=== PATIENT | male | born 1955 | race Caucasian/White ===

== ENCOUNTER 2017-04-17 09:25 | Inpatient (IN) ==
--- NOTE | 2017-04-17 09:52 | Emergency Department Report ---
SOB HPI - General Chief Complaint: Shortness of Breath/Dyspnea Stated Complaint: cp, soa Time Seen by Provider: 04/17/17 09:52 - Related Data Home Medications Medication Instructions Recorded Confirmed Gabapentin 300 mg PO TID #0 cap 06/19/15 04/17/17 Omeprazole 40 mg PO DAILY #0 cap 06/19/15 04/17/17 Albuterol/Ipratropium [Duoneb] 1 unit AEROSOL QID 04/17/17 04/17/17 Aspirin 81 mg PO DAILY 04/17/17 04/17/17 Atenolol [Tenormin] 25 mg PO DAILY 04/17/17 04/17/17 Citalopram [Celexa] 40 mg PO DAILY 04/17/17 04/17/17 Furosemide [Lasix] 20 mg PO DAILY 04/17/17 04/17/17 Hydrocodone/APAP 7.5/325 [[place] 1 tab PO BID 04/17/17 04/17/17 7.5/325] Itraconazole [Itraconazole] 200 mg PO BID 04/17/17 04/17/17 Metformin [Glucophage] 500 mg PO BIDWM 04/17/17 04/17/17 Nitroglycerin [Nitrostat] 0.4 mg SL Q5MIN3 PRN 04/17/17 04/17/17 Simvastatin [Simvastatin] 20 mg PO HS 04/17/17 04/17/17 buPROPion HCl [Bupropion HCl Sr] 150 mg PO BID 04/17/17 04/17/17 Allergies Allergy/AdvReac Type Severity Reaction Status Date / Time No Known Allergies Allergy Verified 04/17/17 10:12 [facility] Patient Stated Medical History Alzheimer's Disease Yes: "early per patient" Angina Yes Coronary Artery Disease Yes Hypertension Yes Myocardial Infarction Yes Chronic Obstructive Pulmonary Yes Disease (COPD) Sleep Apnea Yes Diabetes Mellitus Type 2 Yes Gastroesophageal Reflux Yes Disease Osteoarthritis Yes: DJD Other Musculoskeletal Yes: PERIPHERAL NEUROPATHY, FIBROMYALGIA Course Vital Signs Temperature 98.2 F 04/17/17 09:25 Pulse Rate 112 H 04/17/17 09:25 Respiratory Rate 15 04/17/17 09:25 Blood Pressure 138/92 H 04/17/17 09:25 Pulse Oximetry 68 L 04/17/17 09:25 Temperature 98.2 F 04/17/17 09:25 Pulse Rate 112 H 04/17/17 11:04 Respiratory Rate 27 H 04/17/17 11:04 Blood Pressure 130/69 04/17/17 11:04 Pulse Oximetry 90 04/17/17 11:04 Shortness of Breath/Dyspnea - Lab Data Result diagrams: 04/17/17 10:16 04/17/17 10:15 Lab Results 04/17/17 04/17/17 04/17/17 Range/Units 10:15 10:15 10:16 WBC 9.1 (4.5-11.0) T/MM3 RBC 3.99 L (4.50-5.90) M/MM3 Hgb 12.0 L (13.5-17.5) GM/DL Hct 40.7 L (41-53) % MCV 102.0 H (80-100) UM3 MCH 30.1 (26-34) UUG MCHC 29.5 L (31-37) GM/DL RDW Std Deviation 47.2 (36.9-50.2) FL Plt Count 189 (130-400) T/MM3 MPV 12.8 H (9.4-12.4) UM3 Immature Gran % (Auto) 0.4 (0.0-0.5) % Neut % (Auto) 84.5 H (33-66) % Lymph % (Auto) 8.8 L (23-45) % [place] % (Auto) 5.0 (0-9.0) % Eos % (Auto) 1.1 (0-4) % Baso % (Auto) 0.2 (0-2) % Neut # (Auto) 7.7 (1.8-7.7) T/MM3 Lymph # (Auto) 0.8 L (1-4.8) T/MM3 [place] # (Auto) 0.5 (0-0.8) T/MM3 Eos # (Auto) 0.1 (0-0.5) T/MM3 Baso # (Auto) 0.0 (0-0.2) T/MM3 Abs Immat Gran (auto) 0.04 H (0.00-0.03) T/MM3 D-Dimer 280 H (0-230) NG/ML Turbidity < 20 (0-20) Sodium 143 (134-144) MEQ/L Potassium 4.5 (3.6-5) MEQ/L Chloride 94 L (98-107) MEQ/L Carbon Dioxide 39 H (22-30) MEQ/L Anion Gap 10 (5-15) MEQ/L BUN 28.0 H (9-20) MG/DL Creatinine 0.9 (0.8-1.5) MG/DL GFR Calculation 86 BUN/Creatinine Ratio 31 H (6-26) RATIO Glucose 163 H (75-110) MG/DL Calculated Osmolality 285 H (261-280) MOSM/KG Calcium 9.1 (8.4-10.2) MG/DL Total Bilirubin 0.30 (0.20-1.30) MG/DL Icterus Index < 2 (0-7) AST 17 (17-59) U/L ALT 25 (21-72) U/L Alkaline Phosphatase 89 (38-126) U/L Troponin I 0.025 (0-0.12) ng/ml B-Natriuretic Peptide 253 H (0-175) pg/mL Total Protein 7.4 (6.3-8.2) G/DL Albumin 4.1 (3.5-5.0) G/DL Globulin 3.3 (2.4-3.6) G/DL Albumin/Globulin Ratio 1.2 (1.1-2.2) RATIO Specimen Hemolysis < 15 (0-25) Disposition Clinical Impression: Acute exacerbation of chronic obstructive airways disease Community acquired pneumonia Qualifiers: Laterality: left Lung location: unspecified part of lung Qualified Code(s): J18.9 - Pneumonia, unspecified organism Disposition: Discharged Home, Self-Care Condition: Stable Prescriptions: No Action Gabapentin 300 mg PO TID #0 cap Omeprazole 40 mg PO DAILY #0 cap Hydrocodone/APAP 7.5/325 [[place] 7.5/325] 1 tab PO BID Simvastatin [Simvastatin] 20 mg PO HS Itraconazole [Itraconazole] 200 mg PO BID Nitroglycerin [Nitrostat] 0.4 mg SL Q5MIN3 PRN PRN Reason: CHEST PAIN Albuterol/Ipratropium [Duoneb] 1 unit AEROSOL QID Metformin [Glucophage] 500 mg PO BIDWM Furosemide [Lasix] 20 mg PO DAILY buPROPion HCl [Bupropion HCl Sr] 150 mg PO BID Atenolol [Tenormin] 25 mg PO DAILY Aspirin 81 mg PO DAILY Citalopram [Celexa] 40 mg PO DAILY Referrals: Zak Odom MD [Family Provider] - Time of Disposition: 11:21 - Seen By: physician
[2017-04-17] MEDS ORDERED: ALBUTEROL/IPRATROPIUM 2.5mg-0.5mg/3ml NEB AEROSOL ONE (10:02)
--- OUTSIDE RECORDS SUMMARY | 2017-04-17 10:13 | External Medical Summary | CCD ---
:1955 Author Name JOSSY SEGOVIA Address [address] [facility] [address] [facility] Unavailable [place], [place] [id number] Care Team Providers Name Role Phone AYO SALGUERO Attending Physician Unavailable AYO SALGUERO Er Physician 1 Unavailable Vital Signs Vital Sign Value Unit Date/Time Recent/Initial? Weight Measured 328 lbs 03/07/2015 18:36 Initial VS Height 74 in 03/07/2015 18:36 Initial VS BMI (Body Mass 42.11 kg/m^2 03/07/2015 18:36 Initial VS Index) BSA (Body Surface 2.79 m^2 03/07/2015 18:36 Initial VS Area) Allergies Allergy Code Allergy Type Reaction Status No Known Drug 0 No known drug Active Allergies allergies Procedures Unknown or Not Available. History of Immunizations Unknown or Not Available. Problems Unknown or Not Available. Results Unknown or Not Available. Active Medications Unknown or Not Available. Medications Administered During Visit Unknown or Not Available. Encounters Unknown or Not Available. Social History Smoking Status Code Start Date End Date Current every day [id number] smoker Patient Decision Aids Unknown or Not Available. Discharge Instructions You were admitted to [facility] on 03/07/2015. You were discharged from [facility] on 03/07/2015. Should you have any questions prior to discharge, please contact a member of your healthcare team. If you have left the hospital and have any questions, please contact your primary care physician. Chief Complaint and Reason For Visit Unknown or Not Available. Function Status Unknown or Not Available. Plan of Care Unknown or Not Available. Referral/Transition of Care Unknown or Not Available.
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
--- OUTSIDE RECORDS SUMMARY | 2017-04-17 10:14 | External Medical Summary | Referral Summary ---
:1955 Author Organization [facility] Address [address] [place] [address] Care Team Providers Name Role Phone Zak Odom Primary Care Physician Unavailable Encounter [facility] [id number] Date(s): 03/07/15 - 03/08/15 [facility] [address] [place] [address] [phone] Discharge Disposition: 06-Home with Home Health Care Attending Physician: Oswald Walsh MD Admitting Physician: Oswald Walsh MD Vital Signs Most recent to oldest [Reference Range]: 1 Temperature Oral [35.8-37.3 degC] 36.2 degC (03/07/15 9:51 PM) Temperature Temporal Artery [36.3-37.8 degC] 37 degC (03/08/15 12:00 PM) Peripheral Pulse Rate [60-100 bpm] 101 bpm *HI* (03/07/15 9:51 PM) Heart Rate Monitored [60-100 bpm] 101 bpm *HI* (03/08/15 12:00 PM) Respiratory Rate [14-20 br/min] 16 br/min (03/08/15 8:54 AM) Blood Pressure [90-140/60-90 mmHg] 117/66 mmHg (03/08/15 12:00 PM) Mean Arterial Pressure, Cuff 77 mmHg (03/08/15 12:00 PM) SpO2 95 % (03/08/15 12:00 PM) Problem List Condition Effective Dates Status [...] At Risk for Activity Intolerance Plan of [id number] added automatically by system based on initiation of Risk for Injury Plan of [id number] added automatically by system based on initiation of Cardiac Output/Ineffective Cardiac Perfusion Plan of Alzu4Prkcumt added automatically by system based on initiation of Impaired Gas Exchange Plan of Otcn2Aqyjrgg added automatically by system based on initiation of Impaired Skin Integrity Plan of [id number] IN LEG [id number] added automatically by system based on initiation of Knowledge Deficit Plan of [id number] added automatically by system based on initiation of Self Care Deficit Plan of [id number] added automatically by system based on initiation [...] Refill(s) Start Date: 10/08/14 Status: Ordered Results Chemistry Most recent to oldest [Reference Range]: 1 Blood Glucose, Capillary [74-106 mg/dL] 179 mg/dL *HI* (03/08/15 10:18 AM) Immunizations No data available for this section Procedures Procedure Date Related Diagnosis Body Site Removal of pilonidal cyst Social History Social History Type Response Smoking Status Current every day smoker; Type: Cigarettes; Tobacco use per day : 1 Pack Assessment and Plan No data available for this section
--- NOTE | 2017-04-17 11:02 | XRay Report ---
INDICATION: Chest Pain PROCEDURE: CHEST 2-VIEWS UPRIGHT (PA & LAT) Encounter: Initial COMPARISON: June 25, 2015 FINDINGS: There is airspace opacity along the left heart border possibly within the lingula. This is difficult to confirm on the lateral view. The right lung appears clear. There is no pleural effusion or pneumothorax. The heart size, mediastinal contours and pulmonary vascularity are within normal limits. There is no significant skeletal abnormality. IMPRESSION: Lingular atelectasis or pneumonia. .
[2017-04-17] MEDS: CEFTRIAXONE 1 G in NS 100 ML IV SCH (11:38)
[2017-04-17] MEDS: SALINE FLUSH 10ml SYRINGE IVF PRN (11:39)
[2017-04-17] MEDS ORDERED: ALBUTEROL/IPRATROPIUM 2.5mg-0.5mg/3ml NEB AEROSOL PRN (12:03)
[2017-04-17] MEDS ORDERED: BISACODYL 10 MG SUPPOSITORY RECTALLY PRN (12:03)
[2017-04-17] MEDS ORDERED: ONDANSETRON 4 MG/2 ML INJECTION IVP PRN (12:03)
[2017-04-17] MEDS ORDERED: MENTHOL COUGH DROPS (RICOLA) MM PRN (12:03)
--- NOTE | 2017-04-17 12:13 | History & Physical Report ---
History of Present Illness Date: 04/17/17 Chief complaint: Sepsis, Pneumonia, COPD HPI: Chaz is a 61 yr old male who has been under the [place] care of Dr. Biswas. Patient has underlying COPD and chronically uses oxygen at 5 liters. He reports he has not felt well for approximately 1 month,however he has become acutely more short of breath over the last several days. He's noticed things "flying in his vision" accompanied with his increased shortness of breath. He feels at times he has had fevers and chills, however, cannot confirm this. Today he presented to the emergency room for acute evaluation and treatment. He was tachycardic on arrival to ER at 112, and tachypnea at 35 breathes per min. He was hypoxic and quite greater than 5 liters to maintain saturations. Initially was at 90% on 6 liters, however, then was placed on BiPAP. Chest xray revels lingular airspace opacity. ABG on 6 liters-pH 7.3, CO2 Ewy, pCO2 59, bicarbonate 46. Initial lactate was normal at 1.4. WBC count normal at 9.1, 84% neutrophils. Given worsening SIRS criteria , accompanied with increased hypoxia from baseline and probable pneumonia. The hospitalist services were contacted and accepted patient for inpatient admission for further evaluation and treatment. He requests to be a Full Code. Review of Systems All systems PM: 10-point ROS was reviewed, no additional remarkable complaints except - Constitutional Constitutional: Present: chills, fever(s) - EENMT Eyes: Present: as per HPI - Cardiovascular Cardiovascular: Present: dyspnea on exertion - Respiratory Respiratory: Present: dyspnea Past Medical History COPD-baseline oxygen 5 liters chronically Sol-bqnfagg-dcuxtorwz diabetes Hypertension Coronary artery disease Peripheral vascular disease GERD Peripheral neuropathy Fibromyalgia Sleep apnea Morbid obesity Surgical History: No surgical hx other than pilonidal cyst Family History Updates: Mother and siblings with CVA. Father from an CA - Social History Smoking status: Current every day smoker Substance use type: does not use Alcohol intake frequency: does not drink Household members: spouse Current residence: Apartment/Private Home Social history: Primary care provider, Dr. Ricardo Odom Medications Home Medications Medication Instructions Recorded Confirmed Type Gabapentin 300 mg PO TID #0 cap 06/19/15 04/17/17 History Omeprazole 40 mg PO DAILY #0 cap 06/19/15 04/17/17 History Albuterol/Ipratropium [Duoneb] 1 unit AEROSOL QID 04/17/17 04/17/17 History Aspirin 81 mg PO DAILY 04/17/17 04/17/17 History Atenolol [Tenormin] 25 mg PO DAILY 04/17/17 04/17/17 History Citalopram [Celexa] 40 mg PO DAILY 04/17/17 04/17/17 History Furosemide [Lasix] 20 mg PO DAILY 04/17/17 04/17/17 History Hydrocodone/APAP 7.5/325 [[place] 1 tab PO BID 04/17/17 04/17/17 History 7.5/325] Itraconazole [Itraconazole] 200 mg PO BID 04/17/17 04/17/17 History Metformin [Glucophage] 500 mg PO BIDWM 04/17/17 04/17/17 History Nitroglycerin [Nitrostat] 0.4 mg SL Q5MIN3 PRN 04/17/17 04/17/17 History Simvastatin [Simvastatin] 20 mg PO HS 04/17/17 04/17/17 History buPROPion HCl [Bupropion HCl Sr] 150 mg PO BID 04/17/17 04/17/17 History Allergies Allergy/AdvReac Type Severity Reaction Status Date / Time No Known Allergies Allergy Verified 04/17/17 10:12 Exam Vital Signs: Temperature 98.2 F 04/17/17 09:25 Pulse Rate 112 H 04/17/17 11:04 Respiratory Rate 27 H 04/17/17 11:04 Blood Pressure 130/69 04/17/17 11:04 Pulse Oximetry 90 04/17/17 11:04 - Constitutional Present: mild distress, well nourished, well developed - Routine HEENT Exam Eye: Present: EOMI ENT: Present: mucous membranes moist, dentition normal - Routine Respiratory Exam Present: diminished air movement - Routine Cardiovascular Exam Present: RRR, S1, S2. Absent: murmur - Routine Abdominal Exam Present: soft, normoactive bowel sounds, non distended. Absent: tenderness - Routine Extremities Exam Present: edema - Routine Skin Exam Present: intact, dry, warm - Routine Neurological Exam Present: alert, oriented X3, CN II-XII intact, moving all extremities - Routine Psychiatric Exam Present: cooperative Results - Labs CBC & Chem 7: 04/17/17 10:16 04/17/17 10:15 Microbiology Results: Microbiology 04/17/17 11:23 Peripheral/Iv Start Blood Culture - Preliminary Culture Initiated - Results Pending 04/17/17 11:27 Peripheral/Iv Start Blood Culture - Preliminary Culture Initiated - Results Pending Assessment and Plan (1) Sepsis Current visit: Yes Status: Acute (2) Community acquired pneumonia Current visit: Yes Status: Acute Assessment and Plan: Impression Sepsis- SIRS criteria- Tachycardia, tachypnea, suspected pneumonia Community acquired pneumonia Hypercapnic/Hypoxic respiratory failure -baseline 5 liters, now requiring > 6L + BiPAP COPD exacerbation HTN DM Coronary artery disease Peripheral vascular disease/neuropathy GERD Fibromyalgia Tobacco dependence Morbid obesity Plan Admit as a inpatient under the care of Dr Lopez for sepsis, CAD and increased hypoxia Sepsis work up initiated in the ER. Initial Lactate was normal. Blood cultures were obtained and he was started on Rocephin for antimicrobial coverage. Will also add IV Azithromycin to cover CAP. Scheduled Duoneb and Pulmicort Nebs scheduled Given ABG and presence of Hypercapnic respiratory failure requiring greater than [address] patient on Bi-pap. May use Ativan as needed with bipap. Obtain respiratory panel to rule out respiratory viruses Monitor on cardiac telemetry given tachycardia Monitor Accu-Cheks, encourage carb consistent diet. Will obtain a hemoglobin A1c on admission Lovenox and SCDs to bilateral lower ext for DVT prophylaxis Check CBC and BMP tomorrow morning to follow blood counts, renal function and electrolytes Patient does wish to be a full code and this orders written Case discussed with attending, Dr. Lopez. At time of discharge medical care will return to primary care provider, Dr. Biswas DVT Prophylaxis: SCD's, Lovenox Resuscitation Status: Full Code - Physician Narrative Physician: Michael Lopez MD Narrative: Date: 04/17/17 Time: 1520 Have independently interviewed and examined pt. Chart reviewed. Case discussed with ED physician and my [employer]. Care plan developed with my supervision; agree with above. Increasing difficulty breathing since [place], very somnolent and not able to interact with others. Resistant at that time to be evaluated. Still having significant cough and congestion, sputum thick and hard to clear. Not getting air in well. Increased nasal congestion. Appetite stable. No diarrhea-stools slow at times. With persistent breathing difficulty, present to ED. CXR showing pneumonia. pCO2 elevated. Patient admitted for respiratory treatment. Lungs: decreased, very little air movement. CV: regular AB: soft obese BS decreased MSE: somnolent, will answer short questions. Plan: Inpatient admission secondary to acute hypercapnic/hypoxic respiratory failure. BIPAP to help respiratory support. Rocephin/azithromycin for pulm coverage of infiltrate. Solu-Medrol to help decrease pulmonary inflammation and reactivity. Neb treatments of DuoNeb and budesonide. Mucinex DM and acapella. Will consult with Dr Ashby for pulmonary evaluation as likely patient would benefit from home ventilatory. Monitor sugars - anticipate elevation due to steroids and his acute illness. SCD and Lovenox for DVT prevention. Monitor lab. Care to return to Dr Odom at time of discharge from [facility]. Hospital Course Summary Disclaimer: The visit summary below is not to be considered part of the above Progress Note. Hospital Course: Impression Sepsis- SIRS criteria- Tachycardia, tachypnea, suspected pneumonia Community acquired pneumonia Hypercapnic respiratory failure -baseline 5 liters, now requiring > 6L + BiPAP COPD exacerbation HTN DM Coronary artery disease Peripheral vascular disease/neuropathy GERD Fibromyalgia Tobacco dependence Morbid obesity Plan Admit as a inpatient under the care of Dr Lopez for sepsis, CAD and increased hypoxia Sepsis work up initiated in the ER. Initial Lactate was normal. Blood cultures were obtained and he was started on Rocephin for antimicrobial coverage. Will also add IV Azithromycin to cover CAP. Scheduled Duoneb and Pulmicort Nebs scheduled Given ABG and presence of Hypercapnic respiratory failure requiring greater than [address] patient on Bi-pap. May use Ativan as needed with bipap. Obtain respiratory panel to rule out respiratory viruses Monitor on cardiac telemetry given tachycardia Monitor Accu-Cheks, encourage carb consistent diet. Will obtain a hemoglobin A1c on admission Lovenox and SCDs to bilateral lower ext for DVT prophylaxis Check CBC and BMP tomorrow morning to follow blood counts, renal function and electrolytes Patient does wish to be a full code and this orders written Case discussed with attending, Dr. Lopez. At time of discharge medical care will return to primary care provider, Dr. Biswas
[2017-04-17 12:19] VITALS: BMI 40.2
[2017-04-17] MEDS ORDERED: FALL RISK - PHARMACY CONSULT MC ONE (12:19)
[2017-04-17] MEDS: ENOXAPARIN 40 MG/0.4 ML INJECTION SQ SCH (12:50)
[2017-04-17] MEDS: AZITHROMYCIN IV 500 MG in NS 250ml 250 ML IV SCH (13:16)
[2017-04-17] MEDS: ALBUTEROL/IPRATROPIUM 2.5mg-0.5mg/3ml NEB AEROSOL SCH (14:58)
[2017-04-17] MEDS ORDERED: MORPHINE SULFATE 2mg INJECTION IVP PRN (15:33)
[2017-04-17] MEDS: METHYLPREDNISOLONE SOD SUCC 125mg/2ml INJECTION IVP SCH ×2 (16:21→20:58)
[2017-04-17] MEDS: GABAPENTIN 300 MG CAPSULE PO SCH ×2 (16:21→20:58)
--- NOTE | 2017-04-17 18:28 | Pulmonology Consult Note ---
<SandraAriane D - Last Filed: 04/17/17 18:29> History of Present Illness Consult date: 04/17/17 Requesting physician: Michael Lopez Reason for consult: dyspnea, hypoxemia Chief complaint: SOB, CP History of present illness: This is a 61 yo male with a Hx of COPD uses O2 at 5L per NC, ANGELLA, DM and morbid obesity who is very noncompliant in his therapies. Family states he has not been feeling well for the past month but noticed increased SOB, CP and sleepiness here recently. Family states he has been having some hallucinations lately and more sleepy. He presented to the [facility] ER secondary to his complaints. On admit he was noted with hypoxia, tachycardia and was tachypneic. O2 increased to 6L but was started on Bipap for ABG of 7.37/80/59. WBC normal 9.1, Cr normal 0.9, CXR with LLL infiltrate, cardiomegaly and congestion. Currently he is on the floor and refuses to use bipap and has been noncompliant with most therapies. We have been consulted for his respiratory failure and appreciate the consult. Review of Systems - Constitutional Constitutional: Present: fatigue - EENT Eyes: Present: as per HPI Ears: Present: as per HPI Nose: Present: as per HPI - Cardiovascular Cardiovascular: Present: chest pain - Respiratory Respiratory: Present: cough, dyspnea - Gastrointestinal Gastrointestinal: Present: as per HPI - Genitourinary Genitourinary: Present: as per HPI - Musculoskeletal Musculoskeletal: Present: as per HPI - Integumentary/Breasts Integumentary: Present: as per HPI - Neurological Neurological: Present: as per HPI - Psychiatric Psychiatric: Present: as per HPI - Endocrine Endocrine: Present: as per HPI - Hematologic/Lymphatic Hematologic/Lymphatic: Present: as per HPI - Allergic/Immunologic Allergic/Immunologic: Present: as per HPI PFS Patient Stated Medical History Alzheimer's Disease Yes: "early per patient" Angina Yes Coronary Artery Disease Yes Hypertension Yes Myocardial Infarction Yes Chronic Obstructive Pulmonary Yes Disease (COPD) Sleep Apnea Yes Diabetes Mellitus Type 2 Yes Gastroesophageal Reflux Yes Disease Osteoarthritis Yes: DJD Other Musculoskeletal Yes: PERIPHERAL NEUROPATHY, FIBROMYALGIA Surgical History: No surgical hx other than pilonidal cyst - Social History Smoking status: Current every day smoker Housing: house Household members: spouse Current residence: Apartment/Private Home Medications Home Medications Medication Instructions Recorded Confirmed Type Gabapentin 300 mg PO TID #0 cap 06/19/15 04/17/17 History Omeprazole 40 mg PO DAILY #0 cap 06/19/15 04/17/17 History Albuterol/Ipratropium [Duoneb] 1 unit AEROSOL QID 04/17/17 04/17/17 History Aspirin 81 mg PO DAILY 04/17/17 04/17/17 History Atenolol [Tenormin] 25 mg PO DAILY 04/17/17 04/17/17 History Citalopram [Celexa] 40 mg PO DAILY 04/17/17 04/17/17 History Furosemide [Lasix] 20 mg PO DAILY 04/17/17 04/17/17 History Hydrocodone/APAP 7.5/325 [[place] 1 tab PO BID 04/17/17 04/17/17 History 7.5/325] Itraconazole [Itraconazole] 200 mg PO BID 04/17/17 04/17/17 History Metformin [Glucophage] 500 mg PO BIDWM 04/17/17 04/17/17 History Nitroglycerin [Nitrostat] 0.4 mg SL Q5MIN3 PRN 04/17/17 04/17/17 History Simvastatin [Simvastatin] 20 mg PO HS 04/17/17 04/17/17 History buPROPion HCl [Bupropion HCl Sr] 150 mg PO BID 04/17/17 04/17/17 History Allergies Allergy/AdvReac Type Severity Reaction Status Date / Time No Known Allergies Allergy Verified 04/17/17 10:12 Exam Vital signs: Temperature 97.5 F 04/17/17 11:48 Pulse Rate 104 H 04/17/17 15:46 Respiratory Rate 22 04/17/17 15:46 Blood Pressure 141/62 H 04/17/17 12:00 Pulse Oximetry 92 04/17/17 15:46 - Constitutional no acute distress, morbidly obese - Routine HEENT Exam Head: Present: normocephalic, atraumatic Eye: Present: EOMI, PERRL ENT: Present: mucous membranes moist - Routine Neck Exam Present: supple, full ROM, trachea midline - Routine Respiratory Exam Present: decreased breath sounds, rhonchi - Routine Cardiovascular Exam Present: RRR, S1, S2, no murmur - Routine Abdominal Exam Present: soft, normoactive bowel sounds - Routine Extremities Exam Present: no edema, non tender, full ROM - Routine Back/Spine/Pelvis Exam Back/Spine: Present: full ROM - Routine Skin Exam Present: intact, dry - Routine Neurological Exam Present: CN II-XII intact sleepy but wakes and answers questions to voice - Routine Psychiatric Exam Present: normal affect, normal thought process Results - Laboratory Findings CBC and BMP: 04/17/17 10:16 04/17/17 10:15 ABG ABG pH 7.370 (7.350-7.450) 04/17/17 10:30 ABG pCO2 80 MMHG (34-45) H* 04/17/17 10:30 ABG pO2 59 MMHG (80-100) L 04/17/17 10:30 ABG O2 Saturation 89.0 % (95.0-98.0) L 04/17/17 10:30 PT/INR, D-dimer D-Dimer 280 NG/ML (0-230) H 04/17/17 10:15 Abnormal lab findings: Abnormal Labs 04/17/17 16:16 Plasma Lactate 3.0 H - Diagnostic Findings Chest x-ray: image reviewed (as noted in HPI) Assessment and Plan - Assessment and Plan Acute on Chronic Hypoxic Hypercapnic Respiratory Failure COPD exacerbation CAP ANGELLA/OHS Morbid Obesity DM Pt currently on 6L O2 per [place], sats stable. Wanting pressures decreased to tarik Bipap. Changed bipap to 16 10/5, Vt 400's. Instructed to use unless eating, if unable to comply needs to use at least 4 hrs tonight. Cont on Bt's with pulmicort BID, A/A QID and solumedrol 125 q6. CXR with LLL infiltrate on Rocephin/azithro for CAP. Will follow closely, would likely need a home vent to mask at discharge but wont order unless he will comply with usage. - Time Spent With Patient Total time spent is greater than 50% in coordination of care (as documented) at patient's floor/unit and/or counseling patient: less than 15 minutes <Donny Ashby - Last Filed: 04/18/17 18:26> [facility] Patient Stated Medical History Alzheimer's Disease Yes: "early per patient" Angina Yes Coronary Artery Disease Yes Hypertension Yes Myocardial Infarction Yes Chronic Obstructive Pulmonary Yes Disease (COPD) Sleep Apnea Yes Diabetes Mellitus Type 2 Yes Gastroesophageal Reflux Yes Disease Osteoarthritis Yes: DJD Other Musculoskeletal Yes: PERIPHERAL NEUROPATHY, FIBROMYALGIA Exam Vital signs: Temperature 97.8 F 04/18/17 15:21 Pulse Rate 103 H 04/18/17 15:21 Respiratory Rate 20 04/18/17 15:21 Blood Pressure 138/71 04/18/17 15:21 Pulse Oximetry 94 04/18/17 15:21 Results - Laboratory Findings CBC and BMP: 04/18/17 05:09 04/18/17 05:09 ABG ABG pH 7.370 (7.350-7.450) 04/17/17 10:30 ABG pCO2 80 MMHG (34-45) H* 04/17/17 10:30 ABG pO2 59 MMHG (80-100) L 04/17/17 10:30 ABG O2 Saturation 89.0 % (95.0-98.0) L 04/17/17 10:30 PT/INR, D-dimer D-Dimer 280 NG/ML (0-230) H 04/17/17 10:15 Abnormal lab findings: Abnormal Labs 04/17/17 04/18/17 04/18/17 16:16 05:09 05:09 RBC 3.72 L Hgb 11.3 L Hct 36.8 L MCHC 30.7 L MPV 13.5 H Neutrophils % (Manual) 87.0 H Lymphocytes % (Manual) 10.0 L Lymphocytes # (Manual) 0.6 L Carbon Dioxide 38 H BUN 25.0 H Creatinine 0.7 L D BUN/Creatinine Ratio 36 H Glucose 188 H Calculated Osmolality 284 H Plasma Lactate 3.0 H Specimen Hemolysis 35 H 04/18/17 04/18/17 11:43 15:53 RBC Hgb Hct MCHC MPV Neutrophils % (Manual) Lymphocytes % (Manual) Lymphocytes # (Manual) Carbon Dioxide BUN Creatinine BUN/Creatinine Ratio Glucose Calculated Osmolality Plasma Lactate 3.9 H 2.5 H Specimen Hemolysis Assessment and Plan (1) Acute and chronic respiratory failure with hypercapnia Status: Acute Assessment and plan: Currently tolerating NIPPV> Baseline PCO2 to 80. Patient meets criteria for home ventilation by mask for chronic hypercapnic respiratory failure in the setting of COPD. Use of NIPPV vent -to -mask would improve his hypercapnia and reduce the risk hospitalization and . He has been non-compliant with these types of modalities in the past. Current Visit: Yes (2) Acute exacerbation of chronic obstructive airways disease Status: Acute Assessment and plan: IV corticosteroids and nebulized bronchodilators. Use O2 at 6 lpm to maintain sat >90%. Recommend OP PFT and followup for optimization of regimen per GOLD guidelines Current Visit: Yes (3) Community acquired pneumonia Status: Acute Assessment and plan: Blood cultures are neg to date. He is being managed on IV [place], Azithromycin Unable to produce sputum for culture Recommend repeat of CXR. If lingular infiltrate is not improving I recommend CT chest. Current Visit: Yes - Time Spent With Patient Total time spent is greater than 50% in coordination of care (as documented) at patient's floor/unit and/or counseling patient: 25 - 35 minutes
[2017-04-17] MEDS: METFORMIN 500 MG TABLET PO SCH (18:37)
[2017-04-17] MEDS: SALINE 0.65% NASAL SPRAY 44 ML BOTTLE EA NOSTRIL SCH ×2 (18:37→20:57)
[2017-04-17] MEDS: BUDESONIDE INH.SOLN 0.5mg/2ml NEB AEROSOL SCH (20:27)
[2017-04-17] MEDS: BuPROPion SR 150mg (12HR) TABLET PO SCH (20:58)
[2017-04-17] MEDS: SIMVASTATIN 20 MG TABLET PO SCH (20:58)
[2017-04-17] MEDS: GUAIFENESIN/D-METHORPHAN 600mg/30mg TABLET PO SCH (20:58)
[2017-04-18] MEDS: ALBUTEROL/IPRATROPIUM 2.5mg-0.5mg/3ml NEB AEROSOL SCH ×5 (02:12→19:17)
[2017-04-18] MEDS: METHYLPREDNISOLONE SOD SUCC 125mg/2ml INJECTION IVP SCH ×4 (03:34→21:50)
[2017-04-18] MEDS: INSULIN REGULAR, HUMAN 100 UNIT/ML INJECTION SQ PRN ×3 (06:27→22:02)
[2017-04-18] MEDS: OMEPRAZOLE 20 MG CAPSULE PO SCH (06:27)
[2017-04-18] MEDS: BUDESONIDE INH.SOLN 0.5mg/2ml NEB AEROSOL SCH ×2 (07:57→19:17)
[2017-04-18] MEDS: GABAPENTIN 300 MG CAPSULE PO SCH ×3 (08:34→21:50)
[2017-04-18] MEDS: METFORMIN 500 MG TABLET PO SCH (08:34)
[2017-04-18] MEDS: CITALOPRAM 40 MG TABLET PO SCH (08:34)
[2017-04-18] MEDS: BuPROPion SR 150mg (12HR) TABLET PO SCH ×2 (08:35→21:50)
[2017-04-18] MEDS: SALINE 0.65% NASAL SPRAY 44 ML BOTTLE EA NOSTRIL SCH ×4 (08:35→21:52)
[2017-04-18] MEDS: ENOXAPARIN 40 MG/0.4 ML INJECTION SQ SCH (08:35)
[2017-04-18] MEDS: GUAIFENESIN/D-METHORPHAN 600mg/30mg TABLET PO SCH ×2 (08:35→21:51)
[2017-04-18] MEDS: ASPIRIN 81 MG CHEWABLE TABLET PO SCH (08:35)
[2017-04-18] MEDS: SALINE FLUSH 10ml SYRINGE IVF PRN ×2 (09:08→16:34)
--- NOTE | 2017-04-18 11:06 | Progress Note ---
- Date 04/18/17 Subjective: Howard is seen today in follow up. He is up in the chair on 6 liters of oxygen by n/c. He continues to have difficulty using the bipap. He states he used it for 2 hours and then 20 minutes overnight. We discussed goal of at least 4 hours at night. Denies having pain. Poor hygiene and body odor presence. Noted toenails are long and curling. Objective Vital signs: Temperature 96.2 F L 04/18/17 07:27 Pulse Rate 81 04/18/17 07:27 Respiratory Rate 20 04/18/17 07:27 Blood Pressure 143/76 H 04/18/17 07:27 Pulse Oximetry 95 04/18/17 07:27 Height/Weight/BMI: Height 1.88 m Weight 142.12 kg Body Mass Index 40.2 - Constitutional Present: no acute distress, well nourished, well developed - Routine HEENT Exam Eye: Present: EOMI ENT: Present: mucous membranes moist, dentition normal - Routine Respiratory Exam Present: CTA bilaterally. Absent: wheezes Comments: diminished bases - Routine Cardiovascular Exam Present: RRR, S1, S2. Absent: murmur - Routine Abdominal Exam Present: soft, normoactive bowel sounds, non distended. Absent: tenderness - Routine Extremities Exam Present: normal capillary refill - Routine Skin Exam Present: dry, warm - Routine Neurological Exam Present: alert, oriented X3, CN II-XII intact - Routine Lymphatic Exam Lymphatic: Absent: adenopathy - Routine Psychiatric Exam Present: normal affect Results - Labs CBC & Chem 7: 04/18/17 05:09 04/18/17 05:09 Microbiology Results: Microbiology 04/17/17 11:23 Peripheral/Iv Start Blood Culture - Preliminary Culture Initiated - Results Pending 04/17/17 11:27 Peripheral/Iv Start Blood Culture - Preliminary Culture Initiated - Results Pending Assessment and Plan (1) Community acquired pneumonia Current visit: Yes Status: Acute (2) Sepsis Current visit: Yes Status: Acute Assessment and Plan: Impression Sepsis- SIRS criteria- Tachycardia, tachypnea, suspected pneumonia Community acquired pneumonia Hypercapnic/Hypoxic respiratory failure -baseline 5 liters, now requiring > 6L + BiPAP COPD exacerbation Poor personal hygiene HTN DM Coronary artery disease Peripheral vascular disease/neuropathy GERD Fibromyalgia Tobacco dependence Morbid obesity Plan Venous lactated did increase to 3.0 confirming sepsis process. Will recheck to assure lactate is trending down as per sepsis guidelines Continue with Azithromycin and Rocephin. Preliminary Blood cultures remain negative. Appreciate pulmonary consultation by Dr Ashby. Encourage use of Bipap. Scheduled Duoneb and Pulmicort Nebs scheduled Monitor Accu-Cheks,Fasting BGM this morning was 188. Encourage carb consistent diet. A1 C on admission 6.4. Overall personal hygiene is poor. Lovenox and SCDs to bilateral lower ext for DVT prophylaxis Follow daily CBC and BMP to monitor blood counts, renal function and electrolytes John Will add lisinopril 10mg nightly to help BP control. Hold metformin due to elevation of lactic acid. Most likely lactic acid elevation due to metformin and not sepsis. DVT Prophylaxis: SCD's, Lovenox Resuscitation Status: Full Code - Time spent with patient Time with patient PN: 25 minutes - Physician Narrative Physician: Michael Lopez MD Narrative: Date: 04/18/17 Time: 1505 Have independently interviewed and examined pt. Chart reviewed. Case discussed with CM, RT, and my HELPER DRIVER. Care plan developed with my supervision; agree with above. Feels breathing is improving. Educated on Acapella use and finds it does help loosen up his secretions. Mobilizing sputum. Less SOA. Working on using BiPAP more-able to wear it longer at a time. Working on not smoking. Eating well. No ab pain. Lungs: decreased, little air movement. CV: regular AB: soft obese nt MSE: awake alert Plan: Continue with Rocephin/azithromycin for antimicrobial coverage. Will continue with Solu-Medrol at 125mg IV q 6hr to decrease inflammation. Encourage continued use of acapella to help loosen his secretions; I'm encouraged he feels it is helpful. Stressed the importance of BiPAP to help his respiratory status. With blood pressure showing elevation and underlying DM, will start lisinopril 10mg at night. Will Hold metformin due to increased lactic acid - suspect lactic acid elevation due to metformin use and not sepsis. Continue with supportive care. Hospital Course Summary Disclaimer: The visit summary below is not to be considered part of the above Progress Note. Hospital Course: Impression Sepsis- SIRS criteria- Tachycardia, tachypnea, suspected pneumonia Community acquired pneumonia Hypercapnic respiratory failure -baseline 5 liters, now requiring > 6L + BiPAP COPD exacerbation HTN DM Coronary artery disease Peripheral vascular disease/neuropathy GERD Fibromyalgia Tobacco dependence Morbid obesity Plan Admit as a inpatient under the care of Dr Lopez for sepsis, CAD and increased hypoxia Sepsis work up initiated in the ER. Initial Lactate was normal. Blood cultures were obtained and he was started on Rocephin for antimicrobial coverage. Will also add IV Azithromycin to cover CAP. Scheduled Duoneb and Pulmicort Nebs scheduled Given ABG and presence of Hypercapnic respiratory failure requiring greater than [address] patient on Bi-pap. May use Ativan as needed with bipap. Obtain respiratory panel to rule out respiratory viruses Monitor on cardiac telemetry given tachycardia Monitor Accu-Cheks, encourage carb consistent diet. Will obtain a hemoglobin A1c on admission Lovenox and SCDs to bilateral lower ext for DVT prophylaxis Check CBC and BMP tomorrow morning to follow blood counts, renal function and electrolytes Patient does wish to be a full code and this orders written Case discussed with attending, Dr. Lopez. At time of discharge medical care will return to primary care provider, Dr. Biswas 04/18/17 Venous lactated did increase to 3.0 confirming sepsis process. Will recheck to assure lactate is trending down as per sepsis guidelines Continue with Azithromycin and Rocephin. Preliminary Blood cultures remain negative. Appreciate pulmonary consultation by Dr Ashby. Encourage use of Bipap. Scheduled Duoneb and Pulmicort Nebs scheduled Monitor Accu-Cheks,Fasting BGM this morning was 188. Encourage carb consistent diet. A1 C on admission 6.4. Overall personal hygiene is poor. Lovenox and SCDs to bilateral lower ext for DVT prophylaxis Follow daily CBC and BMP to monitor blood counts, renal function and electrolytes
[2017-04-18] MEDS: CEFTRIAXONE 1 G in NS 100 ML IV SCH ×2 (11:45→12:39)
[2017-04-18] MEDS: AZITHROMYCIN IV 500 MG in NS 250ml 250 ML IV SCH (13:15)
[2017-04-18] MEDS: LISINOPRIL 10 MG TABLET PO SCH (21:50)
[2017-04-18] MEDS: SIMVASTATIN 20 MG TABLET PO SCH (21:50)
[2017-04-19] MEDS: METHYLPREDNISOLONE SOD SUCC 125mg/2ml INJECTION IVP SCH ×4 (03:07→21:26)
[2017-04-19] MEDS: INSULIN REGULAR, HUMAN 100 UNIT/ML INJECTION SQ PRN ×4 (06:16→21:27)
[2017-04-19] MEDS: OMEPRAZOLE 20 MG CAPSULE PO SCH (06:17)
[2017-04-19] MEDS: BUDESONIDE INH.SOLN 0.5mg/2ml NEB AEROSOL SCH ×2 (08:20→20:27)
[2017-04-19] MEDS: ALBUTEROL/IPRATROPIUM 2.5mg-0.5mg/3ml NEB AEROSOL SCH ×4 (08:20→20:27)
[2017-04-19] MEDS: SALINE FLUSH 10ml SYRINGE IVF PRN (09:08)
[2017-04-19] MEDS: PROMETHAZINE/CODEINE ORAL LIQUID 5ml PO PRN (09:09)
[2017-04-19] MEDS: ENOXAPARIN 40 MG/0.4 ML INJECTION SQ SCH (09:09)
[2017-04-19] MEDS: CITALOPRAM 40 MG TABLET PO SCH (09:10)
[2017-04-19] MEDS: SALINE 0.65% NASAL SPRAY 44 ML BOTTLE EA NOSTRIL SCH ×4 (09:10→21:26)
[2017-04-19] MEDS: BuPROPion SR 150mg (12HR) TABLET PO SCH ×2 (09:10→21:24)
[2017-04-19] MEDS: ASPIRIN 81 MG CHEWABLE TABLET PO SCH (09:10)
[2017-04-19] MEDS: GUAIFENESIN/D-METHORPHAN 600mg/30mg TABLET PO SCH ×2 (09:10→21:24)
[2017-04-19] MEDS: GABAPENTIN 300 MG CAPSULE PO SCH ×3 (09:10→21:24)
[2017-04-19] MEDS: CEFTRIAXONE 1 G in NS 100 ML IV SCH (11:20)
--- NOTE | 2017-04-19 11:51 | Progress Note ---
- Date 04/19/17 Subjective: Chaz is seen today in follow up, he continues to require 6 liters of oxygen. He reports has used Bipap 2 hours today. Has been more aggressive using acapella and is not having increased cough production. Appetite good. Denies having pain. Continued poor hygiene. Objective Vital signs: Temperature 98.1 F 04/19/17 08:33 Pulse Rate 96 04/19/17 08:33 Respiratory Rate 22 04/19/17 08:33 Blood Pressure 161/72 H 04/19/17 08:33 Pulse Oximetry 94 04/19/17 08:33 Height/Weight/BMI: Height 1.88 m Weight 140.9 kg Body Mass Index 40.2 - Constitutional Present: no acute distress, well nourished, well developed - Routine HEENT Exam Eye: Present: EOMI ENT: Present: mucous membranes moist, dentition normal - Routine Respiratory Exam Present: CTA bilaterally. Absent: wheezes - Routine Cardiovascular Exam Present: RRR, S1, S2. Absent: murmur - Routine Abdominal Exam Present: soft, normoactive bowel sounds, non distended. Absent: tenderness - Routine Extremities Exam Present: edema Comments: chronic lower ext vascular disease - Routine Skin Exam Present: intact, dry, warm - Routine Neurological Exam Present: alert, oriented X3, CN II-XII intact - Routine Lymphatic Exam Lymphatic: Absent: adenopathy - Routine Psychiatric Exam Present: cooperative Results - Labs CBC & Chem 7: 04/19/17 04:54 04/19/17 04:54 Microbiology Results: Microbiology 04/17/17 11:23 Peripheral/Iv Start Blood Culture - Preliminary No Growth After 2 Days 04/17/17 11:27 Peripheral/Iv Start Blood Culture - Preliminary No Growth After 2 Days Assessment and Plan (1) Community acquired pneumonia Current visit: Yes Status: Acute (2) Sepsis Current visit: Yes Status: Acute Assessment and Plan: Impression Sepsis- SIRS criteria- Tachycardia, tachypnea, suspected pneumonia Community acquired pneumonia Hypercapnic/Hypoxic respiratory failure -baseline 5 liters, now requiring > 6L + BiPAP COPD exacerbation Poor personal hygiene HTN DM Coronary artery disease Peripheral vascular disease/neuropathy GERD Fibromyalgia Tobacco dependence Morbid obesity Plan Continue with Azithromycin and Rocephin. Preliminary Blood cultures remain negative. Appreciate pulmonary consultation by Dr Ashby. Encourage use of Bipap. Scheduled Duoneb and Pulmicort Nebs scheduled. Recheck Chest xray today as recommended by Dr Ashby Given continued increase in lactate Metformin was placed on hold. Lactate did trend down Continue to monitor Accu-Cheks,Fasting BGM this morning was 188. Monitor BP and renal function on added Lisinopril Overall personal hygiene is poor. Lovenox and SCDs to bilateral lower ext for DVT prophylaxis DVT Prophylaxis: SCD's, Lovenox Resuscitation Status: Full Code - Time spent with patient Time with patient PN: 25 minutes - Physician Narrative Physician: Michael Lopez MD Narrative: Date: 04/19/17 Time: 1147 Have independently interviewed and examined pt. Chart reviewed. Case discussed with my [employer]A DEVELOPMENT MANAGER. Care plan developed with my supervision; agree with above. Dong about the same. Feels breathing a little better. Less congestion. Tolerating BIPAP-trying to wear for longer time intervals. Eating well. No f/c. Lungs: decreased air movement-slightly improved from yesterday. CV: regular AB : soft nt/nd MSE: awake alert Plan: Continue with Rocephin and azithromycin. Continue Solu-Medrol and neb treatment. Encourage BIPAP use. Clinically making slow gains. Hospital Course Summary Disclaimer: The visit summary below is not to be considered part of the above Progress Note. Hospital Course: Impression Sepsis- SIRS criteria- Tachycardia, tachypnea, suspected pneumonia Community acquired pneumonia Hypercapnic respiratory failure -baseline 5 liters, now requiring > 6L + BiPAP COPD exacerbation HTN DM Coronary artery disease Peripheral vascular disease/neuropathy GERD Fibromyalgia Tobacco dependence Morbid obesity Plan Admit as a inpatient under the care of Dr Lopez for sepsis, CAD and increased hypoxia Sepsis work up initiated in the ER. Initial Lactate was normal. Blood cultures were obtained and he was started on Rocephin for antimicrobial coverage. Will also add IV Azithromycin to cover CAP. Scheduled Duoneb and Pulmicort Nebs scheduled Given ABG and presence of Hypercapnic respiratory failure requiring greater than [address] patient on Bi-pap. May use Ativan as needed with bipap. Obtain respiratory panel to rule out respiratory viruses Monitor on cardiac telemetry given tachycardia Monitor Accu-Cheks, encourage carb consistent diet. Will obtain a hemoglobin A1c on admission Lovenox and SCDs to bilateral lower ext for DVT prophylaxis Check CBC and BMP tomorrow morning to follow blood counts, renal function and electrolytes Patient does wish to be a full code and this orders written Case discussed with attending, Dr. Lopez. At time of discharge medical care will return to primary care provider, Dr. Biswas 04/18/17 Venous lactated did increase to 3.0 confirming sepsis process. Will recheck to assure lactate is trending down as per sepsis guidelines Continue with Azithromycin and Rocephin. Preliminary Blood cultures remain negative. Appreciate pulmonary consultation by Dr Ashby. Encourage use of Bipap. Scheduled Duoneb and Pulmicort Nebs scheduled Monitor Accu-Cheks,Fasting BGM this morning was 188. Encourage carb consistent diet. A1 C on admission 6.4. Overall personal hygiene is poor. Lovenox and SCDs to bilateral lower ext for DVT prophylaxis Follow daily CBC and BMP to monitor blood counts, renal function and electrolytes 04/19- Continue with Azithromycin and Rocephin. Appreciate pulmonary consultation by Dr Ashby, Encourage use of Bipap, Scheduled Duoneb and Pulmicort Nebs scheduled. Recheck CXR today. Montior BGM as metformin was placed on hold due to elevated lactate. Monitor blood pressure and renal function given addition of lisinopril
[2017-04-19] MEDS: AZITHROMYCIN IV 500 MG in NS 250ml 250 ML IV SCH (12:06)
--- NOTE | 2017-04-19 12:08 | XRay Report ---
INDICATION: monitoring of pneumonia, continued hypoxia PROCEDURE: CHEST 2-VIEWS UPRIGHT (PA & LAT) Encounter: Initial COMPARISON: April 17, 2017 and June 25, 2015 FINDINGS: Persistent linear type airspace opacity in the lingula without significant change. The remaining lung valiente are clear. No pleural effusion or pneumothorax. Heart size and mediastinal contours are within normal limits. Pulmonary vascularity is normal. Impression: Stable area of linear opacity in the lingula could represent atelectasis, pneumonia or scar. .
[2017-04-19] MEDS: SIMVASTATIN 20 MG TABLET PO SCH (21:24)
[2017-04-19] MEDS: LISINOPRIL 10 MG TABLET PO SCH (21:24)
--- NOTE | 2017-04-19 23:03 | Pulmonology Progress Note ---
Subjective Interval history: Pt up in the chair. States he is feeling better and less SOB noted. Still with some cough noted. States he is tolerating the bipap a couple hours at a time during the day. Exam Vital signs: Temperature 97.7 F 04/19/17 16:00 Pulse Rate 95 04/19/17 16:00 Respiratory Rate 26 H 04/19/17 20:28 Blood Pressure 140/76 H 04/19/17 16:00 Pulse Oximetry 97 04/19/17 20:28 - Constitutional no acute distress, morbidly obese - Routine HEENT Exam Head: Present: normocephalic, atraumatic Eye: Present: EOMI, PERRL ENT: Present: mucous membranes moist - Routine Neck Exam Present: supple, full ROM - Routine Respiratory Exam Present: decreased breath sounds, wheezes Comments: faint exp wheezes - Routine Cardiovascular Exam Present: RRR, S1, S2, no murmur - Routine Abdominal Exam Present: soft, normoactive bowel sounds - Routine Extremities Exam Present: edema, non tender, full ROM - Routine Back/Spine/Pelvis Exam Back/Spine: Present: full ROM - Routine Skin Exam Present: intact, dry - Routine Neurological Exam Present: alert, oriented X3, CN II-XII intact, normal reflexes - Routine Psychiatric Exam Present: normal affect, normal thought process Assessment and Plan - Assessment and Plan Acute on Chronic Hypoxic Hypercapnic Respiratory Failure COPD exacerbation CAP ANGELLA/OHS Morbid Obesity DM Pt currently on 6L O2 per NC, sats stable. Using bipap f16, 15/5 and tarik for a few hours at a time. Encouraged use at noc for at least 6 hrs. Cont on Bt's with pulmicort BID, A/A QID and wean solumedrol to 60 q8. On Rocephin/azithro for CAP. Will follow closely, will need a home vent to mask at discharge for chronic hypercapnic failure secondary to COPD to reduce incidence of decompensation and even . Bipap ruled out. - Time Spent With Patient Total time spent is greater than 50% in coordination of care (as documented) at patient's floor/unit and/or counseling patient: less than 15 minutes
[2017-04-20] MEDS: METHYLPREDNISOLONE SOD SUCC 125mg/2ml INJECTION IVP SCH ×3 (01:19→19:06)
[2017-04-20] MEDS: OMEPRAZOLE 20 MG CAPSULE PO SCH (05:39)
[2017-04-20] MEDS: INSULIN REGULAR, HUMAN 100 UNIT/ML INJECTION SQ PRN ×3 (05:45→21:35)
[2017-04-20] MEDS: ALBUTEROL/IPRATROPIUM 2.5mg-0.5mg/3ml NEB AEROSOL SCH ×4 (07:36→19:01)
[2017-04-20] MEDS: ASPIRIN 81 MG CHEWABLE TABLET PO SCH (08:59)
[2017-04-20] MEDS: PROMETHAZINE/CODEINE ORAL LIQUID 5ml PO PRN (08:59)
[2017-04-20] MEDS: BuPROPion SR 150mg (12HR) TABLET PO SCH ×2 (09:00→21:30)
[2017-04-20] MEDS: ENOXAPARIN 40 MG/0.4 ML INJECTION SQ SCH (09:00)
[2017-04-20] MEDS: GABAPENTIN 300 MG CAPSULE PO SCH ×3 (09:00→21:30)
[2017-04-20] MEDS: CITALOPRAM 40 MG TABLET PO SCH (09:00)
[2017-04-20] MEDS: GUAIFENESIN/D-METHORPHAN 600mg/30mg TABLET PO SCH ×2 (09:00→21:31)
[2017-04-20] MEDS: SALINE 0.65% NASAL SPRAY 44 ML BOTTLE EA NOSTRIL SCH ×4 (09:03→21:41)
[2017-04-20] MEDS ORDERED: acetaZOLAMIDE 250 MG TABLET PO ONE (11:01)
--- NOTE | 2017-04-20 11:22 | Progress Note ---
- Date 04/20/17 Subjective: F/U: Community acquired pneumonia, Hypercapnic/Hypoxic respiratory failure, COPD exacerbation Feels like he is improving. Does feel strength better-able to walk to bathroom without becoming completely winded (not able to move any at admit). Wearing BIPAP more (indeed, was wearing when I came in room to see him)-tolerating. Less cough and sputum; less congestion. Eating well. No nausea. Concerned that blood sugars are high-discussed how steroids will do that and why metformin was placed on hold. Urinating well. No f/c. No mouth pain-throat sore/dry this am. Objective Vital signs: Temperature 97.5 F 04/20/17 08:00 Pulse Rate 66 04/20/17 08:00 Respiratory Rate 12 04/20/17 08:00 Blood Pressure 159/76 H 04/20/17 08:00 Pulse Oximetry 92 04/20/17 08:00 Height/Weight/BMI: Height 1.88 m Weight 141.2 kg Body Mass Index 40.2 - Constitutional Present: well nourished, well developed, morbidly obese, cooperative. Absent: combative, agitated, somnolent, obtunded - Routine HEENT Exam Head: Present: normocephalic, atraumatic Eye: Present: EOMI, PERRL ENT: Present: mucous membranes moist - Routine Respiratory Exam Present: decreased breath sounds, distant breath sounds, diminished air movement. Absent: rales, respiratory distress, rhonchi, stridor, wheezes, crackles - Routine Cardiovascular Exam Present: RRR, no murmur - Routine Abdominal Exam Present: soft, non distended, non tender. Absent: guarding - Routine Extremities Exam Present: edema (+3 BLE ). Absent: cyanosis, clubbing - Routine Musculoskeletal Exam Musculoskeletal: Present: no clubbing or cyanosis, normal strength - Routine Skin Exam Present: dry, warm - Routine Neurological Exam Present: alert, oriented X3, CN II-XII intact, moving all extremities, vision grossly intact, hearing grossly intact, normal speech. Absent: motor deficit, altered mental status - Routine Psychiatric Exam Present: normal affect, normal thought process, cooperative. Absent: anxious, agitated, paranoid Results - Labs CBC & Chem 7: 04/20/17 05:04 04/20/17 05:04 Microbiology Results: Microbiology 04/17/17 11:23 Peripheral/Iv Start Blood Culture - Preliminary No Growth After 2 Days 04/17/17 11:27 Peripheral/Iv Start Blood Culture - Preliminary No Growth After 2 Days Assessment and Plan (1) Community acquired pneumonia Current visit: Yes Status: Acute (2) Sepsis Current visit: Yes Status: Acute Assessment and Plan: Impression Sepsis - SIRS criteria- Tachycardia, tachypnea, suspected pneumonia Community acquired pneumonia Hypercapnic/Hypoxic respiratory failure - baseline 5 liters COPD exacerbation Poor personal hygiene HTN DM Coronary artery disease Peripheral vascular disease/neuropathy GERD Fibromyalgia Tobacco dependence Morbid obesity BMI 40.0 Plan Continue with Azithromycin and Rocephin (Day #4). Solu-Medrol decreased to 60mg q8hr by pulm. Continue Duoneb/ Pulmicort Neb treatment, acapella, Mucinex DM. Encourage deep breathing. Encouraged continued use of BIPAP - very encouraging that patient is tolerating this well. Advised will significantly help his respiratory status. With elevation of blood sugars secondary to steroid, will start Lantus 15 units at night. Septic markers resolved-can restart metformin. Continue lisinopril for HTN - creatinine and potassium stable. Will give Diamox 500mg x1 to help decreased edema. Recheck BMP in am secondary to medication use. Will repeat CBC secondary to resolving pneumonia/sepsis. Case discussed with CM and patient's . Time spent with patient care 25 minutes. DVT Prophylaxis: SCD's, Lovenox Resuscitation Status: Full Code - Time spent with patient Time with patient PN: 25 minutes - Physician Narrative Physician: Michael Lopez MD Narrative: Date: 04/20/17 Time: 1119 Hospital Course Summary Disclaimer: The visit summary below is not to be considered part of the above Progress Note. Hospital Course: Impression Sepsis- SIRS criteria- Tachycardia, tachypnea, suspected pneumonia Community acquired pneumonia Hypercapnic respiratory failure -baseline 5 liters, now requiring > 6L + BiPAP COPD exacerbation HTN DM Coronary artery disease Peripheral vascular disease/neuropathy GERD Fibromyalgia Tobacco dependence Morbid obesity 04/17/17 - Admission -- Plan Admit as a inpatient under the care of Dr Lopez for sepsis, CAD and increased hypoxia. Sepsis work up initiated in the ER. Initial Lactate was normal. Blood cultures were obtained and he was started on Rocephin for antimicrobial coverage. Will also add IV Azithromycin to cover CAP. Scheduled Duoneb and Pulmicort Nebs scheduled. Given ABG and presence of Hypercapnic respiratory failure requiring greater than [address] patient on Bi-pap. May use Ativan as needed with bipap. Obtain respiratory panel to rule out respiratory viruses - negative. Monitor on cardiac telemetry given tachycardia. Monitor Accu-Cheks, encourage carb consistent diet. Will obtain a hemoglobin A1c on admission. Lovenox and SCDs to bilateral lower ext for DVT prophylaxis. Check CBC and BMP tomorrow morning to follow blood counts, renal function and electrolytes Patient does wish to be a full code and this orders written. At time of discharge medical care will return to primary care provider, Dr. Odom. 04/18/17 Venous lactated did increase to 3.0 confirming sepsis process. Will recheck to assure lactate is trending down as per sepsis guidelines. Continue with Azithromycin and Rocephin. Preliminary Blood cultures remain negative. Appreciate pulmonary consultation by Dr Ashby. Encourage use of Bipap. Scheduled Duoneb and Pulmicort Nebs scheduled. Monitor Accu-Cheks,Fasting BGM this morning was 188. Encourage carb consistent diet. A1 C on admission 6.4. 04/19/17 Continue with Azithromycin and Rocephin. Appreciate pulmonary consultation by Dr Ashby. Encourage use of Bipap. Scheduled Duoneb and Pulmicort Nebs scheduled. Recheck CXR today. Montior BGM as metformin was placed on hold due to elevated lactate. Monitor blood pressure and renal function given addition of lisinopril 04/20/17 Continue with Azithromycin and Rocephin (Day #4). Solu-Medrol decreased to 60mg q8hr by pulm. Continue Duoneb/ Pulmicort Neb treatment, acapella, Mucinex DM. Encourage deep breathing. Encouraged continued use of BIPAP - very encouraging that patient is tolerating this well. Advised will significantly help his respiratory status. With elevation of blood sugars secondary to steroid, will start Lantus 15 units at night. Septic markers resolved-can restart metformin. Continue lisinopril for HTN - creatinine and potassium stable. Will give Diamox 500mg x1 to help decreased edema.
[2017-04-20] MEDS: BUDESONIDE INH.SOLN 0.5mg/2ml NEB AEROSOL SCH ×2 (11:26→19:01)
[2017-04-20] MEDS: CEFTRIAXONE 1 G in NS 100 ML IV SCH (14:43)
[2017-04-20] MEDS: HYDROCODONE/APAP 7.5 MG/325 MG TABLET PO PRN (14:44)
[2017-04-20] MEDS: AZITHROMYCIN IV 500 MG in NS 250ml 250 ML IV SCH (15:42)
[2017-04-20] MEDS: METFORMIN 500 MG TABLET PO SCH (19:24)
[2017-04-20] MEDS ORDERED: INSULIN GLARGINE 100unit/ml INJECTION SQ SCH (21:00)
[2017-04-20] MEDS: LISINOPRIL 10 MG TABLET PO SCH (21:30)
[2017-04-20] MEDS: SIMVASTATIN 20 MG TABLET PO SCH (21:30)
[2017-04-21] MEDS: METHYLPREDNISOLONE SOD SUCC 125mg/2ml INJECTION IVP SCH ×3 (05:56→18:44)
[2017-04-21] MEDS: OMEPRAZOLE 20 MG CAPSULE PO SCH (05:56)
[2017-04-21] MEDS: INSULIN REGULAR, HUMAN 100 UNIT/ML INJECTION SQ PRN ×3 (06:02→21:32)
[2017-04-21] MEDS: ALBUTEROL/IPRATROPIUM 2.5mg-0.5mg/3ml NEB AEROSOL SCH ×4 (07:40→19:56)
[2017-04-21] MEDS: BUDESONIDE INH.SOLN 0.5mg/2ml NEB AEROSOL SCH ×2 (07:40→19:56)
[2017-04-21] MEDS: ENOXAPARIN 40 MG/0.4 ML INJECTION SQ SCH (08:17)
[2017-04-21] MEDS: ASPIRIN 81 MG CHEWABLE TABLET PO SCH (08:17)
[2017-04-21] MEDS: BuPROPion SR 150mg (12HR) TABLET PO SCH ×2 (08:17→21:33)
[2017-04-21] MEDS: METFORMIN 500 MG TABLET PO SCH ×2 (08:17→18:44)
[2017-04-21] MEDS: GABAPENTIN 300 MG CAPSULE PO SCH ×3 (08:17→21:33)
[2017-04-21] MEDS: CITALOPRAM 40 MG TABLET PO SCH (08:17)
[2017-04-21] MEDS: GUAIFENESIN/D-METHORPHAN 600mg/30mg TABLET PO SCH ×2 (08:17→21:34)
[2017-04-21] MEDS: SALINE 0.65% NASAL SPRAY 44 ML BOTTLE EA NOSTRIL SCH ×4 (08:30→22:29)
--- NOTE | 2017-04-21 11:53 | Progress Note ---
- Date 04/21/17 Subjective: F/U: Community acquired pneumonia, Hypercapnic/Hypoxic respiratory failure, COPD exacerbation Feeling better. Breathing is improving-can move more without getting SOA. Less cough and congestion. Not hurting with breathing. Tolerating BIPAP-does feel helpful; using lorazepam to help decrease anxiety with BIPAP. Not having nasal congestion. Mouth feel dry but not having pain. Eating well. No nausea or ab pain. Urinating well. Strength and stability improving. Objective Vital signs: Temperature 98 F 04/21/17 08:00 Pulse Rate 82 04/21/17 09:56 Respiratory Rate 18 04/21/17 08:00 Blood Pressure 167/88 H 04/21/17 08:00 Pulse Oximetry 92 04/21/17 08:00 Height/Weight/BMI: Height 1.88 m Weight 141.2 kg Body Mass Index 40.2 - Constitutional Present: well nourished, well developed, morbidly obese, cooperative. Absent: combative, agitated, somnolent - Routine HEENT Exam Head: Present: normocephalic, atraumatic Eye: Present: EOMI, PERRL ENT: Present: mucous membranes moist - Routine Respiratory Exam Present: decreased breath sounds, prolonged expiratory phase, distant breath sounds, diminished air movement. Absent: rhonchi, stridor, wheezes, crackles - Routine Cardiovascular Exam Present: RRR, no murmur - Routine Abdominal Exam Present: soft, normoactive bowel sounds, non distended, non tender. Absent: guarding - Routine Extremities Exam Present: edema (+2BLE ), pulses intact. Absent: cyanosis, clubbing - Routine Musculoskeletal Exam Musculoskeletal: Present: no clubbing or cyanosis, normal strength - Routine Skin Exam Present: dry, warm - Routine Neurological Exam Present: alert, oriented X3, CN II-XII intact, moving all extremities, vision grossly intact, hearing grossly intact, normal speech. Absent: motor deficit, altered mental status - Routine Psychiatric Exam Present: normal affect, cooperative. Absent: anxious, agitated Results - Labs CBC & Chem 7: 04/21/17 04:37 04/21/17 04:37 Microbiology Results: Microbiology 04/17/17 11:23 Peripheral/Iv Start Blood Culture - Preliminary No Growth After 4 Days 04/17/17 11:27 Peripheral/Iv Start Blood Culture - Preliminary No Growth After 4 Days Assessment and Plan (1) Community acquired pneumonia Current visit: Yes Status: Acute (2) Sepsis Current visit: Yes Status: Acute Assessment and Plan: Impression Sepsis - SIRS criteria- Tachycardia, tachypnea, suspected pneumonia Community acquired pneumonia Hypercapnic/Hypoxic respiratory failure - baseline 5 liters COPD exacerbation Poor personal hygiene HTN DM Coronary artery disease Peripheral vascular disease/neuropathy GERD Fibromyalgia Tobacco dependence Morbid obesity BMI 40.0 Plan Continue with Rocephin for pulmonary coverage; can stop azithromycin after today 's dose as course completed. Day #5 of antibiotics. Continue Solu-Medrol at 60mg q8hr. Continue Duoneb/ Pulmicort Neb treatment, acapella, Mucinex DM. Encourage deep breathing. Encouraged continued use of BIPAP - very encouraging that patient is tolerating this well. Advised will significantly help his respiratory status. Restart home Lasix 20mg daily. Will start potassium 20mEq daily with food. Atenolol not restarted secondary to respiratory status - feel can hold on restarting this medication. With elevation of blood sugars secondary to steroids, will increase Lantus to 20 units at night. Continue metformin. PT/OT to see patient in am due to pulmonary debility. Recheck BMP and Mg in am secondary to medication use. Will repeat CBC secondary to resolving pneumonia/sepsis. Case discussed patient's . Time spent with patient care 25 minutes. DVT Prophylaxis: SCD's, Lovenox Resuscitation Status: Full Code - Time spent with patient Time with patient PN: 25 minutes - Physician Narrative Physician: Michael Lopez MD Narrative: Date: 04/21/17 Time: 1149 Hospital Course Summary Disclaimer: The visit summary below is not to be considered part of the above Progress Note. Hospital Course: Impression Sepsis- SIRS criteria- Tachycardia, tachypnea, suspected pneumonia Community acquired pneumonia Hypercapnic respiratory failure -baseline 5 liters, now requiring > 6L + BiPAP COPD exacerbation HTN DM Coronary artery disease Peripheral vascular disease/neuropathy GERD Fibromyalgia Tobacco dependence Morbid obesity 04/17/17 - Admission -- Plan Admit as a inpatient under the care of Dr Lopez for sepsis, CAD and increased hypoxia. Sepsis work up initiated in the ER. Initial Lactate was normal. Blood cultures were obtained and he was started on Rocephin for antimicrobial coverage. Will also add IV Azithromycin to cover CAP. Scheduled Duoneb and Pulmicort Nebs scheduled. Given ABG and presence of Hypercapnic respiratory failure requiring greater than [address] patient on Bi-pap. May use Ativan as needed with bipap. Obtain respiratory panel to rule out respiratory viruses - negative. Monitor on cardiac telemetry given tachycardia. Monitor Accu-Cheks, encourage carb consistent diet. Will obtain a hemoglobin A1c on admission. Lovenox and SCDs to bilateral lower ext for DVT prophylaxis. Check CBC and BMP tomorrow morning to follow blood counts, renal function and electrolytes Patient does wish to be a full code and this orders written. At time of discharge medical care will return to primary care provider, Dr. Odom. 04/18/17 Venous lactated did increase to 3.0 confirming sepsis process. Will recheck to assure lactate is trending down as per sepsis guidelines. Continue with Azithromycin and Rocephin. Preliminary Blood cultures remain negative. Appreciate pulmonary consultation by Dr Ashby. Encourage use of Bipap. Scheduled Duoneb and Pulmicort Nebs scheduled. Monitor Accu-Cheks,Fasting BGM this morning was 188. Encourage carb consistent diet. A1 C on admission 6.4. 04/19/17 Continue with Azithromycin and Rocephin. Appreciate pulmonary consultation by Dr Ashby. Encourage use of Bipap. Scheduled Duoneb and Pulmicort Nebs scheduled. Recheck CXR today. Montior BGM as metformin was placed on hold due to elevated lactate. Monitor blood pressure and renal function given addition of lisinopril 04/20/17 Continue with Azithromycin and Rocephin (Day #4). Solu-Medrol decreased to 60mg q8hr by pulm. Continue Duoneb/ Pulmicort Neb treatment, acapella, Mucinex DM. Encourage deep breathing. Encouraged continued use of BIPAP - very encouraging that patient is tolerating this well. Advised will significantly help his respiratory status. With elevation of blood sugars secondary to steroid, will start Lantus 15 units at night. Septic markers resolved-can restart metformin. Continue lisinopril for HTN - creatinine and potassium stable. Will give Diamox 500mg x1 to help decreased edema. 04/21/17 Continue with Rocephin for pulmonary coverage; can stop azithromycin after today 's dose as course completed. Day #5 of antibiotics. Continue Solu-Medrol at 60mg q8hr. Continue Duoneb/ Pulmicort Neb treatment, acapella, Mucinex DM. Encourage deep breathing. Encouraged continued use of BIPAP - very encouraging that patient is tolerating this well. Advised will significantly help his respiratory status. Restart home Lasix 20mg daily. Will start potassium 20mEq daily with food. Atenolol not restarted secondary to respiratory status - feel can hold on restarting this medication. With elevation of blood sugars secondary to steroids, will increase Lantus to 20 units at night. Continue metformin. PT/OT to see patient in am due to pulmonary debility.
[2017-04-21] MEDS: HYDROCODONE/APAP 7.5 MG/325 MG TABLET PO PRN (12:00)
[2017-04-21] MEDS: CEFTRIAXONE 1 G in NS 100 ML IV SCH (12:19)
[2017-04-21] MEDS: FUROSEMIDE 20 MG TABLET PO SCH (12:58)
[2017-04-21] MEDS: AZITHROMYCIN IV 500 MG in NS 250ml 250 ML IV SCH (12:59)
[2017-04-21] MEDS ORDERED: INSULIN GLARGINE 100unit/ml INJECTION SQ SCH (21:00)
[2017-04-21] MEDS: SIMVASTATIN 20 MG TABLET PO SCH (21:33)
[2017-04-21] MEDS: LISINOPRIL 10 MG TABLET PO SCH (21:33)
[2017-04-22 00:11] VITALS: O2SAT 96
[2017-04-22] MEDS: METHYLPREDNISOLONE SOD SUCC 125mg/2ml INJECTION IVP SCH ×2 (00:12→08:19)
[2017-04-22] MEDS: OMEPRAZOLE 20 MG CAPSULE PO SCH (06:00)
[2017-04-22] MEDS: INSULIN REGULAR, HUMAN 100 UNIT/ML INJECTION SQ PRN ×2 (06:00→10:45)
[2017-04-22] MEDS: BUDESONIDE INH.SOLN 0.5mg/2ml NEB AEROSOL SCH (07:02)
[2017-04-22] MEDS: ALBUTEROL/IPRATROPIUM 2.5mg-0.5mg/3ml NEB AEROSOL SCH ×2 (07:02→13:41)
[2017-04-22 08:09] VITALS: BP 167/84; PULSE 76; TEMP 97.9
[2017-04-22] MEDS: ENOXAPARIN 40 MG/0.4 ML INJECTION SQ SCH (08:19)
[2017-04-22] MEDS: SALINE FLUSH 10ml SYRINGE IVF PRN (08:19)
[2017-04-22] MEDS: BuPROPion SR 150mg (12HR) TABLET PO SCH (08:19)
[2017-04-22] MEDS: CITALOPRAM 40 MG TABLET PO SCH (08:20)
[2017-04-22] MEDS: FUROSEMIDE 20 MG TABLET PO SCH (08:20)
[2017-04-22] MEDS: METFORMIN 500 MG TABLET PO SCH (08:20)
[2017-04-22] MEDS: SALINE 0.65% NASAL SPRAY 44 ML BOTTLE EA NOSTRIL SCH ×2 (08:20→12:24)
[2017-04-22] MEDS: GUAIFENESIN/D-METHORPHAN 600mg/30mg TABLET PO SCH (08:20)
[2017-04-22] MEDS: ASPIRIN 81 MG CHEWABLE TABLET PO SCH (08:20)
[2017-04-22] MEDS: GABAPENTIN 300 MG CAPSULE PO SCH ×2 (08:20→15:00)
--- NOTE | 2017-04-22 10:36 | Discharge Summary ---
Discharge Information Date of admission: 04/17/17 11:12 Anticipated date of discharge: 04/22/17 Attending Physician: Michael Lopez MD Primary care physician: Zak Odom MD Consults: Dr. Ashby-layer out plate glass - Discharge Diagnosis (1) Community acquired pneumonia Status: Acute (2) Sepsis Status: Acute Discharge diagnosis Sepsis - SIRS criteria- Tachycardia, tachypnea, suspected pneumonia Community acquired pneumonia Hypercapnic/Hypoxic respiratory failure - baseline 5 liters COPD exacerbation Poor personal hygiene HTN DM Coronary artery disease Peripheral vascular disease/neuropathy GERD Fibromyalgia Tobacco dependence Morbid obesity BMI 40.0 - Procedures Procedures: None - Laboratory Labs: 04/22/17 03:57 04/22/17 03:57 - Microbiology Microbiology 04/17/17 11:23 Peripheral/Iv Start Blood Culture - Preliminary No Growth After 4 Days 04/17/17 11:27 Peripheral/Iv Start Blood Culture - Preliminary No Growth After 4 Days - Radiology Radiology: 04/17/17- Impression: Lingular atelectasis or pneumonia. 04/19/17- Impression: Stable area of linear opacity in the lingula could represent atelectasis, pneumonia or scar. - Pathology None History of Present Illness HPI: Chaz is a 61 yr old male who has been under the [place] care of Dr. Biswas. Patient has underlying COPD and chronically uses oxygen at 5 liters. He reports he has not felt well for approximately 1 month,however he has become acutely more short of breath over the last several days. He's noticed things "flying in his vision" accompanied with his increased shortness of breath. He feels at times he has had fevers and chills, however, cannot confirm this. Today he presented to the emergency room for acute evaluation and treatment. He was tachycardic on arrival to ER at 112, and tachypnea at 35 breathes per min. He was hypoxic and quite greater than 5 liters to maintain saturations. Initially was at 90% on 6 liters, however, then was placed on BiPAP. Chest xray revels lingular airspace opacity. ABG on 6 liters-pH 7.3, CO2 Ewy, pCO2 59, bicarbonate 46. Initial lactate was normal at 1.4. WBC count normal at 9.1, 84% neutrophils. Given worsening SIRS criteria , accompanied with increased hypoxia from baseline and probable pneumonia. The hospitalist services were contacted and accepted patient for inpatient admission for further evaluation and treatment. He requests to be a Full Code. Objective Vital signs: Temperature 97.9 F 04/22/17 08:00 Pulse Rate 76 04/22/17 08:00 Respiratory Rate 20 04/22/17 08:00 Blood Pressure 167/84 H 04/22/17 08:00 Pulse Oximetry 96 04/22/17 08:00 Height/Weight/BMI: Height 1.88 m Weight 140.2 kg Body Mass Index 40.2 - Constitutional Present: no acute distress, well nourished, well developed - Routine HEENT Exam Eye: Present: EOMI ENT: Present: mucous membranes moist, dentition normal - Routine Respiratory Exam Present: diminished air movement - Routine Cardiovascular Exam Present: RRR, S1, S2. Absent: murmur - Routine Abdominal Exam Present: soft, normoactive bowel sounds, non distended. Absent: tenderness - Routine Extremities Exam Present: full ROM, normal capillary refill - Routine Back/Spine/Pelvis Exam Back/Spine: Present: full ROM - Routine Skin Exam Present: intact, dry, warm - Routine Neurological Exam Present: alert, oriented X3, CN II-XII intact, moving all extremities - Routine Lymphatic Exam Lymphatic: Absent: adenopathy - Routine Psychiatric Exam Present: normal affect, cooperative Hospital Course This is a general summary of the patient's hospital course. For more details refer to the complete medical record. Hospital course: Impression Sepsis- SIRS criteria- Tachycardia, tachypnea, suspected pneumonia Community acquired pneumonia Hypercapnic respiratory failure -baseline 5 liters, now requiring > 6L + BiPAP COPD exacerbation HTN DM Coronary artery disease Peripheral vascular disease/neuropathy GERD Fibromyalgia Tobacco dependence Morbid obesity 04/17/17 - Admission -- Plan Admit as a inpatient under the care of Dr Lopez for sepsis, CAD and increased hypoxia. Sepsis work up initiated in the ER. Initial Lactate was normal. Blood cultures were obtained and he was started on Rocephin for antimicrobial coverage. Will also add IV Azithromycin to cover CAP. Scheduled Duoneb and Pulmicort Nebs scheduled. Given ABG and presence of Hypercapnic respiratory failure requiring greater than [address] patient on Bi-pap. May use Ativan as needed with bipap. Obtain respiratory panel to rule out respiratory viruses - negative. Monitor on cardiac telemetry given tachycardia. Monitor Accu-Cheks, encourage carb consistent diet. Will obtain a hemoglobin A1c on admission. Lovenox and SCDs to bilateral lower ext for DVT prophylaxis. Check CBC and BMP tomorrow morning to follow blood counts, renal function and electrolytes Patient does wish to be a full code and this orders written. At time of discharge medical care will return to primary care provider, Dr. Odom. 04/18/17 Venous lactated did increase to 3.0 confirming sepsis process. Will recheck to assure lactate is trending down as per sepsis guidelines. Continue with Azithromycin and Rocephin. Preliminary Blood cultures remain negative. Appreciate pulmonary consultation by Dr Ashby. Encourage use of Bipap. Scheduled Duoneb and Pulmicort Nebs scheduled. Monitor Accu-Cheks,Fasting BGM this morning was 188. Encourage carb consistent diet. A1 C on admission 6.4. 04/19/17 Continue with Azithromycin and Rocephin. Appreciate pulmonary consultation by Dr Ashby. Encourage use of Bipap. Scheduled Duoneb and Pulmicort Nebs scheduled. Recheck CXR today. Montior BGM as metformin was placed on hold due to elevated lactate. Monitor blood pressure and renal function given addition of lisinopril 04/20/17 Continue with Azithromycin and Rocephin (Day #4). Solu-Medrol decreased to 60mg q8hr by pulm. Continue Duoneb/ Pulmicort Neb treatment, acapella, Mucinex DM. Encourage deep breathing. Encouraged continued use of BIPAP - very encouraging that patient is tolerating this well. Advised will significantly help his respiratory status. With elevation of blood sugars secondary to steroid, will start Lantus 15 units at night. Septic markers resolved-can restart metformin. Continue lisinopril for HTN - creatinine and potassium stable. Will give Diamox 500mg x1 to help decreased edema. 04/21/17 Continue with Rocephin for pulmonary coverage; can stop azithromycin after today 's dose as course completed. Day #5 of antibiotics. Continue Solu-Medrol at 60mg q8hr. Continue Duoneb/ Pulmicort Neb treatment, acapella, Mucinex DM. Encourage deep breathing. Encouraged continued use of BIPAP - very encouraging that patient is tolerating this well. Advised will significantly help his respiratory status. Restart home Lasix 20mg daily. Will start potassium 20mEq daily with food. Atenolol not restarted secondary to respiratory status - feel can hold on restarting this medication. With elevation of blood sugars secondary to steroids, will increase Lantus to 20 units at night. Continue metformin. PT/OT to see patient in am due to pulmonary debility. 04/22/17- Discharge Chaz is seen and examined on day of discharge. He is up in the chair utilizing his BiPAP, is at the bedside. Overall, he states that he is feeling much better. He is able to utilize his baseline oxygen of 5 liters. We did discuss the importance of continued BiPAP use at home. Home BiPAP is being set up with case management and pulmonology team. They recommend that he utilize this. While at sleep with a goal of 6-8 hours per day. The remaining time he needs to continue on his chronic oxygen at 5 liters. His completed all antibiotic therapy for treatment of pneumonia. Will continue on prednisone taper starting with 40 milligrams daily 3 days and taper down every 3 days until gone. Encourage patient to follow-up with his primary care provider, Dr. Odom in one week. Time spent with patient: discharge greater than 30 minutes Discharge Plan - Discharge Disposition Discharge Date: 04/22/17 Disposition: 01 Discharged Home, Self-Care *Condition: Stable Reason For Visit (Visit label in EMR): Acute hypoxic/hypercapnic resp failure, sepsis - Discharge Medications *Discharge Medications: New predniSONE [Prednisone] 10 mg PO TAPERQD #18 tab LORazepam [Ativan] 0.5 mg PO Q4HR PRN #30 tab PRN Reason: Air Hunger/Anxiety Hydrocodone/APAP 7.5/325 [[place] 7.5/325] 1 tab PO Q6H PRN #10 tab PRN Reason: Pain Continue Gabapentin 300 mg PO TID #0 cap Omeprazole 40 mg PO DAILY #0 cap Hydrocodone/APAP 7.5/325 [[place] 7.5/325] 1 tab PO BID Simvastatin 20 mg PO HS Itraconazole 200 mg PO BID Nitroglycerin [Nitrostat] 0.4 mg SL Q5MIN3 PRN PRN Reason: CHEST PAIN Albuterol/Ipratropium [Duoneb] 1 unit AEROSOL QID Metformin [Glucophage] 500 mg PO BIDWM Furosemide [Lasix] 20 mg PO DAILY buPROPion HCl [Bupropion HCl Sr] 150 mg PO BID Atenolol [Tenormin] 25 mg PO DAILY Aspirin 81 mg PO DAILY Citalopram [Celexa] 40 mg PO DAILY - Discharge Packet/Instructions *Diet: Carb consistent diet *Activity: Activity as tolerated *Pain Management/Treatment: [place] as needed for pain *Wound Care: None Additional Instructions: Use Bi-pap at night with any sleeping. Goal Bipap use is 6-8 hours a day. Continue to use oxygen at chronic 5 liters. *Expected Signs/Symptoms: Improvement in breathing *Notify Physician if: Breathing worsens *During Business Hours Contact: Contact Dr. Odom *After Business Hours Contact: Contact Dr Beck *Pending Lab/Results: Follow up w/Provider - Referrals/Follow Up *Referrals/Follow Up: Zak Odom MD [Family Provider] - (Please schedule follow up for 1 week APPOINTMENT ON 05/01 1:30.) - Patient Handouts Patient Handouts: Hypoxia (GEN), BiPAP (GEN) Physician Narrative - Narrative Physician: Michael Lopez MD Attestation Narrative: Date: 04/22/17 Time: 1515 Have independently interviewed and examined pt prior to discharge. Chart reviewed. Case discussed with my [employer]. Care plan developed with my supervision; agree with above. Doing well today. Breathing stable. Eating well. No n/v. Ambulating well. Lungs: decreased, no distress CV: regular AB: soft obese nt/nd MSE: awake alert appropriate Plan: Medically stable for discharge to home. Home vent being set up. Continue Acapella. Encourage NO SMOKING. F/U with Dr Odom in 1 week. See orders for details.
[2017-04-22] MEDS: CEFTRIAXONE 1 G in NS 100 ML IV SCH (10:45)
[2017-04-22 13:42] VITALS: RESP 18
== END 2017-04-22 16:40 | disposition home or self-care (01) | DRG 871 ==
LOC: ED 09:25 → MED 11:12
PROVIDERS: ADMIT Hospitalist; ATTEND Hospitalist

== ENCOUNTER 2017-05-17 05:12 | Inpatient (IN) ==
[2017-05-17] MEDS ORDERED: ALBUTEROL/IPRATROPIUM 2.5mg-0.5mg/3ml NEB AEROSOL ONE (05:19)
--- NOTE | 2017-05-17 05:29 | Emergency Department Report ---
Asthma HPI - General Stated Complaint: CP <Bhargav Cohen - 05/17/17 09:16> Time Seen by Provider: 05/17/17 05:12 <Bhargav Cohen - 05/17/17 09:16> Source: patient, family, EMS <Teodoro Duffy - 05/17/17 05:32> Mode of arrival: EMS <Teodoro Duffy 05/17/17 05:32> Limitations: no limitations <Teodoro Duffy 05/17/17 05:32> - History of Present Illness HPI Narrative: Patient presents with complaints of dyspnea ongoing for several hours tonight. Patient was seen one month ago, diagnosed with pneumonia, COPD exacerbation, and SIRS/Sepsis. Dismissed on April 22 the patient went home and resumed his normal 5 L of oxygen, heavy smoking, and routine medications with occasional breathing treatments for his COPD. Home health and occupational health were set up, the patient rehabed at home well until yesterday. Yesterday his home health nurse found the patient to be experiencing dyspnea, chest pain, increasing oxygen needs, and having a heart rate in the 140s to 150s. At that time the patient refused to be transferred to the hospital, stating that he would prefer to treat himself at home. Patient tried several breathing treatments at home, but admits he has not had much to drink in the past few days. Patient came to the ER this morning because he woke up "and I couldn't breathe. " Patient is breathing, but states that he is having increasing dyspnea, and his 5 L of oxygen at home don't seem to be helping. Patient was complaining of chest pain when EMS picked him up, he was given 2 sublingual nitroglycerin and 4 baby aspirin to relief of his chest pain, but no help with his dyspnea. Patient's past medical history includes morbid obesity, severe COPD, tobacco abuse, angina/coronary artery disease, chronic recurrent chest pain, and severe debility and inability to take care of himself. With home health and his 's assistance, most of the patient's ADLs are met. However patient continues to have significant hygiene issues as well as moderately health maintenance with poor daily washing, and no care whatsoever to the patient's profound heavy and disfigured toenails. <Teodoro Duffy - 05/17/17 05:32> - Related Data Home Medications Medication Instructions Recorded Confirmed Gabapentin 300 mg PO TID #0 cap 06/19/15 05/17/17 Omeprazole 40 mg PO DAILY #0 cap 06/19/15 05/17/17 Albuterol/Ipratropium [Duoneb] 1 unit AEROSOL QID 04/17/17 05/17/17 Aspirin 81 mg PO DAILY 04/17/17 05/17/17 Atenolol [Tenormin] 25 mg PO DAILY 04/17/17 05/17/17 Citalopram [Celexa] 40 mg PO DAILY 04/17/17 05/17/17 Furosemide [Lasix] 20 mg PO DAILY 04/17/17 05/17/17 Hydrocodone/APAP 7.5/325 [[place] 1 tab PO BID 04/17/17 05/17/17 7.5/325] Itraconazole 200 mg PO BID 04/17/17 05/17/17 Metformin [Glucophage] 500 mg PO BIDWM 04/17/17 05/17/17 Nitroglycerin [Nitrostat] 0.4 mg SL Q5MIN3 PRN 04/17/17 05/17/17 Simvastatin 20 mg PO HS 04/17/17 05/17/17 buPROPion HCl [Bupropion HCl Sr] 150 mg PO BID 04/17/17 05/17/17 Previous Rx's Medication Instructions Recorded Hydrocodone/APAP 7.5/325 [[place] 1 tab PO Q6H PRN #10 tab 04/22/17 7.5/325] LORazepam [Ativan] 0.5 mg PO Q4HR PRN #30 tab 04/22/17 predniSONE [Prednisone] 10 mg PO TAPERQD #18 tab 04/22/17 <Bhargav Cohen - 05/17/17 09:16> Allergies Allergy/AdvReac Type Severity Reaction Status Date / Time No Known Allergies Allergy Verified 04/17/17 10:12 <Bhargav Cohen - 05/17/17 09:16> PFSH Patient Stated Medical History Alzheimer's Disease Yes: "early per patient" Angina Yes Coronary Artery Disease Yes Hypertension Yes Myocardial Infarction Yes Chronic Obstructive Pulmonary Yes Disease (COPD) Sleep Apnea Yes Diabetes Mellitus Type 2 Yes Gastroesophageal Reflux Yes Disease Hx Renal Disease No Osteoarthritis Yes: DJD Other Musculoskeletal Yes: PERIPHERAL NEUROPATHY, FIBROMYALGIA <Bhargav Cohen Brendan 05/17/17 09:16> Surgical History: No surgical hx other than pilonidal cyst <CliveTeodoro 05/17/17 05:32> - Social History Current residence: Apartment/Private Home <CliveTeodoro 05/17/17 05:32> Physical Exam - Limitations Limitations: no limitations <CliveTeodoro 05/17/17 05:32> - General General appearance: alert, in distress (patient appears in some respiratory distress, as he refuses to lie even with the head elevated on the gurney, but instead inched himself down to the end of the bed so that he could sit upright.) <CliveTeodoro 05/17/17 05:32> - Normal Exams: Head:: Normocephalic without trauma <[facility] 05/17/17 05:32> Eyes:: Pupils are PERRLA w/ EOMI, No scleral icterus, irritation, or foreign bodies noted <[facility] 05/17/17 05:32> ENMT:: No facial trauma, nasal exudates, pharyngeal erythema, or exudates are noted <[facility] 05/17/17 05:32> Neck:: Full range of motion, without adenopathy, JVD, bruits or thyromegaly < [facility] 05/17/17 05:32> Abdomen:: Bowel sounds positive, soft, non-tender, non-distended, no hepatosplenomegaly, masses or bruits noted <[facility] 05/17/17 05:32> Lymphatic:: No lymphadenopathy, or lymphedema noted <[facility] 05:32> Musculoskeletal:: No tenderness, or deformity noted, good range of motion, all extremities <[facility] 05/17/17 05:32> Integumentary:: No rashes, hives, or bruising noted, hair and nails, without abnormality <[facility] 05/17/17 05:32> Neurological:: Patient is alert, and oriented, cranial nerves, motor/sensory/ cerebellar, exams w/o gross deficits, to observation <Teodoro Duffy 05/17 05:32> Psychiatric:: Patient exhibits, appropriate attention, emotion and affect < Teodoro Duffy 05/17/17 05:32> - Chest Chest inspection: Present: normal inspection, symmetric chest wall rise. Absent : tenderness <Teodoro Duffy 05/17/17 05:32> - Respiratory Respiratory exam: Present: wheezes, accessory muscle use, prolonged expiratory phase. Absent: normal lung sounds bilaterally (course breath sounds bilaterally ) <DuffyTeodoro 05/17/17 05:32> - Cardiovascular Cardiovascular exam: Present: tachycardia, normal heart sounds <Teodoro Duffy 05/17/17 05:32> Course Vital Signs Temperature 99.7 F 05/17/17 05:14 Pulse Rate 130 H 05/17/17 05:14 Respiratory Rate 28 H 05/17/17 05:14 Blood Pressure 160/72 H 05/17/17 05:14 Pulse Oximetry 92 05/17/17 05:14 Temperature 99.7 F 05/17/17 05:14 Pulse Rate 133 H 05/17/17 07:30 Respiratory Rate 28 H 05/17/17 05:34 Blood Pressure 137/71 05/17/17 07:30 Pulse Oximetry 91 05/17/17 07:30 <Bhargav Cohen E - 05/17/17 09:16> Vital Signs Temperature 99.7 F 05/17/17 05:14 Pulse Rate 130 H 05/17/17 05:14 Respiratory Rate 28 H 05/17/17 05:14 Blood Pressure 160/72 H 05/17/17 05:14 Pulse Oximetry 92 05/17/17 05:14 Temperature 99.7 F 05/17/17 05:14 Pulse Rate 133 H 05/17/17 07:30 Respiratory Rate 28 H 05/17/17 05:34 Blood Pressure 137/71 05/17/17 07:30 Pulse Oximetry 91 05/17/17 07:30 <Teodoro Duffy 05/17/17 05:50> Dyspnea - MDM Narrative Medical decision making narrative: Labs reviewed, white count is 5.0, CMP within reason, lactate 1.3 with BNP greater than 600. Patient respirations increased to 45 with pulse of 140. He was requiring 6 L of oxygen. Albuterol nebulizer and Ativan did not resolve issues. He was given Solu-Medrol 125 mg IV. He became more short of breath and respiratory was consult with BiPAP being started. Patient's symptoms improved dramatically with BiPAP. Respiratory viral panel negative. Chest x-ray shows no active pneumonia. Blood cultures were obtained and patient has been given IV fluid bolus. Hospitalist consultation and patient will be admitted for observation.. <Bhargav Cohen - 05/17/17 09:16> Patient given DuoNeb 2 - oxygenation and dyspnea improving EKG - Pt disposed to Dr. Cohen at 0600 Pending: CBC - CMP - Troponin - Lactate - Pro BNP - CXR - <Teodoro Duffy - 05/17/17 05:50> - Differential Diagnosis Differential diagnosis: Likely: Acute exacerbation, PE, Pneumonia, COPD exacerbation, Pulmonary edema systolic, Pulmonary edema dystolic, ARDS, Foreign body in trachea <Bhargav Cohen - 05/17/17 09:16> - Medical Records Attestation: I reviewed the patient's medical records. <Bhargav Cohen - 05/17 09:16> - Lab Data Attestation: I reviewed the patient's lab results. <Bhargav Cohen - 05/17/17 09:16> Result diagrams: 05/17/17 06:10 05/17/17 06:10 <Bhargav Cohen - 05/17/17 09:16> Lab Results 05/17/17 05/17/17 05/17/17 Range/Units 06:10 06:10 06:52 WBC 5.0 (4.5-11.0) T/MM3 RBC 4.08 L (4.50-5.90) M/MM3 Hgb 12.3 L (13.5-17.5) GM/DL Hct 40.8 L (41-53) % MCV 100.0 (80-100) UM3 MCH 30.1 (26-34) UUG MCHC 30.1 L (31-37) GM/DL RDW Std Deviation 47.4 (36.9-50.2) FL Plt Count 189 (130-400) T/MM3 MPV 12.3 (9.4-12.4) UM3 Immature Gran % (Auto) Not performed Neut % (Auto) Not performed Lymph % (Auto) Not performed [place] % (Auto) Not performed Eos % (Auto) Not performed Baso % (Auto) Not performed Neut # (Auto) Not performed Lymph # (Auto) Not performed [place] # (Auto) Not performed Eos # (Auto) Not performed Baso # (Auto) Not performed Abs Immat Gran (auto) Not performed Neutrophils % (Manual) 71.0 H (33-66) % Band Neutrophils % 3.0 (0-6) % Lymphocytes % (Manual) 11.0 L (23-45) % Reactive Lymphs % 1.0 H (0-0) % Monocytes % (Manual) 9.0 (0-9.0) % Eosinophils % (Manual) 1.0 (0-4) % Metamyelocytes % 4.0 H (0-0) % Neutrophils # (Manual) 3.6 (1.8-7.7) T/MM3 Band Neutrophils # 0.2 T/MM3 Lymphocytes # (Manual) 0.6 L (1-4.8) T/MM3 Abs React Lymphs (Man) 0.1 H (0-0) T/MM3 Monocytes # (Manual) 0.5 (0-0.8) T/MM3 Eosinophils # (Manual) 0.1 (0-0.5) T/MM3 Metamyelocytes # 0.2 T/MM3 RBC Morph Comment Normal Turbidity < 20 (0-20) Sodium 141 (134-144) MEQ/L Potassium 4.2 (3.6-5) MEQ/L Chloride 96 L (98-107) MEQ/L Carbon Dioxide 37 H (22-30) MEQ/L Anion Gap 8 (5-15) MEQ/L BUN 23.0 H (9-20) MG/DL Creatinine 0.8 (0.8-1.5) MG/DL GFR Calculation 98 BUN/Creatinine Ratio 29 H (6-26) RATIO Glucose 164 H (75-110) MG/DL Calculated Osmolality 279 (261-280) MOSM/KG Calcium 9.4 (8.4-10.2) MG/DL Total Bilirubin 0.20 (0.20-1.30) MG/DL Conjugated Bilirubin 0.00 (0.00-0.30) MG/DL Unconjugated Bilirubin 0.00 (0.00-1.1) MG/DL Icterus Index < 2 (0-7) AST 20 (17-59) U/L ALT 29 (21-72) U/L Alkaline Phosphatase 80 (38-126) U/L Troponin I 0.015 (0-0.12) ng/ml B-Natriuretic Peptide 633 H (0-175) pg/mL Total Protein 7.1 (6.3-8.2) G/DL Albumin 4.2 (3.5-5.0) G/DL Globulin 2.9 (2.4-3.6) G/DL Albumin/Globulin Ratio 1.4 (1.1-2.2) RATIO Plasma Lactate 1.3 (0.6-2.2) MMOL/L Specimen Hemolysis < 15 (0-25) Adenovirus (PCR) Negative (Negative) B.parapertussis DNA PCR Negative (Negative) C. pneumoniae DNA (PCR) Negative (Negative) Coronavirus OC43 (PCR) Negative (Negative) Coronavirus HKU1 (PCR) Negative (Negative) Coronavirus 229E (PCR) Negative (Negative) Coronavirus NL63 (PCR) Negative (Negative) Human Metapneumovir PCR Negative (Negative) Influenza Type B (PCR) Negative (Negative) M. pneumoniae (PCR) Negative (Negative) Parainfluenza 1 (PCR) Negative (Negative) Parainfluenza 2 (PCR) Negative (Negative) Parainfluenza 3 (PCR) Negative (Negative) Parainfluenza 4 (PCR) Negative (Negative) RSV (PCR) Negative (Negative) Entero/Rhino (PCR) Negative (Negative) <Bhargav Cohen E - 05/17/17 09:16> Lab Results 05/17/17 05/17/17 05/17/17 Range/Units 06:10 06:10 06:52 WBC 5.0 (4.5-11.0) T/MM3 RBC 4.08 L (4.50-5.90) M/MM3 Hgb 12.3 L (13.5-17.5) GM/DL Hct 40.8 L (41-53) % MCV 100.0 (80-100) UM3 MCH 30.1 (26-34) UUG MCHC 30.1 L (31-37) GM/DL RDW Std Deviation 47.4 (36.9-50.2) FL Plt Count 189 (130-400) T/MM3 MPV 12.3 (9.4-12.4) UM3 Immature Gran % (Auto) Not performed Neut % (Auto) Not performed Lymph % (Auto) Not performed [place] % (Auto) Not performed Eos % (Auto) Not performed Baso % (Auto) Not performed Neut # (Auto) Not performed Lymph # (Auto) Not performed [place] # (Auto) Not performed Eos # (Auto) Not performed Baso # (Auto) Not performed Abs Immat Gran (auto) Not performed Neutrophils % (Manual) 71.0 H (33-66) % Band Neutrophils % 3.0 (0-6) % Lymphocytes % (Manual) 11.0 L (23-45) % Reactive Lymphs % 1.0 H (0-0) % Monocytes % (Manual) 9.0 (0-9.0) % Eosinophils % (Manual) 1.0 (0-4) % Metamyelocytes % 4.0 H (0-0) % Neutrophils # (Manual) 3.6 (1.8-7.7) T/MM3 Band Neutrophils # 0.2 T/MM3 Lymphocytes # (Manual) 0.6 L (1-4.8) T/MM3 Abs React Lymphs (Man) 0.1 H (0-0) T/MM3 Monocytes # (Manual) 0.5 (0-0.8) T/MM3 Eosinophils # (Manual) 0.1 (0-0.5) T/MM3 Metamyelocytes # 0.2 T/MM3 RBC Morph Comment Normal Turbidity < 20 (0-20) Sodium 141 (134-144) MEQ/L Potassium 4.2 (3.6-5) MEQ/L Chloride 96 L (98-107) MEQ/L Carbon Dioxide 37 H (22-30) MEQ/L Anion Gap 8 (5-15) MEQ/L BUN 23.0 H (9-20) MG/DL Creatinine 0.8 (0.8-1.5) MG/DL GFR Calculation 98 BUN/Creatinine Ratio 29 H (6-26) RATIO Glucose 164 H (75-110) MG/DL Calculated Osmolality 279 (261-280) MOSM/KG Calcium 9.4 (8.4-10.2) MG/DL Total Bilirubin 0.20 (0.20-1.30) MG/DL Conjugated Bilirubin 0.00 (0.00-0.30) MG/DL Unconjugated Bilirubin 0.00 (0.00-1.1) MG/DL Icterus Index < 2 (0-7) AST 20 (17-59) U/L ALT 29 (21-72) U/L Alkaline Phosphatase 80 (38-126) U/L Troponin I 0.015 (0-0.12) ng/ml B-Natriuretic Peptide 633 H (0-175) pg/mL Total Protein 7.1 (6.3-8.2) G/DL Albumin 4.2 (3.5-5.0) G/DL Globulin 2.9 (2.4-3.6) G/DL Albumin/Globulin Ratio 1.4 (1.1-2.2) RATIO Plasma Lactate 1.3 (0.6-2.2) MMOL/L Specimen Hemolysis < 15 (0-25) Adenovirus (PCR) Negative (Negative) B.parapertussis DNA PCR Negative (Negative) C. pneumoniae DNA (PCR) Negative (Negative) Coronavirus OC43 (PCR) Negative (Negative) Coronavirus HKU1 (PCR) Negative (Negative) Coronavirus 229E (PCR) Negative (Negative) Coronavirus NL63 (PCR) Negative (Negative) Human Metapneumovir PCR Negative (Negative) Influenza Type B (PCR) Negative (Negative) M. pneumoniae (PCR) Negative (Negative) Parainfluenza 1 (PCR) Negative (Negative) Parainfluenza 2 (PCR) Negative (Negative) Parainfluenza 3 (PCR) Negative (Negative) Parainfluenza 4 (PCR) Negative (Negative) RSV (PCR) Negative (Negative) Entero/Rhino (PCR) Negative (Negative) <Teodoro Duffy - 05/17/17 05:50> - Radiology Data Attestation: I reviewed the patient's radiology results. <Bhargav Cohen 12/24 09:16> Disposition Clinical Impression: Acute exacerbation of chronic obstructive airways disease , Acute and chronic respiratory failure with hypercapnia <Bhargav Cohen 05/17/17 09:16> Disposition: 01 Discharged Home, Self-Care <Bhargav Cohen 05/17/17 09:16> Condition: Stable <Bhargav Cohen 05/17/17 09:16> Instructions: <Bhargav Cohen - 05/17/17 09:16> Prescriptions: No Action Gabapentin 300 mg PO TID #0 cap Omeprazole 40 mg PO DAILY #0 cap Hydrocodone/APAP 7.5/325 [[place] 7.5/325] 1 tab PO BID Simvastatin 20 mg PO HS Itraconazole 200 mg PO BID Nitroglycerin [Nitrostat] 0.4 mg SL Q5MIN3 PRN PRN Reason: CHEST PAIN Albuterol/Ipratropium [Duoneb] 1 unit AEROSOL QID Metformin [Glucophage] 500 mg PO BIDWM Furosemide [Lasix] 20 mg PO DAILY buPROPion HCl [Bupropion HCl Sr] 150 mg PO BID Atenolol [Tenormin] 25 mg PO DAILY Aspirin 81 mg PO DAILY predniSONE [Prednisone] 10 mg PO TAPERQD #18 tab LORazepam [Ativan] 0.5 mg PO Q4HR PRN #30 tab PRN Reason: Air Hunger/Anxiety Citalopram [Celexa] 40 mg PO DAILY Hydrocodone/APAP 7.5/325 [[place] 7.5/325] 1 tab PO Q6H PRN #10 tab PRN Reason: Pain <Bhargav Cohen - 05/17/17 09:16> Referrals: Zak Odom MD [Family Provider] - <Bhargav Cohen - 05/17 09:16> Forms: <Bhargav Cohen - 05/17/17 09:16> Time of Disposition: 09:16 <Bhargav Cohen - 05/17/17 09:16> - Seen By: physician <Bhargav Cohen - 05/17/17 09:16>
[2017-05-17] MEDS ORDERED: NS 1,000 ML IV ONE (05:44)
[2017-05-17] MEDS ORDERED: LORazepam 1 MG TABLET PO ONE (06:16)
[2017-05-17] MEDS ORDERED: METHYLPREDNISOLONE SOD SUCC 125mg/2ml INJECTION IM ONE (06:26)
--- NOTE | 2017-05-17 07:41 | XRay Report ---
INDICATION: dyspnea with tachycardia PROCEDURE: CHEST 2-VIEWS UPRIGHT (PA & LAT) Encounter: Initial COMPARISON: April 19, 2017 and June 25, 2015 FINDINGS: Persistent area of probable scarring in the lingula. Lungs are otherwise clear. No pleural effusion or pneumothorax. Heart size and mediastinal contours are stable. Pulmonary vascularity is normal. Impression: Stable chest with left basilar scarring but no focal pneumonia. .
[2017-05-17] MEDS ORDERED: ONDANSETRON 4 MG/2 ML INJECTION IVP PRN (10:08)
[2017-05-17] MEDS ORDERED: ALBUTEROL/IPRATROPIUM 2.5mg-0.5mg/3ml NEB AEROSOL PRN (10:11)
[2017-05-17] MEDS ORDERED: GLUCOSE ORAL GEL 40% 37.5gm PO PRN (10:12)
[2017-05-17] MEDS: SALINE FLUSH 10ml SYRINGE IVF PRN ×3 (10:15→17:50)
[2017-05-17] MEDS ORDERED: FALL RISK - PHARMACY CONSULT XX ONE (10:32)
[2017-05-17] MEDS: ALBUTEROL/IPRATROPIUM 2.5mg-0.5mg/3ml NEB AEROSOL SCH ×3 (11:05→18:57)
[2017-05-17] MEDS: NS 1,000 ML IV SCH ×2 (11:20→22:42)
[2017-05-17] MEDS ORDERED: IOHEXOL 350mg/ml 75ml INJECTION ONE (11:58)
[2017-05-17] MEDS ORDERED: SALINE FLUSH 10ml SYRINGE ONE (11:58)
--- NOTE | 2017-05-17 14:02 | History & Physical Report ---
History of Present Illness Date: 05/17/17 Chief complaint: dyspnea, acute on chronic hypoxia, COPD exacerbation HPI: oHward Moreno (Don) is a 61-year-old male patient of Dr. Zak Odom who has a significant history of COPD with chronic home oxygen use at 5L. He presented to [facility] [place] [facility] ED today, 05/17/17, via EMS with his , Leticia, for evaluation of sudden acute dyspnea. As he is on BiPAP at the time of exam, his history is obtained from his in addition to his prior medical records, nursing notes and ED records. Chaz was recently admitted to [facility] on 04/17/17 for pneumonia and was discharged home on 04/22/17. His reports that he had been doing well and was even able to reduce his home oxygen to 4.5L instead of his typical 5L. He continues to receive home health but had been released from the care of his physical therapist and the occupational therapist since he was functioning so well. His reports that yesterday, 05/16/17, he started to complain of not feeling well. His home health nurse took his vitals which were reportedly "jenniffer high" per his and he was noted to be febrile at that time with a temperature of 103 with a heart rate between 140-150. He also complained of increased dyspnea requiring him to sit in his scooter all night. His home health nurse has recommended and encouraged that he come to the ED yesterday but he refused. Throughout the night he became increasingly more short of breath and finally consented to being evaluated in the ED this morning. Upon arrival to the ED, his temperature was elevated at 99.7, heart rate 130, respiratory rate 28, blood pressure 160/72 and pulse ox 92% on 5L NC. Labs were obtained and revealed WBC 5.0 with 71% neutrophils and 3% bands. Mild anemia noted with hemoglobin at 12.3. CMP was stable and troponin was 0.015. BNP was slightly elevated at 633. Initial lactate was 1.3 and decreased to 0.9 prior to admission. Respiratory panel was negative. CXR revealed a stable chest with left basilar scarring but no focal pneumonia. Due to his respiratory distress, he was given DuoNeb treatments, Solu-Medrol 125mg IV and ativan and placed on BiPAP with some improvement. Dr. Lopez was consulted and he was admitted into observation status for further evaluation and treatment. Review of Systems All systems PM: 10-point ROS was reviewed, no additional remarkable complaints except - Constitutional Constitutional: Present: fatigue, fever(s), weakness. Absent: chills, night sweats - EENMT Eyes: Absent: change in vision, photophobia Ears: Absent: ear pain Balance: Absent: falling to one side Nose: Absent: nosebleeds Mouth/Throat: Present: dry mouth. Absent: sore throat - Cardiovascular Cardiovascular: Present: dyspnea on exertion, orthopnea, edema. Absent: chest pain, palpitations, syncope Rhythm: Present: regular rhythm Vascular: Present: pedal edema. Absent: pallor of an extermity, unilateral swelling - Respiratory Respiratory: Present: dyspnea, dyspnea on exertion, wheezing. Absent: cough, hemoptysis - Gastrointestinal Gastrointestinal: Absent: abdominal pain, diarrhea, nausea, vomiting - Genitourinary Genitourinary: Absent: dysuria, flank pain, hematuria - Musculoskeletal Musculoskeletal: Present: muscle weakness. Absent: deformity - Integumentary/Breasts Integumentary: Absent: rash - Neurological Neurological: Present: weakness. Absent: confusion, convulsions, dizziness - Psychiatric Psychiatric: Present: anxiety - Endocrine Endocrine: Absent: heat intolerance, polydipsia - Hematologic/Lymphatic Hematologic/Lymphatic: Absent: easy bleeding - Allergic/Immunologic Allergic/Immunologic: Absent: seasonal rhinorrhea Past Medical History Patient Stated Medical History Alzheimer's Disease Angina Coronary Artery Disease Hypertension Myocardial Infarction COPD Sleep Apnea Diabetes Mellitus Type 2 GERD Osteoarthritis Peripheral neuropathy. Fibromyalgia Depression Chronic hypoxia with home oxygen dependence at 5L. Tobacco dependency. Peripheral vascular disease. Morbid obesity - BMI >40. Surgical History: No surgical hx other than pilonidal cyst. Family History Updates: Unable to obtain as patient is on BiPAP. - Social History Smoking status: Current every day smoker Packs per day: 1 Packs-years: 50 Substance use type: does not use Alcohol intake frequency: does not drink Housing: house Household members: spouse (Leticia) Does patient use chewing tobacco?: No Current residence: Apartment/Private Home Social history: PCP - Dr. Odom. Medications Home Medications Medication Instructions Recorded Confirmed Type Gabapentin 300 mg PO TID #0 cap 06/19/15 05/17/17 History Omeprazole 40 mg PO DAILY #0 cap 06/19/15 05/17/17 History Albuterol/Ipratropium [Duoneb] 1 unit AEROSOL QID 04/17/17 05/17/17 History Aspirin 81 mg PO DAILY 04/17/17 05/17/17 History Atenolol [Tenormin] 25 mg PO DAILY 04/17/17 05/17/17 History Citalopram [Celexa] 40 mg PO DAILY 04/17/17 05/17/17 History Furosemide [Lasix] 20 mg PO DAILY 04/17/17 05/17/17 History Hydrocodone/APAP 7.5/325 [[place] 1 tab PO BID 04/17/17 05/17/17 History 7.5/325] Itraconazole 200 mg PO BID 04/17/17 05/17/17 History Metformin [Glucophage] 500 mg PO BIDWM 04/17/17 05/17/17 History Nitroglycerin [Nitrostat] 0.4 mg SL Q5MIN3 PRN 04/17/17 05/17/17 History Simvastatin 20 mg PO HS 04/17/17 05/17/17 History buPROPion HCl [Bupropion HCl Sr] 150 mg PO BID 04/17/17 05/17/17 History Allergies Allergy/AdvReac Type Severity Reaction Status Date / Time No Known Allergies Allergy Verified 04/17/17 10:12 Exam Vital Signs: Temperature 97.3 F 05/17/17 10:09 Pulse Rate 110 H 05/17/17 13:02 Respiratory Rate 37 H 05/17/17 13:02 Blood Pressure 141/64 H 05/17/17 10:09 Pulse Oximetry 95 05/17/17 13:02 Telemetry Rhythm: Sinus Tachycardia Height/Weight/BMI: Height 6 ft 1 in Weight 305 lb 5.443 oz Body Mass Index 40.2 Comments: Patient is seen in the ED, trauma room A, with his at the bedside. Currently resting with BiPAP in place and awakens easily with soft touch/voice stimuli. - Constitutional Present: mild distress, well nourished, well developed, morbidly obese, cooperative - Routine HEENT Exam Head: Present: normocephalic, atraumatic Eye: Present: PERRL. Absent: conjunctival icterus Comments: unable to fully assess mouth due to BiPAP. - Routine Neck Exam Present: supple, full ROM, trachea midline - Routine Chest/Breast/Axilla Exam Chest wall: Absent: pacemaker - Routine Respiratory Exam Present: accessory muscle use, dyspnea, decreased breath sounds, respiratory distress (moderate on BiPAP), diminished air movement Comments: course breath sounds bilaterally. - Routine Cardiovascular Exam Present: S1, S2, tachycardia - Routine Abdominal Exam Present: soft, normoactive bowel sounds, non distended, non tender. Absent: rebound, guarding Comments: area of ecchymosis noted to abdomen which reports is from previous admission and Lovenox shots. - Routine Extremities Exam Present: edema (2-3+ bilaterally), non tender, pulses intact - Routine Back/Spine/Pelvis Exam Back/Spine: Absent: vertebral tenderness Comments: limited exam as patient is on bipap. - Routine Skin Exam Present: dry, warm. Absent: jaundice Comments: afebrile on exam with tylenol and ASA prior to arrival to hospital. Skin changes to lower extremities consistent with PVD including darkening of skin and scaling. - Routine Neurological Exam Present: alert, moving all extremities, normal speech - Routine Psychiatric Exam Present: cooperative Results - Labs CBC & Chem 7: 05/17/17 06:10 05/17/17 06:10 Microbiology Results: Microbiology 05/17/17 09:59 Peripheral/Iv Start Blood Culture - Preliminary Culture Initiated - Results Pending 05/17/17 09:49 Peripheral/Iv Start Blood Culture - Preliminary Culture Initiated - Results Pending - Imaging and Cardiology Chest x-ray Status: image reviewed by me Additional comments: Date of Exam: 05/17/17 Type of Exam(s): XR chest 2V Reason for Exam(s): dyspnea with tachycardia FINDINGS: Persistent area of probable scarring in the lingula. Lungs are otherwise clear. No pleural effusion or pneumothorax. Heart size and mediastinal contours are stable. Pulmonary vascularity is normal. Impression: Stable chest with left basilar scarring but no focal pneumonia. Assessment and Plan (1) Acute and chronic respiratory failure with hypercapnia Current visit: Yes Status: Acute (2) Acute exacerbation of chronic obstructive airways disease Current visit: Yes Status: Acute Assessment and Plan: Assessment: SIRS criteria - tachycardia, tachypnea, reported fever at home. Acute on chronic respiratory failure with hypercapnia and hypoxia - baseline home oxygen at 5L. COPD exacerbation. Coronary Artery Disease. Hypertension. Sleep Apnea. Diabetes Mellitus Type 2 - A1c on 04/17/17 was 6.4%. GERD. Osteoarthritis. Peripheral neuropathy. Fibromyalgia. Depression. Tobacco dependency. Peripheral vascular disease. Morbid obesity - BMI >40. Plan - 05/17/17 (Admission) Admit to observation status under the care of Dr. Lopez. Sepsis work up initiated in ED. Patient meeting SIRS criteria based on tachycardia, tachypnea and reported fevers at home without obvious source. Initial lactate was 1.4 with repeat lactate decreased to 0.9. Blood cultures pending. WBC stable at 5.0. CXR revealed left basilar scarring without focal pneumonia. Respiratory panel was negative. Patient was given DuoNeb treatments and Solu-Medrol 125mg IV in ED. Will continue respiratory care with DuoNeb treatments QID and Q6H PRN as well as Solu -Medrol 125mg IV Q6H. History of diabetes with A1c on 04/17/17 at 6.4%. Continue home medications and monitor blood sugars closely given treatment with steroids. Sliding scale insulin as indicated for hyperglycemia. Patient was placed on BiPAP in ED with improvement. Continue BiPAP as indicated. Ativan as needed for anxiety and agitation while on BiPAP. Will monitor closely on telemetry with continuous pulse oximetry. Oxygen as needed to maintain SAO2 between 90-95%, weaning as able to baseline of 5L. SCDs for DVT prophylaxis. Given sudden onset of dyspnea, will obtain CT angio chest for further evaluation of PE - results pending. NS at 100cc/hr for hydration given decreased oral intake as on BiPAP. Monitor daily weight closely for signs of fluid overload. Recheck labs in AM to monitor blood counts, electrolytes and renal function. Patient wishes to maintain FULL CODE status. Upon discharge, patient's care will be returned to his PCP, Dr. Odom. John Assessment as above with: Irregular 2.2 cm left lower lobe pulmonary nodule DVT Prophylaxis: SCD's GI Prophylaxis: other (Prilosec) Resuscitation Status: Full Code - Time spent with patient Time with patient PN: 70 minutes - Physician Narrative Physician: Michael Lopez MD Narrative: Date: 05/17/17 Time: 1349 Have independently interviewed and examined pt. Chart reviewed. Case discussed with ED provider and my PA. Care plan developed with my supervision; agree with above. Presents to ED secondary to increasing SOA and difficulty breathing. Symptoms onset yesterday, but reluctant for evaluation at that time. Work this morning so SOA that he knew he needed to seek help. Still smoking. Evaluated in ED. CXR without acute changes. Needing BiPAP for respiratory support. Placed in OBS for further evaluation and treatment. Lungs: decreased CV: tachy, regular Plan: OBS admission. BIPAP for respiratory support-patient is to have home trilogy vent. Solu-Medrol. Neb Treatments. Continued smoking is not a option. Sepsis Assessment - Evaluation SIRS Criteria: pulse > 90 beats/minute, RR > 20 Hospital Course Summary Disclaimer: The visit summary below is not to be considered part of the above Progress Note. Hospital Course: Plan - 05/17/17 (Admission) Admit to observation status under the care of Dr. Lopez. Sepsis work up initiated in ED. Patient meeting SIRS criteria based on tachycardia, tachypnea and reported fevers at home without obvious source. Initial lactate was 1.4 with repeat lactate decreased to 0.9. Blood cultures pending. WBC stable at 5.0. CXR revealed left basilar scarring without focal pneumonia. Respiratory panel was negative. Patient was given DuoNeb treatments and Solu-Medrol 125mg IV in ED. Will continue respiratory care with DuoNeb treatments QID and Q6H PRN as well as Solu -Medrol 125mg IV Q6H. History of diabetes with A1c on 04/17/17 at 6.4%. Continue home medications and monitor blood sugars closely given treatment with steroids. Sliding scale insulin as indicated for hyperglycemia. Patient was placed on BiPAP in ED with improvement. Continue BiPAP as indicated. Ativan as needed for anxiety and agitation while on BiPAP. Will monitor closely on telemetry with continuous pulse oximetry. Oxygen as needed to maintain SAO2 between 90-95%, weaning as able to baseline of 5L. SCDs for DVT prophylaxis. Given sudden onset of dyspnea, will obtain CT angio chest for further evaluation of PE - results pending. NS at 100cc/hr for hydration given decreased oral intake as on BiPAP. Monitor daily weight closely for signs of fluid overload. Recheck labs in AM to monitor blood counts, electrolytes and renal function. Patient wishes to maintain FULL CODE status. Upon discharge, patient's care will be returned to his PCP, Dr. Odom.
[2017-05-17] MEDS ORDERED: IOHEXOL 350mg/ml 100ml INJECTION ONE (14:39)
--- NOTE | 2017-05-17 14:58 | CT Scan Report ---
Indication: acute dyspnea/hypoxia PROCEDURE: CT angio pulm emboli: Encounter: Initial Comparison: Chest x-ray from today Technique: Axial CT pulmonary angiographic phase images were performed through the chest after the administration of intravenous contrast. Coronal and Sagittal MIP reconstructed images were created and reviewed. Automated Exposure Control and Iterative Reconstruction dose reducing techniques were utilized. Contrast: Omnipaque 350 145 mL Findings: Pulmonary arteries: Initial contrast was injection was nondiagnostic so repeat injection was performed. Exam is diagnostic to the segmental pulmonary arterial level. There are no defects identified to confirm a pulmonary embolus. Subsegmental pulmonary arteries cannot be well evaluated due to contrast bolus. Other findings: Significant respiratory motion artifact. There is bilateral lower lobe atelectasis. Irregular somewhat spiculated 2.2 cm left lower lobe pulmonary nodule on axial image #42. No additional discrete pulmonary nodules or masses. Linear scarring within the lingula with areas of right basilar atelectasis or scar. No pleural effusion or pneumothorax. The central airways are patent. No axillary or mediastinal lymphadenopathy. Heart size is mildly enlarged. No pericardial effusion. The upper abdomen shows no acute findings. Possible left renal cyst, incompletely evaluated. Impression: 1. No pulmonary embolus. 2. Irregular 2.2 cm left lower lobe pulmonary nodule raising concern for a primary lung malignancy. Recommend further evaluation with PET/CT or biopsy. .
[2017-05-17] MEDS: METHYLPREDNISOLONE SOD SUCC 125mg/2ml INJECTION IVP SCH ×2 (15:04→21:35)
[2017-05-17] MEDS: GABAPENTIN 300 MG CAPSULE PO SCH ×2 (15:04→21:35)
[2017-05-17] MEDS: INSULIN ASPART 100unit/ml INJECTION SQ PRN ×2 (15:15→21:40)
[2017-05-17] MEDS: --POM--METFORMIN 500 MG TABLET PO SCH (16:35)
[2017-05-17] MEDS: MORPHINE SULFATE 4mg INJECTION IVP PRN (17:49)
[2017-05-17] MEDS: BUDESONIDE INH.SOLN 0.5mg/2ml NEB AEROSOL SCH (18:57)
[2017-05-17] MEDS: SIMVASTATIN 20 MG TABLET PO SCH (21:35)
[2017-05-17] MEDS: BuPROPion SR 150mg (12HR) TABLET PO SCH (21:35)
[2017-05-17] MEDS: ITRACONAZOLE 200 MG PO SCH (21:36)
[2017-05-17] MEDS: HYDROCODONE/APAP 7.5 MG/325 MG TABLET PO SCH (21:37)
[2017-05-18] MEDS ORDERED: CEFTRIAXONE 2 GM in NS 100 ML IV SCH (01:15)
[2017-05-18] MEDS: METHYLPREDNISOLONE SOD SUCC 125mg/2ml INJECTION IVP SCH ×4 (02:55→20:55)
[2017-05-18] MEDS: NITROGLYCERIN 0.4 MG SUBLINGUAL TABLET SL PRN (04:53)
[2017-05-18] MEDS: INSULIN ASPART 100unit/ml INJECTION SQ PRN ×4 (06:06→22:02)
[2017-05-18] MEDS: OMEPRAZOLE 20 MG CAPSULE PO SCH (06:06)
[2017-05-18] MEDS ORDERED: MENTHOL COUGH DROPS (RICOLA) MM PRN (08:19)
[2017-05-18] MEDS: GUAIFENESIN LA 600 MG TABLET PO SCH ×2 (09:01→20:52)
[2017-05-18] MEDS: HYDROCODONE/APAP 7.5 MG/325 MG TABLET PO SCH ×2 (09:03→21:07)
[2017-05-18] MEDS: NS 1,000 ML IV SCH ×3 (09:04→21:55)
[2017-05-18] MEDS: ASPIRIN 81 MG CHEWABLE TABLET PO SCH (09:04)
[2017-05-18] MEDS: BuPROPion SR 150mg (12HR) TABLET PO SCH ×2 (09:05→20:54)
[2017-05-18] MEDS: GABAPENTIN 300 MG CAPSULE PO SCH ×3 (09:05→20:54)
[2017-05-18] MEDS: FUROSEMIDE 20 MG TABLET PO SCH (09:05)
[2017-05-18] MEDS: ITRACONAZOLE 200 MG PO SCH ×2 (09:05→20:55)
[2017-05-18] MEDS: ATENOLOL 25 MG TABLET PO SCH (09:05)
[2017-05-18] MEDS: CITALOPRAM 40 MG TABLET PO SCH (09:05)
[2017-05-18] MEDS: ALBUTEROL/IPRATROPIUM 2.5mg-0.5mg/3ml NEB AEROSOL SCH ×4 (09:31→19:51)
--- NOTE | 2017-05-18 09:35 | Progress Note ---
- Date 05/18/17 Subjective: Chaz is seen today in follow up for his COPD exacerbation with acute on chronic respiratory failure, hypoxia and hypercapnia. He is seen while sitting up in his recliner watching TV with his resting in the bed. He reports that he is feeling better and is much more alert today. He complains of increased cough with new sputum production today. No known fevers or chills though his reports that he had a fever at home prior to admission. No chest pain, abdominal pain, nausea, vomiting or dysuria. He feels that his breathing is a little better today, though he admits that he does not recall most of yesterday. He is currently on 6L NC with some mild conversational dyspnea at 4- 5 words. His appetite is good and bowels are moving. Repeat labs this morning revealed a new leukopenia at 3.1 and slight increase in bands at 5%. 1 of the 2 blood cultures obtained on admission is positive for streptococcus with sensitivities pending. The telehospitalist doctor was notified over night and Rocephin 2g IV daily was initiated. Blood sugars remain elevated, ranging from 168-211. Troponins continue to trend up slowing - 0.015, 0.017, 0.029, 0.045 and 0.048 this morning. He continues to be slightly tachycardic with tachypnea. Urinary output is stable. He expresses frustration and confusion as to why he continues to have difficulty breathing. Discussed at length the importance of smoking cessation which he is open to doing. He states that he was successful with smoking cessation about 3 years ago but his "doctor won't keep giving him Chantix". He inquires about restarting Chantix to assist with his smoking cessation. Objective Vital signs: Temperature 96.0 F L 05/18/17 08:36 Pulse Rate 101 H 05/18/17 08:36 Respiratory Rate 16 05/18/17 08:36 Blood Pressure 157/91 H 05/18/17 08:36 Pulse Oximetry 94 05/18/17 00:18 Rhythm: Sinus Tachycardia Height/Weight/BMI: Height 6 ft 1 in Weight 305 lb 5.443 oz Body Mass Index 40.2 Comments: Patient sitting up in recliner with his resting the bed. Mild conversational dyspnea at 4-5 words with noted tachypnea and cough. - Constitutional Present: no acute distress, well nourished, well developed, morbidly obese, cooperative - Routine HEENT Exam Head: Present: normocephalic, atraumatic Eye: Present: PERRL. Absent: conjunctival icterus ENT: Present: mucous membranes moist - Routine Respiratory Exam Present: dyspnea, decreased breath sounds, diminished air movement Comments: minimal air movement bilaterally; productive cough on exam; mild conversational dyspnea at 4-5 words. - Routine Cardiovascular Exam Present: S1, S2, tachycardia - Routine Abdominal Exam Present: soft, normoactive bowel sounds, non tender, distended (mild) Comments: obese. - Routine Extremities Exam Present: edema (2+ bilaterally), non tender, full ROM, pulses intact Comments: bilateral lower extremity skin changes consistent with PVD including darkening and scaling of skin; no open lesions or wounds noted. - Routine Back/Spine/Pelvis Exam Back/Spine: Present: full ROM. Absent: vertebral tenderness - Routine Musculoskeletal Exam Musculoskeletal: Present: moving extremities well - Routine Skin Exam Present: dry, warm. Absent: jaundice Comments: afebrile. - Routine Neurological Exam Present: alert, oriented X3, CN II-XII intact, moving all extremities, normal speech. Absent: facial asymmetry - Routine Lymphatic Exam Lymphatic: Absent: lymphedema - Routine Psychiatric Exam Present: normal affect, cooperative Results - Labs CBC & Chem 7: 05/18/17 04:23 05/18/17 04:22 Microbiology Results: Microbiology 05/17/17 09:59 Peripheral/Iv Start Blood Culture - Preliminary Culture Initiated - Results Pending 05/17/17 09:49 Peripheral/Iv Start Gram Stain - Final 05/17/17 09:49 Peripheral/Iv Start Blood Culture - Preliminary Streptococcus species - Imaging and Cardiology CT scan - chest Status: image reviewed by me Additional comments: Date of Exam: 05/17/17 Type of Exam(s): CT angio pulm emboli Reason for Exam(s): acute dyspnea/hypoxia Comparison: Chest x-ray from today Technique: Axial CT pulmonary angiographic phase images were performed through the chest after the administration of intravenous contrast. Coronal and Sagittal MIP reconstructed images were created and reviewed. Automated Exposure Control and Iterative Reconstruction dose reducing techniques were utilized. Contrast: Omnipaque 350 145 mL Findings: Pulmonary arteries: Initial contrast was injection was nondiagnostic so repeat injection was performed. Exam is diagnostic to the segmental pulmonary arterial level. There are no defects identified to confirm a pulmonary embolus. Subsegmental pulmonary arteries cannot be well evaluated due to contrast bolus. Other findings: Significant respiratory motion artifact. There is bilateral lower lobe atelectasis. Irregular somewhat spiculated 2.2 cm left lower lobe pulmonary nodule on axial image #42. No additional discrete pulmonary nodules or masses. Linear scarring within the lingula with areas of right basilar atelectasis or scar. No pleural effusion or pneumothorax. The central airways are patent. No axillary or mediastinal lymphadenopathy. Heart size is mildly enlarged. No pericardial effusion. The upper abdomen shows no acute findings. Possible left renal cyst, incompletely evaluated. Impression: 1. No pulmonary embolus. 2. Irregular 2.2 cm left lower lobe pulmonary nodule raising concern for a primary lung malignancy. Recommend further evaluation with PET/CT or biopsy. Chest x-ray Status: image reviewed by me Additional comments: Date of Exam: 05/17/17 Type of Exam(s): XR chest 2V Reason for Exam(s): dyspnea with tachycardia FINDINGS: Persistent area of probable scarring in the lingula. Lungs are otherwise clear. No pleural effusion or pneumothorax. Heart size and mediastinal contours are stable. Pulmonary vascularity is normal. Impression: Stable chest with left basilar scarring but no focal pneumonia. Assessment and Plan (1) Acute exacerbation of chronic obstructive airways disease Current visit: Yes Status: Acute (2) Acute and chronic respiratory failure with hypercapnia Current visit: Yes Status: Acute Assessment and Plan: Assessment: Bacteremia secondary to streptococcus, acute - NEW DIAGNOSIS 05/18/10. Leukopenia, WBC 3.1 - NEW DIAGNOSIS 05/18/10. Irregular 2.2cm left lower lobe pulmonary nodule - NEW DIAGNOSIS 05/18/10. SIRS criteria - tachycardia, tachypnea, reported fever at home. Acute on chronic respiratory failure with hypercapnia and hypoxia - baseline home oxygen at 5L. COPD exacerbation. Anemia, unspecified, stable. Coronary Artery Disease. Hypertension. Sleep Apnea. Diabetes Mellitus Type 2 - A1c on 04/17/17 was 6.4%. GERD. Osteoarthritis. Peripheral neuropathy. Fibromyalgia. Depression. Tobacco dependency. Peripheral vascular disease. Morbid obesity - BMI >40. Plan - 05/18/17. Don reports that his breathing is a little better today and is he is more alert. New cough with sputum production. 1 of the 2 blood cultures obtained on admission is POSITIVE for Streptococcus. Night telehospitalist was notified and Rocephin 2g IV Q24 hours was initiated for antimicrobial coverage. Given new cough, will try and obtain a sputum culture. Mucinex for mucolytic effect. Ricola for cough. Continue respiratory care including nebulized treatments. Continue to encourage BiPAP as indicated and supplemental oxygen to maintain SAO2 between 90 -95%. Wean oxygen to baseline of 5L as able. Given sudden onset of dyspnea, CT angio chest was obtained and revealed no PE but did note 2.2cm left lower lobe pulmonary nodule raising concern for primary lung malignancy and recommended further evaluation. Will discuss consideration of pulmonary consult for further evaluation. Continue Solu-Medrol 125mg IV Q6 hours. Anticipate initiation of tapering in near future. Blood sugars remain elevated, most likely steroid effect, ranging from 160's-> 200. Continue sliding scale insulin. Given recent CT with contrast, will hold metformin and restart 05/19/17. Continue NS at 75cc/hr for hydration. Monitor urinary output and daily weight closely for signs of fluid over load. Oral intake is good. Consider discontinuation of fluids this afternoon. Ativan as needed for anxiety and agitation while on BiPAP. Troponins continue to trend up slowing - 0.015, 0.017, 0.029, 0.045 and 0.048 this morning. Will recheck troponin at 1030 and continue to monitor closely on telemetry. Patient denies chest pain. SCDs for DVT prophylaxis. Recheck labs in AM to monitor blood counts, electrolytes and renal function. Discussed at length with patient and family the importance of smoking cessation. He admits to wanting to stop smoking and inquired about initiation of Chantix. Continue Wellbutrin for smoking cessation. John With BC positive and starting IV antibiotics, will change admission status to inpatient. Anticipate greater than 2 midnights of care needed. DVT Prophylaxis: SCD's GI Prophylaxis: other (Prilosec) Resuscitation Status: Full Code - Time spent with patient Time with patient PN: 35 minutes Coordination of Care: >50% of visit spent providing counseling/coordination of care - Physician Narrative Physician: Michael Lopez MD Narrative: Date: 05/18/17 Time: 1400 Have independently interviewed and examined pt. Chart reviewed. Case discussed with my PA. Care plan developed with my supervision; agree with above. Doing alittle better. Breathing still short and congested, but not as dire and severe as yesterday. Trying to use BIPAP often. Eating okay. Lungs: decreased, little air movement. CV: regular AB: soft nt MSE: awake alert Plan: Change to inpatient admission due to positive BC, leukopenia, and persistence of symptoms--anticipate greater than 2 midnights of care needed. Rocephin initiated-check sensitivities. Stress the important of BiPAP vent use at home. STRESSED the critical need to NOT SMOKE!! Will continue steroids, possible decrease tomorrow. Continue with supportive care. Hospital Course Summary Disclaimer: The visit summary below is not to be considered part of the above Progress Note. Hospital Course: 05/17/17 Admission Admit to observation status under the care of Dr. Lopez. Sepsis work up initiated in ED. Patient meeting SIRS criteria based on tachycardia, tachypnea and reported fevers at home without obvious source. Initial lactate was 1.4 with repeat lactate decreased to 0.9. Blood cultures pending. WBC stable at 5.0. CXR revealed left basilar scarring without focal pneumonia. Respiratory panel was negative. Patient was given DuoNeb treatments and Solu-Medrol 125mg IV in ED. Will continue respiratory care with DuoNeb treatments QID and Q6H PRN as well as Solu -Medrol 125mg IV Q6H. History of diabetes with A1c on 04/17/17 at 6.4%. Continue home medications and monitor blood sugars closely given treatment with steroids. Sliding scale insulin as indicated for hyperglycemia. Patient was placed on BiPAP in ED with improvement. Continue BiPAP as indicated. Ativan as needed for anxiety and agitation while on BiPAP. Will monitor closely on telemetry with continuous pulse oximetry. Oxygen as needed to maintain SAO2 between 90-95%, weaning as able to baseline of 5L. SCDs for DVT prophylaxis. Given sudden onset of dyspnea, will obtain CT angio chest for further evaluation of PE - results pending. NS at 100cc/hr for hydration given decreased oral intake as on BiPAP. Monitor daily weight closely for signs of fluid overload. Recheck labs in AM to monitor blood counts, electrolytes and renal function. Patient wishes to maintain FULL CODE status. Upon discharge, patient's care will be returned to his PCP, Dr. Odom. 05/18/17 Don reports that his breathing is a little better today and is he is more alert. New cough with sputum production. 1 of the 2 blood cultures obtained on admission is POSITIVE for Streptococcus. Night telehospitalist was notified and Rocephin 2g IV Q24 hours was initiated for antimicrobial coverage. Given new cough, will try and obtain a sputum culture. Mucinex for mucolytic effect. Ricola for cough. Continue respiratory care including nebulized treatments. Continue to encourage BiPAP as indicated and supplemental oxygen to maintain SAO2 between 90 -95%. Wean oxygen to baseline of 5L as able. Given sudden onset of dyspnea, CT angio chest was obtained and revealed no PE but did note 2.2cm left lower lobe pulmonary nodule raising concern for primary lung malignancy and recommended further evaluation. Will discuss consideration of pulmonary consult for further evaluation. Continue Solu-Medrol 125mg IV Q6 hours. Anticipate initiation of tapering in near future. Blood sugars remain elevated, most likely steroid effect, ranging from 160's-> 200. Continue sliding scale insulin. Given recent CT with contrast, will hold metformin and restart 05/19/17. Continue NS at 75cc/hr for hydration. Monitor urinary output and daily weight closely for signs of fluid over load. Oral intake is good. Consider discontinuation of fluids this afternoon. Ativan as needed for anxiety and agitation while on BiPAP. Troponins continue to trend up slowing - 0.015, 0.017, 0.029, 0.045 and 0.048 this morning. Will recheck troponin at 1030 and continue to monitor closely on telemetry. Patient denies chest pain. SCDs for DVT prophylaxis. Recheck labs in AM to monitor blood counts, electrolytes and renal function. Discussed at length with patient and family the importance of smoking cessation. He admits to wanting to stop smoking and inquired about initiation of Chantix. Continue Wellbutrin for smoking cessation. With BC positive and starting IV antibiotics, will change admission status to inpatient. Anticipate greater than 2 midnights of care needed. Addendum entered and electronically signed by MARTITA Johnston 05/18/17 10: 47: Due to the patient's new bacteremia and sepsis as indicated by leukopenia, tachycardia and tachypnea as well as acute on chronic respiratory failure requiring BiPAP and increased oxygen demands, the patient's hospital admission status was changed to inpatient. He was started on Lovenox for additional DVT prophylaxis with pharmacy to manage.
[2017-05-18] MEDS: --POM--METFORMIN 500 MG TABLET PO SCH (10:00)
[2017-05-18] MEDS ORDERED: ENOXAPARIN - PHARMACY CONSULT MC ONE (10:47)
--- NOTE | 2017-05-18 11:39 | Pharmacy Consult ---
Pharmacy Consult-Lovenox - Consult Information ENOXAPARIN CONSULT: Today's SCr = 0.6 mg/dl. Calculated CrCl = 111 mL/min. Dosed for DVT prophylaxis (with 30% added to dose for morbidly-obese. This patient has a BMI of 39.7 kg/M2). Dosing for prophylaxis recommends adding 30% to dose for those with = or > 40 kg/M2. I decided to dose enoxaparin for obesity. Start Enoxaparin @ 50mg SQ q24h. Thank you.
[2017-05-18] MEDS: ENOXAPARIN 60 MG/0.6 ML INJECTION SQ SCH (13:02)
[2017-05-18] MEDS: BUDESONIDE INH.SOLN 0.5mg/2ml NEB AEROSOL SCH ×2 (13:17→19:51)
[2017-05-18] MEDS: SALINE FLUSH 10ml SYRINGE IVF PRN (20:53)
[2017-05-18] MEDS: CEFTRIAXONE 2 GM in NS 50 ML IV SCH (20:54)
[2017-05-18] MEDS: SIMVASTATIN 20 MG TABLET PO SCH (20:56)
[2017-05-19] MEDS: NITROGLYCERIN 0.4 MG SUBLINGUAL TABLET SL PRN ×3 (02:38→11:18)
[2017-05-19] MEDS: METHYLPREDNISOLONE SOD SUCC 125mg/2ml INJECTION IVP SCH ×4 (03:00→21:02)
[2017-05-19] MEDS: OMEPRAZOLE 20 MG CAPSULE PO SCH (06:30)
[2017-05-19] MEDS: BUDESONIDE INH.SOLN 0.5mg/2ml NEB AEROSOL SCH ×2 (06:57→19:26)
[2017-05-19] MEDS: ALBUTEROL/IPRATROPIUM 2.5mg-0.5mg/3ml NEB AEROSOL SCH ×4 (06:57→19:26)
[2017-05-19] MEDS: NS 1,000 ML IV SCH (10:07)
[2017-05-19] MEDS: ENOXAPARIN 60 MG/0.6 ML INJECTION SQ SCH (10:08)
[2017-05-19] MEDS: HYDROCODONE/APAP 7.5 MG/325 MG TABLET PO SCH ×3 (10:46→20:46)
[2017-05-19] MEDS ORDERED: acetaZOLAMIDE 250 MG TABLET PO ONE (10:51)
[2017-05-19] MEDS: GABAPENTIN 300 MG CAPSULE PO SCH ×3 (11:25→20:47)
[2017-05-19] MEDS: ASPIRIN 81 MG CHEWABLE TABLET PO SCH (11:25)
[2017-05-19] MEDS: FUROSEMIDE 20 MG TABLET PO SCH (11:25)
[2017-05-19] MEDS: BuPROPion SR 150mg (12HR) TABLET PO SCH ×2 (11:26→20:47)
[2017-05-19] MEDS: ATENOLOL 25 MG TABLET PO SCH (11:26)
[2017-05-19] MEDS: CITALOPRAM 40 MG TABLET PO SCH (11:26)
[2017-05-19] MEDS: METFORMIN 500 MG TABLET PO SCH ×2 (11:26→17:32)
[2017-05-19] MEDS: INSULIN ASPART 100unit/ml INJECTION SQ PRN ×3 (11:28→20:51)
[2017-05-19] MEDS: ITRACONAZOLE 200 MG PO SCH ×2 (11:28→20:47)
[2017-05-19] MEDS: GUAIFENESIN LA 600 MG TABLET PO SCH ×2 (11:34→20:46)
[2017-05-19] MEDS ORDERED: SALINE 0.65% NASAL SPRAY 44 ML BOTTLE EA NOSTRIL PRN (11:42)
--- NOTE | 2017-05-19 18:07 | Progress Note ---
- Date 05/19/17 Subjective: F/U: Acute on chronic respiratory failure with hypercapnia and hypoxia, COPD exacerbation. Sleeping soundly in chair this evening. Will waken briefly to verbal stimuli. at bedside and discussed case with her. Reports he has been wearing BIPAP more today. She notes he has some cough, but not moving sputum. Eating well. She reports that he told his son to get rid of all his cigarette and also to pull any cigarette out of patient's mouth if he would smoke again. understands importance of him not smoking. Objective Vital signs: Temperature 97.6 F 05/19/17 15:18 Pulse Rate 75 05/19/17 15:49 Respiratory Rate 18 05/19/17 15:36 Blood Pressure 151/75 H 05/19/17 15:18 Pulse Oximetry 94 05/19/17 15:36 Rhythm: Sinus Tachycardia Height/Weight/BMI: Weight 136.8 kg - Constitutional Present: well nourished, well developed, obese, somnolent - Routine HEENT Exam Head: Present: normocephalic, atraumatic - Routine Respiratory Exam Present: decreased breath sounds, prolonged expiratory phase, distant breath sounds, diminished air movement - Routine Cardiovascular Exam Present: RRR, no murmur - Routine Abdominal Exam Present: soft, non distended, non tender. Absent: normoactive bowel sounds - Routine Extremities Exam Present: edema (+2 chronic LE edema ). Absent: cyanosis, clubbing - Routine Musculoskeletal Exam Musculoskeletal: Present: no clubbing or cyanosis - Routine Skin Exam Present: dry, warm - Routine Neurological Exam Somnolent - Routine Psychiatric Exam Comments: Somnolent Results - Labs CBC & Chem 7: 05/19/17 04:33 05/19/17 04:33 - ABG Interpretation ABG results: 05/19/17 08:55 ABG pH 7.300 L ABG pCO2 83 H* ABG pO2 77 L ABG HCO3 41 H ABG Total CO2 43.3 H ABG O2 Saturation 94.0 L ABG Base Excess 11.1 H Assessment and Plan (1) Acute exacerbation of chronic obstructive airways disease Current visit: Yes Status: Acute (2) Acute and chronic respiratory failure with hypercapnia Current visit: Yes Status: Acute Assessment and Plan: Assessment Acute on chronic respiratory failure with hypercapnia and hypoxia - baseline home oxygen at 5L. COPD exacerbation. Bacteremia secondary to streptococcus viridans (1 of 2 BC from admission positive) Pulmonary nodule - Irregular 2.2cm left lower lobe pulmonary nodule Anemia, unspecified, stable Coronary Artery Disease Hypertension Sleep Apnea Diabetes Mellitus Type 2 - A1c on 04/17/17 was 6.4% GERD Osteoarthritis Peripheral neuropathy Fibromyalgia Depression Tobacco dependency Peripheral vascular disease Morbid obesity - BMI >40 Plan Continue with Rocephin for antimicrobial coverage. With lungs still very tight and congested, will continue with Solu-Medrol 125mg IV q 6 hours. Continue Neb treatments and acapella. Encourage use of BiPAP as much as able to help his chronic hypercapnea. Stressed with about the importance of him not smoking. She understand. Will consult with Dr Ashby for pulm evaluation. Will discontinue IVF. May restart metformin this evening. Sugars with elevation secondary to steroids. Did give Diamox 500mg x1 this am for fluid motivation and to help minimize contraction alkalosis. PT/OT to evaluate and initiate treatment tomorrow for his significant pulmonary debility. Monitor lab. Time spent with patient care 25 minutes. - Physician Narrative Narrative: Date: 05/19/17 Time: 1801 Hospital Course Summary Disclaimer: The visit summary below is not to be considered part of the above Progress Note. Hospital Course: 05/17/17 Admission Admit to observation status under the care of Dr. Lopez. Sepsis work up initiated in ED. Patient meeting SIRS criteria based on tachycardia, tachypnea and reported fevers at home without obvious source. Initial lactate was 1.4 with repeat lactate decreased to 0.9. Blood cultures pending. WBC stable at 5.0. CXR revealed left basilar scarring without focal pneumonia. Respiratory panel was negative. Patient was given DuoNeb treatments and Solu-Medrol 125mg IV in ED. Will continue respiratory care with DuoNeb treatments QID and Q6H PRN as well as Solu -Medrol 125mg IV Q6H. History of diabetes with A1c on 04/17/17 at 6.4%. Continue home medications and monitor blood sugars closely given treatment with steroids. Sliding scale insulin as indicated for hyperglycemia. Patient was placed on BiPAP in ED with improvement. Continue BiPAP as indicated. Ativan as needed for anxiety and agitation while on BiPAP. Will monitor closely on telemetry with continuous pulse oximetry. Oxygen as needed to maintain SAO2 between 90-95%, weaning as able to baseline of 5L. SCDs for DVT prophylaxis. Given sudden onset of dyspnea, will obtain CT angio chest for further evaluation of PE - results pending. NS at 100cc/hr for hydration given decreased oral intake as on BiPAP. Monitor daily weight closely for signs of fluid overload. Recheck labs in AM to monitor blood counts, electrolytes and renal function. Patient wishes to maintain FULL CODE status. Upon discharge, patient's care will be returned to his PCP, Dr. Odom. 05/18/17 Don reports that his breathing is a little better today and is he is more alert. New cough with sputum production. 1 of the 2 blood cultures obtained on admission is POSITIVE for Streptococcus. Night telehospitalist was notified and Rocephin 2g IV Q24 hours was initiated for antimicrobial coverage. Given new cough, will try and obtain a sputum culture. Mucinex for mucolytic effect. Ricola for cough. Continue respiratory care including nebulized treatments. Continue to encourage BiPAP as indicated and supplemental oxygen to maintain SAO2 between 90 -95%. Wean oxygen to baseline of 5L as able. Given sudden onset of dyspnea, CT angio chest was obtained and revealed no PE but did note 2.2cm left lower lobe pulmonary nodule raising concern for primary lung malignancy and recommended further evaluation. Will discuss consideration of pulmonary consult for further evaluation. Continue Solu-Medrol 125mg IV Q6 hours. Anticipate initiation of tapering in near future. Blood sugars remain elevated, most likely steroid effect, ranging from 160's-> 200. Continue sliding scale insulin. Given recent CT with contrast, will hold metformin and restart 05/19/17. Continue NS at 75cc/hr for hydration. Monitor urinary output and daily weight closely for signs of fluid over load. Oral intake is good. Consider discontinuation of fluids this afternoon. Ativan as needed for anxiety and agitation while on BiPAP. Troponins continue to trend up slowing - 0.015, 0.017, 0.029, 0.045 and 0.048 this morning. Will recheck troponin at 1030 and continue to monitor closely on telemetry. Patient denies chest pain. SCDs for DVT prophylaxis. Recheck labs in AM to monitor blood counts, electrolytes and renal function. Discussed at length with patient and family the importance of smoking cessation. He admits to wanting to stop smoking and inquired about initiation of Chantix. Continue Wellbutrin for smoking cessation. With BC positive and starting IV antibiotics, will change admission status to inpatient. Anticipate greater than 2 midnights of care needed. 05/19/17 Continue with Rocephin for antimicrobial coverage. With lungs still very tight and congested, will continue with Solu-Medrol 125mg IV q 6 hours. Continue Neb treatments and acapella. Encourage use of BiPAP as much as able to help his chronic hypercapnea. Stressed with about the importance of him not smoking. She understand. Will consult with Dr Ashby for pulm evaluation. Will discontinue IVF. May restart metformin this evening. Sugars with elevation secondary to steroids. Did give Diamox 500mg x1 this am for fluid motivation and to help minimize contraction alkalosis. PT/OT to evaluate and initiate treatment tomorrow for his significant pulmonary debility.
[2017-05-19] MEDS: CEFTRIAXONE 2 GM in NS 50 ML IV SCH (21:00)
[2017-05-19] MEDS: SIMVASTATIN 20 MG TABLET PO SCH (21:01)
[2017-05-20] MEDS: METHYLPREDNISOLONE SOD SUCC 125mg/2ml INJECTION IVP SCH ×4 (03:30→21:22)
[2017-05-20] MEDS: OMEPRAZOLE 20 MG CAPSULE PO SCH (06:48)
[2017-05-20] MEDS: INSULIN ASPART 100unit/ml INJECTION SQ PRN ×3 (06:55→21:23)
[2017-05-20] MEDS: ALBUTEROL/IPRATROPIUM 2.5mg-0.5mg/3ml NEB AEROSOL SCH ×4 (07:08→19:24)
[2017-05-20] MEDS: BUDESONIDE INH.SOLN 0.5mg/2ml NEB AEROSOL SCH ×2 (07:08→19:24)
[2017-05-20] MEDS: FUROSEMIDE 20 MG TABLET PO SCH (08:37)
[2017-05-20] MEDS: ENOXAPARIN 60 MG/0.6 ML INJECTION SQ SCH (08:37)
[2017-05-20] MEDS: HYDROCODONE/APAP 7.5 MG/325 MG TABLET PO SCH ×2 (08:37→21:23)
[2017-05-20] MEDS: ATENOLOL 25 MG TABLET PO SCH (08:38)
[2017-05-20] MEDS: BuPROPion SR 150mg (12HR) TABLET PO SCH ×2 (08:38→21:24)
[2017-05-20] MEDS: GABAPENTIN 300 MG CAPSULE PO SCH ×3 (08:38→21:23)
[2017-05-20] MEDS: CITALOPRAM 40 MG TABLET PO SCH (08:38)
[2017-05-20] MEDS: GUAIFENESIN LA 600 MG TABLET PO SCH ×2 (08:38→21:24)
[2017-05-20] MEDS: METFORMIN 500 MG TABLET PO SCH ×2 (08:38→18:08)
[2017-05-20] MEDS: ASPIRIN 81 MG CHEWABLE TABLET PO SCH (08:38)
[2017-05-20] MEDS: ITRACONAZOLE 200 MG PO SCH (08:41)
[2017-05-20] MEDS ORDERED: INSULIN ASPART 100unit/ml INJECTION SQ ONE (10:32)
--- NOTE | 2017-05-20 10:50 | Pulmonology Consult Note ---
<Sandra,Erica Alireza - Last Filed: 05/20/17 10:43> History of Present Illness Consult date: 05/20/17 Reason for consult: dyspnea, COPD Chief complaint: SOB History of present illness: This is a 61 yo male with a Hx of Hypercapnic hypoxic respiratory failure, ANGELLA, COPD, PVD, and CAD. Was in the Hospital in April for Respiratory Failure, COPD exacerbation and pneumonia. He presented to the ED on 05/17/17 for sudden SOB , per his till then he had been doing well on 4.5L per NC and home vent to mask. The day before admit he complained of not feeling well, he was seen by his home health nurse. He was noted to be tachycardic HR 140's and had a temp 103 per his . He also complained of increased dyspnea that day requiring him to sit in his scooter all night. The nurse recommended and encouraged that he come to the ED but he refused. Throughout the night he became increasingly more short of breath and finally consented to being evaluated in the ED on . Upon arrival to the ED, his temperature was elevated at 99.7, heart rate 130, respiratory rate 28, blood pressure 160/72 and pulse ox 92% on 5L NC. CXR was negative for acute findings, CTA chest was completed and was negative for PE but did show some basilar atelectasis infiltrates with a left lower lobe mass measuring 2.2cm. We have been consulted for his respiratory issues and mass , we appreciate the consult. Review of Systems - Constitutional Constitutional: Present: fatigue, fever(s) - EENT Eyes: Absent: blurry vision, change in vision Nose: Absent: change in smell, pain Mouth/Throat: Absent: mucosa dry - Cardiovascular Cardiovascular: Present: dyspnea on exertion. Absent: chest pain, palpitations - Respiratory Respiratory: Present: cough, dyspnea, dyspnea on exertion - Gastrointestinal Gastrointestinal: Absent: abdominal pain, change in bowel habits - Musculoskeletal Musculoskeletal: Absent: abnormal gait, arthralgias - Integumentary/Breasts Integumentary: Absent: alopecia, change in hair - Neurological Neurological: Absent: abnormal gait, abnormal movements - Psychiatric Psychiatric: Absent: abnormal sleep pattern, anhedonia - Hematologic/Lymphatic Hematologic/Lymphatic: Absent: easy bleeding, easy bruising - Allergic/Immunologic Allergic/Immunologic: Absent: tongue swelling, throat swelling PFSH Surgical History: No surgical hx other than pilonidal cyst. - Social History Smoking status: Current every day smoker Housing: house Does patient use chewing tobacco?: No Current residence: Apartment/Private Home Medications Home Medications Medication Instructions Recorded Confirmed Type Gabapentin 300 mg PO TID #0 cap 06/19/15 05/17/17 History Omeprazole 40 mg PO DAILY #0 cap 06/19/15 05/17/17 History Albuterol/Ipratropium [Duoneb] 1 unit AEROSOL QID 04/17/17 05/17/17 History Aspirin 81 mg PO DAILY 04/17/17 05/17/17 History Atenolol [Tenormin] 25 mg PO DAILY 04/17/17 05/17/17 History Citalopram [Celexa] 40 mg PO DAILY 04/17/17 05/17/17 History Furosemide [Lasix] 20 mg PO DAILY 04/17/17 05/17/17 History Hydrocodone/APAP 7.5/325 [[place] 1 tab PO BID 04/17/17 05/17/17 History 7.5/325] Itraconazole 200 mg PO BID 04/17/17 05/17/17 History Metformin [Glucophage] 500 mg PO BIDWM 04/17/17 05/17/17 History Nitroglycerin [Nitrostat] 0.4 mg SL Q5MIN3 PRN 04/17/17 05/17/17 History Simvastatin 20 mg PO HS 04/17/17 05/17/17 History buPROPion HCl [Bupropion HCl Sr] 150 mg PO BID 04/17/17 05/17/17 History Allergies Allergy/AdvReac Type Severity Reaction Status Date / Time No Known Allergies Allergy Verified 04/17/17 10:12 Exam Vital signs: Temperature 95.3 F L 05/20/17 07:00 Pulse Rate 90 05/20/17 07:00 Respiratory Rate 18 05/20/17 07:08 Blood Pressure 156/103 H 05/20/17 07:00 Pulse Oximetry 95 05/20/17 07:10 - Constitutional no acute distress, morbidly obese, cooperative - Routine HEENT Exam Head: Present: normocephalic, atraumatic Eye: Present: EOMI, PERRL ENT: Present: mucous membranes moist Nose: moist mucous membranes - Routine Neck Exam Present: supple, full ROM, trachea midline - Routine Respiratory Exam Present: decreased breath sounds, crackles Comments: crackles bases - Routine Cardiovascular Exam Present: RRR, S1, S2, no murmur - Routine Abdominal Exam Present: soft, normoactive bowel sounds - Routine Extremities Exam Present: edema, non tender, full ROM - Routine Back/Spine/Pelvis Exam Back/Spine: Present: full ROM - Routine Skin Exam Present: intact, dry - Routine Neurological Exam Present: alert, oriented X3, CN II-XII intact - Routine Psychiatric Exam Present: normal affect, normal thought process Results - Laboratory Findings CBC and BMP: 05/20/17 04:36 05/20/17 06:01 ABG ABG pH 7.300 (7.350-7.450) L 05/19/17 08:55 ABG pCO2 83 MMHG (34-45) H* 05/19/17 08:55 ABG pO2 77 MMHG (80-100) L 05/19/17 08:55 ABG O2 Saturation 94.0 % (95.0-98.0) L 05/19/17 08:55 Abnormal lab findings: Abnormal Labs 05/19/17 05/19/17 05/19/17 04:33 04:33 08:55 RBC 4.17 L Hgb 12.4 L Hct MCV 101.0 H MCHC 29.5 L MPV Neutrophils % (Manual) 71.0 H Band Neutrophils % 17.0 H D Lymphocytes % (Manual) 5.0 L Monocytes % (Manual) Metamyelocytes % 2.0 H Lymphocytes # (Manual) 0.4 L ABG pH 7.300 L ABG pCO2 83 H* ABG pO2 77 L ABG HCO3 41 H ABG Total CO2 43.3 H ABG O2 Saturation 94.0 L ABG Base Excess 11.1 H Sodium 145 H Carbon Dioxide 36 H BUN 28.0 H D Creatinine 0.7 L BUN/Creatinine Ratio 40 H Glucose 212 H Calculated Osmolality 291 H 05/20/17 05/20/17 04:36 06:01 RBC 3.97 L Hgb 12.0 L Hct 40.0 L MCV 100.8 H MCHC 30.0 L MPV 13.3 H Neutrophils % (Manual) 79.0 H Band Neutrophils % Lymphocytes % (Manual) 6.0 L Monocytes % (Manual) 10.0 H Metamyelocytes % Lymphocytes # (Manual) 0.5 L ABG pH ABG pCO2 ABG pO2 ABG HCO3 ABG Total CO2 ABG O2 Saturation ABG Base Excess Sodium Carbon Dioxide 36 H BUN 40.0 H Creatinine BUN/Creatinine Ratio 36 H Glucose 194 H Calculated Osmolality 292 H - Diagnostic Findings Chest x-ray: image reviewed (as noted in HPI) Assessment and Plan - Assessment and Plan Acute on Chronic Hypoxic Hypercapnic Respiratory Failure LLL mass 2.2 cm COPD exacerbation Bacteremia + BC x 1 with strep ANGELLA/OHS Morbid Obesity DM Plan: Pt currently on his home O2 of 5L per NC and tolerating. Using bipap qHs and prn f12, 20/5, Vt 500's. On pulmicort BID, A/A QID, solumedrol 125q6, will start to wean. Encouraged use of acapella and smoking cessation. + BC x 1 on rocephin, afebrile and no leukocytosis, repeat BC pending. CT chest with basilar infiltrates/atelectasis and LLL mass, likely to require CT guided bx rather then a bronchoscopy, currently on lovenox 50mg daily, would need to hold prior to procedure, last dose today at 0830. Will follow. - Time Spent With Patient Total time spent is greater than 50% in coordination of care (as documented) at patient's floor/unit and/or counseling patient: 25 - 35 minutes <Donny Ashby - Last Filed: 05/20/17 15:53> Exam Vital signs: Temperature 95.3 F L 05/20/17 07:00 Pulse Rate 75 05/20/17 15:00 Respiratory Rate 18 05/20/17 15:31 Blood Pressure 159/82 H 05/20/17 15:00 Pulse Oximetry 97 05/20/17 15:42 Results - Laboratory Findings CBC and BMP: 05/20/17 04:36 05/20/17 06:01 ABG ABG pH 7.300 (7.350-7.450) L 05/19/17 08:55 ABG pCO2 83 MMHG (34-45) H* 05/19/17 08:55 ABG pO2 77 MMHG (80-100) L 05/19/17 08:55 ABG O2 Saturation 94.0 % (95.0-98.0) L 05/19/17 08:55 Abnormal lab findings: Abnormal Labs 05/19/17 05/19/17 05/19/17 04:33 04:33 08:55 RBC 4.17 L Hgb 12.4 L Hct MCV 101.0 H MCHC 29.5 L MPV Neutrophils % (Manual) 71.0 H Band Neutrophils % 17.0 H D Lymphocytes % (Manual) 5.0 L Monocytes % (Manual) Metamyelocytes % 2.0 H Lymphocytes # (Manual) 0.4 L ABG pH 7.300 L ABG pCO2 83 H* ABG pO2 77 L ABG HCO3 41 H ABG Total CO2 43.3 H ABG O2 Saturation 94.0 L ABG Base Excess 11.1 H Sodium 145 H Carbon Dioxide 36 H BUN 28.0 H D Creatinine 0.7 L BUN/Creatinine Ratio 40 H Glucose 212 H Calculated Osmolality 291 H 05/20/17 05/20/17 04:36 06:01 RBC 3.97 L Hgb 12.0 L Hct 40.0 L MCV 100.8 H MCHC 30.0 L MPV 13.3 H Neutrophils % (Manual) 79.0 H Band Neutrophils % Lymphocytes % (Manual) 6.0 L Monocytes % (Manual) 10.0 H Metamyelocytes % Lymphocytes # (Manual) 0.5 L ABG pH ABG pCO2 ABG pO2 ABG HCO3 ABG Total CO2 ABG O2 Saturation ABG Base Excess Sodium Carbon Dioxide 36 H BUN 40.0 H Creatinine BUN/Creatinine Ratio 36 H Glucose 194 H Calculated Osmolality 292 H Assessment and Plan (1) Lung mass Status: Acute Current Visit: Yes (2) Acute exacerbation of chronic obstructive airways disease Status: Acute Current Visit: Yes (3) Acute and chronic respiratory failure with hypercapnia Status: Acute Current Visit: Yes - Time Spent With Patient Total time spent is greater than 50% in coordination of care (as documented) at patient's floor/unit and/or counseling patient: - Attestation Attestation Narrative: I have seen and examined this patient. I have reviewed all pertinent data. I agree with the notes written by the [employer].
--- NOTE | 2017-05-20 12:59 | Progress Note ---
- Date 05/20/17 Subjective: Chaz is seen today in follow up. He is sleeping in the chair and does not arouse during exam. All information is obtained from his at the beside. Overall she feels that his breathing is about the same. He complains of significant dry mouth and throat while using the Bi-pap and requests lozenges. Otherwise she denies him having any other difficulties. He is currently on 5 liters of oxygen and does not appear to be in any distress. Objective Vital signs: Temperature 95.3 F L 05/20/17 07:00 Pulse Rate 90 05/20/17 07:00 Respiratory Rate 18 05/20/17 10:55 Blood Pressure 156/103 H 05/20/17 07:00 Pulse Oximetry 96 05/20/17 10:55 Rhythm: Sinus Tachycardia Height/Weight/BMI: Height 1.85 m Weight 136.8 kg Body Mass Index 39.7 - Constitutional Present: well nourished, well developed - Routine HEENT Exam Eye: Present: EOMI ENT: Present: mucous membranes moist, dentition normal - Routine Respiratory Exam Present: diminished air movement - Routine Cardiovascular Exam Present: RRR, S1, S2. Absent: murmur - Routine Abdominal Exam Present: soft, normoactive bowel sounds, non distended. Absent: tenderness - Routine Extremities Exam Present: pulses intact - Routine Skin Exam Present: intact, dry, warm - Routine Lymphatic Exam Lymphatic: Absent: adenopathy - Routine Psychiatric Exam Present: cooperative Results - Labs CBC & Chem 7: 05/20/17 04:36 05/20/17 06:01 Microbiology Results: Microbiology 05/20/17 04:36 Midline Blood Culture - Preliminary Culture Initiated - Results Pending 05/20/17 04:36 Midline Blood Culture - Preliminary Culture Initiated - Results Pending - ABG Interpretation ABG results: 05/19/17 08:55 ABG pH 7.300 L ABG pCO2 83 H* ABG pO2 77 L ABG HCO3 41 H ABG Total CO2 43.3 H ABG O2 Saturation 94.0 L ABG Base Excess 11.1 H Assessment and Plan (1) Acute exacerbation of chronic obstructive airways disease Current visit: Yes Status: Acute (2) Acute and chronic respiratory failure with hypercapnia Current visit: Yes Status: Acute Assessment and Plan: Assessment Acute on chronic respiratory failure with hypercapnia and hypoxia - baseline home oxygen at 5L. COPD exacerbation. Bacteremia secondary to streptococcus viridans (1 of 2 BC from admission positive) Pulmonary nodule - Irregular 2.2cm left lower lobe pulmonary nodule Anemia, unspecified, stable Coronary Artery Disease Hypertension Sleep Apnea Diabetes Mellitus Type 2 - A1c on 04/17/17 was 6.4% GERD Osteoarthritis Peripheral neuropathy Fibromyalgia Depression Tobacco dependency Peripheral vascular disease Morbid obesity - BMI >40 Plan Continue with Rocephin for antimicrobial coverage. One blood culture was positive with streptococcus Viridans, Repeat BC were drawn this morning. Scheduled breathing tx, IV solu-medrol, as well as oxygen and Bipap Appreciate Dr Ashby consultation. Likely require bronchoscopy for biopsy of lung mass. Continue to monitor BGM remain elevated. Metformin was resumed as well as sliding scale insulin. Encourage PT/OT for strengthening DVT Prophylaxis: SCD's, Lovenox Resuscitation Status: Full Code - Time spent with patient Time with patient PN: 25 minutes - Physician Narrative Physician: Michael Lopez MD Narrative: Date: 05/20/17 Time: 1854 Have independently interviewed and examined pt. Chart reviewed. Case discussed with my AEROBICS INSTRUCTOR and Dr Ashby. Care plan developed with my supervision; agree with above. Was sleeping with BIPAP on earlier when I came by. Sleeping with O2 at my return visit, but about ready to put BIPAP back on. Can tolerate for about 3 hours, and then mouth and throat gets very dry and uncomfortable. Breathing feeling about the same. Eating well. No nausea or ab pain. Lungs: decrease, improving air movement. Not having conversational dyspnea. CV : regular MSE: awake alert Plan: Continue Rocephin-recheck on repeat BC. Pulm tapered Solu-Medrol. Encourage activities-PT/OT to help. Encourage Bipap use. Hospital Course Summary Disclaimer: The visit summary below is not to be considered part of the above Progress Note. Hospital Course: 05/17/17 Admission Admit to observation status under the care of Dr. Lopez. Sepsis work up initiated in ED. Patient meeting SIRS criteria based on tachycardia, tachypnea and reported fevers at home without obvious source. Initial lactate was 1.4 with repeat lactate decreased to 0.9. Blood cultures pending. WBC stable at 5.0. CXR revealed left basilar scarring without focal pneumonia. Respiratory panel was negative. Patient was given DuoNeb treatments and Solu-Medrol 125mg IV in ED. Will continue respiratory care with DuoNeb treatments QID and Q6H PRN as well as Solu -Medrol 125mg IV Q6H. History of diabetes with A1c on 04/17/17 at 6.4%. Continue home medications and monitor blood sugars closely given treatment with steroids. Sliding scale insulin as indicated for hyperglycemia. Patient was placed on BiPAP in ED with improvement. Continue BiPAP as indicated. Ativan as needed for anxiety and agitation while on BiPAP. Will monitor closely on telemetry with continuous pulse oximetry. Oxygen as needed to maintain SAO2 between 90-95%, weaning as able to baseline of 5L. SCDs for DVT prophylaxis. Given sudden onset of dyspnea, will obtain CT angio chest for further evaluation of PE - results pending. NS at 100cc/hr for hydration given decreased oral intake as on BiPAP. Monitor daily weight closely for signs of fluid overload. Recheck labs in AM to monitor blood counts, electrolytes and renal function. Patient wishes to maintain FULL CODE status. Upon discharge, patient's care will be returned to his PCP, Dr. Odom. 05/18/17 Don reports that his breathing is a little better today and is he is more alert. New cough with sputum production. 1 of the 2 blood cultures obtained on admission is POSITIVE for Streptococcus. Night telehospitalist was notified and Rocephin 2g IV Q24 hours was initiated for antimicrobial coverage. Given new cough, will try and obtain a sputum culture. Mucinex for mucolytic effect. Ricola for cough. Continue respiratory care including nebulized treatments. Continue to encourage BiPAP as indicated and supplemental oxygen to maintain SAO2 between 90 -95%. Wean oxygen to baseline of 5L as able. Given sudden onset of dyspnea, CT angio chest was obtained and revealed no PE but did note 2.2cm left lower lobe pulmonary nodule raising concern for primary lung malignancy and recommended further evaluation. Will discuss consideration of pulmonary consult for further evaluation. Continue Solu-Medrol 125mg IV Q6 hours. Anticipate initiation of tapering in near future. Blood sugars remain elevated, most likely steroid effect, ranging from 160's-> 200. Continue sliding scale insulin. Given recent CT with contrast, will hold metformin and restart 05/19/17. Continue NS at 75cc/hr for hydration. Monitor urinary output and daily weight closely for signs of fluid over load. Oral intake is good. Consider discontinuation of fluids this afternoon. Ativan as needed for anxiety and agitation while on BiPAP. Troponins continue to trend up slowing - 0.015, 0.017, 0.029, 0.045 and 0.048 this morning. Will recheck troponin at 1030 and continue to monitor closely on telemetry. Patient denies chest pain. SCDs for DVT prophylaxis. Recheck labs in AM to monitor blood counts, electrolytes and renal function. Discussed at length with patient and family the importance of smoking cessation. He admits to wanting to stop smoking and inquired about initiation of Chantix. Continue Wellbutrin for smoking cessation. With BC positive and starting IV antibiotics, will change admission status to inpatient. Anticipate greater than 2 midnights of care needed. 05/19/17 Continue with Rocephin for antimicrobial coverage. With lungs still very tight and congested, will continue with Solu-Medrol 125mg IV q 6 hours. Continue Neb treatments and acapella. Encourage use of BiPAP as much as able to help his chronic hypercapnea. Stressed with about the importance of him not smoking. She understand. Will consult with Dr Ashby for pulm evaluation. Will discontinue IVF. May restart metformin this evening. Sugars with elevation secondary to steroids. Did give Diamox 500mg x1 this am for fluid motivation and to help minimize contraction alkalosis. PT/OT to evaluate and initiate treatment tomorrow for his significant pulmonary debility. 05/20 Continue with Rocephin for antimicrobial coverage. One blood culture was positive with streptococcus Viridans, Repeat BC were drawn this morning. Scheduled breathing tx, IV solu-medrol, as well as oxygen and Bipap Appreciate Dr Ashby consultation. Likely require bronchoscopy for biopsy of lung mass. Continue to monitor BGM remain elevated. Metformin was resumed as well as sliding scale insulin. Encourage PT/OT for strengthening
[2017-05-20] MEDS ORDERED: BENZOCAINE/MENTHOL SORE THROAT LOZENGE MM PRN (18:54)
[2017-05-20] MEDS: SIMVASTATIN 20 MG TABLET PO SCH (21:23)
[2017-05-20] MEDS: CEFTRIAXONE 2 GM in NS 50 ML IV SCH (21:25)
[2017-05-21] MEDS: ITRACONAZOLE 200 MG PO SCH ×2 (00:51→10:56)
[2017-05-21] MEDS: METHYLPREDNISOLONE SOD SUCC 125mg/2ml INJECTION IVP SCH ×4 (03:00→20:20)
[2017-05-21] MEDS: OMEPRAZOLE 20 MG CAPSULE PO SCH (06:27)
[2017-05-21] MEDS: BUDESONIDE INH.SOLN 0.5mg/2ml NEB AEROSOL SCH ×2 (07:01→18:54)
[2017-05-21] MEDS: ALBUTEROL/IPRATROPIUM 2.5mg-0.5mg/3ml NEB AEROSOL SCH ×6 (07:01→23:15)
[2017-05-21] MEDS: INSULIN ASPART 100unit/ml INJECTION SQ PRN ×4 (07:30→20:13)
[2017-05-21] MEDS: NITROGLYCERIN 0.4 MG SUBLINGUAL TABLET SL PRN ×2 (07:57→08:35)
--- NOTE | 2017-05-21 08:45 | Progress Note ---
- Date 05/21/17 Subjective: I was called to urgently assess Howard. He stood up to get a weight, and after he sat back down in the chair, he began complaining of severe chest pain -- the worst chest pain he's ever had per his . He had been off Bipap x 3 hours, and was just on [place] oxygen. He was given 1 NTG prior to my arrival. He was obtunded and could not answer questions. His color was johnson and he was gasping for breath. He was extremely diaphoretic. After going back on Bipap his color began to improve, and he was able to deny chest pain, but mostly remained obtunded. Rapid response was activated and he was transferred to the CCU. Objective Vital signs: Temperature 96.7 F L 05/21/17 07:00 Pulse Rate 84 05/21/17 07:00 Respiratory Rate 18 05/21/17 07:00 Blood Pressure 151/89 H 05/21/17 07:00 Pulse Oximetry 96 05/21/17 07:03 Height/Weight/BMI: Height 1.85 m Weight 134.8 kg Body Mass Index 39.7 - Constitutional Present: severe distress, obese, diaphoretic, obtunded - Routine HEENT Exam Head: Present: normocephalic Eye: Absent: conjunctival icterus, scleral injection - Routine Respiratory Exam Present: decreased breath sounds, diminished air movement - Routine Cardiovascular Exam Present: tachycardia, irregular rhythm - Routine Abdominal Exam Comments: ecchymosis to lower abdomen - Routine Extremities Exam Present: edema (b/l lower ext), pulses intact (radial pulses readily palpable) - Routine Skin Exam Absent: dry - Routine Neurological Exam Absent: alert, oriented X3 - Routine Psychiatric Exam Present: unable to assess Results - Labs CBC & Chem 7: 05/21/17 03:27 05/21/17 03:27 Microbiology Results: Microbiology 05/20/17 04:36 Midline Blood Culture - Preliminary No Growth After 1 Day 05/20/17 04:36 Midline Blood Culture - Preliminary No Growth After 1 Day - ABG Interpretation ABG results: 05/19/17 05/21/17 08:55 08:15 ABG pH 7.300 L 7.119 L* ABG pCO2 83 H* 106 H* ABG pO2 77 L 39 L* ABG HCO3 41 H 34.2 H ABG Total CO2 43.3 H 37.0 H ABG O2 Saturation 94.0 L 52.0 L ABG Base Excess 11.1 H 1.0 Assessment and Plan (1) Acute exacerbation of chronic obstructive airways disease Current visit: Yes Status: Acute (2) Acute and chronic respiratory failure with hypercapnia Current visit: Yes Status: Acute Assessment and Plan: Assessment Acute on chronic respiratory failure with hypercapnia and hypoxia - baseline home oxygen at 5L. Chest pain with EKG changes Wide complex tachycardia; s/p cardioversion with return to sinus tach-[facility] 05/1317 COPD exacerbation. Bacteremia secondary to streptococcus viridans (1 of 2 BC from admission positive) Pulmonary nodule - Irregular 2.2cm left lower lobe pulmonary nodule Anemia, unspecified, stable Coronary Artery Disease Hypertension Sleep Apnea Diabetes Mellitus Type 2 - A1c on 04/17/17 was 6.4% GERD Osteoarthritis Peripheral neuropathy Fibromyalgia Depression Tobacco dependency Peripheral vascular disease Morbid obesity - BMI >40 Plan Resp failure --> ABG shows resp acidosis and he was placed on BiPAP with improvement in color. Repeat ABG shows pH 7.12, pCO2 106, pO2 185. CXR ordered. BG 230. Chest pain --> EKG shows ST changes and widened QRS, poss a-flutter; troponin pending. Dr. Govea consulted. He's had 2 NTG but remains very hypertensive with SBP 220s. Pt failed to respond to adenosine, and subseqently was cardioverted with conversion to sinus tach. Rapid response activated and Dr. Ramírez was at bedside x20 min. Transferred to CCU, where pt was met by Dr. Govea for evaluation. Continue treatment for resp status including steroids and Rocephin. Discussed with Dr. Luque and with Dr. Ashby. Pt is critically ill. approves intubation if necessary; he is a full code. Time spent at bedside, discussing with physicians and care team = 64 minutes. DVT Prophylaxis: Lovenox Resuscitation Status: Full Code - Physician Narrative Physician: Sarahi Luque MD Narrative: Date: 05/21/17 Time: 1450 I have independently evaluated and examined this patient. I reviewed the chart, the patient's history, and the MACHINE [employer]CH[employer]IC/PA's documented findings as above. We discussed and formulated the assessment and plan as above with additions as below: Mr. Moreno became acutely unstable this morning with onset of chest pain followed by wide complex tachycardia with respiratory distress, johnson discoloration, clammy skin, and hypertensive response. He was transferred to the intensive care unit where he was treated with adenosine without change in cardiac rhythm followed by cardioversion with 360 J without effect followed by administration of IV metoprolol twice with slowing of the heart rate. Initial troponins were unremarkable however the troponin at 2 PM has increased 1.5. EKG changes were present with lateral ST depression and possible slight inferior ST elevation while tachycardic. The patient was profoundly hypercarbic and acidotic which did not respond to BiPAP resulting in intubation and sedation late this morning. He was initially hypertensive but has subsequently dropped his pressures requiring fluid bolus and change from propofol to fentanyl infusion to try to stabilize blood pressures. Respiratory therapy reports sputum plugging when they initially suctioned his airway with subsequent thin secretions; chest x-ray and CT reveal significant right > left lower lobe infiltrates-increased from prior films. On examination the patient was drowsy, prior to intubation he occasionally reached for the BiPAP mask attempt to dislodge it. Pupils are round and react to light, gaze is conjugate Cardiac rhythm is regular and heart tones could not be heard due to excessive wheezing Diffuse wheezing throughout the lung valiente both anteriorly and posteriorly Abdomen soft, obese, and nontender Stasis changes mid-distal lower extremities, dorsalis pedis pulses but nonpalpable Patient withdraws lower extremities to stimulation and moves upper extremities spontaneously Acute hypoxic/hypercarbic respiratory failure Pneumonia Chest pain Wide complex tachycardia Hemodynamic instability-hypertensive and hypotensive this morning Bilateral lower lobe pneumonia Diabetes mellitus, uncontrolled Clinical status has been discussed with Dr. Govea and Dr. Ashby; discussed with Dr. Ramírez and nurse practitioners for all groups involved. Patient was intubated shortly after I saw him initially this morning due to persistent hypercarbia and acidosis. I sense reviewed the CTA demonstrating increased infiltrates/no PE. Sputum culture has been sent-Gram stain has not yet been reported but will empirically expand antibiotics pending further data. Given progression of pneumonia while hospitalized will convert to combined coverage with vancomycin/cefepime/ Levaquin and discontinue ceftriaxone. Possible aspiration-speech therapy will need to reevaluate following extubation. Repeat blood cultures remain negative for strep viridans-1/4 positive. PICC line placed Add basal insulin; corrective scale adjusted for persistent hyperglycemia. Metformin on hold. Critically ill--[id number], [id number], [id number]; additional 20 minutes critical care time spent at bedside by my partner Dr. Ramírez during the rapid response prior to transfer to the ICU. Hospital Course Summary Disclaimer: The visit summary below is not to be considered part of the above Progress Note. Hospital Course: 05/17/17 Admission Admit to observation status under the care of Dr. Lopez. Sepsis work up initiated in ED. Patient meeting SIRS criteria based on tachycardia, tachypnea and reported fevers at home without obvious source. Initial lactate was 1.4 with repeat lactate decreased to 0.9. Blood cultures pending. WBC stable at 5.0. CXR revealed left basilar scarring without focal pneumonia. Respiratory panel was negative. Patient was given DuoNeb treatments and Solu-Medrol 125mg IV in ED. Will continue respiratory care with DuoNeb treatments QID and Q6H PRN as well as Solu -Medrol 125mg IV Q6H. History of diabetes with A1c on 04/17/17 at 6.4%. Continue home medications and monitor blood sugars closely given treatment with steroids. Sliding scale insulin as indicated for hyperglycemia. Patient was placed on BiPAP in ED with improvement. Continue BiPAP as indicated. Ativan as needed for anxiety and agitation while on BiPAP. Will monitor closely on telemetry with continuous pulse oximetry. Oxygen as needed to maintain SAO2 between 90-95%, weaning as able to baseline of 5L. SCDs for DVT prophylaxis. Given sudden onset of dyspnea, will obtain CT angio chest for further evaluation of PE - results pending. NS at 100cc/hr for hydration given decreased oral intake as on BiPAP. Monitor daily weight closely for signs of fluid overload. Recheck labs in AM to monitor blood counts, electrolytes and renal function. Patient wishes to maintain FULL CODE status. Upon discharge, patient's care will be returned to his PCP, Dr. Odom. 05/18/17 Don reports that his breathing is a little better today and is he is more alert. New cough with sputum production. 1 of the 2 blood cultures obtained on admission is POSITIVE for Streptococcus. Night telehospitalist was notified and Rocephin 2g IV Q24 hours was initiated for antimicrobial coverage. Given new cough, will try and obtain a sputum culture. Mucinex for mucolytic effect. Ricola for cough. Continue respiratory care including nebulized treatments. Continue to encourage BiPAP as indicated and supplemental oxygen to maintain SAO2 between 90 -95%. Wean oxygen to baseline of 5L as able. Given sudden onset of dyspnea, CT angio chest was obtained and revealed no PE but did note 2.2cm left lower lobe pulmonary nodule raising concern for primary lung malignancy and recommended further evaluation. Will discuss consideration of pulmonary consult for further evaluation. Continue Solu-Medrol 125mg IV Q6 hours. Anticipate initiation of tapering in near future. Blood sugars remain elevated, most likely steroid effect, ranging from 160's-> 200. Continue sliding scale insulin. Given recent CT with contrast, will hold metformin and restart 05/19/17. Continue NS at 75cc/hr for hydration. Monitor urinary output and daily weight closely for signs of fluid over load. Oral intake is good. Consider discontinuation of fluids this afternoon. Ativan as needed for anxiety and agitation while on BiPAP. Troponins continue to trend up slowing - 0.015, 0.017, 0.029, 0.045 and 0.048 this morning. Will recheck troponin at 1030 and continue to monitor closely on telemetry. Patient denies chest pain. SCDs for DVT prophylaxis. Recheck labs in AM to monitor blood counts, electrolytes and renal function. Discussed at length with patient and family the importance of smoking cessation. He admits to wanting to stop smoking and inquired about initiation of Chantix. Continue Wellbutrin for smoking cessation. With BC positive and starting IV antibiotics, will change admission status to inpatient. Anticipate greater than 2 midnights of care needed. 05/19/17 Continue with Rocephin for antimicrobial coverage. With lungs still very tight and congested, will continue with Solu-Medrol 125mg IV q 6 hours. Continue Neb treatments and acapella. Encourage use of BiPAP as much as able to help his chronic hypercapnea. Stressed with about the importance of him not smoking. She understand. Will consult with Dr Ashby for pulm evaluation. Will discontinue IVF. May restart metformin this evening. Sugars with elevation secondary to steroids. Did give Diamox 500mg x1 this am for fluid motivation and to help minimize contraction alkalosis. PT/OT to evaluate and initiate treatment tomorrow for his significant pulmonary debility. 05/20 Continue with Rocephin for antimicrobial coverage. One blood culture was positive with streptococcus Viridans, Repeat BC were drawn this morning. Scheduled breathing tx, IV solu-medrol, as well as oxygen and Bipap Appreciate Dr Ashby consultation. Likely require bronchoscopy for biopsy of lung mass. Continue to monitor BGM remain elevated. Metformin was resumed as well as sliding scale insulin. Encourage PT/OT for strengthening 05/21 Resp failure --> ABG shows resp acidosis and he was placed on BiPAP with improvement in color. Repeat ABG shows pH 7.12, pCO2 106, pO2 185. CXR ordered. BG 230. Chest pain --> EKG shows ST changes and widened QRS, poss a-flutter; troponin pending. Dr. Govea consulted. He's had 2 NTG but remains very hypertensive with SBP 220s. Pt failed to respond to adenosine, and subseqently was cardioverted with conversion to sinus tach. 6 hr troponin 1.5 (after cardioversion). Heparin drip initiated. Rapid response activated and Dr. Ramírez was at bedside x20 min. Transferred to CCU, where pt was met by Dr. Govea for evaluation. Continue treatment for resp status including steroids and Rocephin. CTA of the lungs with extensive bilateral lower lobe pneumonia R.L--> antibiotics expanded to cefepime, Levaquin, vancomycin for healthcare associated pathogens; ceftriaxone discontinued.
[2017-05-21] MEDS: SALINE FLUSH 10ml SYRINGE IVF PRN ×3 (08:48→09:27)
[2017-05-21] MEDS ORDERED: HEPARIN - PHARMACY CONSULT MC ONE (09:08)
[2017-05-21] MEDS ORDERED: ADENOSINE 6mg/2ml INJECTION IVP ONE ×2 (09:17→09:18)
[2017-05-21] MEDS ORDERED: METOPROLOL 5mg/5ml INJECTION IVP ONE (09:18)
[2017-05-21] MEDS ORDERED: HEPARIN 1,000unit/ml INJECTION 10ml IVP ONE ×2 (09:23→17:45)
[2017-05-21] MEDS ORDERED: FUROSEMIDE 20 MG/2 ML INJECTION IVP ONE (09:37)
[2017-05-21] MEDS ORDERED: IOHEXOL 350mg/ml 100ml INJECTION ONE (09:37)
[2017-05-21] MEDS ORDERED: SALINE FLUSH 10ml SYRINGE ONE ×2 (09:38→14:14)
--- NOTE | 2017-05-21 09:45 | Cardiology Consult Note ---
<Andreina Grijalva - Last Filed: 05/22/17 09:54> History of Present Illness Consult date: 05/21/17 Requesting physician: Sarahi Luque Consult reason: chest pain Chief complaint: chest pain History of present illness: Howard is a 61 year old male with a known history of CAD, HTN, DM, Obesity, ANGELLA , and tobacco use who reportedly got up to be weighed this morning and immediately reported severe chest pain, reportedly was johnson and diaphoretic as well as tachypneic and with decreased LOC. Rapid response was activated and he was transferred to the CCU. We were consulted for further evaluation of chest pain. He was found to be tachycardic, rate 140s. Unable to tell if Sinus or not. Given Adenosine 6mg IVP, followed by 12mg X2 without slowing HR. Sedation was given and attempted DCCV which was unsuccessful. Following 2nd dose of Metoprolol 5mg IV heart rate slowed enough to confirm it is Sinus tachycardia. Repeat EKG obtained, started on Heparin drip Review of Systems ROS unobtainable: due to mental status (obtunded) [facility] Alzheimer's Disease Angina Coronary Artery Disease Hypertension Myocardial Infarction COPD Sleep Apnea Diabetes Mellitus Type 2 GERD Osteoarthritis Peripheral neuropathy. Fibromyalgia Depression Chronic hypoxia with home oxygen dependence at 5L. Tobacco dependency. Peripheral vascular disease. Morbid obesity - BMI >40. Surgical History: pilonidal cyst. Family History: Unable to obtain as patient is obtunded on BiPAP. - Social History Smoking status: Current every day smoker Does patient use chewing tobacco?: No Current residence: Apartment/Private Home Medications Home Medications Medication Instructions Recorded Confirmed Type Gabapentin 300 mg PO TID #0 cap 06/19/15 05/17/17 History Omeprazole 40 mg PO DAILY #0 cap 06/19/15 05/17/17 History Albuterol/Ipratropium [Duoneb] 1 unit AEROSOL QID 04/17/17 05/17/17 History Aspirin 81 mg PO DAILY 04/17/17 05/17/17 History Atenolol [Tenormin] 25 mg PO DAILY 04/17/17 05/17/17 History Citalopram [Celexa] 40 mg PO DAILY 04/17/17 05/17/17 History Furosemide [Lasix] 20 mg PO DAILY 04/17/17 05/17/17 History Hydrocodone/APAP 7.5/325 [[place] 1 tab PO BID 04/17/17 05/17/17 History 7.5/325] Itraconazole 200 mg PO BID 04/17/17 05/17/17 History Metformin [Glucophage] 500 mg PO BIDWM 04/17/17 05/17/17 History Nitroglycerin [Nitrostat] 0.4 mg SL Q5MIN3 PRN 04/17/17 05/17/17 History Simvastatin 20 mg PO HS 04/17/17 05/17/17 History buPROPion HCl [Bupropion HCl Sr] 150 mg PO BID 04/17/17 05/17/17 History Allergies Allergy/AdvReac Type Severity Reaction Status Date / Time No Known Allergies Allergy Verified 04/17/17 10:12 Exam Vital signs: Temperature 96.7 F L 05/21/17 07:00 Pulse Rate 140 H 05/21/17 09:23 Respiratory Rate 26 H 05/21/17 08:30 Blood Pressure 151/89 H 05/21/17 07:00 Pulse Oximetry 96 05/21/17 08:30 - Constitutional severe distress, morbidly obese, diaphoretic, obtunded - Routine HEENT Exam Head: Present: normocephalic ENT: Present: mucous membranes moist - Routine Neck Exam Absent: JVD, carotid bruit - Routine Respiratory Exam Present: decreased breath sounds, diminished air movement - Routine Cardiovascular Exam Present: tachycardia, irregularly irregular - Routine Abdominal Exam Present: distended - Routine Extremities Exam Present: edema - Routine Skin Exam Present: intact - Routine Psychiatric Exam Present: unable to assess Results 05/22/17 02:23 05/22/17 02:23 Cardiac Enzymes 05/21/17 05/21/17 Range/Units 03:27 08:35 Troponin I < 0.012 D 0.015 (0-0.12) ng/ml CBC 05/21/17 Range/Units 03:27 WBC 7.9 (4.5-11.0) T/MM3 RBC 4.15 L (4.50-5.90) M/MM3 Hgb 12.3 L (13.5-17.5) GM/DL Hct 41.5 (41-53) % Plt Count 217 (130-400) T/MM3 Neut # (Auto) Not performed Lymph # (Auto) Not performed [place] # (Auto) Not performed Eos # (Auto) Not performed Baso # (Auto) Not performed Comprehensive Metabolic Panel 05/21/17 Range/Units 03:27 Sodium 143 (134-144) MEQ/L Potassium 3.7 (3.6-5) MEQ/L Chloride 100 (98-107) MEQ/L Carbon Dioxide 35 H (22-30) MEQ/L BUN 40.0 H (9-20) MG/DL Creatinine 0.9 D (0.8-1.5) MG/DL Glucose 224 H (75-110) MG/DL Calcium 9.1 (8.4-10.2) MG/DL Intake and Output 05/20/17 05/21/17 05/21/17 22:59 06:59 14:59 Intake Total 50 / 50 400 / 400 420 / 420 Output Total 600 / 600 1200 / 1200 Balance -550 / -550 -800 / -800 420 / 420 Intake: IV 50 / 50 Ceftriaxone 2 gm In Ns 50 ml @ 50 / 50 100 mls/hr IV Q24H KSENIA Rx#: [id number] Oral 400 / 400 420 / 420 Output: Urine 600 / 600 1200 / 1200 Other: Urine Appearance Clear Clear Urine Color Yellow Straw Urine Odor Strong Weight 291 lb 10.745 oz Patient Weight 05/22/17 06:59 Weight 291 lb 10.745 oz - Imaging and Cardiology EKG results: image reviewed Imaging & Cardiology Narrative: Date of Exam: 05/21/17 Type of Exam(s): US echo doppler complete DATE OF PROCEDURE May 21, [address] Sarahi Luque This is a two-dimensional echo with spectral Doppler, color-flow and M-mode. It was obtained in a patient with shortness of breath and respiratory failure. This was a technically very difficult study. Left atrial dimension is at the upper limits of normal. Left ventricular end- diastolic dimension is normal. Left ventricle wall thickness is increased. LV systolic function is reduced with global hypokinesia with ejection fraction of about 30%. Right atrium is normal. Right ventricle is normal. Aortic root dimension is normal. Mitral valve is morphologically normal with trace of mitral regurgitation. Aortic valve was not visualized well. However, Doppler studies indicate no stenosis. Mild aortic insufficiency is present. Tricuspid valve shows trace of tricuspid regurgitation with normal estimated pulmonary artery systolic pressure of 28. Pulmonary valve was not visualized well but Doppler studies indicate no stenosis or insufficiency. There is no pericardial effusion. IMPRESSION 1. Technically difficult study. 2. Global hypokinesia with ejection fraction of about 30%. 3. Trace of mitral regurgitation. 4. Mild aortic insufficiency. 5. Mild tricuspid regurgitation with normal estimated pulmonary artery systolic pressure of 28. 6. Mild left ventricular hypertrophy. 05/22/17 09:58 EKG interpretations - Dysrhythmias Sinus rhythms and dysrhythmias: sinus tachycardia Supraventricular dysrhythmia: atrial flutter - Blocks, axis, hypertrophy, ST abn QRS axis and voltage: left axis deviation (-30 to -90) Assessment and Plan - Assessment and Plan (1) Chest pain Current visit: Yes Status: Acute Reportedly had severe chest pain, was johnson and diaphoretic as well as tachypneic followed by decreased LOC. - HR 140s, sinus tach vs. A flutter - Given Adenosine 6mg IVP, followed by 12mg X2 without slowing HR. - Sedation given and attempted DCCV which was unsuccessful. - Following 2nd dose of Metoprolol 5mg IV heart rate slowed enough to confirm it is Sinus tachycardia. - Repeat EKG obtained, started on Heparin drip. - Trend Troponin - 2D echo - CTA for emboli/ dissection (2) Community acquired pneumonia Current visit: No Status: Acute per attending (3) Acute and chronic respiratory failure with hypercapnia Current visit: Yes Status: Acute Bi-PAP initially - later intubated (4) Atherosclerotic heart disease of [place] coronary artery without angina pectoris Current visit: Yes Status: Chronic will likely need Heart cath when more stabilized. (5) Essential (primary) hypertension Current visit: Yes Status: Chronic Improved with IV Metoprolol - Continue to monitor (6) Type 2 diabetes mellitus without complications Current visit: Yes Status: Chronic per attending (7) Obesity (BMI 30-39.9) Current visit: Yes Status: Chronic (8) ANGELLA (obstructive sleep apnea) Current visit: Yes Status: Chronic currently ventilated - Assessment and Plan Reportedly had severe chest pain, was johnson and diaphoretic as well as tachypneic followed by decreased LOC. - HR 140s, sinus tach vs. A flutter - Given Adenosine 6mg IVP, followed by 12mg X2 without slowing HR. - Sedation given and attempted DCCV which was unsuccessful. - Following 2nd dose of Metoprolol 5mg IV heart rate slowed enough to confirm it is Sinus tachycardia. - Repeat EKG obtained, started on Heparin drip. - Trend Troponin - 2D echo - CTA for emboli/ dissection Thank you for allowing us to participate in the care of this patient, we will follow along with you. Hospital Course Summary Disclaimer: The visit summary below is not to be considered part of the above Progress Note. Hospital Course: 05/17/17 Admission Admit to observation status under the care of Dr. Lopez. Sepsis work up initiated in ED. Patient meeting SIRS criteria based on tachycardia, tachypnea and reported fevers at home without obvious source. Initial lactate was 1.4 with repeat lactate decreased to 0.9. Blood cultures pending. WBC stable at 5.0. CXR revealed left basilar scarring without focal pneumonia. Respiratory panel was negative. Patient was given DuoNeb treatments and Solu-Medrol 125mg IV in ED. Will continue respiratory care with DuoNeb treatments QID and Q6H PRN as well as Solu -Medrol 125mg IV Q6H. History of diabetes with A1c on 04/17/17 at 6.4%. Continue home medications and monitor blood sugars closely given treatment with steroids. Sliding scale insulin as indicated for hyperglycemia. Patient was placed on BiPAP in ED with improvement. Continue BiPAP as indicated. Ativan as needed for anxiety and agitation while on BiPAP. Will monitor closely on telemetry with continuous pulse oximetry. Oxygen as needed to maintain SAO2 between 90-95%, weaning as able to baseline of 5L. SCDs for DVT prophylaxis. Given sudden onset of dyspnea, will obtain CT angio chest for further evaluation of PE - results pending. NS at 100cc/hr for hydration given decreased oral intake as on BiPAP. Monitor daily weight closely for signs of fluid overload. Recheck labs in AM to monitor blood counts, electrolytes and renal function. Patient wishes to maintain FULL CODE status. Upon discharge, patient's care will be returned to his PCP, Dr. Odom. 05/18/17 Don reports that his breathing is a little better today and is he is more alert. New cough with sputum production. 1 of the 2 blood cultures obtained on admission is POSITIVE for Streptococcus. Night telehospitalist was notified and Rocephin 2g IV Q24 hours was initiated for antimicrobial coverage. Given new cough, will try and obtain a sputum culture. Mucinex for mucolytic effect. Ricola for cough. Continue respiratory care including nebulized treatments. Continue to encourage BiPAP as indicated and supplemental oxygen to maintain SAO2 between 90 -95%. Wean oxygen to baseline of 5L as able. Given sudden onset of dyspnea, CT angio chest was obtained and revealed no PE but did note 2.2cm left lower lobe pulmonary nodule raising concern for primary lung malignancy and recommended further evaluation. Will discuss consideration of pulmonary consult for further evaluation. Continue Solu-Medrol 125mg IV Q6 hours. Anticipate initiation of tapering in near future. Blood sugars remain elevated, most likely steroid effect, ranging from 160's-> 200. Continue sliding scale insulin. Given recent CT with contrast, will hold metformin and restart 05/19/17. Continue NS at 75cc/hr for hydration. Monitor urinary output and daily weight closely for signs of fluid over load. Oral intake is good. Consider discontinuation of fluids this afternoon. Ativan as needed for anxiety and agitation while on BiPAP. Troponins continue to trend up slowing - 0.015, 0.017, 0.029, 0.045 and 0.048 this morning. Will recheck troponin at 1030 and continue to monitor closely on telemetry. Patient denies chest pain. SCDs for DVT prophylaxis. Recheck labs in AM to monitor blood counts, electrolytes and renal function. Discussed at length with patient and family the importance of smoking cessation. He admits to wanting to stop smoking and inquired about initiation of Chantix. Continue Wellbutrin for smoking cessation. With BC positive and starting IV antibiotics, will change admission status to inpatient. Anticipate greater than 2 midnights of care needed. 05/19/17 Continue with Rocephin for antimicrobial coverage. With lungs still very tight and congested, will continue with Solu-Medrol 125mg IV q 6 hours. Continue Neb treatments and acapella. Encourage use of BiPAP as much as able to help his chronic hypercapnea. Stressed with about the importance of him not smoking. She understand. Will consult with Dr Ashby for pulm evaluation. Will discontinue IVF. May restart metformin this evening. Sugars with elevation secondary to steroids. Did give Diamox 500mg x1 this am for fluid motivation and to help minimize contraction alkalosis. PT/OT to evaluate and initiate treatment tomorrow for his significant pulmonary debility. 05/20 Continue with Rocephin for antimicrobial coverage. One blood culture was positive with streptococcus Viridans, Repeat BC were drawn this morning. Scheduled breathing tx, IV solu-medrol, as well as oxygen and Bipap Appreciate Dr Ashby consultation. Likely require bronchoscopy for biopsy of lung mass. Continue to monitor BGM remain elevated. Metformin was resumed as well as sliding scale insulin. Encourage PT/OT for strengthening 05/21 Resp failure --> ABG shows resp acidosis and he was placed on BiPAP with improvement in color. Repeat ABG shows pH 7.12, pCO2 106, pO2 185. CXR ordered. BG 230. Chest pain --> EKG shows ST changes and widened QRS, poss a-flutter; troponin pending. Dr. Govea consulted. He's had 2 NTG but remains very hypertensive with SBP 220s. Pt failed to respond to adenosine, and subseqently was cardioverted with conversion to sinus tach. Rapid response activated and Dr. Ramírez was at bedside x20 min. Transferred to CCU, where pt was met by Dr. Govea for evaluation. Continue treatment for resp status including steroids and Rocephin. <Francis Govea - Last Filed: 05/27/17 10:08> [facility] Patient Stated Medical History Sleep Apnea Yes Hx Renal Disease No Exam Vital signs: Temperature 101.4 F H 05/27/17 08:00 Pulse Rate 75 05/27/17 09:30 Respiratory Rate 16 05/27/17 09:30 Blood Pressure 141/67 H 05/27/17 09:00 Pulse Oximetry 97 05/27/17 09:30 Results 05/27/17 03:54 05/27/17 03:55 CBC 05/27/17 Range/Units 03:54 WBC 11.4 H (4.5-11.0) T/MM3 RBC 4.16 L (4.50-5.90) M/MM3 Hgb 12.4 L (13.5-17.5) GM/DL Hct 41.4 (41-53) % Plt Count 90 L (130-400) T/MM3 Neut # (Auto) Not performed Lymph # (Auto) Not performed [place] # (Auto) Not performed Eos # (Auto) Not performed Baso # (Auto) Not performed Comprehensive Metabolic Panel 05/27/17 Range/Units 03:55 Sodium 144 (134-144) MEQ/L Potassium 4.5 (3.6-5) MEQ/L Chloride 103 (98-107) MEQ/L Carbon Dioxide 36 H (22-30) MEQ/L BUN 37.0 H (9-20) MG/DL Creatinine 0.7 L (0.8-1.5) MG/DL Glucose 348 H (75-110) MG/DL Calcium 7.5 L (8.4-10.2) MG/DL Intake and Output 05/26/17 05/27/17 05/27/17 22:59 06:59 14:59 Intake Total 2528.160 / 2528.160 1514.590 / 1514.590 436.183 / 436.183 Output Total 1730 / 1730 1974 / 1974 525 / 525 Balance 798.160 / 798.160 -460.410 / -460.410 -88.817 / -88.817 Intake: IV 1688.160 / 1688.160 714.590 / 714.590 96.183 / 96.183 Bivalirudin 250 mg In NS 500ml 718.16 / 718.16 303.84 / 303.84 43.2 / 43.2 500 ml @ 43.2 mls/hr IV . [id number] KSENIA Rx#:[id number] Cefepime 1 gm In Ns 50 ml @ 100 100.000 / 100.000 50.000 / 50.000 mls/hr IV Q6H KSENIA Rx#: [id number] Dexmedetomidine 1,000 mcg In NS 520.00 / 520.00 260.000 / 260.000 37.983 / 37.983 250ml 250 ml @ 0.2 MCG/KG/HR 6 .87 mls/hr IV .Q24H PRN Rx#: [id number] FentaNYL 1,000 mcg In Ns 80 ml 200 / 200 100.750 / 100.750 15 / 15 @ Per Protocol IV .Q0M PRN Rx#: [id number] Levofloxacin Pb 750 mg In 150 150 / 150 ml @ 100 mls/hr IV Q24H KSENIA Rx# :[id number] Tube Feeding 640 / 640 640 / 640 240 / 240 Oral 640 / 640 640 / 640 240 / 240 Intake, Gastric Tube Irrigant 200 / 200 160 / 160 100 / 100 Amount Oral 200 / 200 160 / 160 100 / 100 Output: Urine Amount (Catheter) 1730 / 1730 1974 525 / 525 Other: Urine Appearance Clear Clear Clear Urine Color Yellow Yellow Yellow Weight 142.1 kg Patient Weight 05/28/17 06:59 Weight 142.1 kg Assessment and Plan - Attestation Attestation Narrative: 05/27/17 10:08 Recommendation After examining the patient I agree with the above assessment. I am involved in the formulation of the patient's plan of care. - Assessment and Plan (1) Community acquired pneumonia Current visit: No Status: Acute (2) Acute and chronic respiratory failure with hypercapnia Current visit: Yes Status: Acute (3) Chest pain Current visit: Yes Status: Acute (4) Atherosclerotic heart disease of [place] coronary artery without angina pectoris Current visit: Yes Status: Chronic (5) Essential (primary) hypertension Current visit: Yes Status: Chronic (6) Type 2 diabetes mellitus without complications Current visit: Yes Status: Chronic (7) Obesity (BMI 30-39.9) Current visit: Yes Status: Chronic (8) ANGELLA (obstructive sleep apnea) Current visit: Yes Status: Chronic (9) NSTEMI (non-ST elevated myocardial infarction) Current visit: Yes Status: Acute Hospital Course Summary Disclaimer: The visit summary below is not to be considered part of the above Progress Note.
--- NOTE | 2017-05-21 09:48 | XRay Report ---
Indication: chest pain PROCEDURE: XR chest 1V: Encounter: Initial Comparison: CT angiogram of the chest dated May 17, 2017 Findings: Interval development of right lower lobe airspace consolidation. Left lower lobe pulmonary nodule is better seen by CT. Increasing interstitial prominence. No pneumothorax or significant pleural effusion. Heart size and mediastinal contours are stable. Impression: New right lower lobe atelectasis, pneumonia or aspiration. .
[2017-05-21] MEDS: DEXMEDETOMIDINE 200 MCG in NS 50 ML IV PRN ×2 (10:10→17:01)
[2017-05-21] MEDS: HEPARIN DRIP 20,000 UNIT/500 ML BAG IV SCH (10:11)
--- NOTE | 2017-05-21 10:24 | Pulmonology Progress Note ---
<SandraAriane D - Last Filed: 05/21/17 10:16> Subjective Interval history: Pt. transferred to ICU due to increased dyspnea labored breathing and chest pain. Pt arrived with a wide complex tachycardia was cardioverted, currently ST. Pt. is currently on BiPAP and lethargic and combative at times. Pt's ABG was pH 7.10, pCO2 117, pO2 142, and HCO3 36.3. Due to pt's labs and dyspnea he will need to be intubated. Per nursing staff pt. was having chest pain earlier this am. Exam Vital signs: Temperature 96.7 F L 05/21/17 07:00 Pulse Rate 104 H 05/21/17 09:30 Respiratory Rate 52 H 05/21/17 09:30 Blood Pressure 149/67 H 05/21/17 09:30 Pulse Oximetry 97 05/21/17 09:30 - Constitutional severe distress, morbidly obese, disheveled, combative, agitated, obtunded - Routine HEENT Exam Head: Present: normocephalic, atraumatic ENT: Present: mucous membranes moist - Routine Neck Exam Present: supple. Absent: JVD, tracheal deviation - Routine Respiratory Exam Present: accessory muscle use, decreased breath sounds, respiratory distress, rhonchi, wheezes - Routine Cardiovascular Exam Present: S1, S2, tachycardia. Absent: no murmur, gallop, rubs - Routine Abdominal Exam Present: soft, normoactive bowel sounds - Routine Extremities Exam Present: cyanosis, no edema, pulses intact. Absent: non tender - Routine Skin Exam Present: intact, cyanosis, dry - Routine Neurological Exam Present: altered mental status - Routine Psychiatric Exam Present: unable to assess Assessment and Plan - Assessment and Plan Acute on Chronic Hypoxic Hypercapnic Respiratory Failure LLL mass 2.2 cm COPD exacerbation Chest Pain/Wide complex tachycardia Bacteremia + BC x 1 with strep ANGELLA/OHS Morbid Obesity DM Plan: Pt. is currently on bipap 18. Currently in respiratory distress, ABG 7.10/117/ 142/36.3. Called anesthesia at bedside for intubation, will start vent settings AC/VC, R 18, TV 550, PEEP 5. Place on propofol gtt for sedation. On pulmicort BID, A/A QID, solumedrol 80mg q6. + BC x 1 on rocephin, afebrile and no leukocytosis, repeat BC negative. CT chest with basilar infiltrates/atelectasis and LLL mass, will need CT guided bx after acute issues resolved. Chest pain this am with wide complex tachycardia, s/p cardioversion on heparin gtt. - Time Spent With Patient Total time spent is greater than 50% in coordination of care (as documented) at patient's floor/unit and/or counseling patient: 25 - 35 minutes <Donny Ashby - Last Filed: 05/21/17 14:28> Exam Vital signs: Temperature 96.7 F L 05/21/17 07:00 Pulse Rate 88 05/21/17 11:42 Respiratory Rate 18 05/21/17 11:42 Blood Pressure 149/67 H 05/21/17 09:30 Pulse Oximetry 99 05/21/17 11:42 Assessment and Plan (1) Lung mass Status: Acute Assessment and plan: LLL nodular density. planning outpatient biopsy Current Visit: Yes (2) Acute exacerbation of chronic obstructive airways disease Status: Acute Assessment and plan: complicated by pneumonia (bilateral R>L on CTA today). Current Visit: Yes (3) Acute and chronic respiratory failure with hypercapnia Status: Acute Assessment and plan: Now on vent with AC/VC+ Vt 550, rate 18, Fio2 75%, peep 5 on precedex and fentanyl for comfort Current Visit: Yes - Time Spent With Patient Total time spent is greater than 50% in coordination of care (as documented) at patient's floor/unit and/or counseling patient: - Attestation Attestation Narrative: I have seen and examined this patient. I agree with the notes by the BENNETT Addendum entered and electronically signed by Ariane Flores APRN 10:53: BiPAP settings R 18, 25/12, FiO2 90%
[2017-05-21] MEDS ORDERED: PROPOFOL 1,000 MG/100 ML VIAL IV PRN (10:39)
[2017-05-21] MEDS: ASPIRIN 81 MG CHEWABLE TABLET PO SCH (10:52)
[2017-05-21] MEDS: CITALOPRAM 40 MG TABLET PO SCH (10:52)
[2017-05-21] MEDS: ATENOLOL 25 MG TABLET PO SCH (10:52)
[2017-05-21] MEDS: METFORMIN 500 MG TABLET PO SCH (10:52)
[2017-05-21] MEDS: BuPROPion SR 150mg (12HR) TABLET PO SCH (10:52)
[2017-05-21] MEDS: GUAIFENESIN LA 600 MG TABLET PO SCH (10:53)
[2017-05-21] MEDS: GABAPENTIN 300 MG CAPSULE PO SCH ×2 (10:53→15:49)
[2017-05-21] MEDS: HYDROCODONE/APAP 7.5 MG/325 MG TABLET PO SCH (10:54)
--- NOTE | 2017-05-21 10:57 | XRay Report ---
Indication: post intubation PROCEDURE: XR chest 1V: Encounter: Initial Comparison: May 21, 2017 at 0933 Findings: New endotracheal tube in place with the tip projecting 3.3 cm above the haseeb. Patient is rotated towards the right. Continued bibasilar airspace disease, greater on the right. No gross pneumothorax. Right costophrenic angle is not included in the [id number]. Heart size and mediastinal contours are difficult to evaluate with irritation present. Impression: New endotracheal tube projects in appropriate position. .
--- NOTE | 2017-05-21 11:11 | Anesthesia Procedure Note ---
[facility] ANES Consult Intubation - Date and Time Date and Time: 05/21/17 Diagnosis: COPD Exacerbation/ Respitory Failure Allergies/Adverse Reactions: Allergies Allergy/AdvReac Type Severity Reaction Status Date / Time No Known Allergies Allergy Verified 04/17/17 10:12 - Vital Signs Height: 1.85 m Weight: 132.3 kg Initial Vital Signs: Temperature 99.7 F 05/17/17 05:14 Temperature Source Oral 05/17/17 05:14 Sepsis Recent Fever Within 48 Hours No 05/17/17 05:14 Sepsis Suspicion of Infection Yes 05/17/17 05:14 Sepsis Score/Level No Definite Risk 05/17/17 05:14 Sepsis Action Taken by Nursing No Action 05/17/17 05:14 Pulse Rate 130 H 05/17/17 05:14 Pulse Rhythm 05/17/17 05:14 Respiratory Rate 28 H 05/17/17 05:14 Respiratory Depth Normal 05/17/17 05:14 Blood Pressure 160/72 H 05/17/17 05:14 Blood Pressure Mean 101 05/17/17 05:14 Pulse Oximetry 92 05/17/17 05:14 Oxygen Delivery Method 05/17/17 05:14 Oxygen Flow Rate 5 05/17/17 05:14 Post Vital Signs: Temperature 96.7 F L 05/21/17 07:00 Temperature Source Oral 05/21/17 07:00 Sepsis Recent Fever Within 48 Hours No 05/17/17 05:14 Sepsis Suspicion of Infection Yes 05/17/17 05:14 Sepsis Score/Level No Definite Risk 05/17/17 05:14 Sepsis Action Taken by Nursing No Action 05/17/17 05:14 Pulse Rate 104 H 05/21/17 09:30 Pulse Rhythm 05/17/17 05:14 Respiratory Rate 52 H 05/21/17 09:30 Respiratory Effort Short of Breath 05/21/17 08:30 Respiratory Depth Shallow 05/21/17 08:30 Respiratory Pattern 05/21/17 08:30 Blood Pressure 149/67 H 05/21/17 09:30 Blood Pressure Mean 109 05/21/17 07:00 Blood Pressure Position Sitting 05/21/17 07:00 Pulse Oximetry 97 05/21/17 09:30 Oxygen Delivery Method 05/21/17 10:15 Oxygen Flow Rate 4 05/21/17 07:03 Fraction of Inspired Oxygen 35 05/19/17 15:18 SaO2/FiO2 Ratio 237 05/18/17 19:52 - Medications Inpatient Medications: Acetaminophen (Tylenol) 325 - 650 mg PO Q5H PRN PRN Reason: Discomfort Hydrocodone Bitart/Acetaminophen ([place] 7.5/325) 1 tab PO BID [facility] Last Admin: 05/21/17 10:54 Dose: Not Given Hydrocodone Bitart/Acetaminophen ([place] 7.5/325) 1 tab PO Q6H PRN PRN Reason: Pain Albuterol/Ipratropium (Duoneb) 3 ml AEROSOL RTQID [facility] Last Admin: 05/21/17 07:01 Dose: 3 ml Albuterol/Ipratropium (Duoneb) 3 ml AEROSOL RTQID PRN Aspirin (Asa) 81 mg PO DAILY [facility] Last Admin: 05/21/17 10:52 Dose: Not Given Atenolol (Tenormin) 25 mg PO DAILY [facility] Last Admin: 05/21/17 10:52 Dose: Not Given Benzocaine (Cepacol Sore Throat Lozenge) 1 lozenge MM Q2HR PRN PRN Reason: Sore throat Budesonide (Pulmicort Inhalation) 0.5 mg AEROSOL RTBID [facility] Last Admin: 05/21/17 07:01 Dose: 0.5 mg Bupropion HCl (Wellbutrin Sr) 150 mg PO BID [facility] Last Admin: 05/21/17 10:52 Dose: Not Given Citalopram Hydrobromide (Celexa) 40 mg PO DAILY [facility] Last Admin: 05/21/17 10:52 Dose: Not Given Gabapentin (Neurontin) 300 mg PO TID [facility] Last Admin: 05/21/17 10:53 Dose: Not Given Glucose (Glutose 15) 37.5 gm PO PRN PRN PRN Reason: Hypoglycemia Guaifenesin (Mucinex La) 1,200 mg PO BID [facility] Last Admin: 05/21/17 10:53 Dose: Not Given Ceftriaxone Sodium 2 gm/ (Sodium Chloride) 50 mls @ 100 mls/hr IV Q24H [facility] Last Infusion: 05/20/17 21:55 Dose: Infused Heparin Sodium (Porcine) (Heparin Drip) 20,000 unit in 500 mls @ 25 mls/hr IV .Q20H [facility]; 1,000 UNIT/HR PRN Reason: Protocol Last Admin: 05/21/17 10:11 Dose: 1,000 unit/hr, 25 mls/hr Dexmedetomidine HCl 200 mcg/ (Sodium Chloride) 52 mls @ 6.87 mls/hr IV .Q7H35M PRN; 0.2 MCG/KG/HR PRN Reason: Protocol Last Admin: 05/21/17 10:10 Dose: 0.2 mcg/kg/hr, 6.87 mls/hr Propofol (Diprivan) 1,000 mg in 100 mls @ 3.969 mls/hr IV .Q24H PRN; 5 MCG/KG/ MIN PRN Reason: Protocol Last Admin: 05/21/17 11:00 Dose: 5 mcg/kg/min, 3.969 mls/hr Insulin Aspart (Novolog) 2 - 8 unit SQ SS PRN; Protocol PRN Reason: Hyperglycemia Last Admin: 05/21/17 07:30 Dose: 3 unit Lorazepam (Ativan Inj) 0.5 mg IVP Q6H PRN Last Admin: 05/19/17 02:44 Dose: 0.5 mg Menthol (Ricola Sf) 1 lozenge MM PRN PRN PRN Reason: Cough Metformin HCl (Glucophage) 500 mg PO BIDWM [facility] Last Admin: 05/21/17 10:52 Dose: Not Given Methylprednisolone Sodium Succinate (Solu-Medrol) 80 mg IVP Q6HR [facility] Last Admin: 05/21/17 10:55 Dose: 80 mg Morphine Sulfate (Morphine Sulfate Inj) 1 - 2 mg IVP Q2H PRN PRN Reason: Pain Last Admin: 05/17/17 17:49 Dose: 1 mg Nitroglycerin (Nitrostat) 0.4 mg SL Q5MIN3 PRN PRN Reason: CP Last Admin: 05/21/17 08:35 Dose: 0.4 mg --Pom--(Itraconazole [Itraconazole] 200 Mg) 200 mg PO BID [facility] Last Admin: 05/21/17 10:56 Dose: Not Given Omeprazole (Prilosec) 40 mg PO ACB [facility] Last Admin: 05/21/17 06:27 Dose: 40 mg Ondansetron HCl (Zofran) 4 mg IVP Q6H PRN PRN Reason: Nausea &/or vomiting Last Admin: 05/19/17 02:45 Dose: 4 mg Simvastatin (Zocor) 20 mg PO HS KSENIA Last Admin: 05/20/17 21:23 Dose: 20 mg Sodium Chloride (Iv Flush) 10 - 80 ml IVF PRN PRN PRN Reason: Flushing Last Admin: 05/21/17 09:27 Dose: 30 ml Sodium Chloride (Deep Sea Nasal Moisturizing [place]) 1 spray EA NOSTRIL PRN PRN PRN Reason: Congestion Last Admin: 05/19/17 16:37 Dose: 1 spray - Home Medications Home Medications: Home Medications Medication Instructions Recorded Confirmed Type Gabapentin 300 mg PO TID #0 cap 06/19/15 05/17/17 History Omeprazole 40 mg PO DAILY #0 cap 06/19/15 05/17/17 History Albuterol/Ipratropium [Duoneb] 1 unit AEROSOL QID 04/17/17 05/17/17 History Aspirin 81 mg PO DAILY 04/17/17 05/17/17 History Atenolol [Tenormin] 25 mg PO DAILY 04/17/17 05/17/17 History Citalopram [Celexa] 40 mg PO DAILY 04/17/17 05/17/17 History Furosemide [Lasix] 20 mg PO DAILY 04/17/17 05/17/17 History Hydrocodone/APAP 7.5/325 [[place] 1 tab PO BID 04/17/17 05/17/17 History 7.5/325] Itraconazole 200 mg PO BID 04/17/17 05/17/17 History Metformin [Glucophage] 500 mg PO BIDWM 04/17/17 05/17/17 History Nitroglycerin [Nitrostat] 0.4 mg SL Q5MIN3 PRN 04/17/17 05/17/17 History Simvastatin 20 mg PO HS 04/17/17 05/17/17 History buPROPion HCl [Bupropion HCl Sr] 150 mg PO BID 04/17/17 05/17/17 History - Patient History Patient History: I have evaluated this patient and found no changes in the patient's history. - Pertinent Findings Lab: 05/21/17 03:27 05/21/17 03:27 EKG Rhythm: Sinus Tachycardia - Physical Exam Respiratory: Decreased Breath Sounds L, Decreased Breath Sounds R Cardiovascular: Regular Rate/Rhythm - Procedure Physician: Pérez Mouth: Moist ET Tube Depth at Upper Lip: 24 - ET Tube Placement ET Tube Placement #1 Confirmed ET Tube Placement By: Bilateral Breath Sounds, Equal Chest Rise Procedure: Induction RSI. Propofol 120mg/ Succinylcholine 140mg. Direct view Grade 3 view/ changed to Glidescope LoPro 3. Successful intubation. Vital signs stable BP 106/53, HR 101, SPO2 97%.
[2017-05-21] MEDS ORDERED: SUCCINYLCHOLINE 20mg/mL 10mL INJECTION ONE (11:20)
[2017-05-21] MEDS ORDERED: PROPOFOL 20 ML ONE (11:20)
--- NOTE | 2017-05-21 11:58 | Pharmacy Consult ---
Pharmacy Consult-Heparin - Laboratory Information Heparin Plt Count 217 T/MM3 (130-400) 05/21/17 03:27 - Consult Information Heparin consult: initial 61 y.o. Male started on Heparin per pharmacy consult after Adenosine cardioversion. CTA ordered to rule out PE. Initial dosing per cardiac guidelines Heparin bolus 5,000 units, and drip at 1, 000 units, hr. Will increase to PE dosing if new CTA findings support PE diagnosis. Pharmacy will monitor and adjust as needed. Thank you, Sandhya Vyas RP
[2017-05-21] MEDS ORDERED: MIDAZOLAM 2mg/2ml INJECTION IVP ONE (12:41)
[2017-05-21] MEDS ORDERED: SALINE FLUSH 10ml SYRINGE IV ONE (12:41)
[2017-05-21] MEDS ORDERED: FentaNYL 100 MCG/2 ML INJECTION IVP ONE (12:41)
[2017-05-21] MEDS: FentaNYL 1,000 MCG in NS 80 ML IV PRN (14:24)
--- NOTE | 2017-05-21 14:27 | CT Scan Report ---
Indication: chest pain, resp failure PROCEDURE: CT angio pulm emboli: Encounter: Initial Comparison: CT angiogram of the chest dated May 17, 2017 and chest x-ray from earlier today Technique: Axial CT pulmonary angiographic phase images were performed through the chest after the administration of intravenous contrast. Coronal and Sagittal MIP reconstructed images were created and reviewed. Automated Exposure Control and Iterative Reconstruction dose reducing techniques were utilized. Contrast: Omnipaque 350 55 mL Findings: Pulmonary arteries: Exam is diagnostic to the segmental pulmonary arterial level. No filling defects identified to suggest a pulmonary embolus Other findings: Patient is intubated with the endotracheal tube tip 3 cm above the haseeb. There is new groundglass opacity and consolidation in the right upper lobe with significant new consolidation in both lower lobes, greater on the right. No pneumothorax. Respiratory motion artifact. Continued irregular left lower lobe pulmonary nodule as seen previously. The central airways are patent. No axillary or mediastinal adenopathy. Heart size is stable. No pericardial effusion. The upper abdomen shows no acute findings. Impression: 1. No pulmonary embolus. 2. Bilateral pneumonia, worst in the right lower lobe. .
[2017-05-21] MEDS ORDERED: ACETAMINOPHEN 650 MG SUPPOSITORY PR PRN (15:10)
[2017-05-21] MEDS ORDERED: VANCOMYCIN - PHARMACY CONSULT MC ONE (15:19)
--- NOTE | 2017-05-21 15:19 | DC Cardioversion ---
DATE OF PROCEDURE May 21, [address] Sarahi Luque The patient is a pleasant 61-year-old gentleman who developed arrhythmia that appeared to be atrial flutter this morning and was referred for cardioversion. Informed consent was obtained after explaining the procedure and the potential risks to the patient who agreed to proceed with the procedure. PROCEDURE 1. DC cardioversion. Conscious sedation was performed using Versed and fentanyl. Anterior-lateral Zoll pads were applied. 360 joules of energy was delivered in a synchronized manner. However, the patient did not convert to sinus. He tolerated the procedure well with no complications. IMPRESSION 1. Unsuccessful attempt at cardioversion of atrial flutter into sinus rhythm. Will proceed with rate control and further evaluation. JOSSD
[2017-05-21] MEDS: CEFEPIME 1 GM in NS 50 ML IV SCH ×2 (15:55→20:33)
--- NOTE | 2017-05-21 16:00 | Pharmacy Consult-Antibiotics ---
Pharmacy Consult-Vancomycin - Laboratory Information WBC 7.9 T/MM3 (4.5-11.0) 05/21/17 03:27 BUN 40.0 MG/DL (9-20) H 05/21/17 03:27 Creatinine 0.9 MG/DL (0.8-1.5) D 05/21/17 03:27 - Consult Information Vancomycin consult noted by Dr Luque for Mr Moreno, who is 61 years old and weighs 132.3kg. He has a diagnosis of pneumonia. Since his renal function is good will begin vancomycin 1500mg IV q8h. Will continue to monitor and adjust accordingly. Thank you.
[2017-05-21] MEDS: LEVOFLOXACIN PB 750 MG/150 ML BAG IV SCH (16:12)
--- NOTE | 2017-05-21 17:40 | Pharmacy Consult ---
Pharmacy Consult-Heparin - Laboratory Information Heparin Plt Count 217 T/MM3 (130-400) 05/21/17 03:27 APTT 27.7 SEC (24-36) 05/21/17 16:59 - Consult Information HEPARIN CONSULT (Recurring): Weight based cardiac heparin protocol. PTT = 27.7 Sec. Re-bolus with 3000 units of heparin and increase Heparin Drip to units/hr ( 1400 ml/hr). Will recheck PTT at 0200 and adjust regimen as needed. Thank you.
[2017-05-21] MEDS: NS IV PRN (19:38)
[2017-05-21] MEDS: DEXMEDETOMIDINE IV PRN (19:38)
[2017-05-21] MEDS ORDERED: INSULIN GLARGINE 100unit/ml INJECTION SQ SCH (21:00)
[2017-05-22] MEDS: FentaNYL 1,000 MCG in NS 80 ML IV PRN ×4 (01:12→21:49)
[2017-05-22] MEDS: LABETALOL 100mg/20ml INJECTION IVP PRN ×2 (01:58→06:05)
[2017-05-22] MEDS: HEPARIN DRIP 20,000 UNIT/500 ML BAG IV SCH ×3 (02:49→15:58)
[2017-05-22] MEDS: METHYLPREDNISOLONE SOD SUCC 125mg/2ml INJECTION IVP SCH ×4 (02:49→20:14)
[2017-05-22] MEDS: ALBUTEROL/IPRATROPIUM 2.5mg-0.5mg/3ml NEB AEROSOL SCH ×6 (03:03→23:07)
[2017-05-22] MEDS ORDERED: HEPARIN 1,000unit/ml INJECTION 10ml IVP ONE (03:37)
[2017-05-22] MEDS: MORPHINE SULFATE 4mg INJECTION IVP PRN ×2 (03:45→06:34)
[2017-05-22] MEDS: CEFEPIME 1 GM in NS 50 ML IV SCH ×4 (04:18→21:49)
[2017-05-22] MEDS: INSULIN ASPART 100unit/ml INJECTION SQ PRN ×3 (06:05→20:14)
[2017-05-22] MEDS: BUDESONIDE INH.SOLN 0.5mg/2ml NEB AEROSOL SCH ×2 (06:52→21:32)
[2017-05-22] MEDS: NS IV PRN ×2 (07:29→18:20)
[2017-05-22] MEDS: DEXMEDETOMIDINE IV PRN ×2 (07:29→18:20)
--- NOTE | 2017-05-22 08:39 | Echocardiogram ---
DATE OF PROCEDURE May 21, [address] Sarahi Luque This is a two-dimensional echo with spectral Doppler, color-flow and M-mode. It was obtained in a patient with shortness of breath and respiratory failure. This was a technically very difficult study. Left atrial dimension is at the upper limits of normal. Left ventricular end- diastolic dimension is normal. Left ventricle wall thickness is increased. LV systolic function is reduced with global hypokinesia with ejection fraction of about 30%. Right atrium is normal. Right ventricle is normal. Aortic root dimension is normal. Mitral valve is morphologically normal with trace of mitral regurgitation. Aortic valve was not visualized well. However, Doppler studies indicate no stenosis. Mild aortic insufficiency is present. Tricuspid valve shows trace of tricuspid regurgitation with normal estimated pulmonary artery systolic pressure of 28. Pulmonary valve was not visualized well but Doppler studies indicate no stenosis or insufficiency. There is no pericardial effusion. IMPRESSION 1. Technically difficult study. 2. Global hypokinesia with ejection fraction of about 30%. 3. Trace of mitral regurgitation. 4. Mild aortic insufficiency. 5. Mild tricuspid regurgitation with normal estimated pulmonary artery systolic pressure of 28. 6. Mild left ventricular hypertrophy. MTDD
[2017-05-22] MEDS ORDERED: HYDRALAZINE 20 MG/ML INJECTION IVP PRN (08:47)
[2017-05-22] MEDS: PANTOPRAZOLE 40 MG INJECTION IVP SCH (09:00)
[2017-05-22] MEDS: CLONIDINE 0.1 MG/24 HR PATCH TD SCH (09:51)
--- NOTE | 2017-05-22 10:17 | Cardiology Progress Note ---
<Andreina Grijalva - Last Filed: 05/23/17 13:07> Subjective Principal diagnosis: chest pain Interval history: Howard is seen in follow up for chest pain and NSTEMI. He is sedated on the ventilator. EKG is obtained as has ST depression on telemetry. Exam Vital signs: Temperature 98.7 F 05/22/17 07:30 Pulse Rate 68 05/22/17 10:09 Respiratory Rate 18 05/22/17 09:33 Blood Pressure 202/87 H 05/22/17 10:09 Pulse Oximetry 95 05/22/17 09:33 - Constitutional no acute distress - Routine HEENT Exam Head: Present: normocephalic - Routine Neck Exam Absent: JVD, carotid bruit - Routine Respiratory Exam Present: patient mechanically ventilated, diminished air movement - Routine Cardiovascular Exam Present: RRR - Routine Abdominal Exam Present: soft - Routine Extremities Exam Present: edema - Routine Skin Exam Present: intact, dry - Additional findings Additional findings: Acetaminophen (Tylenol) 325 - 650 mg PO Q5H PRN PRN Reason: Discomfort Acetaminophen (Tylenol Supp) 650 mg HI Q5H PRN PRN Reason: Pain Hydrocodone Bitart/Acetaminophen ([place] 7.5/325) 1 tab PO BID [facility] Last Admin: 05/21/17 10:54 Dose: Not Given Hydrocodone Bitart/Acetaminophen ([place] 7.5/325) 1 tab PO Q6H PRN PRN Reason: Pain Albuterol/Ipratropium (Duoneb) 3 ml AEROSOL RTQID PRN Albuterol/Ipratropium (Duoneb) 3 ml AEROSOL Q4H [facility] Last Admin: 05/22/17 06:52 Dose: 3 ml Aspirin (Asa) 81 mg PO DAILY [facility] Last Admin: 05/21/17 10:52 Dose: Not Given Atenolol (Tenormin) 25 mg PO DAILY [facility] Last Admin: 05/21/17 10:52 Dose: Not Given Benzocaine (Cepacol Sore Throat Lozenge) 1 lozenge MM Q2HR PRN PRN Reason: Sore throat Budesonide (Pulmicort Inhalation) 0.5 mg AEROSOL RTBID [facility] Last Admin: 05/22/17 06:52 Dose: 0.5 mg Bupropion HCl (Wellbutrin Sr) 150 mg PO BID [facility] Last Admin: 05/21/17 10:52 Dose: Not Given Citalopram Hydrobromide (Celexa) 40 mg PO DAILY [facility] Last Admin: 05/21/17 10:52 Dose: Not Given Clonidine HCl (Catapres-Tts 1) 0.1 mg TD Q7D@0900 [facility] Last Admin: 05/22/17 09:51 Dose: 0.1 mg Clonidine HCl (Catapres Patch Removal) 1 removal TD Q7D [facility] Gabapentin (Neurontin) 300 mg PO TID [facility] Last Admin: 05/21/17 15:49 Dose: Not Given Glucose (Glutose 15) 37.5 gm PO PRN PRN PRN Reason: Hypoglycemia Guaifenesin (Mucinex La) 1,200 mg PO BID [facility] Last Admin: 05/21/17 10:53 Dose: Not Given Hydralazine HCl (Apresoline) 5 mg IVP Q6H PRN PRN Reason: Hypertension Last Admin: 05/22/17 10:09 Dose: 5 mg Heparin Sodium (Porcine) (Heparin Drip) 20,000 unit in 500 mls @ 41 mls/hr IV .[id number] [facility] PRN Reason: Protocol Last Admin: 05/22/17 07:24 Dose: Not Given Fentanyl 1,000 mcg/ Sodium (Chloride) 100 mls @ 0 mls/hr IV .Q0M PRN; Per Protocol PRN Reason: Protocol Last Admin: 05/22/17 08:48 Dose: 17.5 mls/hr, 17.5 mls/hr Cefepime HCl 1 gm/ Sodium (Chloride) 50 mls @ 100 mls/hr IV Q6H [facility] Last Admin: 05/22/17 09:09 Dose: 100 mls/hr Levofloxacin/Dextrose (Levaquin Premix) 750 mg in 150 mls @ 100 mls/hr IV Q24H [facility] Last Infusion: 05/21/17 18:00 Dose: Infused Vancomycin HCl 1,500 mg/ (Sodium Chloride) 500 mls @ 250 mls/hr IV Q8H [facility] Last Infusion: 05/22/17 04:18 Dose: Infused Dexmedetomidine HCl 1,000 mcg/ (Sodium Chloride) 260 mls @ 6.87 mls/hr IV .Q24H PRN; 0.2 MCG/KG/HR PRN Reason: Protocol Last Admin: 05/22/17 07:29 Dose: 0.67 mcg/kg/hr, 23.1 mls/hr Insulin Aspart (Novolog) 2 - 14 unit SQ SS PRN; Protocol PRN Reason: Hyperglycemia Last Admin: 05/22/17 06:05 Dose: 7 unit Insulin Glargine (Lantus) 10 unit SQ HS [facility] Last Admin: 05/21/17 20:14 Dose: 10 unit Lorazepam (Ativan Inj) 0.5 mg IVP Q6H PRN Last Admin: 05/22/17 04:59 Dose: 0.5 mg Menthol (Ricola Sf) 1 lozenge MM PRN PRN PRN Reason: Cough Metformin HCl (Glucophage) 500 mg PO BIDWM [facility] Last Admin: 05/21/17 10:52 Dose: Not Given Methylprednisolone Sodium Succinate (Solu-Medrol) 80 mg IVP Q6HR [facility] Last Admin: 05/22/17 09:01 Dose: 80 mg Morphine Sulfate (Morphine Sulfate Inj) 1 - 2 mg IVP Q2H PRN PRN Reason: Pain Last Admin: 05/22/17 06:34 Dose: 2 mg Nitroglycerin (Nitrostat) 0.4 mg SL Q5MIN3 PRN PRN Reason: CP Last Admin: 05/21/17 08:35 Dose: 0.4 mg --Pom--(Itraconazole [Itraconazole] 200 Mg) 200 mg PO BID [facility] Last Admin: 05/21/17 10:56 Dose: Not Given Omeprazole (Prilosec) 40 mg PO ACB [facility] Last Admin: 05/21/17 06:27 Dose: 40 mg Ondansetron HCl (Zofran) 4 mg IVP Q6H PRN PRN Reason: Nausea &/or vomiting Last Admin: 05/19/17 02:45 Dose: 4 mg Pantoprazole Sodium (Protonix Iv) 40 mg IVP DAILY [facility] Last Admin: 05/22/17 09:00 Dose: 40 mg Simvastatin (Zocor) 20 mg PO HS [facility] Last Admin: 05/20/17 21:23 Dose: 20 mg Sodium Chloride (Iv Flush) 10 - 80 ml IVF PRN PRN PRN Reason: Flushing Last Admin: 05/21/17 09:27 Dose: 30 ml Sodium Chloride (Deep Sea Nasal Moisturizing [place]) 1 spray EA NOSTRIL PRN PRN PRN Reason: Congestion Last Admin: 05/19/17 16:37 Dose: 1 spray - Urinary Catheter Management Urethral Cath placed during this visit: yes Insertion date: 05/21/17 Results 05/22/17 02:23 05/22/17 02:23 Cardiac Enzymes 05/21/17 05/21/17 05/22/17 Range/Units 13:57 19:45 02:23 AST 46 (17-59) U/L Troponin I 1.500 H D 3.090 H D (0-0.12) ng/ml 05/22/17 Range/Units 02:23 AST (17-59) U/L Troponin I 2.100 H (0-0.12) ng/ml Coagulation 05/21/17 05/22/17 Range/Units 16:59 02:23 APTT 27.7 40.8 H (24-36) SEC Lipids 05/21/17 05/22/17 Range/Units 03:27 02:23 Triglycerides 300 H 228 H (40-160) MG/DL CBC 05/22/17 Range/Units 02:23 WBC 8.6 (4.5-11.0) T/MM3 RBC 4.20 L (4.50-5.90) M/MM3 Hgb 12.2 L (13.5-17.5) GM/DL Hct 40.9 L (41-53) % Plt Count 178 (130-400) T/MM3 Neut # (Auto) Not performed Lymph # (Auto) Not performed [place] # (Auto) Not performed Eos # (Auto) Not performed Baso # (Auto) Not performed Comprehensive Metabolic Panel 05/21/17 05/22/17 Range/Units 13:55 02:23 Sodium 146 H 144 (134-144) MEQ/L Potassium 3.9 4.0 (3.6-5) MEQ/L Chloride 102 98 (98-107) MEQ/L Carbon Dioxide 33 H 38 H (22-30) MEQ/L BUN 47.0 H 41.0 H (9-20) MG/DL Creatinine 1.3 D 1.1 D (0.8-1.5) MG/DL Glucose 245 H 289 H (75-110) MG/DL Calcium 8.5 8.2 L (8.4-10.2) MG/DL AST 46 (17-59) U/L ALT 92 H (21-72) U/L Alkaline Phosphatase 61 (38-126) U/L Total Protein 5.6 L (6.3-8.2) G/DL Albumin 3.0 L (3.5-5.0) G/DL Intake and Output 05/21/17 05/22/17 05/22/17 22:59 06:59 14:59 Intake Total 1118.637 / 6964.041 2793.985 / 1127.985 91.349 / 91.349 Output Total 965 / 965 595 / 595 430 / 430 Balance 153.637 / 153.637 532.985 / 532.985 -338.651 / -338.651 Intake: IV 1118.637 / 0437.729 2220.985 / 1127.985 91.349 / 91.349 Cefepime 1 gm In Ns 50 ml @ 100 100 / 100 50 / 50 mls/hr IV Q6H [facility] Rx#: [id number] Dexmedetomidine 1,000 mcg In NS 56.966 / 56.966 192.56 / 192.56 10.474 / 10.474 250ml 250 ml @ 0.2 MCG/KG/HR 6 .87 mls/hr IV .Q24H PRN Rx#: [id number] Dexmedetomidine 200 mcg In Ns 47.671 / 47.671 50 ml @ 0.2 MCG/KG/HR 6.87 mls/ hr IV .Q7H35M PRN Rx#:[id number] FentaNYL 1,000 mcg In Ns 80 ml 44.0 / 44.0 92.125 / 92.125 39.875 / 39.875 @ Per Protocol IV .Q0M PRN Rx#: [id number] Heparin Drip 20,000 unit In 500 220 / 220 293.300 / 293.300 41 / 41 ml @ 41 mls/hr IV .[id number] [facility] Rx#:[id number] Levofloxacin Pb 750 mg In 150 150 / 150 ml @ 100 mls/hr IV Q24H [facility] Rx# :[id number] Vancomycin 1,500 mg In NS 500ml 500 / 500 500.0 / 500.0 500 ml @ 250 mls/hr IV Q8H [facility] Rx#:[id number] Output: Urine 470 / 470 Urine Amount (Catheter) 495 / 495 595 / 595 430 / 430 Other: Urine Appearance Clear Clear Clear Urine Color Pale Pale Pale Yellow Yellow Yellow - Imaging and Cardiology Echo: report reviewed EKG results: image reviewed Imaging & Cardiology Narrative: Date of Exam: 05/21/17 Type of Exam(s): US echo doppler complete DATE OF PROCEDURE May 21, [address] Sarahi Luque This is a two-dimensional echo with spectral Doppler, color-flow and M-mode. It was obtained in a patient with shortness of breath and respiratory failure. This was a technically very difficult study. Left atrial dimension is at the upper limits of normal. Left ventricular end- diastolic dimension is normal. Left ventricle wall thickness is increased. LV systolic function is reduced with global hypokinesia with ejection fraction of about 30%. Right atrium is normal. Right ventricle is normal. Aortic root dimension is normal. Mitral valve is morphologically normal with trace of mitral regurgitation. Aortic valve was not visualized well. However, Doppler studies indicate no stenosis. Mild aortic insufficiency is present. Tricuspid valve shows trace of tricuspid regurgitation with normal estimated pulmonary artery systolic pressure of 28. Pulmonary valve was not visualized well but Doppler studies indicate no stenosis or insufficiency. There is no pericardial effusion. IMPRESSION 1. Technically difficult study. 2. Global hypokinesia with ejection fraction of about 30%. 3. Trace of mitral regurgitation. 4. Mild aortic insufficiency. 5. Mild tricuspid regurgitation with normal estimated pulmonary artery systolic pressure of 28. 6. Mild left ventricular hypertrophy. 05/22/17 10:23 05/22/17 10:24 Date of Exam: 05/21/17 Ordering Provider: Ariane Flores APRN Type of Exam(s): XR chest 1V Reason for Exam(s): post intubation Indication: post intubation PROCEDURE: XR chest 1V: Encounter: Initial Comparison: May 21, 2017 at 0933 Findings: New endotracheal tube in place with the tip projecting 3.3 cm above the haseeb. Patient is rotated towards the right. Continued bibasilar airspace disease, greater on the right. No gross pneumothorax. Right costophrenic angle is not included in the [id number]. Heart size and mediastinal contours are difficult to evaluate with irritation present. Impression: New endotracheal tube projects in appropriate position. - EKG Interpretation EKG: sinus rhythm Assessment and Plan - Assessment and Plan (1) Chest pain Current visit: Yes Status: Acute (2) Community acquired pneumonia Current visit: No Status: Acute (3) Acute and chronic respiratory failure with hypercapnia Current visit: Yes Status: Acute (4) Atherosclerotic heart disease of [place] coronary artery without angina pectoris Current visit: Yes Status: Chronic (5) Essential (primary) hypertension Current visit: Yes Status: Chronic (6) Type 2 diabetes mellitus without complications Current visit: Yes Status: Chronic (7) Obesity (BMI 30-39.9) Current visit: Yes Status: Chronic (8) ANGELLA (obstructive sleep apnea) Current visit: Yes Status: Chronic (9) NSTEMI (non-ST elevated myocardial infarction) Current visit: Yes Status: Acute Troponin: 1) 0.015, 2) 1.500, 3) 3.090, 4) 2.100 EKG: SR, anterolateral ischemia V3-V6, inferior ischemia II/aVf Left heart cath when more stable Continue Heparin drip. - Assessment and Plan 05/21/17 Reportedly had severe chest pain, was johnson and diaphoretic as well as tachypneic followed by decreased LOC. - HR 140s, sinus tach vs. A flutter - Given Adenosine 6mg IVP, followed by 12mg X2 without slowing HR. - Sedation given and attempted DCCV which was unsuccessful. - Following 2nd dose of Metoprolol 5mg IV heart rate slowed enough to confirm it is Sinus tachycardia. - Repeat EKG obtained, started on Heparin drip. - Trend Troponin - 2D echo - CTA for emboli/ dissection 05/22/17 NSTEMI: - Troponin: 1) 0.015, 2) 1.500, 3) 3.090, 4) 2.100 - EKG: SR, anterolateral ischemia V3-V6, inferior ischemia II/aVf - Left heart cath when more stable - Continue Heparin drip. HTN: Catapress TTS 1 patch while NPO - Hydralazine prn as ordered - Labetalol prn, hold HR <65 Thank you for allowing us to participate in the care of this patient, we will follow along with you. Hospital Course Summary Disclaimer: The visit summary below is not to be considered part of the above Progress Note. Hospital Course: 05/17/17 Admission Admit to observation status under the care of Dr. Lopez. Sepsis work up initiated in ED. Patient meeting SIRS criteria based on tachycardia, tachypnea and reported fevers at home without obvious source. Initial lactate was 1.4 with repeat lactate decreased to 0.9. Blood cultures pending. WBC stable at 5.0. CXR revealed left basilar scarring without focal pneumonia. Respiratory panel was negative. Patient was given DuoNeb treatments and Solu-Medrol 125mg IV in ED. Will continue respiratory care with DuoNeb treatments QID and Q6H PRN as well as Solu -Medrol 125mg IV Q6H. History of diabetes with A1c on 04/17/17 at 6.4%. Continue home medications and monitor blood sugars closely given treatment with steroids. Sliding scale insulin as indicated for hyperglycemia. Patient was placed on BiPAP in ED with improvement. Continue BiPAP as indicated. Ativan as needed for anxiety and agitation while on BiPAP. Will monitor closely on telemetry with continuous pulse oximetry. Oxygen as needed to maintain SAO2 between 90-95%, weaning as able to baseline of 5L. SCDs for DVT prophylaxis. Given sudden onset of dyspnea, will obtain CT angio chest for further evaluation of PE - results pending. NS at 100cc/hr for hydration given decreased oral intake as on BiPAP. Monitor daily weight closely for signs of fluid overload. Recheck labs in AM to monitor blood counts, electrolytes and renal function. Patient wishes to maintain FULL CODE status. Upon discharge, patient's care will be returned to his PCP, Dr. dOom. 05/18/17 Don reports that his breathing is a little better today and is he is more alert. New cough with sputum production. 1 of the 2 blood cultures obtained on admission is POSITIVE for Streptococcus. Night telehospitalist was notified and Rocephin 2g IV Q24 hours was initiated for antimicrobial coverage. Given new cough, will try and obtain a sputum culture. Mucinex for mucolytic effect. Ricola for cough. Continue respiratory care including nebulized treatments. Continue to encourage BiPAP as indicated and supplemental oxygen to maintain SAO2 between 90 -95%. Wean oxygen to baseline of 5L as able. Given sudden onset of dyspnea, CT angio chest was obtained and revealed no PE but did note 2.2cm left lower lobe pulmonary nodule raising concern for primary lung malignancy and recommended further evaluation. Will discuss consideration of pulmonary consult for further evaluation. Continue Solu-Medrol 125mg IV Q6 hours. Anticipate initiation of tapering in near future. Blood sugars remain elevated, most likely steroid effect, ranging from 160's-> 200. Continue sliding scale insulin. Given recent CT with contrast, will hold metformin and restart 05/19/17. Continue NS at 75cc/hr for hydration. Monitor urinary output and daily weight closely for signs of fluid over load. Oral intake is good. Consider discontinuation of fluids this afternoon. Ativan as needed for anxiety and agitation while on BiPAP. Troponins continue to trend up slowing - 0.015, 0.017, 0.029, 0.045 and 0.048 this morning. Will recheck troponin at 1030 and continue to monitor closely on telemetry. Patient denies chest pain. SCDs for DVT prophylaxis. Recheck labs in AM to monitor blood counts, electrolytes and renal function. Discussed at length with patient and family the importance of smoking cessation. He admits to wanting to stop smoking and inquired about initiation of Chantix. Continue Wellbutrin for smoking cessation. With BC positive and starting IV antibiotics, will change admission status to inpatient. Anticipate greater than 2 midnights of care needed. 05/19/17 Continue with Rocephin for antimicrobial coverage. With lungs still very tight and congested, will continue with Solu-Medrol 125mg IV q 6 hours. Continue Neb treatments and acapella. Encourage use of BiPAP as much as able to help his chronic hypercapnea. Stressed with about the importance of him not smoking. She understand. Will consult with Dr Ashby for pulm evaluation. Will discontinue IVF. May restart metformin this evening. Sugars with elevation secondary to steroids. Did give Diamox 500mg x1 this am for fluid motivation and to help minimize contraction alkalosis. PT/OT to evaluate and initiate treatment tomorrow for his significant pulmonary debility. 05/20 Continue with Rocephin for antimicrobial coverage. One blood culture was positive with streptococcus Viridans, Repeat BC were drawn this morning. Scheduled breathing tx, IV solu-medrol, as well as oxygen and Bipap Appreciate Dr Ashby consultation. Likely require bronchoscopy for biopsy of lung mass. Continue to monitor BGM remain elevated. Metformin was resumed as well as sliding scale insulin. Encourage PT/OT for strengthening 05/21 Resp failure --> ABG shows resp acidosis and he was placed on BiPAP with improvement in color. Repeat ABG shows pH 7.12, pCO2 106, pO2 185. CXR ordered. BG 230. Chest pain --> EKG shows ST changes and widened QRS, poss a-flutter; troponin pending. Dr. Govea consulted. He's had 2 NTG but remains very hypertensive with SBP 220s. Pt failed to respond to adenosine, and subseqently was cardioverted with conversion to sinus tach. Rapid response activated and Dr. Ramírez was at bedside x20 min. Transferred to CCU, where pt was met by Dr. Govea for evaluation. Continue treatment for resp status including steroids and Rocephin. <Francis Govea - Last Filed: 05/27/17 10:13> Exam Vital signs: Temperature 101.4 F H 05/27/17 08:00 Pulse Rate 75 05/27/17 09:30 Respiratory Rate 16 05/27/17 09:30 Blood Pressure 141/67 H 05/27/17 09:00 Pulse Oximetry 97 05/27/17 09:30 - Urinary Catheter Management Urethral Cath placed during this visit: no Results 05/27/17 03:54 05/27/17 03:55 CBC 05/27/17 Range/Units 03:54 WBC 11.4 H (4.5-11.0) T/MM3 RBC 4.16 L (4.50-5.90) M/MM3 Hgb 12.4 L (13.5-17.5) GM/DL Hct 41.4 (41-53) % Plt Count 90 L (130-400) T/MM3 Neut # (Auto) Not performed Lymph # (Auto) Not performed [place] # (Auto) Not performed Eos # (Auto) Not performed Baso # (Auto) Not performed Comprehensive Metabolic Panel 05/27/17 Range/Units 03:55 Sodium 144 (134-144) MEQ/L Potassium 4.5 (3.6-5) MEQ/L Chloride 103 (98-107) MEQ/L Carbon Dioxide 36 H (22-30) MEQ/L BUN 37.0 H (9-20) MG/DL Creatinine 0.7 L (0.8-1.5) MG/DL Glucose 348 H (75-110) MG/DL Calcium 7.5 L (8.4-10.2) MG/DL Intake and Output 05/26/17 05/27/17 05/27/17 22:59 06:59 14:59 Intake Total 2528.160 / 2528.160 1514.590 / 1514.590 436.183 / 436.183 Output Total 1729 525 / 525 Balance 798.160 / 798.160 -460.410 / -460.410 -88.817 / -88.817 Intake: IV 1688.160 / 1688.160 714.590 / 714.590 96.183 / 96.183 Bivalirudin 250 mg In NS 500ml 718.16 / 718.16 303.84 / 303.84 43.2 / 43.2 500 ml @ 43.2 mls/hr IV . [id number] [facility] Rx#:[id number] Cefepime 1 gm In Ns 50 ml @ 100 100.000 / 100.000 50.000 / 50.000 mls/hr IV Q6H [facility] Rx#: [id number] Dexmedetomidine 1,000 mcg In NS 520.00 / 520.00 260.000 / 260.000 37.983 / 37.983 250ml 250 ml @ 0.2 MCG/KG/HR 6 .87 mls/hr IV .Q24H [facility] Rx#: [id number] FentaNYL 1,000 mcg In Ns 80 ml 200 / 200 100.750 / 100.750 15 / 15 @ Per Protocol IV .Q0M PRN Rx#: [id number] Levofloxacin Pb 750 mg In 150 150 / 150 ml @ 100 mls/hr IV Q24H [facility] Rx# :[id number] Tube Feeding 640 / 640 640 / 640 240 / 240 Oral 640 / 640 640 / 640 240 / 240 Intake, Gastric Tube Irrigant 200 / 200 160 / 160 100 / 100 Amount Oral 200 / 200 160 / 160 100 / 100 Output: Urine Amount (Catheter) 1729 525 / 525 Other: Urine Appearance Clear Clear Clear Urine Color Yellow Yellow Yellow Weight 142.1 kg Patient Weight 05/28/17 06:59 Weight 142.1 kg Assessment and Plan - Assessment and Plan (1) Community acquired pneumonia Current visit: No Status: Acute (2) Acute and chronic respiratory failure with hypercapnia Current visit: Yes Status: Acute (3) Chest pain Current visit: Yes Status: Acute (4) Atherosclerotic heart disease of [place] coronary artery without angina pectoris Current visit: Yes Status: Chronic (5) Essential (primary) hypertension Current visit: Yes Status: Chronic (6) Type 2 diabetes mellitus without complications Current visit: Yes Status: Chronic (7) Obesity (BMI 30-39.9) Current visit: Yes Status: Chronic (8) ANGELLA (obstructive sleep apnea) Current visit: Yes Status: Chronic (9) NSTEMI (non-ST elevated myocardial infarction) Current visit: Yes Status: Acute - Attestation Attestation Narrative: 05/27/17 10:13 Recommendation After examining the patient I agree with the above assessment. I am involved in the formulation of the patient's plan of care. Hospital Course Summary Disclaimer: The visit summary below is not to be considered part of the above Progress Note.
--- NOTE | 2017-05-22 10:30 | Progress Note ---
- Date 05/22/17 Subjective: Mr. Moreno remains sedated on the vent. BP has been elevated overnight with no response to IV labetalol. He has remainded in SR without recurrent tachycardia. reports episodic CP prior to yesterday morning but that yesterday was different than usual and pt asked for help which is unusual for him. Some thick sputum when suctioned. Objective Vital signs: Temperature 98.7 F 05/22/17 07:30 Pulse Rate 68 05/22/17 10:09 Respiratory Rate 18 05/22/17 09:33 Blood Pressure 202/87 H 05/22/17 10:09 Pulse Oximetry 95 - 40% 05/22/17 09:33 I/O 3064/2043 Sedated on Precedex/fentanyl Pupils 1 mm bilaterally, conjugate gaze, conjunctiva clear, sclera anicteric; orally intubated Respirations nonlabored, diminished airflow anteriorly, anterior valiente clear Regular rhythm, diminished heart tones Obese abdomen, soft, nontender, diminished bowel sounds Stasis changes bilateral lower extremities, pedal pulses nonpalpable Minor movement bilateral lower extremities with palpation of feet Rhythm: Normal Sinus Rhythm Height/Weight/BMI: Height 1.85 m Weight 132.3 kg Body Mass Index 39.7 Results - Labs CBC & Chem 7: 05/22/17 02:23 05/22/17 02:23 Labs: S79 B8 L10 M3 troponin 1.5-3.09-2.1 accuchecks [phone] past 24 hrs ALT 92, other LTFs nl Microbiology Results: 05/21/17 13:45 Sputum, Expectorated Gram Stain - many WBC, few G+cocci in pairs, few G- rods, few G+rods 05/21/17 13:45 Sputum, Expectorated Sputum Culture - Preliminary Early growth 05/20/17 04:36 Midline Blood Culture - Preliminary No Growth After 2 Days 05/20/17 04:36 Midline Blood Culture - Preliminary No Growth After 2 Days 1/2 BC from 05/17 + Strep viridans - ABG Interpretation ABG results: 7.41/62/59/39 with vent, FiO2 40% this am - ECG Data Tracing #1 I reviewed this ECG and interpreted as documented below: (ECG this am with SR, inf-ant-lat T inversion) - Imaging and Cardiology Chest x-ray Status: image reviewed by me (intubated, lower lobe infiltrates-right greater than left) Assessment and Plan (1) Acute and chronic respiratory failure with hypercapnia Current visit: Yes Status: Acute (2) Acute exacerbation of chronic obstructive airways disease Current visit: Yes Status: Acute (3) NSTEMI (non-ST elevated myocardial infarction) Current visit: Yes Status: Acute Assessment and Plan: Assessment Acute on chronic respiratory failure with hypercapnia and hypoxia - baseline home oxygen at 5L; intubated 05/21. Wide complex tachycardia; s/p cardioversion with return to sinus tach NSTEMI-peak troponin 3.09, diffuse T changes COPD exacerbation. Bilateral lower lobe pneumonia-05/21/17 Bacteremia secondary to streptococcus viridans (1 of 2 BC from admission positive) Pulmonary nodule - Irregular 2.2cm left lower lobe pulmonary nodule Anemia, unspecified, stable Coronary Artery Disease Hypertension Sleep Apnea Diabetes Mellitus Type 2 - A1c on 04/17/17 was 6.4% GERD Osteoarthritis Peripheral neuropathy Fibromyalgia Depression Tobacco dependency Peripheral vascular disease Morbid obesity - BMI >40 Plan Patient remains on a ventilator requiring continuous sedation. Oxygenation borderline on 40% FiO2-oxygen flow increased to 60% by pulmonary earlier today. Continue triple antibiotics (cefepime, Levaquin, vancomycin) pending sputum culture due to extensive pneumonia on CT/chest x-ray yesterday-not present on initial films. Peak troponin 3.09 with diffuse T-wave changes; discussed with Dr. Govea and will require cardiac catheterization in the future. Continue heparin drip. Blood pressure is uncontrolled-clonidine patch initiated earlier, IV hydralazine added as needed for systolic pressures above 180. OG placed-resume statin, SSRI, atenolol, and aspirin. Assess gastric residuals today-anticipate beginning tube feedings tomorrow. Adequate urine output, continue to monitor. Blood sugars remain elevated, off metformin at present. Increase basal insulin. Remains critically ill- [id number], [id number]. DVT Prophylaxis: Heparin drip GI Prophylaxis: Protonix Resuscitation Status: Full Code - Physician Narrative Narrative: Date: 05/22/17 Time: 1021 Hospital Course Summary Disclaimer: The visit summary below is not to be considered part of the above Progress Note. Hospital Course: 05/17/17 Admission Admit to observation status under the care of Dr. Lopez. Sepsis work up initiated in ED. Patient meeting SIRS criteria based on tachycardia, tachypnea and reported fevers at home without obvious source. Initial lactate was 1.4 with repeat lactate decreased to 0.9. Blood cultures pending. WBC stable at 5.0. CXR revealed left basilar scarring without focal pneumonia. Respiratory panel was negative. Patient was given DuoNeb treatments and Solu-Medrol 125mg IV in ED. Will continue respiratory care with DuoNeb treatments QID and Q6H PRN as well as Solu -Medrol 125mg IV Q6H. History of diabetes with A1c on 04/17/17 at 6.4%. Continue home medications and monitor blood sugars closely given treatment with steroids. Sliding scale insulin as indicated for hyperglycemia. Patient was placed on BiPAP in ED with improvement. Continue BiPAP as indicated. Ativan as needed for anxiety and agitation while on BiPAP. Will monitor closely on telemetry with continuous pulse oximetry. Oxygen as needed to maintain SAO2 between 90-95%, weaning as able to baseline of 5L. SCDs for DVT prophylaxis. Given sudden onset of dyspnea, will obtain CT angio chest for further evaluation of PE - results pending. NS at 100cc/hr for hydration given decreased oral intake as on BiPAP. Monitor daily weight closely for signs of fluid overload. Recheck labs in AM to monitor blood counts, electrolytes and renal function. Patient wishes to maintain FULL CODE status. Upon discharge, patient's care will be returned to his PCP, Dr. Odom. 05/18/17 Don reports that his breathing is a little better today and is he is more alert. New cough with sputum production. 1 of the 2 blood cultures obtained on admission is POSITIVE for Streptococcus. Night telehospitalist was notified and Rocephin 2g IV Q24 hours was initiated for antimicrobial coverage. Given new cough, will try and obtain a sputum culture. Mucinex for mucolytic effect. Ricola for cough. Continue respiratory care including nebulized treatments. Continue to encourage BiPAP as indicated and supplemental oxygen to maintain SAO2 between 90 -95%. Wean oxygen to baseline of 5L as able. Given sudden onset of dyspnea, CT angio chest was obtained and revealed no PE but did note 2.2cm left lower lobe pulmonary nodule raising concern for primary lung malignancy and recommended further evaluation. Will discuss consideration of pulmonary consult for further evaluation. Continue Solu-Medrol 125mg IV Q6 hours. Anticipate initiation of tapering in near future. Blood sugars remain elevated, most likely steroid effect, ranging from 160's-> 200. Continue sliding scale insulin. Given recent CT with contrast, will hold metformin and restart 05/19/17. Continue NS at 75cc/hr for hydration. Monitor urinary output and daily weight closely for signs of fluid over load. Oral intake is good. Consider discontinuation of fluids this afternoon. Ativan as needed for anxiety and agitation while on BiPAP. Troponins continue to trend up slowing - 0.015, 0.017, 0.029, 0.045 and 0.048 this morning. Will recheck troponin at 1030 and continue to monitor closely on telemetry. Patient denies chest pain. SCDs for DVT prophylaxis. Recheck labs in AM to monitor blood counts, electrolytes and renal function. Discussed at length with patient and family the importance of smoking cessation. He admits to wanting to stop smoking and inquired about initiation of Chantix. Continue Wellbutrin for smoking cessation. With BC positive and starting IV antibiotics, will change admission status to inpatient. Anticipate greater than 2 midnights of care needed. 05/19/17 Continue with Rocephin for antimicrobial coverage. With lungs still very tight and congested, will continue with Solu-Medrol 125mg IV q 6 hours. Continue Neb treatments and acapella. Encourage use of BiPAP as much as able to help his chronic hypercapnea. Stressed with about the importance of him not smoking. She understand. Will consult with Dr Ashby for pulm evaluation. Will discontinue IVF. May restart metformin this evening. Sugars with elevation secondary to steroids. Did give Diamox 500mg x1 this am for fluid motivation and to help minimize contraction alkalosis. PT/OT to evaluate and initiate treatment tomorrow for his significant pulmonary debility. 05/20 Continue with Rocephin for antimicrobial coverage. One blood culture was positive with streptococcus Viridans, Repeat BC were drawn this morning. Scheduled breathing tx, IV solu-medrol, as well as oxygen and Bipap Appreciate Dr Ashby consultation. Likely require bronchoscopy for biopsy of lung mass. Continue to monitor BGM remain elevated. Metformin was resumed as well as sliding scale insulin. Encourage PT/OT for strengthening 05/21 Resp failure --> ABG shows resp acidosis and he was placed on BiPAP with improvement in color. Repeat ABG shows pH 7.12, pCO2 106, pO2 185. CXR ordered. BG 230. Chest pain --> EKG shows ST changes and widened QRS, poss a-flutter; troponin pending. Dr. Govea consulted. He's had 2 NTG but remains very hypertensive with SBP 220s. Pt failed to respond to adenosine, and subseqently was cardioverted with conversion to sinus tach. Rapid response activated and Dr. Ramírez was at bedside x20 min. Transferred to CCU, where pt was met by Dr. Govea for evaluation. Continue treatment for resp status including steroids and triple antibiotics- cefepime, Levaquin, vancomycin. CTA negative for PE but reveals extensive lower lobe infiltrates. 05/22 Patient remains on a ventilator requiring continuous sedation. Oxygenation borderline on 40% FiO2-oxygen flow increased to 60% by pulmonary earlier today. Continue triple antibiotics (cefepime, Levaquin, vancomycin) pending sputum culture due to extensive pneumonia on CT/chest x-ray yesterday-not present on initial films. Peak troponin 3.09 with diffuse T-wave changes; discussed with Dr. Govea and will require cardiac catheterization in the future. Continue heparin drip. Blood pressure is uncontrolled-clonidine patch initiated earlier, IV hydralazine added as needed for systolic pressures above 180. OG placed-resume statin, SSRI, atenolol, and aspirin. Assess gastric residuals today-anticipate beginning tube feedings tomorrow. Adequate urine output, continue to monitor. Blood sugars remain elevated, off metformin at present. Increase basal insulin.
--- NOTE | 2017-05-22 10:38 | Pulmonology Progress Note ---
<SandraAriane D - Last Filed: 05/22/17 10:34> Subjective Principal diagnosis: chest pain Interval history: Pt currently sedated on the vent with fentanyl and precedex. Issues with HTN today per RN. No other issues, + sputum with suctioning. Exam Vital signs: Temperature 98.7 F 05/22/17 07:30 Pulse Rate 68 05/22/17 10:09 Respiratory Rate 18 05/22/17 09:33 Blood Pressure 202/87 H 05/22/17 10:09 Pulse Oximetry 95 05/22/17 09:33 - Constitutional no acute distress, morbidly obese Comments: sedated - Routine HEENT Exam Head: Present: normocephalic, atraumatic Eye: Present: PERRL ENT: Present: mucous membranes moist - Routine Neck Exam Present: supple, full ROM, trachea midline - Routine Respiratory Exam Present: patient mechanically ventilated, decreased breath sounds, wheezes - Routine Cardiovascular Exam Present: RRR, S1, S2, no murmur - Routine Abdominal Exam Present: soft, normoactive bowel sounds - Routine Extremities Exam Present: no edema, non tender, full ROM - Routine Back/Spine/Pelvis Exam Back/Spine: Present: full ROM - Routine Skin Exam Present: intact, dry - Routine Neurological Exam Present: normal reflexes sedated on vent - Routine Psychiatric Exam Present: unable to assess - Urinary Catheter Management Urethral Cath placed during this visit: yes Insertion date: 05/21/17 Assessment and Plan - Assessment and Plan Acute on Chronic Hypoxic Hypercapnic Respiratory Failure LLL mass 2.2 cm COPD exacerbation Chest Pain/Wide complex tachycardia s/p cardioversion Bacteremia + BC x 1 with strep, repeat NTD ANGELLA/OHS Morbid Obesity DM Plan: Pt. is currently on vent Ac/Vc f18, vt 550, peep 5, 40%, repeat ABG today 7.41/ 62/59. On pulmicort BID, A/A q4hr, solumedrol 80mg q6. + BC x 1 s/p rocephin. New CT 05/21 shows RLL pneumonia with slight LLL infiltrate, still with LLL mass noted. Afebrile and no leukocytosis, ? if pna aspiration as R>L, abx expanded to vanco, cefepime and levaquin. Sputum cx showing early growth GPC, GPR, GNR, follow cx, repeat BC negative. follow daily CXR, cont vent at this time. - Time Spent With Patient Total time spent is greater than 50% in coordination of care (as documented) at patient's floor/unit and/or counseling patient: less than 15 minutes <Donny Ashby - Last Filed: 05/23/17 13:12> Exam Vital signs: Temperature 99.3 F 05/23/17 04:00 Pulse Rate 73 05/23/17 10:27 Respiratory Rate 18 05/23/17 10:44 Blood Pressure 162/72 H 05/23/17 07:00 Pulse Oximetry 92 05/23/17 10:44 - Urinary Catheter Management Urethral Cath placed during this visit: no Assessment and Plan (1) Lung mass Status: Acute Current Visit: Yes (2) Acute exacerbation of chronic obstructive airways disease Status: Acute Current Visit: Yes (3) Acute and chronic respiratory failure with hypercapnia Status: Acute Current Visit: Yes - Time Spent With Patient Total time spent is greater than 50% in coordination of care (as documented) at patient's floor/unit and/or counseling patient: - Attestation Attestation Narrative: I have reviewed the pertinent data and agree with the notes written by the BORDERE[facility] CLERK
[2017-05-22] MEDS: ASPIRIN 81 MG CHEWABLE TABLET PO SCH ×2 (11:17→18:04)
--- NOTE | 2017-05-22 11:35 | XRay Report ---
Indication: resp failure PROCEDURE: XR chest 1V: Encounter: Initial Comparison: May 21, 2017 Findings: Endotracheal tube remains in stable position. New nasogastric tube extending below the diaphragm, the tip is not fully included on this study. Diffuse interstitial prominence is again noted throughout both lungs with more focal areas of consolidation in both lower lobes. Small pleural effusions. No pneumothorax. Heart size and mediastinal contours are stable. Impression: New nasogastric tube, otherwise stable chest. .
--- NOTE | 2017-05-22 12:24 | Pharmacy Consult ---
Pharmacy Consult-Heparin - Laboratory Information Heparin Plt Count 178 T/MM3 (130-400) 05/22/17 02:23 APTT 53.6 SEC (24-36) H 05/22/17 11:51 - Consult Information HEPARIN CONSULT (Recurring): PTT = 53.6 Sec. Will continue Heparin Drip at 1640 units/hr (41 ml/hr). Will recheck PTT at 1800 and adjust regimen as needed. Thank you.
[2017-05-22] MEDS: HYDRALAZINE 20 MG/ML INJECTION IVP PRN ×2 (15:48→19:45)
[2017-05-22] MEDS: ASPIRIN 81 MG CHEWABLE TABLET GT SCH (18:11)
--- NOTE | 2017-05-22 18:32 | Pharmacy Consult ---
Pharmacy Consult-Heparin - Laboratory Information Heparin Plt Count 178 T/MM3 (130-400) 05/22/17 02:23 APTT 52.6 SEC (24-36) H 05/22/17 18:01 - Consult Information HEPARIN CONSULT (Recurring): PTT = 52.6 Sec. Will continue Heparin Drip at 1640 units/hr (41 ml/hr). Will recheck PTT in the a.m. and adjust regimen as needed. Thank you.
[2017-05-22] MEDS: LEVOFLOXACIN PB 750 MG/150 ML BAG IV SCH (20:05)
[2017-05-22] MEDS: SIMVASTATIN 20 MG TABLET PO SCH (20:06)
[2017-05-22] MEDS ORDERED: INSULIN GLARGINE 100unit/ml INJECTION SQ SCH (21:00)
[2017-05-23] MEDS: HYDRALAZINE 20 MG/ML INJECTION IVP PRN ×2 (00:02→03:34)
[2017-05-23] MEDS: ALBUTEROL/IPRATROPIUM 2.5mg-0.5mg/3ml NEB AEROSOL SCH ×6 (02:57→23:11)
[2017-05-23] MEDS: METHYLPREDNISOLONE SOD SUCC 125mg/2ml INJECTION IVP SCH ×4 (03:08→20:10)
[2017-05-23] MEDS: FentaNYL 1,000 MCG in NS 80 ML IV PRN ×4 (04:01→21:01)
[2017-05-23] MEDS: CEFEPIME 1 GM in NS 50 ML IV SCH ×4 (04:26→21:52)
[2017-05-23] MEDS: HEPARIN DRIP 20,000 UNIT/500 ML BAG IV SCH ×2 (04:57→16:34)
[2017-05-23] MEDS: NS IV PRN ×3 (04:58→22:59)
[2017-05-23] MEDS: DEXMEDETOMIDINE IV PRN ×3 (04:58→22:59)
[2017-05-23] MEDS: INSULIN ASPART 100unit/ml INJECTION SQ PRN ×4 (06:07→20:09)
[2017-05-23] MEDS: BUDESONIDE INH.SOLN 0.5mg/2ml NEB AEROSOL SCH ×2 (06:41→19:25)
--- NOTE | 2017-05-23 08:02 | Pharmacy Consult ---
Pharmacy Consult-Heparin - Laboratory Information Heparin Plt Count 172 T/MM3 (130-400) 05/23/17 04:10 APTT 48.4 SEC (24-36) H 05/23/17 04:10 - Consult Information HEPARIN CONSULT (Recurring): PTT = 48.4 Sec. Will adjust Heparin Drip to 1760 units/hr (44 ml/hr). Will recheck PTT at noon and adjust regimen as needed. Thank you.
[2017-05-23] MEDS: MORPHINE SULFATE 4mg INJECTION IVP PRN ×2 (08:10→14:28)
[2017-05-23] MEDS: PANTOPRAZOLE 40 MG INJECTION IVP SCH (08:21)
[2017-05-23] MEDS: ATENOLOL 25 MG TABLET PO SCH (08:26)
[2017-05-23] MEDS: ASPIRIN 81 MG CHEWABLE TABLET PO SCH (08:26)
[2017-05-23] MEDS: ASPIRIN 81 MG CHEWABLE TABLET GT SCH (08:27)
[2017-05-23] MEDS: CITALOPRAM 40 MG TABLET PO SCH (09:13)
[2017-05-23] MEDS: POTASSIUM CHLORIDE PREMIX 10 MEQ/100 ML BAG IV SCH ×4 (10:55→16:29)
--- NOTE | 2017-05-23 12:55 | Pharmacy Consult ---
Pharmacy Consult-Heparin - Laboratory Information Heparin Plt Count 172 T/MM3 (130-400) 05/23/17 04:10 APTT 60.4 SEC (24-36) H 05/23/17 12:00 - Consult Information HEPARIN CONSULT (Recurring): PTT = 60.4 Sec. Will continue Heparin Drip to 1760 units/hr (44ml/hr). Will recheck PTT and adjust regimen as needed. Thank you.
--- NOTE | 2017-05-23 13:18 | Pulmonology Progress Note ---
Subjective Principal diagnosis: chest pain Interval history: remains sedated on the vent with fentanyl and precedex. Appears comfortable. on AC/VC+ Vt 550, FiO2 45%- 60%. Exam Vital signs: Temperature 99.3 F 05/23/17 04:00 Pulse Rate 73 05/23/17 10:27 Respiratory Rate 18 05/23/17 10:44 Blood Pressure 162/72 H 05/23/17 07:00 Pulse Oximetry 92 05/23/17 10:44 - Constitutional Comments: on mechanical ventilation no new issues on sedation - Routine HEENT Exam Head: Present: normocephalic, atraumatic - Routine Neck Exam Present: supple. Absent: JVD - Routine Respiratory Exam Present: decreased breath sounds. Absent: prolonged expiratory phase - Routine Cardiovascular Exam Present: RRR - Routine Abdominal Exam Present: soft - Routine Exam Comments: wiseman cath - Routine Extremities Exam Absent: cyanosis, clubbing - Routine Skin Exam Present: intact. Absent: rash - Routine Neurological Exam Present: alert. Absent: motor deficit - Urinary Catheter Management Urethral Cath placed during this visit: yes Insertion date: 05/21/17 Assessment and Plan (1) Acute exacerbation of chronic obstructive airways disease Status: Acute Assessment and plan: on bronchodilators, ICS. Iv corticosteroids Current Visit: Yes (2) Acute and chronic respiratory failure with hypercapnia Status: Acute Assessment and plan: Intubated on mechanical ventilation due to severe hypercapnia. still requiring 45-60% FiO2. Discussed with RT/Nursing. Not ready for SBT Current Visit: Yes (3) Pneumonia Status: Acute Assessment and plan: Likely aspiration related. Empiric Cefepime/Levaquin/Vanco Current Visit: Yes - Assessment and Plan Acute on Chronic Hypoxic Hypercapnic Respiratory Failure LLL mass 2.2 cm COPD exacerbation Chest Pain/Wide complex tachycardia s/p cardioversion Bacteremia + BC x 1 with strep, repeat NTD ANGELLA/OHS Morbid Obesity DM - Time Spent With Patient Total time spent is greater than 50% in coordination of care (as documented) at patient's floor/unit and/or counseling patient: 25 - 35 minutes
--- NOTE | 2017-05-23 13:25 | Cardiology Progress Note ---
<ValentineAndreina arreola - Last Filed: 05/24/17 16:03> Subjective Principal diagnosis: chest pain Interval history: Howard is seen in follow up for chest pain and NSTEMI. He is sedated on the ventilator. Exam Vital signs: Temperature 99.3 F 05/23/17 04:00 Pulse Rate 73 05/23/17 10:27 Respiratory Rate 18 05/23/17 10:44 Blood Pressure 162/72 H 05/23/17 07:00 Pulse Oximetry 92 05/23/17 10:44 - Constitutional morbidly obese - Routine HEENT Exam Head: Present: normocephalic ENT: Present: mucous membranes moist - Routine Neck Exam Absent: JVD, carotid bruit - Routine Respiratory Exam Present: decreased breath sounds, diminished air movement - Routine Cardiovascular Exam Present: RRR, no murmur - Routine Abdominal Exam Present: soft - Routine Extremities Exam Present: edema - Routine Skin Exam Present: intact, dry, warm - Additional findings Additional findings: Acetaminophen (Tylenol) 325 - 650 mg PO Q5H PRN PRN Reason: Discomfort Acetaminophen (Tylenol Supp) 650 mg [place] Q5H PRN PRN Reason: Pain Hydrocodone Bitart/Acetaminophen ([place] 7.5/325) 1 tab PO BID [facility] Last Admin: 05/21/17 10:54 Dose: Not Given Hydrocodone Bitart/Acetaminophen ([place] 7.5/325) 1 tab PO Q6H PRN PRN Reason: Pain Albuterol/Ipratropium (Duoneb) 3 ml AEROSOL RTQID PRN Albuterol/Ipratropium (Duoneb) 3 ml AEROSOL Q4H [facility] Last Admin: 05/23/17 10:26 Dose: 3 ml Aspirin (Asa) 81 mg PO DAILY [facility] Last Admin: 05/23/17 08:26 Dose: Not Given Aspirin (Asa) 81 mg GT DAILY [facility] Last Admin: 05/23/17 08:27 Dose: 81 mg Atenolol (Tenormin) 25 mg PO DAILY [facility] Last Admin: 05/23/17 08:26 Dose: 25 mg Benzocaine (Cepacol Sore Throat Lozenge) 1 lozenge MM Q2HR PRN PRN Reason: Sore throat Budesonide (Pulmicort Inhalation) 0.5 mg AEROSOL RTBID [facility] Last Admin: 05/23/17 06:41 Dose: 0.5 mg Bupropion HCl (Wellbutrin Sr) 150 mg PO BID [facility] Last Admin: 05/21/17 10:52 Dose: Not Given Citalopram Hydrobromide (Celexa) 40 mg PO DAILY [facility] Last Admin: 05/23/17 09:13 Dose: 40 mg Clonidine HCl (Catapres-Tts 1) 0.1 mg TD Q7D@0900 [facility] Last Admin: 05/22/17 09:51 Dose: 0.1 mg Clonidine HCl (Catapres Patch Removal) 1 removal TD Q7D [facility] Gabapentin (Neurontin) 300 mg PO TID [facility] Last Admin: 05/21/17 15:49 Dose: Not Given Glucose (Glutose 15) 37.5 gm PO PRN PRN PRN Reason: Hypoglycemia Guaifenesin (Mucinex La) 1,200 mg PO BID [facility] Last Admin: 05/21/17 10:53 Dose: Not Given Hydralazine HCl (Apresoline) 10 mg IVP Q4H PRN PRN Reason: Hypertension Last Admin: 05/23/17 03:34 Dose: 10 mg Heparin Sodium (Porcine) (Heparin Drip) 20,000 unit in 500 mls @ 44 mls/hr IV .[id number] [facility] PRN Reason: Protocol Last Titration: 05/23/17 09:00 Dose: 1,760 unit/hr, 44 mls/hr Fentanyl 1,000 mcg/ Sodium (Chloride) 100 mls @ 0 mls/hr IV .Q0M PRN; Per Protocol PRN Reason: Protocol Last Admin: 05/23/17 09:26 Dose: 20 mls/hr, 20 mls/hr Cefepime HCl 1 gm/ Sodium (Chloride) 50 mls @ 100 mls/hr IV Q6H [facility] Last Infusion: 05/23/17 09:00 Dose: Infused Levofloxacin/Dextrose (Levaquin Premix) 750 mg in 150 mls @ 100 mls/hr IV Q24H [facility] Last Infusion: 05/22/17 21:49 Dose: Infused Vancomycin HCl 1,500 mg/ (Sodium Chloride) 500 mls @ 250 mls/hr IV Q8H [facility] Last Admin: 05/23/17 09:16 Dose: 250 mls/hr Dexmedetomidine HCl 1,000 mcg/ (Sodium Chloride) 260 mls @ 6.87 mls/hr IV .Q24H PRN; 0.2 MCG/KG/HR PRN Reason: Protocol Last Titration: 05/23/17 09:00 Dose: 0.9 mcg/kg/hr, 30.95 mls/hr Potassium Chloride (Potassium Chloride Premix) 10 meq in 100 mls @ 100 mls/hr IV Q1H [facility] Stop: 05/23/17 13:44 Last Admin: 05/23/17 12:44 Dose: 100 mls/hr Insulin Aspart (Novolog) 2 - 14 unit SQ SS PRN; Protocol PRN Reason: Hyperglycemia Last Admin: 05/23/17 10:55 Dose: 4 unit Insulin Glargine (Lantus) 20 unit SQ HS [facility] Last Admin: 05/22/17 20:14 Dose: 20 unit Lorazepam (Ativan Inj) 0.5 mg IVP Q6H PRN Last Admin: 05/23/17 08:08 Dose: 0.5 mg Menthol (Ricola Sf) 1 lozenge MM PRN PRN PRN Reason: Cough Metformin HCl (Glucophage) 500 mg PO BIDWM [facility] Last Admin: 05/21/17 10:52 Dose: Not Given Methylprednisolone Sodium Succinate (Solu-Medrol) 80 mg IVP Q6HR [facility] Last Admin: 05/23/17 08:21 Dose: 80 mg Morphine Sulfate (Morphine Sulfate Inj) 1 - 2 mg IVP Q2H PRN PRN Reason: Pain Last Admin: 05/23/17 08:10 Dose: 2 mg Nitroglycerin (Nitrostat) 0.4 mg SL Q5MIN3 PRN PRN Reason: CP Last Admin: 05/21/17 08:35 Dose: 0.4 mg --Pom--(Itraconazole [Itraconazole] 200 Mg) 200 mg PO BID [facility] Last Admin: 05/21/17 10:56 Dose: Not Given Omeprazole (Prilosec) 40 mg PO ACB [facility] Last Admin: 05/21/17 06:27 Dose: 40 mg Ondansetron HCl (Zofran) 4 mg IVP Q6H PRN PRN Reason: Nausea &/or vomiting Last Admin: 05/19/17 02:45 Dose: 4 mg Pantoprazole Sodium (Protonix Iv) 40 mg IVP DAILY [facility] Last Admin: 05/23/17 08:21 Dose: 40 mg Simvastatin (Zocor) 20 mg PO HS [facility] Last Admin: 05/22/17 20:06 Dose: 20 mg Sodium Chloride (Iv Flush) 10 - 80 ml IVF PRN PRN PRN Reason: Flushing Last Admin: 05/21/17 09:27 Dose: 30 ml Sodium Chloride (Deep Sea Nasal Moisturizing [place]) 1 spray EA NOSTRIL PRN PRN PRN Reason: Congestion Last Admin: 05/19/17 16:37 Dose: 1 spray - Urinary Catheter Management Urethral Cath placed during this visit: yes Insertion date: 05/21/17 Results 05/24/17 04:20 05/24/17 04:20 Cardiac Enzymes 05/23/17 Range/Units 04:10 Troponin I 0.715 H D (0-0.12) ng/ml Coagulation 05/22/17 05/23/17 05/23/17 Range/Units 18:01 04:10 12:00 APTT 52.6 H 48.4 H 60.4 H (24-36) SEC CBC 05/23/17 Range/Units 04:10 WBC 9.7 (4.5-11.0) T/MM3 RBC 4.15 L (4.50-5.90) M/MM3 Hgb 12.5 L (13.5-17.5) GM/DL Hct 40.4 L (41-53) % Plt Count 172 (130-400) T/MM3 Neut # (Auto) Not performed Lymph # (Auto) Not performed [place] # (Auto) Not performed Eos # (Auto) Not performed Baso # (Auto) Not performed Comprehensive Metabolic Panel 05/23/17 Range/Units 04:10 Sodium 143 (134-144) MEQ/L Potassium 3.4 L (3.6-5) MEQ/L Chloride 96 L (98-107) MEQ/L Carbon Dioxide 37 H (22-30) MEQ/L BUN 30.0 H (9-20) MG/DL Creatinine 0.8 D (0.8-1.5) MG/DL Glucose 240 H (75-110) MG/DL Calcium 7.6 L (8.4-10.2) MG/DL Albumin 2.9 L (3.5-5.0) G/DL Intake and Output 02/05/23/17 05/23/17 22:59 06:59 14:59 Intake Total 1776.533 / 5491.898 5578.245 / 1185.245 416.317 / 416.317 Output Total 545 / 545 1040 / 1040 140 / 140 Balance 1231.533 / 1231.533 145.245 / 145.245 276.317 / 276.317 Intake: IV 1776.533 / 2570.120 9514.245 / 1185.245 416.317 / 416.317 Cefepime 1 gm In Ns 50 ml @ 100 100.000 / 100.000 50 / 50 50 / 50 mls/hr IV Q6H [facility] Rx#: [id number] Dexmedetomidine 1,000 mcg In NS 341.675 / 341.675 196.137 / 196.137 78.9 / 78.9 250ml 250 ml @ 0.2 MCG/KG/HR 6 .87 mls/hr IV .Q24H PRN Rx#: [id number] FentaNYL 1,000 mcg In Ns 80 ml 103.208 / 103.208 141.375 / 141.375 55.417 / 55.417 @ Per Protocol IV .Q0M PRN Rx#: [id number] Heparin Drip 20,000 unit In 500 581.650 / 581.650 297.733 / 297.733 132 / 132 ml @ 44 mls/hr IV .[id number] [facility] Rx#:[id number] Levofloxacin Pb 750 mg In 150 150.000 / 150.000 ml @ 100 mls/hr IV Q24H [facility] Rx# :[id number] Potassium Chloride Premix 10 100 / 100 meq In 100 ml @ 100 mls/hr IV Q1H [facility] Rx#:[id number] Vancomycin 1,500 mg In NS 500ml 500.0 / 500.0 500.000 / 500.000 500 ml @ 250 mls/hr IV Q8H [facility] Rx#:[id number] Output: Urine Amount (Catheter) 545 / 545 640 / 640 140 / 140 Gastric Drainage 400 / 400 Oral 400 / 400 Other: Urine Appearance Clear Clear Clear Urine Color Pale Pale Yellow Yellow Yellow Assessment and Plan - Assessment and Plan (1) Chest pain Current visit: Yes Status: Acute (2) Community acquired pneumonia Current visit: No Status: Acute (3) Acute and chronic respiratory failure with hypercapnia Current visit: Yes Status: Acute (4) Atherosclerotic heart disease of [place] coronary artery without angina pectoris Current visit: Yes Status: Chronic (5) Essential (primary) hypertension Current visit: Yes Status: Chronic (6) Type 2 diabetes mellitus without complications Current visit: Yes Status: Chronic (7) Obesity (BMI 30-39.9) Current visit: Yes Status: Chronic (8) ANGELLA (obstructive sleep apnea) Current visit: Yes Status: Chronic (9) NSTEMI (non-ST elevated myocardial infarction) Current visit: Yes Status: Acute - Assessment and Plan 05/21/17 Reportedly had severe chest pain, was johnson and diaphoretic as well as tachypneic followed by decreased LOC. - HR 140s, sinus tach vs. A flutter - Given Adenosine 6mg IVP, followed by 12mg X2 without slowing HR. - Sedation given and attempted DCCV which was unsuccessful. - Following 2nd dose of Metoprolol 5mg IV heart rate slowed enough to confirm it is Sinus tachycardia. - Repeat EKG obtained, started on Heparin drip. - Trend Troponin - 2D echo - CTA for emboli/ dissection 05/22/17 NSTEMI: - Troponin: 1) 0.015, 2) 1.500, 3) 3.090, 4) 2.100 - EKG: SR, anterolateral ischemia V3-V6, inferior ischemia II/aVf - Left heart cath when more stable - Continue Heparin drip. HTN: Catapress TTS 1 patch while NPO - Hydralazine prn as ordered - Labetalol prn, hold HR <65 05/23/17 BP improving - EKG now please Thank you for allowing us to participate in the care of this patient, we will follow along with you. Hospital Course Summary Disclaimer: The visit summary below is not to be considered part of the above Progress Note. Hospital Course: 05/17/17 Admission Admit to observation status under the care of Dr. Lopez. Sepsis work up initiated in ED. Patient meeting SIRS criteria based on tachycardia, tachypnea and reported fevers at home without obvious source. Initial lactate was 1.4 with repeat lactate decreased to 0.9. Blood cultures pending. WBC stable at 5.0. CXR revealed left basilar scarring without focal pneumonia. Respiratory panel was negative. Patient was given DuoNeb treatments and Solu-Medrol 125mg IV in ED. Will continue respiratory care with DuoNeb treatments QID and Q6H PRN as well as Solu -Medrol 125mg IV Q6H. History of diabetes with A1c on 04/17/17 at 6.4%. Continue home medications and monitor blood sugars closely given treatment with steroids. Sliding scale insulin as indicated for hyperglycemia. Patient was placed on BiPAP in ED with improvement. Continue BiPAP as indicated. Ativan as needed for anxiety and agitation while on BiPAP. Will monitor closely on telemetry with continuous pulse oximetry. Oxygen as needed to maintain SAO2 between 90-95%, weaning as able to baseline of 5L. SCDs for DVT prophylaxis. Given sudden onset of dyspnea, will obtain CT angio chest for further evaluation of PE - results pending. NS at 100cc/hr for hydration given decreased oral intake as on BiPAP. Monitor daily weight closely for signs of fluid overload. Recheck labs in AM to monitor blood counts, electrolytes and renal function. Patient wishes to maintain FULL CODE status. Upon discharge, patient's care will be returned to his PCP, Dr. Odom. 05/18/17 Don reports that his breathing is a little better today and is he is more alert. New cough with sputum production. 1 of the 2 blood cultures obtained on admission is POSITIVE for Streptococcus. Night telehospitalist was notified and Rocephin 2g IV Q24 hours was initiated for antimicrobial coverage. Given new cough, will try and obtain a sputum culture. Mucinex for mucolytic effect. Ricola for cough. Continue respiratory care including nebulized treatments. Continue to encourage BiPAP as indicated and supplemental oxygen to maintain SAO2 between 90 -95%. Wean oxygen to baseline of 5L as able. Given sudden onset of dyspnea, CT angio chest was obtained and revealed no PE but did note 2.2cm left lower lobe pulmonary nodule raising concern for primary lung malignancy and recommended further evaluation. Will discuss consideration of pulmonary consult for further evaluation. Continue Solu-Medrol 125mg IV Q6 hours. Anticipate initiation of tapering in near future. Blood sugars remain elevated, most likely steroid effect, ranging from 160's-> 200. Continue sliding scale insulin. Given recent CT with contrast, will hold metformin and restart 05/19/17. Continue NS at 75cc/hr for hydration. Monitor urinary output and daily weight closely for signs of fluid over load. Oral intake is good. Consider discontinuation of fluids this afternoon. Ativan as needed for anxiety and agitation while on BiPAP. Troponins continue to trend up slowing - 0.015, 0.017, 0.029, 0.045 and 0.048 this morning. Will recheck troponin at 1030 and continue to monitor closely on telemetry. Patient denies chest pain. SCDs for DVT prophylaxis. Recheck labs in AM to monitor blood counts, electrolytes and renal function. Discussed at length with patient and family the importance of smoking cessation. He admits to wanting to stop smoking and inquired about initiation of Chantix. Continue Wellbutrin for smoking cessation. With BC positive and starting IV antibiotics, will change admission status to inpatient. Anticipate greater than 2 midnights of care needed. 05/19/17 Continue with Rocephin for antimicrobial coverage. With lungs still very tight and congested, will continue with Solu-Medrol 125mg IV q 6 hours. Continue Neb treatments and acapella. Encourage use of BiPAP as much as able to help his chronic hypercapnea. Stressed with about the importance of him not smoking. She understand. Will consult with Dr Ashby for pulm evaluation. Will discontinue IVF. May restart metformin this evening. Sugars with elevation secondary to steroids. Did give Diamox 500mg x1 this am for fluid motivation and to help minimize contraction alkalosis. PT/OT to evaluate and initiate treatment tomorrow for his significant pulmonary debility. 05/20 Continue with Rocephin for antimicrobial coverage. One blood culture was positive with streptococcus Viridans, Repeat BC were drawn this morning. Scheduled breathing tx, IV solu-medrol, as well as oxygen and Bipap Appreciate Dr Ashby consultation. Likely require bronchoscopy for biopsy of lung mass. Continue to monitor BGM remain elevated. Metformin was resumed as well as sliding scale insulin. Encourage PT/OT for strengthening 05/21 Resp failure --> ABG shows resp acidosis and he was placed on BiPAP with improvement in color. Repeat ABG shows pH 7.12, pCO2 106, pO2 185. CXR ordered. BG 230. Chest pain --> EKG shows ST changes and widened QRS, poss a-flutter; troponin pending. Dr. Govea consulted. He's had 2 NTG but remains very hypertensive with SBP 220s. Pt failed to respond to adenosine, and subseqently was cardioverted with conversion to sinus tach. Rapid response activated and Dr. Ramírez was at bedside x20 min. Transferred to CCU, where pt was met by Dr. Govea for evaluation. Continue treatment for resp status including steroids and Rocephin. <Francis Govea - Last Filed: 05/27/17 10:36> Exam Vital signs: Temperature 101.4 F H 05/27/17 08:00 Pulse Rate 75 05/27/17 09:30 Respiratory Rate 16 05/27/17 09:30 Blood Pressure 141/67 H 05/27/17 09:00 Pulse Oximetry 97 05/27/17 09:30 - Urinary Catheter Management Urethral Cath placed during this visit: no Results 05/27/17 03:54 05/27/17 03:55 CBC 05/27/17 Range/Units 03:54 WBC 11.4 H (4.5-11.0) T/MM3 RBC 4.16 L (4.50-5.90) M/MM3 Hgb 12.4 L (13.5-17.5) GM/DL Hct 41.4 (41-53) % Plt Count 90 L (130-400) T/MM3 Neut # (Auto) Not performed Lymph # (Auto) Not performed [place] # (Auto) Not performed Eos # (Auto) Not performed Baso # (Auto) Not performed Comprehensive Metabolic Panel 05/27/17 Range/Units 03:55 Sodium 144 (134-144) MEQ/L Potassium 4.5 (3.6-5) MEQ/L Chloride 103 (98-107) MEQ/L Carbon Dioxide 36 H (22-30) MEQ/L BUN 37.0 H (9-20) MG/DL Creatinine 0.7 L (0.8-1.5) MG/DL Glucose 348 H (75-110) MG/DL Calcium 7.5 L (8.4-10.2) MG/DL Intake and Output 05/26/17 05/27/17 05/27/17 22:59 06:59 14:59 Intake Total 2528.160 / 2528.160 1514.590 / 1514.590 516.183 / 516.183 Output Total 1730 / 1730 1974 / 1974 525 / 525 Balance 798.160 / 798.160 -460.410 / -460.410 -8.817 / -8.817 Intake: IV 1688.160 / 1688.160 714.590 / 714.590 96.183 / 96.183 Bivalirudin 250 mg In NS 500ml 718.16 / 718.16 303.84 / 303.84 43.2 / 43.2 500 ml @ 43.2 mls/hr IV . [id number] [facility] Rx#:[id number] Cefepime 1 gm In Ns 50 ml @ 100 100.000 / 100.000 50.000 / 50.000 mls/hr IV Q6H [facility] Rx#: [id number] Dexmedetomidine 1,000 mcg In NS 520.00 / 520.00 260.000 / 260.000 37.983 / 37.983 250ml 250 ml @ 0.2 MCG/KG/HR 6 .87 mls/hr IV .Q24H PRN Rx#: [id number] FentaNYL 1,000 mcg In Ns 80 ml 200 / 200 100.750 / 100.750 15 / 15 @ Per Protocol IV .Q0M PRN Rx#: [id number] Levofloxacin Pb 750 mg In 150 150 / 150 ml @ 100 mls/hr IV Q24H [facility] Rx# :[id number] Tube Feeding 640 / 640 640 / 640 320 / 320 Oral 640 / 640 640 / 640 320 / 320 Intake, Gastric Tube Irrigant 200 / 200 160 / 160 100 / 100 Amount Oral 200 / 200 160 / 160 100 / 100 Output: Urine Amount (Catheter) 1730 / 1730 1974 / 1974 525 / 525 Other: Urine Appearance Clear Clear Clear Urine Color Yellow Yellow Yellow Weight 142.1 kg Patient Weight 05/28/17 06:59 Weight 142.1 kg Assessment and Plan - Assessment and Plan (1) Community acquired pneumonia Current visit: No Status: Acute (2) Acute and chronic respiratory failure with hypercapnia Current visit: Yes Status: Acute (3) Chest pain Current visit: Yes Status: Acute (4) Atherosclerotic heart disease of [place] coronary artery without angina pectoris Current visit: Yes Status: Chronic (5) Essential (primary) hypertension Current visit: Yes Status: Chronic (6) Type 2 diabetes mellitus without complications Current visit: Yes Status: Chronic (7) Obesity (BMI 30-39.9) Current visit: Yes Status: Chronic (8) ANGELLA (obstructive sleep apnea) Current visit: Yes Status: Chronic (9) NSTEMI (non-ST elevated myocardial infarction) Current visit: Yes Status: Acute - Attestation Attestation Narrative: 05/27/17 10:36 Recommendation After examining the patient I agree with the above assessment. I am involved in the formulation of the patient's plan of care. Hospital Course Summary Disclaimer: The visit summary below is not to be considered part of the above Progress Note.
--- NOTE | 2017-05-23 17:22 | Progress Note ---
- Date 05/23/17 Subjective: Mr. Moreno remains intubated and sedated. Nursing reports frothy sputum is being suctioned from the ET occasionally and that oxygen saturation drops with movement in conjunction with heart rate jumping into the 150s. Blood pressure is improved today and urine output remains good. FiO2 was decreased to 45% overnight but was increased back to 50% due to borderline saturations when patient is more active. was not present provide supplemental history today. Objective Vital signs: Temperature 98.2 F 05/23/17 11:00 Pulse Rate 76 05/23/17 16:00 Respiratory Rate 20 05/23/17 15:51 Blood Pressure 156/70 H 05/23/17 15:45 Pulse Oximetry 95 05/23/17 15:51 I/O 3703/2245 Weight up 5.4 kg over 3 days Sedated, pupils 1 mm, conjugate gaze Over breathes ventilator occasionally Respirations nonlabored with good airflow anteriorly, diminished breath sounds bilateral bases Regular rhythm, S1-S2 Abdomen obese, soft, nontender, diminished bowel sounds No edema at the ankles; stasis changes present Does not withdraw to palpation of extremities currently Rhythm: Normal Sinus Rhythm Height/Weight/BMI: Height 1.85 m Weight 140.2 kg Body Mass Index 39.7 Results - Labs CBC & Chem 7: 05/23/17 04:10 05/23/17 04:10 Labs: S83 B4 L7 M1 Meta3 Myelo 2 PTT 60.4 Phosphorus 2.6, magnesium 2.4 Troponin 0.715 Microbiology Results: 05/21/17 13:45 Sputum, Expectorated Gram Stain - Final 05/21/17 13:45 Sputum, Expectorated Sputum Culture -normal charly Normal Respiratory Charly 05/20/17 04:36 Midline Blood Culture - Preliminary No Growth After 3 Days 05/20/17 04:36 Midline Blood Culture - Preliminary No Growth After 3 Days - ABG Interpretation Attestation: I reviewed and interpreted this ABG. ABG results: 05/22/17 05/23/17 10:28 08:43 ABG pH 7.410 7.350 ABG pCO2 62 H* 69 H* ABG pO2 59 L 66 L ABG HCO3 39.3 H 38.1 H ABG Total CO2 41.2 H 40.2 H ABG O2 Saturation 90.0 L 92.0 L ABG Base Excess 12.2 H 9.9 H Interpretation: respiratory acidosis (compensated, hypoxia) - ECG Data Tracing #2 I reviewed this ECG and interpreted as documented below: (sinus rhythm with diffuse anterolateral T-wave inversion) Assessment and Plan (1) Acute and chronic respiratory failure with hypercapnia Current visit: Yes Status: Acute (2) Acute exacerbation of chronic obstructive airways disease Current visit: Yes Status: Acute (3) NSTEMI (non-ST elevated myocardial infarction) Current visit: Yes Status: Acute Assessment and Plan: Assessment Acute on chronic respiratory failure with hypercapnia and hypoxia - baseline home oxygen at 5L; intubated 05/21. Wide complex tachycardia; s/p cardioversion with return to sinus tach NSTEMI-peak troponin 3.09, diffuse T changes COPD exacerbation. Bilateral lower lobe pneumonia-05/21/17 Bacteremia secondary to streptococcus viridans (1 of 2 BC from admission positive) Hypokalemia-05/23/17 Pulmonary nodule - Irregular 2.2cm left lower lobe pulmonary nodule Anemia, unspecified, stable Coronary Artery Disease Hypertension Sleep Apnea Diabetes Mellitus Type 2 - A1c on 04/17/17 was 6.4% GERD Osteoarthritis Peripheral neuropathy Fibromyalgia Depression Tobacco dependency Peripheral vascular disease Morbid obesity - BMI >40 Plan Patient remains on a ventilator requiring continuous sedation. Continue triple antibiotics (cefepime, Levaquin, vancomycin); suspect aspiration pneumonia-sputum culture normal charly. Extensive infiltrates on CT chest. Repeat chest x-ray in a.m. Fluid balance positive-roughly 5 L over several days, weight up-diuresis today. Potassium supplemented IV earlier today. Peak troponin 3.09 with diffuse T-wave changes; discussed with Dr. Govea and will require cardiac catheterization in the future. Continue heparin drip. Blood pressure remains elevated but improved from yesterday with addition of clonidine patch and resumption of atenolol per OG. IV hydralazine available as needed for systolic pressures above 180. OG placed 05/22-low volume gastric output overnight and tolerating medications per OG. Will initiate tube feedings with low glycemic formula at 20 mL per hour overnight. Nutrition consult. Blood sugars remain elevated, off metformin at present and on steroids. Increase basal insulin to 40 units anticipating further increase in blood sugar with initiation of tube feedings. Discussed with nursing staff. Patient remains critically ill requiring aggressive care for support. 35 minutes spent in care today. DVT Prophylaxis: SCD's, Heparin drip GI Prophylaxis: Protonix Resuscitation Status: Full Code - Physician Narrative Narrative: Date: 05/23/17 Time: 1717 Hospital Course Summary Disclaimer: The visit summary below is not to be considered part of the above Progress Note. Hospital Course: 05/17/17 Admission Admit to observation status under the care of Dr. Lopez. Sepsis work up initiated in ED. Patient meeting SIRS criteria based on tachycardia, tachypnea and reported fevers at home without obvious source. Initial lactate was 1.4 with repeat lactate decreased to 0.9. Blood cultures pending. WBC stable at 5.0. CXR revealed left basilar scarring without focal pneumonia. Respiratory panel was negative. Patient was given DuoNeb treatments and Solu-Medrol 125mg IV in ED. Will continue respiratory care with DuoNeb treatments QID and Q6H PRN as well as Solu -Medrol 125mg IV Q6H. History of diabetes with A1c on 04/17/17 at 6.4%. Continue home medications and monitor blood sugars closely given treatment with steroids. Sliding scale insulin as indicated for hyperglycemia. Patient was placed on BiPAP in ED with improvement. Continue BiPAP as indicated. Ativan as needed for anxiety and agitation while on BiPAP. Will monitor closely on telemetry with continuous pulse oximetry. Oxygen as needed to maintain SAO2 between 90-95%, weaning as able to baseline of 5L. SCDs for DVT prophylaxis. Given sudden onset of dyspnea, will obtain CT angio chest for further evaluation of PE - results pending. NS at 100cc/hr for hydration given decreased oral intake as on BiPAP. Monitor daily weight closely for signs of fluid overload. Recheck labs in AM to monitor blood counts, electrolytes and renal function. Patient wishes to maintain FULL CODE status. Upon discharge, patient's care will be returned to his PCP, Dr. Odom. 05/18/17 Don reports that his breathing is a little better today and is he is more alert. New cough with sputum production. 1 of the 2 blood cultures obtained on admission is POSITIVE for Streptococcus. Night telehospitalist was notified and Rocephin 2g IV Q24 hours was initiated for antimicrobial coverage. Given new cough, will try and obtain a sputum culture. Mucinex for mucolytic effect. Ricola for cough. Continue respiratory care including nebulized treatments. Continue to encourage BiPAP as indicated and supplemental oxygen to maintain SAO2 between 90 -95%. Wean oxygen to baseline of 5L as able. Given sudden onset of dyspnea, CT angio chest was obtained and revealed no PE but did note 2.2cm left lower lobe pulmonary nodule raising concern for primary lung malignancy and recommended further evaluation. Will discuss consideration of pulmonary consult for further evaluation. Continue Solu-Medrol 125mg IV Q6 hours. Anticipate initiation of tapering in near future. Blood sugars remain elevated, most likely steroid effect, ranging from 160's-> 200. Continue sliding scale insulin. Given recent CT with contrast, will hold metformin and restart 05/19/17. Continue NS at 75cc/hr for hydration. Monitor urinary output and daily weight closely for signs of fluid over load. Oral intake is good. Consider discontinuation of fluids this afternoon. Ativan as needed for anxiety and agitation while on BiPAP. Troponins continue to trend up slowing - 0.015, 0.017, 0.029, 0.045 and 0.048 this morning. Will recheck troponin at 1030 and continue to monitor closely on telemetry. Patient denies chest pain. SCDs for DVT prophylaxis. Recheck labs in AM to monitor blood counts, electrolytes and renal function. Discussed at length with patient and family the importance of smoking cessation. He admits to wanting to stop smoking and inquired about initiation of Chantix. Continue Wellbutrin for smoking cessation. With BC positive and starting IV antibiotics, will change admission status to inpatient. Anticipate greater than 2 midnights of care needed. 05/19/17 Continue with Rocephin for antimicrobial coverage. With lungs still very tight and congested, will continue with Solu-Medrol 125mg IV q 6 hours. Continue Neb treatments and acapella. Encourage use of BiPAP as much as able to help his chronic hypercapnea. Stressed with about the importance of him not smoking. She understand. Will consult with Dr Ashby for pulm evaluation. Will discontinue IVF. May restart metformin this evening. Sugars with elevation secondary to steroids. Did give Diamox 500mg x1 this am for fluid motivation and to help minimize contraction alkalosis. PT/OT to evaluate and initiate treatment tomorrow for his significant pulmonary debility. 05/20 Continue with Rocephin for antimicrobial coverage. One blood culture was positive with streptococcus Viridans, Repeat BC were drawn this morning. Scheduled breathing tx, IV solu-medrol, as well as oxygen and Bipap Appreciate Dr Ashby consultation. Likely require bronchoscopy for biopsy of lung mass. Continue to monitor BGM remain elevated. Metformin was resumed as well as sliding scale insulin. Encourage PT/OT for strengthening 05/21 Resp failure --> ABG shows resp acidosis and he was placed on BiPAP with improvement in color. Repeat ABG shows pH 7.12, pCO2 106, pO2 185. CXR ordered. BG 230. Chest pain --> EKG shows ST changes and widened QRS, poss a-flutter; troponin pending. Dr. Govea consulted. He's had 2 NTG but remains very hypertensive with SBP 220s. Pt failed to respond to adenosine, and subseqently was cardioverted with conversion to sinus tach. Rapid response activated and Dr. Ramírez was at bedside x20 min. Transferred to CCU, where pt was met by Dr. Govea for evaluation. Continue treatment for resp status including steroids and Rocephin. 05/22 Patient remains on a ventilator requiring continuous sedation. Oxygenation borderline on 40% FiO2-oxygen flow increased to 60% by pulmonary earlier today. Continue triple antibiotics (cefepime, Levaquin, vancomycin) pending sputum culture due to extensive pneumonia on CT/chest x-ray yesterday-not present on initial films. Peak troponin 3.09 with diffuse T-wave changes; discussed with Dr. Govea and will require cardiac catheterization in the future. Continue heparin drip. Blood pressure is uncontrolled-clonidine patch initiated earlier, IV hydralazine added as needed for systolic pressures above 180. OG placed-resume statin, SSRI, atenolol, and aspirin. Assess gastric residuals today-anticipate beginning tube feedings tomorrow. Adequate urine output, continue to monitor. Blood sugars remain elevated, off metformin at present. Increase basal insulin. 05/23 Patient remains on a ventilator requiring continuous sedation. Continue triple antibiotics (cefepime, Levaquin, vancomycin); suspect aspiration pneumonia-sputum culture normal charly. Extensive infiltrates on CT chest. Repeat chest x-ray in a.m. Fluid balance positive-roughly 5 L over several days, weight up-diuresis today. Potassium supplemented IV earlier today. Peak troponin 3.09 with diffuse T-wave changes; discussed with Dr. Govea and will require cardiac catheterization in the future. Continue heparin drip. Blood pressure remains elevated but improved from yesterday with addition of clonidine patch and resumption of atenolol per OG. IV hydralazine available as needed for systolic pressures above 180. OG placed 05/22-low volume gastric output overnight and tolerating medications per OG. Will initiate tube feedings with low glycemic formula at 20 mL per hour overnight. Nutrition consult. Blood sugars remain elevated, off metformin at present and on steroids. Increase basal insulin to 40 units anticipating further increase in blood sugar with initiation of tube feedings.
[2017-05-23] MEDS: LEVOFLOXACIN PB 750 MG/150 ML BAG IV SCH (17:34)
--- NOTE | 2017-05-23 18:54 | Pharmacy Consult ---
Pharmacy Consult-Heparin - Laboratory Information Heparin Plt Count 172 T/MM3 (130-400) 05/23/17 04:10 APTT 59.9 SEC (24-36) H 05/23/17 18:17 - Consult Information HEPARIN CONSULT (Recurring): PTT = 59 Sec. Will continue Heparin Drip at 1,760 units/hr (44 ml/hr). Will recheck PTT and adjust regimen as needed. Thank you.
[2017-05-23] MEDS: METOCLOPRAMIDE 10mg/10ml ORAL LIQUID GT SCH ×2 (19:43→22:58)
[2017-05-23] MEDS: INSULIN GLARGINE 100unit/ml INJECTION SQ SCH (20:09)
[2017-05-23] MEDS: SIMVASTATIN 20 MG TABLET PO SCH (20:09)
[2017-05-23] MEDS: FUROSEMIDE 20 MG/2 ML INJECTION IVP SCH (20:10)
[2017-05-24] MEDS: INSULIN ASPART 100unit/ml INJECTION SQ PRN ×3 (00:01→12:12)
[2017-05-24] MEDS: HYDRALAZINE 20 MG/ML INJECTION IVP PRN ×3 (00:03→13:46)
[2017-05-24] MEDS: MORPHINE SULFATE 4mg INJECTION IVP PRN ×3 (01:37→17:56)
[2017-05-24] MEDS: ALBUTEROL/IPRATROPIUM 2.5mg-0.5mg/3ml NEB AEROSOL SCH ×6 (02:45→22:34)
[2017-05-24] MEDS: METHYLPREDNISOLONE SOD SUCC 125mg/2ml INJECTION IVP SCH ×3 (03:00→18:12)
[2017-05-24] MEDS: FentaNYL 1,000 MCG in NS 80 ML IV PRN ×5 (03:05→22:44)
[2017-05-24] MEDS: HEPARIN DRIP 20,000 UNIT/500 ML BAG IV SCH (04:03)
[2017-05-24] MEDS: CEFEPIME 1 GM in NS 50 ML IV SCH ×4 (04:21→21:45)
[2017-05-24] MEDS: METOCLOPRAMIDE 10mg/10ml ORAL LIQUID GT SCH ×3 (04:54→18:12)
[2017-05-24] MEDS: BUDESONIDE INH.SOLN 0.5mg/2ml NEB AEROSOL SCH ×2 (06:28→18:50)
[2017-05-24] MEDS: DEXMEDETOMIDINE IV PRN ×3 (06:45→21:16)
[2017-05-24] MEDS: NS IV PRN ×3 (06:45→21:16)
--- NOTE | 2017-05-24 07:35 | Pharmacy Consult ---
Pharmacy Consult-Heparin - Laboratory Information Heparin Plt Count 120 T/MM3 (130-400) L 05/24/17 04:20 APTT 54.8 SEC (24-36) H 05/24/17 04:20 - Consult Information HEPARIN CONSULT (Recurring): PTT = 54.8 Sec. Platelet count = 120 T/mm3. Will adjust Heparin Drip to 1,800 units/hr (45 ml/hr). Will recheck PTT and adjust regimen as needed. Thank you.
--- NOTE | 2017-05-24 08:29 | XRay Report ---
Indication: f/u infiltrates PROCEDURE: XR chest 1V: Encounter: Initial Comparison: March 21, 2018 Findings: Endotracheal and nasogastric tubes remain in place. Left PICC line. Aeration of the right lower lobe has slightly improved. Small pleural effusions remain. No new or worsening airspace disease. No pneumothorax. Heart size and mediastinal contours are stable. Impression: Improving right basilar infiltrate. .
[2017-05-24] MEDS: PANTOPRAZOLE 40 MG INJECTION IVP SCH (08:57)
[2017-05-24] MEDS: ASPIRIN 81 MG CHEWABLE TABLET GT SCH (08:58)
[2017-05-24] MEDS: ATENOLOL 25 MG TABLET PO SCH (08:58)
[2017-05-24] MEDS: CITALOPRAM 40 MG TABLET PO SCH (08:58)
[2017-05-24] MEDS: FUROSEMIDE 20 MG/2 ML INJECTION IVP SCH ×2 (08:59→18:11)
--- NOTE | 2017-05-24 09:01 | Pulmonology Progress Note ---
<SandraAriane D - Last Filed: 05/24/17 08:57> Subjective Principal diagnosis: chest pain Interval history: Pt continues to be sedated on the vent with fentanyl and precedex. On AC/VC+ Vt 550, FiO2 60%, no issues per staff. Exam Vital signs: Temperature 99.8 F 05/24/17 04:00 Pulse Rate 80 05/24/17 07:15 Respiratory Rate 18 05/24/17 07:15 Blood Pressure 183/75 H 05/24/17 07:15 Pulse Oximetry 93 05/24/17 07:15 - Constitutional no acute distress, morbidly obese Comments: sedated - Routine HEENT Exam Head: Present: normocephalic, atraumatic Eye: Present: EOMI, PERRL ENT: Present: mucous membranes moist - Routine Neck Exam Present: supple, full ROM - Routine Respiratory Exam Present: patient mechanically ventilated, decreased breath sounds, rhonchi. Absent: accessory muscle use - Routine Cardiovascular Exam Present: RRR, S1, S2, no murmur - Routine Abdominal Exam Present: soft, normoactive bowel sounds - Routine Extremities Exam Present: no edema, non tender, full ROM. Absent: cyanosis, clubbing - Routine Back/Spine/Pelvis Exam Back/Spine: Present: full ROM - Routine Skin Exam Present: intact, dry - Routine Neurological Exam Present: altered mental status sedated on vent - Routine Psychiatric Exam Present: unable to assess - Urinary Catheter Management Urethral Cath placed during this visit: yes Insertion date: 05/21/17 Assessment and Plan - Assessment and Plan Acute on Chronic Hypoxic Hypercapnic Respiratory Failure LLL mass 2.2 cm COPD exacerbation Chest Pain/Wide complex tachycardia s/p cardioversion Bacteremia + BC x 1 with strep, repeat NTD ANGELLA/OHS Morbid Obesity DM Plan Pt currently on the vent AC/VC+ F18, Vt 550, peep5, FiO2 60%, wean to keep sats 90-95%, currently 98%. Appears comfortable at this time. Continues on abx with cefepime, levaquin and vanco, ? aspiration pna, CXR with improving RLL infiltrates otherwise still with congestion noted. Sputum stain with + growth, cx NF with mod growth. Will need to wean Fio2 prior to SBT, cont to follow closely. Still on solumedrol 80mg q6hr, A/A q4, pulmicort BID, minimal wheezing , will change steroids to q8 - Time Spent With Patient Total time spent is greater than 50% in coordination of care (as documented) at patient's floor/unit and/or counseling patient: less than 15 minutes <Donny Ashby - Last Filed: 05/25/17 10:32> Exam Vital signs: Temperature 101.2 F H 05/25/17 07:44 Pulse Rate 68 05/25/17 10:07 Respiratory Rate 18 05/25/17 10:07 Blood Pressure 168/76 H 05/25/17 07:44 Pulse Oximetry 93 05/25/17 10:07 - Urinary Catheter Management Urethral Cath placed during this visit: no Assessment and Plan (1) Acute exacerbation of chronic obstructive airways disease Status: Acute Current Visit: Yes (2) Acute and chronic respiratory failure with hypercapnia Status: Acute Current Visit: Yes (3) Pneumonia Status: Acute Current Visit: Yes - Time Spent With Patient Total time spent is greater than 50% in coordination of care (as documented) at patient's floor/unit and/or counseling patient: - Attestation Attestation Narrative: I have reviewed all pertinent data and the notes written by the SENIOR [employer]DFUS[employer] DEVELOPER. I wale withe the above
[2017-05-24] MEDS ORDERED: ATENOLOL 25 MG TABLET PO ONE (09:40)
--- NOTE | 2017-05-24 11:00 | Pharmacy Consult-Antibiotics ---
Pharmacy Consult-Vancomycin - Laboratory Information WBC 7.5 T/MM3 (4.5-11.0) 05/24/17 04:20 BUN 24.0 MG/DL (9-20) H 05/24/17 04:20 Creatinine 0.7 MG/DL (0.8-1.5) L 05/24/17 04:20 Vancomycin Trough 18.47 UG/ML (15-20) 05/24/17 09:46 - Consult Information Vancomycin trough is in target range of 15-20 mcg/ml. Will continue same dose of vancomycin 1500mg IV q8h. Thank you.
[2017-05-24] MEDS: POTASSIUM CHLORIDE PREMIX 10 MEQ/100 ML BAG IV SCH ×5 (12:00→15:56)
[2017-05-24] MEDS: POTASSIUM CHLORIDE INJ 10 MEQ in NS 100 ML IV SCH ×4 (12:01→15:55)
[2017-05-24] MEDS ORDERED: BIVALIRUDIN 250 MG VIAL IV SCH (14:15)
[2017-05-24] MEDS: NS IV SCH (15:29)
[2017-05-24] MEDS: BIVALIRUDIN IV SCH (15:29)
--- NOTE | 2017-05-24 15:56 | Progress Note ---
- Date 05/24/17 Subjective: Mr. Moreno remains sedated on a ventilator. His reports that he typically sleeps during the day and is awake at night and she has noted he is more active at night while on the ventilator with increased arm flailing and agitation than during the day. He is tolerated G-tube feedings with minimal residuals per nursing. Oxygen concentration has fluctuated ranging between 45-60 % over the past 24 hours. No arrhythmias have been reported and with repositioning heart rate is not accelerating as it did yesterday. He's not had a bowel movement since transfer to the unit and urine output is up with initiation of diuretics. Elevated blood pressures have again required administration of IV hydralazine a number of times in the past 24 hours. Objective Vital signs: Temperature 99.2 F 05/24/17 08:00 Pulse Rate 71 05/24/17 15:00 Respiratory Rate 18 05/24/17 15:00 Blood Pressure 155/66 H 05/24/17 14:15 Pulse Oximetry 95 -50% 05/24/17 15:00 I/O 4113/4095 Sedated, some spontaneous movement in the extremities Pupils round, 1.5 mm bilaterally, conjugate gaze, conjunctiva clear, sclera anicteric Respirations nonlabored, decreased airflow throughout, breath sounds clear Regular rhythm, S1-S2 Abdomen soft, nontender, bowel sounds minimal, obese +1-2 bilateral upper extremity edema, no lower extremity edema, stasis changes bilateral lower extremities Withdraws all extremities briskly to stimulation Rhythm: Normal Sinus Rhythm Height/Weight/BMI: Height 1.85 m Weight 144.2 kg Body Mass Index 39.7 Results - Labs CBC & Chem 7: 05/24/17 04:20 05/24/17 04:20 Labs: S81 B4 L8 M4 Meta2 Myelo1 PTT 54.8 proBNP 7410 Microbiology Results: Microbiology 05/21/17 13:45 Sputum, Expectorated Gram Stain - Final 05/21/17 13:45 Sputum, Expectorated Sputum Culture - Final Yeast, not C. albicans Normal Respiratory Charly 05/20/17 04:36 Midline Blood Culture - Preliminary No Growth After 4 Days 05/20/17 04:36 Midline Blood Culture - Preliminary No Growth After 4 Days - ABG Interpretation ABG results: 05/23/17 08:43 ABG pH 7.350 ABG pCO2 69 H* ABG pO2 66 L ABG HCO3 38.1 H ABG Total CO2 40.2 H ABG O2 Saturation 92.0 L ABG Base Excess 9.9 H - Imaging and Cardiology Chest x-ray Status: image reviewed by me (ET tube OK, decreasing infiltrates, improved aeration) Assessment and Plan (1) Acute and chronic respiratory failure with hypercapnia Current visit: Yes Status: Acute (2) Acute exacerbation of chronic obstructive airways disease Current visit: Yes Status: Acute (3) NSTEMI (non-ST elevated myocardial infarction) Current visit: Yes Status: Acute Assessment and Plan: Assessment Acute on chronic respiratory failure with hypercapnia and hypoxia - baseline home oxygen at 5L; intubated 05/21. Wide complex tachycardia; s/p cardioversion with return to sinus tach NSTEMI-peak troponin 3.09, diffuse T changes Thrombocytopenia-05/24/17 COPD exacerbation Bilateral lower lobe pneumonia-05/21/17 Bacteremia secondary to streptococcus viridans (1 of 2 BC from 05/17/17 positive) Hypokalemia-05/23/17 Cardiomyopathy-EF 30% by echo 05/21/17 Pulmonary nodule - Irregular 2.2cm left lower lobe pulmonary nodule Anemia, unspecified, stable Coronary Artery Disease Hypertension Sleep Apnea Diabetes Mellitus Type 2 - A1c on 04/17/17 was 6.4% GERD Osteoarthritis Peripheral neuropathy Fibromyalgia Depression Tobacco dependency Peripheral vascular disease Morbid obesity - BMI >40 Plan Patient remains on a ventilator requiring continuous sedation. Sputum culture normal charly with yeast, evidence of radiographic improvement-- discontinue vancomycin as aspiration suspected. Continue cefepime/Levaquin at present for pneumonia and prior strep viridans positive blood culture. Steroid dose decreased slightly; continues to require ventilatory support. Diuresing with Lasix-continue, weight up significantly since transfer to ICU. Potassium supplemented IV earlier today. Peak troponin 3.09 with diffuse T-wave changes; will require cardiac catheterization in the future. Platelet count dropping on heparin drip from 231--> 120 today. HIT Ab ordered, heparin discontinued and bivalirudin initiated per cardiology. Blood pressure remains elevated-atenolol increased to 50 mg daily. Add lisinopril for dual blood pressure/renal protection and diabetic. IV hydralazine available as needed for systolic pressures above 180. OG placed 05/22-tolerating medications low-volume tube feedings. Dietary is recommended converting to pulmonary formula with goal rate 80 mL per hour. Blood sugars remain elevated, off metformin at present and on steroids. Increase basal insulin to 40 units anticipating further increase in blood sugar with initiation of tube feedings. Discussed with nursing staff, , pulmonary. Patient remains critically ill requiring aggressive care for support. 45 minutes spent in care today. - Physician Narrative Narrative: Date: 05/24/17 Time: 1551 Hospital Course Summary Disclaimer: The visit summary below is not to be considered part of the above Progress Note. Hospital Course: 05/17/17 Admission Admit to observation status under the care of Dr. Lopez. Sepsis work up initiated in ED. Patient meeting SIRS criteria based on tachycardia, tachypnea and reported fevers at home without obvious source. Initial lactate was 1.4 with repeat lactate decreased to 0.9. Blood cultures pending. WBC stable at 5.0. CXR revealed left basilar scarring without focal pneumonia. Respiratory panel was negative. Patient was given DuoNeb treatments and Solu-Medrol 125mg IV in ED. Will continue respiratory care with DuoNeb treatments QID and Q6H PRN as well as Solu -Medrol 125mg IV Q6H. History of diabetes with A1c on 04/17/17 at 6.4%. Continue home medications and monitor blood sugars closely given treatment with steroids. Sliding scale insulin as indicated for hyperglycemia. Patient was placed on BiPAP in ED with improvement. Continue BiPAP as indicated. Ativan as needed for anxiety and agitation while on BiPAP. Will monitor closely on telemetry with continuous pulse oximetry. Oxygen as needed to maintain SAO2 between 90-95%, weaning as able to baseline of 5L. SCDs for DVT prophylaxis. Given sudden onset of dyspnea, will obtain CT angio chest for further evaluation of PE - results pending. NS at 100cc/hr for hydration given decreased oral intake as on BiPAP. Monitor daily weight closely for signs of fluid overload. Recheck labs in AM to monitor blood counts, electrolytes and renal function. Patient wishes to maintain FULL CODE status. Upon discharge, patient's care will be returned to his PCP, Dr. Odom. 05/18/17 Don reports that his breathing is a little better today and is he is more alert. New cough with sputum production. 1 of the 2 blood cultures obtained on admission is POSITIVE for Streptococcus. Night telehospitalist was notified and Rocephin 2g IV Q24 hours was initiated for antimicrobial coverage. Given new cough, will try and obtain a sputum culture. Mucinex for mucolytic effect. Ricola for cough. Continue respiratory care including nebulized treatments. Continue to encourage BiPAP as indicated and supplemental oxygen to maintain SAO2 between 90 -95%. Wean oxygen to baseline of 5L as able. Given sudden onset of dyspnea, CT angio chest was obtained and revealed no PE but did note 2.2cm left lower lobe pulmonary nodule raising concern for primary lung malignancy and recommended further evaluation. Will discuss consideration of pulmonary consult for further evaluation. Continue Solu-Medrol 125mg IV Q6 hours. Anticipate initiation of tapering in near future. Blood sugars remain elevated, most likely steroid effect, ranging from 160's-> 200. Continue sliding scale insulin. Given recent CT with contrast, will hold metformin and restart 05/19/17. Continue NS at 75cc/hr for hydration. Monitor urinary output and daily weight closely for signs of fluid over load. Oral intake is good. Consider discontinuation of fluids this afternoon. Ativan as needed for anxiety and agitation while on BiPAP. Troponins continue to trend up slowing - 0.015, 0.017, 0.029, 0.045 and 0.048 this morning. Will recheck troponin at 1030 and continue to monitor closely on telemetry. Patient denies chest pain. SCDs for DVT prophylaxis. Recheck labs in AM to monitor blood counts, electrolytes and renal function. Discussed at length with patient and family the importance of smoking cessation. He admits to wanting to stop smoking and inquired about initiation of Chantix. Continue Wellbutrin for smoking cessation. With BC positive and starting IV antibiotics, will change admission status to inpatient. Anticipate greater than 2 midnights of care needed. 05/19/17 Continue with Rocephin for antimicrobial coverage. With lungs still very tight and congested, will continue with Solu-Medrol 125mg IV q 6 hours. Continue Neb treatments and acapella. Encourage use of BiPAP as much as able to help his chronic hypercapnea. Stressed with about the importance of him not smoking. She understand. Will consult with Dr Ashby for pulm evaluation. Will discontinue IVF. May restart metformin this evening. Sugars with elevation secondary to steroids. Did give Diamox 500mg x1 this am for fluid motivation and to help minimize contraction alkalosis. PT/OT to evaluate and initiate treatment tomorrow for his significant pulmonary debility. 05/20 Continue with Rocephin for antimicrobial coverage. One blood culture was positive with streptococcus Viridans, Repeat BC were drawn this morning. Scheduled breathing tx, IV solu-medrol, as well as oxygen and Bipap Appreciate Dr Ashby consultation. Likely require bronchoscopy for biopsy of lung mass. Continue to monitor BGM remain elevated. Metformin was resumed as well as sliding scale insulin. Encourage PT/OT for strengthening 05/21 Resp failure --> ABG shows resp acidosis and he was placed on BiPAP with improvement in color. Repeat ABG shows pH 7.12, pCO2 106, pO2 185. CXR ordered. BG 230. Chest pain --> EKG shows ST changes and widened QRS, poss a-flutter; troponin pending. Dr. Govea consulted. He's had 2 NTG but remains very hypertensive with SBP 220s. Pt failed to respond to adenosine, and subseqently was cardioverted with conversion to sinus tach. Rapid response activated and Dr. Ramírez was at bedside x20 min. Transferred to CCU, where pt was met by Dr. Govea for evaluation. Continue treatment for resp status including steroids and Rocephin. 05/22 Patient remains on a ventilator requiring continuous sedation. Oxygenation borderline on 40% FiO2-oxygen flow increased to 60% by pulmonary earlier today. Continue triple antibiotics (cefepime, Levaquin, vancomycin) pending sputum culture due to extensive pneumonia on CT/chest x-ray yesterday-not present on initial films. Peak troponin 3.09 with diffuse T-wave changes; discussed with Dr. Govea and will require cardiac catheterization in the future. Continue heparin drip. Blood pressure is uncontrolled-clonidine patch initiated earlier, IV hydralazine added as needed for systolic pressures above 180. OG placed-resume statin, SSRI, atenolol, and aspirin. Assess gastric residuals today-anticipate beginning tube feedings tomorrow. Adequate urine output, continue to monitor. Blood sugars remain elevated, off metformin at present. Increase basal insulin. 05/23 Patient remains on a ventilator requiring continuous sedation. Continue triple antibiotics (cefepime, Levaquin, vancomycin); suspect aspiration pneumonia-sputum culture normal charly. Extensive infiltrates on CT chest. Repeat chest x-ray in a.m. Fluid balance positive-roughly 5 L over several days, weight up-diuresis today. Potassium supplemented IV earlier today. Peak troponin 3.09 with diffuse T-wave changes; discussed with Dr. Govea and will require cardiac catheterization in the future. Continue heparin drip. Blood pressure remains elevated but improved from yesterday with addition of clonidine patch and resumption of atenolol per OG. IV hydralazine available as needed for systolic pressures above 180. OG placed 05/22-low volume gastric output overnight and tolerating medications per OG. Will initiate tube feedings with low glycemic formula at 20 mL per hour overnight. Nutrition consult. Blood sugars remain elevated, off metformin at present and on steroids. Increase basal insulin to 40 units anticipating further increase in blood sugar with initiation of tube feedings. 05/24 Remains ventilator dependent. Steroids decreased. Vancomycin discontinued, continue Levaquin and cefepime for probable aspiration pneumonia and Streptococcus viridans positive blood culture. Continue diuresis, blood pressures elevated-atenolol increased and lisinopril initiated to improve control. Tolerating tube feedings at low-volume, converted pulmonary formula with goal of 80 mL per hour. Platelet count dropping, heparin discontinued and bivalirudin initiated.
[2017-05-24] MEDS: AMLODIPINE 10 MG TABLET PO SCH (15:57)
--- NOTE | 2017-05-24 16:07 | Cardiology Progress Note ---
<Andreina Grijalva - Last Filed: 05/24/17 16:04> Subjective Principal diagnosis: chest pain Interval history: Howard is seen in follow up for chest pain and NSTEMI. He is sedated on the ventilator. His is at the bedside and states she is hopeful that he will stop smoking after this hospitalization. Exam Vital signs: Temperature 99.2 F 05/24/17 08:00 Pulse Rate 71 05/24/17 15:00 Respiratory Rate 18 05/24/17 15:00 Blood Pressure 155/66 H 05/24/17 14:15 Pulse Oximetry 95 05/24/17 15:00 - Constitutional no acute distress, obese - Routine HEENT Exam Head: Present: normocephalic - Routine Respiratory Exam Present: patient mechanically ventilated, diminished air movement - Routine Cardiovascular Exam Present: RRR, no murmur - Routine Abdominal Exam Present: soft - Routine Extremities Exam Present: edema - Routine Skin Exam Present: intact, dry, warm - Additional findings Additional findings: Acetaminophen (Tylenol) 325 - 650 mg PO Q5H PRN PRN Reason: Discomfort Acetaminophen (Tylenol Supp) 650 mg CO Q5H PRN PRN Reason: Pain Hydrocodone Bitart/Acetaminophen ([place] 7.5/325) 1 tab PO BID [facility] Last Admin: 05/21/17 10:54 Dose: Not Given Hydrocodone Bitart/Acetaminophen ([place] 7.5/325) 1 tab PO Q6H PRN PRN Reason: Pain Albuterol/Ipratropium (Duoneb) 3 ml AEROSOL RTQID PRN Albuterol/Ipratropium (Duoneb) 3 ml AEROSOL Q4H [facility] Last Admin: 05/24/17 14:50 Dose: 3 ml Amlodipine Besylate (Norvasc) 10 mg PO DAILY [facility] Last Admin: 05/24/17 15:57 Dose: 10 mg Aspirin (Asa) 81 mg GT DAILY [facility] Last Admin: 05/24/17 08:58 Dose: 81 mg Atenolol (Tenormin) 50 mg PO DAILY [facility] Benzocaine (Cepacol Sore Throat Lozenge) 1 lozenge MM Q2HR PRN PRN Reason: Sore throat Budesonide (Pulmicort Inhalation) 0.5 mg AEROSOL RTBID [facility] Last Admin: 05/24/17 06:28 Dose: 0.5 mg Bupropion HCl (Wellbutrin Sr) 150 mg PO BID [facility] Last Admin: 05/21/17 10:52 Dose: Not Given Citalopram Hydrobromide (Celexa) 40 mg PO DAILY [facility] Last Admin: 05/24/17 08:58 Dose: 40 mg Clonidine HCl (Catapres-Tts 1) 0.1 mg TD Q7D@0900 [facility] Last Admin: 05/22/17 09:51 Dose: 0.1 mg Clonidine HCl (Catapres Patch Removal) 1 removal TD Q7D [facility] Furosemide (Lasix) 20 mg IVP Q8HR [facility] Gabapentin (Neurontin) 300 mg PO TID [facility] Last Admin: 05/21/17 15:49 Dose: Not Given Glucose (Glutose 15) 37.5 gm PO PRN PRN PRN Reason: Hypoglycemia Guaifenesin (Mucinex La) 1,200 mg PO BID [facility] Last Admin: 05/21/17 10:53 Dose: Not Given Hydralazine HCl (Apresoline) 10 mg IVP Q4H PRN PRN Reason: Hypertension Last Admin: 05/24/17 13:46 Dose: 10 mg Fentanyl 1,000 mcg/ Sodium (Chloride) 100 mls @ 0 mls/hr IV .Q0M PRN; Per Protocol PRN Reason: Protocol Last Admin: 05/24/17 15:06 Dose: 20 mls/hr, 20 mls/hr Cefepime HCl 1 gm/ Sodium (Chloride) 50 mls @ 100 mls/hr IV Q6H [facility] Last Admin: 05/24/17 09:00 Dose: 100 mls/hr Levofloxacin/Dextrose (Levaquin Premix) 750 mg in 150 mls @ 100 mls/hr IV Q24H [facility] Last Infusion: 05/23/17 19:43 Dose: Infused Dexmedetomidine HCl 1,000 mcg/ (Sodium Chloride) 260 mls @ 6.87 mls/hr IV .Q24H PRN; 0.2 MCG/KG/HR PRN Reason: Protocol Last Admin: 05/24/17 14:42 Dose: 1 mcg/kg/hr, 34.39 mls/hr Bivalirudin 250 mg/ Sodium (Chloride) 500 mls @ 43.2 mls/hr IV .[id number] [facility] Last Admin: 05/24/17 15:29 Dose: 43.2 mls/hr Insulin Aspart (Novolog) 2 - 14 unit SQ SS PRN; Protocol PRN Reason: Hyperglycemia Last Admin: 05/24/17 12:12 Dose: 7 unit Insulin Glargine (Lantus) 40 unit SQ HS [facility] Last Admin: 05/23/17 20:09 Dose: 40 unit Lorazepam (Ativan Inj) 0.5 mg IVP Q6H PRN Last Admin: 05/24/17 15:55 Dose: 0.5 mg Menthol (Ricola Sf) 1 lozenge MM PRN PRN PRN Reason: Cough Metformin HCl (Glucophage) 500 mg PO BIDWM [facility] Last Admin: 05/21/17 10:52 Dose: Not Given Methylprednisolone Sodium Succinate (Solu-Medrol) 80 mg IVP Q8HR [facility] Metoclopramide HCl (Reglan) 5 mg GT Q6H [facility] Last Admin: 05/24/17 11:09 Dose: 5 mg Morphine Sulfate (Morphine Sulfate Inj) 1 - 2 mg IVP Q2H PRN PRN Reason: Pain Last Admin: 05/24/17 08:20 Dose: 2 mg Nitroglycerin (Nitrostat) 0.4 mg SL Q5MIN3 PRN PRN Reason: CP Last Admin: 05/21/17 08:35 Dose: 0.4 mg --Pom--(Itraconazole [Itraconazole] 200 Mg) 200 mg PO BID [facility] Last Admin: 05/21/17 10:56 Dose: Not Given Omeprazole (Prilosec) 40 mg PO ACB [facility] Last Admin: 05/21/17 06:27 Dose: 40 mg Ondansetron HCl (Zofran) 4 mg IVP Q6H PRN PRN Reason: Nausea &/or vomiting Last Admin: 05/19/17 02:45 Dose: 4 mg Pantoprazole Sodium (Protonix Iv) 40 mg IVP DAILY [facility] Last Admin: 05/24/17 08:57 Dose: 40 mg Simvastatin (Zocor) 20 mg PO HS [facility] Last Admin: 05/23/17 20:09 Dose: 20 mg Sodium Chloride (Iv Flush) 10 - 80 ml IVF PRN PRN PRN Reason: Flushing Last Admin: 05/21/17 09:27 Dose: 30 ml Sodium Chloride ([place] Sea Nasal Moisturizing [place]) 1 spray EA NOSTRIL PRN PRN PRN Reason: Congestion Last Admin: 05/19/17 16:37 Dose: 1 spray - Urinary Catheter Management Urethral Cath placed during this visit: yes Insertion date: 05/21/17 Results 05/24/17 04:20 05/24/17 04:20 Cardiac Enzymes 05/24/17 Range/Units 04:20 B-Natriuretic Peptide 7410 H (0-175) pg/mL Coagulation 05/23/17 05/24/17 05/24/17 Range/Units 18:17 04:20 04:20 APTT 59.9 H 54.8 H (24-36) SEC B-Natriuretic Peptide 7410 H (0-175) pg/mL CBC 05/24/17 Range/Units 04:20 WBC 7.5 (4.5-11.0) T/MM3 RBC 4.05 L (4.50-5.90) M/MM3 Hgb 11.9 L (13.5-17.5) GM/DL Hct 39.2 L (41-53) % Plt Count 120 L (130-400) T/MM3 Neut # (Auto) Not performed Lymph # (Auto) Not performed [place] # (Auto) Not performed Eos # (Auto) Not performed Baso # (Auto) Not performed Comprehensive Metabolic Panel 05/24/17 Range/Units 04:20 Sodium 142 (134-144) MEQ/L Potassium 3.2 L (3.6-5) MEQ/L Chloride 97 L (98-107) MEQ/L Carbon Dioxide 39 H (22-30) MEQ/L BUN 24.0 H (9-20) MG/DL Creatinine 0.7 L (0.8-1.5) MG/DL Glucose 275 H (75-110) MG/DL Calcium 7.3 L (8.4-10.2) MG/DL Intake and Output 05/24/17 05/24/17 05/24/17 06:59 14:59 22:59 Intake Total 1247.479 / 1247.479 772.792 / 772.792 105 / 105 Output Total 1265 / 1265 2350 / 2350 Balance -17.521 / -17.521 -1577.208 / -1577.208 105 / 105 Intake: IV 957.479 / 957.479 612.792 / 612.792 105 / 105 Cefepime 1 gm In Ns 50 ml @ 100 50 / 50 mls/hr IV Q6H [facility] Rx#: [id number] Dexmedetomidine 1,000 mcg In NS 260.000 / 260.000 260.000 / 260.000 250ml 250 ml @ 0.2 MCG/KG/HR 6 .87 mls/hr IV .Q24H PRN Rx#: [id number] FentaNYL 1,000 mcg In Ns 80 ml 138.666 / 138.666 141.667 / 141.667 @ Per Protocol IV .Q0M PRN Rx#: [id number] Heparin Drip 20,000 unit In 500 8.813 / 8.813 1.125 / 1.125 ml @ 45 mls/hr IV .Q11H7M [facility] Rx#:[id number] Potassium Chloride Inj 10 meq 210 / 210 105 / 105 In Ns 100 ml @ 105 mls/hr IV Q1H [facility] Rx#:[id number] Vancomycin 1,500 mg In NS 500ml 500.000 / 500.000 500 ml @ 250 mls/hr IV Q8H [facility] Rx#:[id number] Tube Feeding 160 / 160 160 / 160 Oral 160 / 160 160 / 160 Intake, Gastric Tube Irrigant 130 / 130 Amount Oral 130 / 130 Output: Urine Amount (Catheter) 1265 / 1265 2350 / 2350 Other: Urine Appearance Clear Clear Urine Color Pale Pale Yellow Yellow Weight 317 lb 14.505 oz Patient Weight 05/25/17 06:59 Weight 317 lb 14.505 oz - Imaging and Cardiology EKG results: image reviewed Imaging & Cardiology Narrative: Date of Exam: 05/24/17 Ordering Provider: Ariane Flores APRN Type of Exam(s): XR chest 1V Reason for Exam(s): f/u infiltrates Indication: f/u infiltrates PROCEDURE: XR chest 1V: Encounter: Initial Comparison: March 21, 2018 Findings: Endotracheal and nasogastric tubes remain in place. Left PICC line. Aeration of the right lower lobe has slightly improved. Small pleural effusions remain. No new or worsening airspace disease. No pneumothorax. Heart size and mediastinal contours are stable. Impression: Improving right basilar infiltrate. 05/24/17 16:08 - EKG Interpretation EKG: sinus rhythm (ST depression indicative of ischemia) Assessment and Plan - Assessment and Plan (1) Chest pain Current visit: Yes Status: Acute (2) Community acquired pneumonia Current visit: No Status: Acute (3) Acute and chronic respiratory failure with hypercapnia Current visit: Yes Status: Acute (4) Atherosclerotic heart disease of [place] coronary artery without angina pectoris Current visit: Yes Status: Chronic (5) Essential (primary) hypertension Current visit: Yes Status: Chronic (6) Type 2 diabetes mellitus without complications Current visit: Yes Status: Chronic (7) Obesity (BMI 30-39.9) Current visit: Yes Status: Chronic (8) ANGELLA (obstructive sleep apnea) Current visit: Yes Status: Chronic (9) NSTEMI (non-ST elevated myocardial infarction) Current visit: Yes Status: Acute - Assessment and Plan 05/21/17 Reportedly had severe chest pain, was johnson and diaphoretic as well as tachypneic followed by decreased LOC. - HR 140s, sinus tach vs. A flutter - Given Adenosine 6mg IVP, followed by 12mg X2 without slowing HR. - Sedation given and attempted DCCV which was unsuccessful. - Following 2nd dose of Metoprolol 5mg IV heart rate slowed enough to confirm it is Sinus tachycardia. - Repeat EKG obtained, started on Heparin drip. - Trend Troponin - 2D echo - CTA for emboli/ dissection 05/22/17 NSTEMI: - Troponin: 1) 0.015, 2) 1.500, 3) 3.090, 4) 2.100 - EKG: SR, anterolateral ischemia V3-V6, inferior ischemia II/aVf - Left heart cath when more stable - Continue Heparin drip. HTN: Catapress TTS 1 patch while NPO - Hydralazine prn as ordered - Labetalol prn, hold HR <65 05/23/17 BP improving - EKG now please 05/24/17 Stop Heparin drip, get HIT panel Spoke with pharmacy, start Angiomax at 0.15mg/kg/hr (21.6mg/hr) until HIT panel resulted. Continues to have ST depression on Telemetry and EKG. Add Amlodipine 10mg per OG tube for better BP control Thank you for allowing us to participate in the care of this patient, we will follow along with you. Hospital Course Summary Disclaimer: The visit summary below is not to be considered part of the above Progress Note. Hospital Course: 05/17/17 Admission Admit to observation status under the care of Dr. Lopez. Sepsis work up initiated in ED. Patient meeting SIRS criteria based on tachycardia, tachypnea and reported fevers at home without obvious source. Initial lactate was 1.4 with repeat lactate decreased to 0.9. Blood cultures pending. WBC stable at 5.0. CXR revealed left basilar scarring without focal pneumonia. Respiratory panel was negative. Patient was given DuoNeb treatments and Solu-Medrol 125mg IV in ED. Will continue respiratory care with DuoNeb treatments QID and Q6H PRN as well as Solu -Medrol 125mg IV Q6H. History of diabetes with A1c on 04/17/17 at 6.4%. Continue home medications and monitor blood sugars closely given treatment with steroids. Sliding scale insulin as indicated for hyperglycemia. Patient was placed on BiPAP in ED with improvement. Continue BiPAP as indicated. Ativan as needed for anxiety and agitation while on BiPAP. Will monitor closely on telemetry with continuous pulse oximetry. Oxygen as needed to maintain SAO2 between 90-95%, weaning as able to baseline of 5L. SCDs for DVT prophylaxis. Given sudden onset of dyspnea, will obtain CT angio chest for further evaluation of PE - results pending. NS at 100cc/hr for hydration given decreased oral intake as on BiPAP. Monitor daily weight closely for signs of fluid overload. Recheck labs in AM to monitor blood counts, electrolytes and renal function. Patient wishes to maintain FULL CODE status. Upon discharge, patient's care will be returned to his PCP, Dr. Odom. 05/18/17 Don reports that his breathing is a little better today and is he is more alert. New cough with sputum production. 1 of the 2 blood cultures obtained on admission is POSITIVE for Streptococcus. Night telehospitalist was notified and Rocephin 2g IV Q24 hours was initiated for antimicrobial coverage. Given new cough, will try and obtain a sputum culture. Mucinex for mucolytic effect. Ricola for cough. Continue respiratory care including nebulized treatments. Continue to encourage BiPAP as indicated and supplemental oxygen to maintain SAO2 between 90 -95%. Wean oxygen to baseline of 5L as able. Given sudden onset of dyspnea, CT angio chest was obtained and revealed no PE but did note 2.2cm left lower lobe pulmonary nodule raising concern for primary lung malignancy and recommended further evaluation. Will discuss consideration of pulmonary consult for further evaluation. Continue Solu-Medrol 125mg IV Q6 hours. Anticipate initiation of tapering in near future. Blood sugars remain elevated, most likely steroid effect, ranging from 160's-> 200. Continue sliding scale insulin. Given recent CT with contrast, will hold metformin and restart 05/19/17. Continue NS at 75cc/hr for hydration. Monitor urinary output and daily weight closely for signs of fluid over load. Oral intake is good. Consider discontinuation of fluids this afternoon. Ativan as needed for anxiety and agitation while on BiPAP. Troponins continue to trend up slowing - 0.015, 0.017, 0.029, 0.045 and 0.048 this morning. Will recheck troponin at 1030 and continue to monitor closely on telemetry. Patient denies chest pain. SCDs for DVT prophylaxis. Recheck labs in AM to monitor blood counts, electrolytes and renal function. Discussed at length with patient and family the importance of smoking cessation. He admits to wanting to stop smoking and inquired about initiation of Chantix. Continue Wellbutrin for smoking cessation. With BC positive and starting IV antibiotics, will change admission status to inpatient. Anticipate greater than 2 midnights of care needed. 05/19/17 Continue with Rocephin for antimicrobial coverage. With lungs still very tight and congested, will continue with Solu-Medrol 125mg IV q 6 hours. Continue Neb treatments and acapella. Encourage use of BiPAP as much as able to help his chronic hypercapnea. Stressed with about the importance of him not smoking. She understand. Will consult with Dr Ashby for pulm evaluation. Will discontinue IVF. May restart metformin this evening. Sugars with elevation secondary to steroids. Did give Diamox 500mg x1 this am for fluid motivation and to help minimize contraction alkalosis. PT/OT to evaluate and initiate treatment tomorrow for his significant pulmonary debility. 05/20 Continue with Rocephin for antimicrobial coverage. One blood culture was positive with streptococcus Viridans, Repeat BC were drawn this morning. Scheduled breathing tx, IV solu-medrol, as well as oxygen and Bipap Appreciate Dr Ashby consultation. Likely require bronchoscopy for biopsy of lung mass. Continue to monitor BGM remain elevated. Metformin was resumed as well as sliding scale insulin. Encourage PT/OT for strengthening 05/21 Resp failure --> ABG shows resp acidosis and he was placed on BiPAP with improvement in color. Repeat ABG shows pH 7.12, pCO2 106, pO2 185. CXR ordered. BG 230. Chest pain --> EKG shows ST changes and widened QRS, poss a-flutter; troponin pending. Dr. Govea consulted. He's had 2 NTG but remains very hypertensive with SBP 220s. Pt failed to respond to adenosine, and subseqently was cardioverted with conversion to sinus tach. Rapid response activated and Dr. Ramírez was at bedside x20 min. Transferred to CCU, where pt was met by Dr. Govea for evaluation. Continue treatment for resp status including steroids and Rocephin. <Francis Govea - Last Filed: 05/27/17 10:49> Exam Vital signs: Temperature 101.4 F H 05/27/17 08:00 Pulse Rate 75 05/27/17 09:30 Respiratory Rate 16 05/27/17 09:30 Blood Pressure 141/67 H 05/27/17 09:00 Pulse Oximetry 97 05/27/17 09:30 - Urinary Catheter Management Urethral Cath placed during this visit: no Results 05/27/17 03:54 05/27/17 03:55 CBC 05/27/17 Range/Units 03:54 WBC 11.4 H (4.5-11.0) T/MM3 RBC 4.16 L (4.50-5.90) M/MM3 Hgb 12.4 L (13.5-17.5) GM/DL Hct 41.4 (41-53) % Plt Count 90 L (130-400) T/MM3 Neut # (Auto) Not performed Lymph # (Auto) Not performed [place] # (Auto) Not performed Eos # (Auto) Not performed Baso # (Auto) Not performed Comprehensive Metabolic Panel 05/27/17 Range/Units 03:55 Sodium 144 (134-144) MEQ/L Potassium 4.5 (3.6-5) MEQ/L Chloride 103 (98-107) MEQ/L Carbon Dioxide 36 H (22-30) MEQ/L BUN 37.0 H (9-20) MG/DL Creatinine 0.7 L (0.8-1.5) MG/DL Glucose 348 H (75-110) MG/DL Calcium 7.5 L (8.4-10.2) MG/DL Intake and Output 05/26/17 05/27/17 05/27/17 22:59 06:59 14:59 Intake Total 2528.160 / 2528.160 1514.590 / 1514.590 516.183 / 516.183 Output Total 1729 525 / 525 Balance 798.160 / 798.160 -460.410 / -460.410 -8.817 / -8.817 Intake: IV 1688.160 / 1688.160 714.590 / 714.590 96.183 / 96.183 Bivalirudin 250 mg In NS 500ml 718.16 / 718.16 303.84 / 303.84 43.2 / 43.2 500 ml @ 43.2 mls/hr IV . [id number] [facility] Rx#:[id number] Cefepime 1 gm In Ns 50 ml @ 100 100.000 / 100.000 50.000 / 50.000 mls/hr IV Q6H [facility] Rx#: [id number] Dexmedetomidine 1,000 mcg In NS 520.00 / 520.00 260.000 / 260.000 37.983 / 37.983 250ml 250 ml @ 0.2 MCG/KG/HR 6 .87 mls/hr IV .Q24H PRN Rx#: [id number] FentaNYL 1,000 mcg In Ns 80 ml 200 / 200 100.750 / 100.750 15 / 15 @ Per Protocol IV .Q0M PRN Rx#: [id number] Levofloxacin Pb 750 mg In 150 150 / 150 ml @ 100 mls/hr IV Q24H [facility] Rx# :[id number] Tube Feeding 640 / 640 640 / 640 320 / 320 Oral 640 / 640 640 / 640 320 / 320 Intake, Gastric Tube Irrigant 200 / 200 160 / 160 100 / 100 Amount Oral 200 / 200 160 / 160 100 / 100 Output: Urine Amount (Catheter) 1729 525 / 525 Other: Urine Appearance Clear Clear Clear Urine Color Yellow Yellow Yellow Weight 142.1 kg Patient Weight 05/28/17 06:59 Weight 142.1 kg Assessment and Plan - Assessment and Plan (1) Community acquired pneumonia Current visit: No Status: Acute (2) Acute and chronic respiratory failure with hypercapnia Current visit: Yes Status: Acute (3) Chest pain Current visit: Yes Status: Acute (4) Atherosclerotic heart disease of [place] coronary artery without angina pectoris Current visit: Yes Status: Chronic (5) Essential (primary) hypertension Current visit: Yes Status: Chronic (6) Type 2 diabetes mellitus without complications Current visit: Yes Status: Chronic (7) Obesity (BMI 30-39.9) Current visit: Yes Status: Chronic (8) ANGELLA (obstructive sleep apnea) Current visit: Yes Status: Chronic (9) NSTEMI (non-ST elevated myocardial infarction) Current visit: Yes Status: Acute - Attestation Attestation Narrative: 05/27/17 10:49 Recommendation After examining the patient I agree with the above assessment. I am involved in the formulation of the patient's plan of care. Hospital Course Summary Disclaimer: The visit summary below is not to be considered part of the above Progress Note.
[2017-05-24] MEDS: LEVOFLOXACIN PB 750 MG/150 ML BAG IV SCH (16:16)
[2017-05-24] MEDS: LISINOPRIL 10 MG TABLET PO SCH (18:11)
[2017-05-24] MEDS: POTASSIUM CHLORIDE 20 MEQ/15 ML ORAL LIQUID PO SCH (19:21)
[2017-05-24] MEDS: INSULIN GLARGINE 100unit/ml INJECTION SQ SCH (21:45)
[2017-05-24] MEDS: SIMVASTATIN 20 MG TABLET PO SCH (21:45)
[2017-05-25] MEDS: METOCLOPRAMIDE 10mg/10ml ORAL LIQUID GT SCH ×5 (00:15→23:55)
[2017-05-25] MEDS: INSULIN ASPART 100unit/ml INJECTION SQ PRN ×4 (00:47→18:05)
[2017-05-25] MEDS: METHYLPREDNISOLONE SOD SUCC 125mg/2ml INJECTION IVP SCH ×3 (01:06→17:09)
[2017-05-25] MEDS: FUROSEMIDE 20 MG/2 ML INJECTION IVP SCH ×3 (01:07→17:10)
[2017-05-25] MEDS: FentaNYL 1,000 MCG in NS 80 ML IV PRN ×5 (01:42→18:00)
[2017-05-25] MEDS: DEXMEDETOMIDINE IV PRN ×5 (02:51→20:57)
[2017-05-25] MEDS: NS IV PRN ×5 (02:51→20:57)
[2017-05-25] MEDS: BIVALIRUDIN IV SCH ×2 (02:58→15:55)
[2017-05-25] MEDS: NS IV SCH ×2 (02:58→15:55)
[2017-05-25] MEDS: CEFEPIME 1 GM in NS 50 ML IV SCH ×4 (03:03→21:40)
[2017-05-25] MEDS: ALBUTEROL/IPRATROPIUM 2.5mg-0.5mg/3ml NEB AEROSOL SCH ×6 (03:10→23:20)
[2017-05-25] MEDS: HYDRALAZINE 20 MG/ML INJECTION IVP PRN (05:10)
[2017-05-25] MEDS: BUDESONIDE INH.SOLN 0.5mg/2ml NEB AEROSOL SCH ×2 (07:00→18:40)
[2017-05-25] MEDS: PANTOPRAZOLE 40 MG INJECTION IVP SCH (08:32)
[2017-05-25] MEDS: CITALOPRAM 40 MG TABLET PO SCH (08:32)
[2017-05-25] MEDS: AMLODIPINE 10 MG TABLET PO SCH (08:33)
[2017-05-25] MEDS: LISINOPRIL 10 MG TABLET PO SCH (08:33)
[2017-05-25] MEDS: ATENOLOL 50 MG TABLET PO SCH (08:33)
[2017-05-25] MEDS: ASPIRIN 81 MG CHEWABLE TABLET GT SCH (08:35)
[2017-05-25] MEDS: POTASSIUM CHLORIDE 20 MEQ/15 ML ORAL LIQUID PO SCH ×4 (10:09→20:00)
--- NOTE | 2017-05-25 10:35 | Pulmonology Progress Note ---
Subjective Principal diagnosis: SOB, respiratory failure Interval history: sedated on the vent with fentanyl and precedex, prn Ativan On AC/VC+ Vt 550, FiO2 450%, rate 16, SpO2 92%. Exam Vital signs: Temperature 101.2 F H 05/25/17 07:44 Pulse Rate 68 05/25/17 10:07 Respiratory Rate 18 05/25/17 10:07 Blood Pressure 168/76 H 05/25/17 07:44 Pulse Oximetry 93 05/25/17 10:07 - Constitutional no acute distress, obese Comments: sedated on vent - Routine HEENT Exam Head: Present: normocephalic, atraumatic Eye: Absent: conjunctival icterus ENT: Present: mucous membranes moist, external ear normal Comments: ETT in good position. Oral cares being done - Routine Neck Exam Present: supple - Routine Respiratory Exam Present: patient mechanically ventilated, decreased breath sounds, rhonchi. Absent: accessory muscle use, wheezes - Routine Cardiovascular Exam Present: RRR - Routine Abdominal Exam Present: soft. Absent: guarding - Routine Exam Comments: wiseman cath - Routine Extremities Exam Absent: cyanosis Comments: edema improved. - Routine Skin Exam Present: intact. Absent: rash - Urinary Catheter Management Urethral Cath placed during this visit: yes Insertion date: 05/21/17 Assessment and Plan (1) Acute exacerbation of chronic obstructive airways disease Status: Acute Assessment and plan: wean methylpred to 40 q12. monitor for wheeze or bronchospasm. continue neb A/ A q4h Current Visit: Yes (2) Acute and chronic respiratory failure with hypercapnia Status: Acute Assessment and plan: on [facility] vent, AC/VC+ Vt 550, rate 18, FIO2 45%, peep 5 I would favor holding fentanyl/Ativan (continue Precedex) and try SBT on PSV 8/5 , Fio2 45%. If his RSBI is excellent we could consider extubation. I would like to see an ABG on the SBT to see if he is having issues with hypercapnia Current Visit: Yes (3) Pneumonia Status: Acute Assessment and plan: on cefepime/levaquin. new fever in the last 24 hours. monitor cultures. no signs of diarrhea. WBC's are stable, WNL CXR shows no new infiltrates Current Visit: Yes - Assessment and Plan Acute on Chronic Hypoxic Hypercapnic Respiratory Failure LLL mass 2.2 cm - plan OP biopsy COPD exacerbation Chest Pain/Wide complex tachycardia s/p cardioversion Bacteremia likely contaminant ANGELLA/OHS Morbid Obesity DM Thrombocytopenia - off heparin, on bivalirudin - Time Spent With Patient Total time spent is greater than 50% in coordination of care (as documented) at patient's floor/unit and/or counseling patient: less than 15 minutes
--- NOTE | 2017-05-25 12:30 | Progress Note ---
- Date 05/25/17 Subjective: Mr. Mar rested well overnight according to his . He developed fever last night with maximum 102.5. His tolerating tube feedings without residuals and has not yet had a bowel movement. Nursing reports no skin breakdown and no recurrent tachyarrhythmias at rest or with activities. FiO2 titrated to 40% overnight but has increased 45% this morning. Spontaneous breathing trial tolerated well this morning for 30 minutes. Objective Vital signs: Temperature 101.2 F H 05/25/17 07:44 Pulse Rate 71 05/25/17 12:03 Respiratory Rate 15 05/25/17 12:03 Blood Pressure 168/76 H 05/25/17 07:44 Pulse Oximetry 95 -45% 05/25/17 12:03 I/O 3413/5055 Weight down 4 kg past 24 hours Sedated, opens eyes to stimulation Conjugate gaze, pupils 1.5 mm symmetrically, conjunctiva clear, sclera anicteric ; orally intubated Respirations nonlabored, decreased air flow bilateral lung valiente, anterior lung valiente slightly coarse Regular rhythm, S1 and S2 Abdomen soft, nontender, obese, diminished bowel sounds No edema lower extremities, trace edema bilateral hands-improved from yesterday Skin without generalized rash, superficial abrasion right wrist but skin is not open Rhythm: Normal Sinus Rhythm Height/Weight/BMI: Height 1.85 m Weight 140.2 kg Body Mass Index 39.7 Results - Labs CBC & Chem 7: 05/25/17 04:08 05/25/17 04:08 Labs: S89 L10 M1 AST 108, ALT 169, bilirubin 1.0 Magnesium 2.4 UA-+3 glucose, +2 occult blood, 30-50 RBCs, sero-1 WBC HIT Ab pending Microbiology Results: Microbiology 05/20/17 04:36 Midline Blood Culture - Final No Growth After 5 Days 05/20/17 04:36 Midline Blood Culture - Final No Growth After 5 Days 05/21/17 13:45 Sputum, Expectorated Gram Stain - Final 05/21/17 13:45 Sputum, Expectorated Sputum Culture - Final Yeast, not C. albicans Normal Respiratory Charly - ABG Interpretation Attestation: I reviewed and interpreted this ABG. (improving hypercarbia, persistent hypoxia) ABG results: 05/25/17 11:25 ABG pH 7.490 H ABG pCO2 54 H ABG pO2 67 L ABG HCO3 41.2 H ABG Total CO2 42.9 H ABG O2 Saturation 94.0 L ABG Base Excess 15.4 H - Imaging and Cardiology Chest x-ray Status: image reviewed by me (hypoventilation, residual bilateral lower lobe infiltrates) Assessment and Plan (1) Acute and chronic respiratory failure with hypercapnia Current visit: Yes Status: Acute (2) Acute exacerbation of chronic obstructive airways disease Current visit: Yes Status: Acute (3) NSTEMI (non-ST elevated myocardial infarction) Current visit: Yes Status: Acute Assessment and Plan: Assessment Acute on chronic respiratory failure with hypercapnia and hypoxia - baseline home oxygen at 5L; intubated 05/21. Wide complex tachycardia; s/p cardioversion with return to sinus tach NSTEMI-peak troponin 3.09, diffuse T changes Thrombocytopenia-05/24/17 COPD exacerbation Bilateral lower lobe pneumonia-05/21/17 Bacteremia secondary to streptococcus viridans (1 of 2 BC from 05/17/17 positive) Hypokalemia-05/23/17 Recurrent fever-05/24/17 Transaminitis Chronic Medical: Cardiomyopathy-EF 30% by echo 05/21/17 Pulmonary nodule - Irregular 2.2cm left lower lobe pulmonary nodule Anemia, unspecified, stable Coronary Artery Disease Hypertension Sleep Apnea Diabetes Mellitus Type 2 - A1c on 04/17/17 was 6.4% GERD Osteoarthritis Peripheral neuropathy Fibromyalgia Depression Tobacco dependency Peripheral vascular disease Morbid obesity - BMI >40 Plan Patient remains on a ventilator requiring continuous sedation-tolerated spontaneous breathing trial; steroids reduced per Dr. Ashby-discussed with Dr. Ashby earlier today. Has developed recurrent fever in the past 24 hours, cultures were not drawn last night but will request that blood cultures today. White count stable and left shift has resolved despite development of fever. Urine unremarkable, PICC and midline sites without inflammation and no other skin sources evident, sputum unremarkable. Has PICC and midline as possible sources-both to be cultured. Continue cefepime and Levaquin pending additional data requiring alternate antibiotics. Vancomycin discontinued 05/24/17. Diuresing with Lasix-continue aggressive diuresis today to facilitate extubation in the near future. Potassium supplementation increased per OG, recheck this afternoon. Peak troponin 3.09 with diffuse T-wave changes; will require cardiac catheterization in the future. Platelet count dropping on heparin drip from 231--> 120-->100 today. HIT Ab pending, heparin discontinued 05/24 and bivalirudin initiated per cardiology. Blood pressure remains elevated-atenolol increased to 50 mg daily. Lisinopril started yesterday, dose will be increased to 20 mg daily today. IV hydralazine available as needed for systolic pressures above 180. OG placed 05/22-tolerating medications low-volume tube feedings. Dietary is recommended converting to pulmonary formula with goal rate 80 mL per hour-at 30 ml/hr currently. Persistent hyperglycemia, no change in insulin today given reduction in steroid dose. AST and ALT both elevated, previously suggested with minor elevation and ALT immediately after acute hypoxemia several days ago. Likely due to hypoxic insult. Continue to monitor intermittently. Discussed with nursing staff, , pulmonary. Patient remains critically ill requiring aggressive care for support. 25 minutes spent in care today. - Physician Narrative Narrative: Date: 05/25/17 Time: 1225 Hospital Course Summary Disclaimer: The visit summary below is not to be considered part of the above Progress Note. Hospital Course: 05/17/17 Admission Admit to observation status under the care of Dr. Lopez. Sepsis work up initiated in ED. Patient meeting SIRS criteria based on tachycardia, tachypnea and reported fevers at home without obvious source. Initial lactate was 1.4 with repeat lactate decreased to 0.9. Blood cultures pending. WBC stable at 5.0. CXR revealed left basilar scarring without focal pneumonia. Respiratory panel was negative. Patient was given DuoNeb treatments and Solu-Medrol 125mg IV in ED. Will continue respiratory care with DuoNeb treatments QID and Q6H PRN as well as Solu -Medrol 125mg IV Q6H. History of diabetes with A1c on 04/17/17 at 6.4%. Continue home medications and monitor blood sugars closely given treatment with steroids. Sliding scale insulin as indicated for hyperglycemia. Patient was placed on BiPAP in ED with improvement. Continue BiPAP as indicated. Ativan as needed for anxiety and agitation while on BiPAP. Will monitor closely on telemetry with continuous pulse oximetry. Oxygen as needed to maintain SAO2 between 90-95%, weaning as able to baseline of 5L. SCDs for DVT prophylaxis. Given sudden onset of dyspnea, will obtain CT angio chest for further evaluation of PE - results pending. NS at 100cc/hr for hydration given decreased oral intake as on BiPAP. Monitor daily weight closely for signs of fluid overload. Recheck labs in AM to monitor blood counts, electrolytes and renal function. Patient wishes to maintain FULL CODE status. Upon discharge, patient's care will be returned to his PCP, Dr. Odom. 05/18/17 Don reports that his breathing is a little better today and is he is more alert. New cough with sputum production. 1 of the 2 blood cultures obtained on admission is POSITIVE for Streptococcus. Night telehospitalist was notified and Rocephin 2g IV Q24 hours was initiated for antimicrobial coverage. Given new cough, will try and obtain a sputum culture. Mucinex for mucolytic effect. Ricola for cough. Continue respiratory care including nebulized treatments. Continue to encourage BiPAP as indicated and supplemental oxygen to maintain SAO2 between 90 -95%. Wean oxygen to baseline of 5L as able. Given sudden onset of dyspnea, CT angio chest was obtained and revealed no PE but did note 2.2cm left lower lobe pulmonary nodule raising concern for primary lung malignancy and recommended further evaluation. Will discuss consideration of pulmonary consult for further evaluation. Continue Solu-Medrol 125mg IV Q6 hours. Anticipate initiation of tapering in near future. Blood sugars remain elevated, most likely steroid effect, ranging from 160's-> 200. Continue sliding scale insulin. Given recent CT with contrast, will hold metformin and restart 05/19/17. Continue NS at 75cc/hr for hydration. Monitor urinary output and daily weight closely for signs of fluid over load. Oral intake is good. Consider discontinuation of fluids this afternoon. Ativan as needed for anxiety and agitation while on BiPAP. Troponins continue to trend up slowing - 0.015, 0.017, 0.029, 0.045 and 0.048 this morning. Will recheck troponin at 1030 and continue to monitor closely on telemetry. Patient denies chest pain. SCDs for DVT prophylaxis. Recheck labs in AM to monitor blood counts, electrolytes and renal function. Discussed at length with patient and family the importance of smoking cessation. He admits to wanting to stop smoking and inquired about initiation of Chantix. Continue Wellbutrin for smoking cessation. With BC positive and starting IV antibiotics, will change admission status to inpatient. Anticipate greater than 2 midnights of care needed. 05/19/17 Continue with Rocephin for antimicrobial coverage. With lungs still very tight and congested, will continue with Solu-Medrol 125mg IV q 6 hours. Continue Neb treatments and acapella. Encourage use of BiPAP as much as able to help his chronic hypercapnea. Stressed with about the importance of him not smoking. She understand. Will consult with Dr Ashby for pulm evaluation. Will discontinue IVF. May restart metformin this evening. Sugars with elevation secondary to steroids. Did give Diamox 500mg x1 this am for fluid motivation and to help minimize contraction alkalosis. PT/OT to evaluate and initiate treatment tomorrow for his significant pulmonary debility. 05/20 Continue with Rocephin for antimicrobial coverage. One blood culture was positive with streptococcus Viridans, Repeat BC were drawn this morning. Scheduled breathing tx, IV solu-medrol, as well as oxygen and Bipap Appreciate Dr Ashby consultation. Likely require bronchoscopy for biopsy of lung mass. Continue to monitor BGM remain elevated. Metformin was resumed as well as sliding scale insulin. Encourage PT/OT for strengthening 05/21 Resp failure --> ABG shows resp acidosis and he was placed on BiPAP with improvement in color. Repeat ABG shows pH 7.12, pCO2 106, pO2 185. CXR ordered. BG 230. Chest pain --> EKG shows ST changes and widened QRS, poss a-flutter; troponin pending. Dr. Govea consulted. He's had 2 NTG but remains very hypertensive with SBP 220s. Pt failed to respond to adenosine, and subseqently was cardioverted with conversion to sinus tach. Rapid response activated and Dr. Ramírez was at bedside x20 min. Transferred to CCU, where pt was met by Dr. Govea for evaluation. Continue treatment for resp status including steroids and Rocephin. 05/22 Patient remains on a ventilator requiring continuous sedation. Oxygenation borderline on 40% FiO2-oxygen flow increased to 60% by pulmonary earlier today. Continue triple antibiotics (cefepime, Levaquin, vancomycin) pending sputum culture due to extensive pneumonia on CT/chest x-ray yesterday-not present on initial films. Peak troponin 3.09 with diffuse T-wave changes; discussed with Dr. Govea and will require cardiac catheterization in the future. Continue heparin drip. Blood pressure is uncontrolled-clonidine patch initiated earlier, IV hydralazine added as needed for systolic pressures above 180. OG placed-resume statin, SSRI, atenolol, and aspirin. Assess gastric residuals today-anticipate beginning tube feedings tomorrow. Adequate urine output, continue to monitor. Blood sugars remain elevated, off metformin at present. Increase basal insulin. 05/23 Patient remains on a ventilator requiring continuous sedation. Continue triple antibiotics (cefepime, Levaquin, vancomycin); suspect aspiration pneumonia-sputum culture normal charly. Extensive infiltrates on CT chest. Repeat chest x-ray in a.m. Fluid balance positive-roughly 5 L over several days, weight up-diuresis today. Potassium supplemented IV earlier today. Peak troponin 3.09 with diffuse T-wave changes; discussed with Dr. Govea and will require cardiac catheterization in the future. Continue heparin drip. Blood pressure remains elevated but improved from yesterday with addition of clonidine patch and resumption of atenolol per OG. IV hydralazine available as needed for systolic pressures above 180. OG placed 05/22-low volume gastric output overnight and tolerating medications per OG. Will initiate tube feedings with low glycemic formula at 20 mL per hour overnight. Nutrition consult. Blood sugars remain elevated, off metformin at present and on steroids. Increase basal insulin to 40 units anticipating further increase in blood sugar with initiation of tube feedings. 05/24 Remains ventilator dependent. Steroids decreased. Vancomycin discontinued, continue Levaquin and cefepime for probable aspiration pneumonia and Streptococcus viridans positive blood culture. Continue diuresis, blood pressures elevated-atenolol increased and lisinopril initiated to improve control. Tolerating tube feedings at low-volume, converted pulmonary formula with goal of 80 mL per hour. Platelet count dropping, heparin discontinued and bivalirudin initiated. 05/25 Tolerating spontaneous breathing trial, steroids decreased. Continues to require continuous sedation. Lisinopril increased to 20 mg to improve blood pressure control. Platelet count down to 100K; HIT Ab pending. Fevers overnight without evidence source, leukocytosis/left shift resolved improved. Lines to be cultured.
[2017-05-25] MEDS: LEVOFLOXACIN PB 750 MG/150 ML BAG IV SCH (16:33)
[2017-05-25] MEDS: SIMVASTATIN 20 MG TABLET PO SCH (20:01)
[2017-05-25] MEDS: INSULIN GLARGINE 100unit/ml INJECTION SQ SCH (20:01)
[2017-05-25] MEDS: SALINE FLUSH 10ml SYRINGE IVF PRN ×2 (20:57→21:40)
[2017-05-25] MEDS ORDERED: NS FLUSH BAG 500ml IV PRN (21:40)
[2017-05-26] MEDS: FentaNYL 1,000 MCG in NS 80 ML IV PRN ×5 (00:03→23:43)
[2017-05-26] MEDS: INSULIN ASPART 100unit/ml INJECTION SQ PRN ×5 (00:21→23:37)
[2017-05-26] MEDS: FUROSEMIDE 20 MG/2 ML INJECTION IVP SCH ×3 (01:47→16:31)
[2017-05-26] MEDS: METHYLPREDNISOLONE SOD SUCC 125mg/2ml INJECTION IVP SCH ×3 (01:48→20:55)
[2017-05-26] MEDS: SALINE FLUSH 10ml SYRINGE IVF PRN (01:54)
[2017-05-26] MEDS: ALBUTEROL/IPRATROPIUM 2.5mg-0.5mg/3ml NEB AEROSOL SCH ×6 (02:45→22:51)
[2017-05-26] MEDS: NS IV PRN ×4 (03:12→23:14)
[2017-05-26] MEDS: DEXMEDETOMIDINE IV PRN ×4 (03:12→23:14)
[2017-05-26] MEDS: CEFEPIME 1 GM in NS 50 ML IV SCH ×4 (03:14→20:58)
[2017-05-26] MEDS: NS IV SCH ×3 (04:21→16:18)
[2017-05-26] MEDS: BIVALIRUDIN IV SCH ×3 (04:21→16:18)
[2017-05-26] MEDS: METOCLOPRAMIDE 10mg/10ml ORAL LIQUID GT SCH ×4 (04:45→23:37)
[2017-05-26] MEDS: POTASSIUM CHLORIDE 20 MEQ/15 ML ORAL LIQUID PO SCH ×4 (06:13→16:34)
[2017-05-26] MEDS: HEPARIN DRIP 20,000 UNIT/500 ML BAG IV SCH ×2 (06:16→06:17)
[2017-05-26] MEDS: BUDESONIDE INH.SOLN 0.5mg/2ml NEB AEROSOL SCH ×2 (06:35→18:50)
[2017-05-26] MEDS: HYDRALAZINE 20 MG/ML INJECTION IVP PRN (07:06)
[2017-05-26] MEDS: LISINOPRIL 10 MG TABLET PO SCH (08:21)
[2017-05-26] MEDS: AMLODIPINE 10 MG TABLET PO SCH (08:21)
[2017-05-26] MEDS: ASPIRIN 81 MG CHEWABLE TABLET GT SCH (08:22)
[2017-05-26] MEDS: CITALOPRAM 40 MG TABLET PO SCH (08:22)
[2017-05-26] MEDS: ATENOLOL 50 MG TABLET PO SCH (08:22)
[2017-05-26] MEDS: PANTOPRAZOLE 40 MG INJECTION IVP SCH (08:23)
--- NOTE | 2017-05-26 10:18 | XRay Report ---
Indication: f/u infiltrates PROCEDURE: XR chest 1V: Encounter: Initial Comparison: May 24, 2017 Findings: Tube lines are stable. Increasing airspace disease in the right upper lobe with persistent bilateral lower lobe airspace consolidation. Small pleural effusions. No pneumothorax. Heart and mediastinal contours are stable. Impression: Increasing right upper lobe airspace consolidation. .
--- NOTE | 2017-05-26 10:39 | XRay Report ---
Indication: f/u infiltrates PROCEDURE: XR chest 1V: Encounter: Initial Comparison: May 25, 2017 Findings: Tubes and lines are stable. Improving aeration of the lungs with decreasing bilateral airspace disease. Small effusions. No pneumothorax. Heart size and mediastinal contours are stable. Pulmonary vascularity is unchanged. Impression: Improving appearance of the lungs. .
--- NOTE | 2017-05-26 11:56 | Pulmonology Progress Note ---
Subjective Principal diagnosis: SOB, respiratory failure Interval history: Pt currently on the vent, tolerating On AC/VC+ Vt 550, FiO2 40%, rate 12, SpO2 95%. No issues per staff. Exam Vital signs: Temperature 99.2 F 05/26/17 08:00 Pulse Rate 69 05/26/17 10:00 Respiratory Rate 15 05/26/17 09:46 Blood Pressure 141/67 H 05/26/17 09:00 Pulse Oximetry 95 05/26/17 09:46 - Constitutional no acute distress, morbidly obese - Routine HEENT Exam Head: Present: normocephalic, atraumatic Eye: Present: EOMI, PERRL ENT: Present: mucous membranes moist - Routine Neck Exam Present: supple, full ROM, trachea midline - Routine Respiratory Exam Present: patient mechanically ventilated, decreased breath sounds - Routine Cardiovascular Exam Present: RRR, S1, S2, no murmur - Routine Abdominal Exam Present: soft, normoactive bowel sounds - Routine Extremities Exam Present: no edema, non tender, full ROM - Routine Back/Spine/Pelvis Exam Back/Spine: Present: full ROM - Routine Skin Exam Present: intact, dry - Routine Neurological Exam Present: altered mental status sedated on the vent - Routine Psychiatric Exam Present: unable to assess - Urinary Catheter Management Urethral Cath placed during this visit: yes Insertion date: 05/21/17 Assessment and Plan - Assessment and Plan Acute on Chronic Hypoxic Hypercapnic Respiratory Failure LLL mass 2.2 cm - plan OP biopsy COPD exacerbation Chest Pain/Wide complex tachycardia s/p cardioversion Bacteremia likely contaminant ANGELLA/OHS Morbid Obesity DM Thrombocytopenia - off heparin, on bivalirudin Plan: Pt currently on the Ac/Vc f12, Vt 50, peep 5, 40% and tolerating. Still on BT's with a/a q4, pulmicort BID and solum 80 q8, cont to wean, no wheezing. On cefepime, levaquin for pna, still on lasix 20 q8, improving CXR with less congestion and improving LLL infiltrate. Afebrile, no leukocytosis, plts 80, primary following. Will do SBT in am with sedation vacation. - Time Spent With Patient Total time spent is greater than 50% in coordination of care (as documented) at patient's floor/unit and/or counseling patient: less than 15 minutes
[2017-05-26] MEDS ORDERED: INSULIN ASPART 100unit/ml INJECTION SQ SCH (12:00)
--- NOTE | 2017-05-26 12:46 | Progress Note ---
- Date 05/26/17 Subjective: Mr. Moreno remains intubated and sedated. Tube feedings have been increased to goal rate of 80 mL per hour with good tolerance. He has not yet had a bowel movement. Nursing reports less agitation overnight although blood pressure was up requiring administration of hydralazine once early this morning. Blood sugars are higher with increased tube feedings. Urine output remains good and edema improving. Objective Vital signs: Temperature 99.2 F 05/26/17 08:00 Pulse Rate 72 05/26/17 11:45 Respiratory Rate 15 05/26/17 11:45 Blood Pressure 141/67 H 05/26/17 09:00 Pulse Oximetry 95 - 40% 05/26/17 11:45 I/O 4380/4290 EXAM General-sedated, does not respond to voice or palpation HEENT-conjugate gaze, pupils 2 mm bilaterally, conjunctiva clear, sclera anicteric, orally intubated Lungs-respirations nonlabored, good airflow anteriorly, breath sounds clear Cardiac-regular rhythm, S1-S2 Abd-soft, nontender, diminished bowel sounds Ext-+1 edema right upper extremity, trace edema left upper extremity; no lower extremity edema; stasis changes bilateral ankles/feet Neuro-withdraws all 4 extremity to painful stimuli Psych-sedated on Precedex/fentanyl - Rhythm: Normal Sinus Rhythm Height/Weight/BMI: Height 1.85 m Weight 140.7 kg Body Mass Index 39.7 Results - Labs CBC & Chem 7: 05/26/17 04:10 05/26/17 04:09 Labs: S89 B1 L9 M1 Microbiology Results: Microbiology 05/25/17 15:49 Midline Blood Culture - Preliminary Culture Initiated - Results Pending 05/25/17 15:43 Port/Picc Blood Culture - Preliminary Culture Initiated - Results Pending 05/20/17 04:36 Midline Blood Culture - Final No Growth After 5 Days 05/20/17 04:36 Midline Blood Culture - Final No Growth After 5 Days 05/21/17 13:45 Sputum, Expectorated Gram Stain - Final 05/21/17 13:45 Sputum, Expectorated Sputum Culture - Final Yeast, not C. albicans Normal Respiratory Charly - ABG Interpretation ABG results: 05/25/17 11:25 ABG pH 7.490 H ABG pCO2 54 H ABG pO2 67 L ABG HCO3 41.2 H ABG Total CO2 42.9 H ABG O2 Saturation 94.0 L ABG Base Excess 15.4 H - Imaging and Cardiology Chest x-ray Status: image reviewed by me (chest x-ray improving with near resolution of infiltrates previously described; ETT well-positioned) Assessment and Plan (1) Acute and chronic respiratory failure with hypercapnia Current visit: Yes Status: Acute (2) Acute exacerbation of chronic obstructive airways disease Current visit: Yes Status: Acute (3) NSTEMI (non-ST elevated myocardial infarction) Current visit: Yes Status: Acute Assessment and Plan: Assessment Acute on chronic respiratory failure with hypercapnia and hypoxia - baseline home oxygen at 5L; intubated 05/21. Wide complex tachycardia; s/p cardioversion with return to sinus tach NSTEMI-peak troponin 3.09, diffuse T changes Thrombocytopenia-05/24/17 COPD exacerbation Bilateral lower lobe pneumonia-05/21/17 Bacteremia secondary to streptococcus viridans (1 of 2 BC from 05/17/17 positive) Hypokalemia-05/23/17 Recurrent fever-05/24/17 Transaminitis Chronic Medical: Cardiomyopathy-EF 30% by echo 05/21/17 Pulmonary nodule - Irregular 2.2cm left lower lobe pulmonary nodule Anemia, unspecified, stable Coronary Artery Disease Hypertension Sleep Apnea Diabetes Mellitus Type 2 - A1c on 04/17/17 was 6.4% GERD Osteoarthritis Peripheral neuropathy Fibromyalgia Depression Tobacco dependency Peripheral vascular disease Morbid obesity - BMI >40 Plan Patient remains on a ventilator requiring continuous sedation-tolerated spontaneous breathing trial yesterday, discussed with Ariane-additional spontaneous trial tomorrow morning with possible extubation. Continues to have low-grade fevers-100.5 maximum overnight, no leukocytosis however and chest x-ray/urine unremarkable. Blood cultures drawn through both lines yesterday-results pending. On cefepime and Levaquin for aspiration pneumonia and previously reported positive blood culture-strep viridans. Vancomycin discontinued 05/24/17. Diuresing with Lasix-continue aggressive diuresis today to facilitate extubation in the near future. Potassium adequately supplemented. Supplement continued in conjunction with diuresis. Peak troponin 3.09 several days ago with diffuse T-wave changes; discussed with Dr. Govea and will require cardiac catheterization in the future. Platelet count dropping on heparin drip from 231--> 120-->100-->86 today. HIT Ab pending, heparin discontinued 05/24 and bivalirudin initiated per cardiology. Blood pressure trend appears to be improving on lisinopril/atenolol-may eventually require increased dose lisinopril or addition of amlodipine but do not plan additional changes today. Tolerating G-tube feedings at goal, scheduled NovoLog 10 units every 6 hours added to improve blood sugar control in the short run. AST and ALT both elevated, likely due to hypoxic insult. Continue to monitor intermittently. No further tachyarrhythmias. Discussed with nursing staff, , pulmonary. DVT Prophylaxis: other (bivalirudin) GI Prophylaxis: Protonix Resuscitation Status: Full Code - Physician Narrative Narrative: Date: 05/26/17 Time: 1242 Hospital Course Summary Disclaimer: The visit summary below is not to be considered part of the above Progress Note. Hospital Course: 05/17/17 Admission Admit to observation status under the care of Dr. Lopez. Sepsis work up initiated in ED. Patient meeting SIRS criteria based on tachycardia, tachypnea and reported fevers at home without obvious source. Initial lactate was 1.4 with repeat lactate decreased to 0.9. Blood cultures pending. WBC stable at 5.0. CXR revealed left basilar scarring without focal pneumonia. Respiratory panel was negative. Patient was given DuoNeb treatments and Solu-Medrol 125mg IV in ED. Will continue respiratory care with DuoNeb treatments QID and Q6H PRN as well as Solu -Medrol 125mg IV Q6H. History of diabetes with A1c on 04/17/17 at 6.4%. Continue home medications and monitor blood sugars closely given treatment with steroids. Sliding scale insulin as indicated for hyperglycemia. Patient was placed on BiPAP in ED with improvement. Continue BiPAP as indicated. Ativan as needed for anxiety and agitation while on BiPAP. Will monitor closely on telemetry with continuous pulse oximetry. Oxygen as needed to maintain SAO2 between 90-95%, weaning as able to baseline of 5L. SCDs for DVT prophylaxis. Given sudden onset of dyspnea, will obtain CT angio chest for further evaluation of PE - results pending. NS at 100cc/hr for hydration given decreased oral intake as on BiPAP. Monitor daily weight closely for signs of fluid overload. Recheck labs in AM to monitor blood counts, electrolytes and renal function. Patient wishes to maintain FULL CODE status. Upon discharge, patient's care will be returned to his PCP, Dr. Odom. 05/18/17 Don reports that his breathing is a little better today and is he is more alert. New cough with sputum production. 1 of the 2 blood cultures obtained on admission is POSITIVE for Streptococcus. Night telehospitalist was notified and Rocephin 2g IV Q24 hours was initiated for antimicrobial coverage. Given new cough, will try and obtain a sputum culture. Mucinex for mucolytic effect. Ricola for cough. Continue respiratory care including nebulized treatments. Continue to encourage BiPAP as indicated and supplemental oxygen to maintain SAO2 between 90 -95%. Wean oxygen to baseline of 5L as able. Given sudden onset of dyspnea, CT angio chest was obtained and revealed no PE but did note 2.2cm left lower lobe pulmonary nodule raising concern for primary lung malignancy and recommended further evaluation. Will discuss consideration of pulmonary consult for further evaluation. Continue Solu-Medrol 125mg IV Q6 hours. Anticipate initiation of tapering in near future. Blood sugars remain elevated, most likely steroid effect, ranging from 160's-> 200. Continue sliding scale insulin. Given recent CT with contrast, will hold metformin and restart 05/19/17. Continue NS at 75cc/hr for hydration. Monitor urinary output and daily weight closely for signs of fluid over load. Oral intake is good. Consider discontinuation of fluids this afternoon. Ativan as needed for anxiety and agitation while on BiPAP. Troponins continue to trend up slowing - 0.015, 0.017, 0.029, 0.045 and 0.048 this morning. Will recheck troponin at 1030 and continue to monitor closely on telemetry. Patient denies chest pain. SCDs for DVT prophylaxis. Recheck labs in AM to monitor blood counts, electrolytes and renal function. Discussed at length with patient and family the importance of smoking cessation. He admits to wanting to stop smoking and inquired about initiation of Chantix. Continue Wellbutrin for smoking cessation. With BC positive and starting IV antibiotics, will change admission status to inpatient. Anticipate greater than 2 midnights of care needed. 05/19/17 Continue with Rocephin for antimicrobial coverage. With lungs still very tight and congested, will continue with Solu-Medrol 125mg IV q 6 hours. Continue Neb treatments and acapella. Encourage use of BiPAP as much as able to help his chronic hypercapnea. Stressed with about the importance of him not smoking. She understand. Will consult with Dr Ashby for pulm evaluation. Will discontinue IVF. May restart metformin this evening. Sugars with elevation secondary to steroids. Did give Diamox 500mg x1 this am for fluid motivation and to help minimize contraction alkalosis. PT/OT to evaluate and initiate treatment tomorrow for his significant pulmonary debility. 05/20 Continue with Rocephin for antimicrobial coverage. One blood culture was positive with streptococcus Viridans, Repeat BC were drawn this morning. Scheduled breathing tx, IV solu-medrol, as well as oxygen and Bipap Appreciate Dr Ashby consultation. Likely require bronchoscopy for biopsy of lung mass. Continue to monitor BGM remain elevated. Metformin was resumed as well as sliding scale insulin. Encourage PT/OT for strengthening 05/21 Resp failure --> ABG shows resp acidosis and he was placed on BiPAP with improvement in color. Repeat ABG shows pH 7.12, pCO2 106, pO2 185. CXR ordered. BG 230. Chest pain --> EKG shows ST changes and widened QRS, poss a-flutter; troponin pending. Dr. Govea consulted. He's had 2 NTG but remains very hypertensive with SBP 220s. Pt failed to respond to adenosine, and subseqently was cardioverted with conversion to sinus tach. Rapid response activated and Dr. Ramírez was at bedside x20 min. Transferred to CCU, where pt was met by Dr. Govea for evaluation. Continue treatment for resp status including steroids and Rocephin. 05/22 Patient remains on a ventilator requiring continuous sedation. Oxygenation borderline on 40% FiO2-oxygen flow increased to 60% by pulmonary earlier today. Continue triple antibiotics (cefepime, Levaquin, vancomycin) pending sputum culture due to extensive pneumonia on CT/chest x-ray yesterday-not present on initial films. Peak troponin 3.09 with diffuse T-wave changes; discussed with Dr. Govea and will require cardiac catheterization in the future. Continue heparin drip. Blood pressure is uncontrolled-clonidine patch initiated earlier, IV hydralazine added as needed for systolic pressures above 180. OG placed-resume statin, SSRI, atenolol, and aspirin. Assess gastric residuals today-anticipate beginning tube feedings tomorrow. Adequate urine output, continue to monitor. Blood sugars remain elevated, off metformin at present. Increase basal insulin. 05/23 Patient remains on a ventilator requiring continuous sedation. Continue triple antibiotics (cefepime, Levaquin, vancomycin); suspect aspiration pneumonia-sputum culture normal charly. Extensive infiltrates on CT chest. Repeat chest x-ray in a.m. Fluid balance positive-roughly 5 L over several days, weight up-diuresis today. Potassium supplemented IV earlier today. Peak troponin 3.09 with diffuse T-wave changes; discussed with Dr. Govea and will require cardiac catheterization in the future. Continue heparin drip. Blood pressure remains elevated but improved from yesterday with addition of clonidine patch and resumption of atenolol per OG. IV hydralazine available as needed for systolic pressures above 180. OG placed 05/22-low volume gastric output overnight and tolerating medications per OG. Will initiate tube feedings with low glycemic formula at 20 mL per hour overnight. Nutrition consult. Blood sugars remain elevated, off metformin at present and on steroids. Increase basal insulin to 40 units anticipating further increase in blood sugar with initiation of tube feedings. 05/24 Remains ventilator dependent. Steroids decreased. Vancomycin discontinued, continue Levaquin and cefepime for probable aspiration pneumonia and Streptococcus viridans positive blood culture. Continue diuresis, blood pressures elevated-atenolol increased and lisinopril initiated to improve control. Tolerating tube feedings at low-volume, converted pulmonary formula with goal of 80 mL per hour. Platelet count dropping, heparin discontinued and bivalirudin initiated. 05/25 Tolerating spontaneous breathing trial, steroids decreased. Continues to require continuous sedation. Lisinopril increased to 20 mg to improve blood pressure control. Platelet count down to 100K; HIT Ab pending. Fevers overnight without evidence source, leukocytosis/left shift resolved improved. Lines to be cultured. 05/26 FiO2 titrated to 40%; diuresing well-continue same. Spontaneous breathing trial planned for the morning with possible extubation at that time. Cardiac status stable, no further tachyarrhythmias. Trend to improved blood pressures. Cardiac catheterization planned in the future. Remains on bivalirudin. Platelet count 86K today, HIT Ab pending. Tube feedings at goal, blood sugars significantly elevated-NovoLog scheduled every 6 hours and when necessary. Chest x-ray improved, remains on Levaquin and cefepime for probable aspiration pneumonia. Blood cultures drawn yesterday negative thus far.
[2017-05-26] MEDS: INSULIN ASPART 100unit/ml INJECTION SQ SCH ×2 (14:54→20:52)
[2017-05-26] MEDS: LEVOFLOXACIN PB 750 MG/150 ML BAG IV SCH (15:40)
[2017-05-26] MEDS: INSULIN GLARGINE 100unit/ml INJECTION SQ SCH (20:53)
[2017-05-26] MEDS: ACETAMINOPHEN 325 MG TABLET PO PRN (20:58)
[2017-05-26] MEDS: SIMVASTATIN 20 MG TABLET PO SCH (20:58)
[2017-05-27] MEDS: FUROSEMIDE 20 MG/2 ML INJECTION IVP SCH ×3 (01:30→20:07)
[2017-05-27] MEDS: SALINE FLUSH 10ml SYRINGE IVF PRN (01:31)
[2017-05-27] MEDS: ALBUTEROL/IPRATROPIUM 2.5mg-0.5mg/3ml NEB AEROSOL SCH ×6 (03:05→23:20)
[2017-05-27] MEDS: INSULIN ASPART 100unit/ml INJECTION SQ SCH ×3 (03:34→21:06)
[2017-05-27] MEDS: CEFEPIME 1 GM in NS 50 ML IV SCH ×4 (03:35→21:03)
[2017-05-27] MEDS: BIVALIRUDIN IV SCH ×2 (04:58→17:34)
[2017-05-27] MEDS: NS IV SCH ×2 (04:58→17:34)
[2017-05-27] MEDS: METOCLOPRAMIDE 10mg/10ml ORAL LIQUID GT SCH ×4 (05:00→22:33)
[2017-05-27] MEDS: FentaNYL 1,000 MCG in NS 80 ML IV PRN (05:57)
[2017-05-27] MEDS: NS IV PRN (06:07)
[2017-05-27] MEDS: DEXMEDETOMIDINE IV PRN (06:07)
[2017-05-27] MEDS: INSULIN ASPART 100unit/ml INJECTION SQ PRN ×3 (06:14→23:36)
[2017-05-27] MEDS: BUDESONIDE INH.SOLN 0.5mg/2ml NEB AEROSOL SCH ×2 (07:03→19:07)
--- NOTE | 2017-05-27 07:32 | XRay Report ---
EXAM: XR chest 1V LOCATION OF DICTATION: [facility] HISTORY: f/u infiltrates COMPARISON: May 26, 2017 FINDINGS: The heart size is upper limits normal. The mediastinal configuration is within normal limits. There is some bibasal atelectasis or scarring suggested. There are no pleural effusions. There is no pneumothorax. Endotracheal tube positioned 2.6 cm above the haseeb. Nasoenteric catheter extends in the stomach. Several leads overlie the patient. The osseous structures are within normal limits for the patient's age. IMPRESSION: 1. Limited depth of inspiration with bibasilar atelectasis. 2. Heart size is upper limits normal. 3. Endotracheal tube is in stable position. Nasoenteric catheter extends into the stomach. .
[2017-05-27] MEDS: POTASSIUM CHLORIDE 20 MEQ/15 ML ORAL LIQUID PO SCH ×3 (08:05→17:13)
[2017-05-27] MEDS: ASPIRIN 81 MG CHEWABLE TABLET GT SCH (09:12)
[2017-05-27] MEDS: LISINOPRIL 10 MG TABLET PO SCH (09:12)
[2017-05-27] MEDS: AMLODIPINE 10 MG TABLET PO SCH (09:12)
[2017-05-27] MEDS: CITALOPRAM 40 MG TABLET PO SCH (09:12)
[2017-05-27] MEDS: ATENOLOL 50 MG TABLET PO SCH (09:12)
[2017-05-27] MEDS: PANTOPRAZOLE 40 MG INJECTION IVP SCH (09:12)
[2017-05-27] MEDS: METHYLPREDNISOLONE SOD SUCC 125mg/2ml INJECTION IVP SCH ×2 (09:13→20:07)
--- NOTE | 2017-05-27 09:14 | Pulmonology Progress Note ---
Subjective Principal diagnosis: SOB, respiratory failure Interval history: Pt currently on the vent, tolerating On AC/VC+ Vt 550, FiO2 40%, rate 12, SpO2 96%. No issues per staff. Turning off sedation to start SBT soon. Exam Vital signs: Temperature 99.9 F 05/27/17 04:00 Pulse Rate 75 05/27/17 08:58 Respiratory Rate 16 05/27/17 08:58 Blood Pressure 156/73 H 05/27/17 07:00 Pulse Oximetry 96 05/27/17 08:58 - Constitutional no acute distress, morbidly obese Comments: sedated - Routine HEENT Exam Head: Present: normocephalic, atraumatic Eye: Present: EOMI, PERRL ENT: Present: mucous membranes moist - Routine Neck Exam Present: supple, full ROM, trachea midline - Routine Respiratory Exam Present: patient mechanically ventilated, decreased breath sounds. Absent: accessory muscle use - Routine Cardiovascular Exam Present: RRR, S1, S2, no murmur - Routine Abdominal Exam Present: soft, normoactive bowel sounds - Routine Extremities Exam Present: no edema, non tender, full ROM - Routine Back/Spine/Pelvis Exam Back/Spine: Present: full ROM - Routine Skin Exam Present: intact, dry - Routine Neurological Exam sedated on the vent - Routine Psychiatric Exam Present: unable to assess - Urinary Catheter Management Urethral Cath placed during this visit: yes Insertion date: 05/21/17 Assessment and Plan - Assessment and Plan Acute on Chronic Hypoxic Hypercapnic Respiratory Failure LLL mass 2.2 cm - plan OP biopsy COPD exacerbation Chest Pain/Wide complex tachycardia s/p cardioversion Bacteremia likely contaminant ANGELLA/OHS Morbid Obesity DM Thrombocytopenia - off heparin, on bivalirudin Plan: Pt currently on the Ac/Vc f12, Vt 50, peep 5, 40% and tolerating. Still on BT's with a/a q4, pulmicort BID and solum 80 q12, weaned 05/26, cont to wean as able. On cefepime, levaquin for pna, still on lasix 20 q8, istable CXR with less congestion and improving LLL infiltrate. Afebrile, no leukocytosis, plts 90, primary following. off fentanyl and precedex decreased to 1, will do SBT once he wakes up. - Time Spent With Patient Total time spent is greater than 50% in coordination of care (as documented) at patient's floor/unit and/or counseling patient: less than 15 minutes
[2017-05-27] MEDS ORDERED: FALL RISK - PHARMACY CONSULT XX ONE (10:17)
[2017-05-27 11:57] VITALS: BMI 41.5
[2017-05-27] MEDS ORDERED: BISACODYL 10 MG SUPPOSITORY RECTALLY PRN (15:11)
--- NOTE | 2017-05-27 15:34 | Progress Note ---
- Date 05/27/17 Subjective: Mr. Moreno did well with spontaneous breathing trial and was being extubated at the time of my visit earlier this afternoon. Immediately after extubation he denied dyspnea, chest pain, nausea, or generalized pain. Nursing report he passed a smear of stool but has really not had a bowel movement following administration of milk of magnesia yesterday. OG was removed in conjunction with extubation. Blood sugars have remained elevated. He continues to have intermittent fever with maximum 101.4 last night. Family members are at bedside and did not report additional concerns. Objective Vital signs: Temperature 99.2 F 05/27/17 12:00 Pulse Rate 80 05/27/17 14:56 Respiratory Rate 22 05/27/17 14:59 Blood Pressure 134/63 05/27/17 13:00 Pulse Oximetry 95 05/27/17 14:59 I/O 5214/5500 EXAM General-nods yes no to questions; response to his 's voice better than other examiners in the room HEENT-conjugate gaze, sclera anicteric, mild conjunctival injection, some white plaques in the oropharynx on both the tongue and the perkins Lungs-respirations nonlabored, good airflow, anterior breath sounds are clear bilaterally, no wheezing present Cardiac-regular rhythm, S1-S2 Abd-soft, moderately distended/obese, nontender, active bowel sounds Ext-without edema in the lower extremities, trace edema upper extremities/ dorsal hands bilaterally Neuro-moving upper extremities spontaneously and flight engineer helicopter to command, lower extremities not assessed at this time Psych-calm - Rhythm: Normal Sinus Rhythm Height/Weight/BMI: Height 1.85 m Weight 142.1 kg Body Mass Index 41.5 Results - Labs CBC & Chem 7: 05/27/17 03:54 05/27/17 03:55 Labs: S83 B2 L11 M3 reactive lymph1 Microbiology Results: Microbiology 05/25/17 15:43 Port/Picc Blood Culture - Preliminary No Growth After 1 Day 05/25/17 15:49 Midline Blood Culture - Preliminary No Growth After 1 Day 05/20/17 04:36 Midline Blood Culture - Final No Growth After 5 Days 05/20/17 04:36 Midline Blood Culture - Final No Growth After 5 Days 05/21/17 13:45 Sputum, Expectorated Gram Stain - Final 05/21/17 13:45 Sputum, Expectorated Sputum Culture - Final Yeast, not C. albicans Normal Respiratory Charly - ABG Interpretation ABG results: 05/27/17 12:50 ABG pH 7.450 ABG pCO2 53 H ABG pO2 61 L ABG HCO3 36.8 H ABG Total CO2 38.4 H ABG O2 Saturation 92.0 L ABG Base Excess 11.0 H - Imaging and Cardiology CT scan - abdomen Status: image reviewed by me (ET position stable, atelectasis left base) Assessment and Plan (1) Acute and chronic respiratory failure with hypercapnia Current visit: Yes Status: Acute (2) Acute exacerbation of chronic obstructive airways disease Current visit: Yes Status: Acute (3) NSTEMI (non-ST elevated myocardial infarction) Current visit: Yes Status: Acute Assessment and Plan: Assessment Acute on chronic respiratory failure with hypercapnia and hypoxia - baseline home oxygen at 5L; intubated 05/21. Wide complex tachycardia; s/p cardioversion with return to sinus tach NSTEMI-peak troponin 3.09, diffuse T changes Thrombocytopenia-05/24/17 COPD exacerbation Bilateral lower lobe pneumonia-05/21/17 Bacteremia secondary to streptococcus viridans (1 of 2 BC from 05/17/17 positive) Hypokalemia-05/23/17 Recurrent fever-05/24/17 Transaminitis Chronic Medical: Cardiomyopathy-EF 30% by echo 05/21/17 Pulmonary nodule - Irregular 2.2cm left lower lobe pulmonary nodule Anemia, unspecified, stable Coronary Artery Disease Hypertension Sleep Apnea Diabetes Mellitus Type 2 - A1c on 04/17/17 was 6.4% GERD Osteoarthritis Peripheral neuropathy Fibromyalgia Depression Tobacco dependency Peripheral vascular disease Morbid obesity - BMI >40 Plan Patient did well with second spontaneous trial today and subsequently extubated. Placed on CPAP with home equipment immediately postextubation with intent of continuing CPAP overnight. Speech therapy evaluation of swallow in the morning, PT/OT evaluations tomorrow- will benefit from increased activity and getting out of bed. Chest x-ray clearing well, remains on cefepime and Levaquin for aspiration pneumonia and previously reported positive blood culture-strep viridans. Vancomycin discontinued 05/24/17. Intermittent fevers, repeat blood cultures negative thus far. White count slightly higher today with 2% bands continue to monitor closely. Diuresing well with Lasix- frequency decreased to every 12 hours with reduction in anticipated fluid intake of Precedex and fentanyl drips and discontinuation of tube feedings. Peak troponin 3.09 on 05/21/17 with diffuse T-wave changes; discussed with Dr. Govea and will require cardiac catheterization in the future. Platelet count dropped on heparin drip from 231--> 120. Heparin discontinued and bivalirudin initiated per cardiology: HIT Ab negative. Platelet count dropped to a low of 86K yesterday and is up slightly to 90K today. Blood pressure trend appears to be improving on lisinopril/atenolol-may eventually require increased dose lisinopril or addition of amlodipine but do not plan additional changes today. Was tolerating G-tube feedings while intubated although blood sugar control deteriorated; OG out and tube feedings discontinued. Scheduled short acting insulin discontinued with discontinuation of tube feedings. Continue basal insulin and corrective scale. AST and ALT both elevated, likely due to hypoxic insult. Continue to monitor intermittently. No further tachyarrhythmias. Discussed with nursing staff, , pulmonary, cardiology. - Physician Narrative Narrative: Date: 05/27/17 Time: 1528 Hospital Course Summary Disclaimer: The visit summary below is not to be considered part of the above Progress Note. Hospital Course: 05/17/17 Admission Admit to observation status under the care of Dr. Lopez. Sepsis work up initiated in ED. Patient meeting SIRS criteria based on tachycardia, tachypnea and reported fevers at home without obvious source. Initial lactate was 1.4 with repeat lactate decreased to 0.9. Blood cultures pending. WBC stable at 5.0. CXR revealed left basilar scarring without focal pneumonia. Respiratory panel was negative. Patient was given DuoNeb treatments and Solu-Medrol 125mg IV in ED. Will continue respiratory care with DuoNeb treatments QID and Q6H PRN as well as Solu -Medrol 125mg IV Q6H. History of diabetes with A1c on 04/17/17 at 6.4%. Continue home medications and monitor blood sugars closely given treatment with steroids. Sliding scale insulin as indicated for hyperglycemia. Patient was placed on BiPAP in ED with improvement. Continue BiPAP as indicated. Ativan as needed for anxiety and agitation while on BiPAP. Will monitor closely on telemetry with continuous pulse oximetry. Oxygen as needed to maintain SAO2 between 90-95%, weaning as able to baseline of 5L. SCDs for DVT prophylaxis. Given sudden onset of dyspnea, will obtain CT angio chest for further evaluation of PE - results pending. NS at 100cc/hr for hydration given decreased oral intake as on BiPAP. Monitor daily weight closely for signs of fluid overload. Recheck labs in AM to monitor blood counts, electrolytes and renal function. Patient wishes to maintain FULL CODE status. Upon discharge, patient's care will be returned to his PCP, Dr. Odom. 05/18/17 Don reports that his breathing is a little better today and is he is more alert. New cough with sputum production. 1 of the 2 blood cultures obtained on admission is POSITIVE for Streptococcus. Night telehospitalist was notified and Rocephin 2g IV Q24 hours was initiated for antimicrobial coverage. Given new cough, will try and obtain a sputum culture. Mucinex for mucolytic effect. Ricola for cough. Continue respiratory care including nebulized treatments. Continue to encourage BiPAP as indicated and supplemental oxygen to maintain SAO2 between 90 -95%. Wean oxygen to baseline of 5L as able. Given sudden onset of dyspnea, CT angio chest was obtained and revealed no PE but did note 2.2cm left lower lobe pulmonary nodule raising concern for primary lung malignancy and recommended further evaluation. Will discuss consideration of pulmonary consult for further evaluation. Continue Solu-Medrol 125mg IV Q6 hours. Anticipate initiation of tapering in near future. Blood sugars remain elevated, most likely steroid effect, ranging from 160's-> 200. Continue sliding scale insulin. Given recent CT with contrast, will hold metformin and restart 05/19/17. Continue NS at 75cc/hr for hydration. Monitor urinary output and daily weight closely for signs of fluid over load. Oral intake is good. Consider discontinuation of fluids this afternoon. Ativan as needed for anxiety and agitation while on BiPAP. Troponins continue to trend up slowing - 0.015, 0.017, 0.029, 0.045 and 0.048 this morning. Will recheck troponin at 1030 and continue to monitor closely on telemetry. Patient denies chest pain. SCDs for DVT prophylaxis. Recheck labs in AM to monitor blood counts, electrolytes and renal function. Discussed at length with patient and family the importance of smoking cessation. He admits to wanting to stop smoking and inquired about initiation of Chantix. Continue Wellbutrin for smoking cessation. With BC positive and starting IV antibiotics, will change admission status to inpatient. Anticipate greater than 2 midnights of care needed. 05/19/17 Continue with Rocephin for antimicrobial coverage. With lungs still very tight and congested, will continue with Solu-Medrol 125mg IV q 6 hours. Continue Neb treatments and acapella. Encourage use of BiPAP as much as able to help his chronic hypercapnea. Stressed with about the importance of him not smoking. She understand. Will consult with Dr Ashby for pulm evaluation. Will discontinue IVF. May restart metformin this evening. Sugars with elevation secondary to steroids. Did give Diamox 500mg x1 this am for fluid motivation and to help minimize contraction alkalosis. PT/OT to evaluate and initiate treatment tomorrow for his significant pulmonary debility. 05/20 Continue with Rocephin for antimicrobial coverage. One blood culture was positive with streptococcus Viridans, Repeat BC were drawn this morning. Scheduled breathing tx, IV solu-medrol, as well as oxygen and Bipap Appreciate Dr Ashby consultation. Likely require bronchoscopy for biopsy of lung mass. Continue to monitor BGM remain elevated. Metformin was resumed as well as sliding scale insulin. Encourage PT/OT for strengthening 05/21 Resp failure --> ABG shows resp acidosis and he was placed on BiPAP with improvement in color. Repeat ABG shows pH 7.12, pCO2 106, pO2 185. CXR ordered. BG 230. Chest pain --> EKG shows ST changes and widened QRS, poss a-flutter; troponin pending. Dr. Govea consulted. He's had 2 NTG but remains very hypertensive with SBP 220s. Pt failed to respond to adenosine, and subseqently was cardioverted with conversion to sinus tach. Rapid response activated and Dr. Ramírez was at bedside x20 min. Transferred to CCU, where pt was met by Dr. Govea for evaluation. Continue treatment for resp status including steroids and Rocephin. 05/22 Patient remains on a ventilator requiring continuous sedation. Oxygenation borderline on 40% FiO2-oxygen flow increased to 60% by pulmonary earlier today. Continue triple antibiotics (cefepime, Levaquin, vancomycin) pending sputum culture due to extensive pneumonia on CT/chest x-ray yesterday-not present on initial films. Peak troponin 3.09 with diffuse T-wave changes; discussed with Dr. Govea and will require cardiac catheterization in the future. Continue heparin drip. Blood pressure is uncontrolled-clonidine patch initiated earlier, IV hydralazine added as needed for systolic pressures above 180. OG placed-resume statin, SSRI, atenolol, and aspirin. Assess gastric residuals today-anticipate beginning tube feedings tomorrow. Adequate urine output, continue to monitor. Blood sugars remain elevated, off metformin at present. Increase basal insulin. 05/23 Patient remains on a ventilator requiring continuous sedation. Continue triple antibiotics (cefepime, Levaquin, vancomycin); suspect aspiration pneumonia-sputum culture normal charly. Extensive infiltrates on CT chest. Repeat chest x-ray in a.m. Fluid balance positive-roughly 5 L over several days, weight up-diuresis today. Potassium supplemented IV earlier today. Peak troponin 3.09 with diffuse T-wave changes; discussed with Dr. Govea and will require cardiac catheterization in the future. Continue heparin drip. Blood pressure remains elevated but improved from yesterday with addition of clonidine patch and resumption of atenolol per OG. IV hydralazine available as needed for systolic pressures above 180. OG placed 05/22-low volume gastric output overnight and tolerating medications per OG. Will initiate tube feedings with low glycemic formula at 20 mL per hour overnight. Nutrition consult. Blood sugars remain elevated, off metformin at present and on steroids. Increase basal insulin to 40 units anticipating further increase in blood sugar with initiation of tube feedings. 05/24 Remains ventilator dependent. Steroids decreased. Vancomycin discontinued, continue Levaquin and cefepime for probable aspiration pneumonia and Streptococcus viridans positive blood culture. Continue diuresis, blood pressures elevated-atenolol increased and lisinopril initiated to improve control. Tolerating tube feedings at low-volume, converted pulmonary formula with goal of 80 mL per hour. Platelet count dropping, heparin discontinued and bivalirudin initiated. 05/25 Tolerating spontaneous breathing trial, steroids decreased. Continues to require continuous sedation. Lisinopril increased to 20 mg to improve blood pressure control. Platelet count down to 100K; HIT Ab pending. Fevers overnight without evidence source, leukocytosis/left shift resolved improved. Lines to be cultured. 05/26 FiO2 titrated to 40%; diuresing well-continue same. Spontaneous breathing trial planned for the morning with possible extubation at that time. Cardiac status stable, no further tachyarrhythmias. Trend to improved blood pressures. Cardiac catheterization planned in the future. Remains on bivalirudin. Platelet count 86K today, HIT Ab pending. Tube feedings at goal, blood sugars significantly elevated-NovoLog scheduled every 6 hours and when necessary. Chest x-ray improved, remains on Levaquin and cefepime for probable aspiration pneumonia. Blood cultures drawn yesterday negative thus far. 05/27 Extubated this afternoon, OG discontinued in conjunction with extubation. CPAP initiated for respiratory support. Speech therapy, PT, OT consultations tomorrow. Anticipate significant reduction in fluid volume off sedating medications and tube feedings--> Lasix dose decreased to twice daily administration. Platelet count stabilizing, HIT Ab negative. Intermittent fever, remains on antibiotics for possible aspiration pneumonia. Repeat blood cultures negative.
--- NOTE | 2017-05-27 16:06 | Cardiology Progress Note ---
<Andreina Grijalva - Last Filed: 05/28/17 07:48> Subjective Principal diagnosis: SOB, respiratory failure Interval history: Howard is seen in follow up for chest pain and NSTEMI. He is extubated and wearing his home c pap. His is at the bedside and we discussed with her the need for heart cath as soon as possible. Chaz does not respond. Exam Vital signs: Temperature 99.2 F 05/27/17 12:00 Pulse Rate 80 05/27/17 14:56 Respiratory Rate 22 05/27/17 14:59 Blood Pressure 134/63 05/27/17 13:00 Pulse Oximetry 95 05/27/17 14:59 - Constitutional no acute distress, morbidly obese - Routine HEENT Exam Head: Present: normocephalic ENT: Present: mucous membranes moist - Routine Neck Exam Absent: JVD, carotid bruit - Routine Respiratory Exam Present: decreased breath sounds (anteriorly) - Routine Cardiovascular Exam Present: RRR, no murmur. Absent: JVD - Routine Abdominal Exam Present: soft - Routine Extremities Exam Present: edema - Routine Skin Exam Present: intact, dry, warm - Additional findings Additional findings: Acetaminophen (Tylenol) 325 - 650 mg PO Q5H PRN PRN Reason: Discomfort Last Admin: 05/26/17 20:58 Dose: 650 mg Acetaminophen (Tylenol Supp) 650 mg MT Q5H PRN PRN Reason: Pain Hydrocodone Bitart/Acetaminophen ([place] 7.5/325) 1 tab PO BID [facility] Last Admin: 05/21/17 10:54 Dose: Not Given Hydrocodone Bitart/Acetaminophen ([place] 7.5/325) 1 tab PO Q6H PRN PRN Reason: Pain Albuterol/Ipratropium (Duoneb) 3 ml AEROSOL RTQID PRN Albuterol/Ipratropium (Duoneb) 3 ml AEROSOL Q4H [facility] Last Admin: 05/27/17 14:55 Dose: 3 ml Amlodipine Besylate (Norvasc) 10 mg PO DAILY [facility] Last Admin: 05/27/17 09:12 Dose: 10 mg Aspirin (Asa) 81 mg GT DAILY [facility] Last Admin: 05/27/17 09:12 Dose: 81 mg Atenolol (Tenormin) 50 mg PO DAILY [facility] Last Admin: 05/27/17 09:12 Dose: 50 mg Benzocaine (Cepacol Sore Throat Lozenge) 1 lozenge MM Q2HR PRN PRN Reason: Sore throat Bisacodyl (Dulcolax) 10 mg RECTALLY DAILY PRN PRN Reason: Constipation Budesonide (Pulmicort Inhalation) 0.5 mg AEROSOL RTBID [facility] Last Admin: 05/27/17 07:03 Dose: 0.5 mg Bupropion HCl (Wellbutrin Sr) 150 mg PO BID [facility] Last Admin: 05/21/17 10:52 Dose: Not Given Citalopram Hydrobromide (Celexa) 40 mg PO DAILY [facility] Last Admin: 05/27/17 09:12 Dose: 40 mg Clonidine HCl (Catapres-Tts 1) 0.1 mg TD Q7D@0900 [facility] Last Admin: 05/22/17 09:51 Dose: 0.1 mg Clonidine HCl (Catapres Patch Removal) 1 removal TD Q7D [facility] Furosemide (Lasix) 20 mg IVP Q12H [facility] Gabapentin (Neurontin) 300 mg PO TID [facility] Last Admin: 05/21/17 15:49 Dose: Not Given Glucose (Glutose 15) 37.5 gm PO PRN PRN PRN Reason: Hypoglycemia Guaifenesin (Mucinex La) 1,200 mg PO BID [facility] Last Admin: 05/21/17 10:53 Dose: Not Given Hydralazine HCl (Apresoline) 10 mg IVP Q4H PRN PRN Reason: Hypertension Last Admin: 05/26/17 07:06 Dose: 10 mg Fentanyl 1,000 mcg/ Sodium (Chloride) 100 mls @ 0 mls/hr IV .Q0M PRN; Per Protocol PRN Reason: Protocol Last Titration: 05/27/17 07:00 Dose: 15 mls/hr, 15 mls/hr Cefepime HCl 1 gm/ Sodium (Chloride) 50 mls @ 100 mls/hr IV Q6H [facility] Last Infusion: 05/27/17 09:44 Dose: Infused Levofloxacin/Dextrose (Levaquin Premix) 750 mg in 150 mls @ 100 mls/hr IV Q24H [facility] Last Infusion: 05/26/17 17:10 Dose: Infused Dexmedetomidine HCl 1,000 mcg/ (Sodium Chloride) 260 mls @ 6.87 mls/hr IV .Q24H PRN; 0.2 MCG/KG/HR PRN Reason: Protocol Last Titration: 05/27/17 07:00 Dose: 1.25 mcg/kg/hr, 43 mls/hr Bivalirudin 250 mg/ Sodium (Chloride) 500 mls @ 43.2 mls/hr IV .[id number] [facility] Last Infusion: 05/27/17 07:00 Dose: 43.2 mls/hr Insulin Aspart (Novolog) 2 - 14 unit SQ SS PRN; Protocol PRN Reason: Hyperglycemia Last Admin: 05/27/17 06:14 Dose: 10 unit Insulin Glargine (Lantus) 40 unit SQ HS [facility] Last Admin: 05/26/17 20:53 Dose: 40 unit Lisinopril (Prinivil) 10 mg PO DAILY [facility] Last Admin: 05/27/17 09:12 Dose: 10 mg Lorazepam (Ativan Inj) 1 mg IVP Q2H PRN PRN Reason: Agitation/Air hunger/Pain Last Admin: 05/26/17 05:02 Dose: 1 mg Menthol (Ricola Sf) 1 lozenge MM PRN PRN PRN Reason: Cough Metformin HCl (Glucophage) 500 mg PO BIDWM [facility] Last Admin: 05/21/17 10:52 Dose: Not Given Methylprednisolone Sodium Succinate (Solu-Medrol) 80 mg IVP Q12HR [facility] Last Admin: 05/27/17 09:13 Dose: 80 mg Metoclopramide HCl (Reglan) 5 mg GT Q6H [facility] Last Admin: 05/27/17 12:03 Dose: 5 mg Nitroglycerin (Nitrostat) 0.4 mg SL Q5MIN3 PRN PRN Reason: CP Last Admin: 05/21/17 08:35 Dose: 0.4 mg --Pom--(Itraconazole [Itraconazole] 200 Mg) 200 mg PO BID [facility] Last Admin: 05/21/17 10:56 Dose: Not Given Omeprazole (Prilosec) 40 mg PO ACB [facility] Last Admin: 05/21/17 06:27 Dose: 40 mg Ondansetron HCl (Zofran) 4 mg IVP Q6H PRN PRN Reason: Nausea &/or vomiting Last Admin: 05/19/17 02:45 Dose: 4 mg Pantoprazole Sodium (Protonix Iv) 40 mg IVP DAILY [facility] Last Admin: 05/27/17 09:12 Dose: 40 mg Potassium Chloride (Kcl Oral Liq 20 Meq/15 Ml) 40 meq PO BIDWM [facility] Simvastatin (Zocor) 20 mg PO HS [facility] Last Admin: 05/26/17 20:58 Dose: 20 mg Sodium Chloride (Iv Flush) 10 - 80 ml IVF PRN PRN PRN Reason: Flushing Last Admin: 05/27/17 01:31 Dose: 50 ml Sodium Chloride ([place] Nasal [employer]ist[employer] [place]) 1 spray EA NOSTRIL PRN PRN PRN Reason: Congestion Last Admin: 05/19/17 16:37 Dose: 1 spray Sodium Chloride (Normal Saline) 500 ml IV PRN PRN Last Admin: 05/25/17 21:52 Dose: 500 ml - Urinary Catheter Management Urethral Cath placed during this visit: yes Insertion date: 05/21/17 Results 05/28/17 04:00 05/28/17 04:00 CBC 05/27/17 Range/Units 03:54 WBC 11.4 H (4.5-11.0) T/MM3 RBC 4.16 L (4.50-5.90) M/MM3 Hgb 12.4 L (13.5-17.5) GM/DL Hct 41.4 (41-53) % Plt Count 90 L (130-400) T/MM3 Neut # (Auto) Not performed Lymph # (Auto) Not performed [place] # (Auto) Not performed Eos # (Auto) Not performed Baso # (Auto) Not performed Comprehensive Metabolic Panel 05/27/17 Range/Units 03:55 Sodium 144 (134-144) MEQ/L Potassium 4.5 (3.6-5) MEQ/L Chloride 103 (98-107) MEQ/L Carbon Dioxide 36 H (22-30) MEQ/L BUN 37.0 H (9-20) MG/DL Creatinine 0.7 L (0.8-1.5) MG/DL Glucose 348 H (75-110) MG/DL Calcium 7.5 L (8.4-10.2) MG/DL Intake and Output 05/27/17 05/27/17 05/27/17 06:59 14:59 22:59 Intake Total 1514.590 / 1514.590 886.183 / 886.183 Output Total 1974 1625 / 1625 Balance -460.410 / -460.410 -738.817 / -738.817 Intake: IV 714.590 / 714.590 146.183 / 146.183 Bivalirudin 250 mg In NS 500ml 303.84 / 303.84 43.2 / 43.2 500 ml @ 43.2 mls/hr IV . [id number] [facility] Rx#:[id number] Cefepime 1 gm In Ns 50 ml @ 100 50.000 / 50.000 50 / 50 mls/hr IV Q6H [facility] Rx#: [id number] Dexmedetomidine 1,000 mcg In NS 260.000 / 260.000 37.983 / 37.983 250ml 250 ml @ 0.2 MCG/KG/HR 6 .87 mls/hr IV .Q24H PRN Rx#: [id number] FentaNYL 1,000 mcg In Ns 80 ml 100.750 / 100.750 15 / 15 @ Per Protocol IV .Q0M PRN Rx#: [id number] Tube Feeding 640 / 640 640 / 640 Oral 640 / 640 640 / 640 Intake, Gastric Tube Irrigant 160 / 160 100 / 100 Amount Oral 160 / 160 100 / 100 Output: Urine Amount (Catheter) 1974 1625 / 1625 Other: Urine Appearance Clear Clear Urine Color Yellow Yellow Weight 313 lb 4.43 oz Patient Weight 05/28/17 06:59 Weight 313 lb 4.43 oz Assessment and Plan - Assessment and Plan (1) Chest pain Current visit: Yes Status: Acute (2) Community acquired pneumonia Current visit: No Status: Acute (3) Acute and chronic respiratory failure with hypercapnia Current visit: Yes Status: Acute (4) Atherosclerotic heart disease of [place] coronary artery without angina pectoris Current visit: Yes Status: Chronic (5) Essential (primary) hypertension Current visit: Yes Status: Chronic (6) Type 2 diabetes mellitus without complications Current visit: Yes Status: Chronic (7) Obesity (BMI 30-39.9) Current visit: Yes Status: Chronic (8) ANGELLA (obstructive sleep apnea) Current visit: Yes Status: Chronic (9) NSTEMI (non-ST elevated myocardial infarction) Current visit: Yes Status: Acute - Assessment and Plan 05/21/17 Reportedly had severe chest pain, was johnson and diaphoretic as well as tachypneic followed by decreased LOC. - HR 140s, sinus tach vs. A flutter - Given Adenosine 6mg IVP, followed by 12mg X2 without slowing HR. - Sedation given and attempted DCCV which was unsuccessful. - Following 2nd dose of Metoprolol 5mg IV heart rate slowed enough to confirm it is Sinus tachycardia. - Repeat EKG obtained, started on Heparin drip. - Trend Troponin - 2D echo - CTA for emboli/ dissection 05/22/17 NSTEMI: - Troponin: 1) 0.015, 2) 1.500, 3) 3.090, 4) 2.100 - EKG: SR, anterolateral ischemia V3-V6, inferior ischemia II/aVf - Left heart cath when more stable - Continue Heparin drip. HTN: Catapress TTS 1 patch while NPO - Hydralazine prn as ordered - Labetalol prn, hold HR <65 05/23/17 BP improving - EKG now please 05/24/17 Stop Heparin drip, get HIT panel Spoke with pharmacy, start Angiomax at 0.15mg/kg/hr (21.6mg/hr) until HIT panel resulted. Continues to have ST depression on Telemetry and EKG. Add Amlodipine 10mg per OG tube for better BP control 05/27/17 - Plan left heart cath with possible PCI in the am - Stop Angiomax drip - Give Lovenox 1mg/kg SQ tonight - Watch platelets closely Thank you for allowing us to participate in the care of this patient, we will follow along with you. Hospital Course Summary Disclaimer: The visit summary below is not to be considered part of the above Progress Note. Hospital Course: 05/17/17 Admission Admit to observation status under the care of Dr. Lopez. Sepsis work up initiated in ED. Patient meeting SIRS criteria based on tachycardia, tachypnea and reported fevers at home without obvious source. Initial lactate was 1.4 with repeat lactate decreased to 0.9. Blood cultures pending. WBC stable at 5.0. CXR revealed left basilar scarring without focal pneumonia. Respiratory panel was negative. Patient was given DuoNeb treatments and Solu-Medrol 125mg IV in ED. Will continue respiratory care with DuoNeb treatments QID and Q6H PRN as well as Solu -Medrol 125mg IV Q6H. History of diabetes with A1c on 04/17/17 at 6.4%. Continue home medications and monitor blood sugars closely given treatment with steroids. Sliding scale insulin as indicated for hyperglycemia. Patient was placed on BiPAP in ED with improvement. Continue BiPAP as indicated. Ativan as needed for anxiety and agitation while on BiPAP. Will monitor closely on telemetry with continuous pulse oximetry. Oxygen as needed to maintain SAO2 between 90-95%, weaning as able to baseline of 5L. SCDs for DVT prophylaxis. Given sudden onset of dyspnea, will obtain CT angio chest for further evaluation of PE - results pending. NS at 100cc/hr for hydration given decreased oral intake as on BiPAP. Monitor daily weight closely for signs of fluid overload. Recheck labs in AM to monitor blood counts, electrolytes and renal function. Patient wishes to maintain FULL CODE status. Upon discharge, patient's care will be returned to his PCP, Dr. Odom. 05/18/17 Don reports that his breathing is a little better today and is he is more alert. New cough with sputum production. 1 of the 2 blood cultures obtained on admission is POSITIVE for Streptococcus. Night telehospitalist was notified and Rocephin 2g IV Q24 hours was initiated for antimicrobial coverage. Given new cough, will try and obtain a sputum culture. Mucinex for mucolytic effect. Ricola for cough. Continue respiratory care including nebulized treatments. Continue to encourage BiPAP as indicated and supplemental oxygen to maintain SAO2 between 90 -95%. Wean oxygen to baseline of 5L as able. Given sudden onset of dyspnea, CT angio chest was obtained and revealed no PE but did note 2.2cm left lower lobe pulmonary nodule raising concern for primary lung malignancy and recommended further evaluation. Will discuss consideration of pulmonary consult for further evaluation. Continue Solu-Medrol 125mg IV Q6 hours. Anticipate initiation of tapering in near future. Blood sugars remain elevated, most likely steroid effect, ranging from 160's-> 200. Continue sliding scale insulin. Given recent CT with contrast, will hold metformin and restart 05/19/17. Continue NS at 75cc/hr for hydration. Monitor urinary output and daily weight closely for signs of fluid over load. Oral intake is good. Consider discontinuation of fluids this afternoon. Ativan as needed for anxiety and agitation while on BiPAP. Troponins continue to trend up slowing - 0.015, 0.017, 0.029, 0.045 and 0.048 this morning. Will recheck troponin at 1030 and continue to monitor closely on telemetry. Patient denies chest pain. SCDs for DVT prophylaxis. Recheck labs in AM to monitor blood counts, electrolytes and renal function. Discussed at length with patient and family the importance of smoking cessation. He admits to wanting to stop smoking and inquired about initiation of Chantix. Continue Wellbutrin for smoking cessation. With BC positive and starting IV antibiotics, will change admission status to inpatient. Anticipate greater than 2 midnights of care needed. 05/19/17 Continue with Rocephin for antimicrobial coverage. With lungs still very tight and congested, will continue with Solu-Medrol 125mg IV q 6 hours. Continue Neb treatments and acapella. Encourage use of BiPAP as much as able to help his chronic hypercapnea. Stressed with about the importance of him not smoking. She understand. Will consult with Dr Ashby for pulm evaluation. Will discontinue IVF. May restart metformin this evening. Sugars with elevation secondary to steroids. Did give Diamox 500mg x1 this am for fluid motivation and to help minimize contraction alkalosis. PT/OT to evaluate and initiate treatment tomorrow for his significant pulmonary debility. 05/20 Continue with Rocephin for antimicrobial coverage. One blood culture was positive with streptococcus Viridans, Repeat BC were drawn this morning. Scheduled breathing tx, IV solu-medrol, as well as oxygen and Bipap Appreciate Dr Ashby consultation. Likely require bronchoscopy for biopsy of lung mass. Continue to monitor BGM remain elevated. Metformin was resumed as well as sliding scale insulin. Encourage PT/OT for strengthening 05/21 Resp failure --> ABG shows resp acidosis and he was placed on BiPAP with improvement in color. Repeat ABG shows pH 7.12, pCO2 106, pO2 185. CXR ordered. BG 230. Chest pain --> EKG shows ST changes and widened QRS, poss a-flutter; troponin pending. Dr. Govea consulted. He's had 2 NTG but remains very hypertensive with SBP 220s. Pt failed to respond to adenosine, and subseqently was cardioverted with conversion to sinus tach. Rapid response activated and Dr. Ramírez was at bedside x20 min. Transferred to CCU, where pt was met by Dr. Govea for evaluation. Continue treatment for resp status including steroids and Rocephin. 05/22 Patient remains on a ventilator requiring continuous sedation. Oxygenation borderline on 40% FiO2-oxygen flow increased to 60% by pulmonary earlier today. Continue triple antibiotics (cefepime, Levaquin, vancomycin) pending sputum culture due to extensive pneumonia on CT/chest x-ray yesterday-not present on initial films. Peak troponin 3.09 with diffuse T-wave changes; discussed with Dr. Govea and will require cardiac catheterization in the future. Continue heparin drip. Blood pressure is uncontrolled-clonidine patch initiated earlier, IV hydralazine added as needed for systolic pressures above 180. OG placed-resume statin, SSRI, atenolol, and aspirin. Assess gastric residuals today-anticipate beginning tube feedings tomorrow. Adequate urine output, continue to monitor. Blood sugars remain elevated, off metformin at present. Increase basal insulin. 05/23 Patient remains on a ventilator requiring continuous sedation. Continue triple antibiotics (cefepime, Levaquin, vancomycin); suspect aspiration pneumonia-sputum culture normal charly. Extensive infiltrates on CT chest. Repeat chest x-ray in a.m. Fluid balance positive-roughly 5 L over several days, weight up-diuresis today. Potassium supplemented IV earlier today. Peak troponin 3.09 with diffuse T-wave changes; discussed with Dr. Govea and will require cardiac catheterization in the future. Continue heparin drip. Blood pressure remains elevated but improved from yesterday with addition of clonidine patch and resumption of atenolol per OG. IV hydralazine available as needed for systolic pressures above 180. OG placed 05/22-low volume gastric output overnight and tolerating medications per OG. Will initiate tube feedings with low glycemic formula at 20 mL per hour overnight. Nutrition consult. Blood sugars remain elevated, off metformin at present and on steroids. Increase basal insulin to 40 units anticipating further increase in blood sugar with initiation of tube feedings. 05/24 Remains ventilator dependent. Steroids decreased. Vancomycin discontinued, continue Levaquin and cefepime for probable aspiration pneumonia and Streptococcus viridans positive blood culture. Continue diuresis, blood pressures elevated-atenolol increased and lisinopril initiated to improve control. Tolerating tube feedings at low-volume, converted pulmonary formula with goal of 80 mL per hour. Platelet count dropping, heparin discontinued and bivalirudin initiated. 05/25 Tolerating spontaneous breathing trial, steroids decreased. Continues to require continuous sedation. Lisinopril increased to 20 mg to improve blood pressure control. Platelet count down to 100K; HIT Ab pending. Fevers overnight without evidence source, leukocytosis/left shift resolved improved. Lines to be cultured. 05/26 FiO2 titrated to 40%; diuresing well-continue same. Spontaneous breathing trial planned for the morning with possible extubation at that time. Cardiac status stable, no further tachyarrhythmias. Trend to improved blood pressures. Cardiac catheterization planned in the future. Remains on bivalirudin. Platelet count 86K today, HIT Ab pending. Tube feedings at goal, blood sugars significantly elevated-NovoLog scheduled every 6 hours and when necessary. Chest x-ray improved, remains on Levaquin and cefepime for probable aspiration pneumonia. Blood cultures drawn yesterday negative thus far. 05/27 Extubated this afternoon, OG discontinued in conjunction with extubation. CPAP initiated for respiratory support. Speech therapy, PT, OT consultations tomorrow. Anticipate significant reduction in fluid volume off sedating medications and tube feedings--> Lasix dose decreased to twice daily administration. Platelet count stabilizing, HIT Ab negative. Intermittent fever, remains on antibiotics for possible aspiration pneumonia. Repeat blood cultures negative. <Francis Govea - Last Filed: 05/28/17 07:59> Exam Vital signs: Temperature 97.7 F 05/28/17 02:59 Pulse Rate 88 05/28/17 06:06 Respiratory Rate 27 H 05/28/17 06:35 Blood Pressure 187/83 H 05/28/17 06:06 Pulse Oximetry 92 05/28/17 06:35 - Urinary Catheter Management Urethral Cath placed during this visit: no Results 05/28/17 04:00 05/28/17 04:00 Cardiac Enzymes 05/27/17 05/28/17 Range/Units 03:55 04:00 AST 24 D (17-59) U/L Troponin I 0.135 H (0-0.12) ng/ml CBC 05/28/17 Range/Units 04:00 WBC 19.3 H D (4.5-11.0) T/MM3 RBC 4.78 (4.50-5.90) M/MM3 Hgb 14.3 D (13.5-17.5) GM/DL Hct 47.3 D (41-53) % Plt Count 133 D (130-400) T/MM3 Neut # (Auto) Not performed Lymph # (Auto) Not performed [place] # (Auto) Not performed Eos # (Auto) Not performed Baso # (Auto) Not performed Comprehensive Metabolic Panel 05/28/17 Range/Units 04:00 Sodium 148 H (134-144) MEQ/L Potassium 4.6 (3.6-5) MEQ/L Chloride 103 (98-107) MEQ/L Carbon Dioxide 39 H (22-30) MEQ/L BUN 39.0 H (9-20) MG/DL Creatinine 0.6 L (0.8-1.5) MG/DL Glucose 236 H (75-110) MG/DL Calcium 8.0 L (8.4-10.2) MG/DL AST 24 D (17-59) U/L ALT 125 H (21-72) U/L Alkaline Phosphatase 78 D (38-126) U/L Total Protein 5.9 L (6.3-8.2) G/DL Albumin 3.2 L (3.5-5.0) G/DL Intake and Output 05/27/17 05/28/17 05/28/17 22:59 06:59 14:59 Intake Total 359.76 / 359.76 50 / 50 Output Total 1935 / 1935 870 / 870 130 / 130 Balance -1575.24 / -1575.24 -820 / -820 -130 / -130 Intake: IV 359.76 / 359.76 50 / 50 Bivalirudin 250 mg In NS 500ml 109.76 / 109.76 500 ml @ 43.2 mls/hr IV . [id number] [facility] Rx#:[id number] Cefepime 1 gm In Ns 50 ml @ 100 100 / 100 50 / 50 mls/hr IV Q6H [facility] Rx#: [id number] Levofloxacin Pb 750 mg In 150 150 / 150 ml @ 100 mls/hr IV Q24H [facility] Rx# :[id number] Output: Urine 175 / 175 Urine Amount (Catheter) 1760 / 1760 870 / 870 130 / 130 Other: Urine Appearance Clear Urine Color Yellow Assessment and Plan - Assessment and Plan (1) Community acquired pneumonia Current visit: No Status: Acute (2) Acute and chronic respiratory failure with hypercapnia Current visit: Yes Status: Acute (3) Chest pain Current visit: Yes Status: Acute (4) Atherosclerotic heart disease of [place] coronary artery without angina pectoris Current visit: Yes Status: Chronic (5) Essential (primary) hypertension Current visit: Yes Status: Chronic (6) Type 2 diabetes mellitus without complications Current visit: Yes Status: Chronic (7) Obesity (BMI 30-39.9) Current visit: Yes Status: Chronic (8) ANGELLA (obstructive sleep apnea) Current visit: Yes Status: Chronic (9) NSTEMI (non-ST elevated myocardial infarction) Current visit: Yes Status: Acute - Attestation Attestation Narrative: 05/28/17 07:59 Recommendation After examining the patient I agree with the above assessment. I am involved in the formulation of the patient's plan of care. Hospital Course Summary Disclaimer: The visit summary below is not to be considered part of the above Progress Note.
[2017-05-27] MEDS: LEVOFLOXACIN PB 750 MG/150 ML BAG IV SCH (16:13)
[2017-05-27] MEDS: ENOXAPARIN 150 MG/ML INJECTION SQ SCH (18:39)
[2017-05-27] MEDS: INSULIN GLARGINE 100unit/ml INJECTION SQ SCH (20:06)
[2017-05-27] MEDS: SIMVASTATIN 20 MG TABLET PO SCH (20:36)
[2017-05-28] MEDS: CEFEPIME 1 GM in NS 50 ML IV SCH ×4 (03:10→20:49)
[2017-05-28] MEDS: ALBUTEROL/IPRATROPIUM 2.5mg-0.5mg/3ml NEB AEROSOL SCH ×6 (03:20→23:14)
[2017-05-28] MEDS: METOCLOPRAMIDE 10mg/10ml ORAL LIQUID GT SCH ×4 (05:39→23:20)
[2017-05-28] MEDS: INSULIN ASPART 100unit/ml INJECTION SQ PRN ×3 (05:48→23:32)
[2017-05-28] MEDS: HYDRALAZINE 20 MG/ML INJECTION IVP PRN (06:06)
[2017-05-28] MEDS: BUDESONIDE INH.SOLN 0.5mg/2ml NEB AEROSOL SCH ×2 (06:35→19:29)
[2017-05-28] MEDS ORDERED: MIDAZOLAM 2mg/2ml INJECTION ONE (07:41)
[2017-05-28] MEDS ORDERED: FentaNYL 100 MCG/2 ML INJECTION ONE (07:41)
[2017-05-28] MEDS ORDERED: Verapamil 5 MG/2 ML VIAL ONE (07:41)
[2017-05-28] MEDS ORDERED: NITROGLYCERIN 50MG INJECTION IV ONE (07:41)
[2017-05-28] MEDS ORDERED: HEPARIN 1,000unit/ml INJECTION 10ml ONE ×2 (07:42→08:45)
[2017-05-28] MEDS ORDERED: LIDOCAINE 1% (10mg/ml) 30ml SDV INJ ONE (07:42)
[2017-05-28] MEDS ORDERED: HEPARIN 1,000 UNITS/500 ML PREMIX (*CVL ONLY*) IV ONE (07:42)
[2017-05-28] MEDS ORDERED: NS 1,000 ML IV SCH (07:45)
[2017-05-28] MEDS ORDERED: TICAGRELOR 90 MG TABLET ONE (08:52)
[2017-05-28] MEDS ORDERED: ASPIRIN 81 MG CHEWABLE TABLET ONE (08:54)
--- NOTE | 2017-05-28 09:07 | XRay Report ---
Indication: f/u infiltrates PROCEDURE: XR chest 1V: Encounter: Initial Comparison: May 27, 2017 Findings: Endotracheal and nasogastric tubes have been removed. The left PICC line has changed in position with the tip now projecting over the azygos vein. Slight improvement in aeration of the lung bases with small left effusion. No pneumothorax. Heart size and mediastinal contours are stable. Pulmonary vascularity is normal. Impression: The left PICC line tip is now in the azygos vein. Recommend repositioning prior to usage. These results were called to the Ty Renner in the compounding assistant where the patient was for a procedure. .
[2017-05-28] MEDS ORDERED: MORPHINE SULFATE 4mg INJECTION IVP PRN (09:24)
[2017-05-28] MEDS ORDERED: MAG-AL + SIM ORAL LIQUID 30ml PO PRN (09:24)
[2017-05-28] MEDS ORDERED: METOCLOPRAMIDE 10mg/2ml INJECTION IVP PRN (09:24)
[2017-05-28] MEDS ORDERED: HYDROCODONE/APAP 5mg/325mg TABLET PO PRN (09:24)
[2017-05-28] MEDS ORDERED: PROMETHAZINE 25 MG INJECTION IVP PRN (09:24)
[2017-05-28] MEDS ORDERED: NITROGLYCERIN 0.4 MG SUBLINGUAL TABLET SL PRN (09:24)
[2017-05-28] MEDS ORDERED: ACETAMINOPHEN 325 MG TABLET PO PRN (09:24)
[2017-05-28] MEDS ORDERED: ATROPINE 1 MG/ML INJECTION IVP PRN (09:24)
[2017-05-28] MEDS ORDERED: BISACODYL 10 MG SUPPOSITORY RECTALLY PRN (09:24)
[2017-05-28] MEDS ORDERED: Bisacodyl EC TAB 5 MG TABLET PO PRN (09:24)
[2017-05-28] MEDS ORDERED: ONDANSETRON 4 MG/2 ML INJECTION IVP PRN (09:24)
[2017-05-28] MEDS: ENOXAPARIN 150 MG/ML INJECTION SQ SCH (09:34)
[2017-05-28] MEDS: FUROSEMIDE 20 MG/2 ML INJECTION IVP SCH ×2 (09:35→20:48)
[2017-05-28] MEDS: METHYLPREDNISOLONE SOD SUCC 125mg/2ml INJECTION IVP SCH ×2 (09:35→20:49)
[2017-05-28] MEDS: PANTOPRAZOLE 40 MG INJECTION IVP SCH (09:36)
[2017-05-28] MEDS: ASPIRIN *EC* 81 MG TABLET PO SCH (09:36)
[2017-05-28] MEDS ORDERED: METOPROLOL 5mg/5ml INJECTION IVP ONE (10:01)
--- NOTE | 2017-05-28 11:56 | XRay Report ---
Indication: feeding tube placement PROCEDURE: XR abdomen 1V: Encounter: Initial Comparison: None Findings/ Impression: Dobbhoff tube in place with the tip projecting over the pyloric region or possibly first portion of the duodenum. Visualized bowel gas pattern is nonobstructive and nonspecific. .
--- NOTE | 2017-05-28 11:56 | XRay Report ---
Indication: PICC PLACEMENT PROCEDURE: XR chest 1V: Encounter: Initial Comparison: May 28, 2017 at 0532 Findings: New Dobbhoff tube in place extending below the diaphragm, the tip is not included on this image. The left PICC line has been repositioned with the tip now projecting over the lower SVC. Lungs are stable. No pneumothorax. Heart size and mediastinal contours are stable. Impression: 1. Interval repositioning of the left PICC line which now projects over the lower SVC. 2. New Dobbhoff tube. .
--- NOTE | 2017-05-28 12:25 | Progress Note ---
- Date 05/28/17 Subjective: Patient extubated yesterday. He was seen by speech this am and failed. Went to heart cath this am, 2 stents were placed. Objective Vital signs: Temperature 98 F 05/28/17 09:30 Pulse Rate 101 H 05/28/17 10:31 Respiratory Rate 33 H 05/28/17 11:05 Blood Pressure 136/63 05/28/17 10:31 Pulse Oximetry 94 05/28/17 11:05 Rhythm: Normal Sinus Rhythm Height/Weight/BMI: Height 6 ft 0.83 in Weight 135.5 kg Body Mass Index 41.5 - Constitutional Present: no acute distress, obese - Routine HEENT Exam Eye: Present: EOMI ENT: Present: mucous membranes moist Comments: small but reactive pupils - Routine Respiratory Exam Present: distant breath sounds, diminished air movement - Routine Cardiovascular Exam Present: RRR - Routine Abdominal Exam Present: soft, normoactive bowel sounds Comments: obese - Routine Extremities Exam Comments: no edema, chronic venous stasis changes - Routine Musculoskeletal Exam Musculoskeletal: Present: no clubbing or cyanosis - Routine Skin Exam Present: intact, dry - Routine Neurological Exam opens eyes but does not communicate or follow commands at this time - Routine Psychiatric Exam Present: unable to assess Results - Labs CBC & Chem 7: 05/28/17 04:00 05/28/17 04:00 Microbiology Results: Microbiology 05/25/17 15:43 Port/Picc Blood Culture - Preliminary No Growth After 2 Days 05/25/17 15:49 Midline Blood Culture - Preliminary No Growth After 2 Days 05/20/17 04:36 Midline Blood Culture - Final No Growth After 5 Days 05/20/17 04:36 Midline Blood Culture - Final No Growth After 5 Days 05/21/17 13:45 Sputum, Expectorated Gram Stain - Final 05/21/17 13:45 Sputum, Expectorated Sputum Culture - Final Yeast, not C. albicans Normal Respiratory Charly - ABG Interpretation ABG results: 05/27/17 12:50 ABG pH 7.450 ABG pCO2 53 H ABG pO2 61 L ABG HCO3 36.8 H ABG Total CO2 38.4 H ABG O2 Saturation 92.0 L ABG Base Excess 11.0 H Assessment and Plan Assessment and Plan: Assessment Acute on chronic respiratory failure with hypercapnia and hypoxia - baseline home oxygen at 5L; intubated 05/21-extubated on 05/27 Leukocytosis Wide complex tachycardia; s/p cardioversion with return to sinus tach NSTEMI-peak troponin 3.09, diffuse T changes, s/p heart cath with 2 stents this am, ASA Thrombocytopenia-05/24/17 COPD exacerbation Bilateral lower lobe pneumonia-05/21/17 Bacteremia secondary to streptococcus viridans (1 of 2 BC from 05/17/17 positive) Hypokalemia-05/23/17 Recurrent fever-05/24/17 Transaminitis Chronic Medical: Cardiomyopathy-EF 30% by echo 05/21/17 Pulmonary nodule - Irregular 2.2cm left lower lobe pulmonary nodule Anemia, unspecified, stable Coronary Artery Disease Hypertension Sleep Apnea Diabetes Mellitus Type 2 - A1c on 04/17/17 was 6.4% GERD Osteoarthritis Peripheral neuropathy Fibromyalgia Depression Tobacco dependency Peripheral vascular disease Morbid obesity - BMI >40 Plan Extubated yesterday Placed on CPAP with home equipment. Baseline 5L, currently on 8L. CXR-stable, with increase in WBC, will trend and change abx if continuing to trend up. Suspect component of concentration as well as steroid effect. Cefepime and Levaquin currently. Vanc discontinued 05/24 Failed speech therapy, will place dobhoff. Restart tube feedings and stop IVF Monitor fluid status today, appears concentrated overnight but received a lot of fluids this am. Peak troponin 3.09 on 05/21/17 with diffuse T-wave changes; heart cath this am- now on ASA and Bivalirudin Monitor platelet count Monitor BP, adjust medications as needed Monitor glucose. Will Schedule short acting insulin since continuing tube feedings. Continue basal insulin and corrective scale. AST and ALT both elevated, likely due to hypoxic insult. Continue to monitor intermittently. No further tachyarrhythmias. Discussed with nursing staff, . Resuscitation Status: Full Code - Physician Narrative Physician: other (Amber Benitez MD) Narrative: Date: 05/28/17 Time: 1221 Hospital Course Summary Disclaimer: The visit summary below is not to be considered part of the above Progress Note. Hospital Course: 05/17/17 Admission Admit to observation status under the care of Dr. Lopez. Sepsis work up initiated in ED. Patient meeting SIRS criteria based on tachycardia, tachypnea and reported fevers at home without obvious source. Initial lactate was 1.4 with repeat lactate decreased to 0.9. Blood cultures pending. WBC stable at 5.0. CXR revealed left basilar scarring without focal pneumonia. Respiratory panel was negative. Patient was given DuoNeb treatments and Solu-Medrol 125mg IV in ED. Will continue respiratory care with DuoNeb treatments QID and Q6H PRN as well as Solu -Medrol 125mg IV Q6H. History of diabetes with A1c on 04/17/17 at 6.4%. Continue home medications and monitor blood sugars closely given treatment with steroids. Sliding scale insulin as indicated for hyperglycemia. Patient was placed on BiPAP in ED with improvement. Continue BiPAP as indicated. Ativan as needed for anxiety and agitation while on BiPAP. Will monitor closely on telemetry with continuous pulse oximetry. Oxygen as needed to maintain SAO2 between 90-95%, weaning as able to baseline of 5L. SCDs for DVT prophylaxis. Given sudden onset of dyspnea, will obtain CT angio chest for further evaluation of PE - results pending. NS at 100cc/hr for hydration given decreased oral intake as on BiPAP. Monitor daily weight closely for signs of fluid overload. Recheck labs in AM to monitor blood counts, electrolytes and renal function. Patient wishes to maintain FULL CODE status. Upon discharge, patient's care will be returned to his PCP, Dr. Odom. 05/18/17 Don reports that his breathing is a little better today and is he is more alert. New cough with sputum production. 1 of the 2 blood cultures obtained on admission is POSITIVE for Streptococcus. Night telehospitalist was notified and Rocephin 2g IV Q24 hours was initiated for antimicrobial coverage. Given new cough, will try and obtain a sputum culture. Mucinex for mucolytic effect. Ricola for cough. Continue respiratory care including nebulized treatments. Continue to encourage BiPAP as indicated and supplemental oxygen to maintain SAO2 between 90 -95%. Wean oxygen to baseline of 5L as able. Given sudden onset of dyspnea, CT angio chest was obtained and revealed no PE but did note 2.2cm left lower lobe pulmonary nodule raising concern for primary lung malignancy and recommended further evaluation. Will discuss consideration of pulmonary consult for further evaluation. Continue Solu-Medrol 125mg IV Q6 hours. Anticipate initiation of tapering in near future. Blood sugars remain elevated, most likely steroid effect, ranging from 160's-> 200. Continue sliding scale insulin. Given recent CT with contrast, will hold metformin and restart 05/19/17. Continue NS at 75cc/hr for hydration. Monitor urinary output and daily weight closely for signs of fluid over load. Oral intake is good. Consider discontinuation of fluids this afternoon. Ativan as needed for anxiety and agitation while on BiPAP. Troponins continue to trend up slowing - 0.015, 0.017, 0.029, 0.045 and 0.048 this morning. Will recheck troponin at 1030 and continue to monitor closely on telemetry. Patient denies chest pain. SCDs for DVT prophylaxis. Recheck labs in AM to monitor blood counts, electrolytes and renal function. Discussed at length with patient and family the importance of smoking cessation. He admits to wanting to stop smoking and inquired about initiation of Chantix. Continue Wellbutrin for smoking cessation. With BC positive and starting IV antibiotics, will change admission status to inpatient. Anticipate greater than 2 midnights of care needed. 05/19/17 Continue with Rocephin for antimicrobial coverage. With lungs still very tight and congested, will continue with Solu-Medrol 125mg IV q 6 hours. Continue Neb treatments and acapella. Encourage use of BiPAP as much as able to help his chronic hypercapnea. Stressed with about the importance of him not smoking. She understand. Will consult with Dr Ashby for pulm evaluation. Will discontinue IVF. May restart metformin this evening. Sugars with elevation secondary to steroids. Did give Diamox 500mg x1 this am for fluid motivation and to help minimize contraction alkalosis. PT/OT to evaluate and initiate treatment tomorrow for his significant pulmonary debility. 05/20 Continue with Rocephin for antimicrobial coverage. One blood culture was positive with streptococcus Viridans, Repeat BC were drawn this morning. Scheduled breathing tx, IV solu-medrol, as well as oxygen and Bipap Appreciate Dr Ashby consultation. Likely require bronchoscopy for biopsy of lung mass. Continue to monitor BGM remain elevated. Metformin was resumed as well as sliding scale insulin. Encourage PT/OT for strengthening 05/21 Resp failure --> ABG shows resp acidosis and he was placed on BiPAP with improvement in color. Repeat ABG shows pH 7.12, pCO2 106, pO2 185. CXR ordered. BG 230. Chest pain --> EKG shows ST changes and widened QRS, poss a-flutter; troponin pending. Dr. Govea consulted. He's had 2 NTG but remains very hypertensive with SBP 220s. Pt failed to respond to adenosine, and subseqently was cardioverted with conversion to sinus tach. Rapid response activated and Dr. Ramírez was at bedside x20 min. Transferred to CCU, where pt was met by Dr. Govea for evaluation. Continue treatment for resp status including steroids and Rocephin. 05/22 Patient remains on a ventilator requiring continuous sedation. Oxygenation borderline on 40% FiO2-oxygen flow increased to 60% by pulmonary earlier today. Continue triple antibiotics (cefepime, Levaquin, vancomycin) pending sputum culture due to extensive pneumonia on CT/chest x-ray yesterday-not present on initial films. Peak troponin 3.09 with diffuse T-wave changes; discussed with Dr. Govea and will require cardiac catheterization in the future. Continue heparin drip. Blood pressure is uncontrolled-clonidine patch initiated earlier, IV hydralazine added as needed for systolic pressures above 180. OG placed-resume statin, SSRI, atenolol, and aspirin. Assess gastric residuals today-anticipate beginning tube feedings tomorrow. Adequate urine output, continue to monitor. Blood sugars remain elevated, off metformin at present. Increase basal insulin. 05/23 Patient remains on a ventilator requiring continuous sedation. Continue triple antibiotics (cefepime, Levaquin, vancomycin); suspect aspiration pneumonia-sputum culture normal charly. Extensive infiltrates on CT chest. Repeat chest x-ray in a.m. Fluid balance positive-roughly 5 L over several days, weight up-diuresis today. Potassium supplemented IV earlier today. Peak troponin 3.09 with diffuse T-wave changes; discussed with Dr. Govea and will require cardiac catheterization in the future. Continue heparin drip. Blood pressure remains elevated but improved from yesterday with addition of clonidine patch and resumption of atenolol per OG. IV hydralazine available as needed for systolic pressures above 180. OG placed 05/22-low volume gastric output overnight and tolerating medications per OG. Will initiate tube feedings with low glycemic formula at 20 mL per hour overnight. Nutrition consult. Blood sugars remain elevated, off metformin at present and on steroids. Increase basal insulin to 40 units anticipating further increase in blood sugar with initiation of tube feedings. 05/24 Remains ventilator dependent. Steroids decreased. Vancomycin discontinued, continue Levaquin and cefepime for probable aspiration pneumonia and Streptococcus viridans positive blood culture. Continue diuresis, blood pressures elevated-atenolol increased and lisinopril initiated to improve control. Tolerating tube feedings at low-volume, converted pulmonary formula with goal of 80 mL per hour. Platelet count dropping, heparin discontinued and bivalirudin initiated. 05/25 Tolerating spontaneous breathing trial, steroids decreased. Continues to require continuous sedation. Lisinopril increased to 20 mg to improve blood pressure control. Platelet count down to 100K; HIT Ab pending. Fevers overnight without evidence source, leukocytosis/left shift resolved improved. Lines to be cultured. 05/26 FiO2 titrated to 40%; diuresing well-continue same. Spontaneous breathing trial planned for the morning with possible extubation at that time. Cardiac status stable, no further tachyarrhythmias. Trend to improved blood pressures. Cardiac catheterization planned in the future. Remains on bivalirudin. Platelet count 86K today, HIT Ab pending. Tube feedings at goal, blood sugars significantly elevated-NovoLog scheduled every 6 hours and when necessary. Chest x-ray improved, remains on Levaquin and cefepime for probable aspiration pneumonia. Blood cultures drawn yesterday negative thus far. 05/27 Extubated this afternoon, OG discontinued in conjunction with extubation. CPAP initiated for respiratory support. Speech therapy, PT, OT consultations tomorrow. Anticipate significant reduction in fluid volume off sedating medications and tube feedings--> Lasix dose decreased to twice daily administration. Platelet count stabilizing, HIT Ab negative. Intermittent fever, remains on antibiotics for possible aspiration pneumonia. Repeat blood cultures negative.
[2017-05-28] MEDS: ASPIRIN 81 MG CHEWABLE TABLET GT SCH (12:30)
[2017-05-28] MEDS: AMLODIPINE 10 MG TABLET PO SCH (12:30)
[2017-05-28] MEDS: CITALOPRAM 40 MG TABLET PO SCH (12:30)
[2017-05-28] MEDS: POTASSIUM CHLORIDE 20 MEQ/15 ML ORAL LIQUID PO SCH ×2 (12:30→17:21)
[2017-05-28] MEDS: ATENOLOL 50 MG TABLET PO SCH (12:30)
[2017-05-28] MEDS: LISINOPRIL 10 MG TABLET PO SCH (12:31)
[2017-05-28] MEDS: GABAPENTIN 300 MG CAPSULE PO SCH ×2 (14:14→23:15)
--- NOTE | 2017-05-28 14:30 | Cardiac Catheterization Report ---
DATE OF PROCEDURE May 28, [address] Zak Odom The patient is a pleasant 61-year-old gentleman who was admitted with respiratory failure and acute worsening of respiratory failure and is ruled in for tbx-US-wresvjphu myocardial infarction with EKG changes suggestive of ischemia versus subendocardial injury and was referred for further evaluation by cardiac catheterization and possible intervention after respiratory status was stabilized and extubated. Informed consent was obtained after explaining the procedure and the potential risks to the patient who agreed to proceed with the procedure. PROCEDURE 1. Left heart catheterization. 2. Coronary angiography. 3. Primary stent of LAD using a 2.75 x 18 and another 2.75 x 18 drug-eluting Resolute [place] stents. TECHNIQUE He was prepped and draped in the usual sterile techniques. 1% lidocaine was used for local anesthesia. Using modified Seldinger technique, arterial access was obtained into the right radial artery with placement of a 6-Irish arterial sheath. 3,000 units of heparin, 300 mcg of nitroglycerin and 2.5 mg of verapamil were given through the arterial sheath. Prior to intervention patient received additional 8000 units of heparin. He also received 180 mg of Brilinta and 81 mg of aspirin in laboratory apparatus glass blower. CORONARY ANGIOGRAPHY Left main was free of significant lesions. Left anterior descending artery had 90% stenosis after the first diagonal. First diagonal also has about 80-90% ostial stenosis. Left circumflex artery had proximal 50-60% stenosis. Obtuse marginal has 80% eccentric stenosis. Right coronary artery is small with about 30-40% stenosis. After reviewing the images we decided to proceed with intervention on LAD. A 6 -Irish Qikari left guide was advanced to the ostium of left main. A Runthrough wire was used to cross the lesion into distal LAD. A 2.75 x 18 drug-eluting Resolute [place] stent was delivered to the lesion site where it was deployed by inflating the balloon to 18 atmospheres. Next, we used another 2.75 x 18 drug- eluting Resolute [place] stent which was delivered distal to the previous stent with minimal overlap and deployed by inflating the balloon to 18 atmospheres. Next, angiogram showed excellent results with no residual stenosis. Due to patient's medical condition we did not wish to proceed with any further intervention at this time. The patient tolerated the procedure well with no complications. IMPRESSION 1. Coronary artery disease as described above. 2. Successful primary stent of LAD using a 2.75 x 18 and another 2.75 x 18 drug -eluting Resolute [place] stents. PLAN Will continue dual antiplatelet therapy and risk modification. Since the patient's medical condition is somewhat tenuous, we did not wish to proceed with any further intervention. The patient was somewhat agitated on table. I think this should stabilize the patient's cardiac condition at this point. One might consider diagonal artery and obtuse marginal percutaneous intervention in future, possibly femoral approach. JOAQUIM
[2017-05-28] MEDS ORDERED: INSULIN ASPART 100unit/ml INJECTION SQ SCH (15:00)
[2017-05-28] MEDS: LEVOFLOXACIN PB 750 MG/150 ML BAG IV SCH (15:45)
--- NOTE | 2017-05-28 15:54 | Pulmonology Progress Note ---
Subjective Principal diagnosis: SOB, respiratory failure Interval history: extubated yesterday. at bedside, states he has been on continuous NIPPV home machine with AVAPS- AE via full facemask Nursing states he has been fairly obtunded today. Had a HC today, did not receive sedation Exam Vital signs: Temperature 97 F 05/28/17 12:00 Pulse Rate 101 H 05/28/17 14:15 Respiratory Rate 28 H 05/28/17 14:45 Blood Pressure 113/58 05/28/17 14:15 Pulse Oximetry 95 05/28/17 14:45 - Constitutional no acute distress, obese, obtunded - Routine HEENT Exam Head: Present: normocephalic, atraumatic Eye: Absent: conjunctival icterus - Routine Neck Exam Present: supple. Absent: lymphadenopathy - Routine Respiratory Exam Present: decreased breath sounds, wheezes. Absent: accessory muscle use - Routine Cardiovascular Exam Present: RRR. Absent: murmur - Routine Abdominal Exam Present: soft. Absent: guarding - Routine Extremities Exam Absent: cyanosis, clubbing - Urinary Catheter Management Urethral Cath placed during this visit: yes Insertion date: 05/21/17 Assessment and Plan (1) Acute exacerbation of chronic obstructive airways disease Status: Acute Assessment and plan: continue methylpred 80 q12 A and A nebs q4h. status remains tenuous. Current Visit: Yes (2) Acute and chronic respiratory failure with hypercapnia Status: Acute Assessment and plan: Patient is extubated (PCO2 53 last checked) and has been on NIPPV AVAPS-AE since yesterday He is fairly somnolent and we will recheck an ABG today Additionally, his home vent has minimal observable monitors and alarms are all off. I would favor using a [facility] BIPAP ST for support and monitoring. Current Visit: Yes (3) Pneumonia Status: Acute Assessment and plan: remains on empiric antibiotics. Current Visit: Yes - Assessment and Plan Acute on Chronic Hypoxic Hypercapnic Respiratory Failure LLL mass 2.2 cm - plan OP biopsy COPD exacerbation Chest Pain/Wide complex tachycardia s/p cardioversion Bacteremia likely contaminant ANGELLA/OHS Morbid Obesity DM Thrombocytopenia - off heparin, on bivalirudin - Time Spent With Patient Total time spent is greater than 50% in coordination of care (as documented) at patient's floor/unit and/or counseling patient: 25 - 35 minutes
[2017-05-28] MEDS: INSULIN ASPART 100unit/ml INJECTION SQ SCH ×2 (18:03→23:31)
[2017-05-28] MEDS: ATORVASTATIN 40 MG TABLET PO SCH (20:48)
[2017-05-28] MEDS: TICAGRELOR 90 MG TABLET PO SCH (20:48)
[2017-05-28] MEDS: HYDROCODONE/APAP 7.5 MG/325 MG TABLET PO SCH (21:00)
[2017-05-28] MEDS: INSULIN GLARGINE 100unit/ml INJECTION SQ SCH (21:03)
[2017-05-28] MEDS: GUAIFENESIN LA 600 MG TABLET PO SCH (23:05)
[2017-05-28] MEDS: BuPROPion SR 150mg (12HR) TABLET PO SCH (23:06)
[2017-05-28] MEDS: ITRACONAZOLE 200 MG PO SCH (23:12)
[2017-05-29] MEDS: CEFEPIME 1 GM in NS 50 ML IV SCH ×2 (02:39→10:16)
[2017-05-29] MEDS: ALBUTEROL/IPRATROPIUM 2.5mg-0.5mg/3ml NEB AEROSOL SCH ×6 (02:48→23:02)
[2017-05-29] MEDS: INSULIN ASPART 100unit/ml INJECTION SQ SCH ×4 (05:54→23:47)
[2017-05-29] MEDS: INSULIN ASPART 100unit/ml INJECTION SQ PRN ×4 (05:55→23:47)
[2017-05-29] MEDS: BUDESONIDE INH.SOLN 0.5mg/2ml NEB AEROSOL SCH ×2 (06:52→19:30)
[2017-05-29] MEDS: OMEPRAZOLE 20 MG CAPSULE PO SCH (07:07)
[2017-05-29] MEDS: METOCLOPRAMIDE 10mg/10ml ORAL LIQUID GT SCH ×4 (07:27→19:52)
[2017-05-29] MEDS: POTASSIUM CHLORIDE 20 MEQ/15 ML ORAL LIQUID PO SCH ×2 (07:59→09:40)
[2017-05-29] MEDS: CLONIDINE 0.1 MG/24 HR PATCH TD SCH (08:01)
[2017-05-29] MEDS: ASPIRIN 81 MG CHEWABLE TABLET GT SCH (08:05)
[2017-05-29] MEDS: GABAPENTIN 300 MG CAPSULE PO SCH ×3 (08:06→20:15)
[2017-05-29] MEDS: TICAGRELOR 90 MG TABLET PO SCH ×2 (08:06→20:01)
[2017-05-29] MEDS: LISINOPRIL 10 MG TABLET PO SCH (08:07)
[2017-05-29] MEDS: CITALOPRAM 40 MG TABLET PO SCH (08:08)
[2017-05-29] MEDS: AMLODIPINE 10 MG TABLET PO SCH (08:08)
[2017-05-29] MEDS: FUROSEMIDE 20 MG/2 ML INJECTION IVP SCH (08:09)
[2017-05-29] MEDS: CLONIDINE PATCH REMOVAL TD SCH (08:13)
[2017-05-29] MEDS: BuPROPion SR 150mg (12HR) TABLET PO SCH ×2 (08:13→20:14)
[2017-05-29] MEDS: GUAIFENESIN LA 600 MG TABLET PO SCH (08:14)
[2017-05-29] MEDS: METHYLPREDNISOLONE SOD SUCC 125mg/2ml INJECTION IVP SCH ×2 (08:15→20:05)
[2017-05-29] MEDS: PANTOPRAZOLE 40 MG INJECTION IVP SCH (08:16)
[2017-05-29] MEDS ORDERED: FUROSEMIDE 20 MG/2 ML INJECTION IVP SCH (09:00)
--- NOTE | 2017-05-29 09:21 | Cardiology Progress Note ---
<ValentineAndreina chen - Last Filed: 05/29/17 09:32> Subjective Principal diagnosis: SOB, respiratory failure Interval history: Howard is seen in follow up for chest pain and NSTEMI. He had a left heart cath yesterday with successful primary stents of LAD using a 2.75 x 18 and another 2.75 x 18 drug-eluting Resolute [place] stents. He tolerated the procedure well. He had some chest pain initially post procedure but denies chest pain this morning. Exam Vital signs: Temperature 98.5 F 05/29/17 07:01 Pulse Rate 119 H 05/29/17 07:30 Respiratory Rate 32 H 05/29/17 07:30 Blood Pressure 151/78 H 05/29/17 07:01 Pulse Oximetry 94 05/29/17 07:30 - Constitutional mild distress, morbidly obese, cooperative - Routine HEENT Exam Head: Present: normocephalic ENT: Present: mucous membranes moist - Routine Neck Exam Absent: JVD, carotid bruit - Routine Chest/Breast/Axilla Exam Chest wall: Present: tenderness - Routine Respiratory Exam Present: decreased breath sounds, wheezes - Routine Cardiovascular Exam Present: no murmur, tachycardia - Routine Abdominal Exam Present: soft - Routine Extremities Exam Present: edema - Routine Skin Exam Present: intact, dry, warm - Routine Neurological Exam Present: alert - Routine Psychiatric Exam Present: normal affect - Additional findings Additional findings: Acetaminophen (Tylenol) 325 - 650 mg PO Q5H PRN PRN Reason: Discomfort Last Admin: 05/26/17 20:58 Dose: 650 mg Acetaminophen (Tylenol Supp) 650 mg IN Q5H PRN PRN Reason: Pain Acetaminophen (Tylenol) 325 - 650 mg PO Q5H PRN PRN Reason: Pain Hydrocodone Bitart/Acetaminophen ([place] 7.5/325) 1 tab PO BID KSENIA Last Admin: 05/28/17 21:00 Dose: 1 tab Hydrocodone Bitart/Acetaminophen ([place] 7.5/325) 1 tab PO Q6H PRN PRN Reason: Pain Hydrocodone Bitart/Acetaminophen ([place] 5/325) 1 - 2 tab PO Q5H PRN PRN Reason: Pain Al Hydroxide/Mg Hydroxide (Maalox Plus) 30 ml PO Q3H PRN PRN Reason: Indigestion Albuterol/Ipratropium (Duoneb) 3 ml AEROSOL RTQID PRN Albuterol/Ipratropium (Duoneb) 3 ml AEROSOL Q4H [facility] Last Admin: 05/29/17 06:52 Dose: 3 ml Amlodipine Besylate (Norvasc) 10 mg PO DAILY [facility] Last Admin: 05/29/17 08:08 Dose: 10 mg Aspirin (Asa) 81 mg GT DAILY [facility] Last Admin: 05/29/17 08:05 Dose: 81 mg Aspirin (Ecotrin) 81 mg PO DAILY [facility] Last Admin: 05/28/17 09:36 Dose: Not Given Atenolol (Tenormin) 25 mg PO BID [facility] Atorvastatin Calcium (Lipitor) 80 mg PO HS [facility] Last Admin: 05/28/17 20:48 Dose: 80 mg Atropine Sulfate (Atropine) 0.5 mg IVP Q5M PRN PRN Reason: Bradycardia Benzocaine (Cepacol Sore Throat Lozenge) 1 lozenge MM Q2HR PRN PRN Reason: Sore throat Bisacodyl (Dulcolax) 10 mg RECTALLY DAILY PRN PRN Reason: Constipation Bisacodyl (Dulcolax) 5 - 10 mg PO DAILY PRN PRN Reason: Constipation Bisacodyl (Dulcolax) 10 mg RECTALLY DAILY PRN PRN Reason: Constipation Budesonide (Pulmicort Inhalation) 0.5 mg AEROSOL RTBID [facility] Last Admin: 05/29/17 06:52 Dose: 0.5 mg Bupropion HCl (Wellbutrin Sr) 150 mg PO BID [facility] Last Admin: 05/29/17 08:13 Dose: Not Given Citalopram Hydrobromide (Celexa) 40 mg PO DAILY [facility] Last Admin: 05/29/17 08:08 Dose: 40 mg Clonidine HCl (Catapres-Tts 1) 0.1 mg TD Q7D@0900 [facility] Last Admin: 05/29/17 08:01 Dose: 0.1 mg Clonidine HCl (Catapres Patch Removal) 1 removal TD Q7D [facility] Last Admin: 05/29/17 08:13 Dose: 1 removal Furosemide (Lasix) 20 mg IVP DAILY [facility] Gabapentin (Neurontin) 300 mg PO TID [facility] Last Admin: 05/29/17 08:06 Dose: 300 mg Glucose (Glutose 15) 37.5 gm PO PRN PRN PRN Reason: Hypoglycemia Guaifenesin (Mucinex La) 1,200 mg PO BID [facility] Last Admin: 05/29/17 08:14 Dose: Not Given Hydralazine HCl (Apresoline) 10 mg IVP Q4H PRN PRN Reason: Hypertension Last Admin: 05/28/17 06:06 Dose: 10 mg Cefepime HCl 1 gm/ Sodium (Chloride) 50 mls @ 100 mls/hr IV Q6H [facility] Last Infusion: 05/29/17 03:09 Dose: Infused Levofloxacin/Dextrose (Levaquin Premix) 750 mg in 150 mls @ 100 mls/hr IV Q24H [facility] Last Infusion: 05/28/17 17:15 Dose: Infused Insulin Aspart (Novolog) 2 - 14 unit SQ SS PRN; Protocol PRN Reason: Hyperglycemia Last Admin: 05/29/17 05:55 Dose: 7 unit Insulin Aspart (Novolog) 10 unit SQ Q6H [facility] Last Admin: 05/29/17 05:54 Dose: 10 unit Insulin Glargine (Lantus) 40 unit SQ HS [facility] Last Admin: 05/28/17 21:03 Dose: 40 unit Lisinopril (Prinivil) 10 mg PO DAILY [facility] Last Admin: 05/29/17 08:07 Dose: 10 mg Lorazepam (Ativan Inj) 1 mg IVP Q2H PRN PRN Reason: Agitation/Air hunger/Pain Last Admin: 05/26/17 05:02 Dose: 1 mg Lorazepam (Ativan) 0.5 - 1 mg PO Q4H PRN PRN Reason: Anxiety Lorazepam (Ativan Inj) 0.5 - 1 mg IVP Q4H PRN PRN Reason: Anxiety Magnesium Hydroxide (Mom) 30 ml PO DAILY PRN PRN Reason: Constipation Menthol (Ricola Sf) 1 lozenge MM PRN PRN PRN Reason: Cough Methylprednisolone Sodium Succinate (Solu-Medrol) 80 mg IVP Q12HR [facility] Last Admin: 05/29/17 08:15 Dose: 80 mg Metoclopramide HCl (Reglan) 5 mg GT Q6H [facility] Last Admin: 05/29/17 08:17 Dose: 5 mg Metoclopramide HCl (Reglan) 5 - 10 mg IVP Q6H PRN PRN Reason: Nausea &/or vomiting Morphine Sulfate (Morphine Sulfate Inj) 2 - 4 mg IVP Q2H PRN PRN Reason: Pain Stop: 05/29/17 09:23 Last Admin: 05/28/17 10:17 Dose: 4 mg Morphine Sulfate (Morphine Sulfate Inj) 2 - 4 mg IVP Q5M PRN PRN Reason: Angina Nitroglycerin (Nitrostat) 0.4 mg SL Q5MIN3 PRN PRN Reason: CP Last Admin: 05/21/17 08:35 Dose: 0.4 mg Nitroglycerin (Nitrostat) 0.4 mg SL Q5M PRN PRN Reason: Angina --Pom--(Itraconazole [Itraconazole] 200 Mg) 200 mg PO BID [facility] Last Admin: 05/28/17 23:12 Dose: Not Given Omeprazole (Prilosec) 40 mg PO ACB [facility] Last Admin: 05/29/17 07:07 Dose: Not Given Ondansetron HCl (Zofran) 4 mg IVP Q6H PRN PRN Reason: Nausea &/or vomiting Last Admin: 05/19/17 02:45 Dose: 4 mg Ondansetron HCl (Zofran) 4 mg IVP Q6H PRN PRN Reason: Nausea &/or vomiting Pantoprazole Sodium (Protonix Iv) 40 mg IVP DAILY [facility] Last Admin: 05/29/17 08:16 Dose: 40 mg Potassium Chloride (Kcl Oral Liq 20 Meq/15 Ml) 40 meq PO DAILY [facility] Promethazine HCl (Phenergan Inj) 12.5 - 25 mg IVP Q6HR PRN PRN Reason: Nausea &/or vomiting Sodium Chloride (Iv Flush) 10 - 80 ml IVF PRN PRN PRN Reason: Flushing Last Admin: 05/27/17 01:31 Dose: 50 ml Sodium Chloride (Deep Sea Nasal Moisturizing [place]) 1 spray EA NOSTRIL PRN PRN PRN Reason: Congestion Last Admin: 05/19/17 16:37 Dose: 1 spray Sodium Chloride (Normal Saline) 500 ml IV PRN PRN Last Admin: 05/25/17 21:52 Dose: 500 ml Ticagrelor (Brilinta) 90 mg PO Q12H [facility] Last Admin: 05/29/17 08:06 Dose: 90 mg - Urinary Catheter Management Urethral Cath placed during this visit: yes Insertion date: 05/21/17 Results 05/29/17 03:47 05/29/17 03:47 CBC 05/29/17 Range/Units 03:47 WBC 20.4 H (4.5-11.0) T/MM3 RBC 4.66 (4.50-5.90) M/MM3 Hgb 13.9 (13.5-17.5) GM/DL Hct 45.6 (41-53) % Plt Count 138 (130-400) T/MM3 Neut # (Auto) Not performed Lymph # (Auto) Not performed [place] # (Auto) Not performed Eos # (Auto) Not performed Baso # (Auto) Not performed Comprehensive Metabolic Panel 05/29/17 Range/Units 03:47 Sodium 147 H (134-144) MEQ/L Potassium 4.1 (3.6-5) MEQ/L Chloride 103 (98-107) MEQ/L Carbon Dioxide 36 H (22-30) MEQ/L BUN 44.0 H (9-20) MG/DL Creatinine 0.6 L (0.8-1.5) MG/DL Glucose 308 H (75-110) MG/DL Calcium 8.6 (8.4-10.2) MG/DL Intake and Output 05/28/17 05/29/17 05/29/17 22:59 06:59 14:59 Intake Total 660 / 660 335 / 335 20 / 20 Output Total 1500 / 1500 965 / 965 520 / 520 Balance -840 / -840 -630 / -630 -500 / -500 Intake: IV 250 / 250 50 / 50 Cefepime 1 gm In Ns 50 ml @ 100 100 / 100 50 / 50 mls/hr IV Q6H [facility] Rx#: [id number] Levofloxacin Pb 750 mg In 150 150 / 150 ml @ 100 mls/hr IV Q24H [facility] Rx# :[id number] Tube Feeding 160 / 160 160 / 160 20 / 20 Oral 160 / 160 160 / 160 20 / 20 Intake, Gastric Tube Irrigant 250 / 250 125 / 125 Amount Oral 250 / 250 125 / 125 Output: Urine Amount (Catheter) 1500 / 1500 965 / 965 520 / 520 Other: Urine Appearance Clear Urine Color Yellow Weight 315 lb 7.704 oz Patient Weight 05/30/17 06:59 Weight 315 lb 7.704 oz - Imaging and Cardiology Imaging & Cardiology Narrative: Date of Exam: 05/28/17 Type of Exam(s): CA heart cath LT DATE OF PROCEDURE May 28, [address] Zak Odom The patient is a pleasant 61-year-old gentleman who was admitted with respiratory failure and acute worsening of respiratory failure and is ruled in for [id number] myocardial infarction with EKG changes suggestive of ischemia versus subendocardial injury and was referred for further evaluation by cardiac catheterization and possible intervention after respiratory status was stabilized and extubated. Informed consent was obtained after explaining the procedure and the potential risks to the patient who agreed to proceed with the procedure. PROCEDURE 1. Left heart catheterization. 2. Coronary angiography. 3. Primary stent of LAD using a 2.75 x 18 and another 2.75 x 18 drug-eluting Resolute [place] stents. TECHNIQUE He was prepped and draped in the usual sterile techniques. 1% lidocaine was used for local anesthesia. Using modified Seldinger technique, arterial access was obtained into the right radial artery with placement of a 6-[place] arterial sheath. 3,000 units of heparin, 300 mcg of nitroglycerin and 2.5 mg of verapamil were given through the arterial sheath. Prior to intervention patient received additional 8000 units of heparin. He also received 180 mg of Brilinta and 81 mg of aspirin in [facility] laboratory. CORONARY ANGIOGRAPHY Left main was free of significant lesions. Left anterior descending artery had 90% stenosis after the first diagonal. First diagonal also has about 80-90% ostial stenosis. Left circumflex artery had proximal 50-60% stenosis. Obtuse marginal has 80% eccentric stenosis. Right coronary artery is small with about 30-40% stenosis. After reviewing the images we decided to proceed with intervention on LAD. A 6 -[place] Islander [employer] left guide was advanced to the ostium of left main. A Runthrough wire was used to cross the lesion into distal LAD. A 2.75 x 18 drug-eluting Resolute [place] stent was delivered to the lesion site where it was deployed by inflating the balloon to 18 atmospheres. Next, we used another 2.75 x 18 drug- eluting Resolute [place] stent which was delivered distal to the previous stent with minimal overlap and deployed by inflating the balloon to 18 atmospheres. Next, angiogram showed excellent results with no residual stenosis. Due to patient's medical condition we did not wish to proceed with any further intervention at this time. The patient tolerated the procedure well with no complications. IMPRESSION 1. Coronary artery disease as described above. 2. Successful primary stent of LAD using a 2.75 x 18 and another 2.75 x 18 drug -eluting Resolute [place] stents. PLAN Will continue dual antiplatelet therapy and risk modification. Since the patient's medical condition is somewhat tenuous, we did not wish to proceed with any further intervention. The patient was somewhat agitated on table. I think this should stabilize the patient's cardiac condition at this point. One might consider diagonal artery and obtuse marginal percutaneous intervention in future, possibly femoral approach. Date of Exam: 05/28/17 Ordering Provider: Sarahi Luque MD Type of Exam(s): XR chest 1V Reason for Exam(s): PICC PLACEMENT Indication: PICC PLACEMENT PROCEDURE: XR chest 1V: Encounter: Initial Comparison: May 28, 2017 at 0532 Findings: New Dobbhoff tube in place extending below the diaphragm, the tip is not included on this image. The left PICC line has been repositioned with the tip now projecting over the lower SVC. Lungs are stable. No pneumothorax. Heart size and mediastinal contours are stable. Impression: 1. Interval repositioning of the left PICC line which now projects over the lower SVC. 2. New Dobbhoff tube. - EKG Interpretation EKG: sinus rhythm EKG shows: tachycardia (NSSTT changes) Assessment and Plan - Assessment and Plan (1) Chest pain Current visit: Yes Status: Acute (2) Community acquired pneumonia Current visit: No Status: Acute (3) Acute and chronic respiratory failure with hypercapnia Current visit: Yes Status: Acute (4) Atherosclerotic heart disease of [place] coronary artery without angina pectoris Current visit: Yes Status: Chronic (5) Essential (primary) hypertension Current visit: Yes Status: Chronic (6) Type 2 diabetes mellitus without complications Current visit: Yes Status: Chronic (7) Obesity (BMI 30-39.9) Current visit: Yes Status: Chronic (8) ANGELLA (obstructive sleep apnea) Current visit: Yes Status: Chronic (9) NSTEMI (non-ST elevated myocardial infarction) Current visit: Yes Status: Acute - Assessment and Plan 05/21/17 Reportedly had severe chest pain, was johnson and diaphoretic as well as tachypneic followed by decreased LOC. - HR 140s, sinus tach vs. A flutter - Given Adenosine 6mg IVP, followed by 12mg X2 without slowing HR. - Sedation given and attempted DCCV which was unsuccessful. - Following 2nd dose of Metoprolol 5mg IV heart rate slowed enough to confirm it is Sinus tachycardia. - Repeat EKG obtained, started on Heparin drip. - Trend Troponin - 2D echo - CTA for emboli/ dissection 05/22/17 NSTEMI: - Troponin: 1) 0.015, 2) 1.500, 3) 3.090, 4) 2.100 - EKG: SR, anterolateral ischemia V3-V6, inferior ischemia II/aVf - Left heart cath when more stable - Continue Heparin drip. HTN: Catapress TTS 1 patch while NPO - Hydralazine prn as ordered - Labetalol prn, hold HR <65 05/23/17 BP improving - EKG now please 05/24/17 Stop Heparin drip, get HIT panel Spoke with pharmacy, start Angiomax at 0.15mg/kg/hr (21.6mg/hr) until HIT panel resulted. Continues to have ST depression on Telemetry and EKG. Add Amlodipine 10mg per OG tube for better BP control 05/27/17 - Plan left heart cath with possible PCI in the am - Stop Angiomax drip - Give Lovenox 1mg/kg SQ tonight - Watch platelets closely 05/29/17 He had a left heart cath yesterday with successful primary stents of LAD using a 2.75 x 18 and another 2.75 x 18 drug-eluting Resolute [place] stents. - Aspirin 81mg daily, Brilinta 90mg BID for dual antiplatelet therapy - Change Simvastatin to Atorvastatin 80mg at HS - Continue to Hold Metformin - Change Atenolol 50mg daily to 25mg BID - Decrease IV Lasix to daily and K+ to daily as BUN is rising and is post cath. Thank you for allowing us to participate in the care of this patient, we will follow along with you. Hospital Course Summary Disclaimer: The visit summary below is not to be considered part of the above Progress Note. Hospital Course: 05/17/17 Admission Admit to observation status under the care of Dr. Lopez. Sepsis work up initiated in ED. Patient meeting SIRS criteria based on tachycardia, tachypnea and reported fevers at home without obvious source. Initial lactate was 1.4 with repeat lactate decreased to 0.9. Blood cultures pending. WBC stable at 5.0. CXR revealed left basilar scarring without focal pneumonia. Respiratory panel was negative. Patient was given DuoNeb treatments and Solu-Medrol 125mg IV in ED. Will continue respiratory care with DuoNeb treatments QID and Q6H PRN as well as Solu -Medrol 125mg IV Q6H. History of diabetes with A1c on 04/17/17 at 6.4%. Continue home medications and monitor blood sugars closely given treatment with steroids. Sliding scale insulin as indicated for hyperglycemia. Patient was placed on BiPAP in ED with improvement. Continue BiPAP as indicated. Ativan as needed for anxiety and agitation while on BiPAP. Will monitor closely on telemetry with continuous pulse oximetry. Oxygen as needed to maintain SAO2 between 90-95%, weaning as able to baseline of 5L. SCDs for DVT prophylaxis. Given sudden onset of dyspnea, will obtain CT angio chest for further evaluation of PE - results pending. NS at 100cc/hr for hydration given decreased oral intake as on BiPAP. Monitor daily weight closely for signs of fluid overload. Recheck labs in AM to monitor blood counts, electrolytes and renal function. Patient wishes to maintain FULL CODE status. Upon discharge, patient's care will be returned to his PCP, Dr. Odom. 05/18/17 Don reports that his breathing is a little better today and is he is more alert. New cough with sputum production. 1 of the 2 blood cultures obtained on admission is POSITIVE for Streptococcus. Night telehospitalist was notified and Rocephin 2g IV Q24 hours was initiated for antimicrobial coverage. Given new cough, will try and obtain a sputum culture. Mucinex for mucolytic effect. Ricola for cough. Continue respiratory care including nebulized treatments. Continue to encourage BiPAP as indicated and supplemental oxygen to maintain SAO2 between 90 -95%. Wean oxygen to baseline of 5L as able. Given sudden onset of dyspnea, CT angio chest was obtained and revealed no PE but did note 2.2cm left lower lobe pulmonary nodule raising concern for primary lung malignancy and recommended further evaluation. Will discuss consideration of pulmonary consult for further evaluation. Continue Solu-Medrol 125mg IV Q6 hours. Anticipate initiation of tapering in near future. Blood sugars remain elevated, most likely steroid effect, ranging from 160's-> 200. Continue sliding scale insulin. Given recent CT with contrast, will hold metformin and restart 05/19/17. Continue NS at 75cc/hr for hydration. Monitor urinary output and daily weight closely for signs of fluid over load. Oral intake is good. Consider discontinuation of fluids this afternoon. Ativan as needed for anxiety and agitation while on BiPAP. Troponins continue to trend up slowing - 0.015, 0.017, 0.029, 0.045 and 0.048 this morning. Will recheck troponin at 1030 and continue to monitor closely on telemetry. Patient denies chest pain. SCDs for DVT prophylaxis. Recheck labs in AM to monitor blood counts, electrolytes and renal function. Discussed at length with patient and family the importance of smoking cessation. He admits to wanting to stop smoking and inquired about initiation of Chantix. Continue Wellbutrin for smoking cessation. With BC positive and starting IV antibiotics, will change admission status to inpatient. Anticipate greater than 2 midnights of care needed. 05/19/17 Continue with Rocephin for antimicrobial coverage. With lungs still very tight and congested, will continue with Solu-Medrol 125mg IV q 6 hours. Continue Neb treatments and acapella. Encourage use of BiPAP as much as able to help his chronic hypercapnea. Stressed with about the importance of him not smoking. She understand. Will consult with Dr Ashby for pulm evaluation. Will discontinue IVF. May restart metformin this evening. Sugars with elevation secondary to steroids. Did give Diamox 500mg x1 this am for fluid motivation and to help minimize contraction alkalosis. PT/OT to evaluate and initiate treatment tomorrow for his significant pulmonary debility. 05/20 Continue with Rocephin for antimicrobial coverage. One blood culture was positive with streptococcus Viridans, Repeat BC were drawn this morning. Scheduled breathing tx, IV solu-medrol, as well as oxygen and Bipap Appreciate Dr Ashby consultation. Likely require bronchoscopy for biopsy of lung mass. Continue to monitor BGM remain elevated. Metformin was resumed as well as sliding scale insulin. Encourage PT/OT for strengthening 05/21 Resp failure --> ABG shows resp acidosis and he was placed on BiPAP with improvement in color. Repeat ABG shows pH 7.12, pCO2 106, pO2 185. CXR ordered. BG 230. Chest pain --> EKG shows ST changes and widened QRS, poss a-flutter; troponin pending. Dr. Govea consulted. He's had 2 NTG but remains very hypertensive with SBP 220s. Pt failed to respond to adenosine, and subseqently was cardioverted with conversion to sinus tach. Rapid response activated and Dr. Ramírez was at bedside x20 min. Transferred to CCU, where pt was met by Dr. Govea for evaluation. Continue treatment for resp status including steroids and Rocephin. 05/22 Patient remains on a ventilator requiring continuous sedation. Oxygenation borderline on 40% FiO2-oxygen flow increased to 60% by pulmonary earlier today. Continue triple antibiotics (cefepime, Levaquin, vancomycin) pending sputum culture due to extensive pneumonia on CT/chest x-ray yesterday-not present on initial films. Peak troponin 3.09 with diffuse T-wave changes; discussed with Dr. Govea and will require cardiac catheterization in the future. Continue heparin drip. Blood pressure is uncontrolled-clonidine patch initiated earlier, IV hydralazine added as needed for systolic pressures above 180. OG placed-resume statin, SSRI, atenolol, and aspirin. Assess gastric residuals today-anticipate beginning tube feedings tomorrow. Adequate urine output, continue to monitor. Blood sugars remain elevated, off metformin at present. Increase basal insulin. 05/23 Patient remains on a ventilator requiring continuous sedation. Continue triple antibiotics (cefepime, Levaquin, vancomycin); suspect aspiration pneumonia-sputum culture normal charly. Extensive infiltrates on CT chest. Repeat chest x-ray in a.m. Fluid balance positive-roughly 5 L over several days, weight up-diuresis today. Potassium supplemented IV earlier today. Peak troponin 3.09 with diffuse T-wave changes; discussed with Dr. Govea and will require cardiac catheterization in the future. Continue heparin drip. Blood pressure remains elevated but improved from yesterday with addition of clonidine patch and resumption of atenolol per OG. IV hydralazine available as needed for systolic pressures above 180. OG placed 05/22-low volume gastric output overnight and tolerating medications per OG. Will initiate tube feedings with low glycemic formula at 20 mL per hour overnight. Nutrition consult. Blood sugars remain elevated, off metformin at present and on steroids. Increase basal insulin to 40 units anticipating further increase in blood sugar with initiation of tube feedings. 05/24 Remains ventilator dependent. Steroids decreased. Vancomycin discontinued, continue Levaquin and cefepime for probable aspiration pneumonia and Streptococcus viridans positive blood culture. Continue diuresis, blood pressures elevated-atenolol increased and lisinopril initiated to improve control. Tolerating tube feedings at low-volume, converted pulmonary formula with goal of 80 mL per hour. Platelet count dropping, heparin discontinued and bivalirudin initiated. 05/25 Tolerating spontaneous breathing trial, steroids decreased. Continues to require continuous sedation. Lisinopril increased to 20 mg to improve blood pressure control. Platelet count down to 100K; HIT Ab pending. Fevers overnight without evidence source, leukocytosis/left shift resolved improved. Lines to be cultured. 05/26 FiO2 titrated to 40%; diuresing well-continue same. Spontaneous breathing trial planned for the morning with possible extubation at that time. Cardiac status stable, no further tachyarrhythmias. Trend to improved blood pressures. Cardiac catheterization planned in the future. Remains on bivalirudin. Platelet count 86K today, HIT Ab pending. Tube feedings at goal, blood sugars significantly elevated-NovoLog scheduled every 6 hours and when necessary. Chest x-ray improved, remains on Levaquin and cefepime for probable aspiration pneumonia. Blood cultures drawn yesterday negative thus far. 05/27 Extubated this afternoon, OG discontinued in conjunction with extubation. CPAP initiated for respiratory support. Speech therapy, PT, OT consultations tomorrow. Anticipate significant reduction in fluid volume off sedating medications and tube feedings--> Lasix dose decreased to twice daily administration. Platelet count stabilizing, HIT Ab negative. Intermittent fever, remains on antibiotics for possible aspiration pneumonia. Repeat blood cultures negative. <Francis Govea - Last Filed: 05/31/17 15:37> Exam Vital signs: Temperature 97.0 F 05/31/17 15:25 Pulse Rate 91 05/31/17 15:25 Respiratory Rate 28 H 05/31/17 15:25 Blood Pressure 142/63 H 05/31/17 15:25 Pulse Oximetry 96 05/31/17 15:25 Inpatient Medications: Generic Name Dose Route Start Last Admin Trade Name Freq PRN Reason Stop Dose Admin Acetaminophen 325 - 650 mg 05/17/17 10:08 05/26/17 20:58 Tylenol PO 650 mg Q5H PRN Administration Discomfort Hydrocodone Bitart/Acetaminophen 1 tab 05/17/17 10:14 [place] 7.5/325 PO Q6H PRN Pain Al Hydroxide/Mg Hydroxide 30 ml 05/28/17 09:24 Maalox Plus PO Q3H PRN Indigestion Albuterol/Ipratropium 3 ml 05/17/17 10:11 Duoneb AEROSOL RTQID PRN Albuterol/Ipratropium 3 ml 05/21/17 15:15 05/31/17 11:28 Duoneb AEROSOL 3 ml Q4H KSENIA Administration Amlodipine Besylate 10 mg 05/24/17 13:46 05/31/17 08:42 Norvasc PO 10 mg DAILY KSENIA Administration Aspirin 81 mg 05/28/17 09:24 05/31/17 08:46 Ecotrin PO Not Given DAILY KSENIA Atenolol 25 mg 05/29/17 09:00 05/31/17 08:42 Tenormin PO 25 mg BID KSENIA Administration Atorvastatin Calcium 80 mg 05/28/17 21:00 05/30/17 21:20 Lipitor PO 80 mg HS KSENIA Administration Bisacodyl 10 mg 05/27/17 15:11 Dulcolax RECTALLY DAILY PRN Constipation Bisacodyl 5 - 10 mg 05/28/17 09:24 Dulcolax PO DAILY PRN Constipation Budesonide 0.5 mg 05/17/17 19:00 05/31/17 07:30 Pulmicort Inhalation AEROSOL 0.5 mg RTBID KSENIA Administration Bupropion HCl 150 mg 05/17/17 21:00 05/31/17 08:41 Wellbutrin Sr PO 150 mg BID KSENIA Administration Citalopram Hydrobromide 40 mg 05/18/17 09:00 05/31/17 08:43 Celexa PO 40 mg DAILY KSENIA Administration Clonidine HCl 0.1 mg 05/22/17 09:00 05/29/17 08:01 Catapres-Tts 1 TD 0.1 mg Q7D@0900 KSENIA Administration Clonidine HCl 1 removal 05/29/17 08:59 05/29/17 08:13 Catapres Patch Removal TD 1 removal Q7D KSENIA Administration Gabapentin 300 mg 05/17/17 15:00 05/31/17 08:43 Neurontin PO 300 mg TID KSENIA Administration Glucose 37.5 gm 05/17/17 10:12 Glutose 15 PO PRN PRN Hypoglycemia Guaifenesin 400 mg 05/29/17 12:00 05/31/17 12:55 Robitussin Liq PO 400 mg Q6H KSENIA Administration Hydralazine HCl 10 mg 05/22/17 15:01 05/28/17 06:06 Apresoline IVP 10 mg Q4H PRN Administration Hypertension Insulin Aspart 2 - 14 unit 05/21/17 11:43 05/31/17 12:37 Novolog SQ 4 unit SS PRN Administration Hyperglycemia Protocol Insulin Aspart 12 unit 05/31/17 08:41 05/31/17 10:50 Novolog SQ 12 unit Q6H KSENIA Administration Insulin Glargine 50 unit 05/31/17 08:41 Lantus SQ HS KSENIA Lisinopril 10 mg 05/31/17 15:18 Prinivil PO 05/31/17 15:19 O ONE Lisinopril 20 mg 06/01/17 09:00 Prinivil PO DAILY [facility] Lorazepam 0.5 - 1 mg 05/28/17 09:24 Ativan PO Q4H PRN Anxiety Magnesium Hydroxide 30 ml 05/28/17 09:24 Mom PO DAILY PRN Constipation Methylprednisolone Sodium Succinate 60 mg 05/29/17 21:00 05/31/17 08:43 Solu-Medrol IVP 60 mg Q12HR KS[place]IA Administration Metoclopramide HCl 5 mg 05/30/17 14:00 05/31/17 08:41 Reglan GT 5 mg Q6H KSENIA Administration Morphine Sulfate 2 - 4 mg 05/28/17 09:24 Morphine Sulfate Inj IVP Q5M PRN Angina Omeprazole 40 mg 05/18/17 06:30 05/31/17 06:16 Prilosec PO 40 mg ACB KSENIA Administration Ondansetron HCl 4 mg 05/28/17 09:24 Zofran IVP Q6H PRN Nausea &/or vomiting Oseltamivir Phosphate 75 mg 05/29/17 21:00 05/31/17 08:44 Tamiflu 06/03/17 09:01 75 mg BID KSENIA Administration Sodium Chloride 10 - 80 ml 05/17/17 05:20 05/30/17 21:35 Iv Flush IVF 10 ml PRN PRN Administration Flushing Sodium Chloride 1 spray 05/19/17 11:42 05/19/17 16:37 [place] Nasal Moisturizing [place] EA NOSTRIL 1 spray PRN PRN Administration Congestion Sodium Chloride 500 ml 05/25/17 21:40 05/25/17 21:52 Normal Saline IV 500 ml PRN PRN Administration Ticagrelor 90 mg 05/28/17 21:01 05/31/17 08:41 Brilinta PO 90 mg Q12H KSENIA Administration Discontinued Medications Generic Name Dose Route Start Last Admin Trade Name Freq PRN Reason Stop Dose Admin Acetaminophen 650 mg 05/21/17 15:10 Tylenol Supp IN Q5H PRN Pain Acetaminophen 325 - 650 mg 05/28/17 09:24 Tylenol PO Q5H PRN Pain Hydrocodone Bitart/Acetaminophen 1 tab 05/17/17 21:00 05/31/17 08:42 [place] 7.5/325 PO 1 tab BID KSENIA Administration Hydrocodone Bitart/Acetaminophen 1 - 2 tab 05/28/17 09:24 [place] 5/325 PO Q5H PRN Pain Acetazolamide 500 mg 05/19/17 10:51 05/19/17 11:25 Diamox PO 05/19/17 10:52 500 mg O ONE Administration Adenosine 12 mg 05/21/17 09:17 05/21/17 08:50 Adenocard IVP 05/21/17 09:18 12 mg O ONE Administration Adenosine 6 mg 05/21/17 09:18 05/21/17 09:23 Adenocard IVP 05/21/17 09:19 6 mg O ONE Administration Albuterol/Ipratropium 6 ml 05/17/17 05:19 05/17/17 05:33 Duoneb AEROSOL 05/17/17 05:20 6 ml O ONE Administration Albuterol/Ipratropium 3 ml 05/17/17 11:00 05/21/17 18:22 Duoneb AEROSOL Not Given RTQID KSENIA Aspirin 81 mg 05/18/17 09:00 05/23/17 08:26 Asa PO Not Given DAILY KSENIA Aspirin 81 mg 05/22/17 16:00 05/31/17 08:42 Asa GT 81 mg DAILY KS[place]IA Administration Atenolol 25 mg 05/18/17 09:00 05/24/17 08:58 Tenormin PO 25 mg DAILY [facility] Administration Atenolol 50 mg 05/25/17 09:00 05/28/17 12:30 Tenormin PO Not Given DAILY [facility] Atenolol 25 mg 05/24/17 09:40 05/24/17 11:09 Tenormin PO 05/24/17 09:41 25 mg O ONE Administration Atropine Sulfate 0.5 mg 05/28/17 09:24 Atropine IVP Q5M PRN Bradycardia Benzocaine 1 lozenge 05/20/17 18:54 Cepacol Sore Throat Lozenge MM Q2HR PRN Sore throat Bisacodyl 10 mg 05/28/17 09:24 Dulcolax RECTALLY DAILY PRN Constipation Bivalirudin 250 mg 05/24/17 14:15 Angiomax IV NOW [facility] Enoxaparin Sodium 1 each 05/18/17 10:47 05/18/17 12:54 Pharmacy Consult - Lovenox MC 05/18/17 10:48 1 each O ONE Administration Enoxaparin Sodium 50 mg 05/18/17 11:45 05/20/17 08:37 Lovenox SQ 50 mg DAILY [facility] Administration Enoxaparin Sodium 142 mg 05/27/17 17:00 05/28/17 09:34 Lovenox SQ 142 mg DAILY [facility] Administration Furosemide 20 mg 05/18/17 09:00 05/20/17 08:37 Lasix PO 20 mg DAILY [facility] Administration Furosemide 40 mg 05/21/17 09:37 05/21/17 09:45 Lasix IVP 05/21/17 09:38 40 mg ONCE ONE Administration Furosemide 20 mg 05/23/17 21:00 05/24/17 08:59 Lasix IVP 20 mg Q12HR [facility] Administration Furosemide 20 mg 05/24/17 17:00 05/27/17 09:31 Lasix IVP 20 mg Q8HR [facility] Administration Furosemide 20 mg 05/27/17 21:00 05/29/17 08:09 Lasix IVP 20 mg Q12H [facility] Administration Furosemide 20 mg 05/29/17 09:00 Lasix IVP DAILY [facility] Guaifenesin 1,200 mg 05/18/17 09:00 05/29/17 08:14 Mucinex La PO Not Given BID [facility] Heparin Sodium (Beef Lung) 5,000 unit 05/21/17 09:23 05/21/17 10:07 Heparin Bolus IVP 05/21/17 09:24 5,000 unit O ONE Administration Heparin Sodium (Beef Lung) 3,000 unit 05/21/17 17:45 05/21/17 17:53 Heparin Bolus IVP 05/21/17 17:46 3,000 unit O ONE Administration Heparin Sodium (Beef Lung) 3,000 unit 05/22/17 03:37 05/22/17 03:46 Heparin Bolus IVP 05/22/17 03:38 3,000 unit O ONE Administration Heparin Sodium (Porcine) 1 each 05/21/17 09:08 Pharmacy Consult - Heparin 05/21/17 09:09 ONE TIME ONE Hydralazine HCl 5 mg 05/22/17 08:47 05/22/17 10:09 Apresoline IVP 5 mg Q6H PRN Administration Hypertension Sodium Chloride 1,000 mls @ 999.9 mls/hr 05/17/17 05:44 05/17/17 11:20 Normal Saline IV 05/17/17 06:43 Infused .Q1H ONE Infusion Sodium Chloride 1,000 mls @ 75 mls/hr 05/17/17 10:08 05/19/17 11:19 Normal Saline IV Infused .[id number] KSENIA Infusion Ceftriaxone Sodium 2 gm/ 100 mls @ 200 mls/hr 05/18/17 01:15 05/18/17 01:50 Sodium Chloride IV Infused Q24H KSENIA Infusion Ceftriaxone Sodium 2 gm/ 50 mls @ 100 mls/hr 05/18/17 21:00 05/20/17 21:55 Sodium Chloride IV Infused Q24H KSENIA Infusion Heparin Sodium (Porcine) 20,000 unit in 500 mls @ 44 mls/hr 05/21/17 09:30 13:17 Heparin Drip IV Infused .[id number] KSENIA Titration Protocol Dexmedetomidine HCl 200 mcg/ 52 mls @ 6.87 mls/hr 05/21/17 09:52 05/21/17 20: 00 Sodium Chloride IV 05/21/17 20:29 0 mcg/kg/hr .Q7H35M PRN 0 mls/hr Protocol Titration 0.2 MCG/KG/HR Propofol 1,000 mg in 100 mls @ 3.969 mls/hr 05/21/17 10:39 05/21/17 14:28 Diprivan IV 0 mcg/kg/min .Q24H PRN 0 mls/hr Protocol Infusion 5 MCG/KG/MIN Fentanyl 1,000 mcg/ Sodium 100 mls @ 0 mls/hr 05/21/17 13:02 05/27/17 14:45 Chloride IV Infused .Q0M PRN Titration Protocol Per Protocol Sodium Chloride 250 mls @ 999.9 mls/hr 05/21/17 13:15 05/21/17 14:28 Normal Saline IV 05/21/17 13:29 Infused .Q15M KSENIA Infusion Cefepime HCl 1 gm/ Sodium 50 mls @ 100 mls/hr 05/21/17 15:30 05/29/17 10:46 Chloride IV Infused Q6H KSENIA Infusion Levofloxacin/Dextrose 750 mg in 150 mls @ 100 mls/hr 05/21/17 16:00 05/28/17 17:15 Levaquin Premix IV Infused Q24H KSENIA Infusion Vancomycin HCl 1,500 mg/ 500 mls @ 250 mls/hr 05/21/17 18:00 05/24/17 12:15 Sodium Chloride IV Infused Q8H KSENIA Infusion Dexmedetomidine HCl 1,000 mcg/ 260 mls @ 6.87 mls/hr 05/21/17 20:30 05/27/17 14:45 Sodium Chloride IV 05/27/17 14:45 Infused .Q24H PRN Titration Protocol 0.2 MCG/KG/HR Potassium Chloride 10 meq in 100 mls @ 100 mls/hr 05/23/17 09:45 05/23/17 17: 34 Potassium Chloride Premix IV 05/23/17 13:44 Infused Q1H KSENIA Infusion Heparin Sodium (Porcine) 20,000 unit in 500 mls @ 45 mls/hr 05/23/17 16:00 06:16 Heparin Drip IV Not Given .Q11H7M KSENIA Protocol Potassium Chloride 10 meq in 100 mls @ 100 mls/hr 05/24/17 09:45 05/24/17 15: 56 Potassium Chloride Premix IV 05/24/17 13:44 Not Given Q1H KSENIA Potassium Chloride 10 meq/ 105 mls @ 105 mls/hr 05/24/17 11:45 05/24/17 17:00 Sodium Chloride IV 05/24/17 15:44 Infused Q1H KSENIA Infusion Bivalirudin 250 mg/ Sodium 500 mls @ 43.2 mls/hr 05/24/17 15:15 05/27/17 17: 34 Chloride IV Not Given .[id number] KSENIA Sodium Chloride 1,000 mls @ 75 mls/hr 05/28/17 07:45 05/28/17 14:00 Normal Saline IV Infused .[id number] KSENIA Infusion Sodium Chloride 1,000 mls @ 500 mls/hr 05/30/17 10:14 05/30/17 10:41 Normal Saline IV 05/30/17 12:13 500 mls/hr .Q2H ONE Administration Sodium Chloride 1,000 mls @ 60 mls/hr 05/30/17 17:00 05/31/17 06:00 Normal Saline IV 05/31/17 09:39 60 mls/hr .[id number] KSENIA Infusion Insulin Aspart 1 - 5 unit 05/17/17 10:12 05/18/17 06:06 Novolog SQ 2 unit SS PRN Administration Hyperglycemia Protocol Insulin Aspart 2 - 8 unit 05/18/17 08:22 05/21/17 07:30 Novolog SQ 3 unit SS PRN Administration Hyperglycemia Protocol Insulin Aspart 15 unit 05/20/17 10:32 05/20/17 10:36 Novolog SQ 05/20/17 10:33 15 unit ONE TIME ONE Administration Insulin Aspart 10 unit 05/26/17 12:00 05/26/17 13:54 Novolog SQ Not Given Q6H KSENIA Insulin Aspart 10 unit 05/26/17 15:00 05/27/17 21:06 Novolog SQ Not Given 0300,0900,1500,2100 KSENIA Insulin Aspart 10 unit 05/28/17 15:00 Novolog SQ Q6HR KSENIA Insulin Aspart 10 unit 05/28/17 18:00 05/31/17 06:11 Novolog SQ 10 unit Q6H KSENIA Administration Insulin Glargine 10 unit 05/21/17 21:00 05/21/17 20:14 Lantus SQ 10 unit HS KSENIA Administration Insulin Glargine 20 unit 05/22/17 21:00 05/22/17 20:14 Lantus SQ 20 unit HS KSENIA Administration Insulin Glargine 40 unit 05/23/17 21:00 05/30/17 21:34 Lantus SQ 40 unit HS KSENIA Administration Labetalol HCl 10 mg 05/21/17 20:40 05/22/17 06:05 Trandate IVP 10 mg Q4H PRN Administration INCREASED blood pressure Lisinopril 10 mg 05/24/17 16:15 05/31/17 08:42 Prinivil PO 10 mg DAILY KSENIA Administration Lorazepam 1 mg 05/17/17 06:16 05/17/17 06:56 Ativan PO 05/17/17 06:17 1 mg O ONE Administration Lorazepam 0.5 mg 05/17/17 10:13 05/24/17 15:55 Ativan Inj IVP 0.5 mg Q6H PRN Administration Lorazepam 1 mg 05/24/17 19:46 05/31/17 01:43 Ativan Inj IVP 1 mg Q2H PRN Administration Agitation/Air hunger/Pain Lorazepam 0.5 - 1 mg 05/28/17 09:24 Ativan Inj IVP Q4H PRN Anxiety Magnesium Hydroxide 30 ml 05/26/17 12:41 05/26/17 13:53 Mom GT 05/26/17 12:42 30 ml O ONE Administration Menthol 1 lozenge 05/18/17 08:19 Ricola Sf MM PRN PRN Cough Metformin HCl 500 mg 05/17/17 17:30 05/18/17 10:00 Glucophage PO Not Given BIDWM KSENIA Metformin HCl 500 mg 05/19/17 09:00 05/21/17 10:52 Glucophage PO Not Given BIDWM KSENIA Methylprednisolone Sodium Succinate 125 mg 05/17/17 06:26 05/17/17 06:53 Solu-Medrol IM 05/17/17 06:27 125 mg O ONE Administration Methylprednisolone Sodium Succinate 125 mg 05/17/17 15:00 05/20/17 08:37 Solu-Medrol IVP 125 mg Q6HR KSENIA Administration Methylprednisolone Sodium Succinate 80 mg 05/20/17 15:00 05/24/17 08:57 Solu-Medrol IVP 80 mg Q6HR KSENIA Administration Methylprednisolone Sodium Succinate 80 mg 05/24/17 17:00 05/26/17 08:23 Solu-Medrol IVP 80 mg Q8HR KSENIA Administration Methylprednisolone Sodium Succinate 80 mg 05/26/17 21:00 05/29/17 08:15 Solu-Medrol IVP 80 mg Q12HR KSENIA Administration Metoclopramide HCl 5 mg 05/23/17 17:30 05/30/17 10:42 Reglan GT 5 mg Q6H KSENIA Administration Metoclopramide HCl 5 - 10 mg 05/28/17 09:24 Reglan IVP Q6H PRN Nausea &/or vomiting Metoprolol Tartrate 15 mg 05/21/17 09:18 05/21/17 09:05 Lopressor IVP 05/21/17 09:19 15 mg ONCE ONE Administration Metoprolol Tartrate 5 mg 05/28/17 10:01 05/28/17 10:00 Lopressor IVP 05/28/17 10:02 5 mg ONCE ONE Administration Morphine Sulfate 1 - 2 mg 05/17/17 10:08 05/24/17 17:56 Morphine Sulfate Inj IVP 2 mg Q2H PRN Administration Pain Morphine Sulfate 2 - 4 mg 05/28/17 09:24 05/28/17 10:17 Morphine Sulfate Inj IVP 05/29/17 09:23 4 mg Q2H PRN Administration Pain Nitroglycerin 0.4 mg 05/17/17 10:14 05/21/17 08:35 Nitrostat SL 0.4 mg Q5MIN3 PRN Administration CP Nitroglycerin 0.4 mg 05/28/17 09:24 Nitrostat SL Q5M PRN Angina --Pom--(Itraconazole 200 mg 05/17/17 21:00 05/29/17 09:39 [Itraconazole] 200 PO Not Given Mg) BID KSENIA Ondansetron HCl 4 mg 05/17/17 10:08 05/19/17 02:45 Zofran IVP 4 mg Q6H PRN Administration Nausea &/or vomiting Pantoprazole Sodium 40 mg 05/22/17 09:00 05/31/17 08:44 Protonix Iv IVP 40 mg DAILY KSENIA Administration Pharmacy Consult 1 each 05/17/17 10:32 Pharmacy Consult - Fall Risk XX 05/17/17 10:33 ONE TIME ONE Pharmacy Consult 1 each 05/27/17 10:17 Pharmacy Consult - Fall Risk XX 05/27/17 10:18 ONE TIME ONE Potassium Chloride 40 meq 05/24/17 18:10 05/26/17 06:13 Kcl Oral Liq 20 Meq/15 Ml PO Not Given BIDWM KSENIA Potassium Chloride 40 meq 05/25/17 13:00 05/26/17 08:22 Kcl Oral Liq 20 Meq/15 Ml PO 40 meq QID KSENIA Administration Potassium Chloride 40 meq 05/26/17 12:00 05/27/17 12:04 Kcl Oral Liq 20 Meq/15 Ml PO 40 meq TIDWM KSENIA Administration Potassium Chloride 40 meq 05/27/17 17:30 05/29/17 07:59 Kcl Oral Liq 20 Meq/15 Ml PO 40 meq BIDWM KSENIA Administration Potassium Chloride 40 meq 05/29/17 09:00 05/30/17 08:42 Kcl Oral Liq 20 Meq/15 Ml PO 40 meq DAILY KSENIA Administration Promethazine HCl 12.5 - 25 mg 05/28/17 09:24 Phenergan Inj IVP Q6HR PRN Nausea &/or vomiting Simvastatin 20 mg 05/17/17 21:00 05/27/17 20:36 Zocor PO Not Given HS KSENIA Vancomycin HCl 1 each 05/21/17 15:19 05/21/17 15:53 Pharmacy Consult - Vancomycin 05/21/17 15:20 1 each O ONE Administration - Urinary Catheter Management Urethral Cath placed during this visit: no Results 05/31/17 04:44 05/31/17 04:44 CBC 05/31/17 Range/Units 04:44 WBC 13.5 H (4.5-11.0) T/MM3 RBC 3.90 L (4.50-5.90) M/MM3 Hgb 11.6 L (13.5-17.5) GM/DL Hct 38.0 L (41-53) % Plt Count 87 L (130-400) T/MM3 Neut # (Auto) Not performed Lymph # (Auto) Not performed [place] # (Auto) Not performed Eos # (Auto) Not performed Baso # (Auto) Not performed Comprehensive Metabolic Panel 05/31/17 Range/Units 04:44 Sodium 143 (134-144) MEQ/L Potassium 4.7 (3.6-5) MEQ/L Chloride 107 (98-107) MEQ/L Carbon Dioxide 31 H (22-30) MEQ/L BUN 48.0 H (9-20) MG/DL Creatinine 0.6 L (0.8-1.5) MG/DL Glucose 292 H (75-110) MG/DL Calcium 8.0 L (8.4-10.2) MG/DL Albumin 2.5 L (3.5-5.0) G/DL Intake and Output 05/31/17 05/31/17 05/31/17 06:59 14:59 22:59 Intake Total 1490 / 1490 790 / 790 Output Total 595 / 595 525 / 525 Balance 895 / 895 265 / 265 Intake: IV 480 / 480 Ns 1,000 ml @ 60 mls/hr IV . 480 / 480 [id number] [facility] Rx#:[id number] Oral 60 / 60 Tube Feeding 480 / 480 420 / 420 Oral 480 / 480 420 / 420 Intake, Gastric Tube Irrigant 530 / 530 310 / 310 Amount Oral 530 / 530 310 / 310 Output: Urine Amount (Catheter) 595 / 595 525 / 525 Other: Urine Appearance Clear Clear Urine Color Light [place] Yellow Weight 133.3 kg Patient Weight 06/01/17 06:59 Weight 133.3 kg Assessment and Plan - Assessment and Plan (1) Community acquired pneumonia Current visit: No Status: Acute (2) Acute and chronic respiratory failure with hypercapnia Current visit: Yes Status: Acute (3) Chest pain Current visit: Yes Status: Acute (4) Atherosclerotic heart disease of [place] coronary artery without angina pectoris Current visit: Yes Status: Chronic (5) Essential (primary) hypertension Current visit: Yes Status: Chronic (6) Type 2 diabetes mellitus without complications Current visit: Yes Status: Chronic (7) Obesity (BMI 30-39.9) Current visit: Yes Status: Chronic (8) ANGELLA (obstructive sleep apnea) Current visit: Yes Status: Chronic (9) NSTEMI (non-ST elevated myocardial infarction) Current visit: Yes Status: Acute - Attestation Attestation Narrative: 05/31/17 15:37 Recommendation After examining the patient I agree with the above assessment. I am involved in the formulation of the patient's plan of care. Hospital Course Summary Disclaimer: The visit summary below is not to be considered part of the above Progress Note.
[2017-05-29] MEDS: ASPIRIN *EC* 81 MG TABLET PO SCH ×2 (09:37→16:57)
[2017-05-29] MEDS: HYDROCODONE/APAP 7.5 MG/325 MG TABLET PO SCH ×2 (09:38→20:07)
[2017-05-29] MEDS: ITRACONAZOLE 200 MG PO SCH (09:39)
--- NOTE | 2017-05-29 10:05 | Progress Note ---
- Date 05/29/17 Subjective: Patient is more responsive today. Shakes his head "no" to most questions. Working with OT at the time of exam. He is on NC currently and appears to be tolerating. No significant events overnight. Has been afebrile x48 hours. Objective Vital signs: Temperature 98.5 F 05/29/17 07:01 Pulse Rate 119 H 05/29/17 07:30 Respiratory Rate 32 H 05/29/17 07:30 Blood Pressure 151/78 H 05/29/17 07:01 Pulse Oximetry 94 05/29/17 07:30 Rhythm: Normal Sinus Rhythm Height/Weight/BMI: Height 6 ft 0.83 in Weight 143.1 kg Body Mass Index 41.5 - Constitutional Present: no acute distress, morbidly obese - Routine HEENT Exam Head: Present: normocephalic, atraumatic Eye: Present: EOMI, conjunctivae pink ENT: Present: mucous membranes moist, nares patent - Routine Respiratory Exam Present: decreased breath sounds, distant breath sounds. Absent: respiratory distress - Routine Cardiovascular Exam Present: no murmur, tachycardia - Routine Abdominal Exam Present: soft, normoactive bowel sounds. Absent: tenderness - Routine Extremities Exam Present: normal capillary refill. Absent: cyanosis, clubbing - Routine Musculoskeletal Exam Musculoskeletal: Present: no clubbing or cyanosis, no erythema - Routine Skin Exam Present: dry, warm - Routine Neurological Exam Present: altered mental status more alert and fixes gaze to voice, shakes head "no" to most questions. Not following commands for OT - Routine Psychiatric Exam Present: unable to assess Results - Labs CBC & Chem 7: 05/29/17 03:47 05/29/17 03:47 Microbiology Results: Microbiology 05/25/17 15:49 Midline Blood Culture - Preliminary No Growth After 3 Days 05/25/17 15:43 Port/Picc Blood Culture - Preliminary No Growth After 3 Days 05/20/17 04:36 Midline Blood Culture - Final No Growth After 5 Days 05/20/17 04:36 Midline Blood Culture - Final No Growth After 5 Days 05/21/17 13:45 Sputum, Expectorated Gram Stain - Final 05/21/17 13:45 Sputum, Expectorated Sputum Culture - Final Yeast, not C. albicans Normal Respiratory Charly - ABG Interpretation ABG results: 05/27/17 05/28/17 12:50 16:45 ABG pH 7.450 7.477 H ABG pCO2 53 H 45 ABG pO2 61 L 70 L ABG HCO3 36.8 H 33.0 H ABG Total CO2 38.4 H 35.0 H ABG O2 Saturation 92.0 L 95.0 ABG Base Excess 11.0 H 9.0 H Assessment and Plan Assessment and Plan: Assessment Acute on chronic respiratory failure with hypercapnia and hypoxia - baseline home oxygen at 5L; intubated 05/21-extubated on 05/27 Leukocytosis Wide complex tachycardia; s/p cardioversion with return to sinus tach NSTEMI-peak troponin 3.09, diffuse T changes, s/p heart cath with 2 stents 05/28 Thrombocytopenia-05/24/17 COPD exacerbation Bilateral lower lobe pneumonia-05/21/17 Bacteremia secondary to streptococcus viridans (1 of 2 BC from 05/17/17 positive) Hypokalemia-05/23/17 Recurrent fever, afebrile x48 hours Transaminitis Chronic Medical: Cardiomyopathy-EF 30% by echo 05/21/17 Pulmonary nodule - Irregular 2.2cm left lower lobe pulmonary nodule Anemia, unspecified, stable Coronary Artery Disease Hypertension Sleep Apnea Diabetes Mellitus Type 2 - A1c on 04/17/17 was 6.4% GERD Osteoarthritis Peripheral neuropathy Fibromyalgia Depression Tobacco dependency Peripheral vascular disease Morbid obesity - BMI >40 Plan Extubated 05/27 Placed on CPAP with home equipment. Baseline 5L Currently tolerating NC, oxygen support as needed to maintain sats and mentation , pulm consulted and following CXR-stable Leukocytosis-likely 2/2 steroid effect, PCT negative, no fever x48 hours Cefepime and Levaquin currently. Vanc discontinued 05/24. Likely d/c abx today. Will consult ID for abx recs Failed speech therapy Continue tube feeds and meds via [facility] Monitor fluid status-hold evening dose of lasix Peak troponin 3.09 on 05/21/17 with diffuse T-wave changes; heart cath 05/28-now on ASA and Bivalirudin Monitor platelet count-currently WNL Monitor BP, adjust medications as needed Monitor glucose and continue insulin as ordered Discussed with nursing staff, and infectious disease - Physician Narrative Physician: other Narrative: Date: 05/29/17 Time: 1002 Hospital Course Summary Disclaimer: The visit summary below is not to be considered part of the above Progress Note. Hospital Course: 05/17/17 Admission Admit to observation status under the care of Dr. Lopez. Sepsis work up initiated in ED. Patient meeting SIRS criteria based on tachycardia, tachypnea and reported fevers at home without obvious source. Initial lactate was 1.4 with repeat lactate decreased to 0.9. Blood cultures pending. WBC stable at 5.0. CXR revealed left basilar scarring without focal pneumonia. Respiratory panel was negative. Patient was given DuoNeb treatments and Solu-Medrol 125mg IV in ED. Will continue respiratory care with DuoNeb treatments QID and Q6H PRN as well as Solu -Medrol 125mg IV Q6H. History of diabetes with A1c on 04/17/17 at 6.4%. Continue home medications and monitor blood sugars closely given treatment with steroids. Sliding scale insulin as indicated for hyperglycemia. Patient was placed on BiPAP in ED with improvement. Continue BiPAP as indicated. Ativan as needed for anxiety and agitation while on BiPAP. Will monitor closely on telemetry with continuous pulse oximetry. Oxygen as needed to maintain SAO2 between 90-95%, weaning as able to baseline of 5L. SCDs for DVT prophylaxis. Given sudden onset of dyspnea, will obtain CT angio chest for further evaluation of PE - results pending. NS at 100cc/hr for hydration given decreased oral intake as on BiPAP. Monitor daily weight closely for signs of fluid overload. Recheck labs in AM to monitor blood counts, electrolytes and renal function. Patient wishes to maintain FULL CODE status. Upon discharge, patient's care will be returned to his PCP, Dr. Odom. 05/18/17 Don reports that his breathing is a little better today and is he is more alert. New cough with sputum production. 1 of the 2 blood cultures obtained on admission is POSITIVE for Streptococcus. Night telehospitalist was notified and Rocephin 2g IV Q24 hours was initiated for antimicrobial coverage. Given new cough, will try and obtain a sputum culture. Mucinex for mucolytic effect. Ricola for cough. Continue respiratory care including nebulized treatments. Continue to encourage BiPAP as indicated and supplemental oxygen to maintain SAO2 between 90 -95%. Wean oxygen to baseline of 5L as able. Given sudden onset of dyspnea, CT angio chest was obtained and revealed no PE but did note 2.2cm left lower lobe pulmonary nodule raising concern for primary lung malignancy and recommended further evaluation. Will discuss consideration of pulmonary consult for further evaluation. Continue Solu-Medrol 125mg IV Q6 hours. Anticipate initiation of tapering in near future. Blood sugars remain elevated, most likely steroid effect, ranging from 160's-> 200. Continue sliding scale insulin. Given recent CT with contrast, will hold metformin and restart 05/19/17. Continue NS at 75cc/hr for hydration. Monitor urinary output and daily weight closely for signs of fluid over load. Oral intake is good. Consider discontinuation of fluids this afternoon. Ativan as needed for anxiety and agitation while on BiPAP. Troponins continue to trend up slowing - 0.015, 0.017, 0.029, 0.045 and 0.048 this morning. Will recheck troponin at 1030 and continue to monitor closely on telemetry. Patient denies chest pain. SCDs for DVT prophylaxis. Recheck labs in AM to monitor blood counts, electrolytes and renal function. Discussed at length with patient and family the importance of smoking cessation. He admits to wanting to stop smoking and inquired about initiation of Chantix. Continue Wellbutrin for smoking cessation. With BC positive and starting IV antibiotics, will change admission status to inpatient. Anticipate greater than 2 midnights of care needed. 05/19/17 Continue with Rocephin for antimicrobial coverage. With lungs still very tight and congested, will continue with Solu-Medrol 125mg IV q 6 hours. Continue Neb treatments and acapella. Encourage use of BiPAP as much as able to help his chronic hypercapnea. Stressed with about the importance of him not smoking. She understand. Will consult with Dr Ashby for pulm evaluation. Will discontinue IVF. May restart metformin this evening. Sugars with elevation secondary to steroids. Did give Diamox 500mg x1 this am for fluid motivation and to help minimize contraction alkalosis. PT/OT to evaluate and initiate treatment tomorrow for his significant pulmonary debility. 05/20 Continue with Rocephin for antimicrobial coverage. One blood culture was positive with streptococcus Viridans, Repeat BC were drawn this morning. Scheduled breathing tx, IV solu-medrol, as well as oxygen and Bipap Appreciate Dr Ashby consultation. Likely require bronchoscopy for biopsy of lung mass. Continue to monitor BGM remain elevated. Metformin was resumed as well as sliding scale insulin. Encourage PT/OT for strengthening 05/21 Resp failure --> ABG shows resp acidosis and he was placed on BiPAP with improvement in color. Repeat ABG shows pH 7.12, pCO2 106, pO2 185. CXR ordered. BG 230. Chest pain --> EKG shows ST changes and widened QRS, poss a-flutter; troponin pending. Dr. Govea consulted. He's had 2 NTG but remains very hypertensive with SBP 220s. Pt failed to respond to adenosine, and subseqently was cardioverted with conversion to sinus tach. Rapid response activated and Dr. Ramírez was at bedside x20 min. Transferred to CCU, where pt was met by Dr. Govea for evaluation. Continue treatment for resp status including steroids and Rocephin. 05/22 Patient remains on a ventilator requiring continuous sedation. Oxygenation borderline on 40% FiO2-oxygen flow increased to 60% by pulmonary earlier today. Continue triple antibiotics (cefepime, Levaquin, vancomycin) pending sputum culture due to extensive pneumonia on CT/chest x-ray yesterday-not present on initial films. Peak troponin 3.09 with diffuse T-wave changes; discussed with Dr. Govea and will require cardiac catheterization in the future. Continue heparin drip. Blood pressure is uncontrolled-clonidine patch initiated earlier, IV hydralazine added as needed for systolic pressures above 180. OG placed-resume statin, SSRI, atenolol, and aspirin. Assess gastric residuals today-anticipate beginning tube feedings tomorrow. Adequate urine output, continue to monitor. Blood sugars remain elevated, off metformin at present. Increase basal insulin. 05/23 Patient remains on a ventilator requiring continuous sedation. Continue triple antibiotics (cefepime, Levaquin, vancomycin); suspect aspiration pneumonia-sputum culture normal charly. Extensive infiltrates on CT chest. Repeat chest x-ray in a.m. Fluid balance positive-roughly 5 L over several days, weight up-diuresis today. Potassium supplemented IV earlier today. Peak troponin 3.09 with diffuse T-wave changes; discussed with Dr. Govea and will require cardiac catheterization in the future. Continue heparin drip. Blood pressure remains elevated but improved from yesterday with addition of clonidine patch and resumption of atenolol per OG. IV hydralazine available as needed for systolic pressures above 180. OG placed 05/22-low volume gastric output overnight and tolerating medications per OG. Will initiate tube feedings with low glycemic formula at 20 mL per hour overnight. Nutrition consult. Blood sugars remain elevated, off metformin at present and on steroids. Increase basal insulin to 40 units anticipating further increase in blood sugar with initiation of tube feedings. 05/24 Remains ventilator dependent. Steroids decreased. Vancomycin discontinued, continue Levaquin and cefepime for probable aspiration pneumonia and Streptococcus viridans positive blood culture. Continue diuresis, blood pressures elevated-atenolol increased and lisinopril initiated to improve control. Tolerating tube feedings at low-volume, converted pulmonary formula with goal of 80 mL per hour. Platelet count dropping, heparin discontinued and bivalirudin initiated. 05/25 Tolerating spontaneous breathing trial, steroids decreased. Continues to require continuous sedation. Lisinopril increased to 20 mg to improve blood pressure control. Platelet count down to 100K; HIT Ab pending. Fevers overnight without evidence source, leukocytosis/left shift resolved improved. Lines to be cultured. 05/26 FiO2 titrated to 40%; diuresing well-continue same. Spontaneous breathing trial planned for the morning with possible extubation at that time. Cardiac status stable, no further tachyarrhythmias. Trend to improved blood pressures. Cardiac catheterization planned in the future. Remains on bivalirudin. Platelet count 86K today, HIT Ab pending. Tube feedings at goal, blood sugars significantly elevated-NovoLog scheduled every 6 hours and when necessary. Chest x-ray improved, remains on Levaquin and cefepime for probable aspiration pneumonia. Blood cultures drawn yesterday negative thus far. 05/27 Extubated this afternoon, OG discontinued in conjunction with extubation. CPAP initiated for respiratory support. Speech therapy, PT, OT consultations tomorrow. Anticipate significant reduction in fluid volume off sedating medications and tube feedings--> Lasix dose decreased to twice daily administration. Platelet count stabilizing, HIT Ab negative. Intermittent fever, remains on antibiotics for possible aspiration pneumonia. Repeat blood cultures negative. 05/29 Extubated 05/27 Placed on CPAP with home equipment. Baseline 5L Currently tolerating NC, oxygen support as needed to maintain sats and mentation , pulm consulted and following CXR-stable Leukocytosis-likely 2/2 steroid effect, PCT negative, no fever x48 hours Cefepime and Levaquin currently. Vanc discontinued 05/24. Likely d/c abx today. Will consult ID for abx recs Failed speech therapy Continue tube feeds and meds via [place] Monitor fluid status-hold evening dose of lasix Peak troponin 3.09 on 05/21/17 with diffuse T-wave changes; heart cath 05/28-now on ASA and Bivalirudin Monitor platelet count-currently WNL Monitor BP, adjust medications as needed Monitor glucose and continue insulin as ordered Discussed with nursing staff, and infectious disease
[2017-05-29] MEDS: ATENOLOL 25 MG TABLET PO SCH ×2 (10:16→20:20)
--- NOTE | 2017-05-29 11:07 | Pulmonology Progress Note ---
<SandraAriane D - Last Filed: 05/29/17 11:03> Subjective Principal diagnosis: SOB, respiratory failure Interval history: Pt currently in bed and awake, still slightly confused. Currently on O2 at 5L per NC and tolerating, sats 93%. Exam Vital signs: Temperature 98.5 F 05/29/17 07:01 Pulse Rate 100 05/29/17 10:45 Respiratory Rate 31 H 05/29/17 10:45 Blood Pressure 106/69 05/29/17 10:00 Pulse Oximetry 93 05/29/17 10:45 Inpatient Medications: Generic Name Dose Route Start Last Admin Trade Name Freq PRN Reason Stop Dose Admin Acetaminophen 325 - 650 mg 05/17/17 10:08 05/26/17 20:58 Tylenol PO 650 mg Q5H PRN Administration Discomfort Acetaminophen 650 mg 05/21/17 15:10 Tylenol Supp DC Q5H PRN Pain Acetaminophen 325 - 650 mg 05/28/17 09:24 Tylenol PO Q5H PRN Pain Hydrocodone Bitart/Acetaminophen 1 tab 05/17/17 21:00 05/29/17 09:38 [place] 7.5/325 PO 1 tab BID KSENIA Administration Hydrocodone Bitart/Acetaminophen 1 tab 05/17/17 10:14 [place] 7.5/325 PO Q6H PRN Pain Hydrocodone Bitart/Acetaminophen 1 - 2 tab 05/28/17 09:24 [place] 5/325 PO Q5H PRN Pain Al Hydroxide/Mg Hydroxide 30 ml 05/28/17 09:24 Maalox Plus PO Q3H PRN Indigestion Albuterol/Ipratropium 3 ml 05/17/17 10:11 Duoneb AEROSOL RTQID PRN Albuterol/Ipratropium 3 ml 05/21/17 15:15 05/29/17 10:39 Duoneb AEROSOL 3 ml Q4H KSENIA Administration Amlodipine Besylate 10 mg 05/24/17 13:46 05/29/17 08:08 Norvasc PO 10 mg DAILY KSENIA Administration Aspirin 81 mg 05/22/17 16:00 05/29/17 08:05 Asa GT 81 mg DAILY KSENIA Administration Aspirin 81 mg 05/28/17 09:24 05/29/17 09:37 Ecotrin PO 81 mg DAILY KSENIA Administration Atenolol 25 mg 05/29/17 09:00 05/29/17 10:16 Tenormin PO 25 mg BID KSENIA Administration Atorvastatin Calcium 80 mg 05/28/17 21:00 05/28/17 20:48 Lipitor PO 80 mg HS KSENIA Administration Atropine Sulfate 0.5 mg 05/28/17 09:24 Atropine IVP Q5M PRN Bradycardia Benzocaine 1 lozenge 05/20/17 18:54 Cepacol Sore Throat Lozenge MM Q2HR PRN Sore throat Bisacodyl 10 mg 05/27/17 15:11 Dulcolax RECTALLY DAILY PRN Constipation Bisacodyl 5 - 10 mg 05/28/17 09:24 Dulcolax PO DAILY PRN Constipation Bisacodyl 10 mg 05/28/17 09:24 Dulcolax RECTALLY DAILY PRN Constipation Budesonide 0.5 mg 05/17/17 19:00 05/29/17 06:52 Pulmicort Inhalation AEROSOL 0.5 mg RTBID [facility] Administration Bupropion HCl 150 mg 05/17/17 21:00 05/29/17 08:13 Wellbutrin Sr PO Not Given BID [facility] Citalopram Hydrobromide 40 mg 05/18/17 09:00 05/29/17 08:08 Celexa PO 40 mg DAILY [facility] Administration Clonidine HCl 0.1 mg 05/22/17 09:00 05/29/17 08:01 Catapres-Tts 1 TD 0.1 mg Q7D@0900 [facility] Administration Clonidine HCl 1 removal 05/29/17 08:59 05/29/17 08:13 Catapres Patch Removal TD 1 removal Q7D [facility] Administration Furosemide 20 mg 05/29/17 09:00 Lasix IVP DAILY [facility] Gabapentin 300 mg 05/17/17 15:00 05/29/17 08:06 Neurontin PO 300 mg TID [facility] Administration Glucose 37.5 gm 05/17/17 10:12 Glutose 15 PO PRN PRN Hypoglycemia Guaifenesin 400 mg 05/29/17 12:00 Robitussin Liq PO Q6H [facility] Hydralazine HCl 10 mg 05/22/17 15:01 05/28/17 06:06 Apresoline IVP 10 mg Q4H PRN Administration Hypertension Cefepime HCl 1 gm/ Sodium 50 mls @ 100 mls/hr 05/21/17 15:30 05/29/17 10:16 Chloride IV 100 mls/hr Q6H [facility] Administration Levofloxacin/Dextrose 750 mg in 150 mls @ 100 mls/hr 05/21/17 16:00 05/28/17 17:15 Levaquin Premix IV Infused Q24H KSENIA Infusion Insulin Aspart 2 - 14 unit 05/21/17 11:43 05/29/17 05:55 Novolog SQ 7 unit SS PRN Administration Hyperglycemia Protocol Insulin Aspart 10 unit 05/28/17 18:00 05/29/17 05:54 Novolog SQ 10 unit Q6H KSENIA Administration Insulin Glargine 40 unit 05/23/17 21:00 05/28/17 21:03 Lantus SQ 40 unit HS [facility] Administration Lisinopril 10 mg 05/24/17 16:15 05/29/17 08:07 Prinivil PO 10 mg DAILY [facility] Administration Lorazepam 1 mg 05/24/17 19:46 05/26/17 05:02 Ativan Inj IVP 1 mg Q2H PRN Administration Agitation/Air hunger/Pain Lorazepam 0.5 - 1 mg 05/28/17 09:24 Ativan PO Q4H PRN Anxiety Lorazepam 0.5 - 1 mg 05/28/17 09:24 Ativan Inj IVP Q4H PRN Anxiety Magnesium Hydroxide 30 ml 05/28/17 09:24 Mom PO DAILY PRN Constipation Menthol 1 lozenge 05/18/17 08:19 Ricola Sf MM PRN PRN Cough Methylprednisolone Sodium Succinate 80 mg 05/26/17 21:00 05/29/17 08:15 Solu-Medrol IVP 80 mg Q12HR [facility] Administration Metoclopramide HCl 5 mg 05/23/17 17:30 05/29/17 08:17 Reglan GT 5 mg Q6H [facility] Administration Metoclopramide HCl 5 - 10 mg 05/28/17 09:24 Reglan IVP Q6H PRN Nausea &/or vomiting Morphine Sulfate 2 - 4 mg 05/28/17 09:24 Morphine Sulfate Inj IVP Q5M PRN Angina Nitroglycerin 0.4 mg 05/17/17 10:14 05/21/17 08:35 Nitrostat SL 0.4 mg Q5MIN3 PRN Administration CP Nitroglycerin 0.4 mg 05/28/17 09:24 Nitrostat SL Q5M PRN Angina Omeprazole 40 mg 05/18/17 06:30 05/29/17 07:07 Prilosec PO Not Given ACB KSENIA Ondansetron HCl 4 mg 05/17/17 10:08 05/19/17 02:45 Zofran IVP 4 mg Q6H PRN Administration Nausea &/or vomiting Ondansetron HCl 4 mg 05/28/17 09:24 Zofran IVP Q6H PRN Nausea &/or vomiting Pantoprazole Sodium 40 mg 05/22/17 09:00 05/29/17 08:16 Protonix Iv IVP 40 mg DAILY KSENIA Administration Potassium Chloride 40 meq 05/29/17 09:00 05/29/17 09:40 Kcl Oral Liq 20 Meq/15 Ml PO 40 meq DAILY KSENIA Administration Promethazine HCl 12.5 - 25 mg 05/28/17 09:24 Phenergan Inj IVP Q6HR PRN Nausea &/or vomiting Sodium Chloride 10 - 80 ml 05/17/17 05:20 05/27/17 01:31 Iv Flush IVF 50 ml PRN PRN Administration Flushing Sodium Chloride 1 spray 05/19/17 11:42 05/19/17 16:37 [place] Nasal Moisturizing [place] NOSTRIL 1 spray PRN PRN Administration Congestion Sodium Chloride 500 ml 05/25/17 21:40 05/25/17 21:52 Normal Saline IV 500 ml PRN PRN Administration Ticagrelor 90 mg 05/28/17 21:01 05/29/17 08:06 Brilinta PO 90 mg Q12H KSENIA Administration Discontinued Medications Generic Name Dose Route Start Last Admin Trade Name Freq PRN Reason Stop Dose Admin Acetazolamide 500 mg 05/19/17 10:51 05/19/17 11:25 Diamox PO 05/19/17 10:52 500 mg O ONE Administration Adenosine 12 mg 05/21/17 09:17 05/21/17 08:50 Adenocard IVP 05/21/17 09:18 12 mg O ONE Administration Adenosine 6 mg 05/21/17 09:18 05/21/17 09:23 Adenocard IVP 05/21/17 09:19 6 mg O ONE Administration Albuterol/Ipratropium 6 ml 05/17/17 05:19 05/17/17 05:33 Duoneb AEROSOL 05/17/17 05:20 6 ml O ONE Administration Albuterol/Ipratropium 3 ml 05/17/17 11:00 05/21/17 18:22 Duoneb AEROSOL Not Given RTQID [facility] Aspirin 81 mg 05/18/17 09:00 05/23/17 08:26 Asa PO Not Given DAILY [facility] Atenolol 25 mg 05/18/17 09:00 05/24/17 08:58 Tenormin PO 25 mg DAILY KSENIA Administration Atenolol 50 mg 05/25/17 09:00 05/28/17 12:30 Tenormin PO Not Given DAILY [facility] Atenolol 25 mg 05/24/17 09:40 05/24/17 11:09 Tenormin PO 05/24/17 09:41 25 mg O ONE Administration Bivalirudin 250 mg 05/24/17 14:15 Angiomax IV NOW [facility] Enoxaparin Sodium 1 each 05/18/17 10:47 05/18/17 12:54 Pharmacy Consult - Lovenox 05/18/17 10:48 1 each O ONE Administration Enoxaparin Sodium 50 mg 05/18/17 11:45 05/20/17 08:37 Lovenox SQ 50 mg DAILY [facility] Administration Enoxaparin Sodium 142 mg 05/27/17 17:00 05/28/17 09:34 Lovenox SQ 142 mg DAILY [facility] Administration Furosemide 20 mg 05/18/17 09:00 05/20/17 08:37 Lasix PO 20 mg DAILY KSENIA Administration Furosemide 40 mg 05/21/17 09:37 05/21/17 09:45 Lasix IVP 05/21/17 09:38 40 mg ONCE ONE Administration Furosemide 20 mg 05/23/17 21:00 05/24/17 08:59 Lasix IVP 20 mg Q12HR KSENIA Administration Furosemide 20 mg 05/24/17 17:00 05/27/17 09:31 Lasix IVP 20 mg Q8HR [facility] Administration Furosemide 20 mg 05/27/17 21:00 05/29/17 08:09 Lasix IVP 20 mg Q12H KSENIA Administration Guaifenesin 1,200 mg 05/18/17 09:00 05/29/17 08:14 Mucinex [place] PO Not Given BID KSENIA Heparin Sodium (Beef Lung) 5,000 unit 05/21/17 09:23 05/21/17 10:07 Heparin Bolus IVP 05/21/17 09:24 5,000 unit O ONE Administration Heparin Sodium (Beef Lung) 3,000 unit 05/21/17 17:45 05/21/17 17:53 Heparin Bolus IVP 05/21/17 17:46 3,000 unit O ONE Administration Heparin Sodium (Beef Lung) 3,000 unit 05/22/17 03:37 05/22/17 03:46 Heparin Bolus IVP 05/22/17 03:38 3,000 unit O ONE Administration Heparin Sodium (Porcine) 1 each 05/21/17 09:08 Pharmacy Consult - Heparin MC 05/21/17 09:09 ONE TIME ONE Hydralazine HCl 5 mg 05/22/17 08:47 05/22/17 10:09 Apresoline IVP 5 mg Q6H PRN Administration Hypertension Sodium Chloride 1,000 mls @ 999.9 mls/hr 05/17/17 05:44 05/17/17 11:20 Normal Saline IV 05/17/17 06:43 Infused .Q1H ONE Infusion Sodium Chloride 1,000 mls @ 75 mls/hr 05/17/17 10:08 05/19/17 11:19 Normal Saline IV Infused .[id number] KSENIA Infusion Ceftriaxone Sodium 2 gm/ 100 mls @ 200 mls/hr 05/18/17 01:15 05/18/17 01:50 Sodium Chloride IV Infused Q24H KSENIA Infusion Ceftriaxone Sodium 2 gm/ 50 mls @ 100 mls/hr 05/18/17 21:00 05/20/17 21:55 Sodium Chloride IV Infused Q24H KSENIA Infusion Heparin Sodium (Porcine) 20,000 unit in 500 mls @ 44 mls/hr 05/21/17 09:30 13:17 Heparin Drip IV Infused .[id number] KSENIA Titration Protocol Dexmedetomidine HCl 200 mcg/ 52 mls @ 6.87 mls/hr 05/21/17 09:52 05/21/17 20: 00 Sodium Chloride IV 05/21/17 20:29 0 mcg/kg/hr .Q7H35M PRN 0 mls/hr Protocol Titration 0.2 MCG/KG/HR Propofol 1,000 mg in 100 mls @ 3.969 mls/hr 05/21/17 10:39 05/21/17 14:28 Diprivan IV 0 mcg/kg/min .Q24H PRN 0 mls/hr Protocol Infusion 5 MCG/KG/MIN Fentanyl 1,000 mcg/ Sodium 100 mls @ 0 mls/hr 05/21/17 13:02 05/27/17 14:45 Chloride IV Infused .Q0M PRN Titration Protocol Per Protocol Sodium Chloride 250 mls @ 999.9 mls/hr 05/21/17 13:15 05/21/17 14:28 Normal Saline IV 05/21/17 13:29 Infused .Q15M KSENIA Infusion Vancomycin HCl 1,500 mg/ 500 mls @ 250 mls/hr 05/21/17 18:00 05/24/17 12:15 Sodium Chloride IV Infused Q8H KSENIA Infusion Dexmedetomidine HCl 1,000 mcg/ 260 mls @ 6.87 mls/hr 05/21/17 20:30 05/27/17 14:45 Sodium Chloride IV 05/27/17 14:45 Infused .Q24H PRN Titration Protocol 0.2 MCG/KG/HR Potassium Chloride 10 meq in 100 mls @ 100 mls/hr 05/23/17 09:45 05/23/17 17: 34 Potassium Chloride Premix IV 05/23/17 13:44 Infused Q1H KSENIA Infusion Heparin Sodium (Porcine) 20,000 unit in 500 mls @ 45 mls/hr 05/23/17 16:00 06:16 Heparin Drip IV Not Given .Q11H7M KSENIA Protocol Potassium Chloride 10 meq in 100 mls @ 100 mls/hr 05/24/17 09:45 05/24/17 15: 56 Potassium Chloride Premix IV 05/24/17 13:44 Not Given Q1H KSENIA Potassium Chloride 10 meq/ 105 mls @ 105 mls/hr 05/24/17 11:45 05/24/17 17:00 Sodium Chloride IV 05/24/17 15:44 Infused Q1H KSENIA Infusion Bivalirudin 250 mg/ Sodium 500 mls @ 43.2 mls/hr 05/24/17 15:15 05/27/17 17: 34 Chloride IV Not Given .[id number] KSENIA Sodium Chloride 1,000 mls @ 75 mls/hr 05/28/17 07:45 05/28/17 14:00 Normal Saline IV Infused .[id number] KSENIA Infusion Insulin Aspart 1 - 5 unit 05/17/17 10:12 05/18/17 06:06 Novolog SQ 2 unit SS PRN Administration Hyperglycemia Protocol Insulin Aspart 2 - 8 unit 05/18/17 08:22 05/21/17 07:30 Novolog SQ 3 unit SS PRN Administration Hyperglycemia Protocol Insulin Aspart 15 unit 05/20/17 10:32 05/20/17 10:36 Novolog SQ 05/20/17 10:33 15 unit ONE TIME ONE Administration Insulin Aspart 10 unit 05/26/17 12:00 05/26/17 13:54 Novolog SQ Not Given Q6H KSENIA Insulin Aspart 10 unit 05/26/17 15:00 05/27/17 21:06 Novolog SQ Not Given 0300,0900,1500,2100 KSENIA Insulin Aspart 10 unit 05/28/17 15:00 Novolog SQ Q6HR KSENIA Insulin Glargine 10 unit 05/21/17 21:00 05/21/17 20:14 Lantus SQ 10 unit HS KSENIA Administration Insulin Glargine 20 unit 05/22/17 21:00 05/22/17 20:14 Lantus SQ 20 unit HS KSENIA Administration Labetalol HCl 10 mg 05/21/17 20:40 05/22/17 06:05 Trandate IVP 10 mg Q4H PRN Administration INCREASED blood pressure Lorazepam 1 mg 05/17/17 06:16 05/17/17 06:56 Ativan PO 05/17/17 06:17 1 mg O ONE Administration Lorazepam 0.5 mg 05/17/17 10:13 05/24/17 15:55 Ativan Inj IVP 0.5 mg Q6H PRN Administration Magnesium Hydroxide 30 ml 05/26/17 12:41 05/26/17 13:53 Mom GT 05/26/17 12:42 30 ml O ONE Administration Metformin HCl 500 mg 05/17/17 17:30 05/18/17 10:00 Glucophage PO Not Given BIDWM KSENIA Metformin HCl 500 mg 05/19/17 09:00 05/21/17 10:52 Glucophage PO Not Given BIDWM [facility] Methylprednisolone Sodium Succinate 125 mg 05/17/17 06:26 05/17/17 06:53 Solu-Medrol IM 05/17/17 06:27 125 mg O ONE Administration Methylprednisolone Sodium Succinate 125 mg 05/17/17 15:00 05/20/17 08:37 Solu-Medrol IVP 125 mg Q6HR KSENIA Administration Methylprednisolone Sodium Succinate 80 mg 05/20/17 15:00 05/24/17 08:57 Solu-Medrol IVP 80 mg Q6HR KSENIA Administration Methylprednisolone Sodium Succinate 80 mg 05/24/17 17:00 05/26/17 08:23 Solu-Medrol IVP 80 mg Q8HR KSENIA Administration Metoprolol Tartrate 15 mg 05/21/17 09:18 05/21/17 09:05 Lopressor IVP 05/21/17 09:19 15 mg ONCE ONE Administration Metoprolol Tartrate 5 mg 05/28/17 10:01 05/28/17 10:00 Lopressor IVP 05/28/17 10:02 5 mg ONCE ONE Administration Morphine Sulfate 1 - 2 mg 05/17/17 10:08 05/24/17 17:56 Morphine Sulfate Inj IVP 2 mg Q2H PRN Administration Pain Morphine Sulfate 2 - 4 mg 05/28/17 09:24 05/28/17 10:17 Morphine Sulfate Inj IVP 05/29/17 09:23 4 mg Q2H PRN Administration Pain --Pom--(Itraconazole 200 mg 05/17/17 21:00 05/29/17 09:39 [Itraconazole] 200 PO Not Given Mg) BID [facility] Pharmacy Consult 1 each 05/17/17 10:32 Pharmacy Consult - Fall Risk XX 05/17/17 10:33 ONE TIME ONE Pharmacy Consult 1 each 05/27/17 10:17 Pharmacy Consult - Fall Risk XX 05/27/17 10:18 ONE TIME ONE Potassium Chloride 40 meq 05/24/17 18:10 05/26/17 06:13 Kcl Oral Liq 20 Meq/15 Ml PO Not Given BIDWM KSENIA Potassium Chloride 40 meq 05/25/17 13:00 05/26/17 08:22 Kcl Oral Liq 20 Meq/15 Ml PO 40 meq QID KSENIA Administration Potassium Chloride 40 meq 05/26/17 12:00 05/27/17 12:04 Kcl Oral Liq 20 Meq/15 Ml PO 40 meq TIDWM KSENIA Administration Potassium Chloride 40 meq 05/27/17 17:30 05/29/17 07:59 Kcl Oral Liq 20 Meq/15 Ml PO 40 meq BIDWM KSENIA Administration Simvastatin 20 mg 05/17/17 21:00 05/27/17 20:36 Zocor PO Not Given HS KSENIA Vancomycin HCl 1 each 05/21/17 15:19 05/21/17 15:53 Pharmacy Consult - Vancomycin 05/21/17 15:20 1 each O ONE Administration - Constitutional no acute distress, morbidly obese, cooperative Comments: slightly confused - Routine HEENT Exam Head: Present: normocephalic, atraumatic Eye: Present: EOMI, PERRL ENT: Present: mucous membranes moist - Routine Neck Exam Present: supple, full ROM, trachea midline - Routine Respiratory Exam Present: decreased breath sounds, rhonchi. Absent: accessory muscle use, patient mechanically ventilated - Routine Cardiovascular Exam Present: RRR, S1, S2, no murmur - Routine Abdominal Exam Present: soft, normoactive bowel sounds - Routine Extremities Exam Present: no edema, non tender, full ROM Comments: weak - Routine Back/Spine/Pelvis Exam Back/Spine: Present: full ROM - Routine Skin Exam Present: intact, dry - Routine Neurological Exam Present: alert, CN II-XII intact - Routine Psychiatric Exam Present: normal affect, cooperative - Urinary Catheter Management Urethral Cath placed during this visit: yes Insertion date: 05/21/17 Results - Laboratory Findings Laboratory: Laboratory Results - last 48 hr 05/24/17 05/27/17 05/27/17 13:58 03:55 12:12 WBC RBC Hgb Hct MCV MCH MCHC RDW Std Deviation Plt Count MPV Immature Gran % (Auto) Neut % (Auto) Lymph % (Auto) [place] % (Auto) Eos % (Auto) Baso % (Auto) Neut # (Auto) Lymph # (Auto) [place] # (Auto) Eos # (Auto) Baso # (Auto) Abs Immat Gran (auto) Neutrophils % (Manual) Band Neutrophils % Lymphocytes % (Manual) Reactive Lymphs % Monocytes % (Manual) Neutrophils # (Manual) Band Neutrophils # Lymphocytes # (Manual) Abs React Lymphs (Man) Monocytes # (Manual) RBC Morph Comment ABG pH ABG pCO2 ABG pO2 ABG HCO3 ABG Total CO2 ABG O2 Saturation ABG Base Excess O2 Delivery Method FiO2 % FiO2 (liters per min) Turbidity Sodium Potassium Chloride Carbon Dioxide Anion Gap BUN Creatinine GFR Calculation BUN/Creatinine Ratio Glucose Glucometer 279 Calculated Osmolality Calcium Total Bilirubin Icterus Index AST ALT Alkaline Phosphatase Troponin I 0.135 H Total Protein Albumin Globulin Albumin/Globulin Ratio Procalcitonin Specimen Hemolysis < 15 Heparin Dep Plt Ab OD 0.198 Hep-Induced Plt Ab Gege Negative 05/27/17 05/27/17 05/27/17 12:50 17:49 23:25 WBC RBC Hgb Hct MCV MCH MCHC RDW Std Deviation Plt Count MPV Immature Gran % (Auto) Neut % (Auto) Lymph % (Auto) [place] % (Auto) Eos % (Auto) Baso % (Auto) Neut # (Auto) Lymph # (Auto) [place] # (Auto) Eos # (Auto) Baso # (Auto) Abs Immat Gran (auto) Neutrophils % (Manual) Band Neutrophils % Lymphocytes % (Manual) Reactive Lymphs % Monocytes % (Manual) Neutrophils # (Manual) Band Neutrophils # Lymphocytes # (Manual) Abs React Lymphs (Man) Monocytes # (Manual) RBC Morph Comment ABG pH 7.450 ABG pCO2 53 H ABG pO2 61 L ABG HCO3 36.8 H ABG Total CO2 38.4 H ABG O2 Saturation 92.0 L ABG Base Excess 11.0 H O2 Delivery Method Vent, adult % FiO2 % 40.0 FiO2 (liters per min) Turbidity Sodium Potassium Chloride Carbon Dioxide Anion Gap BUN Creatinine GFR Calculation BUN/Creatinine Ratio Glucose Glucometer 292 231 Calculated Osmolality Calcium Total Bilirubin Icterus Index AST ALT Alkaline Phosphatase Troponin I Total Protein Albumin Globulin Albumin/Globulin Ratio Procalcitonin Specimen Hemolysis Heparin Dep Plt Ab OD Hep-Induced Plt Ab Gege 05/28/17 05/28/17 05/28/17 04:00 04:00 04:00 WBC 19.3 H D RBC 4.78 Hgb 14.3 D Hct 47.3 D MCV 99.0 MCH 29.9 MCHC 30.2 L RDW Std Deviation 48.4 Plt Count 133 D MPV Not performed Immature Gran % (Auto) Not performed Neut % (Auto) Not performed Lymph % (Auto) Not performed [place] % (Auto) Not performed Eos % (Auto) Not performed Baso % (Auto) Not performed Neut # (Auto) Not performed Lymph # (Auto) Not performed [place] # (Auto) Not performed Eos # (Auto) Not performed Baso # (Auto) Not performed Abs Immat Gran (auto) Not performed Neutrophils % (Manual) 97.0 H Band Neutrophils % Lymphocytes % (Manual) 1.0 L Reactive Lymphs % Monocytes % (Manual) 2.0 Neutrophils # (Manual) 18.7 H Band Neutrophils # Lymphocytes # (Manual) 0.2 L Abs React Lymphs (Man) Monocytes # (Manual) 0.4 RBC Morph Comment Normal ABG pH ABG pCO2 ABG pO2 ABG HCO3 ABG Total CO2 ABG O2 Saturation ABG Base Excess O2 Delivery Method FiO2 % FiO2 (liters per min) Turbidity < 20 Sodium 148 H Potassium 4.6 Chloride 103 Carbon Dioxide 39 H Anion Gap 6 BUN 39.0 H Creatinine 0.6 L GFR Calculation 137 BUN/Creatinine Ratio 65 H Glucose 236 H Glucometer Calculated Osmolality 301 H Calcium 8.0 L Total Bilirubin 0.80 Icterus Index < 2 AST 24 D ALT 125 H Alkaline Phosphatase 78 D Troponin I Total Protein 5.9 L Albumin 3.2 L Globulin 2.7 Albumin/Globulin Ratio 1.2 Procalcitonin < 0.05 Specimen Hemolysis < 15 Heparin Dep Plt Ab OD Hep-Induced Plt Ab Gege 05/28/17 05/28/17 05/28/17 05:44 12:15 16:45 WBC RBC Hgb Hct MCV MCH MCHC RDW Std Deviation Plt Count MPV Immature Gran % (Auto) Neut % (Auto) Lymph % (Auto) [place] % (Auto) Eos % (Auto) Baso % (Auto) Neut # (Auto) Lymph # (Auto) [place] # (Auto) Eos # (Auto) Baso # (Auto) Abs Immat Gran (auto) Neutrophils % (Manual) Band Neutrophils % Lymphocytes % (Manual) Reactive Lymphs % Monocytes % (Manual) Neutrophils # (Manual) Band Neutrophils # Lymphocytes # (Manual) Abs React Lymphs (Man) Monocytes # (Manual) RBC Morph Comment ABG pH 7.477 H ABG pCO2 45 ABG pO2 70 L ABG HCO3 33.0 H ABG Total CO2 35.0 H ABG O2 Saturation 95.0 ABG Base Excess 9.0 H O2 Delivery Method Bipap FiO2 % FiO2 (liters per min) 8 Turbidity Sodium Potassium Chloride Carbon Dioxide Anion Gap BUN Creatinine GFR Calculation BUN/Creatinine Ratio Glucose Glucometer 212 261 Calculated Osmolality Calcium Total Bilirubin Icterus Index AST ALT Alkaline Phosphatase Troponin I Total Protein Albumin Globulin Albumin/Globulin Ratio Procalcitonin Specimen Hemolysis Heparin Dep Plt Ab OD Hep-Induced Plt Ab Gege 05/28/17 05/28/17 05/29/17 17:58 23:28 03:47 WBC 20.4 H RBC 4.66 Hgb 13.9 Hct 45.6 MCV 97.9 MCH 29.8 MCHC 30.5 L RDW Std Deviation 48.2 Plt Count 138 MPV 14.2 H Immature Gran % (Auto) Not performed Neut % (Auto) Not performed Lymph % (Auto) Not performed [place] % (Auto) Not performed Eos % (Auto) Not performed Baso % (Auto) Not performed Neut # (Auto) Not performed Lymph # (Auto) Not performed [place] # (Auto) Not performed Eos # (Auto) Not performed Baso # (Auto) Not performed Abs Immat Gran (auto) Not performed Neutrophils % (Manual) 88.0 H Band Neutrophils % 1.0 Lymphocytes % (Manual) 2.0 L Reactive Lymphs % 2.0 H Monocytes % (Manual) 7.0 Neutrophils # (Manual) 18.0 H Band Neutrophils # 0.2 Lymphocytes # (Manual) 0.4 L Abs React Lymphs (Man) 0.4 H Monocytes # (Manual) 1.4 H RBC Morph Comment Normal ABG pH ABG pCO2 ABG pO2 ABG HCO3 ABG Total CO2 ABG O2 Saturation ABG Base Excess O2 Delivery Method FiO2 % FiO2 (liters per min) Turbidity Sodium Potassium Chloride Carbon Dioxide Anion Gap BUN Creatinine GFR Calculation BUN/Creatinine Ratio Glucose Glucometer 291 255 Calculated Osmolality Calcium Total Bilirubin Icterus Index AST ALT Alkaline Phosphatase Troponin I Total Protein Albumin Globulin Albumin/Globulin Ratio Procalcitonin Specimen Hemolysis Heparin Dep Plt Ab OD Hep-Induced Plt Ab Gege 05/29/17 05/29/17 03:47 05:48 WBC RBC Hgb Hct MCV MCH MCHC RDW Std Deviation Plt Count MPV Immature Gran % (Auto) Neut % (Auto) Lymph % (Auto) [place] % (Auto) Eos % (Auto) Baso % (Auto) Neut # (Auto) Lymph # (Auto) [place] # (Auto) Eos # (Auto) Baso # (Auto) Abs Immat Gran (auto) Neutrophils % (Manual) Band Neutrophils % Lymphocytes % (Manual) Reactive Lymphs % Monocytes % (Manual) Neutrophils # (Manual) Band Neutrophils # Lymphocytes # (Manual) Abs React Lymphs (Man) Monocytes # (Manual) RBC Morph Comment ABG pH ABG pCO2 ABG pO2 ABG HCO3 ABG Total CO2 ABG O2 Saturation ABG Base Excess O2 Delivery Method FiO2 % FiO2 (liters per min) Turbidity < 20 Sodium 147 H Potassium 4.1 Chloride 103 Carbon Dioxide 36 H Anion Gap 8 BUN 44.0 H Creatinine 0.6 L GFR Calculation 137 BUN/Creatinine Ratio 73 H Glucose 308 H Glucometer 289 Calculated Osmolality 305 H Calcium 8.6 Total Bilirubin Icterus Index < 2 AST ALT Alkaline Phosphatase Troponin I Total Protein Albumin Globulin Albumin/Globulin Ratio Procalcitonin Specimen Hemolysis < 15 Heparin Dep Plt Ab OD Hep-Induced Plt Ab Gege - Diagnostic Findings Chest x-ray: image reviewed (no new CXR) Assessment and Plan - Assessment and Plan Acute on Chronic Hypoxic Hypercapnic Respiratory Failure LLL mass 2.2 cm - plan OP biopsy COPD exacerbation Chest Pain/Wide complex tachycardia s/p cardioversion CAD s/p stent ANGELLA/OHS Morbid Obesity Thrombocytopenia - resolved Plan: Pt currently on O2 at 5L per [place] (home O2), bipap q HS and prn f15, 01/12, ABG yesterday 7.4/. Cont on BT's with a/a q4hr, pulmicort BID, solumedrol 80 q12. On cefepime and levaquin for pna, no CXR today. Afebrile, WBC 19.3>20.4 today, follow, 1% bands today. Did undergo stent placement now on brillanta - Time Spent With Patient Total time spent is greater than 50% in coordination of care (as documented) at patient's floor/unit and/or counseling patient: less than 15 minutes <Donny Ashby - Last Filed: 05/30/17 15:28> Exam Vital signs: Temperature 97.9 F 05/29/17 23:12 Pulse Rate 83 05/30/17 12:00 Respiratory Rate 25 H 05/30/17 10:52 Blood Pressure 90/66 05/30/17 08:00 Pulse Oximetry 94 05/30/17 10:52 Inpatient Medications: Generic Name Dose Route Start Last Admin Trade Name Freq PRN Reason Stop Dose Admin Acetaminophen 325 - 650 mg 05/17/17 10:08 05/26/17 20:58 Tylenol PO 650 mg Q5H PRN Administration Discomfort Acetaminophen 650 mg 05/21/17 15:10 Tylenol Supp DC Q5H PRN Pain Acetaminophen 325 - 650 mg 05/28/17 09:24 Tylenol PO Q5H PRN Pain Hydrocodone Bitart/Acetaminophen 1 tab 05/17/17 21:00 05/30/17 08:36 [place] 7.5/325 PO 1 tab BID KSENIA Administration Hydrocodone Bitart/Acetaminophen 1 tab 05/17/17 10:14 [place] 7.5/325 PO Q6H PRN Pain Hydrocodone Bitart/Acetaminophen 1 - 2 tab 05/28/17 09:24 [place] 5/325 PO Q5H PRN Pain Al Hydroxide/Mg Hydroxide 30 ml 05/28/17 09:24 Maalox Plus PO Q3H PRN Indigestion Albuterol/Ipratropium 3 ml 05/17/17 10:11 Duoneb AEROSOL RTQID PRN Albuterol/Ipratropium 3 ml 05/21/17 15:15 05/30/17 10:51 Duoneb AEROSOL 3 ml Q4H KSENIA Administration Amlodipine Besylate 10 mg 05/24/17 13:46 05/30/17 08:38 Norvasc PO 10 mg DAILY [facility] Administration Aspirin 81 mg 05/22/17 16:00 05/30/17 08:36 Asa GT 81 mg DAILY [facility] Administration Aspirin 81 mg 05/28/17 09:24 05/30/17 10:42 Ecotrin PO Not Given DAILY KSENIA Atenolol 25 mg 05/29/17 09:00 05/30/17 08:37 Tenormin PO 25 mg BID KSENIA Administration Atorvastatin Calcium 80 mg 05/28/17 21:00 05/29/17 20:01 Lipitor PO 80 mg HS [facility] Administration Atropine Sulfate 0.5 mg 05/28/17 09:24 Atropine IVP Q5M PRN Bradycardia Benzocaine 1 lozenge 05/20/17 18:54 Cepacol Sore Throat Lozenge MM Q2HR PRN Sore throat Bisacodyl 10 mg 05/27/17 15:11 Dulcolax RECTALLY DAILY PRN Constipation Bisacodyl 5 - 10 mg 05/28/17 09:24 Dulcolax PO DAILY PRN Constipation Bisacodyl 10 mg 05/28/17 09:24 Dulcolax RECTALLY DAILY PRN Constipation Budesonide 0.5 mg 05/17/17 19:00 05/30/17 07:13 Pulmicort Inhalation AEROSOL 0.5 mg RTBID KSENIA Administration Bupropion HCl 150 mg 05/17/17 21:00 05/30/17 08:36 Wellbutrin Sr PO 150 mg BID KSENIA Administration Citalopram Hydrobromide 40 mg 05/18/17 09:00 05/30/17 08:37 Celexa PO 40 mg DAILY KSENIA Administration Clonidine HCl 0.1 mg 05/22/17 09:00 05/29/17 08:01 Catapres-Tts 1 TD 0.1 mg Q7D@0900 KSENIA Administration Clonidine HCl 1 removal 05/29/17 08:59 05/29/17 08:13 Catapres Patch Removal TD 1 removal Q7D KSENIA Administration Furosemide 20 mg 05/29/17 09:00 Lasix IVP DAILY KSENIA Gabapentin 300 mg 05/17/17 15:00 05/30/17 08:36 Neurontin PO 300 mg TID KSENIA Administration Glucose 37.5 gm 05/17/17 10:12 Glutose 15 PO PRN PRN Hypoglycemia Guaifenesin 400 mg 05/29/17 12:00 05/30/17 12:51 Robitussin Liq PO 400 mg Q6H KSENIA Administration Hydralazine HCl 10 mg 05/22/17 15:01 05/28/17 06:06 Apresoline IVP 10 mg Q4H PRN Administration Hypertension Insulin Aspart 2 - 14 unit 05/21/17 11:43 05/30/17 11:36 Novolog SQ 7 unit SS PRN Administration Hyperglycemia Protocol Insulin Aspart 10 unit 05/28/17 18:00 05/30/17 12:51 Novolog SQ 10 unit Q6H KSENIA Administration Insulin Glargine 40 unit 05/23/17 21:00 05/29/17 20:05 Lantus SQ 40 unit HS KSENIA Administration Lisinopril 10 mg 05/24/17 16:15 05/30/17 08:36 Prinivil PO 10 mg DAILY KSENIA Administration Lorazepam 1 mg 05/24/17 19:46 05/26/17 05:02 Ativan Inj IVP 1 mg Q2H PRN Administration Agitation/Air hunger/Pain Lorazepam 0.5 - 1 mg 05/28/17 09:24 Ativan PO Q4H PRN Anxiety Lorazepam 0.5 - 1 mg 05/28/17 09:24 Ativan Inj IVP Q4H PRN Anxiety Magnesium Hydroxide 30 ml 05/28/17 09:24 Mom PO DAILY PRN Constipation Menthol 1 lozenge 05/18/17 08:19 Ricola Sf MM PRN PRN Cough Methylprednisolone Sodium Succinate 60 mg 05/29/17 21:00 05/30/17 08:38 Solu-Medrol IVP 60 mg Q12HR [facility] Administration Metoclopramide HCl 5 - 10 mg 05/28/17 09:24 Reglan IVP Q6H PRN Nausea &/or vomiting Metoclopramide HCl 5 mg 05/30/17 14:00 Reglan GT Q6H KSENIA Morphine Sulfate 2 - 4 mg 05/28/17 09:24 Morphine Sulfate Inj IVP Q5M PRN Angina Nitroglycerin 0.4 mg 05/17/17 10:14 05/21/17 08:35 Nitrostat SL 0.4 mg Q5MIN3 PRN Administration CP Nitroglycerin 0.4 mg 05/28/17 09:24 Nitrostat SL Q5M PRN Angina Omeprazole 40 mg 05/18/17 06:30 05/30/17 05:45 Prilosec PO Not Given ACB [facility] Ondansetron HCl 4 mg 05/28/17 09:24 Zofran IVP Q6H PRN Nausea &/or vomiting Oseltamivir Phosphate 75 mg 05/29/17 21:00 05/30/17 08:42 Tamiflu 06/03/17 09:01 75 mg BID [facility] Administration Pantoprazole Sodium 40 mg 05/22/17 09:00 05/30/17 08:40 Protonix Iv IVP 40 mg DAILY [facility] Administration Promethazine HCl 12.5 - 25 mg 05/28/17 09:24 Phenergan Inj IVP Q6HR PRN Nausea &/or vomiting Sodium Chloride 10 - 80 ml 05/17/17 05:20 05/27/17 01:31 Iv Flush IVF 50 ml PRN PRN Administration Flushing Sodium Chloride 1 spray 05/19/17 11:42 05/19/17 16:37 [place] Nasal Moisturizing [place] EA NOSTRIL 1 spray PRN PRN Administration Congestion Sodium Chloride 500 ml 05/25/17 21:40 05/25/17 21:52 Normal Saline IV 500 ml PRN PRN Administration Ticagrelor 90 mg 05/28/17 21:01 05/30/17 08:36 Brilinta PO 90 mg Q12H KSENIA Administration Discontinued Medications Generic Name Dose Route Start Last Admin Trade Name Freq PRN Reason Stop Dose Admin Acetazolamide 500 mg 05/19/17 10:51 05/19/17 11:25 Diamox PO 05/19/17 10:52 500 mg O ONE Administration Adenosine 12 mg 05/21/17 09:17 05/21/17 08:50 Adenocard IVP 05/21/17 09:18 12 mg O ONE Administration Adenosine 6 mg 05/21/17 09:18 05/21/17 09:23 Adenocard IVP 05/21/17 09:19 6 mg O ONE Administration Albuterol/Ipratropium 6 ml 05/17/17 05:19 05/17/17 05:33 Duoneb AEROSOL 05/17/17 05:20 6 ml O ONE Administration Albuterol/Ipratropium 3 ml 05/17/17 11:00 05/21/17 18:22 Duoneb AEROSOL Not Given RTQID [facility] Aspirin 81 mg 05/18/17 09:00 05/23/17 08:26 Asa PO Not Given DAILY [facility] Atenolol 25 mg 05/18/17 09:00 05/24/17 08:58 Tenormin PO 25 mg DAILY [facility] Administration Atenolol 50 mg 05/25/17 09:00 05/28/17 12:30 Tenormin PO Not Given DAILY [facility] Atenolol 25 mg 05/24/17 09:40 05/24/17 11:09 Tenormin PO 05/24/17 09:41 25 mg O ONE Administration Bivalirudin 250 mg 05/24/17 14:15 Angiomax IV NOW [facility] Enoxaparin Sodium 1 each 05/18/17 10:47 05/18/17 12:54 Pharmacy Consult - Lovenox MC 05/18/17 10:48 1 each O ONE Administration Enoxaparin Sodium 50 mg 05/18/17 11:45 05/20/17 08:37 Lovenox SQ 50 mg DAILY [facility] Administration Enoxaparin Sodium 142 mg 05/27/17 17:00 05/28/17 09:34 Lovenox SQ 142 mg DAILY KSENIA Administration Furosemide 20 mg 05/18/17 09:00 05/20/17 08:37 Lasix PO 20 mg DAILY KSENIA Administration Furosemide 40 mg 05/21/17 09:37 05/21/17 09:45 Lasix IVP 05/21/17 09:38 40 mg ONCE ONE Administration Furosemide 20 mg 05/23/17 21:00 05/24/17 08:59 Lasix IVP 20 mg Q12HR KSENIA Administration Furosemide 20 mg 05/24/17 17:00 05/27/17 09:31 Lasix IVP 20 mg Q8HR KSENIA Administration Furosemide 20 mg 05/27/17 21:00 05/29/17 08:09 Lasix IVP 20 mg Q12H KSENIA Administration Guaifenesin 1,200 mg 05/18/17 09:00 05/29/17 08:14 Mucinex [place] PO Not Given BID KSENIA Heparin Sodium (Beef Lung) 5,000 unit 05/21/17 09:23 05/21/17 10:07 Heparin Bolus IVP 05/21/17 09:24 5,000 unit O ONE Administration Heparin Sodium (Beef Lung) 3,000 unit 05/21/17 17:45 05/21/17 17:53 Heparin Bolus IVP 05/21/17 17:46 3,000 unit O ONE Administration Heparin Sodium (Beef Lung) 3,000 unit 05/22/17 03:37 05/22/17 03:46 Heparin Bolus IVP 05/22/17 03:38 3,000 unit O ONE Administration Heparin Sodium (Porcine) 1 each 05/21/17 09:08 Pharmacy Consult - Heparin MC 05/21/17 09:09 ONE TIME ONE Hydralazine HCl 5 mg 05/22/17 08:47 05/22/17 10:09 Apresoline IVP 5 mg Q6H PRN Administration Hypertension Sodium Chloride 1,000 mls @ 999.9 mls/hr 05/17/17 05:44 05/17/17 11:20 Normal Saline IV 05/17/17 06:43 Infused .Q1H ONE Infusion Sodium Chloride 1,000 mls @ 75 mls/hr 05/17/17 10:08 05/19/17 11:19 Normal Saline IV Infused .[id number] KSENIA Infusion Ceftriaxone Sodium 2 gm/ 100 mls @ 200 mls/hr 05/18/17 01:15 05/18/17 01:50 Sodium Chloride IV Infused Q24H KSENIA Infusion Ceftriaxone Sodium 2 gm/ 50 mls @ 100 mls/hr 05/18/17 21:00 05/20/17 21:55 Sodium Chloride IV Infused Q24H KSENIA Infusion Heparin Sodium (Porcine) 20,000 unit in 500 mls @ 44 mls/hr 05/21/17 09:30 13:17 Heparin Drip IV Infused .[id number] KSENIA Titration Protocol Dexmedetomidine HCl 200 mcg/ 52 mls @ 6.87 mls/hr 05/21/17 09:52 05/21/17 20: 00 Sodium Chloride IV 05/21/17 20:29 0 mcg/kg/hr .Q7H35M PRN 0 mls/hr Protocol Titration 0.2 MCG/KG/HR Propofol 1,000 mg in 100 mls @ 3.969 mls/hr 05/21/17 10:39 05/21/17 14:28 Diprivan IV 0 mcg/kg/min .Q24H PRN 0 mls/hr Protocol Infusion 5 MCG/KG/MIN Fentanyl 1,000 mcg/ Sodium 100 mls @ 0 mls/hr 05/21/17 13:02 05/27/17 14:45 Chloride IV Infused .Q0M PRN Titration Protocol Per Protocol Sodium Chloride 250 mls @ 999.9 mls/hr 05/21/17 13:15 05/21/17 14:28 Normal Saline IV 05/21/17 13:29 Infused .Q15M KSENIA Infusion Cefepime HCl 1 gm/ Sodium 50 mls @ 100 mls/hr 05/21/17 15:30 05/29/17 10:46 Chloride IV Infused Q6H KSENIA Infusion Levofloxacin/Dextrose 750 mg in 150 mls @ 100 mls/hr 05/21/17 16:00 05/28/17 17:15 Levaquin Premix IV Infused Q24H KSENIA Infusion Vancomycin HCl 1,500 mg/ 500 mls @ 250 mls/hr 05/21/17 18:00 05/24/17 12:15 Sodium Chloride IV Infused Q8H KSENIA Infusion Dexmedetomidine HCl 1,000 mcg/ 260 mls @ 6.87 mls/hr 05/21/17 20:30 05/27/17 14:45 Sodium Chloride IV 05/27/17 14:45 Infused .Q24H PRN Titration Protocol 0.2 MCG/KG/HR Potassium Chloride 10 meq in 100 mls @ 100 mls/hr 05/23/17 09:45 05/23/17 17: 34 Potassium Chloride Premix IV 05/23/17 13:44 Infused Q1H KSENIA Infusion Heparin Sodium (Porcine) 20,000 unit in 500 mls @ 45 mls/hr 05/23/17 16:00 06:16 Heparin Drip IV Not Given .Q11H7M KSENIA Protocol Potassium Chloride 10 meq in 100 mls @ 100 mls/hr 05/24/17 09:45 05/24/17 15: 56 Potassium Chloride Premix IV 05/24/17 13:44 Not Given Q1H KSENIA Potassium Chloride 10 meq/ 105 mls @ 105 mls/hr 05/24/17 11:45 05/24/17 17:00 Sodium Chloride IV 05/24/17 15:44 Infused Q1H KSENIA Infusion Bivalirudin 250 mg/ Sodium 500 mls @ 43.2 mls/hr 05/24/17 15:15 05/27/17 17: 34 Chloride IV Not Given .[id number] KSENIA Sodium Chloride 1,000 mls @ 75 mls/hr 05/28/17 07:45 05/28/17 14:00 Normal Saline IV Infused .[id number] KSENIA Infusion Sodium Chloride 1,000 mls @ 500 mls/hr 05/30/17 10:14 05/30/17 10:41 Normal Saline IV 05/30/17 12:13 500 mls/hr .Q2H ONE Administration Insulin Aspart 1 - 5 unit 05/17/17 10:12 05/18/17 06:06 Novolog SQ 2 unit SS PRN Administration Hyperglycemia Protocol Insulin Aspart 2 - 8 unit 05/18/17 08:22 05/21/17 07:30 Novolog SQ 3 unit SS PRN Administration Hyperglycemia Protocol Insulin Aspart 15 unit 05/20/17 10:32 05/20/17 10:36 Novolog SQ 05/20/17 10:33 15 unit ONE TIME ONE Administration Insulin Aspart 10 unit 05/26/17 12:00 05/26/17 13:54 Novolog SQ Not Given Q6H [facility] Insulin Aspart 10 unit 05/26/17 15:00 05/27/17 21:06 Novolog SQ Not Given 0300,0900,1500,2100 KSENIA Insulin Aspart 10 unit 05/28/17 15:00 Novolog SQ Q6HR KSENIA Insulin Glargine 10 unit 05/21/17 21:00 05/21/17 20:14 Lantus SQ 10 unit HS KSENIA Administration Insulin Glargine 20 unit 05/22/17 21:00 05/22/17 20:14 Lantus SQ 20 unit HS KSENAI Administration Labetalol HCl 10 mg 05/21/17 20:40 05/22/17 06:05 Trandate IVP 10 mg Q4H PRN Administration INCREASED blood pressure Lorazepam 1 mg 05/17/17 06:16 05/17/17 06:56 Ativan PO 05/17/17 06:17 1 mg O ONE Administration Lorazepam 0.5 mg 05/17/17 10:13 05/24/17 15:55 Ativan Inj IVP 0.5 mg Q6H PRN Administration Magnesium Hydroxide 30 ml 05/26/17 12:41 05/26/17 13:53 Mom GT 05/26/17 12:42 30 ml O ONE Administration Metformin HCl 500 mg 05/17/17 17:30 05/18/17 10:00 Glucophage PO Not Given BIDWM KSENIA Metformin HCl 500 mg 05/19/17 09:00 05/21/17 10:52 Glucophage PO Not Given BIDWM KSENIA Methylprednisolone Sodium Succinate 125 mg 05/17/17 06:26 05/17/17 06:53 Solu-Medrol IM 05/17/17 06:27 125 mg O ONE Administration Methylprednisolone Sodium Succinate 125 mg 05/17/17 15:00 05/20/17 08:37 Solu-Medrol IVP 125 mg Q6HR KSENIA Administration Methylprednisolone Sodium Succinate 80 mg 05/20/17 15:00 05/24/17 08:57 Solu-Medrol IVP 80 mg Q6HR KSENIA Administration Methylprednisolone Sodium Succinate 80 mg 05/24/17 17:00 05/26/17 08:23 Solu-Medrol IVP 80 mg Q8HR KSENIA Administration Methylprednisolone Sodium Succinate 80 mg 05/26/17 21:00 05/29/17 08:15 Solu-Medrol IVP 80 mg Q12HR KSENIA Administration Metoclopramide HCl 5 mg 05/23/17 17:30 05/30/17 10:42 Reglan GT 5 mg Q6H KSENIA Administration Metoprolol Tartrate 15 mg 05/21/17 09:18 05/21/17 09:05 Lopressor IVP 05/21/17 09:19 15 mg ONCE ONE Administration Metoprolol Tartrate 5 mg 05/28/17 10:01 05/28/17 10:00 Lopressor IVP 05/28/17 10:02 5 mg ONCE ONE Administration Morphine Sulfate 1 - 2 mg 05/17/17 10:08 05/24/17 17:56 Morphine Sulfate Inj IVP 2 mg Q2H PRN Administration Pain Morphine Sulfate 2 - 4 mg 05/28/17 09:24 05/28/17 10:17 Morphine Sulfate Inj IVP 05/29/17 09:23 4 mg Q2H PRN Administration Pain --Pom--(Itraconazole 200 mg 05/17/17 21:00 05/29/17 09:39 [Itraconazole] 200 PO Not Given Mg) BID KSENIA Ondansetron HCl 4 mg 05/17/17 10:08 05/19/17 02:45 Zofran IVP 4 mg Q6H PRN Administration Nausea &/or vomiting Pharmacy Consult 1 each 05/17/17 10:32 Pharmacy Consult - Fall Risk XX 05/17/17 10:33 ONE TIME ONE Pharmacy Consult 1 each 05/27/17 10:17 Pharmacy Consult - Fall Risk XX 05/27/17 10:18 ONE TIME ONE Potassium Chloride 40 meq 05/24/17 18:10 05/26/17 06:13 Kcl Oral Liq 20 Meq/15 Ml PO Not Given BIDWM [facility] Potassium Chloride 40 meq 05/25/17 13:00 05/26/17 08:22 Kcl Oral Liq 20 Meq/15 Ml PO 40 meq QID KSENIA Administration Potassium Chloride 40 meq 05/26/17 12:00 05/27/17 12:04 Kcl Oral Liq 20 Meq/15 Ml PO 40 meq TIDWM KSENIA Administration Potassium Chloride 40 meq 05/27/17 17:30 05/29/17 07:59 Kcl Oral Liq 20 Meq/15 Ml PO 40 meq BIDWM KSENIA Administration Potassium Chloride 40 meq 05/29/17 09:00 05/30/17 08:42 Kcl Oral Liq 20 Meq/15 Ml PO 40 meq DAILY KSENIA Administration Simvastatin 20 mg 05/17/17 21:00 05/27/17 20:36 Zocor PO Not Given HS KSENIA Vancomycin HCl 1 each 05/21/17 15:19 05/21/17 15:53 Pharmacy Consult - Vancomycin 05/21/17 15:20 1 each O ONE Administration - Urinary Catheter Management Urethral Cath placed during this visit: no Results - Laboratory Findings Laboratory: Laboratory Results - last 48 hr 05/28/17 05/28/17 05/28/17 16:45 17:58 23:28 WBC RBC Hgb Hct MCV MCH MCHC RDW Std Deviation Plt Count MPV Immature Gran % (Auto) Neut % (Auto) Lymph % (Auto) [place] % (Auto) Eos % (Auto) Baso % (Auto) Neut # (Auto) Lymph # (Auto) [place] # (Auto) Eos # (Auto) Baso # (Auto) Abs Immat Gran (auto) Neutrophils % (Manual) Band Neutrophils % Lymphocytes % (Manual) Reactive Lymphs % Monocytes % (Manual) Neutrophils # (Manual) Band Neutrophils # Lymphocytes # (Manual) Abs React Lymphs (Man) Monocytes # (Manual) RBC Morph Comment ABG pH 7.477 H ABG pCO2 45 ABG pO2 70 L ABG HCO3 33.0 H ABG Total CO2 35.0 H ABG O2 Saturation 95.0 ABG Base Excess 9.0 H O2 Delivery Method Bipap FiO2 (liters per min) 8 Turbidity Sodium Potassium Chloride Carbon Dioxide Anion Gap BUN Creatinine GFR Calculation BUN/Creatinine Ratio Glucose Glucometer 291 255 Calculated Osmolality Calcium Total Bilirubin Icterus Index AST ALT Alkaline Phosphatase Total Protein Albumin Globulin Albumin/Globulin Ratio Specimen Hemolysis Adenovirus (PCR) B.parapertussis DNA PCR C. pneumoniae DNA (PCR) Coronavirus OC43 (PCR) Coronavirus HKU1 (PCR) Coronavirus 229E (PCR) Coronavirus NL63 (PCR) Human Metapneumovir PCR Influenza A (H3) PCR Influenza Type B (PCR) M. pneumoniae (PCR) Parainfluenza 1 (PCR) Parainfluenza 2 (PCR) Parainfluenza 3 (PCR) Parainfluenza 4 (PCR) RSV (PCR) Entero/Rhino (PCR) 05/29/17 05/29/17 05/29/17 03:47 03:47 05:48 WBC 20.4 H RBC 4.66 Hgb 13.9 Hct 45.6 MCV 97.9 MCH 29.8 MCHC 30.5 L RDW Std Deviation 48.2 Plt Count 138 MPV 14.2 H Immature Gran % (Auto) Not performed Neut % (Auto) Not performed Lymph % (Auto) Not performed [place] % (Auto) Not performed Eos % (Auto) Not performed Baso % (Auto) Not performed Neut # (Auto) Not performed Lymph # (Auto) Not performed [place] # (Auto) Not performed Eos # (Auto) Not performed Baso # (Auto) Not performed Abs Immat Gran (auto) Not performed Neutrophils % (Manual) 88.0 H Band Neutrophils % 1.0 Lymphocytes % (Manual) 2.0 L Reactive Lymphs % 2.0 H Monocytes % (Manual) 7.0 Neutrophils # (Manual) 18.0 H Band Neutrophils # 0.2 Lymphocytes # (Manual) 0.4 L Abs React Lymphs (Man) 0.4 H Monocytes # (Manual) 1.4 H RBC Morph Comment Normal ABG pH ABG pCO2 ABG pO2 ABG HCO3 ABG Total CO2 ABG O2 Saturation ABG Base Excess O2 Delivery Method FiO2 (liters per min) Turbidity < 20 Sodium 147 H Potassium 4.1 Chloride 103 Carbon Dioxide 36 H Anion Gap 8 BUN 44.0 H Creatinine 0.6 L GFR Calculation 137 BUN/Creatinine Ratio 73 H Glucose 308 H Glucometer 289 Calculated Osmolality 305 H Calcium 8.6 Total Bilirubin Icterus Index < 2 AST ALT Alkaline Phosphatase Total Protein Albumin Globulin Albumin/Globulin Ratio Specimen Hemolysis < 15 Adenovirus (PCR) B.parapertussis DNA PCR C. pneumoniae DNA (PCR) Coronavirus OC43 (PCR) Coronavirus HKU1 (PCR) Coronavirus 229E (PCR) Coronavirus NL63 (PCR) Human Metapneumovir PCR Influenza A (H3) PCR Influenza Type B (PCR) M. pneumoniae (PCR) Parainfluenza 1 (PCR) Parainfluenza 2 (PCR) Parainfluenza 3 (PCR) Parainfluenza 4 (PCR) RSV (PCR) Entero/Rhino (PCR) 05/29/17 05/29/17 05/29/17 11:44 13:13 17:47 WBC RBC Hgb Hct MCV MCH MCHC RDW Std Deviation Plt Count MPV Immature Gran % (Auto) Neut % (Auto) Lymph % (Auto) [place] % (Auto) Eos % (Auto) Baso % (Auto) Neut # (Auto) Lymph # (Auto) [place] # (Auto) Eos # (Auto) Baso # (Auto) Abs Immat Gran (auto) Neutrophils % (Manual) Band Neutrophils % Lymphocytes % (Manual) Reactive Lymphs % Monocytes % (Manual) Neutrophils # (Manual) Band Neutrophils # Lymphocytes # (Manual) Abs React Lymphs (Man) Monocytes # (Manual) RBC Morph Comment ABG pH ABG pCO2 ABG pO2 ABG HCO3 ABG Total CO2 ABG O2 Saturation ABG Base Excess O2 Delivery Method FiO2 (liters per min) Turbidity Sodium Potassium Chloride Carbon Dioxide Anion Gap BUN Creatinine GFR Calculation BUN/Creatinine Ratio Glucose Glucometer 258 239 Calculated Osmolality Calcium Total Bilirubin Icterus Index AST ALT Alkaline Phosphatase Total Protein Albumin Globulin Albumin/Globulin Ratio Specimen Hemolysis Adenovirus (PCR) Negative B.parapertussis DNA PCR Negative C. pneumoniae DNA (PCR) Negative Coronavirus OC43 (PCR) Negative Coronavirus HKU1 (PCR) Negative Coronavirus 229E (PCR) Negative Coronavirus NL63 (PCR) Negative Human Metapneumovir PCR Negative Influenza A (H3) PCR Detected A* Influenza Type B (PCR) Negative M. pneumoniae (PCR) Negative Parainfluenza 1 (PCR) Negative Parainfluenza 2 (PCR) Negative Parainfluenza 3 (PCR) Negative Parainfluenza 4 (PCR) Negative RSV (PCR) Negative Entero/Rhino (PCR) Negative 05/29/17 05/30/17 05/30/17 23:43 04:54 04:54 WBC 16.7 H RBC 4.29 L Hgb 12.9 L Hct 42.0 MCV 97.9 MCH 30.1 MCHC 30.7 L RDW Std Deviation 47.6 Plt Count 110 L MPV TNP Immature Gran % (Auto) Not performed Neut % (Auto) Not performed Lymph % (Auto) Not performed [place] % (Auto) Not performed Eos % (Auto) Not performed Baso % (Auto) Not performed Neut # (Auto) Not performed Lymph # (Auto) Not performed [place] # (Auto) Not performed Eos # (Auto) Not performed Baso # (Auto) Not performed Abs Immat Gran (auto) Not performed Neutrophils % (Manual) 96.0 H Band Neutrophils % Lymphocytes % (Manual) 3.0 L Reactive Lymphs % Monocytes % (Manual) 1.0 Neutrophils # (Manual) 16.0 H Band Neutrophils # Lymphocytes # (Manual) 0.5 L Abs React Lymphs (Man) Monocytes # (Manual) 0.2 RBC Morph Comment Normal ABG pH ABG pCO2 ABG pO2 ABG HCO3 ABG Total CO2 ABG O2 Saturation ABG Base Excess O2 Delivery Method FiO2 (liters per min) Turbidity < 20 Sodium 146 H Potassium 4.3 Chloride 106 Carbon Dioxide 34 H Anion Gap 6 BUN 52.0 H* Creatinine 0.6 L GFR Calculation 137 BUN/Creatinine Ratio 87 H Glucose 308 H Glucometer 260 Calculated Osmolality 307 H Calcium 8.5 Total Bilirubin 0.80 Icterus Index < 2 AST 30 ALT 75 H Alkaline Phosphatase 79 Total Protein 5.2 L Albumin 2.8 L Globulin 2.4 Albumin/Globulin Ratio 1.2 Specimen Hemolysis < 15 Adenovirus (PCR) B.parapertussis DNA PCR C. pneumoniae DNA (PCR) Coronavirus OC43 (PCR) Coronavirus HKU1 (PCR) Coronavirus 229E (PCR) Coronavirus NL63 (PCR) Human Metapneumovir PCR Influenza A (H3) PCR Influenza Type B (PCR) M. pneumoniae (PCR) Parainfluenza 1 (PCR) Parainfluenza 2 (PCR) Parainfluenza 3 (PCR) Parainfluenza 4 (PCR) RSV (PCR) Entero/Rhino (PCR) 05/30/17 05/30/17 04:57 11:16 WBC RBC Hgb Hct MCV MCH MCHC RDW Std Deviation Plt Count MPV Immature Gran % (Auto) Neut % (Auto) Lymph % (Auto) [place] % (Auto) Eos % (Auto) Baso % (Auto) Neut # (Auto) Lymph # (Auto) [place] # (Auto) Eos # (Auto) Baso # (Auto) Abs Immat Gran (auto) Neutrophils % (Manual) Band Neutrophils % Lymphocytes % (Manual) Reactive Lymphs % Monocytes % (Manual) Neutrophils # (Manual) Band Neutrophils # Lymphocytes # (Manual) Abs React Lymphs (Man) Monocytes # (Manual) RBC Morph Comment ABG pH ABG pCO2 ABG pO2 ABG HCO3 ABG Total CO2 ABG O2 Saturation ABG Base Excess O2 Delivery Method FiO2 (liters per min) Turbidity Sodium Potassium Chloride Carbon Dioxide Anion Gap BUN Creatinine GFR Calculation BUN/Creatinine Ratio Glucose Glucometer 270 275 Calculated Osmolality Calcium Total Bilirubin Icterus Index AST ALT Alkaline Phosphatase Total Protein Albumin Globulin Albumin/Globulin Ratio Specimen Hemolysis Adenovirus (PCR) B.parapertussis DNA PCR C. pneumoniae DNA (PCR) Coronavirus OC43 (PCR) Coronavirus HKU1 (PCR) Coronavirus 229E (PCR) Coronavirus NL63 (PCR) Human Metapneumovir PCR Influenza A (H3) PCR Influenza Type B (PCR) M. pneumoniae (PCR) Parainfluenza 1 (PCR) Parainfluenza 2 (PCR) Parainfluenza 3 (PCR) Parainfluenza 4 (PCR) RSV (PCR) Entero/Rhino (PCR) Assessment and Plan (1) Acute exacerbation of chronic obstructive airways disease Status: Acute Current Visit: Yes (2) Acute and chronic respiratory failure with hypercapnia Status: Acute Current Visit: Yes (3) Pneumonia Status: Acute Current Visit: Yes - Time Spent With Patient Total time spent is greater than 50% in coordination of care (as documented) at patient's floor/unit and/or counseling patient:
[2017-05-29] MEDS: GUAIFENESIN 200mg/10ml ORAL LIQUID PO SCH ×3 (12:20→23:48)
--- NOTE | 2017-05-29 13:39 | Infectious Disease Consult ---
Infectious Disease Consult Date of Consultation: 05/29/17 Requesting Physician: Amber Benitez Reason for Consultation: antibiotic recs History of Present Illness: Mr. Moreno is a 61-year-old smoker who was recently hospitalized on April 17 for about 5 days for pneumonia. He is chronically on 5 L of oxygen at home. Blood cultures from admission were negative. He had been doing well at home until May 16, when he started to complain of not feeling well. His home health nurse took his vitals which were reportedly "jenniffer high" per his and he was noted to be febrile at that time with a temperature of 103 with a heart rate between 140-150. He also complained of increased dyspnea requiring him to sit in his scooter all night. His home health nurse has recommended and encouraged that he come to the ED yesterday but he refused. Throughout the night he became increasingly more short of breath and finally consented to being evaluated in the ED the next morning (May.17). Upon arrival to the ED, his temperature was elevated at 99.7, heart rate 130, respiratory rate 28, blood pressure 160/72 and pulse ox 92% on 5L NC. Labs were obtained and revealed WBC 5.0 with 71% neutrophils and 3% bands. Mild anemia noted with hemoglobin at 12.3. CMP was stable and troponin was 0.015. BNP was slightly elevated at 633. Initial lactate was 1.3 and decreased to 0.9 prior to admission. Respiratory panel was negative. CXR revealed a stable chest with left basilar scarring but no focal pneumonia. Due to his respiratory distress, he was given DuoNeb treatments, Solu-Medrol 125mg IV and ativan and placed on BiPAP with some improvement. One of 2 blood cultures drawn on admission was positive for strep viridans. He received some Rocephin. CTA on admission was negative for pulmonary embolus but did show a spiculated 2.2 cm nodule in the left lower lobe. It also showed bibasilar atelectasis. Respiratory viral panel on May 17 was negative. On May 21 he had an episode of chest pain. He also had atrial flutter. Cardiology was consulted and he was started on heparin drip. He was started on cefepime and Levaquin and vancomycin on May 21. Sputum culture from May 21 had a somewhat polymicrobial Gram stain however the culture grew normal charly and light growth of Kate albicans. He was requiring BiPAP however on May 21 he was intubated for respiratory failure. Vancomycin was discontinued on the . He has remained on IV Solu- Medrol although I believe the dose has been decreased slightly however he has been on that since admission. White blood cell count on admission was normal but it has been increasing over the past few days and is now up to 20,000. He did have fever May 24 through the . He underwent cardiac catheterization yesterday with 2 stents placed. He was extubated yesterday. Today his oxygen has been weaned down to 5 L which is his baseline. He remains on cefepime and Levaquin. A pro calcitonin obtained yesterday was completely negative. Chest x-rays have documented improvement in aeration of his lungs. He does have a Dobbhoff in and failed his swallow eval today Medications Home Medications Medication Instructions Recorded Confirmed Type Gabapentin 300 mg PO TID #0 cap 06/19/15 05/17/17 History Omeprazole 40 mg PO DAILY #0 cap 06/19/15 05/17/17 History Albuterol/Ipratropium [Duoneb] 1 unit AEROSOL QID 04/17/17 05/17/17 History Aspirin 81 mg PO DAILY 04/17/17 05/17/17 History Atenolol [Tenormin] 25 mg PO DAILY 04/17/17 05/17/17 History Citalopram [Celexa] 40 mg PO DAILY 04/17/17 05/17/17 History Furosemide [Lasix] 20 mg PO DAILY 04/17/17 05/17/17 History Hydrocodone/APAP 7.5/325 [[place] 1 tab PO BID 04/17/17 05/17/17 History 7.5/325] Itraconazole 200 mg PO BID 04/17/17 05/17/17 History Metformin [Glucophage] 500 mg PO BIDWM 04/17/17 05/17/17 History Nitroglycerin [Nitrostat] 0.4 mg SL Q5MIN3 PRN 04/17/17 05/17/17 History Simvastatin 20 mg PO HS 04/17/17 05/17/17 History buPROPion HCl [Bupropion HCl Sr] 150 mg PO BID 04/17/17 05/17/17 History Allergies Allergy/AdvReac Type Severity Reaction Status Date / Time No Known Allergies Allergy Verified 04/17/17 10:12 [facility] Patient Stated Medical History Sleep Apnea Yes Hx Renal Disease No Alzheimer's Disease Angina Coronary Artery Disease Hypertension Myocardial Infarction COPD Sleep Apnea Diabetes Mellitus Type 2 GERD Osteoarthritis Peripheral neuropathy. Fibromyalgia Depression Chronic hypoxia with home oxygen dependence at 5L. Tobacco dependency. Peripheral vascular disease. Morbid obesity - BMI >40. Surgical History: pilonidal cyst. Family History: Reviewed and noncontributory - Social History Smoking status: Current every day smoker Alcohol intake frequency: does not drink Household members: spouse Current residence: Apartment/Private Home Review of Systems ROS unobtainable: due to mental status (patient is sleepy, he denies pain) - Respiratory Respiratory: Present: cough. Absent: dyspnea Exam Vital Signs: Temperature 97.1 F 05/29/17 12:00 Pulse Rate 80 05/29/17 12:30 Respiratory Rate 31 H 05/29/17 12:30 Blood Pressure 93/49 05/29/17 12:01 Pulse Oximetry 96 05/29/17 12:30 Height/Weight/BMI: Height 1.85 m Weight 143.1 kg Body Mass Index 41.5 - Constitutional Present: no acute distress, well nourished, well developed, obese - Routine HEENT Exam Head: Present: normocephalic, atraumatic Eye: Present: EOMI ENT: Present: mucous membranes dry Comments: Dobhoff in place - Routine Neck Exam Present: supple - Routine Respiratory Exam Present: CTA bilaterally (with few slight wheezes), diminished air movement Comments: On O2 by NC - Routine Cardiovascular Exam Present: RRR - Routine Abdominal Exam Present: soft, normoactive bowel sounds, non distended, non tender - Routine Extremities Exam Absent: cyanosis, clubbing, edema - Routine Skin Exam Present: intact. Absent: rash Comments: LUE PICC, RUE midline - Routine Neurological Exam Present: alert (but sleepy), CN II-XII intact. Absent: motor deficit - Routine Psychiatric Exam Present: unable to assess Results - Labs CBC & Chem 7: 05/29/17 03:47 05/29/17 03:47 Microbiology Results: Microbiology 05/25/17 15:49 Midline Blood Culture - Preliminary No Growth After 3 Days 05/25/17 15:43 Port/Picc Blood Culture - Preliminary No Growth After 3 Days 05/20/17 04:36 Midline Blood Culture - Final No Growth After 5 Days 05/20/17 04:36 Midline Blood Culture - Final No Growth After 5 Days 05/21/17 13:45 Sputum, Expectorated Gram Stain - Final 05/21/17 13:45 Sputum, Expectorated Sputum Culture - Final Yeast, not C. albicans Normal Respiratory Charly - ABG Interpretation ABG results: 05/28/17 16:45 ABG pH 7.477 H ABG pCO2 45 ABG pO2 70 L ABG HCO3 33.0 H ABG Total CO2 35.0 H ABG O2 Saturation 95.0 ABG Base Excess 9.0 H Impression: Leukocytosis, suspect secondary to steroids Acute hypoxic and hypercapnic respiratory failure, s/p MV Chest pain/NSTEMI, s/p cath with stenting x 2 on 05/28/17 COPD on chronic home O2 at 5L One of two blood cultures with S. viridans, likely contaminant Wide complex tachycardia; s/p cardioversion with return to sinus tach Cardiomyopathy-EF 30% by echo 05/21/17 Pulmonary nodule - Irregular 2.2cm left lower lobe pulmonary nodule Hypertension Sleep Apnea Diabetes Mellitus Type 2 - A1c on 04/17/17 was 6.4%, with peripheral neuropathy GERD Osteoarthritis Fibromyalgia Depression Tobacco dependency Peripheral vascular disease Morbid obesity - BMI >40 Recommendation: He has had about 9 days of broad-spectrum antibiotics. His respiratory status and his chest x-ray have improved. Pro-calcitonin is completely negative. I recommend stopping his antibiotics and observing. I think that the leukocytosis is secondary to the steroids. I would recommend tapering the steroids as soon as it is feasible. I would recommend immunizing him against influenza and giving him the Pneumovax if he is agreeable. Thanks.
[2017-05-29] MEDS: OSELTAMIVIR 30mg/5ml ORAL LIQUID DOB SCH (20:01)
[2017-05-29] MEDS: ATORVASTATIN 40 MG TABLET PO SCH (20:01)
[2017-05-29] MEDS: INSULIN GLARGINE 100unit/ml INJECTION SQ SCH (20:05)
[2017-05-30] MEDS: METOCLOPRAMIDE 10mg/10ml ORAL LIQUID GT SCH ×5 (02:14→21:21)
[2017-05-30] MEDS: ALBUTEROL/IPRATROPIUM 2.5mg-0.5mg/3ml NEB AEROSOL SCH ×5 (03:10→20:52)
[2017-05-30] MEDS: OMEPRAZOLE 20 MG CAPSULE PO SCH (05:45)
[2017-05-30] MEDS: GUAIFENESIN 200mg/10ml ORAL LIQUID PO SCH ×3 (05:50→18:09)
[2017-05-30] MEDS: INSULIN ASPART 100unit/ml INJECTION SQ SCH ×3 (05:50→18:09)
[2017-05-30] MEDS: INSULIN ASPART 100unit/ml INJECTION SQ PRN ×3 (05:51→19:22)
[2017-05-30] MEDS: BUDESONIDE INH.SOLN 0.5mg/2ml NEB AEROSOL SCH ×2 (07:13→20:52)
--- NOTE | 2017-05-30 08:33 | XRay Report ---
Indication: f/u pna PROCEDURE: XR chest 1V: Encounter: Initial Comparison: May 28, 2017 Findings: Enteric tube and left PICC line remain in place. Improving aeration of the right lower lobe. Residual linear atelectasis in the left lower lobe. Small right effusion. No pneumothorax. Heart size and mediastinal contours are stable. Pulmonary vascularity is grossly normal. Impression: Improving aeration of the right base. .
[2017-05-30] MEDS: ASPIRIN 81 MG CHEWABLE TABLET GT SCH (08:36)
[2017-05-30] MEDS: HYDROCODONE/APAP 7.5 MG/325 MG TABLET PO SCH ×2 (08:36→21:21)
[2017-05-30] MEDS: BuPROPion SR 150mg (12HR) TABLET PO SCH ×2 (08:36→21:21)
[2017-05-30] MEDS: TICAGRELOR 90 MG TABLET PO SCH ×2 (08:36→21:21)
[2017-05-30] MEDS: GABAPENTIN 300 MG CAPSULE PO SCH ×3 (08:36→21:20)
[2017-05-30] MEDS: LISINOPRIL 10 MG TABLET PO SCH (08:36)
[2017-05-30] MEDS: ATENOLOL 25 MG TABLET PO SCH ×2 (08:37→21:20)
[2017-05-30] MEDS: CITALOPRAM 40 MG TABLET PO SCH (08:37)
[2017-05-30] MEDS: METHYLPREDNISOLONE SOD SUCC 125mg/2ml INJECTION IVP SCH ×2 (08:38→21:34)
[2017-05-30] MEDS: AMLODIPINE 10 MG TABLET PO SCH (08:38)
[2017-05-30] MEDS: PANTOPRAZOLE 40 MG INJECTION IVP SCH (08:40)
[2017-05-30] MEDS: POTASSIUM CHLORIDE 20 MEQ/15 ML ORAL LIQUID PO SCH (08:42)
[2017-05-30] MEDS: OSELTAMIVIR 30mg/5ml ORAL LIQUID DOB SCH ×2 (08:42→21:22)
[2017-05-30] MEDS ORDERED: NS 1,000 ML IV ONE (10:14)
--- NOTE | 2017-05-30 10:18 | Progress Note ---
- Date 05/30/17 Subjective: Patient with no significant changes overnight. Is on Bipap alternating with NC as tolerated. Working with PT/OT but not participating much at this point-did get to the edge of the bed today with assistance. Patient started on Tamiflu yesterday due to Influenza A +. Objective Vital signs: Temperature 97.9 F 05/29/17 23:12 Pulse Rate 81 05/30/17 09:45 Respiratory Rate 33 H 05/30/17 09:45 Blood Pressure 90/66 05/30/17 08:00 Pulse Oximetry 95 05/30/17 09:45 Rhythm: Normal Sinus Rhythm Height/Weight/BMI: Height 6 ft 0.83 in Weight 143.1 kg Body Mass Index 41.5 - Constitutional Present: no acute distress, morbidly obese - Routine HEENT Exam Head: Present: normocephalic, atraumatic Eye: Present: EOMI, conjunctivae pink - Routine Respiratory Exam Present: decreased breath sounds, distant breath sounds, diminished air movement - Routine Cardiovascular Exam Present: tachycardia - Routine Abdominal Exam Present: soft, non distended, non tender. Absent: tenderness - Routine Exam Penile: Absent: swelling, erythema Scrotal: Absent: swelling, erythema - Routine Extremities Exam Present: no edema. Absent: cyanosis, clubbing - Routine Musculoskeletal Exam Musculoskeletal: Present: no tenderness, no erythema. Absent: normal strength - Routine Skin Exam Present: intact, warm Comments: chronic venous stasis changes of lower ext - Routine Neurological Exam Present: altered mental status - Routine Psychiatric Exam Present: unable to assess Results - Labs CBC & Chem 7: 05/30/17 04:54 05/30/17 04:54 Microbiology Results: Microbiology 05/25/17 15:49 Midline Blood Culture - Preliminary No Growth After 4 Days 05/25/17 15:43 Port/Picc Blood Culture - Preliminary No Growth After 4 Days 05/20/17 04:36 Midline Blood Culture - Final No Growth After 5 Days 05/20/17 04:36 Midline Blood Culture - Final No Growth After 5 Days 05/21/17 13:45 Sputum, Expectorated Gram Stain - Final 05/21/17 13:45 Sputum, Expectorated Sputum Culture - Final Yeast, not C. albicans Normal Respiratory Charly - ABG Interpretation ABG results: 05/28/17 16:45 ABG pH 7.477 H ABG pCO2 45 ABG pO2 70 L ABG HCO3 33.0 H ABG Total CO2 35.0 H ABG O2 Saturation 95.0 ABG Base Excess 9.0 H Assessment and Plan (1) Acute exacerbation of chronic obstructive airways disease Current visit: Yes Status: Acute (2) Acute and chronic respiratory failure with hypercapnia Current visit: Yes Status: Acute (3) NSTEMI (non-ST elevated myocardial infarction) Current visit: Yes Status: Acute Assessment and Plan: Assessment Acute on chronic respiratory failure with hypercapnia and hypoxia - baseline home oxygen at 5L; intubated 05/21-extubated on 05/27, now on Bipap/NC Leukocytosis-trending down Dehydration NSTEMI-peak troponin 3.09, diffuse T changes, s/p heart cath with 2 stents 05/28 COPD exacerbation Transaminitis Resolved Thrombocytopenia Bilateral lower lobe pneumonia Bacteremia Fever Hypokalemia Wide complex tachycardia s/p cardioversion Chronic Medical: Cardiomyopathy-EF 30% by echo 05/21/17 Pulmonary nodule - Irregular 2.2cm left lower lobe pulmonary nodule Anemia, unspecified, stable Coronary Artery Disease Hypertension Sleep Apnea Diabetes Mellitus Type 2 - A1c on 04/17/17 was 6.4% GERD Osteoarthritis Peripheral neuropathy Fibromyalgia Depression Tobacco dependency Peripheral vascular disease Morbid obesity - BMI >40 Plan Extubated 05/27, continue Bipap/NC as per pulm Weaning steroids CXR-improving Leukocytosis Cefepime, Levaquin, Vanc discontinued Continue Tamiflu Failed speech therapy, continue to re-eval Continue tube feeds and meds via Dobhoff, feeds at 40ml/hr, goal of 80ml/hr Discontinue lasix, give 1L NS and re-eval fluid status Continue ASA and Bivalirudin per cardiology Trend labs - Physician Narrative Narrative: Date: 05/30/17 Time: 1015 Hospital Course Summary Disclaimer: The visit summary below is not to be considered part of the above Progress Note. Hospital Course: 05/17/17 Admission Admit to observation status under the care of Dr. Lopez. Sepsis work up initiated in ED. Patient meeting SIRS criteria based on tachycardia, tachypnea and reported fevers at home without obvious source. Initial lactate was 1.4 with repeat lactate decreased to 0.9. Blood cultures pending. WBC stable at 5.0. CXR revealed left basilar scarring without focal pneumonia. Respiratory panel was negative. Patient was given DuoNeb treatments and Solu-Medrol 125mg IV in ED. Will continue respiratory care with DuoNeb treatments QID and Q6H PRN as well as Solu -Medrol 125mg IV Q6H. History of diabetes with A1c on 04/17/17 at 6.4%. Continue home medications and monitor blood sugars closely given treatment with steroids. Sliding scale insulin as indicated for hyperglycemia. Patient was placed on BiPAP in ED with improvement. Continue BiPAP as indicated. Ativan as needed for anxiety and agitation while on BiPAP. Will monitor closely on telemetry with continuous pulse oximetry. Oxygen as needed to maintain SAO2 between 90-95%, weaning as able to baseline of 5L. SCDs for DVT prophylaxis. Given sudden onset of dyspnea, will obtain CT angio chest for further evaluation of PE - results pending. NS at 100cc/hr for hydration given decreased oral intake as on BiPAP. Monitor daily weight closely for signs of fluid overload. Recheck labs in AM to monitor blood counts, electrolytes and renal function. Patient wishes to maintain FULL CODE status. Upon discharge, patient's care will be returned to his PCP, Dr. Odom. 05/18/17 Don reports that his breathing is a little better today and is he is more alert. New cough with sputum production. 1 of the 2 blood cultures obtained on admission is POSITIVE for Streptococcus. Night telehospitalist was notified and Rocephin 2g IV Q24 hours was initiated for antimicrobial coverage. Given new cough, will try and obtain a sputum culture. Mucinex for mucolytic effect. Ricola for cough. Continue respiratory care including nebulized treatments. Continue to encourage BiPAP as indicated and supplemental oxygen to maintain SAO2 between 90 -95%. Wean oxygen to baseline of 5L as able. Given sudden onset of dyspnea, CT angio chest was obtained and revealed no PE but did note 2.2cm left lower lobe pulmonary nodule raising concern for primary lung malignancy and recommended further evaluation. Will discuss consideration of pulmonary consult for further evaluation. Continue Solu-Medrol 125mg IV Q6 hours. Anticipate initiation of tapering in near future. Blood sugars remain elevated, most likely steroid effect, ranging from 160's-> 200. Continue sliding scale insulin. Given recent CT with contrast, will hold metformin and restart 05/19/17. Continue NS at 75cc/hr for hydration. Monitor urinary output and daily weight closely for signs of fluid over load. Oral intake is good. Consider discontinuation of fluids this afternoon. Ativan as needed for anxiety and agitation while on BiPAP. Troponins continue to trend up slowing - 0.015, 0.017, 0.029, 0.045 and 0.048 this morning. Will recheck troponin at 1030 and continue to monitor closely on telemetry. Patient denies chest pain. SCDs for DVT prophylaxis. Recheck labs in AM to monitor blood counts, electrolytes and renal function. Discussed at length with patient and family the importance of smoking cessation. He admits to wanting to stop smoking and inquired about initiation of Chantix. Continue Wellbutrin for smoking cessation. With BC positive and starting IV antibiotics, will change admission status to inpatient. Anticipate greater than 2 midnights of care needed. 05/19/17 Continue with Rocephin for antimicrobial coverage. With lungs still very tight and congested, will continue with Solu-Medrol 125mg IV q 6 hours. Continue Neb treatments and acapella. Encourage use of BiPAP as much as able to help his chronic hypercapnea. Stressed with about the importance of him not smoking. She understand. Will consult with Dr Ashby for pulm evaluation. Will discontinue IVF. May restart metformin this evening. Sugars with elevation secondary to steroids. Did give Diamox 500mg x1 this am for fluid motivation and to help minimize contraction alkalosis. PT/OT to evaluate and initiate treatment tomorrow for his significant pulmonary debility. 05/20 Continue with Rocephin for antimicrobial coverage. One blood culture was positive with streptococcus Viridans, Repeat BC were drawn this morning. Scheduled breathing tx, IV solu-medrol, as well as oxygen and Bipap Appreciate Dr Ashby consultation. Likely require bronchoscopy for biopsy of lung mass. Continue to monitor BGM remain elevated. Metformin was resumed as well as sliding scale insulin. Encourage PT/OT for strengthening 05/21 Resp failure --> ABG shows resp acidosis and he was placed on BiPAP with improvement in color. Repeat ABG shows pH 7.12, pCO2 106, pO2 185. CXR ordered. BG 230. Chest pain --> EKG shows ST changes and widened QRS, poss a-flutter; troponin pending. Dr. Govea consulted. He's had 2 NTG but remains very hypertensive with SBP 220s. Pt failed to respond to adenosine, and subseqently was cardioverted with conversion to sinus tach. Rapid response activated and Dr. Ramírez was at bedside x20 min. Transferred to CCU, where pt was met by Dr. Govea for evaluation. Continue treatment for resp status including steroids and Rocephin. 05/22 Patient remains on a ventilator requiring continuous sedation. Oxygenation borderline on 40% FiO2-oxygen flow increased to 60% by pulmonary earlier today. Continue triple antibiotics (cefepime, Levaquin, vancomycin) pending sputum culture due to extensive pneumonia on CT/chest x-ray yesterday-not present on initial films. Peak troponin 3.09 with diffuse T-wave changes; discussed with Dr. Govea and will require cardiac catheterization in the future. Continue heparin drip. Blood pressure is uncontrolled-clonidine patch initiated earlier, IV hydralazine added as needed for systolic pressures above 180. OG placed-resume statin, SSRI, atenolol, and aspirin. Assess gastric residuals today-anticipate beginning tube feedings tomorrow. Adequate urine output, continue to monitor. Blood sugars remain elevated, off metformin at present. Increase basal insulin. 05/23 Patient remains on a ventilator requiring continuous sedation. Continue triple antibiotics (cefepime, Levaquin, vancomycin); suspect aspiration pneumonia-sputum culture normal charly. Extensive infiltrates on CT chest. Repeat chest x-ray in a.m. Fluid balance positive-roughly 5 L over several days, weight up-diuresis today. Potassium supplemented IV earlier today. Peak troponin 3.09 with diffuse T-wave changes; discussed with Dr. Govea and will require cardiac catheterization in the future. Continue heparin drip. Blood pressure remains elevated but improved from yesterday with addition of clonidine patch and resumption of atenolol per OG. IV hydralazine available as needed for systolic pressures above 180. OG placed 05/22-low volume gastric output overnight and tolerating medications per OG. Will initiate tube feedings with low glycemic formula at 20 mL per hour overnight. Nutrition consult. Blood sugars remain elevated, off metformin at present and on steroids. Increase basal insulin to 40 units anticipating further increase in blood sugar with initiation of tube feedings. 05/24 Remains ventilator dependent. Steroids decreased. Vancomycin discontinued, continue Levaquin and cefepime for probable aspiration pneumonia and Streptococcus viridans positive blood culture. Continue diuresis, blood pressures elevated-atenolol increased and lisinopril initiated to improve control. Tolerating tube feedings at low-volume, converted pulmonary formula with goal of 80 mL per hour. Platelet count dropping, heparin discontinued and bivalirudin initiated. 05/25 Tolerating spontaneous breathing trial, steroids decreased. Continues to require continuous sedation. Lisinopril increased to 20 mg to improve blood pressure control. Platelet count down to 100K; HIT Ab pending. Fevers overnight without evidence source, leukocytosis/left shift resolved improved. Lines to be cultured. 05/26 FiO2 titrated to 40%; diuresing well-continue same. Spontaneous breathing trial planned for the morning with possible extubation at that time. Cardiac status stable, no further tachyarrhythmias. Trend to improved blood pressures. Cardiac catheterization planned in the future. Remains on bivalirudin. Platelet count 86K today, HIT Ab pending. Tube feedings at goal, blood sugars significantly elevated-NovoLog scheduled every 6 hours and when necessary. Chest x-ray improved, remains on Levaquin and cefepime for probable aspiration pneumonia. Blood cultures drawn yesterday negative thus far. 05/27 Extubated this afternoon, OG discontinued in conjunction with extubation. CPAP initiated for respiratory support. Speech therapy, PT, OT consultations tomorrow. Anticipate significant reduction in fluid volume off sedating medications and tube feedings--> Lasix dose decreased to twice daily administration. Platelet count stabilizing, HIT Ab negative. Intermittent fever, remains on antibiotics for possible aspiration pneumonia. Repeat blood cultures negative. 05/29 Extubated 05/27 Placed on CPAP with home equipment. Baseline 5L Currently tolerating NC, oxygen support as needed to maintain sats and mentation , pulm consulted and following CXR-stable Leukocytosis-likely 2/2 steroid effect, PCT negative, no fever x48 hours Cefepime and Levaquin currently. Vanc discontinued 05/24. Likely d/c abx today. Will consult ID for abx recs Failed speech therapy Continue tube feeds and meds via Dobhoff Monitor fluid status-hold evening dose of lasix Peak troponin 3.09 on 05/21/17 with diffuse T-wave changes; heart cath 05/28-now on ASA and Bivalirudin Monitor platelet count-currently WNL Monitor BP, adjust medications as needed Monitor glucose and continue insulin as ordered Discussed with nursing staff, and infectious disease 05/30 Extubated 05/27, continue Bipap/NC as per pulm Weaning steroids CXR-improving Leukocytosis Cefepime, Levaquin, Vanc discontinued Continue Tamiflu Failed speech therapy, continue to re-eval Continue tube feeds and meds via Dobhoff, feeds at 40ml/hr, goal of 80ml/hr Discontinue lasix, give 1L NS and re-eval fluid status Continue ASA and Bivalirudin per cardiology Trend labs
[2017-05-30] MEDS: ASPIRIN *EC* 81 MG TABLET PO SCH (10:42)
--- NOTE | 2017-05-30 15:02 | Cardiology Progress Note ---
<Andreina Grijalva M - Last Filed: 05/31/17 11:13> Subjective Principal diagnosis: SOB, respiratory failure Interval history: Howard is seen in follow up for chest pain and NSTEMI. He is alert and sitting up in bed, able to converse with family and staff. He denies chest pain, palpitations, or other cardiac complaints. Exam Vital signs: Temperature 97.9 F 05/29/17 23:12 Pulse Rate 83 05/30/17 12:00 Respiratory Rate 25 H 05/30/17 10:52 Blood Pressure 90/66 05/30/17 08:00 Pulse Oximetry 94 05/30/17 10:52 Inpatient Medications: Generic Name Dose Route Start Last Admin Trade Name Freq PRN Reason Stop Dose Admin Acetaminophen 325 - 650 mg 05/17/17 10:08 05/26/17 20:58 Tylenol PO 650 mg Q5H PRN Administration Discomfort Acetaminophen 650 mg 05/21/17 15:10 Tylenol Supp [place] Q5H PRN Pain Acetaminophen 325 - 650 mg 05/28/17 09:24 Tylenol PO Q5H PRN Pain Hydrocodone Bitart/Acetaminophen 1 tab 05/17/17 21:00 05/30/17 08:36 New Site 7.5/325 PO 1 tab BID KSENIA Administration Hydrocodone Bitart/Acetaminophen 1 tab 05/17/17 10:14 New Site 7.5/325 PO Q6H PRN Pain Hydrocodone Bitart/Acetaminophen 1 - 2 tab 05/28/17 09:24 New Site 5/325 PO Q5H PRN Pain Al Hydroxide/Mg Hydroxide 30 ml 05/28/17 09:24 Maalox Plus PO Q3H PRN Indigestion Albuterol/Ipratropium 3 ml 05/17/17 10:11 Duoneb AEROSOL RTQID PRN Albuterol/Ipratropium 3 ml 05/21/17 15:15 05/30/17 10:51 Duoneb AEROSOL 3 ml Q4H KSENIA Administration Amlodipine Besylate 10 mg 05/24/17 13:46 05/30/17 08:38 Norvasc PO 10 mg DAILY KSENIA Administration Aspirin 81 mg 05/22/17 16:00 05/30/17 08:36 Asa GT 81 mg DAILY KSENIA Administration Aspirin 81 mg 05/28/17 09:24 05/30/17 10:42 Ecotrin PO Not Given DAILY [facility] Atenolol 25 mg 05/29/17 09:00 05/30/17 08:37 Tenormin PO 25 mg BID KSENIA Administration Atorvastatin Calcium 80 mg 05/28/17 21:00 05/29/17 20:01 Lipitor PO 80 mg HS KSENIA Administration Atropine Sulfate 0.5 mg 05/28/17 09:24 Atropine IVP Q5M PRN Bradycardia Benzocaine 1 lozenge 05/20/17 18:54 Cepacol Sore Throat Lozenge MM Q2HR PRN Sore throat Bisacodyl 10 mg 05/27/17 15:11 Dulcolax RECTALLY DAILY PRN Constipation Bisacodyl 5 - 10 mg 05/28/17 09:24 Dulcolax PO DAILY PRN Constipation Bisacodyl 10 mg 05/28/17 09:24 Dulcolax RECTALLY DAILY PRN Constipation Budesonide 0.5 mg 05/17/17 19:00 05/30/17 07:13 Pulmicort Inhalation AEROSOL 0.5 mg RTBID KSENIA Administration Bupropion HCl 150 mg 05/17/17 21:00 05/30/17 08:36 Wellbutrin Sr PO 150 mg BID [facility] Administration Citalopram Hydrobromide 40 mg 05/18/17 09:00 05/30/17 08:37 Celexa PO 40 mg DAILY KSENIA Administration Clonidine HCl 0.1 mg 05/22/17 09:00 05/29/17 08:01 Catapres-Tts 1 TD 0.1 mg Q7D@0900 KSENIA Administration Clonidine HCl 1 removal 05/29/17 08:59 05/29/17 08:13 Catapres Patch Removal TD 1 removal Q7D KSENIA Administration Furosemide 20 mg 05/29/17 09:00 Lasix IVP DAILY [facility] Gabapentin 300 mg 05/17/17 15:00 05/30/17 08:36 Neurontin PO 300 mg TID KSENIA Administration Glucose 37.5 gm 05/17/17 10:12 Glutose 15 PO PRN PRN Hypoglycemia Guaifenesin 400 mg 05/29/17 12:00 05/30/17 12:51 Robitussin Liq PO 400 mg Q6H KSENIA Administration Hydralazine HCl 10 mg 05/22/17 15:01 05/28/17 06:06 Apresoline IVP 10 mg Q4H PRN Administration Hypertension Insulin Aspart 2 - 14 unit 05/21/17 11:43 05/30/17 11:36 Novolog SQ 7 unit SS PRN Administration Hyperglycemia Protocol Insulin Aspart 10 unit 05/28/17 18:00 05/30/17 12:51 Novolog SQ 10 unit Q6H KSENIA Administration Insulin Glargine 40 unit 05/23/17 21:00 05/29/17 20:05 Lantus SQ 40 unit HS KSENIA Administration Lisinopril 10 mg 05/24/17 16:15 05/30/17 08:36 Prinivil PO 10 mg DAILY [facility] Administration Lorazepam 1 mg 05/24/17 19:46 05/26/17 05:02 Ativan Inj IVP 1 mg Q2H PRN Administration Agitation/Air hunger/Pain Lorazepam 0.5 - 1 mg 05/28/17 09:24 Ativan PO Q4H PRN Anxiety Lorazepam 0.5 - 1 mg 05/28/17 09:24 Ativan Inj IVP Q4H PRN Anxiety Magnesium Hydroxide 30 ml 05/28/17 09:24 Mom PO DAILY PRN Constipation Menthol 1 lozenge 05/18/17 08:19 Ricola Sf MM PRN PRN Cough Methylprednisolone Sodium Succinate 60 mg 05/29/17 21:00 05/30/17 08:38 Solu-Medrol IVP 60 mg Q12HR KSENIA Administration Metoclopramide HCl 5 - 10 mg 05/28/17 09:24 Reglan IVP Q6H PRN Nausea &/or vomiting Metoclopramide HCl 5 mg 05/30/17 14:00 Reglan GT Q6H [facility] Morphine Sulfate 2 - 4 mg 05/28/17 09:24 Morphine Sulfate Inj IVP Q5M PRN Angina Nitroglycerin 0.4 mg 05/17/17 10:14 05/21/17 08:35 Nitrostat SL 0.4 mg Q5MIN3 PRN Administration CP Nitroglycerin 0.4 mg 05/28/17 09:24 Nitrostat SL Q5M PRN Angina Omeprazole 40 mg 05/18/17 06:30 05/30/17 05:45 Prilosec PO Not Given ACB KSENIA Ondansetron HCl 4 mg 05/28/17 09:24 Zofran IVP Q6H PRN Nausea &/or vomiting Oseltamivir Phosphate 75 mg 05/29/17 21:00 05/30/17 08:42 Tamiflu 06/03/17 09:01 75 mg BID KSENIA Administration Pantoprazole Sodium 40 mg 05/22/17 09:00 05/30/17 08:40 Protonix Iv IVP 40 mg DAILY KSENIA Administration Promethazine HCl 12.5 - 25 mg 05/28/17 09:24 Phenergan Inj IVP Q6HR PRN Nausea &/or vomiting Sodium Chloride 10 - 80 ml 05/17/17 05:20 05/27/17 01:31 Iv Flush IVF 50 ml PRN PRN Administration Flushing Sodium Chloride 1 spray 05/19/17 11:42 05/19/17 16:37 Deep Sea Nasal Moisturizing [place] EA NOSTRIL 1 spray PRN PRN Administration Congestion Sodium Chloride 500 ml 05/25/17 21:40 05/25/17 21:52 Normal Saline IV 500 ml PRN PRN Administration Ticagrelor 90 mg 05/28/17 21:01 05/30/17 08:36 Brilinta PO 90 mg Q12H KSENIA Administration Discontinued Medications Generic Name Dose Route Start Last Admin Trade Name Freq PRN Reason Stop Dose Admin Acetazolamide 500 mg 05/19/17 10:51 05/19/17 11:25 Diamox PO 05/19/17 10:52 500 mg O ONE Administration Adenosine 12 mg 05/21/17 09:17 05/21/17 08:50 Adenocard IVP 05/21/17 09:18 12 mg O ONE Administration Adenosine 6 mg 05/21/17 09:18 05/21/17 09:23 Adenocard IVP 05/21/17 09:19 6 mg O ONE Administration Albuterol/Ipratropium 6 ml 05/17/17 05:19 05/17/17 05:33 Duoneb AEROSOL 05/17/17 05:20 6 ml O ONE Administration Albuterol/Ipratropium 3 ml 05/17/17 11:00 05/21/17 18:22 Duoneb AEROSOL Not Given RTQID KSENIA Aspirin 81 mg 05/18/17 09:00 05/23/17 08:26 Asa PO Not Given DAILY [facility] Atenolol 25 mg 05/18/17 09:00 05/24/17 08:58 Tenormin PO 25 mg DAILY KSENIA Administration Atenolol 50 mg 05/25/17 09:00 05/28/17 12:30 Tenormin PO Not Given DAILY [facility] Atenolol 25 mg 05/24/17 09:40 05/24/17 11:09 Tenormin PO 05/24/17 09:41 25 mg O ONE Administration Bivalirudin 250 mg 05/24/17 14:15 Angiomax IV NOW [facility] Enoxaparin Sodium 1 each 05/18/17 10:47 05/18/17 12:54 Pharmacy Consult - Lovenox MC 05/18/17 10:48 1 each O ONE Administration Enoxaparin Sodium 50 mg 05/18/17 11:45 05/20/17 08:37 Lovenox SQ 50 mg DAILY KSENIA Administration Enoxaparin Sodium 142 mg 05/27/17 17:00 05/28/17 09:34 Lovenox SQ 142 mg DAILY KSENIA Administration Furosemide 20 mg 05/18/17 09:00 05/20/17 08:37 Lasix PO 20 mg DAILY KSENIA Administration Furosemide 40 mg 05/21/17 09:37 05/21/17 09:45 Lasix IVP 05/21/17 09:38 40 mg ONCE ONE Administration Furosemide 20 mg 05/23/17 21:00 05/24/17 08:59 Lasix IVP 20 mg Q12HR KSENIA Administration Furosemide 20 mg 05/24/17 17:00 05/27/17 09:31 Lasix IVP 20 mg Q8HR KSENIA Administration Furosemide 20 mg 05/27/17 21:00 05/29/17 08:09 Lasix IVP 20 mg Q12H [facility] Administration Guaifenesin 1,200 mg 05/18/17 09:00 05/29/17 08:14 Mucinex La PO Not Given BID [facility] Heparin Sodium (Beef Lung) 5,000 unit 05/21/17 09:23 05/21/17 10:07 Heparin Bolus IVP 05/21/17 09:24 5,000 unit O ONE Administration Heparin Sodium (Beef Lung) 3,000 unit 05/21/17 17:45 05/21/17 17:53 Heparin Bolus IVP 05/21/17 17:46 3,000 unit O ONE Administration Heparin Sodium (Beef Lung) 3,000 unit 05/22/17 03:37 05/22/17 03:46 Heparin Bolus IVP 05/22/17 03:38 3,000 unit O ONE Administration Heparin Sodium (Porcine) 1 each 05/21/17 09:08 Pharmacy Consult - Heparin 05/21/17 09:09 ONE TIME ONE Hydralazine HCl 5 mg 05/22/17 08:47 05/22/17 10:09 Apresoline IVP 5 mg Q6H PRN Administration Hypertension Sodium Chloride 1,000 mls @ 999.9 mls/hr 05/17/17 05:44 05/17/17 11:20 Normal Saline IV 05/17/17 06:43 Infused .Q1H ONE Infusion Sodium Chloride 1,000 mls @ 75 mls/hr 05/17/17 10:08 05/19/17 11:19 Normal Saline IV Infused .[id number] KSENIA Infusion Ceftriaxone Sodium 2 gm/ 100 mls @ 200 mls/hr 05/18/17 01:15 05/18/17 01:50 Sodium Chloride IV Infused Q24H KSENIA Infusion Ceftriaxone Sodium 2 gm/ 50 mls @ 100 mls/hr 05/18/17 21:00 05/20/17 21:55 Sodium Chloride IV Infused Q24H KSENIA Infusion Heparin Sodium (Porcine) 20,000 unit in 500 mls @ 44 mls/hr 05/21/17 09:30 13:17 Heparin Drip IV Infused .[id number] KSENIA Titration Protocol Dexmedetomidine HCl 200 mcg/ 52 mls @ 6.87 mls/hr 05/21/17 09:52 05/21/17 20: 00 Sodium Chloride IV 05/21/17 20:29 0 mcg/kg/hr .Q7H35M PRN 0 mls/hr Protocol Titration 0.2 MCG/KG/HR Propofol 1,000 mg in 100 mls @ 3.969 mls/hr 05/21/17 10:39 05/21/17 14:28 Diprivan IV 0 mcg/kg/min .Q24H PRN 0 mls/hr Protocol Infusion 5 MCG/KG/MIN Fentanyl 1,000 mcg/ Sodium 100 mls @ 0 mls/hr 05/21/17 13:02 05/27/17 14:45 Chloride IV Infused .Q0M PRN Titration Protocol Per Protocol Sodium Chloride 250 mls @ 999.9 mls/hr 05/21/17 13:15 05/21/17 14:28 Normal Saline IV 05/21/17 13:29 Infused .Q15M KSENIA Infusion Cefepime HCl 1 gm/ Sodium 50 mls @ 100 mls/hr 05/21/17 15:30 05/29/17 10:46 Chloride IV Infused Q6H [facility]EN[facility] Infusion Levofloxacin/Dextrose 750 mg in 150 mls @ 100 mls/hr 05/21/17 16:00 05/28/17 17:15 Levaquin Premix IV Infused Q24H KSENIA Infusion Vancomycin HCl 1,500 mg/ 500 mls @ 250 mls/hr 05/21/17 18:00 05/24/17 12:15 Sodium Chloride IV Infused Q8H KSENIA Infusion Dexmedetomidine HCl 1,000 mcg/ 260 mls @ 6.87 mls/hr 05/21/17 20:30 05/27/17 14:45 Sodium Chloride IV 05/27/17 14:45 Infused .Q24H PRN Titration Protocol 0.2 MCG/KG/HR Potassium Chloride 10 meq in 100 mls @ 100 mls/hr 05/23/17 09:45 05/23/17 17: 34 Potassium Chloride Premix IV 05/23/17 13:44 Infused Q1H KSENIA Infusion Heparin Sodium (Porcine) 20,000 unit in 500 mls @ 45 mls/hr 05/23/17 16:00 06:16 Heparin Drip IV Not Given .Q11H7M KSENIA Protocol Potassium Chloride 10 meq in 100 mls @ 100 mls/hr 05/24/17 09:45 05/24/17 15: 56 Potassium Chloride Premix IV 05/24/17 13:44 Not Given Q1H KSENIA Potassium Chloride 10 meq/ 105 mls @ 105 mls/hr 05/24/17 11:45 05/24/17 17:00 Sodium Chloride IV 05/24/17 15:44 Infused Q1H KSENIA Infusion Bivalirudin 250 mg/ Sodium 500 mls @ 43.2 mls/hr 05/24/17 15:15 05/27/17 17: 34 Chloride IV Not Given .[id number] KSENIA Sodium Chloride 1,000 mls @ 75 mls/hr 05/28/17 07:45 05/28/17 14:00 Normal Saline IV Infused .[id number] KSENIA Infusion Sodium Chloride 1,000 mls @ 500 mls/hr 05/30/17 10:14 05/30/17 10:41 Normal Saline IV 05/30/17 12:13 500 mls/hr .Q2H ONE Administration Insulin Aspart 1 - 5 unit 05/17/17 10:12 05/18/17 06:06 Novolog SQ 2 unit SS PRN Administration Hyperglycemia Protocol Insulin Aspart 2 - 8 unit 05/18/17 08:22 05/21/17 07:30 Novolog SQ 3 unit SS PRN Administration Hyperglycemia Protocol Insulin Aspart 15 unit 05/20/17 10:32 05/20/17 10:36 Novolog SQ 05/20/17 10:33 15 unit ONE TIME ONE Administration Insulin Aspart 10 unit 05/26/17 12:00 05/26/17 13:54 Novolog SQ Not Given Q6H KSENIA Insulin Aspart 10 unit 05/26/17 15:00 05/27/17 21:06 Novolog SQ Not Given 0300,0900,1500,2100 KSENIA Insulin Aspart 10 unit 05/28/17 15:00 Novolog SQ Q6HR KSENIA Insulin Glargine 10 unit 05/21/17 21:00 05/21/17 20:14 Lantus SQ 10 unit HS KSENIA Administration Insulin Glargine 20 unit 05/22/17 21:00 05/22/17 20:14 Lantus SQ 20 unit HS KSENIA Administration Labetalol HCl 10 mg 05/21/17 20:40 05/22/17 06:05 Trandate IVP 10 mg Q4H PRN Administration INCREASED blood pressure Lorazepam 1 mg 05/17/17 06:16 05/17/17 06:56 Ativan PO 05/17/17 06:17 1 mg O ONE Administration Lorazepam 0.5 mg 05/17/17 10:13 05/24/17 15:55 Ativan Inj IVP 0.5 mg Q6H PRN Administration Magnesium Hydroxide 30 ml 05/26/17 12:41 05/26/17 13:53 Mom GT 05/26/17 12:42 30 ml O ONE Administration Metformin HCl 500 mg 05/17/17 17:30 05/18/17 10:00 Glucophage PO Not Given BIDWM KSENIA Metformin HCl 500 mg 05/19/17 09:00 05/21/17 10:52 Glucophage PO Not Given BIDWM KSENIA Methylprednisolone Sodium Succinate 125 mg 05/17/17 06:26 05/17/17 06:53 Solu-Medrol IM 05/17/17 06:27 125 mg O ONE Administration Methylprednisolone Sodium Succinate 125 mg 05/17/17 15:00 05/20/17 08:37 Solu-Medrol IVP 125 mg Q6HR KSENIA Administration Methylprednisolone Sodium Succinate 80 mg 05/20/17 15:00 05/24/17 08:57 Solu-Medrol IVP 80 mg Q6HR KSENIA Administration Methylprednisolone Sodium Succinate 80 mg 05/24/17 17:00 05/26/17 08:23 Solu-Medrol IVP 80 mg Q8HR KSENIA Administration Methylprednisolone Sodium Succinate 80 mg 05/26/17 21:00 05/29/17 08:15 Solu-Medrol IVP 80 mg Q12HR KSENIA Administration Metoclopramide HCl 5 mg 05/23/17 17:30 05/30/17 10:42 Reglan GT 5 mg Q6H KSENIA Administration Metoprolol Tartrate 15 mg 05/21/17 09:18 05/21/17 09:05 Lopressor IVP 05/21/17 09:19 15 mg ONCE ONE Administration Metoprolol Tartrate 5 mg 05/28/17 10:01 05/28/17 10:00 Lopressor IVP 05/28/17 10:02 5 mg ONCE ONE Administration Morphine Sulfate 1 - 2 mg 05/17/17 10:08 05/24/17 17:56 Morphine Sulfate Inj IVP 2 mg Q2H PRN Administration Pain Morphine Sulfate 2 - 4 mg 05/28/17 09:24 05/28/17 10:17 Morphine Sulfate Inj IVP 05/29/17 09:23 4 mg Q2H PRN Administration Pain --Pom--(Itraconazole 200 mg 05/17/17 21:00 05/29/17 09:39 [Itraconazole] 200 PO Not Given Mg) BID KSENIA Ondansetron HCl 4 mg 05/17/17 10:08 05/19/17 02:45 Zofran IVP 4 mg Q6H PRN Administration Nausea &/or vomiting Pharmacy Consult 1 each 05/17/17 10:32 Pharmacy Consult - Fall Risk XX 05/17/17 10:33 ONE TIME ONE Pharmacy Consult 1 each 05/27/17 10:17 Pharmacy Consult - Fall Risk XX 05/27/17 10:18 ONE TIME ONE Potassium Chloride 40 meq 05/24/17 18:10 05/26/17 06:13 Kcl Oral Liq 20 Meq/15 Ml PO Not Given BIDWM KSENIA Potassium Chloride 40 meq 05/25/17 13:00 05/26/17 08:22 Kcl Oral Liq 20 Meq/15 Ml PO 40 meq QID KSENIA Administration Potassium Chloride 40 meq 05/26/17 12:00 05/27/17 12:04 Kcl Oral Liq 20 Meq/15 Ml PO 40 meq TIDWM KSENIA Administration Potassium Chloride 40 meq 05/27/17 17:30 05/29/17 07:59 Kcl Oral Liq 20 Meq/15 Ml PO 40 meq BIDWM KSENIA Administration Potassium Chloride 40 meq 05/29/17 09:00 05/30/17 08:42 Kcl Oral Liq 20 Meq/15 Ml PO 40 meq DAILY KSENIA Administration Simvastatin 20 mg 05/17/17 21:00 05/27/17 20:36 Zocor PO Not Given HS [facility] Vancomycin HCl 1 each 05/21/17 15:19 05/21/17 15:53 Pharmacy Consult - Vancomycin MC 05/21/17 15:20 1 each O ONE Administration - Constitutional no acute distress, morbidly obese, cooperative - Routine HEENT Exam Head: Present: normocephalic ENT: Present: mucous membranes dry - Routine Neck Exam Absent: JVD, carotid bruit - Routine Chest/Breast/Axilla Exam Chest wall: Absent: tenderness, pacemaker - Routine Respiratory Exam Present: decreased breath sounds, diminished air movement - Routine Cardiovascular Exam Present: RRR, no murmur - Routine Abdominal Exam Present: soft - Routine Extremities Exam Present: edema - Routine Skin Exam Present: intact, dry, warm - Routine Neurological Exam Present: alert - Routine Psychiatric Exam Present: normal affect - Additional findings Additional findings: Acetaminophen (Tylenol) 325 - 650 mg PO Q5H PRN PRN Reason: Discomfort Last Admin: 05/26/17 20:58 Dose: 650 mg Acetaminophen (Tylenol Supp) 650 mg [place] Q5H PRN PRN Reason: Pain Acetaminophen (Tylenol) 325 - 650 mg PO Q5H PRN PRN Reason: Pain Hydrocodone Bitart/Acetaminophen (New Site 7.5/325) 1 tab PO BID KSENIA Last Admin: 05/30/17 08:36 Dose: 1 tab Hydrocodone Bitart/Acetaminophen (New Site 7.5/325) 1 tab PO Q6H PRN PRN Reason: Pain Hydrocodone Bitart/Acetaminophen (New Site 5/325) 1 - 2 tab PO Q5H PRN PRN Reason: Pain Al Hydroxide/Mg Hydroxide (Maalox Plus) 30 ml PO Q3H PRN PRN Reason: Indigestion Albuterol/Ipratropium (Duoneb) 3 ml AEROSOL RTQID PRN Albuterol/Ipratropium (Duoneb) 3 ml AEROSOL Q4H [facility] Last Admin: 05/30/17 10:51 Dose: 3 ml Amlodipine Besylate (Norvasc) 10 mg PO DAILY [facility] Last Admin: 05/30/17 08:38 Dose: 10 mg Aspirin (Asa) 81 mg GT DAILY [facility] Last Admin: 05/30/17 08:36 Dose: 81 mg Aspirin (Ecotrin) 81 mg PO DAILY [facility] Last Admin: 05/30/17 10:42 Dose: Not Given Atenolol (Tenormin) 25 mg PO BID [facility] Last Admin: 05/30/17 08:37 Dose: 25 mg Atorvastatin Calcium (Lipitor) 80 mg PO HS [facility] Last Admin: 05/29/17 20:01 Dose: 80 mg Atropine Sulfate (Atropine) 0.5 mg IVP Q5M PRN PRN Reason: Bradycardia Benzocaine (Cepacol Sore Throat Lozenge) 1 lozenge MM Q2HR PRN PRN Reason: Sore throat Bisacodyl (Dulcolax) 10 mg RECTALLY DAILY PRN PRN Reason: Constipation Bisacodyl (Dulcolax) 5 - 10 mg PO DAILY PRN PRN Reason: Constipation Bisacodyl (Dulcolax) 10 mg RECTALLY DAILY PRN PRN Reason: Constipation Budesonide (Pulmicort Inhalation) 0.5 mg AEROSOL RTBID [facility] Last Admin: 05/30/17 07:13 Dose: 0.5 mg Bupropion HCl (Wellbutrin Sr) 150 mg PO BID [facility] Last Admin: 05/30/17 08:36 Dose: 150 mg Citalopram Hydrobromide (Celexa) 40 mg PO DAILY [facility] Last Admin: 05/30/17 08:37 Dose: 40 mg Clonidine HCl (Catapres-Tts 1) 0.1 mg TD Q7D@0900 [facility] Last Admin: 05/29/17 08:01 Dose: 0.1 mg Clonidine HCl (Catapres Patch Removal) 1 removal TD Q7D [facility] Last Admin: 05/29/17 08:13 Dose: 1 removal Furosemide (Lasix) 20 mg IVP DAILY [facility] Gabapentin (Neurontin) 300 mg PO TID [facility] Last Admin: 05/30/17 08:36 Dose: 300 mg Glucose (Glutose 15) 37.5 gm PO PRN PRN PRN Reason: Hypoglycemia Guaifenesin (Robitussin Liq) 400 mg PO Q6H [facility] Last Admin: 05/30/17 12:51 Dose: 400 mg Hydralazine HCl (Apresoline) 10 mg IVP Q4H PRN PRN Reason: Hypertension Last Admin: 05/28/17 06:06 Dose: 10 mg Insulin Aspart (Novolog) 2 - 14 unit SQ SS PRN; Protocol PRN Reason: Hyperglycemia Last Admin: 05/30/17 11:36 Dose: 7 unit Insulin Aspart (Novolog) 10 unit SQ Q6H [facility] Last Admin: 05/30/17 12:51 Dose: 10 unit Insulin Glargine (Lantus) 40 unit SQ HS [facility] Last Admin: 05/29/17 20:05 Dose: 40 unit Lisinopril (Prinivil) 10 mg PO DAILY [facility] Last Admin: 05/30/17 08:36 Dose: 10 mg Lorazepam (Ativan Inj) 1 mg IVP Q2H PRN PRN Reason: Agitation/Air hunger/Pain Last Admin: 05/26/17 05:02 Dose: 1 mg Lorazepam (Ativan) 0.5 - 1 mg PO Q4H PRN PRN Reason: Anxiety Lorazepam (Ativan Inj) 0.5 - 1 mg IVP Q4H PRN PRN Reason: Anxiety Magnesium Hydroxide (Mom) 30 ml PO DAILY PRN PRN Reason: Constipation Menthol (Ricola Sf) 1 lozenge MM PRN PRN PRN Reason: Cough Methylprednisolone Sodium Succinate (Solu-Medrol) 60 mg IVP Q12HR [facility] Last Admin: 05/30/17 08:38 Dose: 60 mg Metoclopramide HCl (Reglan) 5 - 10 mg IVP Q6H PRN PRN Reason: Nausea &/or vomiting Metoclopramide HCl (Reglan) 5 mg GT Q6H [facility] Morphine Sulfate (Morphine Sulfate Inj) 2 - 4 mg IVP Q5M PRN PRN Reason: Angina Nitroglycerin (Nitrostat) 0.4 mg SL Q5MIN3 PRN PRN Reason: CP Last Admin: 05/21/17 08:35 Dose: 0.4 mg Nitroglycerin (Nitrostat) 0.4 mg SL Q5M PRN PRN Reason: Angina Omeprazole (Prilosec) 40 mg PO ACB [facility] Last Admin: 05/30/17 05:45 Dose: Not Given Ondansetron HCl (Zofran) 4 mg IVP Q6H PRN PRN Reason: Nausea &/or vomiting Oseltamivir Phosphate (Tamiflu) 75 mg BID [facility] Stop: 06/03/17 09:01 Last Admin: 05/30/17 08:42 Dose: 75 mg Pantoprazole Sodium (Protonix Iv) 40 mg IVP DAILY [facility] Last Admin: 05/30/17 08:40 Dose: 40 mg Promethazine HCl (Phenergan Inj) 12.5 - 25 mg IVP Q6HR PRN PRN Reason: Nausea &/or vomiting Sodium Chloride (Iv Flush) 10 - 80 ml IVF PRN PRN PRN Reason: Flushing Last Admin: 05/27/17 01:31 Dose: 50 ml Sodium Chloride (Deep Sea Nasal Moisturizing [place]) 1 spray EA NOSTRIL PRN PRN PRN Reason: Congestion Last Admin: 05/19/17 16:37 Dose: 1 spray Sodium Chloride (Normal Saline) 500 ml IV PRN PRN Last Admin: 05/25/17 21:52 Dose: 500 ml Ticagrelor (Brilinta) 90 mg PO Q12H [facility] Last Admin: 05/30/17 08:36 Dose: 90 mg - Urinary Catheter Management Urethral Cath placed during this visit: yes Insertion date: 05/21/17 Results 05/31/17 04:44 05/31/17 04:44 Cardiac Enzymes 05/30/17 Range/Units 04:54 AST 30 (17-59) U/L CBC 05/30/17 Range/Units 04:54 WBC 16.7 H (4.5-11.0) T/MM3 RBC 4.29 L (4.50-5.90) M/MM3 Hgb 12.9 L (13.5-17.5) GM/DL Hct 42.0 (41-53) % Plt Count 110 L (130-400) T/MM3 Neut # (Auto) Not performed Lymph # (Auto) Not performed [place] # (Auto) Not performed Eos # (Auto) Not performed Baso # (Auto) Not performed Comprehensive Metabolic Panel 05/30/17 Range/Units 04:54 Sodium 146 H (134-144) MEQ/L Potassium 4.3 (3.6-5) MEQ/L Chloride 106 (98-107) MEQ/L Carbon Dioxide 34 H (22-30) MEQ/L BUN 52.0 H* (9-20) MG/DL Creatinine 0.6 L (0.8-1.5) MG/DL Glucose 308 H (75-110) MG/DL Calcium 8.5 (8.4-10.2) MG/DL AST 30 (17-59) U/L ALT 75 H (21-72) U/L Alkaline Phosphatase 79 (38-126) U/L Total Protein 5.2 L (6.3-8.2) G/DL Albumin 2.8 L (3.5-5.0) G/DL Intake and Output 05/29/17 05/30/17 05/30/17 22:59 06:59 14:59 Intake Total 530 / 530 870 / 870 510 / 510 Output Total 640 / 640 785 / 785 225 / 225 Balance -110 / -110 85 / 85 285 / 285 Intake: Tube Feeding 280 / 280 320 / 320 200 / 200 Oral 280 / 280 320 / 320 200 / 200 Intake, Gastric Tube Irrigant 250 / 250 550 / 550 310 / 310 Amount Oral 250 / 250 550 / 550 310 / 310 Output: Urine Amount (Catheter) 640 / 640 785 / 785 225 / 225 Other: Urine Appearance Clear Clear Urine Color Yellow Yellow Weight 288 lb 1.954 oz Patient Weight 05/31/17 06:59 Weight 288 lb 1.954 oz - Imaging and Cardiology Imaging & Cardiology Narrative: Date of Exam: 05/30/17 Ordering Provider: Ariane Flores APRN Type of Exam(s): XR chest 1V Reason for Exam(s): f/u pna Indication: f/u pna PROCEDURE: XR chest 1V: Encounter: Initial Comparison: May 28, 2017 Findings: Enteric tube and left PICC line remain in place. Improving aeration of the right lower lobe. Residual linear atelectasis in the left lower lobe. Small right effusion. No pneumothorax. Heart size and mediastinal contours are stable. Pulmonary vascularity is grossly normal. Impression: Improving aeration of the right base. 05/30/17 15:06 Assessment and Plan - Assessment and Plan (1) Chest pain Current visit: Yes Status: Acute (2) Community acquired pneumonia Current visit: No Status: Acute (3) Acute and chronic respiratory failure with hypercapnia Current visit: Yes Status: Acute (4) Atherosclerotic heart disease of [place] coronary artery without angina pectoris Current visit: Yes Status: Chronic (5) Essential (primary) hypertension Current visit: Yes Status: Chronic (6) Type 2 diabetes mellitus without complications Current visit: Yes Status: Chronic (7) Obesity (BMI 30-39.9) Current visit: Yes Status: Chronic (8) ANGELLA (obstructive sleep apnea) Current visit: Yes Status: Chronic (9) NSTEMI (non-ST elevated myocardial infarction) Current visit: Yes Status: Acute - Assessment and Plan 05/21/17 Reportedly had severe chest pain, was johnson and diaphoretic as well as tachypneic followed by decreased LOC. - HR 140s, sinus tach vs. A flutter - Given Adenosine 6mg IVP, followed by 12mg X2 without slowing HR. - Sedation given and attempted DCCV which was unsuccessful. - Following 2nd dose of Metoprolol 5mg IV heart rate slowed enough to confirm it is Sinus tachycardia. - Repeat EKG obtained, started on Heparin drip. - Trend Troponin - 2D echo - CTA for emboli/ dissection 05/22/17 NSTEMI: - Troponin: 1) 0.015, 2) 1.500, 3) 3.090, 4) 2.100 - EKG: SR, anterolateral ischemia V3-V6, inferior ischemia II/aVf - Left heart cath when more stable - Continue Heparin drip. HTN: Catapress TTS 1 patch while NPO - Hydralazine prn as ordered - Labetalol prn, hold HR <65 05/23/17 BP improving - EKG now please 05/24/17 Stop Heparin drip, get HIT panel Spoke with pharmacy, start Angiomax at 0.15mg/kg/hr (21.6mg/hr) until HIT panel resulted. Continues to have ST depression on Telemetry and EKG. Add Amlodipine 10mg per OG tube for better BP control 05/27/17 - Plan left heart cath with possible PCI in the am - Stop Angiomax drip - Give Lovenox 1mg/kg SQ tonight - Watch platelets closely 05/29/17 He had a left heart cath yesterday with successful primary stents of LAD using a 2.75 x 18 and another 2.75 x 18 drug-eluting Resolute [place] stents. - Aspirin 81mg daily, Brilinta 90mg BID for dual antiplatelet therapy - Change Simvastatin to Atorvastatin 80mg at HS - Continue to Hold Metformin - Change Atenolol 50mg daily to 25mg BID - Decrease IV Lasix to daily and K+ to daily as BUN is rising and is post cath. 05/30/17 BP remains variable. Consider changing Catapres to an oral agent tomorrow Thank you for allowing us to participate in the care of this patient, we will follow along with you. Hospital Course Summary Disclaimer: The visit summary below is not to be considered part of the above Progress Note. Hospital Course: 05/17/17 Admission Admit to observation status under the care of Dr. Lopez. Sepsis work up initiated in ED. Patient meeting SIRS criteria based on tachycardia, tachypnea and reported fevers at home without obvious source. Initial lactate was 1.4 with repeat lactate decreased to 0.9. Blood cultures pending. WBC stable at 5.0. CXR revealed left basilar scarring without focal pneumonia. Respiratory panel was negative. Patient was given DuoNeb treatments and Solu-Medrol 125mg IV in ED. Will continue respiratory care with DuoNeb treatments QID and Q6H PRN as well as Solu -Medrol 125mg IV Q6H. History of diabetes with A1c on 04/17/17 at 6.4%. Continue home medications and monitor blood sugars closely given treatment with steroids. Sliding scale insulin as indicated for hyperglycemia. Patient was placed on BiPAP in ED with improvement. Continue BiPAP as indicated. Ativan as needed for anxiety and agitation while on BiPAP. Will monitor closely on telemetry with continuous pulse oximetry. Oxygen as needed to maintain SAO2 between 90-95%, weaning as able to baseline of 5L. SCDs for DVT prophylaxis. Given sudden onset of dyspnea, will obtain CT angio chest for further evaluation of PE - results pending. NS at 100cc/hr for hydration given decreased oral intake as on BiPAP. Monitor daily weight closely for signs of fluid overload. Recheck labs in AM to monitor blood counts, electrolytes and renal function. Patient wishes to maintain FULL CODE status. Upon discharge, patient's care will be returned to his PCP, Dr. Odom. 05/18/17 Don reports that his breathing is a little better today and is he is more alert. New cough with sputum production. 1 of the 2 blood cultures obtained on admission is POSITIVE for Streptococcus. Night telehospitalist was notified and Rocephin 2g IV Q24 hours was initiated for antimicrobial coverage. Given new cough, will try and obtain a sputum culture. Mucinex for mucolytic effect. Ricola for cough. Continue respiratory care including nebulized treatments. Continue to encourage BiPAP as indicated and supplemental oxygen to maintain SAO2 between 90 -95%. Wean oxygen to baseline of 5L as able. Given sudden onset of dyspnea, CT angio chest was obtained and revealed no PE but did note 2.2cm left lower lobe pulmonary nodule raising concern for primary lung malignancy and recommended further evaluation. Will discuss consideration of pulmonary consult for further evaluation. Continue Solu-Medrol 125mg IV Q6 hours. Anticipate initiation of tapering in near future. Blood sugars remain elevated, most likely steroid effect, ranging from 160's-> 200. Continue sliding scale insulin. Given recent CT with contrast, will hold metformin and restart 05/19/17. Continue NS at 75cc/hr for hydration. Monitor urinary output and daily weight closely for signs of fluid over load. Oral intake is good. Consider discontinuation of fluids this afternoon. Ativan as needed for anxiety and agitation while on BiPAP. Troponins continue to trend up slowing - 0.015, 0.017, 0.029, 0.045 and 0.048 this morning. Will recheck troponin at 1030 and continue to monitor closely on telemetry. Patient denies chest pain. SCDs for DVT prophylaxis. Recheck labs in AM to monitor blood counts, electrolytes and renal function. Discussed at length with patient and family the importance of smoking cessation. He admits to wanting to stop smoking and inquired about initiation of Chantix. Continue Wellbutrin for smoking cessation. With BC positive and starting IV antibiotics, will change admission status to inpatient. Anticipate greater than 2 midnights of care needed. 05/19/17 Continue with Rocephin for antimicrobial coverage. With lungs still very tight and congested, will continue with Solu-Medrol 125mg IV q 6 hours. Continue Neb treatments and acapella. Encourage use of BiPAP as much as able to help his chronic hypercapnea. Stressed with about the importance of him not smoking. She understand. Will consult with Dr Ashby for pulm evaluation. Will discontinue IVF. May restart metformin this evening. Sugars with elevation secondary to steroids. Did give Diamox 500mg x1 this am for fluid motivation and to help minimize contraction alkalosis. PT/OT to evaluate and initiate treatment tomorrow for his significant pulmonary debility. 05/20 Continue with Rocephin for antimicrobial coverage. One blood culture was positive with streptococcus Viridans, Repeat BC were drawn this morning. Scheduled breathing tx, IV solu-medrol, as well as oxygen and Bipap Appreciate Dr Ashby consultation. Likely require bronchoscopy for biopsy of lung mass. Continue to monitor BGM remain elevated. Metformin was resumed as well as sliding scale insulin. Encourage PT/OT for strengthening 05/21 Resp failure --> ABG shows resp acidosis and he was placed on BiPAP with improvement in color. Repeat ABG shows pH 7.12, pCO2 106, pO2 185. CXR ordered. BG 230. Chest pain --> EKG shows ST changes and widened QRS, poss a-flutter; troponin pending. Dr. Govea consulted. He's had 2 NTG but remains very hypertensive with SBP 220s. Pt failed to respond to adenosine, and subseqently was cardioverted with conversion to sinus tach. Rapid response activated and Dr. Ramírez was at bedside x20 min. Transferred to CCU, where pt was met by Dr. Govea for evaluation. Continue treatment for resp status including steroids and Rocephin. 05/22 Patient remains on a ventilator requiring continuous sedation. Oxygenation borderline on 40% FiO2-oxygen flow increased to 60% by pulmonary earlier today. Continue triple antibiotics (cefepime, Levaquin, vancomycin) pending sputum culture due to extensive pneumonia on CT/chest x-ray yesterday-not present on initial films. Peak troponin 3.09 with diffuse T-wave changes; discussed with Dr. Govea and will require cardiac catheterization in the future. Continue heparin drip. Blood pressure is uncontrolled-clonidine patch initiated earlier, IV hydralazine added as needed for systolic pressures above 180. OG placed-resume statin, SSRI, atenolol, and aspirin. Assess gastric residuals today-anticipate beginning tube feedings tomorrow. Adequate urine output, continue to monitor. Blood sugars remain elevated, off metformin at present. Increase basal insulin. 05/23 Patient remains on a ventilator requiring continuous sedation. Continue triple antibiotics (cefepime, Levaquin, vancomycin); suspect aspiration pneumonia-sputum culture normal charly. Extensive infiltrates on CT chest. Repeat chest x-ray in a.m. Fluid balance positive-roughly 5 L over several days, weight up-diuresis today. Potassium supplemented IV earlier today. Peak troponin 3.09 with diffuse T-wave changes; discussed with Dr. Govea and will require cardiac catheterization in the future. Continue heparin drip. Blood pressure remains elevated but improved from yesterday with addition of clonidine patch and resumption of atenolol per OG. IV hydralazine available as needed for systolic pressures above 180. OG placed 05/22-low volume gastric output overnight and tolerating medications per OG. Will initiate tube feedings with low glycemic formula at 20 mL per hour overnight. Nutrition consult. Blood sugars remain elevated, off metformin at present and on steroids. Increase basal insulin to 40 units anticipating further increase in blood sugar with initiation of tube feedings. 05/24 Remains ventilator dependent. Steroids decreased. Vancomycin discontinued, continue Levaquin and cefepime for probable aspiration pneumonia and Streptococcus viridans positive blood culture. Continue diuresis, blood pressures elevated-atenolol increased and lisinopril initiated to improve control. Tolerating tube feedings at low-volume, converted pulmonary formula with goal of 80 mL per hour. Platelet count dropping, heparin discontinued and bivalirudin initiated. 05/25 Tolerating spontaneous breathing trial, steroids decreased. Continues to require continuous sedation. Lisinopril increased to 20 mg to improve blood pressure control. Platelet count down to 100K; HIT Ab pending. Fevers overnight without evidence source, leukocytosis/left shift resolved improved. Lines to be cultured. 05/26 FiO2 titrated to 40%; diuresing well-continue same. Spontaneous breathing trial planned for the morning with possible extubation at that time. Cardiac status stable, no further tachyarrhythmias. Trend to improved blood pressures. Cardiac catheterization planned in the future. Remains on bivalirudin. Platelet count 86K today, HIT Ab pending. Tube feedings at goal, blood sugars significantly elevated-NovoLog scheduled every 6 hours and when necessary. Chest x-ray improved, remains on Levaquin and cefepime for probable aspiration pneumonia. Blood cultures drawn yesterday negative thus far. 05/27 Extubated this afternoon, OG discontinued in conjunction with extubation. CPAP initiated for respiratory support. Speech therapy, PT, OT consultations tomorrow. Anticipate significant reduction in fluid volume off sedating medications and tube feedings--> Lasix dose decreased to twice daily administration. Platelet count stabilizing, HIT Ab negative. Intermittent fever, remains on antibiotics for possible aspiration pneumonia. Repeat blood cultures negative. 05/29 Extubated 05/27 Placed on CPAP with home equipment. Baseline 5L Currently tolerating NC, oxygen support as needed to maintain sats and mentation , pulm consulted and following CXR-stable Leukocytosis-likely 2/ steroid effect, PCT negative, no fever x48 hours Cefepime and Levaquin currently. Vanc discontinued 05/24. Likely d/c abx today. Will consult ID for abx recs Failed speech therapy Continue tube feeds and meds via [facility] Monitor fluid status-hold evening dose of lasix Peak troponin 3.09 on 05/21/17 with diffuse T-wave changes; heart cath 05/28-now on ASA and Bivalirudin Monitor platelet count-currently WNL Monitor BP, adjust medications as needed Monitor glucose and continue insulin as ordered Discussed with nursing staff, and infectious disease 05/30 Extubated 05/27, continue Bipap/NC as per pulm Weaning steroids CXR-improving Leukocytosis Cefepime, Levaquin, Vanc discontinued Continue Tamiflu Failed speech therapy, continue to re-eval Continue tube feeds and meds via [facility], feeds at 40ml/hr, goal of 80ml/hr Discontinue lasix, give 1L NS and re-eval fluid status Continue ASA and Bivalirudin per cardiology Trend labs <Francis Govea - Last Filed: 05/31/17 15:52> Exam Vital signs: Temperature 97.0 F 05/31/17 15:25 Pulse Rate 91 05/31/17 15:25 Respiratory Rate 28 H 05/31/17 15:25 Blood Pressure 142/63 H 05/31/17 15:25 Pulse Oximetry 96 05/31/17 15:25 Inpatient Medications: Generic Name Dose Route Start Last Admin Trade Name Freq PRN Reason Stop Dose Admin Acetaminophen 325 - 650 mg 05/17/17 10:08 05/26/17 20:58 Tylenol PO 650 mg Q5H PRN Administration Discomfort Hydrocodone Bitart/Acetaminophen 1 tab 05/17/17 10:14 New Site 7.5/325 PO Q6H PRN Pain Al Hydroxide/Mg Hydroxide 30 ml 05/28/17 09:24 Maalox Plus PO Q3H PRN Indigestion Albuterol/Ipratropium 3 ml 05/17/17 10:11 Duoneb AEROSOL RTQID PRN Albuterol/Ipratropium 3 ml 05/21/17 15:15 05/31/17 11:28 Duoneb AEROSOL 3 ml Q4H KSENIA Administration Amlodipine Besylate 10 mg 05/24/17 13:46 05/31/17 08:42 Norvasc PO 10 mg DAILY KSENIA Administration Aspirin 81 mg 05/28/17 09:24 05/31/17 08:46 Ecotrin PO Not Given DAILY KSENIA Atenolol 25 mg 05/29/17 09:00 05/31/17 08:42 Tenormin PO 25 mg BID KSENIA Administration Atorvastatin Calcium 80 mg 05/28/17 21:00 05/30/17 21:20 Lipitor PO 80 mg HS KSENIA Administration Bisacodyl 10 mg 05/27/17 15:11 Dulcolax RECTALLY DAILY PRN Constipation Bisacodyl 5 - 10 mg 05/28/17 09:24 Dulcolax PO DAILY PRN Constipation Budesonide 0.5 mg 05/17/17 19:00 05/31/17 07:30 Pulmicort Inhalation AEROSOL 0.5 mg RTBID KSENIA Administration Bupropion HCl 150 mg 05/17/17 21:00 05/31/17 08:41 Wellbutrin Sr PO 150 mg BID KSENIA Administration Citalopram Hydrobromide 40 mg 05/18/17 09:00 05/31/17 08:43 Celexa PO 40 mg DAILY KSENIA Administration Clonidine HCl 0.1 mg 05/22/17 09:00 05/29/17 08:01 Catapres-Tts 1 TD 0.1 mg Q7D@0900 KSENIA Administration Clonidine HCl 1 removal 05/29/17 08:59 05/29/17 08:13 Catapres Patch Removal TD 1 removal Q7D KSENIA Administration Gabapentin 300 mg 05/17/17 15:00 05/31/17 15:43 Neurontin PO 300 mg TID KSENIA Administration Glucose 37.5 gm 05/17/17 10:12 Glutose 15 PO PRN PRN Hypoglycemia Guaifenesin 400 mg 05/29/17 12:00 05/31/17 12:55 Robitussin Liq PO 400 mg Q6H KSENIA Administration Hydralazine HCl 10 mg 05/22/17 15:01 05/28/17 06:06 Apresoline IVP 10 mg Q4H PRN Administration Hypertension Insulin Aspart 2 - 14 unit 05/21/17 11:43 05/31/17 12:37 Novolog SQ 4 unit SS PRN Administration Hyperglycemia Protocol Insulin Aspart 12 unit 05/31/17 08:41 05/31/17 15:43 Novolog SQ 12 unit Q6H KSENIA Administration Insulin Glargine 50 unit 05/31/17 08:41 Lantus SQ HS [facility] Lisinopril 20 mg 06/01/17 09:00 Prinivil PO DAILY [facility] Lorazepam 0.5 - 1 mg 05/28/17 09:24 Ativan PO Q4H PRN Anxiety Magnesium Hydroxide 30 ml 05/28/17 09:24 Mom PO DAILY PRN Constipation Methylprednisolone Sodium Succinate 60 mg 05/29/17 21:00 05/31/17 08:43 Solu-Medrol IVP 60 mg Q12HR KSENIA Administration Metoclopramide HCl 5 mg 05/30/17 14:00 05/31/17 15:42 Reglan GT 5 mg Q6H KSENIA Administration Morphine Sulfate 2 - 4 mg 05/28/17 09:24 Morphine Sulfate Inj IVP Q5M PRN Angina Omeprazole 40 mg 05/18/17 06:30 05/31/17 06:16 Prilosec PO 40 mg ACB KSENIA Administration Ondansetron HCl 4 mg 05/28/17 09:24 Zofran IVP Q6H PRN Nausea &/or vomiting Oseltamivir Phosphate 75 mg 05/29/17 21:00 05/31/17 08:44 Tamiflu 06/03/17 09:01 75 mg BID KSENIA Administration Sodium Chloride 10 - 80 ml 05/17/17 05:20 05/30/17 21:35 Iv Flush IVF 10 ml PRN PRN Administration Flushing Sodium Chloride 1 spray 05/19/17 11:42 05/19/17 16:37 Deep Sea Nasal Moisturizing [place] EA NOSTRIL 1 spray PRN PRN Administration Congestion Sodium Chloride 500 ml 05/25/17 21:40 05/25/17 21:52 Normal Saline IV 500 ml PRN PRN Administration Ticagrelor 90 mg 05/28/17 21:01 05/31/17 08:41 Brilinta PO 90 mg Q12H KSENIA Administration Discontinued Medications Generic Name Dose Route Start Last Admin Trade Name Freq PRN Reason Stop Dose Admin Acetaminophen 650 mg 05/21/17 15:10 Tylenol Supp [place] Q5H PRN Pain Acetaminophen 325 - 650 mg 05/28/17 09:24 Tylenol PO Q5H PRN Pain Hydrocodone Bitart/Acetaminophen 1 tab 05/17/17 21:00 05/31/17 08:42 New Site 7.5/325 PO 1 tab BID KSENIA Administration Hydrocodone Bitart/Acetaminophen 1 - 2 tab 05/28/17 09:24 New Site 5/325 PO Q5H PRN Pain Acetazolamide 500 mg 05/19/17 10:51 05/19/17 11:25 Diamox PO 05/19/17 10:52 500 mg O ONE Administration Adenosine 12 mg 05/21/17 09:17 05/21/17 08:50 Adenocard IVP 05/21/17 09:18 12 mg O ONE Administration Adenosine 6 mg 05/21/17 09:18 05/21/17 09:23 Adenocard IVP 05/21/17 09:19 6 mg O ONE Administration Albuterol/Ipratropium 6 ml 05/17/17 05:19 05/17/17 05:33 Duoneb AEROSOL 05/17/17 05:20 6 ml O ONE Administration Albuterol/Ipratropium 3 ml 05/17/17 11:00 05/21/17 18:22 Duoneb AEROSOL Not Given RTQID KSENIA Aspirin 81 mg 05/18/17 09:00 02/15/18 08:26 Asa PO Not Given DAILY KSENIA Aspirin 81 mg 05/22/17 16:00 05/31/17 08:42 Asa GT 81 mg DAILY [facility] Administration Atenolol 25 mg 05/18/17 09:00 05/24/17 08:58 Tenormin PO 25 mg DAILY [facility] Administration Atenolol 50 mg 05/25/17 09:00 05/28/17 12:30 Tenormin PO Not Given DAILY [facility] Atenolol 25 mg 05/24/17 09:40 05/24/17 11:09 Tenormin PO 05/24/17 09:41 25 mg O ONE Administration Atropine Sulfate 0.5 mg 05/28/17 09:24 Atropine IVP Q5M PRN Bradycardia Benzocaine 1 lozenge 05/20/17 18:54 Cepacol Sore Throat Lozenge MM Q2HR PRN Sore throat Bisacodyl 10 mg 05/28/17 09:24 Dulcolax RECTALLY DAILY PRN Constipation Bivalirudin 250 mg 05/24/17 14:15 Angiomax IV NOW [facility] Enoxaparin Sodium 1 each 05/18/17 10:47 05/18/17 12:54 Pharmacy Consult - Lovenox 05/18/17 10:48 1 each O ONE Administration Enoxaparin Sodium 50 mg 05/18/17 11:45 05/20/17 08:37 Lovenox SQ 50 mg DAILY [facility] Administration Enoxaparin Sodium 142 mg 05/27/17 17:00 05/28/17 09:34 Lovenox SQ 142 mg DAILY [facility] Administration Furosemide 20 mg 05/18/17 09:00 05/20/17 08:37 Lasix PO 20 mg DAILY [facility] Administration Furosemide 40 mg 05/21/17 09:37 05/21/17 09:45 Lasix IVP 05/21/17 09:38 40 mg ONCE ONE Administration Furosemide 20 mg 05/23/17 21:00 05/24/17 08:59 Lasix IVP 20 mg Q12HR [facility] Administration Furosemide 20 mg 05/24/17 17:00 05/27/17 09:31 Lasix IVP 20 mg Q8HR [facility] Administration Furosemide 20 mg 05/27/17 21:00 05/29/17 08:09 Lasix IVP 20 mg Q12H [facility] Administration Furosemide 20 mg 05/29/17 09:00 Lasix IVP DAILY KSENIA Guaifenesin 1,200 mg 05/18/17 09:00 05/29/17 08:14 Mucinex La PO Not Given BID KSENIA Heparin Sodium (Beef Lung) 5,000 unit 05/21/17 09:23 05/21/17 10:07 Heparin Bolus IVP 05/21/17 09:24 5,000 unit O ONE Administration Heparin Sodium (Beef Lung) 3,000 unit 05/21/17 17:45 05/21/17 17:53 Heparin Bolus IVP 05/21/17 17:46 3,000 unit O ONE Administration Heparin Sodium (Beef Lung) 3,000 unit 05/22/17 03:37 05/22/17 03:46 Heparin Bolus IVP 05/22/17 03:38 3,000 unit O ONE Administration Heparin Sodium (Porcine) 1 each 05/21/17 09:08 Pharmacy Consult - Heparin MC 05/21/17 09:09 ONE TIME ONE Hydralazine HCl 5 mg 05/22/17 08:47 05/22/17 10:09 Apresoline IVP 5 mg Q6H PRN Administration Hypertension Sodium Chloride 1,000 mls @ 999.9 mls/hr 05/17/17 05:44 05/17/17 11:20 Normal Saline IV 05/17/17 06:43 Infused .Q1H ONE Infusion Sodium Chloride 1,000 mls @ 75 mls/hr 05/17/17 10:08 05/19/17 11:19 Normal Saline IV Infused .[id number] KSENIA Infusion Ceftriaxone Sodium 2 gm/ 100 mls @ 200 mls/hr 05/18/17 01:15 05/18/17 01:50 Sodium Chloride IV Infused Q24H [facility]ENIA Infusion Ceftriaxone Sodium 2 gm/ 50 mls @ 100 mls/hr 05/18/17 21:00 05/20/17 21:55 Sodium Chloride IV Infused Q24H KSENIA Infusion Heparin Sodium (Porcine) 20,000 unit in 500 mls @ 44 mls/hr 05/21/17 09:30 13:17 Heparin Drip IV Infused .[id number] KSENIA Titration Protocol Dexmedetomidine HCl 200 mcg/ 52 mls @ 6.87 mls/hr 05/21/17 09:52 05/21/17 20: 00 Sodium Chloride IV 02/13/18 20:29 0 mcg/kg/hr .Q7H35M PRN 0 mls/hr Protocol Titration 0.2 MCG/KG/HR Propofol 1,000 mg in 100 mls @ 3.969 mls/hr 05/21/17 10:39 05/21/17 14:28 Diprivan IV 0 mcg/kg/min .Q24H PRN 0 mls/hr Protocol Infusion 5 MCG/KG/MIN Fentanyl 1,000 mcg/ Sodium 100 mls @ 0 mls/hr 05/21/17 13:02 05/27/17 14:45 Chloride IV Infused .Q0M PRN Titration Protocol Per Protocol Sodium Chloride 250 mls @ 999.9 mls/hr 05/21/17 13:15 05/21/17 14:28 Normal Saline IV 05/21/17 13:29 Infused .Q15M KSENIA Infusion Cefepime HCl 1 gm/ Sodium 50 mls @ 100 mls/hr 05/21/17 15:30 05/29/17 10:46 Chloride IV Infused Q6H [facility] Infusion Levofloxacin/Dextrose 750 mg in 150 mls @ 100 mls/hr 05/21/17 16:00 05/28/17 17:15 Levaquin Premix IV Infused Q24H [facility] Infusion Vancomycin HCl 1,500 mg/ 500 mls @ 250 mls/hr 05/21/17 18:00 05/24/17 12:15 Sodium Chloride IV Infused Q8H [facility] Infusion Dexmedetomidine HCl 1,000 mcg/ 260 mls @ 6.87 mls/hr 05/21/17 20:30 05/27/17 14:45 Sodium Chloride IV 05/27/17 14:45 Infused .Q24H PRN Titration Protocol 0.2 MCG/KG/HR Potassium Chloride 10 meq in 100 mls @ 100 mls/hr 05/23/17 09:45 05/23/17 17: 34 Potassium Chloride Premix IV 05/23/17 13:44 Infused Q1H [facility] Infusion Heparin Sodium (Porcine) 20,000 unit in 500 mls @ 45 mls/hr 05/23/17 16:00 06:16 Heparin Drip IV Not Given .Q11H7M KSENIA Protocol Potassium Chloride 10 meq in 100 mls @ 100 mls/hr 05/24/17 09:45 05/24/17 15: 56 Potassium Chloride Premix IV 05/24/17 13:44 Not Given Q1H KSENIA Potassium Chloride 10 meq/ 105 mls @ 105 mls/hr 05/24/17 11:45 05/24/17 17:00 Sodium Chloride IV 05/24/17 15:44 Infused Q1H [facility] Infusion Bivalirudin 250 mg/ Sodium 500 mls @ 43.2 mls/hr 05/24/17 15:15 05/27/17 17: 34 Chloride IV Not Given .[id number] KSENIA Sodium Chloride 1,000 mls @ 75 mls/hr 05/28/17 07:45 05/28/17 14:00 Normal Saline IV Infused .[id number] [facility] Infusion Sodium Chloride 1,000 mls @ 500 mls/hr 05/30/17 10:14 05/30/17 10:41 Normal Saline IV 05/30/17 12:13 500 mls/hr .Q2H ONE Administration Sodium Chloride 1,000 mls @ 60 mls/hr 05/30/17 17:00 05/31/17 06:00 Normal Saline IV 05/31/17 09:39 60 mls/hr .[id number] KSEN[facility] Infusion Insulin Aspart 1 - 5 unit 05/17/17 10:12 05/18/17 06:06 Novolog SQ 2 unit SS PRN Administration Hyperglycemia Protocol Insulin Aspart 2 - 8 unit 05/18/17 08:22 05/21/17 07:30 Novolog SQ 3 unit SS PRN Administration Hyperglycemia Protocol Insulin Aspart 15 unit 05/20/17 10:32 05/20/17 10:36 Novolog SQ 05/20/17 10:33 15 unit ONE TIME ONE Administration Insulin Aspart 10 unit 05/26/17 12:00 05/26/17 13:54 Novolog SQ Not Given Q6H KSENIA Insulin Aspart 10 unit 05/26/17 15:00 05/27/17 21:06 Novolog SQ Not Given 0300,0900,1500,2100 KSENIA Insulin Aspart 10 unit 05/28/17 15:00 Novolog SQ Q6HR KSENIA Insulin Aspart 10 unit 05/28/17 18:00 05/31/17 06:11 Novolog SQ 10 unit Q6H KSENIA Administration Insulin Glargine 10 unit 05/21/17 21:00 05/21/17 20:14 Lantus SQ 10 unit HS KSENIA Administration Insulin Glargine 20 unit 05/22/17 21:00 05/22/17 20:14 Lantus SQ 20 unit HS KSENIA Administration Insulin Glargine 40 unit 05/23/17 21:00 05/30/17 21:34 Lantus SQ 40 unit HS KSENIA Administration Labetalol HCl 10 mg 05/21/17 20:40 05/22/17 06:05 Trandate IVP 10 mg Q4H PRN Administration INCREASED blood pressure Lisinopril 10 mg 05/24/17 16:15 05/31/17 08:42 Prinivil PO 10 mg DAILY KSENIA Administration Lisinopril 10 mg 05/31/17 15:18 05/31/17 15:43 Prinivil PO 05/31/17 15:19 10 mg O ONE Administration Lorazepam 1 mg 05/17/17 06:16 05/17/17 06:56 Ativan PO 05/17/17 06:17 1 mg O ONE Administration Lorazepam 0.5 mg 05/17/17 10:13 05/24/17 15:55 Ativan Inj IVP 0.5 mg Q6H PRN Administration Lorazepam 1 mg 05/24/17 19:46 05/31/17 01:43 Ativan Inj IVP 1 mg Q2H PRN Administration Agitation/Air hunger/Pain Lorazepam 0.5 - 1 mg 05/28/17 09:24 Ativan Inj IVP Q4H PRN Anxiety Magnesium Hydroxide 30 ml 05/26/17 12:41 05/26/17 13:53 Mom GT 05/26/17 12:42 30 ml O ONE Administration Menthol 1 lozenge 05/18/17 08:19 Ricola Sf MM PRN PRN Cough Metformin HCl 500 mg 05/17/17 17:30 05/18/17 10:00 Glucophage PO Not Given BIDWM KSENIA Metformin HCl 500 mg 05/19/17 09:00 05/21/17 10:52 Glucophage PO Not Given BIDWM KSENIA Methylprednisolone Sodium Succinate 125 mg 05/17/17 06:26 05/17/17 06:53 Solu-Medrol IM 05/17/17 06:27 125 mg O ONE Administration Methylprednisolone Sodium Succinate 125 mg 05/17/17 15:00 05/20/17 08:37 Solu-Medrol IVP 125 mg Q6HR KSENIA Administration Methylprednisolone Sodium Succinate 80 mg 05/20/17 15:00 05/24/17 08:57 Solu-Medrol IVP 80 mg Q6HR KS[facility]IA Administration Methylprednisolone Sodium Succinate 80 mg 05/24/17 17:00 05/26/17 08:23 Solu-Medrol IVP 80 mg Q8HR KSENIA Administration Methylprednisolone Sodium Succinate 80 mg 05/26/17 21:00 05/29/17 08:15 Solu-Medrol IVP 80 mg Q12HR KSENIA Administration Metoclopramide HCl 5 mg 05/23/17 17:30 05/30/17 10:42 Reglan GT 5 mg Q6H KSENIA Administration Metoclopramide HCl 5 - 10 mg 05/28/17 09:24 Reglan IVP Q6H PRN Nausea &/or vomiting Metoprolol Tartrate 15 mg 05/21/17 09:18 05/21/17 09:05 Lopressor IVP 05/21/17 09:19 15 mg ONCE ONE Administration Metoprolol Tartrate 5 mg 05/28/17 10:01 05/28/17 10:00 Lopressor IVP 05/28/17 10:02 5 mg ONCE ONE Administration Morphine Sulfate 1 - 2 mg 05/17/17 10:08 05/24/17 17:56 Morphine Sulfate Inj IVP 2 mg Q2H PRN Administration Pain Morphine Sulfate 2 - 4 mg 05/28/17 09:24 05/28/17 10:17 Morphine Sulfate Inj IVP 05/29/17 09:23 4 mg Q2H PRN Administration Pain Nitroglycerin 0.4 mg 05/17/17 10:14 05/21/17 08:35 Nitrostat SL 0.4 mg Q5MIN3 PRN Administration CP Nitroglycerin 0.4 mg 05/28/17 09:24 Nitrostat SL Q5M PRN Angina --Pom--(Itraconazole 200 mg 05/17/17 21:00 05/29/17 09:39 [Itraconazole] 200 PO Not Given Mg) BID KSENIA Ondansetron HCl 4 mg 05/17/17 10:08 05/19/17 02:45 Zofran IVP 4 mg Q6H PRN Administration Nausea &/or vomiting Pantoprazole Sodium 40 mg 05/22/17 09:00 05/31/17 08:44 Protonix Iv IVP 40 mg DAILY KSENIA Administration Pharmacy Consult 1 each 05/17/17 10:32 Pharmacy Consult - Fall Risk XX 05/17/17 10:33 ONE TIME ONE Pharmacy Consult 1 each 05/27/17 10:17 Pharmacy Consult - Fall Risk XX 05/27/17 10:18 ONE TIME ONE Potassium Chloride 40 meq 05/24/17 18:10 05/26/17 06:13 Kcl Oral Liq 20 Meq/15 Ml PO Not Given BIDWM KSENIA Potassium Chloride 40 meq 05/25/17 13:00 05/26/17 08:22 Kcl Oral Liq 20 Meq/15 Ml PO 40 meq QID KSENIA Administration Potassium Chloride 40 meq 05/26/17 12:00 05/27/17 12:04 Kcl Oral Liq 20 Meq/15 Ml PO 40 meq TIDWM KSENIA Administration Potassium Chloride 40 meq 05/27/17 17:30 05/29/17 07:59 Kcl Oral Liq 20 Meq/15 Ml PO 40 meq BIDWM KSENIA Administration Potassium Chloride 40 meq 05/29/17 09:00 05/30/17 08:42 Kcl Oral Liq 20 Meq/15 Ml PO 40 meq DAILY KSENIA Administration Promethazine HCl 12.5 - 25 mg 05/28/17 09:24 Phenergan Inj IVP Q6HR PRN Nausea &/or vomiting Simvastatin 20 mg 05/17/17 21:00 05/27/17 20:36 Zocor PO Not Given HS KSENIA Vancomycin HCl 1 each 05/21/17 15:19 05/21/17 15:53 Pharmacy Consult - Vancomycin MC 05/21/17 15:20 1 each O ONE Administration - Urinary Catheter Management Urethral Cath placed during this visit: no Results 05/31/17 04:44 05/31/17 04:44 CBC 05/31/17 Range/Units 04:44 WBC 13.5 H (4.5-11.0) T/MM3 RBC 3.90 L (4.50-5.90) M/MM3 Hgb 11.6 L (13.5-17.5) GM/DL Hct 38.0 L (41-53) % Plt Count 87 L (130-400) T/MM3 Neut # (Auto) Not performed Lymph # (Auto) Not performed [place] # (Auto) Not performed Eos # (Auto) Not performed Baso # (Auto) Not performed Comprehensive Metabolic Panel 05/31/17 Range/Units 04:44 Sodium 143 (134-144) MEQ/L Potassium 4.7 (3.6-5) MEQ/L Chloride 107 (98-107) MEQ/L Carbon Dioxide 31 H (22-30) MEQ/L BUN 48.0 H (9-20) MG/DL Creatinine 0.6 L (0.8-1.5) MG/DL Glucose 292 H (75-110) MG/DL Calcium 8.0 L (8.4-10.2) MG/DL Albumin 2.5 L (3.5-5.0) G/DL Intake and Output 05/31/17 05/31/17 05/31/17 06:59 14:59 22:59 Intake Total 1490 / 1490 790 / 790 Output Total 595 / 595 525 / 525 Balance 895 / 895 265 / 265 Intake: IV 480 / 480 Ns 1,000 ml @ 60 mls/hr IV . 480 / 480 [id number] [facility] Rx#:[id number] Oral 60 / 60 Tube Feeding 480 / 480 420 / 420 Oral 480 / 480 420 / 420 Intake, Gastric Tube Irrigant 530 / 530 310 / 310 Amount Oral 530 / 530 310 / 310 Output: Urine Amount (Catheter) 595 / 595 525 / 525 Other: Urine Appearance Clear Clear Urine Color Light [place] Yellow Weight 133.3 kg Patient Weight 06/01/17 06:59 Weight 133.3 kg Assessment and Plan - Assessment and Plan (1) Community acquired pneumonia Current visit: No Status: Acute (2) Acute and chronic respiratory failure with hypercapnia Current visit: Yes Status: Acute (3) Chest pain Current visit: Yes Status: Acute (4) Atherosclerotic heart disease of [place] coronary artery without angina pectoris Current visit: Yes Status: Chronic (5) Essential (primary) hypertension Current visit: Yes Status: Chronic (6) Type 2 diabetes mellitus without complications Current visit: Yes Status: Chronic (7) Obesity (BMI 30-39.9) Current visit: Yes Status: Chronic (8) ANGELLA (obstructive sleep apnea) Current visit: Yes Status: Chronic (9) NSTEMI (non-ST elevated myocardial infarction) Current visit: Yes Status: Acute - Attestation Attestation Narrative: 05/31/17 15:52 Recommendation After examining the patient I agree with the above assessment. I am involved in the formulation of the patient's plan of care. Hospital Course Summary Disclaimer: The visit summary below is not to be considered part of the above Progress Note.
--- NOTE | 2017-05-30 15:32 | Pulmonology Progress Note ---
Subjective Principal diagnosis: SOB, respiratory failure Interval history: Patient is awake. somewhat confused. SpO2 90% on RA, placed on 3 lpm with O2 sat 95% No respiratory complaints using bipap at night Exam Vital signs: Temperature 97.9 F 05/29/17 23:12 Pulse Rate 83 05/30/17 12:00 Respiratory Rate 25 H 05/30/17 10:52 Blood Pressure 90/66 05/30/17 08:00 Pulse Oximetry 94 05/30/17 10:52 Inpatient Medications: Generic Name Dose Route Start Last Admin Trade Name Freq PRN Reason Stop Dose Admin Acetaminophen 325 - 650 mg 05/17/17 10:08 05/26/17 20:58 Tylenol PO 650 mg Q5H PRN Administration Discomfort Acetaminophen 650 mg 05/21/17 15:10 Tylenol Supp AL Q5H PRN Pain Acetaminophen 325 - 650 mg 05/28/17 09:24 Tylenol PO Q5H PRN Pain Hydrocodone Bitart/Acetaminophen 1 tab 05/17/17 21:00 05/30/17 08:36 [place] 7.5/325 PO 1 tab BID KSENIA Administration Hydrocodone Bitart/Acetaminophen 1 tab 05/17/17 10:14 [place] 7.5/325 PO Q6H PRN Pain Hydrocodone Bitart/Acetaminophen 1 - 2 tab 05/28/17 09:24 [place] 5/325 PO Q5H PRN Pain Al Hydroxide/Mg Hydroxide 30 ml 05/28/17 09:24 Maalox Plus PO Q3H PRN Indigestion Albuterol/Ipratropium 3 ml 05/17/17 10:11 Duoneb AEROSOL RTQID PRN Albuterol/Ipratropium 3 ml 05/21/17 15:15 05/30/17 10:51 Duoneb AEROSOL 3 ml Q4H KSENIA Administration Amlodipine Besylate 10 mg 05/24/17 13:46 05/30/17 08:38 Norvasc PO 10 mg DAILY KSENIA Administration Aspirin 81 mg 05/22/17 16:00 05/30/17 08:36 Asa GT 81 mg DAILY KSENIA Administration Aspirin 81 mg 05/28/17 09:24 05/30/17 10:42 Ecotrin PO Not Given DAILY KSENIA Atenolol 25 mg 05/29/17 09:00 05/30/17 08:37 Tenormin PO 25 mg BID KSENIA Administration Atorvastatin Calcium 80 mg 05/28/17 21:00 05/29/17 20:01 Lipitor PO 80 mg HS KSENIA Administration Atropine Sulfate 0.5 mg 05/28/17 09:24 Atropine IVP Q5M PRN Bradycardia Benzocaine 1 lozenge 05/20/17 18:54 Cepacol Sore Throat Lozenge MM Q2HR PRN Sore throat Bisacodyl 10 mg 05/27/17 15:11 Dulcolax RECTALLY DAILY PRN Constipation Bisacodyl 5 - 10 mg 05/28/17 09:24 Dulcolax PO DAILY PRN Constipation Bisacodyl 10 mg 05/28/17 09:24 Dulcolax RECTALLY DAILY PRN Constipation Budesonide 0.5 mg 05/17/17 19:00 05/30/17 07:13 Pulmicort Inhalation AEROSOL 0.5 mg RTBID KSENIA Administration Bupropion HCl 150 mg 05/17/17 21:00 05/30/17 08:36 Wellbutrin Sr PO 150 mg BID [facility] Administration Citalopram Hydrobromide 40 mg 05/18/17 09:00 05/30/17 08:37 Celexa PO 40 mg DAILY [facility] Administration Clonidine HCl 0.1 mg 05/22/17 09:00 05/29/17 08:01 Catapres-Tts 1 TD 0.1 mg Q7D@0900 KSENIA Administration Clonidine HCl 1 removal 05/29/17 08:59 05/29/17 08:13 Catapres Patch Removal TD 1 removal Q7D KSENIA Administration Furosemide 20 mg 05/29/17 09:00 Lasix IVP DAILY [facility] Gabapentin 300 mg 05/17/17 15:00 05/30/17 08:36 Neurontin PO 300 mg TID KSENIA Administration Glucose 37.5 gm 05/17/17 10:12 Glutose 15 PO PRN PRN Hypoglycemia Guaifenesin 400 mg 05/29/17 12:00 05/30/17 12:51 Robitussin Liq PO 400 mg Q6H KSENIA Administration Hydralazine HCl 10 mg 05/22/17 15:01 05/28/17 06:06 Apresoline IVP 10 mg Q4H PRN Administration Hypertension Insulin Aspart 2 - 14 unit 05/21/17 11:43 05/30/17 11:36 Novolog SQ 7 unit SS PRN Administration Hyperglycemia Protocol Insulin Aspart 10 unit 05/28/17 18:00 05/30/17 12:51 Novolog SQ 10 unit Q6H KSENIA Administration Insulin Glargine 40 unit 05/23/17 21:00 05/29/17 20:05 Lantus SQ 40 unit HS KSENIA Administration Lisinopril 10 mg 05/24/17 16:15 05/30/17 08:36 Prinivil PO 10 mg DAILY KSENIA Administration Lorazepam 1 mg 05/24/17 19:46 05/26/17 05:02 Ativan Inj IVP 1 mg Q2H PRN Administration Agitation/Air hunger/Pain Lorazepam 0.5 - 1 mg 05/28/17 09:24 Ativan PO Q4H PRN Anxiety Lorazepam 0.5 - 1 mg 05/28/17 09:24 Ativan Inj IVP Q4H PRN Anxiety Magnesium Hydroxide 30 ml 05/28/17 09:24 Mom PO DAILY PRN Constipation Menthol 1 lozenge 05/18/17 08:19 Ricola Sf MM PRN PRN Cough Methylprednisolone Sodium Succinate 60 mg 05/29/17 21:00 05/30/17 08:38 Solu-Medrol IVP 60 mg Q12HR [facility] Administration Metoclopramide HCl 5 - 10 mg 05/28/17 09:24 Reglan IVP Q6H PRN Nausea &/or vomiting Metoclopramide HCl 5 mg 05/30/17 14:00 Reglan GT Q6H [facility] Morphine Sulfate 2 - 4 mg 05/28/17 09:24 Morphine Sulfate Inj IVP Q5M PRN Angina Nitroglycerin 0.4 mg 05/17/17 10:14 05/21/17 08:35 Nitrostat SL 0.4 mg Q5MIN3 PRN Administration CP Nitroglycerin 0.4 mg 05/28/17 09:24 Nitrostat SL Q5M PRN Angina Omeprazole 40 mg 05/18/17 06:30 05/30/17 05:45 Prilosec PO Not Given ACB [facility] Ondansetron HCl 4 mg 05/28/17 09:24 Zofran IVP Q6H PRN Nausea &/or vomiting Oseltamivir Phosphate 75 mg 05/29/17 21:00 05/30/17 08:42 Tamiflu 06/03/17 09:01 75 mg BID KSENIA Administration Pantoprazole Sodium 40 mg 05/22/17 09:00 05/30/17 08:40 Protonix Iv IVP 40 mg DAILY KSENIA Administration Promethazine HCl 12.5 - 25 mg 05/28/17 09:24 Phenergan Inj IVP Q6HR PRN Nausea &/or vomiting Sodium Chloride 10 - 80 ml 05/17/17 05:20 05/27/17 01:31 Iv Flush IVF 50 ml PRN PRN Administration Flushing Sodium Chloride 1 spray 05/19/17 11:42 05/19/17 16:37 [place] Nasal Moisturizing [place] EA NOSTRIL 1 spray PRN PRN Administration Congestion Sodium Chloride 500 ml 05/25/17 21:40 05/25/17 21:52 Normal Saline IV 500 ml PRN PRN Administration Ticagrelor 90 mg 05/28/17 21:01 05/30/17 08:36 Brilinta PO 90 mg Q12H KSENIA Administration Discontinued Medications Generic Name Dose Route Start Last Admin Trade Name Freq PRN Reason Stop Dose Admin Acetazolamide 500 mg 05/19/17 10:51 05/19/17 11:25 Diamox PO 05/19/17 10:52 500 mg O ONE Administration Adenosine 12 mg 05/21/17 09:17 05/21/17 08:50 Adenocard IVP 05/21/17 09:18 12 mg O ONE Administration Adenosine 6 mg 05/21/17 09:18 05/21/17 09:23 Adenocard IVP 05/21/17 09:19 6 mg O ONE Administration Albuterol/Ipratropium 6 ml 05/17/17 05:19 05/17/17 05:33 Duoneb AEROSOL 05/17/17 05:20 6 ml O ONE Administration Albuterol/Ipratropium 3 ml 05/17/17 11:00 05/21/17 18:22 Duoneb AEROSOL Not Given RTQID KSENIA Aspirin 81 mg 05/18/17 09:00 05/23/17 08:26 Asa PO Not Given DAILY KSENIA Atenolol 25 mg 05/18/17 09:00 05/24/17 08:58 Tenormin PO 25 mg DAILY KSENIA Administration Atenolol 50 mg 05/25/17 09:00 05/28/17 12:30 Tenormin PO Not Given DAILY KSENIA Atenolol 25 mg 05/24/17 09:40 05/24/17 11:09 Tenormin PO 05/24/17 09:41 25 mg O ONE Administration Bivalirudin 250 mg 05/24/17 14:15 Angiomax IV NOW KSENIA Enoxaparin Sodium 1 each 05/18/17 10:47 05/18/17 12:54 Pharmacy Consult - Lovenox MC 05/18/17 10:48 1 each O ONE Administration Enoxaparin Sodium 50 mg 05/18/17 11:45 05/20/17 08:37 Lovenox SQ 50 mg DAILY KSENIA Administration Enoxaparin Sodium 142 mg 05/27/17 17:00 05/28/17 09:34 Lovenox SQ 142 mg DAILY KSENIA Administration Furosemide 20 mg 05/18/17 09:00 05/20/17 08:37 Lasix PO 20 mg DAILY KSENIA Administration Furosemide 40 mg 05/21/17 09:37 05/21/17 09:45 Lasix IVP 05/21/17 09:38 40 mg ONCE ONE Administration Furosemide 20 mg 05/23/17 21:00 05/24/17 08:59 Lasix IVP 20 mg Q12HR KSENIA Administration Furosemide 20 mg 05/24/17 17:00 05/27/17 09:31 Lasix IVP 20 mg Q8HR KSENIA Administration Furosemide 20 mg 05/27/17 21:00 05/29/17 08:09 Lasix IVP 20 mg Q12H KSENIA Administration Guaifenesin 1,200 mg 05/18/17 09:00 05/29/17 08:14 Mucinex La PO Not Given BID KSENIA Heparin Sodium (Beef Lung) 5,000 unit 05/21/17 09:23 05/21/17 10:07 Heparin Bolus IVP 05/21/17 09:24 5,000 unit O ONE Administration Heparin Sodium (Beef Lung) 3,000 unit 05/21/17 17:45 05/21/17 17:53 Heparin Bolus IVP 05/21/17 17:46 3,000 unit O ONE Administration Heparin Sodium (Beef Lung) 3,000 unit 05/22/17 03:37 05/22/17 03:46 Heparin Bolus IVP 05/22/17 03:38 3,000 unit O ONE Administration Heparin Sodium (Porcine) 1 each 05/21/17 09:08 Pharmacy Consult - Heparin MC 05/21/17 09:09 ONE TIME ONE Hydralazine HCl 5 mg 05/22/17 08:47 05/22/17 10:09 Apresoline IVP 5 mg Q6H PRN Administration Hypertension Sodium Chloride 1,000 mls @ 999.9 mls/hr 05/17/17 05:44 05/17/17 11:20 Normal Saline IV 05/17/17 06:43 Infused .Q1H ONE Infusion Sodium Chloride 1,000 mls @ 75 mls/hr 05/17/17 10:08 05/19/17 11:19 Normal Saline IV Infused .[id number] KSENIA Infusion Ceftriaxone Sodium 2 gm/ 100 mls @ 200 mls/hr 05/18/17 01:15 05/18/17 01:50 Sodium Chloride IV Infused Q24H KSENIA Infusion Ceftriaxone Sodium 2 gm/ 50 mls @ 100 mls/hr 05/18/17 21:00 05/20/17 21:55 Sodium Chloride IV Infused Q24H KSENIA Infusion Heparin Sodium (Porcine) 20,000 unit in 500 mls @ 44 mls/hr 05/21/17 09:30 13:17 Heparin Drip IV Infused .[id number] KSENIA Titration Protocol Dexmedetomidine HCl 200 mcg/ 52 mls @ 6.87 mls/hr 05/21/17 09:52 05/21/17 20: 00 Sodium Chloride IV 05/21/17 20:29 0 mcg/kg/hr .Q7H35M PRN 0 mls/hr Protocol Titration 0.2 MCG/KG/HR Propofol 1,000 mg in 100 mls @ 3.969 mls/hr 05/21/17 10:39 05/21/17 14:28 Diprivan IV 0 mcg/kg/min .Q24H PRN 0 mls/hr Protocol Infusion 5 MCG/KG/MIN Fentanyl 1,000 mcg/ Sodium 100 mls @ 0 mls/hr 05/21/17 13:02 05/27/17 14:45 Chloride IV Infused .Q0M PRN Titration Protocol Per Protocol Sodium Chloride 250 mls @ 999.9 mls/hr 05/21/17 13:15 05/21/17 14:28 Normal Saline IV 05/21/17 13:29 Infused .Q15M KSENIA Infusion Cefepime HCl 1 gm/ Sodium 50 mls @ 100 mls/hr 05/21/17 15:30 05/29/17 10:46 Chloride IV Infused Q6H KSENIA Infusion Levofloxacin/Dextrose 750 mg in 150 mls @ 100 mls/hr 05/21/17 16:00 05/28/17 17:15 Levaquin Premix IV Infused Q24H KSENIA Infusion Vancomycin HCl 1,500 mg/ 500 mls @ 250 mls/hr 05/21/17 18:00 05/24/17 12:15 Sodium Chloride IV Infused Q8H KSENIA Infusion Dexmedetomidine HCl 1,000 mcg/ 260 mls @ 6.87 mls/hr 05/21/17 20:30 05/27/17 14:45 Sodium Chloride IV 05/27/17 14:45 Infused .Q24H PRN Titration Protocol 0.2 MCG/KG/HR Potassium Chloride 10 meq in 100 mls @ 100 mls/hr 05/23/17 09:45 05/23/17 17: 34 Potassium Chloride Premix IV 05/23/17 13:44 Infused Q1H KSENIA Infusion Heparin Sodium (Porcine) 20,000 unit in 500 mls @ 45 mls/hr 05/23/17 16:00 06:16 Heparin Drip IV Not Given .Q11H7M [facility] Protocol Potassium Chloride 10 meq in 100 mls @ 100 mls/hr 05/24/17 09:45 05/24/17 15: 56 Potassium Chloride Premix IV 05/24/17 13:44 Not Given Q1H KSENIA Potassium Chloride 10 meq/ 105 mls @ 105 mls/hr 05/24/17 11:45 05/24/17 17:00 Sodium Chloride IV 05/24/17 15:44 Infused Q1H KSENIA Infusion Bivalirudin 250 mg/ Sodium 500 mls @ 43.2 mls/hr 05/24/17 15:15 05/27/17 17: 34 Chloride IV Not Given .[id number] KSENIA Sodium Chloride 1,000 mls @ 75 mls/hr 05/28/17 07:45 05/28/17 14:00 Normal Saline IV Infused .[id number] KSENIA Infusion Sodium Chloride 1,000 mls @ 500 mls/hr 05/30/17 10:14 05/30/17 10:41 Normal Saline IV 05/30/17 12:13 500 mls/hr .Q2H ONE Administration Insulin Aspart 1 - 5 unit 05/17/17 10:12 05/18/17 06:06 Novolog SQ 2 unit SS PRN Administration Hyperglycemia Protocol Insulin Aspart 2 - 8 unit 05/18/17 08:22 05/21/17 07:30 Novolog SQ 3 unit SS PRN Administration Hyperglycemia Protocol Insulin Aspart 15 unit 05/20/17 10:32 05/20/17 10:36 Novolog SQ 05/20/17 10:33 15 unit ONE TIME ONE Administration Insulin Aspart 10 unit 05/26/17 12:00 05/26/17 13:54 Novolog SQ Not Given Q6H KSENIA Insulin Aspart 10 unit 05/26/17 15:00 05/27/17 21:06 Novolog SQ Not Given 0300,0900,1500,2100 KSENIA Insulin Aspart 10 unit 05/28/17 15:00 Novolog SQ Q6HR KSENIA Insulin Glargine 10 unit 05/21/17 21:00 05/21/17 20:14 Lantus SQ 10 unit HS KSENIA Administration Insulin Glargine 20 unit 05/22/17 21:00 05/22/17 20:14 Lantus SQ 20 unit HS KSENIA Administration Labetalol HCl 10 mg 05/21/17 20:40 05/22/17 06:05 Trandate IVP 10 mg Q4H PRN Administration INCREASED blood pressure Lorazepam 1 mg 05/17/17 06:16 05/17/17 06:56 Ativan PO 05/17/17 06:17 1 mg O ONE Administration Lorazepam 0.5 mg 05/17/17 10:13 05/24/17 15:55 Ativan Inj IVP 0.5 mg Q6H PRN Administration Magnesium Hydroxide 30 ml 05/26/17 12:41 05/26/17 13:53 Mom GT 05/26/17 12:42 30 ml O ONE Administration Metformin HCl 500 mg 05/17/17 17:30 05/18/17 10:00 Glucophage PO Not Given BIDWM KSENIA Metformin HCl 500 mg 05/19/17 09:00 05/21/17 10:52 Glucophage PO Not Given BIDWM [facility] Methylprednisolone Sodium Succinate 125 mg 05/17/17 06:26 05/17/17 06:53 Solu-Medrol IM 05/17/17 06:27 125 mg O ONE Administration Methylprednisolone Sodium Succinate 125 mg 05/17/17 15:00 05/20/17 08:37 Solu-Medrol IVP 125 mg Q6HR KSENIA Administration Methylprednisolone Sodium Succinate 80 mg 05/20/17 15:00 05/24/17 08:57 Solu-Medrol IVP 80 mg Q6HR KSENIA Administration Methylprednisolone Sodium Succinate 80 mg 05/24/17 17:00 05/26/17 08:23 Solu-Medrol IVP 80 mg Q8HR KSENIA Administration Methylprednisolone Sodium Succinate 80 mg 05/26/17 21:00 05/29/17 08:15 Solu-Medrol IVP 80 mg Q12HR KSENIA Administration Metoclopramide HCl 5 mg 05/23/17 17:30 05/30/17 10:42 Reglan GT 5 mg Q6H KSENIA Administration Metoprolol Tartrate 15 mg 05/21/17 09:18 05/21/17 09:05 Lopressor IVP 05/21/17 09:19 15 mg ONCE ONE Administration Metoprolol Tartrate 5 mg 05/28/17 10:01 05/28/17 10:00 Lopressor IVP 05/28/17 10:02 5 mg ONCE ONE Administration Morphine Sulfate 1 - 2 mg 05/17/17 10:08 05/24/17 17:56 Morphine Sulfate Inj IVP 2 mg Q2H PRN Administration Pain Morphine Sulfate 2 - 4 mg 05/28/17 09:24 05/28/17 10:17 Morphine Sulfate Inj IVP 05/29/17 09:23 4 mg Q2H PRN Administration Pain --Pom--(Itraconazole 200 mg 05/17/17 21:00 05/29/17 09:39 [Itraconazole] 200 PO Not Given Mg) BID KSENIA Ondansetron HCl 4 mg 05/17/17 10:08 05/19/17 02:45 Zofran IVP 4 mg Q6H PRN Administration Nausea &/or vomiting Pharmacy Consult 1 each 05/17/17 10:32 Pharmacy Consult - Fall Risk XX 05/17/17 10:33 ONE TIME ONE Pharmacy Consult 1 each 05/27/17 10:17 Pharmacy Consult - Fall Risk XX 05/27/17 10:18 ONE TIME ONE Potassium Chloride 40 meq 05/24/17 18:10 05/26/17 06:13 Kcl Oral Liq 20 Meq/15 Ml PO Not Given BIDWM KSENIA Potassium Chloride 40 meq 05/25/17 13:00 05/26/17 08:22 Kcl Oral Liq 20 Meq/15 Ml PO 40 meq QID KSENIA Administration Potassium Chloride 40 meq 05/26/17 12:00 05/27/17 12:04 Kcl Oral Liq 20 Meq/15 Ml PO 40 meq TIDWM KSENIA Administration Potassium Chloride 40 meq 05/27/17 17:30 05/29/17 07:59 Kcl Oral Liq 20 Meq/15 Ml PO 40 meq BIDWM KSENIA Administration Potassium Chloride 40 meq 05/29/17 09:00 05/30/17 08:42 Kcl Oral Liq 20 Meq/15 Ml PO 40 meq DAILY KSENIA Administration Simvastatin 20 mg 05/17/17 21:00 05/27/17 20:36 Zocor PO Not Given HS KSENIA Vancomycin HCl 1 each 05/21/17 15:19 05/21/17 15:53 Pharmacy Consult - Vancomycin MC 05/21/17 15:20 1 each O ONE Administration - Constitutional no acute distress - Routine HEENT Exam Head: Present: normocephalic, atraumatic - Routine Neck Exam Present: supple - Routine Chest/Breast/Axilla Exam Chest wall: Present: tenderness - Routine Respiratory Exam Present: accessory muscle use - Routine Cardiovascular Exam Present: RRR - Routine Abdominal Exam Present: soft. Absent: guarding - Routine Extremities Exam Absent: cyanosis, clubbing - Routine Skin Exam Absent: rash - Urinary Catheter Management Urethral Cath placed during this visit: yes Insertion date: 05/21/17 Results - Laboratory Findings Laboratory: Laboratory Results - last 48 hr 05/28/17 05/28/17 05/28/17 16:45 17:58 23:28 WBC RBC Hgb Hct MCV MCH MCHC RDW Std Deviation Plt Count MPV Immature Gran % (Auto) Neut % (Auto) Lymph % (Auto) Cloud % (Auto) Eos % (Auto) Baso % (Auto) Neut # (Auto) Lymph # (Auto) Cloud # (Auto) Eos # (Auto) Baso # (Auto) Abs Immat Gran (auto) Neutrophils % (Manual) Band Neutrophils % Lymphocytes % (Manual) Reactive Lymphs % Monocytes % (Manual) Neutrophils # (Manual) Band Neutrophils # Lymphocytes # (Manual) Abs React Lymphs (Man) Monocytes # (Manual) RBC Morph Comment ABG pH 7.477 H ABG pCO2 45 ABG pO2 70 L ABG HCO3 33.0 H ABG Total CO2 35.0 H ABG O2 Saturation 95.0 ABG Base Excess 9.0 H O2 Delivery Method Bipap FiO2 (liters per min) 8 Turbidity Sodium Potassium Chloride Carbon Dioxide Anion Gap BUN Creatinine GFR Calculation BUN/Creatinine Ratio Glucose Glucometer 291 255 Calculated Osmolality Calcium Total Bilirubin Icterus Index AST ALT Alkaline Phosphatase Total Protein Albumin Globulin Albumin/Globulin Ratio Specimen Hemolysis Adenovirus (PCR) B.parapertussis DNA PCR C. pneumoniae DNA (PCR) Coronavirus OC43 (PCR) Coronavirus HKU1 (PCR) Coronavirus 229E (PCR) Coronavirus NL63 (PCR) Human Metapneumovir PCR Influenza A (H3) PCR Influenza Type B (PCR) M. pneumoniae (PCR) Parainfluenza 1 (PCR) Parainfluenza 2 (PCR) Parainfluenza 3 (PCR) Parainfluenza 4 (PCR) RSV (PCR) Entero/Rhino (PCR) 05/29/17 05/29/17 05/29/17 03:47 03:47 05:48 WBC 20.4 H RBC 4.66 Hgb 13.9 Hct 45.6 MCV 97.9 MCH 29.8 MCHC 30.5 L RDW Std Deviation 48.2 Plt Count 138 MPV 14.2 H Immature Gran % (Auto) Not performed Neut % (Auto) Not performed Lymph % (Auto) Not performed Cloud % (Auto) Not performed Eos % (Auto) Not performed Baso % (Auto) Not performed Neut # (Auto) Not performed Lymph # (Auto) Not performed Cloud # (Auto) Not performed Eos # (Auto) Not performed Baso # (Auto) Not performed Abs Immat Gran (auto) Not performed Neutrophils % (Manual) 88.0 H Band Neutrophils % 1.0 Lymphocytes % (Manual) 2.0 L Reactive Lymphs % 2.0 H Monocytes % (Manual) 7.0 Neutrophils # (Manual) 18.0 H Band Neutrophils # 0.2 Lymphocytes # (Manual) 0.4 L Abs React Lymphs (Man) 0.4 H Monocytes # (Manual) 1.4 H RBC Morph Comment Normal ABG pH ABG pCO2 ABG pO2 ABG HCO3 ABG Total CO2 ABG O2 Saturation ABG Base Excess O2 Delivery Method FiO2 (liters per min) Turbidity < 20 Sodium 147 H Potassium 4.1 Chloride 103 Carbon Dioxide 36 H Anion Gap 8 BUN 44.0 H Creatinine 0.6 L GFR Calculation 137 BUN/Creatinine Ratio 73 H Glucose 308 H Glucometer 289 Calculated Osmolality 305 H Calcium 8.6 Total Bilirubin Icterus Index < 2 AST ALT Alkaline Phosphatase Total Protein Albumin Globulin Albumin/Globulin Ratio Specimen Hemolysis < 15 Adenovirus (PCR) B.parapertussis DNA PCR C. pneumoniae DNA (PCR) Coronavirus OC43 (PCR) Coronavirus HKU1 (PCR) Coronavirus 229E (PCR) Coronavirus NL63 (PCR) Human Metapneumovir PCR Influenza A (H3) PCR Influenza Type B (PCR) M. pneumoniae (PCR) Parainfluenza 1 (PCR) Parainfluenza 2 (PCR) Parainfluenza 3 (PCR) Parainfluenza 4 (PCR) RSV (PCR) Entero/Rhino (PCR) 05/29/17 05/29/17 05/29/17 11:44 13:13 17:47 WBC RBC Hgb Hct MCV MCH MCHC RDW Std Deviation Plt Count MPV Immature Gran % (Auto) Neut % (Auto) Lymph % (Auto) Cloud % (Auto) Eos % (Auto) Baso % (Auto) Neut # (Auto) Lymph # (Auto) Cloud # (Auto) Eos # (Auto) Baso # (Auto) Abs Immat Gran (auto) Neutrophils % (Manual) Band Neutrophils % Lymphocytes % (Manual) Reactive Lymphs % Monocytes % (Manual) Neutrophils # (Manual) Band Neutrophils # Lymphocytes # (Manual) Abs React Lymphs (Man) Monocytes # (Manual) RBC Morph Comment ABG pH ABG pCO2 ABG pO2 ABG HCO3 ABG Total CO2 ABG O2 Saturation ABG Base Excess O2 Delivery Method FiO2 (liters per min) Turbidity Sodium Potassium Chloride Carbon Dioxide Anion Gap BUN Creatinine GFR Calculation BUN/Creatinine Ratio Glucose Glucometer 258 239 Calculated Osmolality Calcium Total Bilirubin Icterus Index AST ALT Alkaline Phosphatase Total Protein Albumin Globulin Albumin/Globulin Ratio Specimen Hemolysis Adenovirus (PCR) Negative B.parapertussis DNA PCR Negative C. pneumoniae DNA (PCR) Negative Coronavirus OC43 (PCR) Negative Coronavirus HKU1 (PCR) Negative Coronavirus 229E (PCR) Negative Coronavirus NL63 (PCR) Negative Human Metapneumovir PCR Negative Influenza A (H3) PCR Detected A* Influenza Type B (PCR) Negative M. pneumoniae (PCR) Negative Parainfluenza 1 (PCR) Negative Parainfluenza 2 (PCR) Negative Parainfluenza 3 (PCR) Negative Parainfluenza 4 (PCR) Negative RSV (PCR) Negative Entero/Rhino (PCR) Negative 05/29/17 05/30/17 05/30/17 23:43 04:54 04:54 WBC 16.7 H RBC 4.29 L Hgb 12.9 L Hct 42.0 MCV 97.9 MCH 30.1 MCHC 30.7 L RDW Std Deviation 47.6 Plt Count 110 L MPV TNP Immature Gran % (Auto) Not performed Neut % (Auto) Not performed Lymph % (Auto) Not performed Cloud % (Auto) Not performed Eos % (Auto) Not performed Baso % (Auto) Not performed Neut # (Auto) Not performed Lymph # (Auto) Not performed Cloud # (Auto) Not performed Eos # (Auto) Not performed Baso # (Auto) Not performed Abs Immat Gran (auto) Not performed Neutrophils % (Manual) 96.0 H Band Neutrophils % Lymphocytes % (Manual) 3.0 L Reactive Lymphs % Monocytes % (Manual) 1.0 Neutrophils # (Manual) 16.0 H Band Neutrophils # Lymphocytes # (Manual) 0.5 L Abs React Lymphs (Man) Monocytes # (Manual) 0.2 RBC Morph Comment Normal ABG pH ABG pCO2 ABG pO2 ABG HCO3 ABG Total CO2 ABG O2 Saturation ABG Base Excess O2 Delivery Method FiO2 (liters per min) Turbidity < 20 Sodium 146 H Potassium 4.3 Chloride 106 Carbon Dioxide 34 H Anion Gap 6 BUN 52.0 H* Creatinine 0.6 L GFR Calculation 137 BUN/Creatinine Ratio 87 H Glucose 308 H Glucometer 260 Calculated Osmolality 307 H Calcium 8.5 Total Bilirubin 0.80 Icterus Index < 2 AST 30 ALT 75 H Alkaline Phosphatase 79 Total Protein 5.2 L Albumin 2.8 L Globulin 2.4 Albumin/Globulin Ratio 1.2 Specimen Hemolysis < 15 Adenovirus (PCR) B.parapertussis DNA PCR C. pneumoniae DNA (PCR) Coronavirus OC43 (PCR) Coronavirus HKU1 (PCR) Coronavirus 229E (PCR) Coronavirus NL63 (PCR) Human Metapneumovir PCR Influenza A (H3) PCR Influenza Type B (PCR) M. pneumoniae (PCR) Parainfluenza 1 (PCR) Parainfluenza 2 (PCR) Parainfluenza 3 (PCR) Parainfluenza 4 (PCR) RSV (PCR) Entero/Rhino (PCR) 05/30/17 05/30/17 04:57 11:16 WBC RBC Hgb Hct MCV MCH MCHC RDW Std Deviation Plt Count MPV Immature Gran % (Auto) Neut % (Auto) Lymph % (Auto) Cloud % (Auto) Eos % (Auto) Baso % (Auto) Neut # (Auto) Lymph # (Auto) Cloud # (Auto) Eos # (Auto) Baso # (Auto) Abs Immat Gran (auto) Neutrophils % (Manual) Band Neutrophils % Lymphocytes % (Manual) Reactive Lymphs % Monocytes % (Manual) Neutrophils # (Manual) Band Neutrophils # Lymphocytes # (Manual) Abs React Lymphs (Man) Monocytes # (Manual) RBC Morph Comment ABG pH ABG pCO2 ABG pO2 ABG HCO3 ABG Total CO2 ABG O2 Saturation ABG Base Excess O2 Delivery Method FiO2 (liters per min) Turbidity Sodium Potassium Chloride Carbon Dioxide Anion Gap BUN Creatinine GFR Calculation BUN/Creatinine Ratio Glucose Glucometer 270 275 Calculated Osmolality Calcium Total Bilirubin Icterus Index AST ALT Alkaline Phosphatase Total Protein Albumin Globulin Albumin/Globulin Ratio Specimen Hemolysis Adenovirus (PCR) B.parapertussis DNA PCR C. pneumoniae DNA (PCR) Coronavirus OC43 (PCR) Coronavirus HKU1 (PCR) Coronavirus 229E (PCR) Coronavirus NL63 (PCR) Human Metapneumovir PCR Influenza A (H3) PCR Influenza Type B (PCR) M. 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
[2017-05-30] MEDS ORDERED: NS 1,000 ML IV SCH (17:00)
[2017-05-30] MEDS: ATORVASTATIN 40 MG TABLET PO SCH (21:20)
[2017-05-30] MEDS: INSULIN GLARGINE 100unit/ml INJECTION SQ SCH (21:34)
[2017-05-30] MEDS: SALINE FLUSH 10ml SYRINGE IVF PRN (21:35)
[2017-05-31] MEDS: INSULIN ASPART 100unit/ml INJECTION SQ SCH ×4 (00:07→15:43)
[2017-05-31] MEDS: INSULIN ASPART 100unit/ml INJECTION SQ PRN ×4 (00:07→18:30)
[2017-05-31] MEDS: GUAIFENESIN 200mg/10ml ORAL LIQUID PO SCH ×4 (00:07→18:29)
[2017-05-31] MEDS: ALBUTEROL/IPRATROPIUM 2.5mg-0.5mg/3ml NEB AEROSOL SCH ×6 (00:58→19:04)
[2017-05-31] MEDS: METOCLOPRAMIDE 10mg/10ml ORAL LIQUID GT SCH ×4 (01:43→21:04)
[2017-05-31] MEDS: OMEPRAZOLE 20 MG CAPSULE PO SCH (06:16)
[2017-05-31] MEDS: BUDESONIDE INH.SOLN 0.5mg/2ml NEB AEROSOL SCH ×2 (07:30→19:03)
[2017-05-31] MEDS ORDERED: INSULIN GLARGINE 100unit/ml INJECTION SQ SCH (08:41)
[2017-05-31] MEDS: BuPROPion SR 150mg (12HR) TABLET PO SCH ×2 (08:41→21:05)
[2017-05-31] MEDS: TICAGRELOR 90 MG TABLET PO SCH ×2 (08:41→21:09)
[2017-05-31] MEDS: AMLODIPINE 10 MG TABLET PO SCH (08:42)
[2017-05-31] MEDS: HYDROCODONE/APAP 7.5 MG/325 MG TABLET PO SCH (08:42)
[2017-05-31] MEDS: LISINOPRIL 10 MG TABLET PO SCH (08:42)
[2017-05-31] MEDS: ATENOLOL 25 MG TABLET PO SCH ×2 (08:42→21:05)
[2017-05-31] MEDS: ASPIRIN 81 MG CHEWABLE TABLET GT SCH (08:42)
[2017-05-31] MEDS: METHYLPREDNISOLONE SOD SUCC 125mg/2ml INJECTION IVP SCH ×2 (08:43→21:07)
[2017-05-31] MEDS: CITALOPRAM 40 MG TABLET PO SCH (08:43)
[2017-05-31] MEDS: GABAPENTIN 300 MG CAPSULE PO SCH ×3 (08:43→21:05)
[2017-05-31] MEDS: OSELTAMIVIR 30mg/5ml ORAL LIQUID DOB SCH ×2 (08:44→21:09)
[2017-05-31] MEDS: PANTOPRAZOLE 40 MG INJECTION IVP SCH (08:44)
[2017-05-31] MEDS: ASPIRIN *EC* 81 MG TABLET PO SCH (08:46)
--- NOTE | 2017-05-31 09:43 | Progress Note ---
- Date 05/31/17 Subjective: Patient more alert although confused. Continuing in Bipap/NC as tolerated. Tube feeds continuing. IVF started yesterday due to decreased volume. Glucose remains high. Objective Vital signs: Temperature 97.9 F 05/29/17 23:12 Pulse Rate 74 05/31/17 06:00 Respiratory Rate 36 H 05/31/17 07:31 Blood Pressure 156/75 H 05/31/17 06:00 Pulse Oximetry 94 05/31/17 07:31 Rhythm: Normal Sinus Rhythm Height/Weight/BMI: Height 6 ft 0.83 in Weight 130.69 kg Body Mass Index 41.5 - Constitutional Present: no acute distress, obese - Routine HEENT Exam Head: Present: normocephalic, atraumatic Eye: Present: EOMI, conjunctivae pink - Routine Respiratory Exam Present: decreased breath sounds, distant breath sounds - Routine Cardiovascular Exam Present: RRR, no murmur - Routine Abdominal Exam Present: soft, normoactive bowel sounds. Absent: tenderness, rebound, guarding - Routine Extremities Exam Present: no edema. Absent: cyanosis, clubbing - Routine Musculoskeletal Exam Musculoskeletal: Present: no clubbing or cyanosis, limited range of motion. Absent: normal strength - Routine Skin Exam Present: intact, dry, warm - Routine Neurological Exam Present: altered mental status - Routine Psychiatric Exam Present: unable to assess Results - Labs CBC & Chem 7: 05/31/17 04:44 05/31/17 04:44 Microbiology Results: Microbiology 05/25/17 15:49 Midline Blood Culture - Final No Growth After 5 Days 05/25/17 15:43 Port/Picc Blood Culture - Final No Growth After 5 Days 05/20/17 04:36 Midline Blood Culture - Final No Growth After 5 Days 05/20/17 04:36 Midline Blood Culture - Final No Growth After 5 Days 05/21/17 13:45 Sputum, Expectorated Gram Stain - Final 05/21/17 13:45 Sputum, Expectorated Sputum Culture - Final Yeast, not C. albicans Normal Respiratory Charly Assessment and Plan (1) Acute exacerbation of chronic obstructive airways disease Current visit: Yes Status: Acute (2) Acute and chronic respiratory failure with hypercapnia Current visit: Yes Status: Acute (3) NSTEMI (non-ST elevated myocardial infarction) Current visit: Yes Status: Acute Assessment and Plan: Assessment Acute on chronic respiratory failure with hypercapnia and hypoxia - baseline home oxygen at 5L; intubated 05/21-extubated on 05/27, now on Bipap/NC Leukocytosis-trending down Dehydration NSTEMI-peak troponin 3.09, diffuse T changes, s/p heart cath with 2 stents 05/28 COPD exacerbation Transaminitis Influenza A Hyperglycemia Alerted Mental Status Resolved Thrombocytopenia Bilateral lower lobe pneumonia Bacteremia Fever Hypokalemia Wide complex tachycardia s/p cardioversion Chronic Medical: Cardiomyopathy-EF 30% by echo 05/21/17 Pulmonary nodule - Irregular 2.2cm left lower lobe pulmonary nodule Anemia, unspecified, stable Coronary Artery Disease Hypertension Sleep Apnea Diabetes Mellitus Type 2 - A1c on 04/17/17 was 6.4% GERD Osteoarthritis Peripheral neuropathy Fibromyalgia Depression Tobacco dependency Peripheral vascular disease Morbid obesity - BMI >40 Plan Extubated 05/27, continue Bipap/NC as per pulm Weaning steroids Continue Tamiflu Failed speech therapy, continue to re-eval Continue tube feeds and meds via Dobhoff, goal of 80ml/hr Continue IVF for now, will continue to monitor fluid status Continue ASA and Bivalirudin per cardiology Adjust Insulin (increase basal and short acting) due to hyperglycemia Trend labs Continue to work with PT/OT/Speech Transfer out of ICU today or tomorrow - Physician Narrative Narrative: Date: 05/31/17 Time: 0938 Hospital Course Summary Disclaimer: The visit summary below is not to be considered part of the above Progress Note. Hospital Course: 05/17/17 Admission Admit to observation status under the care of Dr. Lopez. Sepsis work up initiated in ED. Patient meeting SIRS criteria based on tachycardia, tachypnea and reported fevers at home without obvious source. Initial lactate was 1.4 with repeat lactate decreased to 0.9. Blood cultures pending. WBC stable at 5.0. CXR revealed left basilar scarring without focal pneumonia. Respiratory panel was negative. Patient was given DuoNeb treatments and Solu-Medrol 125mg IV in ED. Will continue respiratory care with DuoNeb treatments QID and Q6H PRN as well as Solu -Medrol 125mg IV Q6H. History of diabetes with A1c on 04/17/17 at 6.4%. Continue home medications and monitor blood sugars closely given treatment with steroids. Sliding scale insulin as indicated for hyperglycemia. Patient was placed on BiPAP in ED with improvement. Continue BiPAP as indicated. Ativan as needed for anxiety and agitation while on BiPAP. Will monitor closely on telemetry with continuous pulse oximetry. Oxygen as needed to maintain SAO2 between 90-95%, weaning as able to baseline of 5L. SCDs for DVT prophylaxis. Given sudden onset of dyspnea, will obtain CT angio chest for further evaluation of PE - results pending. NS at 100cc/hr for hydration given decreased oral intake as on BiPAP. Monitor daily weight closely for signs of fluid overload. Recheck labs in AM to monitor blood counts, electrolytes and renal function. Patient wishes to maintain FULL CODE status. Upon discharge, patient's care will be returned to his PCP, Dr. Odom. 05/18/17 Don reports that his breathing is a little better today and is he is more alert. New cough with sputum production. 1 of the 2 blood cultures obtained on admission is POSITIVE for Streptococcus. Night telehospitalist was notified and Rocephin 2g IV Q24 hours was initiated for antimicrobial coverage. Given new cough, will try and obtain a sputum culture. Mucinex for mucolytic effect. Ricola for cough. Continue respiratory care including nebulized treatments. Continue to encourage BiPAP as indicated and supplemental oxygen to maintain SAO2 between 90 -95%. Wean oxygen to baseline of 5L as able. Given sudden onset of dyspnea, CT angio chest was obtained and revealed no PE but did note 2.2cm left lower lobe pulmonary nodule raising concern for primary lung malignancy and recommended further evaluation. Will discuss consideration of pulmonary consult for further evaluation. Continue Solu-Medrol 125mg IV Q6 hours. Anticipate initiation of tapering in near future. Blood sugars remain elevated, most likely steroid effect, ranging from 160's-> 200. Continue sliding scale insulin. Given recent CT with contrast, will hold metformin and restart 05/19/17. Continue NS at 75cc/hr for hydration. Monitor urinary output and daily weight closely for signs of fluid over load. Oral intake is good. Consider discontinuation of fluids this afternoon. Ativan as needed for anxiety and agitation while on BiPAP. Troponins continue to trend up slowing - 0.015, 0.017, 0.029, 0.045 and 0.048 this morning. Will recheck troponin at 1030 and continue to monitor closely on telemetry. Patient denies chest pain. SCDs for DVT prophylaxis. Recheck labs in AM to monitor blood counts, electrolytes and renal function. Discussed at length with patient and family the importance of smoking cessation. He admits to wanting to stop smoking and inquired about initiation of Chantix. Continue Wellbutrin for smoking cessation. With BC positive and starting IV antibiotics, will change admission status to inpatient. Anticipate greater than 2 midnights of care needed. 05/19/17 Continue with Rocephin for antimicrobial coverage. With lungs still very tight and congested, will continue with Solu-Medrol 125mg IV q 6 hours. Continue Neb treatments and acapella. Encourage use of BiPAP as much as able to help his chronic hypercapnea. Stressed with about the importance of him not smoking. She understand. Will consult with Dr Ashby for pulm evaluation. Will discontinue IVF. May restart metformin this evening. Sugars with elevation secondary to steroids. Did give Diamox 500mg x1 this am for fluid motivation and to help minimize contraction alkalosis. PT/OT to evaluate and initiate treatment tomorrow for his significant pulmonary debility. 05/20 Continue with Rocephin for antimicrobial coverage. One blood culture was positive with streptococcus Viridans, Repeat BC were drawn this morning. Scheduled breathing tx, IV solu-medrol, as well as oxygen and Bipap Appreciate Dr Ashby consultation. Likely require bronchoscopy for biopsy of lung mass. Continue to monitor BGM remain elevated. Metformin was resumed as well as sliding scale insulin. Encourage PT/OT for strengthening 05/21 Resp failure --> ABG shows resp acidosis and he was placed on BiPAP with improvement in color. Repeat ABG shows pH 7.12, pCO2 106, pO2 185. CXR ordered. BG 230. Chest pain --> EKG shows ST changes and widened QRS, poss a-flutter; troponin pending. Dr. Govea consulted. He's had 2 NTG but remains very hypertensive with SBP 220s. Pt failed to respond to adenosine, and subseqently was cardioverted with conversion to sinus tach. Rapid response activated and Dr. Ramírez was at bedside x20 min. Transferred to CCU, where pt was met by Dr. Govea for evaluation. Continue treatment for resp status including steroids and Rocephin. 05/22 Patient remains on a ventilator requiring continuous sedation. Oxygenation borderline on 40% FiO2-oxygen flow increased to 60% by pulmonary earlier today. Continue triple antibiotics (cefepime, Levaquin, vancomycin) pending sputum culture due to extensive pneumonia on CT/chest x-ray yesterday-not present on initial films. Peak troponin 3.09 with diffuse T-wave changes; discussed with Dr. Govea and will require cardiac catheterization in the future. Continue heparin drip. Blood pressure is uncontrolled-clonidine patch initiated earlier, IV hydralazine added as needed for systolic pressures above 180. OG placed-resume statin, SSRI, atenolol, and aspirin. Assess gastric residuals today-anticipate beginning tube feedings tomorrow. Adequate urine output, continue to monitor. Blood sugars remain elevated, off metformin at present. Increase basal insulin. 05/23 Patient remains on a ventilator requiring continuous sedation. Continue triple antibiotics (cefepime, Levaquin, vancomycin); suspect aspiration pneumonia-sputum culture normal charly. Extensive infiltrates on CT chest. Repeat chest x-ray in a.m. Fluid balance positive-roughly 5 L over several days, weight up-diuresis today. Potassium supplemented IV earlier today. Peak troponin 3.09 with diffuse T-wave changes; discussed with Dr. Govea and will require cardiac catheterization in the future. Continue heparin drip. Blood pressure remains elevated but improved from yesterday with addition of clonidine patch and resumption of atenolol per OG. IV hydralazine available as needed for systolic pressures above 180. OG placed 05/22-low volume gastric output overnight and tolerating medications per OG. Will initiate tube feedings with low glycemic formula at 20 mL per hour overnight. Nutrition consult. Blood sugars remain elevated, off metformin at present and on steroids. Increase basal insulin to 40 units anticipating further increase in blood sugar with initiation of tube feedings. 05/24 Remains ventilator dependent. Steroids decreased. Vancomycin discontinued, continue Levaquin and cefepime for probable aspiration pneumonia and Streptococcus viridans positive blood culture. Continue diuresis, blood pressures elevated-atenolol increased and lisinopril initiated to improve control. Tolerating tube feedings at low-volume, converted pulmonary formula with goal of 80 mL per hour. Platelet count dropping, heparin discontinued and bivalirudin initiated. 05/25 Tolerating spontaneous breathing trial, steroids decreased. Continues to require continuous sedation. Lisinopril increased to 20 mg to improve blood pressure control. Platelet count down to 100K; HIT Ab pending. Fevers overnight without evidence source, leukocytosis/left shift resolved improved. Lines to be cultured. 05/26 FiO2 titrated to 40%; diuresing well-continue same. Spontaneous breathing trial planned for the morning with possible extubation at that time. Cardiac status stable, no further tachyarrhythmias. Trend to improved blood pressures. Cardiac catheterization planned in the future. Remains on bivalirudin. Platelet count 86K today, HIT Ab pending. Tube feedings at goal, blood sugars significantly elevated-NovoLog scheduled every 6 hours and when necessary. Chest x-ray improved, remains on Levaquin and cefepime for probable aspiration pneumonia. Blood cultures drawn yesterday negative thus far. 05/27 Extubated this afternoon, OG discontinued in conjunction with extubation. CPAP initiated for respiratory support. Speech therapy, PT, OT consultations tomorrow. Anticipate significant reduction in fluid volume off sedating medications and tube feedings--> Lasix dose decreased to twice daily administration. Platelet count stabilizing, HIT Ab negative. Intermittent fever, remains on antibiotics for possible aspiration pneumonia. Repeat blood cultures negative. 05/29 Extubated 05/27 Placed on CPAP with home equipment. Baseline 5L Currently tolerating NC, oxygen support as needed to maintain sats and mentation , pulm consulted and following CXR-stable Leukocytosis-likely 2/2 steroid effect, PCT negative, no fever x48 hours Cefepime and Levaquin currently. Vanc discontinued 05/24. Likely d/c abx today. Will consult ID for abx recs Failed speech therapy Continue tube feeds and meds via Dobhoff Monitor fluid status-hold evening dose of lasix Peak troponin 3.09 on 05/21/17 with diffuse T-wave changes; heart cath 05/28-now on ASA and Bivalirudin Monitor platelet count-currently WNL Monitor BP, adjust medications as needed Monitor glucose and continue insulin as ordered Discussed with nursing staff, and infectious disease 05/30 Extubated 05/27, continue Bipap/NC as per pulm Weaning steroids CXR-improving Leukocytosis Cefepime, Levaquin, Vanc discontinued Continue Tamiflu Failed speech therapy, continue to re-eval Continue tube feeds and meds via Dobhoff, feeds at 40ml/hr, goal of 80ml/hr Discontinue lasix, give 1L NS and re-eval fluid status Continue ASA and Bivalirudin per cardiology Trend labs 05/31 Extubated 05/27, continue Bipap/NC as per pulm Weaning steroids Continue Tamiflu Failed speech therapy, continue to re-eval Continue tube feeds and meds via Dobhoff, goal of 80ml/hr Continue IVF for now, will continue to monitor fluid status Continue ASA and Bivalirudin per cardiology Adjust Insulin (increase basal and short acting) due to hyperglycemia Trend labs
--- NOTE | 2017-05-31 11:16 | Pulmonology Progress Note ---
Subjective Principal diagnosis: SOB, respiratory failure Interval history: Patient is awake, but fatigued as he just worked with PT. Minimal cough noted and no SOB. Is wanting to get up to a chair but still very weak per PT, needs a lift to get up to chair. Exam Vital signs: Temperature 97.8 F 05/31/17 08:00 Pulse Rate 79 05/31/17 10:15 Respiratory Rate 41 H 05/31/17 10:15 Blood Pressure 137/64 05/31/17 10:00 Pulse Oximetry 94 05/31/17 10:15 Inpatient Medications: Generic Name Dose Route Start Last Admin Trade Name Freq PRN Reason Stop Dose Admin Acetaminophen 325 - 650 mg 05/17/17 10:08 05/26/17 20:58 Tylenol PO 650 mg Q5H PRN Administration Discomfort Acetaminophen 650 mg 05/21/17 15:10 Tylenol Supp UT Q5H PRN Pain Acetaminophen 325 - 650 mg 05/28/17 09:24 Tylenol PO Q5H PRN Pain Hydrocodone Bitart/Acetaminophen 1 tab 05/17/17 21:00 05/31/17 08:42 [place] 7.5/325 PO 1 tab BID KSENIA Administration Hydrocodone Bitart/Acetaminophen 1 tab 05/17/17 10:14 [place] 7.5/325 PO Q6H PRN Pain Hydrocodone Bitart/Acetaminophen 1 - 2 tab 05/28/17 09:24 [place] 5/325 PO Q5H PRN Pain Al Hydroxide/Mg Hydroxide 30 ml 05/28/17 09:24 Maalox Plus PO Q3H PRN Indigestion Albuterol/Ipratropium 3 ml 05/17/17 10:11 Duoneb AEROSOL RTQID PRN Albuterol/Ipratropium 3 ml 05/21/17 15:15 05/31/17 07:30 Duoneb AEROSOL 3 ml Q4H KSENIA Administration Amlodipine Besylate 10 mg 05/24/17 13:46 05/31/17 08:42 Norvasc PO 10 mg DAILY KSENIA Administration Aspirin 81 mg 05/22/17 16:00 05/31/17 08:42 Asa GT 81 mg DAILY KSENIA Administration Aspirin 81 mg 05/28/17 09:24 05/31/17 08:46 Ecotrin PO Not Given DAILY KSENIA Atenolol 25 mg 05/29/17 09:00 05/31/17 08:42 Tenormin PO 25 mg BID KSENIA Administration Atorvastatin Calcium 80 mg 05/28/17 21:00 05/30/17 21:20 Lipitor PO 80 mg HS KSENIA Administration Atropine Sulfate 0.5 mg 05/28/17 09:24 Atropine IVP Q5M PRN Bradycardia Benzocaine 1 lozenge 05/20/17 18:54 Cepacol Sore Throat Lozenge MM Q2HR PRN Sore throat Bisacodyl 10 mg 05/27/17 15:11 Dulcolax RECTALLY DAILY PRN Constipation Bisacodyl 5 - 10 mg 05/28/17 09:24 Dulcolax PO DAILY PRN Constipation Bisacodyl 10 mg 05/28/17 09:24 Dulcolax RECTALLY DAILY PRN Constipation Budesonide 0.5 mg 05/17/17 19:00 05/31/17 07:30 Pulmicort Inhalation AEROSOL 0.5 mg RTBID [facility] Administration Bupropion HCl 150 mg 05/17/17 21:00 05/31/17 08:41 Wellbutrin Sr PO 150 mg BID [facility] Administration Citalopram Hydrobromide 40 mg 05/18/17 09:00 05/31/17 08:43 Celexa PO 40 mg DAILY [facility] Administration Clonidine HCl 0.1 mg 05/22/17 09:00 05/29/17 08:01 Catapres-Tts 1 TD 0.1 mg Q7D@0900 [facility] Administration Clonidine HCl 1 removal 05/29/17 08:59 05/29/17 08:13 Catapres Patch Removal TD 1 removal Q7D [facility] Administration Furosemide 20 mg 05/29/17 09:00 Lasix IVP DAILY [facility] Gabapentin 300 mg 05/17/17 15:00 05/31/17 08:43 Neurontin PO 300 mg TID [facility] Administration Glucose 37.5 gm 05/17/17 10:12 Glutose 15 PO PRN PRN Hypoglycemia Guaifenesin 400 mg 05/29/17 12:00 05/31/17 06:11 Robitussin Liq PO 400 mg Q6H KSENIA Administration Hydralazine HCl 10 mg 05/22/17 15:01 05/28/17 06:06 Apresoline IVP 10 mg Q4H PRN Administration Hypertension Insulin Aspart 2 - 14 unit 05/21/17 11:43 05/31/17 06:12 Novolog SQ 10 unit SS PRN Administration Hyperglycemia Protocol Insulin Aspart 12 unit 05/31/17 08:41 05/31/17 10:50 Novolog SQ 12 unit Q6H KSENIA Administration Insulin Glargine 50 unit 05/31/17 08:41 Lantus SQ HS [facility] Lisinopril 10 mg 05/24/17 16:15 05/31/17 08:42 Prinivil PO 10 mg DAILY KSENIA Administration Lorazepam 1 mg 05/24/17 19:46 05/31/17 01:43 Ativan Inj IVP 1 mg Q2H PRN Administration Agitation/Air hunger/Pain Lorazepam 0.5 - 1 mg 05/28/17 09:24 Ativan PO Q4H PRN Anxiety Lorazepam 0.5 - 1 mg 05/28/17 09:24 Ativan Inj IVP Q4H PRN Anxiety Magnesium Hydroxide 30 ml 05/28/17 09:24 Mom PO DAILY PRN Constipation Menthol 1 lozenge 05/18/17 08:19 Ricola Sf MM PRN PRN Cough Methylprednisolone Sodium Succinate 60 mg 05/29/17 21:00 05/31/17 08:43 Solu-Medrol IVP 60 mg Q12HR [facility] Administration Metoclopramide HCl 5 - 10 mg 05/28/17 09:24 Reglan IVP Q6H PRN Nausea &/or vomiting Metoclopramide HCl 5 mg 05/30/17 14:00 05/31/17 08:41 Reglan GT 5 mg Q6H KSENIA Administration Morphine Sulfate 2 - 4 mg 05/28/17 09:24 Morphine Sulfate Inj IVP Q5M PRN Angina Nitroglycerin 0.4 mg 05/17/17 10:14 05/21/17 08:35 Nitrostat SL 0.4 mg Q5MIN3 PRN Administration CP Nitroglycerin 0.4 mg 05/28/17 09:24 Nitrostat SL Q5M PRN Angina Omeprazole 40 mg 05/18/17 06:30 05/31/17 06:16 Prilosec PO 40 mg ACB KSENIA Administration Ondansetron HCl 4 mg 05/28/17 09:24 Zofran IVP Q6H PRN Nausea &/or vomiting Oseltamivir Phosphate 75 mg 05/29/17 21:00 05/31/17 08:44 Tamiflu 06/03/17 09:01 75 mg BID KSENIA Administration Pantoprazole Sodium 40 mg 05/22/17 09:00 05/31/17 08:44 Protonix Iv IVP 40 mg DAILY KSENIA Administration Promethazine HCl 12.5 - 25 mg 05/28/17 09:24 Phenergan Inj IVP Q6HR PRN Nausea &/or vomiting Sodium Chloride 10 - 80 ml 05/17/17 05:20 05/30/17 21:35 Iv Flush IVF 10 ml PRN PRN Administration Flushing Sodium Chloride 1 spray 05/19/17 11:42 05/19/17 16:37 Deep Sea Nasal Moisturizing [place] EA NOSTRIL 1 spray PRN PRN Administration Congestion Sodium Chloride 500 ml 05/25/17 21:40 05/25/17 21:52 Normal Saline IV 500 ml PRN PRN Administration Ticagrelor 90 mg 05/28/17 21:01 05/31/17 08:41 Brilinta PO 90 mg Q12H KSENIA Administration Discontinued Medications Generic Name Dose Route Start Last Admin Trade Name Freq PRN Reason Stop Dose Admin Acetazolamide 500 mg 05/19/17 10:51 05/19/17 11:25 Diamox PO 05/19/17 10:52 500 mg O ONE Administration Adenosine 12 mg 05/21/17 09:17 05/21/17 08:50 Adenocard IVP 05/21/17 09:18 12 mg O ONE Administration Adenosine 6 mg 05/21/17 09:18 05/21/17 09:23 Adenocard IVP 05/21/17 09:19 6 mg O ONE Administration Albuterol/Ipratropium 6 ml 05/17/17 05:19 05/17/17 05:33 Duoneb AEROSOL 05/17/17 05:20 6 ml O ONE Administration Albuterol/Ipratropium 3 ml 05/17/17 11:00 05/21/17 18:22 Duoneb AEROSOL Not Given RTQID KSENIA Aspirin 81 mg 05/18/17 09:00 05/23/17 08:26 Asa PO Not Given DAILY KSENIA Atenolol 25 mg 05/18/17 09:00 05/24/17 08:58 Tenormin PO 25 mg DAILY KSENIA Administration Atenolol 50 mg 05/25/17 09:00 05/28/17 12:30 Tenormin PO Not Given DAILY KSENIA Atenolol 25 mg 05/24/17 09:40 05/24/17 11:09 Tenormin PO 05/24/17 09:41 25 mg O ONE Administration Bivalirudin 250 mg 05/24/17 14:15 Angiomax IV NOW KSENIA Enoxaparin Sodium 1 each 05/18/17 10:47 05/18/17 12:54 Pharmacy Consult - Lovenox MC 05/18/17 10:48 1 each O ONE Administration Enoxaparin Sodium 50 mg 05/18/17 11:45 05/20/17 08:37 Lovenox SQ 50 mg DAILY KSENIA Administration Enoxaparin Sodium 142 mg 05/27/17 17:00 05/28/17 09:34 Lovenox SQ 142 mg DAILY KSENIA Administration Furosemide 20 mg 05/18/17 09:00 05/20/17 08:37 Lasix PO 20 mg DAILY KSENIA Administration Furosemide 40 mg 05/21/17 09:37 05/21/17 09:45 Lasix IVP 05/21/17 09:38 40 mg ONCE ONE Administration Furosemide 20 mg 05/23/17 21:00 05/24/17 08:59 Lasix IVP 20 mg Q12HR KSENIA Administration Furosemide 20 mg 05/24/17 17:00 05/27/17 09:31 Lasix IVP 20 mg Q8HR KSENIA Administration Furosemide 20 mg 05/27/17 21:00 05/29/17 08:09 Lasix IVP 20 mg Q12H KSENIA Administration Guaifenesin 1,200 mg 05/18/17 09:00 05/29/17 08:14 Mucinex La PO Not Given BID KSENIA Heparin Sodium (Beef Lung) 5,000 unit 05/21/17 09:23 05/21/17 10:07 Heparin Bolus IVP 05/21/17 09:24 5,000 unit O ONE Administration Heparin Sodium (Beef Lung) 3,000 unit 05/21/17 17:45 05/21/17 17:53 Heparin Bolus IVP 05/21/17 17:46 3,000 unit O ONE Administration Heparin Sodium (Beef Lung) 3,000 unit 05/22/17 03:37 05/22/17 03:46 Heparin Bolus IVP 05/22/17 03:38 3,000 unit O ONE Administration Heparin Sodium (Porcine) 1 each 05/21/17 09:08 Pharmacy Consult - Heparin 05/21/17 09:09 ONE TIME ONE Hydralazine HCl 5 mg 05/22/17 08:47 05/22/17 10:09 Apresoline IVP 5 mg Q6H PRN Administration Hypertension Sodium Chloride 1,000 mls @ 999.9 mls/hr 05/17/17 05:44 05/17/17 11:20 Normal Saline IV 05/17/17 06:43 Infused .Q1H ONE Infusion Sodium Chloride 1,000 mls @ 75 mls/hr 05/17/17 10:08 05/19/17 11:19 Normal Saline IV Infused .[id number] KSENIA Infusion Ceftriaxone Sodium 2 gm/ 100 mls @ 200 mls/hr 05/18/17 01:15 05/18/17 01:50 Sodium Chloride IV Infused Q24H KSENIA Infusion Ceftriaxone Sodium 2 gm/ 50 mls @ 100 mls/hr 05/18/17 21:00 05/20/17 21:55 Sodium Chloride IV Infused Q24H KSENIA Infusion Heparin Sodium (Porcine) 20,000 unit in 500 mls @ 44 mls/hr 05/21/17 09:30 13:17 Heparin Drip IV Infused .[id number] KSENIA Titration Protocol Dexmedetomidine HCl 200 mcg/ 52 mls @ 6.87 mls/hr 05/21/17 09:52 05/21/17 20: 00 Sodium Chloride IV 05/21/17 20:29 0 mcg/kg/hr .Q7H35M PRN 0 mls/hr Protocol Titration 0.2 MCG/KG/HR Propofol 1,000 mg in 100 mls @ 3.969 mls/hr 05/21/17 10:39 05/21/17 14:28 Diprivan IV 0 mcg/kg/min .Q24H PRN 0 mls/hr Protocol Infusion 5 MCG/KG/MIN Fentanyl 1,000 mcg/ Sodium 100 mls @ 0 mls/hr 05/21/17 13:02 05/27/17 14:45 Chloride IV Infused .Q0M PRN Titration Protocol Per Protocol Sodium Chloride 250 mls @ 999.9 mls/hr 05/21/17 13:15 05/21/17 14:28 Normal Saline IV 05/21/17 13:29 Infused .Q15M KSENIA Infusion Cefepime HCl 1 gm/ Sodium 50 mls @ 100 mls/hr 05/21/17 15:30 05/29/17 10:46 Chloride IV Infused Q6H KSENIA Infusion Levofloxacin/Dextrose 750 mg in 150 mls @ 100 mls/hr 05/21/17 16:00 05/28/17 17:15 Levaquin Premix IV Infused Q24H KSENIA Infusion Vancomycin HCl 1,500 mg/ 500 mls @ 250 mls/hr 05/21/17 18:00 05/24/17 12:15 Sodium Chloride IV Infused Q8H KSENIA Infusion Dexmedetomidine HCl 1,000 mcg/ 260 mls @ 6.87 mls/hr 05/21/17 20:30 05/27/17 14:45 Sodium Chloride IV 05/27/17 14:45 Infused .Q24H PRN Titration Protocol 0.2 MCG/KG/HR Potassium Chloride 10 meq in 100 mls @ 100 mls/hr 05/23/17 09:45 05/23/17 17: 34 Potassium Chloride Premix IV 05/23/17 13:44 Infused Q1H KSENIA Infusion Heparin Sodium (Porcine) 20,000 unit in 500 mls @ 45 mls/hr 05/23/17 16:00 06:16 Heparin Drip IV Not Given .Q11H7M KSENIA Protocol Potassium Chloride 10 meq in 100 mls @ 100 mls/hr 05/24/17 09:45 05/24/17 15: 56 Potassium Chloride Premix IV 05/24/17 13:44 Not Given Q1H KSENIA Potassium Chloride 10 meq/ 105 mls @ 105 mls/hr 05/24/17 11:45 05/24/17 17:00 Sodium Chloride IV 05/24/17 15:44 Infused Q1H KSENIA Infusion Bivalirudin 250 mg/ Sodium 500 mls @ 43.2 mls/hr 05/24/17 15:15 05/27/17 17: 34 Chloride IV Not Given .[id number] KSENIA Sodium Chloride 1,000 mls @ 75 mls/hr 05/28/17 07:45 05/28/17 14:00 Normal Saline IV Infused .[id number] KSENIA Infusion Sodium Chloride 1,000 mls @ 500 mls/hr 05/30/17 10:14 05/30/17 10:41 Normal Saline IV 05/30/17 12:13 500 mls/hr .Q2H ONE Administration Sodium Chloride 1,000 mls @ 60 mls/hr 05/30/17 17:00 05/31/17 06:00 Normal Saline IV 05/31/17 09:39 60 mls/hr .[id number] KSENIA Infusion Insulin Aspart 1 - 5 unit 05/17/17 10:12 05/18/17 06:06 Novolog SQ 2 unit SS PRN Administration Hyperglycemia Protocol Insulin Aspart 2 - 8 unit 05/18/17 08:22 05/21/17 07:30 Novolog SQ 3 unit SS PRN Administration Hyperglycemia Protocol Insulin Aspart 15 unit 05/20/17 10:32 05/20/17 10:36 Novolog SQ 05/20/17 10:33 15 unit ONE TIME ONE Administration Insulin Aspart 10 unit 05/26/17 12:00 05/26/17 13:54 Novolog SQ Not Given Q6H KSENIA Insulin Aspart 10 unit 05/26/17 15:00 05/27/17 21:06 Novolog SQ Not Given 0300,0900,1500,2100 KSENIA Insulin Aspart 10 unit 05/28/17 15:00 Novolog SQ Q6HR KSENIA Insulin Aspart 10 unit 05/28/17 18:00 05/31/17 06:11 Novolog SQ 10 unit Q6H KSENIA Administration Insulin Glargine 10 unit 05/21/17 21:00 05/21/17 20:14 Lantus SQ 10 unit HS KSENIA Administration Insulin Glargine 20 unit 05/22/17 21:00 05/22/17 20:14 Lantus SQ 20 unit HS KSENIA Administration Insulin Glargine 40 unit 05/23/17 21:00 05/30/17 21:34 Lantus SQ 40 unit HS KSENIA Administration Labetalol HCl 10 mg 05/21/17 20:40 05/22/17 06:05 Trandate IVP 10 mg Q4H PRN Administration INCREASED blood pressure Lorazepam 1 mg 05/17/17 06:16 05/17/17 06:56 Ativan PO 05/17/17 06:17 1 mg O ONE Administration Lorazepam 0.5 mg 05/17/17 10:13 05/24/17 15:55 Ativan Inj IVP 0.5 mg Q6H PRN Administration Magnesium Hydroxide 30 ml 05/26/17 12:41 05/26/17 13:53 Mom GT 05/26/17 12:42 30 ml O ONE Administration Metformin HCl 500 mg 05/17/17 17:30 05/18/17 10:00 Glucophage PO Not Given BIDWM KSENIA Metformin HCl 500 mg 05/19/17 09:00 05/21/17 10:52 Glucophage PO Not Given BIDWM KSENIA Methylprednisolone Sodium Succinate 125 mg 05/17/17 06:26 05/17/17 06:53 Solu-Medrol IM 05/17/17 06:27 125 mg O ONE Administration Methylprednisolone Sodium Succinate 125 mg 05/17/17 15:00 05/20/17 08:37 Solu-Medrol IVP 125 mg Q6HR KSENIA Administration Methylprednisolone Sodium Succinate 80 mg 05/20/17 15:00 05/24/17 08:57 Solu-Medrol IVP 80 mg Q6HR KSENIA Administration Methylprednisolone Sodium Succinate 80 mg 05/24/17 17:00 05/26/17 08:23 Solu-Medrol IVP 80 mg Q8HR KSENIA Administration Methylprednisolone Sodium Succinate 80 mg 05/26/17 21:00 05/29/17 08:15 Solu-Medrol IVP 80 mg Q12HR KSENIA Administration Metoclopramide HCl 5 mg 05/23/17 17:30 05/30/17 10:42 Reglan GT 5 mg Q6H KSENIA Administration Metoprolol Tartrate 15 mg 05/21/17 09:18 05/21/17 09:05 Lopressor IVP 05/21/17 09:19 15 mg ONCE ONE Administration Metoprolol Tartrate 5 mg 05/28/17 10:01 05/28/17 10:00 Lopressor IVP 05/28/17 10:02 5 mg ONCE ONE Administration Morphine Sulfate 1 - 2 mg 05/17/17 10:08 05/24/17 17:56 Morphine Sulfate Inj IVP 2 mg Q2H PRN Administration Pain Morphine Sulfate 2 - 4 mg 05/28/17 09:24 05/28/17 10:17 Morphine Sulfate Inj IVP 05/29/17 09:23 4 mg Q2H PRN Administration Pain --Pom--(Itraconazole 200 mg 05/17/17 21:00 05/29/17 09:39 [Itraconazole] 200 PO Not Given Mg) BID KSENIA Ondansetron HCl 4 mg 05/17/17 10:08 05/19/17 02:45 Zofran IVP 4 mg Q6H PRN Administration Nausea &/or vomiting Pharmacy Consult 1 each 05/17/17 10:32 Pharmacy Consult - Fall Risk XX 05/17/17 10:33 ONE TIME ONE Pharmacy Consult 1 each 05/27/17 10:17 Pharmacy Consult - Fall Risk XX 05/27/17 10:18 ONE TIME ONE Potassium Chloride 40 meq 05/24/17 18:10 05/26/17 06:13 Kcl Oral Liq 20 Meq/15 Ml PO Not Given BIDWM KSENIA Potassium Chloride 40 meq 05/25/17 13:00 05/26/17 08:22 Kcl Oral Liq 20 Meq/15 Ml PO 40 meq QID KSENIA Administration Potassium Chloride 40 meq 05/26/17 12:00 05/27/17 12:04 Kcl Oral Liq 20 Meq/15 Ml PO 40 meq TIDWM KSENIA Administration Potassium Chloride 40 meq 05/27/17 17:30 05/29/17 07:59 Kcl Oral Liq 20 Meq/15 Ml PO 40 meq BIDWM KSENIA Administration Potassium Chloride 40 meq 05/29/17 09:00 05/30/17 08:42 Kcl Oral Liq 20 Meq/15 Ml PO 40 meq DAILY KSENIA Administration Simvastatin 20 mg 05/17/17 21:00 05/27/17 20:36 Zocor PO Not Given HS KSENIA Vancomycin HCl 1 each 05/21/17 15:19 05/21/17 15:53 Pharmacy Consult - Vancomycin MC 05/21/17 15:20 1 each O ONE Administration - Constitutional no acute distress, morbidly obese, cooperative - Routine HEENT Exam Head: Present: normocephalic, atraumatic Eye: Present: EOMI, PERRL ENT: Present: mucous membranes moist - Routine Neck Exam Present: supple, full ROM, trachea midline - Routine Respiratory Exam Present: decreased breath sounds, wheezes. Absent: accessory muscle use, patient mechanically ventilated - Routine Cardiovascular Exam Present: RRR, S1, S2, no murmur - Routine Abdominal Exam Present: soft, normoactive bowel sounds - Routine Extremities Exam Present: no edema, non tender, full ROM. Absent: cyanosis, clubbing, edema - Routine Back/Spine/Pelvis Exam Back/Spine: Present: full ROM - Routine Skin Exam Present: intact, dry - Routine Neurological Exam Present: alert, CN II-XII intact still confused - Routine Psychiatric Exam Present: normal affect, cooperative - Urinary Catheter Management Urethral Cath placed during this visit: yes Insertion date: 05/21/17 Results - Laboratory Findings Laboratory: Laboratory Results - last 48 hr 05/29/17 05/29/17 05/29/17 11:44 13:13 17:47 WBC RBC Hgb Hct MCV MCH MCHC RDW Std Deviation Plt Count MPV Immature Gran % (Auto) Neut % (Auto) Lymph % (Auto) [place] % (Auto) Eos % (Auto) Baso % (Auto) Neut # (Auto) Lymph # (Auto) [place] # (Auto) Eos # (Auto) Baso # (Auto) Abs Immat Gran (auto) Neutrophils % (Manual) Lymphocytes % (Manual) Monocytes % (Manual) Neutrophils # (Manual) Lymphocytes # (Manual) Monocytes # (Manual) RBC Morph Comment Turbidity Sodium Potassium Chloride Carbon Dioxide Anion Gap BUN Creatinine GFR Calculation BUN/Creatinine Ratio Glucose Glucometer 258 239 Calculated Osmolality Calcium Phosphorus Magnesium Total Bilirubin Icterus Index AST ALT Alkaline Phosphatase Total Protein Albumin Globulin Albumin/Globulin Ratio Specimen Hemolysis Adenovirus (PCR) Negative B.parapertussis DNA PCR Negative C. pneumoniae DNA (PCR) Negative Coronavirus OC43 (PCR) Negative Coronavirus HKU1 (PCR) Negative Coronavirus 229E (PCR) Negative Coronavirus NL63 (PCR) Negative Human Metapneumovir PCR Negative Influenza A (H3) PCR Detected A* Influenza Type B (PCR) Negative M. pneumoniae (PCR) Negative Parainfluenza 1 (PCR) Negative Parainfluenza 2 (PCR) Negative Parainfluenza 3 (PCR) Negative Parainfluenza 4 (PCR) Negative RSV (PCR) Negative Entero/Rhino (PCR) Negative 05/29/17 05/30/17 05/30/17 23:43 04:54 04:54 WBC 16.7 H RBC 4.29 L Hgb 12.9 L Hct 42.0 MCV 97.9 MCH 30.1 MCHC 30.7 L RDW Std Deviation 47.6 Plt Count 110 L MPV TNP Immature Gran % (Auto) Not performed Neut % (Auto) Not performed Lymph % (Auto) Not performed [place] % (Auto) Not performed Eos % (Auto) Not performed Baso % (Auto) Not performed Neut # (Auto) Not performed Lymph # (Auto) Not performed [place] # (Auto) Not performed Eos # (Auto) Not performed Baso # (Auto) Not performed Abs Immat Gran (auto) Not performed Neutrophils % (Manual) 96.0 H Lymphocytes % (Manual) 3.0 L Monocytes % (Manual) 1.0 Neutrophils # (Manual) 16.0 H Lymphocytes # (Manual) 0.5 L Monocytes # (Manual) 0.2 RBC Morph Comment Normal Turbidity < 20 Sodium 146 H Potassium 4.3 Chloride 106 Carbon Dioxide 34 H Anion Gap 6 BUN 52.0 H* Creatinine 0.6 L GFR Calculation 137 BUN/Creatinine Ratio 87 H Glucose 308 H Glucometer 260 Calculated Osmolality 307 H Calcium 8.5 Phosphorus Magnesium Total Bilirubin 0.80 Icterus Index < 2 AST 30 ALT 75 H Alkaline Phosphatase 79 Total Protein 5.2 L Albumin 2.8 L Globulin 2.4 Albumin/Globulin Ratio 1.2 Specimen Hemolysis < 15 Adenovirus (PCR) B.parapertussis DNA PCR C. pneumoniae DNA (PCR) Coronavirus OC43 (PCR) Coronavirus HKU1 (PCR) Coronavirus 229E (PCR) Coronavirus NL63 (PCR) Human Metapneumovir PCR Influenza A (H3) PCR Influenza Type B (PCR) M. pneumoniae (PCR) Parainfluenza 1 (PCR) Parainfluenza 2 (PCR) Parainfluenza 3 (PCR) Parainfluenza 4 (PCR) RSV (PCR) Entero/Rhino (PCR) 05/30/17 05/30/17 05/30/17 04:57 11:16 19:14 WBC RBC Hgb Hct MCV MCH MCHC RDW Std Deviation Plt Count MPV Immature Gran % (Auto) Neut % (Auto) Lymph % (Auto) [place] % (Auto) Eos % (Auto) Baso % (Auto) Neut # (Auto) Lymph # (Auto) [place] # (Auto) Eos # (Auto) Baso # (Auto) Abs Immat Gran (auto) Neutrophils % (Manual) Lymphocytes % (Manual) Monocytes % (Manual) Neutrophils # (Manual) Lymphocytes # (Manual) Monocytes # (Manual) RBC Morph Comment Turbidity Sodium Potassium Chloride Carbon Dioxide Anion Gap BUN Creatinine GFR Calculation BUN/Creatinine Ratio Glucose Glucometer 270 275 339 Calculated Osmolality Calcium Phosphorus Magnesium Total Bilirubin Icterus Index AST ALT Alkaline Phosphatase Total Protein Albumin Globulin Albumin/Globulin Ratio Specimen Hemolysis Adenovirus (PCR) B.parapertussis DNA PCR C. pneumoniae DNA (PCR) Coronavirus OC43 (PCR) Coronavirus HKU1 (PCR) Coronavirus 229E (PCR) Coronavirus NL63 (PCR) Human Metapneumovir PCR Influenza A (H3) PCR Influenza Type B (PCR) M. pneumoniae (PCR) Parainfluenza 1 (PCR) Parainfluenza 2 (PCR) Parainfluenza 3 (PCR) Parainfluenza 4 (PCR) RSV (PCR) Entero/Rhino (PCR) 05/31/17 05/31/17 05/31/17 00:01 04:44 04:44 WBC 13.5 H RBC 3.90 L Hgb 11.6 L Hct 38.0 L MCV 97.4 MCH 29.7 MCHC 30.5 L RDW Std Deviation 46.7 Plt Count 87 L MPV TNP Immature Gran % (Auto) Not performed Neut % (Auto) Not performed Lymph % (Auto) Not performed [place] % (Auto) Not performed Eos % (Auto) Not performed Baso % (Auto) Not performed Neut # (Auto) Not performed Lymph # (Auto) Not performed [place] # (Auto) Not performed Eos # (Auto) Not performed Baso # (Auto) Not performed Abs Immat Gran (auto) Not performed Neutrophils % (Manual) 94.0 H Lymphocytes % (Manual) 2.0 L Monocytes % (Manual) 4.0 Neutrophils # (Manual) 12.7 H Lymphocytes # (Manual) 0.3 L Monocytes # (Manual) 0.5 RBC Morph Comment Normal Turbidity < 20 Sodium 143 Potassium 4.7 Chloride 107 Carbon Dioxide 31 H Anion Gap 5 BUN 48.0 H Creatinine 0.6 L GFR Calculation 137 BUN/Creatinine Ratio 80 H Glucose 292 H Glucometer 324 Calculated Osmolality 299 H Calcium 8.0 L Phosphorus 2.6 Magnesium 2.5 H Total Bilirubin Icterus Index < 2 AST ALT Alkaline Phosphatase Total Protein Albumin 2.5 L Globulin Albumin/Globulin Ratio Specimen Hemolysis < 15 Adenovirus (PCR) B.parapertussis DNA PCR C. pneumoniae DNA (PCR) Coronavirus OC43 (PCR) Coronavirus HKU1 (PCR) Coronavirus 229E (PCR) Coronavirus NL63 (PCR) Human Metapneumovir PCR Influenza A (H3) PCR Influenza Type B (PCR) M. pneumoniae (PCR) Parainfluenza 1 (PCR) Parainfluenza 2 (PCR) Parainfluenza 3 (PCR) Parainfluenza 4 (PCR) RSV (PCR) Entero/Rhino (PCR) 05/31/17 06:02 WBC RBC Hgb Hct MCV MCH MCHC RDW Std Deviation Plt Count MPV Immature Gran % (Auto) Neut % (Auto) Lymph % (Auto) [place] % (Auto) Eos % (Auto) Baso % (Auto) Neut # (Auto) Lymph # (Auto) [place] # (Auto) Eos # (Auto) Baso # (Auto) Abs Immat Gran (auto) Neutrophils % (Manual) Lymphocytes % (Manual) Monocytes % (Manual) Neutrophils # (Manual) Lymphocytes # (Manual) Monocytes # (Manual) RBC Morph Comment Turbidity Sodium Potassium Chloride Carbon Dioxide Anion Gap BUN Creatinine GFR Calculation BUN/Creatinine Ratio Glucose Glucometer 300 Calculated Osmolality Calcium Phosphorus Magnesium Total Bilirubin Icterus Index AST ALT Alkaline Phosphatase Total Protein Albumin Globulin Albumin/Globulin Ratio Specimen Hemolysis Adenovirus (PCR) B.parapertussis DNA PCR C. pneumoniae DNA (PCR) Coronavirus OC43 (PCR) Coronavirus HKU1 (PCR) Coronavirus 229E (PCR) Coronavirus NL63 (PCR) Human Metapneumovir PCR Influenza A (H3) PCR Influenza Type B (PCR) M. pneumoniae (PCR) Parainfluenza 1 (PCR) Parainfluenza 2 (PCR) Parainfluenza 3 (PCR) Parainfluenza 4 (PCR) RSV (PCR) Entero/Rhino (PCR) - Diagnostic Findings Chest x-ray: image reviewed (no new cxr) Assessment and Plan - Assessment and Plan Acute on Chronic Hypoxic Hypercapnic Respiratory Failure LLL mass 2.2 cm - plan OP biopsy COPD exacerbation Influenza Chest Pain/Wide complex tachycardia s/p cardioversion CAD s/p stent ANGELLA/[facility]HS Morbid Obesity Thrombocytopenia - resolved Plan: Pt currently on O2 at 3L per NC and tarik well, 95%. Using bipap qHs and prn f15, 01/12, 35%. Cont on Bt's with q4hr, pulmicort BID and solumedrol 60 q12, slight wheezing noted. + Influenza now on tamiflu, follow. Cont on brilinta per CV, lasix 20mg daily, no new CXR. Pt doing very well, ok to transfer to floor per pulm. - Time Spent With Patient Total time spent is greater than 50% in coordination of care (as documented) at patient's floor/unit and/or counseling patient: less than 15 minutes
--- NOTE | 2017-05-31 13:34 | Cardiology Progress Note ---
<Andreina Grijalva M - Last Filed: 05/31/17 18:37> Subjective Principal diagnosis: SOB, respiratory failure Interval history: Howard is seen in follow up for chest pain and NSTEMI. He is in his room on the Medical floor. He is alert but is restless and repeats "Tell her about the bird " over and over. He denies chest pain, palpitations, or other cardiac complaints. Exam Vital signs: Temperature 96.9 F 05/31/17 13:00 Pulse Rate 69 05/31/17 12:00 Respiratory Rate 40 H 05/31/17 13:00 Blood Pressure 154/80 H 05/31/17 13:00 Pulse Oximetry 96 05/31/17 13:00 Inpatient Medications: Generic Name Dose Route Start Last Admin Trade Name Freq PRN Reason Stop Dose Admin Acetaminophen 325 - 650 mg 05/17/17 10:08 05/26/17 20:58 Tylenol PO 650 mg Q5H PRN Administration Discomfort Hydrocodone Bitart/Acetaminophen 1 tab 05/17/17 10:14 [place] 7.5/325 PO Q6H PRN Pain Al Hydroxide/Mg Hydroxide 30 ml 05/28/17 09:24 Maalox Plus PO Q3H PRN Indigestion Albuterol/Ipratropium 3 ml 05/17/17 10:11 Duoneb AEROSOL RTQID PRN Albuterol/Ipratropium 3 ml 05/21/17 15:15 05/31/17 11:28 Duoneb AEROSOL 3 ml Q4H [facility] Administration Amlodipine Besylate 10 mg 05/24/17 13:46 05/31/17 08:42 Norvasc PO 10 mg DAILY [facility] Administration Aspirin 81 mg 05/28/17 09:24 05/31/17 08:46 Ecotrin PO Not Given DAILY [facility] Atenolol 25 mg 05/29/17 09:00 05/31/17 08:42 Tenormin PO 25 mg BID [facility] Administration Atorvastatin Calcium 80 mg 05/28/17 21:00 05/30/17 21:20 Lipitor PO 80 mg HS [facility] Administration Bisacodyl 10 mg 05/27/17 15:11 Dulcolax RECTALLY DAILY PRN Constipation Bisacodyl 5 - 10 mg 05/28/17 09:24 Dulcolax PO DAILY PRN Constipation Budesonide 0.5 mg 05/17/17 19:00 05/31/17 07:30 Pulmicort Inhalation AEROSOL 0.5 mg RTBID [facility] Administration Bupropion HCl 150 mg 05/17/17 21:00 05/31/17 08:41 Wellbutrin Sr PO 150 mg BID [facility] Administration Citalopram Hydrobromide 40 mg 05/18/17 09:00 05/31/17 08:43 Celexa PO 40 mg DAILY [facility] Administration Clonidine HCl 0.1 mg 05/22/17 09:00 05/29/17 08:01 Catapres-Tts 1 TD 0.1 mg Q7D@0900 [facility] Administration Clonidine HCl 1 removal 05/29/17 08:59 05/29/17 08:13 Catapres Patch Removal TD 1 removal Q7D [facility] Administration Gabapentin 300 mg 05/17/17 15:00 05/31/17 08:43 Neurontin PO 300 mg TID [facility] Administration Glucose 37.5 gm 05/17/17 10:12 Glutose 15 PO PRN PRN Hypoglycemia Guaifenesin 400 mg 05/29/17 12:00 05/31/17 06:11 Robitussin Liq PO 400 mg Q6H [facility] Administration Hydralazine HCl 10 mg 05/22/17 15:01 05/28/17 06:06 Apresoline IVP 10 mg Q4H PRN Administration Hypertension Insulin Aspart 2 - 14 unit 05/21/17 11:43 05/31/17 12:37 Novolog SQ 4 unit SS PRN Administration Hyperglycemia Protocol Insulin Aspart 12 unit 05/31/17 08:41 05/31/17 10:50 Novolog SQ 12 unit Q6H [facility] Administration Insulin Glargine 50 unit 05/31/17 08:41 Lantus SQ HS [facility] Lisinopril 10 mg 05/24/17 16:15 05/31/17 08:42 Prinivil PO 10 mg DAILY [facility] Administration Lorazepam 0.5 - 1 mg 05/28/17 09:24 Ativan PO Q4H PRN Anxiety Magnesium Hydroxide 30 ml 05/28/17 09:24 Mom PO DAILY PRN Constipation Methylprednisolone Sodium Succinate 60 mg 05/29/17 21:00 05/31/17 08:43 Solu-Medrol IVP 60 mg Q12HR [facility] Administration Metoclopramide HCl 5 mg 05/30/17 14:00 05/31/17 08:41 Reglan GT 5 mg Q6H [facility] Administration Morphine Sulfate 2 - 4 mg 05/28/17 09:24 Morphine Sulfate Inj IVP Q5M PRN Angina Omeprazole 40 mg 05/18/17 06:30 05/31/17 06:16 Prilosec PO 40 mg ACB [facility] Administration Ondansetron HCl 4 mg 05/28/17 09:24 Zofran IVP Q6H PRN Nausea &/or vomiting Oseltamivir Phosphate 75 mg 05/29/17 21:00 05/31/17 08:44 Tamiflu 06/03/17 09:01 75 mg BID [facility] Administration Sodium Chloride 10 - 80 ml 05/17/17 05:20 05/30/17 21:35 Iv Flush IVF 10 ml PRN PRN Administration Flushing Sodium Chloride 1 spray 05/19/17 11:42 05/19/17 16:37 Deep Sea Nasal Moisturizing [place] EA NOSTRIL 1 spray PRN PRN Administration Congestion Sodium Chloride 500 ml 05/25/17 21:40 05/25/17 21:52 Normal Saline IV 500 ml PRN PRN Administration Ticagrelor 90 mg 05/28/17 21:01 05/31/17 08:41 Brilinta PO 90 mg Q12H [facility] Administration Discontinued Medications Generic Name Dose Route Start Last Admin Trade Name Freq PRN Reason Stop Dose Admin Acetaminophen 650 mg 05/21/17 15:10 Tylenol Supp MD Q5H PRN Pain Acetaminophen 325 - 650 mg 05/28/17 09:24 Tylenol PO Q5H PRN Pain Hydrocodone Bitart/Acetaminophen 1 tab 05/17/17 21:00 05/31/17 08:42 [place] 7.5/325 PO 1 tab BID [facility] Administration Hydrocodone Bitart/Acetaminophen 1 - 2 tab 05/28/17 09:24 [place] 5/325 PO Q5H PRN Pain Acetazolamide 500 mg 05/19/17 10:51 05/19/17 11:25 Diamox PO 05/19/17 10:52 500 mg O ONE Administration Adenosine 12 mg 05/21/17 09:17 05/21/17 08:50 Adenocard IVP 05/21/17 09:18 12 mg O ONE Administration Adenosine 6 mg 05/21/17 09:18 05/21/17 09:23 Adenocard IVP 05/21/17 09:19 6 mg O ONE Administration Albuterol/Ipratropium 6 ml 05/17/17 05:19 05/17/17 05:33 Duoneb AEROSOL 05/17/17 05:20 6 ml O ONE Administration Albuterol/Ipratropium 3 ml 05/17/17 11:00 05/21/17 18:22 Duoneb AEROSOL Not Given RTQID [facility] Aspirin 81 mg 05/18/17 09:00 05/23/17 08:26 Asa PO Not Given DAILY [facility] Aspirin 81 mg 05/22/17 16:00 05/31/17 08:42 Asa GT 81 mg DAILY [facility] Administration Atenolol 25 mg 05/18/17 09:00 05/24/17 08:58 Tenormin PO 25 mg DAILY [facility] Administration Atenolol 50 mg 05/25/17 09:00 05/28/17 12:30 Tenormin PO Not Given DAILY [facility] Atenolol 25 mg 05/24/17 09:40 05/24/17 11:09 Tenormin PO 05/24/17 09:41 25 mg O ONE Administration Atropine Sulfate 0.5 mg 05/28/17 09:24 Atropine IVP Q5M PRN Bradycardia Benzocaine 1 lozenge 05/20/17 18:54 Cepacol Sore Throat Lozenge MM Q2HR PRN Sore throat Bisacodyl 10 mg 05/28/17 09:24 Dulcolax RECTALLY DAILY PRN Constipation Bivalirudin 250 mg 05/24/17 14:15 Angiomax IV NOW [facility] Enoxaparin Sodium 1 each 05/18/17 10:47 05/18/17 12:54 Pharmacy Consult - Lovenox MC 05/18/17 10:48 1 each O ONE Administration Enoxaparin Sodium 50 mg 05/18/17 11:45 05/20/17 08:37 Lovenox SQ 50 mg DAILY [facility] Administration Enoxaparin Sodium 142 mg 05/27/17 17:00 05/28/17 09:34 Lovenox SQ 142 mg DAILY [facility] Administration Furosemide 20 mg 05/18/17 09:00 05/20/17 08:37 Lasix PO 20 mg DAILY [facility] Administration Furosemide 40 mg 05/21/17 09:37 05/21/17 09:45 Lasix IVP 05/21/17 09:38 40 mg ONCE ONE Administration Furosemide 20 mg 05/23/17 21:00 05/24/17 08:59 Lasix IVP 20 mg Q12HR [facility] Administration Furosemide 20 mg 05/24/17 17:00 05/27/17 09:31 Lasix IVP 20 mg Q8HR [facility] Administration Furosemide 20 mg 05/27/17 21:00 05/29/17 08:09 Lasix IVP 20 mg Q12H [facility] Administration Furosemide 20 mg 05/29/17 09:00 Lasix IVP DAILY [facility] Guaifenesin 1,200 mg 05/18/17 09:00 05/29/17 08:14 Mucinex La PO Not Given BID [facility] Heparin Sodium (Beef Lung) 5,000 unit 05/21/17 09:23 05/21/17 10:07 Heparin Bolus IVP 05/21/17 09:24 5,000 unit O ONE Administration Heparin Sodium (Beef Lung) 3,000 unit 05/21/17 17:45 05/21/17 17:53 Heparin Bolus IVP 05/21/17 17:46 3,000 unit O ONE Administration Heparin Sodium (Beef Lung) 3,000 unit 05/22/17 03:37 05/22/17 03:46 Heparin Bolus IVP 05/22/17 03:38 3,000 unit O ONE Administration Heparin Sodium (Porcine) 1 each 05/21/17 09:08 Pharmacy Consult - Heparin 05/21/17 09:09 ONE TIME ONE Hydralazine HCl 5 mg 05/22/17 08:47 05/22/17 10:09 Apresoline IVP 5 mg Q6H PRN Administration Hypertension Sodium Chloride 1,000 mls @ 999.9 mls/hr 05/17/17 05:44 05/17/17 11:20 Normal Saline IV 05/17/17 06:43 Infused .Q1H ONE Infusion Sodium Chloride 1,000 mls @ 75 mls/hr 05/17/17 10:08 05/19/17 11:19 Normal Saline IV Infused .[id number] [facility] Infusion Ceftriaxone Sodium 2 gm/ 100 mls @ 200 mls/hr 05/18/17 01:15 05/18/17 01:50 Sodium Chloride IV Infused Q24H [facility] Infusion Ceftriaxone Sodium 2 gm/ 50 mls @ 100 mls/hr 05/18/17 21:00 05/20/17 21:55 Sodium Chloride IV Infused Q24H [facility] Infusion Heparin Sodium (Porcine) 20,000 unit in 500 mls @ 44 mls/hr 05/21/17 09:30 13:17 Heparin Drip IV Infused .[id number] [facility] Titration Protocol Dexmedetomidine HCl 200 mcg/ 52 mls @ 6.87 mls/hr 05/21/17 09:52 05/21/17 20: 00 Sodium Chloride IV 05/21/17 20:29 0 mcg/kg/hr .Q7H35M PRN 0 mls/hr Protocol Titration 0.2 MCG/KG/HR Propofol 1,000 mg in 100 mls @ 3.969 mls/hr 05/21/17 10:39 05/21/17 14:28 Diprivan IV 0 mcg/kg/min .Q24H PRN 0 mls/hr Protocol Infusion 5 MCG/KG/MIN Fentanyl 1,000 mcg/ Sodium 100 mls @ 0 mls/hr 05/21/17 13:02 05/27/17 14:45 Chloride IV Infused .Q0M PRN Titration Protocol Per Protocol Sodium Chloride 250 mls @ 999.9 mls/hr 05/21/17 13:15 05/21/17 14:28 Normal Saline IV 05/21/17 13:29 Infused .Q15M [facility] Infusion Cefepime HCl 1 gm/ Sodium 50 mls @ 100 mls/hr 05/21/17 15:30 05/29/17 10:46 Chloride IV Infused Q6H [facility] Infusion Levofloxacin/Dextrose 750 mg in 150 mls @ 100 mls/hr 05/21/17 16:00 05/28/17 17:15 Levaquin Premix IV Infused Q24H [facility] Infusion Vancomycin HCl 1,500 mg/ 500 mls @ 250 mls/hr 05/21/17 18:00 05/24/17 12:15 Sodium Chloride IV Infused Q8H [facility] Infusion Dexmedetomidine HCl 1,000 mcg/ 260 mls @ 6.87 mls/hr 05/21/17 20:30 05/27/17 14:45 Sodium Chloride IV 05/27/17 14:45 Infused .Q24H PRN Titration Protocol 0.2 MCG/KG/HR Potassium Chloride 10 meq in 100 mls @ 100 mls/hr 05/23/17 09:45 05/23/17 17: 34 Potassium Chloride Premix IV 05/23/17 13:44 Infused Q1H [facility] Infusion Heparin Sodium (Porcine) 20,000 unit in 500 mls @ 45 mls/hr 05/23/17 16:00 06:16 Heparin Drip IV Not Given .Q11H7M [facility] Protocol Potassium Chloride 10 meq in 100 mls @ 100 mls/hr 05/24/17 09:45 05/24/17 15: 56 Potassium Chloride Premix IV 05/24/17 13:44 Not Given Q1H [facility] Potassium Chloride 10 meq/ 105 mls @ 105 mls/hr 05/24/17 11:45 05/24/17 17:00 Sodium Chloride IV 05/24/17 15:44 Infused Q1H [facility] Infusion Bivalirudin 250 mg/ Sodium 500 mls @ 43.2 mls/hr 05/24/17 15:15 05/27/17 17: 34 Chloride IV Not Given .[id number] [facility] Sodium Chloride 1,000 mls @ 75 mls/hr 05/28/17 07:45 05/28/17 14:00 Normal Saline IV Infused .[id number] [facility] Infusion Sodium Chloride 1,000 mls @ 500 mls/hr 05/30/17 10:14 05/30/17 10:41 Normal Saline IV 05/30/17 12:13 500 mls/hr .Q2H ONE Administration Sodium Chloride 1,000 mls @ 60 mls/hr 05/30/17 17:00 05/31/17 06:00 Normal Saline IV 05/31/17 09:39 60 mls/hr .[id number] [facility] Infusion Insulin Aspart 1 - 5 unit 05/17/17 10:12 05/18/17 06:06 Novolog SQ 2 unit SS PRN Administration Hyperglycemia Protocol Insulin Aspart 2 - 8 unit 05/18/17 08:22 05/21/17 07:30 Novolog SQ 3 unit SS PRN Administration Hyperglycemia Protocol Insulin Aspart 15 unit 05/20/17 10:32 05/20/17 10:36 Novolog SQ 05/20/17 10:33 15 unit ONE TIME ONE Administration Insulin Aspart 10 unit 05/26/17 12:00 05/26/17 13:54 Novolog SQ Not Given Q6H [facility] Insulin Aspart 10 unit 05/26/17 15:00 05/27/17 21:06 Novolog SQ Not Given 0300,0900,1500,2100 [facility] Insulin Aspart 10 unit 05/28/17 15:00 Novolog SQ Q6HR [facility] Insulin Aspart 10 unit 05/28/17 18:00 05/31/17 06:11 Novolog SQ 10 unit Q6H [facility] Administration Insulin Glargine 10 unit 05/21/17 21:00 05/21/17 20:14 Lantus SQ 10 unit HS [facility] Administration Insulin Glargine 20 unit 05/22/17 21:00 05/22/17 20:14 Lantus SQ 20 unit HS [facility] Administration Insulin Glargine 40 unit 05/23/17 21:00 05/30/17 21:34 Lantus SQ 40 unit HS [facility] Administration Labetalol HCl 10 mg 05/21/17 20:40 05/22/17 06:05 Trandate IVP 10 mg Q4H PRN Administration INCREASED blood pressure Lorazepam 1 mg 05/17/17 06:16 05/17/17 06:56 Ativan PO 05/17/17 06:17 1 mg O ONE Administration Lorazepam 0.5 mg 05/17/17 10:13 05/24/17 15:55 Ativan Inj IVP 0.5 mg Q6H PRN Administration Lorazepam 1 mg 05/24/17 19:46 05/31/17 01:43 Ativan Inj IVP 1 mg Q2H PRN Administration Agitation/Air hunger/Pain Lorazepam 0.5 - 1 mg 05/28/17 09:24 Ativan Inj IVP Q4H PRN Anxiety Magnesium Hydroxide 30 ml 05/26/17 12:41 05/26/17 13:53 Mom GT 05/26/17 12:42 30 ml O ONE Administration Menthol 1 lozenge 05/18/17 08:19 Ricola Sf MM PRN PRN Cough Metformin HCl 500 mg 05/17/17 17:30 05/18/17 10:00 Glucophage PO Not Given BIDWM [facility] Metformin HCl 500 mg 05/19/17 09:00 05/21/17 10:52 Glucophage PO Not Given BIDWM [facility] Methylprednisolone Sodium Succinate 125 mg 05/17/17 06:26 05/17/17 06:53 Solu-Medrol IM 05/17/17 06:27 125 mg O ONE Administration Methylprednisolone Sodium Succinate 125 mg 05/17/17 15:00 05/20/17 08:37 Solu-Medrol IVP 125 mg Q6HR [facility] Administration Methylprednisolone Sodium Succinate 80 mg 05/20/17 15:00 05/24/17 08:57 Solu-Medrol IVP 80 mg Q6HR [facility] Administration Methylprednisolone Sodium Succinate 80 mg 05/24/17 17:00 05/26/17 08:23 Solu-Medrol IVP 80 mg Q8HR [facility] Administration Methylprednisolone Sodium Succinate 80 mg 05/26/17 21:00 05/29/17 08:15 Solu-Medrol IVP 80 mg Q12HR [facility] Administration Metoclopramide HCl 5 mg 05/23/17 17:30 05/30/17 10:42 Reglan GT 5 mg Q6H [facility] Administration Metoclopramide HCl 5 - 10 mg 05/28/17 09:24 Reglan IVP Q6H PRN Nausea &/or vomiting Metoprolol Tartrate 15 mg 05/21/17 09:18 05/21/17 09:05 Lopressor IVP 05/21/17 09:19 15 mg ONCE ONE Administration Metoprolol Tartrate 5 mg 05/28/17 10:01 05/28/17 10:00 Lopressor IVP 05/28/17 10:02 5 mg ONCE ONE Administration Morphine Sulfate 1 - 2 mg 05/17/17 10:08 05/24/17 17:56 Morphine Sulfate Inj IVP 2 mg Q2H PRN Administration Pain Morphine Sulfate 2 - 4 mg 05/28/17 09:24 05/28/17 10:17 Morphine Sulfate Inj IVP 05/29/17 09:23 4 mg Q2H PRN Administration Pain Nitroglycerin 0.4 mg 05/17/17 10:14 05/21/17 08:35 Nitrostat SL 0.4 mg Q5MIN3 PRN Administration CP Nitroglycerin 0.4 mg 05/28/17 09:24 Nitrostat SL Q5M PRN Angina --Pom--(Itraconazole 200 mg 05/17/17 21:00 05/29/17 09:39 [Itraconazole] 200 PO Not Given Mg) BID [facility] Ondansetron HCl 4 mg 05/17/17 10:08 05/19/17 02:45 Zofran IVP 4 mg Q6H PRN Administration Nausea &/or vomiting Pantoprazole Sodium 40 mg 05/22/17 09:00 05/31/17 08:44 Protonix Iv IVP 40 mg DAILY [facility] Administration Pharmacy Consult 1 each 05/17/17 10:32 Pharmacy Consult - Fall Risk XX 05/17/17 10:33 ONE TIME ONE Pharmacy Consult 1 each 05/27/17 10:17 Pharmacy Consult - Fall Risk XX 05/27/17 10:18 ONE TIME ONE Potassium Chloride 40 meq 05/24/17 18:10 05/26/17 06:13 Kcl Oral Liq 20 Meq/15 Ml PO Not Given BIDWM [facility] Potassium Chloride 40 meq 05/25/17 13:00 05/26/17 08:22 Kcl Oral Liq 20 Meq/15 Ml PO 40 meq QID [facility] Administration Potassium Chloride 40 meq 05/26/17 12:00 05/27/17 12:04 Kcl Oral Liq 20 Meq/15 Ml PO 40 meq TIDWM [facility] Administration Potassium Chloride 40 meq 05/27/17 17:30 05/29/17 07:59 Kcl Oral Liq 20 Meq/15 Ml PO 40 meq BIDWM [facility] Administration Potassium Chloride 40 meq 05/29/17 09:00 05/30/17 08:42 Kcl Oral Liq 20 Meq/15 Ml PO 40 meq DAILY [facility] Administration Promethazine HCl 12.5 - 25 mg 05/28/17 09:24 Phenergan Inj IVP Q6HR PRN Nausea &/or vomiting Simvastatin 20 mg 05/17/17 21:00 05/27/17 20:36 Zocor PO Not Given HS [facility] Vancomycin HCl 1 each 05/21/17 15:19 05/21/17 15:53 Pharmacy Consult - Vancomycin MC 05/21/17 15:20 1 each O ONE Administration - Constitutional no acute distress, well nourished, cooperative - Routine HEENT Exam Head: Present: normocephalic ENT: Present: mucous membranes moist - Routine Neck Exam Absent: JVD, carotid bruit - Routine Chest/Breast/Axilla Exam Chest wall: Absent: tenderness - Routine Respiratory Exam Present: decreased breath sounds. Absent: CTA bilaterally - Routine Cardiovascular Exam Present: RRR, no murmur - Routine Abdominal Exam Present: soft, normoactive bowel sounds - Routine Extremities Exam Present: edema - Routine Skin Exam Present: intact, dry, warm - Routine Neurological Exam Present: alert - Routine Psychiatric Exam Present: normal affect - Additional findings Additional findings: Acetaminophen (Tylenol) 325 - 650 mg PO Q5H PRN PRN Reason: Discomfort Last Admin: 05/26/17 20:58 Dose: 650 mg Hydrocodone Bitart/Acetaminophen ([place] 7.5/325) 1 tab PO Q6H PRN PRN Reason: Pain Al Hydroxide/Mg Hydroxide (Maalox Plus) 30 ml PO Q3H PRN PRN Reason: Indigestion Albuterol/Ipratropium (Duoneb) 3 ml AEROSOL RTQID PRN Albuterol/Ipratropium (Duoneb) 3 ml AEROSOL Q4H [facility] Last Admin: 05/31/17 16:15 Dose: Not Given Amlodipine Besylate (Norvasc) 10 mg PO DAILY [facility] Last Admin: 05/31/17 08:42 Dose: 10 mg Aspirin (Ecotrin) 81 mg PO DAILY [facility] Last Admin: 05/31/17 08:46 Dose: Not Given Atenolol (Tenormin) 25 mg PO BID [facility] Last Admin: 05/31/17 08:42 Dose: 25 mg Atorvastatin Calcium (Lipitor) 80 mg PO HS [facility] Last Admin: 05/30/17 21:20 Dose: 80 mg Bisacodyl (Dulcolax) 10 mg RECTALLY DAILY PRN PRN Reason: Constipation Bisacodyl (Dulcolax) 5 - 10 mg PO DAILY PRN PRN Reason: Constipation Budesonide (Pulmicort Inhalation) 0.5 mg AEROSOL RTBID [facility] Last Admin: 05/31/17 07:30 Dose: 0.5 mg Bupropion HCl (Wellbutrin Sr) 150 mg PO BID [facility] Last Admin: 05/31/17 08:41 Dose: 150 mg Citalopram Hydrobromide (Celexa) 40 mg PO DAILY [facility] Last Admin: 05/31/17 08:43 Dose: 40 mg Clonidine HCl (Catapres-Tts 1) 0.1 mg TD Q7D@0900 [facility] Last Admin: 05/29/17 08:01 Dose: 0.1 mg Clonidine HCl ([place]ap[place] Patch Removal) 1 removal TD Q7D [facility] Last Admin: 05/29/17 08:13 Dose: 1 removal Gabapentin (Neurontin) 300 mg PO TID [facility] Last Admin: 05/31/17 15:43 Dose: 300 mg Glucose (Glutose 15) 37.5 gm PO PRN PRN PRN Reason: Hypoglycemia Guaifenesin (Robitussin Liq) 400 mg PO Q6H [facility] Last Admin: 05/31/17 12:55 Dose: 400 mg Hydralazine HCl (Apresoline) 10 mg IVP Q4H PRN PRN Reason: Hypertension Last Admin: 05/28/17 06:06 Dose: 10 mg Insulin Aspart (Novolog) 2 - 14 unit SQ SS PRN; Protocol PRN Reason: Hyperglycemia Last Admin: 05/31/17 12:37 Dose: 4 unit Insulin Aspart (Novolog) 12 unit SQ Q6H [facility] Last Admin: 05/31/17 15:43 Dose: 12 unit Insulin Glargine (Lantus) 50 unit SQ HS [facility] Lisinopril (Prinivil) 20 mg PO DAILY [facility] Lorazepam (Ativan) 0.5 - 1 mg PO Q4H PRN PRN Reason: Anxiety Magnesium Hydroxide (Mom) 30 ml PO DAILY PRN PRN Reason: Constipation Methylprednisolone Sodium Succinate (Solu-Medrol) 60 mg IVP Q12HR [facility] Last Admin: 05/31/17 08:43 Dose: 60 mg Metoclopramide HCl (Reglan) 5 mg GT Q6H [facility] Last Admin: 05/31/17 15:42 Dose: 5 mg Morphine Sulfate (Morphine Sulfate Inj) 2 - 4 mg IVP Q5M PRN PRN Reason: Angina Omeprazole (Prilosec) 40 mg PO ACB [facility] Last Admin: 05/31/17 06:16 Dose: 40 mg Ondansetron HCl (Zofran) 4 mg IVP Q6H PRN PRN Reason: Nausea &/or vomiting Oseltamivir Phosphate (Tamiflu) 75 mg BID [facility] Stop: 06/03/17 09:01 Last Admin: 05/31/17 08:44 Dose: 75 mg Sodium Chloride (Iv Flush) 10 - 80 ml IVF PRN PRN PRN Reason: Flushing Last Admin: 05/30/17 21:35 Dose: 10 ml Sodium Chloride (Deep Sea Nasal Moisturizing [place]) 1 spray EA NOSTRIL PRN PRN PRN Reason: Congestion Last Admin: 05/19/17 16:37 Dose: 1 spray Sodium Chloride (Normal Saline) 500 ml IV PRN PRN Last Admin: 05/25/17 21:52 Dose: 500 ml Ticagrelor (Brilinta) 90 mg PO Q12H [facility] Last Admin: 05/31/17 08:41 Dose: 90 mg - Urinary Catheter Management Urethral Cath placed during this visit: yes Insertion date: 05/21/17 Results 05/31/17 04:44 05/31/17 04:44 CBC 05/31/17 Range/Units 04:44 WBC 13.5 H (4.5-11.0) T/MM3 RBC 3.90 L (4.50-5.90) M/MM3 Hgb 11.6 L (13.5-17.5) GM/DL Hct 38.0 L (41-53) % Plt Count 87 L (130-400) T/MM3 Neut # (Auto) Not performed Lymph # (Auto) Not performed [place] # (Auto) Not performed Eos # (Auto) Not performed Baso # (Auto) Not performed Comprehensive Metabolic Panel 05/31/17 Range/Units 04:44 Sodium 143 (134-144) MEQ/L Potassium 4.7 (3.6-5) MEQ/L Chloride 107 (98-107) MEQ/L Carbon Dioxide 31 H (22-30) MEQ/L BUN 48.0 H (9-20) MG/DL Creatinine 0.6 L (0.8-1.5) MG/DL Glucose 292 H (75-110) MG/DL Calcium 8.0 L (8.4-10.2) MG/DL Albumin 2.5 L (3.5-5.0) G/DL Intake and Output 05/30/17 05/31/17 05/31/17 22:59 06:59 14:59 Intake Total 1281 / 1281 1490 / 1490 730 / 730 Output Total 475 / 475 595 / 595 450 / 450 Balance 806 / 806 895 / 895 280 / 280 Intake: IV 281 / 281 480 / 480 Ns 1,000 ml @ 60 mls/hr IV . 281 / 281 480 / 480 [id number] [facility] Rx#:[id number] Oral 240 / 240 Tube Feeding 480 / 480 480 / 480 420 / 420 Oral 480 / 480 480 / 480 420 / 420 Intake, Gastric Tube Irrigant 280 / 280 530 / 530 310 / 310 Amount Oral 280 / 280 530 / 530 310 / 310 Output: Urine Amount (Catheter) 475 / 475 595 / 595 450 / 450 Other: Urine Appearance Clear Clear Clear Urine Color Light Sofya Light Sofya Yellow Weight 293 lb 14.019 oz Patient Weight 06/01/17 06:59 Weight 293 lb 14.019 oz Assessment and Plan - Assessment and Plan (1) Chest pain Current visit: Yes Status: Acute (2) Community acquired pneumonia Current visit: No Status: Acute (3) Acute and chronic respiratory failure with hypercapnia Current visit: Yes Status: Acute (4) Atherosclerotic heart disease of [place] coronary artery without angina pectoris Current visit: Yes Status: Chronic (5) Essential (primary) hypertension Current visit: Yes Status: Chronic (6) Type 2 diabetes mellitus without complications Current visit: Yes Status: Chronic (7) Obesity (BMI 30-39.9) Current visit: Yes Status: Chronic (8) ANGELLA (obstructive sleep apnea) Current visit: Yes Status: Chronic (9) NSTEMI (non-ST elevated myocardial infarction) Current visit: Yes Status: Acute - Assessment and Plan 05/21/17 Reportedly had severe chest pain, was johnson and diaphoretic as well as tachypneic followed by decreased LOC. - HR 140s, sinus tach vs. A flutter - Given Adenosine 6mg IVP, followed by 12mg X2 without slowing HR. - Sedation given and attempted DCCV which was unsuccessful. - Following 2nd dose of Metoprolol 5mg IV heart rate slowed enough to confirm it is Sinus tachycardia. - Repeat EKG obtained, started on Heparin drip. - Trend Troponin - 2D echo - CTA for emboli/ dissection 05/22/17 NSTEMI: - Troponin: 1) 0.015, 2) 1.500, 3) 3.090, 4) 2.100 - EKG: SR, anterolateral ischemia V3-V6, inferior ischemia II/aVf - Left heart cath when more stable - Continue Heparin drip. HTN: Catapress TTS 1 patch while NPO - Hydralazine prn as ordered - Labetalol prn, hold HR <65 05/23/17 BP improving - EKG now please 05/24/17 Stop Heparin drip, get HIT panel Spoke with pharmacy, start Angiomax at 0.15mg/kg/hr (21.6mg/hr) until HIT panel resulted. Continues to have ST depression on Telemetry and EKG. Add Amlodipine 10mg per OG tube for better BP control 05/27/17 - Plan left heart cath with possible PCI in the am - Stop Angiomax drip - Give Lovenox 1mg/kg SQ tonight - Watch platelets closely 05/29/17 He had a left heart cath yesterday with successful primary stents of LAD using a 2.75 x 18 and another 2.75 x 18 drug-eluting Resolute [place] stents. - Aspirin 81mg daily, Brilinta 90mg BID for dual antiplatelet therapy - Change Simvastatin to Atorvastatin 80mg at HS - Continue to Hold Metformin - Change Atenolol 50mg daily to 25mg BID - Decrease IV Lasix to daily and K+ to daily as BUN is rising and is post cath. 05/30/17 BP remains variable. Consider changing Catapres to an oral agent tomorrow Thank you for allowing us to participate in the care of this patient, we will follow along with you. 05/31/17 Increase Lisinopril to 20mg daily, give additional 10mg now - Leave Catapres as ordered for now Hospital Course Summary Disclaimer: The visit summary below is not to be considered part of the above Progress Note. Hospital Course: 05/17/17 Admission Admit to observation status under the care of Dr. Lopez. Sepsis work up initiated in ED. Patient meeting SIRS criteria based on tachycardia, tachypnea and reported fevers at home without obvious source. Initial lactate was 1.4 with repeat lactate decreased to 0.9. Blood cultures pending. WBC stable at 5.0. CXR revealed left basilar scarring without focal pneumonia. Respiratory panel was negative. Patient was given DuoNeb treatments and Solu-Medrol 125mg IV in ED. Will continue respiratory care with DuoNeb treatments QID and Q6H PRN as well as Solu -Medrol 125mg IV Q6H. History of diabetes with A1c on 04/17/17 at 6.4%. Continue home medications and monitor blood sugars closely given treatment with steroids. Sliding scale insulin as indicated for hyperglycemia. Patient was placed on BiPAP in ED with improvement. Continue BiPAP as indicated. Ativan as needed for anxiety and agitation while on BiPAP. Will monitor closely on telemetry with continuous pulse oximetry. Oxygen as needed to maintain SAO2 between 90-95%, weaning as able to baseline of 5L. SCDs for DVT prophylaxis. Given sudden onset of dyspnea, will obtain CT angio chest for further evaluation of PE - results pending. NS at 100cc/hr for hydration given decreased oral intake as on BiPAP. Monitor daily weight closely for signs of fluid overload. Recheck labs in AM to monitor blood counts, electrolytes and renal function. Patient wishes to maintain FULL CODE status. Upon discharge, patient's care will be returned to his PCP, Dr. Odom. 05/18/17 Don reports that his breathing is a little better today and is he is more alert. New cough with sputum production. 1 of the 2 blood cultures obtained on admission is POSITIVE for Streptococcus. Night telehospitalist was notified and Rocephin 2g IV Q24 hours was initiated for antimicrobial coverage. Given new cough, will try and obtain a sputum culture. Mucinex for mucolytic effect. Ricola for cough. Continue respiratory care including nebulized treatments. Continue to encourage BiPAP as indicated and supplemental oxygen to maintain SAO2 between 90 -95%. Wean oxygen to baseline of 5L as able. Given sudden onset of dyspnea, CT angio chest was obtained and revealed no PE but did note 2.2cm left lower lobe pulmonary nodule raising concern for primary lung malignancy and recommended further evaluation. Will discuss consideration of pulmonary consult for further evaluation. Continue Solu-Medrol 125mg IV Q6 hours. Anticipate initiation of tapering in near future. Blood sugars remain elevated, most likely steroid effect, ranging from 160's-> 200. Continue sliding scale insulin. Given recent CT with contrast, will hold metformin and restart 05/19/17. Continue NS at 75cc/hr for hydration. Monitor urinary output and daily weight closely for signs of fluid over load. Oral intake is good. Consider discontinuation of fluids this afternoon. Ativan as needed for anxiety and agitation while on BiPAP. Troponins continue to trend up slowing - 0.015, 0.017, 0.029, 0.045 and 0.048 this morning. Will recheck troponin at 1030 and continue to monitor closely on telemetry. Patient denies chest pain. SCDs for DVT prophylaxis. Recheck labs in AM to monitor blood counts, electrolytes and renal function. Discussed at length with patient and family the importance of smoking cessation. He admits to wanting to stop smoking and inquired about initiation of Chantix. Continue Wellbutrin for smoking cessation. With BC positive and starting IV antibiotics, will change admission status to inpatient. Anticipate greater than 2 midnights of care needed. 05/19/17 Continue with Rocephin for antimicrobial coverage. With lungs still very tight and congested, will continue with Solu-Medrol 125mg IV q 6 hours. Continue Neb treatments and acapella. Encourage use of BiPAP as much as able to help his chronic hypercapnea. Stressed with about the importance of him not smoking. She understand. Will consult with Dr Ashby for pulm evaluation. Will discontinue IVF. May restart metformin this evening. Sugars with elevation secondary to steroids. Did give Diamox 500mg x1 this am for fluid motivation and to help minimize contraction alkalosis. PT/OT to evaluate and initiate treatment tomorrow for his significant pulmonary debility. 05/20 Continue with Rocephin for antimicrobial coverage. One blood culture was positive with streptococcus Viridans, Repeat BC were drawn this morning. Scheduled breathing tx, IV solu-medrol, as well as oxygen and Bipap Appreciate Dr Ashby consultation. Likely require bronchoscopy for biopsy of lung mass. Continue to monitor BGM remain elevated. Metformin was resumed as well as sliding scale insulin. Encourage PT/OT for strengthening 05/21 Resp failure --> ABG shows resp acidosis and he was placed on BiPAP with improvement in color. Repeat ABG shows pH 7.12, pCO2 106, pO2 185. CXR ordered. BG 230. Chest pain --> EKG shows ST changes and widened QRS, poss a-flutter; troponin pending. Dr. Govea consulted. He's had 2 NTG but remains very hypertensive with SBP 220s. Pt failed to respond to adenosine, and subseqently was cardioverted with conversion to sinus tach. Rapid response activated and Dr. Ramírez was at bedside x20 min. Transferred to CCU, where pt was met by Dr. Govea for evaluation. Continue treatment for resp status including steroids and Rocephin. 05/22 Patient remains on a ventilator requiring continuous sedation. Oxygenation borderline on 40% FiO2-oxygen flow increased to 60% by pulmonary earlier today. Continue triple antibiotics (cefepime, Levaquin, vancomycin) pending sputum culture due to extensive pneumonia on CT/chest x-ray yesterday-not present on initial films. Peak troponin 3.09 with diffuse T-wave changes; discussed with Dr. Govea and will require cardiac catheterization in the future. Continue heparin drip. Blood pressure is uncontrolled-clonidine patch initiated earlier, IV hydralazine added as needed for systolic pressures above 180. OG placed-resume statin, SSRI, atenolol, and aspirin. Assess gastric residuals today-anticipate beginning tube feedings tomorrow. Adequate urine output, continue to monitor. Blood sugars remain elevated, off metformin at present. Increase basal insulin. 05/23 Patient remains on a ventilator requiring continuous sedation. Continue triple antibiotics (cefepime, Levaquin, vancomycin); suspect aspiration pneumonia-sputum culture normal charly. Extensive infiltrates on CT chest. Repeat chest x-ray in a.m. Fluid balance positive-roughly 5 L over several days, weight up-diuresis today. Potassium supplemented IV earlier today. Peak troponin 3.09 with diffuse T-wave changes; discussed with Dr. Govea and will require cardiac catheterization in the future. Continue heparin drip. Blood pressure remains elevated but improved from yesterday with addition of clonidine patch and resumption of atenolol per OG. IV hydralazine available as needed for systolic pressures above 180. OG placed 05/22-low volume gastric output overnight and tolerating medications per OG. Will initiate tube feedings with low glycemic formula at 20 mL per hour overnight. Nutrition consult. Blood sugars remain elevated, off metformin at present and on steroids. Increase basal insulin to 40 units anticipating further increase in blood sugar with initiation of tube feedings. 05/24 Remains ventilator dependent. Steroids decreased. Vancomycin discontinued, continue Levaquin and cefepime for probable aspiration pneumonia and Streptococcus viridans positive blood culture. Continue diuresis, blood pressures elevated-atenolol increased and lisinopril initiated to improve control. Tolerating tube feedings at low-volume, converted pulmonary formula with goal of 80 mL per hour. Platelet count dropping, heparin discontinued and bivalirudin initiated. 05/25 Tolerating spontaneous breathing trial, steroids decreased. Continues to require continuous sedation. Lisinopril increased to 20 mg to improve blood pressure control. Platelet count down to 100K; HIT Ab pending. Fevers overnight without evidence source, leukocytosis/left shift resolved improved. Lines to be cultured. 05/26 FiO2 titrated to 40%; diuresing well-continue same. Spontaneous breathing trial planned for the morning with possible extubation at that time. Cardiac status stable, no further tachyarrhythmias. Trend to improved blood pressures. Cardiac catheterization planned in the future. Remains on bivalirudin. Platelet count 86K today, HIT Ab pending. Tube feedings at goal, blood sugars significantly elevated-NovoLog scheduled every 6 hours and when necessary. Chest x-ray improved, remains on Levaquin and cefepime for probable aspiration pneumonia. Blood cultures drawn yesterday negative thus far. 05/27 Extubated this afternoon, OG discontinued in conjunction with extubation. CPAP initiated for respiratory support. Speech therapy, PT, OT consultations tomorrow. Anticipate significant reduction in fluid volume off sedating medications and tube feedings--> Lasix dose decreased to twice daily administration. Platelet count stabilizing, HIT Ab negative. Intermittent fever, remains on antibiotics for possible aspiration pneumonia. Repeat blood cultures negative. 05/29 Extubated 05/27 Placed on CPAP with home equipment. Baseline 5L Currently tolerating NC, oxygen support as needed to maintain sats and mentation , pulm consulted and following CXR-stable Leukocytosis-likely 2/2 steroid effect, PCT negative, no fever x48 hours Cefepime and Levaquin currently. Vanc discontinued 05/24. Likely d/c abx today. Will consult ID for abx recs Failed speech therapy Continue tube feeds and meds via [facility] Monitor fluid status-hold evening dose of lasix Peak troponin 3.09 on 05/21/17 with diffuse T-wave changes; heart cath 05/28-now on ASA and Bivalirudin Monitor platelet count-currently WNL Monitor BP, adjust medications as needed Monitor glucose and continue insulin as ordered Discussed with nursing staff, and infectious disease 05/30 Extubated 05/27, continue Bipap/NC as per pulm Weaning steroids CXR-improving Leukocytosis Cefepime, Levaquin, Vanc discontinued Continue Tamiflu Failed speech therapy, continue to re-eval Continue tube feeds and meds via [facility], feeds at 40ml/hr, goal of 80ml/hr Discontinue lasix, give 1L NS and re-eval fluid status Continue ASA and Bivalirudin per cardiology Trend labs <Francis Govea - Last Filed: 06/05/17 16:36> Exam Vital signs: Temperature 96.8 F 06/05/17 15:00 Pulse Rate 71 06/05/17 15:00 Respiratory Rate 22 06/05/17 15:11 Blood Pressure 107/63 06/05/17 15:00 Pulse Oximetry 94 06/05/17 15:11 Inpatient Medications: Generic Name Dose Route Start Last Admin Trade Name Fretracee PRN Reason Stop Dose Admin Acetaminophen 325 - 650 mg 05/17/17 10:08 06/01/17 21:51 Tylenol PO 650 mg Q5H PRN Administration Discomfort Hydrocodone Bitart/Acetaminophen 1 tab 05/17/17 10:14 06/02/17 17:00 [place] 7.5/325 PO 1 tab Q6H PRN Administration Pain Al Hydroxide/Mg Hydroxide 30 ml 05/28/17 09:24 Maalox Plus PO Q3H PRN Indigestion Albuterol/Ipratropium 3 ml 05/17/17 10:11 Duoneb AEROSOL RTQID PRN Albuterol/Ipratropium 3 ml 05/21/17 15:15 06/05/17 15:11 Duoneb AEROSOL 3 ml Q4H KSENIA Administration Amlodipine Besylate 5 mg 06/04/17 11:41 06/05/17 09:09 Norvasc PO 5 mg DAILY KSENIA Administration Aspirin 81 mg 05/28/17 09:24 06/05/17 09:02 Ecotrin PO 81 mg DAILY KSENIA Administration Atenolol 25 mg 05/29/17 09:00 06/05/17 09:02 Tenormin PO 25 mg BID KSENIA Administration Atorvastatin Calcium 80 mg 05/28/17 21:00 06/04/17 22:15 Lipitor PO 80 mg HS KSENIA Administration Bisacodyl 10 mg 05/27/17 15:11 Dulcolax RECTALLY DAILY PRN Constipation Bisacodyl 5 - 10 mg 05/28/17 09:24 Dulcolax PO DAILY PRN Constipation Budesonide 0.5 mg 05/17/17 19:00 06/05/17 07:31 Pulmicort Inhalation AEROSOL 0.5 mg RTBID KSENIA Administration Bupropion HCl 150 mg 05/17/17 21:00 06/05/17 09:02 Wellbutrin Sr PO 150 mg BID KSENIA Administration Citalopram Hydrobromide 40 mg 05/18/17 09:00 06/05/17 09:02 Celexa PO 40 mg DAILY KS[facility] Administration Clonidine HCl 0.1 mg 05/22/17 09:00 06/05/17 09:05 Catapres-Tts 1 TD Not Given Q7D@0900 KSENIA Clonidine HCl 1 removal 05/29/17 08:59 06/05/17 09:05 Catapres Patch Removal TD 1 removal Q7D KSENIA Administration Gabapentin 300 mg 05/17/17 15:00 06/05/17 15:52 Neurontin PO 300 mg TID KSENIA Administration Glucose 37.5 gm 05/17/17 10:12 Glutose 15 PO PRN PRN Hypoglycemia Guaifenesin 400 mg 05/29/17 12:00 06/05/17 11:42 Robitussin Liq PO 400 mg Q6H [facility] Administration Haloperidol 1 mg 06/03/17 20:30 Haldol PO Q4H PRN Insulin Aspart 2 - 14 unit 05/21/17 11:43 06/05/17 15:58 Novolog SQ 4 unit SS PRN Administration Hyperglycemia Protocol Insulin Glargine 30 unit 06/03/17 21:00 06/04/17 22:14 Lantus SQ 30 unit HS KSENIA Administration Lisinopril 10 mg 06/05/17 09:00 06/05/17 09:08 Prinivil PO 10 mg DAILY [facility] Administration Lorazepam 0.5 - 1 mg 05/28/17 09:24 06/02/17 13:52 Ativan PO 0.5 mg Q4H PRN Administration Anxiety Magnesium Hydroxide 30 ml 05/28/17 09:24 Mom PO DAILY PRN Constipation Nitroglycerin 0.4 mg 05/31/17 23:49 06/02/17 08:11 Nitrostat SL 0.4 mg Q5M PRN Administration Chest pain Nystatin 5 ml 06/03/17 21:00 06/05/17 13:26 Mycostatin PO 06/13/17 20:59 5 ml QID KS[facility]IA Administration Omeprazole 40 mg 05/18/17 06:30 06/05/17 07:46 Prilosec PO 40 mg ACB KS[facility]IA Administration Ondansetron HCl 4 mg 05/28/17 09:24 Zofran IVP Q6H PRN Nausea &/or vomiting Polyethylene Glycol 17 gm 06/03/17 09:00 06/05/17 09:05 Miralax PO 17 gm DAILY KS[facility] Administration Prednisone 40 mg 06/06/17 08:00 Deltasone 20 Mg PO WB KSENIA Sodium Chloride 10 - 80 ml 05/17/17 05:20 06/05/17 11:42 Iv Flush IVF 20 ml PRN PRN Administration Flushing Sodium Chloride 1 spray 05/19/17 11:42 05/19/17 16:37 [place] Nasal Moisturizing [place] NOSTRIL 1 spray PRN PRN Administration Congestion Sodium Chloride 500 ml 05/25/17 21:40 05/25/17 21:52 Normal Saline IV 500 ml PRN PRN Administration Ticagrelor 90 mg 05/28/17 21:01 06/05/17 09:02 Brilinta PO 90 mg Q12H KSENIA Administration Discontinued Medications Generic Name Dose Route Start Last Admin Trade Name Freq PRN Reason Stop Dose Admin Acetaminophen 650 mg 05/21/17 15:10 Tylenol Supp MD Q5H PRN Pain Acetaminophen 325 - 650 mg 05/28/17 09:24 Tylenol PO Q5H PRN Pain Hydrocodone Bitart/Acetaminophen 1 tab 05/17/17 21:00 05/31/17 08:42 [place] 7.5/325 PO 1 tab BID KSENIA Administration Hydrocodone Bitart/Acetaminophen 1 - 2 tab 05/28/17 09:24 [place] 5/325 PO Q5H PRN Pain Acetazolamide 500 mg 05/19/17 10:51 05/19/17 11:25 Diamox PO 05/19/17 10:52 500 mg O ONE Administration Adenosine 12 mg 05/21/17 09:17 05/21/17 08:50 Adenocard IVP 05/21/17 09:18 12 mg O ONE Administration Adenosine 6 mg 05/21/17 09:18 05/21/17 09:23 Adenocard IVP 05/21/17 09:19 6 mg O ONE Administration Albuterol/Ipratropium 6 ml 05/17/17 05:19 05/17/17 05:33 Duoneb AEROSOL 05/17/17 05:20 6 ml O ONE Administration Albuterol/Ipratropium 3 ml 05/17/17 11:00 05/21/17 18:22 Duoneb AEROSOL Not Given RTQID [facility]ENIA Amlodipine Besylate 10 mg 05/24/17 13:46 06/04/17 09:44 Norvasc PO 10 mg DAILY [facility] Administration Aspirin 81 mg 05/18/17 09:00 05/23/17 08:26 Asa PO Not Given DAILY [facility] Aspirin 81 mg 05/22/17 16:00 05/31/17 08:42 Asa GT 81 mg DAILY [facility] Administration Atenolol 25 mg 05/18/17 09:00 05/24/17 08:58 Tenormin PO 25 mg DAILY [facility] Administration Atenolol 50 mg 05/25/17 09:00 05/28/17 12:30 Tenormin PO Not Given DAILY [facility] Atenolol 25 mg 05/24/17 09:40 05/24/17 11:09 Tenormin PO 05/24/17 09:41 25 mg O ONE Administration Atropine Sulfate 0.5 mg 05/28/17 09:24 Atropine IVP Q5M PRN Bradycardia Benzocaine 1 lozenge 05/20/17 18:54 Cepacol Sore Throat Lozenge MM Q2HR PRN Sore throat Bisacodyl 10 mg 05/28/17 09:24 Dulcolax RECTALLY DAILY PRN Constipation Bivalirudin 250 mg 05/24/17 14:15 Angiomax IV NOW [facility] Enoxaparin Sodium 1 each 05/18/17 10:47 05/18/17 12:54 Pharmacy Consult - Lovenox 05/18/17 10:48 1 each O ONE Administration Enoxaparin Sodium 50 mg 05/18/17 11:45 05/20/17 08:37 Lovenox SQ 50 mg DAILY [facility] Administration Enoxaparin Sodium 142 mg 05/27/17 17:00 05/28/17 09:34 Lovenox SQ 142 mg DAILY [facility] Administration Furosemide 20 mg 05/18/17 09:00 05/20/17 08:37 Lasix PO 20 mg DAILY [facility] Administration Furosemide 40 mg 05/21/17 09:37 05/21/17 09:45 Lasix IVP 05/21/17 09:38 40 mg ONCE ONE Administration Furosemide 20 mg 05/23/17 21:00 05/24/17 08:59 Lasix IVP 20 mg Q12HR [facility] Administration Furosemide 20 mg 05/24/17 17:00 05/27/17 09:31 Lasix IVP 20 mg Q8HR [facility] Administration Furosemide 20 mg 05/27/17 21:00 05/29/17 08:09 Lasix IVP 20 mg Q12H [facility] Administration Furosemide 20 mg 05/29/17 09:00 Lasix IVP DAILY [facility] Guaifenesin 1,200 mg 05/18/17 09:00 05/29/17 08:14 Mucinex La PO Not Given BID KSENIA Haloperidol Dec[place] 1 mg 06/01/17 17:43 06/02/17 17:00 Haldol Liquid GT 1 mg Q4H PRN Administration Heparin Sodium (Beef Lung) 5,000 unit 05/21/17 09:23 05/21/17 10:07 Heparin Bolus IVP 05/21/17 09:24 5,000 unit O ONE Administration Heparin Sodium (Beef Lung) 3,000 unit 05/21/17 17:45 05/21/17 17:53 Heparin Bolus IVP 05/21/17 17:46 3,000 unit O ONE Administration Heparin Sodium (Beef Lung) 3,000 unit 05/22/17 03:37 05/22/17 03:46 Heparin Bolus IVP 05/22/17 03:38 3,000 unit O ONE Administration Heparin Sodium (Porcine) 1 each 05/21/17 09:08 Pharmacy Consult - Heparin 05/21/17 09:09 ONE TIME ONE Hydralazine HCl 5 mg 05/22/17 08:47 05/22/17 10:09 Apresoline IVP 5 mg Q6H PRN Administration Hypertension Hydralazine HCl 10 mg 05/22/17 15:01 05/28/17 06:06 Apresoline IVP 10 mg Q4H PRN Administration Hypertension Sodium Chloride 1,000 mls @ 999.9 mls/hr 05/17/17 05:44 05/17/17 11:20 Normal Saline IV 05/17/17 06:43 Infused .Q1H ONE Infusion Sodium Chloride 1,000 mls @ 75 mls/hr 05/17/17 10:08 05/19/17 11:19 Normal Saline IV Infused .[id number] KSENIA Infusion Ceftriaxone Sodium 2 gm/ 100 mls @ 200 mls/hr 05/18/17 01:15 05/18/17 01:50 Sodium Chloride IV Infused Q24H [facility] Infusion Ceftriaxone Sodium 2 gm/ 50 mls @ 100 mls/hr 05/18/17 21:00 05/20/17 21:55 Sodium Chloride IV Infused Q24H [facility] Infusion Heparin Sodium (Porcine) 20,000 unit in 500 mls @ 44 mls/hr 05/21/17 09:30 13:17 Heparin Drip IV Infused .[id number] KSENIA Titration Protocol Dexmedetomidine HCl 200 mcg/ 52 mls @ 6.87 mls/hr 05/21/17 09:52 05/21/17 20: 00 Sodium Chloride IV 05/21/17 20:29 0 mcg/kg/hr .Q7H35M PRN 0 mls/hr Protocol Titration 0.2 MCG/KG/HR Propofol 1,000 mg in 100 mls @ 3.969 mls/hr 05/21/17 10:39 05/21/17 14:28 Diprivan IV 0 mcg/kg/min .Q24H PRN 0 mls/hr Protocol Infusion 5 MCG/KG/MIN Fentanyl 1,000 mcg/ Sodium 100 mls @ 0 mls/hr 05/21/17 13:02 05/27/17 14:45 Chloride IV Infused .Q0M PRN Titration Protocol Per Protocol Sodium Chloride 250 mls @ 999.9 mls/hr 05/21/17 13:15 05/21/17 14:28 Normal Saline IV 05/21/17 13:29 Infused .Q15M KSENIA Infusion Cefepime HCl 1 gm/ Sodium 50 mls @ 100 mls/hr 05/21/17 15:30 05/29/17 10:46 Chloride IV Infused Q6H [facility] Infusion Levofloxacin/Dextrose 750 mg in 150 mls @ 100 mls/hr 05/21/17 16:00 05/28/17 17:15 Levaquin Premix IV Infused Q24H [facility] Infusion Vancomycin HCl 1,500 mg/ 500 mls @ 250 mls/hr 05/21/17 18:00 05/24/17 12:15 Sodium Chloride IV Infused Q8H [facility] Infusion Dexmedetomidine HCl 1,000 mcg/ 260 mls @ 6.87 mls/hr 05/21/17 20:30 05/27/17 14:45 Sodium Chloride IV 05/27/17 14:45 Infused .Q24H PRN Titration Protocol 0.2 MCG/KG/HR Potassium Chloride 10 meq in 100 mls @ 100 mls/hr 05/23/17 09:45 05/23/17 17: 34 Potassium Chloride Premix IV 05/23/17 13:44 Infused Q1H [facility] Infusion Heparin Sodium (Porcine) 20,000 unit in 500 mls @ 45 mls/hr 05/23/17 16:00 06:16 Heparin Drip IV Not Given .Q11H7M KSENIA Protocol Potassium Chloride 10 meq in 100 mls @ 100 mls/hr 05/24/17 09:45 05/24/17 15: 56 Potassium Chloride Premix IV 05/24/17 13:44 Not Given Q1H KSENIA Potassium Chloride 10 meq/ 105 mls @ 105 mls/hr 05/24/17 11:45 05/24/17 17:00 Sodium Chloride IV 05/24/17 15:44 Infused Q1H [facility] Infusion Bivalirudin 250 mg/ Sodium 500 mls @ 43.2 mls/hr 05/24/17 15:15 05/27/17 17: 34 Chloride IV Not Given .[id number] KSENIA Sodium Chloride 1,000 mls @ 75 mls/hr 05/28/17 07:45 05/28/17 14:00 Normal Saline IV Infused .[id number] [facility]IA Infusion Sodium Chloride 1,000 mls @ 500 mls/hr 05/30/17 10:14 05/30/17 10:41 Normal Saline IV 05/30/17 12:13 500 mls/hr .Q2H ONE Administration Sodium Chloride 1,000 mls @ 60 mls/hr 05/30/17 17:00 05/31/17 06:00 Normal Saline IV 05/31/17 09:39 60 mls/hr .[id number] KSENIA Infusion Insulin Aspart 1 - 5 unit 05/17/17 10:12 05/18/17 06:06 Novolog SQ 2 unit SS PRN Administration Hyperglycemia Protocol Insulin Aspart 2 - 8 unit 05/18/17 08:22 05/21/17 07:30 Novolog SQ 3 unit SS PRN Administration Hyperglycemia Protocol Insulin Aspart 15 unit 05/20/17 10:32 05/20/17 10:36 Novolog SQ 05/20/17 10:33 15 unit ONE TIME ONE Administration Insulin Aspart 10 unit 05/26/17 12:00 05/26/17 13:54 Novolog SQ Not Given Q6H [facility]ENIA Insulin Aspart 10 unit 05/26/17 15:00 05/27/17 21:06 Novolog SQ Not Given 0300,0900,1500,2100 [facility] Insulin Aspart 10 unit 05/28/17 15:00 Novolog SQ Q6HR [facility] Insulin Aspart 10 unit 05/28/17 18:00 05/31/17 06:11 Novolog SQ 10 unit Q6H [facility] Administration Insulin Aspart 12 unit 05/31/17 08:41 06/03/17 19:14 Novolog SQ Not Given Q6H [facility] Insulin Aspart 15 unit 06/01/17 15:00 06/02/17 10:37 Novolog SQ Not Given Q6H [facility] Insulin Aspart 18 unit 06/02/17 09:58 06/03/17 17:37 Novolog SQ 18 unit Q6H KS[facility]IA Administration Insulin Glargine 10 unit 05/21/17 21:00 05/21/17 20:14 Lantus SQ 10 unit HS [facility] Administration Insulin Glargine 20 unit 05/22/17 21:00 05/22/17 20:14 Lantus SQ 20 unit HS [facility] Administration Insulin Glargine 40 unit 05/23/17 21:00 05/30/17 21:34 Lantus SQ 40 unit HS [facility] Administration Insulin Glargine 50 unit 05/31/17 08:41 05/31/17 21:06 Lantus SQ 50 unit HS [facility] Administration Insulin Glargine 60 unit 06/01/17 21:00 06/02/17 20:23 Lantus SQ 60 unit HS [facility] Administration Labetalol HCl 10 mg 05/21/17 20:40 05/22/17 06:05 Trandate IVP 10 mg Q4H PRN Administration INCREASED blood pressure Lactulose 20 gm 06/02/17 10:00 06/02/17 11:09 Lactulose PO 06/02/17 10:01 20 gm O ONE Administration Lisinopril 10 mg 05/24/17 16:15 05/31/17 08:42 Prinivil PO 10 mg DAILY [facility] Administration Lisinopril 10 mg 05/31/17 15:18 05/31/17 15:43 Prinivil PO 05/31/17 15:19 10 mg O ONE Administration Lisinopril 20 mg 06/01/17 09:00 06/04/17 09:45 Prinivil PO 20 mg DAILY [facility] Administration Lorazepam 1 mg 05/17/17 06:16 05/17/17 06:56 Ativan PO 05/17/17 06:17 1 mg O ONE Administration Lorazepam 0.5 mg 05/17/17 10:13 05/24/17 15:55 Ativan Inj IVP 0.5 mg Q6H PRN Administration Lorazepam 1 mg 05/24/17 19:46 05/31/17 01:43 Ativan Inj IVP 1 mg Q2H PRN Administration Agitation/Air hunger/Pain Lorazepam 0.5 - 1 mg 05/28/17 09:24 Ativan Inj IVP Q4H PRN Anxiety Magnesium Hydroxide 30 ml 05/26/17 12:41 05/26/17 13:53 Mom GT 05/26/17 12:42 30 ml O ONE Administration Menthol 1 lozenge 05/18/17 08:19 Ricola Sf MM PRN PRN Cough Metformin HCl 500 mg 05/17/17 17:30 05/18/17 10:00 Glucophage PO Not Given BIDWM KSENIA Metformin HCl 500 mg 05/19/17 09:00 05/21/17 10:52 Glucophage PO Not Given BIDWM [facility]IA Methylprednisolone Sodium Succinate 125 mg 05/17/17 06:26 05/17/17 06:53 Solu-Medrol IM 05/17/17 06:27 125 mg O ONE Administration Methylprednisolone Sodium Succinate 125 mg 05/17/17 15:00 05/20/17 08:37 Solu-Medrol IVP 125 mg Q6HR [facility]IA Administration Methylprednisolone Sodium Succinate 80 mg 05/20/17 15:00 05/24/17 08:57 Solu-Medrol IVP 80 mg Q6HR [facility] Administration Methylprednisolone Sodium Succinate 80 mg 05/24/17 17:00 05/26/17 08:23 Solu-Medrol IVP 80 mg Q8HR [facility] Administration Methylprednisolone Sodium Succinate 80 mg 05/26/17 21:00 05/29/17 08:15 Solu-Medrol IVP 80 mg Q12HR [facility] Administration Methylprednisolone Sodium Succinate 60 mg 05/29/17 21:00 06/01/17 21:57 Solu-Medrol IVP 06/02/17 04:00 60 mg Q12HR KSENIA Administration Metoclopramide HCl 5 mg 05/23/17 17:30 05/30/17 10:42 Reglan GT 5 mg Q6H KSENIA Administration Metoclopramide HCl 5 - 10 mg 05/28/17 09:24 Reglan IVP Q6H PRN Nausea &/or vomiting Metoclopramide HCl 5 mg 05/30/17 14:00 06/03/17 23:15 Reglan GT Not Given Q6H KSENIA Metoprolol Tartrate 15 mg 05/21/17 09:18 05/21/17 09:05 Lopressor IVP 05/21/17 09:19 15 mg ONCE ONE Administration Metoprolol Tartrate 5 mg 05/28/17 10:01 05/28/17 10:00 Lopressor IVP 05/28/17 10:02 5 mg ONCE ONE Administration Morphine Sulfate 1 - 2 mg 05/17/17 10:08 05/24/17 17:56 Morphine Sulfate Inj IVP 2 mg Q2H PRN Administration Pain Morphine Sulfate 2 - 4 mg 05/28/17 09:24 05/28/17 10:17 Morphine Sulfate Inj IVP 05/29/17 09:23 4 mg Q2H PRN Administration Pain Morphine Sulfate 2 - 4 mg 05/28/17 09:24 06/02/17 08:19 Morphine Sulfate Inj IVP 2 mg Q5M PRN Administration Angina Nitroglycerin 0.4 mg 05/17/17 10:14 05/21/17 08:35 Nitrostat SL 0.4 mg Q5MIN3 PRN Administration CP Nitroglycerin 0.4 mg 05/28/17 09:24 Nitrostat SL Q5M PRN Angina --Pom--(Itraconazole 200 mg 05/17/17 21:00 05/29/17 09:39 [Itraconazole] 200 PO Not Given Mg) BID KSENIA Ondansetron HCl 4 mg 05/17/17 10:08 05/19/17 02:45 Zofran IVP 4 mg Q6H PRN Administration Nausea &/or vomiting Oseltamivir Phosphate 75 mg 05/29/17 21:00 06/03/17 09:27 Tamiflu 06/03/17 09:01 75 mg BID KSENIA Administration Pantoprazole Sodium 40 mg 05/22/17 09:00 05/31/17 08:44 Protonix Iv IVP 40 mg DAILY KSENIA Administration Pharmacy Consult 1 each 05/17/17 10:32 Pharmacy Consult - Fall Risk XX 05/17/17 10:33 ONE TIME ONE Pharmacy Consult 1 each 05/27/17 10:17 Pharmacy Consult - Fall Risk XX 05/27/17 10:18 ONE TIME ONE Pharmacy Consult 1 each 06/05/17 10:03 Pharmacy Consult - Fall Risk XX 06/05/17 10:04 ONE TIME ONE Potassium Chloride 40 meq 05/24/17 18:10 05/26/17 06:13 Kcl Oral Liq 20 Meq/15 Ml PO Not Given BIDWM KSENIA Potassium Chloride 40 meq 05/25/17 13:00 05/26/17 08:22 Kcl Oral Liq 20 Meq/15 Ml PO 40 meq QID KSENIA Administration Potassium Chloride 40 meq 05/26/17 12:00 05/27/17 12:04 Kcl Oral Liq 20 Meq/15 Ml PO 40 meq TIDWM KSENIA Administration Potassium Chloride 40 meq 05/27/17 17:30 05/29/17 07:59 Kcl Oral Liq 20 Meq/15 Ml PO 40 meq BIDWM KSENIA Administration Potassium Chloride 40 meq 05/29/17 09:00 05/30/17 08:42 Kcl Oral Liq 20 Meq/15 Ml PO 40 meq DAILY KSENIA Administration Prednisone 60 mg 06/02/17 08:00 06/03/17 09:20 Deltasone 20 Mg PO 60 mg WB KSENIA Administration Prednisone 50 mg 06/03/17 11:15 06/05/17 09:02 Deltasone 50 Mg PO 50 mg WB KSENIA Administration Promethazine HCl 12.5 - 25 mg 05/28/17 09:24 Phenergan Inj IVP Q6HR PRN Nausea &/or vomiting Simvastatin 20 mg 05/17/17 21:00 05/27/17 20:36 Zocor PO Not Given HS KSENIA Vancomycin HCl 1 each 05/21/17 15:19 05/21/17 15:53 Pharmacy Consult - Vancomycin MC 05/21/17 15:20 1 each O ONE Administration - Urinary Catheter Management Urethral Cath placed during this visit: no Results 06/05/17 06:22 06/05/17 06:22 CBC 06/05/17 Range/Units 06:22 WBC 10.9 (4.5-11.0) T/MM3 RBC 3.59 L (4.50-5.90) M/MM3 Hgb 10.8 L (13.5-17.5) GM/DL Hct 34.3 L (41-53) % Plt Count 75 L (130-400) T/MM3 Neut # (Auto) 8.6 H (1.8-7.7) T/MM3 Lymph # (Auto) 1.6 (1-4.8) T/MM3 [place] # (Auto) 0.5 (0-0.8) T/MM3 Eos # (Auto) 0.1 (0-0.5) T/MM3 Baso # (Auto) 0.0 (0-0.2) T/MM3 Comprehensive Metabolic Panel 06/05/17 Range/Units 06:22 Sodium 142 (134-144) MEQ/L Potassium 4.1 (3.6-5) MEQ/L Chloride 102 (98-107) MEQ/L Carbon Dioxide 33 H (22-30) MEQ/L BUN 31.0 H (9-20) MG/DL Creatinine 0.7 L (0.8-1.5) MG/DL Glucose 96 (75-110) MG/DL Calcium 8.7 (8.4-10.2) MG/DL Intake and Output 06/05/17 06/05/17 06/05/17 06:59 14:59 22:59 Intake Total 0 / 0 60 / 60 Output Total 600 / 600 Balance -600 / -600 60 / 60 Intake: Oral 0 / 0 60 / 60 Output: Urine Amount (Catheter) 600 / 600 Other: Urine Appearance Clear Urine Color Dark Yellow Urine Odor Normal Stool Color Brown Stool Consistency Loose Size of Bowel Movement Copious # Bowel Movements 1 # Incontinent Bowel Movements 1 Weight 127.9 kg Patient Weight 06/06/17 06:59 Weight 127.9 kg Assessment and Plan - Assessment and Plan (1) Community acquired pneumonia Current visit: No Status: Acute (2) Acute and chronic respiratory failure with hypercapnia Current visit: Yes Status: Acute (3) Chest pain Current visit: Yes Status: Acute (4) Atherosclerotic heart disease of [place] coronary artery without angina pectoris Current visit: Yes Status: Chronic (5) Essential (primary) hypertension Current visit: Yes Status: Chronic (6) Type 2 diabetes mellitus without complications Current visit: Yes Status: Chronic (7) Obesity (BMI 30-39.9) Current visit: Yes Status: Chronic (8) ANGELLA (obstructive sleep apnea) Current visit: Yes Status: Chronic (9) NSTEMI (non-ST elevated myocardial infarction) Current visit: Yes Status: Acute - Attestation Attestation Narrative: 06/05/17 16:36 Recommendation After examining the patient I agree with the above assessment. I am involved in the formulation of the patient's plan of care. Hospital Course Summary Disclaimer: The visit summary below is not to be considered part of the above Progress Note.
[2017-05-31] MEDS ORDERED: LISINOPRIL 10 MG TABLET PO ONE (15:18)
[2017-05-31] MEDS: SALINE FLUSH 10ml SYRINGE IVF PRN (18:29)
[2017-05-31] MEDS: ATORVASTATIN 40 MG TABLET PO SCH (21:05)
[2017-05-31] MEDS: MORPHINE SULFATE 4mg INJECTION IVP PRN (23:08)
[2017-05-31] MEDS ORDERED: NITROGLYCERIN 0.4 MG SUBLINGUAL TABLET SL PRN (23:49)
[2017-06-01] MEDS: ALBUTEROL/IPRATROPIUM 2.5mg-0.5mg/3ml NEB AEROSOL SCH ×6 (00:12→23:48)
[2017-06-01] MEDS: INSULIN ASPART 100unit/ml INJECTION SQ PRN ×3 (00:31→19:05)
[2017-06-01] MEDS: GUAIFENESIN 200mg/10ml ORAL LIQUID PO SCH ×4 (02:59→17:31)
[2017-06-01] MEDS: METOCLOPRAMIDE 10mg/10ml ORAL LIQUID GT SCH ×4 (03:00→21:40)
[2017-06-01] MEDS: INSULIN ASPART 100unit/ml INJECTION SQ SCH ×4 (03:30→21:54)
[2017-06-01] MEDS: LORazepam 0.5 MG TABLET PO PRN ×2 (05:21→23:41)
[2017-06-01] MEDS: OMEPRAZOLE 20 MG CAPSULE PO SCH (05:30)
[2017-06-01] MEDS: BUDESONIDE INH.SOLN 0.5mg/2ml NEB AEROSOL SCH ×2 (07:33→19:52)
[2017-06-01] MEDS: OSELTAMIVIR 30mg/5ml ORAL LIQUID DOB SCH ×2 (11:29→21:52)
[2017-06-01] MEDS: METHYLPREDNISOLONE SOD SUCC 125mg/2ml INJECTION IVP SCH ×2 (11:30→21:57)
[2017-06-01] MEDS: GABAPENTIN 300 MG CAPSULE PO SCH ×3 (11:31→21:56)
[2017-06-01] MEDS: LISINOPRIL 10 MG TABLET PO SCH (11:31)
[2017-06-01] MEDS: ASPIRIN *EC* 81 MG TABLET PO SCH (11:31)
[2017-06-01] MEDS: BuPROPion SR 150mg (12HR) TABLET PO SCH ×2 (11:32→21:56)
[2017-06-01] MEDS: ATENOLOL 25 MG TABLET PO SCH ×2 (11:32→21:56)
[2017-06-01] MEDS: CITALOPRAM 40 MG TABLET PO SCH (11:32)
[2017-06-01] MEDS: AMLODIPINE 10 MG TABLET PO SCH (11:32)
[2017-06-01] MEDS: TICAGRELOR 90 MG TABLET PO SCH ×2 (11:33→22:04)
--- NOTE | 2017-06-01 16:56 | Pulmonology Progress Note ---
Subjective Principal diagnosis: SOB, respiratory failure Interval history: discussed with at bedside. he is currently on bipap 01/12, rate 16, Fio2 30%. No distress. awake and responsive. he is upset but not able to communicate exact issues. still seems somewhat confused Exam Vital signs: Temperature 98.0 F 06/01/17 11:46 Pulse Rate 92 06/01/17 11:46 Respiratory Rate 18 06/01/17 16:06 Blood Pressure 130/71 06/01/17 11:46 Pulse Oximetry 97 06/01/17 16:16 Inpatient Medications: Generic Name Dose Route Start Last Admin Trade Name Freq PRN Reason Stop Dose Admin Acetaminophen 325 - 650 mg 05/17/17 10:08 05/26/17 20:58 Tylenol PO 650 mg Q5H PRN Administration Discomfort Hydrocodone Bitart/Acetaminophen 1 tab 05/17/17 10:14 [place] 7.5/325 PO Q6H PRN Pain Al Hydroxide/Mg Hydroxide 30 ml 05/28/17 09:24 Maalox Plus PO Q3H PRN Indigestion Albuterol/Ipratropium 3 ml 05/17/17 10:11 Duoneb AEROSOL RTQID PRN Albuterol/Ipratropium 3 ml 05/21/17 15:15 06/01/17 16:06 Duoneb AEROSOL 3 ml Q4H KSENIA Administration Amlodipine Besylate 10 mg 05/24/17 13:46 06/01/17 11:32 Norvasc PO 10 mg DAILY KSENIA Administration Aspirin 81 mg 05/28/17 09:24 06/01/17 11:31 Ecotrin PO 81 mg DAILY KSENIA Administration Atenolol 25 mg 05/29/17 09:00 06/01/17 11:32 Tenormin PO 25 mg BID KSENIA Administration Atorvastatin Calcium 80 mg 05/28/17 21:00 05/31/17 21:05 Lipitor PO 80 mg HS KSENIA Administration Bisacodyl 10 mg 05/27/17 15:11 Dulcolax RECTALLY DAILY PRN Constipation Bisacodyl 5 - 10 mg 05/28/17 09:24 Dulcolax PO DAILY PRN Constipation Budesonide 0.5 mg 05/17/17 19:00 06/01/17 07:33 Pulmicort Inhalation AEROSOL 0.5 mg RTBID KSENIA Administration Bupropion HCl 150 mg 05/17/17 21:00 06/01/17 11:32 Wellbutrin Sr PO 150 mg BID KSENIA Administration Citalopram Hydrobromide 40 mg 05/18/17 09:00 06/01/17 11:32 Celexa PO 40 mg DAILY KSENIA Administration Clonidine HCl 0.1 mg 05/22/17 09:00 05/29/17 08:01 Catapres-Tts 1 TD 0.1 mg Q7D@0900 KSENIA Administration Clonidine HCl 1 removal 05/29/17 08:59 05/29/17 08:13 Catapres Patch Removal TD 1 removal Q7D KSENIA Administration Gabapentin 300 mg 05/17/17 15:00 06/01/17 11:31 Neurontin PO 300 mg TID KSENIA Administration Glucose 37.5 gm 05/17/17 10:12 Glutose 15 PO PRN PRN Hypoglycemia Guaifenesin 400 mg 05/29/17 12:00 06/01/17 05:21 Robitussin Liq PO 400 mg Q6H KSENIA Administration Hydralazine HCl 10 mg 05/22/17 15:01 05/28/17 06:06 Apresoline IVP 10 mg Q4H PRN Administration Hypertension Insulin Aspart 2 - 14 unit 05/21/17 11:43 06/01/17 06:44 Novolog SQ 7 unit SS PRN Administration Hyperglycemia Protocol Insulin Aspart 15 unit 06/01/17 15:00 Novolog SQ Q6H [facility] Insulin Glargine 50 unit 05/31/17 08:41 05/31/17 21:06 Lantus SQ 50 unit HS KSENIA Administration Lisinopril 20 mg 06/01/17 09:00 06/01/17 11:31 Prinivil PO 20 mg DAILY KSENIA Administration Lorazepam 0.5 - 1 mg 05/28/17 09:24 06/01/17 05:21 Ativan PO 0.5 mg Q4H PRN Administration Anxiety Magnesium Hydroxide 30 ml 05/28/17 09:24 Mom PO DAILY PRN Constipation Methylprednisolone Sodium Succinate 60 mg 05/29/17 21:00 05/31/17 21:07 Solu-Medrol IVP 60 mg Q12HR KSENIA Administration Metoclopramide HCl 5 mg 05/30/17 14:00 06/01/17 11:34 Reglan GT 5 mg Q6H KSENIA Administration Morphine Sulfate 2 - 4 mg 05/28/17 09:24 05/31/17 23:08 Morphine Sulfate Inj IVP 4 mg Q5M PRN Administration Angina Nitroglycerin 0.4 mg 05/31/17 23:49 Nitrostat SL Q5M PRN Chest pain Omeprazole 40 mg 05/18/17 06:30 06/01/17 05:30 Prilosec PO 40 mg ACB KSENIA Administration Ondansetron HCl 4 mg 05/28/17 09:24 Zofran IVP Q6H PRN Nausea &/or vomiting Oseltamivir Phosphate 75 mg 05/29/17 21:00 06/01/17 11:29 Tamiflu 06/03/17 09:01 75 mg BID KSENIA Administration Sodium Chloride 10 - 80 ml 05/17/17 05:20 05/31/17 18:29 Iv Flush IVF 30 ml PRN PRN Administration Flushing Sodium Chloride 1 spray 05/19/17 11:42 05/19/17 16:37 Deep Sea Nasal Moisturizing [place] EA NOSTRIL 1 spray PRN PRN Administration Congestion Sodium Chloride 500 ml 05/25/17 21:40 05/25/17 21:52 Normal Saline IV 500 ml PRN PRN Administration Ticagrelor 90 mg 05/28/17 21:01 06/01/17 11:33 Brilinta PO 90 mg Q12H KSENIA Administration Discontinued Medications Generic Name Dose Route Start Last Admin Trade Name Freq PRN Reason Stop Dose Admin Acetaminophen 650 mg 05/21/17 15:10 Tylenol Supp [place] Q5H PRN Pain Acetaminophen 325 - 650 mg 05/28/17 09:24 Tylenol PO Q5H PRN Pain Hydrocodone Bitart/Acetaminophen 1 tab 05/17/17 21:00 05/31/17 08:42 [place] 7.5/325 PO 1 tab BID KSENIA Administration Hydrocodone Bitart/Acetaminophen 1 - 2 tab 05/28/17 09:24 [place] 5/325 PO Q5H PRN Pain Acetazolamide 500 mg 05/19/17 10:51 05/19/17 11:25 Diamox PO 05/19/17 10:52 500 mg O ONE Administration Adenosine 12 mg 05/21/17 09:17 05/21/17 08:50 Adenocard IVP 05/21/17 09:18 12 mg O ONE Administration Adenosine 6 mg 05/21/17 09:18 05/21/17 09:23 Adenocard IVP 05/21/17 09:19 6 mg O ONE Administration Albuterol/Ipratropium 6 ml 05/17/17 05:19 05/17/17 05:33 Duoneb AEROSOL 05/17/17 05:20 6 ml O ONE Administration Albuterol/Ipratropium 3 ml 05/17/17 11:00 05/21/17 18:22 Duoneb AEROSOL Not Given RTQID [facility] Aspirin 81 mg 05/18/17 09:00 05/23/17 08:26 Asa PO Not Given DAILY [facility] Aspirin 81 mg 05/22/17 16:00 05/31/17 08:42 Asa GT 81 mg DAILY [facility] Administration Atenolol 25 mg 05/18/17 09:00 05/24/17 08:58 Tenormin PO 25 mg DAILY [facility] Administration Atenolol 50 mg 05/25/17 09:00 05/28/17 12:30 Tenormin PO Not Given DAILY [facility] Atenolol 25 mg 05/24/17 09:40 05/24/17 11:09 Tenormin PO 05/24/17 09:41 25 mg O ONE Administration Atropine Sulfate 0.5 mg 05/28/17 09:24 Atropine IVP Q5M PRN Bradycardia Benzocaine 1 lozenge 05/20/17 18:54 Cepacol Sore Throat Lozenge MM Q2HR PRN Sore throat Bisacodyl 10 mg 05/28/17 09:24 Dulcolax RECTALLY DAILY PRN Constipation Bivalirudin 250 mg 05/24/17 14:15 Angiomax IV NOW [facility] Enoxaparin Sodium 1 each 05/18/17 10:47 05/18/17 12:54 Pharmacy Consult - Lovenox MC 05/18/17 10:48 1 each O ONE Administration Enoxaparin Sodium 50 mg 05/18/17 11:45 05/20/17 08:37 Lovenox SQ 50 mg DAILY [facility] Administration Enoxaparin Sodium 142 mg 05/27/17 17:00 05/28/17 09:34 Lovenox SQ 142 mg DAILY [facility] Administration Furosemide 20 mg 05/18/17 09:00 05/20/17 08:37 Lasix PO 20 mg DAILY [facility] Administration Furosemide 40 mg 05/21/17 09:37 05/21/17 09:45 Lasix IVP 05/21/17 09:38 40 mg ONCE ONE Administration Furosemide 20 mg 05/23/17 21:00 05/24/17 08:59 Lasix IVP 20 mg Q12HR KSENIA Administration Furosemide 20 mg 05/24/17 17:00 05/27/17 09:31 Lasix IVP 20 mg Q8HR KSENIA Administration Furosemide 20 mg 05/27/17 21:00 05/29/17 08:09 Lasix IVP 20 mg Q12H KSENIA Administration Furosemide 20 mg 05/29/17 09:00 Lasix IVP DAILY KSENIA Guaifenesin 1,200 mg 05/18/17 09:00 05/29/17 08:14 Mucinex La PO Not Given BID KSENIA Heparin Sodium (Beef Lung) 5,000 unit 05/21/17 09:23 05/21/17 10:07 Heparin Bolus IVP 05/21/17 09:24 5,000 unit O ONE Administration Heparin Sodium (Beef Lung) 3,000 unit 05/21/17 17:45 05/21/17 17:53 Heparin Bolus IVP 05/21/17 17:46 3,000 unit O ONE Administration Heparin Sodium (Beef Lung) 3,000 unit 05/22/17 03:37 05/22/17 03:46 Heparin Bolus IVP 05/22/17 03:38 3,000 unit O ONE Administration Heparin Sodium (Porcine) 1 each 05/21/17 09:08 Pharmacy Consult - Heparin 05/21/17 09:09 ONE TIME ONE Hydralazine HCl 5 mg 05/22/17 08:47 05/22/17 10:09 Apresoline IVP 5 mg Q6H PRN Administration Hypertension Sodium Chloride 1,000 mls @ 999.9 mls/hr 05/17/17 05:44 05/17/17 11:20 Normal Saline IV 05/17/17 06:43 Infused .Q1H ONE Infusion Sodium Chloride 1,000 mls @ 75 mls/hr 05/17/17 10:08 05/19/17 11:19 Normal Saline IV Infused .[id number] KSENIA Infusion Ceftriaxone Sodium 2 gm/ 100 mls @ 200 mls/hr 05/18/17 01:15 05/18/17 01:50 Sodium Chloride IV Infused Q24H KSENIA Infusion Ceftriaxone Sodium 2 gm/ 50 mls @ 100 mls/hr 05/18/17 21:00 05/20/17 21:55 Sodium Chloride IV Infused Q24H KSENIA Infusion Heparin Sodium (Porcine) 20,000 unit in 500 mls @ 44 mls/hr 05/21/17 09:30 13:17 Heparin Drip IV Infused .[id number] KSENIA Titration Protocol Dexmedetomidine HCl 200 mcg/ 52 mls @ 6.87 mls/hr 05/21/17 09:52 05/21/17 20: 00 Sodium Chloride IV 05/21/17 20:29 0 mcg/kg/hr .Q7H35M PRN 0 mls/hr Protocol Titration 0.2 MCG/KG/HR Propofol 1,000 mg in 100 mls @ 3.969 mls/hr 05/21/17 10:39 05/21/17 14:28 Diprivan IV 0 mcg/kg/min .Q24H PRN 0 mls/hr Protocol Infusion 5 MCG/KG/MIN Fentanyl 1,000 mcg/ Sodium 100 mls @ 0 mls/hr 05/21/17 13:02 05/27/17 14:45 Chloride IV Infused .Q0M PRN Titration Protocol Per Protocol Sodium Chloride 250 mls @ 999.9 mls/hr 05/21/17 13:15 05/21/17 14:28 Normal Saline IV 05/21/17 13:29 Infused .Q15M KSENIA Infusion Cefepime HCl 1 gm/ Sodium 50 mls @ 100 mls/hr 05/21/17 15:30 05/29/17 10:46 Chloride IV Infused Q6H KSENIA Infusion Levofloxacin/Dextrose 750 mg in 150 mls @ 100 mls/hr 05/21/17 16:00 05/28/17 17:15 Levaquin Premix IV Infused Q24H KSENIA Infusion Vancomycin HCl 1,500 mg/ 500 mls @ 250 mls/hr 05/21/17 18:00 05/24/17 12:15 Sodium Chloride IV Infused Q8H KSENIA Infusion Dexmedetomidine HCl 1,000 mcg/ 260 mls @ 6.87 mls/hr 05/21/17 20:30 05/27/17 14:45 Sodium Chloride IV 05/27/17 14:45 Infused .Q24H PRN Titration Protocol 0.2 MCG/KG/HR Potassium Chloride 10 meq in 100 mls @ 100 mls/hr 05/23/17 09:45 05/23/17 17: 34 Potassium Chloride Premix IV 05/23/17 13:44 Infused Q1H KSENIA Infusion Heparin Sodium (Porcine) 20,000 unit in 500 mls @ 45 mls/hr 05/23/17 16:00 06:16 Heparin Drip IV Not Given .Q11H7M KSENIA Protocol Potassium Chloride 10 meq in 100 mls @ 100 mls/hr 05/24/17 09:45 05/24/17 15: 56 Potassium Chloride Premix IV 05/24/17 13:44 Not Given Q1H KSENIA Potassium Chloride 10 meq/ 105 mls @ 105 mls/hr 05/24/17 11:45 05/24/17 17:00 Sodium Chloride IV 05/24/17 15:44 Infused Q1H KSENIA Infusion Bivalirudin 250 mg/ Sodium 500 mls @ 43.2 mls/hr 05/24/17 15:15 05/27/17 17: 34 Chloride IV Not Given .[id number] KSENIA Sodium Chloride 1,000 mls @ 75 mls/hr 05/28/17 07:45 05/28/17 14:00 Normal Saline IV Infused .[id number] KSENIA Infusion Sodium Chloride 1,000 mls @ 500 mls/hr 05/30/17 10:14 05/30/17 10:41 Normal Saline IV 05/30/17 12:13 500 mls/hr .Q2H ONE Administration Sodium Chloride 1,000 mls @ 60 mls/hr 05/30/17 17:00 05/31/17 06:00 Normal Saline IV 05/31/17 09:39 60 mls/hr .[id number] KSENIA Infusion Insulin Aspart 1 - 5 unit 05/17/17 10:12 05/18/17 06:06 Novolog SQ 2 unit SS PRN Administration Hyperglycemia Protocol Insulin Aspart 2 - 8 unit 05/18/17 08:22 05/21/17 07:30 Novolog SQ 3 unit SS PRN Administration Hyperglycemia Protocol Insulin Aspart 15 unit 05/20/17 10:32 05/20/17 10:36 Novolog SQ 05/20/17 10:33 15 unit ONE TIME ONE Administration Insulin Aspart 10 unit 05/26/17 12:00 05/26/17 13:54 Novolog SQ Not Given Q6H SKENIA Insulin Aspart 10 unit 05/26/17 15:00 05/27/17 21:06 Novolog SQ Not Given 0300,0900,1500,2100 [facility] Insulin Aspart 10 unit 05/28/17 15:00 Novolog SQ Q6HR KSENIA Insulin Aspart 10 unit 05/28/17 18:00 05/31/17 06:11 Novolog SQ 10 unit Q6H KSENIA Administration Insulin Aspart 12 unit 05/31/17 08:41 06/01/17 04:33 Novolog SQ Not Given Q6H KSENIA Insulin Glargine 10 unit 05/21/17 21:00 05/21/17 20:14 Lantus SQ 10 unit HS [facility] Administration Insulin Glargine 20 unit 05/22/17 21:00 05/22/17 20:14 Lantus SQ 20 unit HS KSENIA Administration Insulin Glargine 40 unit 05/23/17 21:00 05/30/17 21:34 Lantus SQ 40 unit HS [facility] Administration Labetalol HCl 10 mg 05/21/17 20:40 05/22/17 06:05 Trandate IVP 10 mg Q4H PRN Administration INCREASED blood pressure Lisinopril 10 mg 05/24/17 16:15 05/31/17 08:42 Prinivil PO 10 mg DAILY KSENIA Administration Lisinopril 10 mg 05/31/17 15:18 05/31/17 15:43 Prinivil PO 05/31/17 15:19 10 mg O ONE Administration Lorazepam 1 mg 05/17/17 06:16 05/17/17 06:56 Ativan PO 05/17/17 06:17 1 mg O ONE Administration Lorazepam 0.5 mg 05/17/17 10:13 05/24/17 15:55 Ativan Inj IVP 0.5 mg Q6H PRN Administration Lorazepam 1 mg 05/24/17 19:46 05/31/17 01:43 Ativan Inj IVP 1 mg Q2H PRN Administration Agitation/Air hunger/Pain Lorazepam 0.5 - 1 mg 05/28/17 09:24 Ativan Inj IVP Q4H PRN Anxiety Magnesium Hydroxide 30 ml 05/26/17 12:41 05/26/17 13:53 Mom GT 05/26/17 12:42 30 ml O ONE Administration Menthol 1 lozenge 05/18/17 08:19 Ricola Sf MM PRN PRN Cough Metformin HCl 500 mg 05/17/17 17:30 05/18/17 10:00 Glucophage PO Not Given BIDWM KSENIA Metformin HCl 500 mg 05/19/17 09:00 05/21/17 10:52 Glucophage PO Not Given BIDWM KSENIA Methylprednisolone Sodium Succinate 125 mg 05/17/17 06:26 05/17/17 06:53 Solu-Medrol IM 05/17/17 06:27 125 mg O ONE Administration Methylprednisolone Sodium Succinate 125 mg 05/17/17 15:00 05/20/17 08:37 Solu-Medrol IVP 125 mg Q6HR KSENIA Administration Methylprednisolone Sodium Succinate 80 mg 05/20/17 15:00 05/24/17 08:57 Solu-Medrol IVP 80 mg Q6HR KSENIA Administration Methylprednisolone Sodium Succinate 80 mg 05/24/17 17:00 05/26/17 08:23 Solu-Medrol IVP 80 mg Q8HR KSENIA Administration Methylprednisolone Sodium Succinate 80 mg 05/26/17 21:00 05/29/17 08:15 Solu-Medrol IVP 80 mg Q12HR KSENIA Administration Metoclopramide HCl 5 mg 05/23/17 17:30 05/30/17 10:42 Reglan GT 5 mg Q6H KSENIA Administration Metoclopramide HCl 5 - 10 mg 05/28/17 09:24 Reglan IVP Q6H PRN Nausea &/or vomiting Metoprolol Tartrate 15 mg 05/21/17 09:18 05/21/17 09:05 Lopressor IVP 05/21/17 09:19 15 mg ONCE ONE Administration Metoprolol Tartrate 5 mg 05/28/17 10:01 05/28/17 10:00 Lopressor IVP 05/28/17 10:02 5 mg ONCE ONE Administration Morphine Sulfate 1 - 2 mg 05/17/17 10:08 05/24/17 17:56 Morphine Sulfate Inj IVP 2 mg Q2H PRN Administration Pain Morphine Sulfate 2 - 4 mg 05/28/17 09:24 05/28/17 10:17 Morphine Sulfate Inj IVP 05/29/17 09:23 4 mg Q2H PRN Administration Pain Nitroglycerin 0.4 mg 05/17/17 10:14 05/21/17 08:35 Nitrostat SL 0.4 mg Q5MIN3 PRN Administration CP Nitroglycerin 0.4 mg 05/28/17 09:24 Nitrostat SL Q5M PRN Angina --Pom--(Itraconazole 200 mg 05/17/17 21:00 05/29/17 09:39 [Itraconazole] 200 PO Not Given Mg) BID KSENIA Ondansetron HCl 4 mg 05/17/17 10:08 05/19/17 02:45 Zofran IVP 4 mg Q6H PRN Administration Nausea &/or vomiting Pantoprazole Sodium 40 mg 05/22/17 09:00 05/31/17 08:44 Protonix Iv IVP 40 mg DAILY KSENIA Administration Pharmacy Consult 1 each 05/17/17 10:32 Pharmacy Consult - Fall Risk XX 05/17/17 10:33 ONE TIME ONE Pharmacy Consult 1 each 05/27/17 10:17 Pharmacy Consult - Fall Risk XX 05/27/17 10:18 ONE TIME ONE Potassium Chloride 40 meq 05/24/17 18:10 05/26/17 06:13 Kcl Oral Liq 20 Meq/15 Ml PO Not Given BIDWM KSENIA Potassium Chloride 40 meq 05/25/17 13:00 05/26/17 08:22 Kcl Oral Liq 20 Meq/15 Ml PO 40 meq QID KSENIA Administration Potassium Chloride 40 meq 05/26/17 12:00 05/27/17 12:04 Kcl Oral Liq 20 Meq/15 Ml PO 40 meq TIDWM KSENIA Administration Potassium Chloride 40 meq 05/27/17 17:30 05/29/17 07:59 Kcl Oral Liq 20 Meq/15 Ml PO 40 meq BIDWM KSENIA Administration Potassium Chloride 40 meq 05/29/17 09:00 05/30/17 08:42 Kcl Oral Liq 20 Meq/15 Ml PO 40 meq DAILY KSENIA Administration Promethazine HCl 12.5 - 25 mg 05/28/17 09:24 Phenergan Inj IVP Q6HR PRN Nausea &/or vomiting Simvastatin 20 mg 05/17/17 21:00 05/27/17 20:36 Zocor PO Not Given HS KSENIA Vancomycin HCl 1 each 05/21/17 15:19 05/21/17 15:53 Pharmacy Consult - Vancomycin MC 02/13/18 15:20 1 each O ONE Administration - Constitutional no acute distress Comments: on bipap at night and prn - Routine HEENT Exam Head: Present: normocephalic, atraumatic Eye: Absent: conjunctival icterus - Routine Neck Exam Present: supple, full ROM - Routine Respiratory Exam Present: CTA bilaterally, prolonged expiratory phase. Absent: accessory muscle use - Routine Cardiovascular Exam Present: RRR - Routine Abdominal Exam Present: soft - Routine Extremities Exam Absent: cyanosis, clubbing - Routine Neurological Exam Present: alert - Urinary Catheter Management Urethral Cath placed during this visit: yes Insertion date: 05/21/17 Results - Laboratory Findings Laboratory: Laboratory Results - last 48 hr 05/30/17 05/31/17 05/31/17 19:14 00:01 04:44 WBC 13.5 H RBC 3.90 L Hgb 11.6 L Hct 38.0 L MCV 97.4 MCH 29.7 MCHC 30.5 L RDW Std Deviation 46.7 Plt Count 87 L MPV TNP Immature Gran % (Auto) Not performed Neut % (Auto) Not performed Lymph % (Auto) Not performed Summers % (Auto) Not performed Eos % (Auto) Not performed Baso % (Auto) Not performed Neut # (Auto) Not performed Lymph # (Auto) Not performed Summers # (Auto) Not performed Eos # (Auto) Not performed Baso # (Auto) Not performed Abs Immat Gran (auto) Not performed Neutrophils % (Manual) 94.0 H Band Neutrophils % Lymphocytes % (Manual) 2.0 L Monocytes % (Manual) 4.0 Neutrophils # (Manual) 12.7 H Band Neutrophils # Lymphocytes # (Manual) 0.3 L Monocytes # (Manual) 0.5 RBC Morph Comment Normal Turbidity Sodium Potassium Chloride Carbon Dioxide Anion Gap BUN Creatinine GFR Calculation BUN/Creatinine Ratio Glucose Glucometer 339 324 Calculated Osmolality Calcium Phosphorus Magnesium Icterus Index Troponin I Albumin Specimen Hemolysis 05/31/17 05/31/17 05/31/17 04:44 06:02 12:30 WBC RBC Hgb Hct MCV MCH MCHC RDW Std Deviation Plt Count MPV Immature Gran % (Auto) Neut % (Auto) Lymph % (Auto) Summers % (Auto) Eos % (Auto) Baso % (Auto) Neut # (Auto) Lymph # (Auto) Summers # (Auto) Eos # (Auto) Baso # (Auto) Abs Immat Gran (auto) Neutrophils % (Manual) Band Neutrophils % Lymphocytes % (Manual) Monocytes % (Manual) Neutrophils # (Manual) Band Neutrophils # Lymphocytes # (Manual) Monocytes # (Manual) RBC Morph Comment Turbidity < 20 Sodium 143 Potassium 4.7 Chloride 107 Carbon Dioxide 31 H Anion Gap 5 BUN 48.0 H Creatinine 0.6 L GFR Calculation 137 BUN/Creatinine Ratio 80 H Glucose 292 H Glucometer 300 239 Calculated Osmolality 299 H Calcium 8.0 L Phosphorus 2.6 Magnesium 2.5 H Icterus Index < 2 Troponin I Albumin 2.5 L Specimen Hemolysis < 15 05/31/17 05/31/17 05/31/17 15:41 18:04 23:40 WBC RBC Hgb Hct MCV MCH MCHC RDW Std Deviation Plt Count MPV Immature Gran % (Auto) Neut % (Auto) Lymph % (Auto) Summers % (Auto) Eos % (Auto) Baso % (Auto) Neut # (Auto) Lymph # (Auto) Summers # (Auto) Eos # (Auto) Baso # (Auto) Abs Immat Gran (auto) Neutrophils % (Manual) Band Neutrophils % Lymphocytes % (Manual) Monocytes % (Manual) Neutrophils # (Manual) Band Neutrophils # Lymphocytes # (Manual) Monocytes # (Manual) RBC Morph Comment Turbidity Sodium Potassium Chloride Carbon Dioxide Anion Gap BUN Creatinine GFR Calculation BUN/Creatinine Ratio Glucose Glucometer 293 247 Calculated Osmolality Calcium Phosphorus Magnesium Icterus Index Troponin I 0.067 Albumin Specimen Hemolysis < 15 06/01/17 06/01/17 06/01/17 00:15 02:12 02:12 WBC 17.1 H RBC 4.26 L Hgb 12.5 L Hct 40.6 L MCV 95.3 MCH 29.3 MCHC 30.8 L RDW Std Deviation 44.9 Plt Count 103 L MPV 14.5 H Immature Gran % (Auto) Neut % (Auto) Lymph % (Auto) Summers % (Auto) Eos % (Auto) Baso % (Auto) Neut # (Auto) Lymph # (Auto) Summers # (Auto) Eos # (Auto) Baso # (Auto) Abs Immat Gran (auto) Neutrophils % (Manual) 92.0 H Band Neutrophils % 1.0 Lymphocytes % (Manual) 3.0 L Monocytes % (Manual) 4.0 Neutrophils # (Manual) 15.7 H Band Neutrophils # 0.2 Lymphocytes # (Manual) 0.5 L Monocytes # (Manual) 0.7 RBC Morph Comment Normal Turbidity < 20 Sodium 142 Potassium 4.5 Chloride 105 Carbon Dioxide 30 Anion Gap 7 BUN 35.0 H Creatinine 0.6 L GFR Calculation 137 BUN/Creatinine Ratio 58 H Glucose 297 H Glucometer 358 Calculated Osmolality 292 H Calcium 8.5 Phosphorus Magnesium Icterus Index < 2 Troponin I 0.075 Albumin Specimen Hemolysis < 15 06/01/17 06/01/17 06/01/17 03:21 06:08 08:36 WBC RBC Hgb Hct MCV MCH MCHC RDW Std Deviation Plt Count MPV Immature Gran % (Auto) Neut % (Auto) Lymph % (Auto) Summers % (Auto) Eos % (Auto) Baso % (Auto) Neut # (Auto) Lymph # (Auto) Summers # (Auto) Eos # (Auto) Baso # (Auto) Abs Immat Gran (auto) Neutrophils % (Manual) Band Neutrophils % Lymphocytes % (Manual) Monocytes % (Manual) Neutrophils # (Manual) Band Neutrophils # Lymphocytes # (Manual) Monocytes # (Manual) RBC Morph Comment Turbidity Sodium Potassium Chloride Carbon Dioxide Anion Gap BUN Creatinine GFR Calculation BUN/Creatinine Ratio Glucose Glucometer 313 264 Calculated Osmolality Calcium Phosphorus Magnesium Icterus Index Troponin I 0.075 Albumin Specimen Hemolysis < 15 06/01/17 11:44 WBC RBC Hgb Hct MCV MCH MCHC RDW Std Deviation Plt Count MPV Immature Gran % (Auto) Neut % (Auto) Lymph % (Auto) Summers % (Auto) Eos % (Auto) Baso % (Auto) Neut # (Auto) Lymph # (Auto) Summers # (Auto) Eos # (Auto) Baso # (Auto) Abs Immat Gran (auto) Neutrophils % (Manual) Band Neutrophils % Lymphocytes % (Manual) Monocytes % (Manual) Neutrophils # (Manual) Band Neutrophils # Lymphocytes # (Manual) Monocytes # (Manual) RBC Morph Comment Turbidity Sodium Potassium Chloride Carbon Dioxide Anion Gap BUN Creatinine GFR Calculation BUN/Creatinine Ratio Glucose Glucometer 249 Calculated Osmolality Calcium Phosphorus Magnesium Icterus Index Troponin I Albumin Specimen Hemolysis - Diagnostic Findings Chest x-ray: image reviewed (05/30. mild left hilar/basilar atelectasis) Assessment and Plan (1) Acute exacerbation of chronic obstructive airways disease Status: Acute Assessment and plan: continue to wean steroids (still on solumedrol IV). has DHT. we can start prednisone via DHT. continue nebs q4, RT care. Current Visit: Yes (2) Acute and chronic respiratory failure with hypercapnia Status: Acute Assessment and plan: seems to be stable, but still requiring bipap and supplemental O2. we will repeat an ABG. Current Visit: Yes (3) Pneumonia Status: Acute Assessment and plan: most recent finding is influenza B. CXR 05/30 stable. repeat CXR 06/03 Current Visit: Yes - Assessment and Plan Acute on Chronic Hypoxic Hypercapnic Respiratory Failure LLL mass 2.2 cm - plan OP biopsy COPD exacerbation Influenza B Chest Pain/Wide complex tachycardia s/p cardioversion CAD s/p stent ANGELLA/OHS Morbid Obesity Thrombocytopenia - resolved - Time Spent With Patient Total time spent is greater than 50% in coordination of care (as documented) at patient's floor/unit and/or counseling patient: less than 15 minutes
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
[2017-06-01] MEDS: ATORVASTATIN 40 MG TABLET PO SCH (21:49)
[2017-06-01] MEDS: ACETAMINOPHEN 325 MG TABLET PO PRN (21:51)
[2017-06-01] MEDS: INSULIN GLARGINE 100unit/ml INJECTION SQ SCH (21:53)
[2017-06-01] MEDS: SALINE FLUSH 10ml SYRINGE IVF PRN (22:02)
[2017-06-01] MEDS: HALOPERIDOL 1 MG/0.5 ML ORAL LIQUID GT PRN (22:04)
[2017-06-02] MEDS: GUAIFENESIN 200mg/10ml ORAL LIQUID PO SCH ×4 (01:31→17:00)
[2017-06-02] MEDS: HALOPERIDOL 1 MG/0.5 ML ORAL LIQUID GT PRN ×2 (01:31→17:00)
[2017-06-02] MEDS: METOCLOPRAMIDE 10mg/10ml ORAL LIQUID GT SCH ×4 (01:33→20:21)
[2017-06-02] MEDS: INSULIN ASPART 100unit/ml INJECTION SQ PRN ×4 (01:34→18:16)
[2017-06-02] MEDS: INSULIN ASPART 100unit/ml INJECTION SQ SCH ×5 (03:38→22:04)
[2017-06-02] MEDS: ALBUTEROL/IPRATROPIUM 2.5mg-0.5mg/3ml NEB AEROSOL SCH ×7 (03:50→22:43)
[2017-06-02] MEDS: MORPHINE SULFATE 4mg INJECTION IVP PRN ×2 (05:31→08:19)
[2017-06-02] MEDS: SALINE FLUSH 10ml SYRINGE IVF PRN (05:32)
[2017-06-02] MEDS: OMEPRAZOLE 20 MG CAPSULE PO SCH (05:35)
[2017-06-02] MEDS ORDERED: LACTULOSE 20 GM/30 ML ORAL LIQUID PO ONE (10:00)
[2017-06-02] MEDS: OSELTAMIVIR 30mg/5ml ORAL LIQUID DOB SCH ×2 (10:10→20:41)
[2017-06-02] MEDS: ATENOLOL 25 MG TABLET PO SCH ×2 (10:10→20:21)
[2017-06-02] MEDS: BuPROPion SR 150mg (12HR) TABLET PO SCH ×2 (10:10→20:22)
[2017-06-02] MEDS: GABAPENTIN 300 MG CAPSULE PO SCH ×3 (10:10→20:22)
[2017-06-02] MEDS: TICAGRELOR 90 MG TABLET PO SCH ×2 (10:11→20:23)
[2017-06-02] MEDS: LISINOPRIL 10 MG TABLET PO SCH (10:11)
[2017-06-02] MEDS: CITALOPRAM 40 MG TABLET PO SCH (10:12)
[2017-06-02] MEDS: ASPIRIN *EC* 81 MG TABLET PO SCH (10:12)
[2017-06-02] MEDS: AMLODIPINE 10 MG TABLET PO SCH (10:12)
[2017-06-02] MEDS: PredniSONE 20 MG TABLET PO SCH (10:17)
[2017-06-02] MEDS: BUDESONIDE INH.SOLN 0.5mg/2ml NEB AEROSOL SCH ×2 (11:58→19:04)
--- NOTE | 2017-06-02 12:08 | Pulmonology Progress Note ---
Subjective Principal diagnosis: SOB, respiratory failure Interval history: Pt currently on bipap, tarik well. Wakes to voice. No c/o SOB at this time. Per staff he had some SOB and CP this am. No distress, still somewhat confused. Exam Vital signs: Temperature 98.8 F 06/02/17 03:25 Pulse Rate 101 H 06/02/17 08:16 Respiratory Rate 28 H 06/02/17 08:16 Blood Pressure 129/77 06/02/17 08:49 Pulse Oximetry 97 06/02/17 08:49 Inpatient Medications: Generic Name Dose Route Start Last Admin Trade Name Freq PRN Reason Stop Dose Admin Acetaminophen 325 - 650 mg 05/17/17 10:08 06/01/17 21:51 Tylenol PO 650 mg Q5H PRN Administration Discomfort Hydrocodone Bitart/Acetaminophen 1 tab 05/17/17 10:14 Hershey 7.5/325 PO Q6H PRN Pain Al Hydroxide/Mg Hydroxide 30 ml 05/28/17 09:24 Maalox Plus PO Q3H PRN Indigestion Albuterol/Ipratropium 3 ml 05/17/17 10:11 Duoneb AEROSOL RTQID PRN Albuterol/Ipratropium 3 ml 05/21/17 15:15 06/02/17 11:39 Duoneb AEROSOL Not Given Q4H KSENIA Amlodipine Besylate 10 mg 05/24/17 13:46 06/02/17 10:12 Norvasc PO 10 mg DAILY KSENIA Administration Aspirin 81 mg 05/28/17 09:24 06/02/17 10:12 Ecotrin PO 81 mg DAILY KSENIA Administration Atenolol 25 mg 05/29/17 09:00 06/02/17 10:10 Tenormin PO 25 mg BID KSENIA Administration Atorvastatin Calcium 80 mg 05/28/17 21:00 06/01/17 21:49 Lipitor PO 80 mg HS KSENIA Administration Bisacodyl 10 mg 05/27/17 15:11 Dulcolax RECTALLY DAILY PRN Constipation Bisacodyl 5 - 10 mg 05/28/17 09:24 Dulcolax PO DAILY PRN Constipation Budesonide 0.5 mg 05/17/17 19:00 06/01/17 19:52 Pulmicort Inhalation AEROSOL 0.5 mg RTBID KSENIA Administration Bupropion HCl 150 mg 05/17/17 21:00 06/02/17 10:10 Wellbutrin Sr PO 150 mg BID KSENIA Administration Citalopram Hydrobromide 40 mg 05/18/17 09:00 06/02/17 10:12 Celexa PO 40 mg DAILY KSENIA Administration Clonidine HCl 0.1 mg 05/22/17 09:00 05/29/17 08:01 Catapres-Tts 1 TD 0.1 mg Q7D@0900 KSENIA Administration Clonidine HCl 1 removal 05/29/17 08:59 05/29/17 08:13 Catapres Patch Removal TD 1 removal Q7D KSENIA Administration Gabapentin 300 mg 05/17/17 15:00 06/02/17 10:10 Neurontin PO 300 mg TID KSENIA Administration Glucose 37.5 gm 05/17/17 10:12 Glutose 15 PO PRN PRN Hypoglycemia Guaifenesin 400 mg 05/29/17 12:00 06/02/17 11:09 Robitussin Liq PO 400 mg Q6H KSENIA Administration Haloperidol Decanoate 1 mg 06/01/17 17:43 06/02/17 01:31 Haldol Liquid GT 1 mg Q4H PRN Administration Insulin Aspart 2 - 14 unit 05/21/17 11:43 06/02/17 06:53 Novolog SQ 4 unit SS PRN Administration Hyperglycemia Protocol Insulin Aspart 18 unit 06/02/17 09:58 06/02/17 10:18 Novolog SQ 18 unit Q6H KSENIA Administration Insulin Glargine 60 unit 06/01/17 21:00 06/01/17 21:53 Lantus SQ 60 unit HS KSENIA Administration Lisinopril 20 mg 06/01/17 09:00 06/02/17 10:11 Prinivil PO 20 mg DAILY KSENIA Administration Lorazepam 0.5 - 1 mg 05/28/17 09:24 06/01/17 23:41 Ativan PO 0.5 mg Q4H PRN Administration Anxiety Magnesium Hydroxide 30 ml 05/28/17 09:24 Mom PO DAILY PRN Constipation Metoclopramide HCl 5 mg 05/30/17 14:00 06/02/17 10:09 Reglan GT 5 mg Q6H KSENIA Administration Nitroglycerin 0.4 mg 05/31/17 23:49 06/02/17 08:11 Nitrostat SL 0.4 mg Q5M PRN Administration Chest pain Omeprazole 40 mg 05/18/17 06:30 06/02/17 05:35 Prilosec PO 40 mg ACB KSENIA Administration Ondansetron HCl 4 mg 05/28/17 09:24 Zofran IVP Q6H PRN Nausea &/or vomiting Oseltamivir Phosphate 75 mg 05/29/17 21:00 06/02/17 10:10 Tamiflu 06/03/17 09:01 30 mg BID KSENIA Administration Prednisone 60 mg 06/02/17 08:00 06/02/17 10:17 Deltasone 20 Mg PO 60 mg WB KSENIA Administration Sodium Chloride 10 - 80 ml 05/17/17 05:20 06/02/17 05:32 Iv Flush IVF 10 ml PRN PRN Administration Flushing Sodium Chloride 1 spray 05/19/17 11:42 05/19/17 16:37 Deep Sea Nasal Moisturizing [place] EA NOSTRIL 1 spray PRN PRN Administration Congestion Sodium Chloride 500 ml 05/25/17 21:40 05/25/17 21:52 Normal Saline IV 500 ml PRN PRN Administration Ticagrelor 90 mg 05/28/17 21:01 06/02/17 10:11 Brilinta PO 90 mg Q12H KSENIA Administration Discontinued Medications Generic Name Dose Route Start Last Admin Trade Name Freq PRN Reason Stop Dose Admin Acetaminophen 650 mg 05/21/17 15:10 Tylenol Supp NV Q5H PRN Pain Acetaminophen 325 - 650 mg 05/28/17 09:24 Tylenol PO Q5H PRN Pain Hydrocodone Bitart/Acetaminophen 1 tab 05/17/17 21:00 05/31/17 08:42 Hershey 7.5/325 PO 1 tab BID KSENIA Administration Hydrocodone Bitart/Acetaminophen 1 - 2 tab 05/28/17 09:24 Hershey 5/325 PO Q5H PRN Pain Acetazolamide 500 mg 05/19/17 10:51 05/19/17 11:25 Diamox PO 05/19/17 10:52 500 mg O ONE Administration Adenosine 12 mg 05/21/17 09:17 05/21/17 08:50 Adenocard IVP 05/21/17 09:18 12 mg O ONE Administration Adenosine 6 mg 05/21/17 09:18 05/21/17 09:23 Adenocard IVP 05/21/17 09:19 6 mg O ONE Administration Albuterol/Ipratropium 6 ml 05/17/17 05:19 05/17/17 05:33 Duoneb AEROSOL 05/17/17 05:20 6 ml O ONE Administration Albuterol/Ipratropium 3 ml 05/17/17 11:00 05/21/17 18:22 Duoneb AEROSOL Not Given RTQID KSENIA Aspirin 81 mg 05/18/17 09:00 05/23/17 08:26 Asa PO Not Given DAILY [facility] Aspirin 81 mg 05/22/17 16:00 05/31/17 08:42 Asa GT 81 mg DAILY [facility] Administration Atenolol 25 mg 05/18/17 09:00 05/24/17 08:58 Tenormin PO 25 mg DAILY [facility] Administration Atenolol 50 mg 05/25/17 09:00 05/28/17 12:30 Tenormin PO Not Given DAILY [facility] Atenolol 25 mg 05/24/17 09:40 05/24/17 11:09 Tenormin PO 05/24/17 09:41 25 mg O ONE Administration Atropine Sulfate 0.5 mg 05/28/17 09:24 Atropine IVP Q5M PRN Bradycardia Benzocaine 1 lozenge 05/20/17 18:54 Cepacol Sore Throat Lozenge MM Q2HR PRN Sore throat Bisacodyl 10 mg 05/28/17 09:24 Dulcolax RECTALLY DAILY PRN Constipation Bivalirudin 250 mg 05/24/17 14:15 Angiomax IV NOW [facility] Enoxaparin Sodium 1 each 05/18/17 10:47 05/18/17 12:54 Pharmacy Consult - Lovenox MC 05/18/17 10:48 1 each O ONE Administration Enoxaparin Sodium 50 mg 05/18/17 11:45 05/20/17 08:37 Lovenox SQ 50 mg DAILY [facility] Administration Enoxaparin Sodium 142 mg 05/27/17 17:00 05/28/17 09:34 Lovenox SQ 142 mg DAILY [facility] Administration Furosemide 20 mg 05/18/17 09:00 05/20/17 08:37 Lasix PO 20 mg DAILY [facility] Administration Furosemide 40 mg 05/21/17 09:37 05/21/17 09:45 Lasix IVP 05/21/17 09:38 40 mg ONCE ONE Administration Furosemide 20 mg 05/23/17 21:00 05/24/17 08:59 Lasix IVP 20 mg Q12HR KSENIA Administration Furosemide 20 mg 05/24/17 17:00 05/27/17 09:31 Lasix IVP 20 mg Q8HR KSENIA Administration Furosemide 20 mg 05/27/17 21:00 05/29/17 08:09 Lasix IVP 20 mg Q12H KSENIA Administration Furosemide 20 mg 05/29/17 09:00 Lasix IVP DAILY KSENIA Guaifenesin 1,200 mg 05/18/17 09:00 05/29/17 08:14 Mucinex La PO Not Given BID KSENIA Heparin Sodium (Beef Lung) 5,000 unit 05/21/17 09:23 05/21/17 10:07 Heparin Bolus IVP 05/21/17 09:24 5,000 unit O ONE Administration Heparin Sodium (Beef Lung) 3,000 unit 05/21/17 17:45 05/21/17 17:53 Heparin Bolus IVP 05/21/17 17:46 3,000 unit O ONE Administration Heparin Sodium (Beef Lung) 3,000 unit 05/22/17 03:37 05/22/17 03:46 Heparin Bolus IVP 05/22/17 03:38 3,000 unit O ONE Administration Heparin Sodium (Porcine) 1 each 05/21/17 09:08 Pharmacy Consult - Heparin MC 05/21/17 09:09 ONE TIME ONE Hydralazine HCl 5 mg 05/22/17 08:47 05/22/17 10:09 Apresoline IVP 5 mg Q6H PRN Administration Hypertension Hydralazine HCl 10 mg 05/22/17 15:01 05/28/17 06:06 Apresoline IVP 10 mg Q4H PRN Administration Hypertension Sodium Chloride 1,000 mls @ 999.9 mls/hr 05/17/17 05:44 05/17/17 11:20 Normal Saline IV 05/17/17 06:43 Infused .Q1H ONE Infusion Sodium Chloride 1,000 mls @ 75 mls/hr 05/17/17 10:08 05/19/17 11:19 Normal Saline IV Infused .[id number] KSENIA Infusion Ceftriaxone Sodium 2 gm/ 100 mls @ 200 mls/hr 05/18/17 01:15 05/18/17 01:50 Sodium Chloride IV Infused Q24H KSENIA Infusion Ceftriaxone Sodium 2 gm/ 50 mls @ 100 mls/hr 05/18/17 21:00 05/20/17 21:55 Sodium Chloride IV Infused Q24H KSENIA Infusion Heparin Sodium (Porcine) 20,000 unit in 500 mls @ 44 mls/hr 05/21/17 09:30 13:17 Heparin Drip IV Infused .[id number] KSENIA Titration Protocol Dexmedetomidine HCl 200 mcg/ 52 mls @ 6.87 mls/hr 05/21/17 09:52 05/21/17 20: 00 Sodium Chloride IV 05/21/17 20:29 0 mcg/kg/hr .Q7H35M PRN 0 mls/hr Protocol Titration 0.2 MCG/KG/HR Propofol 1,000 mg in 100 mls @ 3.969 mls/hr 05/21/17 10:39 05/21/17 14:28 Diprivan IV 0 mcg/kg/min .Q24H PRN 0 mls/hr Protocol Infusion 5 MCG/KG/MIN Fentanyl 1,000 mcg/ Sodium 100 mls @ 0 mls/hr 05/21/17 13:02 05/27/17 14:45 Chloride IV Infused .Q0M PRN Titration Protocol Per Protocol Sodium Chloride 250 mls @ 999.9 mls/hr 05/21/17 13:15 05/21/17 14:28 Normal Saline IV 05/21/17 13:29 Infused .Q15M KSENIA Infusion Cefepime HCl 1 gm/ Sodium 50 mls @ 100 mls/hr 05/21/17 15:30 05/29/17 10:46 Chloride IV Infused Q6H KSENIA Infusion Levofloxacin/Dextrose 750 mg in 150 mls @ 100 mls/hr 05/21/17 16:00 05/28/17 17:15 Levaquin Premix IV Infused Q24H KSENIA Infusion Vancomycin HCl 1,500 mg/ 500 mls @ 250 mls/hr 05/21/17 18:00 05/24/17 12:15 Sodium Chloride IV Infused Q8H KSENIA Infusion Dexmedetomidine HCl 1,000 mcg/ 260 mls @ 6.87 mls/hr 05/21/17 20:30 05/27/17 14:45 Sodium Chloride IV 05/27/17 14:45 Infused .Q24H PRN Titration Protocol 0.2 MCG/KG/HR Potassium Chloride 10 meq in 100 mls @ 100 mls/hr 05/23/17 09:45 05/23/17 17: 34 Potassium Chloride Premix IV 05/23/17 13:44 Infused Q1H KSENIA Infusion Heparin Sodium (Porcine) 20,000 unit in 500 mls @ 45 mls/hr 05/23/17 16:00 06:16 Heparin Drip IV Not Given .Q11H7M KSENIA Protocol Potassium Chloride 10 meq in 100 mls @ 100 mls/hr 05/24/17 09:45 05/24/17 15: 56 Potassium Chloride Premix IV 05/24/17 13:44 Not Given Q1H KSENIA Potassium Chloride 10 meq/ 105 mls @ 105 mls/hr 05/24/17 11:45 05/24/17 17:00 Sodium Chloride IV 05/24/17 15:44 Infused Q1H KSENIA Infusion Bivalirudin 250 mg/ Sodium 500 mls @ 43.2 mls/hr 05/24/17 15:15 05/27/17 17: 34 Chloride IV Not Given .[id number] KSENIA Sodium Chloride 1,000 mls @ 75 mls/hr 05/28/17 07:45 05/28/17 14:00 Normal Saline IV Infused .[id number] KSENIA Infusion Sodium Chloride 1,000 mls @ 500 mls/hr 05/30/17 10:14 05/30/17 10:41 Normal Saline IV 05/30/17 12:13 500 mls/hr .Q2H ONE Administration Sodium Chloride 1,000 mls @ 60 mls/hr 05/30/17 17:00 05/31/17 06:00 Normal Saline IV 05/31/17 09:39 60 mls/hr .[id number] KSENIA Infusion Insulin Aspart 1 - 5 unit 05/17/17 10:12 05/18/17 06:06 Novolog SQ 2 unit SS PRN Administration Hyperglycemia Protocol Insulin Aspart 2 - 8 unit 05/18/17 08:22 05/21/17 07:30 Novolog SQ 3 unit SS PRN Administration Hyperglycemia Protocol Insulin Aspart 15 unit 05/20/17 10:32 05/20/17 10:36 Novolog SQ 05/20/17 10:33 15 unit ONE TIME ONE Administration Insulin Aspart 10 unit 05/26/17 12:00 05/26/17 13:54 Novolog SQ Not Given Q6H KSENIA Insulin Aspart 10 unit 05/26/17 15:00 05/27/17 21:06 Novolog SQ Not Given 0300,0900,1500,2100 [facility] Insulin Aspart 10 unit 05/28/17 15:00 Novolog SQ Q6HR KSENIA Insulin Aspart 10 unit 05/28/17 18:00 05/31/17 06:11 Novolog SQ 10 unit Q6H KSENIA Administration Insulin Aspart 12 unit 05/31/17 08:41 06/01/17 04:33 Novolog SQ Not Given Q6H KSENIA Insulin Aspart 15 unit 06/01/17 15:00 06/02/17 10:37 Novolog SQ Not Given Q6H [facility] Insulin Glargine 10 unit 05/21/17 21:00 05/21/17 20:14 Lantus SQ 10 unit HS [facility] Administration Insulin Glargine 20 unit 05/22/17 21:00 05/22/17 20:14 Lantus SQ 20 unit HS [facility] Administration Insulin Glargine 40 unit 05/23/17 21:00 05/30/17 21:34 Lantus SQ 40 unit HS [facility] Administration Insulin Glargine 50 unit 05/31/17 08:41 05/31/17 21:06 Lantus SQ 50 unit HS [facility] Administration Labetalol HCl 10 mg 05/21/17 20:40 05/22/17 06:05 Trandate IVP 10 mg Q4H PRN Administration INCREASED blood pressure Lactulose 20 gm 06/02/17 10:00 06/02/17 11:09 Lactulose PO 06/02/17 10:01 20 gm O ONE Administration Lisinopril 10 mg 05/24/17 16:15 05/31/17 08:42 Prinivil PO 10 mg DAILY KSENIA Administration Lisinopril 10 mg 05/31/17 15:18 05/31/17 15:43 Prinivil PO 05/31/17 15:19 10 mg O ONE Administration Lorazepam 1 mg 05/17/17 06:16 05/17/17 06:56 Ativan PO 05/17/17 06:17 1 mg O ONE Administration Lorazepam 0.5 mg 05/17/17 10:13 05/24/17 15:55 Ativan Inj IVP 0.5 mg Q6H PRN Administration Lorazepam 1 mg 05/24/17 19:46 05/31/17 01:43 Ativan Inj IVP 1 mg Q2H PRN Administration Agitation/Air hunger/Pain Lorazepam 0.5 - 1 mg 05/28/17 09:24 Ativan Inj IVP Q4H PRN Anxiety Magnesium Hydroxide 30 ml 05/26/17 12:41 05/26/17 13:53 Mom GT 05/26/17 12:42 30 ml O ONE Administration Menthol 1 lozenge 05/18/17 08:19 Ricola Sf MM PRN PRN Cough Metformin HCl 500 mg 05/17/17 17:30 05/18/17 10:00 Glucophage PO Not Given BIDWM KSENIA Metformin HCl 500 mg 05/19/17 09:00 05/21/17 10:52 Glucophage PO Not Given BIDWM KSENIA Methylprednisolone Sodium Succinate 125 mg 05/17/17 06:26 05/17/17 06:53 Solu-Medrol IM 05/17/17 06:27 125 mg O ONE Administration Methylprednisolone Sodium Succinate 125 mg 05/17/17 15:00 05/20/17 08:37 Solu-Medrol IVP 125 mg Q6HR KSENIA Administration Methylprednisolone Sodium Succinate 80 mg 05/20/17 15:00 05/24/17 08:57 Solu-Medrol IVP 80 mg Q6HR KSENIA Administration Methylprednisolone Sodium Succinate 80 mg 05/24/17 17:00 05/26/17 08:23 Solu-Medrol IVP 80 mg Q8HR KSENIA Administration Methylprednisolone Sodium Succinate 80 mg 05/26/17 21:00 05/29/17 08:15 Solu-Medrol IVP 80 mg Q12HR KSENIA Administration Methylprednisolone Sodium Succinate 60 mg 05/29/17 21:00 06/01/17 21:57 Solu-Medrol IVP 06/02/17 04:00 60 mg Q12HR KSENIA Administration Metoclopramide HCl 5 mg 05/23/17 17:30 05/30/17 10:42 Reglan GT 5 mg Q6H KSENIA Administration Metoclopramide HCl 5 - 10 mg 05/28/17 09:24 Reglan IVP Q6H PRN Nausea &/or vomiting Metoprolol Tartrate 15 mg 05/21/17 09:18 05/21/17 09:05 Lopressor IVP 05/21/17 09:19 15 mg ONCE ONE Administration Metoprolol Tartrate 5 mg 05/28/17 10:01 05/28/17 10:00 Lopressor IVP 05/28/17 10:02 5 mg ONCE ONE Administration Morphine Sulfate 1 - 2 mg 05/17/17 10:08 05/24/17 17:56 Morphine Sulfate Inj IVP 2 mg Q2H PRN Administration Pain Morphine Sulfate 2 - 4 mg 05/28/17 09:24 05/28/17 10:17 Morphine Sulfate Inj IVP 05/29/17 09:23 4 mg Q2H PRN Administration Pain Morphine Sulfate 2 - 4 mg 05/28/17 09:24 06/02/17 08:19 Morphine Sulfate Inj IVP 2 mg Q5M PRN Administration Angina Nitroglycerin 0.4 mg 05/17/17 10:14 05/21/17 08:35 Nitrostat SL 0.4 mg Q5MIN3 PRN Administration CP Nitroglycerin 0.4 mg 05/28/17 09:24 Nitrostat SL Q5M PRN Angina --Pom--(Itraconazole 200 mg 05/17/17 21:00 05/29/17 09:39 [Itraconazole] 200 PO Not Given Mg) BID KSENIA Ondansetron HCl 4 mg 05/17/17 10:08 05/19/17 02:45 Zofran IVP 4 mg Q6H PRN Administration Nausea &/or vomiting Pantoprazole Sodium 40 mg 05/22/17 09:00 05/31/17 08:44 Protonix Iv IVP 40 mg DAILY KSENIA Administration Pharmacy Consult 1 each 05/17/17 10:32 Pharmacy Consult - Fall Risk XX 05/17/17 10:33 ONE TIME ONE Pharmacy Consult 1 each 05/27/17 10:17 Pharmacy Consult - Fall Risk XX 05/27/17 10:18 ONE TIME ONE Potassium Chloride 40 meq 05/24/17 18:10 05/26/17 06:13 Kcl Oral Liq 20 Meq/15 Ml PO Not Given BIDWM KSENIA Potassium Chloride 40 meq 05/25/17 13:00 05/26/17 08:22 Kcl Oral Liq 20 Meq/15 Ml PO 40 meq QID KSENIA Administration Potassium Chloride 40 meq 05/26/17 12:00 05/27/17 12:04 Kcl Oral Liq 20 Meq/15 Ml PO 40 meq TIDWM KSENIA Administration Potassium Chloride 40 meq 05/27/17 17:30 05/29/17 07:59 Kcl Oral Liq 20 Meq/15 Ml PO 40 meq BIDWM KSENIA Administration Potassium Chloride 40 meq 05/29/17 09:00 05/30/17 08:42 Kcl Oral Liq 20 Meq/15 Ml PO 40 meq DAILY KSENIA Administration Promethazine HCl 12.5 - 25 mg 05/28/17 09:24 Phenergan Inj IVP Q6HR PRN Nausea &/or vomiting Simvastatin 20 mg 05/17/17 21:00 05/27/17 20:36 Zocor PO Not Given HS KSENIA Vancomycin HCl 1 each 05/21/17 15:19 05/21/17 15:53 Pharmacy Consult - Vancomycin 05/21/17 15:20 1 each O ONE Administration - Constitutional no acute distress, morbidly obese, cooperative - Routine HEENT Exam Head: Present: normocephalic, atraumatic Eye: Present: EOMI, PERRL ENT: Present: mucous membranes moist - Routine Neck Exam Present: supple, full ROM, trachea midline - Routine Respiratory Exam Present: decreased breath sounds. Absent: patient mechanically ventilated, wheezes - Routine Cardiovascular Exam Present: RRR, S1, S2, no murmur - Routine Abdominal Exam Present: soft, normoactive bowel sounds - Routine Extremities Exam Present: no edema, non tender, full ROM - Routine Back/Spine/Pelvis Exam Back/Spine: Present: full ROM - Routine Skin Exam Present: intact, dry - Routine Neurological Exam Present: alert, CN II-XII intact somewhat confused - Routine Psychiatric Exam Present: normal affect, cooperative - Urinary Catheter Management Urethral Cath placed during this visit: yes Insertion date: 05/21/17 Results - Laboratory Findings Laboratory: Laboratory Results - last 48 hr 05/31/17 05/31/17 05/31/17 12:30 15:41 18:04 WBC RBC Hgb Hct MCV MCH MCHC RDW Std Deviation Plt Count MPV Neutrophils % (Manual) Band Neutrophils % Lymphocytes % (Manual) Monocytes % (Manual) Neutrophils # (Manual) Band Neutrophils # Lymphocytes # (Manual) Monocytes # (Manual) Nucleated RBCs RBC Morph Comment Specimen Type ABG pH ABG pCO2 ABG pO2 ABG HCO3 ABG Total CO2 ABG O2 Saturation ABG Base Excess O2 Delivery Method FiO2 (liters per min) Turbidity Sodium Potassium Chloride Carbon Dioxide Anion Gap BUN Creatinine GFR Calculation BUN/Creatinine Ratio Glucose Glucometer 239 293 247 Calculated Osmolality Calcium Phosphorus Magnesium Total Bilirubin Icterus Index AST ALT Alkaline Phosphatase Troponin I B-Natriuretic Peptide Total Protein Albumin Globulin Albumin/Globulin Ratio Specimen Hemolysis 05/31/17 06/01/17 06/01/17 23:40 00:15 02:12 WBC 17.1 H RBC 4.26 L Hgb 12.5 L Hct 40.6 L MCV 95.3 MCH 29.3 MCHC 30.8 L RDW Std Deviation 44.9 Plt Count 103 L MPV 14.5 H Neutrophils % (Manual) 92.0 H Band Neutrophils % 1.0 Lymphocytes % (Manual) 3.0 L Monocytes % (Manual) 4.0 Neutrophils # (Manual) 15.7 H Band Neutrophils # 0.2 Lymphocytes # (Manual) 0.5 L Monocytes # (Manual) 0.7 Nucleated RBCs RBC Morph Comment Normal Specimen Type ABG pH ABG pCO2 ABG pO2 ABG HCO3 ABG Total CO2 ABG O2 Saturation ABG Base Excess O2 Delivery Method FiO2 (liters per min) Turbidity Sodium Potassium Chloride Carbon Dioxide Anion Gap BUN Creatinine GFR Calculation BUN/Creatinine Ratio Glucose Glucometer 358 Calculated Osmolality Calcium Phosphorus Magnesium Total Bilirubin Icterus Index AST ALT Alkaline Phosphatase Troponin I 0.067 B-Natriuretic Peptide Total Protein Albumin Globulin Albumin/Globulin Ratio Specimen Hemolysis < 15 06/01/17 06/01/17 06/01/17 02:12 03:21 06:08 WBC RBC Hgb Hct MCV MCH MCHC RDW Std Deviation Plt Count MPV Neutrophils % (Manual) Band Neutrophils % Lymphocytes % (Manual) Monocytes % (Manual) Neutrophils # (Manual) Band Neutrophils # Lymphocytes # (Manual) Monocytes # (Manual) Nucleated RBCs RBC Morph Comment Specimen Type ABG pH ABG pCO2 ABG pO2 ABG HCO3 ABG Total CO2 ABG O2 Saturation ABG Base Excess O2 Delivery Method FiO2 (liters per min) Turbidity < 20 Sodium 142 Potassium 4.5 Chloride 105 Carbon Dioxide 30 Anion Gap 7 BUN 35.0 H Creatinine 0.6 L GFR Calculation 137 BUN/Creatinine Ratio 58 H Glucose 297 H Glucometer 313 264 Calculated Osmolality 292 H Calcium 8.5 Phosphorus Magnesium Total Bilirubin Icterus Index < 2 AST ALT Alkaline Phosphatase Troponin I 0.075 B-Natriuretic Peptide Total Protein Albumin Globulin Albumin/Globulin Ratio Specimen Hemolysis < 15 06/01/17 06/01/17 06/01/17 08:36 11:44 17:15 WBC RBC Hgb Hct MCV MCH MCHC RDW Std Deviation Plt Count MPV Neutrophils % (Manual) Band Neutrophils % Lymphocytes % (Manual) Monocytes % (Manual) Neutrophils # (Manual) Band Neutrophils # Lymphocytes # (Manual) Monocytes # (Manual) Nucleated RBCs RBC Morph Comment Specimen Type Na ABG pH 7.498 H ABG pCO2 35 ABG pO2 48 L ABG HCO3 27.0 H ABG Total CO2 28.0 H ABG O2 Saturation 87.0 L ABG Base Excess 4.0 H O2 Delivery Method High flow kiley can, % FiO2 (liters per min) 2.5 Turbidity Sodium Potassium Chloride Carbon Dioxide Anion Gap BUN Creatinine GFR Calculation BUN/Creatinine Ratio Glucose Glucometer 249 Calculated Osmolality Calcium Phosphorus Magnesium Total Bilirubin Icterus Index AST ALT Alkaline Phosphatase Troponin I 0.075 B-Natriuretic Peptide Total Protein Albumin Globulin Albumin/Globulin Ratio Specimen Hemolysis < 15 06/01/17 06/01/17 06/02/17 18:59 21:40 00:01 WBC RBC Hgb Hct MCV MCH MCHC RDW Std Deviation Plt Count MPV Neutrophils % (Manual) Band Neutrophils % Lymphocytes % (Manual) Monocytes % (Manual) Neutrophils # (Manual) Band Neutrophils # Lymphocytes # (Manual) Monocytes # (Manual) Nucleated RBCs RBC Morph Comment Specimen Type ABG pH ABG pCO2 ABG pO2 ABG HCO3 ABG Total CO2 ABG O2 Saturation ABG Base Excess O2 Delivery Method FiO2 (liters per min) Turbidity Sodium Potassium Chloride Carbon Dioxide Anion Gap BUN Creatinine GFR Calculation BUN/Creatinine Ratio Glucose Glucometer 336 299 243 Calculated Osmolality Calcium Phosphorus Magnesium Total Bilirubin Icterus Index AST ALT Alkaline Phosphatase Troponin I B-Natriuretic Peptide Total Protein Albumin Globulin Albumin/Globulin Ratio Specimen Hemolysis 06/02/17 06/02/17 06/02/17 04:16 04:16 06:40 WBC 16.3 H RBC 4.25 L Hgb 12.6 L Hct 39.9 L MCV 93.9 MCH 29.6 MCHC 31.6 RDW Std Deviation 44.1 Plt Count 107 L MPV TNP Neutrophils % (Manual) 94.0 H Band Neutrophils % 1.0 Lymphocytes % (Manual) 4.0 L Monocytes % (Manual) 1.0 Neutrophils # (Manual) 15.3 H Band Neutrophils # 0.2 Lymphocytes # (Manual) 0.7 L Monocytes # (Manual) 0.2 Nucleated RBCs 1 RBC Morph Comment Normal Specimen Type ABG pH ABG pCO2 ABG pO2 ABG HCO3 ABG Total CO2 ABG O2 Saturation ABG Base Excess O2 Delivery Method FiO2 (liters per min) Turbidity < 20 Sodium 141 Potassium 4.6 Chloride 102 Carbon Dioxide 29 Anion Gap 10 BUN 33.0 H Creatinine 0.6 L GFR Calculation 137 BUN/Creatinine Ratio 55 H Glucose 305 H Glucometer 245 Calculated Osmolality 289 H Calcium 8.8 Phosphorus 3.2 Magnesium 2.3 Total Bilirubin 0.80 Icterus Index < 2 AST 26 ALT 78 H Alkaline Phosphatase 90 Troponin I B-Natriuretic Peptide 2100 H Total Protein 5.4 L Albumin 2.9 L Globulin 2.5 Albumin/Globulin Ratio 1.2 Specimen Hemolysis < 15 Assessment and Plan - Assessment and Plan Acute on Chronic Hypoxic Hypercapnic Respiratory Failure LLL mass 2.2 cm - plan OP biopsy COPD exacerbation Influenza B Chest Pain/Wide complex tachycardia s/p cardioversion CAD s/p stent ANGELLA/OHS Morbid Obesity Thrombocytopenia - resolved Plan: Pt currently on bipap 01/12, rate 16, Fio2 30%, Vt 600's and tolerating well. When off bipap usually on 2-3L O2 per NC. On a/a q4hr, pulmicort and prednisone , no wheezing or SOB noted at this time. On tamiflu for Influenza, still on brilanta for CAD s/p stent. No CP at this time, CV following. - Time Spent With Patient Total time spent is greater than 50% in coordination of care (as documented) at patient's floor/unit and/or counseling patient: less than 15 minutes
[2017-06-02] MEDS: LORazepam 0.5 MG TABLET PO PRN (13:52)
--- NOTE | 2017-06-02 16:21 | Progress Note ---
- Date 06/02/17 Subjective: Chaz was seen with his at bedside. He reported chest pain shortly before I arrived with dyspnea but no diaphoresis or nausea. Pain was treated with nitroglycerin and subsequently morphine without relief; he was repositioned in bed and pain subsided. He again denied pain and his chest was palpated. He's not had a bowel movement and denied fever or lightheadedness. Patient continues to display confusion intermittently and was reported to pull at his [place] and BiPAP intermittently overnight; he received 2 doses of haloperidol for restlessness/agitation. Objective Vital signs: Temperature 96.6 F L 06/02/17 15:39 Pulse Rate 89 06/02/17 15:39 Respiratory Rate 26 H 06/02/17 15:39 Blood Pressure 128/70 06/02/17 15:39 Pulse Oximetry 92-BiPAP 06/02/17 15:39 I/O Weight up 7 kg in 2 days (may reflect change from ICU bed to medical unit) EXAM General-NAD, alert, helping reposition himself in bed. Generally responds to questions appropriately but occasionally makes "[id number]"comments HEENT-oral membranes dry, conjugate gaze, pupils equal, conjunctiva clear Lungs-respirations nonlabored, fair airflow, anterior breath sounds slightly coarse, no wheezing Cardiac-regular rhythm, S1-S2 Abd-obese, soft, nontender, bowel sounds present Ext-without edema Neuro-MAEW, assisting with position changes, generalized weakness, greater in the lower extremities than upper extremities Psych-confused but cooperative time of my evaluation - Rhythm: Normal Sinus Rhythm Height/Weight/BMI: Height 1.85 m Weight 140.1 kg Body Mass Index 41.5 Results - Labs CBC & Chem 7: 06/02/17 04:16 06/02/17 04:16 Labs: S94 B1 L4 M1 AST 26, ALT 78; bilirubin/alkaline phosphatase within normal limits ProBNP 2100 accuchecks [phone] past 24 hrs Microbiology Results: Microbiology 05/25/17 15:49 Midline Blood Culture - Final No Growth After 5 Days 05/25/17 15:43 Port/Picc Blood Culture - Final No Growth After 5 Days - ABG Interpretation ABG results: 06/01/17 17:15 ABG pH 7.498 H ABG pCO2 35 ABG pO2 48 L ABG HCO3 27.0 H ABG Total CO2 28.0 H ABG O2 Saturation 87.0 L ABG Base Excess 4.0 H Assessment and Plan (1) Acute and chronic respiratory failure with hypercapnia Current visit: Yes Status: Acute (2) Acute exacerbation of chronic obstructive airways disease Current visit: Yes Status: Acute (3) NSTEMI (non-ST elevated myocardial infarction) Current visit: Yes Status: Acute Assessment and Plan: Assessment Acute on chronic respiratory failure with hypercapnia and hypoxia - baseline home oxygen at 5L; intubated 05/21-extubated on 05/27, now on Bipap/NC Leukocytosis-trending down NSTEMI-peak troponin 3.09, diffuse T changes, s/p heart cath with 2 stents 05/28 COPD exacerbation Transaminitis Influenza A Hyperglycemia Alerted Mental Status Thrombocytopenia Constipation Resolved Bilateral lower lobe pneumonia Bacteremia Fever Hypokalemia Wide complex tachycardia s/p cardioversion Dehydration Chronic Medical: Cardiomyopathy-EF 30% by echo 05/21/17 Pulmonary nodule - Irregular 2.2cm left lower lobe pulmonary nodule Anemia, unspecified, stable Coronary Artery Disease Hypertension Sleep Apnea Diabetes Mellitus Type 2 - A1c on 04/17/17 was 6.4% GERD Osteoarthritis Peripheral neuropathy Fibromyalgia Depression Tobacco dependency Peripheral vascular disease Morbid obesity - BMI >40 Plan Extubated 05/27, continue Bipap/NC as per pulm--HCO3 and PCO2 both down yesterday compared to past and blood gas with worsening hypoxia-FiO2 increased to 5 L by nasal cannula/40% on BiPAP. IV steroids converted to prednisone per Dobbhoff this morning. On Tamiflu for influenza A-initiated 05/29. Pured diet with regular liquids per speech therapy, poor oral intake. Continue tube feeds and meds via Dobhoff, tube feedings at goal rate of 80ml/hr Discontinue IVF. Continue ASA and Bivalirudin per cardiology; also on beta jesenia and atorvastatin. Persistent hyperglycemia-scheduled short-acting insulin increased earlier today , continue corrective scale insulin and Lantus. Continue to work with PT/OT/Speech Haldol added when necessary for agitation/delirium. On usual doses of Wellbutrin and citalopram. Additionally has lorazepam prn. Patient and family advised he will require rehabilitation or care home before he can return home due to weakness. Bladder training initiated although do not believe patient will be ready to DC [place] in the immediate future. Lactulose today for ongoing constipation. Discussed with pulmonary; chest x-ray in a.m. DVT Prophylaxis: SCD's GI Prophylaxis: other (omeprazole) Resuscitation Status: Full Code - Physician Narrative Narrative: Date: 06/02/17 Time: 1615 Hospital Course Summary Disclaimer: The visit summary below is not to be considered part of the above Progress Note. Hospital Course: 05/17/17 Admission Admit to observation status under the care of Dr. Lopez. Sepsis work up initiated in ED. Patient meeting SIRS criteria based on tachycardia, tachypnea and reported fevers at home without obvious source. Initial lactate was 1.4 with repeat lactate decreased to 0.9. Blood cultures pending. WBC stable at 5.0. CXR revealed left basilar scarring without focal pneumonia. Respiratory panel was negative. Patient was given DuoNeb treatments and Solu-Medrol 125mg IV in ED. Will continue respiratory care with DuoNeb treatments QID and Q6H PRN as well as Solu -Medrol 125mg IV Q6H. History of diabetes with A1c on 04/17/17 at 6.4%. Continue home medications and monitor blood sugars closely given treatment with steroids. Sliding scale insulin as indicated for hyperglycemia. Patient was placed on BiPAP in ED with improvement. Continue BiPAP as indicated. Ativan as needed for anxiety and agitation while on BiPAP. Will monitor closely on telemetry with continuous pulse oximetry. Oxygen as needed to maintain SAO2 between 90-95%, weaning as able to baseline of 5L. SCDs for DVT prophylaxis. Given sudden onset of dyspnea, will obtain CT angio chest for further evaluation of PE - results pending. NS at 100cc/hr for hydration given decreased oral intake as on BiPAP. Monitor daily weight closely for signs of fluid overload. Recheck labs in AM to monitor blood counts, electrolytes and renal function. Patient wishes to maintain FULL CODE status. Upon discharge, patient's care will be returned to his PCP, Dr. Odom. 05/18/17 Don reports that his breathing is a little better today and is he is more alert. New cough with sputum production. 1 of the 2 blood cultures obtained on admission is POSITIVE for Streptococcus. Night telehospitalist was notified and Rocephin 2g IV Q24 hours was initiated for antimicrobial coverage. Given new cough, will try and obtain a sputum culture. Mucinex for mucolytic effect. Ricola for cough. Continue respiratory care including nebulized treatments. Continue to encourage BiPAP as indicated and supplemental oxygen to maintain SAO2 between 90 -95%. Wean oxygen to baseline of 5L as able. Given sudden onset of dyspnea, CT angio chest was obtained and revealed no PE but did note 2.2cm left lower lobe pulmonary nodule raising concern for primary lung malignancy and recommended further evaluation. Will discuss consideration of pulmonary consult for further evaluation. Continue Solu-Medrol 125mg IV Q6 hours. Anticipate initiation of tapering in near future. Blood sugars remain elevated, most likely steroid effect, ranging from 160's-> 200. Continue sliding scale insulin. Given recent CT with contrast, will hold metformin and restart 05/19/17. Continue NS at 75cc/hr for hydration. Monitor urinary output and daily weight closely for signs of fluid over load. Oral intake is good. Consider discontinuation of fluids this afternoon. Ativan as needed for anxiety and agitation while on BiPAP. Troponins continue to trend up slowing - 0.015, 0.017, 0.029, 0.045 and 0.048 this morning. Will recheck troponin at 1030 and continue to monitor closely on telemetry. Patient denies chest pain. SCDs for DVT prophylaxis. Recheck labs in AM to monitor blood counts, electrolytes and renal function. Discussed at length with patient and family the importance of smoking cessation. He admits to wanting to stop smoking and inquired about initiation of Chantix. Continue Wellbutrin for smoking cessation. With BC positive and starting IV antibiotics, will change admission status to inpatient. Anticipate greater than 2 midnights of care needed. 05/19/17 Continue with Rocephin for antimicrobial coverage. With lungs still very tight and congested, will continue with Solu-Medrol 125mg IV q 6 hours. Continue Neb treatments and acapella. Encourage use of BiPAP as much as able to help his chronic hypercapnea. Stressed with about the importance of him not smoking. She understand. Will consult with Dr Ashby for pulm evaluation. Will discontinue IVF. May restart metformin this evening. Sugars with elevation secondary to steroids. Did give Diamox 500mg x1 this am for fluid motivation and to help minimize contraction alkalosis. PT/OT to evaluate and initiate treatment tomorrow for his significant pulmonary debility. 05/20 Continue with Rocephin for antimicrobial coverage. One blood culture was positive with streptococcus Viridans, Repeat BC were drawn this morning. Scheduled breathing tx, IV solu-medrol, as well as oxygen and Bipap Appreciate Dr Ashby consultation. Likely require bronchoscopy for biopsy of lung mass. Continue to monitor BGM remain elevated. Metformin was resumed as well as sliding scale insulin. Encourage PT/OT for strengthening 05/21 Resp failure --> ABG shows resp acidosis and he was placed on BiPAP with improvement in color. Repeat ABG shows pH 7.12, pCO2 106, pO2 185. CXR ordered. BG 230. Chest pain --> EKG shows ST changes and widened QRS, poss a-flutter; troponin pending. Dr. Govea consulted. He's had 2 NTG but remains very hypertensive with SBP 220s. Pt failed to respond to adenosine, and subseqently was cardioverted with conversion to sinus tach. Rapid response activated and Dr. Ramírez was at bedside x20 min. Transferred to CCU, where pt was met by Dr. Govea for evaluation. Continue treatment for resp status including steroids and Rocephin. 05/22 Patient remains on a ventilator requiring continuous sedation. Oxygenation borderline on 40% FiO2-oxygen flow increased to 60% by pulmonary earlier today. Continue triple antibiotics (cefepime, Levaquin, vancomycin) pending sputum culture due to extensive pneumonia on CT/chest x-ray yesterday-not present on initial films. Peak troponin 3.09 with diffuse T-wave changes; discussed with Dr. Govea and will require cardiac catheterization in the future. Continue heparin drip. Blood pressure is uncontrolled-clonidine patch initiated earlier, IV hydralazine added as needed for systolic pressures above 180. OG placed-resume statin, SSRI, atenolol, and aspirin. Assess gastric residuals today-anticipate beginning tube feedings tomorrow. Adequate urine output, continue to monitor. Blood sugars remain elevated, off metformin at present. Increase basal insulin. 05/23 Patient remains on a ventilator requiring continuous sedation. Continue triple antibiotics (cefepime, Levaquin, vancomycin); suspect aspiration pneumonia-sputum culture normal charly. Extensive infiltrates on CT chest. Repeat chest x-ray in a.m. Fluid balance positive-roughly 5 L over several days, weight up-diuresis today. Potassium supplemented IV earlier today. Peak troponin 3.09 with diffuse T-wave changes; discussed with Dr. Govea and will require cardiac catheterization in the future. Continue heparin drip. Blood pressure remains elevated but improved from yesterday with addition of clonidine patch and resumption of atenolol per OG. IV hydralazine available as needed for systolic pressures above 180. OG placed 05/22-low volume gastric output overnight and tolerating medications per OG. Will initiate tube feedings with low glycemic formula at 20 mL per hour overnight. Nutrition consult. Blood sugars remain elevated, off metformin at present and on steroids. Increase basal insulin to 40 units anticipating further increase in blood sugar with initiation of tube feedings. 05/24 Remains ventilator dependent. Steroids decreased. Vancomycin discontinued, continue Levaquin and cefepime for probable aspiration pneumonia and Streptococcus viridans positive blood culture. Continue diuresis, blood pressures elevated-atenolol increased and lisinopril initiated to improve control. Tolerating tube feedings at low-volume, converted pulmonary formula with goal of 80 mL per hour. Platelet count dropping, heparin discontinued and bivalirudin initiated. 05/25 Tolerating spontaneous breathing trial, steroids decreased. Continues to require continuous sedation. Lisinopril increased to 20 mg to improve blood pressure control. Platelet count down to 100K; HIT Ab pending. Fevers overnight without evidence source, leukocytosis/left shift resolved improved. Lines to be cultured. 05/26 FiO2 titrated to 40%; diuresing well-continue same. Spontaneous breathing trial planned for the morning with possible extubation at that time. Cardiac status stable, no further tachyarrhythmias. Trend to improved blood pressures. Cardiac catheterization planned in the future. Remains on bivalirudin. Platelet count 86K today, HIT Ab pending. Tube feedings at goal, blood sugars significantly elevated-NovoLog scheduled every 6 hours and when necessary. Chest x-ray improved, remains on Levaquin and cefepime for probable aspiration pneumonia. Blood cultures drawn yesterday negative thus far. 05/27 Extubated this afternoon, OG discontinued in conjunction with extubation. CPAP initiated for respiratory support. Speech therapy, PT, OT consultations tomorrow. Anticipate significant reduction in fluid volume off sedating medications and tube feedings--> Lasix dose decreased to twice daily administration. Platelet count stabilizing, HIT Ab negative. Intermittent fever, remains on antibiotics for possible aspiration pneumonia. Repeat blood cultures negative. 05/29 Extubated 05/27 Placed on CPAP with home equipment. Baseline 5L Currently tolerating NC, oxygen support as needed to maintain sats and mentation , pulm consulted and following CXR-stable Leukocytosis-likely 2/ steroid effect, PCT negative, no fever x48 hours Cefepime and Levaquin currently. Vanc discontinued 05/24. Likely d/c abx today. Will consult ID for abx recs Failed speech therapy Continue tube feeds and meds via Dobhoff Monitor fluid status-hold evening dose of lasix Peak troponin 3.09 on 05/21/17 with diffuse T-wave changes; heart cath 05/28-now on ASA and Bivalirudin Monitor platelet count-currently WNL Monitor BP, adjust medications as needed Monitor glucose and continue insulin as ordered Discussed with nursing staff, and infectious disease 05/30 Extubated 05/27, continue Bipap/NC as per pulm Weaning steroids CXR-improving Leukocytosis Cefepime, Levaquin, Vanc discontinued Continue Tamiflu Failed speech therapy, continue to re-eval Continue tube feeds and meds via Dobhoff, feeds at 40ml/hr, goal of 80ml/hr Discontinue lasix, give 1L NS and re-eval fluid status Continue ASA and Bivalirudin per cardiology 05/31 Failed speech therapy, continue to re-eval Tube feedings and medications per Dobbhoff, goal 80 mL per hour tube feeding. Adjust insulin for hyperglycemia. 06/01 describes increased confusion/irritability-haloperidol initiated as needed. Converting to prednisone per Dobbhoff in a.m.; blood gas with mild hypoxia-FiO2 increased. Continue nutritional support per Dobbhoff; insulins again adjusted for persistent hyperglycemia. Chest pain described overnight, EKG unchanged. 06/02 Complaints of chest pain/dyspnea again this morning-resolved with position change. Intermittent confusion, haloperidol given twice overnight. Persistent hyperglycemia, scheduled short acting insulin adjusted further. Solu-Medrol discontinued, prednisone initiated per Dobbhoff this morning. Lactulose administered per Dobbhoff for ongoing constipation; MiraLAX added with recommendation the patient take it orally. Patient and family advised he will require rehabilitation before discharge home can be entertained.
[2017-06-02] MEDS: HYDROCODONE/APAP 7.5 MG/325 MG TABLET PO PRN (17:00)
[2017-06-02] MEDS: ATORVASTATIN 40 MG TABLET PO SCH (20:22)
[2017-06-02] MEDS: INSULIN GLARGINE 100unit/ml INJECTION SQ SCH (20:23)
[2017-06-03] MEDS: GUAIFENESIN 200mg/10ml ORAL LIQUID PO SCH ×4 (00:23→17:36)
[2017-06-03] MEDS: INSULIN ASPART 100unit/ml INJECTION SQ PRN ×3 (00:27→19:42)
[2017-06-03] MEDS: METOCLOPRAMIDE 10mg/10ml ORAL LIQUID GT SCH ×4 (02:12→23:15)
[2017-06-03] MEDS: ALBUTEROL/IPRATROPIUM 2.5mg-0.5mg/3ml NEB AEROSOL SCH ×6 (03:06→23:09)
[2017-06-03] MEDS: INSULIN ASPART 100unit/ml INJECTION SQ SCH ×4 (05:18→19:14)
[2017-06-03] MEDS: OMEPRAZOLE 20 MG CAPSULE PO SCH (05:37)
[2017-06-03] MEDS: BUDESONIDE INH.SOLN 0.5mg/2ml NEB AEROSOL SCH ×2 (07:45→18:57)
--- NOTE | 2017-06-03 07:52 | XRay Report ---
Indication: respiratory failure/hypoxia/COPD/influenza A XR chest 1V: Comparison: 05/28/2017 Technique: Single portable upright chest Findings: Since previous study little change is identified. The heart size remains at the upper range of normal with some atelectatic changes in the lung bases. No focal prequel pulmonary consolidation or significant pleural effusions identified. No new bony abnormality appreciated. Impression: 1. Stable heart size and central vascularity. 2. Basilar atelectasis. .
[2017-06-03] MEDS: POLYETHYL GLYCOL 3350 17gm PACKET PO SCH (09:19)
[2017-06-03] MEDS: ATENOLOL 25 MG TABLET PO SCH ×2 (09:20→22:48)
[2017-06-03] MEDS: LISINOPRIL 10 MG TABLET PO SCH (09:20)
[2017-06-03] MEDS: BuPROPion SR 150mg (12HR) TABLET PO SCH ×2 (09:20→22:48)
[2017-06-03] MEDS: GABAPENTIN 300 MG CAPSULE PO SCH ×3 (09:20→22:48)
[2017-06-03] MEDS: PredniSONE 20 MG TABLET PO SCH (09:20)
[2017-06-03] MEDS: ASPIRIN *EC* 81 MG TABLET PO SCH (09:20)
[2017-06-03] MEDS: CITALOPRAM 40 MG TABLET PO SCH (09:21)
[2017-06-03] MEDS: TICAGRELOR 90 MG TABLET PO SCH ×2 (09:21→22:48)
[2017-06-03] MEDS: AMLODIPINE 10 MG TABLET PO SCH (09:21)
[2017-06-03] MEDS: OSELTAMIVIR 30mg/5ml ORAL LIQUID DOB SCH (09:27)
--- NOTE | 2017-06-03 11:09 | Pulmonology Progress Note ---
Subjective Principal diagnosis: SOB, respiratory failure Interval history: Pt currently up to chair, states he is feeling much better. + cough with some sputum noted, no SOB at this time. Exam Vital signs: Temperature 96.3 F L 06/03/17 09:02 Pulse Rate 83 06/03/17 09:02 Respiratory Rate 29 H 06/03/17 10:35 Blood Pressure 121/65 06/03/17 09:02 Pulse Oximetry 100 06/03/17 10:35 Inpatient Medications: Generic Name Dose Route Start Last Admin Trade Name Freq PRN Reason Stop Dose Admin Acetaminophen 325 - 650 mg 05/17/17 10:08 06/01/17 21:51 Tylenol PO 650 mg Q5H PRN Administration Discomfort Hydrocodone Bitart/Acetaminophen 1 tab 05/17/17 10:14 06/02/17 17:00 [place] 7.5/325 PO 1 tab Q6H PRN Administration Pain Al Hydroxide/Mg Hydroxide 30 ml 05/28/17 09:24 Maalox Plus PO Q3H PRN Indigestion Albuterol/Ipratropium 3 ml 05/17/17 10:11 Duoneb AEROSOL RTQID PRN Albuterol/Ipratropium 3 ml 05/21/17 15:15 06/03/17 10:35 Duoneb AEROSOL 3 ml Q4H KSENIA Administration Amlodipine Besylate 10 mg 05/24/17 13:46 06/03/17 09:21 Norvasc PO 10 mg DAILY KSENIA Administration Aspirin 81 mg 05/28/17 09:24 06/03/17 09:20 Ecotrin PO 81 mg DAILY KSENIA Administration Atenolol 25 mg 05/29/17 09:00 06/03/17 09:20 Tenormin PO 25 mg BID KSENIA Administration Atorvastatin Calcium 80 mg 05/28/17 21:00 06/02/17 20:22 Lipitor PO 80 mg HS KSENIA Administration Bisacodyl 10 mg 05/27/17 15:11 Dulcolax RECTALLY DAILY PRN Constipation Bisacodyl 5 - 10 mg 05/28/17 09:24 Dulcolax PO DAILY PRN Constipation Budesonide 0.5 mg 05/17/17 19:00 06/03/17 07:45 Pulmicort Inhalation AEROSOL 0.5 mg RTBID KSENIA Administration Bupropion HCl 150 mg 05/17/17 21:00 06/03/17 09:20 Wellbutrin Sr PO 150 mg BID KSENIA Administration Citalopram Hydrobromide 40 mg 05/18/17 09:00 06/03/17 09:21 Celexa PO 40 mg DAILY KSENIA Administration Clonidine HCl 0.1 mg 05/22/17 09:00 05/29/17 08:01 Catapres-Tts 1 TD 0.1 mg Q7D@0900 KSENIA Administration Clonidine HCl 1 removal 05/29/17 08:59 05/29/17 08:13 Catapres Patch Removal TD 1 removal Q7D KSENIA Administration Gabapentin 300 mg 05/17/17 15:00 06/03/17 09:20 Neurontin PO 300 mg TID KSENIA Administration Glucose 37.5 gm 05/17/17 10:12 Glutose 15 PO PRN PRN Hypoglycemia Guaifenesin 400 mg 05/29/17 12:00 06/03/17 05:37 Robitussin Liq PO 400 mg Q6H [facility] Administration Haloperidol Decanoate 1 mg 06/01/17 17:43 06/02/17 17:00 Haldol Liquid GT 1 mg Q4H PRN Administration Insulin Aspart 2 - 14 unit 05/21/17 11:43 06/03/17 05:51 Novolog SQ 2 unit SS PRN Administration Hyperglycemia Protocol Insulin Aspart 18 unit 06/02/17 09:58 06/03/17 09:22 Novolog SQ 18 unit Q6H KSENIA Administration Insulin Glargine 60 unit 06/01/17 21:00 06/02/17 20:23 Lantus SQ 60 unit HS [facility] Administration Lisinopril 20 mg 06/01/17 09:00 06/03/17 09:20 Prinivil PO 20 mg DAILY KSENIA Administration Lorazepam 0.5 - 1 mg 05/28/17 09:24 06/02/17 13:52 Ativan PO 0.5 mg Q4H PRN Administration Anxiety Magnesium Hydroxide 30 ml 05/28/17 09:24 Mom PO DAILY PRN Constipation Metoclopramide HCl 5 mg 05/30/17 14:00 06/03/17 09:19 Reglan GT 5 mg Q6H KSENIA Administration Nitroglycerin 0.4 mg 05/31/17 23:49 06/02/17 08:11 Nitrostat SL 0.4 mg Q5M PRN Administration Chest pain Omeprazole 40 mg 05/18/17 06:30 06/03/17 05:37 Prilosec PO 40 mg ACB KSENIA Administration Ondansetron HCl 4 mg 05/28/17 09:24 Zofran IVP Q6H PRN Nausea &/or vomiting Polyethylene Glycol 17 gm 06/03/17 09:00 06/03/17 09:19 Miralax PO 17 gm DAILY KSENIA Administration Prednisone 60 mg 06/02/17 08:00 06/03/17 09:20 Deltasone 20 Mg PO 60 mg WB KSENIA Administration Sodium Chloride 10 - 80 ml 05/17/17 05:20 06/02/17 05:32 Iv Flush IVF 10 ml PRN PRN Administration Flushing Sodium Chloride 1 spray 05/19/17 11:42 05/19/17 16:37 Deep Sea Nasal Moisturizing [place] EA NOSTRIL 1 spray PRN PRN Administration Congestion Sodium Chloride 500 ml 05/25/17 21:40 05/25/17 21:52 Normal Saline IV 500 ml PRN PRN Administration Ticagrelor 90 mg 05/28/17 21:01 06/03/17 09:21 Brilinta PO 90 mg Q12H KSENIA Administration Discontinued Medications Generic Name Dose Route Start Last Admin Trade Name Freq PRN Reason Stop Dose Admin Acetaminophen 650 mg 05/21/17 15:10 Tylenol Supp [place] Q5H PRN Pain Acetaminophen 325 - 650 mg 05/28/17 09:24 Tylenol PO Q5H PRN Pain Hydrocodone Bitart/Acetaminophen 1 tab 05/17/17 21:00 05/31/17 08:42 [place] 7.5/325 PO 1 tab BID KSENIA Administration Hydrocodone Bitart/Acetaminophen 1 - 2 tab 05/28/17 09:24 [place] 5/325 PO Q5H PRN Pain Acetazolamide 500 mg 05/19/17 10:51 05/19/17 11:25 Diamox PO 05/19/17 10:52 500 mg O ONE Administration Adenosine 12 mg 05/21/17 09:17 05/21/17 08:50 Adenocard IVP 05/21/17 09:18 12 mg O ONE Administration Adenosine 6 mg 05/21/17 09:18 05/21/17 09:23 Adenocard IVP 05/21/17 09:19 6 mg O ONE Administration Albuterol/Ipratropium 6 ml 05/17/17 05:19 05/17/17 05:33 Duoneb AEROSOL 05/17/17 05:20 6 ml O ONE Administration Albuterol/Ipratropium 3 ml 05/17/17 11:00 05/21/17 18:22 Duoneb AEROSOL Not Given RTQID KSENIA Aspirin 81 mg 05/18/17 09:00 05/23/17 08:26 Asa PO Not Given DAILY [facility] Aspirin 81 mg 05/22/17 16:00 05/31/17 08:42 Asa GT 81 mg DAILY [facility] Administration Atenolol 25 mg 05/18/17 09:00 05/24/17 08:58 Tenormin PO 25 mg DAILY [facility] Administration Atenolol 50 mg 05/25/17 09:00 05/28/17 12:30 Tenormin PO Not Given DAILY [facility] Atenolol 25 mg 05/24/17 09:40 05/24/17 11:09 Tenormin PO 05/24/17 09:41 25 mg O ONE Administration Atropine Sulfate 0.5 mg 05/28/17 09:24 Atropine IVP Q5M PRN Bradycardia Benzocaine 1 lozenge 05/20/17 18:54 Cepacol Sore Throat Lozenge MM Q2HR PRN Sore throat Bisacodyl 10 mg 05/28/17 09:24 Dulcolax RECTALLY DAILY PRN Constipation Bivalirudin 250 mg 05/24/17 14:15 Angiomax IV NOW [facility] Enoxaparin Sodium 1 each 05/18/17 10:47 05/18/17 12:54 Pharmacy Consult - Lovenox 05/18/17 10:48 1 each O ONE Administration Enoxaparin Sodium 50 mg 05/18/17 11:45 05/20/17 08:37 Lovenox SQ 50 mg DAILY [facility] Administration Enoxaparin Sodium 142 mg 05/27/17 17:00 05/28/17 09:34 Lovenox SQ 142 mg DAILY [facility] Administration Furosemide 20 mg 05/18/17 09:00 05/20/17 08:37 Lasix PO 20 mg DAILY [facility] Administration Furosemide 40 mg 05/21/17 09:37 05/21/17 09:45 Lasix IVP 05/21/17 09:38 40 mg ONCE ONE Administration Furosemide 20 mg 05/23/17 21:00 05/24/17 08:59 Lasix IVP 20 mg Q12HR KSENIA Administration Furosemide 20 mg 05/24/17 17:00 05/27/17 09:31 Lasix IVP 20 mg Q8HR KSENIA Administration Furosemide 20 mg 05/27/17 21:00 05/29/17 08:09 Lasix IVP 20 mg Q12H KS[facility]IA Administration Furosemide 20 mg 05/29/17 09:00 Lasix IVP DAILY KSENIA Guaifenesin 1,200 mg 05/18/17 09:00 05/29/17 08:14 Mucinex La PO Not Given BID KSENIA Heparin Sodium (Beef Lung) 5,000 unit 05/21/17 09:23 05/21/17 10:07 Heparin Bolus IVP 05/21/17 09:24 5,000 unit O ONE Administration Heparin Sodium (Beef Lung) 3,000 unit 05/21/17 17:45 05/21/17 17:53 Heparin Bolus IVP 05/21/17 17:46 3,000 unit O ONE Administration Heparin Sodium (Beef Lung) 3,000 unit 05/22/17 03:37 05/22/17 03:46 Heparin Bolus IVP 05/22/17 03:38 3,000 unit O ONE Administration Heparin Sodium (Porcine) 1 each 05/21/17 09:08 Pharmacy Consult - Heparin MC 05/21/17 09:09 ONE TIME ONE Hydralazine HCl 5 mg 05/22/17 08:47 05/22/17 10:09 Apresoline IVP 5 mg Q6H PRN Administration Hypertension Hydralazine HCl 10 mg 05/22/17 15:01 05/28/17 06:06 Apresoline IVP 10 mg Q4H PRN Administration Hypertension Sodium Chloride 1,000 mls @ 999.9 mls/hr 05/17/17 05:44 05/17/17 11:20 Normal Saline IV 05/17/17 06:43 Infused .Q1H ONE Infusion Sodium Chloride 1,000 mls @ 75 mls/hr 05/17/17 10:08 05/19/17 11:19 Normal Saline IV Infused .[id number] KSENIA Infusion Ceftriaxone Sodium 2 gm/ 100 mls @ 200 mls/hr 05/18/17 01:15 05/18/17 01:50 Sodium Chloride IV Infused Q24H [facility] Infusion Ceftriaxone Sodium 2 gm/ 50 mls @ 100 mls/hr 05/18/17 21:00 05/20/17 21:55 Sodium Chloride IV Infused Q24H [facility] Infusion Heparin Sodium (Porcine) 20,000 unit in 500 mls @ 44 mls/hr 05/21/17 09:30 13:17 Heparin Drip IV Infused .[id number] KSENIA Titration Protocol Dexmedetomidine HCl 200 mcg/ 52 mls @ 6.87 mls/hr 05/21/17 09:52 05/21/17 20: 00 Sodium Chloride IV 05/21/17 20:29 0 mcg/kg/hr .Q7H35M PRN 0 mls/hr Protocol Titration 0.2 MCG/KG/HR Propofol 1,000 mg in 100 mls @ 3.969 mls/hr 05/21/17 10:39 05/21/17 14:28 Diprivan IV 0 mcg/kg/min .Q24H PRN 0 mls/hr Protocol Infusion 5 MCG/KG/MIN Fentanyl 1,000 mcg/ Sodium 100 mls @ 0 mls/hr 05/21/17 13:02 05/27/17 14:45 Chloride IV Infused .Q0M PRN Titration Protocol Per Protocol Sodium Chloride 250 mls @ 999.9 mls/hr 05/21/17 13:15 05/21/17 14:28 Normal Saline IV 05/21/17 13:29 Infused .Q15M [facility] Infusion Cefepime HCl 1 gm/ Sodium 50 mls @ 100 mls/hr 05/21/17 15:30 05/29/17 10:46 Chloride IV Infused Q6H [facility] Infusion Levofloxacin/Dextrose 750 mg in 150 mls @ 100 mls/hr 05/21/17 16:00 05/28/17 17:15 Levaquin Premix IV Infused Q24H [facility] Infusion Vancomycin HCl 1,500 mg/ 500 mls @ 250 mls/hr 05/21/17 18:00 05/24/17 12:15 Sodium Chloride IV Infused Q8H [facility] Infusion Dexmedetomidine HCl 1,000 mcg/ 260 mls @ 6.87 mls/hr 05/21/17 20:30 05/27/17 14:45 Sodium Chloride IV 05/27/17 14:45 Infused .Q24H PRN Titration Protocol 0.2 MCG/KG/HR Potassium Chloride 10 meq in 100 mls @ 100 mls/hr 05/23/17 09:45 05/23/17 17: 34 Potassium Chloride Premix IV 05/23/17 13:44 Infused Q1H [facility] Infusion Heparin Sodium (Porcine) 20,000 unit in 500 mls @ 45 mls/hr 05/23/17 16:00 06:16 Heparin Drip IV Not Given .Q11H7M KSENIA Protocol Potassium Chloride 10 meq in 100 mls @ 100 mls/hr 05/24/17 09:45 05/24/17 15: 56 Potassium Chloride Premix IV 05/24/17 13:44 Not Given Q1H [facility] Potassium Chloride 10 meq/ 105 mls @ 105 mls/hr 05/24/17 11:45 05/24/17 17:00 Sodium Chloride IV 05/24/17 15:44 Infused Q1H [facility] Infusion Bivalirudin 250 mg/ Sodium 500 mls @ 43.2 mls/hr 05/24/17 15:15 05/27/17 17: 34 Chloride IV Not Given .[id number] KSENIA Sodium Chloride 1,000 mls @ 75 mls/hr 05/28/17 07:45 05/28/17 14:00 Normal Saline IV Infused .[id number] [facility] Infusion Sodium Chloride 1,000 mls @ 500 mls/hr 05/30/17 10:14 05/30/17 10:41 Normal Saline IV 05/30/17 12:13 500 mls/hr .Q2H ONE Administration Sodium Chloride 1,000 mls @ 60 mls/hr 05/30/17 17:00 05/31/17 06:00 Normal Saline IV 05/31/17 09:39 60 mls/hr .[id number] [facility] Infusion Insulin Aspart 1 - 5 unit 05/17/17 10:12 05/18/17 06:06 Novolog SQ 2 unit SS PRN Administration Hyperglycemia Protocol Insulin Aspart 2 - 8 unit 05/18/17 08:22 05/21/17 07:30 Novolog SQ 3 unit SS PRN Administration Hyperglycemia Protocol Insulin Aspart 15 unit 05/20/17 10:32 05/20/17 10:36 Novolog SQ 05/20/17 10:33 15 unit ONE TIME ONE Administration Insulin Aspart 10 unit 05/26/17 12:00 05/26/17 13:54 Novolog SQ Not Given Q6H [facility]EN[facility] Insulin Aspart 10 unit 05/26/17 15:00 05/27/17 21:06 Novolog SQ Not Given 0300,0900,1500,2100 [facility] Insulin Aspart 10 unit 05/28/17 15:00 Novolog SQ Q6HR [facility] Insulin Aspart 10 unit 05/28/17 18:00 05/31/17 06:11 Novolog SQ 10 unit Q6H KS[facility]IA Administration Insulin Aspart 12 unit 05/31/17 08:41 06/01/17 04:33 Novolog SQ Not Given Q6H [facility] Insulin Aspart 15 unit 06/01/17 15:00 06/02/17 10:37 Novolog SQ Not Given Q6H [facility] Insulin Glargine 10 unit 05/21/17 21:00 05/21/17 20:14 Lantus SQ 10 unit HS KSENIA Administration Insulin Glargine 20 unit 05/22/17 21:00 05/22/17 20:14 Lantus SQ 20 unit HS [facility] Administration Insulin Glargine 40 unit 05/23/17 21:00 05/30/17 21:34 Lantus SQ 40 unit HS [facility] Administration Insulin Glargine 50 unit 05/31/17 08:41 05/31/17 21:06 Lantus SQ 50 unit HS [facility] Administration Labetalol HCl 10 mg 05/21/17 20:40 05/22/17 06:05 Trandate IVP 10 mg Q4H PRN Administration INCREASED blood pressure Lactulose 20 gm 06/02/17 10:00 06/02/17 11:09 Lactulose PO 06/02/17 10:01 20 gm O ONE Administration Lisinopril 10 mg 05/24/17 16:15 05/31/17 08:42 Prinivil PO 10 mg DAILY KSENIA Administration Lisinopril 10 mg 05/31/17 15:18 05/31/17 15:43 Prinivil PO 05/31/17 15:19 10 mg O ONE Administration Lorazepam 1 mg 05/17/17 06:16 05/17/17 06:56 Ativan PO 05/17/17 06:17 1 mg O ONE Administration Lorazepam 0.5 mg 05/17/17 10:13 05/24/17 15:55 Ativan Inj IVP 0.5 mg Q6H PRN Administration Lorazepam 1 mg 05/24/17 19:46 05/31/17 01:43 Ativan Inj IVP 1 mg Q2H PRN Administration Agitation/Air hunger/Pain Lorazepam 0.5 - 1 mg 05/28/17 09:24 Ativan Inj IVP Q4H PRN Anxiety Magnesium Hydroxide 30 ml 05/26/17 12:41 05/26/17 13:53 Mom GT 05/26/17 12:42 30 ml O ONE Administration Menthol 1 lozenge 05/18/17 08:19 Ricola Sf MM PRN PRN Cough Metformin HCl 500 mg 05/17/17 17:30 05/18/17 10:00 Glucophage PO Not Given BIDWM KSENIA Metformin HCl 500 mg 05/19/17 09:00 05/21/17 10:52 Glucophage PO Not Given BIDWM KS[facility]IA Methylprednisolone Sodium Succinate 125 mg 05/17/17 06:26 05/17/17 06:53 Solu-Medrol IM 05/17/17 06:27 125 mg O ONE Administration Methylprednisolone Sodium Succinate 125 mg 05/17/17 15:00 05/20/17 08:37 Solu-Medrol IVP 125 mg Q6HR KS[facility]IA Administration Methylprednisolone Sodium Succinate 80 mg 05/20/17 15:00 05/24/17 08:57 Solu-Medrol IVP 80 mg Q6HR [facility] Administration Methylprednisolone Sodium Succinate 80 mg 05/24/17 17:00 05/26/17 08:23 Solu-Medrol IVP 80 mg Q8HR [facility] Administration Methylprednisolone Sodium Succinate 80 mg 05/26/17 21:00 05/29/17 08:15 Solu-Medrol IVP 80 mg Q12HR [facility] Administration Methylprednisolone Sodium Succinate 60 mg 05/29/17 21:00 06/01/17 21:57 Solu-Medrol IVP 06/02/17 04:00 60 mg Q12HR KS[facility] Administration Metoclopramide HCl 5 mg 05/23/17 17:30 05/30/17 10:42 Reglan GT 5 mg Q6H KSNEIA Administration Metoclopramide HCl 5 - 10 mg 05/28/17 09:24 Reglan IVP Q6H PRN Nausea &/or vomiting Metoprolol Tartrate 15 mg 05/21/17 09:18 05/21/17 09:05 Lopressor IVP 05/21/17 09:19 15 mg ONCE ONE Administration Metoprolol Tartrate 5 mg 05/28/17 10:01 05/28/17 10:00 Lopressor IVP 05/28/17 10:02 5 mg ONCE ONE Administration Morphine Sulfate 1 - 2 mg 05/17/17 10:08 05/24/17 17:56 Morphine Sulfate Inj IVP 2 mg Q2H PRN Administration Pain Morphine Sulfate 2 - 4 mg 05/28/17 09:24 05/28/17 10:17 Morphine Sulfate Inj IVP 05/29/17 09:23 4 mg Q2H PRN Administration Pain Morphine Sulfate 2 - 4 mg 05/28/17 09:24 06/02/17 08:19 Morphine Sulfate Inj IVP 2 mg Q5M PRN Administration Angina Nitroglycerin 0.4 mg 05/17/17 10:14 05/21/17 08:35 Nitrostat SL 0.4 mg Q5MIN3 PRN Administration CP Nitroglycerin 0.4 mg 05/28/17 09:24 Nitrostat SL Q5M PRN Angina --Pom--(Itraconazole 200 mg 05/17/17 21:00 05/29/17 09:39 [Itraconazole] 200 PO Not Given Mg) BID KSENIA Ondansetron HCl 4 mg 05/17/17 10:08 05/19/17 02:45 Zofran IVP 4 mg Q6H PRN Administration Nausea &/or vomiting Oseltamivir Phosphate 75 mg 05/29/17 21:00 06/03/17 09:27 Tamiflu 06/03/17 09:01 75 mg BID KSENIA Administration Pantoprazole Sodium 40 mg 05/22/17 09:00 05/31/17 08:44 Protonix Iv IVP 40 mg DAILY KSENIA Administration Pharmacy Consult 1 each 05/17/17 10:32 Pharmacy Consult - Fall Risk XX 05/17/17 10:33 ONE TIME ONE Pharmacy Consult 1 each 05/27/17 10:17 Pharmacy Consult - Fall Risk XX 05/27/17 10:18 ONE TIME ONE Potassium Chloride 40 meq 05/24/17 18:10 05/26/17 06:13 Kcl Oral Liq 20 Meq/15 Ml PO Not Given BIDWM KSENIA Potassium Chloride 40 meq 05/25/17 13:00 05/26/17 08:22 Kcl Oral Liq 20 Meq/15 Ml PO 40 meq QID KSENIA Administration Potassium Chloride 40 meq 05/26/17 12:00 05/27/17 12:04 Kcl Oral Liq 20 Meq/15 Ml PO 40 meq TIDWM KSENIA Administration Potassium Chloride 40 meq 05/27/17 17:30 05/29/17 07:59 Kcl Oral Liq 20 Meq/15 Ml PO 40 meq BIDWM KS[facility] Administration Potassium Chloride 40 meq 05/29/17 09:00 05/30/17 08:42 Kcl Oral Liq 20 Meq/15 Ml PO 40 meq DAILY KSEN[facility] Administration Promethazine HCl 12.5 - 25 mg 05/28/17 09:24 Phenergan Inj IVP Q6HR PRN Nausea &/or vomiting Simvastatin 20 mg 05/17/17 21:00 05/27/17 20:36 Zocor PO Not Given HS KSENIA Vancomycin HCl 1 each 05/21/17 15:19 05/21/17 15:53 Pharmacy Consult - Vancomycin 05/21/17 15:20 1 each O ONE Administration - Constitutional no acute distress, morbidly obese, cooperative - Routine HEENT Exam Head: Present: normocephalic, atraumatic Eye: Present: EOMI, PERRL ENT: Present: mucous membranes moist - Routine Neck Exam Present: supple, trachea midline - Routine Respiratory Exam Present: decreased breath sounds. Absent: accessory muscle use, patient mechanically ventilated - Routine Cardiovascular Exam Present: RRR, S1, S2, no murmur - Routine Abdominal Exam Present: soft, normoactive bowel sounds - Routine Extremities Exam Present: no edema, non tender, full ROM - Routine Back/Spine/Pelvis Exam Back/Spine: Present: full ROM - Routine Skin Exam Present: intact, dry - Routine Neurological Exam Present: alert, oriented X3, CN II-XII intact - Routine Psychiatric Exam Present: normal affect, normal thought process, cooperative - Urinary Catheter Management Urethral Cath placed during this visit: yes Insertion date: 05/21/17 Results - Laboratory Findings Laboratory: Laboratory Results - last 48 hr 06/01/17 06/01/17 06/01/17 11:44 17:15 18:59 WBC RBC Hgb Hct MCV MCH MCHC RDW Std Deviation Plt Count MPV Immature Gran % (Auto) Neut % (Auto) Lymph % (Auto) Drew % (Auto) Eos % (Auto) Baso % (Auto) Neut # (Auto) Lymph # (Auto) Drew # (Auto) Eos # (Auto) Baso # (Auto) Abs Immat Gran (auto) Neutrophils % (Manual) Band Neutrophils % Lymphocytes % (Manual) Monocytes % (Manual) Neutrophils # (Manual) Band Neutrophils # Lymphocytes # (Manual) Monocytes # (Manual) Nucleated RBCs RBC Morph Comment Specimen Type Na ABG pH 7.498 H ABG pCO2 35 ABG pO2 48 L ABG HCO3 27.0 H ABG Total CO2 28.0 H ABG O2 Saturation 87.0 L ABG Base Excess 4.0 H O2 Delivery Method High flow kiley can, % FiO2 (liters per min) 2.5 Turbidity Sodium Potassium Chloride Carbon Dioxide Anion Gap BUN Creatinine GFR Calculation BUN/Creatinine Ratio Glucose Glucometer 249 336 Calculated Osmolality Calcium Phosphorus Magnesium Total Bilirubin Icterus Index AST ALT Alkaline Phosphatase B-Natriuretic Peptide Total Protein Albumin Globulin Albumin/Globulin Ratio Specimen Hemolysis 06/01/17 06/02/17 06/02/17 21:40 00:01 04:16 WBC 16.3 H RBC 4.25 L Hgb 12.6 L Hct 39.9 L MCV 93.9 MCH 29.6 MCHC 31.6 RDW Std Deviation 44.1 Plt Count 107 L MPV TNP Immature Gran % (Auto) Neut % (Auto) Lymph % (Auto) Drew % (Auto) Eos % (Auto) Baso % (Auto) Neut # (Auto) Lymph # (Auto) Drew # (Auto) Eos # (Auto) Baso # (Auto) Abs Immat Gran (auto) Neutrophils % (Manual) 94.0 H Band Neutrophils % 1.0 Lymphocytes % (Manual) 4.0 L Monocytes % (Manual) 1.0 Neutrophils # (Manual) 15.3 H Band Neutrophils # 0.2 Lymphocytes # (Manual) 0.7 L Monocytes # (Manual) 0.2 Nucleated RBCs 1 RBC Morph Comment Normal Specimen Type ABG pH ABG pCO2 ABG pO2 ABG HCO3 ABG Total CO2 ABG O2 Saturation ABG Base Excess O2 Delivery Method FiO2 (liters per min) Turbidity Sodium Potassium Chloride Carbon Dioxide Anion Gap BUN Creatinine GFR Calculation BUN/Creatinine Ratio Glucose Glucometer 299 243 Calculated Osmolality Calcium Phosphorus Magnesium Total Bilirubin Icterus Index AST ALT Alkaline Phosphatase B-Natriuretic Peptide Total Protein Albumin Globulin Albumin/Globulin Ratio Specimen Hemolysis 06/02/17 06/02/1718 04:16 06:40 12:09 WBC RBC Hgb Hct MCV MCH MCHC RDW Std Deviation Plt Count MPV Immature Gran % (Auto) Neut % (Auto) Lymph % (Auto) Drew % (Auto) Eos % (Auto) Baso % (Auto) Neut # (Auto) Lymph # (Auto) Drew # (Auto) Eos # (Auto) Baso # (Auto) Abs Immat Gran (auto) Neutrophils % (Manual) Band Neutrophils % Lymphocytes % (Manual) Monocytes % (Manual) Neutrophils # (Manual) Band Neutrophils # Lymphocytes # (Manual) Monocytes # (Manual) Nucleated RBCs RBC Morph Comment Specimen Type ABG pH ABG pCO2 ABG pO2 ABG HCO3 ABG Total CO2 ABG O2 Saturation ABG Base Excess O2 Delivery Method FiO2 (liters per min) Turbidity < 20 Sodium 141 Potassium 4.6 Chloride 102 Carbon Dioxide 29 Anion Gap 10 BUN 33.0 H Creatinine 0.6 L GFR Calculation 137 BUN/Creatinine Ratio 55 H Glucose 305 H Glucometer 245 187 Calculated Osmolality 289 H Calcium 8.8 Phosphorus 3.2 Magnesium 2.3 Total Bilirubin 0.80 Icterus Index < 2 AST 26 ALT 78 H Alkaline Phosphatase 90 B-Natriuretic Peptide 2100 H Total Protein 5.4 L Albumin 2.9 L Globulin 2.5 Albumin/Globulin Ratio 1.2 Specimen Hemolysis < 15 06/02/17 06/02/17 06/03/17 18:09 20:07 00:14 WBC RBC Hgb Hct MCV MCH MCHC RDW Std Deviation Plt Count MPV Immature Gran % (Auto) Neut % (Auto) Lymph % (Auto) Drew % (Auto) Eos % (Auto) Baso % (Auto) Neut # (Auto) Lymph # (Auto) Drew # (Auto) Eos # (Auto) Baso # (Auto) Abs Immat Gran (auto) Neutrophils % (Manual) Band Neutrophils % Lymphocytes % (Manual) Monocytes % (Manual) Neutrophils # (Manual) Band Neutrophils # Lymphocytes # (Manual) Monocytes # (Manual) Nucleated RBCs RBC Morph Comment Specimen Type ABG pH ABG pCO2 ABG pO2 ABG HCO3 ABG Total CO2 ABG O2 Saturation ABG Base Excess O2 Delivery Method FiO2 (liters per min) Turbidity Sodium Potassium Chloride Carbon Dioxide Anion Gap BUN Creatinine GFR Calculation BUN/Creatinine Ratio Glucose Glucometer 330 315 276 Calculated Osmolality Calcium Phosphorus Magnesium Total Bilirubin Icterus Index AST ALT Alkaline Phosphatase B-Natriuretic Peptide Total Protein Albumin Globulin Albumin/Globulin Ratio Specimen Hemolysis 06/03/17 06/03/17 06/03/17 04:16 04:16 05:46 WBC 13.4 H RBC 3.91 L Hgb 11.7 L Hct 37.2 L MCV 95.1 MCH 29.9 MCHC 31.5 RDW Std Deviation 44.6 Plt Count 93 L MPV TNP Immature Gran % (Auto) Not performed Neut % (Auto) Not performed Lymph % (Auto) Not performed Drew % (Auto) Not performed Eos % (Auto) Not performed Baso % (Auto) Not performed Neut # (Auto) Not performed Lymph # (Auto) Not performed Drew # (Auto) Not performed Eos # (Auto) Not performed Baso # (Auto) Not performed Abs Immat Gran (auto) Not performed Neutrophils % (Manual) 80.0 H Band Neutrophils % 2.0 Lymphocytes % (Manual) 13.0 L Monocytes % (Manual) 5.0 Neutrophils # (Manual) 10.7 H Band Neutrophils # 0.3 Lymphocytes # (Manual) 1.7 Monocytes # (Manual) 0.7 Nucleated RBCs RBC Morph Comment Normal Specimen Type ABG pH ABG pCO2 ABG pO2 ABG HCO3 ABG Total CO2 ABG O2 Saturation ABG Base Excess O2 Delivery Method FiO2 (liters per min) Turbidity < 20 Sodium 139 Potassium 4.2 Chloride 101 Carbon Dioxide 31 H Anion Gap 7 BUN 35.0 H Creatinine 0.6 L GFR Calculation 137 BUN/Creatinine Ratio 58 H Glucose 198 H Glucometer 196 Calculated Osmolality 282 H Calcium 8.5 Phosphorus 3.3 Magnesium 2.2 Total Bilirubin Icterus Index < 2 AST ALT Alkaline Phosphatase B-Natriuretic Peptide Total Protein Albumin 2.7 L Globulin Albumin/Globulin Ratio Specimen Hemolysis < 15 - Diagnostic Findings Chest x-ray: image reviewed (LLL atelectasis otherwise stable) Assessment and Plan - Assessment and Plan Acute on Chronic Hypoxic Hypercapnic Respiratory Failure LLL mass 2.2 cm - plan OP biopsy COPD exacerbation Influenza B Chest Pain/Wide complex tachycardia s/p cardioversion CAD s/p stent ANGELLA/OHS Morbid Obesity Thrombocytopenia - resolved Plan: Pt currently on O2 at 5L, otherwise using bipap 10/7, rate 16, Fio2 30%, qHs and prn. On a/a q4hr, pulmicort and prednisone, wean to 50, no wheezing or SOB noted at this time. S/P tamiflu for Influenza, still on brilanta for CAD s/p stent. No CP at this time, CV following. - Time Spent With Patient Total time spent is greater than 50% in coordination of care (as documented) at patient's floor/unit and/or counseling patient: less than 15 minutes
--- NOTE | 2017-06-03 17:39 | Cardiology Progress Note ---
<Andreina Grijalva M - Last Filed: 06/04/17 15:43> Exam Vital signs: Temperature 96.7 F L 06/03/17 16:41 Pulse Rate 81 06/03/17 16:41 Respiratory Rate 22 06/03/17 16:41 Blood Pressure 111/67 06/03/17 16:41 Pulse Oximetry 97 06/03/17 16:41 Inpatient Medications: Generic Name Dose Route Start Last Admin Trade Name Freq PRN Reason Stop Dose Admin Acetaminophen 325 - 650 mg 05/17/17 10:08 06/01/17 21:51 Tylenol PO 650 mg Q5H PRN Administration Discomfort Hydrocodone Bitart/Acetaminophen 1 tab 05/17/17 10:14 06/02/17 17:00 [place] 7.5/325 PO 1 tab Q6H PRN Administration Pain Al Hydroxide/Mg Hydroxide 30 ml 05/28/17 09:24 Maalox Plus PO Q3H PRN Indigestion Albuterol/Ipratropium 3 ml 05/17/17 10:11 Duoneb AEROSOL RTQID PRN Albuterol/Ipratropium 3 ml 05/21/17 15:15 06/03/17 14:40 Duoneb AEROSOL 3 ml Q4H [facility] Administration Amlodipine Besylate 10 mg 05/24/17 13:46 06/03/17 09:21 Norvasc PO 10 mg DAILY [facility] Administration Aspirin 81 mg 05/28/17 09:24 06/03/17 09:20 Ecotrin PO 81 mg DAILY [facility] Administration Atenolol 25 mg 05/29/17 09:00 06/03/17 09:20 Tenormin PO 25 mg BID [facility] Administration Atorvastatin Calcium 80 mg 05/28/17 21:00 06/02/17 20:22 Lipitor PO 80 mg HS [facility] Administration Bisacodyl 10 mg 05/27/17 15:11 Dulcolax RECTALLY DAILY PRN Constipation Bisacodyl 5 - 10 mg 05/28/17 09:24 Dulcolax PO DAILY PRN Constipation Budesonide 0.5 mg 05/17/17 19:00 06/03/17 07:45 Pulmicort Inhalation AEROSOL 0.5 mg RTBID [facility] Administration Bupropion HCl 150 mg 05/17/17 21:00 06/03/17 09:20 Wellbutrin Sr PO 150 mg BID [facility] Administration Citalopram Hydrobromide 40 mg 05/18/17 09:00 06/03/17 09:21 Celexa PO 40 mg DAILY [facility] Administration Clonidine HCl 0.1 mg 05/22/17 09:00 05/29/17 08:01 Catapres-Tts 1 TD 0.1 mg Q7D@0900 [facility] Administration Clonidine HCl 1 removal 05/29/17 08:59 05/29/17 08:13 Catapres Patch Removal TD 1 removal Q7D [facility] Administration Gabapentin 300 mg 05/17/17 15:00 06/03/17 14:15 Neurontin PO 300 mg TID [facility] Administration Glucose 37.5 gm 05/17/17 10:12 Glutose 15 PO PRN PRN Hypoglycemia Guaifenesin 400 mg 05/29/17 12:00 06/03/17 12:03 Robitussin Liq PO 400 mg Q6H [facility] Administration Haloperidol Decanoate 1 mg 06/01/17 17:43 06/02/17 17:00 Haldol Liquid GT 1 mg Q4H PRN Administration Insulin Aspart 2 - 14 unit 05/21/17 11:43 06/03/17 05:51 Novolog SQ 2 unit SS PRN Administration Hyperglycemia Protocol Insulin Aspart 18 unit 06/02/17 09:58 06/03/17 09:22 Novolog SQ 18 unit Q6H [facility] Administration Insulin Glargine 60 unit 06/01/17 21:00 06/02/17 20:23 Lantus SQ 60 unit HS [facility] Administration Lisinopril 20 mg 06/01/17 09:00 06/03/17 09:20 Prinivil PO 20 mg DAILY [facility] Administration Lorazepam 0.5 - 1 mg 05/28/17 09:24 06/02/17 13:52 Ativan PO 0.5 mg Q4H PRN Administration Anxiety Magnesium Hydroxide 30 ml 05/28/17 09:24 Mom PO DAILY PRN Constipation Metoclopramide HCl 5 mg 05/30/17 14:00 06/03/17 14:14 Reglan GT 5 mg Q6H [facility] Administration Nitroglycerin 0.4 mg 05/31/17 23:49 06/02/17 08:11 Nitrostat SL 0.4 mg Q5M PRN Administration Chest pain Omeprazole 40 mg 05/18/17 06:30 06/03/17 05:37 Prilosec PO 40 mg ACB [facility] Administration Ondansetron HCl 4 mg 05/28/17 09:24 Zofran IVP Q6H PRN Nausea &/or vomiting Polyethylene Glycol 17 gm 06/03/17 09:00 06/03/17 09:19 Miralax PO 17 gm DAILY [facility] Administration Prednisone 50 mg 06/03/17 11:15 Deltasone 50 Mg PO WB [facility] Sodium Chloride 10 - 80 ml 05/17/17 05:20 06/02/17 05:32 Iv Flush IVF 10 ml PRN PRN Administration Flushing Sodium Chloride 1 spray 05/19/17 11:42 05/19/17 16:37 Deep Sea Nasal Moisturizing [place] EA NOSTRIL 1 spray PRN PRN Administration Congestion Sodium Chloride 500 ml 05/25/17 21:40 05/25/17 21:52 Normal Saline IV 500 ml PRN PRN Administration Ticagrelor 90 mg 05/28/17 21:01 06/03/17 09:21 Brilinta PO 90 mg Q12H [facility] Administration Discontinued Medications Generic Name Dose Route Start Last Admin Trade Name Freq PRN Reason Stop Dose Admin Acetaminophen 650 mg 05/21/17 15:10 Tylenol Supp MD Q5H PRN Pain Acetaminophen 325 - 650 mg 05/28/17 09:24 Tylenol PO Q5H PRN Pain Hydrocodone Bitart/Acetaminophen 1 tab 05/17/17 21:00 05/31/17 08:42 [place] 7.5/325 PO 1 tab BID [facility] Administration Hydrocodone Bitart/Acetaminophen 1 - 2 tab 05/28/17 09:24 [place] 5/325 PO Q5H PRN Pain Acetazolamide 500 mg 05/19/17 10:51 05/19/17 11:25 Diamox PO 05/19/17 10:52 500 mg O ONE Administration Adenosine 12 mg 05/21/17 09:17 05/21/17 08:50 Adenocard IVP 05/21/17 09:18 12 mg O ONE Administration Adenosine 6 mg 05/21/17 09:18 05/21/17 09:23 Adenocard IVP 05/21/17 09:19 6 mg O ONE Administration Albuterol/Ipratropium 6 ml 05/17/17 05:19 05/17/17 05:33 Duoneb AEROSOL 05/17/17 05:20 6 ml O ONE Administration Albuterol/Ipratropium 3 ml 05/17/17 11:00 05/21/17 18:22 Duoneb AEROSOL Not Given RTQID [facility] Aspirin 81 mg 05/18/17 09:00 05/23/17 08:26 Asa PO Not Given DAILY [facility] Aspirin 81 mg 05/22/17 16:00 05/31/17 08:42 Asa GT 81 mg DAILY [facility] Administration Atenolol 25 mg 05/18/17 09:00 05/24/17 08:58 Tenormin PO 25 mg DAILY [facility] Administration Atenolol 50 mg 05/25/17 09:00 05/28/17 12:30 Tenormin PO Not Given DAILY [facility] Atenolol 25 mg 05/24/17 09:40 05/24/17 11:09 Tenormin PO 05/24/17 09:41 25 mg O ONE Administration Atropine Sulfate 0.5 mg 05/28/17 09:24 Atropine IVP Q5M PRN Bradycardia Benzocaine 1 lozenge 05/20/17 18:54 Cepacol Sore Throat Lozenge MM Q2HR PRN Sore throat Bisacodyl 10 mg 05/28/17 09:24 Dulcolax RECTALLY DAILY PRN Constipation Bivalirudin 250 mg 05/24/17 14:15 Angiomax IV NOW [facility] Enoxaparin Sodium 1 each 05/18/17 10:47 05/18/17 12:54 Pharmacy Consult - Lovenox MC 05/18/17 10:48 1 each O ONE Administration Enoxaparin Sodium 50 mg 05/18/17 11:45 05/20/17 08:37 Lovenox SQ 50 mg DAILY [facility] Administration Enoxaparin Sodium 142 mg 05/27/17 17:00 05/28/17 09:34 Lovenox SQ 142 mg DAILY [facility] Administration Furosemide 20 mg 05/18/17 09:00 05/20/17 08:37 Lasix PO 20 mg DAILY [facility] Administration Furosemide 40 mg 05/21/17 09:37 05/21/17 09:45 Lasix IVP 05/21/17 09:38 40 mg ONCE ONE Administration Furosemide 20 mg 05/23/17 21:00 05/24/17 08:59 Lasix IVP 20 mg Q12HR [facility] Administration Furosemide 20 mg 05/24/17 17:00 05/27/17 09:31 Lasix IVP 20 mg Q8HR [facility] Administration Furosemide 20 mg 05/27/17 21:00 05/29/17 08:09 Lasix IVP 20 mg Q12H [facility] Administration Furosemide 20 mg 05/29/17 09:00 Lasix IVP DAILY [facility] Guaifenesin 1,200 mg 05/18/17 09:00 05/29/17 08:14 Mucinex La PO Not Given BID [facility] Heparin Sodium (Beef Lung) 5,000 unit 05/21/17 09:23 05/21/17 10:07 Heparin Bolus IVP 05/21/17 09:24 5,000 unit O ONE Administration Heparin Sodium (Beef Lung) 3,000 unit 05/21/17 17:45 05/21/17 17:53 Heparin Bolus IVP 05/21/17 17:46 3,000 unit O ONE Administration Heparin Sodium (Beef Lung) 3,000 unit 05/22/17 03:37 05/22/17 03:46 Heparin Bolus IVP 05/22/17 03:38 3,000 unit O ONE Administration Heparin Sodium (Porcine) 1 each 05/21/17 09:08 Pharmacy Consult - Heparin MC 05/21/17 09:09 ONE TIME ONE Hydralazine HCl 5 mg 05/22/17 08:47 05/22/17 10:09 Apresoline IVP 5 mg Q6H PRN Administration Hypertension Hydralazine HCl 10 mg 05/22/17 15:01 05/28/17 06:06 Apresoline IVP 10 mg Q4H PRN Administration Hypertension Sodium Chloride 1,000 mls @ 999.9 mls/hr 05/17/17 05:44 05/17/17 11:20 Normal Saline IV 05/17/17 06:43 Infused .Q1H ONE Infusion Sodium Chloride 1,000 mls @ 75 mls/hr 05/17/17 10:08 05/19/17 11:19 Normal Saline IV Infused .[id number] [facility] Infusion Ceftriaxone Sodium 2 gm/ 100 mls @ 200 mls/hr 05/18/17 01:15 05/18/17 01:50 Sodium Chloride IV Infused Q24H [facility] Infusion Ceftriaxone Sodium 2 gm/ 50 mls @ 100 mls/hr 05/18/17 21:00 05/20/17 21:55 Sodium Chloride IV Infused Q24H [facility] Infusion Heparin Sodium (Porcine) 20,000 unit in 500 mls @ 44 mls/hr 05/21/17 09:30 13:17 Heparin Drip IV Infused .[id number] [facility] Titration Protocol Dexmedetomidine HCl 200 mcg/ 52 mls @ 6.87 mls/hr 05/21/17 09:52 05/21/17 20: 00 Sodium Chloride IV 05/21/17 20:29 0 mcg/kg/hr .Q7H35M PRN 0 mls/hr Protocol Titration 0.2 MCG/KG/HR Propofol 1,000 mg in 100 mls @ 3.969 mls/hr 05/21/17 10:39 05/21/17 14:28 Diprivan IV 0 mcg/kg/min .Q24H PRN 0 mls/hr Protocol Infusion 5 MCG/KG/MIN Fentanyl 1,000 mcg/ Sodium 100 mls @ 0 mls/hr 05/21/17 13:02 05/27/17 14:45 Chloride IV Infused .Q0M PRN Titration Protocol Per Protocol Sodium Chloride 250 mls @ 999.9 mls/hr 05/21/17 13:15 05/21/17 14:28 Normal Saline IV 05/21/17 13:29 Infused .Q15M [facility] Infusion Cefepime HCl 1 gm/ Sodium 50 mls @ 100 mls/hr 05/21/17 15:30 05/29/17 10:46 Chloride IV Infused Q6H [facility] Infusion Levofloxacin/Dextrose 750 mg in 150 mls @ 100 mls/hr 05/21/17 16:00 05/28/17 17:15 Levaquin Premix IV Infused Q24H [facility] Infusion Vancomycin HCl 1,500 mg/ 500 mls @ 250 mls/hr 05/21/17 18:00 05/24/17 12:15 Sodium Chloride IV Infused Q8H [facility] Infusion Dexmedetomidine HCl 1,000 mcg/ 260 mls @ 6.87 mls/hr 05/21/17 20:30 05/27/17 14:45 Sodium Chloride IV 05/27/17 14:45 Infused .Q24H PRN Titration Protocol 0.2 MCG/KG/HR Potassium Chloride 10 meq in 100 mls @ 100 mls/hr 05/23/17 09:45 05/23/17 17: 34 Potassium Chloride Premix IV 05/23/17 13:44 Infused Q1H [facility] Infusion Heparin Sodium (Porcine) 20,000 unit in 500 mls @ 45 mls/hr 05/23/17 16:00 06:16 Heparin Drip IV Not Given .Q11H7M [facility] Protocol Potassium Chloride 10 meq in 100 mls @ 100 mls/hr 05/24/17 09:45 05/24/17 15: 56 Potassium Chloride Premix IV 05/24/17 13:44 Not Given Q1H [facility] Potassium Chloride 10 meq/ 105 mls @ 105 mls/hr 05/24/17 11:45 05/24/17 17:00 Sodium Chloride IV 05/24/17 15:44 Infused Q1H [facility] Infusion Bivalirudin 250 mg/ Sodium 500 mls @ 43.2 mls/hr 05/24/17 15:15 05/27/17 17: 34 Chloride IV Not Given .[id number] [facility] Sodium Chloride 1,000 mls @ 75 mls/hr 05/28/17 07:45 05/28/17 14:00 Normal Saline IV Infused .[id number] [facility] Infusion Sodium Chloride 1,000 mls @ 500 mls/hr 05/30/17 10:14 05/30/17 10:41 Normal Saline IV 05/30/17 12:13 500 mls/hr .Q2H ONE Administration Sodium Chloride 1,000 mls @ 60 mls/hr 05/30/17 17:00 05/31/17 06:00 Normal Saline IV 05/31/17 09:39 60 mls/hr .[id number] [facility] Infusion Insulin Aspart 1 - 5 unit 05/17/17 10:12 05/18/17 06:06 Novolog SQ 2 unit SS PRN Administration Hyperglycemia Protocol Insulin Aspart 2 - 8 unit 05/18/17 08:22 05/21/17 07:30 Novolog SQ 3 unit SS PRN Administration Hyperglycemia Protocol Insulin Aspart 15 unit 05/20/17 10:32 05/20/17 10:36 Novolog SQ 05/20/17 10:33 15 unit ONE TIME ONE Administration Insulin Aspart 10 unit 05/26/17 12:00 05/26/17 13:54 Novolog SQ Not Given Q6H [facility] Insulin Aspart 10 unit 05/26/17 15:00 05/27/17 21:06 Novolog SQ Not Given 0300,0900,1500,2100 [facility] Insulin Aspart 10 unit 05/28/17 15:00 Novolog SQ Q6HR [facility] Insulin Aspart 10 unit 05/28/17 18:00 05/31/17 06:11 Novolog SQ 10 unit Q6H [facility] Administration Insulin Aspart 12 unit 05/31/17 08:41 06/01/17 04:33 Novolog SQ Not Given Q6H [facility] Insulin Aspart 15 unit 06/01/17 15:00 06/02/17 10:37 Novolog SQ Not Given Q6H [facility] Insulin Glargine 10 unit 05/21/17 21:00 05/21/17 20:14 Lantus SQ 10 unit HS [facility] Administration Insulin Glargine 20 unit 05/22/17 21:00 05/22/17 20:14 Lantus SQ 20 unit HS [facility] Administration Insulin Glargine 40 unit 05/23/17 21:00 05/30/17 21:34 Lantus SQ 40 unit HS [facility] Administration Insulin Glargine 50 unit 05/31/17 08:41 05/31/17 21:06 Lantus SQ 50 unit HS [facility] Administration Labetalol HCl 10 mg 05/21/17 20:40 05/22/17 06:05 Trandate IVP 10 mg Q4H PRN Administration INCREASED blood pressure Lactulose 20 gm 06/02/17 10:00 06/02/17 11:09 Lactulose PO 06/02/17 10:01 20 gm O ONE Administration Lisinopril 10 mg 05/24/17 16:15 05/31/17 08:42 Prinivil PO 10 mg DAILY [facility] Administration Lisinopril 10 mg 05/31/17 15:18 05/31/17 15:43 Prinivil PO 05/31/17 15:19 10 mg O ONE Administration Lorazepam 1 mg 05/17/17 06:16 05/17/17 06:56 Ativan PO 05/17/17 06:17 1 mg O ONE Administration Lorazepam 0.5 mg 05/17/17 10:13 05/24/17 15:55 Ativan Inj IVP 0.5 mg Q6H PRN Administration Lorazepam 1 mg 05/24/17 19:46 05/31/17 01:43 Ativan Inj IVP 1 mg Q2H PRN Administration Agitation/Air hunger/Pain Lorazepam 0.5 - 1 mg 05/28/17 09:24 Ativan Inj IVP Q4H PRN Anxiety Magnesium Hydroxide 30 ml 05/26/17 12:41 05/26/17 13:53 Mom GT 05/26/17 12:42 30 ml O ONE Administration Menthol 1 lozenge 05/18/17 08:19 Ricola Sf MM PRN PRN Cough Metformin HCl 500 mg 05/17/17 17:30 05/18/17 10:00 Glucophage PO Not Given BIDWM [facility] Metformin HCl 500 mg 05/19/17 09:00 05/21/17 10:52 Glucophage PO Not Given BIDWM [facility] Methylprednisolone Sodium Succinate 125 mg 05/17/17 06:26 05/17/17 06:53 Solu-Medrol IM 05/17/17 06:27 125 mg O ONE Administration Methylprednisolone Sodium Succinate 125 mg 05/17/17 15:00 05/20/17 08:37 Solu-Medrol IVP 125 mg Q6HR [facility] Administration Methylprednisolone Sodium Succinate 80 mg 05/20/17 15:00 05/24/17 08:57 Solu-Medrol IVP 80 mg Q6HR [facility] Administration Methylprednisolone Sodium Succinate 80 mg 05/24/17 17:00 05/26/17 08:23 Solu-Medrol IVP 80 mg Q8HR [facility] Administration Methylprednisolone Sodium Succinate 80 mg 05/26/17 21:00 05/29/17 08:15 Solu-Medrol IVP 80 mg Q12HR [facility] Administration Methylprednisolone Sodium Succinate 60 mg 05/29/17 21:00 06/01/17 21:57 Solu-Medrol IVP 06/02/17 04:00 60 mg Q12HR [facility] Administration Metoclopramide HCl 5 mg 05/23/17 17:30 05/30/17 10:42 Reglan GT 5 mg Q6H [facility] Administration Metoclopramide HCl 5 - 10 mg 05/28/17 09:24 Reglan IVP Q6H PRN Nausea &/or vomiting Metoprolol Tartrate 15 mg 05/21/17 09:18 05/21/17 09:05 Lopressor IVP 05/21/17 09:19 15 mg ONCE ONE Administration Metoprolol Tartrate 5 mg 05/28/17 10:01 05/28/17 10:00 Lopressor IVP 05/28/17 10:02 5 mg ONCE ONE Administration Morphine Sulfate 1 - 2 mg 05/17/17 10:08 05/24/17 17:56 Morphine Sulfate Inj IVP 2 mg Q2H PRN Administration Pain Morphine Sulfate 2 - 4 mg 05/28/17 09:24 05/28/17 10:17 Morphine Sulfate Inj IVP 05/29/17 09:23 4 mg Q2H PRN Administration Pain Morphine Sulfate 2 - 4 mg 05/28/17 09:24 06/02/17 08:19 Morphine Sulfate Inj IVP 2 mg Q5M PRN Administration Angina Nitroglycerin 0.4 mg 05/17/17 10:14 05/21/17 08:35 Nitrostat SL 0.4 mg Q5MIN3 PRN Administration CP Nitroglycerin 0.4 mg 05/28/17 09:24 Nitrostat SL Q5M PRN Angina --Pom--(Itraconazole 200 mg 05/17/17 21:00 05/29/17 09:39 [Itraconazole] 200 PO Not Given Mg) BID [facility] Ondansetron HCl 4 mg 05/17/17 10:08 05/19/17 02:45 Zofran IVP 4 mg Q6H PRN Administration Nausea &/or vomiting Oseltamivir Phosphate 75 mg 05/29/17 21:00 06/03/17 09:27 Tamiflu 06/03/17 09:01 75 mg BID [facility] Administration Pantoprazole Sodium 40 mg 05/22/17 09:00 05/31/17 08:44 Protonix Iv IVP 40 mg DAILY [facility] Administration Pharmacy Consult 1 each 05/17/17 10:32 Pharmacy Consult - Fall Risk XX 05/17/17 10:33 ONE TIME ONE Pharmacy Consult 1 each 05/27/17 10:17 Pharmacy Consult - Fall Risk XX 05/27/17 10:18 ONE TIME ONE Potassium Chloride 40 meq 05/24/17 18:10 05/26/17 06:13 Kcl Oral Liq 20 Meq/15 Ml PO Not Given BIDWM [facility] Potassium Chloride 40 meq 05/25/17 13:00 05/26/17 08:22 Kcl Oral Liq 20 Meq/15 Ml PO 40 meq QID [facility] Administration Potassium Chloride 40 meq 05/26/17 12:00 05/27/17 12:04 Kcl Oral Liq 20 Meq/15 Ml PO 40 meq TIDWM [facility] Administration Potassium Chloride 40 meq 05/27/17 17:30 05/29/17 07:59 Kcl Oral Liq 20 Meq/15 Ml PO 40 meq BIDWM [facility] Administration Potassium Chloride 40 meq 05/29/17 09:00 05/30/17 08:42 Kcl Oral Liq 20 Meq/15 Ml PO 40 meq DAILY [facility] Administration Prednisone 60 mg 06/02/17 08:00 06/03/17 09:20 Deltasone 20 Mg PO 60 mg WB [facility] Administration Promethazine HCl 12.5 - 25 mg 05/28/17 09:24 Phenergan Inj IVP Q6HR PRN Nausea &/or vomiting Simvastatin 20 mg 05/17/17 21:00 05/27/17 20:36 Zocor PO Not Given HS [facility] Vancomycin HCl 1 each 05/21/17 15:19 05/21/17 15:53 Pharmacy Consult - Vancomycin MC 05/21/17 15:20 1 each O ONE Administration - Constitutional no acute distress, obese, cooperative - Routine HEENT Exam Head: Present: normocephalic ENT: Present: mucous membranes moist - Routine Neck Exam Absent: JVD, carotid bruit - Routine Chest/Breast/Axilla Exam Chest wall: Present: tenderness - Routine Respiratory Exam Present: decreased breath sounds. Absent: CTA bilaterally - Routine Cardiovascular Exam Present: RRR, no murmur - Routine Abdominal Exam Present: soft - Routine Extremities Exam Present: edema - Routine Skin Exam Present: intact, dry, warm - Routine Neurological Exam Present: alert - Routine Psychiatric Exam Present: normal affect - Additional findings Additional findings: Acetaminophen (Tylenol) 325 - 650 mg PO Q5H PRN PRN Reason: Discomfort Last Admin: 06/01/17 21:51 Dose: 650 mg Hydrocodone Bitart/Acetaminophen ([place] 7.5/325) 1 tab PO Q6H PRN PRN Reason: Pain Last Admin: 06/02/17 17:00 Dose: 1 tab Al Hydroxide/Mg Hydroxide (Maalox Plus) 30 ml PO Q3H PRN PRN Reason: Indigestion Albuterol/Ipratropium (Duoneb) 3 ml AEROSOL RTQID PRN Albuterol/Ipratropium (Duoneb) 3 ml AEROSOL Q4H [facility] Last Admin: 06/03/17 14:40 Dose: 3 ml Amlodipine Besylate (Norvasc) 10 mg PO DAILY [facility] Last Admin: 06/03/17 09:21 Dose: 10 mg Aspirin (Ecotrin) 81 mg PO DAILY [facility] Last Admin: 06/03/17 09:20 Dose: 81 mg Atenolol (Tenormin) 25 mg PO BID [facility] Last Admin: 06/03/17 09:20 Dose: 25 mg Atorvastatin Calcium (Lipitor) 80 mg PO HS [facility] Last Admin: 06/02/17 20:22 Dose: 80 mg Bisacodyl (Dulcolax) 10 mg RECTALLY DAILY PRN PRN Reason: Constipation Bisacodyl (Dulcolax) 5 - 10 mg PO DAILY PRN PRN Reason: Constipation Budesonide (Pulmicort Inhalation) 0.5 mg AEROSOL RTBID [facility] Last Admin: 06/03/17 07:45 Dose: 0.5 mg Bupropion HCl (Wellbutrin Sr) 150 mg PO BID [facility] Last Admin: 06/03/17 09:20 Dose: 150 mg Citalopram Hydrobromide (Celexa) 40 mg PO DAILY [facility] Last Admin: 06/03/17 09:21 Dose: 40 mg Clonidine HCl (Catapres-Tts 1) 0.1 mg TD Q7D@0900 [facility] Last Admin: 05/29/17 08:01 Dose: 0.1 mg Clonidine HCl ([place] Patch Removal) 1 removal TD Q7D [facility] Last Admin: 05/29/17 08:13 Dose: 1 removal Gabapentin (Neurontin) 300 mg PO TID [facility] Last Admin: 06/03/17 14:15 Dose: 300 mg Glucose (Glutose 15) 37.5 gm PO PRN PRN PRN Reason: Hypoglycemia Guaifenesin (Robitussin Liq) 400 mg PO Q6H [facility] Last Admin: 06/03/17 17:36 Dose: 400 mg Haloperidol Decanoate (Haldol Liquid) 1 mg GT Q4H PRN Last Admin: 06/02/17 17:00 Dose: 1 mg Insulin Aspart (Novolog) 2 - 14 unit SQ SS PRN; Protocol PRN Reason: Hyperglycemia Last Admin: 06/03/17 05:51 Dose: 2 unit Insulin Aspart (Novolog) 18 unit SQ Q6H [facility] Last Admin: 06/03/17 17:37 Dose: 18 unit Insulin Glargine (Lantus) 60 unit SQ HS [facility] Last Admin: 06/02/17 20:23 Dose: 60 unit Lisinopril (Prinivil) 20 mg PO DAILY [facility] Last Admin: 06/03/17 09:20 Dose: 20 mg Lorazepam (Ativan) 0.5 - 1 mg PO Q4H PRN PRN Reason: Anxiety Last Admin: 06/02/17 13:52 Dose: 0.5 mg Magnesium Hydroxide (Mom) 30 ml PO DAILY PRN PRN Reason: Constipation Metoclopramide HCl (Reglan) 5 mg GT Q6H [facility] Last Admin: 06/03/17 14:14 Dose: 5 mg Nitroglycerin (Nitrostat) 0.4 mg SL Q5M PRN PRN Reason: Chest pain Last Admin: 06/02/17 08:11 Dose: 0.4 mg Omeprazole (Prilosec) 40 mg PO ACB [facility] Last Admin: 06/03/17 05:37 Dose: 40 mg Ondansetron HCl (Zofran) 4 mg IVP Q6H PRN PRN Reason: Nausea &/or vomiting Polyethylene Glycol (Miralax) 17 gm PO DAILY [facility] Last Admin: 06/03/17 09:19 Dose: 17 gm Prednisone (Deltasone 50 Mg) 50 mg PO WB [facility] Sodium Chloride (Iv Flush) 10 - 80 ml IVF PRN PRN PRN Reason: Flushing Last Admin: 06/02/17 05:32 Dose: 10 ml Sodium Chloride (Deep [place] Nasal Moisturizing [place]) 1 spray EA NOSTRIL PRN PRN PRN Reason: Congestion Last Admin: 05/19/17 16:37 Dose: 1 spray Sodium Chloride (Normal Saline) 500 ml IV PRN PRN Last Admin: 05/25/17 21:52 Dose: 500 ml Ticagrelor (Brilinta) 90 mg PO Q12H [facility] Last Admin: 06/03/17 09:21 Dose: 90 mg - Urinary Catheter Management Urethral Cath placed during this visit: yes Insertion date: 05/21/17 Results 06/03/17 04:16 06/03/17 04:16 CBC 06/03/17 Range/Units 04:16 WBC 13.4 H (4.5-11.0) T/MM3 RBC 3.91 L (4.50-5.90) M/MM3 Hgb 11.7 L (13.5-17.5) GM/DL Hct 37.2 L (41-53) % Plt Count 93 L (130-400) T/MM3 Neut # (Auto) Not performed Lymph # (Auto) Not performed [place] # (Auto) Not performed Eos # (Auto) Not performed Baso # (Auto) Not performed Comprehensive Metabolic Panel 06/03/17 Range/Units 04:16 Sodium 139 (134-144) MEQ/L Potassium 4.2 (3.6-5) MEQ/L Chloride 101 (98-107) MEQ/L Carbon Dioxide 31 H (22-30) MEQ/L BUN 35.0 H (9-20) MG/DL Creatinine 0.6 L (0.8-1.5) MG/DL Glucose 198 H (75-110) MG/DL Calcium 8.5 (8.4-10.2) MG/DL Albumin 2.7 L (3.5-5.0) G/DL Intake and Output 06/03/17 06/03/17 06/03/17 06:59 14:59 22:59 Intake Total 1320 / 1320 1018 / 1018 Output Total 1300 / 1300 700 / 700 Balance 318 / 318 Intake: Oral 0 / 0 Tube Feeding 820 / 820 518 / 518 Oral 820 / 820 518 / 518 Intake, Gastric Tube Irrigant 500 / 500 500 / 500 Amount Oral 500 / 500 500 / 500 Output: Urine 700 / 700 Urine Amount (Catheter) 1300 / 1300 Other: Urine Appearance Clear Clear Urine Color Pale Dark Yellow Yellow Urine Odor Normal Weight 307 lb 8.717 oz Patient Weight 06/04/17 06:59 Weight 307 lb 8.717 oz Assessment and Plan - Assessment and Plan (1) Chest pain Current visit: Yes Status: Acute (2) Community acquired pneumonia Current visit: No Status: Acute (3) Acute and chronic respiratory failure with hypercapnia Current visit: Yes Status: Acute (4) Atherosclerotic heart disease of [place] coronary artery without angina pectoris Current visit: Yes Status: Chronic (5) Essential (primary) hypertension Current visit: Yes Status: Chronic (6) Type 2 diabetes mellitus without complications Current visit: Yes Status: Chronic (7) Obesity (BMI 30-39.9) Current visit: Yes Status: Chronic (8) ANGELLA (obstructive sleep apnea) Current visit: Yes Status: Chronic (9) NSTEMI (non-ST elevated myocardial infarction) Current visit: Yes Status: Acute - Assessment and Plan 05/21/17 Reportedly had severe chest pain, was johnson and diaphoretic as well as tachypneic followed by decreased LOC. - HR 140s, sinus tach vs. A flutter - Given Adenosine 6mg IVP, followed by 12mg X2 without slowing HR. - Sedation given and attempted DCCV which was unsuccessful. - Following 2nd dose of Metoprolol 5mg IV heart rate slowed enough to confirm it is Sinus tachycardia. - Repeat EKG obtained, started on Heparin drip. - Trend Troponin - 2D echo - CTA for emboli/ dissection 05/22/17 NSTEMI: - Troponin: 1) 0.015, 2) 1.500, 3) 3.090, 4) 2.100 - EKG: SR, anterolateral ischemia V3-V6, inferior ischemia II/aVf - Left heart cath when more stable - Continue Heparin drip. HTN: Catapress TTS 1 patch while NPO - Hydralazine prn as ordered - Labetalol prn, hold HR <65 05/23/17 BP improving - EKG now please 05/24/17 Stop Heparin drip, get HIT panel Spoke with pharmacy, start Angiomax at 0.15mg/kg/hr (21.6mg/hr) until HIT panel resulted. Continues to have ST depression on Telemetry and EKG. Add Amlodipine 10mg per OG tube for better BP control 05/27/17 - Plan left heart cath with possible PCI in the am - Stop Angiomax drip - Give Lovenox 1mg/kg SQ tonight - Watch platelets closely 05/29/17 He had a left heart cath yesterday with successful primary stents of LAD using a 2.75 x 18 and another 2.75 x 18 drug-eluting Resolute [place] stents. - Aspirin 81mg daily, Brilinta 90mg BID for dual antiplatelet therapy - Change Simvastatin to Atorvastatin 80mg at HS - Continue to Hold Metformin - Change Atenolol 50mg daily to 25mg BID - Decrease IV Lasix to daily and K+ to daily as BUN is rising and is post cath. 05/30/17 BP remains variable. Consider changing Catapres to an oral agent tomorrow Thank you for allowing us to participate in the care of this patient, we will follow along with you. 05/31/17 Increase Lisinopril to 20mg daily, give additional 10mg now - Leave Catapres as ordered for now 06/03/17 Continues to improve, BP well controlled, Hgb stable. no change in cardiac plan for now Hospital Course Summary Disclaimer: The visit summary below is not to be considered part of the above Progress Note. Hospital Course: 05/17/17 Admission Admit to observation status under the care of Dr. Lopez. Sepsis work up initiated in ED. Patient meeting SIRS criteria based on tachycardia, tachypnea and reported fevers at home without obvious source. Initial lactate was 1.4 with repeat lactate decreased to 0.9. Blood cultures pending. WBC stable at 5.0. CXR revealed left basilar scarring without focal pneumonia. Respiratory panel was negative. Patient was given DuoNeb treatments and Solu-Medrol 125mg IV in ED. Will continue respiratory care with DuoNeb treatments QID and Q6H PRN as well as Solu -Medrol 125mg IV Q6H. History of diabetes with A1c on 04/17/17 at 6.4%. Continue home medications and monitor blood sugars closely given treatment with steroids. Sliding scale insulin as indicated for hyperglycemia. Patient was placed on BiPAP in ED with improvement. Continue BiPAP as indicated. Ativan as needed for anxiety and agitation while on BiPAP. Will monitor closely on telemetry with continuous pulse oximetry. Oxygen as needed to maintain SAO2 between 90-95%, weaning as able to baseline of 5L. SCDs for DVT prophylaxis. Given sudden onset of dyspnea, will obtain CT angio chest for further evaluation of PE - results pending. NS at 100cc/hr for hydration given decreased oral intake as on BiPAP. Monitor daily weight closely for signs of fluid overload. Recheck labs in AM to monitor blood counts, electrolytes and renal function. Patient wishes to maintain FULL CODE status. Upon discharge, patient's care will be returned to his PCP, Dr. Odom. 05/18/17 Don reports that his breathing is a little better today and is he is more alert. New cough with sputum production. 1 of the 2 blood cultures obtained on admission is POSITIVE for Streptococcus. Night telehospitalist was notified and Rocephin 2g IV Q24 hours was initiated for antimicrobial coverage. Given new cough, will try and obtain a sputum culture. Mucinex for mucolytic effect. Ricola for cough. Continue respiratory care including nebulized treatments. Continue to encourage BiPAP as indicated and supplemental oxygen to maintain SAO2 between 90 -95%. Wean oxygen to baseline of 5L as able. Given sudden onset of dyspnea, CT angio chest was obtained and revealed no PE but did note 2.2cm left lower lobe pulmonary nodule raising concern for primary lung malignancy and recommended further evaluation. Will discuss consideration of pulmonary consult for further evaluation. Continue Solu-Medrol 125mg IV Q6 hours. Anticipate initiation of tapering in near future. Blood sugars remain elevated, most likely steroid effect, ranging from 160's-> 200. Continue sliding scale insulin. Given recent CT with contrast, will hold metformin and restart 05/19/17. Continue NS at 75cc/hr for hydration. Monitor urinary output and daily weight closely for signs of fluid over load. Oral intake is good. Consider discontinuation of fluids this afternoon. Ativan as needed for anxiety and agitation while on BiPAP. Troponins continue to trend up slowing - 0.015, 0.017, 0.029, 0.045 and 0.048 this morning. Will recheck troponin at 1030 and continue to monitor closely on telemetry. Patient denies chest pain. SCDs for DVT prophylaxis. Recheck labs in AM to monitor blood counts, electrolytes and renal function. Discussed at length with patient and family the importance of smoking cessation. He admits to wanting to stop smoking and inquired about initiation of Chantix. Continue Wellbutrin for smoking cessation. With BC positive and starting IV antibiotics, will change admission status to inpatient. Anticipate greater than 2 midnights of care needed. 05/19/17 Continue with Rocephin for antimicrobial coverage. With lungs still very tight and congested, will continue with Solu-Medrol 125mg IV q 6 hours. Continue Neb treatments and acapella. Encourage use of BiPAP as much as able to help his chronic hypercapnea. Stressed with about the importance of him not smoking. She understand. Will consult with Dr Ashby for pulm evaluation. Will discontinue IVF. May restart metformin this evening. Sugars with elevation secondary to steroids. Did give Diamox 500mg x1 this am for fluid motivation and to help minimize contraction alkalosis. PT/OT to evaluate and initiate treatment tomorrow for his significant pulmonary debility. 05/20 Continue with Rocephin for antimicrobial coverage. One blood culture was positive with streptococcus Viridans, Repeat BC were drawn this morning. Scheduled breathing tx, IV solu-medrol, as well as oxygen and Bipap Appreciate Dr Ashby consultation. Likely require bronchoscopy for biopsy of lung mass. Continue to monitor BGM remain elevated. Metformin was resumed as well as sliding scale insulin. Encourage PT/OT for strengthening 05/21 Resp failure --> ABG shows resp acidosis and he was placed on BiPAP with improvement in color. Repeat ABG shows pH 7.12, pCO2 106, pO2 185. CXR ordered. BG 230. Chest pain --> EKG shows ST changes and widened QRS, poss a-flutter; troponin pending. Dr. Govea consulted. He's had 2 NTG but remains very hypertensive with SBP 220s. Pt failed to respond to adenosine, and subseqently was cardioverted with conversion to sinus tach. Rapid response activated and Dr. Ramírez was at bedside x20 min. Transferred to CCU, where pt was met by Dr. Govea for evaluation. Continue treatment for resp status including steroids and Rocephin. 05/22 Patient remains on a ventilator requiring continuous sedation. Oxygenation borderline on 40% FiO2-oxygen flow increased to 60% by pulmonary earlier today. Continue triple antibiotics (cefepime, Levaquin, vancomycin) pending sputum culture due to extensive pneumonia on CT/chest x-ray yesterday-not present on initial films. Peak troponin 3.09 with diffuse T-wave changes; discussed with Dr. Govea and will require cardiac catheterization in the future. Continue heparin drip. Blood pressure is uncontrolled-clonidine patch initiated earlier, IV hydralazine added as needed for systolic pressures above 180. OG placed-resume statin, SSRI, atenolol, and aspirin. Assess gastric residuals today-anticipate beginning tube feedings tomorrow. Adequate urine output, continue to monitor. Blood sugars remain elevated, off metformin at present. Increase basal insulin. 05/23 Patient remains on a ventilator requiring continuous sedation. Continue triple antibiotics (cefepime, Levaquin, vancomycin); suspect aspiration pneumonia-sputum culture normal charly. Extensive infiltrates on CT chest. Repeat chest x-ray in a.m. Fluid balance positive-roughly 5 L over several days, weight up-diuresis today. Potassium supplemented IV earlier today. Peak troponin 3.09 with diffuse T-wave changes; discussed with Dr. Govea and will require cardiac catheterization in the future. Continue heparin drip. Blood pressure remains elevated but improved from yesterday with addition of clonidine patch and resumption of atenolol per OG. IV hydralazine available as needed for systolic pressures above 180. OG placed 05/22-low volume gastric output overnight and tolerating medications per OG. Will initiate tube feedings with low glycemic formula at 20 mL per hour overnight. Nutrition consult. Blood sugars remain elevated, off metformin at present and on steroids. Increase basal insulin to 40 units anticipating further increase in blood sugar with initiation of tube feedings. 05/24 Remains ventilator dependent. Steroids decreased. Vancomycin discontinued, continue Levaquin and cefepime for probable aspiration pneumonia and Streptococcus viridans positive blood culture. Continue diuresis, blood pressures elevated-atenolol increased and lisinopril initiated to improve control. Tolerating tube feedings at low-volume, converted pulmonary formula with goal of 80 mL per hour. Platelet count dropping, heparin discontinued and bivalirudin initiated. 05/25 Tolerating spontaneous breathing trial, steroids decreased. Continues to require continuous sedation. Lisinopril increased to 20 mg to improve blood pressure control. Platelet count down to 100K; HIT Ab pending. Fevers overnight without evidence source, leukocytosis/left shift resolved improved. Lines to be cultured. 05/26 FiO2 titrated to 40%; diuresing well-continue same. Spontaneous breathing trial planned for the morning with possible extubation at that time. Cardiac status stable, no further tachyarrhythmias. Trend to improved blood pressures. Cardiac catheterization planned in the future. Remains on bivalirudin. Platelet count 86K today, HIT Ab pending. Tube feedings at goal, blood sugars significantly elevated-NovoLog scheduled every 6 hours and when necessary. Chest x-ray improved, remains on Levaquin and cefepime for probable aspiration pneumonia. Blood cultures drawn yesterday negative thus far. 05/27 Extubated this afternoon, OG discontinued in conjunction with extubation. CPAP initiated for respiratory support. Speech therapy, PT, OT consultations tomorrow. Anticipate significant reduction in fluid volume off sedating medications and tube feedings--> Lasix dose decreased to twice daily administration. Platelet count stabilizing, HIT Ab negative. Intermittent fever, remains on antibiotics for possible aspiration pneumonia. Repeat blood cultures negative. 05/29 Extubated 05/27 Placed on CPAP with home equipment. Baseline 5L Currently tolerating NC, oxygen support as needed to maintain sats and mentation , pulm consulted and following CXR-stable Leukocytosis-likely 05/10 steroid effect, PCT negative, no fever x48 hours Cefepime and Levaquin currently. Vanc discontinued 05/24. Likely d/c abx today. Will consult ID for abx recs Failed speech therapy Continue tube feeds and meds via Dobhoff Monitor fluid status-hold evening dose of lasix Peak troponin 3.09 on 05/21/17 with diffuse T-wave changes; heart cath 05/28-now on ASA and Bivalirudin Monitor platelet count-currently WNL Monitor BP, adjust medications as needed Monitor glucose and continue insulin as ordered Discussed with nursing staff, and infectious disease 05/30 Extubated 05/27, continue Bipap/NC as per pulm Weaning steroids CXR-improving Leukocytosis Cefepime, Levaquin, Vanc discontinued Continue Tamiflu Failed speech therapy, continue to re-eval Continue tube feeds and meds via Dobhoff, feeds at 40ml/hr, goal of 80ml/hr Discontinue lasix, give 1L NS and re-eval fluid status Continue ASA and Bivalirudin per cardiology 05/31 Failed speech therapy, continue to re-eval Tube feedings and medications per Dobbhoff, goal 80 mL per hour tube feeding. Adjust insulin for hyperglycemia. 06/01 describes increased confusion/irritability-haloperidol initiated as needed. Converting to prednisone per Dobbhoff in a.m.; blood gas with mild hypoxia-FiO2 increased. Continue nutritional support per Dobbhoff; insulins again adjusted for persistent hyperglycemia. Chest pain described overnight, EKG unchanged. 06/02 Complaints of chest pain/dyspnea again this morning-resolved with position change. Intermittent confusion, haloperidol given twice overnight. Persistent hyperglycemia, scheduled short acting insulin adjusted further. Solu-Medrol discontinued, prednisone initiated per Dobbhoff this morning. Lactulose administered per Dobbhoff for ongoing constipation; MiraLAX added with recommendation the patient take it orally. Patient and family advised he will require rehabilitation before discharge home can be entertained. <Amirani,Francis - Last Filed: 06/07/17 13:15> Exam Vital signs: Temperature 97 F 06/07/17 11:19 Pulse Rate 83 06/07/17 11:19 Respiratory Rate 24 06/07/17 11:19 Blood Pressure 100/65 06/07/17 11:19 Pulse Oximetry 99 06/07/17 11:19 Inpatient Medications: Generic Name Dose Route Start Last Admin Trade Name Freq PRN Reason Stop Dose Admin Acetaminophen 325 - 650 mg 05/17/17 10:08 06/01/17 21:51 Tylenol PO 650 mg Q5H PRN Administration Discomfort Hydrocodone Bitart/Acetaminophen 1 tab 05/17/17 10:14 06/06/17 05:37 [place] 7.5/325 PO 1 tab Q6H PRN Administration Pain Al Hydroxide/Mg Hydroxide 30 ml 05/28/17 09:24 Maalox Plus PO Q3H PRN Indigestion Albuterol/Ipratropium 3 ml 05/17/17 10:11 Duoneb AEROSOL RTQID PRN Albuterol/Ipratropium 3 ml 05/21/17 15:15 06/07/17 09:00 Duoneb AEROSOL 3 ml Q4H KSENIA Administration Aspirin 81 mg 05/28/17 09:24 06/07/17 09:21 Ecotrin PO 81 mg DAILY KSENIA Administration Atenolol 25 mg 05/29/17 09:00 06/07/17 12:06 Tenormin PO 25 mg BID KSENIA Administration Atorvastatin Calcium 80 mg 05/28/17 21:00 06/06/17 20:10 Lipitor PO 80 mg HS KSENIA Administration Bisacodyl 10 mg 05/27/17 15:11 Dulcolax RECTALLY DAILY PRN Constipation Bisacodyl 5 - 10 mg 05/28/17 09:24 Dulcolax PO DAILY PRN Constipation Budesonide 0.5 mg 05/17/17 19:00 06/07/17 09:00 Pulmicort Inhalation AEROSOL 0.5 mg RTBID KSENIA Administration Bupropion HCl 150 mg 05/17/17 21:00 06/07/17 09:21 Wellbutrin Sr PO 150 mg BID KSENIA Administration Citalopram Hydrobromide 40 mg 05/18/17 09:00 06/07/17 09:21 Celexa PO 40 mg DAILY KSEN[facility] Administration Gabapentin 300 mg 05/17/17 15:00 06/07/17 09:21 Neurontin PO 300 mg TID KSENIA Administration Glucose 37.5 gm 05/17/17 10:12 Glutose 15 PO PRN PRN Hypoglycemia Guaifenesin 400 mg 05/29/17 12:00 06/07/17 12:07 Robitussin Liq PO 200 mg Q6H [facility]ENIA Administration Haloperidol 1 mg 06/03/17 20:30 Haldol PO Q4H PRN Insulin Aspart 2 - 14 unit 05/21/17 11:43 06/07/17 11:30 Novolog SQ 2 unit SS PRN Administration Hyperglycemia Protocol Insulin Glargine 30 unit 06/03/17 21:00 06/06/17 20:10 Lantus SQ 30 unit HS KSENIA Administration Lisinopril 10 mg 06/05/17 09:00 06/07/17 12:05 Prinivil PO Not Given DAILY [facility] Lorazepam 0.5 - 1 mg 05/28/17 09:24 06/02/17 13:52 Ativan PO 0.5 mg Q4H PRN Administration Anxiety Magnesium Hydroxide 30 ml 05/28/17 09:24 Mom PO DAILY PRN Constipation Nitroglycerin 0.4 mg 05/31/17 23:49 06/02/17 08:11 Nitrostat SL 0.4 mg Q5M PRN Administration Chest pain Nystatin 5 ml 06/03/17 21:00 06/07/17 09:20 Mycostatin PO 06/13/17 20:59 5 ml QID KSENIA Administration Omeprazole 40 mg 05/18/17 06:30 06/07/17 06:12 Prilosec PO 40 mg ACB KSENIA Administration Ondansetron HCl 4 mg 05/28/17 09:24 Zofran IVP Q6H PRN Nausea &/or vomiting Polyethylene Glycol 17 gm 06/03/17 09:00 06/07/17 09:26 Miralax PO Not Given DAILY [facility] Prednisone 40 mg 06/06/17 08:00 06/07/17 09:21 Deltasone 20 Mg PO 40 mg WB KSENIA Administration Sodium Chloride 10 - 80 ml 05/17/17 05:20 06/05/17 11:42 Iv Flush IVF 20 ml PRN PRN Administration Flushing Sodium Chloride 1 spray 05/19/17 11:42 05/19/17 16:37 [place] Nasal Moisturizing [place] EA NOSTRIL 1 spray PRN PRN Administration Congestion Sodium Chloride 500 ml 05/25/17 21:40 05/25/17 21:52 Normal Saline IV 500 ml PRN PRN Administration Ticagrelor 90 mg 05/28/17 21:01 06/07/17 09:25 Brilinta PO 90 mg Q12H KSENIA Administration Discontinued Medications Generic Name Dose Route Start Last Admin Trade Name Freq PRN Reason Stop Dose Admin Acetaminophen 650 mg 05/21/17 15:10 Tylenol Supp MD Q5H PRN Pain Acetaminophen 325 - 650 mg 05/28/17 09:24 Tylenol PO Q5H PRN Pain Hydrocodone Bitart/Acetaminophen 1 tab 05/17/17 21:00 05/31/17 08:42 [place] 7.5/325 PO 1 tab BID KSENIA Administration Hydrocodone Bitart/Acetaminophen 1 - 2 tab 05/28/17 09:24 [place] 5/325 PO Q5H PRN Pain Acetazolamide 500 mg 05/19/17 10:51 05/19/17 11:25 Diamox PO 05/19/17 10:52 500 mg O ONE Administration Adenosine 12 mg 05/21/17 09:17 05/21/17 08:50 Adenocard IVP 05/21/17 09:18 12 mg O ONE Administration Adenosine 6 mg 05/21/17 09:18 05/21/17 09:23 Adenocard IVP 05/21/17 09:19 6 mg O ONE Administration Albuterol/Ipratropium 6 ml 05/17/17 05:19 05/17/17 05:33 Duoneb AEROSOL 05/17/17 05:20 6 ml O ONE Administration Albuterol/Ipratropium 3 ml 05/17/17 11:00 05/21/17 18:22 Duoneb AEROSOL Not Given RTQID KSENIA Amlodipine Besylate 10 mg 05/24/17 13:46 06/04/17 09:44 Norvasc PO 10 mg DAILY KS[facility] Administration Amlodipine Besylate 5 mg 06/04/17 11:41 06/06/17 10:38 Norvasc PO 5 mg DAILY KS[facility] Administration Aspirin 81 mg 05/18/17 09:00 05/23/17 08:26 Asa PO Not Given DAILY [facility] Aspirin 81 mg 05/22/17 16:00 05/31/17 08:42 Asa GT 81 mg DAILY [facility] Administration Atenolol 25 mg 05/18/17 09:00 05/24/17 08:58 Tenormin PO 25 mg DAILY [facility] Administration Atenolol 50 mg 05/25/17 09:00 05/28/17 12:30 Tenormin PO Not Given DAILY [facility] Atenolol 25 mg 05/24/17 09:40 05/24/17 11:09 Tenormin PO 05/24/17 09:41 25 mg O ONE Administration Atropine Sulfate 0.5 mg 05/28/17 09:24 Atropine IVP Q5M PRN Bradycardia Benzocaine 1 lozenge 05/20/17 18:54 Cepacol Sore Throat Lozenge MM Q2HR PRN Sore throat Bisacodyl 10 mg 05/28/17 09:24 Dulcolax RECTALLY DAILY PRN Constipation Bivalirudin 250 mg 05/24/17 14:15 Angiomax IV NOW [facility] Clonidine HCl 0.1 mg 05/22/17 09:00 06/05/17 09:05 Catapres-Tts 1 TD Not Given Q7D@0900 [facility] Clonidine HCl 1 removal 05/29/17 08:59 06/05/17 09:05 Catapres Patch Removal TD 1 removal Q7D [facility] Administration Enoxaparin Sodium 1 each 05/18/17 10:47 05/18/17 12:54 Pharmacy Consult - Lovenox MC 05/18/17 10:48 1 each O ONE Administration Enoxaparin Sodium 50 mg 05/18/17 11:45 05/20/17 08:37 Lovenox SQ 50 mg DAILY [facility] Administration Enoxaparin Sodium 142 mg 05/27/17 17:00 05/28/17 09:34 Lovenox SQ 142 mg DAILY [facility] Administration Furosemide 20 mg 05/18/17 09:00 05/20/17 08:37 Lasix PO 20 mg DAILY [facility] Administration Furosemide 40 mg 05/21/17 09:37 05/21/17 09:45 Lasix IVP 05/21/17 09:38 40 mg ONCE ONE Administration Furosemide 20 mg 05/23/17 21:00 05/24/17 08:59 Lasix IVP 20 mg Q12HR KSENIA Administration Furosemide 20 mg 05/24/17 17:00 05/27/17 09:31 Lasix IVP 20 mg Q8HR [facility] Administration Furosemide 20 mg 05/27/17 21:00 05/29/17 08:09 Lasix IVP 20 mg Q12H [facility] Administration Furosemide 20 mg 05/29/17 09:00 Lasix IVP DAILY [facility] Guaifenesin 1,200 mg 05/18/17 09:00 05/29/17 08:14 Mucinex La PO Not Given BID [facility] Haloperidol Decanoate 1 mg 06/01/17 17:43 06/02/17 17:00 Haldol Liquid GT 1 mg Q4H PRN Administration Heparin Sodium (Beef Lung) 5,000 unit 05/21/17 09:23 05/21/17 10:07 Heparin Bolus IVP 05/21/17 09:24 5,000 unit O ONE Administration Heparin Sodium (Beef Lung) 3,000 unit 05/21/17 17:45 05/21/17 17:53 Heparin Bolus IVP 05/21/17 17:46 3,000 unit O ONE Administration Heparin Sodium (Beef Lung) 3,000 unit 05/22/17 03:37 05/22/17 03:46 Heparin Bolus IVP 05/22/17 03:38 3,000 unit O ONE Administration Heparin Sodium (Porcine) 1 each 05/21/17 09:08 Pharmacy Consult - Heparin MC 05/21/17 09:09 ONE TIME ONE Hydralazine HCl 5 mg 05/22/17 08:47 05/22/17 10:09 Apresoline IVP 5 mg Q6H PRN Administration Hypertension Hydralazine HCl 10 mg 05/22/17 15:01 05/28/17 06:06 Apresoline IVP 10 mg Q4H PRN Administration Hypertension Sodium Chloride 1,000 mls @ 999.9 mls/hr 05/17/17 05:44 05/17/17 11:20 Normal Saline IV 05/17/17 06:43 Infused .Q1H ONE Infusion Sodium Chloride 1,000 mls @ 75 mls/hr 05/17/17 10:08 05/19/17 11:19 Normal Saline IV Infused .[id number] KSENIA Infusion Ceftriaxone Sodium 2 gm/ 100 mls @ 200 mls/hr 05/18/17 01:15 05/18/17 01:50 Sodium Chloride IV Infused Q24H [facility] Infusion Ceftriaxone Sodium 2 gm/ 50 mls @ 100 mls/hr 05/18/17 21:00 05/20/17 21:55 Sodium Chloride IV Infused Q24H [facility] Infusion Heparin Sodium (Porcine) 20,000 unit in 500 mls @ 44 mls/hr 05/21/17 09:30 13:17 Heparin Drip IV Infused .[id number] KSENIA Titration Protocol Dexmedetomidine HCl 200 mcg/ 52 mls @ 6.87 mls/hr 05/21/17 09:52 05/21/17 20: 00 Sodium Chloride IV 05/21/17 20:29 0 mcg/kg/hr .Q7H35M PRN 0 mls/hr Protocol Titration 0.2 MCG/KG/HR Propofol 1,000 mg in 100 mls @ 3.969 mls/hr 05/21/17 10:39 05/21/17 14:28 Diprivan IV 0 mcg/kg/min .Q24H PRN 0 mls/hr Protocol Infusion 5 MCG/KG/MIN Fentanyl 1,000 mcg/ Sodium 100 mls @ 0 mls/hr 05/21/17 13:02 05/27/17 14:45 Chloride IV Infused .Q0M PRN Titration Protocol Per Protocol Sodium Chloride 250 mls @ 999.9 mls/hr 05/21/17 13:15 05/21/17 14:28 Normal Saline IV 05/21/17 13:29 Infused .Q15M [facility] Infusion Cefepime HCl 1 gm/ Sodium 50 mls @ 100 mls/hr 05/21/17 15:30 05/29/17 10:46 Chloride IV Infused Q6H [facility] Infusion Levofloxacin/Dextrose 750 mg in 150 mls @ 100 mls/hr 05/21/17 16:00 05/28/17 17:15 Levaquin Premix IV Infused Q24H [facility] Infusion Vancomycin HCl 1,500 mg/ 500 mls @ 250 mls/hr 05/21/17 18:00 05/24/17 12:15 Sodium Chloride IV Infused Q8H [facility] Infusion Dexmedetomidine HCl 1,000 mcg/ 260 mls @ 6.87 mls/hr 05/21/17 20:30 05/27/17 14:45 Sodium Chloride IV 05/27/17 14:45 Infused .Q24H PRN Titration Protocol 0.2 MCG/KG/HR Potassium Chloride 10 meq in 100 mls @ 100 mls/hr 05/23/17 09:45 05/23/17 17: 34 Potassium Chloride Premix IV 05/23/17 13:44 Infused Q1H [facility] Infusion Heparin Sodium (Porcine) 20,000 unit in 500 mls @ 45 mls/hr 05/23/17 16:00 06:16 Heparin Drip IV Not Given .Q11H7M [facility] Protocol Potassium Chloride 10 meq in 100 mls @ 100 mls/hr 05/24/17 09:45 05/24/17 15: 56 Potassium Chloride Premix IV 05/24/17 13:44 Not Given Q1H [facility] Potassium Chloride 10 meq/ 105 mls @ 105 mls/hr 05/24/17 11:45 05/24/17 17:00 Sodium Chloride IV 05/24/17 15:44 Infused Q1H [facility] Infusion Bivalirudin 250 mg/ Sodium 500 mls @ 43.2 mls/hr 05/24/17 15:15 05/27/17 17: 34 Chloride IV Not Given .[id number] [facility] Sodium Chloride 1,000 mls @ 75 mls/hr 05/28/17 07:45 05/28/17 14:00 Normal Saline IV Infused .[id number] [facility] Infusion Sodium Chloride 1,000 mls @ 500 mls/hr 05/30/17 10:14 05/30/17 10:41 Normal Saline IV 05/30/17 12:13 500 mls/hr .Q2H ONE Administration Sodium Chloride 1,000 mls @ 60 mls/hr 05/30/17 17:00 05/31/17 06:00 Normal Saline IV 05/31/17 09:39 60 mls/hr .[id number] [facility] Infusion Insulin Aspart 1 - 5 unit 05/17/17 10:12 05/18/17 06:06 Novolog SQ 2 unit SS PRN Administration Hyperglycemia Protocol Insulin Aspart 2 - 8 unit 05/18/17 08:22 05/21/17 07:30 Novolog SQ 3 unit SS PRN Administration Hyperglycemia Protocol Insulin Aspart 15 unit 05/20/17 10:32 05/20/17 10:36 Novolog SQ 05/20/17 10:33 15 unit ONE TIME ONE Administration Insulin Aspart 10 unit 05/26/17 12:00 05/26/17 13:54 Novolog SQ Not Given Q6H [facility] Insulin Aspart 10 unit 05/26/17 15:00 05/27/17 21:06 Novolog SQ Not Given 0300,0900,1500,2100 [facility] Insulin Aspart 10 unit 05/28/17 15:00 Novolog SQ Q6HR [facility] Insulin Aspart 10 unit 05/28/17 18:00 05/31/17 06:11 Novolog SQ 10 unit Q6H [facility] Administration Insulin Aspart 12 unit 05/31/17 08:41 06/03/17 19:14 Novolog SQ Not Given Q6H [facility] Insulin Aspart 15 unit 06/01/17 15:00 06/02/17 10:37 Novolog SQ Not Given Q6H [facility] Insulin Aspart 18 unit 06/02/17 09:58 06/03/17 17:37 Novolog SQ 18 unit Q6H [facility] Administration Insulin Glargine 10 unit 05/21/17 21:00 05/21/17 20:14 Lantus SQ 10 unit HS [facility] Administration Insulin Glargine 20 unit 05/22/17 21:00 05/22/17 20:14 Lantus SQ 20 unit HS [facility] Administration Insulin Glargine 40 unit 05/23/17 21:00 05/30/17 21:34 Lantus SQ 40 unit HS [facility] Administration Insulin Glargine 50 unit 05/31/17 08:41 05/31/17 21:06 Lantus SQ 50 unit HS [facility] Administration Insulin Glargine 60 unit 06/01/17 21:00 06/02/17 20:23 Lantus SQ 60 unit HS [facility] Administration Labetalol HCl 10 mg 05/21/17 20:40 05/22/17 06:05 Trandate IVP 10 mg Q4H PRN Administration INCREASED blood pressure Lactulose 20 gm 06/02/17 10:00 06/02/17 11:09 Lactulose PO 06/02/17 10:01 20 gm O ONE Administration Lisinopril 10 mg 05/24/17 16:15 05/31/17 08:42 Prinivil PO 10 mg DAILY [facility] Administration Lisinopril 10 mg 05/31/17 15:18 05/31/17 15:43 Prinivil PO 05/31/17 15:19 10 mg O ONE Administration Lisinopril 20 mg 06/01/17 09:00 06/04/17 09:45 Prinivil PO 20 mg DAILY [facility] Administration Lorazepam 1 mg 05/17/17 06:16 05/17/17 06:56 Ativan PO 05/17/17 06:17 1 mg O ONE Administration Lorazepam 0.5 mg 05/17/17 10:13 05/24/17 15:55 Ativan Inj IVP 0.5 mg Q6H PRN Administration Lorazepam 1 mg 05/24/17 19:46 05/31/17 01:43 Ativan Inj IVP 1 mg Q2H PRN Administration Agitation/Air hunger/Pain Lorazepam 0.5 - 1 mg 05/28/17 09:24 Ativan Inj IVP Q4H PRN Anxiety Magnesium Hydroxide 30 ml 05/26/17 12:41 05/26/17 13:53 Mom GT 05/26/17 12:42 30 ml O ONE Administration Menthol 1 lozenge 05/18/17 08:19 Ricola Sf MM PRN PRN Cough Metformin HCl 500 mg 05/17/17 17:30 05/18/17 10:00 Glucophage PO Not Given BIDWM KSENIA Metformin HCl 500 mg 05/19/17 09:00 05/21/17 10:52 Glucophage PO Not Given BIDWM KSENIA Methylprednisolone Sodium Succinate 125 mg 05/17/17 06:26 05/17/17 06:53 Solu-Medrol IM 05/17/17 06:27 125 mg O ONE Administration Methylprednisolone Sodium Succinate 125 mg 05/17/17 15:00 05/20/17 08:37 Solu-Medrol IVP 125 mg Q6HR KSENIA Administration Methylprednisolone Sodium Succinate 80 mg 05/20/17 15:00 05/24/17 08:57 Solu-Medrol IVP 80 mg Q6HR KSENIA Administration Methylprednisolone Sodium Succinate 80 mg 05/24/17 17:00 05/26/17 08:23 Solu-Medrol IVP 80 mg Q8HR KSENIA Administration Methylprednisolone Sodium Succinate 80 mg 05/26/17 21:00 05/29/17 08:15 Solu-Medrol IVP 80 mg Q12HR KSENIA Administration Methylprednisolone Sodium Succinate 60 mg 05/29/17 21:00 06/01/17 21:57 Solu-Medrol IVP 06/02/17 04:00 60 mg Q12HR KSENIA Administration Metoclopramide HCl 5 mg 05/23/17 17:30 05/30/17 10:42 Reglan GT 5 mg Q6H KSENIA Administration Metoclopramide HCl 5 - 10 mg 05/28/17 09:24 Reglan IVP Q6H PRN Nausea &/or vomiting Metoclopramide HCl 5 mg 05/30/17 14:00 06/03/17 23:15 Reglan GT Not Given Q6H KSENIA Metoprolol Tartrate 15 mg 05/21/17 09:18 05/21/17 09:05 Lopressor IVP 05/21/17 09:19 15 mg ONCE ONE Administration Metoprolol Tartrate 5 mg 05/28/17 10:01 05/28/17 10:00 Lopressor IVP 05/28/17 10:02 5 mg ONCE ONE Administration Morphine Sulfate 1 - 2 mg 05/17/17 10:08 05/24/17 17:56 Morphine Sulfate Inj IVP 2 mg Q2H PRN Administration Pain Morphine Sulfate 2 - 4 mg 05/28/17 09:24 05/28/17 10:17 Morphine Sulfate Inj IVP 05/29/17 09:23 4 mg Q2H PRN Administration Pain Morphine Sulfate 2 - 4 mg 05/28/17 09:24 06/02/17 08:19 Morphine Sulfate Inj IVP 2 mg Q5M PRN Administration Angina Neomycin/Polymyxin/Bacitracin 1 applic 06/06/17 13:00 06/06/17 13:10 Neosporin TP 06/06/17 13:01 1 applic O ONE Administration Nitroglycerin 0.4 mg 05/17/17 10:14 05/21/17 08:35 Nitrostat SL 0.4 mg Q5MIN3 PRN Administration CP Nitroglycerin 0.4 mg 05/28/17 09:24 Nitrostat SL Q5M PRN Angina --Pom--(Itraconazole 200 mg 05/17/17 21:00 05/29/17 09:39 [Itraconazole] 200 PO Not Given Mg) BID KSENIA Ondansetron HCl 4 mg 05/17/17 10:08 05/19/17 02:45 Zofran IVP 4 mg Q6H PRN Administration Nausea &/or vomiting Oseltamivir Phosphate 75 mg 05/29/17 21:00 06/03/17 09:27 Tamiflu 06/03/17 09:01 75 mg BID KSENIA Administration Pantoprazole Sodium 40 mg 05/22/17 09:00 05/31/17 08:44 Protonix Iv IVP 40 mg DAILY KSENIA Administration Pharmacy Consult 1 each 05/17/17 10:32 Pharmacy Consult - Fall Risk XX 05/17/17 10:33 ONE TIME ONE Pharmacy Consult 1 each 05/27/17 10:17 Pharmacy Consult - Fall Risk XX 05/27/17 10:18 ONE TIME ONE Pharmacy Consult 1 each 06/05/17 10:03 Pharmacy Consult - Fall Risk XX 06/05/17 10:04 ONE TIME ONE Potassium Chloride 40 meq 05/24/17 18:10 05/26/17 06:13 Kcl Oral Liq 20 Meq/15 Ml PO Not Given BIDWM KSENIA Potassium Chloride 40 meq 05/25/17 13:00 05/26/17 08:22 Kcl Oral Liq 20 Meq/15 Ml PO 40 meq QID KSENIA Administration Potassium Chloride 40 meq 05/26/17 12:00 05/27/17 12:04 Kcl Oral Liq 20 Meq/15 Ml PO 40 meq TIDWM KSENIA Administration Potassium Chloride 40 meq 05/27/17 17:30 05/29/17 07:59 Kcl Oral Liq 20 Meq/15 Ml PO 40 meq BIDWM KSENIA Administration Potassium Chloride 40 meq 05/29/17 09:00 05/30/17 08:42 Kcl Oral Liq 20 Meq/15 Ml PO 40 meq DAILY KSENIA Administration Prednisone 60 mg 06/02/17 08:00 06/03/17 09:20 Deltasone 20 Mg PO 60 mg WB KSENIA Administration Prednisone 50 mg 06/03/17 11:15 06/05/17 09:02 Deltasone 50 Mg PO 50 mg WB KSENIA Administration Promethazine HCl 12.5 - 25 mg 05/28/17 09:24 Phenergan Inj IVP Q6HR PRN Nausea &/or vomiting Simvastatin 20 mg 05/17/17 21:00 05/27/17 20:36 Zocor PO Not Given HS KSENIA Vancomycin HCl 1 each 05/21/17 15:19 05/21/17 15:53 Pharmacy Consult - Vancomycin MC 05/21/17 15:20 1 each O ONE Administration - Urinary Catheter Management Urethral Cath placed during this visit: no Results 06/05/17 06:22 06/05/17 06:22 Intake and Output 06/06/17 06/07/17 06/07/17 22:59 06:59 14:59 Intake Total 400 / 400 800 / 800 Output Total 550 / 550 475 / 475 250 / 250 Balance -150 / -150 325 / 325 -250 / -250 Intake: Oral 400 / 400 800 / 800 Output: Urine 550 / 550 475 / 475 250 / 250 Other: Urine Appearance Clear Clear Clear Urine Color Straw Dark Yellow Pale Yellow Urine Odor Normal Normal Stool Color Brown Stool Consistency Soft Formed Size of Bowel Movement Moderate # Voids 1 # Incontinent Voids 1 Weight 124.6 kg Patient Weight 06/08/17 06:59 Weight 124.6 kg Assessment and Plan - Assessment and Plan (1) Community acquired pneumonia Current visit: No Status: Acute (2) Acute and chronic respiratory failure with hypercapnia Current visit: Yes Status: Acute (3) Chest pain Current visit: Yes Status: Acute (4) Atherosclerotic heart disease of [place] coronary artery without angina pectoris Current visit: Yes Status: Chronic (5) Essential (primary) hypertension Current visit: Yes Status: Chronic (6) Type 2 diabetes mellitus without complications Current visit: Yes Status: Chronic (7) Obesity (BMI 30-39.9) Current visit: Yes Status: Chronic (8) ANGELLA (obstructive sleep apnea) Current visit: Yes Status: Chronic (9) NSTEMI (non-ST elevated myocardial infarction) Current visit: Yes Status: Acute - Attestation Attestation Narrative: 06/07/17 13:15 Recommendation After examining the patient I agree with the above assessment. I am involved in the formulation of the patient's plan of care. Hospital Course Summary Disclaimer: The visit summary below is not to be considered part of the above Progress Note.
[2017-06-03] MEDS ORDERED: HALOPERIDOL 1 MG TABLET PO PRN (20:30)
--- NOTE | 2017-06-03 20:42 | Progress Note ---
- Date 06/03/17 Subjective: Chaz was initially seen when up in a chair, he was eating supper and complained that he could feel the Dobbhoff moving from the right the left in the back of his throat. He also complained that his tongue/throat coyle. Speech therapy had contacted me earlier with concerns that thrush was present. Diet was upgraded earlier today to soft foods with ground meats. Patient has had anxiety intermittently through the day but did not have chest pain this morning or dyspnea reported. When seen he complained of wanting to go into the bathroom so he could sit on the toilet and that he needed to urinate but couldn't (Fagan was clamped at the time). Patient had a bowel movement yesterday after lactulose was given. Required 4 person assist and Preston lift to get him up into the chair. I was called back to the room at approximately 8 PM after Dobbhoff was removed; his described multiple frustrations and reported that the Dobbhoff has been repositioned and possibly advanced twice in the past 24 hours. When it was flushed late this afternoon the patient described "drowning" . I was advised by nursing that his blood pressure was transiently low while he was in the chair but it is subsequently stabilized following return to bed. At the time of reassessment the patient's respirations were nonlabored and oxygen saturation was 99-100% on 5 L supplemental oxygen-unchanged from earlier today. Objective Vital signs: Temperature 96.7 F L 06/03/17 16:41 Pulse Rate 81 06/03/17 16:41 Respiratory Rate 18 06/03/17 19:10 Blood Pressure 111/67 06/03/17 16:41 Pulse Oximetry 97 -5 L 06/03/17 16:41 I/O 2536/2400 EXAM General-NAD, alert-no inappropriate responses today HEENT-conjunctiva clear, oral membranes moist, faint white coating on tongue and possible superficial ulceration to the left on the hard palate; Dobbhoff was in an easily visualized in the posterior pharynx during initial evaluation; out when reevaluated Lungs-respirations nonlabored, good airflow, breath sounds relatively clear today; no wheezing present Cardiac-regular rhythm, S1-S2 Abd-obese, soft, nontender, bowel sounds present Ext-without edema, stasis changes present bilaterally lower extremities Neuro-milk handler equal/strong; lower extremity power not assessed today Psych-calm, cooperative - Rhythm: Normal Sinus Rhythm Height/Weight/BMI: Height 1.85 m Weight 139.5 kg Body Mass Index 41.5 Results - Labs CBC & Chem 7: 06/03/17 04:16 06/03/17 04:16 Labs: S80 B2 L13 M5 Phosphorus 3.3, magnesium 2.2 Microbiology Results: Microbiology 05/25/17 15:49 Midline Blood Culture - Final No Growth After 5 Days 05/25/17 15:43 Port/Picc Blood Culture - Final No Growth After 5 Days 05/20/17 04:36 Midline Blood Culture - Final No Growth After 5 Days 05/20/17 04:36 Midline Blood Culture - Final No Growth After 5 Days 05/21/17 13:45 Sputum, Expectorated Gram Stain - Final 05/21/17 13:45 Sputum, Expectorated Sputum Culture - Final Yeast, not C. albicans Normal Respiratory [facility] - Imaging and Cardiology Chest x-ray Status: image reviewed by me (minor increased vascular markings, atelectasis at the bases; unchanged when repeated this evening) Assessment and Plan (1) Acute and chronic respiratory failure with hypercapnia Current visit: Yes Status: Acute (2) Acute exacerbation of chronic obstructive airways disease Current visit: Yes Status: Acute (3) NSTEMI (non-ST elevated myocardial infarction) Current visit: Yes Status: Acute Assessment and Plan: Assessment Acute on chronic respiratory failure with hypercapnia and hypoxia - baseline home oxygen at 5L; intubated 05/21-extubated on 05/27, now on Bipap/NC Leukocytosis-trending down NSTEMI-peak troponin 3.09, diffuse T changes, s/p heart cath with 2 stents 05/28 COPD exacerbation Transaminitis Influenza A Hyperglycemia Alerted Mental Status Thrombocytopenia Constipation Resolved Bilateral lower lobe pneumonia Bacteremia Fever Hypokalemia Wide complex tachycardia s/p cardioversion Dehydration Chronic Medical: Cardiomyopathy-EF 30% by echo 05/21/17 Pulmonary nodule - Irregular 2.2cm left lower lobe pulmonary nodule Anemia, unspecified, stable Coronary Artery Disease Hypertension Sleep Apnea Diabetes Mellitus Type 2 - A1c on 04/17/17 was 6.4% GERD Osteoarthritis Peripheral neuropathy Fibromyalgia Depression Tobacco dependency Peripheral vascular disease Morbid obesity - BMI >40 Plan Extubated 05/27, continue Bipap/NC-5 L as per pulm. IV steroids converted to prednisone 06/02-dosed decreased by pulmonary earlier today. Tamiflu for influenza A-initiated 05/29; course completed. Soft diet with ground meats with regular liquids per speech therapy. Dobbhoff out-circumstances unclear at present-but will give patient a trial of oral intake before reconsidering tube replacement. Insulin doses decreased significantly given discontinuation of tube feedings. Monitor Accu-Cheks every 2 hours overnight tonight. Continue ASA and Bivalirudin per cardiology; also on beta jesenia and atorvastatin. Blood sugars improved earlier today with insulin's that were increased yesterday however have eliminated scheduled short-acting insulin in light of discontinuation of tube feedings and decrease NovoLog from 60 to 30 units. Continue corrective scale. Anticipate further reductions in insulin with reduced prednisone dose Continue to work with PT/OT/Speech On usual doses of Wellbutrin and citalopram. Has Ativan and haloperidol available if needed for anxiety or delirium. Bladder training initiated although do not believe patient will be ready to DC Fagan in the immediate future. Lengthy discussion with family this evening; patient transferring back to CCU for close observation following Dobbhoff removal. Discussed with nursing, nursing wood mill supervisor. DVT Prophylaxis: SCD's Resuscitation Status: Full Code - Time spent with patient Time with patient PN: other (40 min) Coordination of Care: >50% of visit spent providing counseling/coordination of care - Physician Narrative Narrative: Date: 06/03/17 Time: 2033 Hospital Course Summary Disclaimer: The visit summary below is not to be considered part of the above Progress Note. Hospital Course: 05/17/17 Admission Admit to observation status under the care of Dr. Lopez. Sepsis work up initiated in ED. Patient meeting SIRS criteria based on tachycardia, tachypnea and reported fevers at home without obvious source. Initial lactate was 1.4 with repeat lactate decreased to 0.9. Blood cultures pending. WBC stable at 5.0. CXR revealed left basilar scarring without focal pneumonia. Respiratory panel was negative. Patient was given DuoNeb treatments and Solu-Medrol 125mg IV in ED. Will continue respiratory care with DuoNeb treatments QID and Q6H PRN as well as Solu -Medrol 125mg IV Q6H. History of diabetes with A1c on 04/17/17 at 6.4%. Continue home medications and monitor blood sugars closely given treatment with steroids. Sliding scale insulin as indicated for hyperglycemia. Patient was placed on BiPAP in ED with improvement. Continue BiPAP as indicated. Ativan as needed for anxiety and agitation while on BiPAP. Will monitor closely on telemetry with continuous pulse oximetry. Oxygen as needed to maintain SAO2 between 90-95%, weaning as able to baseline of 5L. SCDs for DVT prophylaxis. Given sudden onset of dyspnea, will obtain CT angio chest for further evaluation of PE - results pending. NS at 100cc/hr for hydration given decreased oral intake as on BiPAP. Monitor daily weight closely for signs of fluid overload. Recheck labs in AM to monitor blood counts, electrolytes and renal function. Patient wishes to maintain FULL CODE status. Upon discharge, patient's care will be returned to his PCP, Dr. Odom. 05/18/17 Don reports that his breathing is a little better today and is he is more alert. New cough with sputum production. 1 of the 2 blood cultures obtained on admission is POSITIVE for Streptococcus. Night telehospitalist was notified and Rocephin 2g IV Q24 hours was initiated for antimicrobial coverage. Given new cough, will try and obtain a sputum culture. Mucinex for mucolytic effect. Ricola for cough. Continue respiratory care including nebulized treatments. Continue to encourage BiPAP as indicated and supplemental oxygen to maintain SAO2 between 90 -95%. Wean oxygen to baseline of 5L as able. Given sudden onset of dyspnea, CT angio chest was obtained and revealed no PE but did note 2.2cm left lower lobe pulmonary nodule raising concern for primary lung malignancy and recommended further evaluation. Will discuss consideration of pulmonary consult for further evaluation. Continue Solu-Medrol 125mg IV Q6 hours. Anticipate initiation of tapering in near future. Blood sugars remain elevated, most likely steroid effect, ranging from 160's-> 200. Continue sliding scale insulin. Given recent CT with contrast, will hold metformin and restart 05/19/17. Continue NS at 75cc/hr for hydration. Monitor urinary output and daily weight closely for signs of fluid over load. Oral intake is good. Consider discontinuation of fluids this afternoon. Ativan as needed for anxiety and agitation while on BiPAP. Troponins continue to trend up slowing - 0.015, 0.017, 0.029, 0.045 and 0.048 this morning. Will recheck troponin at 1030 and continue to monitor closely on telemetry. Patient denies chest pain. SCDs for DVT prophylaxis. Recheck labs in AM to monitor blood counts, electrolytes and renal function. Discussed at length with patient and family the importance of smoking cessation. He admits to wanting to stop smoking and inquired about initiation of Chantix. Continue Wellbutrin for smoking cessation. With BC positive and starting IV antibiotics, will change admission status to inpatient. Anticipate greater than 2 midnights of care needed. 05/19/17 Continue with Rocephin for antimicrobial coverage. With lungs still very tight and congested, will continue with Solu-Medrol 125mg IV q 6 hours. Continue Neb treatments and acapella. Encourage use of BiPAP as much as able to help his chronic hypercapnea. Stressed with about the importance of him not smoking. She understand. Will consult with Dr Ashby for pulm evaluation. Will discontinue IVF. May restart metformin this evening. Sugars with elevation secondary to steroids. Did give Diamox 500mg x1 this am for fluid motivation and to help minimize contraction alkalosis. PT/OT to evaluate and initiate treatment tomorrow for his significant pulmonary debility. 05/20 Continue with Rocephin for antimicrobial coverage. One blood culture was positive with streptococcus Viridans, Repeat BC were drawn this morning. Scheduled breathing tx, IV solu-medrol, as well as oxygen and Bipap Appreciate Dr Ashby consultation. Likely require bronchoscopy for biopsy of lung mass. Continue to monitor BGM remain elevated. Metformin was resumed as well as sliding scale insulin. Encourage PT/OT for strengthening 05/21 Resp failure --> ABG shows resp acidosis and he was placed on BiPAP with improvement in color. Repeat ABG shows pH 7.12, pCO2 106, pO2 185. CXR ordered. BG 230. Chest pain --> EKG shows ST changes and widened QRS, poss a-flutter; troponin pending. Dr. Govea consulted. He's had 2 NTG but remains very hypertensive with SBP 220s. Pt failed to respond to adenosine, and subseqently was cardioverted with conversion to sinus tach. Rapid response activated and Dr. Ramírez was at bedside x20 min. Transferred to CCU, where pt was met by Dr. Govea for evaluation. Continue treatment for resp status including steroids and Rocephin. 05/22 Patient remains on a ventilator requiring continuous sedation. Oxygenation borderline on 40% FiO2-oxygen flow increased to 60% by pulmonary earlier today. Continue triple antibiotics (cefepime, Levaquin, vancomycin) pending sputum culture due to extensive pneumonia on CT/chest x-ray yesterday-not present on initial films. Peak troponin 3.09 with diffuse T-wave changes; discussed with Dr. Govea and will require cardiac catheterization in the future. Continue heparin drip. Blood pressure is uncontrolled-clonidine patch initiated earlier, IV hydralazine added as needed for systolic pressures above 180. OG placed-resume statin, SSRI, atenolol, and aspirin. Assess gastric residuals today-anticipate beginning tube feedings tomorrow. Adequate urine output, continue to monitor. Blood sugars remain elevated, off metformin at present. Increase basal insulin. 05/23 Patient remains on a ventilator requiring continuous sedation. Continue triple antibiotics (cefepime, Levaquin, vancomycin); suspect aspiration pneumonia-sputum culture normal charly. Extensive infiltrates on CT chest. Repeat chest x-ray in a.m. Fluid balance positive-roughly 5 L over several days, weight up-diuresis today. Potassium supplemented IV earlier today. Peak troponin 3.09 with diffuse T-wave changes; discussed with Dr. Govea and will require cardiac catheterization in the future. Continue heparin drip. Blood pressure remains elevated but improved from yesterday with addition of clonidine patch and resumption of atenolol per OG. IV hydralazine available as needed for systolic pressures above 180. OG placed 05/22-low volume gastric output overnight and tolerating medications per OG. Will initiate tube feedings with low glycemic formula at 20 mL per hour overnight. Nutrition consult. Blood sugars remain elevated, off metformin at present and on steroids. Increase basal insulin to 40 units anticipating further increase in blood sugar with initiation of tube feedings. 05/24 Remains ventilator dependent. Steroids decreased. Vancomycin discontinued, continue Levaquin and cefepime for probable aspiration pneumonia and Streptococcus viridans positive blood culture. Continue diuresis, blood pressures elevated-atenolol increased and lisinopril initiated to improve control. Tolerating tube feedings at low-volume, converted pulmonary formula with goal of 80 mL per hour. Platelet count dropping, heparin discontinued and bivalirudin initiated. 05/25 Tolerating spontaneous breathing trial, steroids decreased. Continues to require continuous sedation. Lisinopril increased to 20 mg to improve blood pressure control. Platelet count down to 100K; HIT Ab pending. Fevers overnight without evidence source, leukocytosis/left shift resolved improved. Lines to be cultured. 05/26 FiO2 titrated to 40%; diuresing well-continue same. Spontaneous breathing trial planned for the morning with possible extubation at that time. Cardiac status stable, no further tachyarrhythmias. Trend to improved blood pressures. Cardiac catheterization planned in the future. Remains on bivalirudin. Platelet count 86K today, HIT Ab pending. Tube feedings at goal, blood sugars significantly elevated-NovoLog scheduled every 6 hours and when necessary. Chest x-ray improved, remains on Levaquin and cefepime for probable aspiration pneumonia. Blood cultures drawn yesterday negative thus far. 05/27 Extubated this afternoon, OG discontinued in conjunction with extubation. CPAP initiated for respiratory support. Speech therapy, PT, OT consultations tomorrow. Anticipate significant reduction in fluid volume off sedating medications and tube feedings--> Lasix dose decreased to twice daily administration. Platelet count stabilizing, HIT Ab negative. Intermittent fever, remains on antibiotics for possible aspiration pneumonia. Repeat blood cultures negative. 05/29 Extubated 05/27 Placed on CPAP with home equipment. Baseline 5L Currently tolerating NC, oxygen support as needed to maintain sats and mentation , pulm consulted and following CXR-stable Leukocytosis-likely 2/2 steroid effect, PCT negative, no fever x48 hours Cefepime and Levaquin currently. Vanc discontinued 05/24. Likely d/c abx today. Will consult ID for abx recs Failed speech therapy Continue tube feeds and meds via Dobhoff Monitor fluid status-hold evening dose of lasix Peak troponin 3.09 on 05/21/17 with diffuse T-wave changes; heart cath 05/28-now on ASA and Bivalirudin Monitor platelet count-currently WNL Monitor BP, adjust medications as needed Monitor glucose and continue insulin as ordered Discussed with nursing staff, and infectious disease 05/30 Extubated 05/27, continue Bipap/NC as per pulm Weaning steroids CXR-improving Leukocytosis Cefepime, Levaquin, Vanc discontinued Continue Tamiflu Failed speech therapy, continue to re-eval Continue tube feeds and meds via Dobhoff, feeds at 40ml/hr, goal of 80ml/hr Discontinue lasix, give 1L NS and re-eval fluid status Continue ASA and Bivalirudin per cardiology 05/31 Failed speech therapy, continue to re-eval Tube feedings and medications per Dobbhoff, goal 80 mL per hour tube feeding. Adjust insulin for hyperglycemia. 06/01 describes increased confusion/irritability-haloperidol initiated as needed. Converting to prednisone per Dobbhoff in a.m.; blood gas with mild hypoxia-FiO2 increased. Continue nutritional support per Dobbhoff; insulins again adjusted for persistent hyperglycemia. Chest pain described overnight, EKG unchanged. 06/02 Complaints of chest pain/dyspnea again this morning-resolved with position change. Intermittent confusion, haloperidol given twice overnight. Persistent hyperglycemia, scheduled short acting insulin adjusted further. Solu-Medrol discontinued, prednisone initiated per Dobbhoff this morning. Lactulose administered per Dobbhoff for ongoing constipation; MiraLAX added with recommendation the patient take it orally. Patient and family advised he will require rehabilitation before discharge home can be entertained. 06/03 IV steroids converted to prednisone 06/02-dosed decreased by pulmonary earlier today. Tamiflu for influenza A-initiated 05/29; course completed. Soft diet with ground meats with regular liquids per speech therapy. Dobbhoff out-circumstances unclear at present-but will give patient a trial of oral intake before reconsidering tube replacement. Insulin doses decreased significantly given discontinuation of tube feedings. Monitor Accu-Cheks every 2 hours overnight tonight. Continue ASA and Bivalirudin per cardiology; also on beta jesenia and atorvastatin. Blood sugars improved earlier today with insulin's that were increased yesterday however have eliminated scheduled short-acting insulin in light of discontinuation of tube feedings and decrease NovoLog from 60 to 30 units. Continue corrective scale. Anticipate further reductions in insulin with reduced prednisone dose Continue to work with PT/OT/Speech On usual doses of Wellbutrin and citalopram. Has Ativan and haloperidol available if needed for anxiety or delirium. Bladder training initiated although do not believe patient will be ready to DC F[place] in the immediate future. Lengthy discussion with family this evening; patient transferring back to CCU for close observation following Dobbhoff removal.
[2017-06-03] MEDS: ATORVASTATIN 40 MG TABLET PO SCH (22:48)
[2017-06-03] MEDS: NYSTATIN 500,000 units/5 ml ORAL LIQUID PO SCH (22:49)
[2017-06-03] MEDS: INSULIN GLARGINE 100unit/ml INJECTION SQ SCH (22:58)
[2017-06-04] MEDS: GUAIFENESIN 200mg/10ml ORAL LIQUID PO SCH ×4 (01:27→18:16)
[2017-06-04] MEDS: ALBUTEROL/IPRATROPIUM 2.5mg-0.5mg/3ml NEB AEROSOL SCH ×6 (03:29→23:37)
--- NOTE | 2017-06-04 07:37 | XRay Report ---
Indication: possible aspiration, hypoxia PROCEDURE: XR chest 1V: Encounter: Initial Comparison: June 03, 2017 at 0533 Findings: Linear scarring in the left base. Left PICC line remains in place. Lungs are stable without new consolidation. No gross pleural effusion or pneumothorax. Heart size and mediastinal contours are stable. Pulmonary vascularity is normal. Impression: Stable chest without focal pneumonia or aspiration. .
[2017-06-04] MEDS: BUDESONIDE INH.SOLN 0.5mg/2ml NEB AEROSOL SCH ×2 (08:08→19:40)
[2017-06-04] MEDS: OMEPRAZOLE 20 MG CAPSULE PO SCH (08:44)
[2017-06-04] MEDS: ASPIRIN *EC* 81 MG TABLET PO SCH (08:44)
[2017-06-04] MEDS: ATENOLOL 25 MG TABLET PO SCH ×2 (08:45→22:16)
[2017-06-04] MEDS: CITALOPRAM 40 MG TABLET PO SCH (08:45)
[2017-06-04] MEDS: BuPROPion SR 150mg (12HR) TABLET PO SCH ×2 (08:45→22:15)
[2017-06-04] MEDS: GABAPENTIN 300 MG CAPSULE PO SCH ×3 (08:45→22:15)
[2017-06-04] MEDS: TICAGRELOR 90 MG TABLET PO SCH ×2 (08:45→22:16)
[2017-06-04] MEDS: NYSTATIN 500,000 units/5 ml ORAL LIQUID PO SCH ×4 (08:47→22:14)
[2017-06-04] MEDS: POLYETHYL GLYCOL 3350 17gm PACKET PO SCH (08:47)
[2017-06-04] MEDS: AMLODIPINE 10 MG TABLET PO SCH (09:44)
[2017-06-04] MEDS: LISINOPRIL 10 MG TABLET PO SCH (09:45)
--- NOTE | 2017-06-04 11:57 | Progress Note ---
- Date 06/04/17 Subjective: Patient getting breathing treatment. Says he is starting to cough up some sputum but has been swallowing it. Nurse says he ate well at breakfast and had some shaking in his hands. He says he was lightheaded sitting up to eat. His expressed concerns about transfer to medical unit. Asked about transfer to [place]. Explained there is no clear medical need for transfer. They are OK with him going to the surgical floor. Objective Vital signs: Temperature 96.7 F L 06/03/17 16:41 Pulse Rate 72 06/04/17 08:45 Respiratory Rate 33 H 06/04/17 08:45 Blood Pressure 96/55 06/04/17 08:37 Pulse Oximetry 97 06/04/17 08:45 Rhythm: Normal Sinus Rhythm Height/Weight/BMI: Height 6 ft 0.83 in Weight 139.5 kg Body Mass Index 41.5 - Constitutional Present: no acute distress - Routine HEENT Exam Head: Present: normocephalic, atraumatic Eye: Present: EOMI, PERRL - Routine Respiratory Exam Present: CTA bilaterally. Absent: accessory muscle use - Routine Cardiovascular Exam Present: RRR - Routine Abdominal Exam Present: soft, normoactive bowel sounds, non distended, non tender - Routine Musculoskeletal Exam Musculoskeletal: Present: no clubbing or cyanosis - Routine Skin Exam Present: intact - Routine Neurological Exam Present: alert, oriented X3, CN II-XII intact, vision grossly intact, hearing grossly intact, facial asymmetry. Absent: sensory deficit, motor deficit gait not assessed - Routine Psychiatric Exam Present: normal affect Results - Labs CBC & Chem 7: 06/04/17 04:42 06/04/17 04:42 Microbiology Results: Microbiology 05/25/17 15:49 Midline Blood Culture - Final No Growth After 5 Days 05/25/17 15:43 Port/Picc Blood Culture - Final No Growth After 5 Days 05/20/17 04:36 Midline Blood Culture - Final No Growth After 5 Days 05/20/17 04:36 Midline Blood Culture - Final No Growth After 5 Days 05/21/17 13:45 Sputum, Expectorated Gram Stain - Final 05/21/17 13:45 Sputum, Expectorated Sputum Culture - Final Yeast, not C. albicans Normal Respiratory Charly - ABG Interpretation ABG results: 06/04/17 07:40 ABG pH 7.431 ABG pCO2 47 H ABG pO2 70 L ABG HCO3 31.0 H ABG Total CO2 33.0 H ABG O2 Saturation 94.0 L ABG Base Excess 6.0 H Assessment and Plan (1) Acute exacerbation of chronic obstructive airways disease Current visit: Yes Status: Acute (2) Acute and chronic respiratory failure with hypercapnia Current visit: Yes Status: Acute (3) NSTEMI (non-ST elevated myocardial infarction) Current visit: Yes Status: Acute Assessment and Plan: Assessment Acute on chronic respiratory failure with hypercapnia and hypoxia - baseline home oxygen at 5L; intubated 05/21-extubated on 05/27, now on Bipap/NC Leukocytosis-trending down NSTEMI-peak troponin 3.09, diffuse T changes, s/p heart cath with 2 stents 05/28 COPD exacerbation Transaminitis Influenza A Hyperglycemia Alerted Mental Status Thrombocytopenia Constipation suspect orthostatic hypotension Resolved Bilateral lower lobe pneumonia Bacteremia Fever Hypokalemia Wide complex tachycardia s/p cardioversion Dehydration Chronic Medical: Cardiomyopathy-EF 30% by echo 05/21/17 Pulmonary nodule - Irregular 2.2cm left lower lobe pulmonary nodule Anemia, unspecified, stable Coronary Artery Disease Hypertension Sleep Apnea Diabetes Mellitus Type 2 - A1c on 04/17/17 was 6.4% GERD Osteoarthritis Peripheral neuropathy Fibromyalgia Depression Tobacco dependency Peripheral vascular disease Morbid obesity - BMI >40 Plan Extubated 05/27, continue Bipap/NC-5 L as per pulm. IV steroids converted to prednisone 06/02-dosed decreased by pulmonary earlier today. Tamiflu for influenza A-initiated 05/29; course completed. Soft diet with ground meats with regular liquids per speech therapy. Insulin doses decreased significantly given discontinuation of tube feedings. Blood sugars down. Now eating more. Monitor. Continue corrective scale. Continue ASA and Bivalirudin per cardiology; also on beta jesenia and atorvastatin. Continue to work with PT/OT/Speech On usual doses of Wellbutrin and citalopram. Has Ativan and haloperidol available if needed for anxiety or delirium. Bladder training initiated although do not believe patient will be ready to DC [place] in the immediate future. Decrease amlodipine and lisinopril. Check orthostatics. - Physician Narrative Narrative: Date: 06/04/17 Time: 1133 Hospital Course Summary Disclaimer: The visit summary below is not to be considered part of the above Progress Note. Hospital Course: 2/9/18 Admission Admit to observation status under the care of Dr. Lopez. Sepsis work up initiated in ED. Patient meeting SIRS criteria based on tachycardia, tachypnea and reported fevers at home without obvious source. Initial lactate was 1.4 with repeat lactate decreased to 0.9. Blood cultures pending. WBC stable at 5.0. CXR revealed left basilar scarring without focal pneumonia. Respiratory panel was negative. Patient was given DuoNeb treatments and Solu-Medrol 125mg IV in ED. Will continue respiratory care with DuoNeb treatments QID and Q6H PRN as well as Solu -Medrol 125mg IV Q6H. History of diabetes with A1c on 04/17/17 at 6.4%. Continue home medications and monitor blood sugars closely given treatment with steroids. Sliding scale insulin as indicated for hyperglycemia. Patient was placed on BiPAP in ED with improvement. Continue BiPAP as indicated. Ativan as needed for anxiety and agitation while on BiPAP. Will monitor closely on telemetry with continuous pulse oximetry. Oxygen as needed to maintain SAO2 between 90-95%, weaning as able to baseline of 5L. SCDs for DVT prophylaxis. Given sudden onset of dyspnea, will obtain CT angio chest for further evaluation of PE - results pending. NS at 100cc/hr for hydration given decreased oral intake as on BiPAP. Monitor daily weight closely for signs of fluid overload. Recheck labs in AM to monitor blood counts, electrolytes and renal function. Patient wishes to maintain FULL CODE status. Upon discharge, patient's care will be returned to his PCP, Dr. Odom. 05/18/17 Don reports that his breathing is a little better today and is he is more alert. New cough with sputum production. 1 of the 2 blood cultures obtained on admission is POSITIVE for Streptococcus. Night telehospitalist was notified and Rocephin 2g IV Q24 hours was initiated for antimicrobial coverage. Given new cough, will try and obtain a sputum culture. Mucinex for mucolytic effect. Ricola for cough. Continue respiratory care including nebulized treatments. Continue to encourage BiPAP as indicated and supplemental oxygen to maintain SAO2 between 90 -95%. Wean oxygen to baseline of 5L as able. Given sudden onset of dyspnea, CT angio chest was obtained and revealed no PE but did note 2.2cm left lower lobe pulmonary nodule raising concern for primary lung malignancy and recommended further evaluation. Will discuss consideration of pulmonary consult for further evaluation. Continue Solu-Medrol 125mg IV Q6 hours. Anticipate initiation of tapering in near future. Blood sugars remain elevated, most likely steroid effect, ranging from 160's-> 200. Continue sliding scale insulin. Given recent CT with contrast, will hold metformin and restart 05/19/17. Continue NS at 75cc/hr for hydration. Monitor urinary output and daily weight closely for signs of fluid over load. Oral intake is good. Consider discontinuation of fluids this afternoon. Ativan as needed for anxiety and agitation while on BiPAP. Troponins continue to trend up slowing - 0.015, 0.017, 0.029, 0.045 and 0.048 this morning. Will recheck troponin at 1030 and continue to monitor closely on telemetry. Patient denies chest pain. SCDs for DVT prophylaxis. Recheck labs in AM to monitor blood counts, electrolytes and renal function. Discussed at length with patient and family the importance of smoking cessation. He admits to wanting to stop smoking and inquired about initiation of Chantix. Continue Wellbutrin for smoking cessation. With BC positive and starting IV antibiotics, will change admission status to inpatient. Anticipate greater than 2 midnights of care needed. 05/19/17 Continue with Rocephin for antimicrobial coverage. With lungs still very tight and congested, will continue with Solu-Medrol 125mg IV q 6 hours. Continue Neb treatments and acapella. Encourage use of BiPAP as much as able to help his chronic hypercapnea. Stressed with about the importance of him not smoking. She understand. Will consult with Dr Ashby for pulm evaluation. Will discontinue IVF. May restart metformin this evening. Sugars with elevation secondary to steroids. Did give Diamox 500mg x1 this am for fluid motivation and to help minimize contraction alkalosis. PT/OT to evaluate and initiate treatment tomorrow for his significant pulmonary debility. 05/20 Continue with Rocephin for antimicrobial coverage. One blood culture was positive with streptococcus Viridans, Repeat BC were drawn this morning. Scheduled breathing tx, IV solu-medrol, as well as oxygen and Bipap Appreciate Dr Ashby consultation. Likely require bronchoscopy for biopsy of lung mass. Continue to monitor BGM remain elevated. Metformin was resumed as well as sliding scale insulin. Encourage PT/OT for strengthening 05/21 Resp failure --> ABG shows resp acidosis and he was placed on BiPAP with improvement in color. Repeat ABG shows pH 7.12, pCO2 106, pO2 185. CXR ordered. BG 230. Chest pain --> EKG shows ST changes and widened QRS, poss a-flutter; troponin pending. Dr. Govea consulted. He's had 2 NTG but remains very hypertensive with SBP 220s. Pt failed to respond to adenosine, and subseqently was cardioverted with conversion to sinus tach. Rapid response activated and Dr. Ramírez was at bedside x20 min. Transferred to CCU, where pt was met by Dr. Govea for evaluation. Continue treatment for resp status including steroids and Rocephin. 05/22 Patient remains on a ventilator requiring continuous sedation. Oxygenation borderline on 40% FiO2-oxygen flow increased to 60% by pulmonary earlier today. Continue triple antibiotics (cefepime, Levaquin, vancomycin) pending sputum culture due to extensive pneumonia on CT/chest x-ray yesterday-not present on initial films. Peak troponin 3.09 with diffuse T-wave changes; discussed with Dr. Govea and will require cardiac catheterization in the future. Continue heparin drip. Blood pressure is uncontrolled-clonidine patch initiated earlier, IV hydralazine added as needed for systolic pressures above 180. OG placed-resume statin, SSRI, atenolol, and aspirin. Assess gastric residuals today-anticipate beginning tube feedings tomorrow. Adequate urine output, continue to monitor. Blood sugars remain elevated, off metformin at present. Increase basal insulin. 05/23 Patient remains on a ventilator requiring continuous sedation. Continue triple antibiotics (cefepime, Levaquin, vancomycin); suspect aspiration pneumonia-sputum culture normal charly. Extensive infiltrates on CT chest. Repeat chest x-ray in a.m. Fluid balance positive-roughly 5 L over several days, weight up-diuresis today. Potassium supplemented IV earlier today. Peak troponin 3.09 with diffuse T-wave changes; discussed with Dr. Govea and will require cardiac catheterization in the future. Continue heparin drip. Blood pressure remains elevated but improved from yesterday with addition of clonidine patch and resumption of atenolol per OG. IV hydralazine available as needed for systolic pressures above 180. OG placed 05/22-low volume gastric output overnight and tolerating medications per OG. Will initiate tube feedings with low glycemic formula at 20 mL per hour overnight. Nutrition consult. Blood sugars remain elevated, off metformin at present and on steroids. Increase basal insulin to 40 units anticipating further increase in blood sugar with initiation of tube feedings. 05/24 Remains ventilator dependent. Steroids decreased. Vancomycin discontinued, continue Levaquin and cefepime for probable aspiration pneumonia and Streptococcus viridans positive blood culture. Continue diuresis, blood pressures elevated-atenolol increased and lisinopril initiated to improve control. Tolerating tube feedings at low-volume, converted pulmonary formula with goal of 80 mL per hour. Platelet count dropping, heparin discontinued and bivalirudin initiated. 05/25 Tolerating spontaneous breathing trial, steroids decreased. Continues to require continuous sedation. Lisinopril increased to 20 mg to improve blood pressure control. Platelet count down to 100K; HIT Ab pending. Fevers overnight without evidence source, leukocytosis/left shift resolved improved. Lines to be cultured. 05/26 FiO2 titrated to 40%; diuresing well-continue same. Spontaneous breathing trial planned for the morning with possible extubation at that time. Cardiac status stable, no further tachyarrhythmias. Trend to improved blood pressures. Cardiac catheterization planned in the future. Remains on bivalirudin. Platelet count 86K today, HIT Ab pending. Tube feedings at goal, blood sugars significantly elevated-NovoLog scheduled every 6 hours and when necessary. Chest x-ray improved, remains on Levaquin and cefepime for probable aspiration pneumonia. Blood cultures drawn yesterday negative thus far. 05/27 Extubated this afternoon, OG discontinued in conjunction with extubation. CPAP initiated for respiratory support. Speech therapy, PT, OT consultations tomorrow. Anticipate significant reduction in fluid volume off sedating medications and tube feedings--> Lasix dose decreased to twice daily administration. Platelet count stabilizing, HIT Ab negative. Intermittent fever, remains on antibiotics for possible aspiration pneumonia. Repeat blood cultures negative. 05/29 Extubated 05/27 Placed on CPAP with home equipment. Baseline 5L Currently tolerating NC, oxygen support as needed to maintain sats and mentation , pulm consulted and following CXR-stable Leukocytosis-likely 2/2 steroid effect, PCT negative, no fever x48 hours Cefepime and Levaquin currently. Vanc discontinued 05/24. Likely d/c abx today. Will consult ID for abx recs Failed speech therapy Continue tube feeds and meds via [place] Monitor fluid status-hold evening dose of lasix Peak troponin 3.09 on 05/21/17 with diffuse T-wave changes; heart cath 05/28-now on ASA and Bivalirudin Monitor platelet count-currently WNL Monitor BP, adjust medications as needed Monitor glucose and continue insulin as ordered Discussed with nursing staff, and infectious disease 05/30 Extubated 05/27, continue Bipap/NC as per pulm Weaning steroids CXR-improving Leukocytosis Cefepime, Levaquin, Vanc discontinued Continue Tamiflu Failed speech therapy, continue to re-eval Continue tube feeds and meds via [place], feeds at 40ml/hr, goal of 80ml/hr Discontinue lasix, give 1L NS and re-eval fluid status Continue ASA and Bivalirudin per cardiology 05/31 Failed speech therapy, continue to re-eval Tube feedings and medications per Dobbhoff, goal 80 mL per hour tube feeding. Adjust insulin for hyperglycemia. 06/01 describes increased confusion/irritability-haloperidol initiated as needed. Converting to prednisone per Dobbhoff in a.m.; blood gas with mild hypoxia-FiO2 increased. Continue nutritional support per Dobbhoff; insulins again adjusted for persistent hyperglycemia. Chest pain described overnight, EKG unchanged. 06/02 Complaints of chest pain/dyspnea again this morning-resolved with position change. Intermittent confusion, haloperidol given twice overnight. Persistent hyperglycemia, scheduled short acting insulin adjusted further. Solu-Medrol discontinued, prednisone initiated per Dobbhoff this morning. Lactulose administered per Dobbhoff for ongoing constipation; MiraLAX added with recommendation the patient take it orally. Patient and family advised he will require rehabilitation before discharge home can be entertained. 06/03 IV steroids converted to prednisone 06/02-dosed decreased by pulmonary earlier today. Tamiflu for influenza A-initiated 05/29; course completed. Soft diet with ground meats with regular liquids per speech therapy. Dobbhoff out-circumstances unclear at present-but will give patient a trial of oral intake before reconsidering tube replacement. Insulin doses decreased significantly given discontinuation of tube feedings. Monitor Accu-Cheks every 2 hours overnight tonight. Continue ASA and Bivalirudin per cardiology; also on beta jesenia and atorvastatin. Blood sugars improved earlier today with insulin's that were increased yesterday however have eliminated scheduled short-acting insulin in light of discontinuation of tube feedings and decrease NovoLog from 60 to 30 units. Continue corrective scale. Anticipate further reductions in insulin with reduced prednisone dose Continue to work with PT/OT/Speech On usual doses of Wellbutrin and citalopram. Has Ativan and haloperidol available if needed for anxiety or delirium. Bladder training initiated although do not believe patient will be ready to DC [place] in the immediate future. Lengthy discussion with family this evening; patient transferring back to CCU for close observation following Dobbhoff removal. 06/04 Plan Extubated 05/27, continue Bipap/NC-5 L as per pulm. IV steroids converted to prednisone 06/02-dosed decreased by pulmonary earlier today. Tamiflu for influenza A-initiated 05/29; course completed. Soft diet with ground meats with regular liquids per speech therapy. Insulin doses decreased significantly given discontinuation of tube feedings. Blood sugars down. Now eating more. Monitor. Continue corrective scale. Continue ASA and Bivalirudin per cardiology; also on beta jesenia and atorvastatin. Continue to work with PT/OT/Speech On usual doses of Wellbutrin and citalopram. Has Ativan and haloperidol available if needed for anxiety or delirium. Bladder training initiated although do not believe patient will be ready to DC [place] in the immediate future. Decrease amlodipine and lisinopril. Check orthostatics.
[2017-06-04] MEDS: INSULIN ASPART 100unit/ml INJECTION SQ PRN ×2 (15:45→17:34)
--- NOTE | 2017-06-04 15:45 | Cardiology Progress Note ---
<Andreina Grijalva M - Last Filed: 06/12/17 08:39> Subjective Principal diagnosis: NSTEMI Interval history: Howard is seen in follow up for chest pain and NSTEMI. He is in his room in CCU. He denies chest pain, palpitations, or other cardiac complaints. Exam Vital signs: Temperature 96.7 F L 06/04/17 09:00 Pulse Rate 87 06/04/17 15:00 Respiratory Rate 30 H 06/04/17 15:01 Blood Pressure 102/59 06/04/17 12:00 Pulse Oximetry 93 06/04/17 15:01 Inpatient Medications: Generic Name Dose Route Start Last Admin Trade Name Freq PRN Reason Stop Dose Admin Acetaminophen 325 - 650 mg 05/17/17 10:08 06/01/17 21:51 Tylenol PO 650 mg Q5H PRN Administration Discomfort Hydrocodone Bitart/Acetaminophen 1 tab 05/17/17 10:14 06/02/17 17:00 [place] 7.5/325 PO 1 tab Q6H PRN Administration Pain Al Hydroxide/Mg Hydroxide 30 ml 05/28/17 09:24 Maalox Plus PO Q3H PRN Indigestion Albuterol/Ipratropium 3 ml 05/17/17 10:11 Duoneb AEROSOL RTQID PRN Albuterol/Ipratropium 3 ml 05/21/17 15:15 06/04/17 15:00 Duoneb AEROSOL 3 ml Q4H [facility] Administration Amlodipine Besylate 5 mg 06/04/17 11:41 Norvasc PO DAILY [facility] Aspirin 81 mg 05/28/17 09:24 06/04/17 08:44 Ecotrin PO 81 mg DAILY [facility] Administration Atenolol 25 mg 05/29/17 09:00 06/04/17 08:45 Tenormin PO 25 mg BID [facility] Administration Atorvastatin Calcium 80 mg 05/28/17 21:00 06/03/17 22:48 Lipitor PO 80 mg HS [facility] Administration Bisacodyl 10 mg 05/27/17 15:11 Dulcolax RECTALLY DAILY PRN Constipation Bisacodyl 5 - 10 mg 05/28/17 09:24 Dulcolax PO DAILY PRN Constipation Budesonide 0.5 mg 05/17/17 19:00 06/04/17 08:08 Pulmicort Inhalation AEROSOL 0.5 mg RTBID [facility] Administration Bupropion HCl 150 mg 05/17/17 21:00 06/04/17 08:45 Wellbutrin Sr PO 150 mg BID [facility] Administration Citalopram Hydrobromide 40 mg 05/18/17 09:00 06/04/17 08:45 Celexa PO 40 mg DAILY [facility] Administration Clonidine HCl 0.1 mg 05/22/17 09:00 05/29/17 08:01 Catapres-Tts 1 TD 0.1 mg Q7D@0900 [facility] Administration Clonidine HCl 1 removal 05/29/17 08:59 05/29/17 08:13 Catapres Patch Removal TD 1 removal Q7D [facility] Administration Gabapentin 300 mg 05/17/17 15:00 06/04/17 15:39 Neurontin PO 300 mg TID [facility] Administration Glucose 37.5 gm 05/17/17 10:12 Glutose 15 PO PRN PRN Hypoglycemia Guaifenesin 400 mg 05/29/17 12:00 06/04/17 15:39 Robitussin Liq PO 400 mg Q6H [facility] Administration Haloperidol 1 mg 06/03/17 20:30 Haldol PO Q4H PRN Insulin Aspart 2 - 14 unit 05/21/17 11:43 06/03/17 19:42 Novolog SQ 4 unit SS PRN Administration Hyperglycemia Protocol Insulin Glargine 30 unit 06/03/17 21:00 06/03/17 22:58 Lantus SQ 30 unit HS [facility] Administration Lisinopril 20 mg 06/01/17 09:00 06/04/17 09:45 Prinivil PO 20 mg DAILY [facility] Administration Lisinopril 10 mg 06/05/17 09:00 Prinivil PO DAILY [facility] Lorazepam 0.5 - 1 mg 05/28/17 09:24 06/02/17 13:52 Ativan PO 0.5 mg Q4H PRN Administration Anxiety Magnesium Hydroxide 30 ml 05/28/17 09:24 Mom PO DAILY PRN Constipation Nitroglycerin 0.4 mg 05/31/17 23:49 06/02/17 08:11 Nitrostat SL 0.4 mg Q5M PRN Administration Chest pain Nystatin 5 ml 06/03/17 21:00 06/04/17 15:39 Mycostatin PO 06/13/17 20:59 5 ml QID [facility] Administration Omeprazole 40 mg 05/18/17 06:30 06/04/17 08:44 Prilosec PO 40 mg ACB [facility] Administration Ondansetron HCl 4 mg 05/28/17 09:24 Zofran IVP Q6H PRN Nausea &/or vomiting Polyethylene Glycol 17 gm 06/03/17 09:00 06/04/17 08:47 Miralax PO 17 gm DAILY [facility] Administration Prednisone 50 mg 06/03/17 11:15 06/04/17 08:44 Deltasone 50 Mg PO 50 mg WB [facility] Administration Sodium Chloride 10 - 80 ml 05/17/17 05:20 06/02/17 05:32 Iv Flush IVF 10 ml PRN PRN Administration Flushing Sodium Chloride 1 spray 05/19/17 11:42 05/19/17 16:37 Deep Sea Nasal Moisturizing [place] EA NOSTRIL 1 spray PRN PRN Administration Congestion Sodium Chloride 500 ml 05/25/17 21:40 05/25/17 21:52 Normal Saline IV 500 ml PRN PRN Administration Ticagrelor 90 mg 05/28/17 21:01 06/04/17 08:45 Brilinta PO 90 mg Q12H [facility] Administration Discontinued Medications Generic Name Dose Route Start Last Admin Trade Name Freq PRN Reason Stop Dose Admin Acetaminophen 650 mg 05/21/17 15:10 Tylenol Supp [place] Q5H PRN Pain Acetaminophen 325 - 650 mg 05/28/17 09:24 Tylenol PO Q5H PRN Pain Hydrocodone Bitart/Acetaminophen 1 tab 05/17/17 21:00 05/31/17 08:42 [place] 7.5/325 PO 1 tab BID [facility] Administration Hydrocodone Bitart/Acetaminophen 1 - 2 tab 05/28/17 09:24 [place] 5/325 PO Q5H PRN Pain Acetazolamide 500 mg 05/19/17 10:51 05/19/17 11:25 Diamox PO 05/19/17 10:52 500 mg O ONE Administration Adenosine 12 mg 05/21/17 09:17 05/21/17 08:50 Adenocard IVP 05/21/17 09:18 12 mg O ONE Administration Adenosine 6 mg 05/21/17 09:18 05/21/17 09:23 Adenocard IVP 05/21/17 09:19 6 mg O ONE Administration Albuterol/Ipratropium 6 ml 05/17/17 05:19 05/17/17 05:33 Duoneb AEROSOL 05/17/17 05:20 6 ml O ONE Administration Albuterol/Ipratropium 3 ml 05/17/17 11:00 05/21/17 18:22 Duoneb AEROSOL Not Given RTQID [facility] Amlodipine Besylate 10 mg 05/24/17 13:46 06/04/17 09:44 Norvasc PO 10 mg DAILY [facility] Administration Aspirin 81 mg 05/18/17 09:00 05/23/17 08:26 Asa PO Not Given DAILY [facility] Aspirin 81 mg 05/22/17 16:00 05/31/17 08:42 Asa GT 81 mg DAILY [facility] Administration Atenolol 25 mg 05/18/17 09:00 05/24/17 08:58 Tenormin PO 25 mg DAILY [facility] Administration Atenolol 50 mg 05/25/17 09:00 05/28/17 12:30 Tenormin PO Not Given DAILY [facility] Atenolol 25 mg 05/24/17 09:40 05/24/17 11:09 Tenormin PO 05/24/17 09:41 25 mg O ONE Administration Atropine Sulfate 0.5 mg 05/28/17 09:24 Atropine IVP Q5M PRN Bradycardia Benzocaine 1 lozenge 05/20/17 18:54 Cepacol Sore Throat Lozenge MM Q2HR PRN Sore throat Bisacodyl 10 mg 05/28/17 09:24 Dulcolax RECTALLY DAILY PRN Constipation Bivalirudin 250 mg 05/24/17 14:15 Angiomax IV NOW [facility] Enoxaparin Sodium 1 each 05/18/17 10:47 05/18/17 12:54 Pharmacy Consult - Lovenox MC 05/18/17 10:48 1 each O ONE Administration Enoxaparin Sodium 50 mg 05/18/17 11:45 05/20/17 08:37 Lovenox SQ 50 mg DAILY [facility] Administration Enoxaparin Sodium 142 mg 05/27/17 17:00 05/28/17 09:34 Lovenox SQ 142 mg DAILY [facility] Administration Furosemide 20 mg 05/18/17 09:00 05/20/17 08:37 Lasix PO 20 mg DAILY [facility] Administration Furosemide 40 mg 05/21/17 09:37 05/21/17 09:45 Lasix IVP 05/21/17 09:38 40 mg ONCE ONE Administration Furosemide 20 mg 05/23/17 21:00 05/24/17 08:59 Lasix IVP 20 mg Q12HR [facility] Administration Furosemide 20 mg 05/24/17 17:00 05/27/17 09:31 Lasix IVP 20 mg Q8HR [facility] Administration Furosemide 20 mg 05/27/17 21:00 05/29/17 08:09 Lasix IVP 20 mg Q12H [facility] Administration Furosemide 20 mg 05/29/17 09:00 Lasix IVP DAILY [facility] Guaifenesin 1,200 mg 05/18/17 09:00 05/29/17 08:14 Mucinex La PO Not Given BID [facility] Haloperidol Decanoate 1 mg 06/01/17 17:43 06/02/17 17:00 Haldol Liquid GT 1 mg Q4H PRN Administration Heparin Sodium (Beef Lung) 5,000 unit 05/21/17 09:23 05/21/17 10:07 Heparin Bolus IVP 05/21/17 09:24 5,000 unit O ONE Administration Heparin Sodium (Beef Lung) 3,000 unit 05/21/17 17:45 05/21/17 17:53 Heparin Bolus IVP 05/21/17 17:46 3,000 unit O ONE Administration Heparin Sodium (Beef Lung) 3,000 unit 05/22/17 03:37 05/22/17 03:46 Heparin Bolus IVP 05/22/17 03:38 3,000 unit O ONE Administration Heparin Sodium (Porcine) 1 each 05/21/17 09:08 Pharmacy Consult - Heparin MC 05/21/17 09:09 ONE TIME ONE Hydralazine HCl 5 mg 05/22/17 08:47 05/22/17 10:09 Apresoline IVP 5 mg Q6H PRN Administration Hypertension Hydralazine HCl 10 mg 05/22/17 15:01 05/28/17 06:06 Apresoline IVP 10 mg Q4H PRN Administration Hypertension Sodium Chloride 1,000 mls @ 999.9 mls/hr 05/17/17 05:44 05/17/17 11:20 Normal Saline IV 05/17/17 06:43 Infused .Q1H ONE Infusion Sodium Chloride 1,000 mls @ 75 mls/hr 05/17/17 10:08 05/19/17 11:19 Normal Saline IV Infused .[id number] [facility] Infusion Ceftriaxone Sodium 2 gm/ 100 mls @ 200 mls/hr 05/18/17 01:15 05/18/17 01:50 Sodium Chloride IV Infused Q24H [facility] Infusion Ceftriaxone Sodium 2 gm/ 50 mls @ 100 mls/hr 05/18/17 21:00 05/20/17 21:55 Sodium Chloride IV Infused Q24H [facility] Infusion Heparin Sodium (Porcine) 20,000 unit in 500 mls @ 44 mls/hr 05/21/17 09:30 13:17 Heparin Drip IV Infused .[id number] [facility] Titration Protocol Dexmedetomidine HCl 200 mcg/ 52 mls @ 6.87 mls/hr 05/21/17 09:52 05/21/17 20: 00 Sodium Chloride IV 05/21/17 20:29 0 mcg/kg/hr .Q7H35M PRN 0 mls/hr Protocol Titration 0.2 MCG/KG/HR Propofol 1,000 mg in 100 mls @ 3.969 mls/hr 05/21/17 10:39 05/21/17 14:28 Diprivan IV 0 mcg/kg/min .Q24H PRN 0 mls/hr Protocol Infusion 5 MCG/KG/MIN Fentanyl 1,000 mcg/ Sodium 100 mls @ 0 mls/hr 05/21/17 13:02 05/27/17 14:45 Chloride IV Infused .Q0M PRN Titration Protocol Per Protocol Sodium Chloride 250 mls @ 999.9 mls/hr 05/21/17 13:15 05/21/17 14:28 Normal Saline IV 05/21/17 13:29 Infused .Q15M [facility] Infusion Cefepime HCl 1 gm/ Sodium 50 mls @ 100 mls/hr 05/21/17 15:30 05/29/17 10:46 Chloride IV Infused Q6H [facility] Infusion Levofloxacin/Dextrose 750 mg in 150 mls @ 100 mls/hr 05/21/17 16:00 05/28/17 17:15 Levaquin Premix IV Infused Q24H [facility] Infusion Vancomycin HCl 1,500 mg/ 500 mls @ 250 mls/hr 05/21/17 18:00 05/24/17 12:15 Sodium Chloride IV Infused Q8H [facility] Infusion Dexmedetomidine HCl 1,000 mcg/ 260 mls @ 6.87 mls/hr 05/21/17 20:30 05/27/17 14:45 Sodium Chloride IV 05/27/17 14:45 Infused .Q24H PRN Titration Protocol 0.2 MCG/KG/HR Potassium Chloride 10 meq in 100 mls @ 100 mls/hr 05/23/17 09:45 05/23/17 17: 34 Potassium Chloride Premix IV 05/23/17 13:44 Infused Q1H [facility] Infusion Heparin Sodium (Porcine) 20,000 unit in 500 mls @ 45 mls/hr 05/23/17 16:00 06:16 Heparin Drip IV Not Given .Q11H7M [facility] Protocol Potassium Chloride 10 meq in 100 mls @ 100 mls/hr 05/24/17 09:45 05/24/17 15: 56 Potassium Chloride Premix IV 05/24/17 13:44 Not Given Q1H [facility] Potassium Chloride 10 meq/ 105 mls @ 105 mls/hr 05/24/17 11:45 05/24/17 17:00 Sodium Chloride IV 05/24/17 15:44 Infused Q1H [facility] Infusion Bivalirudin 250 mg/ Sodium 500 mls @ 43.2 mls/hr 05/24/17 15:15 05/27/17 17: 34 Chloride IV Not Given .[id number] [facility] Sodium Chloride 1,000 mls @ 75 mls/hr 05/28/17 07:45 05/28/17 14:00 Normal Saline IV Infused .[id number] [facility] Infusion Sodium Chloride 1,000 mls @ 500 mls/hr 05/30/17 10:14 05/30/17 10:41 Normal Saline IV 05/30/17 12:13 500 mls/hr .Q2H ONE Administration Sodium Chloride 1,000 mls @ 60 mls/hr 05/30/17 17:00 05/31/17 06:00 Normal Saline IV 05/31/17 09:39 60 mls/hr .[id number] [facility] Infusion Insulin Aspart 1 - 5 unit 05/17/17 10:12 05/18/17 06:06 Novolog SQ 2 unit SS PRN Administration Hyperglycemia Protocol Insulin Aspart 2 - 8 unit 05/18/17 08:22 05/21/17 07:30 Novolog SQ 3 unit SS PRN Administration Hyperglycemia Protocol Insulin Aspart 15 unit 05/20/17 10:32 05/20/17 10:36 Novolog SQ 05/20/17 10:33 15 unit ONE TIME ONE Administration Insulin Aspart 10 unit 05/26/17 12:00 05/26/17 13:54 Novolog SQ Not Given Q6H [facility] Insulin Aspart 10 unit 05/26/17 15:00 05/27/17 21:06 Novolog SQ Not Given 0300,0900,1500,2100 [facility] Insulin Aspart 10 unit 05/28/17 15:00 Novolog SQ Q6HR [facility] Insulin Aspart 10 unit 05/28/17 18:00 05/31/17 06:11 Novolog SQ 10 unit Q6H [facility] Administration Insulin Aspart 12 unit 05/31/17 08:41 06/03/17 19:14 Novolog SQ Not Given Q6H [facility] Insulin Aspart 15 unit 06/01/17 15:00 06/02/17 10:37 Novolog SQ Not Given Q6H [facility] Insulin Aspart 18 unit 06/02/17 09:58 06/03/17 17:37 Novolog SQ 18 unit Q6H [facility] Administration Insulin Glargine 10 unit 05/21/17 21:00 05/21/17 20:14 Lantus SQ 10 unit HS [facility] Administration Insulin Glargine 20 unit 05/22/17 21:00 05/22/17 20:14 Lantus SQ 20 unit HS [facility] Administration Insulin Glargine 40 unit 05/23/17 21:00 05/30/17 21:34 Lantus SQ 40 unit HS [facility] Administration Insulin Glargine 50 unit 05/31/17 08:41 05/31/17 21:06 Lantus SQ 50 unit HS [facility] Administration Insulin Glargine 60 unit 06/01/17 21:00 06/02/17 20:23 Lantus SQ 60 unit HS [facility] Administration Labetalol HCl 10 mg 05/21/17 20:40 05/22/17 06:05 Trandate IVP 10 mg Q4H PRN Administration INCREASED blood pressure Lactulose 20 gm 06/02/17 10:00 06/02/17 11:09 Lactulose PO 06/02/17 10:01 20 gm O ONE Administration Lisinopril 10 mg 05/24/17 16:15 02/23/18 08:42 Prinivil PO 10 mg DAILY [facility] Administration Lisinopril 10 mg 05/31/17 15:18 05/31/17 15:43 Prinivil PO 05/31/17 15:19 10 mg O ONE Administration Lorazepam 1 mg 05/17/17 06:16 05/17/17 06:56 Ativan PO 05/17/17 06:17 1 mg O ONE Administration Lorazepam 0.5 mg 05/17/17 10:13 05/24/17 15:55 Ativan Inj IVP 0.5 mg Q6H PRN Administration Lorazepam 1 mg 05/24/17 19:46 05/31/17 01:43 Ativan Inj IVP 1 mg Q2H PRN Administration Agitation/Air hunger/Pain Lorazepam 0.5 - 1 mg 05/28/17 09:24 Ativan Inj IVP Q4H PRN Anxiety Magnesium Hydroxide 30 ml 05/26/17 12:41 05/26/17 13:53 Mom GT 05/26/17 12:42 30 ml O ONE Administration Menthol 1 lozenge 05/18/17 08:19 Ricola Sf MM PRN PRN Cough Metformin HCl 500 mg 05/17/17 17:30 05/18/17 10:00 Glucophage PO Not Given BIDWM [facility] Metformin HCl 500 mg 05/19/17 09:00 05/21/17 10:52 Glucophage PO Not Given BIDWM [facility] Methylprednisolone Sodium Succinate 125 mg 05/17/17 06:26 05/17/17 06:53 Solu-Medrol IM 05/17/17 06:27 125 mg O ONE Administration Methylprednisolone Sodium Succinate 125 mg 05/17/17 15:00 05/20/17 08:37 Solu-Medrol IVP 125 mg Q6HR [facility] Administration Methylprednisolone Sodium Succinate 80 mg 05/20/17 15:00 05/24/17 08:57 Solu-Medrol IVP 80 mg Q6HR [facility] Administration Methylprednisolone Sodium Succinate 80 mg 05/24/17 17:00 05/26/17 08:23 Solu-Medrol IVP 80 mg Q8HR [facility] Administration Methylprednisolone Sodium Succinate 80 mg 05/26/17 21:00 05/29/17 08:15 Solu-Medrol IVP 80 mg Q12HR [facility] Administration Methylprednisolone Sodium Succinate 60 mg 05/29/17 21:00 06/01/17 21:57 Solu-Medrol IVP 06/02/17 04:00 60 mg Q12HR [facility] Administration Metoclopramide HCl 5 mg 05/23/17 17:30 05/30/17 10:42 Reglan GT 5 mg Q6H [facility] Administration Metoclopramide HCl 5 - 10 mg 05/28/17 09:24 Reglan IVP Q6H PRN Nausea &/or vomiting Metoclopramide HCl 5 mg 05/30/17 14:00 06/03/17 23:15 Reglan GT Not Given Q6H [facility] Metoprolol Tartrate 15 mg 05/21/17 09:18 05/21/17 09:05 Lopressor IVP 05/21/17 09:19 15 mg ONCE ONE Administration Metoprolol Tartrate 5 mg 05/28/17 10:01 05/28/17 10:00 Lopressor IVP 05/28/17 10:02 5 mg ONCE ONE Administration Morphine Sulfate 1 - 2 mg 05/17/17 10:08 05/24/17 17:56 Morphine Sulfate Inj IVP 2 mg Q2H PRN Administration Pain Morphine Sulfate 2 - 4 mg 05/28/17 09:24 05/28/17 10:17 Morphine Sulfate Inj IVP 05/29/17 09:23 4 mg Q2H PRN Administration Pain Morphine Sulfate 2 - 4 mg 05/28/17 09:24 06/02/17 08:19 Morphine Sulfate Inj IVP 2 mg Q5M PRN Administration Angina Nitroglycerin 0.4 mg 05/17/17 10:14 05/21/17 08:35 Nitrostat SL 0.4 mg Q5MIN3 PRN Administration CP Nitroglycerin 0.4 mg 05/28/17 09:24 Nitrostat SL Q5M PRN Angina --Pom--(Itraconazole 200 mg 05/17/17 21:00 05/29/17 09:39 [Itraconazole] 200 PO Not Given Mg) BID [facility] Ondansetron HCl 4 mg 05/17/17 10:08 05/19/17 02:45 Zofran IVP 4 mg Q6H PRN Administration Nausea &/or vomiting Oseltamivir Phosphate 75 mg 05/29/17 21:00 06/03/17 09:27 Tamiflu 06/03/17 09:01 75 mg BID [facility] Administration Pantoprazole Sodium 40 mg 05/22/17 09:00 05/31/17 08:44 Protonix Iv IVP 40 mg DAILY [facility] Administration Pharmacy Consult 1 each 05/17/17 10:32 Pharmacy Consult - Fall Risk XX 05/17/17 10:33 ONE TIME ONE Pharmacy Consult 1 each 05/27/17 10:17 Pharmacy Consult - Fall Risk XX 05/27/17 10:18 ONE TIME ONE Potassium Chloride 40 meq 05/24/17 18:10 05/26/17 06:13 Kcl Oral Liq 20 Meq/15 Ml PO Not Given BIDWM [facility] Potassium Chloride 40 meq 05/25/17 13:00 05/26/17 08:22 Kcl Oral Liq 20 Meq/15 Ml PO 40 meq QID [facility] Administration Potassium Chloride 40 meq 05/26/17 12:00 05/27/17 12:04 Kcl Oral Liq 20 Meq/15 Ml PO 40 meq TIDWM [facility] Administration Potassium Chloride 40 meq 05/27/17 17:30 05/29/17 07:59 Kcl Oral Liq 20 Meq/15 Ml PO 40 meq BIDWM [facility] Administration Potassium Chloride 40 meq 05/29/17 09:00 05/30/17 08:42 Kcl Oral Liq 20 Meq/15 Ml PO 40 meq DAILY [facility] Administration Prednisone 60 mg 06/02/17 08:00 06/03/17 09:20 Deltasone 20 Mg PO 60 mg WB [facility] Administration Promethazine HCl 12.5 - 25 mg 05/28/17 09:24 Phenergan Inj IVP Q6HR PRN Nausea &/or vomiting Simvastatin 20 mg 05/17/17 21:00 05/27/17 20:36 Zocor PO Not Given HS [facility] Vancomycin HCl 1 each 05/21/17 15:19 05/21/17 15:53 Pharmacy Consult - Vancomycin MC 05/21/17 15:20 1 each O ONE Administration - Constitutional no acute distress, morbidly obese, cooperative - Routine HEENT Exam Head: Present: normocephalic ENT: Present: mucous membranes moist - Routine Neck Exam Absent: JVD, carotid bruit - Routine Chest/Breast/Axilla Exam Chest wall: Absent: tenderness - Routine Respiratory Exam Present: decreased breath sounds, CTA bilaterally. Absent: wheezes - Routine Cardiovascular Exam Present: RRR, no murmur - Routine Abdominal Exam Present: soft, distended - Routine Extremities Exam Present: edema - Routine Skin Exam Present: intact, dry, warm - Routine Neurological Exam Present: alert - Routine Psychiatric Exam Present: normal affect - Additional findings Additional findings: Acetaminophen (Tylenol) 325 - 650 mg PO Q5H PRN PRN Reason: Discomfort Last Admin: 06/01/17 21:51 Dose: 650 mg Hydrocodone Bitart/Acetaminophen ([place] 7.5/325) 1 tab PO Q6H PRN PRN Reason: Pain Last Admin: 06/02/17 17:00 Dose: 1 tab Al Hydroxide/Mg Hydroxide (Maalox Plus) 30 ml PO Q3H PRN PRN Reason: Indigestion Albuterol/Ipratropium (Duoneb) 3 ml AEROSOL RTQID PRN Albuterol/Ipratropium (Duoneb) 3 ml AEROSOL Q4H [facility] Last Admin: 06/05/17 15:11 Dose: 3 ml Amlodipine Besylate (Norvasc) 5 mg PO DAILY [facility] Last Admin: 06/05/17 09:09 Dose: 5 mg Aspirin (Ecotrin) 81 mg PO DAILY [facility] Last Admin: 06/05/17 09:02 Dose: 81 mg Atenolol (Tenormin) 25 mg PO BID [facility] Last Admin: 06/05/17 09:02 Dose: 25 mg Atorvastatin Calcium (Lipitor) 80 mg PO HS [facility] Last Admin: 06/04/17 22:15 Dose: 80 mg Bisacodyl (Dulcolax) 10 mg RECTALLY DAILY PRN PRN Reason: Constipation Bisacodyl (Dulcolax) 5 - 10 mg PO DAILY PRN PRN Reason: Constipation Budesonide (Pulmicort Inhalation) 0.5 mg AEROSOL RTBID [facility] Last Admin: 06/05/17 07:31 Dose: 0.5 mg Bupropion HCl (Wellbutrin Sr) 150 mg PO BID [facility] Last Admin: 06/05/17 09:02 Dose: 150 mg Citalopram Hydrobromide (Celexa) 40 mg PO DAILY [facility] Last Admin: 06/05/17 09:02 Dose: 40 mg Clonidine HCl (Catapres-Tts 1) 0.1 mg TD Q7D@0900 [facility] Last Admin: 06/05/17 09:05 Dose: Not Given Clonidine HCl ([place]ap[place] Patch Removal) 1 removal TD Q7D [facility] Last Admin: 06/05/17 09:05 Dose: 1 removal Gabapentin (Neurontin) 300 mg PO TID [facility] Last Admin: 06/05/17 15:52 Dose: 300 mg Glucose (Glutose 15) 37.5 gm PO PRN PRN PRN Reason: Hypoglycemia Guaifenesin (Robitussin Liq) 400 mg PO Q6H [facility] Last Admin: 06/05/17 11:42 Dose: 400 mg Haloperidol (Haldol) 1 mg PO Q4H PRN Insulin Aspart (Novolog) 2 - 14 unit SQ SS PRN; Protocol PRN Reason: Hyperglycemia Last Admin: 06/05/17 09:44 Dose: 4 unit Insulin Glargine (Lantus) 30 unit SQ HS [facility] Last Admin: 06/04/17 22:14 Dose: 30 unit Lisinopril (Prinivil) 10 mg PO DAILY [facility] Last Admin: 06/05/17 09:08 Dose: 10 mg Lorazepam (Ativan) 0.5 - 1 mg PO Q4H PRN PRN Reason: Anxiety Last Admin: 06/02/17 13:52 Dose: 0.5 mg Magnesium Hydroxide (Mom) 30 ml PO DAILY PRN PRN Reason: Constipation Nitroglycerin (Nitrostat) 0.4 mg SL Q5M PRN PRN Reason: Chest pain Last Admin: 06/02/17 08:11 Dose: 0.4 mg Nystatin (Mycostatin) 5 ml PO QID [facility] Stop: 06/13/17 20:59 Last Admin: 06/05/17 13:26 Dose: 5 ml Omeprazole (Prilosec) 40 mg PO ACB [facility] Last Admin: 06/05/17 07:46 Dose: 40 mg Ondansetron HCl (Zofran) 4 mg IVP Q6H PRN PRN Reason: Nausea &/or vomiting Polyethylene Glycol (Miralax) 17 gm PO DAILY [facility] Last Admin: 06/05/17 09:05 Dose: 17 gm Prednisone (Deltasone 20 Mg) 40 mg PO WB [facility] Sodium Chloride (Iv Flush) 10 - 80 ml IVF PRN PRN PRN Reason: Flushing Last Admin: 06/05/17 11:42 Dose: 20 ml Sodium Chloride (Deep Sea Nasal Moisturizing [place]) 1 spray EA NOSTRIL PRN PRN PRN Reason: Congestion Last Admin: 05/19/17 16:37 Dose: 1 spray Sodium Chloride (Normal Saline) 500 ml IV PRN PRN Last Admin: 05/25/17 21:52 Dose: 500 ml Ticagrelor (Brilinta) 90 mg PO Q12H [facility] Last Admin: 06/05/17 09:02 Dose: 90 mg - Urinary Catheter Management Urethral Cath placed during this visit: yes Insertion date: 05/21/17 Results 06/09/17 05:02 06/09/17 05:02 CBC 06/04/17 Range/Units 04:42 WBC 12.1 H (4.5-11.0) T/MM3 RBC 3.64 L (4.50-5.90) M/MM3 Hgb 10.8 L (13.5-17.5) GM/DL Hct 34.6 L (41-53) % Plt Count 82 L (130-400) T/MM3 Neut # (Auto) Not performed Lymph # (Auto) Not performed [place] # (Auto) Not performed Eos # (Auto) Not performed Baso # (Auto) Not performed Comprehensive Metabolic Panel 06/04/17 Range/Units 04:42 Sodium 141 (134-144) MEQ/L Potassium 4.2 (3.6-5) MEQ/L Chloride 102 (98-107) MEQ/L Carbon Dioxide 34 H (22-30) MEQ/L BUN 42.0 H (9-20) MG/DL Creatinine 0.7 L (0.8-1.5) MG/DL Glucose 76 (75-110) MG/DL Calcium 8.6 (8.4-10.2) MG/DL Intake and Output 06/04/17 06/04/17 06/04/17 06:59 14:59 22:59 Intake Total 360 / 360 Output Total 347 / 347 575 / 575 Balance -347 / -347 -215 / -215 Intake: Oral 360 / 360 Output: Urine Amount (Catheter) 347 / 347 575 / 575 Other: Urine Appearance Clear Clear Urine Color Light Sofya Light Sofya Stool Color Brown Stool Consistency Formed Size of Bowel Movement Copious # Bowel Movements 1 Weight 283 lb 8.231 oz Patient Weight 06/05/17 06:59 Weight 283 lb 8.231 oz Assessment and Plan - Assessment and Plan (1) NSTEMI (non-ST elevated myocardial infarction) Status: Acute (2) Chest pain Status: Acute (3) Community acquired pneumonia Status: Acute (4) Acute and chronic respiratory failure with hypercapnia Status: Acute (5) Atherosclerotic heart disease of [place] coronary artery without angina pectoris Status: Chronic (6) Essential (primary) hypertension Status: Chronic (7) Type 2 diabetes mellitus without complications Status: Chronic (8) Obesity (BMI 30-39.9) Status: Chronic (9) ANGELLA (obstructive sleep apnea) Status: Chronic - Assessment and Plan 05/21/17 Reportedly had severe chest pain, was johnson and diaphoretic as well as tachypneic followed by decreased LOC. - HR 140s, sinus tach vs. A flutter - Given Adenosine 6mg IVP, followed by 12mg X2 without slowing HR. - Sedation given and attempted DCCV which was unsuccessful. - Following 2nd dose of Metoprolol 5mg IV heart rate slowed enough to confirm it is Sinus tachycardia. - Repeat EKG obtained, started on Heparin drip. - Trend Troponin - 2D echo - CTA for emboli/ dissection 05/22/17 NSTEMI: - Troponin: 1) 0.015, 2) 1.500, 3) 3.090, 4) 2.100 - EKG: SR, anterolateral ischemia V3-V6, inferior ischemia II/aVf - Left heart cath when more stable - Continue Heparin drip. HTN: Catapress TTS 1 patch while NPO - Hydralazine prn as ordered - Labetalol prn, hold HR <65 05/23/17 BP improving - EKG now please 05/24/17 Stop Heparin drip, get HIT panel Spoke with pharmacy, start Angiomax at 0.15mg/kg/hr (21.6mg/hr) until HIT panel resulted. Continues to have ST depression on Telemetry and EKG. Add Amlodipine 10mg per OG tube for better BP control 05/27/17 - Plan left heart cath with possible PCI in the am - Stop Angiomax drip - Give Lovenox 1mg/kg SQ tonight - Watch platelets closely 05/29/17 He had a left heart cath yesterday with successful primary stents of LAD using a 2.75 x 18 and another 2.75 x 18 drug-eluting Resolute [place] stents. - Aspirin 81mg daily, Brilinta 90mg BID for dual antiplatelet therapy - Change Simvastatin to Atorvastatin 80mg at HS - Continue to Hold Metformin - Change Atenolol 50mg daily to 25mg BID - Decrease IV Lasix to daily and K+ to daily as BUN is rising and is post cath. 05/30/17 BP remains variable. Consider changing Catapres to an oral agent tomorrow Thank you for allowing us to participate in the care of this patient, we will follow along with you. 05/31/17 Increase Lisinopril to 20mg daily, give additional 10mg now - Leave Catapres as ordered for now 06/03/17 Continues to improve, BP well controlled, Hgb stable. no change in cardiac plan for now 06/04/17 Seen in CCU, expect transfer to surgical unit. Will plan further cardiac intervention after fully recovers from this hospitalization. Hospital Course Summary Disclaimer: The visit summary below is not to be considered part of the above Progress Note. Hospital Course: 05/17/17 Admission Admit to observation status under the care of Dr. Lopez. Sepsis work up initiated in ED. Patient meeting SIRS criteria based on tachycardia, tachypnea and reported fevers at home without obvious source. Initial lactate was 1.4 with repeat lactate decreased to 0.9. Blood cultures pending. WBC stable at 5.0. CXR revealed left basilar scarring without focal pneumonia. Respiratory panel was negative. Patient was given DuoNeb treatments and Solu-Medrol 125mg IV in ED. Will continue respiratory care with DuoNeb treatments QID and Q6H PRN as well as Solu -Medrol 125mg IV Q6H. History of diabetes with A1c on 04/17/17 at 6.4%. Continue home medications and monitor blood sugars closely given treatment with steroids. Sliding scale insulin as indicated for hyperglycemia. Patient was placed on BiPAP in ED with improvement. Continue BiPAP as indicated. Ativan as needed for anxiety and agitation while on BiPAP. Will monitor closely on telemetry with continuous pulse oximetry. Oxygen as needed to maintain SAO2 between 90-95%, weaning as able to baseline of 5L. SCDs for DVT prophylaxis. Given sudden onset of dyspnea, will obtain CT angio chest for further evaluation of PE - results pending. NS at 100cc/hr for hydration given decreased oral intake as on BiPAP. Monitor daily weight closely for signs of fluid overload. Recheck labs in AM to monitor blood counts, electrolytes and renal function. Patient wishes to maintain FULL CODE status. Upon discharge, patient's care will be returned to his PCP, Dr. Odom. 05/18/17 Don reports that his breathing is a little better today and is he is more alert. New cough with sputum production. 1 of the 2 blood cultures obtained on admission is POSITIVE for Streptococcus. Night telehospitalist was notified and Rocephin 2g IV Q24 hours was initiated for antimicrobial coverage. Given new cough, will try and obtain a sputum culture. Mucinex for mucolytic effect. Ricola for cough. Continue respiratory care including nebulized treatments. Continue to encourage BiPAP as indicated and supplemental oxygen to maintain SAO2 between 90 -95%. Wean oxygen to baseline of 5L as able. Given sudden onset of dyspnea, CT angio chest was obtained and revealed no PE but did note 2.2cm left lower lobe pulmonary nodule raising concern for primary lung malignancy and recommended further evaluation. Will discuss consideration of pulmonary consult for further evaluation. Continue Solu-Medrol 125mg IV Q6 hours. Anticipate initiation of tapering in near future. Blood sugars remain elevated, most likely steroid effect, ranging from 160's-> 200. Continue sliding scale insulin. Given recent CT with contrast, will hold metformin and restart 05/19/17. Continue NS at 75cc/hr for hydration. Monitor urinary output and daily weight closely for signs of fluid over load. Oral intake is good. Consider discontinuation of fluids this afternoon. Ativan as needed for anxiety and agitation while on BiPAP. Troponins continue to trend up slowing - 0.015, 0.017, 0.029, 0.045 and 0.048 this morning. Will recheck troponin at 1030 and continue to monitor closely on telemetry. Patient denies chest pain. SCDs for DVT prophylaxis. Recheck labs in AM to monitor blood counts, electrolytes and renal function. Discussed at length with patient and family the importance of smoking cessation. He admits to wanting to stop smoking and inquired about initiation of Chantix. Continue Wellbutrin for smoking cessation. With BC positive and starting IV antibiotics, will change admission status to inpatient. Anticipate greater than 2 midnights of care needed. 05/19/17 Continue with Rocephin for antimicrobial coverage. With lungs still very tight and congested, will continue with Solu-Medrol 125mg IV q 6 hours. Continue Neb treatments and acapella. Encourage use of BiPAP as much as able to help his chronic hypercapnea. Stressed with about the importance of him not smoking. She understand. Will consult with Dr Ashby for pulm evaluation. Will discontinue IVF. May restart metformin this evening. Sugars with elevation secondary to steroids. Did give Diamox 500mg x1 this am for fluid motivation and to help minimize contraction alkalosis. PT/OT to evaluate and initiate treatment tomorrow for his significant pulmonary debility. 05/20 Continue with Rocephin for antimicrobial coverage. One blood culture was positive with streptococcus Viridans, Repeat BC were drawn this morning. Scheduled breathing tx, IV solu-medrol, as well as oxygen and Bipap Appreciate Dr Ashby consultation. Likely require bronchoscopy for biopsy of lung mass. Continue to monitor BGM remain elevated. Metformin was resumed as well as sliding scale insulin. Encourage PT/OT for strengthening 05/21 Resp failure --> ABG shows resp acidosis and he was placed on BiPAP with improvement in color. Repeat ABG shows pH 7.12, pCO2 106, pO2 185. CXR ordered. BG 230. Chest pain --> EKG shows ST changes and widened QRS, poss a-flutter; troponin pending. Dr. Govea consulted. He's had 2 NTG but remains very hypertensive with SBP 220s. Pt failed to respond to adenosine, and subseqently was cardioverted with conversion to sinus tach. Rapid response activated and Dr. Ramírez was at bedside x20 min. Transferred to CCU, where pt was met by Dr. Govea for evaluation. Continue treatment for resp status including steroids and Rocephin. 05/22 Patient remains on a ventilator requiring continuous sedation. Oxygenation borderline on 40% FiO2-oxygen flow increased to 60% by pulmonary earlier today. Continue triple antibiotics (cefepime, Levaquin, vancomycin) pending sputum culture due to extensive pneumonia on CT/chest x-ray yesterday-not present on initial films. Peak troponin 3.09 with diffuse T-wave changes; discussed with Dr. Govea and will require cardiac catheterization in the future. Continue heparin drip. Blood pressure is uncontrolled-clonidine patch initiated earlier, IV hydralazine added as needed for systolic pressures above 180. OG placed-resume statin, SSRI, atenolol, and aspirin. Assess gastric residuals today-anticipate beginning tube feedings tomorrow. Adequate urine output, continue to monitor. Blood sugars remain elevated, off metformin at present. Increase basal insulin. 05/23 Patient remains on a ventilator requiring continuous sedation. Continue triple antibiotics (cefepime, Levaquin, vancomycin); suspect aspiration pneumonia-sputum culture normal charly. Extensive infiltrates on CT chest. Repeat chest x-ray in a.m. Fluid balance positive-roughly 5 L over several days, weight up-diuresis today. Potassium supplemented IV earlier today. Peak troponin 3.09 with diffuse T-wave changes; discussed with Dr. Govea and will require cardiac catheterization in the future. Continue heparin drip. Blood pressure remains elevated but improved from yesterday with addition of clonidine patch and resumption of atenolol per OG. IV hydralazine available as needed for systolic pressures above 180. OG placed 05/22-low volume gastric output overnight and tolerating medications per OG. Will initiate tube feedings with low glycemic formula at 20 mL per hour overnight. Nutrition consult. Blood sugars remain elevated, off metformin at present and on steroids. Increase basal insulin to 40 units anticipating further increase in blood sugar with initiation of tube feedings. 05/24 Remains ventilator dependent. Steroids decreased. Vancomycin discontinued, continue Levaquin and cefepime for probable aspiration pneumonia and Streptococcus viridans positive blood culture. Continue diuresis, blood pressures elevated-atenolol increased and lisinopril initiated to improve control. Tolerating tube feedings at low-volume, converted pulmonary formula with goal of 80 mL per hour. Platelet count dropping, heparin discontinued and bivalirudin initiated. 05/25 Tolerating spontaneous breathing trial, steroids decreased. Continues to require continuous sedation. Lisinopril increased to 20 mg to improve blood pressure control. Platelet count down to 100K; HIT Ab pending. Fevers overnight without evidence source, leukocytosis/left shift resolved improved. Lines to be cultured. 05/26 FiO2 titrated to 40%; diuresing well-continue same. Spontaneous breathing trial planned for the morning with possible extubation at that time. Cardiac status stable, no further tachyarrhythmias. Trend to improved blood pressures. Cardiac catheterization planned in the future. Remains on bivalirudin. Platelet count 86K today, HIT Ab pending. Tube feedings at goal, blood sugars significantly elevated-NovoLog scheduled every 6 hours and when necessary. Chest x-ray improved, remains on Levaquin and cefepime for probable aspiration pneumonia. Blood cultures drawn yesterday negative thus far. 05/27 Extubated this afternoon, OG discontinued in conjunction with extubation. CPAP initiated for respiratory support. Speech therapy, PT, OT consultations tomorrow. Anticipate significant reduction in fluid volume off sedating medications and tube feedings--> Lasix dose decreased to twice daily administration. Platelet count stabilizing, HIT Ab negative. Intermittent fever, remains on antibiotics for possible aspiration pneumonia. Repeat blood cultures negative. 05/29 Extubated 05/27 Placed on CPAP with home equipment. Baseline 5L Currently tolerating NC, oxygen support as needed to maintain sats and mentation , pulm consulted and following CXR-stable Leukocytosis-likely 2/2 steroid effect, PCT negative, no fever x48 hours Cefepime and Levaquin currently. Vanc discontinued 05/24. Likely d/c abx today. Will consult ID for abx recs Failed speech therapy Continue tube feeds and meds via Dobhoff Monitor fluid status-hold evening dose of lasix Peak troponin 3.09 on 05/21/17 with diffuse T-wave changes; heart cath 05/28-now on ASA and Bivalirudin Monitor platelet count-currently WNL Monitor BP, adjust medications as needed Monitor glucose and continue insulin as ordered Discussed with nursing staff, and infectious disease 05/30 Extubated 05/27, continue Bipap/NC as per pulm Weaning steroids CXR-improving Leukocytosis Cefepime, Levaquin, Vanc discontinued Continue Tamiflu Failed speech therapy, continue to re-eval Continue tube feeds and meds via Dobhoff, feeds at 40ml/hr, goal of 80ml/hr Discontinue lasix, give 1L NS and re-eval fluid status Continue ASA and Bivalirudin per cardiology 05/31 Failed speech therapy, continue to re-eval Tube feedings and medications per Dobbhoff, goal 80 mL per hour tube feeding. Adjust insulin for hyperglycemia. 06/01 describes increased confusion/irritability-haloperidol initiated as needed. Converting to prednisone per Dobbhoff in a.m.; blood gas with mild hypoxia-FiO2 increased. Continue nutritional support per Dobbhoff; insulins again adjusted for persistent hyperglycemia. Chest pain described overnight, EKG unchanged. 06/02 Complaints of chest pain/dyspnea again this morning-resolved with position change. Intermittent confusion, haloperidol given twice overnight. Persistent hyperglycemia, scheduled short acting insulin adjusted further. Solu-Medrol discontinued, prednisone initiated per Dobbhoff this morning. Lactulose administered per Dobbhoff for ongoing constipation; MiraLAX added with recommendation the patient take it orally. Patient and family advised he will require rehabilitation before discharge home can be entertained. <Francis Govea - Last Filed: 06/13/17 12:44> Exam Vital signs: Temperature 96.4 F L 06/11/17 08:00 Pulse Rate 86 06/11/17 08:00 Respiratory Rate 22 06/11/17 13:45 Blood Pressure 95/53 06/11/17 08:00 Pulse Oximetry 96 06/11/17 14:02 Inpatient Medications: Discontinued Medications Generic Name Dose Route Start Last Admin Trade Name Freq PRN Reason Stop Dose Admin Acetaminophen 325 - 650 mg 05/17/17 10:08 06/01/17 21:51 Tylenol PO 650 mg Q5H PRN Administration Discomfort Acetaminophen 650 mg 05/21/17 15:10 Tylenol Supp [place] Q5H PRN Pain Acetaminophen 325 - 650 mg 05/28/17 09:24 Tylenol PO Q5H PRN Pain Hydrocodone Bitart/Acetaminophen 1 tab 05/17/17 21:00 05/31/17 08:42 [place] 7.5/325 PO 1 tab BID KSENIA Administration Hydrocodone Bitart/Acetaminophen 1 tab 05/17/17 10:14 06/06/17 05:37 [place] 7.5/325 PO 1 tab Q6H PRN Administration Pain Hydrocodone Bitart/Acetaminophen 1 - 2 tab 05/28/17 09:24 [place] 5/325 PO Q5H PRN Pain Acetazolamide 500 mg 05/19/17 10:51 05/19/17 11:25 Diamox PO 05/19/17 10:52 500 mg O ONE Administration Adenosine 12 mg 05/21/17 09:17 05/21/17 08:50 Adenocard IVP 05/21/17 09:18 12 mg O ONE Administration Adenosine 6 mg 05/21/17 09:18 05/21/17 09:23 Adenocard IVP 05/21/17 09:19 6 mg O ONE Administration Al Hydroxide/Mg Hydroxide 30 ml 05/28/17 09:24 Maalox Plus PO Q3H PRN Indigestion Albuterol/Ipratropium 6 ml 05/17/17 05:19 05/17/17 05:33 Duoneb AEROSOL 05/17/17 05:20 6 ml O ONE Administration Albuterol/Ipratropium 3 ml 05/17/17 11:00 05/21/17 18:22 Duoneb AEROSOL Not Given RTQID KSENIA Albuterol/Ipratropium 3 ml 05/17/17 10:11 Duoneb AEROSOL RTQID PRN Albuterol/Ipratropium 3 ml 05/21/17 15:15 06/11/17 13:45 Duoneb AEROSOL 3 ml Q4H KSENIA Administration Amlodipine Besylate 10 mg 05/24/17 13:46 06/04/17 09:44 Norvasc PO 10 mg DAILY KSENIA Administration Amlodipine Besylate 5 mg 06/04/17 11:41 06/06/17 10:38 Norvasc PO 5 mg DAILY KSENIA Administration Aspirin 81 mg 05/18/17 09:00 05/23/17 08:26 Asa PO Not Given DAILY [facility] Aspirin 81 mg 05/22/17 16:00 05/31/17 08:42 Asa GT 81 mg DAILY [facility] Administration Aspirin 81 mg 05/28/17 09:24 06/11/17 09:35 Ecotrin PO 81 mg DAILY [facility] Administration Atenolol 25 mg 05/18/17 09:00 05/24/17 08:58 Tenormin PO 25 mg DAILY KSENIA Administration Atenolol 50 mg 05/25/17 09:00 05/28/17 12:30 Tenormin PO Not Given DAILY [facility] Atenolol 25 mg 05/24/17 09:40 05/24/17 11:09 Tenormin PO 05/24/17 09:41 25 mg O ONE Administration Atenolol 25 mg 05/29/17 09:00 06/11/17 09:47 Tenormin PO Not Given BID [facility] Atorvastatin Calcium 80 mg 05/28/17 21:00 06/10/17 20:32 Lipitor PO 80 mg HS KSENIA Administration Atropine Sulfate 0.5 mg 05/28/17 09:24 Atropine IVP Q5M PRN Bradycardia Benzocaine 1 lozenge 05/20/17 18:54 Cepacol Sore Throat Lozenge MM Q2HR PRN Sore throat Bisacodyl 10 mg 05/27/17 15:11 Dulcolax RECTALLY DAILY PRN Constipation Bisacodyl 5 - 10 mg 05/28/17 09:24 Dulcolax PO DAILY PRN Constipation Bisacodyl 10 mg 05/28/17 09:24 Dulcolax RECTALLY DAILY PRN Constipation Bivalirudin 250 mg 05/24/17 14:15 Angiomax IV NOW KSENIA Budesonide 0.5 mg 05/17/17 19:00 06/11/17 09:02 Pulmicort Inhalation AEROSOL 0.5 mg RTBID KSENIA Administration Bupropion HCl 150 mg 05/17/17 21:00 06/11/17 09:34 Wellbutrin Sr PO 150 mg BID KSENIA Administration Citalopram Hydrobromide 40 mg 05/18/17 09:00 06/11/17 09:34 Celexa PO 40 mg DAILY KSENIA Administration Clonidine HCl 0.1 mg 05/22/17 09:00 06/05/17 09:05 Catapres-Tts 1 TD Not Given Q7D@0900 KSENIA Clonidine HCl 1 removal 05/29/17 08:59 06/05/17 09:05 Catapres Patch Removal TD 1 removal Q7D KSENIA Administration Enoxaparin Sodium 1 each 05/18/17 10:47 05/18/17 12:54 Pharmacy Consult - Lovenox 05/18/17 10:48 1 each O ONE Administration Enoxaparin Sodium 50 mg 05/18/17 11:45 05/20/17 08:37 Lovenox SQ 50 mg DAILY KSENIA Administration Enoxaparin Sodium 142 mg 05/27/17 17:00 05/28/17 09:34 Lovenox SQ 142 mg DAILY KSENIA Administration Furosemide 20 mg 05/18/17 09:00 05/20/17 08:37 Lasix PO 20 mg DAILY KSENIA Administration Furosemide 40 mg 05/21/17 09:37 05/21/17 09:45 Lasix IVP 05/21/17 09:38 40 mg ONCE ONE Administration Furosemide 20 mg 05/23/17 21:00 05/24/17 08:59 Lasix IVP 20 mg Q12HR KSENIA Administration Furosemide 20 mg 05/24/17 17:00 05/27/17 09:31 Lasix IVP 20 mg Q8HR KSENIA Administration Furosemide 20 mg 05/27/17 21:00 05/29/17 08:09 Lasix IVP 20 mg Q12H KSENIA Administration Furosemide 20 mg 05/29/17 09:00 Lasix IVP DAILY KSENIA Gabapentin 300 mg 05/17/17 15:00 06/11/17 09:31 Neurontin PO 300 mg TID KSENIA Administration Glucose 37.5 gm 05/17/17 10:12 Glutose 15 PO PRN PRN Hypoglycemia Guaifenesin 1,200 mg 05/18/17 09:00 05/29/17 08:14 Mucinex La PO Not Given BID KSENIA Guaifenesin 400 mg 05/29/17 12:00 06/11/17 05:51 Robitussin Liq PO Not Given Q6H KSENIA Haloperidol 1 mg 06/03/17 20:30 Haldol PO Q4H PRN Haloperidol Decanoate 1 mg 06/01/17 17:43 06/02/17 17:00 Haldol Liquid GT 1 mg Q4H PRN Administration Heparin Sodium (Beef Lung) 5,000 unit 05/21/17 09:23 05/21/17 10:07 Heparin Bolus IVP 05/21/17 09:24 5,000 unit O ONE Administration Heparin Sodium (Beef Lung) 3,000 unit 05/21/17 17:45 05/21/17 17:53 Heparin Bolus IVP 05/21/17 17:46 3,000 unit O ONE Administration Heparin Sodium (Beef Lung) 3,000 unit 05/22/17 03:37 05/22/17 03:46 Heparin Bolus IVP 05/22/17 03:38 3,000 unit O ONE Administration Heparin Sodium (Porcine) 1 each 05/21/17 09:08 Pharmacy Consult - Heparin MC 05/21/17 09:09 ONE TIME ONE Hydralazine HCl 5 mg 05/22/17 08:47 05/22/17 10:09 Apresoline IVP 5 mg Q6H PRN Administration Hypertension Hydralazine HCl 10 mg 05/22/17 15:01 05/28/17 06:06 Apresoline IVP 10 mg Q4H PRN Administration Hypertension Sodium Chloride 1,000 mls @ 999.9 mls/hr 05/17/17 05:44 05/17/17 11:20 Normal Saline IV 05/17/17 06:43 Infused .Q1H ONE Infusion Sodium Chloride 1,000 mls @ 75 mls/hr 05/17/17 10:08 05/19/17 11:19 Normal Saline IV Infused .[id number] KSENIA Infusion Ceftriaxone Sodium 2 gm/ 100 mls @ 200 mls/hr 05/18/17 01:15 05/18/17 01:50 Sodium Chloride IV Infused Q24H KSENIA Infusion Ceftriaxone Sodium 2 gm/ 50 mls @ 100 mls/hr 05/18/17 21:00 05/20/17 21:55 Sodium Chloride IV Infused Q24H KSENIA Infusion Heparin Sodium (Porcine) 20,000 unit in 500 mls @ 44 mls/hr 05/21/17 09:30 13:17 Heparin Drip IV Infused .[id number] KSENIA Titration Protocol Dexmedetomidine HCl 200 mcg/ 52 mls @ 6.87 mls/hr 05/21/17 09:52 05/21/17 20: 00 Sodium Chloride IV 05/21/17 20:29 0 mcg/kg/hr .Q7H35M PRN 0 mls/hr Protocol Titration 0.2 MCG/KG/HR Propofol 1,000 mg in 100 mls @ 3.969 mls/hr 05/21/17 10:39 05/21/17 14:28 Diprivan IV 0 mcg/kg/min .Q24H PRN 0 mls/hr Protocol Infusion 5 MCG/KG/MIN Fentanyl 1,000 mcg/ Sodium 100 mls @ 0 mls/hr 05/21/17 13:02 05/27/17 14:45 Chloride IV Infused .Q0M PRN Titration Protocol Per Protocol Sodium Chloride 250 mls @ 999.9 mls/hr 05/21/17 13:15 05/21/17 14:28 Normal Saline IV 05/21/17 13:29 Infused .Q15M KSENIA Infusion Cefepime HCl 1 gm/ Sodium 50 mls @ 100 mls/hr 05/21/17 15:30 05/29/17 10:46 Chloride IV Infused Q6H KSENIA Infusion Levofloxacin/Dextrose 750 mg in 150 mls @ 100 mls/hr 05/21/17 16:00 05/28/17 17:15 Levaquin Premix IV Infused Q24H KSENIA Infusion Vancomycin HCl 1,500 mg/ 500 mls @ 250 mls/hr 05/21/17 18:00 05/24/17 12:15 Sodium Chloride IV Infused Q8H KSENIA Infusion Dexmedetomidine HCl 1,000 mcg/ 260 mls @ 6.87 mls/hr 05/21/17 20:30 05/27/17 14:45 Sodium Chloride IV 05/27/17 14:45 Infused .Q24H PRN Titration Protocol 0.2 MCG/KG/HR Potassium Chloride 10 meq in 100 mls @ 100 mls/hr 05/23/17 09:45 05/23/17 17: 34 Potassium Chloride Premix IV 05/23/17 13:44 Infused Q1H KSENIA Infusion Heparin Sodium (Porcine) 20,000 unit in 500 mls @ 45 mls/hr 05/23/17 16:00 06:16 Heparin Drip IV Not Given .Q11H7M KSENIA Protocol Potassium Chloride 10 meq in 100 mls @ 100 mls/hr 05/24/17 09:45 05/24/17 15: 56 Potassium Chloride Premix IV 05/24/17 13:44 Not Given Q1H KSENIA Potassium Chloride 10 meq/ 105 mls @ 105 mls/hr 05/24/17 11:45 05/24/17 17:00 Sodium Chloride IV 05/24/17 15:44 Infused Q1H KSENIA Infusion Bivalirudin 250 mg/ Sodium 500 mls @ 43.2 mls/hr 05/24/17 15:15 05/27/17 17: 34 Chloride IV Not Given .[id number] KSENIA Sodium Chloride 1,000 mls @ 75 mls/hr 05/28/17 07:45 05/28/17 14:00 Normal Saline IV Infused .[id number] KSENIA Infusion Sodium Chloride 1,000 mls @ 500 mls/hr 05/30/17 10:14 05/30/17 10:41 Normal Saline IV 05/30/17 12:13 500 mls/hr .Q2H ONE Administration Sodium Chloride 1,000 mls @ 60 mls/hr 05/30/17 17:00 05/31/17 06:00 Normal Saline IV 05/31/17 09:39 60 mls/hr .[id number] KSENIA Infusion Insulin Aspart 1 - 5 unit 05/17/17 10:12 05/18/17 06:06 Novolog SQ 2 unit SS PRN Administration Hyperglycemia Protocol Insulin Aspart 2 - 8 unit 05/18/17 08:22 05/21/17 07:30 Novolog SQ 3 unit SS PRN Administration Hyperglycemia Protocol Insulin Aspart 15 unit 05/20/17 10:32 05/20/17 10:36 Novolog SQ 05/20/17 10:33 15 unit ONE TIME ONE Administration Insulin Aspart 2 - 14 unit 05/21/17 11:43 06/10/17 20:31 Novolog SQ 10 unit SS PRN Administration Hyperglycemia Protocol Insulin Aspart 10 unit 05/26/17 12:00 05/26/17 13:54 Novolog SQ Not Given Q6H KSENIA Insulin Aspart 10 unit 05/26/17 15:00 05/27/17 21:06 Novolog SQ Not Given 0300,0900,1500,2100 KSENIA Insulin Aspart 10 unit 05/28/17 15:00 Novolog SQ Q6HR KSENIA Insulin Aspart 10 unit 05/28/17 18:00 05/31/17 06:11 Novolog SQ 10 unit Q6H KSENIA Administration Insulin Aspart 12 unit 05/31/17 08:41 06/03/17 19:14 Novolog SQ Not Given Q6H KSENIA Insulin Aspart 15 unit 06/01/17 15:00 06/02/17 10:37 Novolog SQ Not Given Q6H KSENIA Insulin Aspart 18 unit 06/02/17 09:58 06/03/17 17:37 Novolog SQ 18 unit Q6H KSENIA Administration Insulin Glargine 10 unit 05/21/17 21:00 05/21/17 20:14 Lantus SQ 10 unit HS KSENIA Administration Insulin Glargine 20 unit 05/22/17 21:00 05/22/17 20:14 Lantus SQ 20 unit HS KSENIA Administration Insulin Glargine 40 unit 05/23/17 21:00 05/30/17 21:34 Lantus SQ 40 unit HS KSENIA Administration Insulin Glargine 50 unit 05/31/17 08:41 05/31/17 21:06 Lantus SQ 50 unit HS KSENIA Administration Insulin Glargine 60 unit 06/01/17 21:00 06/02/17 20:23 Lantus SQ 60 unit HS KSENIA Administration Insulin Glargine 30 unit 06/03/17 21:00 06/10/17 20:31 Lantus SQ 30 unit HS KSENIA Administration Labetalol HCl 10 mg 05/21/17 20:40 05/22/17 06:05 Trandate IVP 10 mg Q4H PRN Administration INCREASED blood pressure Lactulose 20 gm 06/02/17 10:00 06/02/17 11:09 Lactulose PO 06/02/17 10:01 20 gm O ONE Administration Lidocaine HCl 15 ml 06/08/17 18:06 Xylocaine Viscous 2% PO Q6HR PRN Lidocaine HCl 5 ml 06/11/17 09:38 Magic Mouthwash (Lido/Maalox/Carafate) PO Q4H PRN Lisinopril 10 mg 05/24/17 16:15 05/31/17 08:42 Prinivil PO 10 mg DAILY [facility] Administration Lisinopril 10 mg 05/31/17 15:18 05/31/17 15:43 Prinivil PO 05/31/17 15:19 10 mg O ONE Administration Lisinopril 20 mg 06/01/17 09:00 06/04/17 09:45 Prinivil PO 20 mg DAILY [facility] Administration Lisinopril 10 mg 06/05/17 09:00 06/10/17 08:14 Prinivil PO Not Given DAILY [facility] Lisinopril 2.5 mg 06/11/17 09:00 06/11/17 09:48 Prinivil PO Not Given DAILY [facility] Lorazepam 1 mg 05/17/17 06:16 05/17/17 06:56 Ativan PO 05/17/17 06:17 1 mg O ONE Administration Lorazepam 0.5 mg 05/17/17 10:13 05/24/17 15:55 Ativan Inj IVP 0.5 mg Q6H PRN Administration Lorazepam 1 mg 05/24/17 19:46 05/31/17 01:43 Ativan Inj IVP 1 mg Q2H PRN Administration Agitation/Air hunger/Pain Lorazepam 0.5 - 1 mg 05/28/17 09:24 06/10/17 22:22 Ativan PO 0.5 mg Q4H PRN Administration Anxiety Lorazepam 0.5 - 1 mg 05/28/17 09:24 Ativan Inj IVP Q4H PRN Anxiety Magnesium Hydroxide 30 ml 05/26/17 12:41 05/26/17 13:53 Mom GT 05/26/17 12:42 30 ml O ONE Administration Magnesium Hydroxide 30 ml 05/28/17 09:24 Mom PO DAILY PRN Constipation Menthol 1 lozenge 05/18/17 08:19 Ricola Sf MM PRN PRN Cough Metformin HCl 500 mg 05/17/17 17:30 05/18/17 10:00 Glucophage PO Not Given BIDWM KSENIA Metformin HCl 500 mg 05/19/17 09:00 05/21/17 10:52 Glucophage PO Not Given BIDWM KSENIA Metformin HCl 500 mg 06/10/17 17:30 06/11/17 09:33 Glucophage PO 500 mg BIDWM KSENIA Administration Methylprednisolone Sodium Succinate 125 mg 05/17/17 06:26 05/17/17 06:53 Solu-Medrol IM 05/17/17 06:27 125 mg O ONE Administration Methylprednisolone Sodium Succinate 125 mg 05/17/17 15:00 05/20/17 08:37 Solu-Medrol IVP 125 mg Q6HR KSENIA Administration Methylprednisolone Sodium Succinate 80 mg 05/20/17 15:00 05/24/17 08:57 Solu-Medrol IVP 80 mg Q6HR KSENIA Administration Methylprednisolone Sodium Succinate 80 mg 05/24/17 17:00 05/26/17 08:23 Solu-Medrol IVP 80 mg Q8HR KSENIA Administration Methylprednisolone Sodium Succinate 80 mg 05/26/17 21:00 05/29/17 08:15 Solu-Medrol IVP 80 mg Q12HR KSENIA Administration Methylprednisolone Sodium Succinate 60 mg 05/29/17 21:00 06/01/17 21:57 Solu-Medrol IVP 06/02/17 04:00 60 mg Q12HR KSENIA Administration Metoclopramide HCl 5 mg 05/23/17 17:30 05/30/17 10:42 Reglan GT 5 mg Q6H KSENIA Administration Metoclopramide HCl 5 - 10 mg 05/28/17 09:24 Reglan IVP Q6H PRN Nausea &/or vomiting Metoclopramide HCl 5 mg 05/30/17 14:00 06/03/17 23:15 Reglan GT Not Given Q6H KSENIA Metoprolol Tartrate 15 mg 05/21/17 09:18 05/21/17 09:05 Lopressor IVP 05/21/17 09:19 15 mg ONCE ONE Administration Metoprolol Tartrate 5 mg 05/28/17 10:01 05/28/17 10:00 Lopressor IVP 05/28/17 10:02 5 mg ONCE ONE Administration Morphine Sulfate 1 - 2 mg 05/17/17 10:08 05/24/17 17:56 Morphine Sulfate Inj IVP 2 mg Q2H PRN Administration Pain Morphine Sulfate 2 - 4 mg 05/28/17 09:24 05/28/17 10:17 Morphine Sulfate Inj IVP 05/29/17 09:23 4 mg Q2H PRN Administration Pain Morphine Sulfate 2 - 4 mg 05/28/17 09:24 06/02/17 08:19 Morphine Sulfate Inj IVP 2 mg Q5M PRN Administration Angina Neomycin/Polymyxin/Bacitracin 1 applic 06/06/17 13:00 06/06/17 13:10 Neosporin TP 06/06/17 13:01 1 applic O ONE Administration Nitroglycerin 0.4 mg 05/17/17 10:14 05/21/17 08:35 Nitrostat SL 0.4 mg Q5MIN3 PRN Administration CP Nitroglycerin 0.4 mg 05/28/17 09:24 Nitrostat SL Q5M PRN Angina Nitroglycerin 0.4 mg 05/31/17 23:49 06/02/17 08:11 Nitrostat SL 0.4 mg Q5M PRN Administration Chest pain --Pom--(Itraconazole 200 mg 05/17/17 21:00 05/29/17 09:39 [Itraconazole] 200 PO Not Given Mg) BID KSENIA Nystatin 5 ml 06/03/17 21:00 06/11/17 09:48 Mycostatin PO 06/13/17 20:59 Not Given QID KSENIA Omeprazole 40 mg 05/18/17 06:30 06/11/17 05:52 Prilosec PO Not Given ACB KSENIA Ondansetron HCl 4 mg 05/17/17 10:08 05/19/17 02:45 Zofran IVP 4 mg Q6H PRN Administration Nausea &/or vomiting Ondansetron HCl 4 mg 05/28/17 09:24 Zofran IVP Q6H PRN Nausea &/or vomiting Oseltamivir Phosphate 75 mg 05/29/17 21:00 06/03/17 09:27 Tamiflu 06/03/17 09:01 75 mg BID KSENIA Administration Pantoprazole Sodium 40 mg 05/22/17 09:00 05/31/17 08:44 Protonix Iv IVP 40 mg DAILY KSENIA Administration Pharmacy Consult 1 each 05/17/17 10:32 Pharmacy Consult - Fall Risk XX 05/17/17 10:33 ONE TIME ONE Pharmacy Consult 1 each 05/27/17 10:17 Pharmacy Consult - Fall Risk XX 05/27/17 10:18 ONE TIME ONE Pharmacy Consult 1 each 06/05/17 10:03 Pharmacy Consult - Fall Risk XX 06/05/17 10:04 ONE TIME ONE Polyethylene Glycol 17 gm 06/03/17 09:00 06/11/17 09:49 Miralax PO Not Given DAILY KSENIA Potassium Chloride 40 meq 05/24/17 18:10 05/26/17 06:13 Kcl Oral Liq 20 Meq/15 Ml PO Not Given BIDWM KSENIA Potassium Chloride 40 meq 05/25/17 13:00 05/26/17 08:22 Kcl Oral Liq 20 Meq/15 Ml PO 40 meq QID KSENIA Administration Potassium Chloride 40 meq 05/26/17 12:00 05/27/17 12:04 Kcl Oral Liq 20 Meq/15 Ml PO 40 meq TIDWM KSENIA Administration Potassium Chloride 40 meq 05/27/17 17:30 05/29/17 07:59 Kcl Oral Liq 20 Meq/15 Ml PO 40 meq BIDWM KSENIA Administration Potassium Chloride 40 meq 05/29/17 09:00 05/30/17 08:42 Kcl Oral Liq 20 Meq/15 Ml PO 40 meq DAILY KSENIA Administration Prednisone 60 mg 06/02/17 08:00 06/03/17 09:20 Deltasone 20 Mg PO 60 mg WB KSENIA Administration Prednisone 50 mg 06/03/17 11:15 06/05/17 09:02 Deltasone 50 Mg PO 50 mg WB KSENIA Administration Prednisone 40 mg 06/06/17 08:00 06/10/17 08:20 Deltasone 20 Mg PO 40 mg WB KSENIA Administration Prednisone 30 mg 06/11/17 08:00 06/11/17 09:34 Deltasone 20 Mg PO 30 mg WB KSENIA Administration Promethazine HCl 12.5 - 25 mg 05/28/17 09:24 Phenergan Inj IVP Q6HR PRN Nausea &/or vomiting Simvastatin 20 mg 05/17/17 21:00 05/27/17 20:36 Zocor PO Not Given HS KSENIA Sodium Chloride 10 - 80 ml 05/17/17 05:20 06/05/17 11:42 Iv Flush IVF 20 ml PRN PRN Administration Flushing Sodium Chloride 1 spray 05/19/17 11:42 05/19/17 16:37 Deep Sea Nasal Moisturizing [place] EA NOSTRIL 1 spray PRN PRN Administration Congestion Sodium Chloride 500 ml 05/25/17 21:40 05/25/17 21:52 Normal Saline IV 500 ml PRN PRN Administration Throat Lozenges 3 spray 06/08/17 22:18 06/08/17 23:11 Chloraseptic [place] PO 3 spray Q2H PRN Administration Ticagrelor 90 mg 05/28/17 21:01 06/11/17 09:34 Brilinta PO 90 mg Q12H KSENIA Administration Vancomycin HCl 1 each 05/21/17 15:19 05/21/17 15:53 Pharmacy Consult - Vancomycin MC 05/21/17 15:20 1 each O ONE Administration - Urinary Catheter Management Urethral Cath placed during this visit: no Results 06/09/17 05:02 06/09/17 05:02 Intake and Output 06/11/17 06/12/17 06/12/17 22:59 06:59 14:59 Output Total 350 / 350 Balance -350 / -350 Output: Urine 350 / 350 Other: Urine Appearance Clear Urine Color Dark Yellow Urine Odor Strong Assessment and Plan - Assessment and Plan (1) Community acquired pneumonia Status: Acute (2) Acute and chronic respiratory failure with hypercapnia Status: Acute (3) Chest pain Status: Acute (4) Atherosclerotic heart disease of [place] coronary artery without angina pectoris Status: Chronic (5) Essential (primary) hypertension Status: Chronic (6) Type 2 diabetes mellitus without complications Status: Chronic (7) Obesity (BMI 30-39.9) Status: Chronic (8) ANGELLA (obstructive sleep apnea) Status: Chronic (9) NSTEMI (non-ST elevated myocardial infarction) Status: Acute - Attestation Attestation Narrative: 06/12/17 07:54 Recommendation After examining the patient I agree with the above assessment. I am involved in the formulation of the patient's plan of care. Hospital Course Summary Disclaimer: The visit summary below is not to be considered part of the above Progress Note.
--- NOTE | 2017-06-04 16:47 | Pulmonology Progress Note ---
Subjective Principal diagnosis: SOB, respiratory failure Interval history: had a BM feeling much better today using bipap at night, O2 by nc during the day Exam Vital signs: Temperature 96.7 F L 06/04/17 09:00 Pulse Rate 87 06/04/17 15:00 Respiratory Rate 30 H 06/04/17 15:01 Blood Pressure 102/59 06/04/17 12:00 Pulse Oximetry 93 06/04/17 15:01 Inpatient Medications: Generic Name Dose Route Start Last Admin Trade Name Freq PRN Reason Stop Dose Admin Acetaminophen 325 - 650 mg 05/17/17 10:08 06/01/17 21:51 Tylenol PO 650 mg Q5H PRN Administration Discomfort Hydrocodone Bitart/Acetaminophen 1 tab 05/17/17 10:14 06/02/17 17:00 [place] 7.5/325 PO 1 tab Q6H PRN Administration Pain Al Hydroxide/Mg Hydroxide 30 ml 05/28/17 09:24 Maalox Plus PO Q3H PRN Indigestion Albuterol/Ipratropium 3 ml 05/17/17 10:11 Duoneb AEROSOL RTQID PRN Albuterol/Ipratropium 3 ml 05/21/17 15:15 06/04/17 15:00 Duoneb AEROSOL 3 ml Q4H KSENIA Administration Amlodipine Besylate 5 mg 06/04/17 11:41 Norvasc PO DAILY KSENIA Aspirin 81 mg 05/28/17 09:24 06/04/17 08:44 Ecotrin PO 81 mg DAILY KSENIA Administration Atenolol 25 mg 05/29/17 09:00 06/04/17 08:45 Tenormin PO 25 mg BID KSENIA Administration Atorvastatin Calcium 80 mg 05/28/17 21:00 06/03/17 22:48 Lipitor PO 80 mg HS KSENIA Administration Bisacodyl 10 mg 05/27/17 15:11 Dulcolax RECTALLY DAILY PRN Constipation Bisacodyl 5 - 10 mg 05/28/17 09:24 Dulcolax PO DAILY PRN Constipation Budesonide 0.5 mg 05/17/17 19:00 06/04/17 08:08 Pulmicort Inhalation AEROSOL 0.5 mg RTBID KSENIA Administration Bupropion HCl 150 mg 05/17/17 21:00 06/04/17 08:45 Wellbutrin Sr PO 150 mg BID KSENIA Administration Citalopram Hydrobromide 40 mg 05/18/17 09:00 06/04/17 08:45 Celexa PO 40 mg DAILY KSENIA Administration Clonidine HCl 0.1 mg 05/22/17 09:00 05/29/17 08:01 Catapres-Tts 1 TD 0.1 mg Q7D@0900 KSENIA Administration Clonidine HCl 1 removal 05/29/17 08:59 05/29/17 08:13 Catapres Patch Removal TD 1 removal Q7D KSENIA Administration Gabapentin 300 mg 05/17/17 15:00 06/04/17 15:39 Neurontin PO 300 mg TID KSENIA Administration Glucose 37.5 gm 05/17/17 10:12 Glutose 15 PO PRN PRN Hypoglycemia Guaifenesin 400 mg 05/29/17 12:00 06/04/17 15:39 Robitussin Liq PO 400 mg Q6H KSENIA Administration Haloperidol 1 mg 06/03/17 20:30 Haldol PO Q4H PRN Insulin Aspart 2 - 14 unit 05/21/17 11:43 06/04/17 15:45 Novolog SQ 4 unit SS PRN Administration Hyperglycemia Protocol Insulin Glargine 30 unit 06/03/17 21:00 06/03/17 22:58 Lantus SQ 30 unit HS KSENIA Administration Lisinopril 20 mg 06/01/17 09:00 06/04/17 09:45 Prinivil PO 20 mg DAILY KSENIA Administration Lisinopril 10 mg 06/05/17 09:00 Prinivil PO DAILY [facility] Lorazepam 0.5 - 1 mg 05/28/17 09:24 06/02/17 13:52 Ativan PO 0.5 mg Q4H PRN Administration Anxiety Magnesium Hydroxide 30 ml 05/28/17 09:24 Mom PO DAILY PRN Constipation Nitroglycerin 0.4 mg 05/31/17 23:49 06/02/17 08:11 Nitrostat SL 0.4 mg Q5M PRN Administration Chest pain Nystatin 5 ml 06/03/17 21:00 06/04/17 15:39 Mycostatin PO 06/13/17 20:59 5 ml QID KSENIA Administration Omeprazole 40 mg 05/18/17 06:30 06/04/17 08:44 Prilosec PO 40 mg ACB KSENIA Administration Ondansetron HCl 4 mg 05/28/17 09:24 Zofran IVP Q6H PRN Nausea &/or vomiting Polyethylene Glycol 17 gm 06/03/17 09:00 06/04/17 08:47 Miralax PO 17 gm DAILY KSENIA Administration Prednisone 50 mg 06/03/17 11:15 06/04/17 08:44 Deltasone 50 Mg PO 50 mg WB KSENIA Administration Sodium Chloride 10 - 80 ml 05/17/17 05:20 06/02/17 05:32 Iv Flush IVF 10 ml PRN PRN Administration Flushing Sodium Chloride 1 spray 05/19/17 11:42 05/19/17 16:37 Deep Sea Nasal Moisturizing Lott EA NOSTRIL 1 spray PRN PRN Administration Congestion Sodium Chloride 500 ml 05/25/17 21:40 05/25/17 21:52 Normal Saline IV 500 ml PRN PRN Administration Ticagrelor 90 mg 05/28/17 21:01 06/04/17 08:45 Brilinta PO 90 mg Q12H KSENIA Administration Discontinued Medications Generic Name Dose Route Start Last Admin Trade Name Freq PRN Reason Stop Dose Admin Acetaminophen 650 mg 05/21/17 15:10 Tylenol Supp MO Q5H PRN Pain Acetaminophen 325 - 650 mg 05/28/17 09:24 Tylenol PO Q5H PRN Pain Hydrocodone Bitart/Acetaminophen 1 tab 05/17/17 21:00 05/31/17 08:42 [place] 7.5/325 PO 1 tab BID KESNIA Administration Hydrocodone Bitart/Acetaminophen 1 - 2 tab 05/28/17 09:24 [place] 5/325 PO Q5H PRN Pain Acetazolamide 500 mg 05/19/17 10:51 05/19/17 11:25 Diamox PO 05/19/17 10:52 500 mg O ONE Administration Adenosine 12 mg 05/21/17 09:17 05/21/17 08:50 Adenocard IVP 05/21/17 09:18 12 mg O ONE Administration Adenosine 6 mg 05/21/17 09:18 05/21/17 09:23 Adenocard IVP 05/21/17 09:19 6 mg O ONE Administration Albuterol/Ipratropium 6 ml 05/17/17 05:19 05/17/17 05:33 Duoneb AEROSOL 05/17/17 05:20 6 ml O ONE Administration Albuterol/Ipratropium 3 ml 05/17/17 11:00 05/21/17 18:22 Duoneb AEROSOL Not Given RTQID [facility] Amlodipine Besylate 10 mg 05/24/17 13:46 06/04/17 09:44 Norvasc PO 10 mg DAILY [facility] Administration Aspirin 81 mg 05/18/17 09:00 05/23/17 08:26 Asa PO Not Given DAILY [facility] Aspirin 81 mg 05/22/17 16:00 05/31/17 08:42 Asa GT 81 mg DAILY [facility] Administration Atenolol 25 mg 05/18/17 09:00 05/24/17 08:58 Tenormin PO 25 mg DAILY [facility] Administration Atenolol 50 mg 05/25/17 09:00 05/28/17 12:30 Tenormin PO Not Given DAILY [facility] Atenolol 25 mg 05/24/17 09:40 05/24/17 11:09 Tenormin PO 05/24/17 09:41 25 mg O ONE Administration Atropine Sulfate 0.5 mg 05/28/17 09:24 Atropine IVP Q5M PRN Bradycardia Benzocaine 1 lozenge 05/20/17 18:54 Cepacol Sore Throat Lozenge MM Q2HR PRN Sore throat Bisacodyl 10 mg 05/28/17 09:24 Dulcolax RECTALLY DAILY PRN Constipation Bivalirudin 250 mg 05/24/17 14:15 Angiomax IV NOW [facility] Enoxaparin Sodium 1 each 05/18/17 10:47 05/18/17 12:54 Pharmacy Consult - Lovenox 05/18/17 10:48 1 each O ONE Administration Enoxaparin Sodium 50 mg 05/18/17 11:45 05/20/17 08:37 Lovenox SQ 50 mg DAILY [facility] Administration Enoxaparin Sodium 142 mg 05/27/17 17:00 05/28/17 09:34 Lovenox SQ 142 mg DAILY [facility] Administration Furosemide 20 mg 05/18/17 09:00 05/20/17 08:37 Lasix PO 20 mg DAILY [facility] Administration Furosemide 40 mg 05/21/17 09:37 05/21/17 09:45 Lasix IVP 05/21/17 09:38 40 mg ONCE ONE Administration Furosemide 20 mg 05/23/17 21:00 05/24/17 08:59 Lasix IVP 20 mg Q12HR KSENIA Administration Furosemide 20 mg 05/24/17 17:00 05/27/17 09:31 Lasix IVP 20 mg Q8HR KSENIA Administration Furosemide 20 mg 05/27/17 21:00 05/29/17 08:09 Lasix IVP 20 mg Q12H KSENIA Administration Furosemide 20 mg 05/29/17 09:00 Lasix IVP DAILY KSENIA Guaifenesin 1,200 mg 05/18/17 09:00 05/29/17 08:14 Mucinex La PO Not Given BID KSENIA Haloperidol Decanoate 1 mg 06/01/17 17:43 06/02/17 17:00 Haldol Liquid GT 1 mg Q4H PRN Administration Heparin Sodium (Beef Lung) 5,000 unit 05/21/17 09:23 05/21/17 10:07 Heparin Bolus IVP 05/21/17 09:24 5,000 unit O ONE Administration Heparin Sodium (Beef Lung) 3,000 unit 05/21/17 17:45 05/21/17 17:53 Heparin Bolus IVP 05/21/17 17:46 3,000 unit O ONE Administration Heparin Sodium (Beef Lung) 3,000 unit 05/22/17 03:37 05/22/17 03:46 Heparin Bolus IVP 05/22/17 03:38 3,000 unit O ONE Administration Heparin Sodium (Porcine) 1 each 05/21/17 09:08 Pharmacy Consult - Heparin 05/21/17 09:09 ONE TIME ONE Hydralazine HCl 5 mg 05/22/17 08:47 05/22/17 10:09 Apresoline IVP 5 mg Q6H PRN Administration Hypertension Hydralazine HCl 10 mg 05/22/17 15:01 05/28/17 06:06 Apresoline IVP 10 mg Q4H PRN Administration Hypertension Sodium Chloride 1,000 mls @ 999.9 mls/hr 05/17/17 05:44 05/17/17 11:20 Normal Saline IV 05/17/17 06:43 Infused .Q1H ONE Infusion Sodium Chloride 1,000 mls @ 75 mls/hr 05/17/17 10:08 05/19/17 11:19 Normal Saline IV Infused .[id number] KSENIA Infusion Ceftriaxone Sodium 2 gm/ 100 mls @ 200 mls/hr 05/18/17 01:15 05/18/17 01:50 Sodium Chloride IV Infused Q24H KSENIA Infusion Ceftriaxone Sodium 2 gm/ 50 mls @ 100 mls/hr 05/18/17 21:00 05/20/17 21:55 Sodium Chloride IV Infused Q24H KSENIA Infusion Heparin Sodium (Porcine) 20,000 unit in 500 mls @ 44 mls/hr 05/21/17 09:30 13:17 Heparin Drip IV Infused .[id number] KSENIA Titration Protocol Dexmedetomidine HCl 200 mcg/ 52 mls @ 6.87 mls/hr 05/21/17 09:52 05/21/17 20: 00 Sodium Chloride IV 05/21/17 20:29 0 mcg/kg/hr .Q7H35M PRN 0 mls/hr Protocol Titration 0.2 MCG/KG/HR Propofol 1,000 mg in 100 mls @ 3.969 mls/hr 05/21/17 10:39 05/21/17 14:28 Diprivan IV 0 mcg/kg/min .Q24H PRN 0 mls/hr Protocol Infusion 5 MCG/KG/MIN Fentanyl 1,000 mcg/ Sodium 100 mls @ 0 mls/hr 05/21/17 13:02 05/27/17 14:45 Chloride IV Infused .Q0M PRN Titration Protocol Per Protocol Sodium Chloride 250 mls @ 999.9 mls/hr 05/21/17 13:15 05/21/17 14:28 Normal Saline IV 05/21/17 13:29 Infused .Q15M KSENIA Infusion Cefepime HCl 1 gm/ Sodium 50 mls @ 100 mls/hr 05/21/17 15:30 05/29/17 10:46 Chloride IV Infused Q6H KSENIA Infusion Levofloxacin/Dextrose 750 mg in 150 mls @ 100 mls/hr 05/21/17 16:00 05/28/17 17:15 Levaquin Premix IV Infused Q24H KSENIA Infusion Vancomycin HCl 1,500 mg/ 500 mls @ 250 mls/hr 05/21/17 18:00 05/24/17 12:15 Sodium Chloride IV Infused Q8H KSENIA Infusion Dexmedetomidine HCl 1,000 mcg/ 260 mls @ 6.87 mls/hr 05/21/17 20:30 05/27/17 14:45 Sodium Chloride IV 05/27/17 14:45 Infused .Q24H PRN Titration Protocol 0.2 MCG/KG/HR Potassium Chloride 10 meq in 100 mls @ 100 mls/hr 05/23/17 09:45 05/23/17 17: 34 Potassium Chloride Premix IV 05/23/17 13:44 Infused Q1H KSENIA Infusion Heparin Sodium (Porcine) 20,000 unit in 500 mls @ 45 mls/hr 05/23/17 16:00 06:16 Heparin Drip IV Not Given .Q11H7M KSENIA Protocol Potassium Chloride 10 meq in 100 mls @ 100 mls/hr 05/24/17 09:45 05/24/17 15: 56 Potassium Chloride Premix IV 05/24/17 13:44 Not Given Q1H KSENIA Potassium Chloride 10 meq/ 105 mls @ 105 mls/hr 05/24/17 11:45 05/24/17 17:00 Sodium Chloride IV 05/24/17 15:44 Infused Q1H KSENIA Infusion Bivalirudin 250 mg/ Sodium 500 mls @ 43.2 mls/hr 05/24/17 15:15 05/27/17 17: 34 Chloride IV Not Given .[id number] KSENIA Sodium Chloride 1,000 mls @ 75 mls/hr 05/28/17 07:45 05/28/17 14:00 Normal Saline IV Infused .[id number] KSENIA Infusion Sodium Chloride 1,000 mls @ 500 mls/hr 05/30/17 10:14 05/30/17 10:41 Normal Saline IV 05/30/17 12:13 500 mls/hr .Q2H ONE Administration Sodium Chloride 1,000 mls @ 60 mls/hr 05/30/17 17:00 05/31/17 06:00 Normal Saline IV 05/31/17 09:39 60 mls/hr .[id number] KSENIA Infusion Insulin Aspart 1 - 5 unit 05/17/17 10:12 05/18/17 06:06 Novolog SQ 2 unit SS PRN Administration Hyperglycemia Protocol Insulin Aspart 2 - 8 unit 05/18/17 08:22 05/21/17 07:30 Novolog SQ 3 unit SS PRN Administration Hyperglycemia Protocol Insulin Aspart 15 unit 05/20/17 10:32 02/12/18 10:36 Novolog SQ 05/20/17 10:33 15 unit ONE TIME ONE Administration Insulin Aspart 10 unit 05/26/17 12:00 05/26/17 13:54 Novolog SQ Not Given Q6H KSENIA Insulin Aspart 10 unit 05/26/17 15:00 05/27/17 21:06 Novolog SQ Not Given 0300,0900,1500,2100 KSENIA Insulin Aspart 10 unit 05/28/17 15:00 Novolog SQ Q6HR KSENIA Insulin Aspart 10 unit 05/28/17 18:00 05/31/17 06:11 Novolog SQ 10 unit Q6H KSENIA Administration Insulin Aspart 12 unit 05/31/17 08:41 06/03/17 19:14 Novolog SQ Not Given Q6H KSENIA Insulin Aspart 15 unit 06/01/17 15:00 06/02/17 10:37 Novolog SQ Not Given Q6H KSENIA Insulin Aspart 18 unit 06/02/17 09:58 06/03/17 17:37 Novolog SQ 18 unit Q6H KSENIA Administration Insulin Glargine 10 unit 05/21/17 21:00 05/21/17 20:14 Lantus SQ 10 unit HS KSENIA Administration Insulin Glargine 20 unit 05/22/17 21:00 05/22/17 20:14 Lantus SQ 20 unit HS KSENIA Administration Insulin Glargine 40 unit 05/23/17 21:00 05/30/17 21:34 Lantus SQ 40 unit HS [facility] Administration Insulin Glargine 50 unit 05/31/17 08:41 05/31/17 21:06 Lantus SQ 50 unit HS [facility] Administration Insulin Glargine 60 unit 06/01/17 21:00 06/02/17 20:23 Lantus SQ 60 unit HS [facility] Administration Labetalol HCl 10 mg 05/21/17 20:40 05/22/17 06:05 Trandate IVP 10 mg Q4H PRN Administration INCREASED blood pressure Lactulose 20 gm 06/02/17 10:00 06/02/17 11:09 Lactulose PO 06/02/17 10:01 20 gm O ONE Administration Lisinopril 10 mg 05/24/17 16:15 05/31/17 08:42 Prinivil PO 10 mg DAILY KSENIA Administration Lisinopril 10 mg 05/31/17 15:18 05/31/17 15:43 Prinivil PO 05/31/17 15:19 10 mg O ONE Administration Lorazepam 1 mg 05/17/17 06:16 05/17/17 06:56 Ativan PO 05/17/17 06:17 1 mg O ONE Administration Lorazepam 0.5 mg 05/17/17 10:13 05/24/17 15:55 Ativan Inj IVP 0.5 mg Q6H PRN Administration Lorazepam 1 mg 05/24/17 19:46 05/31/17 01:43 Ativan Inj IVP 1 mg Q2H PRN Administration Agitation/Air hunger/Pain Lorazepam 0.5 - 1 mg 05/28/17 09:24 Ativan Inj IVP Q4H PRN Anxiety Magnesium Hydroxide 30 ml 05/26/17 12:41 05/26/17 13:53 Mom GT 05/26/17 12:42 30 ml O ONE Administration Menthol 1 lozenge 05/18/17 08:19 Ricola Sf MM PRN PRN Cough Metformin HCl 500 mg 05/17/17 17:30 05/18/17 10:00 Glucophage PO Not Given BIDWM KSENIA Metformin HCl 500 mg 05/19/17 09:00 05/21/17 10:52 Glucophage PO Not Given BIDWM KSENIA Methylprednisolone Sodium Succinate 125 mg 05/17/17 06:26 05/17/17 06:53 Solu-Medrol IM 05/17/17 06:27 125 mg O ONE Administration Methylprednisolone Sodium Succinate 125 mg 05/17/17 15:00 05/20/17 08:37 Solu-Medrol IVP 125 mg Q6HR KSENIA Administration Methylprednisolone Sodium Succinate 80 mg 05/20/17 15:00 05/24/17 08:57 Solu-Medrol IVP 80 mg Q6HR KSENIA Administration Methylprednisolone Sodium Succinate 80 mg 05/24/17 17:00 05/26/17 08:23 Solu-Medrol IVP 80 mg Q8HR KSENIA Administration Methylprednisolone Sodium Succinate 80 mg 05/26/17 21:00 05/29/17 08:15 Solu-Medrol IVP 80 mg Q12HR KSENIA Administration Methylprednisolone Sodium Succinate 60 mg 05/29/17 21:00 06/01/17 21:57 Solu-Medrol IVP 06/02/17 04:00 60 mg Q12HR KSENIA Administration Metoclopramide HCl 5 mg 05/23/17 17:30 05/30/17 10:42 Reglan GT 5 mg Q6H KSENIA Administration Metoclopramide HCl 5 - 10 mg 05/28/17 09:24 Reglan IVP Q6H PRN Nausea &/or vomiting Metoclopramide HCl 5 mg 05/30/17 14:00 06/03/17 23:15 Reglan GT Not Given Q6H KSENIA Metoprolol Tartrate 15 mg 05/21/17 09:18 05/21/17 09:05 Lopressor IVP 05/21/17 09:19 15 mg ONCE ONE Administration Metoprolol Tartrate 5 mg 05/28/17 10:01 05/28/17 10:00 Lopressor IVP 05/28/17 10:02 5 mg ONCE ONE Administration Morphine Sulfate 1 - 2 mg 05/17/17 10:08 05/24/17 17:56 Morphine Sulfate Inj IVP 2 mg Q2H PRN Administration Pain Morphine Sulfate 2 - 4 mg 05/28/17 09:24 05/28/17 10:17 Morphine Sulfate Inj IVP 05/29/17 09:23 4 mg Q2H PRN Administration Pain Morphine Sulfate 2 - 4 mg 05/28/17 09:24 06/02/17 08:19 Morphine Sulfate Inj IVP 2 mg Q5M PRN Administration Angina Nitroglycerin 0.4 mg 05/17/17 10:14 05/21/17 08:35 Nitrostat SL 0.4 mg Q5MIN3 PRN Administration CP Nitroglycerin 0.4 mg 05/28/17 09:24 Nitrostat SL Q5M PRN Angina --Pom--(Itraconazole 200 mg 05/17/17 21:00 05/29/17 09:39 [Itraconazole] 200 PO Not Given Mg) BID [facility] Ondansetron HCl 4 mg 05/17/17 10:08 05/19/17 02:45 Zofran IVP 4 mg Q6H PRN Administration Nausea &/or vomiting Oseltamivir Phosphate 75 mg 05/29/17 21:00 06/03/17 09:27 Tamiflu 06/03/17 09:01 75 mg BID KSENIA Administration Pantoprazole Sodium 40 mg 05/22/17 09:00 05/31/17 08:44 Protonix Iv IVP 40 mg DAILY KSENIA Administration Pharmacy Consult 1 each 05/17/17 10:32 Pharmacy Consult - Fall Risk XX 05/17/17 10:33 ONE TIME ONE Pharmacy Consult 1 each 05/27/17 10:17 Pharmacy Consult - Fall Risk XX 05/27/17 10:18 ONE TIME ONE Potassium Chloride 40 meq 05/24/17 18:10 05/26/17 06:13 Kcl Oral Liq 20 Meq/15 Ml PO Not Given BIDWM KSENIA Potassium Chloride 40 meq 05/25/17 13:00 05/26/17 08:22 Kcl Oral Liq 20 Meq/15 Ml PO 40 meq QID KSENIA Administration Potassium Chloride 40 meq 05/26/17 12:00 05/27/17 12:04 Kcl Oral Liq 20 Meq/15 Ml PO 40 meq TIDWM KSENIA Administration Potassium Chloride 40 meq 05/27/17 17:30 05/29/17 07:59 Kcl Oral Liq 20 Meq/15 Ml PO 40 meq BIDWM KSENIA Administration Potassium Chloride 40 meq 05/29/17 09:00 05/30/17 08:42 Kcl Oral Liq 20 Meq/15 Ml PO 40 meq DAILY KSENIA Administration Prednisone 60 mg 06/02/17 08:00 06/03/17 09:20 Deltasone 20 Mg PO 60 mg WB KSENIA Administration Promethazine HCl 12.5 - 25 mg 05/28/17 09:24 Phenergan Inj IVP Q6HR PRN Nausea &/or vomiting Simvastatin 20 mg 05/17/17 21:00 05/27/17 20:36 Zocor PO Not Given HS KSENIA Vancomycin HCl 1 each 05/21/17 15:19 05/21/17 15:53 Pharmacy Consult - Vancomycin MC 05/21/17 15:20 1 each O ONE Administration - Constitutional no acute distress - Routine HEENT Exam Head: Present: normocephalic, atraumatic Eye: Absent: conjunctival icterus - Routine Neck Exam Present: supple - Routine Respiratory Exam Present: decreased breath sounds, prolonged expiratory phase - Routine Cardiovascular Exam Present: RRR - Routine Extremities Exam Present: edema. Absent: cyanosis, clubbing - Routine Skin Exam Present: intact. Absent: rash - Urinary Catheter Management Urethral Cath placed during this visit: yes Insertion date: 05/21/17 Results - Laboratory Findings Laboratory: Laboratory Results - last 48 hr 06/02/17 06/02/17 06/03/17 18:09 20:07 00:14 WBC RBC Hgb Hct MCV MCH MCHC RDW Std Deviation Plt Count MPV Immature Gran % (Auto) Neut % (Auto) Lymph % (Auto) Dukes % (Auto) Eos % (Auto) Baso % (Auto) Neut # (Auto) Lymph # (Auto) Dukes # (Auto) Eos # (Auto) Baso # (Auto) Abs Immat Gran (auto) Neutrophils % (Manual) Band Neutrophils % Lymphocytes % (Manual) Monocytes % (Manual) Metamyelocytes % Neutrophils # (Manual) Band Neutrophils # Lymphocytes # (Manual) Monocytes # (Manual) Metamyelocytes # RBC Morph Comment ABG pH ABG pCO2 ABG pO2 ABG HCO3 ABG Total CO2 ABG O2 Saturation ABG Base Excess O2 Delivery Method FiO2 % Turbidity Sodium Potassium Chloride Carbon Dioxide Anion Gap BUN Creatinine GFR Calculation BUN/Creatinine Ratio Glucose Glucometer 330 315 276 Calculated Osmolality Calcium Phosphorus Magnesium Icterus Index Albumin Specimen Hemolysis 06/03/17 06/03/17 06/03/17 04:16 04:16 05:46 WBC 13.4 H RBC 3.91 L Hgb 11.7 L Hct 37.2 L MCV 95.1 MCH 29.9 MCHC 31.5 RDW Std Deviation 44.6 Plt Count 93 L MPV TNP Immature Gran % (Auto) Not performed Neut % (Auto) Not performed Lymph % (Auto) Not performed Dukes % (Auto) Not performed Eos % (Auto) Not performed Baso % (Auto) Not performed Neut # (Auto) Not performed Lymph # (Auto) Not performed Dukes # (Auto) Not performed Eos # (Auto) Not performed Baso # (Auto) Not performed Abs Immat Gran (auto) Not performed Neutrophils % (Manual) 80.0 H Band Neutrophils % 2.0 Lymphocytes % (Manual) 13.0 L Monocytes % (Manual) 5.0 Metamyelocytes % Neutrophils # (Manual) 10.7 H Band Neutrophils # 0.3 Lymphocytes # (Manual) 1.7 Monocytes # (Manual) 0.7 Metamyelocytes # RBC Morph Comment Normal ABG pH ABG pCO2 ABG pO2 ABG HCO3 ABG Total CO2 ABG O2 Saturation ABG Base Excess O2 Delivery Method FiO2 % Turbidity < 20 Sodium 139 Potassium 4.2 Chloride 101 Carbon Dioxide 31 H Anion Gap 7 BUN 35.0 H Creatinine 0.6 L GFR Calculation 137 BUN/Creatinine Ratio 58 H Glucose 198 H Glucometer 196 Calculated Osmolality 282 H Calcium 8.5 Phosphorus 3.3 Magnesium 2.2 Icterus Index < 2 Albumin 2.7 L Specimen Hemolysis < 15 06/03/17 06/03/17 06/03/17 11:30 16:49 18:16 WBC RBC Hgb Hct MCV MCH MCHC RDW Std Deviation Plt Count MPV Immature Gran % (Auto) Neut % (Auto) Lymph % (Auto) Dukes % (Auto) Eos % (Auto) Baso % (Auto) Neut # (Auto) Lymph # (Auto) Dukes # (Auto) Eos # (Auto) Baso # (Auto) Abs Immat Gran (auto) Neutrophils % (Manual) Band Neutrophils % Lymphocytes % (Manual) Monocytes % (Manual) Metamyelocytes % Neutrophils # (Manual) Band Neutrophils # Lymphocytes # (Manual) Monocytes # (Manual) Metamyelocytes # RBC Morph Comment ABG pH ABG pCO2 ABG pO2 ABG HCO3 ABG Total CO2 ABG O2 Saturation ABG Base Excess O2 Delivery Method FiO2 % Turbidity Sodium Potassium Chloride Carbon Dioxide Anion Gap BUN Creatinine GFR Calculation BUN/Creatinine Ratio Glucose Glucometer 89 185 216 Calculated Osmolality Calcium Phosphorus Magnesium Icterus Index Albumin Specimen Hemolysis 06/03/17 06/03/17 06/04/17 19:36 22:13 01:13 WBC RBC Hgb Hct MCV MCH MCHC RDW Std Deviation Plt Count MPV Immature Gran % (Auto) Neut % (Auto) Lymph % (Auto) Dukes % (Auto) Eos % (Auto) Baso % (Auto) Neut # (Auto) Lymph # (Auto) Dukes # (Auto) Eos # (Auto) Baso # (Auto) Abs Immat Gran (auto) Neutrophils % (Manual) Band Neutrophils % Lymphocytes % (Manual) Monocytes % (Manual) Metamyelocytes % Neutrophils # (Manual) Band Neutrophils # Lymphocytes # (Manual) Monocytes # (Manual) Metamyelocytes # RBC Morph Comment ABG pH ABG pCO2 ABG pO2 ABG HCO3 ABG Total CO2 ABG O2 Saturation ABG Base Excess O2 Delivery Method FiO2 % Turbidity Sodium Potassium Chloride Carbon Dioxide Anion Gap BUN Creatinine GFR Calculation BUN/Creatinine Ratio Glucose Glucometer 230 104 69 Calculated Osmolality Calcium Phosphorus Magnesium Icterus Index Albumin Specimen Hemolysis 06/04/17 06/04/17 06/04/17 02:07 04:10 04:42 WBC 12.1 H RBC 3.64 L Hgb 10.8 L Hct 34.6 L MCV 95.1 MCH 29.7 MCHC 31.2 RDW Std Deviation 44.3 Plt Count 82 L MPV TNP Immature Gran % (Auto) Not performed Neut % (Auto) Not performed Lymph % (Auto) Not performed Dukes % (Auto) Not performed Eos % (Auto) Not performed Baso % (Auto) Not performed Neut # (Auto) Not performed Lymph # (Auto) Not performed Dukes # (Auto) Not performed Eos # (Auto) Not performed Baso # (Auto) Not performed Abs Immat Gran (auto) Not performed Neutrophils % (Manual) 78.0 H Band Neutrophils % 2.0 Lymphocytes % (Manual) 13.0 L Monocytes % (Manual) 4.0 Metamyelocytes % 3.0 H Neutrophils # (Manual) 9.4 H Band Neutrophils # 0.2 Lymphocytes # (Manual) 1.6 Monocytes # (Manual) 0.5 Metamyelocytes # 0.4 RBC Morph Comment Normal ABG pH ABG pCO2 ABG pO2 ABG HCO3 ABG Total CO2 ABG O2 Saturation ABG Base Excess O2 Delivery Method FiO2 % Turbidity Sodium Potassium Chloride Carbon Dioxide Anion Gap BUN Creatinine GFR Calculation BUN/Creatinine Ratio Glucose Glucometer 78 84 Calculated Osmolality Calcium Phosphorus Magnesium Icterus Index Albumin Specimen Hemolysis 06/04/17 06/04/17 06/04/17 04:42 06:18 07:40 WBC RBC Hgb Hct MCV MCH MCHC RDW Std Deviation Plt Count MPV Immature Gran % (Auto) Neut % (Auto) Lymph % (Auto) Dukes % (Auto) Eos % (Auto) Baso % (Auto) Neut # (Auto) Lymph # (Auto) Dukes # (Auto) Eos # (Auto) Baso # (Auto) Abs Immat Gran (auto) Neutrophils % (Manual) Band Neutrophils % Lymphocytes % (Manual) Monocytes % (Manual) Metamyelocytes % Neutrophils # (Manual) Band Neutrophils # Lymphocytes # (Manual) Monocytes # (Manual) Metamyelocytes # RBC Morph Comment ABG pH 7.431 ABG pCO2 47 H ABG pO2 70 L ABG HCO3 31.0 H ABG Total CO2 33.0 H ABG O2 Saturation 94.0 L ABG Base Excess 6.0 H O2 Delivery Method Bpap, % FiO2 % 30 Turbidity < 20 Sodium 141 Potassium 4.2 Chloride 102 Carbon Dioxide 34 H Anion Gap 5 BUN 42.0 H Creatinine 0.7 L GFR Calculation 114 BUN/Creatinine Ratio 60 H Glucose 76 Glucometer 89 Calculated Osmolality 281 H Calcium 8.6 Phosphorus Magnesium Icterus Index < 2 Albumin Specimen Hemolysis < 15 06/04/17 06/04/17 06/04/17 08:41 11:36 12:36 WBC RBC Hgb Hct MCV MCH MCHC RDW Std Deviation Plt Count MPV Immature Gran % (Auto) Neut % (Auto) Lymph % (Auto) Dukes % (Auto) Eos % (Auto) Baso % (Auto) Neut # (Auto) Lymph # (Auto) Dukes # (Auto) Eos # (Auto) Baso # (Auto) Abs Immat Gran (auto) Neutrophils % (Manual) Band Neutrophils % Lymphocytes % (Manual) Monocytes % (Manual) Metamyelocytes % Neutrophils # (Manual) Band Neutrophils # Lymphocytes # (Manual) Monocytes # (Manual) Metamyelocytes # RBC Morph Comment ABG pH ABG pCO2 ABG pO2 ABG HCO3 ABG Total CO2 ABG O2 Saturation ABG Base Excess O2 Delivery Method FiO2 % Turbidity Sodium Potassium Chloride Carbon Dioxide Anion Gap BUN Creatinine GFR Calculation BUN/Creatinine Ratio Glucose Glucometer 85 118 141 Calculated Osmolality Calcium Phosphorus Magnesium Icterus Index Albumin Specimen Hemolysis 06/04/17 15:36 WBC RBC Hgb Hct MCV MCH MCHC RDW Std Deviation Plt Count MPV Immature Gran % (Auto) Neut % (Auto) Lymph % (Auto) Dukes % (Auto) Eos % (Auto) Baso % (Auto) Neut # (Auto) Lymph # (Auto) Dukes # (Auto) Eos # (Auto) Baso # (Auto) Abs Immat Gran (auto) Neutrophils % (Manual) Band Neutrophils % Lymphocytes % (Manual) Monocytes % (Manual) Metamyelocytes % Neutrophils # (Manual) Band Neutrophils # Lymphocytes # (Manual) Monocytes # (Manual) Metamyelocytes # RBC Morph Comment ABG pH ABG pCO2 ABG pO2 ABG HCO3 ABG Total CO2 ABG O2 Saturation ABG Base Excess O2 Delivery Method FiO2 % Turbidity Sodium Potassium Chloride Carbon Dioxide Anion Gap BUN Creatinine GFR Calculation BUN/Creatinine Ratio Glucose Glucometer 243 Calculated Osmolality Calcium Phosphorus Magnesium Icterus Index Albumin Specimen Hemolysis Assessment and Plan (1) Acute exacerbation of chronic obstructive airways disease Status: Acute Assessment and plan: continue neb albuterol and ipratropium. budesonide BID O2 to keep sat >90% wean prednisone to 30 mg daily. Current Visit: Yes (2) Acute and chronic respiratory failure with hypercapnia Status: Acute Assessment and plan: continue NIPPV/BIPAP at night for chronic hypercapnic failure. recommend use of home vent at home Current Visit: Yes (3) Pneumonia Status: Acute Current Visit: Yes - Assessment and Plan Acute on Chronic Hypoxic Hypercapnic Respiratory Failure LLL mass 2.2 cm - plan OP biopsy COPD exacerbation Influenza B Chest Pain/Wide complex tachycardia s/p cardioversion CAD s/p stent ANGELLA/OHS Morbid Obesity Thrombocytopenia - resolved Plan: Pt currently on O2 at 5L, otherwise using bipap 10/7, rate 16, Fio2 30%, qHs and prn. On a/a q4hr, pulmicort and prednisone, wean to 50, no wheezing or SOB noted at this time. S/P tamiflu for Influenza, still on brilanta for CAD s/p stent. No CP at this time, CV following. - Time Spent With Patient Total time spent is greater than 50% in coordination of care (as documented) at patient's floor/unit and/or counseling patient: less than 15 minutes (discussed case with at bedside)
[2017-06-04] MEDS: SALINE FLUSH 10ml SYRINGE IVF PRN (18:17)
[2017-06-04] MEDS: INSULIN GLARGINE 100unit/ml INJECTION SQ SCH (22:14)
[2017-06-04] MEDS: ATORVASTATIN 40 MG TABLET PO SCH (22:15)
[2017-06-05] MEDS: GUAIFENESIN 200mg/10ml ORAL LIQUID PO SCH ×5 (01:29→23:48)
[2017-06-05] MEDS: ALBUTEROL/IPRATROPIUM 2.5mg-0.5mg/3ml NEB AEROSOL SCH ×6 (04:33→23:01)
[2017-06-05] MEDS: BUDESONIDE INH.SOLN 0.5mg/2ml NEB AEROSOL SCH ×2 (07:31→19:24)
[2017-06-05] MEDS: OMEPRAZOLE 20 MG CAPSULE PO SCH (07:46)
[2017-06-05] MEDS: ATENOLOL 25 MG TABLET PO SCH ×2 (09:02→22:05)
[2017-06-05] MEDS: NYSTATIN 500,000 units/5 ml ORAL LIQUID PO SCH ×4 (09:02→22:05)
[2017-06-05] MEDS: BuPROPion SR 150mg (12HR) TABLET PO SCH ×2 (09:02→22:04)
[2017-06-05] MEDS: CITALOPRAM 40 MG TABLET PO SCH (09:02)
[2017-06-05] MEDS: GABAPENTIN 300 MG CAPSULE PO SCH ×3 (09:02→22:04)
[2017-06-05] MEDS: TICAGRELOR 90 MG TABLET PO SCH ×2 (09:02→22:06)
[2017-06-05] MEDS: ASPIRIN *EC* 81 MG TABLET PO SCH (09:02)
[2017-06-05] MEDS: POLYETHYL GLYCOL 3350 17gm PACKET PO SCH (09:05)
[2017-06-05] MEDS: CLONIDINE 0.1 MG/24 HR PATCH TD SCH (09:05)
[2017-06-05] MEDS: CLONIDINE PATCH REMOVAL TD SCH (09:05)
[2017-06-05] MEDS: LISINOPRIL 10 MG TABLET PO SCH (09:08)
[2017-06-05] MEDS: AMLODIPINE 5 MG TABLET PO SCH (09:09)
[2017-06-05] MEDS: INSULIN ASPART 100unit/ml INJECTION SQ PRN ×3 (09:44→22:14)
[2017-06-05] MEDS ORDERED: FALL RISK - PHARMACY CONSULT XX ONE (10:03)
[2017-06-05] MEDS: SALINE FLUSH 10ml SYRINGE IVF PRN (11:42)
--- NOTE | 2017-06-05 12:21 | Pulmonology Progress Note ---
Subjective Principal diagnosis: SOB, respiratory failure Interval history: Pt up in chair, states no SOB, cough or sputum noted. Using bipap at noc and O2 during the day. Exam Vital signs: Temperature 97.6 F 06/05/17 11:16 Pulse Rate 72 06/05/17 11:16 Respiratory Rate 18 06/05/17 11:16 Blood Pressure 100/57 06/05/17 11:16 Pulse Oximetry 97 06/05/17 11:16 Inpatient Medications: Generic Name Dose Route Start Last Admin Trade Name Freq PRN Reason Stop Dose Admin Acetaminophen 325 - 650 mg 05/17/17 10:08 06/01/17 21:51 Tylenol PO 650 mg Q5H PRN Administration Discomfort Hydrocodone Bitart/Acetaminophen 1 tab 05/17/17 10:14 06/02/17 17:00 Dike 7.5/325 PO 1 tab Q6H PRN Administration Pain Al Hydroxide/Mg Hydroxide 30 ml 05/28/17 09:24 Maalox Plus PO Q3H PRN Indigestion Albuterol/Ipratropium 3 ml 05/17/17 10:11 Duoneb AEROSOL RTQID PRN Albuterol/Ipratropium 3 ml 05/21/17 15:15 06/05/17 07:31 Duoneb AEROSOL 3 ml Q4H KSENIA Administration Amlodipine Besylate 5 mg 06/04/17 11:41 06/05/17 09:09 Norvasc PO 5 mg DAILY KSENIA Administration Aspirin 81 mg 05/28/17 09:24 06/05/17 09:02 Ecotrin PO 81 mg DAILY KSENIA Administration Atenolol 25 mg 05/29/17 09:00 06/05/17 09:02 Tenormin PO 25 mg BID KSENIA Administration Atorvastatin Calcium 80 mg 05/28/17 21:00 06/04/17 22:15 Lipitor PO 80 mg HS KSENIA Administration Bisacodyl 10 mg 05/27/17 15:11 Dulcolax RECTALLY DAILY PRN Constipation Bisacodyl 5 - 10 mg 05/28/17 09:24 Dulcolax PO DAILY PRN Constipation Budesonide 0.5 mg 05/17/17 19:00 06/05/17 07:31 Pulmicort Inhalation AEROSOL 0.5 mg RTBID KSENAI Administration Bupropion HCl 150 mg 05/17/17 21:00 06/05/17 09:02 Wellbutrin Sr PO 150 mg BID KSENIA Administration Citalopram Hydrobromide 40 mg 05/18/17 09:00 06/05/17 09:02 Celexa PO 40 mg DAILY KSENIA Administration Clonidine HCl 0.1 mg 05/22/17 09:00 06/05/17 09:05 Catapres-Tts 1 TD Not Given Q7D@0900 KSENIA Clonidine HCl 1 removal 05/29/17 08:59 06/05/17 09:05 Catapres Patch Removal TD 1 removal Q7D KSENIA Administration Gabapentin 300 mg 05/17/17 15:00 06/05/17 09:02 Neurontin PO 300 mg TID KSENIA Administration Glucose 37.5 gm 05/17/17 10:12 Glutose 15 PO PRN PRN Hypoglycemia Guaifenesin 400 mg 05/29/17 12:00 06/05/17 11:42 Robitussin Liq PO 400 mg Q6H KSENIA Administration Haloperidol 1 mg 06/03/17 20:30 Haldol PO Q4H PRN Insulin Aspart 2 - 14 unit 05/21/17 11:43 06/05/17 09:44 Novolog SQ 4 unit SS PRN Administration Hyperglycemia Protocol Insulin Glargine 30 unit 06/03/17 21:00 06/04/17 22:14 Lantus SQ 30 unit HS KSENIA Administration Lisinopril 10 mg 06/05/17 09:00 06/05/17 09:08 Prinivil PO 10 mg DAILY KSENIA Administration Lorazepam 0.5 - 1 mg 05/28/17 09:24 06/02/17 13:52 Ativan PO 0.5 mg Q4H PRN Administration Anxiety Magnesium Hydroxide 30 ml 05/28/17 09:24 Mom PO DAILY PRN Constipation Nitroglycerin 0.4 mg 05/31/17 23:49 06/02/17 08:11 Nitrostat SL 0.4 mg Q5M PRN Administration Chest pain Nystatin 5 ml 06/03/17 21:00 06/05/17 09:02 Mycostatin PO 06/13/17 20:59 5 ml QID KSENIA Administration Omeprazole 40 mg 05/18/17 06:30 06/05/17 07:46 Prilosec PO 40 mg ACB KSENIA Administration Ondansetron HCl 4 mg 05/28/17 09:24 Zofran IVP Q6H PRN Nausea &/or vomiting Polyethylene Glycol 17 gm 06/03/17 09:00 06/05/17 09:05 Miralax PO 17 gm DAILY KSENIA Administration Prednisone 50 mg 06/03/17 11:15 06/05/17 09:02 Deltasone 50 Mg PO 50 mg WB KSENIA Administration Sodium Chloride 10 - 80 ml 05/17/17 05:20 06/05/17 11:42 Iv Flush IVF 20 ml PRN PRN Administration Flushing Sodium Chloride 1 spray 05/19/17 11:42 05/19/17 16:37 [place] Nasal Moisturizing [place] NOSTRIL 1 spray PRN PRN Administration Congestion Sodium Chloride 500 ml 05/25/17 21:40 05/25/17 21:52 Normal Saline IV 500 ml PRN PRN Administration Ticagrelor 90 mg 05/28/17 21:01 06/05/17 09:02 Brilinta PO 90 mg Q12H KSENIA Administration Discontinued Medications Generic Name Dose Route Start Last Admin Trade Name Freq PRN Reason Stop Dose Admin Acetaminophen 650 mg 05/21/17 15:10 Tylenol Supp PA Q5H PRN Pain Acetaminophen 325 - 650 mg 05/28/17 09:24 Tylenol PO Q5H PRN Pain Hydrocodone Bitart/Acetaminophen 1 tab 05/17/17 21:00 05/31/17 08:42 Dike 7.5/325 PO 1 tab BID KSENIA Administration Hydrocodone Bitart/Acetaminophen 1 - 2 tab 05/28/17 09:24 Dike 5/325 PO Q5H PRN Pain Acetazolamide 500 mg 05/19/17 10:51 05/19/17 11:25 Diamox PO 05/19/17 10:52 500 mg O ONE Administration Adenosine 12 mg 05/21/17 09:17 05/21/17 08:50 Adenocard IVP 05/21/17 09:18 12 mg O ONE Administration Adenosine 6 mg 05/21/17 09:18 05/21/17 09:23 Adenocard IVP 05/21/17 09:19 6 mg O ONE Administration Albuterol/Ipratropium 6 ml 05/17/17 05:19 05/17/17 05:33 Duoneb AEROSOL 05/17/17 05:20 6 ml O ONE Administration Albuterol/Ipratropium 3 ml 05/17/17 11:00 05/21/17 18:22 Duoneb AEROSOL Not Given RTQID [facility] Amlodipine Besylate 10 mg 05/24/17 13:46 06/04/17 09:44 Norvasc PO 10 mg DAILY [facility] Administration Aspirin 81 mg 05/18/17 09:00 05/23/17 08:26 Asa PO Not Given DAILY [facility] Aspirin 81 mg 05/22/17 16:00 05/31/17 08:42 Asa GT 81 mg DAILY [facility] Administration Atenolol 25 mg 05/18/17 09:00 05/24/17 08:58 Tenormin PO 25 mg DAILY [facility] Administration Atenolol 50 mg 05/25/17 09:00 05/28/17 12:30 Tenormin PO Not Given DAILY [facility] Atenolol 25 mg 05/24/17 09:40 05/24/17 11:09 Tenormin PO 05/24/17 09:41 25 mg O ONE Administration Atropine Sulfate 0.5 mg 05/28/17 09:24 Atropine IVP Q5M PRN Bradycardia Benzocaine 1 lozenge 05/20/17 18:54 Cepacol Sore Throat Lozenge MM Q2HR PRN Sore throat Bisacodyl 10 mg 05/28/17 09:24 Dulcolax RECTALLY DAILY PRN Constipation Bivalirudin 250 mg 05/24/17 14:15 Angiomax IV NOW [facility] Enoxaparin Sodium 1 each 05/18/17 10:47 05/18/17 12:54 Pharmacy Consult - Lovenox 05/18/17 10:48 1 each O ONE Administration Enoxaparin Sodium 50 mg 05/18/17 11:45 05/20/17 08:37 Lovenox SQ 50 mg DAILY [facility] Administration Enoxaparin Sodium 142 mg 05/27/17 17:00 05/28/17 09:34 Lovenox SQ 142 mg DAILY [facility] Administration Furosemide 20 mg 05/18/17 09:00 05/20/17 08:37 Lasix PO 20 mg DAILY [facility] Administration Furosemide 40 mg 05/21/17 09:37 05/21/17 09:45 Lasix IVP 05/21/17 09:38 40 mg ONCE ONE Administration Furosemide 20 mg 05/23/17 21:00 02/16/18 08:59 Lasix IVP 20 mg Q12HR KSENIA Administration Furosemide 20 mg 05/24/17 17:00 05/27/17 09:31 Lasix IVP 20 mg Q8HR KSENIA Administration Furosemide 20 mg 05/27/17 21:00 05/29/17 08:09 Lasix IVP 20 mg Q12H KSENIA Administration Furosemide 20 mg 05/29/17 09:00 Lasix IVP DAILY KSENIA Guaifenesin 1,200 mg 05/18/17 09:00 05/29/17 08:14 Mucinex La PO Not Given BID KSENIA Haloperidol Decanoate 1 mg 06/01/17 17:43 06/02/17 17:00 Haldol Liquid GT 1 mg Q4H PRN Administration Heparin Sodium (Beef Lung) 5,000 unit 05/21/17 09:23 05/21/17 10:07 Heparin Bolus IVP 05/21/17 09:24 5,000 unit O ONE Administration Heparin Sodium (Beef Lung) 3,000 unit 05/21/17 17:45 05/21/17 17:53 Heparin Bolus IVP 05/21/17 17:46 3,000 unit O ONE Administration Heparin Sodium (Beef Lung) 3,000 unit 05/22/17 03:37 05/22/17 03:46 Heparin Bolus IVP 05/22/17 03:38 3,000 unit O ONE Administration Heparin Sodium (Porcine) 1 each 05/21/17 09:08 Pharmacy Consult - Heparin 05/21/17 09:09 ONE TIME ONE Hydralazine HCl 5 mg 05/22/17 08:47 05/22/17 10:09 Apresoline IVP 5 mg Q6H PRN Administration Hypertension Hydralazine HCl 10 mg 05/22/17 15:01 05/28/17 06:06 Apresoline IVP 10 mg Q4H PRN Administration Hypertension Sodium Chloride 1,000 mls @ 999.9 mls/hr 05/17/17 05:44 05/17/17 11:20 Normal Saline IV 05/17/17 06:43 Infused .Q1H ONE Infusion Sodium Chloride 1,000 mls @ 75 mls/hr 05/17/17 10:08 05/19/17 11:19 Normal Saline IV Infused .[id number] KSENIA Infusion Ceftriaxone Sodium 2 gm/ 100 mls @ 200 mls/hr 05/18/17 01:15 05/18/17 01:50 Sodium Chloride IV Infused Q24H KSENIA Infusion Ceftriaxone Sodium 2 gm/ 50 mls @ 100 mls/hr 05/18/17 21:00 05/20/17 21:55 Sodium Chloride IV Infused Q24H KSENIA Infusion Heparin Sodium (Porcine) 20,000 unit in 500 mls @ 44 mls/hr 05/21/17 09:30 13:17 Heparin Drip IV Infused .[id number] KSENIA Titration Protocol Dexmedetomidine HCl 200 mcg/ 52 mls @ 6.87 mls/hr 05/21/17 09:52 05/21/17 20: 00 Sodium Chloride IV 05/21/17 20:29 0 mcg/kg/hr .Q7H35M PRN 0 mls/hr Protocol Titration 0.2 MCG/KG/HR Propofol 1,000 mg in 100 mls @ 3.969 mls/hr 05/21/17 10:39 05/21/17 14:28 Diprivan IV 0 mcg/kg/min .Q24H PRN 0 mls/hr Protocol Infusion 5 MCG/KG/MIN Fentanyl 1,000 mcg/ Sodium 100 mls @ 0 mls/hr 05/21/17 13:02 05/27/17 14:45 Chloride IV Infused .Q0M PRN Titration Protocol Per Protocol Sodium Chloride 250 mls @ 999.9 mls/hr 05/21/17 13:15 05/21/17 14:28 Normal Saline IV 05/21/17 13:29 Infused .Q15M KSENIA Infusion Cefepime HCl 1 gm/ Sodium 50 mls @ 100 mls/hr 05/21/17 15:30 05/29/17 10:46 Chloride IV Infused Q6H KSENIA Infusion Levofloxacin/Dextrose 750 mg in 150 mls @ 100 mls/hr 05/21/17 16:00 05/28/17 17:15 Levaquin Premix IV Infused Q24H KSENIA Infusion Vancomycin HCl 1,500 mg/ 500 mls @ 250 mls/hr 05/21/17 18:00 05/24/17 12:15 Sodium Chloride IV Infused Q8H KSENIA Infusion Dexmedetomidine HCl 1,000 mcg/ 260 mls @ 6.87 mls/hr 05/21/17 20:30 05/27/17 14:45 Sodium Chloride IV 05/27/17 14:45 Infused .Q24H PRN Titration Protocol 0.2 MCG/KG/HR Potassium Chloride 10 meq in 100 mls @ 100 mls/hr 05/23/17 09:45 05/23/17 17: 34 Potassium Chloride Premix IV 05/23/17 13:44 Infused Q1H KSENIA Infusion Heparin Sodium (Porcine) 20,000 unit in 500 mls @ 45 mls/hr 05/23/17 16:00 06:16 Heparin Drip IV Not Given .Q11H7M KSENIA Protocol Potassium Chloride 10 meq in 100 mls @ 100 mls/hr 05/24/17 09:45 05/24/17 15: 56 Potassium Chloride Premix IV 05/24/17 13:44 Not Given Q1H KSENIA Potassium Chloride 10 meq/ 105 mls @ 105 mls/hr 05/24/17 11:45 05/24/17 17:00 Sodium Chloride IV 05/24/17 15:44 Infused Q1H KSENIA Infusion Bivalirudin 250 mg/ Sodium 500 mls @ 43.2 mls/hr 05/24/17 15:15 05/27/17 17: 34 Chloride IV Not Given .[id number] KSENIA Sodium Chloride 1,000 mls @ 75 mls/hr 05/28/17 07:45 05/28/17 14:00 Normal Saline IV Infused .[id number] KSENIA Infusion Sodium Chloride 1,000 mls @ 500 mls/hr 05/30/17 10:14 05/30/17 10:41 Normal Saline IV 05/30/17 12:13 500 mls/hr .Q2H ONE Administration Sodium Chloride 1,000 mls @ 60 mls/hr 05/30/17 17:00 05/31/17 06:00 Normal Saline IV 05/31/17 09:39 60 mls/hr .[id number] KSENIA Infusion Insulin Aspart 1 - 5 unit 05/17/17 10:12 05/18/17 06:06 Novolog SQ 2 unit SS PRN Administration Hyperglycemia Protocol Insulin Aspart 2 - 8 unit 05/18/17 08:22 05/21/17 07:30 Novolog SQ 3 unit SS PRN Administration Hyperglycemia Protocol Insulin Aspart 15 unit 05/20/17 10:32 05/20/17 10:36 Novolog SQ 05/20/17 10:33 15 unit ONE TIME ONE Administration Insulin Aspart 10 unit 05/26/17 12:00 05/26/17 13:54 Novolog SQ Not Given Q6H KSENIA Insulin Aspart 10 unit 05/26/17 15:00 05/27/17 21:06 Novolog SQ Not Given 0300,0900,1500,2100 KSENIA Insulin Aspart 10 unit 05/28/17 15:00 Novolog SQ Q6HR KSENIA Insulin Aspart 10 unit 05/28/17 18:00 05/31/17 06:11 Novolog SQ 10 unit Q6H KSENIA Administration Insulin Aspart 12 unit 05/31/17 08:41 06/03/17 19:14 Novolog SQ Not Given Q6H KSENIA Insulin Aspart 15 unit 06/01/17 15:00 06/02/17 10:37 Novolog SQ Not Given Q6H [facility] Insulin Aspart 18 unit 06/02/17 09:58 06/03/17 17:37 Novolog SQ 18 unit Q6H KSENIA Administration Insulin Glargine 10 unit 05/21/17 21:00 05/21/17 20:14 Lantus SQ 10 unit HS [facility] Administration Insulin Glargine 20 unit 05/22/17 21:00 05/22/17 20:14 Lantus SQ 20 unit HS [facility] Administration Insulin Glargine 40 unit 05/23/17 21:00 05/30/17 21:34 Lantus SQ 40 unit HS [facility] Administration Insulin Glargine 50 unit 05/31/17 08:41 05/31/17 21:06 Lantus SQ 50 unit HS [facility] Administration Insulin Glargine 60 unit 06/01/17 21:00 06/02/17 20:23 Lantus SQ 60 unit HS [facility] Administration Labetalol HCl 10 mg 05/21/17 20:40 05/22/17 06:05 Trandate IVP 10 mg Q4H PRN Administration INCREASED blood pressure Lactulose 20 gm 06/02/17 10:00 06/02/17 11:09 Lactulose PO 06/02/17 10:01 20 gm O ONE Administration Lisinopril 10 mg 05/24/17 16:15 05/31/17 08:42 Prinivil PO 10 mg DAILY KSENIA Administration Lisinopril 10 mg 05/31/17 15:18 05/31/17 15:43 Prinivil PO 05/31/17 15:19 10 mg O ONE Administration Lisinopril 20 mg 06/01/17 09:00 06/04/17 09:45 Prinivil PO 20 mg DAILY KSENIA Administration Lorazepam 1 mg 05/17/17 06:16 05/17/17 06:56 Ativan PO 05/17/17 06:17 1 mg O ONE Administration Lorazepam 0.5 mg 05/17/17 10:13 05/24/17 15:55 Ativan Inj IVP 0.5 mg Q6H PRN Administration Lorazepam 1 mg 05/24/17 19:46 05/31/17 01:43 Ativan Inj IVP 1 mg Q2H PRN Administration Agitation/Air hunger/Pain Lorazepam 0.5 - 1 mg 05/28/17 09:24 Ativan Inj IVP Q4H PRN Anxiety Magnesium Hydroxide 30 ml 05/26/17 12:41 05/26/17 13:53 Mom GT 05/26/17 12:42 30 ml O ONE Administration Menthol 1 lozenge 05/18/17 08:19 Ricola Sf MM PRN PRN Cough Metformin HCl 500 mg 05/17/17 17:30 05/18/17 10:00 Glucophage PO Not Given BIDWM KSENIA Metformin HCl 500 mg 05/19/17 09:00 05/21/17 10:52 Glucophage PO Not Given BIDWM KSENIA Methylprednisolone Sodium Succinate 125 mg 05/17/17 06:26 05/17/17 06:53 Solu-Medrol IM 05/17/17 06:27 125 mg O ONE Administration Methylprednisolone Sodium Succinate 125 mg 05/17/17 15:00 05/20/17 08:37 Solu-Medrol IVP 125 mg Q6HR KSENIA Administration Methylprednisolone Sodium Succinate 80 mg 05/20/17 15:00 05/24/17 08:57 Solu-Medrol IVP 80 mg Q6HR KSENIA Administration Methylprednisolone Sodium Succinate 80 mg 05/24/17 17:00 05/26/17 08:23 Solu-Medrol IVP 80 mg Q8HR KSENIA Administration Methylprednisolone Sodium Succinate 80 mg 05/26/17 21:00 05/29/17 08:15 Solu-Medrol IVP 80 mg Q12HR KSENIA Administration Methylprednisolone Sodium Succinate 60 mg 05/29/17 21:00 06/01/17 21:57 Solu-Medrol IVP 06/02/17 04:00 60 mg Q12HR KSENIA Administration Metoclopramide HCl 5 mg 05/23/17 17:30 05/30/17 10:42 Reglan GT 5 mg Q6H KSENIA Administration Metoclopramide HCl 5 - 10 mg 05/28/17 09:24 Reglan IVP Q6H PRN Nausea &/or vomiting Metoclopramide HCl 5 mg 05/30/17 14:00 06/03/17 23:15 Reglan GT Not Given Q6H KSENIA Metoprolol Tartrate 15 mg 05/21/17 09:18 05/21/17 09:05 Lopressor IVP 05/21/17 09:19 15 mg ONCE ONE Administration Metoprolol Tartrate 5 mg 05/28/17 10:01 05/28/17 10:00 Lopressor IVP 05/28/17 10:02 5 mg ONCE ONE Administration Morphine Sulfate 1 - 2 mg 05/17/17 10:08 05/24/17 17:56 Morphine Sulfate Inj IVP 2 mg Q2H PRN Administration Pain Morphine Sulfate 2 - 4 mg 05/28/17 09:24 05/28/17 10:17 Morphine Sulfate Inj IVP 05/29/17 09:23 4 mg Q2H PRN Administration Pain Morphine Sulfate 2 - 4 mg 05/28/17 09:24 06/02/17 08:19 Morphine Sulfate Inj IVP 2 mg Q5M PRN Administration Angina Nitroglycerin 0.4 mg 05/17/17 10:14 05/21/17 08:35 Nitrostat SL 0.4 mg Q5MIN3 PRN Administration CP Nitroglycerin 0.4 mg 05/28/17 09:24 Nitrostat SL Q5M PRN Angina --Pom--(Itraconazole 200 mg 05/17/17 21:00 05/29/17 09:39 [Itraconazole] 200 PO Not Given Mg) BID KSENIA Ondansetron HCl 4 mg 05/17/17 10:08 05/19/17 02:45 Zofran IVP 4 mg Q6H PRN Administration Nausea &/or vomiting Oseltamivir Phosphate 75 mg 05/29/17 21:00 06/03/17 09:27 Tamiflu 06/03/17 09:01 75 mg BID KSENIA Administration Pantoprazole Sodium 40 mg 05/22/17 09:00 05/31/17 08:44 Protonix Iv IVP 40 mg DAILY KSENIA Administration Pharmacy Consult 1 each 05/17/17 10:32 Pharmacy Consult - Fall Risk XX 05/17/17 10:33 ONE TIME ONE Pharmacy Consult 1 each 05/27/17 10:17 Pharmacy Consult - Fall Risk XX 05/27/17 10:18 ONE TIME ONE Pharmacy Consult 1 each 06/05/17 10:03 Pharmacy Consult - Fall Risk XX 06/05/17 10:04 ONE TIME ONE Potassium Chloride 40 meq 05/24/17 18:10 05/26/17 06:13 Kcl Oral Liq 20 Meq/15 Ml PO Not Given BIDWM KSENIA Potassium Chloride 40 meq 05/25/17 13:00 05/26/17 08:22 Kcl Oral Liq 20 Meq/15 Ml PO 40 meq QID KSENIA Administration Potassium Chloride 40 meq 05/26/17 12:00 05/27/17 12:04 Kcl Oral Liq 20 Meq/15 Ml PO 40 meq TIDWM KSENIA Administration Potassium Chloride 40 meq 05/27/17 17:30 05/29/17 07:59 Kcl Oral Liq 20 Meq/15 Ml PO 40 meq BIDWM KSENIA Administration Potassium Chloride 40 meq 05/29/17 09:00 05/30/17 08:42 Kcl Oral Liq 20 Meq/15 Ml PO 40 meq DAILY [facility]IA Administration Prednisone 60 mg 06/02/17 08:00 06/03/17 09:20 Deltasone 20 Mg PO 60 mg WB KSENIA Administration Promethazine HCl 12.5 - 25 mg 05/28/17 09:24 Phenergan Inj IVP Q6HR PRN Nausea &/or vomiting Simvastatin 20 mg 05/17/17 21:00 05/27/17 20:36 Zocor PO Not Given HS KSENIA Vancomycin HCl 1 each 05/21/17 15:19 05/21/17 15:53 Pharmacy Consult - Vancomycin MC 05/21/17 15:20 1 each O ONE Administration - Constitutional no acute distress, morbidly obese, cooperative - Routine HEENT Exam Head: Present: normocephalic, atraumatic Eye: Present: EOMI, PERRL ENT: Present: mucous membranes moist - Routine Neck Exam Present: supple, full ROM, trachea midline - Routine Respiratory Exam Present: decreased breath sounds. Absent: accessory muscle use, patient mechanically ventilated - Routine Cardiovascular Exam Present: RRR, S1, S2, no murmur - Routine Abdominal Exam Present: soft, normoactive bowel sounds - Routine Extremities Exam Present: edema, non tender, full ROM - Routine Back/Spine/Pelvis Exam Back/Spine: Present: full ROM - Routine Skin Exam Present: intact, dry - Routine Neurological Exam Present: alert, oriented X3, CN II-XII intact - Routine Psychiatric Exam Present: normal affect, normal thought process - Urinary Catheter Management Urethral Cath placed during this visit: yes Insertion date: 05/21/17 Results - Laboratory Findings Laboratory: Laboratory Results - last 48 hr 06/03/17 06/03/17 06/03/17 16:49 18:16 19:36 WBC RBC Hgb Hct MCV MCH MCHC RDW Std Deviation Plt Count MPV Immature Gran % (Auto) Neut % (Auto) Lymph % (Auto) Weber % (Auto) Eos % (Auto) Baso % (Auto) Neut # (Auto) Lymph # (Auto) Weber # (Auto) Eos # (Auto) Baso # (Auto) Abs Immat Gran (auto) Neutrophils % (Manual) Band Neutrophils % Lymphocytes % (Manual) Monocytes % (Manual) Metamyelocytes % Neutrophils # (Manual) Band Neutrophils # Lymphocytes # (Manual) Monocytes # (Manual) Metamyelocytes # RBC Morph Comment ABG pH ABG pCO2 ABG pO2 ABG HCO3 ABG Total CO2 ABG O2 Saturation ABG Base Excess O2 Delivery Method FiO2 % Turbidity Sodium Potassium Chloride Carbon Dioxide Anion Gap BUN Creatinine GFR Calculation BUN/Creatinine Ratio Glucose Glucometer 185 216 230 Calculated Osmolality Calcium Icterus Index Specimen Hemolysis 06/03/17 06/04/17 06/04/17 22:13 01:13 02:07 WBC RBC Hgb Hct MCV MCH MCHC RDW Std Deviation Plt Count MPV Immature Gran % (Auto) Neut % (Auto) Lymph % (Auto) Weber % (Auto) Eos % (Auto) Baso % (Auto) Neut # (Auto) Lymph # (Auto) Weber # (Auto) Eos # (Auto) Baso # (Auto) Abs Immat Gran (auto) Neutrophils % (Manual) Band Neutrophils % Lymphocytes % (Manual) Monocytes % (Manual) Metamyelocytes % Neutrophils # (Manual) Band Neutrophils # Lymphocytes # (Manual) Monocytes # (Manual) Metamyelocytes # RBC Morph Comment ABG pH ABG pCO2 ABG pO2 ABG HCO3 ABG Total CO2 ABG O2 Saturation ABG Base Excess O2 Delivery Method FiO2 % Turbidity Sodium Potassium Chloride Carbon Dioxide Anion Gap BUN Creatinine GFR Calculation BUN/Creatinine Ratio Glucose Glucometer 104 69 78 Calculated Osmolality Calcium Icterus Index Specimen Hemolysis 06/04/17 06/04/17 06/04/17 04:10 04:42 04:42 WBC 12.1 H RBC 3.64 L Hgb 10.8 L Hct 34.6 L MCV 95.1 MCH 29.7 MCHC 31.2 RDW Std Deviation 44.3 Plt Count 82 L MPV TNP Immature Gran % (Auto) Not performed Neut % (Auto) Not performed Lymph % (Auto) Not performed Weber % (Auto) Not performed Eos % (Auto) Not performed Baso % (Auto) Not performed Neut # (Auto) Not performed Lymph # (Auto) Not performed Weber # (Auto) Not performed Eos # (Auto) Not performed Baso # (Auto) Not performed Abs Immat Gran (auto) Not performed Neutrophils % (Manual) 78.0 H Band Neutrophils % 2.0 Lymphocytes % (Manual) 13.0 L Monocytes % (Manual) 4.0 Metamyelocytes % 3.0 H Neutrophils # (Manual) 9.4 H Band Neutrophils # 0.2 Lymphocytes # (Manual) 1.6 Monocytes # (Manual) 0.5 Metamyelocytes # 0.4 RBC Morph Comment Normal ABG pH ABG pCO2 ABG pO2 ABG HCO3 ABG Total CO2 ABG O2 Saturation ABG Base Excess O2 Delivery Method FiO2 % Turbidity < 20 Sodium 141 Potassium 4.2 Chloride 102 Carbon Dioxide 34 H Anion Gap 5 BUN 42.0 H Creatinine 0.7 L GFR Calculation 114 BUN/Creatinine Ratio 60 H Glucose 76 Glucometer 84 Calculated Osmolality 281 H Calcium 8.6 Icterus Index < 2 Specimen Hemolysis < 15 06/04/17 06/04/17 06/04/17 06:18 07:40 08:41 WBC RBC Hgb Hct MCV MCH MCHC RDW Std Deviation Plt Count MPV Immature Gran % (Auto) Neut % (Auto) Lymph % (Auto) Weber % (Auto) Eos % (Auto) Baso % (Auto) Neut # (Auto) Lymph # (Auto) Weber # (Auto) Eos # (Auto) Baso # (Auto) Abs Immat Gran (auto) Neutrophils % (Manual) Band Neutrophils % Lymphocytes % (Manual) Monocytes % (Manual) Metamyelocytes % Neutrophils # (Manual) Band Neutrophils # Lymphocytes # (Manual) Monocytes # (Manual) Metamyelocytes # RBC Morph Comment ABG pH 7.431 ABG pCO2 47 H ABG pO2 70 L ABG HCO3 31.0 H ABG Total CO2 33.0 H ABG O2 Saturation 94.0 L ABG Base Excess 6.0 H O2 Delivery Method Bpap, % FiO2 % 30 Turbidity Sodium Potassium Chloride Carbon Dioxide Anion Gap BUN Creatinine GFR Calculation BUN/Creatinine Ratio Glucose Glucometer 89 85 Calculated Osmolality Calcium Icterus Index Specimen Hemolysis 06/04/17 06/04/17 06/04/17 11:36 12:36 15:36 WBC RBC Hgb Hct MCV MCH MCHC RDW Std Deviation Plt Count MPV Immature Gran % (Auto) Neut % (Auto) Lymph % (Auto) Weber % (Auto) Eos % (Auto) Baso % (Auto) Neut # (Auto) Lymph # (Auto) Weber # (Auto) Eos # (Auto) Baso # (Auto) Abs Immat Gran (auto) Neutrophils % (Manual) Band Neutrophils % Lymphocytes % (Manual) Monocytes % (Manual) Metamyelocytes % Neutrophils # (Manual) Band Neutrophils # Lymphocytes # (Manual) Monocytes # (Manual) Metamyelocytes # RBC Morph Comment ABG pH ABG pCO2 ABG pO2 ABG HCO3 ABG Total CO2 ABG O2 Saturation ABG Base Excess O2 Delivery Method FiO2 % Turbidity Sodium Potassium Chloride Carbon Dioxide Anion Gap BUN Creatinine GFR Calculation BUN/Creatinine Ratio Glucose Glucometer 118 141 243 Calculated Osmolality Calcium Icterus Index Specimen Hemolysis 06/04/17 06/04/17 06/04/17 17:06 19:25 21:58 WBC RBC Hgb Hct MCV MCH MCHC RDW Std Deviation Plt Count MPV Immature Gran % (Auto) Neut % (Auto) Lymph % (Auto) Weber % (Auto) Eos % (Auto) Baso % (Auto) Neut # (Auto) Lymph # (Auto) Weber # (Auto) Eos # (Auto) Baso # (Auto) Abs Immat Gran (auto) Neutrophils % (Manual) Band Neutrophils % Lymphocytes % (Manual) Monocytes % (Manual) Metamyelocytes % Neutrophils # (Manual) Band Neutrophils # Lymphocytes # (Manual) Monocytes # (Manual) Metamyelocytes # RBC Morph Comment ABG pH ABG pCO2 ABG pO2 ABG HCO3 ABG Total CO2 ABG O2 Saturation ABG Base Excess O2 Delivery Method FiO2 % Turbidity Sodium Potassium Chloride Carbon Dioxide Anion Gap BUN Creatinine GFR Calculation BUN/Creatinine Ratio Glucose Glucometer 234 230 138 Calculated Osmolality Calcium Icterus Index Specimen Hemolysis 06/04/17 06/05/17 06/05/17 23:23 02:14 05:06 WBC RBC Hgb Hct MCV MCH MCHC RDW Std Deviation Plt Count MPV Immature Gran % (Auto) Neut % (Auto) Lymph % (Auto) Weber % (Auto) Eos % (Auto) Baso % (Auto) Neut # (Auto) Lymph # (Auto) Weber # (Auto) Eos # (Auto) Baso # (Auto) Abs Immat Gran (auto) Neutrophils % (Manual) Band Neutrophils % Lymphocytes % (Manual) Monocytes % (Manual) Metamyelocytes % Neutrophils # (Manual) Band Neutrophils # Lymphocytes # (Manual) Monocytes # (Manual) Metamyelocytes # RBC Morph Comment ABG pH ABG pCO2 ABG pO2 ABG HCO3 ABG Total CO2 ABG O2 Saturation ABG Base Excess O2 Delivery Method FiO2 % Turbidity Sodium Potassium Chloride Carbon Dioxide Anion Gap BUN Creatinine GFR Calculation BUN/Creatinine Ratio Glucose Glucometer 142 111 102 Calculated Osmolality Calcium Icterus Index Specimen Hemolysis 06/05/17 06/05/17 06/05/17 06:22 06:22 07:16 WBC 10.9 RBC 3.59 L Hgb 10.8 L Hct 34.3 L MCV 95.5 MCH 30.1 MCHC 31.5 RDW Std Deviation 44.5 Plt Count 75 L MPV Not performed Immature Gran % (Auto) 1.9 H Neut % (Auto) 78.5 H Lymph % (Auto) 14.6 L Weber % (Auto) 4.2 Eos % (Auto) 0.6 Baso % (Auto) 0.2 Neut # (Auto) 8.6 H Lymph # (Auto) 1.6 Weber # (Auto) 0.5 Eos # (Auto) 0.1 Baso # (Auto) 0.0 Abs Immat Gran (auto) 0.21 H Neutrophils % (Manual) Band Neutrophils % Lymphocytes % (Manual) Monocytes % (Manual) Metamyelocytes % Neutrophils # (Manual) Band Neutrophils # Lymphocytes # (Manual) Monocytes # (Manual) Metamyelocytes # RBC Morph Comment ABG pH ABG pCO2 ABG pO2 ABG HCO3 ABG Total CO2 ABG O2 Saturation ABG Base Excess O2 Delivery Method FiO2 % Turbidity < 20 Sodium 142 Potassium 4.1 Chloride 102 Carbon Dioxide 33 H Anion Gap 7 BUN 31.0 H Creatinine 0.7 L GFR Calculation 114 BUN/Creatinine Ratio 44 H Glucose 96 Glucometer 117 Calculated Osmolality 280 Calcium 8.7 Icterus Index < 2 Specimen Hemolysis < 15 06/05/17 09:14 WBC RBC Hgb Hct MCV MCH MCHC RDW Std Deviation Plt Count MPV Immature Gran % (Auto) Neut % (Auto) Lymph % (Auto) Weber % (Auto) Eos % (Auto) Baso % (Auto) Neut # (Auto) Lymph # (Auto) Weber # (Auto) Eos # (Auto) Baso # (Auto) Abs Immat Gran (auto) Neutrophils % (Manual) Band Neutrophils % Lymphocytes % (Manual) Monocytes % (Manual) Metamyelocytes % Neutrophils # (Manual) Band Neutrophils # Lymphocytes # (Manual) Monocytes # (Manual) Metamyelocytes # RBC Morph Comment ABG pH ABG pCO2 ABG pO2 ABG HCO3 ABG Total CO2 ABG O2 Saturation ABG Base Excess O2 Delivery Method FiO2 % Turbidity Sodium Potassium Chloride Carbon Dioxide Anion Gap BUN Creatinine GFR Calculation BUN/Creatinine Ratio Glucose Glucometer 238 Calculated Osmolality Calcium Icterus Index Specimen Hemolysis Assessment and Plan - Assessment and Plan Acute on Chronic Hypoxic Hypercapnic Respiratory Failure LLL mass 2.2 cm - plan OP biopsy COPD exacerbation Influenza B Chest Pain/Wide complex tachycardia s/p cardioversion CAD s/p stent ANGELLA/OHS Morbid Obesity Thrombocytopenia - resolved Plan: Pt currently on O2 at 5L, otherwise using bipap 10/7, rate 16, Fio2 30%, qHs and prn. On a/a q4hr, pulmicort and prednisone, wean to 40, no wheezing or SOB noted at this time. S/P tamiflu for Influenza, still on brilanta for CAD s/p stent. No CP at this time, CV following. Likely to [facility] soon. Will need to use home NIPPV at noc and prn there. - Time Spent With Patient Total time spent is greater than 50% in coordination of care (as documented) at patient's floor/unit and/or counseling patient: less than 15 minutes
--- NOTE | 2017-06-05 15:56 | Cardiology Progress Note ---
<Andreina Grijalva M - Last Filed: 06/05/17 15:55> Exam Vital signs: Temperature 97.6 F 06/05/17 11:16 Pulse Rate 115 H 06/05/17 13:07 Respiratory Rate 22 06/05/17 15:11 Blood Pressure 100/57 06/05/17 11:16 Pulse Oximetry 94 06/05/17 15:11 Inpatient Medications: Generic Name Dose Route Start Last Admin Trade Name Freq PRN Reason Stop Dose Admin Acetaminophen 325 - 650 mg 05/17/17 10:08 06/01/17 21:51 Tylenol PO 650 mg Q5H PRN Administration Discomfort Hydrocodone Bitart/Acetaminophen 1 tab 05/17/17 10:14 06/02/17 17:00 [place] 7.5/325 PO 1 tab Q6H PRN Administration Pain Al Hydroxide/Mg Hydroxide 30 ml 05/28/17 09:24 Maalox Plus PO Q3H PRN Indigestion Albuterol/Ipratropium 3 ml 05/17/17 10:11 Duoneb AEROSOL RTQID PRN Albuterol/Ipratropium 3 ml 05/21/17 15:15 06/05/17 15:11 Duoneb AEROSOL 3 ml Q4H [facility] Administration Amlodipine Besylate 5 mg 06/04/17 11:41 06/05/17 09:09 Norvasc PO 5 mg DAILY [facility] Administration Aspirin 81 mg 05/28/17 09:24 06/05/17 09:02 Ecotrin PO 81 mg DAILY [facility] Administration Atenolol 25 mg 05/29/17 09:00 06/05/17 09:02 Tenormin PO 25 mg BID [facility] Administration Atorvastatin Calcium 80 mg 05/28/17 21:00 06/04/17 22:15 Lipitor PO 80 mg HS [facility] Administration Bisacodyl 10 mg 05/27/17 15:11 Dulcolax RECTALLY DAILY PRN Constipation Bisacodyl 5 - 10 mg 05/28/17 09:24 Dulcolax PO DAILY PRN Constipation Budesonide 0.5 mg 05/17/17 19:00 06/05/17 07:31 Pulmicort Inhalation AEROSOL 0.5 mg RTBID [facility] Administration Bupropion HCl 150 mg 05/17/17 21:00 06/05/17 09:02 Wellbutrin Sr PO 150 mg BID [facility] Administration Citalopram Hydrobromide 40 mg 05/18/17 09:00 06/05/17 09:02 Celexa PO 40 mg DAILY [facility] Administration Clonidine HCl 0.1 mg 05/22/17 09:00 06/05/17 09:05 Catapres-Tts 1 TD Not Given Q7D@0900 [facility] Clonidine HCl 1 removal 05/29/17 08:59 06/05/17 09:05 Catapres Patch Removal TD 1 removal Q7D [facility] Administration Gabapentin 300 mg 05/17/17 15:00 06/05/17 15:52 Neurontin PO 300 mg TID [facility] Administration Glucose 37.5 gm 05/17/17 10:12 Glutose 15 PO PRN PRN Hypoglycemia Guaifenesin 400 mg 05/29/17 12:00 06/05/17 11:42 Robitussin Liq PO 400 mg Q6H [facility] Administration Haloperidol 1 mg 06/03/17 20:30 Haldol PO Q4H PRN Insulin Aspart 2 - 14 unit 05/21/17 11:43 06/05/17 09:44 Novolog SQ 4 unit SS PRN Administration Hyperglycemia Protocol Insulin Glargine 30 unit 06/03/17 21:00 06/04/17 22:14 Lantus SQ 30 unit HS [facility] Administration Lisinopril 10 mg 06/05/17 09:00 06/05/17 09:08 Prinivil PO 10 mg DAILY [facility] Administration Lorazepam 0.5 - 1 mg 05/28/17 09:24 06/02/17 13:52 Ativan PO 0.5 mg Q4H PRN Administration Anxiety Magnesium Hydroxide 30 ml 05/28/17 09:24 Mom PO DAILY PRN Constipation Nitroglycerin 0.4 mg 05/31/17 23:49 06/02/17 08:11 Nitrostat SL 0.4 mg Q5M PRN Administration Chest pain Nystatin 5 ml 06/03/17 21:00 06/05/17 13:26 Mycostatin PO 06/13/17 20:59 5 ml QID [facility] Administration Omeprazole 40 mg 05/18/17 06:30 06/05/17 07:46 Prilosec PO 40 mg ACB [facility] Administration Ondansetron HCl 4 mg 05/28/17 09:24 Zofran IVP Q6H PRN Nausea &/or vomiting Polyethylene Glycol 17 gm 06/03/17 09:00 06/05/17 09:05 Miralax PO 17 gm DAILY [facility] Administration Prednisone 40 mg 06/06/17 08:00 Deltasone 20 Mg PO WB [facility] Sodium Chloride 10 - 80 ml 05/17/17 05:20 06/05/17 11:42 Iv Flush IVF 20 ml PRN PRN Administration Flushing Sodium Chloride 1 spray 05/19/17 11:42 05/19/17 16:37 Deep Sea Nasal Moisturizing [place] EA NOSTRIL 1 spray PRN PRN Administration Congestion Sodium Chloride 500 ml 05/25/17 21:40 05/25/17 21:52 Normal Saline IV 500 ml PRN PRN Administration Ticagrelor 90 mg 05/28/17 21:01 06/05/17 09:02 Brilinta PO 90 mg Q12H [facility] Administration Discontinued Medications Generic Name Dose Route Start Last Admin Trade Name Freq PRN Reason Stop Dose Admin Acetaminophen 650 mg 05/21/17 15:10 Tylenol Supp DE Q5H PRN Pain Acetaminophen 325 - 650 mg 05/28/17 09:24 Tylenol PO Q5H PRN Pain Hydrocodone Bitart/Acetaminophen 1 tab 05/17/17 21:00 05/31/17 08:42 [place] 7.5/325 PO 1 tab BID [facility] Administration Hydrocodone Bitart/Acetaminophen 1 - 2 tab 05/28/17 09:24 [place] 5/325 PO Q5H PRN Pain Acetazolamide 500 mg 05/19/17 10:51 05/19/17 11:25 Diamox PO 05/19/17 10:52 500 mg O ONE Administration Adenosine 12 mg 05/21/17 09:17 05/21/17 08:50 Adenocard IVP 05/21/17 09:18 12 mg O ONE Administration Adenosine 6 mg 05/21/17 09:18 05/21/17 09:23 Adenocard IVP 05/21/17 09:19 6 mg O ONE Administration Albuterol/Ipratropium 6 ml 05/17/17 05:19 05/17/17 05:33 Duoneb AEROSOL 05/17/17 05:20 6 ml O ONE Administration Albuterol/Ipratropium 3 ml 05/17/17 11:00 05/21/17 18:22 Duoneb AEROSOL Not Given RTQID [facility] Amlodipine Besylate 10 mg 05/24/17 13:46 06/04/17 09:44 Norvasc PO 10 mg DAILY [facility] Administration Aspirin 81 mg 05/18/17 09:00 05/23/17 08:26 Asa PO Not Given DAILY [facility] Aspirin 81 mg 05/22/17 16:00 05/31/17 08:42 Asa GT 81 mg DAILY [facility] Administration Atenolol 25 mg 05/18/17 09:00 05/24/17 08:58 Tenormin PO 25 mg DAILY [facility] Administration Atenolol 50 mg 05/25/17 09:00 05/28/17 12:30 Tenormin PO Not Given DAILY [facility] Atenolol 25 mg 05/24/17 09:40 05/24/17 11:09 Tenormin PO 05/24/17 09:41 25 mg O ONE Administration Atropine Sulfate 0.5 mg 05/28/17 09:24 Atropine IVP Q5M PRN Bradycardia Benzocaine 1 lozenge 05/20/17 18:54 Cepacol Sore Throat Lozenge MM Q2HR PRN Sore throat Bisacodyl 10 mg 05/28/17 09:24 Dulcolax RECTALLY DAILY PRN Constipation Bivalirudin 250 mg 05/24/17 14:15 Angiomax IV NOW [facility] Enoxaparin Sodium 1 each 05/18/17 10:47 05/18/17 12:54 Pharmacy Consult - Lovenox 05/18/17 10:48 1 each O ONE Administration Enoxaparin Sodium 50 mg 05/18/17 11:45 05/20/17 08:37 Lovenox SQ 50 mg DAILY [facility] Administration Enoxaparin Sodium 142 mg 05/27/17 17:00 05/28/17 09:34 Lovenox SQ 142 mg DAILY [facility] Administration Furosemide 20 mg 05/18/17 09:00 05/20/17 08:37 Lasix PO 20 mg DAILY [facility] Administration Furosemide 40 mg 05/21/17 09:37 05/21/17 09:45 Lasix IVP 05/21/17 09:38 40 mg ONCE ONE Administration Furosemide 20 mg 05/23/17 21:00 05/24/17 08:59 Lasix IVP 20 mg Q12HR [facility] Administration Furosemide 20 mg 05/24/17 17:00 05/27/17 09:31 Lasix IVP 20 mg Q8HR [facility] Administration Furosemide 20 mg 05/27/17 21:00 05/29/17 08:09 Lasix IVP 20 mg Q12H [facility] Administration Furosemide 20 mg 05/29/17 09:00 Lasix IVP DAILY [facility] Guaifenesin 1,200 mg 05/18/17 09:00 05/29/17 08:14 Mucinex La PO Not Given BID [facility] Haloperidol Decanoate 1 mg 06/01/17 17:43 06/02/17 17:00 Haldol Liquid GT 1 mg Q4H PRN Administration Heparin Sodium (Beef Lung) 5,000 unit 05/21/17 09:23 05/21/17 10:07 Heparin Bolus IVP 05/21/17 09:24 5,000 unit O ONE Administration Heparin Sodium (Beef Lung) 3,000 unit 05/21/17 17:45 05/21/17 17:53 Heparin Bolus IVP 05/21/17 17:46 3,000 unit O ONE Administration Heparin Sodium (Beef Lung) 3,000 unit 05/22/17 03:37 05/22/17 03:46 Heparin Bolus IVP 05/22/17 03:38 3,000 unit O ONE Administration Heparin Sodium (Porcine) 1 each 05/21/17 09:08 Pharmacy Consult - Heparin 05/21/17 09:09 ONE TIME ONE Hydralazine HCl 5 mg 05/22/17 08:47 05/22/17 10:09 Apresoline IVP 5 mg Q6H PRN Administration Hypertension Hydralazine HCl 10 mg 05/22/17 15:01 05/28/17 06:06 Apresoline IVP 10 mg Q4H PRN Administration Hypertension Sodium Chloride 1,000 mls @ 999.9 mls/hr 05/17/17 05:44 05/17/17 11:20 Normal Saline IV 05/17/17 06:43 Infused .Q1H ONE Infusion Sodium Chloride 1,000 mls @ 75 mls/hr 05/17/17 10:08 05/19/17 11:19 Normal Saline IV Infused .[id number] [facility]IA Infusion Ceftriaxone Sodium 2 gm/ 100 mls @ 200 mls/hr 05/18/17 01:15 05/18/17 01:50 Sodium Chloride IV Infused Q24H [facility] Infusion Ceftriaxone Sodium 2 gm/ 50 mls @ 100 mls/hr 05/18/17 21:00 05/20/17 21:55 Sodium Chloride IV Infused Q24H [facility] Infusion Heparin Sodium (Porcine) 20,000 unit in 500 mls @ 44 mls/hr 05/21/17 09:30 13:17 Heparin Drip IV Infused .[id number] [facility] Titration Protocol Dexmedetomidine HCl 200 mcg/ 52 mls @ 6.87 mls/hr 05/21/17 09:52 05/21/17 20: 00 Sodium Chloride IV 05/21/17 20:29 0 mcg/kg/hr .Q7H35M PRN 0 mls/hr Protocol Titration 0.2 MCG/KG/HR Propofol 1,000 mg in 100 mls @ 3.969 mls/hr 05/21/17 10:39 05/21/17 14:28 Diprivan IV 0 mcg/kg/min .Q24H PRN 0 mls/hr Protocol Infusion 5 MCG/KG/MIN Fentanyl 1,000 mcg/ Sodium 100 mls @ 0 mls/hr 05/21/17 13:02 05/27/17 14:45 Chloride IV Infused .Q0M PRN Titration Protocol Per Protocol Sodium Chloride 250 mls @ 999.9 mls/hr 05/21/17 13:15 05/21/17 14:28 Normal Saline IV 05/21/17 13:29 Infused .Q15M [facility] Infusion Cefepime HCl 1 gm/ Sodium 50 mls @ 100 mls/hr 05/21/17 15:30 05/29/17 10:46 Chloride IV Infused Q6H [facility] Infusion Levofloxacin/Dextrose 750 mg in 150 mls @ 100 mls/hr 05/21/17 16:00 05/28/17 17:15 Levaquin Premix IV Infused Q24H [facility] Infusion Vancomycin HCl 1,500 mg/ 500 mls @ 250 mls/hr 05/21/17 18:00 05/24/17 12:15 Sodium Chloride IV Infused Q8H [facility] Infusion Dexmedetomidine HCl 1,000 mcg/ 260 mls @ 6.87 mls/hr 05/21/17 20:30 05/27/17 14:45 Sodium Chloride IV 05/27/17 14:45 Infused .Q24H PRN Titration Protocol 0.2 MCG/KG/HR Potassium Chloride 10 meq in 100 mls @ 100 mls/hr 05/23/17 09:45 05/23/17 17: 34 Potassium Chloride Premix IV 05/23/17 13:44 Infused Q1H [facility] Infusion Heparin Sodium (Porcine) 20,000 unit in 500 mls @ 45 mls/hr 05/23/17 16:00 06:16 Heparin Drip IV Not Given .Q11H7M [facility] Protocol Potassium Chloride 10 meq in 100 mls @ 100 mls/hr 05/24/17 09:45 05/24/17 15: 56 Potassium Chloride Premix IV 05/24/17 13:44 Not Given Q1H [facility] Potassium Chloride 10 meq/ 105 mls @ 105 mls/hr 05/24/17 11:45 05/24/17 17:00 Sodium Chloride IV 05/24/17 15:44 Infused Q1H [facility] Infusion Bivalirudin 250 mg/ Sodium 500 mls @ 43.2 mls/hr 05/24/17 15:15 05/27/17 17: 34 Chloride IV Not Given .[id number] [facility] Sodium Chloride 1,000 mls @ 75 mls/hr 05/28/17 07:45 05/28/17 14:00 Normal Saline IV Infused .[id number] [facility] Infusion Sodium Chloride 1,000 mls @ 500 mls/hr 05/30/17 10:14 05/30/17 10:41 Normal Saline IV 05/30/17 12:13 500 mls/hr .Q2H ONE Administration Sodium Chloride 1,000 mls @ 60 mls/hr 05/30/17 17:00 05/31/17 06:00 Normal Saline IV 05/31/17 09:39 60 mls/hr .[id number] [facility] Infusion Insulin Aspart 1 - 5 unit 05/17/17 10:12 05/18/17 06:06 Novolog SQ 2 unit SS PRN Administration Hyperglycemia Protocol Insulin Aspart 2 - 8 unit 05/18/17 08:22 05/21/17 07:30 Novolog SQ 3 unit SS PRN Administration Hyperglycemia Protocol Insulin Aspart 15 unit 05/20/17 10:32 05/20/17 10:36 Novolog SQ 05/20/17 10:33 15 unit ONE TIME ONE Administration Insulin Aspart 10 unit 05/26/17 12:00 05/26/17 13:54 Novolog SQ Not Given Q6H [facility] Insulin Aspart 10 unit 05/26/17 15:00 05/27/17 21:06 Novolog SQ Not Given 0300,0900,1500,2100 [facility] Insulin Aspart 10 unit 05/28/17 15:00 Novolog SQ Q6HR [facility] Insulin Aspart 10 unit 05/28/17 18:00 05/31/17 06:11 Novolog SQ 10 unit Q6H [facility] Administration Insulin Aspart 12 unit 05/31/17 08:41 06/03/17 19:14 Novolog SQ Not Given Q6H [facility] Insulin Aspart 15 unit 06/01/17 15:00 06/02/17 10:37 Novolog SQ Not Given Q6H [facility] Insulin Aspart 18 unit 06/02/17 09:58 06/03/17 17:37 Novolog SQ 18 unit Q6H [facility] Administration Insulin Glargine 10 unit 05/21/17 21:00 05/21/17 20:14 Lantus SQ 10 unit HS [facility] Administration Insulin Glargine 20 unit 05/22/17 21:00 05/22/17 20:14 Lantus SQ 20 unit HS [facility] Administration Insulin Glargine 40 unit 05/23/17 21:00 05/30/17 21:34 Lantus SQ 40 unit HS [facility] Administration Insulin Glargine 50 unit 05/31/17 08:41 05/31/17 21:06 Lantus SQ 50 unit HS [facility] Administration Insulin Glargine 60 unit 06/01/17 21:00 06/02/17 20:23 Lantus SQ 60 unit HS [facility] Administration Labetalol HCl 10 mg 05/21/17 20:40 05/22/17 06:05 Trandate IVP 10 mg Q4H PRN Administration INCREASED blood pressure Lactulose 20 gm 06/02/17 10:00 06/02/17 11:09 Lactulose PO 06/02/17 10:01 20 gm O ONE Administration Lisinopril 10 mg 05/24/17 16:15 05/31/17 08:42 Prinivil PO 10 mg DAILY [facility] Administration Lisinopril 10 mg 05/31/17 15:18 05/31/17 15:43 Prinivil PO 05/31/17 15:19 10 mg O ONE Administration Lisinopril 20 mg 06/01/17 09:00 06/04/17 09:45 Prinivil PO 20 mg DAILY [facility] Administration Lorazepam 1 mg 05/17/17 06:16 05/17/17 06:56 Ativan PO 05/17/17 06:17 1 mg O ONE Administration Lorazepam 0.5 mg 05/17/17 10:13 05/24/17 15:55 Ativan Inj IVP 0.5 mg Q6H PRN Administration Lorazepam 1 mg 05/24/17 19:46 05/31/17 01:43 Ativan Inj IVP 1 mg Q2H PRN Administration Agitation/Air hunger/Pain Lorazepam 0.5 - 1 mg 05/28/17 09:24 Ativan Inj IVP Q4H PRN Anxiety Magnesium Hydroxide 30 ml 05/26/17 12:41 05/26/17 13:53 Mom GT 05/26/17 12:42 30 ml O ONE Administration Menthol 1 lozenge 05/18/17 08:19 Ricola Sf MM PRN PRN Cough Metformin HCl 500 mg 05/17/17 17:30 05/18/17 10:00 Glucophage PO Not Given BIDWM [facility] Metformin HCl 500 mg 05/19/17 09:00 05/21/17 10:52 Glucophage PO Not Given BIDWM [facility] Methylprednisolone Sodium Succinate 125 mg 05/17/17 06:26 05/17/17 06:53 Solu-Medrol IM 05/17/17 06:27 125 mg O ONE Administration Methylprednisolone Sodium Succinate 125 mg 05/17/17 15:00 05/20/17 08:37 Solu-Medrol IVP 125 mg Q6HR [facility] Administration Methylprednisolone Sodium Succinate 80 mg 05/20/17 15:00 05/24/17 08:57 Solu-Medrol IVP 80 mg Q6HR [facility] Administration Methylprednisolone Sodium Succinate 80 mg 05/24/17 17:00 05/26/17 08:23 Solu-Medrol IVP 80 mg Q8HR [facility] Administration Methylprednisolone Sodium Succinate 80 mg 05/26/17 21:00 05/29/17 08:15 Solu-Medrol IVP 80 mg Q12HR [facility] Administration Methylprednisolone Sodium Succinate 60 mg 05/29/17 21:00 06/01/17 21:57 Solu-Medrol IVP 06/02/17 04:00 60 mg Q12HR [facility] Administration Metoclopramide HCl 5 mg 05/23/17 17:30 05/30/17 10:42 Reglan GT 5 mg Q6H [facility] Administration Metoclopramide HCl 5 - 10 mg 05/28/17 09:24 Reglan IVP Q6H PRN Nausea &/or vomiting Metoclopramide HCl 5 mg 05/30/17 14:00 06/03/17 23:15 Reglan GT Not Given Q6H [facility] Metoprolol Tartrate 15 mg 05/21/17 09:18 05/21/17 09:05 Lopressor IVP 05/21/17 09:19 15 mg ONCE ONE Administration Metoprolol Tartrate 5 mg 05/28/17 10:01 05/28/17 10:00 Lopressor IVP 05/28/17 10:02 5 mg ONCE ONE Administration Morphine Sulfate 1 - 2 mg 05/17/17 10:08 05/24/17 17:56 Morphine Sulfate Inj IVP 2 mg Q2H PRN Administration Pain Morphine Sulfate 2 - 4 mg 05/28/17 09:24 05/28/17 10:17 Morphine Sulfate Inj IVP 05/29/17 09:23 4 mg Q2H PRN Administration Pain Morphine Sulfate 2 - 4 mg 05/28/17 09:24 06/02/17 08:19 Morphine Sulfate Inj IVP 2 mg Q5M PRN Administration Angina Nitroglycerin 0.4 mg 05/17/17 10:14 05/21/17 08:35 Nitrostat SL 0.4 mg Q5MIN3 PRN Administration CP Nitroglycerin 0.4 mg 05/28/17 09:24 Nitrostat SL Q5M PRN Angina --Pom--(Itraconazole 200 mg 05/17/17 21:00 05/29/17 09:39 [Itraconazole] 200 PO Not Given Mg) BID [facility] Ondansetron HCl 4 mg 05/17/17 10:08 05/19/17 02:45 Zofran IVP 4 mg Q6H PRN Administration Nausea &/or vomiting Oseltamivir Phosphate 75 mg 05/29/17 21:00 06/03/17 09:27 Tamiflu 06/03/17 09:01 75 mg BID [facility] Administration Pantoprazole Sodium 40 mg 05/22/17 09:00 05/31/17 08:44 Protonix Iv IVP 40 mg DAILY [facility] Administration Pharmacy Consult 1 each 05/17/17 10:32 Pharmacy Consult - Fall Risk XX 05/17/17 10:33 ONE TIME ONE Pharmacy Consult 1 each 05/27/17 10:17 Pharmacy Consult - Fall Risk XX 05/27/17 10:18 ONE TIME ONE Pharmacy Consult 1 each 06/05/17 10:03 Pharmacy Consult - Fall Risk XX 06/05/17 10:04 ONE TIME ONE Potassium Chloride 40 meq 05/24/17 18:10 05/26/17 06:13 Kcl Oral Liq 20 Meq/15 Ml PO Not Given BIDWM [facility] Potassium Chloride 40 meq 05/25/17 13:00 05/26/17 08:22 Kcl Oral Liq 20 Meq/15 Ml PO 40 meq QID [facility] Administration Potassium Chloride 40 meq 05/26/17 12:00 05/27/17 12:04 Kcl Oral Liq 20 Meq/15 Ml PO 40 meq TIDWM [facility] Administration Potassium Chloride 40 meq 05/27/17 17:30 05/29/17 07:59 Kcl Oral Liq 20 Meq/15 Ml PO 40 meq BIDWM [facility] Administration Potassium Chloride 40 meq 05/29/17 09:00 05/30/17 08:42 Kcl Oral Liq 20 Meq/15 Ml PO 40 meq DAILY [facility] Administration Prednisone 60 mg 06/02/17 08:00 06/03/17 09:20 Deltasone 20 Mg PO 60 mg WB [facility] Administration Prednisone 50 mg 06/03/17 11:15 06/05/17 09:02 Deltasone 50 Mg PO 50 mg WB [facility] Administration Promethazine HCl 12.5 - 25 mg 05/28/17 09:24 Phenergan Inj IVP Q6HR PRN Nausea &/or vomiting Simvastatin 20 mg 05/17/17 21:00 05/27/17 20:36 Zocor PO Not Given HS [facility] Vancomycin HCl 1 each 05/21/17 15:19 05/21/17 15:53 Pharmacy Consult - Vancomycin MC 05/21/17 15:20 1 each O ONE Administration - Additional findings Additional findings: Acetaminophen (Tylenol) 325 - 650 mg PO Q5H PRN PRN Reason: Discomfort Last Admin: 06/01/17 21:51 Dose: 650 mg Hydrocodone Bitart/Acetaminophen ([place] 7.5/325) 1 tab PO Q6H PRN PRN Reason: Pain Last Admin: 06/02/17 17:00 Dose: 1 tab Al Hydroxide/Mg Hydroxide (Maalox Plus) 30 ml PO Q3H PRN PRN Reason: Indigestion Albuterol/Ipratropium (Duoneb) 3 ml AEROSOL RTQID PRN Albuterol/Ipratropium (Duoneb) 3 ml AEROSOL Q4H [facility] Last Admin: 06/05/17 15:11 Dose: 3 ml Amlodipine Besylate (Norvasc) 5 mg PO DAILY [facility] Last Admin: 06/05/17 09:09 Dose: 5 mg Aspirin (Ecotrin) 81 mg PO DAILY [facility] Last Admin: 06/05/17 09:02 Dose: 81 mg Atenolol (Tenormin) 25 mg PO BID [facility] Last Admin: 06/05/17 09:02 Dose: 25 mg Atorvastatin Calcium (Lipitor) 80 mg PO HS [facility] Last Admin: 06/04/17 22:15 Dose: 80 mg Bisacodyl (Dulcolax) 10 mg RECTALLY DAILY PRN PRN Reason: Constipation Bisacodyl (Dulcolax) 5 - 10 mg PO DAILY PRN PRN Reason: Constipation Budesonide (Pulmicort Inhalation) 0.5 mg AEROSOL RTBID [facility] Last Admin: 06/05/17 07:31 Dose: 0.5 mg Bupropion HCl (Wellbutrin Sr) 150 mg PO BID [facility] Last Admin: 06/05/17 09:02 Dose: 150 mg Citalopram Hydrobromide (Celexa) 40 mg PO DAILY [facility] Last Admin: 06/05/17 09:02 Dose: 40 mg Clonidine HCl (Catapres-Tts 1) 0.1 mg TD Q7D@0900 [facility] Last Admin: 06/05/17 09:05 Dose: Not Given Clonidine HCl (Catapres Patch Removal) 1 removal TD Q7D [facility] Last Admin: 06/05/17 09:05 Dose: 1 removal Gabapentin (Neurontin) 300 mg PO TID [facility] Last Admin: 06/05/17 15:52 Dose: 300 mg Glucose (Glutose 15) 37.5 gm PO PRN PRN PRN Reason: Hypoglycemia Guaifenesin (Robitussin Liq) 400 mg PO Q6H [facility] Last Admin: 06/05/17 11:42 Dose: 400 mg Haloperidol (Haldol) 1 mg PO Q4H PRN Insulin Aspart (Novolog) 2 - 14 unit SQ SS PRN; Protocol PRN Reason: Hyperglycemia Last Admin: 06/05/17 09:44 Dose: 4 unit Insulin Glargine (Lantus) 30 unit SQ HS [facility] Last Admin: 06/04/17 22:14 Dose: 30 unit Lisinopril (Prinivil) 10 mg PO DAILY [facility] Last Admin: 06/05/17 09:08 Dose: 10 mg Lorazepam (Ativan) 0.5 - 1 mg PO Q4H PRN PRN Reason: Anxiety Last Admin: 06/02/17 13:52 Dose: 0.5 mg Magnesium Hydroxide (Mom) 30 ml PO DAILY PRN PRN Reason: Constipation Nitroglycerin (Nitrostat) 0.4 mg SL Q5M PRN PRN Reason: Chest pain Last Admin: 06/02/17 08:11 Dose: 0.4 mg Nystatin (Mycostatin) 5 ml PO QID [facility] Stop: 06/13/17 20:59 Last Admin: 06/05/17 13:26 Dose: 5 ml Omeprazole (Prilosec) 40 mg PO ACB [facility] Last Admin: 06/05/17 07:46 Dose: 40 mg Ondansetron HCl (Zofran) 4 mg IVP Q6H PRN PRN Reason: Nausea &/or vomiting Polyethylene Glycol (Miralax) 17 gm PO DAILY [facility] Last Admin: 06/05/17 09:05 Dose: 17 gm Prednisone (Deltasone 20 Mg) 40 mg PO WB [facility] Sodium Chloride (Iv Flush) 10 - 80 ml IVF PRN PRN PRN Reason: Flushing Last Admin: 06/05/17 11:42 Dose: 20 ml Sodium Chloride (Deep Sea Nasal Moisturizing [place]) 1 spray EA NOSTRIL PRN PRN PRN Reason: Congestion Last Admin: 05/19/17 16:37 Dose: 1 spray Sodium Chloride (Normal Saline) 500 ml IV PRN PRN Last Admin: 05/25/17 21:52 Dose: 500 ml Ticagrelor (Brilinta) 90 mg PO Q12H [facility] Last Admin: 06/05/17 09:02 Dose: 90 mg - Urinary Catheter Management Urethral Cath placed during this visit: yes Insertion date: 05/21/17 Results 06/05/17 06:22 06/05/17 06:22 CBC 06/05/17 Range/Units 06:22 WBC 10.9 (4.5-11.0) T/MM3 RBC 3.59 L (4.50-5.90) M/MM3 Hgb 10.8 L (13.5-17.5) GM/DL Hct 34.3 L (41-53) % Plt Count 75 L (130-400) T/MM3 Neut # (Auto) 8.6 H (1.8-7.7) T/MM3 Lymph # (Auto) 1.6 (1-4.8) T/MM3 [place] # (Auto) 0.5 (0-0.8) T/MM3 Eos # (Auto) 0.1 (0-0.5) T/MM3 Baso # (Auto) 0.0 (0-0.2) T/MM3 Comprehensive Metabolic Panel 06/05/17 Range/Units 06:22 Sodium 142 (134-144) MEQ/L Potassium 4.1 (3.6-5) MEQ/L Chloride 102 (98-107) MEQ/L Carbon Dioxide 33 H (22-30) MEQ/L BUN 31.0 H (9-20) MG/DL Creatinine 0.7 L (0.8-1.5) MG/DL Glucose 96 (75-110) MG/DL Calcium 8.7 (8.4-10.2) MG/DL Intake and Output 06/05/17 06/05/17 06/05/17 06:59 14:59 22:59 Intake Total 0 / 0 60 / 60 Output Total 600 / 600 Balance -600 / -600 60 / 60 Intake: Oral 0 / 0 60 / 60 Output: Urine Amount (Catheter) 600 / 600 Other: Urine Appearance Clear Urine Color Dark Yellow Urine Odor Normal Stool Color Brown Stool Consistency Loose Size of Bowel Movement Copious # Bowel Movements 1 # Incontinent Bowel Movements 1 Weight 281 lb 15.539 oz Patient Weight 06/06/17 06:59 Weight 281 lb 15.539 oz Assessment and Plan - Assessment and Plan (1) NSTEMI (non-ST elevated myocardial infarction) Status: Acute (2) Chest pain Status: Acute (3) Community acquired pneumonia Status: Acute (4) Acute and chronic respiratory failure with hypercapnia Status: Acute (5) Atherosclerotic heart disease of [place] coronary artery without angina pectoris Status: Chronic (6) Essential (primary) hypertension Status: Chronic (7) Type 2 diabetes mellitus without complications Status: Chronic (8) Obesity (BMI 30-39.9) Status: Chronic (9) ANGELLA (obstructive sleep apnea) Status: Chronic - Assessment and Plan 05/21/17 Reportedly had severe chest pain, was johnson and diaphoretic as well as tachypneic followed by decreased LOC. - HR 140s, sinus tach vs. A flutter - Given Adenosine 6mg IVP, followed by 12mg X2 without slowing HR. - Sedation given and attempted DCCV which was unsuccessful. - Following 2nd dose of Metoprolol 5mg IV heart rate slowed enough to confirm it is Sinus tachycardia. - Repeat EKG obtained, started on Heparin drip. - Trend Troponin - 2D echo - CTA for emboli/ dissection 05/22/17 NSTEMI: - Troponin: 1) 0.015, 2) 1.500, 3) 3.090, 4) 2.100 - EKG: SR, anterolateral ischemia V3-V6, inferior ischemia II/aVf - Left heart cath when more stable - Continue Heparin drip. HTN: Catapress TTS 1 patch while NPO - Hydralazine prn as ordered - Labetalol prn, hold HR <65 05/23/17 BP improving - EKG now please 05/24/17 Stop Heparin drip, get HIT panel Spoke with pharmacy, start Angiomax at 0.15mg/kg/hr (21.6mg/hr) until HIT panel resulted. Continues to have ST depression on Telemetry and EKG. Add Amlodipine 10mg per OG tube for better BP control 05/27/17 - Plan left heart cath with possible PCI in the am - Stop Angiomax drip - Give Lovenox 1mg/kg SQ tonight - Watch platelets closely 05/29/17 He had a left heart cath yesterday with successful primary stents of LAD using a 2.75 x 18 and another 2.75 x 18 drug-eluting Resolute [place] stents. - Aspirin 81mg daily, Brilinta 90mg BID for dual antiplatelet therapy - Change Simvastatin to Atorvastatin 80mg at HS - Continue to Hold Metformin - Change Atenolol 50mg daily to 25mg BID - Decrease IV Lasix to daily and K+ to daily as BUN is rising and is post cath. 05/30/17 BP remains variable. Consider changing Catapres to an oral agent tomorrow Thank you for allowing us to participate in the care of this patient, we will follow along with you. 05/31/17 Increase Lisinopril to 20mg daily, give additional 10mg now - Leave Catapres as ordered for now 06/03/17 Continues to improve, BP well controlled, Hgb stable. no change in cardiac plan for now 06/04/17 Seen in CCU, expect transfer to surgical unit. Will plan further cardiac intervention after fully recovers from this hospitalization. Hospital Course Summary Disclaimer: The visit summary below is not to be considered part of the above Progress Note. Hospital Course: 05/17/17 Admission Admit to observation status under the care of Dr. Lopez. Sepsis work up initiated in ED. Patient meeting SIRS criteria based on tachycardia, tachypnea and reported fevers at home without obvious source. Initial lactate was 1.4 with repeat lactate decreased to 0.9. Blood cultures pending. WBC stable at 5.0. CXR revealed left basilar scarring without focal pneumonia. Respiratory panel was negative. Patient was given DuoNeb treatments and Solu-Medrol 125mg IV in ED. Will continue respiratory care with DuoNeb treatments QID and Q6H PRN as well as Solu -Medrol 125mg IV Q6H. History of diabetes with A1c on 04/17/17 at 6.4%. Continue home medications and monitor blood sugars closely given treatment with steroids. Sliding scale insulin as indicated for hyperglycemia. Patient was placed on BiPAP in ED with improvement. Continue BiPAP as indicated. Ativan as needed for anxiety and agitation while on BiPAP. Will monitor closely on telemetry with continuous pulse oximetry. Oxygen as needed to maintain SAO2 between 90-95%, weaning as able to baseline of 5L. SCDs for DVT prophylaxis. Given sudden onset of dyspnea, will obtain CT angio chest for further evaluation of PE - results pending. NS at 100cc/hr for hydration given decreased oral intake as on BiPAP. Monitor daily weight closely for signs of fluid overload. Recheck labs in AM to monitor blood counts, electrolytes and renal function. Patient wishes to maintain FULL CODE status. Upon discharge, patient's care will be returned to his PCP, Dr. Odom. 05/18/17 Don reports that his breathing is a little better today and is he is more alert. New cough with sputum production. 1 of the 2 blood cultures obtained on admission is POSITIVE for Streptococcus. Night telehospitalist was notified and Rocephin 2g IV Q24 hours was initiated for antimicrobial coverage. Given new cough, will try and obtain a sputum culture. Mucinex for mucolytic effect. Ricola for cough. Continue respiratory care including nebulized treatments. Continue to encourage BiPAP as indicated and supplemental oxygen to maintain SAO2 between 90 -95%. Wean oxygen to baseline of 5L as able. Given sudden onset of dyspnea, CT angio chest was obtained and revealed no PE but did note 2.2cm left lower lobe pulmonary nodule raising concern for primary lung malignancy and recommended further evaluation. Will discuss consideration of pulmonary consult for further evaluation. Continue Solu-Medrol 125mg IV Q6 hours. Anticipate initiation of tapering in near future. Blood sugars remain elevated, most likely steroid effect, ranging from 160's-> 200. Continue sliding scale insulin. Given recent CT with contrast, will hold metformin and restart 05/19/17. Continue NS at 75cc/hr for hydration. Monitor urinary output and daily weight closely for signs of fluid over load. Oral intake is good. Consider discontinuation of fluids this afternoon. Ativan as needed for anxiety and agitation while on BiPAP. Troponins continue to trend up slowing - 0.015, 0.017, 0.029, 0.045 and 0.048 this morning. Will recheck troponin at 1030 and continue to monitor closely on telemetry. Patient denies chest pain. SCDs for DVT prophylaxis. Recheck labs in AM to monitor blood counts, electrolytes and renal function. Discussed at length with patient and family the importance of smoking cessation. He admits to wanting to stop smoking and inquired about initiation of Chantix. Continue Wellbutrin for smoking cessation. With BC positive and starting IV antibiotics, will change admission status to inpatient. Anticipate greater than 2 midnights of care needed. 05/19/17 Continue with Rocephin for antimicrobial coverage. With lungs still very tight and congested, will continue with Solu-Medrol 125mg IV q 6 hours. Continue Neb treatments and acapella. Encourage use of BiPAP as much as able to help his chronic hypercapnea. Stressed with about the importance of him not smoking. She understand. Will consult with Dr Ashby for pulm evaluation. Will discontinue IVF. May restart metformin this evening. Sugars with elevation secondary to steroids. Did give Diamox 500mg x1 this am for fluid motivation and to help minimize contraction alkalosis. PT/OT to evaluate and initiate treatment tomorrow for his significant pulmonary debility. 05/20 Continue with Rocephin for antimicrobial coverage. One blood culture was positive with streptococcus Viridans, Repeat BC were drawn this morning. Scheduled breathing tx, IV solu-medrol, as well as oxygen and Bipap Appreciate Dr Ashby consultation. Likely require bronchoscopy for biopsy of lung mass. Continue to monitor BGM remain elevated. Metformin was resumed as well as sliding scale insulin. Encourage PT/OT for strengthening 05/21 Resp failure --> ABG shows resp acidosis and he was placed on BiPAP with improvement in color. Repeat ABG shows pH 7.12, pCO2 106, pO2 185. CXR ordered. BG 230. Chest pain --> EKG shows ST changes and widened QRS, poss a-flutter; troponin pending. Dr. Govea consulted. He's had 2 NTG but remains very hypertensive with SBP 220s. Pt failed to respond to adenosine, and subseqently was cardioverted with conversion to sinus tach. Rapid response activated and Dr. Ramírez was at bedside x20 min. Transferred to CCU, where pt was met by Dr. Govea for evaluation. Continue treatment for resp status including steroids and Rocephin. 05/22 Patient remains on a ventilator requiring continuous sedation. Oxygenation borderline on 40% FiO2-oxygen flow increased to 60% by pulmonary earlier today. Continue triple antibiotics (cefepime, Levaquin, vancomycin) pending sputum culture due to extensive pneumonia on CT/chest x-ray yesterday-not present on initial films. Peak troponin 3.09 with diffuse T-wave changes; discussed with Dr. Govea and will require cardiac catheterization in the future. Continue heparin drip. Blood pressure is uncontrolled-clonidine patch initiated earlier, IV hydralazine added as needed for systolic pressures above 180. OG placed-resume statin, SSRI, atenolol, and aspirin. Assess gastric residuals today-anticipate beginning tube feedings tomorrow. Adequate urine output, continue to monitor. Blood sugars remain elevated, off metformin at present. Increase basal insulin. 05/23 Patient remains on a ventilator requiring continuous sedation. Continue triple antibiotics (cefepime, Levaquin, vancomycin); suspect aspiration pneumonia-sputum culture normal charly. Extensive infiltrates on CT chest. Repeat chest x-ray in a.m. Fluid balance positive-roughly 5 L over several days, weight up-diuresis today. Potassium supplemented IV earlier today. Peak troponin 3.09 with diffuse T-wave changes; discussed with Dr. Govea and will require cardiac catheterization in the future. Continue heparin drip. Blood pressure remains elevated but improved from yesterday with addition of clonidine patch and resumption of atenolol per OG. IV hydralazine available as needed for systolic pressures above 180. OG placed 05/22-low volume gastric output overnight and tolerating medications per OG. Will initiate tube feedings with low glycemic formula at 20 mL per hour overnight. Nutrition consult. Blood sugars remain elevated, off metformin at present and on steroids. Increase basal insulin to 40 units anticipating further increase in blood sugar with initiation of tube feedings. 05/24 Remains ventilator dependent. Steroids decreased. Vancomycin discontinued, continue Levaquin and cefepime for probable aspiration pneumonia and Streptococcus viridans positive blood culture. Continue diuresis, blood pressures elevated-atenolol increased and lisinopril initiated to improve control. Tolerating tube feedings at low-volume, converted pulmonary formula with goal of 80 mL per hour. Platelet count dropping, heparin discontinued and bivalirudin initiated. 05/25 Tolerating spontaneous breathing trial, steroids decreased. Continues to require continuous sedation. Lisinopril increased to 20 mg to improve blood pressure control. Platelet count down to 100K; HIT Ab pending. Fevers overnight without evidence source, leukocytosis/left shift resolved improved. Lines to be cultured. 05/26 FiO2 titrated to 40%; diuresing well-continue same. Spontaneous breathing trial planned for the morning with possible extubation at that time. Cardiac status stable, no further tachyarrhythmias. Trend to improved blood pressures. Cardiac catheterization planned in the future. Remains on bivalirudin. Platelet count 86K today, HIT Ab pending. Tube feedings at goal, blood sugars significantly elevated-NovoLog scheduled every 6 hours and when necessary. Chest x-ray improved, remains on Levaquin and cefepime for probable aspiration pneumonia. Blood cultures drawn yesterday negative thus far. 05/27 Extubated this afternoon, OG discontinued in conjunction with extubation. CPAP initiated for respiratory support. Speech therapy, PT, OT consultations tomorrow. Anticipate significant reduction in fluid volume off sedating medications and tube feedings--> Lasix dose decreased to twice daily administration. Platelet count stabilizing, HIT Ab negative. Intermittent fever, remains on antibiotics for possible aspiration pneumonia. Repeat blood cultures negative. 05/29 Extubated 05/27 Placed on CPAP with home equipment. Baseline 5L Currently tolerating NC, oxygen support as needed to maintain sats and mentation , pulm consulted and following CXR-stable Leukocytosis-likely / steroid effect, PCT negative, no fever x48 hours Cefepime and Levaquin currently. Vanc discontinued 05/24. Likely d/c abx today. Will consult ID for abx recs Failed speech therapy Continue tube feeds and meds via Dobhoff Monitor fluid status-hold evening dose of lasix Peak troponin 3.09 on 05/21/17 with diffuse T-wave changes; heart cath 05/28-now on ASA and Bivalirudin Monitor platelet count-currently WNL Monitor BP, adjust medications as needed Monitor glucose and continue insulin as ordered Discussed with nursing staff, and infectious disease 05/30 Extubated 05/27, continue Bipap/NC as per pulm Weaning steroids CXR-improving Leukocytosis Cefepime, Levaquin, Vanc discontinued Continue Tamiflu Failed speech therapy, continue to re-eval Continue tube feeds and meds via Dobhoff, feeds at 40ml/hr, goal of 80ml/hr Discontinue lasix, give 1L NS and re-eval fluid status Continue ASA and Bivalirudin per cardiology 05/31 Failed speech therapy, continue to re-eval Tube feedings and medications per Dobbhoff, goal 80 mL per hour tube feeding. Adjust insulin for hyperglycemia. 06/01 describes increased confusion/irritability-haloperidol initiated as needed. Converting to prednisone per Dobbhoff in a.m.; blood gas with mild hypoxia-FiO2 increased. Continue nutritional support per Dobbhoff; insulins again adjusted for persistent hyperglycemia. Chest pain described overnight, EKG unchanged. 06/02 Complaints of chest pain/dyspnea again this morning-resolved with position change. Intermittent confusion, haloperidol given twice overnight. Persistent hyperglycemia, scheduled short acting insulin adjusted further. Solu-Medrol discontinued, prednisone initiated per Dobbhoff this morning. Lactulose administered per Dobbhoff for ongoing constipation; MiraLAX added with recommendation the patient take it orally. Patient and family advised he will require rehabilitation before discharge home can be entertained. <Francis Govea - Last Filed: 06/13/17 12:51> Exam Vital signs: Temperature 96.4 F L 06/11/17 08:00 Pulse Rate 86 06/11/17 08:00 Respiratory Rate 22 06/11/17 13:45 Blood Pressure 95/53 06/11/17 08:00 Pulse Oximetry 96 06/11/17 14:02 Inpatient Medications: Discontinued Medications Generic Name Dose Route Start Last Admin Trade Name Freq PRN Reason Stop Dose Admin Acetaminophen 325 - 650 mg 05/17/17 10:08 06/01/17 21:51 Tylenol PO 650 mg Q5H PRN Administration Discomfort Acetaminophen 650 mg 05/21/17 15:10 Tylenol Supp DE Q5H PRN Pain Acetaminophen 325 - 650 mg 05/28/17 09:24 Tylenol PO Q5H PRN Pain Hydrocodone Bitart/Acetaminophen 1 tab 05/17/17 21:00 05/31/17 08:42 [place] 7.5/325 PO 1 tab BID KSENIA Administration Hydrocodone Bitart/Acetaminophen 1 tab 05/17/17 10:14 06/06/17 05:37 [place] 7.5/325 PO 1 tab Q6H PRN Administration Pain Hydrocodone Bitart/Acetaminophen 1 - 2 tab 05/28/17 09:24 [place] 5/325 PO Q5H PRN Pain Acetazolamide 500 mg 05/19/17 10:51 05/19/17 11:25 Diamox PO 05/19/17 10:52 500 mg O ONE Administration Adenosine 12 mg 05/21/17 09:17 05/21/17 08:50 Adenocard IVP 05/21/17 09:18 12 mg O ONE Administration Adenosine 6 mg 05/21/17 09:18 05/21/17 09:23 Adenocard IVP 05/21/17 09:19 6 mg O ONE Administration Al Hydroxide/Mg Hydroxide 30 ml 05/28/17 09:24 Maalox Plus PO Q3H PRN Indigestion Albuterol/Ipratropium 6 ml 05/17/17 05:19 02/09/18 05:33 Duoneb AEROSOL 05/17/17 05:20 6 ml O ONE Administration Albuterol/Ipratropium 3 ml 05/17/17 11:00 05/21/17 18:22 Duoneb AEROSOL Not Given RTQID KSENIA Albuterol/Ipratropium 3 ml 05/17/17 10:11 Duoneb AEROSOL RTQID PRN Albuterol/Ipratropium 3 ml 05/21/17 15:15 06/11/17 13:45 Duoneb AEROSOL 3 ml Q4H KSENIA Administration Amlodipine Besylate 10 mg 05/24/17 13:46 06/04/17 09:44 Norvasc PO 10 mg DAILY KSENIA Administration Amlodipine Besylate 5 mg 06/04/17 11:41 06/06/17 10:38 Norvasc PO 5 mg DAILY KSENIA Administration Aspirin 81 mg 05/18/17 09:00 05/23/17 08:26 Asa PO Not Given DAILY [facility] Aspirin 81 mg 05/22/17 16:00 05/31/17 08:42 Asa GT 81 mg DAILY [facility] Administration Aspirin 81 mg 05/28/17 09:24 06/11/17 09:35 Ecotrin PO 81 mg DAILY [facility] Administration Atenolol 25 mg 05/18/17 09:00 05/24/17 08:58 Tenormin PO 25 mg DAILY [facility] Administration Atenolol 50 mg 05/25/17 09:00 05/28/17 12:30 Tenormin PO Not Given DAILY [facility] Atenolol 25 mg 05/24/17 09:40 05/24/17 11:09 Tenormin PO 05/24/17 09:41 25 mg O ONE Administration Atenolol 25 mg 05/29/17 09:00 06/11/17 09:47 Tenormin PO Not Given BID [facility] Atorvastatin Calcium 80 mg 05/28/17 21:00 06/10/17 20:32 Lipitor PO 80 mg HS [facility] Administration Atropine Sulfate 0.5 mg 05/28/17 09:24 Atropine IVP Q5M PRN Bradycardia Benzocaine 1 lozenge 05/20/17 18:54 Cepacol Sore Throat Lozenge MM Q2HR PRN Sore throat Bisacodyl 10 mg 05/27/17 15:11 Dulcolax RECTALLY DAILY PRN Constipation Bisacodyl 5 - 10 mg 05/28/17 09:24 Dulcolax PO DAILY PRN Constipation Bisacodyl 10 mg 05/28/17 09:24 Dulcolax RECTALLY DAILY PRN Constipation Bivalirudin 250 mg 05/24/17 14:15 Angiomax IV NOW KSENIA Budesonide 0.5 mg 05/17/17 19:00 06/11/17 09:02 Pulmicort Inhalation AEROSOL 0.5 mg RTBID KSENIA Administration Bupropion HCl 150 mg 05/17/17 21:00 06/11/17 09:34 Wellbutrin Sr PO 150 mg BID KSENIA Administration Citalopram Hydrobromide 40 mg 05/18/17 09:00 06/11/17 09:34 Celexa PO 40 mg DAILY [facility] Administration Clonidine HCl 0.1 mg 05/22/17 09:00 06/05/17 09:05 Catapres-Tts 1 TD Not Given Q7D@0900 [facility] Clonidine HCl 1 removal 05/29/17 08:59 06/05/17 09:05 Catapres Patch Removal TD 1 removal Q7D KSENIA Administration Enoxaparin Sodium 1 each 05/18/17 10:47 05/18/17 12:54 Pharmacy Consult - Lovenox MC 05/18/17 10:48 1 each O ONE Administration Enoxaparin Sodium 50 mg 05/18/17 11:45 05/20/17 08:37 Lovenox SQ 50 mg DAILY KSENIA Administration Enoxaparin Sodium 142 mg 05/27/17 17:00 05/28/17 09:34 Lovenox SQ 142 mg DAILY [facility] Administration Furosemide 20 mg 05/18/17 09:00 05/20/17 08:37 Lasix PO 20 mg DAILY [facility] Administration Furosemide 40 mg 05/21/17 09:37 05/21/17 09:45 Lasix IVP 05/21/17 09:38 40 mg ONCE ONE Administration Furosemide 20 mg 05/23/17 21:00 05/24/17 08:59 Lasix IVP 20 mg Q12HR KSENIA Administration Furosemide 20 mg 05/24/17 17:00 05/27/17 09:31 Lasix IVP 20 mg Q8HR KSEN[facility] Administration Furosemide 20 mg 05/27/17 21:00 05/29/17 08:09 Lasix IVP 20 mg Q12H [facility] Administration Furosemide 20 mg 05/29/17 09:00 Lasix IVP DAILY [facility] Gabapentin 300 mg 05/17/17 15:00 06/11/17 09:31 Neurontin PO 300 mg TID KSENIA Administration Glucose 37.5 gm 05/17/17 10:12 Glutose 15 PO PRN PRN Hypoglycemia Guaifenesin 1,200 mg 05/18/17 09:00 05/29/17 08:14 Mucinex La PO Not Given BID KSENIA Guaifenesin 400 mg 05/29/17 12:00 06/11/17 05:51 Robitussin Liq PO Not Given Q6H KSEN[facility] Haloperidol 1 mg 06/03/17 20:30 Haldol PO Q4H PRN Haloperidol Decanoate 1 mg 06/01/17 17:43 06/02/17 17:00 Haldol Liquid GT 1 mg Q4H PRN Administration Heparin Sodium (Beef Lung) 5,000 unit 05/21/17 09:23 05/21/17 10:07 Heparin Bolus IVP 05/21/17 09:24 5,000 unit O ONE Administration Heparin Sodium (Beef Lung) 3,000 unit 05/21/17 17:45 05/21/17 17:53 Heparin Bolus IVP 05/21/17 17:46 3,000 unit O ONE Administration Heparin Sodium (Beef Lung) 3,000 unit 05/22/17 03:37 05/22/17 03:46 Heparin Bolus IVP 05/22/17 03:38 3,000 unit O ONE Administration Heparin Sodium (Porcine) 1 each 05/21/17 09:08 Pharmacy Consult - Heparin 05/21/17 09:09 ONE TIME ONE Hydralazine HCl 5 mg 05/22/17 08:47 05/22/17 10:09 Apresoline IVP 5 mg Q6H PRN Administration Hypertension Hydralazine HCl 10 mg 05/22/17 15:01 05/28/17 06:06 Apresoline IVP 10 mg Q4H PRN Administration Hypertension Sodium Chloride 1,000 mls @ 999.9 mls/hr 05/17/17 05:44 05/17/17 11:20 Normal Saline IV 05/17/17 06:43 Infused .Q1H ONE Infusion Sodium Chloride 1,000 mls @ 75 mls/hr 05/17/17 10:08 05/19/17 11:19 Normal Saline IV Infused .[id number] KSENIA Infusion Ceftriaxone Sodium 2 gm/ 100 mls @ 200 mls/hr 05/18/17 01:15 05/18/17 01:50 Sodium Chloride IV Infused Q24H KSENIA Infusion Ceftriaxone Sodium 2 gm/ 50 mls @ 100 mls/hr 05/18/17 21:00 05/20/17 21:55 Sodium Chloride IV Infused Q24H KSENIA Infusion Heparin Sodium (Porcine) 20,000 unit in 500 mls @ 44 mls/hr 05/21/17 09:30 13:17 Heparin Drip IV Infused .[id number] KSENIA Titration Protocol Dexmedetomidine HCl 200 mcg/ 52 mls @ 6.87 mls/hr 05/21/17 09:52 05/21/17 20: 00 Sodium Chloride IV 05/21/17 20:29 0 mcg/kg/hr .Q7H35M PRN 0 mls/hr Protocol Titration 0.2 MCG/KG/HR Propofol 1,000 mg in 100 mls @ 3.969 mls/hr 05/21/17 10:39 05/21/17 14:28 Diprivan IV 0 mcg/kg/min .Q24H PRN 0 mls/hr Protocol Infusion 5 MCG/KG/MIN Fentanyl 1,000 mcg/ Sodium 100 mls @ 0 mls/hr 05/21/17 13:02 05/27/17 14:45 Chloride IV Infused .Q0M PRN Titration Protocol Per Protocol Sodium Chloride 250 mls @ 999.9 mls/hr 05/21/17 13:15 05/21/17 14:28 Normal Saline IV 05/21/17 13:29 Infused .Q15M KSENIA Infusion Cefepime HCl 1 gm/ Sodium 50 mls @ 100 mls/hr 05/21/17 15:30 05/29/17 10:46 Chloride IV Infused Q6H [facility] Infusion Levofloxacin/Dextrose 750 mg in 150 mls @ 100 mls/hr 05/21/17 16:00 05/28/17 17:15 Levaquin Premix IV Infused Q24H KSEN[facility] Infusion Vancomycin HCl 1,500 mg/ 500 mls @ 250 mls/hr 05/21/17 18:00 05/24/17 12:15 Sodium Chloride IV Infused Q8H KSENIA Infusion Dexmedetomidine HCl 1,000 mcg/ 260 mls @ 6.87 mls/hr 05/21/17 20:30 05/27/17 14:45 Sodium Chloride IV 05/27/17 14:45 Infused .Q24H PRN Titration Protocol 0.2 MCG/KG/HR Potassium Chloride 10 meq in 100 mls @ 100 mls/hr 05/23/17 09:45 05/23/17 17: 34 Potassium Chloride Premix IV 05/23/17 13:44 Infused Q1H KSENIA Infusion Heparin Sodium (Porcine) 20,000 unit in 500 mls @ 45 mls/hr 05/23/17 16:00 06:16 Heparin Drip IV Not Given .Q11H7M KSENIA Protocol Potassium Chloride 10 meq in 100 mls @ 100 mls/hr 05/24/17 09:45 05/24/17 15: 56 Potassium Chloride Premix IV 05/24/17 13:44 Not Given Q1H KSENIA Potassium Chloride 10 meq/ 105 mls @ 105 mls/hr 05/24/17 11:45 05/24/17 17:00 Sodium Chloride IV 05/24/17 15:44 Infused Q1H KSENIA Infusion Bivalirudin 250 mg/ Sodium 500 mls @ 43.2 mls/hr 05/24/17 15:15 05/27/17 17: 34 Chloride IV Not Given .[id number] KSENIA Sodium Chloride 1,000 mls @ 75 mls/hr 05/28/17 07:45 05/28/17 14:00 Normal Saline IV Infused .[id number] KSENIA Infusion Sodium Chloride 1,000 mls @ 500 mls/hr 05/30/17 10:14 05/30/17 10:41 Normal Saline IV 05/30/17 12:13 500 mls/hr .Q2H ONE Administration Sodium Chloride 1,000 mls @ 60 mls/hr 05/30/17 17:00 05/31/17 06:00 Normal Saline IV 05/31/17 09:39 60 mls/hr .[id number] KSENIA Infusion Insulin Aspart 1 - 5 unit 05/17/17 10:12 05/18/17 06:06 Novolog SQ 2 unit SS PRN Administration Hyperglycemia Protocol Insulin Aspart 2 - 8 unit 05/18/17 08:22 05/21/17 07:30 Novolog SQ 3 unit SS PRN Administration Hyperglycemia Protocol Insulin Aspart 15 unit 05/20/17 10:32 05/20/17 10:36 Novolog SQ 05/20/17 10:33 15 unit ONE TIME ONE Administration Insulin Aspart 2 - 14 unit 05/21/17 11:43 06/10/17 20:31 Novolog SQ 10 unit SS PRN Administration Hyperglycemia Protocol Insulin Aspart 10 unit 05/26/17 12:00 05/26/17 13:54 Novolog SQ Not Given Q6H KSENIA Insulin Aspart 10 unit 05/26/17 15:00 05/27/17 21:06 Novolog SQ Not Given 0300,0900,1500,2100 KSENIA Insulin Aspart 10 unit 05/28/17 15:00 Novolog SQ Q6HR KSENIA Insulin Aspart 10 unit 05/28/17 18:00 05/31/17 06:11 Novolog SQ 10 unit Q6H KSENIA Administration Insulin Aspart 12 unit 05/31/17 08:41 06/03/17 19:14 Novolog SQ Not Given Q6H KSENIA Insulin Aspart 15 unit 06/01/17 15:00 06/02/17 10:37 Novolog SQ Not Given Q6H KS[facility]IA Insulin Aspart 18 unit 06/02/17 09:58 06/03/17 17:37 Novolog SQ 18 unit Q6H KSENIA Administration Insulin Glargine 10 unit 05/21/17 21:00 05/21/17 20:14 Lantus SQ 10 unit HS KSENIA Administration Insulin Glargine 20 unit 05/22/17 21:00 05/22/17 20:14 Lantus SQ 20 unit HS KSENIA Administration Insulin Glargine 40 unit 05/23/17 21:00 05/30/17 21:34 Lantus SQ 40 unit HS KSENIA Administration Insulin Glargine 50 unit 05/31/17 08:41 05/31/17 21:06 Lantus SQ 50 unit HS KSENIA Administration Insulin Glargine 60 unit 06/01/17 21:00 06/02/17 20:23 Lantus SQ 60 unit HS KSENIA Administration Insulin Glargine 30 unit 06/03/17 21:00 06/10/17 20:31 Lantus SQ 30 unit HS KSENIA Administration Labetalol HCl 10 mg 05/21/17 20:40 05/22/17 06:05 Trandate IVP 10 mg Q4H PRN Administration INCREASED blood pressure Lactulose 20 gm 06/02/17 10:00 06/02/17 11:09 Lactulose PO 06/02/17 10:01 20 gm O ONE Administration Lidocaine HCl 15 ml 06/08/17 18:06 Xylocaine Viscous 2% PO Q6HR PRN Lidocaine HCl 5 ml 06/11/17 09:38 Magic Mouthwash (Lido/Maalox/Carafate) PO Q4H PRN Lisinopril 10 mg 05/24/17 16:15 05/31/17 08:42 Prinivil PO 10 mg DAILY KSENIA Administration Lisinopril 10 mg 05/31/17 15:18 05/31/17 15:43 Prinivil PO 05/31/17 15:19 10 mg O ONE Administration Lisinopril 20 mg 06/01/17 09:00 06/04/17 09:45 Prinivil PO 20 mg DAILY KSENIA Administration Lisinopril 10 mg 06/05/17 09:00 06/10/17 08:14 Prinivil PO Not Given DAILY [facility]IA Lisinopril 2.5 mg 06/11/17 09:00 06/11/17 09:48 Prinivil PO Not Given DAILY [facility] Lorazepam 1 mg 05/17/17 06:16 05/17/17 06:56 Ativan PO 05/17/17 06:17 1 mg O ONE Administration Lorazepam 0.5 mg 05/17/17 10:13 05/24/17 15:55 Ativan Inj IVP 0.5 mg Q6H PRN Administration Lorazepam 1 mg 05/24/17 19:46 05/31/17 01:43 Ativan Inj IVP 1 mg Q2H PRN Administration Agitation/Air hunger/Pain Lorazepam 0.5 - 1 mg 05/28/17 09:24 06/10/17 22:22 Ativan PO 0.5 mg Q4H PRN Administration Anxiety Lorazepam 0.5 - 1 mg 05/28/17 09:24 Ativan Inj IVP Q4H PRN Anxiety Magnesium Hydroxide 30 ml 05/26/17 12:41 05/26/17 13:53 Mom GT 05/26/17 12:42 30 ml O ONE Administration Magnesium Hydroxide 30 ml 05/28/17 09:24 Mom PO DAILY PRN Constipation Menthol 1 lozenge 05/18/17 08:19 Ricola Sf MM PRN PRN Cough Metformin HCl 500 mg 05/17/17 17:30 05/18/17 10:00 Glucophage PO Not Given BIDWM KSENIA Metformin HCl 500 mg 05/19/17 09:00 05/21/17 10:52 Glucophage PO Not Given BIDWM KSENIA Metformin HCl 500 mg 06/10/17 17:30 06/11/17 09:33 Glucophage PO 500 mg BIDWM KSENIA Administration Methylprednisolone Sodium Succinate 125 mg 05/17/17 06:26 05/17/17 06:53 Solu-Medrol IM 05/17/17 06:27 125 mg O ONE Administration Methylprednisolone Sodium Succinate 125 mg 05/17/17 15:00 05/20/17 08:37 Solu-Medrol IVP 125 mg Q6HR KSENIA Administration Methylprednisolone Sodium Succinate 80 mg 05/20/17 15:00 05/24/17 08:57 Solu-Medrol IVP 80 mg Q6HR KSENIA Administration Methylprednisolone Sodium Succinate 80 mg 05/24/17 17:00 05/26/17 08:23 Solu-Medrol IVP 80 mg Q8HR KSENIA Administration Methylprednisolone Sodium Succinate 80 mg 05/26/17 21:00 05/29/17 08:15 Solu-Medrol IVP 80 mg Q12HR KSENIA Administration Methylprednisolone Sodium Succinate 60 mg 05/29/17 21:00 06/01/17 21:57 Solu-Medrol IVP 06/02/17 04:00 60 mg Q12HR KSEINA Administration Metoclopramide HCl 5 mg 05/23/17 17:30 05/30/17 10:42 Reglan GT 5 mg Q6H KSENIA Administration Metoclopramide HCl 5 - 10 mg 05/28/17 09:24 Reglan IVP Q6H PRN Nausea &/or vomiting Metoclopramide HCl 5 mg 05/30/17 14:00 06/03/17 23:15 Reglan GT Not Given Q6H KSENIA Metoprolol Tartrate 15 mg 05/21/17 09:18 05/21/17 09:05 Lopressor IVP 05/21/17 09:19 15 mg ONCE ONE Administration Metoprolol Tartrate 5 mg 05/28/17 10:01 05/28/17 10:00 Lopressor IVP 05/28/17 10:02 5 mg ONCE ONE Administration Morphine Sulfate 1 - 2 mg 05/17/17 10:08 05/24/17 17:56 Morphine Sulfate Inj IVP 2 mg Q2H PRN Administration Pain Morphine Sulfate 2 - 4 mg 05/28/17 09:24 05/28/17 10:17 Morphine Sulfate Inj IVP 05/29/17 09:23 4 mg Q2H PRN Administration Pain Morphine Sulfate 2 - 4 mg 05/28/17 09:24 06/02/17 08:19 Morphine Sulfate Inj IVP 2 mg Q5M PRN Administration Angina Neomycin/Polymyxin/Bacitracin 1 applic 06/06/17 13:00 06/06/17 13:10 Neosporin TP 06/06/17 13:01 1 applic O ONE Administration Nitroglycerin 0.4 mg 05/17/17 10:14 05/21/17 08:35 Nitrostat SL 0.4 mg Q5MIN3 PRN Administration CP Nitroglycerin 0.4 mg 05/28/17 09:24 Nitrostat SL Q5M PRN Angina Nitroglycerin 0.4 mg 05/31/17 23:49 06/02/17 08:11 Nitrostat SL 0.4 mg Q5M PRN Administration Chest pain --Pom--(Itraconazole 200 mg 05/17/17 21:00 05/29/17 09:39 [Itraconazole] 200 PO Not Given Mg) BID [facility] Nystatin 5 ml 06/03/17 21:00 06/11/17 09:48 Mycostatin PO 06/13/17 20:59 Not Given QID [facility] Omeprazole 40 mg 05/18/17 06:30 06/11/17 05:52 Prilosec PO Not Given ACB [facility] Ondansetron HCl 4 mg 05/17/17 10:08 05/19/17 02:45 Zofran IVP 4 mg Q6H PRN Administration Nausea &/or vomiting Ondansetron HCl 4 mg 05/28/17 09:24 Zofran IVP Q6H PRN Nausea &/or vomiting Oseltamivir Phosphate 75 mg 05/29/17 21:00 06/03/17 09:27 Tamiflu 06/03/17 09:01 75 mg BID [facility] Administration Pantoprazole Sodium 40 mg 05/22/17 09:00 05/31/17 08:44 Protonix Iv IVP 40 mg DAILY KSENIA Administration Pharmacy Consult 1 each 05/17/17 10:32 Pharmacy Consult - Fall Risk XX 05/17/17 10:33 ONE TIME ONE Pharmacy Consult 1 each 05/27/17 10:17 Pharmacy Consult - Fall Risk XX 05/27/17 10:18 ONE TIME ONE Pharmacy Consult 1 each 06/05/17 10:03 Pharmacy Consult - Fall Risk XX 06/05/17 10:04 ONE TIME ONE Polyethylene Glycol 17 gm 06/03/17 09:00 06/11/17 09:49 Miralax PO Not Given DAILY KSENIA Potassium Chloride 40 meq 05/24/17 18:10 05/26/17 06:13 Kcl Oral Liq 20 Meq/15 Ml PO Not Given BIDWM KSENIA Potassium Chloride 40 meq 05/25/17 13:00 05/26/17 08:22 Kcl Oral Liq 20 Meq/15 Ml PO 40 meq QID KSENIA Administration Potassium Chloride 40 meq 05/26/17 12:00 05/27/17 12:04 Kcl Oral Liq 20 Meq/15 Ml PO 40 meq TIDWM KSENIA Administration Potassium Chloride 40 meq 05/27/17 17:30 05/29/17 07:59 Kcl Oral Liq 20 Meq/15 Ml PO 40 meq BIDWM KSENIA Administration Potassium Chloride 40 meq 05/29/17 09:00 05/30/17 08:42 Kcl Oral Liq 20 Meq/15 Ml PO 40 meq DAILY KSENIA Administration Prednisone 60 mg 06/02/17 08:00 06/03/17 09:20 Deltasone 20 Mg PO 60 mg WB KSENIA Administration Prednisone 50 mg 06/03/17 11:15 06/05/17 09:02 Deltasone 50 Mg PO 50 mg WB KSENIA Administration Prednisone 40 mg 06/06/17 08:00 06/10/17 08:20 Deltasone 20 Mg PO 40 mg WB KSENIA Administration Prednisone 30 mg 06/11/17 08:00 06/11/17 09:34 Deltasone 20 Mg PO 30 mg WB KSENIA Administration Promethazine HCl 12.5 - 25 mg 05/28/17 09:24 Phenergan Inj IVP Q6HR PRN Nausea &/or vomiting Simvastatin 20 mg 05/17/17 21:00 05/27/17 20:36 Zocor PO Not Given HS KSENIA Sodium Chloride 10 - 80 ml 05/17/17 05:20 06/05/17 11:42 Iv Flush IVF 20 ml PRN PRN Administration Flushing Sodium Chloride 1 spray 05/19/17 11:42 05/19/17 16:37 Deep Sea Nasal Moisturizing [place] EA NOSTRIL 1 spray PRN PRN Administration Congestion Sodium Chloride 500 ml 05/25/17 21:40 05/25/17 21:52 Normal Saline IV 500 ml PRN PRN Administration Throat Lozenges 3 spray 06/08/17 22:18 06/08/17 23:11 Chloraseptic [place] PO 3 spray Q2H PRN Administration Ticagrelor 90 mg 05/28/17 21:01 06/11/17 09:34 Brilinta PO 90 mg Q12H KSENIA Administration Vancomycin HCl 1 each 05/21/17 15:19 05/21/17 15:53 Pharmacy Consult - Vancomycin MC 05/21/17 15:20 1 each O ONE Administration - Urinary Catheter Management Urethral Cath placed during this visit: no Results 06/09/17 05:02 06/09/17 05:02 Assessment and Plan - Assessment and Plan (1) Community acquired pneumonia Status: Acute (2) Acute and chronic respiratory failure with hypercapnia Status: Acute (3) Chest pain Status: Acute (4) Atherosclerotic heart disease of [place] coronary artery without angina pectoris Status: Chronic (5) Essential (primary) hypertension Status: Chronic (6) Type 2 diabetes mellitus without complications Status: Chronic (7) Obesity (BMI 30-39.9) Status: Chronic (8) ANGELLA (obstructive sleep apnea) Status: Chronic (9) NSTEMI (non-ST elevated myocardial infarction) Status: Acute - Attestation Attestation Narrative: 06/13/17 12:51 Recommendation After examining the patient I agree with the above assessment. I am involved in the formulation of the patient's plan of care. Hospital Course Summary Disclaimer: The visit summary below is not to be considered part of the above Progress Note.
--- NOTE | 2017-06-05 20:44 | Progress Note ---
- Date 06/05/17 Subjective: Patient up to chair. No complaint except about plans for going to SNU. Seems to understand he's not able to go home yet, but resistant to plans to help him continue rehab. Objective Vital signs: Temperature 96.8 F 06/05/17 15:00 Pulse Rate 76 06/05/17 16:58 Respiratory Rate 18 06/05/17 19:25 Blood Pressure 107/63 06/05/17 15:00 Pulse Oximetry 99 06/05/17 19:25 Rhythm: Normal Sinus Rhythm Height/Weight/BMI: Height 6 ft 0.83 in Weight 127.9 kg Body Mass Index 41.5 - Constitutional Present: no acute distress - Routine HEENT Exam Head: Present: normocephalic, atraumatic Eye: Present: EOMI, PERRL - Routine Respiratory Exam Present: CTA bilaterally - Routine Cardiovascular Exam Present: RRR - Routine Abdominal Exam Present: soft, non distended, non tender - Routine Musculoskeletal Exam Musculoskeletal: Present: no clubbing or cyanosis - Routine Neurological Exam Present: alert - Routine Psychiatric Exam Absent: good insight Results - Labs CBC & Chem 7: 06/05/17 06:22 06/05/17 06:22 Microbiology Results: Microbiology 05/25/17 15:49 Midline Blood Culture - Final No Growth After 5 Days 05/25/17 15:43 Port/Picc Blood Culture - Final No Growth After 5 Days 05/20/17 04:36 Midline Blood Culture - Final No Growth After 5 Days 05/20/17 04:36 Midline Blood Culture - Final No Growth After 5 Days 05/21/17 13:45 Sputum, Expectorated Gram Stain - Final 05/21/17 13:45 Sputum, Expectorated Sputum Culture - Final Yeast, not C. albicans Normal Respiratory Charly - ABG Interpretation ABG results: 06/04/17 07:40 ABG pH 7.431 ABG pCO2 47 H ABG pO2 70 L ABG HCO3 31.0 H ABG Total CO2 33.0 H ABG O2 Saturation 94.0 L ABG Base Excess 6.0 H Assessment and Plan (1) Acute exacerbation of chronic obstructive airways disease Current visit: Yes Status: Acute (2) Acute and chronic respiratory failure with hypercapnia Current visit: Yes Status: Acute (3) NSTEMI (non-ST elevated myocardial infarction) Current visit: Yes Status: Acute Assessment and Plan: Assessment Acute on chronic respiratory failure with hypercapnia and hypoxia - baseline home oxygen at 5L; intubated 05/21-extubated on 05/27, now on Bipap/NC Leukocytosis-trending down NSTEMI-peak troponin 3.09, diffuse T changes, s/p heart cath with 2 stents 05/28 COPD exacerbation Transaminitis Influenza A Hyperglycemia Alerted Mental Status Thrombocytopenia Constipation suspect orthostatic hypotension Resolved Bilateral lower lobe pneumonia Bacteremia Fever Hypokalemia Wide complex tachycardia s/p cardioversion Dehydration Chronic Medical: Cardiomyopathy-EF 30% by echo 05/21/17 Pulmonary nodule - Irregular 2.2cm left lower lobe pulmonary nodule Anemia, unspecified, stable Coronary Artery Disease Hypertension Sleep Apnea Diabetes Mellitus Type 2 - A1c on 04/17/17 was 6.4% GERD Osteoarthritis Peripheral neuropathy Fibromyalgia Depression Tobacco dependency Peripheral vascular disease Morbid obesity - BMI >40 Plan Extubated 05/27, continue Bipap/NC-5 L as per pulm. IV steroids converted to prednisone 06/02-dosed decreased by pulmonary earlier today. Tamiflu for influenza A-initiated 05/29; course completed. Soft diet with ground meats with regular liquids per speech therapy. Insulin doses decreased significantly given discontinuation of tube feedings. Blood sugars down. Now eating more. Monitor. Continue corrective scale. Continue ASA and Bivalirudin per cardiology; also on beta jesenia and atorvastatin. Continue to work with PT/OT/Speech On usual doses of Wellbutrin and citalopram. Has Ativan and haloperidol available if needed for anxiety or delirium. Bladder training initiated although do not believe patient will be ready to DC [place] in the immediate future. Decreased amlodipine and lisinopril. Recommended he reconsider SNU. - Physician Narrative Narrative: Date: 06/05/17 Time: 2040 Hospital Course Summary Disclaimer: The visit summary below is not to be considered part of the above Progress Note. Hospital Course: 05/17/17 Admission Admit to observation status under the care of Dr. Lopez. Sepsis work up initiated in ED. Patient meeting SIRS criteria based on tachycardia, tachypnea and reported fevers at home without obvious source. Initial lactate was 1.4 with repeat lactate decreased to 0.9. Blood cultures pending. WBC stable at 5.0. CXR revealed left basilar scarring without focal pneumonia. Respiratory panel was negative. Patient was given DuoNeb treatments and Solu-Medrol 125mg IV in ED. Will continue respiratory care with DuoNeb treatments QID and Q6H PRN as well as Solu -Medrol 125mg IV Q6H. History of diabetes with A1c on 04/17/17 at 6.4%. Continue home medications and monitor blood sugars closely given treatment with steroids. Sliding scale insulin as indicated for hyperglycemia. Patient was placed on BiPAP in ED with improvement. Continue BiPAP as indicated. Ativan as needed for anxiety and agitation while on BiPAP. Will monitor closely on telemetry with continuous pulse oximetry. Oxygen as needed to maintain SAO2 between 90-95%, weaning as able to baseline of 5L. SCDs for DVT prophylaxis. Given sudden onset of dyspnea, will obtain CT angio chest for further evaluation of PE - results pending. NS at 100cc/hr for hydration given decreased oral intake as on BiPAP. Monitor daily weight closely for signs of fluid overload. Recheck labs in AM to monitor blood counts, electrolytes and renal function. Patient wishes to maintain FULL CODE status. Upon discharge, patient's care will be returned to his PCP, Dr. Odom. 05/18/17 Don reports that his breathing is a little better today and is he is more alert. New cough with sputum production. 1 of the 2 blood cultures obtained on admission is POSITIVE for Streptococcus. Night telehospitalist was notified and Rocephin 2g IV Q24 hours was initiated for antimicrobial coverage. Given new cough, will try and obtain a sputum culture. Mucinex for mucolytic effect. Ricola for cough. Continue respiratory care including nebulized treatments. Continue to encourage BiPAP as indicated and supplemental oxygen to maintain SAO2 between 90 -95%. Wean oxygen to baseline of 5L as able. Given sudden onset of dyspnea, CT angio chest was obtained and revealed no PE but did note 2.2cm left lower lobe pulmonary nodule raising concern for primary lung malignancy and recommended further evaluation. Will discuss consideration of pulmonary consult for further evaluation. Continue Solu-Medrol 125mg IV Q6 hours. Anticipate initiation of tapering in near future. Blood sugars remain elevated, most likely steroid effect, ranging from 160's-> 200. Continue sliding scale insulin. Given recent CT with contrast, will hold metformin and restart 05/19/17. Continue NS at 75cc/hr for hydration. Monitor urinary output and daily weight closely for signs of fluid over load. Oral intake is good. Consider discontinuation of fluids this afternoon. Ativan as needed for anxiety and agitation while on BiPAP. Troponins continue to trend up slowing - 0.015, 0.017, 0.029, 0.045 and 0.048 this morning. Will recheck troponin at 1030 and continue to monitor closely on telemetry. Patient denies chest pain. SCDs for DVT prophylaxis. Recheck labs in AM to monitor blood counts, electrolytes and renal function. Discussed at length with patient and family the importance of smoking cessation. He admits to wanting to stop smoking and inquired about initiation of Chantix. Continue Wellbutrin for smoking cessation. With BC positive and starting IV antibiotics, will change admission status to inpatient. Anticipate greater than 2 midnights of care needed. 05/19/17 Continue with Rocephin for antimicrobial coverage. With lungs still very tight and congested, will continue with Solu-Medrol 125mg IV q 6 hours. Continue Neb treatments and acapella. Encourage use of BiPAP as much as able to help his chronic hypercapnea. Stressed with about the importance of him not smoking. She understand. Will consult with Dr Ashby for pulm evaluation. Will discontinue IVF. May restart metformin this evening. Sugars with elevation secondary to steroids. Did give Diamox 500mg x1 this am for fluid motivation and to help minimize contraction alkalosis. PT/OT to evaluate and initiate treatment tomorrow for his significant pulmonary debility. 05/20 Continue with Rocephin for antimicrobial coverage. One blood culture was positive with streptococcus Viridans, Repeat BC were drawn this morning. Scheduled breathing tx, IV solu-medrol, as well as oxygen and Bipap Appreciate Dr Ashby consultation. Likely require bronchoscopy for biopsy of lung mass. Continue to monitor BGM remain elevated. Metformin was resumed as well as sliding scale insulin. Encourage PT/OT for strengthening 05/21 Resp failure --> ABG shows resp acidosis and he was placed on BiPAP with improvement in color. Repeat ABG shows pH 7.12, pCO2 106, pO2 185. CXR ordered. BG 230. Chest pain --> EKG shows ST changes and widened QRS, poss a-flutter; troponin pending. Dr. Govea consulted. He's had 2 NTG but remains very hypertensive with SBP 220s. Pt failed to respond to adenosine, and subseqently was cardioverted with conversion to sinus tach. Rapid response activated and Dr. Ramírez was at bedside x20 min. Transferred to CCU, where pt was met by Dr. Govea for evaluation. Continue treatment for resp status including steroids and Rocephin. 05/22 Patient remains on a ventilator requiring continuous sedation. Oxygenation borderline on 40% FiO2-oxygen flow increased to 60% by pulmonary earlier today. Continue triple antibiotics (cefepime, Levaquin, vancomycin) pending sputum culture due to extensive pneumonia on CT/chest x-ray yesterday-not present on initial films. Peak troponin 3.09 with diffuse T-wave changes; discussed with Dr. Govea and will require cardiac catheterization in the future. Continue heparin drip. Blood pressure is uncontrolled-clonidine patch initiated earlier, IV hydralazine added as needed for systolic pressures above 180. OG placed-resume statin, SSRI, atenolol, and aspirin. Assess gastric residuals today-anticipate beginning tube feedings tomorrow. Adequate urine output, continue to monitor. Blood sugars remain elevated, off metformin at present. Increase basal insulin. 05/23 Patient remains on a ventilator requiring continuous sedation. Continue triple antibiotics (cefepime, Levaquin, vancomycin); suspect aspiration pneumonia-sputum culture normal charly. Extensive infiltrates on CT chest. Repeat chest x-ray in a.m. Fluid balance positive-roughly 5 L over several days, weight up-diuresis today. Potassium supplemented IV earlier today. Peak troponin 3.09 with diffuse T-wave changes; discussed with Dr. Govea and will require cardiac catheterization in the future. Continue heparin drip. Blood pressure remains elevated but improved from yesterday with addition of clonidine patch and resumption of atenolol per OG. IV hydralazine available as needed for systolic pressures above 180. OG placed 05/22-low volume gastric output overnight and tolerating medications per OG. Will initiate tube feedings with low glycemic formula at 20 mL per hour overnight. Nutrition consult. Blood sugars remain elevated, off metformin at present and on steroids. Increase basal insulin to 40 units anticipating further increase in blood sugar with initiation of tube feedings. 05/24 Remains ventilator dependent. Steroids decreased. Vancomycin discontinued, continue Levaquin and cefepime for probable aspiration pneumonia and Streptococcus viridans positive blood culture. Continue diuresis, blood pressures elevated-atenolol increased and lisinopril initiated to improve control. Tolerating tube feedings at low-volume, converted pulmonary formula with goal of 80 mL per hour. Platelet count dropping, heparin discontinued and bivalirudin initiated. 05/25 Tolerating spontaneous breathing trial, steroids decreased. Continues to require continuous sedation. Lisinopril increased to 20 mg to improve blood pressure control. Platelet count down to 100K; HIT Ab pending. Fevers overnight without evidence source, leukocytosis/left shift resolved improved. Lines to be cultured. 05/26 FiO2 titrated to 40%; diuresing well-continue same. Spontaneous breathing trial planned for the morning with possible extubation at that time. Cardiac status stable, no further tachyarrhythmias. Trend to improved blood pressures. Cardiac catheterization planned in the future. Remains on bivalirudin. Platelet count 86K today, HIT Ab pending. Tube feedings at goal, blood sugars significantly elevated-NovoLog scheduled every 6 hours and when necessary. Chest x-ray improved, remains on Levaquin and cefepime for probable aspiration pneumonia. Blood cultures drawn yesterday negative thus far. 05/27 Extubated this afternoon, OG discontinued in conjunction with extubation. CPAP initiated for respiratory support. Speech therapy, PT, OT consultations tomorrow. Anticipate significant reduction in fluid volume off sedating medications and tube feedings--> Lasix dose decreased to twice daily administration. Platelet count stabilizing, HIT Ab negative. Intermittent fever, remains on antibiotics for possible aspiration pneumonia. Repeat blood cultures negative. 05/29 Extubated 05/27 Placed on CPAP with home equipment. Baseline 5L Currently tolerating NC, oxygen support as needed to maintain sats and mentation , pulm consulted and following CXR-stable Leukocytosis-likely 2/2 steroid effect, PCT negative, no fever x48 hours Cefepime and Levaquin currently. Vanc discontinued 05/24. Likely d/c abx today. Will consult ID for abx recs Failed speech therapy Continue tube feeds and meds via [place] Monitor fluid status-hold evening dose of lasix Peak troponin 3.09 on 05/21/17 with diffuse T-wave changes; heart cath 05/28-now on ASA and Bivalirudin Monitor platelet count-currently WNL Monitor BP, adjust medications as needed Monitor glucose and continue insulin as ordered Discussed with nursing staff, and infectious disease 05/30 Extubated 05/27, continue Bipap/NC as per pulm Weaning steroids CXR-improving Leukocytosis Cefepime, Levaquin, Vanc discontinued Continue Tamiflu Failed speech therapy, continue to re-eval Continue tube feeds and meds via [place], feeds at 40ml/hr, goal of 80ml/hr Discontinue lasix, give 1L NS and re-eval fluid status Continue ASA and Bivalirudin per cardiology 05/31 Failed speech therapy, continue to re-eval Tube feedings and medications per [place], goal 80 mL per hour tube feeding. Adjust insulin for hyperglycemia. 06/01 describes increased confusion/irritability-haloperidol initiated as needed. Converting to prednisone per [place] in a.m.; blood gas with mild hypoxia-FiO2 increased. Continue nutritional support per [place]; insulins again adjusted for persistent hyperglycemia. Chest pain described overnight, EKG unchanged. 06/02 Complaints of chest pain/dyspnea again this morning-resolved with position change. Intermittent confusion, haloperidol given twice overnight. Persistent hyperglycemia, scheduled short acting insulin adjusted further. Solu-Medrol discontinued, prednisone initiated per [place] this morning. Lactulose administered per [place] for ongoing constipation; MiraLAX added with recommendation the patient take it orally. Patient and family advised he will require rehabilitation before discharge home can be entertained.
[2017-06-05] MEDS: ATORVASTATIN 40 MG TABLET PO SCH (22:04)
[2017-06-05] MEDS: INSULIN GLARGINE 100unit/ml INJECTION SQ SCH (22:13)
[2017-06-06] MEDS: ALBUTEROL/IPRATROPIUM 2.5mg-0.5mg/3ml NEB AEROSOL SCH ×5 (04:42→22:20)
[2017-06-06] MEDS: HYDROCODONE/APAP 7.5 MG/325 MG TABLET PO PRN (05:37)
[2017-06-06] MEDS: OMEPRAZOLE 20 MG CAPSULE PO SCH (05:37)
[2017-06-06] MEDS: LORazepam 0.5 MG TABLET PO PRN (05:37)
[2017-06-06] MEDS: GUAIFENESIN 200mg/10ml ORAL LIQUID PO SCH ×3 (05:38→19:07)
[2017-06-06] MEDS: BUDESONIDE INH.SOLN 0.5mg/2ml NEB AEROSOL SCH (08:05)
[2017-06-06] MEDS: BuPROPion SR 150mg (12HR) TABLET PO SCH ×2 (10:37→20:11)
[2017-06-06] MEDS: PredniSONE 20 MG TABLET PO SCH (10:37)
[2017-06-06] MEDS: TICAGRELOR 90 MG TABLET PO SCH ×2 (10:37→20:11)
[2017-06-06] MEDS: GABAPENTIN 300 MG CAPSULE PO SCH ×3 (10:37→20:11)
[2017-06-06] MEDS: CITALOPRAM 40 MG TABLET PO SCH (10:38)
[2017-06-06] MEDS: POLYETHYL GLYCOL 3350 17gm PACKET PO SCH (10:38)
[2017-06-06] MEDS: LISINOPRIL 10 MG TABLET PO SCH (10:38)
[2017-06-06] MEDS: AMLODIPINE 5 MG TABLET PO SCH (10:38)
[2017-06-06] MEDS: NYSTATIN 500,000 units/5 ml ORAL LIQUID PO SCH ×4 (10:38→20:12)
[2017-06-06] MEDS: ATENOLOL 25 MG TABLET PO SCH ×2 (10:38→20:11)
[2017-06-06] MEDS: ASPIRIN *EC* 81 MG TABLET PO SCH (10:40)
[2017-06-06] MEDS ORDERED: NEOMYCIN/POLYMYXIN/BACITRACIN OINT PACKET TP ONE (13:00)
--- NOTE | 2017-06-06 15:28 | Cardiology Progress Note ---
<Valentine,Andreina Berry - Last Filed: 06/07/17 16:01> Subjective Principal diagnosis: NSTEMI Interval history: Howard is seen in follow up for NSTEMI and respiratory. He is up in the recliner, with his family at the bedside. He is planning to go to rehab either Inpatient at [facility] [place] [facility] or [place]. Exam Vital signs: Temperature 96.4 F L 06/06/17 10:37 Pulse Rate 73 06/06/17 10:37 Respiratory Rate 18 06/06/17 12:05 Blood Pressure 103/58 06/06/17 10:37 Pulse Oximetry 100 06/06/17 12:05 Inpatient Medications: Generic Name Dose Route Start Last Admin Trade Name Freq PRN Reason Stop Dose Admin Acetaminophen 325 - 650 mg 05/17/17 10:08 06/01/17 21:51 Tylenol PO 650 mg Q5H PRN Administration Discomfort Hydrocodone Bitart/Acetaminophen 1 tab 05/17/17 10:14 06/06/17 05:37 [place] 7.5/325 PO 1 tab Q6H PRN Administration Pain Al Hydroxide/Mg Hydroxide 30 ml 05/28/17 09:24 Maalox Plus PO Q3H PRN Indigestion Albuterol/Ipratropium 3 ml 05/17/17 10:11 Duoneb AEROSOL RTQID PRN Albuterol/Ipratropium 3 ml 05/21/17 15:15 06/06/17 12:05 Duoneb AEROSOL 3 ml Q4H KSENIA Administration Amlodipine Besylate 5 mg 06/04/17 11:41 06/06/17 10:38 Norvasc PO 5 mg DAILY KSENIA Administration Aspirin 81 mg 05/28/17 09:24 06/06/17 10:40 Ecotrin PO 81 mg DAILY KSENIA Administration Atenolol 25 mg 05/29/17 09:00 06/06/17 10:38 Tenormin PO 25 mg BID KSENIA Administration Atorvastatin Calcium 80 mg 05/28/17 21:00 06/05/17 22:04 Lipitor PO 80 mg HS KSENIA Administration Bisacodyl 10 mg 05/27/17 15:11 Dulcolax RECTALLY DAILY PRN Constipation Bisacodyl 5 - 10 mg 05/28/17 09:24 Dulcolax PO DAILY PRN Constipation Budesonide 0.5 mg 05/17/17 19:00 06/06/17 08:05 Pulmicort Inhalation AEROSOL 0.5 mg RTBID KSENIA Administration Bupropion HCl 150 mg 05/17/17 21:00 06/06/17 10:37 Wellbutrin Sr PO 150 mg BID KSENIA Administration Citalopram Hydrobromide 40 mg 05/18/17 09:00 06/06/17 10:38 Celexa PO 40 mg DAILY KSENIA Administration Gabapentin 300 mg 05/17/17 15:00 06/06/17 10:37 Neurontin PO 300 mg TID [facility] Administration Glucose 37.5 gm 05/17/17 10:12 Glutose 15 PO PRN PRN Hypoglycemia Guaifenesin 400 mg 05/29/17 12:00 06/06/17 05:38 Robitussin Liq PO 400 mg Q6H KSENIA Administration Haloperidol 1 mg 06/03/17 20:30 Haldol PO Q4H PRN Insulin Aspart 2 - 14 unit 05/21/17 11:43 06/05/17 22:14 Novolog SQ 2 unit SS PRN Administration Hyperglycemia Protocol Insulin Glargine 30 unit 06/03/17 21:00 06/05/17 22:13 Lantus SQ 30 unit HS KSENIA Administration Lisinopril 10 mg 06/05/17 09:00 06/06/17 10:38 Prinivil PO 10 mg DAILY [facility] Administration Lorazepam 0.5 - 1 mg 05/28/17 09:24 06/02/17 13:52 Ativan PO 0.5 mg Q4H PRN Administration Anxiety Magnesium Hydroxide 30 ml 05/28/17 09:24 Mom PO DAILY PRN Constipation Nitroglycerin 0.4 mg 05/31/17 23:49 06/02/17 08:11 Nitrostat SL 0.4 mg Q5M PRN Administration Chest pain Nystatin 5 ml 06/03/17 21:00 06/06/17 10:38 Mycostatin PO 06/13/17 20:59 5 ml QID [facility] Administration Omeprazole 40 mg 05/18/17 06:30 06/06/17 05:37 Prilosec PO 40 mg ACB KSENIA Administration Ondansetron HCl 4 mg 05/28/17 09:24 Zofran IVP Q6H PRN Nausea &/or vomiting Polyethylene Glycol 17 gm 06/03/17 09:00 06/06/17 10:38 Miralax PO Not Given DAILY KSENIA Prednisone 40 mg 06/06/17 08:00 06/06/17 10:37 Deltasone 20 Mg PO 40 mg WB KSENIA Administration Sodium Chloride 10 - 80 ml 05/17/17 05:20 06/05/17 11:42 Iv Flush IVF 20 ml PRN PRN Administration Flushing Sodium Chloride 1 spray 05/19/17 11:42 05/19/17 16:37 Deep Sea Nasal Moisturizing [place] EA NOSTRIL 1 spray PRN PRN Administration Congestion Sodium Chloride 500 ml 05/25/17 21:40 05/25/17 21:52 Normal Saline IV 500 ml PRN PRN Administration Ticagrelor 90 mg 05/28/17 21:01 06/06/17 10:37 Brilinta PO 90 mg Q12H KSENIA Administration Discontinued Medications Generic Name Dose Route Start Last Admin Trade Name Freq PRN Reason Stop Dose Admin Acetaminophen 650 mg 05/21/17 15:[address] Q5H PRN Pain Acetaminophen 325 - 650 mg 05/28/17 09:24 Tylenol PO Q5H PRN Pain Hydrocodone Bitart/Acetaminophen 1 tab 05/17/17 21:00 05/31/17 08:42 [place] 7.5/325 PO 1 tab BID KSENIA Administration Hydrocodone Bitart/Acetaminophen 1 - 2 tab 05/28/17 09:24 [place] 5/325 PO Q5H PRN Pain Acetazolamide 500 mg 05/19/17 10:51 05/19/17 11:25 Diamox PO 05/19/17 10:52 500 mg O ONE Administration Adenosine 12 mg 05/21/17 09:17 05/21/17 08:50 Adenocard IVP 05/21/17 09:18 12 mg O ONE Administration Adenosine 6 mg 05/21/17 09:18 05/21/17 09:23 Adenocard IVP 05/21/17 09:19 6 mg O ONE Administration Albuterol/Ipratropium 6 ml 05/17/17 05:19 05/17/17 05:33 Duoneb AEROSOL 05/17/17 05:20 6 ml O ONE Administration Albuterol/Ipratropium 3 ml 05/17/17 11:00 05/21/17 18:22 Duoneb AEROSOL Not Given RTQID KSENIA Amlodipine Besylate 10 mg 05/24/17 13:46 06/04/17 09:44 Norvasc PO 10 mg DAILY [facility] Administration Aspirin 81 mg 05/18/17 09:00 05/23/17 08:26 Asa PO Not Given DAILY [facility] Aspirin 81 mg 05/22/17 16:00 05/31/17 08:42 Asa GT 81 mg DAILY [facility] Administration Atenolol 25 mg 05/18/17 09:00 05/24/17 08:58 Tenormin PO 25 mg DAILY [facility] Administration Atenolol 50 mg 05/25/17 09:00 05/28/17 12:30 Tenormin PO Not Given DAILY [facility] Atenolol 25 mg 05/24/17 09:40 05/24/17 11:09 Tenormin PO 05/24/17 09:41 25 mg O ONE Administration Atropine Sulfate 0.5 mg 05/28/17 09:24 Atropine IVP Q5M PRN Bradycardia Benzocaine 1 lozenge 05/20/17 18:54 Cepacol Sore Throat Lozenge MM Q2HR PRN Sore throat Bisacodyl 10 mg 05/28/17 09:24 Dulcolax RECTALLY DAILY PRN Constipation Bivalirudin 250 mg 05/24/17 14:15 Angiomax IV NOW [facility] Clonidine HCl 0.1 mg 05/22/17 09:00 06/05/17 09:05 Catapres-Tts 1 TD Not Given Q7D@0900 [facility] Clonidine HCl 1 removal 05/29/17 08:59 06/05/17 09:05 Catapres Patch Removal TD 1 removal Q7D [facility] Administration Enoxaparin Sodium 1 each 05/18/17 10:47 05/18/17 12:54 Pharmacy Consult - Lovenox MC 05/18/17 10:48 1 each O ONE Administration Enoxaparin Sodium 50 mg 05/18/17 11:45 05/20/17 08:37 Lovenox SQ 50 mg DAILY [facility] Administration Enoxaparin Sodium 142 mg 05/27/17 17:00 05/28/17 09:34 Lovenox SQ 142 mg DAILY [facility] Administration Furosemide 20 mg 05/18/17 09:00 05/20/17 08:37 Lasix PO 20 mg DAILY [facility] Administration Furosemide 40 mg 05/21/17 09:37 05/21/17 09:45 Lasix IVP 05/21/17 09:38 40 mg ONCE ONE Administration Furosemide 20 mg 05/23/17 21:00 05/24/17 08:59 Lasix IVP 20 mg Q12HR KSENIA Administration Furosemide 20 mg 05/24/17 17:00 05/27/17 09:31 Lasix IVP 20 mg Q8HR KSENIA Administration Furosemide 20 mg 05/27/17 21:00 05/29/17 08:09 Lasix IVP 20 mg Q12H KSENIA Administration Furosemide 20 mg 05/29/17 09:00 Lasix IVP DAILY KSENIA Guaifenesin 1,200 mg 05/18/17 09:00 05/29/17 08:14 Mucinex La PO Not Given BID KSENIA Haloperidol Decano[place] 1 mg 06/01/17 17:43 06/02/17 17:00 Haldol Liquid GT 1 mg Q4H PRN Administration Heparin Sodium (Beef Lung) 5,000 unit 05/21/17 09:23 05/21/17 10:07 Heparin Bolus IVP 05/21/17 09:24 5,000 unit O ONE Administration Heparin Sodium (Beef Lung) 3,000 unit 05/21/17 17:45 05/21/17 17:53 Heparin Bolus IVP 05/21/17 17:46 3,000 unit O ONE Administration Heparin Sodium (Beef Lung) 3,000 unit 05/22/17 03:37 05/22/17 03:46 Heparin Bolus IVP 05/22/17 03:38 3,000 unit O ONE Administration Heparin Sodium (Porcine) 1 each 05/21/17 09:08 Pharmacy Consult - Heparin 05/21/17 09:09 ONE TIME ONE Hydralazine HCl 5 mg 05/22/17 08:47 05/22/17 10:09 Apresoline IVP 5 mg Q6H PRN Administration Hypertension Hydralazine HCl 10 mg 05/22/17 15:01 05/28/17 06:06 Apresoline IVP 10 mg Q4H PRN Administration Hypertension Sodium Chloride 1,000 mls @ 999.9 mls/hr 05/17/17 05:44 05/17/17 11:20 Normal Saline IV 05/17/17 06:43 Infused .Q1H ONE Infusion Sodium Chloride 1,000 mls @ 75 mls/hr 05/17/17 10:08 05/19/17 11:19 Normal Saline IV Infused .[id number] KSENIA Infusion Ceftriaxone Sodium 2 gm/ 100 mls @ 200 mls/hr 05/18/17 01:15 05/18/17 01:50 Sodium Chloride IV Infused Q24H KSENIA Infusion Ceftriaxone Sodium 2 gm/ 50 mls @ 100 mls/hr 05/18/17 21:00 05/20/17 21:55 Sodium Chloride IV Infused Q24H KSENIA Infusion Heparin Sodium (Porcine) 20,000 unit in 500 mls @ 44 mls/hr 05/21/17 09:30 13:17 Heparin Drip IV Infused .[id number] KSENIA Titration Protocol Dexmedetomidine HCl 200 mcg/ 52 mls @ 6.87 mls/hr 05/21/17 09:52 05/21/17 20: 00 Sodium Chloride IV 05/21/17 20:29 0 mcg/kg/hr .Q7H35M PRN 0 mls/hr Protocol Titration 0.2 MCG/KG/HR Propofol 1,000 mg in 100 mls @ 3.969 mls/hr 05/21/17 10:39 05/21/17 14:28 Diprivan IV 0 mcg/kg/min .Q24H PRN 0 mls/hr Protocol Infusion 5 MCG/KG/MIN Fentanyl 1,000 mcg/ Sodium 100 mls @ 0 mls/hr 05/21/17 13:02 05/27/17 14:45 Chloride IV Infused .Q0M PRN Titration Protocol Per Protocol Sodium Chloride 250 mls @ 999.9 mls/hr 05/21/17 13:15 05/21/17 14:28 Normal Saline IV 05/21/17 13:29 Infused .Q15M KSENIA Infusion Cefepime HCl 1 gm/ Sodium 50 mls @ 100 mls/hr 05/21/17 15:30 05/29/17 10:46 Chloride IV Infused Q6H KSENIA Infusion Levofloxacin/Dextrose 750 mg in 150 mls @ 100 mls/hr 05/21/17 16:00 05/28/17 17:15 Levaquin Premix IV Infused Q24H KSENIA Infusion Vancomycin HCl 1,500 mg/ 500 mls @ 250 mls/hr 05/21/17 18:00 05/24/17 12:15 Sodium Chloride IV Infused Q8H KSENIA Infusion Dexmedetomidine HCl 1,000 mcg/ 260 mls @ 6.87 mls/hr 05/21/17 20:30 05/27/17 14:45 Sodium Chloride IV 05/27/17 14:45 Infused .Q24H PRN Titration Protocol 0.2 MCG/KG/HR Potassium Chloride 10 meq in 100 mls @ 100 mls/hr 05/23/17 09:45 05/23/17 17: 34 Potassium Chloride Premix IV 05/23/17 13:44 Infused Q1H KSENIA Infusion Heparin Sodium (Porcine) 20,000 unit in 500 mls @ 45 mls/hr 05/23/17 16:00 06:16 Heparin Drip IV Not Given .Q11H7M KSENIA Protocol Potassium Chloride 10 meq in 100 mls @ 100 mls/hr 05/24/17 09:45 05/24/17 15: 56 Potassium Chloride Premix IV 05/24/17 13:44 Not Given Q1H KSENIA Potassium Chloride 10 meq/ 105 mls @ 105 mls/hr 05/24/17 11:45 05/24/17 17:00 Sodium Chloride IV 05/24/17 15:44 Infused Q1H KSENIA Infusion Bivalirudin 250 mg/ Sodium 500 mls @ 43.2 mls/hr 05/24/17 15:15 05/27/17 17: 34 Chloride IV Not Given .[id number] KSENIA Sodium Chloride 1,000 mls @ 75 mls/hr 05/28/17 07:45 05/28/17 14:00 Normal Saline IV Infused .[id number] KSENIA Infusion Sodium Chloride 1,000 mls @ 500 mls/hr 05/30/17 10:14 05/30/17 10:41 Normal Saline IV 05/30/17 12:13 500 mls/hr .Q2H ONE Administration Sodium Chloride 1,000 mls @ 60 mls/hr 05/30/17 17:00 05/31/17 06:00 Normal Saline IV 05/31/17 09:39 60 mls/hr .[id number] KSENIA Infusion Insulin Aspart 1 - 5 unit 05/17/17 10:12 05/18/17 06:06 Novolog SQ 2 unit SS PRN Administration Hyperglycemia Protocol Insulin Aspart 2 - 8 unit 05/18/17 08:22 05/21/17 07:30 Novolog SQ 3 unit SS PRN Administration Hyperglycemia Protocol Insulin Aspart 15 unit 05/20/17 10:32 05/20/17 10:36 Novolog SQ 05/20/17 10:33 15 unit ONE TIME ONE Administration Insulin Aspart 10 unit 05/26/17 12:00 05/26/17 13:54 Novolog SQ Not Given Q6H KSENIA Insulin Aspart 10 unit 05/26/17 15:00 05/27/17 21:06 Novolog SQ Not Given 0300,0900,1500,2100 KSENIA Insulin Aspart 10 unit 05/28/17 15:00 Novolog SQ Q6HR KSENIA Insulin Aspart 10 unit 05/28/17 18:00 05/31/17 06:11 Novolog SQ 10 unit Q6H KSENIA Administration Insulin Aspart 12 unit 05/31/17 08:41 06/03/17 19:14 Novolog SQ Not Given Q6H KSENIA Insulin Aspart 15 unit 06/01/17 15:00 06/02/17 10:37 Novolog SQ Not Given Q6H KSENIA Insulin Aspart 18 unit 06/02/17 09:58 06/03/17 17:37 Novolog SQ 18 unit Q6H KSENIA Administration Insulin Glargine 10 unit 05/21/17 21:00 05/21/17 20:14 Lantus SQ 10 unit HS KSENIA Administration Insulin Glargine 20 unit 05/22/17 21:00 05/22/17 20:14 Lantus SQ 20 unit HS KSENIA Administration Insulin Glargine 40 unit 05/23/17 21:00 05/30/17 21:34 Lantus SQ 40 unit HS KSENIA Administration Insulin Glargine 50 unit 05/31/17 08:41 05/31/17 21:06 Lantus SQ 50 unit HS KESNIA Administration Insulin Glargine 60 unit 06/01/17 21:00 06/02/17 20:23 Lantus SQ 60 unit HS KSENIA Administration Labetalol HCl 10 mg 05/21/17 20:40 05/22/17 06:05 Trandate IVP 10 mg Q4H PRN Administration INCREASED blood pressure Lactulose 20 gm 06/02/17 10:00 06/02/17 11:09 Lactulose PO 06/02/17 10:01 20 gm O ONE Administration Lisinopril 10 mg 05/24/17 16:15 05/31/17 08:42 Prinivil PO 10 mg DAILY KSENIA Administration Lisinopril 10 mg 05/31/17 15:18 05/31/17 15:43 Prinivil PO 05/31/17 15:19 10 mg O ONE Administration Lisinopril 20 mg 06/01/17 09:00 06/04/17 09:45 Prinivil PO 20 mg DAILY KSENIA Administration Lorazepam 1 mg 05/17/17 06:16 05/17/17 06:56 Ativan PO 05/17/17 06:17 1 mg O ONE Administration Lorazepam 0.5 mg 05/17/17 10:13 05/24/17 15:55 Ativan Inj IVP 0.5 mg Q6H PRN Administration Lorazepam 1 mg 05/24/17 19:46 05/31/17 01:43 Ativan Inj IVP 1 mg Q2H PRN Administration Agitation/Air hunger/Pain Lorazepam 0.5 - 1 mg 05/28/17 09:24 Ativan Inj IVP Q4H PRN Anxiety Magnesium Hydroxide 30 ml 05/26/17 12:41 05/26/17 13:53 Mom GT 05/26/17 12:42 30 ml O ONE Administration Menthol 1 lozenge 05/18/17 08:19 Ricola Sf MM PRN PRN Cough Metformin HCl 500 mg 05/17/17 17:30 05/18/17 10:00 Glucophage PO Not Given BIDWM KSENIA Metformin HCl 500 mg 05/19/17 09:00 05/21/17 10:52 Glucophage PO Not Given BIDWM KSENIA Methylprednisolone Sodium Succinate 125 mg 05/17/17 06:26 05/17/17 06:53 Solu-Medrol IM 05/17/17 06:27 125 mg O ONE Administration Methylprednisolone Sodium Succinate 125 mg 05/17/17 15:00 05/20/17 08:37 Solu-Medrol IVP 125 mg Q6HR KSENIA Administration Methylprednisolone Sodium Succinate 80 mg 05/20/17 15:00 05/24/17 08:57 Solu-Medrol IVP 80 mg Q6HR SKENIA Administration Methylprednisolone Sodium Succinate 80 mg 05/24/17 17:00 05/26/17 08:23 Solu-Medrol IVP 80 mg Q8HR KSENIA Administration Methylprednisolone Sodium Succinate 80 mg 05/26/17 21:00 05/29/17 08:15 Solu-Medrol IVP 80 mg Q12HR KSENIA Administration Methylprednisolone Sodium Succinate 60 mg 05/29/17 21:00 06/01/17 21:57 Solu-Medrol IVP 06/02/17 04:00 60 mg Q12HR KSENIA Administration Metoclopramide HCl 5 mg 05/23/17 17:30 05/30/17 10:42 Reglan GT 5 mg Q6H KSENIA Administration Metoclopramide HCl 5 - 10 mg 05/28/17 09:24 Reglan IVP Q6H PRN Nausea &/or vomiting Metoclopramide HCl 5 mg 05/30/17 14:00 06/03/17 23:15 Reglan GT Not Given Q6H KSENIA Metoprolol Tartrate 15 mg 05/21/17 09:18 05/21/17 09:05 Lopressor IVP 05/21/17 09:19 15 mg ONCE ONE Administration Metoprolol Tartrate 5 mg 05/28/17 10:01 05/28/17 10:00 Lopressor IVP 05/28/17 10:02 5 mg ONCE ONE Administration Morphine Sulfate 1 - 2 mg 05/17/17 10:08 05/24/17 17:56 Morphine Sulfate Inj IVP 2 mg Q2H PRN Administration Pain Morphine Sulfate 2 - 4 mg 05/28/17 09:24 05/28/17 10:17 Morphine Sulfate Inj IVP 05/29/17 09:23 4 mg Q2H PRN Administration Pain Morphine Sulfate 2 - 4 mg 05/28/17 09:24 06/02/17 08:19 Morphine Sulfate Inj IVP 2 mg Q5M PRN Administration Angina Neomycin/Polymyxin/Bacitracin 1 applic 06/06/17 13:00 06/06/17 13:10 Neosporin TP 06/06/17 13:01 1 applic O ONE Administration Nitroglycerin 0.4 mg 05/17/17 10:14 05/21/17 08:35 Nitrostat SL 0.4 mg Q5MIN3 PRN Administration CP Nitroglycerin 0.4 mg 05/28/17 09:24 Nitrostat SL Q5M PRN Angina --Pom--(Itraconazole 200 mg 05/17/17 21:00 05/29/17 09:39 [Itraconazole] 200 PO Not Given Mg) BID KSENIA Ondansetron HCl 4 mg 05/17/17 10:08 05/19/17 02:45 Zofran IVP 4 mg Q6H PRN Administration Nausea &/or vomiting Oseltamivir Phosphate 75 mg 05/29/17 21:00 06/03/17 09:27 Tamiflu 06/03/17 09:01 75 mg BID KSENIA Administration Pantoprazole Sodium 40 mg 05/22/17 09:00 05/31/17 08:44 Protonix Iv IVP 40 mg DAILY KSENIA Administration Pharmacy Consult 1 each 05/17/17 10:32 Pharmacy Consult - Fall Risk XX 05/17/17 10:33 ONE TIME ONE Pharmacy Consult 1 each 05/27/17 10:17 Pharmacy Consult - Fall Risk XX 05/27/17 10:18 ONE TIME ONE Pharmacy Consult 1 each 06/05/17 10:03 Pharmacy Consult - Fall Risk XX 06/05/17 10:04 ONE TIME ONE Potassium Chloride 40 meq 05/24/17 18:10 05/26/17 06:13 Kcl Oral Liq 20 Meq/15 Ml PO Not Given BIDWM KSENIA Potassium Chloride 40 meq 05/25/17 13:00 05/26/17 08:22 Kcl Oral Liq 20 Meq/15 Ml PO 40 meq QID KSENIA Administration Potassium Chloride 40 meq 05/26/17 12:00 05/27/17 12:04 Kcl Oral Liq 20 Meq/15 Ml PO 40 meq TIDWM KSENIA Administration Potassium Chloride 40 meq 05/27/17 17:30 05/29/17 07:59 Kcl Oral Liq 20 Meq/15 Ml PO 40 meq BIDWM KSENIA Administration Potassium Chloride 40 meq 05/29/17 09:00 05/30/17 08:42 Kcl Oral Liq 20 Meq/15 Ml PO 40 meq DAILY KSENIA Administration Prednisone 60 mg 06/02/17 08:00 06/03/17 09:20 Deltasone 20 Mg PO 60 mg WB KSENIA Administration Prednisone 50 mg 06/03/17 11:15 06/05/17 09:02 Deltasone 50 Mg PO 50 mg WB KSENIA Administration Promethazine HCl 12.5 - 25 mg 05/28/17 09:24 Phenergan Inj IVP Q6HR PRN Nausea &/or vomiting Simvastatin 20 mg 05/17/17 21:00 05/27/17 20:36 Zocor PO Not Given HS KSENIA Vancomycin HCl 1 each 05/21/17 15:19 05/21/17 15:53 Pharmacy Consult - Vancomycin 05/21/17 15:20 1 each O ONE Administration - Constitutional no acute distress, obese, cooperative - Routine HEENT Exam Head: Present: normocephalic ENT: Present: mucous membranes moist - Routine Neck Exam Absent: JVD, carotid bruit - Routine Chest/Breast/Axilla Exam Chest wall: Absent: tenderness - Routine Respiratory Exam Present: decreased breath sounds. Absent: dyspnea - Routine Cardiovascular Exam Present: RRR, no murmur - Routine Abdominal Exam Present: soft, normoactive bowel sounds - Routine Extremities Exam Present: edema - Routine Skin Exam Present: intact, dry, warm - Routine Neurological Exam Present: alert - Routine Psychiatric Exam Present: normal affect - Additional findings Additional findings: Acetaminophen (Tylenol) 325 - 650 mg PO Q5H PRN PRN Reason: Discomfort Last Admin: 06/01/17 21:51 Dose: 650 mg Hydrocodone Bitart/Acetaminophen ([place] 7.5/325) 1 tab PO Q6H PRN PRN Reason: Pain Last Admin: 06/06/17 05:37 Dose: 1 tab Al Hydroxide/Mg Hydroxide (Maalox Plus) 30 ml PO Q3H PRN PRN Reason: Indigestion Albuterol/Ipratropium (Duoneb) 3 ml AEROSOL RTQID PRN Albuterol/Ipratropium (Duoneb) 3 ml AEROSOL Q4H [facility] Last Admin: 06/07/17 15:17 Dose: 3 ml Aspirin (Ecotrin) 81 mg PO DAILY [facility] Last Admin: 06/07/17 09:21 Dose: 81 mg Atenolol (Tenormin) 25 mg PO BID [facility] Last Admin: 06/07/17 12:06 Dose: 25 mg Atorvastatin Calcium (Lipitor) 80 mg PO HS [facility] Last Admin: 06/06/17 20:10 Dose: 80 mg Bisacodyl (Dulcolax) 10 mg RECTALLY DAILY PRN PRN Reason: Constipation Bisacodyl (Dulcolax) 5 - 10 mg PO DAILY PRN PRN Reason: Constipation Budesonide (Pulmicort Inhalation) 0.5 mg AEROSOL RTBID [facility] Last Admin: 06/07/17 09:00 Dose: 0.5 mg Bupropion HCl (Wellbutrin Sr) 150 mg PO BID [facility] Last Admin: 06/07/17 09:21 Dose: 150 mg Citalopram Hydrobromide (Celexa) 40 mg PO DAILY [facility] Last Admin: 06/07/17 09:21 Dose: 40 mg Gabapentin (Neurontin) 300 mg PO TID [facility] Last Admin: 06/07/17 14:10 Dose: 300 mg Glucose (Glutose 15) 37.5 gm PO PRN PRN PRN Reason: Hypoglycemia Guaifenesin (Robitussin Liq) 400 mg PO Q6H [facility] Last Admin: 06/07/17 12:07 Dose: 200 mg Haloperidol (Haldol) 1 mg PO Q4H PRN Insulin Aspart (Novolog) 2 - 14 unit SQ SS PRN; Protocol PRN Reason: Hyperglycemia Last Admin: 06/07/17 15:39 Dose: 10 unit Insulin Glargine (Lantus) 30 unit SQ HS [facility] Last Admin: 06/06/17 20:10 Dose: 30 unit Lisinopril (Prinivil) 10 mg PO DAILY [facility] Last Admin: 06/07/17 12:05 Dose: Not Given Lorazepam (Ativan) 0.5 - 1 mg PO Q4H PRN PRN Reason: Anxiety Last Admin: 06/02/17 13:52 Dose: 0.5 mg Magnesium Hydroxide (Mom) 30 ml PO DAILY PRN PRN Reason: Constipation Nitroglycerin (Nitrostat) 0.4 mg SL Q5M PRN PRN Reason: Chest pain Last Admin: 06/02/17 08:11 Dose: 0.4 mg Nystatin (Mycostatin) 5 ml PO QID [facility] Stop: 06/13/17 20:59 Last Admin: 06/07/17 14:10 Dose: 5 ml Omeprazole (Prilosec) 40 mg PO ACB [facility] Last Admin: 06/07/17 06:12 Dose: 40 mg Ondansetron HCl (Zofran) 4 mg IVP Q6H PRN PRN Reason: Nausea &/or vomiting Polyethylene Glycol (Miralax) 17 gm PO DAILY [facility] Last Admin: 06/07/17 09:26 Dose: Not Given Prednisone (Deltasone 20 Mg) 40 mg PO WB [facility] Last Admin: 06/07/17 09:21 Dose: 40 mg Sodium Chloride (Iv Flush) 10 - 80 ml IVF PRN PRN PRN Reason: Flushing Last Admin: 06/05/17 11:42 Dose: 20 ml Sodium Chloride (Deep Sea Nasal Moisturizing [place]) 1 spray EA NOSTRIL PRN PRN PRN Reason: Congestion Last Admin: 05/19/17 16:37 Dose: 1 spray Sodium Chloride (Normal Saline) 500 ml IV PRN PRN Last Admin: 05/25/17 21:52 Dose: 500 ml Ticagrelor (Brilinta) 90 mg PO Q12H KSENIA Last Admin: 06/07/17 09:25 Dose: 90 mg - Urinary Catheter Management Urethral Cath placed during this visit: yes Insertion date: 05/21/17 Results 06/05/17 06:22 06/05/17 06:22 Intake and Output 06/06/17 06/06/17 06/06/17 06:59 14:59 22:59 Intake Total 50 / 50 Output Total 650 / 650 Balance -600 / -600 Intake: Oral 50 / 50 Output: Urine Amount (Catheter) 650 / 650 Other: Urine Appearance Clear Urine Color Dark Yellow Urine Odor Normal Weight 275 lb 5.718 oz Patient Weight 06/07/17 06:59 Weight 275 lb 5.718 oz Assessment and Plan - Assessment and Plan (1) NSTEMI (non-ST elevated myocardial infarction) Status: Acute (2) Chest pain Status: Acute (3) Community acquired pneumonia Status: Acute (4) Acute and chronic respiratory failure with hypercapnia Status: Acute (5) Atherosclerotic heart disease of [place] coronary artery without angina pectoris Status: Chronic (6) Essential (primary) hypertension Status: Chronic (7) Type 2 diabetes mellitus without complications Status: Chronic (8) Obesity (BMI 30-39.9) Status: Chronic (9) ANGELLA (obstructive sleep apnea) Status: Chronic - Assessment and Plan 05/21/17 Reportedly had severe chest pain, was johnson and diaphoretic as well as tachypneic followed by decreased LOC. - HR 140s, sinus tach vs. A flutter - Given Adenosine 6mg IVP, followed by 12mg X2 without slowing HR. - Sedation given and attempted DCCV which was unsuccessful. - Following 2nd dose of Metoprolol 5mg IV heart rate slowed enough to confirm it is Sinus tachycardia. - Repeat EKG obtained, started on Heparin drip. - Trend Troponin - 2D echo - CTA for emboli/ dissection 05/22/17 NSTEMI: - Troponin: 1) 0.015, 2) 1.500, 3) 3.090, 4) 2.100 - EKG: SR, anterolateral ischemia V3-V6, inferior ischemia II/aVf - Left heart cath when more stable - Continue Heparin drip. HTN: Catapress TTS 1 patch while NPO - Hydralazine prn as ordered - Labetalol prn, hold HR <65 05/23/17 BP improving - EKG now please 05/24/17 Stop Heparin drip, get HIT panel Spoke with pharmacy, start Angiomax at 0.15mg/kg/hr (21.6mg/hr) until HIT panel resulted. Continues to have ST depression on Telemetry and EKG. Add Amlodipine 10mg per OG tube for better BP control 05/27/17 - Plan left heart cath with possible PCI in the am - Stop Angiomax drip - Give Lovenox 1mg/kg SQ tonight - Watch platelets closely 05/29/17 He had a left heart cath yesterday with successful primary stents of LAD using a 2.75 x 18 and another 2.75 x 18 drug-eluting Resolute [place] stents. - Aspirin 81mg daily, Brilinta 90mg BID for dual antiplatelet therapy - Change Simvastatin to Atorvastatin 80mg at HS - Continue to Hold Metformin - Change Atenolol 50mg daily to 25mg BID - Decrease IV Lasix to daily and K+ to daily as BUN is rising and is post cath. 05/30/17 BP remains variable. Consider changing Catapres to an oral agent tomorrow Thank you for allowing us to participate in the care of this patient, we will follow along with you. 05/31/17 Increase Lisinopril to 20mg daily, give additional 10mg now - Leave Catapres as ordered for now 06/03/17 Continues to improve, BP well controlled, Hgb stable. no change in cardiac plan for now 06/04/17 Seen in CCU, expect transfer to surgical unit. Will plan further cardiac intervention after fully recovers from this hospitalization. 06/05/17 D/C Clonidine patch, was held today d/t pressure May need to downward adjust other antihypertensives 06/06/17 Stop Amlodipine, BP borderline low - Continue to monitor Hospital Course Summary Disclaimer: The visit summary below is not to be considered part of the above Progress Note. Hospital Course: 05/17/17 Admission Admit to observation status under the care of Dr. Lopez. Sepsis work up initiated in ED. Patient meeting SIRS criteria based on tachycardia, tachypnea and reported fevers at home without obvious source. Initial lactate was 1.4 with repeat lactate decreased to 0.9. Blood cultures pending. WBC stable at 5.0. CXR revealed left basilar scarring without focal pneumonia. Respiratory panel was negative. Patient was given DuoNeb treatments and Solu-Medrol 125mg IV in ED. Will continue respiratory care with DuoNeb treatments QID and Q6H PRN as well as Solu -Medrol 125mg IV Q6H. History of diabetes with A1c on 04/17/17 at 6.4%. Continue home medications and monitor blood sugars closely given treatment with steroids. Sliding scale insulin as indicated for hyperglycemia. Patient was placed on BiPAP in ED with improvement. Continue BiPAP as indicated. Ativan as needed for anxiety and agitation while on BiPAP. Will monitor closely on telemetry with continuous pulse oximetry. Oxygen as needed to maintain SAO2 between 90-95%, weaning as able to baseline of 5L. SCDs for DVT prophylaxis. Given sudden onset of dyspnea, will obtain CT angio chest for further evaluation of PE - results pending. NS at 100cc/hr for hydration given decreased oral intake as on BiPAP. Monitor daily weight closely for signs of fluid overload. Recheck labs in AM to monitor blood counts, electrolytes and renal function. Patient wishes to maintain FULL CODE status. Upon discharge, patient's care will be returned to his PCP, Dr. Odom. 05/18/17 Don reports that his breathing is a little better today and is he is more alert. New cough with sputum production. 1 of the 2 blood cultures obtained on admission is POSITIVE for Streptococcus. Night telehospitalist was notified and Rocephin 2g IV Q24 hours was initiated for antimicrobial coverage. Given new cough, will try and obtain a sputum culture. Mucinex for mucolytic effect. Ricola for cough. Continue respiratory care including nebulized treatments. Continue to encourage BiPAP as indicated and supplemental oxygen to maintain SAO2 between 90 -95%. Wean oxygen to baseline of 5L as able. Given sudden onset of dyspnea, CT angio chest was obtained and revealed no PE but did note 2.2cm left lower lobe pulmonary nodule raising concern for primary lung malignancy and recommended further evaluation. Will discuss consideration of pulmonary consult for further evaluation. Continue Solu-Medrol 125mg IV Q6 hours. Anticipate initiation of tapering in near future. Blood sugars remain elevated, most likely steroid effect, ranging from 160's-> 200. Continue sliding scale insulin. Given recent CT with contrast, will hold metformin and restart 05/19/17. Continue NS at 75cc/hr for hydration. Monitor urinary output and daily weight closely for signs of fluid over load. Oral intake is good. Consider discontinuation of fluids this afternoon. Ativan as needed for anxiety and agitation while on BiPAP. Troponins continue to trend up slowing - 0.015, 0.017, 0.029, 0.045 and 0.048 this morning. Will recheck troponin at 1030 and continue to monitor closely on telemetry. Patient denies chest pain. SCDs for DVT prophylaxis. Recheck labs in AM to monitor blood counts, electrolytes and renal function. Discussed at length with patient and family the importance of smoking cessation. He admits to wanting to stop smoking and inquired about initiation of Chantix. Continue Wellbutrin for smoking cessation. With BC positive and starting IV antibiotics, will change admission status to inpatient. Anticipate greater than 2 midnights of care needed. 05/19/17 Continue with Rocephin for antimicrobial coverage. With lungs still very tight and congested, will continue with Solu-Medrol 125mg IV q 6 hours. Continue Neb treatments and acapella. Encourage use of BiPAP as much as able to help his chronic hypercapnea. Stressed with about the importance of him not smoking. She understand. Will consult with Dr Ashby for pulm evaluation. Will discontinue IVF. May restart metformin this evening. Sugars with elevation secondary to steroids. Did give Diamox 500mg x1 this am for fluid motivation and to help minimize contraction alkalosis. PT/OT to evaluate and initiate treatment tomorrow for his significant pulmonary debility. 05/20 Continue with Rocephin for antimicrobial coverage. One blood culture was positive with streptococcus Viridans, Repeat BC were drawn this morning. Scheduled breathing tx, IV solu-medrol, as well as oxygen and Bipap Appreciate Dr Ashby consultation. Likely require bronchoscopy for biopsy of lung mass. Continue to monitor BGM remain elevated. Metformin was resumed as well as sliding scale insulin. Encourage PT/OT for strengthening 05/21 Resp failure --> ABG shows resp acidosis and he was placed on BiPAP with improvement in color. Repeat ABG shows pH 7.12, pCO2 106, pO2 185. CXR ordered. BG 230. Chest pain --> EKG shows ST changes and widened QRS, poss a-flutter; troponin pending. Dr. Govea consulted. He's had 2 NTG but remains very hypertensive with SBP 220s. Pt failed to respond to adenosine, and subseqently was cardioverted with conversion to sinus tach. Rapid response activated and Dr. Ramírez was at bedside x20 min. Transferred to CCU, where pt was met by Dr. Govea for evaluation. Continue treatment for resp status including steroids and Rocephin. 05/22 Patient remains on a ventilator requiring continuous sedation. Oxygenation borderline on 40% FiO2-oxygen flow increased to 60% by pulmonary earlier today. Continue triple antibiotics (cefepime, Levaquin, vancomycin) pending sputum culture due to extensive pneumonia on CT/chest x-ray yesterday-not present on initial films. Peak troponin 3.09 with diffuse T-wave changes; discussed with Dr. Govea and will require cardiac catheterization in the future. Continue heparin drip. Blood pressure is uncontrolled-clonidine patch initiated earlier, IV hydralazine added as needed for systolic pressures above 180. OG placed-resume statin, SSRI, atenolol, and aspirin. Assess gastric residuals today-anticipate beginning tube feedings tomorrow. Adequate urine output, continue to monitor. Blood sugars remain elevated, off metformin at present. Increase basal insulin. 05/23 Patient remains on a ventilator requiring continuous sedation. Continue triple antibiotics (cefepime, Levaquin, vancomycin); suspect aspiration pneumonia-sputum culture normal charly. Extensive infiltrates on CT chest. Repeat chest x-ray in a.m. Fluid balance positive-roughly 5 L over several days, weight up-diuresis today. Potassium supplemented IV earlier today. Peak troponin 3.09 with diffuse T-wave changes; discussed with Dr. Govea and will require cardiac catheterization in the future. Continue heparin drip. Blood pressure remains elevated but improved from yesterday with addition of clonidine patch and resumption of atenolol per OG. IV hydralazine available as needed for systolic pressures above 180. OG placed 05/22-low volume gastric output overnight and tolerating medications per OG. Will initiate tube feedings with low glycemic formula at 20 mL per hour overnight. Nutrition consult. Blood sugars remain elevated, off metformin at present and on steroids. Increase basal insulin to 40 units anticipating further increase in blood sugar with initiation of tube feedings. 05/24 Remains ventilator dependent. Steroids decreased. Vancomycin discontinued, continue Levaquin and cefepime for probable aspiration pneumonia and Streptococcus viridans positive blood culture. Continue diuresis, blood pressures elevated-atenolol increased and lisinopril initiated to improve control. Tolerating tube feedings at low-volume, converted pulmonary formula with goal of 80 mL per hour. Platelet count dropping, heparin discontinued and bivalirudin initiated. 05/25 Tolerating spontaneous breathing trial, steroids decreased. Continues to require continuous sedation. Lisinopril increased to 20 mg to improve blood pressure control. Platelet count down to 100K; HIT Ab pending. Fevers overnight without evidence source, leukocytosis/left shift resolved improved. Lines to be cultured. 05/26 FiO2 titrated to 40%; diuresing well-continue same. Spontaneous breathing trial planned for the morning with possible extubation at that time. Cardiac status stable, no further tachyarrhythmias. Trend to improved blood pressures. Cardiac catheterization planned in the future. Remains on bivalirudin. Platelet count 86K today, HIT Ab pending. Tube feedings at goal, blood sugars significantly elevated-NovoLog scheduled every 6 hours and when necessary. Chest x-ray improved, remains on Levaquin and cefepime for probable aspiration pneumonia. Blood cultures drawn yesterday negative thus far. 05/27 Extubated this afternoon, OG discontinued in conjunction with extubation. CPAP initiated for respiratory support. Speech therapy, PT, OT consultations tomorrow. Anticipate significant reduction in fluid volume off sedating medications and tube feedings--> Lasix dose decreased to twice daily administration. Platelet count stabilizing, HIT Ab negative. Intermittent fever, remains on antibiotics for possible aspiration pneumonia. Repeat blood cultures negative. 05/29 Extubated 05/27 Placed on CPAP with home equipment. Baseline 5L Currently tolerating NC, oxygen support as needed to maintain sats and mentation , pulm consulted and following CXR-stable Leukocytosis-likely 2/2 steroid effect, PCT negative, no fever x48 hours Cefepime and Levaquin currently. Vanc discontinued 05/24. Likely d/c abx today. Will consult ID for abx recs Failed speech therapy Continue tube feeds and meds via Dobhoff Monitor fluid status-hold evening dose of lasix Peak troponin 3.09 on 05/21/17 with diffuse T-wave changes; heart cath 05/28-now on ASA and Bivalirudin Monitor platelet count-currently WNL Monitor BP, adjust medications as needed Monitor glucose and continue insulin as ordered Discussed with nursing staff, and infectious disease 05/30 Extubated 05/27, continue Bipap/NC as per pulm Weaning steroids CXR-improving Leukocytosis Cefepime, Levaquin, Vanc discontinued Continue Tamiflu Failed speech therapy, continue to re-eval Continue tube feeds and meds via Dobhoff, feeds at 40ml/hr, goal of 80ml/hr Discontinue lasix, give 1L NS and re-eval fluid status Continue ASA and Bivalirudin per cardiology 05/31 Failed speech therapy, continue to re-eval Tube feedings and medications per Dobbhoff, goal 80 mL per hour tube feeding. Adjust insulin for hyperglycemia. 06/01 describes increased confusion/irritability-haloperidol initiated as needed. Converting to prednisone per Dobbhoff in a.m.; blood gas with mild hypoxia-FiO2 increased. Continue nutritional support per Dobbhoff; insulins again adjusted for persistent hyperglycemia. Chest pain described overnight, EKG unchanged. 06/02 Complaints of chest pain/dyspnea again this morning-resolved with position change. Intermittent confusion, haloperidol given twice overnight. Persistent hyperglycemia, scheduled short acting insulin adjusted further. Solu-Medrol discontinued, prednisone initiated per Dobbhoff this morning. Lactulose administered per Dobbhoff for ongoing constipation; MiraLAX added with recommendation the patient take it orally. Patient and family advised he will require rehabilitation before discharge home can be entertained. <Francis Govea - Last Filed: 06/13/17 12:59> Exam Vital signs: Temperature 96.4 F L 06/11/17 08:00 Pulse Rate 86 06/11/17 08:00 Respiratory Rate 22 06/11/17 13:45 Blood Pressure 95/53 06/11/17 08:00 Pulse Oximetry 96 06/11/17 14:02 Inpatient Medications: Discontinued Medications Generic Name Dose Route Start Last Admin Trade Name Freq PRN Reason Stop Dose Admin Acetaminophen 325 - 650 mg 05/17/17 10:08 06/01/17 21:51 Tylenol PO 650 mg Q5H PRN Administration Discomfort Acetaminophen 650 mg 05/21/17 15:[address] Q5H PRN Pain Acetaminophen 325 - 650 mg 05/28/17 09:24 Tylenol PO Q5H PRN Pain Hydrocodone Bitart/Acetaminophen 1 tab 05/17/17 21:00 05/31/17 08:42 [place] 7.5/325 PO 1 tab BID KSENIA Administration Hydrocodone Bitart/Acetaminophen 1 tab 05/17/17 10:14 06/06/17 05:37 [place] 7.5/325 PO 1 tab Q6H PRN Administration Pain Hydrocodone Bitart/Acetaminophen 1 - 2 tab 05/28/17 09:24 [place] 5/325 PO Q5H PRN Pain Acetazolamide 500 mg 05/19/17 10:51 05/19/17 11:25 Diamox PO 05/19/17 10:52 500 mg O ONE Administration Adenosine 12 mg 05/21/17 09:17 05/21/17 08:50 Adenocard IVP 05/21/17 09:18 12 mg O ONE Administration Adenosine 6 mg 05/21/17 09:18 05/21/17 09:23 Adenocard IVP 05/21/17 09:19 6 mg O ONE Administration Al Hydroxide/Mg Hydroxide 30 ml 05/28/17 09:24 Maalox Plus PO Q3H PRN Indigestion Albuterol/Ipratropium 6 ml 05/17/17 05:19 05/17/17 05:33 Duoneb AEROSOL 05/17/17 05:20 6 ml O ONE Administration Albuterol/Ipratropium 3 ml 05/17/17 11:00 05/21/17 18:22 Duoneb AEROSOL Not Given RTQID KSENIA Albuterol/Ipratropium 3 ml 05/17/17 10:11 Duoneb AEROSOL RTQID PRN Albuterol/Ipratropium 3 ml 05/21/17 15:15 06/11/17 13:45 Duoneb AEROSOL 3 ml Q4H KSENIA Administration Amlodipine Besylate 10 mg 05/24/17 13:46 02/27/18 09:44 Norvasc PO 10 mg DAILY [facility] Administration Amlodipine Besylate 5 mg 06/04/17 11:41 06/06/17 10:38 Norvasc PO 5 mg DAILY [facility] Administration Aspirin 81 mg 05/18/17 09:00 05/23/17 08:26 Asa PO Not Given DAILY [facility] Aspirin 81 mg 05/22/17 16:00 05/31/17 08:42 Asa GT 81 mg DAILY [facility] Administration Aspirin 81 mg 05/28/17 09:24 06/11/17 09:35 Ecotrin PO 81 mg DAILY [facility] Administration Atenolol 25 mg 05/18/17 09:00 05/24/17 08:58 Tenormin PO 25 mg DAILY [facility] Administration Atenolol 50 mg 05/25/17 09:00 05/28/17 12:30 Tenormin PO Not Given DAILY [facility] Atenolol 25 mg 05/24/17 09:40 05/24/17 11:09 Tenormin PO 05/24/17 09:41 25 mg O ONE Administration Atenolol 25 mg 05/29/17 09:00 06/11/17 09:47 Tenormin PO Not Given BID [facility] Atorvastatin Calcium 80 mg 05/28/17 21:00 06/10/17 20:32 Lipitor PO 80 mg HS [facility] Administration Atropine Sulfate 0.5 mg 05/28/17 09:24 Atropine IVP Q5M PRN Bradycardia Benzocaine 1 lozenge 05/20/17 18:54 Cepacol Sore Throat Lozenge MM Q2HR PRN Sore throat Bisacodyl 10 mg 05/27/17 15:11 Dulcolax RECTALLY DAILY PRN Constipation Bisacodyl 5 - 10 mg 05/28/17 09:24 Dulcolax PO DAILY PRN Constipation Bisacodyl 10 mg 05/28/17 09:24 Dulcolax RECTALLY DAILY PRN Constipation Bivalirudin 250 mg 05/24/17 14:15 Angiomax IV NOW [facility] Budesonide 0.5 mg 05/17/17 19:00 06/11/17 09:02 Pulmicort Inhalation AEROSOL 0.5 mg RTBID [facility] Administration Bupropion HCl 150 mg 05/17/17 21:00 06/11/17 09:34 Wellbutrin Sr PO 150 mg BID KSENIA Administration Citalopram Hydrobromide 40 mg 05/18/17 09:00 06/11/17 09:34 Celexa PO 40 mg DAILY KSENIA Administration Clonidine HCl 0.1 mg 05/22/17 09:00 06/05/17 09:05 Catapres-Tts 1 TD Not Given Q7D@0900 KSENIA Clonidine HCl 1 removal 05/29/17 08:59 06/05/17 09:05 Catapres Patch Removal TD 1 removal Q7D KSENIA Administration Enoxaparin Sodium 1 each 05/18/17 10:47 05/18/17 12:54 Pharmacy Consult - Lovenox MC 05/18/17 10:48 1 each O ONE Administration Enoxaparin Sodium 50 mg 05/18/17 11:45 05/20/17 08:37 Lovenox SQ 50 mg DAILY KSENIA Administration Enoxaparin Sodium 142 mg 05/27/17 17:00 05/28/17 09:34 Lovenox SQ 142 mg DAILY KSENIA Administration Furosemide 20 mg 05/18/17 09:00 05/20/17 08:37 Lasix PO 20 mg DAILY KSENIA Administration Furosemide 40 mg 05/21/17 09:37 05/21/17 09:45 Lasix IVP 05/21/17 09:38 40 mg ONCE ONE Administration Furosemide 20 mg 05/23/17 21:00 05/24/17 08:59 Lasix IVP 20 mg Q12HR KSENIA Administration Furosemide 20 mg 05/24/17 17:00 05/27/17 09:31 Lasix IVP 20 mg Q8HR KSENIA Administration Furosemide 20 mg 05/27/17 21:00 05/29/17 08:09 Lasix IVP 20 mg Q12H KSENIA Administration Furosemide 20 mg 05/29/17 09:00 Lasix IVP DAILY [facility] Gabapentin 300 mg 05/17/17 15:00 06/11/17 09:31 Neurontin PO 300 mg TID [facility] Administration Glucose 37.5 gm 05/17/17 10:12 Glutose 15 PO PRN PRN Hypoglycemia Guaifenesin 1,200 mg 05/18/17 09:00 05/29/17 08:14 Mucinex La PO Not Given BID [facility] Guaifenesin 400 mg 05/29/17 12:00 06/11/17 05:51 Robitussin Liq PO Not Given Q6H KSENIA Haloperidol 1 mg 06/03/17 20:30 Haldol PO Q4H PRN Haloperidol Decanoate 1 mg 06/01/17 17:43 06/02/17 17:00 Haldol Liquid GT 1 mg Q4H PRN Administration Heparin Sodium (Beef Lung) 5,000 unit 05/21/17 09:23 05/21/17 10:07 Heparin Bolus IVP 05/21/17 09:24 5,000 unit O ONE Administration Heparin Sodium (Beef Lung) 3,000 unit 05/21/17 17:45 05/21/17 17:53 Heparin Bolus IVP 05/21/17 17:46 3,000 unit O ONE Administration Heparin Sodium (Beef Lung) 3,000 unit 05/22/17 03:37 05/22/17 03:46 Heparin Bolus IVP 05/22/17 03:38 3,000 unit O ONE Administration Heparin Sodium (Porcine) 1 each 05/21/17 09:08 Pharmacy Consult - Heparin 05/21/17 09:09 ONE TIME ONE Hydralazine HCl 5 mg 05/22/17 08:47 05/22/17 10:09 Apresoline IVP 5 mg Q6H PRN Administration Hypertension Hydralazine HCl 10 mg 05/22/17 15:01 05/28/17 06:06 Apresoline IVP 10 mg Q4H PRN Administration Hypertension Sodium Chloride 1,000 mls @ 999.9 mls/hr 05/17/17 05:44 05/17/17 11:20 Normal Saline IV 05/17/17 06:43 Infused .Q1H ONE Infusion Sodium Chloride 1,000 mls @ 75 mls/hr 05/17/17 10:08 05/19/17 11:19 Normal Saline IV Infused .[id number] KSENIA Infusion Ceftriaxone Sodium 2 gm/ 100 mls @ 200 mls/hr 05/18/17 01:15 05/18/17 01:50 Sodium Chloride IV Infused Q24H KSENIA Infusion Ceftriaxone Sodium 2 gm/ 50 mls @ 100 mls/hr 05/18/17 21:00 05/20/17 21:55 Sodium Chloride IV Infused Q24H KSENIA Infusion Heparin Sodium (Porcine) 20,000 unit in 500 mls @ 44 mls/hr 05/21/17 09:30 13:17 Heparin Drip IV Infused .[id number] KSENIA Titration Protocol Dexmedetomidine HCl 200 mcg/ 52 mls @ 6.87 mls/hr 05/21/17 09:52 05/21/17 20: 00 Sodium Chloride IV 05/21/17 20:29 0 mcg/kg/hr .Q7H35M PRN 0 mls/hr Protocol Titration 0.2 MCG/KG/HR Propofol 1,000 mg in 100 mls @ 3.969 mls/hr 05/21/17 10:39 05/21/17 14:28 Diprivan IV 0 mcg/kg/min .Q24H PRN 0 mls/hr Protocol Infusion 5 MCG/KG/MIN Fentanyl 1,000 mcg/ Sodium 100 mls @ 0 mls/hr 05/21/17 13:02 05/27/17 14:45 Chloride IV Infused .Q0M PRN Titration Protocol Per Protocol Sodium Chloride 250 mls @ 999.9 mls/hr 05/21/17 13:15 05/21/17 14:28 Normal Saline IV 05/21/17 13:29 Infused .Q15M KSENIA Infusion Cefepime HCl 1 gm/ Sodium 50 mls @ 100 mls/hr 05/21/17 15:30 05/29/17 10:46 Chloride IV Infused Q6H KSENIA Infusion Levofloxacin/Dextrose 750 mg in 150 mls @ 100 mls/hr 05/21/17 16:00 05/28/17 17:15 Levaquin Premix IV Infused Q24H KSENIA Infusion Vancomycin HCl 1,500 mg/ 500 mls @ 250 mls/hr 05/21/17 18:00 05/24/17 12:15 Sodium Chloride IV Infused Q8H KSENIA Infusion Dexmedetomidine HCl 1,000 mcg/ 260 mls @ 6.87 mls/hr 05/21/17 20:30 05/27/17 14:45 Sodium Chloride IV 05/27/17 14:45 Infused .Q24H PRN Titration Protocol 0.2 MCG/KG/HR Potassium Chloride 10 meq in 100 mls @ 100 mls/hr 05/23/17 09:45 05/23/17 17: 34 Potassium Chloride Premix IV 05/23/17 13:44 Infused Q1H KSENIA Infusion Heparin Sodium (Porcine) 20,000 unit in 500 mls @ 45 mls/hr 05/23/17 16:00 06:16 Heparin Drip IV Not Given .Q11H7M KSENIA Protocol Potassium Chloride 10 meq in 100 mls @ 100 mls/hr 05/24/17 09:45 05/24/17 15: 56 Potassium Chloride Premix IV 05/24/17 13:44 Not Given Q1H KSENIA Potassium Chloride 10 meq/ 105 mls @ 105 mls/hr 05/24/17 11:45 05/24/17 17:00 Sodium Chloride IV 05/24/17 15:44 Infused Q1H KSENIA Infusion Bivalirudin 250 mg/ Sodium 500 mls @ 43.2 mls/hr 05/24/17 15:15 05/27/17 17: 34 Chloride IV Not Given .[id number] KSENIA Sodium Chloride 1,000 mls @ 75 mls/hr 05/28/17 07:45 05/28/17 14:00 Normal Saline IV Infused .[id number] KSENIA Infusion Sodium Chloride 1,000 mls @ 500 mls/hr 05/30/17 10:14 05/30/17 10:41 Normal Saline IV 05/30/17 12:13 500 mls/hr .Q2H ONE Administration Sodium Chloride 1,000 mls @ 60 mls/hr 05/30/17 17:00 05/31/17 06:00 Normal Saline IV 05/31/17 09:39 60 mls/hr .[id number] KSENIA Infusion Insulin Aspart 1 - 5 unit 05/17/17 10:12 05/18/17 06:06 Novolog SQ 2 unit SS PRN Administration Hyperglycemia Protocol Insulin Aspart 2 - 8 unit 05/18/17 08:22 05/21/17 07:30 Novolog SQ 3 unit SS PRN Administration Hyperglycemia Protocol Insulin Aspart 15 unit 05/20/17 10:32 05/20/17 10:36 Novolog SQ 05/20/17 10:33 15 unit ONE TIME ONE Administration Insulin Aspart 2 - 14 unit 05/21/17 11:43 06/10/17 20:31 Novolog SQ 10 unit SS PRN Administration Hyperglycemia Protocol Insulin Aspart 10 unit 05/26/17 12:00 05/26/17 13:54 Novolog SQ Not Given Q6H KSENIA Insulin Aspart 10 unit 05/26/17 15:00 05/27/17 21:06 Novolog SQ Not Given 0300,0900,1500,2100 KSENIA Insulin Aspart 10 unit 05/28/17 15:00 Novolog SQ Q6HR KSENIA Insulin Aspart 10 unit 05/28/17 18:00 05/31/17 06:11 Novolog SQ 10 unit Q6H KSENIA Administration Insulin Aspart 12 unit 05/31/17 08:41 06/03/17 19:14 Novolog SQ Not Given Q6H KSENIA Insulin Aspart 15 unit 06/01/17 15:00 06/02/17 10:37 Novolog SQ Not Given Q6H [facility] Insulin Aspart 18 unit 06/02/17 09:58 06/03/17 17:37 Novolog SQ 18 unit Q6H KSENIA Administration Insulin Glargine 10 unit 05/21/17 21:00 05/21/17 20:14 Lantus SQ 10 unit HS [facility] Administration Insulin Glargine 20 unit 05/22/17 21:00 05/22/17 20:14 Lantus SQ 20 unit HS [facility] Administration Insulin Glargine 40 unit 05/23/17 21:00 05/30/17 21:34 Lantus SQ 40 unit HS [facility] Administration Insulin Glargine 50 unit 05/31/17 08:41 05/31/17 21:06 Lantus SQ 50 unit HS [facility] Administration Insulin Glargine 60 unit 06/01/17 21:00 06/02/17 20:23 Lantus SQ 60 unit HS [facility] Administration Insulin Glargine 30 unit 06/03/17 21:00 06/10/17 20:31 Lantus SQ 30 unit HS [facility] Administration Labetalol HCl 10 mg 05/21/17 20:40 05/22/17 06:05 Trandate IVP 10 mg Q4H PRN Administration INCREASED blood pressure Lactulose 20 gm 06/02/17 10:00 06/02/17 11:09 Lactulose PO 06/02/17 10:01 20 gm O ONE Administration Lidocaine HCl 15 ml 06/08/17 18:06 Xylocaine Viscous 2% PO Q6HR PRN Lidocaine HCl 5 ml 06/11/17 09:38 Magic Mouthwash (Lido/Maalox/Carafate) PO Q4H PRN Lisinopril 10 mg 05/24/17 16:15 05/31/17 08:42 Prinivil PO 10 mg DAILY KSENIA Administration Lisinopril 10 mg 05/31/17 15:18 05/31/17 15:43 Prinivil PO 05/31/17 15:19 10 mg O ONE Administration Lisinopril 20 mg 06/01/17 09:00 06/04/17 09:45 Prinivil PO 20 mg DAILY KSENIA Administration Lisinopril 10 mg 06/05/17 09:00 06/10/17 08:14 Prinivil PO Not Given DAILY KSENIA Lisinopril 2.5 mg 06/11/17 09:00 06/11/17 09:48 Prinivil PO Not Given DAILY KSENIA Lorazepam 1 mg 05/17/17 06:16 05/17/17 06:56 Ativan PO 05/17/17 06:17 1 mg O ONE Administration Lorazepam 0.5 mg 05/17/17 10:13 05/24/17 15:55 Ativan Inj IVP 0.5 mg Q6H PRN Administration Lorazepam 1 mg 05/24/17 19:46 05/31/17 01:43 Ativan Inj IVP 1 mg Q2H PRN Administration Agitation/Air hunger/Pain Lorazepam 0.5 - 1 mg 05/28/17 09:24 06/10/17 22:22 Ativan PO 0.5 mg Q4H PRN Administration Anxiety Lorazepam 0.5 - 1 mg 05/28/17 09:24 Ativan Inj IVP Q4H PRN Anxiety Magnesium Hydroxide 30 ml 05/26/17 12:41 05/26/17 13:53 Mom GT 05/26/17 12:42 30 ml O ONE Administration Magnesium Hydroxide 30 ml 05/28/17 09:24 Mom PO DAILY PRN Constipation Menthol 1 lozenge 05/18/17 08:19 Ricola Sf MM PRN PRN Cough Metformin HCl 500 mg 05/17/17 17:30 05/18/17 10:00 Glucophage PO Not Given BIDWM KSENIA Metformin HCl 500 mg 05/19/17 09:00 05/21/17 10:52 Glucophage PO Not Given BIDWM KSENIA Metformin HCl 500 mg 06/10/17 17:30 06/11/17 09:33 Glucophage PO 500 mg BIDWM KSENIA Administration Methylprednisolone Sodium Succinate 125 mg 05/17/17 06:26 05/17/17 06:53 Solu-Medrol IM 05/17/17 06:27 125 mg O ONE Administration Methylprednisolone Sodium Succinate 125 mg 05/17/17 15:00 05/20/17 08:37 Solu-Medrol IVP 125 mg Q6HR KSENIA Administration Methylprednisolone Sodium Succinate 80 mg 05/20/17 15:00 05/24/17 08:57 Solu-Medrol IVP 80 mg Q6HR KSENIA Administration Methylprednisolone Sodium Succinate 80 mg 05/24/17 17:00 05/26/17 08:23 Solu-Medrol IVP 80 mg Q8HR KSENIA Administration Methylprednisolone Sodium Succinate 80 mg 05/26/17 21:00 05/29/17 08:15 Solu-Medrol IVP 80 mg Q12HR KSENIA Administration Methylprednisolone Sodium Succinate 60 mg 05/29/17 21:00 06/01/17 21:57 Solu-Medrol IVP 06/02/17 04:00 60 mg Q12HR KSENIA Administration Metoclopramide HCl 5 mg 05/23/17 17:30 05/30/17 10:42 Reglan GT 5 mg Q6H KSENIA Administration Metoclopramide HCl 5 - 10 mg 05/28/17 09:24 Reglan IVP Q6H PRN Nausea &/or vomiting Metoclopramide HCl 5 mg 05/30/17 14:00 06/03/17 23:15 Reglan GT Not Given Q6H KSENIA Metoprolol Tartrate 15 mg 05/21/17 09:18 05/21/17 09:05 Lopressor IVP 05/21/17 09:19 15 mg ONCE ONE Administration Metoprolol Tartrate 5 mg 05/28/17 10:01 05/28/17 10:00 Lopressor IVP 05/28/17 10:02 5 mg ONCE ONE Administration Morphine Sulfate 1 - 2 mg 05/17/17 10:08 05/24/17 17:56 Morphine Sulfate Inj IVP 2 mg Q2H PRN Administration Pain Morphine Sulfate 2 - 4 mg 05/28/17 09:24 05/28/17 10:17 Morphine Sulfate Inj IVP 05/29/17 09:23 4 mg Q2H PRN Administration Pain Morphine Sulfate 2 - 4 mg 05/28/17 09:24 06/02/17 08:19 Morphine Sulfate Inj IVP 2 mg Q5M PRN Administration Angina Neomycin/Polymyxin/Bacitracin 1 applic 06/06/17 13:00 06/06/17 13:10 Neosporin TP 06/06/17 13:01 1 applic O ONE Administration Nitroglycerin 0.4 mg 05/17/17 10:14 05/21/17 08:35 Nitrostat SL 0.4 mg Q5MIN3 PRN Administration CP Nitroglycerin 0.4 mg 05/28/17 09:24 Nitrostat SL Q5M PRN Angina Nitroglycerin 0.4 mg 05/31/17 23:49 06/02/17 08:11 Nitrostat SL 0.4 mg Q5M PRN Administration Chest pain --Pom--(Itraconazole 200 mg 05/17/17 21:00 05/29/17 09:39 [Itraconazole] 200 PO Not Given Mg) BID KSENIA Nystatin 5 ml 06/03/17 21:00 06/11/17 09:48 Mycostatin PO 06/13/17 20:59 Not Given QID KSENIA Omeprazole 40 mg 05/18/17 06:30 06/11/17 05:52 Prilosec PO Not Given ACB KSENIA Ondansetron HCl 4 mg 05/17/17 10:08 05/19/17 02:45 Zofran IVP 4 mg Q6H PRN Administration Nausea &/or vomiting Ondansetron HCl 4 mg 05/28/17 09:24 Zofran IVP Q6H PRN Nausea &/or vomiting Oseltamivir Phosphate 75 mg 05/29/17 21:00 06/03/17 09:27 Tamiflu 06/03/17 09:01 75 mg BID KSENIA Administration Pantoprazole Sodium 40 mg 05/22/17 09:00 05/31/17 08:44 Protonix Iv IVP 40 mg DAILY KSENIA Administration Pharmacy Consult 1 each 05/17/17 10:32 Pharmacy Consult - Fall Risk XX 05/17/17 10:33 ONE TIME ONE Pharmacy Consult 1 each 05/27/17 10:17 Pharmacy Consult - Fall Risk XX 05/27/17 10:18 ONE TIME ONE Pharmacy Consult 1 each 06/05/17 10:03 Pharmacy Consult - Fall Risk XX 06/05/17 10:04 ONE TIME ONE Polyethylene Glycol 17 gm 06/03/17 09:00 06/11/17 09:49 Miralax PO Not Given DAILY KSENIA Potassium Chloride 40 meq 05/24/17 18:10 02/18/18 06:13 Kcl Oral Liq 20 Meq/15 Ml PO Not Given BIDWM KSENIA Potassium Chloride 40 meq 05/25/17 13:00 05/26/17 08:22 Kcl Oral Liq 20 Meq/15 Ml PO 40 meq QID KSENIA Administration Potassium Chloride 40 meq 05/26/17 12:00 05/27/17 12:04 Kcl Oral Liq 20 Meq/15 Ml PO 40 meq TIDWM KSENIA Administration Potassium Chloride 40 meq 05/27/17 17:30 05/29/17 07:59 Kcl Oral Liq 20 Meq/15 Ml PO 40 meq BIDWM KSENIA Administration Potassium Chloride 40 meq 05/29/17 09:00 05/30/17 08:42 Kcl Oral Liq 20 Meq/15 Ml PO 40 meq DAILY KSENIA Administration Prednisone 60 mg 06/02/17 08:00 06/03/17 09:20 Deltasone 20 Mg PO 60 mg WB KSENIA Administration Prednisone 50 mg 06/03/17 11:15 06/05/17 09:02 Deltasone 50 Mg PO 50 mg WB KSENIA Administration Prednisone 40 mg 06/06/17 08:00 06/10/17 08:20 Deltasone 20 Mg PO 40 mg WB KSENIA Administration Prednisone 30 mg 06/11/17 08:00 06/11/17 09:34 Deltasone 20 Mg PO 30 mg WB KSENIA Administration Promethazine HCl 12.5 - 25 mg 05/28/17 09:24 Phenergan Inj IVP Q6HR PRN Nausea &/or vomiting Simvastatin 20 mg 05/17/17 21:00 05/27/17 20:36 Zocor PO Not Given HS KSENIA Sodium Chloride 10 - 80 ml 05/17/17 05:20 06/05/17 11:42 Iv Flush IVF 20 ml PRN PRN Administration Flushing Sodium Chloride 1 spray 05/19/17 11:42 05/19/17 16:37 Deep Sea Nasal Moisturizing [place] EA NOSTRIL 1 spray PRN PRN Administration Congestion Sodium Chloride 500 ml 05/25/17 21:40 05/25/17 21:52 Normal Saline IV 500 ml PRN PRN Administration Throat Lozenges 3 spray 06/08/17 22:18 06/08/17 23:11 Chloraseptic [place] PO 3 spray Q2H PRN Administration Ticagrelor 90 mg 05/28/17 21:01 06/11/17 09:34 Brilinta PO 90 mg Q12H KSENIA Administration Vancomycin HCl 1 each 05/21/17 15:19 05/21/17 15:53 Pharmacy Consult - Vancomycin 05/21/17 15:20 1 each O ONE Administration - Urinary Catheter Management Urethral Cath placed during this visit: no Results 06/09/17 05:02 06/09/17 05:02 Assessment and Plan - Assessment and Plan (1) Community acquired pneumonia Status: Acute (2) Acute and chronic respiratory failure with hypercapnia Status: Acute (3) Chest pain Status: Acute (4) Atherosclerotic heart disease of [place] coronary artery without angina pectoris Status: Chronic (5) Essential (primary) hypertension Status: Chronic (6) Type 2 diabetes mellitus without complications Status: Chronic (7) Obesity (BMI 30-39.9) Status: Chronic (8) ANGELLA (obstructive sleep apnea) Status: Chronic (9) NSTEMI (non-ST elevated myocardial infarction) Status: Acute - Attestation Attestation Narrative: 06/13/17 12:59 Recommendation After examining the patient I agree with the above assessment. I am involved in the formulation of the patient's plan of care. Hospital Course Summary Disclaimer: The visit summary below is not to be considered part of the above Progress Note.
--- NOTE | 2017-06-06 15:47 | Pulmonology Progress Note ---
Subjective Principal diagnosis: SOB, respiratory failure Interval history: breathing better. awake and alert, appropriate states he is being dismissed Exam Vital signs: Temperature 96.4 F L 06/06/17 10:37 Pulse Rate 73 06/06/17 10:37 Respiratory Rate 18 06/06/17 12:05 Blood Pressure 103/58 06/06/17 10:37 Pulse Oximetry 100 06/06/17 12:05 Inpatient Medications: Generic Name Dose Route Start Last Admin Trade Name Freq PRN Reason Stop Dose Admin Acetaminophen 325 - 650 mg 05/17/17 10:08 06/01/17 21:51 Tylenol PO 650 mg Q5H PRN Administration Discomfort Hydrocodone Bitart/Acetaminophen 1 tab 05/17/17 10:14 06/06/17 05:37 [place] 7.5/325 PO 1 tab Q6H PRN Administration Pain Al Hydroxide/Mg Hydroxide 30 ml 05/28/17 09:24 Maalox Plus PO Q3H PRN Indigestion Albuterol/Ipratropium 3 ml 05/17/17 10:11 Duoneb AEROSOL RTQID PRN Albuterol/Ipratropium 3 ml 05/21/17 15:15 06/06/17 12:05 Duoneb AEROSOL 3 ml Q4H [facility]IA Administration Amlodipine Besylate 5 mg 06/04/17 11:41 06/06/17 10:38 Norvasc PO 5 mg DAILY [facility] Administration Aspirin 81 mg 05/28/17 09:24 06/06/17 10:40 Ecotrin PO 81 mg DAILY [facility] Administration Atenolol 25 mg 05/29/17 09:00 06/06/17 10:38 Tenormin PO 25 mg BID [facility] Administration Atorvastatin Calcium 80 mg 05/28/17 21:00 06/05/17 22:04 Lipitor PO 80 mg HS KS[facility]IA Administration Bisacodyl 10 mg 05/27/17 15:11 Dulcolax RECTALLY DAILY PRN Constipation Bisacodyl 5 - 10 mg 05/28/17 09:24 Dulcolax PO DAILY PRN Constipation Budesonide 0.5 mg 05/17/17 19:00 06/06/17 08:05 Pulmicort Inhalation AEROSOL 0.5 mg RTBID KSENIA Administration Bupropion HCl 150 mg 05/17/17 21:00 06/06/17 10:37 Wellbutrin Sr PO 150 mg BID KS[facility] Administration Citalopram Hydrobromide 40 mg 05/18/17 09:00 06/06/17 10:38 Celexa PO 40 mg DAILY [facility] Administration Gabapentin 300 mg 05/17/17 15:00 06/06/17 10:37 Neurontin PO 300 mg TID KS[facility] Administration Glucose 37.5 gm 05/17/17 10:12 Glutose 15 PO PRN PRN Hypoglycemia Guaifenesin 400 mg 05/29/17 12:00 06/06/17 05:38 Robitussin Liq PO 400 mg Q6H [facility] Administration Haloperidol 1 mg 06/03/17 20:30 Haldol PO Q4H PRN Insulin Aspart 2 - 14 unit 05/21/17 11:43 06/05/17 22:14 Novolog SQ 2 unit SS PRN Administration Hyperglycemia Protocol Insulin Glargine 30 unit 06/03/17 21:00 06/05/17 22:13 Lantus SQ 30 unit HS [facility] Administration Lisinopril 10 mg 06/05/17 09:00 06/06/17 10:38 Prinivil PO 10 mg DAILY [facility] Administration Lorazepam 0.5 - 1 mg 05/28/17 09:24 06/02/17 13:52 Ativan PO 0.5 mg Q4H PRN Administration Anxiety Magnesium Hydroxide 30 ml 05/28/17 09:24 Mom PO DAILY PRN Constipation Nitroglycerin 0.4 mg 05/31/17 23:49 06/02/17 08:11 Nitrostat SL 0.4 mg Q5M PRN Administration Chest pain Nystatin 5 ml 06/03/17 21:00 06/06/17 10:38 Mycostatin PO 06/13/17 20:59 5 ml QID [facility] Administration Omeprazole 40 mg 05/18/17 06:30 06/06/17 05:37 Prilosec PO 40 mg ACB [facility] Administration Ondansetron HCl 4 mg 05/28/17 09:24 Zofran IVP Q6H PRN Nausea &/or vomiting Polyethylene Glycol 17 gm 06/03/17 09:00 06/06/17 10:38 Miralax PO Not Given DAILY [facility] Prednisone 40 mg 06/06/17 08:00 06/06/17 10:37 Deltasone 20 Mg PO 40 mg WB [facility]IA Administration Sodium Chloride 10 - 80 ml 05/17/17 05:20 06/05/17 11:42 Iv Flush IVF 20 ml PRN PRN Administration Flushing Sodium Chloride 1 spray 05/19/17 11:42 05/19/17 16:37 [place] Nasal Moisturizing [place] EA NOSTRIL 1 spray PRN PRN Administration Congestion Sodium Chloride 500 ml 05/25/17 21:40 05/25/17 21:52 Normal Saline IV 500 ml PRN PRN Administration Ticagrelor 90 mg 05/28/17 21:01 06/06/17 10:37 Brilinta PO 90 mg Q12H [facility] Administration Discontinued Medications Generic Name Dose Route Start Last Admin Trade Name Freq PRN Reason Stop Dose Admin Acetaminophen 650 mg 05/21/17 15:10 Tylenol Supp DC Q5H PRN Pain Acetaminophen 325 - 650 mg 05/28/17 09:24 Tylenol PO Q5H PRN Pain Hydrocodone Bitart/Acetaminophen 1 tab 05/17/17 21:00 05/31/17 08:42 [place] 7.5/325 PO 1 tab BID KS[facility] Administration Hydrocodone Bitart/Acetaminophen 1 - 2 tab 05/28/17 09:24 [place] 5/325 PO Q5H PRN Pain Acetazolamide 500 mg 05/19/17 10:51 05/19/17 11:25 Diamox PO 05/19/17 10:52 500 mg O ONE Administration Adenosine 12 mg 05/21/17 09:17 05/21/17 08:50 Adenocard IVP 05/21/17 09:18 12 mg O ONE Administration Adenosine 6 mg 05/21/17 09:18 05/21/17 09:23 Adenocard IVP 05/21/17 09:19 6 mg O ONE Administration Albuterol/Ipratropium 6 ml 05/17/17 05:19 05/17/17 05:33 Duoneb AEROSOL 05/17/17 05:20 6 ml O ONE Administration Albuterol/Ipratropium 3 ml 05/17/17 11:00 05/21/17 18:22 Duoneb AEROSOL Not Given RTQID [facility] Amlodipine Besylate 10 mg 05/24/17 13:46 06/04/17 09:44 Norvasc PO 10 mg DAILY [facility] Administration Aspirin 81 mg 05/18/17 09:00 05/23/17 08:26 Asa PO Not Given DAILY [facility] Aspirin 81 mg 05/22/17 16:00 05/31/17 08:42 Asa GT 81 mg DAILY [facility] Administration Atenolol 25 mg 05/18/17 09:00 05/24/17 08:58 Tenormin PO 25 mg DAILY [facility] Administration Atenolol 50 mg 05/25/17 09:00 05/28/17 12:30 Tenormin PO Not Given DAILY [facility] Atenolol 25 mg 05/24/17 09:40 05/24/17 11:09 Tenormin PO 05/24/17 09:41 25 mg O ONE Administration Atropine Sulfate 0.5 mg 05/28/17 09:24 Atropine IVP Q5M PRN Bradycardia Benzocaine 1 lozenge 05/20/17 18:54 Cepacol Sore Throat Lozenge MM Q2HR PRN Sore throat Bisacodyl 10 mg 05/28/17 09:24 Dulcolax RECTALLY DAILY PRN Constipation Bivalirudin 250 mg 05/24/17 14:15 Angiomax IV NOW [facility] Clonidine HCl 0.1 mg 05/22/17 09:00 06/05/17 09:05 Catapres-Tts 1 TD Not Given Q7D@0900 [facility] Clonidine HCl 1 removal 05/29/17 08:59 06/05/17 09:05 Catapres Patch Removal TD 1 removal Q7D [facility] Administration Enoxaparin Sodium 1 each 05/18/17 10:47 05/18/17 12:54 Pharmacy Consult - Lovenox MC 05/18/17 10:48 1 each O ONE Administration Enoxaparin Sodium 50 mg 05/18/17 11:45 05/20/17 08:37 Lovenox SQ 50 mg DAILY [facility] Administration Enoxaparin Sodium 142 mg 05/27/17 17:00 05/28/17 09:34 Lovenox SQ 142 mg DAILY [facility] Administration Furosemide 20 mg 05/18/17 09:00 05/20/17 08:37 Lasix PO 20 mg DAILY [facility] Administration Furosemide 40 mg 05/21/17 09:37 05/21/17 09:45 Lasix IVP 05/21/17 09:38 40 mg ONCE ONE Administration Furosemide 20 mg 05/23/17 21:00 05/24/17 08:59 Lasix IVP 20 mg Q12HR [facility] Administration Furosemide 20 mg 05/24/17 17:00 05/27/17 09:31 Lasix IVP 20 mg Q8HR [facility] Administration Furosemide 20 mg 05/27/17 21:00 05/29/17 08:09 Lasix IVP 20 mg Q12H [facility] Administration Furosemide 20 mg 05/29/17 09:00 Lasix IVP DAILY [facility] Guaifenesin 1,200 mg 05/18/17 09:00 05/29/17 08:14 Mucinex La PO Not Given BID [facility] Haloperidol Decanoate 1 mg 06/01/17 17:43 06/02/17 17:00 Haldol Liquid GT 1 mg Q4H PRN Administration Heparin Sodium (Beef Lung) 5,000 unit 05/21/17 09:23 05/21/17 10:07 Heparin Bolus IVP 05/21/17 09:24 5,000 unit O ONE Administration Heparin Sodium (Beef Lung) 3,000 unit 05/21/17 17:45 05/21/17 17:53 Heparin Bolus IVP 05/21/17 17:46 3,000 unit O ONE Administration Heparin Sodium (Beef Lung) 3,000 unit 05/22/17 03:37 05/22/17 03:46 Heparin Bolus IVP 05/22/17 03:38 3,000 unit O ONE Administration Heparin Sodium (Porcine) 1 each 05/21/17 09:08 Pharmacy Consult - Heparin MC 05/21/17 09:09 ONE TIME ONE Hydralazine HCl 5 mg 05/22/17 08:47 05/22/17 10:09 Apresoline IVP 5 mg Q6H PRN Administration Hypertension Hydralazine HCl 10 mg 05/22/17 15:01 05/28/17 06:06 Apresoline IVP 10 mg Q4H PRN Administration Hypertension Sodium Chloride 1,000 mls @ 999.9 mls/hr 05/17/17 05:44 05/17/17 11:20 Normal Saline IV 05/17/17 06:43 Infused .Q1H ONE Infusion Sodium Chloride 1,000 mls @ 75 mls/hr 05/17/17 10:08 05/19/17 11:19 Normal Saline IV Infused .[id number] [facility]IA Infusion Ceftriaxone Sodium 2 gm/ 100 mls @ 200 mls/hr 05/18/17 01:15 05/18/17 01:50 Sodium Chloride IV Infused Q24H [facility] Infusion Ceftriaxone Sodium 2 gm/ 50 mls @ 100 mls/hr 05/18/17 21:00 05/20/17 21:55 Sodium Chloride IV Infused Q24H [facility] Infusion Heparin Sodium (Porcine) 20,000 unit in 500 mls @ 44 mls/hr 05/21/17 09:30 13:17 Heparin Drip IV Infused .[id number] KSENIA Titration Protocol Dexmedetomidine HCl 200 mcg/ 52 mls @ 6.87 mls/hr 05/21/17 09:52 05/21/17 20: 00 Sodium Chloride IV 05/21/17 20:29 0 mcg/kg/hr .Q7H35M PRN 0 mls/hr Protocol Titration 0.2 MCG/KG/HR Propofol 1,000 mg in 100 mls @ 3.969 mls/hr 05/21/17 10:39 05/21/17 14:28 Diprivan IV 0 mcg/kg/min .Q24H PRN 0 mls/hr Protocol Infusion 5 MCG/KG/MIN Fentanyl 1,000 mcg/ Sodium 100 mls @ 0 mls/hr 05/21/17 13:02 05/27/17 14:45 Chloride IV Infused .Q0M PRN Titration Protocol Per Protocol Sodium Chloride 250 mls @ 999.9 mls/hr 05/21/17 13:15 05/21/17 14:28 Normal Saline IV 05/21/17 13:29 Infused .Q15M [facility] Infusion Cefepime HCl 1 gm/ Sodium 50 mls @ 100 mls/hr 05/21/17 15:30 05/29/17 10:46 Chloride IV Infused Q6H [facility] Infusion Levofloxacin/Dextrose 750 mg in 150 mls @ 100 mls/hr 05/21/17 16:00 05/28/17 17:15 Levaquin Premix IV Infused Q24H [facility] Infusion Vancomycin HCl 1,500 mg/ 500 mls @ 250 mls/hr 05/21/17 18:00 05/24/17 12:15 Sodium Chloride IV Infused Q8H [facility] Infusion Dexmedetomidine HCl 1,000 mcg/ 260 mls @ 6.87 mls/hr 05/21/17 20:30 05/27/17 14:45 Sodium Chloride IV 05/27/17 14:45 Infused .Q24H PRN Titration Protocol 0.2 MCG/KG/HR Potassium Chloride 10 meq in 100 mls @ 100 mls/hr 05/23/17 09:45 05/23/17 17: 34 Potassium Chloride Premix IV 05/23/17 13:44 Infused Q1H [facility] Infusion Heparin Sodium (Porcine) 20,000 unit in 500 mls @ 45 mls/hr 05/23/17 16:00 06:16 Heparin Drip IV Not Given .Q11H7M [facility] Protocol Potassium Chloride 10 meq in 100 mls @ 100 mls/hr 05/24/17 09:45 05/24/17 15: 56 Potassium Chloride Premix IV 05/24/17 13:44 Not Given Q1H [facility] Potassium Chloride 10 meq/ 105 mls @ 105 mls/hr 05/24/17 11:45 05/24/17 17:00 Sodium Chloride IV 05/24/17 15:44 Infused Q1H [facility] Infusion Bivalirudin 250 mg/ Sodium 500 mls @ 43.2 mls/hr 05/24/17 15:15 05/27/17 17: 34 Chloride IV Not Given .[id number] [facility] Sodium Chloride 1,000 mls @ 75 mls/hr 05/28/17 07:45 05/28/17 14:00 Normal Saline IV Infused .[id number] [facility] Infusion Sodium Chloride 1,000 mls @ 500 mls/hr 05/30/17 10:14 05/30/17 10:41 Normal Saline IV 05/30/17 12:13 500 mls/hr .Q2H ONE Administration Sodium Chloride 1,000 mls @ 60 mls/hr 05/30/17 17:00 05/31/17 06:00 Normal Saline IV 05/31/17 09:39 60 mls/hr .[id number] [facility] Infusion Insulin Aspart 1 - 5 unit 05/17/17 10:12 05/18/17 06:06 Novolog SQ 2 unit SS PRN Administration Hyperglycemia Protocol Insulin Aspart 2 - 8 unit 05/18/17 08:22 05/21/17 07:30 Novolog SQ 3 unit SS PRN Administration Hyperglycemia Protocol Insulin Aspart 15 unit 05/20/17 10:32 05/20/17 10:36 Novolog SQ 05/20/17 10:33 15 unit ONE TIME ONE Administration Insulin Aspart 10 unit 05/26/17 12:00 05/26/17 13:54 Novolog SQ Not Given Q6H [facility] Insulin Aspart 10 unit 05/26/17 15:00 05/27/17 21:06 Novolog SQ Not Given 0300,0900,1500,2100 [facility] Insulin Aspart 10 unit 05/28/17 15:00 Novolog SQ Q6HR [facility] Insulin Aspart 10 unit 05/28/17 18:00 05/31/17 06:11 Novolog SQ 10 unit Q6H [facility] Administration Insulin Aspart 12 unit 05/31/17 08:41 06/03/17 19:14 Novolog SQ Not Given Q6H [facility] Insulin Aspart 15 unit 06/01/17 15:00 06/02/17 10:37 Novolog SQ Not Given Q6H [facility] Insulin Aspart 18 unit 06/02/17 09:58 06/03/17 17:37 Novolog SQ 18 unit Q6H [facility] Administration Insulin Glargine 10 unit 05/21/17 21:00 05/21/17 20:14 Lantus SQ 10 unit HS [facility] Administration Insulin Glargine 20 unit 05/22/17 21:00 05/22/17 20:14 Lantus SQ 20 unit HS [facility] Administration Insulin Glargine 40 unit 05/23/17 21:00 05/30/17 21:34 Lantus SQ 40 unit HS [facility] Administration Insulin Glargine 50 unit 05/31/17 08:41 05/31/17 21:06 Lantus SQ 50 unit HS [facility] Administration Insulin Glargine 60 unit 06/01/17 21:00 06/02/17 20:23 Lantus SQ 60 unit HS [facility] Administration Labetalol HCl 10 mg 05/21/17 20:40 05/22/17 06:05 Trandate IVP 10 mg Q4H PRN Administration INCREASED blood pressure Lactulose 20 gm 06/02/17 10:00 06/02/17 11:09 Lactulose PO 06/02/17 10:01 20 gm O ONE Administration Lisinopril 10 mg 05/24/17 16:15 05/31/17 08:42 Prinivil PO 10 mg DAILY [facility] Administration Lisinopril 10 mg 05/31/17 15:18 05/31/17 15:43 Prinivil PO 05/31/17 15:19 10 mg O ONE Administration Lisinopril 20 mg 06/01/17 09:00 06/04/17 09:45 Prinivil PO 20 mg DAILY [facility] Administration Lorazepam 1 mg 05/17/17 06:16 05/17/17 06:56 Ativan PO 05/17/17 06:17 1 mg O ONE Administration Lorazepam 0.5 mg 05/17/17 10:13 05/24/17 15:55 Ativan Inj IVP 0.5 mg Q6H PRN Administration Lorazepam 1 mg 05/24/17 19:46 05/31/17 01:43 Ativan Inj IVP 1 mg Q2H PRN Administration Agitation/Air hunger/Pain Lorazepam 0.5 - 1 mg 05/28/17 09:24 Ativan Inj IVP Q4H PRN Anxiety Magnesium Hydroxide 30 ml 05/26/17 12:41 05/26/17 13:53 Mom GT 05/26/17 12:42 30 ml O ONE Administration Menthol 1 lozenge 05/18/17 08:19 Ricola Sf MM PRN PRN Cough Metformin HCl 500 mg 05/17/17 17:30 05/18/17 10:00 Glucophage PO Not Given BIDWM [facility] Metformin HCl 500 mg 05/19/17 09:00 05/21/17 10:52 Glucophage PO Not Given BIDWM [facility] Methylprednisolone Sodium Succinate 125 mg 05/17/17 06:26 05/17/17 06:53 Solu-Medrol IM 05/17/17 06:27 125 mg O ONE Administration Methylprednisolone Sodium Succinate 125 mg 05/17/17 15:00 05/20/17 08:37 Solu-Medrol IVP 125 mg Q6HR [facility] Administration Methylprednisolone Sodium Succinate 80 mg 05/20/17 15:00 05/24/17 08:57 Solu-Medrol IVP 80 mg Q6HR [facility] Administration Methylprednisolone Sodium Succinate 80 mg 05/24/17 17:00 05/26/17 08:23 Solu-Medrol IVP 80 mg Q8HR [facility] Administration Methylprednisolone Sodium Succinate 80 mg 05/26/17 21:00 05/29/17 08:15 Solu-Medrol IVP 80 mg Q12HR [facility] Administration Methylprednisolone Sodium Succinate 60 mg 05/29/17 21:00 06/01/17 21:57 Solu-Medrol IVP 06/02/17 04:00 60 mg Q12HR [facility] Administration Metoclopramide HCl 5 mg 05/23/17 17:30 05/30/17 10:42 Reglan GT 5 mg Q6H [facility] Administration Metoclopramide HCl 5 - 10 mg 05/28/17 09:24 Reglan IVP Q6H PRN Nausea &/or vomiting Metoclopramide HCl 5 mg 05/30/17 14:00 06/03/17 23:15 Reglan GT Not Given Q6H [facility] Metoprolol Tartrate 15 mg 05/21/17 09:18 05/21/17 09:05 Lopressor IVP 05/21/17 09:19 15 mg ONCE ONE Administration Metoprolol Tartrate 5 mg 05/28/17 10:01 05/28/17 10:00 Lopressor IVP 05/28/17 10:02 5 mg ONCE ONE Administration Morphine Sulfate 1 - 2 mg 05/17/17 10:08 05/24/17 17:56 Morphine Sulfate Inj IVP 2 mg Q2H PRN Administration Pain Morphine Sulfate 2 - 4 mg 05/28/17 09:24 05/28/17 10:17 Morphine Sulfate Inj IVP 05/29/17 09:23 4 mg Q2H PRN Administration Pain Morphine Sulfate 2 - 4 mg 05/28/17 09:24 06/02/17 08:19 Morphine Sulfate Inj IVP 2 mg Q5M PRN Administration Angina Neomycin/Polymyxin/Bacitracin 1 applic 06/06/17 13:00 06/06/17 13:10 Neosporin TP 06/06/17 13:01 1 applic O ONE Administration Nitroglycerin 0.4 mg 05/17/17 10:14 05/21/17 08:35 Nitrostat SL 0.4 mg Q5MIN3 PRN Administration CP Nitroglycerin 0.4 mg 05/28/17 09:24 Nitrostat SL Q5M PRN Angina --Pom--(Itraconazole 200 mg 05/17/17 21:00 05/29/17 09:39 [Itraconazole] 200 PO Not Given Mg) BID [facility] Ondansetron HCl 4 mg 05/17/17 10:08 05/19/17 02:45 Zofran IVP 4 mg Q6H PRN Administration Nausea &/or vomiting Oseltamivir Phosphate 75 mg 05/29/17 21:00 06/03/17 09:27 Tamiflu 06/03/17 09:01 75 mg BID [facility] Administration Pantoprazole Sodium 40 mg 05/22/17 09:00 05/31/17 08:44 Protonix Iv IVP 40 mg DAILY [facility] Administration Pharmacy Consult 1 each 05/17/17 10:32 Pharmacy Consult - Fall Risk XX 05/17/17 10:33 ONE TIME ONE Pharmacy Consult 1 each 05/27/17 10:17 Pharmacy Consult - Fall Risk XX 05/27/17 10:18 ONE TIME ONE Pharmacy Consult 1 each 06/05/17 10:03 Pharmacy Consult - Fall Risk XX 06/05/17 10:04 ONE TIME ONE Potassium Chloride 40 meq 05/24/17 18:10 05/26/17 06:13 Kcl Oral Liq 20 Meq/15 Ml PO Not Given BIDWM [facility] Potassium Chloride 40 meq 05/25/17 13:00 05/26/17 08:22 Kcl Oral Liq 20 Meq/15 Ml PO 40 meq QID [facility] Administration Potassium Chloride 40 meq 05/26/17 12:00 05/27/17 12:04 Kcl Oral Liq 20 Meq/15 Ml PO 40 meq TIDWM [facility] Administration Potassium Chloride 40 meq 05/27/17 17:30 05/29/17 07:59 Kcl Oral Liq 20 Meq/15 Ml PO 40 meq BIDWM [facility] Administration Potassium Chloride 40 meq 05/29/17 09:00 05/30/17 08:42 Kcl Oral Liq 20 Meq/15 Ml PO 40 meq DAILY [facility] Administration Prednisone 60 mg 06/02/17 08:00 06/03/17 09:20 Deltasone 20 Mg PO 60 mg WB [facility] Administration Prednisone 50 mg 06/03/17 11:15 06/05/17 09:02 Deltasone 50 Mg PO 50 mg WB [facility] Administration Promethazine HCl 12.5 - 25 mg 05/28/17 09:24 Phenergan Inj IVP Q6HR PRN Nausea &/or vomiting Simvastatin 20 mg 05/17/17 21:00 05/27/17 20:36 Zocor PO Not Given HS [facility] Vancomycin HCl 1 each 05/21/17 15:19 05/21/17 15:53 Pharmacy Consult - Vancomycin MC 05/21/17 15:20 1 each O ONE Administration - Constitutional no acute distress - Routine HEENT Exam Head: Present: normocephalic, atraumatic - Routine Respiratory Exam Present: decreased breath sounds. Absent: accessory muscle use, wheezes - Routine Cardiovascular Exam Present: RRR - Routine Abdominal Exam Present: soft - Urinary Catheter Management Urethral Cath placed during this visit: yes Insertion date: 05/21/17 Results - Laboratory Findings Laboratory: Laboratory Results - last 48 hr 06/04/17 06/04/17 06/04/17 17:06 19:25 21:58 WBC RBC Hgb Hct MCV MCH MCHC RDW Std Deviation Plt Count MPV Immature Gran % (Auto) Neut % (Auto) Lymph % (Auto) [place] % (Auto) Eos % (Auto) Baso % (Auto) Neut # (Auto) Lymph # (Auto) [place] # (Auto) Eos # (Auto) Baso # (Auto) Abs Immat Gran (auto) Turbidity Sodium Potassium Chloride Carbon Dioxide Anion Gap BUN Creatinine GFR Calculation BUN/Creatinine Ratio Glucose Glucometer 234 230 138 Calculated Osmolality Calcium Icterus Index Specimen Hemolysis 06/04/17 06/05/17 06/05/17 23:23 02:14 05:06 WBC RBC Hgb Hct MCV MCH MCHC RDW Std Deviation Plt Count MPV Immature Gran % (Auto) Neut % (Auto) Lymph % (Auto) [place] % (Auto) Eos % (Auto) Baso % (Auto) Neut # (Auto) Lymph # (Auto) [place] # (Auto) Eos # (Auto) Baso # (Auto) Abs Immat Gran (auto) Turbidity Sodium Potassium Chloride Carbon Dioxide Anion Gap BUN Creatinine GFR Calculation BUN/Creatinine Ratio Glucose Glucometer 142 111 102 Calculated Osmolality Calcium Icterus Index Specimen Hemolysis 06/05/17 06/05/17 06/05/17 06:22 06:22 07:16 WBC 10.9 RBC 3.59 L Hgb 10.8 L Hct 34.3 L MCV 95.5 MCH 30.1 MCHC 31.5 RDW Std Deviation 44.5 Plt Count 75 L MPV Not performed Immature Gran % (Auto) 1.9 H Neut % (Auto) 78.5 H Lymph % (Auto) 14.6 L [place] % (Auto) 4.2 Eos % (Auto) 0.6 Baso % (Auto) 0.2 Neut # (Auto) 8.6 H Lymph # (Auto) 1.6 [place] # (Auto) 0.5 Eos # (Auto) 0.1 Baso # (Auto) 0.0 Abs Immat Gran (auto) 0.21 H Turbidity < 20 Sodium 142 Potassium 4.1 Chloride 102 Carbon Dioxide 33 H Anion Gap 7 BUN 31.0 H Creatinine 0.7 L GFR Calculation 114 BUN/Creatinine Ratio 44 H Glucose 96 Glucometer 117 Calculated Osmolality 280 Calcium 8.7 Icterus Index < 2 Specimen Hemolysis < 15 06/05/17 06/05/17 06/05/17 09:14 11:13 15:42 WBC RBC Hgb Hct MCV MCH MCHC RDW Std Deviation Plt Count MPV Immature Gran % (Auto) Neut % (Auto) Lymph % (Auto) [place] % (Auto) Eos % (Auto) Baso % (Auto) Neut # (Auto) Lymph # (Auto) [place] # (Auto) Eos # (Auto) Baso # (Auto) Abs Immat Gran (auto) Turbidity Sodium Potassium Chloride Carbon Dioxide Anion Gap BUN Creatinine GFR Calculation BUN/Creatinine Ratio Glucose Glucometer 238 194 242 Calculated Osmolality Calcium Icterus Index Specimen Hemolysis 06/05/17 06/06/17 06/06/17 22:02 05:35 10:31 WBC RBC Hgb Hct MCV MCH MCHC RDW Std Deviation Plt Count MPV Immature Gran % (Auto) Neut % (Auto) Lymph % (Auto) [place] % (Auto) Eos % (Auto) Baso % (Auto) Neut # (Auto) Lymph # (Auto) [place] # (Auto) Eos # (Auto) Baso # (Auto) Abs Immat Gran (auto) Turbidity Sodium Potassium Chloride Carbon Dioxide Anion Gap BUN Creatinine GFR Calculation BUN/Creatinine Ratio Glucose Glucometer 167 122 220 Calculated Osmolality Calcium Icterus Index Specimen Hemolysis Assessment and Plan (1) Acute exacerbation of chronic obstructive airways disease Status: Acute Assessment and plan: neb bronchodilators. albuterol/iprat. Current Visit: Yes (2) Acute and chronic respiratory failure with hypercapnia Status: Acute Assessment and plan: doing well with O2 by NC to keep sat >90%., NIPPV as needed. 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
[2017-06-06] MEDS: INSULIN ASPART 100unit/ml INJECTION SQ PRN ×2 (17:29→20:09)
--- NOTE | 2017-06-06 18:30 | Progress Note ---
- Date 06/06/17 Subjective: Patient [place] [facility]. He was insisting on going home despite therapy, CM and others explaining that it was unsafe to do so. He had 2 sons come to take him home. He wanted his [facility] out. His PICC was removed after AMA paperwork was signed. He then fell to the floor in the room when he tried to leave while family watched. Patient remained on the floor for a time because he refused to get lifted to the bed. Ultimately patient decided to stay. Objective Vital signs: Temperature 96.4 F L 06/06/17 17:01 Pulse Rate 72 06/06/17 17:01 Respiratory Rate 24 06/06/17 18:18 Blood Pressure 100/60 06/06/17 17:01 Pulse Oximetry 95 06/06/17 18:18 Rhythm: Normal Sinus Rhythm Height/Weight/BMI: Height 6 ft 0.83 in Weight 124.9 kg Body Mass Index 41.5 - Constitutional Present: agitated - Routine HEENT Exam Head: Present: normocephalic, atraumatic Eye: Present: EOMI, PERRL - Routine Respiratory Exam Present: CTA bilaterally - Routine Cardiovascular Exam Present: RRR, S1, S2 - Routine Abdominal Exam Present: soft, non distended, non tender - Routine Extremities Exam Absent: cyanosis, clubbing - Routine Neurological Exam Present: alert - Routine Psychiatric Exam Absent: good insight, good judgment Results - Labs CBC & Chem 7: 06/05/17 06:22 06/05/17 06:22 Microbiology Results: Microbiology 05/25/17 15:49 Midline Blood Culture - Final No Growth After 5 Days 05/25/17 15:43 Port/Picc Blood Culture - Final No Growth After 5 Days 05/20/17 04:36 Midline Blood Culture - Final No Growth After 5 Days 05/20/17 04:36 Midline Blood Culture - Final No Growth After 5 Days 05/21/17 13:45 Sputum, Expectorated Gram Stain - Final 05/21/17 13:45 Sputum, Expectorated Sputum Culture - Final Yeast, not C. albicans Normal Respiratory Charly Assessment and Plan (1) Acute exacerbation of chronic obstructive airways disease Current visit: Yes Status: Acute (2) Acute and chronic respiratory failure with hypercapnia Current visit: Yes Status: Acute (3) NSTEMI (non-ST elevated myocardial infarction) Current visit: Yes Status: Acute Assessment and Plan: Assessment Acute on chronic respiratory failure with hypercapnia and hypoxia - baseline home oxygen at 5L; intubated 05/21-extubated on 05/27, now on Bipap/NC Leukocytosis-trending down NSTEMI-peak troponin 3.09, diffuse T changes, s/p heart cath with 2 stents 05/28 COPD exacerbation Transaminitis Influenza A Hyperglycemia Alerted Mental Status Thrombocytopenia Constipation suspect orthostatic hypotension Resolved Bilateral lower lobe pneumonia Bacteremia Fever Hypokalemia Wide complex tachycardia s/p cardioversion Dehydration Chronic Medical: Cardiomyopathy-EF 30% by echo 05/21/17 Pulmonary nodule - Irregular 2.2cm left lower lobe pulmonary nodule Anemia, unspecified, stable Coronary Artery Disease Hypertension Sleep Apnea Diabetes Mellitus Type 2 - A1c on 04/17/17 was 6.4% GERD Osteoarthritis Peripheral neuropathy Fibromyalgia Depression Tobacco dependency Peripheral vascular disease Morbid obesity - BMI >40 Plan Extubated 05/27, continue Bipap/NC-5 L as per pulm. IV steroids converted to prednisone 06/02-dosed decreased by pulmonary. Tamiflu for influenza A-initiated 05/29; course completed. Soft diet with ground meats with regular liquids per speech therapy. Insulin doses decreased significantly given discontinuation of tube feedings. Blood sugars down. Now eating more. Monitor. Continue corrective scale. Continue ASA and Bivalirudin per cardiology; also on beta jesenia and atorvastatin. Continue to work with PT/OT/Speech On usual doses of Wellbutrin and citalopram. Has Ativan and haloperidol available if needed for anxiety or delirium. Had bladder training. [facility] dismissed when patient intended to leave AMA. Decreased lisinopril. Clonidine and amlodipine DC'd Ready for dismissal but has refused placement and home would not be safe. - Physician Narrative Narrative: Date: 06/06/17 Time: 1822 Hospital Course Summary Disclaimer: The visit summary below is not to be considered part of the above Progress Note. Hospital Course: 05/17/17 Admission Admit to observation status under the care of Dr. Lopez. Sepsis work up initiated in ED. Patient meeting SIRS criteria based on tachycardia, tachypnea and reported fevers at home without obvious source. Initial lactate was 1.4 with repeat lactate decreased to 0.9. Blood cultures pending. WBC stable at 5.0. CXR revealed left basilar scarring without focal pneumonia. Respiratory panel was negative. Patient was given DuoNeb treatments and Solu-Medrol 125mg IV in ED. Will continue respiratory care with DuoNeb treatments QID and Q6H PRN as well as Solu -Medrol 125mg IV Q6H. History of diabetes with A1c on 04/17/17 at 6.4%. Continue home medications and monitor blood sugars closely given treatment with steroids. Sliding scale insulin as indicated for hyperglycemia. Patient was placed on BiPAP in ED with improvement. Continue BiPAP as indicated. Ativan as needed for anxiety and agitation while on BiPAP. Will monitor closely on telemetry with continuous pulse oximetry. Oxygen as needed to maintain SAO2 between 90-95%, weaning as able to baseline of 5L. SCDs for DVT prophylaxis. Given sudden onset of dyspnea, will obtain CT angio chest for further evaluation of PE - results pending. NS at 100cc/hr for hydration given decreased oral intake as on BiPAP. Monitor daily weight closely for signs of fluid overload. Recheck labs in AM to monitor blood counts, electrolytes and renal function. Patient wishes to maintain FULL CODE status. Upon discharge, patient's care will be returned to his PCP, Dr. Odom. 05/18/17 Don reports that his breathing is a little better today and is he is more alert. New cough with sputum production. 1 of the 2 blood cultures obtained on admission is POSITIVE for Streptococcus. Night telehospitalist was notified and Rocephin 2g IV Q24 hours was initiated for antimicrobial coverage. Given new cough, will try and obtain a sputum culture. Mucinex for mucolytic effect. Ricola for cough. Continue respiratory care including nebulized treatments. Continue to encourage BiPAP as indicated and supplemental oxygen to maintain SAO2 between 90 -95%. Wean oxygen to baseline of 5L as able. Given sudden onset of dyspnea, CT angio chest was obtained and revealed no PE but did note 2.2cm left lower lobe pulmonary nodule raising concern for primary lung malignancy and recommended further evaluation. Will discuss consideration of pulmonary consult for further evaluation. Continue Solu-Medrol 125mg IV Q6 hours. Anticipate initiation of tapering in near future. Blood sugars remain elevated, most likely steroid effect, ranging from 160's-> 200. Continue sliding scale insulin. Given recent CT with contrast, will hold metformin and restart 05/19/17. Continue NS at 75cc/hr for hydration. Monitor urinary output and daily weight closely for signs of fluid over load. Oral intake is good. Consider discontinuation of fluids this afternoon. Ativan as needed for anxiety and agitation while on BiPAP. Troponins continue to trend up slowing - 0.015, 0.017, 0.029, 0.045 and 0.048 this morning. Will recheck troponin at 1030 and continue to monitor closely on telemetry. Patient denies chest pain. SCDs for DVT prophylaxis. Recheck labs in AM to monitor blood counts, electrolytes and renal function. Discussed at length with patient and family the importance of smoking cessation. He admits to wanting to stop smoking and inquired about initiation of Chantix. Continue Wellbutrin for smoking cessation. With BC positive and starting IV antibiotics, will change admission status to inpatient. Anticipate greater than 2 midnights of care needed. 05/19/17 Continue with Rocephin for antimicrobial coverage. With lungs still very tight and congested, will continue with Solu-Medrol 125mg IV q 6 hours. Continue Neb treatments and acapella. Encourage use of BiPAP as much as able to help his chronic hypercapnea. Stressed with about the importance of him not smoking. She understand. Will consult with Dr Ashby for pulm evaluation. Will discontinue IVF. May restart metformin this evening. Sugars with elevation secondary to steroids. Did give Diamox 500mg x1 this am for fluid motivation and to help minimize contraction alkalosis. PT/OT to evaluate and initiate treatment tomorrow for his significant pulmonary debility. 05/20 Continue with Rocephin for antimicrobial coverage. One blood culture was positive with streptococcus Viridans, Repeat BC were drawn this morning. Scheduled breathing tx, IV solu-medrol, as well as oxygen and Bipap Appreciate Dr Ashby consultation. Likely require bronchoscopy for biopsy of lung mass. Continue to monitor BGM remain elevated. Metformin was resumed as well as sliding scale insulin. Encourage PT/OT for strengthening 05/21 Resp failure --> ABG shows resp acidosis and he was placed on BiPAP with improvement in color. Repeat ABG shows pH 7.12, pCO2 106, pO2 185. CXR ordered. BG 230. Chest pain --> EKG shows ST changes and widened QRS, poss a-flutter; troponin pending. Dr. Govea consulted. He's had 2 NTG but remains very hypertensive with SBP 220s. Pt failed to respond to adenosine, and subseqently was cardioverted with conversion to sinus tach. Rapid response activated and Dr. Ramírez was at bedside x20 min. Transferred to CCU, where pt was met by Dr. Govea for evaluation. Continue treatment for resp status including steroids and Rocephin. 05/22 Patient remains on a ventilator requiring continuous sedation. Oxygenation borderline on 40% FiO2-oxygen flow increased to 60% by pulmonary earlier today. Continue triple antibiotics (cefepime, Levaquin, vancomycin) pending sputum culture due to extensive pneumonia on CT/chest x-ray yesterday-not present on initial films. Peak troponin 3.09 with diffuse T-wave changes; discussed with Dr. Govea and will require cardiac catheterization in the future. Continue heparin drip. Blood pressure is uncontrolled-clonidine patch initiated earlier, IV hydralazine added as needed for systolic pressures above 180. OG placed-resume statin, SSRI, atenolol, and aspirin. Assess gastric residuals today-anticipate beginning tube feedings tomorrow. Adequate urine output, continue to monitor. Blood sugars remain elevated, off metformin at present. Increase basal insulin. 05/23 Patient remains on a ventilator requiring continuous sedation. Continue triple antibiotics (cefepime, Levaquin, vancomycin); suspect aspiration pneumonia-sputum culture normal charly. Extensive infiltrates on CT chest. Repeat chest x-ray in a.m. Fluid balance positive-roughly 5 L over several days, weight up-diuresis today. Potassium supplemented IV earlier today. Peak troponin 3.09 with diffuse T-wave changes; discussed with Dr. Govea and will require cardiac catheterization in the future. Continue heparin drip. Blood pressure remains elevated but improved from yesterday with addition of clonidine patch and resumption of atenolol per OG. IV hydralazine available as needed for systolic pressures above 180. OG placed 05/22-low volume gastric output overnight and tolerating medications per OG. Will initiate tube feedings with low glycemic formula at 20 mL per hour overnight. Nutrition consult. Blood sugars remain elevated, off metformin at present and on steroids. Increase basal insulin to 40 units anticipating further increase in blood sugar with initiation of tube feedings. 05/24 Remains ventilator dependent. Steroids decreased. Vancomycin discontinued, continue Levaquin and cefepime for probable aspiration pneumonia and Streptococcus viridans positive blood culture. Continue diuresis, blood pressures elevated-atenolol increased and lisinopril initiated to improve control. Tolerating tube feedings at low-volume, converted pulmonary formula with goal of 80 mL per hour. Platelet count dropping, heparin discontinued and bivalirudin initiated. 05/25 Tolerating spontaneous breathing trial, steroids decreased. Continues to require continuous sedation. Lisinopril increased to 20 mg to improve blood pressure control. Platelet count down to 100K; HIT Ab pending. Fevers overnight without evidence source, leukocytosis/left shift resolved improved. Lines to be cultured. 05/26 FiO2 titrated to 40%; diuresing well-continue same. Spontaneous breathing trial planned for the morning with possible extubation at that time. Cardiac status stable, no further tachyarrhythmias. Trend to improved blood pressures. Cardiac catheterization planned in the future. Remains on bivalirudin. Platelet count 86K today, HIT Ab pending. Tube feedings at goal, blood sugars significantly elevated-NovoLog scheduled every 6 hours and when necessary. Chest x-ray improved, remains on Levaquin and cefepime for probable aspiration pneumonia. Blood cultures drawn yesterday negative thus far. 05/27 Extubated this afternoon, OG discontinued in conjunction with extubation. CPAP initiated for respiratory support. Speech therapy, PT, OT consultations tomorrow. Anticipate significant reduction in fluid volume off sedating medications and tube feedings--> Lasix dose decreased to twice daily administration. Platelet count stabilizing, HIT Ab negative. Intermittent fever, remains on antibiotics for possible aspiration pneumonia. Repeat blood cultures negative. 05/29 Extubated 05/27 Placed on CPAP with home equipment. Baseline 5L Currently tolerating NC, oxygen support as needed to maintain sats and mentation , pulm consulted and following CXR-stable Leukocytosis-likely 2/2 steroid effect, PCT negative, no fever x48 hours Cefepime and Levaquin currently. Vanc discontinued 05/24. Likely d/c abx today. Will consult ID for abx recs Failed speech therapy Continue tube feeds and meds via [facility] Monitor fluid status-hold evening dose of lasix Peak troponin 3.09 on 05/21/17 with diffuse T-wave changes; heart cath 05/28-now on ASA and Bivalirudin Monitor platelet count-currently WNL Monitor BP, adjust medications as needed Monitor glucose and continue insulin as ordered Discussed with nursing staff, and infectious disease 05/30 Extubated 05/27, continue Bipap/NC as per pulm Weaning steroids CXR-improving Leukocytosis Cefepime, Levaquin, Vanc discontinued Continue Tamiflu Failed speech therapy, continue to re-eval Continue tube feeds and meds via [facility], feeds at 40ml/hr, goal of 80ml/hr Discontinue lasix, give 1L NS and re-eval fluid status Continue ASA and Bivalirudin per cardiology 05/31 Failed speech therapy, continue to re-eval Tube feedings and medications per [facility], goal 80 mL per hour tube feeding. Adjust insulin for hyperglycemia. 06/01 describes increased confusion/irritability-haloperidol initiated as needed. Converting to prednisone per [facility] in a.m.; blood gas with mild hypoxia-FiO2 increased. Continue nutritional support per [facility]; insulins again adjusted for persistent hyperglycemia. Chest pain described overnight, EKG unchanged. 06/02 Complaints of chest pain/dyspnea again this morning-resolved with position change. Intermittent confusion, haloperidol given twice overnight. Persistent hyperglycemia, scheduled short acting insulin adjusted further. Solu-Medrol discontinued, prednisone initiated per [facility] this morning. Lactulose administered per [facility] for ongoing constipation; MiraLAX added with recommendation the patient take it orally. Patient and family advised he will require rehabilitation before discharge home can be entertained. 06/06 Patient has [place] [facility]. He was insisting on going home despite therapy, CM and others explaining that it was unsafe to do so. He had 2 sons come to take him home. He wanted his [facility] out. His PICC was removed after AMA paperwork was signed. He then fell to the floor in the room when he tried to leave while family watched. Patient remained on the floor for a time because he refused to get lifted to the bed. Ultimately patient decided to stay.
[2017-06-06] MEDS: INSULIN GLARGINE 100unit/ml INJECTION SQ SCH (20:10)
[2017-06-06] MEDS: ATORVASTATIN 40 MG TABLET PO SCH (20:10)
[2017-06-07] MEDS: BUDESONIDE INH.SOLN 0.5mg/2ml NEB AEROSOL SCH ×3 (01:36→19:11)
[2017-06-07] MEDS: ALBUTEROL/IPRATROPIUM 2.5mg-0.5mg/3ml NEB AEROSOL SCH ×7 (01:36→22:46)
[2017-06-07] MEDS: GUAIFENESIN 200mg/10ml ORAL LIQUID PO SCH ×6 (03:03→22:59)
[2017-06-07] MEDS: OMEPRAZOLE 20 MG CAPSULE PO SCH (06:12)
[2017-06-07] MEDS: NYSTATIN 500,000 units/5 ml ORAL LIQUID PO SCH ×4 (09:20→21:21)
[2017-06-07] MEDS: GABAPENTIN 300 MG CAPSULE PO SCH ×3 (09:21→21:21)
[2017-06-07] MEDS: PredniSONE 20 MG TABLET PO SCH (09:21)
[2017-06-07] MEDS: ASPIRIN *EC* 81 MG TABLET PO SCH (09:21)
[2017-06-07] MEDS: BuPROPion SR 150mg (12HR) TABLET PO SCH ×2 (09:21→21:21)
[2017-06-07] MEDS: CITALOPRAM 40 MG TABLET PO SCH (09:21)
[2017-06-07] MEDS: TICAGRELOR 90 MG TABLET PO SCH ×2 (09:25→21:21)
[2017-06-07] MEDS: POLYETHYL GLYCOL 3350 17gm PACKET PO SCH (09:26)
--- NOTE | 2017-06-07 11:04 | Pulmonology Progress Note ---
Subjective Principal diagnosis: SOB, respiratory failure Interval history: Pt states he is doing good. No SOB, slight cough but no sputum. Wanting to go to rehab now. Exam Vital signs: Temperature 96.1 F L 06/07/17 08:57 Pulse Rate 74 06/07/17 08:57 Respiratory Rate 22 06/07/17 09:00 Blood Pressure 86/49 06/07/17 08:57 Pulse Oximetry 100 06/07/17 09:00 Inpatient Medications: Generic Name Dose Route Start Last Admin Trade Name Freq PRN Reason Stop Dose Admin Acetaminophen 325 - 650 mg 05/17/17 10:08 06/01/17 21:51 Tylenol PO 650 mg Q5H PRN Administration Discomfort Hydrocodone Bitart/Acetaminophen 1 tab 05/17/17 10:14 06/06/17 05:37 [place] 7.5/325 PO 1 tab Q6H PRN Administration Pain Al Hydroxide/Mg Hydroxide 30 ml 05/28/17 09:24 Maalox Plus PO Q3H PRN Indigestion Albuterol/Ipratropium 3 ml 05/17/17 10:11 Duoneb AEROSOL RTQID PRN Albuterol/Ipratropium 3 ml 05/21/17 15:15 06/07/17 09:00 Duoneb AEROSOL 3 ml Q4H KSENIA Administration Aspirin 81 mg 05/28/17 09:24 06/07/17 09:21 Ecotrin PO 81 mg DAILY KSENIA Administration Atenolol 25 mg 05/29/17 09:00 06/06/17 20:11 Tenormin PO 25 mg BID KSENIA Administration Atorvastatin Calcium 80 mg 05/28/17 21:00 06/06/17 20:10 Lipitor PO 80 mg HS KSENIA Administration Bisacodyl 10 mg 05/27/17 15:11 Dulcolax RECTALLY DAILY PRN Constipation Bisacodyl 5 - 10 mg 05/28/17 09:24 Dulcolax PO DAILY PRN Constipation Budesonide 0.5 mg 05/17/17 19:00 06/07/17 09:00 Pulmicort Inhalation AEROSOL 0.5 mg RTBID KSENIA Administration Bupropion HCl 150 mg 05/17/17 21:00 06/07/17 09:21 Wellbutrin Sr PO 150 mg BID KSENIA Administration Citalopram Hydrobromide 40 mg 05/18/17 09:00 06/07/17 09:21 Celexa PO 40 mg DAILY KSENIA Administration Gabapentin 300 mg 05/17/17 15:00 06/07/17 09:21 Neurontin PO 300 mg TID KSENIA Administration Glucose 37.5 gm 05/17/17 10:12 Glutose 15 PO PRN PRN Hypoglycemia Guaifenesin 400 mg 05/29/17 12:00 06/07/17 06:11 Robitussin Liq PO Not Given Q6H KSENIA Haloperidol 1 mg 06/03/17 20:30 Haldol PO Q4H PRN Insulin Aspart 2 - 14 unit 05/21/17 11:43 06/06/17 20:09 Novolog SQ 4 unit SS PRN Administration Hyperglycemia Protocol Insulin Glargine 30 unit 06/03/17 21:00 06/06/17 20:10 Lantus SQ 30 unit HS KSENIA Administration Lisinopril 10 mg 06/05/17 09:00 06/06/17 10:38 Prinivil PO 10 mg DAILY KSENIA Administration Lorazepam 0.5 - 1 mg 05/28/17 09:24 06/02/17 13:52 Ativan PO 0.5 mg Q4H PRN Administration Anxiety Magnesium Hydroxide 30 ml 05/28/17 09:24 Mom PO DAILY PRN Constipation Nitroglycerin 0.4 mg 05/31/17 23:49 06/02/17 08:11 Nitrostat SL 0.4 mg Q5M PRN Administration Chest pain Nystatin 5 ml 06/03/17 21:00 06/07/17 09:20 Mycostatin PO 06/13/17 20:59 5 ml QID KSENIA Administration Omeprazole 40 mg 05/18/17 06:30 06/07/17 06:12 Prilosec PO 40 mg ACB KSENIA Administration Ondansetron HCl 4 mg 05/28/17 09:24 Zofran IVP Q6H PRN Nausea &/or vomiting Polyethylene Glycol 17 gm 06/03/17 09:00 06/07/17 09:26 Miralax PO Not Given DAILY [facility] Prednisone 40 mg 06/06/17 08:00 06/07/17 09:21 Deltasone 20 Mg PO 40 mg WB KSENIA Administration Sodium Chloride 10 - 80 ml 05/17/17 05:20 06/05/17 11:42 Iv Flush IVF 20 ml PRN PRN Administration Flushing Sodium Chloride 1 spray 05/19/17 11:42 05/19/17 16:37 [place] Nasal Moisturizing [place] EA NOSTRIL 1 spray PRN PRN Administration Congestion Sodium Chloride 500 ml 05/25/17 21:40 05/25/17 21:52 Normal Saline IV 500 ml PRN PRN Administration Ticagrelor 90 mg 05/28/17 21:01 06/07/17 09:25 Brilinta PO 90 mg Q12H KSENIA Administration Discontinued Medications Generic Name Dose Route Start Last Admin Trade Name Freq PRN Reason Stop Dose Admin Acetaminophen 650 mg 05/21/17 15:10 Tylenol Supp SC Q5H PRN Pain Acetaminophen 325 - 650 mg 05/28/17 09:24 Tylenol PO Q5H PRN Pain Hydrocodone Bitart/Acetaminophen 1 tab 05/17/17 21:00 05/31/17 08:42 [place] 7.5/325 PO 1 tab BID KSENIA Administration Hydrocodone Bitart/Acetaminophen 1 - 2 tab 05/28/17 09:24 [place] 5/325 PO Q5H PRN Pain Acetazolamide 500 mg 05/19/17 10:51 05/19/17 11:25 Diamox PO 05/19/17 10:52 500 mg O ONE Administration Adenosine 12 mg 05/21/17 09:17 05/21/17 08:50 Adenocard IVP 05/21/17 09:18 12 mg O ONE Administration Adenosine 6 mg 05/21/17 09:18 05/21/17 09:23 Adenocard IVP 05/21/17 09:19 6 mg O ONE Administration Albuterol/Ipratropium 6 ml 05/17/17 05:19 05/17/17 05:33 Duoneb AEROSOL 05/17/17 05:20 6 ml O ONE Administration Albuterol/Ipratropium 3 ml 05/17/17 11:00 05/21/17 18:22 Duoneb AEROSOL Not Given RTQID KSENIA Amlodipine Besylate 10 mg 05/24/17 13:46 06/04/17 09:44 Norvasc PO 10 mg DAILY KSENIA Administration Amlodipine Besylate 5 mg 06/04/17 11:41 06/06/17 10:38 Norvasc PO 5 mg DAILY KSENIA Administration Aspirin 81 mg 05/18/17 09:00 05/23/17 08:26 Asa PO Not Given DAILY [facility] Aspirin 81 mg 05/22/17 16:00 05/31/17 08:42 Asa GT 81 mg DAILY [facility] Administration Atenolol 25 mg 05/18/17 09:00 05/24/17 08:58 Tenormin PO 25 mg DAILY KSENIA Administration Atenolol 50 mg 05/25/17 09:00 05/28/17 12:30 Tenormin PO Not Given DAILY [facility] Atenolol 25 mg 05/24/17 09:40 05/24/17 11:09 Tenormin PO 05/24/17 09:41 25 mg O ONE Administration Atropine Sulfate 0.5 mg 05/28/17 09:24 Atropine IVP Q5M PRN Bradycardia Benzocaine 1 lozenge 05/20/17 18:54 Cepacol Sore Throat Lozenge MM Q2HR PRN Sore throat Bisacodyl 10 mg 05/28/17 09:24 Dulcolax RECTALLY DAILY PRN Constipation Bivalirudin 250 mg 05/24/17 14:15 Angiomax IV NOW [facility] Clonidine HCl 0.1 mg 05/22/17 09:00 06/05/17 09:05 Catapres-Tts 1 TD Not Given Q7D@0900 [facility] Clonidine HCl 1 removal 05/29/17 08:59 06/05/17 09:05 Catapres Patch Removal TD 1 removal Q7D KSENIA Administration Enoxaparin Sodium 1 each 05/18/17 10:47 05/18/17 12:54 Pharmacy Consult - Lovenox MC 05/18/17 10:48 1 each O ONE Administration Enoxaparin Sodium 50 mg 05/18/17 11:45 05/20/17 08:37 Lovenox SQ 50 mg DAILY [facility] Administration Enoxaparin Sodium 142 mg 05/27/17 17:00 05/28/17 09:34 Lovenox SQ 142 mg DAILY [facility] Administration Furosemide 20 mg 05/18/17 09:00 05/20/17 08:37 Lasix PO 20 mg DAILY KSENIA Administration Furosemide 40 mg 05/21/17 09:37 05/21/17 09:45 Lasix IVP 05/21/17 09:38 40 mg ONCE ONE Administration Furosemide 20 mg 05/23/17 21:00 05/24/17 08:59 Lasix IVP 20 mg Q12HR KSENIA Administration Furosemide 20 mg 05/24/17 17:00 05/27/17 09:31 Lasix IVP 20 mg Q8HR KSENIA Administration Furosemide 20 mg 05/27/17 21:00 05/29/17 08:09 Lasix IVP 20 mg Q12H KSENIA Administration Furosemide 20 mg 05/29/17 09:00 Lasix IVP DAILY KSENIA Guaifenesin 1,200 mg 05/18/17 09:00 05/29/17 08:14 Mucinex La PO Not Given BID KSENIA Haloperidol Decanoate 1 mg 06/01/17 17:43 06/02/17 17:00 Haldol Liquid GT 1 mg Q4H PRN Administration Heparin Sodium (Beef Lung) 5,000 unit 05/21/17 09:23 05/21/17 10:07 Heparin Bolus IVP 05/21/17 09:24 5,000 unit O ONE Administration Heparin Sodium (Beef Lung) 3,000 unit 05/21/17 17:45 05/21/17 17:53 Heparin Bolus IVP 05/21/17 17:46 3,000 unit O ONE Administration Heparin Sodium (Beef Lung) 3,000 unit 05/22/17 03:37 05/22/17 03:46 Heparin Bolus IVP 05/22/17 03:38 3,000 unit O ONE Administration Heparin Sodium (Porcine) 1 each 05/21/17 09:08 Pharmacy Consult - Heparin 05/21/17 09:09 ONE TIME ONE Hydralazine HCl 5 mg 05/22/17 08:47 05/22/17 10:09 Apresoline IVP 5 mg Q6H PRN Administration Hypertension Hydralazine HCl 10 mg 05/22/17 15:01 05/28/17 06:06 Apresoline IVP 10 mg Q4H PRN Administration Hypertension Sodium Chloride 1,000 mls @ 999.9 mls/hr 05/17/17 05:44 05/17/17 11:20 Normal Saline IV 05/17/17 06:43 Infused .Q1H ONE Infusion Sodium Chloride 1,000 mls @ 75 mls/hr 05/17/17 10:08 05/19/17 11:19 Normal Saline IV Infused .[id number] KSENIA Infusion Ceftriaxone Sodium 2 gm/ 100 mls @ 200 mls/hr 05/18/17 01:15 02/10/18 01:50 Sodium Chloride IV Infused Q24H KSENIA Infusion Ceftriaxone Sodium 2 gm/ 50 mls @ 100 mls/hr 05/18/17 21:00 05/20/17 21:55 Sodium Chloride IV Infused Q24H KSENIA Infusion Heparin Sodium (Porcine) 20,000 unit in 500 mls @ 44 mls/hr 05/21/17 09:30 13:17 Heparin Drip IV Infused .[id number] KSENIA Titration Protocol Dexmedetomidine HCl 200 mcg/ 52 mls @ 6.87 mls/hr 05/21/17 09:52 05/21/17 20: 00 Sodium Chloride IV 05/21/17 20:29 0 mcg/kg/hr .Q7H35M PRN 0 mls/hr Protocol Titration 0.2 MCG/KG/HR Propofol 1,000 mg in 100 mls @ 3.969 mls/hr 05/21/17 10:39 05/21/17 14:28 Diprivan IV 0 mcg/kg/min .Q24H PRN 0 mls/hr Protocol Infusion 5 MCG/KG/MIN Fentanyl 1,000 mcg/ Sodium 100 mls @ 0 mls/hr 05/21/17 13:02 05/27/17 14:45 Chloride IV Infused .Q0M PRN Titration Protocol Per Protocol Sodium Chloride 250 mls @ 999.9 mls/hr 05/21/17 13:15 05/21/17 14:28 Normal Saline IV 05/21/17 13:29 Infused .Q15M KSENIA Infusion Cefepime HCl 1 gm/ Sodium 50 mls @ 100 mls/hr 05/21/17 15:30 05/29/17 10:46 Chloride IV Infused Q6H KS[facility]IA Infusion Levofloxacin/Dextrose 750 mg in 150 mls @ 100 mls/hr 05/21/17 16:00 05/28/17 17:15 Levaquin Premix IV Infused Q24H KSENIA Infusion Vancomycin HCl 1,500 mg/ 500 mls @ 250 mls/hr 05/21/17 18:00 05/24/17 12:15 Sodium Chloride IV Infused Q8H KSENIA Infusion Dexmedetomidine HCl 1,000 mcg/ 260 mls @ 6.87 mls/hr 05/21/17 20:30 05/27/17 14:45 Sodium Chloride IV 05/27/17 14:45 Infused .Q24H PRN Titration Protocol 0.2 MCG/KG/HR Potassium Chloride 10 meq in 100 mls @ 100 mls/hr 05/23/17 09:45 05/23/17 17: 34 Potassium Chloride Premix IV 05/23/17 13:44 Infused Q1H KSENIA Infusion Heparin Sodium (Porcine) 20,000 unit in 500 mls @ 45 mls/hr 05/23/17 16:00 06:16 Heparin Drip IV Not Given .Q11H7M KSENIA Protocol Potassium Chloride 10 meq in 100 mls @ 100 mls/hr 05/24/17 09:45 05/24/17 15: 56 Potassium Chloride Premix IV 05/24/17 13:44 Not Given Q1H KSENIA Potassium Chloride 10 meq/ 105 mls @ 105 mls/hr 05/24/17 11:45 05/24/17 17:00 Sodium Chloride IV 05/24/17 15:44 Infused Q1H KSENIA Infusion Bivalirudin 250 mg/ Sodium 500 mls @ 43.2 mls/hr 05/24/17 15:15 05/27/17 17: 34 Chloride IV Not Given .[id number] KSENIA Sodium Chloride 1,000 mls @ 75 mls/hr 05/28/17 07:45 05/28/17 14:00 Normal Saline IV Infused .[id number] KSENIA Infusion Sodium Chloride 1,000 mls @ 500 mls/hr 05/30/17 10:14 05/30/17 10:41 Normal Saline IV 05/30/17 12:13 500 mls/hr .Q2H ONE Administration Sodium Chloride 1,000 mls @ 60 mls/hr 05/30/17 17:00 05/31/17 06:00 Normal Saline IV 05/31/17 09:39 60 mls/hr .[id number] KSENIA Infusion Insulin Aspart 1 - 5 unit 05/17/17 10:12 05/18/17 06:06 Novolog SQ 2 unit SS PRN Administration Hyperglycemia Protocol Insulin Aspart 2 - 8 unit 05/18/17 08:22 05/21/17 07:30 Novolog SQ 3 unit SS PRN Administration Hyperglycemia Protocol Insulin Aspart 15 unit 05/20/17 10:32 05/20/17 10:36 Novolog SQ 05/20/17 10:33 15 unit ONE TIME ONE Administration Insulin Aspart 10 unit 05/26/17 12:00 05/26/17 13:54 Novolog SQ Not Given Q6H KSENIA Insulin Aspart 10 unit 05/26/17 15:00 05/27/17 21:06 Novolog SQ Not Given 0300,0900,1500,2100 [facility] Insulin Aspart 10 unit 05/28/17 15:00 Novolog SQ Q6HR KSENIA Insulin Aspart 10 unit 05/28/17 18:00 05/31/17 06:11 Novolog SQ 10 unit Q6H KSENIA Administration Insulin Aspart 12 unit 05/31/17 08:41 06/03/17 19:14 Novolog SQ Not Given Q6H KSENIA Insulin Aspart 15 unit 06/01/17 15:00 06/02/17 10:37 Novolog SQ Not Given Q6H [facility] Insulin Aspart 18 unit 06/02/17 09:58 06/03/17 17:37 Novolog SQ 18 unit Q6H KSENIA Administration Insulin Glargine 10 unit 05/21/17 21:00 05/21/17 20:14 Lantus SQ 10 unit HS [facility] Administration Insulin Glargine 20 unit 05/22/17 21:00 05/22/17 20:14 Lantus SQ 20 unit HS [facility] Administration Insulin Glargine 40 unit 05/23/17 21:00 05/30/17 21:34 Lantus SQ 40 unit HS [facility] Administration Insulin Glargine 50 unit 05/31/17 08:41 05/31/17 21:06 Lantus SQ 50 unit HS [facility] Administration Insulin Glargine 60 unit 06/01/17 21:00 06/02/17 20:23 Lantus SQ 60 unit HS [facility] Administration Labetalol HCl 10 mg 05/21/17 20:40 05/22/17 06:05 Trandate IVP 10 mg Q4H PRN Administration INCREASED blood pressure Lactulose 20 gm 06/02/17 10:00 06/02/17 11:09 Lactulose PO 06/02/17 10:01 20 gm O ONE Administration Lisinopril 10 mg 05/24/17 16:15 05/31/17 08:42 Prinivil PO 10 mg DAILY KSENIA Administration Lisinopril 10 mg 05/31/17 15:18 05/31/17 15:43 Prinivil PO 05/31/17 15:19 10 mg O ONE Administration Lisinopril 20 mg 06/01/17 09:00 06/04/17 09:45 Prinivil PO 20 mg DAILY KSENIA Administration Lorazepam 1 mg 05/17/17 06:16 05/17/17 06:56 Ativan PO 05/17/17 06:17 1 mg O ONE Administration Lorazepam 0.5 mg 05/17/17 10:13 05/24/17 15:55 Ativan Inj IVP 0.5 mg Q6H PRN Administration Lorazepam 1 mg 05/24/17 19:46 05/31/17 01:43 Ativan Inj IVP 1 mg Q2H PRN Administration Agitation/Air hunger/Pain Lorazepam 0.5 - 1 mg 05/28/17 09:24 Ativan Inj IVP Q4H PRN Anxiety Magnesium Hydroxide 30 ml 05/26/17 12:41 05/26/17 13:53 Mom GT 05/26/17 12:42 30 ml O ONE Administration Menthol 1 lozenge 05/18/17 08:19 Ricola Sf MM PRN PRN Cough Metformin HCl 500 mg 05/17/17 17:30 05/18/17 10:00 Glucophage PO Not Given BIDWM KSENIA Metformin HCl 500 mg 05/19/17 09:00 05/21/17 10:52 Glucophage PO Not Given BIDWM KSENIA Methylprednisolone Sodium Succinate 125 mg 05/17/17 06:26 05/17/17 06:53 Solu-Medrol IM 05/17/17 06:27 125 mg O ONE Administration Methylprednisolone Sodium Succinate 125 mg 05/17/17 15:00 05/20/17 08:37 Solu-Medrol IVP 125 mg Q6HR KSENIA Administration Methylprednisolone Sodium Succinate 80 mg 05/20/17 15:00 05/24/17 08:57 Solu-Medrol IVP 80 mg Q6HR KSENIA Administration Methylprednisolone Sodium Succinate 80 mg 05/24/17 17:00 05/26/17 08:23 Solu-Medrol IVP 80 mg Q8HR KS[facility]IA Administration Methylprednisolone Sodium Succinate 80 mg 05/26/17 21:00 05/29/17 08:15 Solu-Medrol IVP 80 mg Q12HR KSENIA Administration Methylprednisolone Sodium Succinate 60 mg 05/29/17 21:00 06/01/17 21:57 Solu-Medrol IVP 06/02/17 04:00 60 mg Q12HR KSENIA Administration Metoclopramide HCl 5 mg 05/23/17 17:30 05/30/17 10:42 Reglan GT 5 mg Q6H KSENIA Administration Metoclopramide HCl 5 - 10 mg 05/28/17 09:24 Reglan IVP Q6H PRN Nausea &/or vomiting Metoclopramide HCl 5 mg 05/30/17 14:00 06/03/17 23:15 Reglan GT Not Given Q6H KSENIA Metoprolol Tartrate 15 mg 05/21/17 09:18 05/21/17 09:05 Lopressor IVP 05/21/17 09:19 15 mg ONCE ONE Administration Metoprolol Tartrate 5 mg 05/28/17 10:01 05/28/17 10:00 Lopressor IVP 05/28/17 10:02 5 mg ONCE ONE Administration Morphine Sulfate 1 - 2 mg 05/17/17 10:08 05/24/17 17:56 Morphine Sulfate Inj IVP 2 mg Q2H PRN Administration Pain Morphine Sulfate 2 - 4 mg 05/28/17 09:24 05/28/17 10:17 Morphine Sulfate Inj IVP 05/29/17 09:23 4 mg Q2H PRN Administration Pain Morphine Sulfate 2 - 4 mg 05/28/17 09:24 06/02/17 08:19 Morphine Sulfate Inj IVP 2 mg Q5M PRN Administration Angina Neomycin/Polymyxin/Bacitracin 1 applic 06/06/17 13:00 06/06/17 13:10 Neosporin TP 06/06/17 13:01 1 applic O ONE Administration Nitroglycerin 0.4 mg 05/17/17 10:14 05/21/17 08:35 Nitrostat SL 0.4 mg Q5MIN3 PRN Administration CP Nitroglycerin 0.4 mg 05/28/17 09:24 Nitrostat SL Q5M PRN Angina --Pom--(Itraconazole 200 mg 05/17/17 21:00 05/29/17 09:39 [Itraconazole] 200 PO Not Given Mg) BID KSENIA Ondansetron HCl 4 mg 05/17/17 10:08 05/19/17 02:45 Zofran IVP 4 mg Q6H PRN Administration Nausea &/or vomiting Oseltamivir Phosphate 75 mg 05/29/17 21:00 06/03/17 09:27 Tamiflu 06/03/17 09:01 75 mg BID KSENIA Administration Pantoprazole Sodium 40 mg 05/22/17 09:00 05/31/17 08:44 Protonix Iv IVP 40 mg DAILY KSENIA Administration Pharmacy Consult 1 each 05/17/17 10:32 Pharmacy Consult - Fall Risk XX 05/17/17 10:33 ONE TIME ONE Pharmacy Consult 1 each 05/27/17 10:17 Pharmacy Consult - Fall Risk XX 05/27/17 10:18 ONE TIME ONE Pharmacy Consult 1 each 06/05/17 10:03 Pharmacy Consult - Fall Risk XX 06/05/17 10:04 ONE TIME ONE Potassium Chloride 40 meq 05/24/17 18:10 05/26/17 06:13 Kcl Oral Liq 20 Meq/15 Ml PO Not Given BIDWM KSENIA Potassium Chloride 40 meq 05/25/17 13:00 05/26/17 08:22 Kcl Oral Liq 20 Meq/15 Ml PO 40 meq QID KSENIA Administration Potassium Chloride 40 meq 05/26/17 12:00 05/27/17 12:04 Kcl Oral Liq 20 Meq/15 Ml PO 40 meq TIDWM KSENIA Administration Potassium Chloride 40 meq 05/27/17 17:30 05/29/17 07:59 Kcl Oral Liq 20 Meq/15 Ml PO 40 meq BIDWM KSENIA Administration Potassium Chloride 40 meq 05/29/17 09:00 05/30/17 08:42 Kcl Oral Liq 20 Meq/15 Ml PO 40 meq DAILY KSENIA Administration Prednisone 60 mg 06/02/17 08:00 06/03/17 09:20 Deltasone 20 Mg PO 60 mg WB KSENIA Administration Prednisone 50 mg 06/03/17 11:15 06/05/17 09:02 Deltasone 50 Mg PO 50 mg WB KSENIA Administration Promethazine HCl 12.5 - 25 mg 05/28/17 09:24 Phenergan Inj IVP Q6HR PRN Nausea &/or vomiting Simvastatin 20 mg 05/17/17 21:00 05/27/17 20:36 Zocor PO Not Given HS KSENIA Vancomycin HCl 1 each 05/21/17 15:19 05/21/17 15:53 Pharmacy Consult - Vancomycin MC 05/21/17 15:20 1 each O ONE Administration - Constitutional no acute distress, morbidly obese, cooperative - Routine HEENT Exam Head: Present: normocephalic, atraumatic Eye: Present: EOMI, PERRL ENT: Present: mucous membranes moist - Routine Neck Exam Present: supple, full ROM, trachea midline - Routine Respiratory Exam Present: decreased breath sounds. Absent: patient mechanically ventilated, prolonged expiratory phase - Routine Cardiovascular Exam Present: RRR, S1, no murmur - Routine Abdominal Exam Present: soft, normoactive bowel sounds - Routine Extremities Exam Present: edema, non tender, full ROM - Routine Back/Spine/Pelvis Exam Back/Spine: Present: full ROM - Routine Skin Exam Present: intact, dry - Routine Neurological Exam Present: alert, oriented X3, CN II-XII intact - Routine Psychiatric Exam Present: normal affect, normal thought process - Urinary Catheter Management Urethral Cath placed during this visit: yes, but has since been removed by the nurse Insertion date: 05/21/17 Removal date: 06/06/17 Removal time: 10:45 Results - Laboratory Findings Laboratory: Laboratory Results - last 48 hr 06/05/17 06/05/17 06/05/17 11:13 15:42 22:02 Glucometer 194 242 167 06/06/17 06/06/17 06/06/17 05:35 10:31 16:56 Glucometer 122 220 314 06/06/17 06/07/17 20:01 06:10 Glucometer 249 125 - Diagnostic Findings Chest x-ray: image reviewed (no new CXR) Assessment and Plan - Assessment and Plan Acute on Chronic Hypoxic Hypercapnic Respiratory Failure LLL mass 2.2 cm - plan OP biopsy COPD exacerbation Influenza B Chest Pain/Wide complex tachycardia s/p cardioversion CAD s/p stent ANGELLA/OHS Morbid Obesity Thrombocytopenia - resolved Plan: Pt currently on O2 at 5L per [place], home O2. Using bipap at night. Would cont inhaled regimen with a/a, pulmicort and on prednisone 40mg, wean. Stable from a pulm standpoint to transfer to rehab. Cont BT's, wean steroids and cont home NIPPV. - Time Spent With Patient Total time spent is greater than 50% in coordination of care (as documented) at patient's floor/unit and/or counseling patient: less than 15 minutes
[2017-06-07] MEDS: INSULIN ASPART 100unit/ml INJECTION SQ PRN ×3 (11:30→21:21)
[2017-06-07] MEDS: LISINOPRIL 10 MG TABLET PO SCH (12:05)
[2017-06-07] MEDS: ATENOLOL 25 MG TABLET PO SCH ×2 (12:06→21:22)
--- NOTE | 2017-06-07 18:19 | Progress Note ---
- Date 06/07/17 Subjective: Patient in bed. Family present. He says he understands he needs to go somewhere for rehab. He is hoping it will be SNU at [facility]. No soa, chest pain. He says therapy is working more with him. Objective Vital signs: Temperature 97.0 F 06/07/17 15:28 Pulse Rate 74 06/07/17 15:28 Respiratory Rate 18 06/07/17 15:28 Blood Pressure 102/62 06/07/17 15:28 Pulse Oximetry 97 06/07/17 15:28 Rhythm: Normal Sinus Rhythm Height/Weight/BMI: Height 6 ft 0.83 in Weight 124.6 kg Body Mass Index 41.5 - Constitutional Present: no acute distress, mild distress - Routine HEENT Exam Head: Present: normocephalic, atraumatic Eye: Present: EOMI, PERRL - Routine Respiratory Exam Present: CTA bilaterally - Routine Cardiovascular Exam Present: RRR, S1, S2 - Routine Abdominal Exam Present: soft, non distended, non tender - Routine Extremities Exam Present: edema - Routine Neurological Exam Present: alert, oriented X3 Results - Labs CBC & Chem 7: 06/05/17 06:22 06/05/17 06:22 Microbiology Results: Microbiology 05/25/17 15:49 Midline Blood Culture - Final No Growth After 5 Days 05/25/17 15:43 Port/Picc Blood Culture - Final No Growth After 5 Days 05/20/17 04:36 Midline Blood Culture - Final No Growth After 5 Days 05/20/17 04:36 Midline Blood Culture - Final No Growth After 5 Days 05/21/17 13:45 Sputum, Expectorated Gram Stain - Final 05/21/17 13:45 Sputum, Expectorated Sputum Culture - Final Yeast, not C. albicans Normal Respiratory Charly Assessment and Plan (1) Acute exacerbation of chronic obstructive airways disease Current visit: Yes Status: Acute (2) Acute and chronic respiratory failure with hypercapnia Current visit: Yes Status: Acute (3) NSTEMI (non-ST elevated myocardial infarction) Current visit: Yes Status: Acute Assessment and Plan: Assessment Acute on chronic respiratory failure with hypercapnia and hypoxia - baseline home oxygen at 5L; intubated 05/21-extubated on 05/27, now on Bipap/NC Leukocytosis-trending down NSTEMI-peak troponin 3.09, diffuse T changes, s/p heart cath with 2 stents 05/28 COPD exacerbation Transaminitis Influenza A Hyperglycemia Alerted Mental Status Thrombocytopenia Constipation suspect orthostatic hypotension Resolved Bilateral lower lobe pneumonia Bacteremia Fever Hypokalemia Wide complex tachycardia s/p cardioversion Dehydration Chronic Medical: Cardiomyopathy-EF 30% by echo 05/21/17 Pulmonary nodule - Irregular 2.2cm left lower lobe pulmonary nodule Anemia, unspecified, stable Coronary Artery Disease Hypertension Sleep Apnea Diabetes Mellitus Type 2 - A1c on 04/17/17 was 6.4% GERD Osteoarthritis Peripheral neuropathy Fibromyalgia Depression Tobacco dependency Peripheral vascular disease Morbid obesity - BMI >40 Plan Extubated 05/27, continue Bipap/NC-5 L as per pulm. IV steroids converted to prednisone 06/02-dosed decreased by pulmonary. Tamiflu for influenza A-initiated 05/29; course completed. Soft diet with ground meats with regular liquids per speech therapy. Insulin doses decreased significantly given discontinuation of tube feedings. Blood sugars down. Now eating more. Monitor. Continue corrective scale. Continue ASA and Bivalirudin per cardiology; also on beta jesenia and atorvastatin. Continue to work with PT/OT/Speech On usual doses of Wellbutrin and citalopram. Has Ativan and haloperidol available if needed for anxiety or delirium. Had bladder training. Rylan dismissed when patient intended to leave AMA. Decreased lisinopril. Clonidine and amlodipine DC'd Ready for dismissal. Now accepting he needs to go to SNU or IRU. Awaiting insurance decision. - Physician Narrative Narrative: Date: 06/07/17 Time: 1815 Hospital Course Summary Disclaimer: The visit summary below is not to be considered part of the above Progress Note. Hospital Course: 05/17/17 Admission Admit to observation status under the care of Dr. Lopez. Sepsis work up initiated in ED. Patient meeting SIRS criteria based on tachycardia, tachypnea and reported fevers at home without obvious source. Initial lactate was 1.4 with repeat lactate decreased to 0.9. Blood cultures pending. WBC stable at 5.0. CXR revealed left basilar scarring without focal pneumonia. Respiratory panel was negative. Patient was given DuoNeb treatments and Solu-Medrol 125mg IV in ED. Will continue respiratory care with DuoNeb treatments QID and Q6H PRN as well as Solu -Medrol 125mg IV Q6H. History of diabetes with A1c on 04/17/17 at 6.4%. Continue home medications and monitor blood sugars closely given treatment with steroids. Sliding scale insulin as indicated for hyperglycemia. Patient was placed on BiPAP in ED with improvement. Continue BiPAP as indicated. Ativan as needed for anxiety and agitation while on BiPAP. Will monitor closely on telemetry with continuous pulse oximetry. Oxygen as needed to maintain SAO2 between 90-95%, weaning as able to baseline of 5L. SCDs for DVT prophylaxis. Given sudden onset of dyspnea, will obtain CT angio chest for further evaluation of PE - results pending. NS at 100cc/hr for hydration given decreased oral intake as on BiPAP. Monitor daily weight closely for signs of fluid overload. Recheck labs in AM to monitor blood counts, electrolytes and renal function. Patient wishes to maintain FULL CODE status. Upon discharge, patient's care will be returned to his PCP, Dr. Odom. 05/18/17 Don reports that his breathing is a little better today and is he is more alert. New cough with sputum production. 1 of the 2 blood cultures obtained on admission is POSITIVE for Streptococcus. Night telehospitalist was notified and Rocephin 2g IV Q24 hours was initiated for antimicrobial coverage. Given new cough, will try and obtain a sputum culture. Mucinex for mucolytic effect. Ricola for cough. Continue respiratory care including nebulized treatments. Continue to encourage BiPAP as indicated and supplemental oxygen to maintain SAO2 between 90 -95%. Wean oxygen to baseline of 5L as able. Given sudden onset of dyspnea, CT angio chest was obtained and revealed no PE but did note 2.2cm left lower lobe pulmonary nodule raising concern for primary lung malignancy and recommended further evaluation. Will discuss consideration of pulmonary consult for further evaluation. Continue Solu-Medrol 125mg IV Q6 hours. Anticipate initiation of tapering in near future. Blood sugars remain elevated, most likely steroid effect, ranging from 160's-> 200. Continue sliding scale insulin. Given recent CT with contrast, will hold metformin and restart 05/19/17. Continue NS at 75cc/hr for hydration. Monitor urinary output and daily weight closely for signs of fluid over load. Oral intake is good. Consider discontinuation of fluids this afternoon. Ativan as needed for anxiety and agitation while on BiPAP. Troponins continue to trend up slowing - 0.015, 0.017, 0.029, 0.045 and 0.048 this morning. Will recheck troponin at 1030 and continue to monitor closely on telemetry. Patient denies chest pain. SCDs for DVT prophylaxis. Recheck labs in AM to monitor blood counts, electrolytes and renal function. Discussed at length with patient and family the importance of smoking cessation. He admits to wanting to stop smoking and inquired about initiation of Chantix. Continue Wellbutrin for smoking cessation. With BC positive and starting IV antibiotics, will change admission status to inpatient. Anticipate greater than 2 midnights of care needed. 05/19/17 Continue with Rocephin for antimicrobial coverage. With lungs still very tight and congested, will continue with Solu-Medrol 125mg IV q 6 hours. Continue Neb treatments and acapella. Encourage use of BiPAP as much as able to help his chronic hypercapnea. Stressed with about the importance of him not smoking. She understand. Will consult with Dr Ashby for pulm evaluation. Will discontinue IVF. May restart metformin this evening. Sugars with elevation secondary to steroids. Did give Diamox 500mg x1 this am for fluid motivation and to help minimize contraction alkalosis. PT/OT to evaluate and initiate treatment tomorrow for his significant pulmonary debility. 05/20 Continue with Rocephin for antimicrobial coverage. One blood culture was positive with streptococcus Viridans, Repeat BC were drawn this morning. Scheduled breathing tx, IV solu-medrol, as well as oxygen and Bipap Appreciate Dr Ashby consultation. Likely require bronchoscopy for biopsy of lung mass. Continue to monitor BGM remain elevated. Metformin was resumed as well as sliding scale insulin. Encourage PT/OT for strengthening 05/21 Resp failure --> ABG shows resp acidosis and he was placed on BiPAP with improvement in color. Repeat ABG shows pH 7.12, pCO2 106, pO2 185. CXR ordered. BG 230. Chest pain --> EKG shows ST changes and widened QRS, poss a-flutter; troponin pending. Dr. Govea consulted. He's had 2 NTG but remains very hypertensive with SBP 220s. Pt failed to respond to adenosine, and subseqently was cardioverted with conversion to sinus tach. Rapid response activated and Dr. Ramírez was at bedside x20 min. Transferred to CCU, where pt was met by Dr. Govea for evaluation. Continue treatment for resp status including steroids and Rocephin. 05/22 Patient remains on a ventilator requiring continuous sedation. Oxygenation borderline on 40% FiO2-oxygen flow increased to 60% by pulmonary earlier today. Continue triple antibiotics (cefepime, Levaquin, vancomycin) pending sputum culture due to extensive pneumonia on CT/chest x-ray yesterday-not present on initial films. Peak troponin 3.09 with diffuse T-wave changes; discussed with Dr. Govea and will require cardiac catheterization in the future. Continue heparin drip. Blood pressure is uncontrolled-clonidine patch initiated earlier, IV hydralazine added as needed for systolic pressures above 180. OG placed-resume statin, SSRI, atenolol, and aspirin. Assess gastric residuals today-anticipate beginning tube feedings tomorrow. Adequate urine output, continue to monitor. Blood sugars remain elevated, off metformin at present. Increase basal insulin. 05/23 Patient remains on a ventilator requiring continuous sedation. Continue triple antibiotics (cefepime, Levaquin, vancomycin); suspect aspiration pneumonia-sputum culture normal charly. Extensive infiltrates on CT chest. Repeat chest x-ray in a.m. Fluid balance positive-roughly 5 L over several days, weight up-diuresis today. Potassium supplemented IV earlier today. Peak troponin 3.09 with diffuse T-wave changes; discussed with Dr. Govea and will require cardiac catheterization in the future. Continue heparin drip. Blood pressure remains elevated but improved from yesterday with addition of clonidine patch and resumption of atenolol per OG. IV hydralazine available as needed for systolic pressures above 180. OG placed 05/22-low volume gastric output overnight and tolerating medications per OG. Will initiate tube feedings with low glycemic formula at 20 mL per hour overnight. Nutrition consult. Blood sugars remain elevated, off metformin at present and on steroids. Increase basal insulin to 40 units anticipating further increase in blood sugar with initiation of tube feedings. 05/24 Remains ventilator dependent. Steroids decreased. Vancomycin discontinued, continue Levaquin and cefepime for probable aspiration pneumonia and Streptococcus viridans positive blood culture. Continue diuresis, blood pressures elevated-atenolol increased and lisinopril initiated to improve control. Tolerating tube feedings at low-volume, converted pulmonary formula with goal of 80 mL per hour. Platelet count dropping, heparin discontinued and bivalirudin initiated. 05/25 Tolerating spontaneous breathing trial, steroids decreased. Continues to require continuous sedation. Lisinopril increased to 20 mg to improve blood pressure control. Platelet count down to 100K; HIT Ab pending. Fevers overnight without evidence source, leukocytosis/left shift resolved improved. Lines to be cultured. 05/26 FiO2 titrated to 40%; diuresing well-continue same. Spontaneous breathing trial planned for the morning with possible extubation at that time. Cardiac status stable, no further tachyarrhythmias. Trend to improved blood pressures. Cardiac catheterization planned in the future. Remains on bivalirudin. Platelet count 86K today, HIT Ab pending. Tube feedings at goal, blood sugars significantly elevated-NovoLog scheduled every 6 hours and when necessary. Chest x-ray improved, remains on Levaquin and cefepime for probable aspiration pneumonia. Blood cultures drawn yesterday negative thus far. 05/27 Extubated this afternoon, OG discontinued in conjunction with extubation. CPAP initiated for respiratory support. Speech therapy, PT, OT consultations tomorrow. Anticipate significant reduction in fluid volume off sedating medications and tube feedings--> Lasix dose decreased to twice daily administration. Platelet count stabilizing, HIT Ab negative. Intermittent fever, remains on antibiotics for possible aspiration pneumonia. Repeat blood cultures negative. 05/29 Extubated 05/27 Placed on CPAP with home equipment. Baseline 5L Currently tolerating NC, oxygen support as needed to maintain sats and mentation , pulm consulted and following CXR-stable Leukocytosis-likely 2/2 steroid effect, PCT negative, no fever x48 hours Cefepime and Levaquin currently. Vanc discontinued 05/24. Likely d/c abx today. Will consult ID for abx recs Failed speech therapy Continue tube feeds and meds via [facility] Monitor fluid status-hold evening dose of lasix Peak troponin 3.09 on 05/21/17 with diffuse T-wave changes; heart cath 05/28-now on ASA and Bivalirudin Monitor platelet count-currently WNL Monitor BP, adjust medications as needed Monitor glucose and continue insulin as ordered Discussed with nursing staff, and infectious disease 05/30 Extubated 05/27, continue Bipap/NC as per pulm Weaning steroids CXR-improving Leukocytosis Cefepime, Levaquin, Vanc discontinued Continue Tamiflu Failed speech therapy, continue to re-eval Continue tube feeds and meds via [facility]hoff, feeds at 40ml/hr, goal of 80ml/hr Discontinue lasix, give 1L NS and re-eval fluid status Continue ASA and Bivalirudin per cardiology 05/31 Failed speech therapy, continue to re-eval Tube feedings and medications per [facility], goal 80 mL per hour tube feeding. Adjust insulin for hyperglycemia. 06/01 describes increased confusion/irritability-haloperidol initiated as needed. Converting to prednisone per [facility]obb[facility] in a.m.; blood gas with mild hypoxia-FiO2 increased. Continue nutritional support per D[facility]; insulins again adjusted for persistent hyperglycemia. Chest pain described overnight, EKG unchanged. 06/02 Complaints of chest pain/dyspnea again this morning-resolved with position change. Intermittent confusion, haloperidol given twice overnight. Persistent hyperglycemia, scheduled short acting insulin adjusted further. Solu-Medrol discontinued, prednisone initiated per Dobbhoff this morning. Lactulose administered per [facility] for ongoing constipation; MiraLAX added with recommendation the patient take it orally. Patient and family advised he will require rehabilitation before discharge home can be entertained. 06/07 Extubated 05/27, continue Bipap/NC-5 L as per pulm. IV steroids converted to prednisone 06/02-dosed decreased by pulmonary. Tamiflu for influenza A-initiated 05/29; course completed. Soft diet with ground meats with regular liquids per speech therapy. Insulin doses decreased significantly given discontinuation of tube feedings. Blood sugars down. Now eating more. Monitor. Continue corrective scale. Continue ASA and Bivalirudin per cardiology; also on beta jesenia and atorvastatin. Continue to work with PT/OT/Speech On usual doses of Wellbutrin and citalopram. Has Ativan and haloperidol available if needed for anxiety or delirium. Had bladder training. Rylan dismissed when patient intended to leave AMA. Decreased lisinopril. Clonidine and amlodipine DC'd Ready for dismissal. Now accepting he needs to go to SNU or IRU. Awaiting insurance decision.
[2017-06-07] MEDS: ATORVASTATIN 40 MG TABLET PO SCH (21:21)
[2017-06-07] MEDS: INSULIN GLARGINE 100unit/ml INJECTION SQ SCH (21:21)
[2017-06-08] MEDS: ALBUTEROL/IPRATROPIUM 2.5mg-0.5mg/3ml NEB AEROSOL SCH ×5 (05:09→22:45)
[2017-06-08] MEDS: OMEPRAZOLE 20 MG CAPSULE PO SCH (06:10)
[2017-06-08] MEDS: GUAIFENESIN 200mg/10ml ORAL LIQUID PO SCH ×4 (06:10→23:12)
[2017-06-08] MEDS: ASPIRIN *EC* 81 MG TABLET PO SCH (09:16)
[2017-06-08] MEDS: PredniSONE 20 MG TABLET PO SCH (09:16)
[2017-06-08] MEDS: ATENOLOL 25 MG TABLET PO SCH ×2 (09:17→21:48)
[2017-06-08] MEDS: GABAPENTIN 300 MG CAPSULE PO SCH ×3 (09:18→21:47)
[2017-06-08] MEDS: LISINOPRIL 10 MG TABLET PO SCH (09:18)
[2017-06-08] MEDS: CITALOPRAM 40 MG TABLET PO SCH (09:19)
[2017-06-08] MEDS: TICAGRELOR 90 MG TABLET PO SCH ×2 (09:19→21:47)
[2017-06-08] MEDS: BuPROPion SR 150mg (12HR) TABLET PO SCH ×2 (09:19→21:47)
[2017-06-08] MEDS: POLYETHYL GLYCOL 3350 17gm PACKET PO SCH (09:20)
[2017-06-08] MEDS: NYSTATIN 500,000 units/5 ml ORAL LIQUID PO SCH ×4 (09:38→21:50)
[2017-06-08] MEDS: BUDESONIDE INH.SOLN 0.5mg/2ml NEB AEROSOL SCH ×2 (10:30→22:44)
--- NOTE | 2017-06-08 11:10 | Progress Note ---
- Date 06/08/17 Subjective: Howard is seen today in follow up. He is up in chair- is a bit sleepy. Taking nebulizer treatment. His is at bedside. Reports that pt has a sore throat- RT reports thrush. Patient sticks his tongue out for me, but doesn't open eyes or participate in conversation. Chart reviewed for additional information. Objective Vital signs: Temperature 97.3 F 06/08/17 07:57 Pulse Rate 80 06/08/17 07:57 Respiratory Rate 20 06/08/17 10:30 Blood Pressure 104/65 06/08/17 07:57 Pulse Oximetry 98 06/08/17 10:41 Rhythm: Normal Sinus Rhythm Height/Weight/BMI: Height 1.85 m Weight 124.6 kg Body Mass Index 41.5 - Constitutional Present: morbidly obese, somnolent - Routine HEENT Exam ENT: Present: mucous membranes dry (Possible thrush. Limited exam. ). Absent: dentition normal - Routine Respiratory Exam Present: decreased breath sounds (Bases), rhonchi, wheezes. Absent: accessory muscle use, dyspnea - Routine Cardiovascular Exam Present: RRR, S1, S2, no murmur - Routine Abdominal Exam Present: soft, normoactive bowel sounds, non tender - Routine Extremities Exam Present: edema (Trace LE), non tender (Bilateral LE changes c/w vascular insufficiency) - Routine Musculoskeletal Exam Musculoskeletal: Present: no joint swelling - Routine Skin Exam Present: intact, dry, warm, cracked (Cracked skin, discoloration c/w vascular insufficiency) - Routine Neurological Exam Present: altered mental status, moving all extremities - Routine Psychiatric Exam Present: unable to assess Results - Labs CBC & Chem 7: 06/08/17 04:14 06/08/17 04:14 Microbiology Results: Microbiology 05/25/17 15:49 Midline Blood Culture - Final No Growth After 5 Days 05/25/17 15:43 Port/Picc Blood Culture - Final No Growth After 5 Days 05/20/17 04:36 Midline Blood Culture - Final No Growth After 5 Days 05/20/17 04:36 Midline Blood Culture - Final No Growth After 5 Days 05/21/17 13:45 Sputum, Expectorated Gram Stain - Final 05/21/17 13:45 Sputum, Expectorated Sputum Culture - Final Yeast, not C. albicans Normal Respiratory Charly Assessment and Plan (1) Acute exacerbation of chronic obstructive airways disease Current visit: Yes Status: Acute (2) Acute and chronic respiratory failure with hypercapnia Current visit: Yes Status: Acute (3) NSTEMI (non-ST elevated myocardial infarction) Current visit: Yes Status: Acute Assessment and Plan: Assessment Acute on chronic respiratory failure with hypercapnia and hypoxia - baseline home oxygen at 5L; intubated 05/21-extubated on 05/27, now on Bipap/NC Leukocytosis-trending down NSTEMI-peak troponin 3.09, diffuse T changes, s/p heart cath with 2 stents 05/28 COPD exacerbation Transaminitis Influenza A Hyperglycemia Alerted Mental Status Thrombocytopenia Constipation suspect orthostatic hypotension Thrush Resolved Bilateral lower lobe pneumonia Bacteremia Fever Hypokalemia Wide complex tachycardia s/p cardioversion Dehydration Chronic Medical: Cardiomyopathy-EF 30% by echo 05/21/17 Pulmonary nodule - Irregular 2.2cm left lower lobe pulmonary nodule Anemia, unspecified, stable Coronary Artery Disease Hypertension Sleep Apnea Diabetes Mellitus Type 2 - A1c on 04/17/17 was 6.4% GERD Osteoarthritis Peripheral neuropathy Fibromyalgia Depression Tobacco dependency Peripheral vascular disease Morbid obesity - BMI >40 Plan 06/08/17 Extubated 05/27, continue Bipap/NC-5 L as per pulm. IV steroids converted to prednisone 06/02-dosed decreased by pulmonary. Tamiflu for influenza A-initiated 05/29; course completed. Soft diet with ground meats with regular liquids per speech therapy. Insulin doses decreased significantly given discontinuation of tube feedings. Blood sugars down. Now eating more. Monitor. Continue corrective scale. Continue ASA and Bivalirudin per cardiology; also on beta jesenia and atorvastatin. Continue to work with PT/OT/Speech On usual doses of Wellbutrin and citalopram. Has Ativan and haloperidol available if needed for anxiety or delirium. Had bladder training. Rylan dismissed when patient intended to leave AMA. Decreased lisinopril. Clonidine and amlodipine DC'd. Atenolol. Consider change to Coreg or Metoprolol Succinate for known HFrEF. Ready for dismissal. Now accepting he needs to go to SNU or IRU. Awaiting insurance decision. Continue Nystatin for thrush. Sore throat may be due to sinus drainage- humidity added to O2 today. Repeat CXR in AM. Consider change back to metformin upon dismissal. Addendum: Seen and examined patient on same day as the above note. Agree with history, physical, assessment and plan. Comprehensive physical findings correlate to the above note. Subjective: patient stated several peculiar thoughts, complains of his throat being sore but thinks that he is being poisoned. (This may be hyperbole but I'm not yet certain). Return to patient's room approximately one hour after dosing of metoprolol and marshall inhibitor. Nursing notes blood pressures 70s over 30s and patient claiming to have double vision. Objective: physical exam is fairly benign initially with clear lung valiente bilaterally. Posterior pharynx does have some erythema and spotty lesions. Assessment and plan: transient hypertension secondary to combination oral beta jesenia and marshall inhibitor. Recommending not dosing within a 2 hour window together. Oral pharyngitis appears to be thrush but has not been responsive to the nystatin swish and swallow. Will had lidocaine spray and considering changing anticandidal dedication Documented on Dragon speech to text. Efforts to correct speech recognition errors performed, but variation may exist DVT Prophylaxis: SCD's GI Prophylaxis: other (PPI) Resuscitation Status: Full Code - Time spent with patient Time with patient PN: 30 minutes - Physician Narrative Narrative: Date: 06/08/17 Time: 1107 Hospital Course Summary Disclaimer: The visit summary below is not to be considered part of the above Progress Note. Hospital Course: 05/17/17 Admission Admit to observation status under the care of Dr. Lopez. Sepsis work up initiated in ED. Patient meeting SIRS criteria based on tachycardia, tachypnea and reported fevers at home without obvious source. Initial lactate was 1.4 with repeat lactate decreased to 0.9. Blood cultures pending. WBC stable at 5.0. CXR revealed left basilar scarring without focal pneumonia. Respiratory panel was negative. Patient was given DuoNeb treatments and Solu-Medrol 125mg IV in ED. Will continue respiratory care with DuoNeb treatments QID and Q6H PRN as well as Solu -Medrol 125mg IV Q6H. History of diabetes with A1c on 04/17/17 at 6.4%. Continue home medications and monitor blood sugars closely given treatment with steroids. Sliding scale insulin as indicated for hyperglycemia. Patient was placed on BiPAP in ED with improvement. Continue BiPAP as indicated. Ativan as needed for anxiety and agitation while on BiPAP. Will monitor closely on telemetry with continuous pulse oximetry. Oxygen as needed to maintain SAO2 between 90-95%, weaning as able to baseline of 5L. SCDs for DVT prophylaxis. Given sudden onset of dyspnea, will obtain CT angio chest for further evaluation of PE - results pending. NS at 100cc/hr for hydration given decreased oral intake as on BiPAP. Monitor daily weight closely for signs of fluid overload. Recheck labs in AM to monitor blood counts, electrolytes and renal function. Patient wishes to maintain FULL CODE status. Upon discharge, patient's care will be returned to his PCP, Dr. Odom. 05/18/17 Don reports that his breathing is a little better today and is he is more alert. New cough with sputum production. 1 of the 2 blood cultures obtained on admission is POSITIVE for Streptococcus. Night telehospitalist was notified and Rocephin 2g IV Q24 hours was initiated for antimicrobial coverage. Given new cough, will try and obtain a sputum culture. Mucinex for mucolytic effect. Ricola for cough. Continue respiratory care including nebulized treatments. Continue to encourage BiPAP as indicated and supplemental oxygen to maintain SAO2 between 90 -95%. Wean oxygen to baseline of 5L as able. Given sudden onset of dyspnea, CT angio chest was obtained and revealed no PE but did note 2.2cm left lower lobe pulmonary nodule raising concern for primary lung malignancy and recommended further evaluation. Will discuss consideration of pulmonary consult for further evaluation. Continue Solu-Medrol 125mg IV Q6 hours. Anticipate initiation of tapering in near future. Blood sugars remain elevated, most likely steroid effect, ranging from 160's-> 200. Continue sliding scale insulin. Given recent CT with contrast, will hold metformin and restart 05/19/17. Continue NS at 75cc/hr for hydration. Monitor urinary output and daily weight closely for signs of fluid over load. Oral intake is good. Consider discontinuation of fluids this afternoon. Ativan as needed for anxiety and agitation while on BiPAP. Troponins continue to trend up slowing - 0.015, 0.017, 0.029, 0.045 and 0.048 this morning. Will recheck troponin at 1030 and continue to monitor closely on telemetry. Patient denies chest pain. SCDs for DVT prophylaxis. Recheck labs in AM to monitor blood counts, electrolytes and renal function. Discussed at length with patient and family the importance of smoking cessation. He admits to wanting to stop smoking and inquired about initiation of Chantix. Continue Wellbutrin for smoking cessation. With BC positive and starting IV antibiotics, will change admission status to inpatient. Anticipate greater than 2 midnights of care needed. 05/19/17 Continue with Rocephin for antimicrobial coverage. With lungs still very tight and congested, will continue with Solu-Medrol 125mg IV q 6 hours. Continue Neb treatments and acapella. Encourage use of BiPAP as much as able to help his chronic hypercapnea. Stressed with about the importance of him not smoking. She understand. Will consult with Dr Ashby for pulm evaluation. Will discontinue IVF. May restart metformin this evening. Sugars with elevation secondary to steroids. Did give Diamox 500mg x1 this am for fluid motivation and to help minimize contraction alkalosis. PT/OT to evaluate and initiate treatment tomorrow for his significant pulmonary debility. 05/20 Continue with Rocephin for antimicrobial coverage. One blood culture was positive with streptococcus Viridans, Repeat BC were drawn this morning. Scheduled breathing tx, IV solu-medrol, as well as oxygen and Bipap Appreciate Dr Ashby consultation. Likely require bronchoscopy for biopsy of lung mass. Continue to monitor BGM remain elevated. Metformin was resumed as well as sliding scale insulin. Encourage PT/OT for strengthening 05/21 Resp failure --> ABG shows resp acidosis and he was placed on BiPAP with improvement in color. Repeat ABG shows pH 7.12, pCO2 106, pO2 185. CXR ordered. BG 230. Chest pain --> EKG shows ST changes and widened QRS, poss a-flutter; troponin pending. Dr. Govea consulted. He's had 2 NTG but remains very hypertensive with SBP 220s. Pt failed to respond to adenosine, and subseqently was cardioverted with conversion to sinus tach. Rapid response activated and Dr. Ramírez was at bedside x20 min. Transferred to CCU, where pt was met by Dr. Govea for evaluation. Continue treatment for resp status including steroids and Rocephin. 05/22 Patient remains on a ventilator requiring continuous sedation. Oxygenation borderline on 40% FiO2-oxygen flow increased to 60% by pulmonary earlier today. Continue triple antibiotics (cefepime, Levaquin, vancomycin) pending sputum culture due to extensive pneumonia on CT/chest x-ray yesterday-not present on initial films. Peak troponin 3.09 with diffuse T-wave changes; discussed with Dr. Govea and will require cardiac catheterization in the future. Continue heparin drip. Blood pressure is uncontrolled-clonidine patch initiated earlier, IV hydralazine added as needed for systolic pressures above 180. OG placed-resume statin, SSRI, atenolol, and aspirin. Assess gastric residuals today-anticipate beginning tube feedings tomorrow. Adequate urine output, continue to monitor. Blood sugars remain elevated, off metformin at present. Increase basal insulin. 05/23 Patient remains on a ventilator requiring continuous sedation. Continue triple antibiotics (cefepime, Levaquin, vancomycin); suspect aspiration pneumonia-sputum culture normal charly. Extensive infiltrates on CT chest. Repeat chest x-ray in a.m. Fluid balance positive-roughly 5 L over several days, weight up-diuresis today. Potassium supplemented IV earlier today. Peak troponin 3.09 with diffuse T-wave changes; discussed with Dr. Govea and will require cardiac catheterization in the future. Continue heparin drip. Blood pressure remains elevated but improved from yesterday with addition of clonidine patch and resumption of atenolol per OG. IV hydralazine available as needed for systolic pressures above 180. OG placed 05/22-low volume gastric output overnight and tolerating medications per OG. Will initiate tube feedings with low glycemic formula at 20 mL per hour overnight. Nutrition consult. Blood sugars remain elevated, off metformin at present and on steroids. Increase basal insulin to 40 units anticipating further increase in blood sugar with initiation of tube feedings. 05/24 Remains ventilator dependent. Steroids decreased. Vancomycin discontinued, continue Levaquin and cefepime for probable aspiration pneumonia and Streptococcus viridans positive blood culture. Continue diuresis, blood pressures elevated-atenolol increased and lisinopril initiated to improve control. Tolerating tube feedings at low-volume, converted pulmonary formula with goal of 80 mL per hour. Platelet count dropping, heparin discontinued and bivalirudin initiated. 05/25 Tolerating spontaneous breathing trial, steroids decreased. Continues to require continuous sedation. Lisinopril increased to 20 mg to improve blood pressure control. Platelet count down to 100K; HIT Ab pending. Fevers overnight without evidence source, leukocytosis/left shift resolved improved. Lines to be cultured. 05/26 FiO2 titrated to 40%; diuresing well-continue same. Spontaneous breathing trial planned for the morning with possible extubation at that time. Cardiac status stable, no further tachyarrhythmias. Trend to improved blood pressures. Cardiac catheterization planned in the future. Remains on bivalirudin. Platelet count 86K today, HIT Ab pending. Tube feedings at goal, blood sugars significantly elevated-NovoLog scheduled every 6 hours and when necessary. Chest x-ray improved, remains on Levaquin and cefepime for probable aspiration pneumonia. Blood cultures drawn yesterday negative thus far. 05/27 Extubated this afternoon, OG discontinued in conjunction with extubation. CPAP initiated for respiratory support. Speech therapy, PT, OT consultations tomorrow. Anticipate significant reduction in fluid volume off sedating medications and tube feedings--> Lasix dose decreased to twice daily administration. Platelet count stabilizing, HIT Ab negative. Intermittent fever, remains on antibiotics for possible aspiration pneumonia. Repeat blood cultures negative. 05/29 Extubated 05/27 Placed on CPAP with home equipment. Baseline 5L Currently tolerating NC, oxygen support as needed to maintain sats and mentation , pulm consulted and following CXR-stable Leukocytosis-likely 2/ steroid effect, PCT negative, no fever x48 hours Cefepime and Levaquin currently. Vanc discontinued 05/24. Likely d/c abx today. Will consult ID for abx recs Failed speech therapy Continue tube feeds and meds via [facility] Monitor fluid status-hold evening dose of lasix Peak troponin 3.09 on 05/21/17 with diffuse T-wave changes; heart cath 05/28-now on ASA and Bivalirudin Monitor platelet count-currently WNL Monitor BP, adjust medications as needed Monitor glucose and continue insulin as ordered Discussed with nursing staff, and infectious disease 05/30 Extubated 05/27, continue Bipap/NC as per pulm Weaning steroids CXR-improving Leukocytosis Cefepime, Levaquin, Vanc discontinued Continue Tamiflu Failed speech therapy, continue to re-eval Continue tube feeds and meds via Dobhoff, feeds at 40ml/hr, goal of 80ml/hr Discontinue lasix, give 1L NS and re-eval fluid status Continue ASA and Bivalirudin per cardiology 05/31 Failed speech therapy, continue to re-eval Tube feedings and medications per Dobbhoff, goal 80 mL per hour tube feeding. Adjust insulin for hyperglycemia. 06/01 describes increased confusion/irritability-haloperidol initiated as needed. Converting to prednisone per Dobbhoff in a.m.; blood gas with mild hypoxia-FiO2 increased. Continue nutritional support per Dobbhoff; insulins again adjusted for persistent hyperglycemia. Chest pain described overnight, EKG unchanged. 06/02 Complaints of chest pain/dyspnea again this morning-resolved with position change. Intermittent confusion, haloperidol given twice overnight. Persistent hyperglycemia, scheduled short acting insulin adjusted further. Solu-Medrol discontinued, prednisone initiated per Dobbhoff this morning. Lactulose administered per Dobbhoff for ongoing constipation; MiraLAX added with recommendation the patient take it orally. Patient and family advised he will require rehabilitation before discharge home can be entertained. 06/07 Extubated 05/27, continue Bipap/NC-5 L as per pulm. IV steroids converted to prednisone 06/02-dosed decreased by pulmonary. Tamiflu for influenza A-initiated 05/29; course completed. Soft diet with ground meats with regular liquids per speech therapy. Insulin doses decreased significantly given discontinuation of tube feedings. Blood sugars down. Now eating more. Monitor. Continue corrective scale. Continue ASA and Bivalirudin per cardiology; also on beta jesenia and atorvastatin. Continue to work with PT/OT/Speech On usual doses of Wellbutrin and citalopram. Has Ativan and haloperidol available if needed for anxiety or delirium. Had bladder training. Rylan dismissed when patient intended to leave A. Decreased lisinopril. Clonidine and amlodipine DC'd Ready for dismissal. Now accepting he needs to go to SNU or IRU. Awaiting insurance decision. 06/08/17 Extubated 05/27, continue Bipap/NC-5 L as per pulm. IV steroids converted to prednisone 06/02-dosed decreased by pulmonary. Tamiflu for influenza A-initiated 05/29; course completed. Soft diet with ground meats with regular liquids per speech therapy. Insulin doses decreased significantly given discontinuation of tube feedings. Blood sugars down. Now eating more. Monitor. Continue corrective scale. Continue ASA and Bivalirudin per cardiology; also on beta jesenia and atorvastatin. Continue to work with PT/OT/Speech On usual doses of Wellbutrin and citalopram. Has Ativan and haloperidol available if needed for anxiety or delirium. Had bladder training. Rylan dismissed when patient intended to leave AMA. Decreased lisinopril. Clonidine and amlodipine DC'd. Atenolol. Consider change to Coreg or Metoprolol Succinate for known HFrEF. Ready for dismissal. Now accepting he needs to go to SNU or IRU. Awaiting insurance decision. Continue Nystatin for thrush. Sore throat may be due to sinus drainage- humidity added to O2 today. Repeat CXR in AM. Consider change back to metformin upon dismissal.
[2017-06-08] MEDS: INSULIN ASPART 100unit/ml INJECTION SQ PRN ×3 (13:20→21:49)
[2017-06-08] MEDS ORDERED: LIDOCAINE VISCOUS 2% ORAL LIQUID 15ml PO PRN (18:06)
[2017-06-08] MEDS: ATORVASTATIN 40 MG TABLET PO SCH (21:48)
[2017-06-08] MEDS: INSULIN GLARGINE 100unit/ml INJECTION SQ SCH (21:49)
[2017-06-08] MEDS ORDERED: SORE THROAT SPRAY 20ml PO PRN (22:18)
[2017-06-09] MEDS: ALBUTEROL/IPRATROPIUM 2.5mg-0.5mg/3ml NEB AEROSOL SCH ×6 (04:40→22:08)
[2017-06-09] MEDS: GUAIFENESIN 200mg/10ml ORAL LIQUID PO SCH ×3 (05:46→17:34)
[2017-06-09] MEDS: OMEPRAZOLE 20 MG CAPSULE PO SCH (05:46)
[2017-06-09] MEDS: LISINOPRIL 10 MG TABLET PO SCH (08:23)
[2017-06-09] MEDS: CITALOPRAM 40 MG TABLET PO SCH (08:27)
[2017-06-09] MEDS: ASPIRIN *EC* 81 MG TABLET PO SCH (08:27)
[2017-06-09] MEDS: GABAPENTIN 300 MG CAPSULE PO SCH ×3 (08:27→21:57)
[2017-06-09] MEDS: ATENOLOL 25 MG TABLET PO SCH (08:27)
[2017-06-09] MEDS: BuPROPion SR 150mg (12HR) TABLET PO SCH ×2 (08:27→21:57)
[2017-06-09] MEDS: PredniSONE 20 MG TABLET PO SCH (08:27)
[2017-06-09] MEDS: POLYETHYL GLYCOL 3350 17gm PACKET PO SCH (08:28)
[2017-06-09] MEDS: TICAGRELOR 90 MG TABLET PO SCH ×2 (08:28→21:57)
[2017-06-09] MEDS: NYSTATIN 500,000 units/5 ml ORAL LIQUID PO SCH ×4 (08:28→21:57)
[2017-06-09] MEDS: BUDESONIDE INH.SOLN 0.5mg/2ml NEB AEROSOL SCH ×2 (08:33→22:09)
--- NOTE | 2017-06-09 10:11 | XRay Report ---
Indication: Cough, resp. failure PROCEDURE: XR chest 1V: Encounter: Initial Comparison: May 28 Findings: Minimal areas of linear atelectasis in the lung bases. No consolidative pneumonia, pleural effusion or pneumothorax. Heart size, mediastinal contours and pulmonary vascularity are normal. Prior left PICC line has been removed. Impression: Minimal basilar atelectasis. .
[2017-06-09] MEDS: INSULIN ASPART 100unit/ml INJECTION SQ PRN (14:51)
--- NOTE | 2017-06-09 19:53 | Progress Note ---
- Date 06/09/17 Subjective: No complaints of breathlessness. States that the viscous lidocaine has helped with his throat. Objective Vital signs: Temperature 98.1 F 06/09/17 16:07 Pulse Rate 89 06/09/17 16:07 Respiratory Rate 18 06/09/17 17:06 Blood Pressure 112/65 06/09/17 18:47 Pulse Oximetry 99 06/09/17 17:06 Rhythm: Normal Sinus Rhythm Height/Weight/BMI: Height 6 ft 0.83 in Weight 123.3 kg Body Mass Index 41.5 - Constitutional Present: well nourished, well developed - Routine HEENT Exam Eye: Present: EOMI ENT: Present: mucous membranes moist, dentition normal - Routine Respiratory Exam Present: rhonchi. Absent: wheezes - Routine Cardiovascular Exam Present: RRR. Absent: murmur - Routine Abdominal Exam Present: soft, normoactive bowel sounds, non distended. Absent: tenderness - Routine Extremities Exam Present: normal capillary refill - Routine Skin Exam Present: dry, warm - Routine Neurological Exam Present: alert, oriented X3, CN II-XII intact - Routine Lymphatic Exam Lymphatic: Absent: adenopathy - Routine Psychiatric Exam Present: normal affect Results - Labs CBC & Chem 7: 06/09/17 05:02 06/09/17 05:02 Microbiology Results: Microbiology 05/25/17 15:49 Midline Blood Culture - Final No Growth After 5 Days 05/25/17 15:43 Port/Picc Blood Culture - Final No Growth After 5 Days 05/20/17 04:36 Midline Blood Culture - Final No Growth After 5 Days 05/20/17 04:36 Midline Blood Culture - Final No Growth After 5 Days 05/21/17 13:45 Sputum, Expectorated Gram Stain - Final 05/21/17 13:45 Sputum, Expectorated Sputum Culture - Final Yeast, not C. albicans Normal Respiratory Charly Assessment and Plan (1) Acute exacerbation of chronic obstructive airways disease Current visit: Yes Status: Acute (2) Acute and chronic respiratory failure with hypercapnia Current visit: Yes Status: Acute (3) NSTEMI (non-ST elevated myocardial infarction) Current visit: Yes Status: Acute Assessment and Plan: Assessment Acute on chronic respiratory failure with hypercapnia and hypoxia - baseline home oxygen at 5L; intubated 05/21-extubated on 05/27, now on Bipap/NC Leukocytosis-trending down NSTEMI-peak troponin 3.09, diffuse T changes, s/p heart cath with 2 stents 05/28 COPD exacerbation Transaminitis Influenza A Hyperglycemia Alerted Mental Status Thrombocytopenia Constipation suspect orthostatic hypotension Thrush Resolved Bilateral lower lobe pneumonia Bacteremia Fever Hypokalemia Wide complex tachycardia s/p cardioversion Dehydration Chronic Medical: Cardiomyopathy-EF 30% by echo 05/21/17 Pulmonary nodule - Irregular 2.2cm left lower lobe pulmonary nodule Anemia, unspecified, stable Coronary Artery Disease Hypertension Sleep Apnea Diabetes Mellitus Type 2 - A1c on 04/17/17 was 6.4% GERD Osteoarthritis Peripheral neuropathy Fibromyalgia Depression Tobacco dependency Peripheral vascular disease Morbid obesity - BMI >40 Plan 06/09/17 Extubated 05/27, on nasal cannula 5 L IV steroids converted to prednisone Tamiflu for influenza A- completed. Soft diet with ground meats with regular liquids per speech therapy. Insulin doses decreased-- Continue corrective scale. Patient will have to do better with work with PT/OT/Speech continuing cardiac medicines Ready for dismissal. Awaiting insurance decision. Continue Nystatin and viscous lidocaine for thrush - Physician Narrative Narrative: Date: 06/09/17 Time: 1950 Hospital Course Summary Disclaimer: The visit summary below is not to be considered part of the above Progress Note. Hospital Course: 05/17/17 Admission Admit to observation status under the care of Dr. Lopez. Sepsis work up initiated in ED. Patient meeting SIRS criteria based on tachycardia, tachypnea and reported fevers at home without obvious source. Initial lactate was 1.4 with repeat lactate decreased to 0.9. Blood cultures pending. WBC stable at 5.0. CXR revealed left basilar scarring without focal pneumonia. Respiratory panel was negative. Patient was given DuoNeb treatments and Solu-Medrol 125mg IV in ED. Will continue respiratory care with DuoNeb treatments QID and Q6H PRN as well as Solu -Medrol 125mg IV Q6H. History of diabetes with A1c on 04/17/17 at 6.4%. Continue home medications and monitor blood sugars closely given treatment with steroids. Sliding scale insulin as indicated for hyperglycemia. Patient was placed on BiPAP in ED with improvement. Continue BiPAP as indicated. Ativan as needed for anxiety and agitation while on BiPAP. Will monitor closely on telemetry with continuous pulse oximetry. Oxygen as needed to maintain SAO2 between 90-95%, weaning as able to baseline of 5L. SCDs for DVT prophylaxis. Given sudden onset of dyspnea, will obtain CT angio chest for further evaluation of PE - results pending. NS at 100cc/hr for hydration given decreased oral intake as on BiPAP. Monitor daily weight closely for signs of fluid overload. Recheck labs in AM to monitor blood counts, electrolytes and renal function. Patient wishes to maintain FULL CODE status. Upon discharge, patient's care will be returned to his PCP, Dr. Odom. 05/18/17 Don reports that his breathing is a little better today and is he is more alert. New cough with sputum production. 1 of the 2 blood cultures obtained on admission is POSITIVE for Streptococcus. Night telehospitalist was notified and Rocephin 2g IV Q24 hours was initiated for antimicrobial coverage. Given new cough, will try and obtain a sputum culture. Mucinex for mucolytic effect. Ricola for cough. Continue respiratory care including nebulized treatments. Continue to encourage BiPAP as indicated and supplemental oxygen to maintain SAO2 between 90 -95%. Wean oxygen to baseline of 5L as able. Given sudden onset of dyspnea, CT angio chest was obtained and revealed no PE but did note 2.2cm left lower lobe pulmonary nodule raising concern for primary lung malignancy and recommended further evaluation. Will discuss consideration of pulmonary consult for further evaluation. Continue Solu-Medrol 125mg IV Q6 hours. Anticipate initiation of tapering in near future. Blood sugars remain elevated, most likely steroid effect, ranging from 160's-> 200. Continue sliding scale insulin. Given recent CT with contrast, will hold metformin and restart 05/19/17. Continue NS at 75cc/hr for hydration. Monitor urinary output and daily weight closely for signs of fluid over load. Oral intake is good. Consider discontinuation of fluids this afternoon. Ativan as needed for anxiety and agitation while on BiPAP. Troponins continue to trend up slowing - 0.015, 0.017, 0.029, 0.045 and 0.048 this morning. Will recheck troponin at 1030 and continue to monitor closely on telemetry. Patient denies chest pain. SCDs for DVT prophylaxis. Recheck labs in AM to monitor blood counts, electrolytes and renal function. Discussed at length with patient and family the importance of smoking cessation. He admits to wanting to stop smoking and inquired about initiation of Chantix. Continue Wellbutrin for smoking cessation. With BC positive and starting IV antibiotics, will change admission status to inpatient. Anticipate greater than 2 midnights of care needed. 05/19/17 Continue with Rocephin for antimicrobial coverage. With lungs still very tight and congested, will continue with Solu-Medrol 125mg IV q 6 hours. Continue Neb treatments and acapella. Encourage use of BiPAP as much as able to help his chronic hypercapnea. Stressed with about the importance of him not smoking. She understand. Will consult with Dr Ashby for pulm evaluation. Will discontinue IVF. May restart metformin this evening. Sugars with elevation secondary to steroids. Did give Diamox 500mg x1 this am for fluid motivation and to help minimize contraction alkalosis. PT/OT to evaluate and initiate treatment tomorrow for his significant pulmonary debility. 05/20 Continue with Rocephin for antimicrobial coverage. One blood culture was positive with streptococcus Viridans, Repeat BC were drawn this morning. Scheduled breathing tx, IV solu-medrol, as well as oxygen and Bipap Appreciate Dr Ashby consultation. Likely require bronchoscopy for biopsy of lung mass. Continue to monitor BGM remain elevated. Metformin was resumed as well as sliding scale insulin. Encourage PT/OT for strengthening 05/21 Resp failure --> ABG shows resp acidosis and he was placed on BiPAP with improvement in color. Repeat ABG shows pH 7.12, pCO2 106, pO2 185. CXR ordered. BG 230. Chest pain --> EKG shows ST changes and widened QRS, poss a-flutter; troponin pending. Dr. Govea consulted. He's had 2 NTG but remains very hypertensive with SBP 220s. Pt failed to respond to adenosine, and subseqently was cardioverted with conversion to sinus tach. Rapid response activated and Dr. Ramírez was at bedside x20 min. Transferred to CCU, where pt was met by Dr. Govea for evaluation. Continue treatment for resp status including steroids and Rocephin. 05/22 Patient remains on a ventilator requiring continuous sedation. Oxygenation borderline on 40% FiO2-oxygen flow increased to 60% by pulmonary earlier today. Continue triple antibiotics (cefepime, Levaquin, vancomycin) pending sputum culture due to extensive pneumonia on CT/chest x-ray yesterday-not present on initial films. Peak troponin 3.09 with diffuse T-wave changes; discussed with Dr. Govea and will require cardiac catheterization in the future. Continue heparin drip. Blood pressure is uncontrolled-clonidine patch initiated earlier, IV hydralazine added as needed for systolic pressures above 180. OG placed-resume statin, SSRI, atenolol, and aspirin. Assess gastric residuals today-anticipate beginning tube feedings tomorrow. Adequate urine output, continue to monitor. Blood sugars remain elevated, off metformin at present. Increase basal insulin. 05/23 Patient remains on a ventilator requiring continuous sedation. Continue triple antibiotics (cefepime, Levaquin, vancomycin); suspect aspiration pneumonia-sputum culture normal charly. Extensive infiltrates on CT chest. Repeat chest x-ray in a.m. Fluid balance positive-roughly 5 L over several days, weight up-diuresis today. Potassium supplemented IV earlier today. Peak troponin 3.09 with diffuse T-wave changes; discussed with Dr. Govea and will require cardiac catheterization in the future. Continue heparin drip. Blood pressure remains elevated but improved from yesterday with addition of clonidine patch and resumption of atenolol per OG. IV hydralazine available as needed for systolic pressures above 180. OG placed 05/22-low volume gastric output overnight and tolerating medications per OG. Will initiate tube feedings with low glycemic formula at 20 mL per hour overnight. Nutrition consult. Blood sugars remain elevated, off metformin at present and on steroids. Increase basal insulin to 40 units anticipating further increase in blood sugar with initiation of tube feedings. 05/24 Remains ventilator dependent. Steroids decreased. Vancomycin discontinued, continue Levaquin and cefepime for probable aspiration pneumonia and Streptococcus viridans positive blood culture. Continue diuresis, blood pressures elevated-atenolol increased and lisinopril initiated to improve control. Tolerating tube feedings at low-volume, converted pulmonary formula with goal of 80 mL per hour. Platelet count dropping, heparin discontinued and bivalirudin initiated. 05/25 Tolerating spontaneous breathing trial, steroids decreased. Continues to require continuous sedation. Lisinopril increased to 20 mg to improve blood pressure control. Platelet count down to 100K; HIT Ab pending. Fevers overnight without evidence source, leukocytosis/left shift resolved improved. Lines to be cultured. 05/26 FiO2 titrated to 40%; diuresing well-continue same. Spontaneous breathing trial planned for the morning with possible extubation at that time. Cardiac status stable, no further tachyarrhythmias. Trend to improved blood pressures. Cardiac catheterization planned in the future. Remains on bivalirudin. Platelet count 86K today, HIT Ab pending. Tube feedings at goal, blood sugars significantly elevated-NovoLog scheduled every 6 hours and when necessary. Chest x-ray improved, remains on Levaquin and cefepime for probable aspiration pneumonia. Blood cultures drawn yesterday negative thus far. 05/27 Extubated this afternoon, OG discontinued in conjunction with extubation. CPAP initiated for respiratory support. Speech therapy, PT, OT consultations tomorrow. Anticipate significant reduction in fluid volume off sedating medications and tube feedings--> Lasix dose decreased to twice daily administration. Platelet count stabilizing, HIT Ab negative. Intermittent fever, remains on antibiotics for possible aspiration pneumonia. Repeat blood cultures negative. 05/29 Extubated 05/27 Placed on CPAP with home equipment. Baseline 5L Currently tolerating NC, oxygen support as needed to maintain sats and mentation , pulm consulted and following CXR-stable Leukocytosis-likely 2/ steroid effect, PCT negative, no fever x48 hours Cefepime and Levaquin currently. Vanc discontinued 05/24. Likely d/c abx today. Will consult ID for abx recs Failed speech therapy Continue tube feeds and meds via [facility] Monitor fluid status-hold evening dose of lasix Peak troponin 3.09 on 05/21/17 with diffuse T-wave changes; heart cath 05/28-now on ASA and Bivalirudin Monitor platelet count-currently WNL Monitor BP, adjust medications as needed Monitor glucose and continue insulin as ordered Discussed with nursing staff, and infectious disease 05/30 Extubated 05/27, continue Bipap/NC as per pulm Weaning steroids CXR-improving Leukocytosis Cefepime, Levaquin, Vanc discontinued Continue Tamiflu Failed speech therapy, continue to re-eval Continue tube feeds and meds via [facility], feeds at 40ml/hr, goal of 80ml/hr Discontinue lasix, give 1L NS and re-eval fluid status Continue ASA and Bivalirudin per cardiology 05/31 Failed speech therapy, continue to re-eval Tube feedings and medications per [facility], goal 80 mL per hour tube feeding. Adjust insulin for hyperglycemia. 06/01 describes increased confusion/irritability-haloperidol initiated as needed. Converting to prednisone per [facility]obb[facility] in a.m.; blood gas with mild hypoxia-FiO2 increased. Continue nutritional support per [facility]; insulins again adjusted for persistent hyperglycemia. Chest pain described overnight, EKG unchanged. 06/02 Complaints of chest pain/dyspnea again this morning-resolved with position change. Intermittent confusion, haloperidol given twice overnight. Persistent hyperglycemia, scheduled short acting insulin adjusted further. Solu-Medrol discontinued, prednisone initiated per [facility]obb[facility] this morning. Lactulose administered per [facility] for ongoing constipation; MiraLAX added with recommendation the patient take it orally. Patient and family advised he will require rehabilitation before discharge home can be entertained. 06/07 Extubated 05/27, continue Bipap/NC-5 L as per pulm. IV steroids converted to prednisone 06/02-dosed decreased by pulmonary. Tamiflu for influenza A-initiated 05/29; course completed. Soft diet with ground meats with regular liquids per speech therapy. Insulin doses decreased significantly given discontinuation of tube feedings. Blood sugars down. Now eating more. Monitor. Continue corrective scale. Continue ASA and Bivalirudin per cardiology; also on beta jesenia and atorvastatin. Continue to work with PT/OT/Speech On usual doses of Wellbutrin and citalopram. Has Ativan and haloperidol available if needed for anxiety or delirium. Had bladder training. Rylan dismissed when patient intended to leave A. Decreased lisinopril. Clonidine and amlodipine DC'd Ready for dismissal. Now accepting he needs to go to SNU or IRU. Awaiting insurance decision. 06/08/17 Extubated 05/27, continue Bipap/NC-5 L as per pulm. IV steroids converted to prednisone 06/02-dosed decreased by pulmonary. Tamiflu for influenza A-initiated 05/29; course completed. Soft diet with ground meats with regular liquids per speech therapy. Insulin doses decreased significantly given discontinuation of tube feedings. Blood sugars down. Now eating more. Monitor. Continue corrective scale. Continue ASA and Bivalirudin per cardiology; also on beta jesenia and atorvastatin. Continue to work with PT/OT/Speech On usual doses of Wellbutrin and citalopram. Has Ativan and haloperidol available if needed for anxiety or delirium. Had bladder training. Rylan dismissed when patient intended to leave AMA. Decreased lisinopril. Clonidine and amlodipine DC'd. Atenolol. Consider change to Coreg or Metoprolol Succinate for known HFrEF. Ready for dismissal. Now accepting he needs to go to SNU or IRU. Awaiting insurance decision. Continue Nystatin for thrush. Sore throat may be due to sinus drainage- humidity added to O2 today. Repeat CXR in AM. Consider change back to metformin upon dismissal.
[2017-06-09] MEDS: INSULIN GLARGINE 100unit/ml INJECTION SQ SCH (21:56)
[2017-06-09] MEDS: ATORVASTATIN 40 MG TABLET PO SCH (21:57)
[2017-06-10] MEDS: ATENOLOL 25 MG TABLET PO SCH ×3 (01:05→20:32)
[2017-06-10] MEDS: GUAIFENESIN 200mg/10ml ORAL LIQUID PO SCH ×5 (01:46→18:35)
[2017-06-10] MEDS: ALBUTEROL/IPRATROPIUM 2.5mg-0.5mg/3ml NEB AEROSOL SCH ×6 (03:25→22:08)
[2017-06-10] MEDS: OMEPRAZOLE 20 MG CAPSULE PO SCH (05:33)
[2017-06-10] MEDS: BUDESONIDE INH.SOLN 0.5mg/2ml NEB AEROSOL SCH ×2 (07:36→22:08)
[2017-06-10] MEDS: LISINOPRIL 10 MG TABLET PO SCH (08:14)
[2017-06-10] MEDS: BuPROPion SR 150mg (12HR) TABLET PO SCH ×2 (08:19→20:32)
[2017-06-10] MEDS: PredniSONE 20 MG TABLET PO SCH (08:20)
[2017-06-10] MEDS: CITALOPRAM 40 MG TABLET PO SCH (08:20)
[2017-06-10] MEDS: TICAGRELOR 90 MG TABLET PO SCH ×2 (08:20→20:32)
[2017-06-10] MEDS: ASPIRIN *EC* 81 MG TABLET PO SCH (08:21)
[2017-06-10] MEDS: GABAPENTIN 300 MG CAPSULE PO SCH ×3 (08:21→20:34)
--- NOTE | 2017-06-10 08:39 | XRay Report ---
Indication: Chest pain Procedure: XR chest 1V: Encounter: Subsequent Comparison: Prior chest radiograph of the same day, chest radiograph 06/03/2017 Technique: A single portable AP chest radiograph was obtained. Findings: Lungs and airways: Mildly decreased lung volumes with associated basilar subsegmental atelectasis. No other focal/confluent airspace consolidation. Normal pulmonary vasculature. Pleura: No pleural effusion or pneumothorax. Heart and mediastinum: The cardiomediastinal silhouette and great vessels are within normal limits. Osseous structures and soft tissues: No acute osseous abnormality is seen. Impression: Mildly low lung volumes with associated basilar subsegmental atelectasis. The above report concurs with the preliminary report provided by virtual radiologic at 11:47 PM. .
--- NOTE | 2017-06-10 11:11 | Pulmonology Progress Note ---
Subjective Principal diagnosis: NSTEMI Interval history: Pt states he is doing ok, no SOB at this time, + cough with some sputum. Exam Vital signs: Temperature 98.1 F 06/10/17 08:16 Pulse Rate 77 06/10/17 08:16 Respiratory Rate 20 06/10/17 08:16 Blood Pressure 100/53 06/10/17 08:16 Pulse Oximetry 99 06/10/17 08:16 Inpatient Medications: Generic Name Dose Route Start Last Admin Trade Name Freq PRN Reason Stop Dose Admin Acetaminophen 325 - 650 mg 05/17/17 10:08 06/01/17 21:51 Tylenol PO 650 mg Q5H PRN Administration Discomfort Hydrocodone Bitart/Acetaminophen 1 tab 05/17/17 10:14 06/06/17 05:37 [place] 7.5/325 PO 1 tab Q6H PRN Administration Pain Al Hydroxide/Mg Hydroxide 30 ml 05/28/17 09:24 Maalox Plus PO Q3H PRN Indigestion Albuterol/Ipratropium 3 ml 05/17/17 10:11 Duoneb AEROSOL RTQID PRN Albuterol/Ipratropium 3 ml 05/21/17 15:15 06/10/17 07:36 Duoneb AEROSOL 3 ml Q4H KSENIA Administration Aspirin 81 mg 05/28/17 09:24 06/10/17 08:21 Ecotrin PO 81 mg DAILY KSENIA Administration Atenolol 25 mg 05/29/17 09:00 06/10/17 08:13 Tenormin PO Not Given BID KSENIA Atorvastatin Calcium 80 mg 05/28/17 21:00 06/09/17 21:57 Lipitor PO 80 mg HS KSENIA Administration Bisacodyl 10 mg 05/27/17 15:11 Dulcolax RECTALLY DAILY PRN Constipation Bisacodyl 5 - 10 mg 05/28/17 09:24 Dulcolax PO DAILY PRN Constipation Budesonide 0.5 mg 05/17/17 19:00 06/10/17 07:36 Pulmicort Inhalation AEROSOL 0.5 mg RTBID KSENIA Administration Bupropion HCl 150 mg 05/17/17 21:00 06/10/17 08:19 Wellbutrin Sr PO 150 mg BID KSENIA Administration Citalopram Hydrobromide 40 mg 05/18/17 09:00 06/10/17 08:20 Celexa PO 40 mg DAILY KSENIA Administration Gabapentin 300 mg 05/17/17 15:00 06/10/17 08:21 Neurontin PO 300 mg TID KSENIA Administration Glucose 37.5 gm 05/17/17 10:12 Glutose 15 PO PRN PRN Hypoglycemia Guaifenesin 400 mg 05/29/17 12:00 06/10/17 05:33 Robitussin Liq PO Not Given Q6H KSENIA Haloperidol 1 mg 06/03/17 20:30 Haldol PO Q4H PRN Insulin Aspart 2 - 14 unit 05/21/17 11:43 06/09/17 14:51 Novolog SQ 10 unit SS PRN Administration Hyperglycemia Protocol Insulin Glargine 30 unit 06/03/17 21:00 06/09/17 21:56 Lantus SQ 30 unit HS KSENIA Administration Lidocaine HCl 15 ml 06/08/17 18:06 Xylocaine Viscous 2% PO Q6HR PRN Lisinopril 10 mg 06/05/17 09:00 06/10/17 08:14 Prinivil PO Not Given DAILY [facility] Lorazepam 0.5 - 1 mg 05/28/17 09:24 06/02/17 13:52 Ativan PO 0.5 mg Q4H PRN Administration Anxiety Magnesium Hydroxide 30 ml 05/28/17 09:24 Mom PO DAILY PRN Constipation Nitroglycerin 0.4 mg 05/31/17 23:49 06/02/17 08:11 Nitrostat SL 0.4 mg Q5M PRN Administration Chest pain Nystatin 5 ml 06/03/17 21:00 06/09/17 21:57 Mycostatin PO 06/13/17 20:59 5 ml QID KSENIA Administration Omeprazole 40 mg 05/18/17 06:30 06/10/17 05:33 Prilosec PO 40 mg ACB KSENIA Administration Ondansetron HCl 4 mg 05/28/17 09:24 Zofran IVP Q6H PRN Nausea &/or vomiting Polyethylene Glycol 17 gm 06/03/17 09:00 06/09/17 08:28 Miralax PO Not Given DAILY [facility] Prednisone 40 mg 06/06/17 08:00 06/10/17 08:20 Deltasone 20 Mg PO 40 mg WB KSENIA Administration Sodium Chloride 10 - 80 ml 05/17/17 05:20 06/05/17 11:42 Iv Flush IVF 20 ml PRN PRN Administration Flushing Sodium Chloride 1 spray 05/19/17 11:42 05/19/17 16:37 [place] Nasal Moisturizing [place] EA NOSTRIL 1 spray PRN PRN Administration Congestion Sodium Chloride 500 ml 05/25/17 21:40 05/25/17 21:52 Normal Saline IV 500 ml PRN PRN Administration Throat Lozenges 3 spray 06/08/17 22:18 06/08/17 23:11 Chloraseptic [place] PO 3 spray Q2H PRN Administration Ticagrelor 90 mg 05/28/17 21:01 06/10/17 08:20 Brilinta PO 90 mg Q12H KSENIA Administration Discontinued Medications Generic Name Dose Route Start Last Admin Trade Name Freq PRN Reason Stop Dose Admin Acetaminophen 650 mg 05/21/17 15:10 Tylenol Supp [place] Q5H PRN Pain Acetaminophen 325 - 650 mg 05/28/17 09:24 Tylenol PO Q5H PRN Pain Hydrocodone Bitart/Acetaminophen 1 tab 05/17/17 21:00 05/31/17 08:42 [place] 7.5/325 PO 1 tab BID KSENIA Administration Hydrocodone Bitart/Acetaminophen 1 - 2 tab 05/28/17 09:24 [place] 5/325 PO Q5H PRN Pain Acetazolamide 500 mg 05/19/17 10:51 05/19/17 11:25 Diamox PO 05/19/17 10:52 500 mg O ONE Administration Adenosine 12 mg 05/21/17 09:17 05/21/17 08:50 Adenocard IVP 05/21/17 09:18 12 mg O ONE Administration Adenosine 6 mg 05/21/17 09:18 05/21/17 09:23 Adenocard IVP 05/21/17 09:19 6 mg O ONE Administration Albuterol/Ipratropium 6 ml 05/17/17 05:19 05/17/17 05:33 Duoneb AEROSOL 05/17/17 05:20 6 ml O ONE Administration Albuterol/Ipratropium 3 ml 05/17/17 11:00 05/21/17 18:22 Duoneb AEROSOL Not Given RTQID [facility] Amlodipine Besylate 10 mg 05/24/17 13:46 06/04/17 09:44 Norvasc PO 10 mg DAILY [facility] Administration Amlodipine Besylate 5 mg 06/04/17 11:41 06/06/17 10:38 Norvasc PO 5 mg DAILY [facility] Administration Aspirin 81 mg 05/18/17 09:00 05/23/17 08:26 Asa PO Not Given DAILY [facility] Aspirin 81 mg 05/22/17 16:00 05/31/17 08:42 Asa GT 81 mg DAILY [facility] Administration Atenolol 25 mg 05/18/17 09:00 05/24/17 08:58 Tenormin PO 25 mg DAILY [facility] Administration Atenolol 50 mg 05/25/17 09:00 05/28/17 12:30 Tenormin PO Not Given DAILY [facility] Atenolol 25 mg 05/24/17 09:40 05/24/17 11:09 Tenormin PO 05/24/17 09:41 25 mg O ONE Administration Atropine Sulfate 0.5 mg 05/28/17 09:24 Atropine IVP Q5M PRN Bradycardia Benzocaine 1 lozenge 05/20/17 18:54 Cepacol Sore Throat Lozenge MM Q2HR PRN Sore throat Bisacodyl 10 mg 05/28/17 09:24 Dulcolax RECTALLY DAILY PRN Constipation Bivalirudin 250 mg 05/24/17 14:15 Angiomax IV NOW [facility] Clonidine HCl 0.1 mg 05/22/17 09:00 06/05/17 09:05 Catapres-Tts 1 TD Not Given Q7D@0900 [facility] Clonidine HCl 1 removal 05/29/17 08:59 06/05/17 09:05 Catapres Patch Removal TD 1 removal Q7D [facility] Administration Enoxaparin Sodium 1 each 05/18/17 10:47 05/18/17 12:54 Pharmacy Consult - Lovenox MC 05/18/17 10:48 1 each O ONE Administration Enoxaparin Sodium 50 mg 05/18/17 11:45 05/20/17 08:37 Lovenox SQ 50 mg DAILY [facility] Administration Enoxaparin Sodium 142 mg 05/27/17 17:00 05/28/17 09:34 Lovenox SQ 142 mg DAILY [facility] Administration Furosemide 20 mg 05/18/17 09:00 05/20/17 08:37 Lasix PO 20 mg DAILY [facility] Administration Furosemide 40 mg 05/21/17 09:37 05/21/17 09:45 Lasix IVP 05/21/17 09:38 40 mg ONCE ONE Administration Furosemide 20 mg 05/23/17 21:00 05/24/17 08:59 Lasix IVP 20 mg Q12HR KS[place]IA Administration Furosemide 20 mg 05/24/17 17:00 05/27/17 09:31 Lasix IVP 20 mg Q8HR [facility] Administration Furosemide 20 mg 05/27/17 21:00 05/29/17 08:09 Lasix IVP 20 mg Q12H [facility] Administration Furosemide 20 mg 05/29/17 09:00 Lasix IVP DAILY [facility] Guaifenesin 1,200 mg 05/18/17 09:00 05/29/17 08:14 Mucinex La PO Not Given BID KSENIA Haloperidol Decanoate 1 mg 06/01/17 17:43 06/02/17 17:00 Haldol Liquid GT 1 mg Q4H PRN Administration Heparin Sodium (Beef Lung) 5,000 unit 05/21/17 09:23 05/21/17 10:07 Heparin Bolus IVP 05/21/17 09:24 5,000 unit O ONE Administration Heparin Sodium (Beef Lung) 3,000 unit 05/21/17 17:45 05/21/17 17:53 Heparin Bolus IVP 05/21/17 17:46 3,000 unit O ONE Administration Heparin Sodium (Beef Lung) 3,000 unit 05/22/17 03:37 05/22/17 03:46 Heparin Bolus IVP 05/22/17 03:38 3,000 unit O ONE Administration Heparin Sodium (Porcine) 1 each 05/21/17 09:08 Pharmacy Consult - Heparin MC 05/21/17 09:09 ONE TIME ONE Hydralazine HCl 5 mg 05/22/17 08:47 05/22/17 10:09 Apresoline IVP 5 mg Q6H PRN Administration Hypertension Hydralazine HCl 10 mg 05/22/17 15:01 05/28/17 06:06 Apresoline IVP 10 mg Q4H PRN Administration Hypertension Sodium Chloride 1,000 mls @ 999.9 mls/hr 05/17/17 05:44 05/17/17 11:20 Normal Saline IV 05/17/17 06:43 Infused .Q1H ONE Infusion Sodium Chloride 1,000 mls @ 75 mls/hr 05/17/17 10:08 05/19/17 11:19 Normal Saline IV Infused .[id number] KSENIA Infusion Ceftriaxone Sodium 2 gm/ 100 mls @ 200 mls/hr 05/18/17 01:15 05/18/17 01:50 Sodium Chloride IV Infused Q24H KSENIA Infusion Ceftriaxone Sodium 2 gm/ 50 mls @ 100 mls/hr 05/18/17 21:00 05/20/17 21:55 Sodium Chloride IV Infused Q24H KSENIA Infusion Heparin Sodium (Porcine) 20,000 unit in 500 mls @ 44 mls/hr 05/21/17 09:30 13:17 Heparin Drip IV Infused .[id number] KSENIA Titration Protocol Dexmedetomidine HCl 200 mcg/ 52 mls @ 6.87 mls/hr 05/21/17 09:52 05/21/17 20: 00 Sodium Chloride IV 05/21/17 20:29 0 mcg/kg/hr .Q7H35M PRN 0 mls/hr Protocol Titration 0.2 MCG/KG/HR Propofol 1,000 mg in 100 mls @ 3.969 mls/hr 05/21/17 10:39 05/21/17 14:28 Diprivan IV 0 mcg/kg/min .Q24H PRN 0 mls/hr Protocol Infusion 5 MCG/KG/MIN Fentanyl 1,000 mcg/ Sodium 100 mls @ 0 mls/hr 05/21/17 13:02 05/27/17 14:45 Chloride IV Infused .Q0M PRN Titration Protocol Per Protocol Sodium Chloride 250 mls @ 999.9 mls/hr 05/21/17 13:15 05/21/17 14:28 Normal Saline IV 05/21/17 13:29 Infused .Q15M KSENIA Infusion Cefepime HCl 1 gm/ Sodium 50 mls @ 100 mls/hr 05/21/17 15:30 05/29/17 10:46 Chloride IV Infused Q6H [facility] Infusion Levofloxacin/Dextrose 750 mg in 150 mls @ 100 mls/hr 05/21/17 16:00 05/28/17 17:15 Levaquin Premix IV Infused Q24H [facility] Infusion Vancomycin HCl 1,500 mg/ 500 mls @ 250 mls/hr 05/21/17 18:00 05/24/17 12:15 Sodium Chloride IV Infused Q8H KS[facility] Infusion Dexmedetomidine HCl 1,000 mcg/ 260 mls @ 6.87 mls/hr 05/21/17 20:30 05/27/17 14:45 Sodium Chloride IV 05/27/17 14:45 Infused .Q24H PRN Titration Protocol 0.2 MCG/KG/HR Potassium Chloride 10 meq in 100 mls @ 100 mls/hr 05/23/17 09:45 05/23/17 17: 34 Potassium Chloride Premix IV 05/23/17 13:44 Infused Q1H KSENIA Infusion Heparin Sodium (Porcine) 20,000 unit in 500 mls @ 45 mls/hr 05/23/17 16:00 06:16 Heparin Drip IV Not Given .Q11H7M KSENIA Protocol Potassium Chloride 10 meq in 100 mls @ 100 mls/hr 05/24/17 09:45 05/24/17 15: 56 Potassium Chloride Premix IV 05/24/17 13:44 Not Given Q1H KSENIA Potassium Chloride 10 meq/ 105 mls @ 105 mls/hr 05/24/17 11:45 05/24/17 17:00 Sodium Chloride IV 05/24/17 15:44 Infused Q1H KS[facility] Infusion Bivalirudin 250 mg/ Sodium 500 mls @ 43.2 mls/hr 05/24/17 15:15 05/27/17 17: 34 Chloride IV Not Given .[id number] KSENIA Sodium Chloride 1,000 mls @ 75 mls/hr 05/28/17 07:45 05/28/17 14:00 Normal Saline IV Infused .[id number] KS[facility]IA Infusion Sodium Chloride 1,000 mls @ 500 mls/hr 05/30/17 10:14 05/30/17 10:41 Normal Saline IV 05/30/17 12:13 500 mls/hr .Q2H ONE Administration Sodium Chloride 1,000 mls @ 60 mls/hr 05/30/17 17:00 05/31/17 06:00 Normal Saline IV 05/31/17 09:39 60 mls/hr .[id number] KSENIA Infusion Insulin Aspart 1 - 5 unit 05/17/17 10:12 05/18/17 06:06 Novolog SQ 2 unit SS PRN Administration Hyperglycemia Protocol Insulin Aspart 2 - 8 unit 05/18/17 08:22 05/21/17 07:30 Novolog SQ 3 unit SS PRN Administration Hyperglycemia Protocol Insulin Aspart 15 unit 05/20/17 10:32 05/20/17 10:36 Novolog SQ 05/20/17 10:33 15 unit ONE TIME ONE Administration Insulin Aspart 10 unit 05/26/17 12:00 05/26/17 13:54 Novolog SQ Not Given Q6H KSENIA Insulin Aspart 10 unit 05/26/17 15:00 05/27/17 21:06 Novolog SQ Not Given 0300,0900,1500,2100 [facility] Insulin Aspart 10 unit 05/28/17 15:00 Novolog SQ Q6HR KSENIA Insulin Aspart 10 unit 05/28/17 18:00 05/31/17 06:11 Novolog SQ 10 unit Q6H KSENIA Administration Insulin Aspart 12 unit 05/31/17 08:41 06/03/17 19:14 Novolog SQ Not Given Q6H KSENIA Insulin Aspart 15 unit 06/01/17 15:00 06/02/17 10:37 Novolog SQ Not Given Q6H KSENIA Insulin Aspart 18 unit 06/02/17 09:58 06/03/17 17:37 Novolog SQ 18 unit Q6H KS[place]IA Administration Insulin Glargine 10 unit 05/21/17 21:00 05/21/17 20:14 Lantus SQ 10 unit HS KSENIA Administration Insulin Glargine 20 unit 05/22/17 21:00 05/22/17 20:14 Lantus SQ 20 unit HS KSENIA Administration Insulin Glargine 40 unit 05/23/17 21:00 05/30/17 21:34 Lantus SQ 40 unit HS KSENIA Administration Insulin Glargine 50 unit 05/31/17 08:41 05/31/17 21:06 Lantus SQ 50 unit HS KSENIA Administration Insulin Glargine 60 unit 06/01/17 21:00 06/02/17 20:23 Lantus SQ 60 unit HS KSENIA Administration Labetalol HCl 10 mg 05/21/17 20:40 05/22/17 06:05 Trandate IVP 10 mg Q4H PRN Administration INCREASED blood pressure Lactulose 20 gm 06/02/17 10:00 06/02/17 11:09 Lactulose PO 06/02/17 10:01 20 gm O ONE Administration Lisinopril 10 mg 05/24/17 16:15 05/31/17 08:42 Prinivil PO 10 mg DAILY KS[facility] Administration Lisinopril 10 mg 05/31/17 15:18 05/31/17 15:43 Prinivil PO 05/31/17 15:19 10 mg O ONE Administration Lisinopril 20 mg 06/01/17 09:00 06/04/17 09:45 Prinivil PO 20 mg DAILY [facility] Administration Lorazepam 1 mg 05/17/17 06:16 05/17/17 06:56 Ativan PO 05/17/17 06:17 1 mg O ONE Administration Lorazepam 0.5 mg 05/17/17 10:13 05/24/17 15:55 Ativan Inj IVP 0.5 mg Q6H PRN Administration Lorazepam 1 mg 05/24/17 19:46 05/31/17 01:43 Ativan Inj IVP 1 mg Q2H PRN Administration Agitation/Air hunger/Pain Lorazepam 0.5 - 1 mg 05/28/17 09:24 Ativan Inj IVP Q4H PRN Anxiety Magnesium Hydroxide 30 ml 05/26/17 12:41 05/26/17 13:53 Mom GT 05/26/17 12:42 30 ml O ONE Administration Menthol 1 lozenge 05/18/17 08:19 Ricola Sf MM PRN PRN Cough Metformin HCl 500 mg 05/17/17 17:30 05/18/17 10:00 Glucophage PO Not Given BIDWM KSENIA Metformin HCl 500 mg 05/19/17 09:00 05/21/17 10:52 Glucophage PO Not Given BIDWM KS[place]IA Methylprednisolone Sodium Succinate 125 mg 05/17/17 06:26 05/17/17 06:53 Solu-Medrol IM 05/17/17 06:27 125 mg O ONE Administration Methylprednisolone Sodium Succinate 125 mg 05/17/17 15:00 05/20/17 08:37 Solu-Medrol IVP 125 mg Q6HR KSENIA Administration Methylprednisolone Sodium Succinate 80 mg 05/20/17 15:00 05/24/17 08:57 Solu-Medrol IVP 80 mg Q6HR KS[place]IA Administration Methylprednisolone Sodium Succinate 80 mg 05/24/17 17:00 05/26/17 08:23 Solu-Medrol IVP 80 mg Q8HR KS[place] Administration Methylprednisolone Sodium Succinate 80 mg 05/26/17 21:00 05/29/17 08:15 Solu-Medrol IVP 80 mg Q12HR KS[place] Administration Methylprednisolone Sodium Succinate 60 mg 05/29/17 21:00 06/01/17 21:57 Solu-Medrol IVP 06/02/17 04:00 60 mg Q12HR KS[place]IA Administration Metoclopramide HCl 5 mg 05/23/17 17:30 05/30/17 10:42 Reglan GT 5 mg Q6H KSENIA Administration Metoclopramide HCl 5 - 10 mg 05/28/17 09:24 Reglan IVP Q6H PRN Nausea &/or vomiting Metoclopramide HCl 5 mg 05/30/17 14:00 06/03/17 23:15 Reglan GT Not Given Q6H [facility] Metoprolol Tartrate 15 mg 05/21/17 09:18 05/21/17 09:05 Lopressor IVP 05/21/17 09:19 15 mg ONCE ONE Administration Metoprolol Tartrate 5 mg 05/28/17 10:01 05/28/17 10:00 Lopressor IVP 05/28/17 10:02 5 mg ONCE ONE Administration Morphine Sulfate 1 - 2 mg 05/17/17 10:08 05/24/17 17:56 Morphine Sulfate Inj IVP 2 mg Q2H PRN Administration Pain Morphine Sulfate 2 - 4 mg 05/28/17 09:24 05/28/17 10:17 Morphine Sulfate Inj IVP 05/29/17 09:23 4 mg Q2H PRN Administration Pain Morphine Sulfate 2 - 4 mg 05/28/17 09:24 06/02/17 08:19 Morphine Sulfate Inj IVP 2 mg Q5M PRN Administration Angina Neomycin/Polymyxin/Bacitracin 1 applic 06/06/17 13:00 06/06/17 13:10 Neosporin TP 06/06/17 13:01 1 applic O ONE Administration Nitroglycerin 0.4 mg 05/17/17 10:14 05/21/17 08:35 Nitrostat SL 0.4 mg Q5MIN3 PRN Administration CP Nitroglycerin 0.4 mg 05/28/17 09:24 Nitrostat SL Q5M PRN Angina --Pom--(Itraconazole 200 mg 05/17/17 21:00 05/29/17 09:39 [Itraconazole] 200 PO Not Given Mg) BID KSENIA Ondansetron HCl 4 mg 05/17/17 10:08 05/19/17 02:45 Zofran IVP 4 mg Q6H PRN Administration Nausea &/or vomiting Oseltamivir Phosphate 75 mg 05/29/17 21:00 06/03/17 09:27 Tamiflu 06/03/17 09:01 75 mg BID KSENIA Administration Pantoprazole Sodium 40 mg 05/22/17 09:00 05/31/17 08:44 Protonix Iv IVP 40 mg DAILY KS[facility]IA Administration Pharmacy Consult 1 each 05/17/17 10:32 Pharmacy Consult - Fall Risk XX 05/17/17 10:33 ONE TIME ONE Pharmacy Consult 1 each 05/27/17 10:17 Pharmacy Consult - Fall Risk XX 05/27/17 10:18 ONE TIME ONE Pharmacy Consult 1 each 06/05/17 10:03 Pharmacy Consult - Fall Risk XX 06/05/17 10:04 ONE TIME ONE Potassium Chloride 40 meq 05/24/17 18:10 05/26/17 06:13 Kcl Oral Liq 20 Meq/15 Ml PO Not Given BIDWM KSENIA Potassium Chloride 40 meq 05/25/17 13:00 05/26/17 08:22 Kcl Oral Liq 20 Meq/15 Ml PO 40 meq QID KSENIA Administration Potassium Chloride 40 meq 05/26/17 12:00 05/27/17 12:04 Kcl Oral Liq 20 Meq/15 Ml PO 40 meq TIDWM KSENIA Administration Potassium Chloride 40 meq 05/27/17 17:30 05/29/17 07:59 Kcl Oral Liq 20 Meq/15 Ml PO 40 meq BIDWM KSENIA Administration Potassium Chloride 40 meq 05/29/17 09:00 05/30/17 08:42 Kcl Oral Liq 20 Meq/15 Ml PO 40 meq DAILY [facility] Administration Prednisone 60 mg 06/02/17 08:00 06/03/17 09:20 Deltasone 20 Mg PO 60 mg WB KSENIA Administration Prednisone 50 mg 06/03/17 11:15 06/05/17 09:02 Deltasone 50 Mg PO 50 mg WB KSENIA Administration Promethazine HCl 12.5 - 25 mg 05/28/17 09:24 Phenergan Inj IVP Q6HR PRN Nausea &/or vomiting Simvastatin 20 mg 05/17/17 21:00 05/27/17 20:36 Zocor PO Not Given HS KSENIA Vancomycin HCl 1 each 05/21/17 15:19 05/21/17 15:53 Pharmacy Consult - Vancomycin 05/21/17 15:20 1 each O ONE Administration - Constitutional no acute distress, morbidly obese - Routine HEENT Exam Head: Present: normocephalic, atraumatic Eye: Present: EOMI, PERRL ENT: Present: mucous membranes moist - Routine Neck Exam Present: supple, full ROM, trachea midline - Routine Respiratory Exam Present: CTA bilaterally. Absent: accessory muscle use, patient mechanically ventilated - Routine Cardiovascular Exam Present: RRR, S1, S2, no murmur - Routine Abdominal Exam Present: soft, normoactive bowel sounds - Routine Extremities Exam Present: edema, non tender, full ROM - Routine Back/Spine/Pelvis Exam Back/Spine: Present: full ROM - Routine Skin Exam Present: intact - Routine Neurological Exam Present: alert, CN II-XII intact - Routine Psychiatric Exam Present: normal affect, normal thought process - Urinary Catheter Management Urethral Cath placed during this visit: yes, but has since been removed by the nurse Insertion date: 05/21/17 Removal date: 06/06/17 Removal time: 10:45 Results - Laboratory Findings Laboratory: Laboratory Results - last 48 hr 06/08/17 06/08/17 06/09/17 14:30 21:02 05:02 WBC 9.5 RBC 3.50 L Hgb 10.6 L Hct 34.0 L MCV 97.1 MCH 30.3 MCHC 31.2 RDW Std Deviation 45.1 Plt Count 54 L MPV 13.7 H Immature Gran % (Auto) 1.2 H Neut % (Auto) 68.0 H Lymph % (Auto) 23.1 [place] % (Auto) 6.1 Eos % (Auto) 1.5 Baso % (Auto) 0.1 Neut # (Auto) 6.5 Lymph # (Auto) 2.2 [place] # (Auto) 0.6 Eos # (Auto) 0.1 Baso # (Auto) 0.0 Abs Immat Gran (auto) 0.11 H Turbidity Sodium Potassium Chloride Carbon Dioxide Anion Gap BUN Creatinine GFR Calculation BUN/Creatinine Ratio Glucose Glucometer 308 179 Calculated Osmolality Calcium Icterus Index Specimen Hemolysis 06/09/17 06/09/17 06/09/17 05:02 05:43 10:50 WBC RBC Hgb Hct MCV MCH MCHC RDW Std Deviation Plt Count MPV Immature Gran % (Auto) Neut % (Auto) Lymph % (Auto) [place] % (Auto) Eos % (Auto) Baso % (Auto) Neut # (Auto) Lymph # (Auto) [place] # (Auto) Eos # (Auto) Baso # (Auto) Abs Immat Gran (auto) Turbidity < 20 Sodium 142 Potassium 4.0 Chloride 102 Carbon Dioxide 32 H Anion Gap 8 BUN 28.0 H Creatinine 0.7 L GFR Calculation 114 BUN/Creatinine Ratio 40 H Glucose 91 Glucometer 92 156 Calculated Osmolality 279 Calcium 9.3 Icterus Index < 2 Specimen Hemolysis < 15 06/09/17 06/09/17 06/10/17 14:13 21:49 05:31 WBC RBC Hgb Hct MCV MCH MCHC RDW Std Deviation Plt Count MPV Immature Gran % (Auto) Neut % (Auto) Lymph % (Auto) [place] % (Auto) Eos % (Auto) Baso % (Auto) Neut # (Auto) Lymph # (Auto) [place] # (Auto) Eos # (Auto) Baso # (Auto) Abs Immat Gran (auto) Turbidity Sodium Potassium Chloride Carbon Dioxide Anion Gap BUN Creatinine GFR Calculation BUN/Creatinine Ratio Glucose Glucometer 305 102 106 Calculated Osmolality Calcium Icterus Index Specimen Hemolysis Assessment and Plan - Assessment and Plan Acute on Chronic Hypoxic Hypercapnic Respiratory Failure LLL mass 2.2 cm - plan OP biopsy COPD exacerbation Influenza B Chest Pain/Wide complex tachycardia s/p cardioversion CAD s/p stent ANGELLA/OHS Morbid Obesity Thrombocytopenia - resolved Plan: Pt currently on O2 at 5L per [place], home O2. sats 99%, wean to keep sats 90-95% as he has hypercapnic failure. Bipap at night, used a few hrs last noc 01/10. Would cont inhaled regimen with a/a, pulmicort and on prednisone 40mg, wean. - Time Spent With Patient Total time spent is greater than 50% in coordination of care (as documented) at patient's floor/unit and/or counseling patient: less than 15 minutes
[2017-06-10] MEDS: NYSTATIN 500,000 units/5 ml ORAL LIQUID PO SCH ×4 (11:20→20:47)
[2017-06-10] MEDS: POLYETHYL GLYCOL 3350 17gm PACKET PO SCH (11:20)
--- NOTE | 2017-06-10 14:50 | Progress Note ---
- Date 06/10/17 Subjective: Patient is seen this morning eating breakfast. His reports that they are hopeful to be going to [facility] for skilled services potentially today. Cough and breathing is better. Appetite is fine. He still complains of pain in his throat which he thinks is from the feeding tube being "pulled out." Objective Vital signs: Temperature 98.1 F 06/10/17 08:16 Pulse Rate 76 06/10/17 11:40 Respiratory Rate 18 06/10/17 12:02 Blood Pressure 106/51 06/10/17 11:40 Pulse Oximetry 97 06/10/17 12:02 Rhythm: Normal Sinus Rhythm Height/Weight/BMI: Height 1.85 m Weight 123.3 kg Body Mass Index 41.5 - Constitutional Present: no acute distress, well nourished, well developed, obese - Routine HEENT Exam Head: Present: normocephalic, atraumatic - Routine Respiratory Exam Present: CTA bilaterally. Absent: wheezes - Routine Cardiovascular Exam Present: RRR, no murmur - Routine Abdominal Exam Present: soft, non distended, non tender - Routine Extremities Exam Present: no edema, normal capillary refill - Routine Skin Exam Present: dry, warm - Routine Neurological Exam Present: alert, moving all extremities - Routine Lymphatic Exam Lymphatic: Absent: adenopathy - Routine Psychiatric Exam Present: normal affect, cooperative Results - Labs CBC & Chem 7: 06/09/17 05:02 06/09/17 05:02 Microbiology Results: Microbiology 05/25/17 15:49 Midline Blood Culture - Final No Growth After 5 Days 05/25/17 15:43 Port/Picc Blood Culture - Final No Growth After 5 Days 05/20/17 04:36 Midline Blood Culture - Final No Growth After 5 Days 05/20/17 04:36 Midline Blood Culture - Final No Growth After 5 Days 05/21/17 13:45 Sputum, Expectorated Gram Stain - Final 05/21/17 13:45 Sputum, Expectorated Sputum Culture - Final Yeast, not C. albicans Normal Respiratory Charly Assessment and Plan (1) Acute exacerbation of chronic obstructive airways disease Current visit: Yes Status: Acute (2) Acute and chronic respiratory failure with hypercapnia Current visit: Yes Status: Acute (3) NSTEMI (non-ST elevated myocardial infarction) Current visit: Yes Status: Acute Assessment and Plan: Assessment Acute on chronic respiratory failure with hypercapnia and hypoxia - baseline home oxygen at 5L; intubated 05/21-extubated on 05/27, now on Bipap/NC Leukocytosis-Resolved NSTEMI-peak troponin 3.09, diffuse T changes, s/p heart cath with 2 stents 05/28 COPD exacerbation Transaminitis Influenza A -completed Tamiflu treatment Hyperglycemia Alerted Mental Status Thrombocytopenia Constipation suspect orthostatic hypotension Thrush Resolved Bilateral lower lobe pneumonia Bacteremia Fever Hypokalemia Wide complex tachycardia s/p cardioversion Dehydration Chronic Medical: Cardiomyopathy-EF 30% by echo 05/21/17 Pulmonary nodule - Irregular 2.2cm left lower lobe pulmonary nodule Anemia, unspecified, stable Coronary Artery Disease Hypertension Sleep Apnea Diabetes Mellitus Type 2 - A1c on 04/17/17 was 6.4% GERD Osteoarthritis Peripheral neuropathy Fibromyalgia Depression Tobacco dependency Peripheral vascular disease Morbid obesity - BMI >40 Plan Sats 99% on 5L this am. Pt has been off O2 most of the afternoon and has stayed >90% on RA. Continues on p.o. prednisone taper per pulmonology. Continue Nystatin and viscous lidocaine for thrush Insulin doses decreased-- Continue corrective scale. Vital signs and labs are stable. Ready for dismissal. Awaiting insurance decision. Addendum hospitalist note: Seen and examined patient on same day as the above note. Agree with history, physical, assessment and plan. Comprehensive physical findings correlate to the above note. Subjective: less difficulty with his throat. Complaining of body wide weakness. Objective: patient is again sitting without any clothing on. No apparent distress. Lung sounds have very trace wheeze bilaterally. Abdomen is protuberance soft Assessment and plan: patient is at baseline with his oxygen need. Cardiac function and diabetes appear well-controlled. Still is not very mobile despite his ability to do so. I believe this is more depression and behavioral than anything else. He has had ample opportunity in hospital to work with physical therapy. Repeated encouragement of activity the patient. I believe the patient is medically eligible to discharge any time that he has adequate placement. Documented on Dragon speech to text. Efforts to correct speech recognition errors performed, but variation may exist - Physician Narrative Narrative: Date: 06/10/17 Time: 1440 Hospital Course Summary Disclaimer: The visit summary below is not to be considered part of the above Progress Note. Hospital Course: 05/17/17 Admission Admit to observation status under the care of Dr. Lopez. Sepsis work up initiated in ED. Patient meeting SIRS criteria based on tachycardia, tachypnea and reported fevers at home without obvious source. Initial lactate was 1.4 with repeat lactate decreased to 0.9. Blood cultures pending. WBC stable at 5.0. CXR revealed left basilar scarring without focal pneumonia. Respiratory panel was negative. Patient was given DuoNeb treatments and Solu-Medrol 125mg IV in ED. Will continue respiratory care with DuoNeb treatments QID and Q6H PRN as well as Solu -Medrol 125mg IV Q6H. History of diabetes with A1c on 04/17/17 at 6.4%. Continue home medications and monitor blood sugars closely given treatment with steroids. Sliding scale insulin as indicated for hyperglycemia. Patient was placed on BiPAP in ED with improvement. Continue BiPAP as indicated. Ativan as needed for anxiety and agitation while on BiPAP. Will monitor closely on telemetry with continuous pulse oximetry. Oxygen as needed to maintain SAO2 between 90-95%, weaning as able to baseline of 5L. SCDs for DVT prophylaxis. Given sudden onset of dyspnea, will obtain CT angio chest for further evaluation of PE - results pending. NS at 100cc/hr for hydration given decreased oral intake as on BiPAP. Monitor daily weight closely for signs of fluid overload. Recheck labs in AM to monitor blood counts, electrolytes and renal function. Patient wishes to maintain FULL CODE status. Upon discharge, patient's care will be returned to his PCP, Dr. Odom. 05/18/17 Don reports that his breathing is a little better today and is he is more alert. New cough with sputum production. 1 of the 2 blood cultures obtained on admission is POSITIVE for Streptococcus. Night telehospitalist was notified and Rocephin 2g IV Q24 hours was initiated for antimicrobial coverage. Given new cough, will try and obtain a sputum culture. Mucinex for mucolytic effect. Ricola for cough. Continue respiratory care including nebulized treatments. Continue to encourage BiPAP as indicated and supplemental oxygen to maintain SAO2 between 90 -95%. Wean oxygen to baseline of 5L as able. Given sudden onset of dyspnea, CT angio chest was obtained and revealed no PE but did note 2.2cm left lower lobe pulmonary nodule raising concern for primary lung malignancy and recommended further evaluation. Will discuss consideration of pulmonary consult for further evaluation. Continue Solu-Medrol 125mg IV Q6 hours. Anticipate initiation of tapering in near future. Blood sugars remain elevated, most likely steroid effect, ranging from 160's-> 200. Continue sliding scale insulin. Given recent CT with contrast, will hold metformin and restart 05/19/17. Continue NS at 75cc/hr for hydration. Monitor urinary output and daily weight closely for signs of fluid over load. Oral intake is good. Consider discontinuation of fluids this afternoon. Ativan as needed for anxiety and agitation while on BiPAP. Troponins continue to trend up slowing - 0.015, 0.017, 0.029, 0.045 and 0.048 this morning. Will recheck troponin at 1030 and continue to monitor closely on telemetry. Patient denies chest pain. SCDs for DVT prophylaxis. Recheck labs in AM to monitor blood counts, electrolytes and renal function. Discussed at length with patient and family the importance of smoking cessation. He admits to wanting to stop smoking and inquired about initiation of Chantix. Continue Wellbutrin for smoking cessation. With BC positive and starting IV antibiotics, will change admission status to inpatient. Anticipate greater than 2 midnights of care needed. 05/19/17 Continue with Rocephin for antimicrobial coverage. With lungs still very tight and congested, will continue with Solu-Medrol 125mg IV q 6 hours. Continue Neb treatments and acapella. Encourage use of BiPAP as much as able to help his chronic hypercapnea. Stressed with about the importance of him not smoking. She understand. Will consult with Dr Ashby for pulm evaluation. Will discontinue IVF. May restart metformin this evening. Sugars with elevation secondary to steroids. Did give Diamox 500mg x1 this am for fluid motivation and to help minimize contraction alkalosis. PT/OT to evaluate and initiate treatment tomorrow for his significant pulmonary debility. 05/20 Continue with Rocephin for antimicrobial coverage. One blood culture was positive with streptococcus Viridans, Repeat BC were drawn this morning. Scheduled breathing tx, IV solu-medrol, as well as oxygen and Bipap Appreciate Dr Ashby consultation. Likely require bronchoscopy for biopsy of lung mass. Continue to monitor BGM remain elevated. Metformin was resumed as well as sliding scale insulin. Encourage PT/OT for strengthening 05/21 Resp failure --> ABG shows resp acidosis and he was placed on BiPAP with improvement in color. Repeat ABG shows pH 7.12, pCO2 106, pO2 185. CXR ordered. BG 230. Chest pain --> EKG shows ST changes and widened QRS, poss a-flutter; troponin pending. Dr. Govea consulted. He's had 2 NTG but remains very hypertensive with SBP 220s. Pt failed to respond to adenosine, and subseqently was cardioverted with conversion to sinus tach. Rapid response activated and Dr. Ramírez was at bedside x20 min. Transferred to CCU, where pt was met by Dr. Govea for evaluation. Continue treatment for resp status including steroids and Rocephin. 05/22 Patient remains on a ventilator requiring continuous sedation. Oxygenation borderline on 40% FiO2-oxygen flow increased to 60% by pulmonary earlier today. Continue triple antibiotics (cefepime, Levaquin, vancomycin) pending sputum culture due to extensive pneumonia on CT/chest x-ray yesterday-not present on initial films. Peak troponin 3.09 with diffuse T-wave changes; discussed with Dr. Govea and will require cardiac catheterization in the future. Continue heparin drip. Blood pressure is uncontrolled-clonidine patch initiated earlier, IV hydralazine added as needed for systolic pressures above 180. OG placed-resume statin, SSRI, atenolol, and aspirin. Assess gastric residuals today-anticipate beginning tube feedings tomorrow. Adequate urine output, continue to monitor. Blood sugars remain elevated, off metformin at present. Increase basal insulin. 05/23 Patient remains on a ventilator requiring continuous sedation. Continue triple antibiotics (cefepime, Levaquin, vancomycin); suspect aspiration pneumonia-sputum culture normal charly. Extensive infiltrates on CT chest. Repeat chest x-ray in a.m. Fluid balance positive-roughly 5 L over several days, weight up-diuresis today. Potassium supplemented IV earlier today. Peak troponin 3.09 with diffuse T-wave changes; discussed with Dr. Govea and will require cardiac catheterization in the future. Continue heparin drip. Blood pressure remains elevated but improved from yesterday with addition of clonidine patch and resumption of atenolol per OG. IV hydralazine available as needed for systolic pressures above 180. OG placed 05/22-low volume gastric output overnight and tolerating medications per OG. Will initiate tube feedings with low glycemic formula at 20 mL per hour overnight. Nutrition consult. Blood sugars remain elevated, off metformin at present and on steroids. Increase basal insulin to 40 units anticipating further increase in blood sugar with initiation of tube feedings. 05/24 Remains ventilator dependent. Steroids decreased. Vancomycin discontinued, continue Levaquin and cefepime for probable aspiration pneumonia and Streptococcus viridans positive blood culture. Continue diuresis, blood pressures elevated-atenolol increased and lisinopril initiated to improve control. Tolerating tube feedings at low-volume, converted pulmonary formula with goal of 80 mL per hour. Platelet count dropping, heparin discontinued and bivalirudin initiated. 05/25 Tolerating spontaneous breathing trial, steroids decreased. Continues to require continuous sedation. Lisinopril increased to 20 mg to improve blood pressure control. Platelet count down to 100K; HIT Ab pending. Fevers overnight without evidence source, leukocytosis/left shift resolved improved. Lines to be cultured. 05/26 FiO2 titrated to 40%; diuresing well-continue same. Spontaneous breathing trial planned for the morning with possible extubation at that time. Cardiac status stable, no further tachyarrhythmias. Trend to improved blood pressures. Cardiac catheterization planned in the future. Remains on bivalirudin. Platelet count 86K today, HIT Ab pending. Tube feedings at goal, blood sugars significantly elevated-NovoLog scheduled every 6 hours and when necessary. Chest x-ray improved, remains on Levaquin and cefepime for probable aspiration pneumonia. Blood cultures drawn yesterday negative thus far. 05/27 Extubated this afternoon, OG discontinued in conjunction with extubation. CPAP initiated for respiratory support. Anticipate significant reduction in fluid volume off sedating medications and tube feedings--> Lasix dose decreased to twice daily administration. Platelet count stabilizing, HIT Ab negative. Intermittent fever, remains on antibiotics for possible aspiration pneumonia. Repeat blood cultures negative. 05/29 Extubated 05/27 Placed on CPAP with home equipment. Baseline 5L Currently tolerating NC, oxygen support as needed to maintain sats and mentation , pulm consulted and following CXR-stable Leukocytosis-likely 2/2 steroid effect, PCT negative, no fever x48 hours Cefepime and Levaquin currently. Vanc discontinued 05/24. Likely d/c abx today. Will consult ID for abx recs OT/PT/ST consults today. Continue tube feeds and meds via Dobhoff Monitor fluid status-hold evening dose of lasix Peak troponin 3.09 on 05/21/17 with diffuse T-wave changes; heart cath 05/28-now on ASA and Bivalirudin Monitor platelet count-currently WNL 05/30 Extubated 05/27, continue Bipap/NC as per pulm Weaning steroids CXR-improving Cefepime, Levaquin, Vanc discontinued Continue Tamiflu Failed speech therapy, continue to re-eval Continue tube feeds and meds via Dobhoff, feeds at 40ml/hr, goal of 80ml/hr Discontinue lasix, give 1L NS and re-eval fluid status Continue ASA and Bivalirudin per cardiology 05/31 Failed speech therapy, continue to re-eval Tube feedings and medications per Dobbhoff, goal 80 mL per hour tube feeding. Adjust insulin for hyperglycemia. 06/01 describes increased confusion/irritability-haloperidol initiated as needed. Converting to prednisone per Dobbhoff in a.m.; blood gas with mild hypoxia-FiO2 increased. Continue nutritional support per Dobbhoff; insulins again adjusted for persistent hyperglycemia. Chest pain described overnight, EKG unchanged. 06/02 Complaints of chest pain/dyspnea again this morning-resolved with position change. Intermittent confusion, haloperidol given twice overnight. Persistent hyperglycemia, scheduled short acting insulin adjusted further. Solu-Medrol discontinued, prednisone initiated per Dobbhoff this morning. Lactulose administered per Dobbhoff for ongoing constipation; MiraLAX added with recommendation the patient take it orally. 06/03 Completed Tamiflu course today Dobbhoff out-circumstances unclear at present-but will give patient a trial of oral intake before reconsidering tube replacement. Insulin doses decreased significantly given discontinuation of tube feedings. Monitor Accu-Cheks every 2 hours overnight tonight. Blood sugars improved earlier today with insulin's that were increased yesterday however have eliminated scheduled short-acting insulin in light of discontinuation of tube feedings and decrease NovoLog from 60 to 30 units. Continue corrective scale. Anticipate further reductions in insulin with reduced prednisone dose Bladder training initiated although do not believe patient will be ready to DC [place] in the immediate future. Lengthy discussion with family this evening; patient transferring back to CCU for close observation following Dobbhoff removal. 06/04 Decrease amlodipine and lisinopril. Check orthostatics. 06/05 Recommended he reconsider SNU. 06/06 Decreased lisinopril. Clonidine and amlodipine DC'd Ready for dismissal but has refused placement and home would not be safe. 06/07 Soft diet with ground meats with regular liquids per speech therapy. Insulin doses decreased significantly given discontinuation of tube feedings. Blood sugars down. Now eating more. Monitor. Continue corrective scale. Continue ASA and Bivalirudin per cardiology; also on beta jesenia and atorvastatin. Continue to work with PT/OT/Speech On usual doses of Wellbutrin and citalopram. Has Ativan and haloperidol available if needed for anxiety or delirium. Had bladder training. Rylan dismissed when patient intended to leave AMA. Decreased lisinopril. Clonidine and amlodipine DC'd Ready for dismissal. Now accepting he needs to go to SNU or IRU. Awaiting insurance decision. 06/08/17 continue Bipap/NC-5 L as per pulm. P.o. prednisone continues to be tapered by pulm Continues on Atenolol. Continue Nystatin for thrush. Sore throat may be due to sinus drainage- humidity added to O2 today. 06/09/17 On nasal cannula 5 L. chest x-ray shows minimal nasal atelectasis. Insulin doses decreased-- Continue corrective scale. Patient will have to do better with work with PT/OT/Speech Continue Nystatin and viscous lidocaine for thrush 06/10/17 Sats 99% on 5L this am. Pt has been off O2 most of the afternoon and has stayed >90% on RA. Continues on p.o. prednisone taper per pulmonology. Resume metformin. Adjust insulins as needed. Ready for dismissal. Awaiting insurance decision.
--- NOTE | 2017-06-10 14:56 | Cardiology Progress Note ---
<ValentineAndreina arreola M - Last Filed: 06/11/17 11:28> Subjective Principal diagnosis: NSTEMI Interval history: Howard is seen in follow up for NSTEMI and respiratory. He is up in the recliner, with his family at the bedside. He is hopeful to go to rehab in [place] where he resides. He denies chest pain, palpitations, or cardiac complaints. Exam Vital signs: Temperature 98.1 F 06/10/17 08:16 Pulse Rate 76 06/10/17 11:40 Respiratory Rate 18 06/10/17 12:02 Blood Pressure 106/51 06/10/17 11:40 Pulse Oximetry 97 06/10/17 12:02 Inpatient Medications: Generic Name Dose Route Start Last Admin Trade Name Freq PRN Reason Stop Dose Admin Acetaminophen 325 - 650 mg 05/17/17 10:08 06/01/17 21:51 Tylenol PO 650 mg Q5H PRN Administration Discomfort Hydrocodone Bitart/Acetaminophen 1 tab 05/17/17 10:14 06/06/17 05:37 [place] 7.5/325 PO 1 tab Q6H PRN Administration Pain Al Hydroxide/Mg Hydroxide 30 ml 05/28/17 09:24 Maalox Plus PO Q3H PRN Indigestion Albuterol/Ipratropium 3 ml 05/17/17 10:11 Duoneb AEROSOL RTQID PRN Albuterol/Ipratropium 3 ml 05/21/17 15:15 06/10/17 11:59 Duoneb AEROSOL 3 ml Q4H [facility] Administration Aspirin 81 mg 05/28/17 09:24 06/10/17 08:21 Ecotrin PO 81 mg DAILY [facility] Administration Atenolol 25 mg 05/29/17 09:00 06/10/17 08:13 Tenormin PO Not Given BID [facility] Atorvastatin Calcium 80 mg 05/28/17 21:00 06/09/17 21:57 Lipitor PO 80 mg HS [facility] Administration Bisacodyl 10 mg 05/27/17 15:11 Dulcolax RECTALLY DAILY PRN Constipation Bisacodyl 5 - 10 mg 05/28/17 09:24 Dulcolax PO DAILY PRN Constipation Budesonide 0.5 mg 05/17/17 19:00 06/10/17 07:36 Pulmicort Inhalation AEROSOL 0.5 mg RTBID [facility] Administration Bupropion HCl 150 mg 05/17/17 21:00 06/10/17 08:19 Wellbutrin Sr PO 150 mg BID [facility] Administration Citalopram Hydrobromide 40 mg 05/18/17 09:00 06/10/17 08:20 Celexa PO 40 mg DAILY [facility] Administration Gabapentin 300 mg 05/17/17 15:00 06/10/17 08:21 Neurontin PO 300 mg TID [facility] Administration Glucose 37.5 gm 05/17/17 10:12 Glutose 15 PO PRN PRN Hypoglycemia Guaifenesin 400 mg 05/29/17 12:00 06/10/17 12:15 Robitussin Liq PO Not Given Q6H [facility] Haloperidol 1 mg 06/03/17 20:30 Haldol PO Q4H PRN Insulin Aspart 2 - 14 unit 05/21/17 11:43 06/09/17 14:51 Novolog SQ 10 unit SS PRN Administration Hyperglycemia Protocol Insulin Glargine 30 unit 06/03/17 21:00 06/09/17 21:56 Lantus SQ 30 unit HS [facility] Administration Lidocaine HCl 15 ml 06/08/17 18:06 Xylocaine Viscous 2% PO Q6HR PRN Lisinopril 10 mg 06/05/17 09:00 06/10/17 08:14 Prinivil PO Not Given DAILY [facility] Lorazepam 0.5 - 1 mg 05/28/17 09:24 06/02/17 13:52 Ativan PO 0.5 mg Q4H PRN Administration Anxiety Magnesium Hydroxide 30 ml 05/28/17 09:24 Mom PO DAILY PRN Constipation Nitroglycerin 0.4 mg 05/31/17 23:49 06/02/17 08:11 Nitrostat SL 0.4 mg Q5M PRN Administration Chest pain Nystatin 5 ml 06/03/17 21:00 06/10/17 11:20 Mycostatin PO 06/13/17 20:59 5 ml QID [facility] Administration Omeprazole 40 mg 05/18/17 06:30 06/10/17 05:33 Prilosec PO 40 mg ACB [facility] Administration Ondansetron HCl 4 mg 05/28/17 09:24 Zofran IVP Q6H PRN Nausea &/or vomiting Polyethylene Glycol 17 gm 06/03/17 09:00 06/10/17 11:20 Miralax PO Not Given DAILY [facility] Prednisone 30 mg 06/11/17 08:00 Deltasone 20 Mg PO WB [facility] Sodium Chloride 10 - 80 ml 05/17/17 05:20 06/05/17 11:42 Iv Flush IVF 20 ml PRN PRN Administration Flushing Sodium Chloride 1 spray 05/19/17 11:42 05/19/17 16:37 Deep Sea Nasal Moisturizing [place] EA NOSTRIL 1 spray PRN PRN Administration Congestion Sodium Chloride 500 ml 05/25/17 21:40 05/25/17 21:52 Normal Saline IV 500 ml PRN PRN Administration Throat Lozenges 3 spray 06/08/17 22:18 06/08/17 23:11 Chloraseptic [place] PO 3 spray Q2H PRN Administration Ticagrelor 90 mg 05/28/17 21:01 06/10/17 08:20 Brilinta PO 90 mg Q12H [facility] Administration Discontinued Medications Generic Name Dose Route Start Last Admin Trade Name Freq PRN Reason Stop Dose Admin Acetaminophen 650 mg 05/21/17 15:10 Tylenol Supp DC Q5H PRN Pain Acetaminophen 325 - 650 mg 05/28/17 09:24 Tylenol PO Q5H PRN Pain Hydrocodone Bitart/Acetaminophen 1 tab 05/17/17 21:00 05/31/17 08:42 [place] 7.5/325 PO 1 tab BID [facility] Administration Hydrocodone Bitart/Acetaminophen 1 - 2 tab 05/28/17 09:24 [place] 5/325 PO Q5H PRN Pain Acetazolamide 500 mg 05/19/17 10:51 05/19/17 11:25 Diamox PO 05/19/17 10:52 500 mg O ONE Administration Adenosine 12 mg 05/21/17 09:17 05/21/17 08:50 Adenocard IVP 05/21/17 09:18 12 mg O ONE Administration Adenosine 6 mg 05/21/17 09:18 05/21/17 09:23 Adenocard IVP 05/21/17 09:19 6 mg O ONE Administration Albuterol/Ipratropium 6 ml 05/17/17 05:19 05/17/17 05:33 Duoneb AEROSOL 05/17/17 05:20 6 ml O ONE Administration Albuterol/Ipratropium 3 ml 05/17/17 11:00 05/21/17 18:22 Duoneb AEROSOL Not Given RTQID [facility] Amlodipine Besylate 10 mg 05/24/17 13:46 06/04/17 09:44 Norvasc PO 10 mg DAILY [facility] Administration Amlodipine Besylate 5 mg 06/04/17 11:41 06/06/17 10:38 Norvasc PO 5 mg DAILY [facility] Administration Aspirin 81 mg 05/18/17 09:00 05/23/17 08:26 Asa PO Not Given DAILY [facility] Aspirin 81 mg 05/22/17 16:00 05/31/17 08:42 Asa GT 81 mg DAILY [facility] Administration Atenolol 25 mg 05/18/17 09:00 05/24/17 08:58 Tenormin PO 25 mg DAILY [facility] Administration Atenolol 50 mg 05/25/17 09:00 05/28/17 12:30 Tenormin PO Not Given DAILY [facility] Atenolol 25 mg 05/24/17 09:40 05/24/17 11:09 Tenormin PO 05/24/17 09:41 25 mg O ONE Administration Atropine Sulfate 0.5 mg 05/28/17 09:24 Atropine IVP Q5M PRN Bradycardia Benzocaine 1 lozenge 05/20/17 18:54 Cepacol Sore Throat Lozenge MM Q2HR PRN Sore throat Bisacodyl 10 mg 05/28/17 09:24 Dulcolax RECTALLY DAILY PRN Constipation Bivalirudin 250 mg 05/24/17 14:15 Angiomax IV NOW [facility] Clonidine HCl 0.1 mg 05/22/17 09:00 06/05/17 09:05 Catapres-Tts 1 TD Not Given Q7D@0900 [facility] Clonidine HCl 1 removal 05/29/17 08:59 06/05/17 09:05 Catapres Patch Removal TD 1 removal Q7D [facility] Administration Enoxaparin Sodium 1 each 05/18/17 10:47 05/18/17 12:54 Pharmacy Consult - Lovenox MC 05/18/17 10:48 1 each O ONE Administration Enoxaparin Sodium 50 mg 05/18/17 11:45 05/20/17 08:37 Lovenox SQ 50 mg DAILY [facility] Administration Enoxaparin Sodium 142 mg 05/27/17 17:00 05/28/17 09:34 Lovenox SQ 142 mg DAILY [facility] Administration Furosemide 20 mg 05/18/17 09:00 05/20/17 08:37 Lasix PO 20 mg DAILY [facility] Administration Furosemide 40 mg 05/21/17 09:37 05/21/17 09:45 Lasix IVP 05/21/17 09:38 40 mg ONCE ONE Administration Furosemide 20 mg 05/23/17 21:00 05/24/17 08:59 Lasix IVP 20 mg Q12HR [facility] Administration Furosemide 20 mg 05/24/17 17:00 05/27/17 09:31 Lasix IVP 20 mg Q8HR [facility] Administration Furosemide 20 mg 05/27/17 21:00 05/29/17 08:09 Lasix IVP 20 mg Q12H [facility] Administration Furosemide 20 mg 05/29/17 09:00 Lasix IVP DAILY [facility] Guaifenesin 1,200 mg 05/18/17 09:00 05/29/17 08:14 Mucinex La PO Not Given BID [facility] Haloperidol Decano[place] 1 mg 06/01/17 17:43 06/02/17 17:00 Haldol Liquid GT 1 mg Q4H PRN Administration Heparin Sodium (Beef Lung) 5,000 unit 05/21/17 09:23 05/21/17 10:07 Heparin Bolus IVP 05/21/17 09:24 5,000 unit O ONE Administration Heparin Sodium (Beef Lung) 3,000 unit 05/21/17 17:45 05/21/17 17:53 Heparin Bolus IVP 05/21/17 17:46 3,000 unit O ONE Administration Heparin Sodium (Beef Lung) 3,000 unit 05/22/17 03:37 05/22/17 03:46 Heparin Bolus IVP 05/22/17 03:38 3,000 unit O ONE Administration Heparin Sodium (Porcine) 1 each 05/21/17 09:08 Pharmacy Consult - Heparin MC 05/21/17 09:09 ONE TIME ONE Hydralazine HCl 5 mg 05/22/17 08:47 05/22/17 10:09 Apresoline IVP 5 mg Q6H PRN Administration Hypertension Hydralazine HCl 10 mg 05/22/17 15:01 05/28/17 06:06 Apresoline IVP 10 mg Q4H PRN Administration Hypertension Sodium Chloride 1,000 mls @ 999.9 mls/hr 05/17/17 05:44 05/17/17 11:20 Normal Saline IV 05/17/17 06:43 Infused .Q1H ONE Infusion Sodium Chloride 1,000 mls @ 75 mls/hr 05/17/17 10:08 05/19/17 11:19 Normal Saline IV Infused .[id number] [facility] Infusion Ceftriaxone Sodium 2 gm/ 100 mls @ 200 mls/hr 05/18/17 01:15 05/18/17 01:50 Sodium Chloride IV Infused Q24H [facility] Infusion Ceftriaxone Sodium 2 gm/ 50 mls @ 100 mls/hr 05/18/17 21:00 05/20/17 21:55 Sodium Chloride IV Infused Q24H [facility] Infusion Heparin Sodium (Porcine) 20,000 unit in 500 mls @ 44 mls/hr 05/21/17 09:30 13:17 Heparin Drip IV Infused .[id number] [facility] Titration Protocol Dexmedetomidine HCl 200 mcg/ 52 mls @ 6.87 mls/hr 05/21/17 09:52 05/21/17 20: 00 Sodium Chloride IV 05/21/17 20:29 0 mcg/kg/hr .Q7H35M PRN 0 mls/hr Protocol Titration 0.2 MCG/KG/HR Propofol 1,000 mg in 100 mls @ 3.969 mls/hr 05/21/17 10:39 05/21/17 14:28 Diprivan IV 0 mcg/kg/min .Q24H PRN 0 mls/hr Protocol Infusion 5 MCG/KG/MIN Fentanyl 1,000 mcg/ Sodium 100 mls @ 0 mls/hr 05/21/17 13:02 05/27/17 14:45 Chloride IV Infused .Q0M PRN Titration Protocol Per Protocol Sodium Chloride 250 mls @ 999.9 mls/hr 05/21/17 13:15 05/21/17 14:28 Normal Saline IV 05/21/17 13:29 Infused .Q15M [facility] Infusion Cefepime HCl 1 gm/ Sodium 50 mls @ 100 mls/hr 05/21/17 15:30 05/29/17 10:46 Chloride IV Infused Q6H [facility] Infusion Levofloxacin/Dextrose 750 mg in 150 mls @ 100 mls/hr 05/21/17 16:00 05/28/17 17:15 Levaquin Premix IV Infused Q24H [facility] Infusion Vancomycin HCl 1,500 mg/ 500 mls @ 250 mls/hr 05/21/17 18:00 05/24/17 12:15 Sodium Chloride IV Infused Q8H [facility] Infusion Dexmedetomidine HCl 1,000 mcg/ 260 mls @ 6.87 mls/hr 05/21/17 20:30 05/27/17 14:45 Sodium Chloride IV 05/27/17 14:45 Infused .Q24H PRN Titration Protocol 0.2 MCG/KG/HR Potassium Chloride 10 meq in 100 mls @ 100 mls/hr 05/23/17 09:45 05/23/17 17: 34 Potassium Chloride Premix IV 05/23/17 13:44 Infused Q1H [facility] Infusion Heparin Sodium (Porcine) 20,000 unit in 500 mls @ 45 mls/hr 05/23/17 16:00 06:16 Heparin Drip IV Not Given .Q11H7M [facility] Protocol Potassium Chloride 10 meq in 100 mls @ 100 mls/hr 05/24/17 09:45 05/24/17 15: 56 Potassium Chloride Premix IV 05/24/17 13:44 Not Given Q1H [facility] Potassium Chloride 10 meq/ 105 mls @ 105 mls/hr 05/24/17 11:45 05/24/17 17:00 Sodium Chloride IV 05/24/17 15:44 Infused Q1H [facility] Infusion Bivalirudin 250 mg/ Sodium 500 mls @ 43.2 mls/hr 05/24/17 15:15 05/27/17 17: 34 Chloride IV Not Given .[id number] [facility] Sodium Chloride 1,000 mls @ 75 mls/hr 05/28/17 07:45 05/28/17 14:00 Normal Saline IV Infused .[id number] [facility] Infusion Sodium Chloride 1,000 mls @ 500 mls/hr 05/30/17 10:14 05/30/17 10:41 Normal Saline IV 05/30/17 12:13 500 mls/hr .Q2H ONE Administration Sodium Chloride 1,000 mls @ 60 mls/hr 05/30/17 17:00 05/31/17 06:00 Normal Saline IV 05/31/17 09:39 60 mls/hr .[id number] [facility] Infusion Insulin Aspart 1 - 5 unit 05/17/17 10:12 05/18/17 06:06 Novolog SQ 2 unit SS PRN Administration Hyperglycemia Protocol Insulin Aspart 2 - 8 unit 05/18/17 08:22 05/21/17 07:30 Novolog SQ 3 unit SS PRN Administration Hyperglycemia Protocol Insulin Aspart 15 unit 05/20/17 10:32 05/20/17 10:36 Novolog SQ 05/20/17 10:33 15 unit ONE TIME ONE Administration Insulin Aspart 10 unit 05/26/17 12:00 05/26/17 13:54 Novolog SQ Not Given Q6H [facility] Insulin Aspart 10 unit 05/26/17 15:00 05/27/17 21:06 Novolog SQ Not Given 0300,0900,1500,2100 [facility] Insulin Aspart 10 unit 05/28/17 15:00 Novolog SQ Q6HR [facility] Insulin Aspart 10 unit 05/28/17 18:00 05/31/17 06:11 Novolog SQ 10 unit Q6H [facility] Administration Insulin Aspart 12 unit 05/31/17 08:41 06/03/17 19:14 Novolog SQ Not Given Q6H [facility] Insulin Aspart 15 unit 06/01/17 15:00 06/02/17 10:37 Novolog SQ Not Given Q6H [facility] Insulin Aspart 18 unit 06/02/17 09:58 06/03/17 17:37 Novolog SQ 18 unit Q6H [facility] Administration Insulin Glargine 10 unit 05/21/17 21:00 05/21/17 20:14 Lantus SQ 10 unit HS [facility] Administration Insulin Glargine 20 unit 05/22/17 21:00 05/22/17 20:14 Lantus SQ 20 unit HS [facility] Administration Insulin Glargine 40 unit 05/23/17 21:00 05/30/17 21:34 Lantus SQ 40 unit HS [facility] Administration Insulin Glargine 50 unit 05/31/17 08:41 05/31/17 21:06 Lantus SQ 50 unit HS [facility] Administration Insulin Glargine 60 unit 06/01/17 21:00 06/02/17 20:23 Lantus SQ 60 unit HS [facility] Administration Labetalol HCl 10 mg 05/21/17 20:40 05/22/17 06:05 Trandate IVP 10 mg Q4H PRN Administration INCREASED blood pressure Lactulose 20 gm 06/02/17 10:00 06/02/17 11:09 Lactulose PO 06/02/17 10:01 20 gm O ONE Administration Lisinopril 10 mg 05/24/17 16:15 05/31/17 08:42 Prinivil PO 10 mg DAILY [facility] Administration Lisinopril 10 mg 05/31/17 15:18 05/31/17 15:43 Prinivil PO 05/31/17 15:19 10 mg O ONE Administration Lisinopril 20 mg 06/01/17 09:00 06/04/17 09:45 Prinivil PO 20 mg DAILY [facility] Administration Lorazepam 1 mg 05/17/17 06:16 05/17/17 06:56 Ativan PO 05/17/17 06:17 1 mg O ONE Administration Lorazepam 0.5 mg 05/17/17 10:13 05/24/17 15:55 Ativan Inj IVP 0.5 mg Q6H PRN Administration Lorazepam 1 mg 05/24/17 19:46 05/31/17 01:43 Ativan Inj IVP 1 mg Q2H PRN Administration Agitation/Air hunger/Pain Lorazepam 0.5 - 1 mg 05/28/17 09:24 Ativan Inj IVP Q4H PRN Anxiety Magnesium Hydroxide 30 ml 05/26/17 12:41 05/26/17 13:53 Mom GT 05/26/17 12:42 30 ml O ONE Administration Menthol 1 lozenge 05/18/17 08:19 Ricola Sf MM PRN PRN Cough Metformin HCl 500 mg 05/17/17 17:30 05/18/17 10:00 Glucophage PO Not Given BIDWM [facility] Metformin HCl 500 mg 05/19/17 09:00 05/21/17 10:52 Glucophage PO Not Given BIDWM [facility] Methylprednisolone Sodium Succinate 125 mg 05/17/17 06:26 05/17/17 06:53 Solu-Medrol IM 05/17/17 06:27 125 mg O ONE Administration Methylprednisolone Sodium Succinate 125 mg 05/17/17 15:00 05/20/17 08:37 Solu-Medrol IVP 125 mg Q6HR [facility] Administration Methylprednisolone Sodium Succinate 80 mg 05/20/17 15:00 05/24/17 08:57 Solu-Medrol IVP 80 mg Q6HR [facility] Administration Methylprednisolone Sodium Succinate 80 mg 05/24/17 17:00 05/26/17 08:23 Solu-Medrol IVP 80 mg Q8HR [facility] Administration Methylprednisolone Sodium Succinate 80 mg 05/26/17 21:00 05/29/17 08:15 Solu-Medrol IVP 80 mg Q12HR [facility] Administration Methylprednisolone Sodium Succinate 60 mg 05/29/17 21:00 06/01/17 21:57 Solu-Medrol IVP 06/02/17 04:00 60 mg Q12HR [facility] Administration Metoclopramide HCl 5 mg 05/23/17 17:30 05/30/17 10:42 Reglan GT 5 mg Q6H [facility] Administration Metoclopramide HCl 5 - 10 mg 05/28/17 09:24 Reglan IVP Q6H PRN Nausea &/or vomiting Metoclopramide HCl 5 mg 05/30/17 14:00 06/03/17 23:15 Reglan GT Not Given Q6H [facility] Metoprolol Tartrate 15 mg 05/21/17 09:18 05/21/17 09:05 Lopressor IVP 05/21/17 09:19 15 mg ONCE ONE Administration Metoprolol Tartrate 5 mg 05/28/17 10:01 05/28/17 10:00 Lopressor IVP 05/28/17 10:02 5 mg ONCE ONE Administration Morphine Sulfate 1 - 2 mg 05/17/17 10:08 05/24/17 17:56 Morphine Sulfate Inj IVP 2 mg Q2H PRN Administration Pain Morphine Sulfate 2 - 4 mg 05/28/17 09:24 05/28/17 10:17 Morphine Sulfate Inj IVP 05/29/17 09:23 4 mg Q2H PRN Administration Pain Morphine Sulfate 2 - 4 mg 05/28/17 09:24 06/02/17 08:19 Morphine Sulfate Inj IVP 2 mg Q5M PRN Administration Angina Neomycin/Polymyxin/Bacitracin 1 applic 06/06/17 13:00 06/06/17 13:10 Neosporin TP 06/06/17 13:01 1 applic O ONE Administration Nitroglycerin 0.4 mg 05/17/17 10:14 05/21/17 08:35 Nitrostat SL 0.4 mg Q5MIN3 PRN Administration CP Nitroglycerin 0.4 mg 05/28/17 09:24 Nitrostat SL Q5M PRN Angina --Pom--(Itraconazole 200 mg 05/17/17 21:00 05/29/17 09:39 [Itraconazole] 200 PO Not Given Mg) BID [facility] Ondansetron HCl 4 mg 05/17/17 10:08 05/19/17 02:45 Zofran IVP 4 mg Q6H PRN Administration Nausea &/or vomiting Oseltamivir Phosphate 75 mg 05/29/17 21:00 06/03/17 09:27 Tamiflu 06/03/17 09:01 75 mg BID [facility] Administration Pantoprazole Sodium 40 mg 05/22/17 09:00 05/31/17 08:44 Protonix Iv IVP 40 mg DAILY [facility] Administration Pharmacy Consult 1 each 05/17/17 10:32 Pharmacy Consult - Fall Risk XX 05/17/17 10:33 ONE TIME ONE Pharmacy Consult 1 each 05/27/17 10:17 Pharmacy Consult - Fall Risk XX 05/27/17 10:18 ONE TIME ONE Pharmacy Consult 1 each 06/05/17 10:03 Pharmacy Consult - Fall Risk XX 06/05/17 10:04 ONE TIME ONE Potassium Chloride 40 meq 05/24/17 18:10 05/26/17 06:13 Kcl Oral Liq 20 Meq/15 Ml PO Not Given BIDWM [facility] Potassium Chloride 40 meq 05/25/17 13:00 05/26/17 08:22 Kcl Oral Liq 20 Meq/15 Ml PO 40 meq QID [facility] Administration Potassium Chloride 40 meq 05/26/17 12:00 05/27/17 12:04 Kcl Oral Liq 20 Meq/15 Ml PO 40 meq TIDWM [facility] Administration Potassium Chloride 40 meq 05/27/17 17:30 05/29/17 07:59 Kcl Oral Liq 20 Meq/15 Ml PO 40 meq BIDWM [facility] Administration Potassium Chloride 40 meq 05/29/17 09:00 05/30/17 08:42 Kcl Oral Liq 20 Meq/15 Ml PO 40 meq DAILY [facility] Administration Prednisone 60 mg 06/02/17 08:00 06/03/17 09:20 Deltasone 20 Mg PO 60 mg WB [facility] Administration Prednisone 50 mg 06/03/17 11:15 06/05/17 09:02 Deltasone 50 Mg PO 50 mg WB [facility] Administration Prednisone 40 mg 06/06/17 08:00 03/05/18 08:20 Deltasone 20 Mg PO 40 mg WB [facility] Administration Promethazine HCl 12.5 - 25 mg 05/28/17 09:24 Phenergan Inj IVP Q6HR PRN Nausea &/or vomiting Simvastatin 20 mg 05/17/17 21:00 05/27/17 20:36 Zocor PO Not Given [facility] Vancomycin HCl 1 each 05/21/17 15:19 05/21/17 15:53 Pharmacy Consult - Vancomycin 05/21/17 15:20 1 each O ONE Administration - Constitutional no acute distress, obese, cooperative - Routine HEENT Exam Head: Present: normocephalic ENT: Present: mucous membranes moist - Routine Neck Exam Absent: JVD, carotid bruit - Routine Chest/Breast/Axilla Exam Chest wall: Absent: tenderness - Routine Respiratory Exam Present: CTA bilaterally. Absent: rales, wheezes - Routine Cardiovascular Exam Present: RRR, no murmur - Routine Abdominal Exam Present: soft - Routine Extremities Exam Present: edema - Routine Skin Exam Present: intact, dry, warm - Routine Neurological Exam Present: alert, oriented X3 - Additional findings Additional findings: Acetaminophen (Tylenol) 325 - 650 mg PO Q5H PRN PRN Reason: Discomfort Last Admin: 06/01/17 21:51 Dose: 650 mg Hydrocodone Bitart/Acetaminophen ([place] 7.5/325) 1 tab PO Q6H PRN PRN Reason: Pain Last Admin: 06/06/17 05:37 Dose: 1 tab Al Hydroxide/Mg Hydroxide (Maalox Plus) 30 ml PO Q3H PRN PRN Reason: Indigestion Albuterol/Ipratropium (Duoneb) 3 ml AEROSOL RTQID PRN Albuterol/Ipratropium (Duoneb) 3 ml AEROSOL Q4H [facility] Last Admin: 06/10/17 11:59 Dose: 3 ml Aspirin (Ecotrin) 81 mg PO DAILY [facility] Last Admin: 06/10/17 08:21 Dose: 81 mg Atenolol (Tenormin) 25 mg PO BID [facility] Last Admin: 06/10/17 08:13 Dose: Not Given Atorvastatin Calcium (Lipitor) 80 mg PO HS [facility] Last Admin: 06/09/17 21:57 Dose: 80 mg Bisacodyl (Dulcolax) 10 mg RECTALLY DAILY PRN PRN Reason: Constipation Bisacodyl (Dulcolax) 5 - 10 mg PO DAILY PRN PRN Reason: Constipation Budesonide (Pulmicort Inhalation) 0.5 mg AEROSOL RTBID [facility] Last Admin: 06/10/17 07:36 Dose: 0.5 mg Bupropion HCl (Wellbutrin Sr) 150 mg PO BID [facility] Last Admin: 06/10/17 08:19 Dose: 150 mg Citalopram Hydrobromide (Celexa) 40 mg PO DAILY [facility] Last Admin: 06/10/17 08:20 Dose: 40 mg Gabapentin (Neurontin) 300 mg PO TID [facility] Last Admin: 06/10/17 08:21 Dose: 300 mg Glucose (Glutose 15) 37.5 gm PO PRN PRN PRN Reason: Hypoglycemia Guaifenesin (Robitussin Liq) 400 mg PO Q6H [facility] Last Admin: 06/10/17 12:15 Dose: Not Given Haloperidol (Haldol) 1 mg PO Q4H PRN Insulin Aspart (Novolog) 2 - 14 unit SQ SS PRN; Protocol PRN Reason: Hyperglycemia Last Admin: 06/09/17 14:51 Dose: 10 unit Insulin Glargine (Lantus) 30 unit SQ HS [facility] Last Admin: 06/09/17 21:56 Dose: 30 unit Lidocaine HCl (Xylocaine Viscous 2%) 15 ml PO Q6HR PRN Lisinopril (Prinivil) 10 mg PO DAILY [facility] Last Admin: 06/10/17 08:14 Dose: Not Given Lorazepam (Ativan) 0.5 - 1 mg PO Q4H PRN PRN Reason: Anxiety Last Admin: 06/02/17 13:52 Dose: 0.5 mg Magnesium Hydroxide (Mom) 30 ml PO DAILY PRN PRN Reason: Constipation Metformin HCl (Glucophage) 500 mg PO BIDWM [facility] Nitroglycerin (Nitrostat) 0.4 mg SL Q5M PRN PRN Reason: Chest pain Last Admin: 06/02/17 08:11 Dose: 0.4 mg Nystatin (Mycostatin) 5 ml PO QID [facility] Stop: 06/13/17 20:59 Last Admin: 06/10/17 11:20 Dose: 5 ml Omeprazole (Prilosec) 40 mg PO ACB [facility] Last Admin: 06/10/17 05:33 Dose: 40 mg Ondansetron HCl (Zofran) 4 mg IVP Q6H PRN PRN Reason: Nausea &/or vomiting Polyethylene Glycol (Miralax) 17 gm PO DAILY [facility] Last Admin: 06/10/17 11:20 Dose: Not Given Prednisone (Deltasone 20 Mg) 30 mg PO WB [facility] Sodium Chloride (Iv Flush) 10 - 80 ml IVF PRN PRN PRN Reason: Flushing Last Admin: 06/05/17 11:42 Dose: 20 ml Sodium Chloride (Deep Sea Nasal Moisturizing [place]) 1 spray EA NOSTRIL PRN PRN PRN Reason: Congestion Last Admin: 05/19/17 16:37 Dose: 1 spray Sodium Chloride (Normal Saline) 500 ml IV PRN PRN Last Admin: 05/25/17 21:52 Dose: 500 ml Throat Lozenges (Chloraseptic [place]) 3 spray PO Q2H PRN Last Admin: 06/08/17 23:11 Dose: 3 spray Ticagrelor (Brilinta) 90 mg PO Q12H [facility] Last Admin: 06/10/17 08:20 Dose: 90 mg - Urinary Catheter Management Urethral Cath placed during this visit: yes, but has since been removed by the nurse Insertion date: 05/21/17 Removal date: 06/06/17 Removal time: 10:45 Results 06/09/17 05:02 06/09/17 05:02 Intake and Output 06/09/17 06/10/17 06/10/17 22:59 06:59 14:59 Intake Total 640 / 640 120 / 120 Output Total 270 / 270 375 / 375 300 / 300 Balance -270 / -270 265 / 265 -180 / -180 Intake: Oral 640 / 640 120 / 120 Output: Urine 270 / 270 375 / 375 300 / 300 Other: Urine Appearance Clear Clear Clear Urine Color Light Sofya Dark Sofya Dark Yellow Urine Odor Normal Stool Color Brown Green Stool Consistency Soft Formed Size of Bowel Movement Large # Voids 1 - Imaging and Cardiology Imaging & Cardiology Narrative: Date of Exam: 06/09/17 Ordering Provider: Nadeen Mendez APRN Type of Exam(s): XR chest 1V Reason for Exam(s): Cough, resp. failure Indication: Cough, resp. failure PROCEDURE: XR chest 1V: Encounter: Initial Comparison: May 28 Findings: Minimal areas of linear atelectasis in the lung bases. No consolidative pneumonia, pleural effusion or pneumothorax. Heart size, mediastinal contours and pulmonary vascularity are normal. Prior left PICC line has been removed. Impression: Minimal basilar atelectasis. 06/10/17 14:54 Assessment and Plan - Assessment and Plan (1) NSTEMI (non-ST elevated myocardial infarction) Status: Acute (2) Chest pain Status: Acute (3) Community acquired pneumonia Status: Acute (4) Acute and chronic respiratory failure with hypercapnia Status: Acute (5) Atherosclerotic heart disease of [place] coronary artery without angina pectoris Status: Chronic (6) Essential (primary) hypertension Status: Chronic (7) Type 2 diabetes mellitus without complications Status: Chronic (8) Obesity (BMI 30-39.9) Status: Chronic (9) ANGELLA (obstructive sleep apnea) Status: Chronic - Assessment and Plan 05/21/17 Reportedly had severe chest pain, was johnson and diaphoretic as well as tachypneic followed by decreased LOC. - HR 140s, sinus tach vs. A flutter - Given Adenosine 6mg IVP, followed by 12mg X2 without slowing HR. - Sedation given and attempted DCCV which was unsuccessful. - Following 2nd dose of Metoprolol 5mg IV heart rate slowed enough to confirm it is Sinus tachycardia. - Repeat EKG obtained, started on Heparin drip. - Trend Troponin - 2D echo - CTA for emboli/ dissection 05/22/17 NSTEMI: - Troponin: 1) 0.015, 2) 1.500, 3) 3.090, 4) 2.100 - EKG: SR, anterolateral ischemia V3-V6, inferior ischemia II/aVf - Left heart cath when more stable - Continue Heparin drip. HTN: Catapress TTS 1 patch while NPO - Hydralazine prn as ordered - Labetalol prn, hold HR <65 05/23/17 BP improving - EKG now please 05/24/17 Stop Heparin drip, get HIT panel Spoke with pharmacy, start Angiomax at 0.15mg/kg/hr (21.6mg/hr) until HIT panel resulted. Continues to have ST depression on Telemetry and EKG. Add Amlodipine 10mg per OG tube for better BP control 05/27/17 - Plan left heart cath with possible PCI in the am - Stop Angiomax drip - Give Lovenox 1mg/kg SQ tonight - Watch platelets closely 05/29/17 He had a left heart cath yesterday with successful primary stents of LAD using a 2.75 x 18 and another 2.75 x 18 drug-eluting Resolute Brandon stents. - Aspirin 81mg daily, Brilinta 90mg BID for dual antiplatelet therapy - Change Simvastatin to Atorvastatin 80mg at HS - Continue to Hold Metformin - Change Atenolol 50mg daily to 25mg BID - Decrease IV Lasix to daily and K+ to daily as BUN is rising and is post cath. 05/30/17 BP remains variable. Consider changing Catapres to an oral agent tomorrow Thank you for allowing us to participate in the care of this patient, we will follow along with you. 05/31/17 Increase Lisinopril to 20mg daily, give additional 10mg now - Leave Catapres as ordered for now 06/03/17 Continues to improve, BP well controlled, Hgb stable. no change in cardiac plan for now 06/04/17 Seen in CCU, expect transfer to surgical unit. Will plan further cardiac intervention after fully recovers from this hospitalization. 06/05/17 D/C Clonidine patch, was held today d/t pressure May need to downward adjust other antihypertensives 06/06/17 Stop Amlodipine, BP borderline low - Continue to monitor 06/10/17 BP remains low - Change Lisinopril from 10mg to 2.5mg Hospital Course Summary Disclaimer: The visit summary below is not to be considered part of the above Progress Note. Hospital Course: 05/17/17 Admission Admit to observation status under the care of Dr. Lopez. Sepsis work up initiated in ED. Patient meeting SIRS criteria based on tachycardia, tachypnea and reported fevers at home without obvious source. Initial lactate was 1.4 with repeat lactate decreased to 0.9. Blood cultures pending. WBC stable at 5.0. CXR revealed left basilar scarring without focal pneumonia. Respiratory panel was negative. Patient was given DuoNeb treatments and Solu-Medrol 125mg IV in ED. Will continue respiratory care with DuoNeb treatments QID and Q6H PRN as well as Solu -Medrol 125mg IV Q6H. History of diabetes with A1c on 04/17/17 at 6.4%. Continue home medications and monitor blood sugars closely given treatment with steroids. Sliding scale insulin as indicated for hyperglycemia. Patient was placed on BiPAP in ED with improvement. Continue BiPAP as indicated. Ativan as needed for anxiety and agitation while on BiPAP. Will monitor closely on telemetry with continuous pulse oximetry. Oxygen as needed to maintain SAO2 between 90-95%, weaning as able to baseline of 5L. SCDs for DVT prophylaxis. Given sudden onset of dyspnea, will obtain CT angio chest for further evaluation of PE - results pending. NS at 100cc/hr for hydration given decreased oral intake as on BiPAP. Monitor daily weight closely for signs of fluid overload. Recheck labs in AM to monitor blood counts, electrolytes and renal function. Patient wishes to maintain FULL CODE status. Upon discharge, patient's care will be returned to his PCP, Dr. Odom. 05/18/17 Don reports that his breathing is a little better today and is he is more alert. New cough with sputum production. 1 of the 2 blood cultures obtained on admission is POSITIVE for Streptococcus. Night telehospitalist was notified and Rocephin 2g IV Q24 hours was initiated for antimicrobial coverage. Given new cough, will try and obtain a sputum culture. Mucinex for mucolytic effect. Ricola for cough. Continue respiratory care including nebulized treatments. Continue to encourage BiPAP as indicated and supplemental oxygen to maintain SAO2 between 90 -95%. Wean oxygen to baseline of 5L as able. Given sudden onset of dyspnea, CT angio chest was obtained and revealed no PE but did note 2.2cm left lower lobe pulmonary nodule raising concern for primary lung malignancy and recommended further evaluation. Will discuss consideration of pulmonary consult for further evaluation. Continue Solu-Medrol 125mg IV Q6 hours. Anticipate initiation of tapering in near future. Blood sugars remain elevated, most likely steroid effect, ranging from 160's-> 200. Continue sliding scale insulin. Given recent CT with contrast, will hold metformin and restart 05/19/17. Continue NS at 75cc/hr for hydration. Monitor urinary output and daily weight closely for signs of fluid over load. Oral intake is good. Consider discontinuation of fluids this afternoon. Ativan as needed for anxiety and agitation while on BiPAP. Troponins continue to trend up slowing - 0.015, 0.017, 0.029, 0.045 and 0.048 this morning. Will recheck troponin at 1030 and continue to monitor closely on telemetry. Patient denies chest pain. SCDs for DVT prophylaxis. Recheck labs in AM to monitor blood counts, electrolytes and renal function. Discussed at length with patient and family the importance of smoking cessation. He admits to wanting to stop smoking and inquired about initiation of Chantix. Continue Wellbutrin for smoking cessation. With BC positive and starting IV antibiotics, will change admission status to inpatient. Anticipate greater than 2 midnights of care needed. 05/19/17 Continue with Rocephin for antimicrobial coverage. With lungs still very tight and congested, will continue with Solu-Medrol 125mg IV q 6 hours. Continue Neb treatments and acapella. Encourage use of BiPAP as much as able to help his chronic hypercapnea. Stressed with about the importance of him not smoking. She understand. Will consult with Dr Ashby for pulm evaluation. Will discontinue IVF. May restart metformin this evening. Sugars with elevation secondary to steroids. Did give Diamox 500mg x1 this am for fluid motivation and to help minimize contraction alkalosis. PT/OT to evaluate and initiate treatment tomorrow for his significant pulmonary debility. 05/20 Continue with Rocephin for antimicrobial coverage. One blood culture was positive with streptococcus Viridans, Repeat BC were drawn this morning. Scheduled breathing tx, IV solu-medrol, as well as oxygen and Bipap Appreciate Dr Ashby consultation. Likely require bronchoscopy for biopsy of lung mass. Continue to monitor BGM remain elevated. Metformin was resumed as well as sliding scale insulin. Encourage PT/OT for strengthening 05/21 Resp failure --> ABG shows resp acidosis and he was placed on BiPAP with improvement in color. Repeat ABG shows pH 7.12, pCO2 106, pO2 185. CXR ordered. BG 230. Chest pain --> EKG shows ST changes and widened QRS, poss a-flutter; troponin pending. Dr. Govea consulted. He's had 2 NTG but remains very hypertensive with SBP 220s. Pt failed to respond to adenosine, and subseqently was cardioverted with conversion to sinus tach. Rapid response activated and Dr. Ramírez was at bedside x20 min. Transferred to CCU, where pt was met by Dr. Govea for evaluation. Continue treatment for resp status including steroids and Rocephin. 05/22 Patient remains on a ventilator requiring continuous sedation. Oxygenation borderline on 40% FiO2-oxygen flow increased to 60% by pulmonary earlier today. Continue triple antibiotics (cefepime, Levaquin, vancomycin) pending sputum culture due to extensive pneumonia on CT/chest x-ray yesterday-not present on initial films. Peak troponin 3.09 with diffuse T-wave changes; discussed with Dr. Govea and will require cardiac catheterization in the future. Continue heparin drip. Blood pressure is uncontrolled-clonidine patch initiated earlier, IV hydralazine added as needed for systolic pressures above 180. OG placed-resume statin, SSRI, atenolol, and aspirin. Assess gastric residuals today-anticipate beginning tube feedings tomorrow. Adequate urine output, continue to monitor. Blood sugars remain elevated, off metformin at present. Increase basal insulin. 05/23 Patient remains on a ventilator requiring continuous sedation. Continue triple antibiotics (cefepime, Levaquin, vancomycin); suspect aspiration pneumonia-sputum culture normal charly. Extensive infiltrates on CT chest. Repeat chest x-ray in a.m. Fluid balance positive-roughly 5 L over several days, weight up-diuresis today. Potassium supplemented IV earlier today. Peak troponin 3.09 with diffuse T-wave changes; discussed with Dr. Govea and will require cardiac catheterization in the future. Continue heparin drip. Blood pressure remains elevated but improved from yesterday with addition of clonidine patch and resumption of atenolol per OG. IV hydralazine available as needed for systolic pressures above 180. OG placed 05/22-low volume gastric output overnight and tolerating medications per OG. Will initiate tube feedings with low glycemic formula at 20 mL per hour overnight. Nutrition consult. Blood sugars remain elevated, off metformin at present and on steroids. Increase basal insulin to 40 units anticipating further increase in blood sugar with initiation of tube feedings. 05/24 Remains ventilator dependent. Steroids decreased. Vancomycin discontinued, continue Levaquin and cefepime for probable aspiration pneumonia and Streptococcus viridans positive blood culture. Continue diuresis, blood pressures elevated-atenolol increased and lisinopril initiated to improve control. Tolerating tube feedings at low-volume, converted pulmonary formula with goal of 80 mL per hour. Platelet count dropping, heparin discontinued and bivalirudin initiated. 05/25 Tolerating spontaneous breathing trial, steroids decreased. Continues to require continuous sedation. Lisinopril increased to 20 mg to improve blood pressure control. Platelet count down to 100K; HIT Ab pending. Fevers overnight without evidence source, leukocytosis/left shift resolved improved. Lines to be cultured. 05/26 FiO2 titrated to 40%; diuresing well-continue same. Spontaneous breathing trial planned for the morning with possible extubation at that time. Cardiac status stable, no further tachyarrhythmias. Trend to improved blood pressures. Cardiac catheterization planned in the future. Remains on bivalirudin. Platelet count 86K today, HIT Ab pending. Tube feedings at goal, blood sugars significantly elevated-NovoLog scheduled every 6 hours and when necessary. Chest x-ray improved, remains on Levaquin and cefepime for probable aspiration pneumonia. Blood cultures drawn yesterday negative thus far. 05/27 Extubated this afternoon, OG discontinued in conjunction with extubation. CPAP initiated for respiratory support. Speech therapy, PT, OT consultations tomorrow. Anticipate significant reduction in fluid volume off sedating medications and tube feedings--> Lasix dose decreased to twice daily administration. Platelet count stabilizing, HIT Ab negative. Intermittent fever, remains on antibiotics for possible aspiration pneumonia. Repeat blood cultures negative. 05/29 Extubated 05/27 Placed on CPAP with home equipment. Baseline 5L Currently tolerating NC, oxygen support as needed to maintain sats and mentation , pulm consulted and following CXR-stable Leukocytosis-likely 2/2 steroid effect, PCT negative, no fever x48 hours Cefepime and Levaquin currently. Vanc discontinued 05/24. Likely d/c abx today. Will consult ID for abx recs Failed speech therapy Continue tube feeds and meds via Dobhoff Monitor fluid status-hold evening dose of lasix Peak troponin 3.09 on 05/21/17 with diffuse T-wave changes; heart cath 05/28-now on ASA and Bivalirudin Monitor platelet count-currently WNL Monitor BP, adjust medications as needed Monitor glucose and continue insulin as ordered Discussed with nursing staff, and infectious disease 05/30 Extubated 05/27, continue Bipap/NC as per pulm Weaning steroids CXR-improving Leukocytosis Cefepime, Levaquin, Vanc discontinued Continue Tamiflu Failed speech therapy, continue to re-eval Continue tube feeds and meds via Dobhoff, feeds at 40ml/hr, goal of 80ml/hr Discontinue lasix, give 1L NS and re-eval fluid status Continue ASA and Bivalirudin per cardiology 05/31 Failed speech therapy, continue to re-eval Tube feedings and medications per Dobbhoff, goal 80 mL per hour tube feeding. Adjust insulin for hyperglycemia. 06/01 describes increased confusion/irritability-haloperidol initiated as needed. Converting to prednisone per Dobbhoff in a.m.; blood gas with mild hypoxia-FiO2 increased. Continue nutritional support per Dobbhoff; insulins again adjusted for persistent hyperglycemia. Chest pain described overnight, EKG unchanged. 06/02 Complaints of chest pain/dyspnea again this morning-resolved with position change. Intermittent confusion, haloperidol given twice overnight. Persistent hyperglycemia, scheduled short acting insulin adjusted further. Solu-Medrol discontinued, prednisone initiated per Dobbhoff this morning. Lactulose administered per Dobbhoff for ongoing constipation; MiraLAX added with recommendation the patient take it orally. Patient and family advised he will require rehabilitation before discharge home can be entertained. 06/07 Extubated 05/27, continue Bipap/NC-5 L as per pulm. IV steroids converted to prednisone 06/02-dosed decreased by pulmonary. Tamiflu for influenza A-initiated 05/29; course completed. Soft diet with ground meats with regular liquids per speech therapy. Insulin doses decreased significantly given discontinuation of tube feedings. Blood sugars down. Now eating more. Monitor. Continue corrective scale. Continue ASA and Bivalirudin per cardiology; also on beta jesenia and atorvastatin. Continue to work with PT/OT/Speech On usual doses of Wellbutrin and citalopram. Has Ativan and haloperidol available if needed for anxiety or delirium. Had bladder training. Rylan dismissed when patient intended to leave AMA. Decreased lisinopril. Clonidine and amlodipine DC'd Ready for dismissal. Now accepting he needs to go to SNU or IRU. Awaiting insurance decision. 06/08/17 Extubated 05/27, continue Bipap/NC-5 L as per pulm. IV steroids converted to prednisone 06/02-dosed decreased by pulmonary. Tamiflu for influenza A-initiated 05/29; course completed. Soft diet with ground meats with regular liquids per speech therapy. Insulin doses decreased significantly given discontinuation of tube feedings. Blood sugars down. Now eating more. Monitor. Continue corrective scale. Continue ASA and Bivalirudin per cardiology; also on beta jesenia and atorvastatin. Continue to work with PT/OT/Speech On usual doses of Wellbutrin and citalopram. Has Ativan and haloperidol available if needed for anxiety or delirium. Had bladder training. Fagan dismissed when patient intended to leave AMA. Decreased lisinopril. Clonidine and amlodipine DC'd. Atenolol. Consider change to Coreg or Metoprolol Succinate for known HFrEF. Ready for dismissal. Now accepting he needs to go to SNU or IRU. Awaiting insurance decision. Continue Nystatin for thrush. Sore throat may be due to sinus drainage- humidity added to O2 today. Repeat CXR in AM. Consider change back to metformin upon dismissal. <Francis Govea - Last Filed: 06/17/17 16:46> Exam Vital signs: Temperature 96.4 F L 06/11/17 08:00 Pulse Rate 86 06/11/17 08:00 Respiratory Rate 22 06/11/17 13:45 Blood Pressure 95/53 06/11/17 08:00 Pulse Oximetry 96 06/11/17 14:02 Inpatient Medications: Discontinued Medications Generic Name Dose Route Start Last Admin Trade Name Freq PRN Reason Stop Dose Admin Acetaminophen 325 - 650 mg 05/17/17 10:08 06/01/17 21:51 Tylenol PO 650 mg Q5H PRN Administration Discomfort Acetaminophen 650 mg 05/21/17 15:10 Tylenol Supp DC Q5H PRN Pain Acetaminophen 325 - 650 mg 05/28/17 09:24 Tylenol PO Q5H PRN Pain Hydrocodone Bitart/Acetaminophen 1 tab 05/17/17 21:00 05/31/17 08:42 [place] 7.5/325 PO 1 tab BID KSENIA Administration Hydrocodone Bitart/Acetaminophen 1 tab 05/17/17 10:14 06/06/17 05:37 [place] 7.5/325 PO 1 tab Q6H PRN Administration Pain Hydrocodone Bitart/Acetaminophen 1 - 2 tab 05/28/17 09:24 [place] 5/325 PO Q5H PRN Pain Acetazolamide 500 mg 05/19/17 10:51 05/19/17 11:25 Diamox PO 05/19/17 10:52 500 mg O ONE Administration Adenosine 12 mg 05/21/17 09:17 05/21/17 08:50 Adenocard IVP 05/21/17 09:18 12 mg O ONE Administration Adenosine 6 mg 05/21/17 09:18 05/21/17 09:23 Adenocard IVP 05/21/17 09:19 6 mg O ONE Administration Al Hydroxide/Mg Hydroxide 30 ml 05/28/17 09:24 Maalox Plus PO Q3H PRN Indigestion Albuterol/Ipratropium 6 ml 05/17/17 05:19 05/17/17 05:33 Duoneb AEROSOL 05/17/17 05:20 6 ml O ONE Administration Albuterol/Ipratropium 3 ml 05/17/17 11:00 05/21/17 18:22 Duoneb AEROSOL Not Given RTQID KSENIA Albuterol/Ipratropium 3 ml 05/17/17 10:11 Duoneb AEROSOL RTQID PRN Albuterol/Ipratropium 3 ml 05/21/17 15:15 06/11/17 13:45 Duoneb AEROSOL 3 ml Q4H KSENIA Administration Amlodipine Besylate 10 mg 05/24/17 13:46 06/04/17 09:44 Norvasc PO 10 mg DAILY KSENIA Administration Amlodipine Besylate 5 mg 06/04/17 11:41 06/06/17 10:38 Norvasc PO 5 mg DAILY KSENIA Administration Aspirin 81 mg 05/18/17 09:00 05/23/17 08:26 Asa PO Not Given DAILY [facility] Aspirin 81 mg 05/22/17 16:00 05/31/17 08:42 Asa GT 81 mg DAILY KSENIA Administration Aspirin 81 mg 05/28/17 09:24 06/11/17 09:35 Ecotrin PO 81 mg DAILY KSENIA Administration Atenolol 25 mg 05/18/17 09:00 05/24/17 08:58 Tenormin PO 25 mg DAILY KSENIA Administration Atenolol 50 mg 05/25/17 09:00 05/28/17 12:30 Tenormin PO Not Given DAILY [facility] Atenolol 25 mg 05/24/17 09:40 05/24/17 11:09 Tenormin PO 05/24/17 09:41 25 mg O ONE Administration Atenolol 25 mg 05/29/17 09:00 06/11/17 09:47 Tenormin PO Not Given BID [facility] Atorvastatin Calcium 80 mg 05/28/17 21:00 06/10/17 20:32 Lipitor PO 80 mg HS KSENIA Administration Atropine Sulfate 0.5 mg 05/28/17 09:24 Atropine IVP Q5M PRN Bradycardia Benzocaine 1 lozenge 05/20/17 18:54 Cepacol Sore Throat Lozenge MM Q2HR PRN Sore throat Bisacodyl 10 mg 05/27/17 15:11 Dulcolax RECTALLY DAILY PRN Constipation Bisacodyl 5 - 10 mg 05/28/17 09:24 Dulcolax PO DAILY PRN Constipation Bisacodyl 10 mg 05/28/17 09:24 Dulcolax RECTALLY DAILY PRN Constipation Bivalirudin 250 mg 05/24/17 14:15 Angiomax IV NOW KSENIA Budesonide 0.5 mg 05/17/17 19:00 06/11/17 09:02 Pulmicort Inhalation AEROSOL 0.5 mg RTBID [facility] Administration Bupropion HCl 150 mg 05/17/17 21:00 06/11/17 09:34 Wellbutrin Sr PO 150 mg BID [facility] Administration Citalopram Hydrobromide 40 mg 05/18/17 09:00 06/11/17 09:34 Celexa PO 40 mg DAILY [facility] Administration Clonidine HCl 0.1 mg 05/22/17 09:00 06/05/17 09:05 Catapres-Tts 1 TD Not Given Q7D@0900 [facility] Clonidine HCl 1 removal 05/29/17 08:59 06/05/17 09:05 Catapres Patch Removal TD 1 removal Q7D [facility] Administration Enoxaparin Sodium 1 each 05/18/17 10:47 05/18/17 12:54 Pharmacy Consult - Lovenox MC 05/18/17 10:48 1 each O ONE Administration Enoxaparin Sodium 50 mg 05/18/17 11:45 05/20/17 08:37 Lovenox SQ 50 mg DAILY KSENIA Administration Enoxaparin Sodium 142 mg 05/27/17 17:00 05/28/17 09:34 Lovenox SQ 142 mg DAILY KSENIA Administration Furosemide 20 mg 05/18/17 09:00 05/20/17 08:37 Lasix PO 20 mg DAILY KSENIA Administration Furosemide 40 mg 05/21/17 09:37 05/21/17 09:45 Lasix IVP 05/21/17 09:38 40 mg ONCE ONE Administration Furosemide 20 mg 05/23/17 21:00 05/24/17 08:59 Lasix IVP 20 mg Q12HR KSENIA Administration Furosemide 20 mg 05/24/17 17:00 05/27/17 09:31 Lasix IVP 20 mg Q8HR KSENIA Administration Furosemide 20 mg 05/27/17 21:00 05/29/17 08:09 Lasix IVP 20 mg Q12H KSENIA Administration Furosemide 20 mg 05/29/17 09:00 Lasix IVP DAILY KSENIA Gabapentin 300 mg 05/17/17 15:00 06/11/17 09:31 Neurontin PO 300 mg TID KSENIA Administration Glucose 37.5 gm 05/17/17 10:12 Glutose 15 PO PRN PRN Hypoglycemia Guaifenesin 1,200 mg 05/18/17 09:00 05/29/17 08:14 Mucinex La PO Not Given BID KSENIA Guaifenesin 400 mg 05/29/17 12:00 06/11/17 05:51 Robitussin Liq PO Not Given Q6H KSENIA Haloperidol 1 mg 06/03/17 20:30 Haldol PO Q4H PRN Haloperidol Decanoate 1 mg 06/01/17 17:43 06/02/17 17:00 Haldol Liquid GT 1 mg Q4H PRN Administration Heparin Sodium (Beef Lung) 5,000 unit 05/21/17 09:23 05/21/17 10:07 Heparin Bolus IVP 05/21/17 09:24 5,000 unit O ONE Administration Heparin Sodium (Beef Lung) 3,000 unit 05/21/17 17:45 05/21/17 17:53 Heparin Bolus IVP 05/21/17 17:46 3,000 unit O ONE Administration Heparin Sodium (Beef Lung) 3,000 unit 05/22/17 03:37 05/22/17 03:46 Heparin Bolus IVP 05/22/17 03:38 3,000 unit O ONE Administration Heparin Sodium (Porcine) 1 each 05/21/17 09:08 Pharmacy Consult - Heparin 05/21/17 09:09 ONE TIME ONE Hydralazine HCl 5 mg 05/22/17 08:47 05/22/17 10:09 Apresoline IVP 5 mg Q6H PRN Administration Hypertension Hydralazine HCl 10 mg 05/22/17 15:01 05/28/17 06:06 Apresoline IVP 10 mg Q4H PRN Administration Hypertension Sodium Chloride 1,000 mls @ 999.9 mls/hr 05/17/17 05:44 05/17/17 11:20 Normal Saline IV 05/17/17 06:43 Infused .Q1H ONE Infusion Sodium Chloride 1,000 mls @ 75 mls/hr 05/17/17 10:08 05/19/17 11:19 Normal Saline IV Infused .[id number] KSENIA Infusion Ceftriaxone Sodium 2 gm/ 100 mls @ 200 mls/hr 05/18/17 01:15 05/18/17 01:50 Sodium Chloride IV Infused Q24H KSENIA Infusion Ceftriaxone Sodium 2 gm/ 50 mls @ 100 mls/hr 05/18/17 21:00 05/20/17 21:55 Sodium Chloride IV Infused Q24H KSENIA Infusion Heparin Sodium (Porcine) 20,000 unit in 500 mls @ 44 mls/hr 05/21/17 09:30 13:17 Heparin Drip IV Infused .[id number] KSENIA Titration Protocol Dexmedetomidine HCl 200 mcg/ 52 mls @ 6.87 mls/hr 05/21/17 09:52 05/21/17 20: 00 Sodium Chloride IV 05/21/17 20:29 0 mcg/kg/hr .Q7H35M PRN 0 mls/hr Protocol Titration 0.2 MCG/KG/HR Propofol 1,000 mg in 100 mls @ 3.969 mls/hr 05/21/17 10:39 05/21/17 14:28 Diprivan IV 0 mcg/kg/min .Q24H PRN 0 mls/hr Protocol Infusion 5 MCG/KG/MIN Fentanyl 1,000 mcg/ Sodium 100 mls @ 0 mls/hr 05/21/17 13:02 05/27/17 14:45 Chloride IV Infused .Q0M PRN Titration Protocol Per Protocol Sodium Chloride 250 mls @ 999.9 mls/hr 05/21/17 13:15 05/21/17 14:28 Normal Saline IV 05/21/17 13:29 Infused .Q15M KSENIA Infusion Cefepime HCl 1 gm/ Sodium 50 mls @ 100 mls/hr 05/21/17 15:30 05/29/17 10:46 Chloride IV Infused Q6H KSENIA Infusion Levofloxacin/Dextrose 750 mg in 150 mls @ 100 mls/hr 05/21/17 16:00 05/28/17 17:15 Levaquin Premix IV Infused Q24H KSENIA Infusion Vancomycin HCl 1,500 mg/ 500 mls @ 250 mls/hr 05/21/17 18:00 05/24/17 12:15 Sodium Chloride IV Infused Q8H KSENIA Infusion Dexmedetomidine HCl 1,000 mcg/ 260 mls @ 6.87 mls/hr 05/21/17 20:30 05/27/17 14:45 Sodium Chloride IV 05/27/17 14:45 Infused .Q24H PRN Titration Protocol 0.2 MCG/KG/HR Potassium Chloride 10 meq in 100 mls @ 100 mls/hr 05/23/17 09:45 05/23/17 17: 34 Potassium Chloride Premix IV 05/23/17 13:44 Infused Q1H KSENIA Infusion Heparin Sodium (Porcine) 20,000 unit in 500 mls @ 45 mls/hr 05/23/17 16:00 06:16 Heparin Drip IV Not Given .Q11H7M KSENIA Protocol Potassium Chloride 10 meq in 100 mls @ 100 mls/hr 05/24/17 09:45 05/24/17 15: 56 Potassium Chloride Premix IV 05/24/17 13:44 Not Given Q1H KSENIA Potassium Chloride 10 meq/ 105 mls @ 105 mls/hr 05/24/17 11:45 05/24/17 17:00 Sodium Chloride IV 05/24/17 15:44 Infused Q1H KSENIA Infusion Bivalirudin 250 mg/ Sodium 500 mls @ 43.2 mls/hr 05/24/17 15:15 05/27/17 17: 34 Chloride IV Not Given .[id number] KSENIA Sodium Chloride 1,000 mls @ 75 mls/hr 05/28/17 07:45 05/28/17 14:00 Normal Saline IV Infused .[id number] KSENIA Infusion Sodium Chloride 1,000 mls @ 500 mls/hr 05/30/17 10:14 05/30/17 10:41 Normal Saline IV 05/30/17 12:13 500 mls/hr .Q2H ONE Administration Sodium Chloride 1,000 mls @ 60 mls/hr 05/30/17 17:00 05/31/17 06:00 Normal Saline IV 05/31/17 09:39 60 mls/hr .[id number] KSENIA Infusion Insulin Aspart 1 - 5 unit 05/17/17 10:12 05/18/17 06:06 Novolog SQ 2 unit SS PRN Administration Hyperglycemia Protocol Insulin Aspart 2 - 8 unit 05/18/17 08:22 05/21/17 07:30 Novolog SQ 3 unit SS PRN Administration Hyperglycemia Protocol Insulin Aspart 15 unit 05/20/17 10:32 05/20/17 10:36 Novolog SQ 05/20/17 10:33 15 unit ONE TIME ONE Administration Insulin Aspart 2 - 14 unit 05/21/17 11:43 06/10/17 20:31 Novolog SQ 10 unit SS PRN Administration Hyperglycemia Protocol Insulin Aspart 10 unit 05/26/17 12:00 05/26/17 13:54 Novolog SQ Not Given Q6H KSENIA Insulin Aspart 10 unit 05/26/17 15:00 05/27/17 21:06 Novolog SQ Not Given 0300,0900,1500,2100 KSENIA Insulin Aspart 10 unit 05/28/17 15:00 Novolog SQ Q6HR [facility]ENIA Insulin Aspart 10 unit 05/28/17 18:00 05/31/17 06:11 Novolog SQ 10 unit Q6H [facility]ENIA Administration Insulin Aspart 12 unit 05/31/17 08:41 06/03/17 19:14 Novolog SQ Not Given Q6H [facility] Insulin Aspart 15 unit 06/01/17 15:00 06/02/17 10:37 Novolog SQ Not Given Q6H [facility] Insulin Aspart 18 unit 06/02/17 09:58 06/03/17 17:37 Novolog SQ 18 unit Q6H [facility] Administration Insulin Glargine 10 unit 05/21/17 21:00 05/21/17 20:14 Lantus SQ 10 unit HS [facility]ENIA Administration Insulin Glargine 20 unit 05/22/17 21:00 05/22/17 20:14 Lantus SQ 20 unit HS [facility] Administration Insulin Glargine 40 unit 05/23/17 21:00 05/30/17 21:34 Lantus SQ 40 unit HS [facility] Administration Insulin Glargine 50 unit 05/31/17 08:41 05/31/17 21:06 Lantus SQ 50 unit HS [facility] Administration Insulin Glargine 60 unit 06/01/17 21:00 06/02/17 20:23 Lantus SQ 60 unit HS [facility] Administration Insulin Glargine 30 unit 06/03/17 21:00 06/10/17 20:31 Lantus SQ 30 unit HS [facility] Administration Labetalol HCl 10 mg 05/21/17 20:40 05/22/17 06:05 Trandate IVP 10 mg Q4H PRN Administration INCREASED blood pressure Lactulose 20 gm 06/02/17 10:00 06/02/17 11:09 Lactulose PO 06/02/17 10:01 20 gm O ONE Administration Lidocaine HCl 15 ml 06/08/17 18:06 Xylocaine Viscous 2% PO Q6HR PRN Lidocaine HCl 5 ml 06/11/17 09:38 Magic Mouthwash (Lido/Maalox/Carafate) PO Q4H PRN Lisinopril 10 mg 05/24/17 16:15 05/31/17 08:42 Prinivil PO 10 mg DAILY [facility]IA Administration Lisinopril 10 mg 05/31/17 15:18 05/31/17 15:43 Prinivil PO 05/31/17 15:19 10 mg O ONE Administration Lisinopril 20 mg 06/01/17 09:00 06/04/17 09:45 Prinivil PO 20 mg DAILY [facility] Administration Lisinopril 10 mg 06/05/17 09:00 06/10/17 08:14 Prinivil PO Not Given DAILY [facility] Lisinopril 2.5 mg 06/11/17 09:00 06/11/17 09:48 Prinivil PO Not Given DAILY [facility] Lorazepam 1 mg 05/17/17 06:16 05/17/17 06:56 Ativan PO 05/17/17 06:17 1 mg O ONE Administration Lorazepam 0.5 mg 05/17/17 10:13 05/24/17 15:55 Ativan Inj IVP 0.5 mg Q6H PRN Administration Lorazepam 1 mg 05/24/17 19:46 05/31/17 01:43 Ativan Inj IVP 1 mg Q2H PRN Administration Agitation/Air hunger/Pain Lorazepam 0.5 - 1 mg 05/28/17 09:24 06/10/17 22:22 Ativan PO 0.5 mg Q4H PRN Administration Anxiety Lorazepam 0.5 - 1 mg 05/28/17 09:24 Ativan Inj IVP Q4H PRN Anxiety Magnesium Hydroxide 30 ml 05/26/17 12:41 05/26/17 13:53 Mom GT 05/26/17 12:42 30 ml O ONE Administration Magnesium Hydroxide 30 ml 05/28/17 09:24 Mom PO DAILY PRN Constipation Menthol 1 lozenge 05/18/17 08:19 Ricola Sf MM PRN PRN Cough Metformin HCl 500 mg 05/17/17 17:30 05/18/17 10:00 Glucophage PO Not Given BIDWM KSENIA Metformin HCl 500 mg 05/19/17 09:00 05/21/17 10:52 Glucophage PO Not Given BIDWM [facility] Metformin HCl 500 mg 06/10/17 17:30 06/11/17 09:33 Glucophage PO 500 mg BIDWM [facility]IA Administration Methylprednisolone Sodium Succinate 125 mg 05/17/17 06:26 05/17/17 06:53 Solu-Medrol IM 05/17/17 06:27 125 mg O ONE Administration Methylprednisolone Sodium Succinate 125 mg 05/17/17 15:00 05/20/17 08:37 Solu-Medrol IVP 125 mg Q6HR [facility]IA Administration Methylprednisolone Sodium Succinate 80 mg 05/20/17 15:00 05/24/17 08:57 Solu-Medrol IVP 80 mg Q6HR [facility]IA Administration Methylprednisolone Sodium Succinate 80 mg 05/24/17 17:00 05/26/17 08:23 Solu-Medrol IVP 80 mg Q8HR [facility]IA Administration Methylprednisolone Sodium Succinate 80 mg 05/26/17 21:00 05/29/17 08:15 Solu-Medrol IVP 80 mg Q12HR [facility]IA Administration Methylprednisolone Sodium Succinate 60 mg 05/29/17 21:00 06/01/17 21:57 Solu-Medrol IVP 06/02/17 04:00 60 mg Q12HR [facility]ENIA Administration Metoclopramide HCl 5 mg 05/23/17 17:30 05/30/17 10:42 Reglan GT 5 mg Q6H KSENIA Administration Metoclopramide HCl 5 - 10 mg 05/28/17 09:24 Reglan IVP Q6H PRN Nausea &/or vomiting Metoclopramide HCl 5 mg 05/30/17 14:00 06/03/17 23:15 Reglan GT Not Given Q6H KSENIA Metoprolol Tartrate 15 mg 05/21/17 09:18 05/21/17 09:05 Lopressor IVP 05/21/17 09:19 15 mg ONCE ONE Administration Metoprolol Tartrate 5 mg 05/28/17 10:01 05/28/17 10:00 Lopressor IVP 05/28/17 10:02 5 mg ONCE ONE Administration Morphine Sulfate 1 - 2 mg 05/17/17 10:08 05/24/17 17:56 Morphine Sulfate Inj IVP 2 mg Q2H PRN Administration Pain Morphine Sulfate 2 - 4 mg 05/28/17 09:24 05/28/17 10:17 Morphine Sulfate Inj IVP 05/29/17 09:23 4 mg Q2H PRN Administration Pain Morphine Sulfate 2 - 4 mg 05/28/17 09:24 06/02/17 08:19 Morphine Sulfate Inj IVP 2 mg Q5M PRN Administration Angina Neomycin/Polymyxin/Bacitracin 1 applic 06/06/17 13:00 06/06/17 13:10 Neosporin TP 06/06/17 13:01 1 applic O ONE Administration Nitroglycerin 0.4 mg 05/17/17 10:14 05/21/17 08:35 Nitrostat SL 0.4 mg Q5MIN3 PRN Administration CP Nitroglycerin 0.4 mg 05/28/17 09:24 Nitrostat SL Q5M PRN Angina Nitroglycerin 0.4 mg 05/31/17 23:49 06/02/17 08:11 Nitrostat SL 0.4 mg Q5M PRN Administration Chest pain --Pom--(Itraconazole 200 mg 05/17/17 21:00 05/29/17 09:39 [Itraconazole] 200 PO Not Given Mg) BID [facility] Nystatin 5 ml 06/03/17 21:00 06/11/17 09:48 Mycostatin PO 06/13/17 20:59 Not Given QID [facility] Omeprazole 40 mg 05/18/17 06:30 06/11/17 05:52 Prilosec PO Not Given ACB [facility]ENIA Ondansetron HCl 4 mg 05/17/17 10:08 05/19/17 02:45 Zofran IVP 4 mg Q6H PRN Administration Nausea &/or vomiting Ondansetron HCl 4 mg 05/28/17 09:24 Zofran IVP Q6H PRN Nausea &/or vomiting Oseltamivir Phosphate 75 mg 05/29/17 21:00 06/03/17 09:27 Tamiflu 06/03/17 09:01 75 mg BID [facility]ENIA Administration Pantoprazole Sodium 40 mg 05/22/17 09:00 05/31/17 08:44 Protonix Iv IVP 40 mg DAILY [facility]ENIA Administration Pharmacy Consult 1 each 05/17/17 10:32 Pharmacy Consult - Fall Risk XX 05/17/17 10:33 ONE TIME ONE Pharmacy Consult 1 each 05/27/17 10:17 Pharmacy Consult - Fall Risk XX 05/27/17 10:18 ONE TIME ONE Pharmacy Consult 1 each 06/05/17 10:03 Pharmacy Consult - Fall Risk XX 06/05/17 10:04 ONE TIME ONE Polyethylene Glycol 17 gm 06/03/17 09:00 06/11/17 09:49 Miralax PO Not Given DAILY [facility]ENIA Potassium Chloride 40 meq 05/24/17 18:10 05/26/17 06:13 Kcl Oral Liq 20 Meq/15 Ml PO Not Given BIDWM [facility]ENIA Potassium Chloride 40 meq 05/25/17 13:00 05/26/17 08:22 Kcl Oral Liq 20 Meq/15 Ml PO 40 meq QID [facility]ENIA Administration Potassium Chloride 40 meq 05/26/17 12:00 05/27/17 12:04 Kcl Oral Liq 20 Meq/15 Ml PO 40 meq TIDWM KSENIA Administration Potassium Chloride 40 meq 05/27/17 17:30 05/29/17 07:59 Kcl Oral Liq 20 Meq/15 Ml PO 40 meq BIDWM [facility]ENIA Administration Potassium Chloride 40 meq 05/29/17 09:00 05/30/17 08:42 Kcl Oral Liq 20 Meq/15 Ml PO 40 meq DAILY [facility]ENIA Administration Prednisone 60 mg 06/02/17 08:00 06/03/17 09:20 Deltasone 20 Mg PO 60 mg WB [facility]ENIA Administration Prednisone 50 mg 06/03/17 11:15 06/05/17 09:02 Deltasone 50 Mg PO 50 mg WB [facility]ENIA Administration Prednisone 40 mg 06/06/17 08:00 06/10/17 08:20 Deltasone 20 Mg PO 40 mg WB [facility]ENIA Administration Prednisone 30 mg 06/11/17 08:00 06/11/17 09:34 Deltasone 20 Mg PO 30 mg WB KSENIA Administration Promethazine HCl 12.5 - 25 mg 05/28/17 09:24 Phenergan Inj IVP Q6HR PRN Nausea &/or vomiting Simvastatin 20 mg 05/17/17 21:00 05/27/17 20:36 Zocor PO Not Given HS [facility]ENIA Sodium Chloride 10 - 80 ml 05/17/17 05:20 06/05/17 11:42 Iv Flush IVF 20 ml PRN PRN Administration Flushing Sodium Chloride 1 spray 05/19/17 11:42 05/19/17 16:37 Deep Sea Nasal Moisturizing [place] EA NOSTRIL 1 spray PRN PRN Administration Congestion Sodium Chloride 500 ml 05/25/17 21:40 05/25/17 21:52 Normal Saline IV 500 ml PRN PRN Administration Throat Lozenges 3 spray 06/08/17 22:18 06/08/17 23:11 Chloraseptic [place] PO 3 spray Q2H PRN Administration Ticagrelor 90 mg 05/28/17 21:01 06/11/17 09:34 Brilinta PO 90 mg Q12H [facility]ENIA Administration Vancomycin HCl 1 each 05/21/17 15:19 05/21/17 15:53 Pharmacy Consult - Vancomycin MC 05/21/17 15:20 1 each O ONE Administration - Urinary Catheter Management Urethral Cath placed during this visit: no Results 06/09/17 05:02 06/09/17 05:02 Assessment and Plan - Assessment and Plan (1) Community acquired pneumonia Status: Acute (2) Acute and chronic respiratory failure with hypercapnia Status: Acute (3) Chest pain Status: Acute (4) Atherosclerotic heart disease of [place] coronary artery without angina pectoris Status: Chronic (5) Essential (primary) hypertension Status: Chronic (6) Type 2 diabetes mellitus without complications Status: Chronic (7) Obesity (BMI 30-39.9) Status: Chronic (8) ANGELLA (obstructive sleep apnea) Status: Chronic (9) NSTEMI (non-ST elevated myocardial infarction) Status: Acute - Attestation Attestation Narrative: 06/17/17 16:46 Recommendation After examining the patient I agree with the above assessment. I am involved in the formulation of the patient's plan of care. Hospital Course Summary Disclaimer: The visit summary below is not to be considered part of the above Progress Note.
[2017-06-10] MEDS: INSULIN ASPART 100unit/ml INJECTION SQ PRN ×2 (16:56→20:31)
[2017-06-10] MEDS: METFORMIN 500 MG TABLET PO SCH (18:32)
[2017-06-10] MEDS: INSULIN GLARGINE 100unit/ml INJECTION SQ SCH (20:31)
[2017-06-10] MEDS: ATORVASTATIN 40 MG TABLET PO SCH (20:32)
[2017-06-10] MEDS: LORazepam 0.5 MG TABLET PO PRN (22:22)
[2017-06-11] MEDS: GUAIFENESIN 200mg/10ml ORAL LIQUID PO SCH ×2 (00:12→05:51)
[2017-06-11] MEDS: ALBUTEROL/IPRATROPIUM 2.5mg-0.5mg/3ml NEB AEROSOL SCH ×4 (04:14→13:45)
[2017-06-11] MEDS: OMEPRAZOLE 20 MG CAPSULE PO SCH (05:52)
[2017-06-11] MEDS ORDERED: PredniSONE 20 MG TABLET PO SCH (08:00)
[2017-06-11 08:06] VITALS: BP 95/53; PULSE 86; TEMP 96.4
[2017-06-11] MEDS ORDERED: LISINOPRIL 2.5 MG TABLET PO SCH (09:00)
[2017-06-11] MEDS: BUDESONIDE INH.SOLN 0.5mg/2ml NEB AEROSOL SCH (09:02)
[2017-06-11] MEDS: GABAPENTIN 300 MG CAPSULE PO SCH (09:31)
[2017-06-11] MEDS: METFORMIN 500 MG TABLET PO SCH (09:33)
[2017-06-11] MEDS: BuPROPion SR 150mg (12HR) TABLET PO SCH (09:34)
[2017-06-11] MEDS: TICAGRELOR 90 MG TABLET PO SCH (09:34)
[2017-06-11] MEDS: CITALOPRAM 40 MG TABLET PO SCH (09:34)
[2017-06-11] MEDS: ASPIRIN *EC* 81 MG TABLET PO SCH (09:35)
[2017-06-11] MEDS ORDERED: MAGIC MOUTHWASH 5ml PO PRN (09:38)
[2017-06-11] MEDS: ATENOLOL 25 MG TABLET PO SCH (09:47)
[2017-06-11] MEDS: NYSTATIN 500,000 units/5 ml ORAL LIQUID PO SCH (09:48)
[2017-06-11] MEDS: POLYETHYL GLYCOL 3350 17gm PACKET PO SCH (09:49)
--- NOTE | 2017-06-11 10:04 | Extended Care Facility Orders ---
Admission Orders Admit to:: [facility] Allergies/Adverse Reactions: Allergies No Known Allergies Allergy (Verified 04/17/17 10:12) Admitting Diagnosis: hypoxia,copd Admitting Physician: Ran Carter MD Attending Physician: Ran Carter MD Code Status: Full Code Anticiapted Length of Stay: 30 days or less Rehab Potential: fair Rehab Prognosis: fair Diet: 06/03/17 Dinner Cardiac Consistent Carbohydrate Diet [DIET] Calorie Level: 2400 Sodium Restriction: 2GRAM Fluid Consistency: REGLIQU Food Consistency: MECSOF Fat Content: LOW May use Facility Protocol or Standing Orders: Yes May have flu vaccine: Yes Evaluations/Treatment: PT, OT, RT - Additional Information In Event of Arrest: Start CPR,call 911,send patient to the ER Resident is Aware of Diagnosis: Yes Referrals: Zak Odom MD [Physician] - 1 Week Additional Orders: Encourage activity. Keep oxygen weaned as low as he needs to keep sats >90%. BiPAP overnight
[2017-06-11 14:02] VITALS: RESP 22
[2017-06-11 14:03] VITALS: O2SAT 96
--- NOTE | 2017-06-11 15:08 | Discharge Summary ---
Discharge Information Date of admission: 05/18/17 10:38 Anticipated date of discharge: 06/11/17 Attending Physician: Ran Carter MD Primary care physician: Zak Odom MD Consults: Consulting Provider: Donny Ashby Consulting Provider: Francis Govea Consulting Provider: Amy Corrales - Discharge Diagnosis (1) Acute exacerbation of chronic obstructive airways disease Status: Acute (2) Acute and chronic respiratory failure with hypercapnia Status: Acute (3) NSTEMI (non-ST elevated myocardial infarction) Status: Acute Acute on chronic respiratory failure with hypercapnia and hypoxia - baseline home oxygen at 5L; intubated 05/21-extubated on 05/27, now on Bipap/NC Leukocytosis-Resolved NSTEMI-peak troponin 3.09, diffuse T changes, s/p heart cath with 2 stents 05/28 COPD exacerbation Transaminitis Influenza A -completed Tamiflu treatment Hyperglycemia Alerted Mental Status Thrombocytopenia Constipation suspect orthostatic hypotension Thrush/Apthous ulcers Resolved Bilateral lower lobe pneumonia Bacteremia Fever Hypokalemia Wide complex tachycardia s/p cardioversion Dehydration Chronic Medical: Cardiomyopathy-EF 30% by echo 05/21/17 Pulmonary nodule - Irregular 2.2cm left lower lobe pulmonary nodule Anemia, unspecified, stable Coronary Artery Disease Hypertension Sleep Apnea Diabetes Mellitus Type 2 - A1c on 04/17/17 was 6.4% GERD Osteoarthritis Peripheral neuropathy Fibromyalgia Depression Tobacco dependency Peripheral vascular disease Morbid obesity - BMI >40 - Procedures Procedures: Date of Exam: 05/21/17 Type of Exam(s): US echo doppler complete DATE OF PROCEDURE May 21, 2017 This is a two-dimensional echo with spectral Doppler, color-flow and M-mode. It was obtained in a patient with shortness of breath and respiratory failure. This was a technically very difficult study. Left atrial dimension is at the upper limits of normal. Left ventricular end- diastolic dimension is normal. Left ventricle wall thickness is increased. LV systolic function is reduced with global hypokinesia with ejection fraction of about 30%. Right atrium is normal. Right ventricle is normal. Aortic root dimension is normal. Mitral valve is morphologically normal with trace of mitral regurgitation. Aortic valve was not visualized well. However, Doppler studies indicate no stenosis. Mild aortic insufficiency is present. Tricuspid valve shows trace of tricuspid regurgitation with normal estimated pulmonary artery systolic pressure of 28. Pulmonary valve was not visualized well but Doppler studies indicate no stenosis or insufficiency. There is no pericardial effusion. IMPRESSION 1. Technically difficult study. 2. Global hypokinesia with ejection fraction of about 30%. 3. Trace of mitral regurgitation. 4. Mild aortic insufficiency. 5. Mild tricuspid regurgitation with normal estimated pulmonary artery systolic pressure of 28. 6. Mild left ventricular hypertrophy. DATE OF PROCEDURE May 21, [address] Sarahi Luque The patient is a pleasant 61-year-old gentleman who developed arrhythmia that appeared to be atrial flutter this morning and was referred for cardioversion. Informed consent was obtained after explaining the procedure and the potential risks to the patient who agreed to proceed with the procedure. PROCEDURE 1. DC cardioversion. Conscious sedation was performed using Versed and fentanyl. Anterior-lateral Zoll pads were applied. 360 joules of energy was delivered in a synchronized manner. However, the patient did not convert to sinus. He tolerated the procedure well with no complications. IMPRESSION 1. Unsuccessful attempt at cardioversion of atrial flutter into sinus rhythm. Date of Exam: 05/28/17 Type of Exam(s): CA heart cath LT DATE OF PROCEDURE May 28, 2017 The patient is a pleasant 61-year-old gentleman who was admitted with respiratory failure and acute worsening of respiratory failure and is ruled in for aii-[id number] myocardial infarction with EKG changes suggestive of ischemia versus subendocardial injury and was referred for further evaluation by cardiac catheterization and possible intervention after respiratory status was stabilized and extubated. Informed consent was obtained after explaining the procedure and the potential risks to the patient who agreed to proceed with the procedure. PROCEDURE 1. Left heart catheterization. 2. Coronary angiography. 3. Primary stent of LAD using a 2.75 x 18 and another 2.75 x 18 drug-eluting Resolute [place] stents. CORONARY ANGIOGRAPHY Left main was free of significant lesions. Left anterior descending artery had 90% stenosis after the first diagonal. First diagonal also has about 80-90% ostial stenosis. Left circumflex artery had proximal 50-60% stenosis. Obtuse marginal has 80% eccentric stenosis. Right coronary artery is small with about 30-40% stenosis. After reviewing the images we decided to proceed with intervention on LAD. A 6 -[employer] left guide was advanced to the ostium of left main. A Runthrough wire was used to cross the lesion into distal LAD. A 2.75 x 18 drug-eluting Resolute [place] stent was delivered to the lesion site where it was deployed by inflating the balloon to 18 atmospheres. Next, we used another 2.75 x 18 drug- eluting Resolute [place] stent which was delivered distal to the previous stent with minimal overlap and deployed by inflating the balloon to 18 atmospheres. Next, angiogram showed excellent results with no residual stenosis. Due to patient's medical condition we did not wish to proceed with any further intervention at this time. The patient tolerated the procedure well with no complications. IMPRESSION 1. Coronary artery disease as described above. 2. Successful primary stent of LAD using a 2.75 x 18 and another 2.75 x 18 drug -eluting Resolute [place] stents. PLAN Will continue dual antiplatelet therapy and risk modification. Since the patient's medical condition is somewhat tenuous, we did not wish to proceed with any further intervention. The patient was somewhat agitated on table. I think this should stabilize the patient's cardiac condition at this point. One might consider diagonal artery and obtuse marginal percutaneous intervention in future, possibly femoral approach. - Laboratory Labs: 06/09/17 05:02 06/09/17 05:02 - Microbiology Microbiology 05/25/17 15:49 Midline Blood Culture - Final No Growth After 5 Days 05/25/17 15:43 Port/Picc Blood Culture - Final No Growth After 5 Days 05/20/17 04:36 Midline Blood Culture - Final No Growth After 5 Days 05/20/17 04:36 Midline Blood Culture - Final No Growth After 5 Days 05/21/17 13:45 Sputum, Expectorated Gram Stain - Final 05/21/17 13:45 Sputum, Expectorated Sputum Culture - Final Yeast, not C. albicans Normal Respiratory Charly - Radiology Radiology: Date of Exam: 05/17/17 Indication: acute dyspnea/hypoxia PROCEDURE: CT angio pulm emboli: Findings: Pulmonary arteries: Initial contrast was injection was nondiagnostic so repeat injection was performed. Exam is diagnostic to the segmental pulmonary arterial level. There are no defects identified to confirm a pulmonary embolus. Subsegmental pulmonary arteries cannot be well evaluated due to contrast bolus. Other findings: Significant respiratory motion artifact. There is bilateral lower lobe atelectasis. Irregular somewhat spiculated 2.2 cm left lower lobe pulmonary nodule on axial image #42. No additional discrete pulmonary nodules or masses. Linear scarring within the lingula with areas of right basilar atelectasis or scar. No pleural effusion or pneumothorax. The central airways are patent. No axillary or mediastinal lymphadenopathy. Heart size is mildly enlarged. No pericardial effusion. The upper abdomen shows no acute findings. Possible left renal cyst, incompletely evaluated. Impression: 1. No pulmonary embolus. 2. Irregular 2.2 cm left lower lobe pulmonary nodule raising concern for a primary lung malignancy. Recommend further evaluation with PET/CT or biopsy. Date of Exam: 05/17/17 INDICATION: dyspnea with tachycardia PROCEDURE: CHEST 2-VIEWS UPRIGHT (PA & LAT) FINDINGS: Persistent area of probable scarring in the lingula. Lungs are otherwise clear. No pleural effusion or pneumothorax. Heart size and mediastinal contours are stable. Pulmonary vascularity is normal. Impression: Stable chest with left basilar scarring but no focal pneumonia. Date of Exam: 05/21/17 Indication: chest pain, resp failure PROCEDURE: CT angio pulm emboli: Findings: Pulmonary arteries: Exam is diagnostic to the segmental pulmonary arterial level. No filling defects identified to suggest a pulmonary embolus Other findings: Patient is intubated with the endotracheal tube tip 3 cm above the haseeb. There is new groundglass opacity and consolidation in the right upper lobe with significant new consolidation in both lower lobes, greater on the right. No pneumothorax. Respiratory motion artifact. Continued irregular left lower lobe pulmonary nodule as seen previously. The central airways are patent. No axillary or mediastinal adenopathy. Heart size is stable. No pericardial effusion. The upper abdomen shows no acute findings. Impression: 1. No pulmonary embolus. 2. Bilateral pneumonia, worst in the right lower lobe. Date of Exam: 06/03/17 Indication: respiratory failure/hypoxia/COPD/influenza A XR chest 1V: Findings: Since previous study little change is identified. The heart size remains at the upper range of normal with some atelectatic changes in the lung bases. No focal prequel pulmonary consolidation or significant pleural effusions identified. No new bony abnormality appreciated. Impression: 1. Stable heart size and central vascularity. 2. Basilar atelectasis. Date of Exam: 06/09/17 Indication: Cough, resp. failure PROCEDURE: XR chest 1V: Findings: Minimal areas of linear atelectasis in the lung bases. No consolidative pneumonia, pleural effusion or pneumothorax. Heart size, mediastinal contours and pulmonary vascularity are normal. Prior left PICC line has been removed. Impression: Minimal basilar atelectasis. History of Present Illness HPI: Howard Moreno (Don) is a 61-year-old male patient of Dr. Zak Odom who has a significant history of COPD with chronic home oxygen use at 5L. He presented to [facility] ED today, 05/17/17, via EMS with his , Leticia, for evaluation of sudden acute dyspnea. As he is on BiPAP at the time of exam, his history is obtained from his in addition to his prior medical records, nursing notes and ED records. Chaz was recently admitted to [facility] on 04/17/17 for pneumonia and was discharged home on 04/22/17. His reports that he had been doing well and was even able to reduce his home oxygen to 4.5L instead of his typical 5L. He continues to receive home health but had been released from the care of his physical therapist and the occupational therapist since he was functioning so well. His reports that yesterday, 05/16/17, he started to complain of not feeling well. His home health nurse took his vitals which were reportedly "jenniffer high" per his and he was noted to be febrile at that time with a temperature of 103 with a heart rate between 140-150. He also complained of increased dyspnea requiring him to sit in his scooter all night. His home health nurse has recommended and encouraged that he come to the ED yesterday but he refused. Throughout the night he became increasingly more short of breath and finally consented to being evaluated in the ED this morning. Upon arrival to the ED, his temperature was elevated at 99.7, heart rate 130, respiratory rate 28, blood pressure 160/72 and pulse ox 92% on 5L NC. Labs were obtained and revealed WBC 5.0 with 71% neutrophils and 3% bands. Mild anemia noted with hemoglobin at 12.3. CMP was stable and troponin was 0.015. BNP was slightly elevated at 633. Initial lactate was 1.3 and decreased to 0.9 prior to admission. Respiratory panel was negative. CXR revealed a stable chest with left basilar scarring but no focal pneumonia. Due to his respiratory distress, he was given DuoNeb treatments, Solu-Medrol 125mg IV and ativan and placed on BiPAP with some improvement. Dr. Lopez was consulted and he was admitted into observation status for further evaluation and treatment. Objective Vital signs: Temperature 96.4 F L 06/11/17 08:00 Pulse Rate 86 06/11/17 08:00 Respiratory Rate 22 06/11/17 13:45 Blood Pressure 95/53 06/11/17 08:00 Pulse Oximetry 96 06/11/17 14:02 Rhythm: Normal Sinus Rhythm Height/Weight/BMI: Height 1.85 m Weight 124.9 kg Body Mass Index 41.5 - Constitutional Present: no acute distress, well nourished, well developed - Routine HEENT Exam Head: Present: normocephalic, atraumatic Comments: no thrush. Has what appears to be healing apthous ulcers to the soft palate and uvula. - Routine Respiratory Exam Present: CTA bilaterally. Absent: wheezes - Routine Cardiovascular Exam Present: RRR, no murmur - Routine Abdominal Exam Present: soft, non distended, non tender - Routine Extremities Exam Present: no edema, normal capillary refill Comments: skin changes likely from chronic venous stasis and DM - Routine Skin Exam Present: dry, warm - Routine Neurological Exam Present: alert, oriented X3 - Routine Lymphatic Exam Lymphatic: Absent: adenopathy - Routine Psychiatric Exam Present: normal affect, cooperative Hospital Course This is a general summary of the patient's hospital course. For more details refer to the complete medical record. Hospital course: 05/17/17 Admission Admit to observation status under the care of Dr. Lopez. Sepsis work up initiated in ED. Patient meeting SIRS criteria based on tachycardia, tachypnea and reported fevers at home without obvious source. Initial lactate was 1.4 with repeat lactate decreased to 0.9. Blood cultures pending. WBC stable at 5.0. CXR revealed left basilar scarring without focal pneumonia. Respiratory panel was negative. Patient was given DuoNeb treatments and Solu-Medrol 125mg IV in ED. Will continue respiratory care with DuoNeb treatments QID and Q6H PRN as well as Solu -Medrol 125mg IV Q6H. History of diabetes with A1c on 04/17/17 at 6.4%. Continue home medications and monitor blood sugars closely given treatment with steroids. Sliding scale insulin as indicated for hyperglycemia. Patient was placed on BiPAP in ED with improvement. Continue BiPAP as indicated. Ativan as needed for anxiety and agitation while on BiPAP. Will monitor closely on telemetry with continuous pulse oximetry. Oxygen as needed to maintain SAO2 between 90-95%, weaning as able to baseline of 5L. SCDs for DVT prophylaxis. Given sudden onset of dyspnea, will obtain CT angio chest for further evaluation of PE - results pending. NS at 100cc/hr for hydration given decreased oral intake as on BiPAP. Monitor daily weight closely for signs of fluid overload. Recheck labs in AM to monitor blood counts, electrolytes and renal function. Patient wishes to maintain FULL CODE status. Upon discharge, patient's care will be returned to his PCP, Dr. Odom. 05/18/17 1 of the 2 blood cultures obtained on admission is POSITIVE for Streptococcus. Night telehospitalist was notified and Rocephin 2g IV Q24 hours was initiated for antimicrobial coverage. Given new cough, will try and obtain a sputum culture. Mucinex for mucolytic effect. Ricola for cough. Given sudden onset of dyspnea, CT angio chest was obtained and revealed no PE but did note 2.2cm left lower lobe pulmonary nodule raising concern for primary lung malignancy and recommended further evaluation. Continue Solu-Medrol 125mg IV Q6 hours. Anticipate initiation of tapering in near future. Blood sugars remain elevated, most likely steroid effect, ranging from 160's-> 200. Continue sliding scale insulin. Given recent CT with contrast, will hold metformin and restart 05/19/17. Continue NS at 75cc/hr for hydration. Monitor urinary output and daily weight closely for signs of fluid over load. Oral intake is good. Consider discontinuation of fluids this afternoon. Ativan as needed for anxiety and agitation while on BiPAP. Troponins continue to trend up slowing - 0.015, 0.017, 0.029, 0.045 and 0.048 this morning. Will recheck troponin at 1030 and continue to monitor closely on telemetry. Patient denies chest pain. 05/19/17 Continue with Rocephin for antimicrobial coverage. With lungs still very tight and congested, will continue with Solu-Medrol 125mg IV q 6 hours. Continue Neb treatments and acapella. Encourage use of BiPAP as much as able to help his chronic hypercapnea. Stressed with about the importance of him not smoking. She understand. Will consult with Dr Ashby for pulm evaluation. Will discontinue IVF. May restart metformin this evening. Sugars with elevation secondary to steroids. Did give Diamox 500mg x1 this am for fluid motivation and to help minimize contraction alkalosis. 05/20 Continue with Rocephin for antimicrobial coverage. One blood culture was positive with streptococcus Viridans, Repeat BC were drawn this morning. Scheduled breathing tx, IV solu-medrol, as well as oxygen and Bipap Appreciate Dr Ashby consultation. Likely require bronchoscopy for biopsy of lung mass. Continue to monitor BGM remain elevated. Metformin was resumed as well as sliding scale insulin. Encourage PT/OT for strengthening 05/21 Resp failure --> ABG shows resp acidosis and he was placed on BiPAP with improvement in color. Repeat ABG shows pH 7.12, pCO2 106, pO2 185. CXR ordered. BG 230. Chest pain --> EKG shows ST changes and widened QRS, poss a-flutter; troponin pending. Dr. Govea consulted. He's had 2 NTG but remains very hypertensive with SBP 220s. Pt failed to respond to adenosine, and subsequently was cardioverted with conversion to sinus tach. Rapid response activated and Dr. Ramírez was at bedside x20 min. Transferred to CCU, where pt was met by Dr. Govea for evaluation. Continue treatment for resp status including steroids and Rocephin. 05/22 Patient remains on a ventilator requiring continuous sedation. Oxygenation borderline on 40% FiO2-oxygen flow increased to 60% by pulmonary earlier today. Continue triple antibiotics (cefepime, Levaquin, vancomycin) pending sputum culture due to extensive pneumonia on CT/chest x-ray yesterday-not present on initial films. Peak troponin 3.09 with diffuse T-wave changes; discussed with Dr. Govea and will require cardiac catheterization in the future. Continue heparin drip. Blood pressure is uncontrolled-clonidine patch initiated earlier, IV hydralazine added as needed for systolic pressures above 180. OG placed-resume statin, SSRI, atenolol, and aspirin. Assess gastric residuals today-anticipate beginning tube feedings tomorrow. Blood sugars remain elevated, off metformin at present. Increase basal insulin. 05/23 Patient remains on a ventilator requiring continuous sedation. Continue triple antibiotics (cefepime, Levaquin, vancomycin); suspect aspiration pneumonia-sputum culture normal charly. Extensive infiltrates on CT chest. Fluid balance positive-roughly 5 L over several days, weight up-diuresis today. Potassium supplemented IV earlier today. Peak troponin 3.09 with diffuse T-wave changes; discussed with Dr. Govea and will require cardiac catheterization in the future. Continue heparin drip. Blood pressure remains elevated but improved from yesterday with addition of clonidine patch and resumption of atenolol per OG. IV hydralazine available as needed for systolic pressures above 180. OG placed 05/22-low volume gastric output overnight and tolerating medications per OG. Will initiate tube feedings with low glycemic formula at 20 mL per hour overnight. Blood sugars remain elevated, off metformin at present and on steroids. Increase basal insulin to 40 units anticipating further increase in blood sugar with initiation of tube feedings. 05/24 Remains ventilator dependent. Steroids decreased. Vancomycin discontinued, continue Levaquin and cefepime for probable aspiration pneumonia and Streptococcus viridans positive blood culture. Continue diuresis, blood pressures elevated-atenolol increased and lisinopril initiated to improve control. Tolerating tube feedings at low-volume, converted pulmonary formula with goal of 80 mL per hour. Platelet count dropping, heparin discontinued and bivalirudin initiated. 05/25 Tolerating spontaneous breathing trial, steroids decreased. Continues to require continuous sedation. Lisinopril increased to 20 mg to improve blood pressure control. Platelet count down to 100K; HIT Ab pending. Fevers overnight without evidence source, leukocytosis/left shift resolved improved. Lines to be cultured. 05/26 FiO2 titrated to 40%; diuresing well-continue same. Spontaneous breathing trial planned for the morning with possible extubation at that time. Cardiac status stable, no further tachyarrhythmias. Trend to improved blood pressures. Cardiac catheterization planned in the future. Remains on bivalirudin. Platelet count 86K today, HIT Ab pending. Tube feedings at goal, blood sugars significantly elevated-NovoLog scheduled every 6 hours and when necessary. Chest x-ray improved, remains on Levaquin and cefepime for probable aspiration pneumonia. Blood cultures drawn yesterday negative thus far. 05/27 Extubated this afternoon, OG discontinued in conjunction with extubation. CPAP initiated for respiratory support. Speech therapy, PT, OT consultations tomorrow. Anticipate significant reduction in fluid volume off sedating medications and tube feedings--> Lasix dose decreased to twice daily administration. Platelet count stabilizing, HIT Ab negative. Intermittent fever, remains on antibiotics for possible aspiration pneumonia. Repeat blood cultures negative. 05/29 Extubated 05/27 Placed on CPAP with home equipment. Baseline 5L Currently tolerating NC, oxygen support as needed to maintain sats and mentation , pulm consulted and following CXR-stable Leukocytosis-likely 05/10 steroid effect, PCT negative, no fever x48 hours Cefepime and Levaquin currently. Vanc discontinued 05/24. Likely d/c abx today. Continue tube feeds and meds via [place] Peak troponin 3.09 on 05/21/17 with diffuse T-wave changes; heart cath 05/28-now on ASA and Bivalirudin 05/30 Extubated 05/27, continue Bipap/NC as per pulm Weaning steroids CXR-improving Cefepime, Levaquin, Vanc discontinued Continue Tamiflu Failed speech therapy, continue to re-eval Continue tube feeds and meds via [facility]hoff, feeds at 40ml/hr, goal of 80ml/hr Discontinue lasix, give 1L NS and re-eval fluid status Continue ASA and Bivalirudin per cardiology 05/31 Failed speech therapy, continue to re-eval Tube feedings and medications per Dobbhoff, goal 80 mL per hour tube feeding. Adjust insulin for hyperglycemia. 06/01 describes increased confusion/irritability-haloperidol initiated as needed. Converting to prednisone per Dobb[place] in a.m.; blood gas with mild hypoxia-FiO2 increased. Continue nutritional support per Dobbhoff; insulins again adjusted for persistent hyperglycemia. Chest pain described overnight, EKG unchanged. 06/02 Complaints of chest pain/dyspnea again this morning-resolved with position change. Intermittent confusion, haloperidol given twice overnight. Persistent hyperglycemia, scheduled short acting insulin adjusted further. Solu-Medrol discontinued, prednisone initiated per Dobbhoff this morning. Lactulose administered per [place]hoff for ongoing constipation; MiraLAX added with recommendation the patient take it orally. 06/03 Completed Tamiflu course today [place] out-circumstances unclear at present-but will give patient a trial of oral intake before reconsidering tube replacement. Insulin doses decreased significantly given discontinuation of tube feedings. Monitor Accu-Cheks every 2 hours overnight tonight. Blood sugars improved earlier today with insulin's that were increased yesterday however have eliminated scheduled short-acting insulin in light of discontinuation of tube feedings and decrease NovoLog from 60 to 30 units. Continue corrective scale. Anticipate further reductions in insulin with reduced prednisone dose Bladder training initiated although do not believe patient will be ready to DC [place] in the immediate future. Lengthy discussion with family this evening; patient transferring back to CCU for close observation following Dobbhoff removal. 06/04 Decrease amlodipine and lisinopril. Check orthostatics. 06/05 Recommended he reconsider SNU. 06/06 Decreased lisinopril. Clonidine and amlodipine DC'd Ready for dismissal but has refused placement and home would not be safe. 06/07 Soft diet with ground meats with regular liquids per speech therapy. Insulin doses decreased significantly given discontinuation of tube feedings. Blood sugars down. Now eating more. Monitor. Continue corrective scale. Continue ASA and Bivalirudin per cardiology; also on beta jesenia and atorvastatin. Continue to work with PT/OT/Speech On usual doses of Wellbutrin and citalopram. Has Ativan and haloperidol available if needed for anxiety or delirium. Had bladder training. [facility] dismissed when patient intended to leave AMA. Decreased lisinopril. Clonidine and amlodipine DC'd Ready for dismissal. Now accepting he needs to go to SNU or IRU. Awaiting insurance decision. 06/08/17 continue Bipap/NC-5 L as per pulm. P.o. prednisone continues to be tapered by pulm Continues on Atenolol. Continue Nystatin for thrush. Sore throat may be due to sinus drainage- humidity added to O2 today. 06/09/17 On nasal cannula 5 L. chest x-ray shows minimal nasal atelectasis. Insulin doses decreased-- Continue corrective scale. Patient will have to do better with work with PT/OT/Speech Continue Nystatin and viscous lidocaine for thrush 06/10/17 Sats 99% on 5L this am. Pt has been off O2 most of the afternoon and has stayed >90% on RA. Continues on p.o. prednisone taper per pulmonology. Resume metformin. Adjust insulins as needed. Ready for dismissal. Awaiting insurance decision. 06/11/17 Accepted by [facility] today. He has maintained sats >90% off of O2, but requests O2 "for comfort" Continues to c/o sore throat. No sign of thrush. Lidocaine/Maalox/Carafate "Magic Mouthwash" initiated. Vitals and labs stable. Continue Bipap at night and titrate O2 to keep sats >90%. Continue breathing txs. He is to wean Prednisone by 10mg q 3 days per pulm. Needs f-u OP with pulm (lung nodule) and cardiology (recent stent) Addendum hospitalist note: Seen and examined patient on same day as the above note physician's neurosurgical physician assistant Cathie Strong. Agree with summary, physical, assessment and plan. Comprehensive physical findings correlate to the above note. Subjective: patient continues to have multiple complaints weakness. He is upset that nursing had discontinued his supplemental oxygen but at the time was 95% on room air Objective: no apparent medical distress, obese with protuberant belly, chest has scant wheezing bilaterally but with good air entry, cardiovascular S1 S2 no adventitious murmurs rubs or gallops. Lower extremities showed no significant fluid overload Assessment and plan: patient will need continued physical therapy and motivation. His chronic respiratory failure appears to be significantly above prior stated baseline reported by the patient. Depression is a significant factor for this gentleman. Will require continuous motivation. Documented on Dragon speech to text. Efforts to correct speech recognition errors performed, but variation may exist Time spent with patient: discharge greater than 30 minutes Resuscitation Status: Full Code Discharge Plan - Discharge Disposition Discharge Date: 06/11/17 Disposition: 04 To [facility] Home/Facility *Condition: Stable Reason For Visit (Visit label in EMR): hypoxia,copd - Discharge Medications *Discharge Medications: New Acetaminophen [Tylenol] 325 - 650 mg PO Q5H PRN tab PRN Reason: Discomfort Aspirin *EC* [Ecotrin] 81 mg PO DAILY tab Atorvastatin [Lipitor] 80 mg PO HS tab Budesonide Inhalation [Pulmicort Inhalation] 0.5 mg AEROSOL RTBID vial Insulin Aspart [NovoLOG] 2 - 14 unit SQ SS PRN vial PRN Reason: Hyperglycemia Insulin Glargine,Hum.rec.anlog [Lantus] 30 unit SQ HS vial LORazepam [Ativan] 0.5 - 1 mg PO Q4H PRN #20 tab PRN Reason: Anxiety Magic Mouthwash [Magic Mouthwash (Lido/Maalox/Carafate)] 5 ml PO Q4H PRN ml PRN Reason: Sore Throat PredniSONE [Deltasone 20 mg] 30 mg PO WB tab Sodium Chloride [Deep Sea] 1 spray EA NOSTRIL PRN PRN spray PRN Reason: Congestion Sore Throat [place] [Chloraseptic [place]] 3 spray PO Q2H PRN bottle PRN Reason: Sore Throat Ticagrelor [Brilinta] 90 mg PO Q12H tab Metformin [Glucophage] 500 mg PO BIDWM tab Nitroglycerin [Nitrostat] 0.4 mg SL Q5M PRN tab PRN Reason: Chest Pain Albuterol/Ipratropium [Duoneb] 3 ml AEROSOL TID each PEG 3350 17gm PACKET [Miralax] 17 gm PO DAILY packet Continue Gabapentin 300 mg PO TID #0 cap Omeprazole 40 mg PO DAILY #0 cap buPROPion HCl [Bupropion HCl Sr] 150 mg PO BID Atenolol [Tenormin] 25 mg PO DAILY Citalopram [Celexa] 40 mg PO DAILY Discontinued Hydrocodone/APAP 7.5/325 [[place] 7.5/325] 1 tab PO BID Simvastatin 20 mg PO HS Itraconazole 200 mg PO BID Nitroglycerin [Nitrostat] 0.4 mg SL Q5MIN3 PRN PRN Reason: CHEST PAIN Albuterol/Ipratropium [Duoneb] 1 unit AEROSOL QID Metformin [Glucophage] 500 mg PO BIDWM Furosemide [Lasix] 20 mg PO DAILY Aspirin 81 mg PO DAILY predniSONE [Prednisone] 10 mg PO TAPERQD #18 tab LORazepam [Ativan] 0.5 mg PO Q4HR PRN #30 tab PRN Reason: Air Hunger/Anxiety Hydrocodone/APAP 7.5/325 [[place] 7.5/325] 1 tab PO Q6H PRN #10 tab PRN Reason: Pain - Discharge Packet/Instructions *Diet: Cardiac consistent carbohydrate. Sodium Restriction-2 g, calorie level 2400, fluid consistency-regular liquids, food consistency-mechanical soft *Activity: As tolerated. Encourage activity. *Pain Management/Treatment: n/a *Wound Care: n/a Additional Instructions: Prednisone should be tapered by 10mg every 3 days. *Expected Signs/Symptoms: n/a *Notify Physician if: You develop shortness or breath, chest pain or fever *During Business Hours Contact: Your nurse at [facility] *After Business Hours Contact: Your nurse at [facility] *Pending Lab/Results: No Pending Lab - Referrals/Follow Up *Referrals/Follow Up: Zak Odom MD [Physician] - 1 Week Donny Ashby MD [Physician] - Francis Govea MD [Physician] - - Patient Handouts Patient Handouts: COPD (Chronic Obstructive Pulmonary Disease) (GEN), Hypoxia ( GEN) - Dismissal Complete Discharge Instructions are:: Complete Physician Narrative - Narrative Attestation Narrative: Date: 06/11/17 Time: 9505
== END 2017-06-11 16:45 | DRG 853 ==
LOC: ED 05:12 → MED 05:12 → SUATTDRO 05-18 10:38 → CCU 05-21 08:38 → MED 05-31 12:54 → CCU 06-03 21:45 → SRG 06-04 16:45
PROVIDERS: ADMIT Hospitalist; ATTEND Family Medicine